=== PATIENT | female | born 1940 | race Caucasian/White ===

== ENCOUNTER 2018-08-08 06:10 | Day surgery (SDC) | payer OTHER, MEDICARE ==
[2018-08-07 14:39] LABS: Absolute Lymphocytes (CBC) 1.3 K/uL (0.7-4.9); Absolute Monocytes 0.5 K/uL (0.1-1.3); Absolute Neutrophil 4.9 K/uL (1.8-8.0); Basophils % 0.4 % (0-1.3); Eosinophils % 1.8 % (0-4.4); Hematocrit 37.9 % (36.0-45.0); Lymphocytes % 18.5 % (15.3-44.8); MCH 32.2 pg (27.0-35.0); MCV 92.9 fL (80-100); MPV 7.7 fL (7.6-11.3); Monocytes % 7.8 % (3.3-12.3); RBC Red Blood Cell Count 4.08 M/uL (3.86-4.86)
[2018-08-07 14:47] LABS: Protime INR 1.03
--- OUTSIDE RECORDS SUMMARY | 2018-08-08 06:20 | XMS REPORT | Continuity of Care Document ---
:1940 Author Organization Interface Problems Problem Status Onset Classification Date Comments Source Date Reported ISCHEMIC STROKE Active [address] LFLT TRANSFER#[id number] Atrial fibrillation Active Problem 06/17/2017 [place] [facility] Consult Personal history of Active Problem 06/17/2017 [place] transient ischemic Cardiology attack [TIA], and Consult cerebral infarction without residual deficits Palpitations Active Problem 06/17/2017 [place] [facility] Transient cerebral Active Problem 06/17/2017 [place] ischemic attack, Cardiology unspecified Consult Bradycardia, Active Problem 06/17/2017 [place] unspecified Cardiology Consult Personal history of Active Problem 06/17/2017 [place] transient ischemic Cardiology attack , and Consult cerebral infarction without residual deficits History of falling Active Problem 06/17/2017 [place] [facility] Consult Abnormal Active Problem 06/17/2017 [place] electrocardiogram Cardiology [ECG] [EKG] Consult Morbid obesity due Active Problem 06/17/2017 [place] to excess calories Cardiology Consult Arthropathy, Active Problem 06/17/2017 [place] unspecified Cardiology Consult Major depressive Active Problem 06/17/2017 [place] disorder, single Cardiology episode, unspecified Consult Chest pain, Active Problem 06/17/2017 [place] unspecified Cardiology Consult Shortness of breath Active Problem 06/17/2017 [place] [facility] Consult Constipation, Active Problem 06/17/2017 [place] unspecified Cardiology Consult Hypothyroidism, Active Problem 06/17/2017 [place] unspecified Cardiology Consult Hyperlipidemia, Active Problem 06/17/2017 [place] unspecified Cardiology Consult Chronic kidney Active Problem 06/17/2017 [place] disease, unspecified Cardiology Consult Insomnia, Active Problem 06/17/2017 [place] unspecified Cardiology Consult Nonrheumatic mitral Active Problem 06/17/2017 [place] insufficiency Cardiology Consult Paroxysmal atrial Active Problem 06/17/2017 [place] fibrillation Cardiology Consult 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 Essential Active Problem 06/17/2017 [place] hypertension Cardiology Consult Chronic kidney Active Problem 06/17/2017 [place] disease, Stage III Cardiology Consult Congestive 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 [place] failure, unspecified Cardiology Consult 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 [place] and chronic kidney Cardiology disease with heart Consult failure and stage 1 through stage 4 chronic kidney disease, or unspecified chronic kidney disease Hypertension Active Problem 06/17/2017 [place] essential benign Cardiology Consult 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 [place] stenosis of carotid Cardiology artery without Consult mention of cerebral infarction Insomnia, Active Problem 06/17/2017 [place] unspecified Cardiology Consult Mitral valve Active Problem 06/17/2017 [place] disorders Cardiology Consult Other and Active Problem 06/17/2017 [place] unspecified Cardiology hyperlipidemia Consult Unspecified Active Problem 06/17/2017 [place] hypothyroidism Cardiology Consult Obesity, unspecified Active Problem 06/17/2017 [place] [facility] Consult Other malaise and Active Problem 06/17/2017 [place] fatigue Cardiology Consult Shortness of breath Active Problem 06/17/2017 [place] [facility] Consult Chest pain, Active Problem 06/17/2017 [place] unspecified Cardiology Consult Chronic diastolic Active Problem 06/17/2017 [place] heart failure Cardiology Consult Unspecified Active Problem 06/17/2017 [place] constipation Cardiology Consult Impaired fasting Active Problem 06/17/2017 [place] blood sugar Cardiology Consult Overactive bladder Active Problem 06/17/2017 [place] [facility] Consult Anxiety disorder, Active Problem 06/17/2017 [place] unspecified Cardiology Consult Incontinence without Active Problem 06/17/2017 [place] sensory awareness Cardiology Consult Encounter for Active Problem 06/17/2017 [place] screening for Cardiology diabetes mellitus Consult Retention of urine, Active Problem 06/17/2017 [place] unspecified Cardiology Consult Hypertensive 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 [place] and chronic kidney Cardiology disease, benign, Consult with heart failure and with chronic kidney disease stage I through stage IV, or unspecified Depressive disorder, Active Problem 06/17/2017 [place] not elsewhere Cardiology classified Consult Urinary tract Active Problem 06/17/2017 [place] infection, site not Cardiology specified Consult Unspecified Active Problem 06/17/2017 [place] arthropathy, site Cardiology unspecified Consult Frequency of Active Problem 06/17/2017 [place] micturition Cardiology Consult Morbid obesity Active Problem 06/17/2017 [place] [facility] Consult Female genuine Active Problem 06/17/2017 [place] stress incontinence Cardiology Consult Nonspecific abnormal Active Problem 06/17/2017 [place] electrocardiogram Cardiology (EKG) Consult Palpitations Active Problem 06/17/2017 [place] [facility] Consult Other specified Active Problem 06/17/2017 [place] cardiac dysrhythmias Cardiology Consult Upper respiratory Active Problem 06/17/2017 [place] tract Cardiology hypersensitivity Consult reaction, site unspecified Unspecified Active Problem 06/17/2017 [place] transient cerebral Cardiology ischemia Consult Personal history of Active Problem 06/17/2017 [place] fall Cardiology Consult Acute upper Active Problem 06/17/2017 [place] respiratory Cardiology infections of Consult unspecified site Acid reflux disease Resolved Problem 11/28/2014 [facility] High cholesterol Resolved Problem 11/28/2014 [facility] Hyperlipidemia Resolved Problem 11/28/2014 [facility] Hypertension Resolved Problem 11/28/2014 [facility] Hypothyroidism Resolved Problem 11/28/2014 [facility] CVA Active [facility] Medications Medication Details Route Status Patient Ordering Order Source Instructions Provider Date Eliquis 1 tablet Orally Active 5 MG Orally [facility] [place] twice a day 2016 Cardiology Consult Edarbyclor 1 tablet Orally Active 40-25 MG [facility] [place] Orally Once a 2017 Cardiology day Consult Edarbyclor 1 tablet Orally Active 40-25 MG [facility] [place] Orally Once a 2016 Cardiology day Consult Dofetilide 1 capsule Orally Active 500 MCG [facility] [place] Orally Twice 2017 Cardiology a day Consult Cipro 1 tablet Orally Active 500 MG Orally [facility] [place] Twice a day 2015 Cardiology Consult Warfarin 5 mg, 1 tab, Inactive [facility] Route: PO, 2014 Medical Drug form: Center TAB, Daily, Dosing Weight 114.318, kg, Start date: 11/26/14 12:03:00, Duration: 1 doses or times, Stop date: 11/26/14 12:03:00Notes : Nurse to ensure documentation of patient education per anticoagulati on policy. Avoid large intake of vitamin-K containing foods diet. (Same As: Coumadin) valsartan 40 mg 40 mg=1 tab, Active 11/26[facility] oral tablet PO, Q12H, # 2015 Medical 60 tab, 3 Center Refill(s) atorvastatin 40 40 mg=1 tab, Active 11/26[facility] [place] mg oral tablet PO, Bedtime, 2015 Medical # 30 tab, 3 Center Refill(s) clopidogrel 75 mg 75 mg=1 tab, Active 11/26[facility] oral tablet PO, Daily, # 2015 Medical 30 tab, 0 Center Refill(s) warfarin 5 mg 5 mg, PO, Active 11/26[facility] oral tablet Daily, # 2 2015 Medical tab, 0 Center Refill(s) Atenolol 25 MG 12.5 mg=0.5 Active 11/26[facility] Oral Tablet tab, PO, 2015 Medical Daily, 0 Center Refill(s) valsartan 40 mg, 1 tab, Inactive [place] Route: PO, 2014 Medical Drug form: [place] TAB, Q12H, Dosing Weight 114.318, kg, Start date: 11/26/14 9:00:00, Duration: 30 day, Stop date: 12/25/14 21:00:00Notes : Same as [place] Protonix 40 mg, 1 tab, No Longer [place] Route: PO, Active 2014 Medical Drug form: [place] ECTAB, Before Dinner, Start date: 11/25/14 16:30:00, Duration: 30 day, Stop date: 12/24/14 16:30:00Notes : Tablet should not be chewed or crushed. (Same as: Protonix) Atenolol 12.5 mg, 0.5 No Longer [place] tab, Route: Active 2014 Medical PO, Drug Center form: TAB, Daily, Dosing Weight 114.318, kg, Start date: 11/25/14 9:00:00, Duration: 30 day, Stop date: 12/24/14 9:00:00Notes: (Same As:Tenormin) valsartan 320 mg, No Longer [facility] Route: PO, Active 2014 Medical Drug form: [place] TAB, Daily, Dosing Weight 114.318, kg, Start date: 11/25/14 9:00:00, Duration: 30 day, Stop date: 12/24/14 9:00:00 Thyroxine 100 No Longer [facility] microgram, 1 Active 2014 Medical tab, Route: [place] PO, Drug form: TAB, Q630AM, Dosing Weight 114.318, kg, Start date: 11/25/14 6:30:00, Duration: 30 day, Stop date: 12/24/14 6:30:00Notes: Take 1 hour before or 2 hours after meal; Enteral feeds may interefere with the absorption of this medication. (Same as:Levothroid , Synthroid) heparin, porcine 7,500 unit, No Longer [place] 1.5 mL, Active 2014 Medical Route: SUB-Q, [place] Drug form: INJ, Q8H, Dosing Weight 114.318, kg, Start date: 11/24/14 22:00:00, Duration: 30 day, Stop date: 12/24/14 16:00:00Notes : porcine heparin Plavix 75 mg, 1 tab, No Longer [facility] Route: PO, Active 2014 Medical Drug form: Center TAB, Daily, Dosing Weight 114.318, kg, Start date: 11/24/14 22:00:00, Duration: 30 day, Stop date: 12/24/14 9:00:00Notes: (Same As: Plavix) Tylenol 650 mg, 2 No Longer [facility] tab, Route: Active 2014 Medical PO, Drug Center form: TAB, Q6H, Dosing Weight 114.318, kg, PRN Pain, Start date: 11/24/14 21:16:00, Duration: 30 day, Stop date: 12/24/14 21:15:00Notes : Do not exceed 4 gm/day. (Same as: Tylenol) atorvastatin 40 mg, 1 tab, No Longer [facility] Route: PO, Active 2014 Medical Drug form: Center TAB, Bedtime, kg, Start date: 11/24/14 21:00:00, Duration: 30 day, Stop date: 12/23/14 21:00:00Notes : (Same as: Lipitor) Bupropion 150 mg, 1 No Longer [facility] tab, Route: Active 2014 Medical PO, Drug Center form: ERTAB, BID, Dosing Weight 114.318, kg, Start date: 11/24/14 17:00:00, Duration: 30 day, Stop date: 12/24/14 9:00:00Notes: (Do not crush) (Same As: Wellbutrin SR) valsartan 40 mg, Route: Inactive [facility] PO, BID, 2014 Medical Dosing Weight Center 114.318, kg, Start date: 11/24/14 17:00:00, Duration: 30 day, Stop date: 12/24/14 9:00:00 Triiodothyronine 10 microgram, No Longer [facility] 2 tab, Route: Active 2014 Medical PO, Drug Center form: TAB, QAM, Dosing Weight 114.318, kg, Priority: NOW, Start date: 11/24/14 15:35:00, Duration: 30 day, Stop date: 12/24/14 9:00:00Notes: (Same as: Cytomel) Atenolol 100 MG 50 mg=0.5 No Longer [facility] Oral Tablet tab, PO, BID, Active 2015 Medical # 30 tab, 0 Center Refill(s) pravastatin 40 mg 40 mg=1 tab, No Longer [facility] oral tablet PO, Bedtime, Active 2015 Medical # 30 tab, 0 Center Refill(s) Furosemide 40 MG 40 mg=1 tab, No Longer [place] Oral Tablet PO, Daily, # Active 2015 Medical [Lasix] 30 tab, 0 Center Refill(s) spironolactone 25 25 mg=1 tab, No Longer [facility] mg oral tablet PO, Daily, # Active 2014 Medical 60 tab, 0 Center Refill(s) Potassium 20 mEq=1 tab, No Longer [place] Chloride 20 MEQ PO, Daily, 0 Active 2015 Medical Extended Release Refill(s) Center Tablet omeprazole 40 mg 40 mg=1 cap, Active [place] oral delayed PO, Daily, # 2015 Medical release capsule 30 cap, 0 Center Refill(s) Metolazone 5 MG 5 mg=1 tab, No Longer [facility] Oral Tablet PO, Daily, # Active 2015 Medical 30 tab, 0 Center Refill(s) liothyronine 5 10 Active [facility] mcg oral tablet microgram=2 2014 Medical tab, PO, QAM, Center # 30 tab, 0 Refill(s) Fenofibrate 160 160 mg=1 tab, No Longer [facility] MG Oral Tablet PO, Daily, # Active 2015 Medical 30 tab, 0 Center Refill(s) Zolpidem tartrate 10 mg=1 tab, Active [place] 10 MG Oral Tablet PO, Bedtime, 2015 Medical [Ambien] for sleep, 0 Center Refill(s) buPROPion 150 150 mg=1 tab, Active [facility] mg/24 hours oral PO, BID, # 30 2015 Medical extended release tab, 0 Center tablet Refill(s) Albuterol 0.09 2 puff, No Longer [facility] MG/ACTUAT Metered INHALATION, Active 2015 Medical Dose Inhaler Q6H, as Center [Ventolin] needed for wheezing, # 17 gm, 0 Refill(s) levothyroxine 100 100 Active [place] mcg (0.1 mg) oral microgram=1 2014 Medical tablet tab, PO, QA, Center # 30 tab, 0 Refill(s) doxazosin 4 mg 4 mg=1 tab, Active [facility] oral tablet PO, Daily, # 2015 Medical 30 tab, 0 Center Refill(s) valsartan 320 mg 320 mg=1 tab, No Longer [facility] oral tablet PO, Daily, # Active 2014 Medical 30 tab, 0 Center Refill(s) Triiodothyronine 5 microgram, Inactive [facility] 1 tab, Route: 2014 Medical PO, Drug Center form: TAB, Daily, Dosing Weight 114.318, kg, Start date: 11/24/14 14:09:00, Duration: 30 day, Stop date: 12/24/14 9:00:00Notes: (Same as: Cytomel) Reglan 5 mg, 1 mL, Inactive [facility] Route: IV, 2014 Medical Drug form: [place] INJ, ONCE, Dosing Weight 114.318, kg, Start date: 11/24/14 11:44:00, Stop date: 11/24/14 11:44:00Notes : (Same as: Reglan) Magnesium Sulfate 2 gm, 50 mL, Inactive [facility] Route: IVPB, 2014 Medical Drug form: [place] INJ, ONCE, Dosing Weight 114.318, kg, Total dose=2 gm, Start date: 11/24/14 11:27:00, Duration: 1 doses or times, Stop date: 11/24/14 11:27:00 pneumococcal 0.5 ml, Inactive [facility] capsular Route: IM, 2014 Medical polysaccharide Drug Form: [place] type 1 vaccine / INJ, Daily, pneumococcal Start date: capsular 11/24/14 polysaccharide 9:00:00, Stop type 10A vaccine date: / pneumococcal 11/24/14 capsular 23:59:00Notes polysaccharide : (Same as: type 11A vaccine Pneumovax 23) / pneumococcal Refrigerate capsular polysaccharide type 12F vaccine / pneumococcal capsular polysacchar Saline Flush 0.9% 10 ml, Route: No Longer [facility] IVP, Drug Active 2014 Medical Form: INJ, Center kg, Q12H, Start date: 11/24/14 9:00:00, Duration: 30 day, Stop date: 12/23/14 21:00:00Notes : (Same as: BD Posiflush) Versed 0.5 mg, 0.5 Inactive [facility] mL, Route: 2014 Medical IVP, Drug Center form: INJ, ONCE, Dosing Weight 114.318, kg, Start date: 11/24/14 8:31:00, Stop date: 11/24/14 8:31:00Notes: (Same as: Versed) Pravastatin 40 mg=1 tab, Inactive [facility] Sodium 40 MG Oral PO, Bedtime, 2014 Medical Tablet # 30 tab, 0 Center [Pravachol] Refill(s) aspirin 0 Refill(s) Inactive [facility] 2014 Medical Center Fenofibrate 160 160 mg=1 tab, Inactive [facility] MG Oral Tablet PO, Daily, # 2015 Medical 30 tab, 0 Center Refill(s) Atenolol 0 Refill(s) Inactive [facility] 2014 [facility] valsartan 320 mg 320 mg=1 tab, Inactive [facility] oral tablet PO, Daily, # 2015 Medical 30 tab, 0 Center Refill(s) Potassium 0 Refill(s) Inactive [facility] Chloride 20 MEQ 2014 Medical Extended Release Center Tablet Metolazone 5 MG 5 mg=1 tab, Inactive [facility] Oral Tablet PO, Daily, # 2015 Medical 30 tab, 0 Center Refill(s) Furosemide 40 MG 40 mg=1 tab, Inactive [facility] Oral Tablet PO, Daily, # 2015 Medical [Lasix] 30 tab, 0 Center Refill(s) liothyronine 5 5 microgram=1 Inactive [facility] mcg oral tablet tab, PO, 2014 Medical Daily, # 30 Center tab, 0 Refill(s) Omeprazole 0 Refill(s) Inactive [facility] 2014 Medical Center spironolactone 25 0 Refill(s) Inactive [facility] mg oral tablet 2014 [facility] Center Zofran 4 mg, 2 mL, Inactive [facility] Route: IVP, 2014 Medical Drug form: Center INJ, ONCE, Dosing Weight 114.318, kg, Start date: 11/24/14 7:08:00, Stop date: 11/24/14 7:08:00Notes: (Same as: Zofran) Tylenol 650 mg, 2 Inactive [facility] tab, Route: 2015 Medical PO, Drug Center form: TAB, Q6H, kg, PRN Pain 1-3/Temp > 99.5 F, Start date: 11/24/14 0:48:00, Stop date: 12/24/14 0:47:00Notes: Do not exceed 4 gm/day. (Same as: Tylenol) Sodium Chloride 1,000 mL, No Longer [facility] 0.154 MEQ/ML Rate: 75 Active 2014 Medical Injectable ml/hr, Infuse Center Solution over: 13.3 hr, Route: IV, Total Volume: 1,000, Start date: 11/23/14 23:06:00, Duration: 30 day, Stop date: 12/23/14 23:05:00 Saline Flush 0.9% 10 ml, Route: No Longer [facility] IVP, Drug Active 2014 Medical Form: INJ, Center kg, PRN, PRN Line Flush, Start date: 11/23/14 22:58:00, Duration: 30 day, Stop date: 12/23/14 22:57:00Notes : (Same as: BD Posiflush) Acetaminophen 650 mg, 2 No Longer [facility] tab, Route: Active 2014 Medical PO, Drug Center form: TAB, Q4H, kg, PRN Pain 1-3/Temp > 99.5 F, Start date: 11/23/14 22:58:00, Duration: 30 day, Stop date: 12/23/14 22:57:00Notes : Do not exceed 4 gm/day. (Same as: Tylenol) Doxazosin TAKE ONE NA No Longer 4 Ali Chávez Mesylate TABLET BY Active Cardiology MOUTH DAILY Consult Tikosyn TAKE ONE NA No Longer 500 Ali Chávez CAPSULE BY Active Cardiology MOUTH TWICE A Consult DAY Allergies, Adverse Reactions, Alerts Substance Category Reaction Severity Reaction Status Date Comments Source type Reported Immunizations Immunization Date Given Site Status Last Updated Comments Source pneumococcal 11/24/2014 [facility] Results Order Name Results Value Reference Date Interpretation Comments Source Range CHEM PANEL Magnesium Lvl 2.1 mg/dL 1.8 - 2.4 11/26 [facility] CHEM PANEL Phosphorus 2.8 mg/dL 2.5 - 4.5 11/26 2014 [facility] CHEM PANEL eGFR 40 11/26 1Result Comment: The eGFR is calculated using the CKD-EPI formula. In most young, healthy individuals the eGFR will be >90 mL/ min/1.73m2. The eGFR declines with age. An eGFR of 60-89 may be normal in [facility] mL/min/1.7 some populations, particularly the elderly, for whom the CKD-EPI formula has not been extensively validated. Use of the eGFR is not recommended in the following populations: [address] Individuals with unstable creatinine concentrations, including patients and those with serious co-morbid conditions. Patients with extremes in muscle mass or diet. The data above are obtained from the National Kidney Disease Education Program (NKDEP) which additionally recommends that when the eGFR is used in patients with extremes of body mass index for purposes of drug dosing, the eGFR should be multiplied by the estimated BMI. CHEM PANEL Glucose Lvl 80 mg/dL 70 - 99 11/26 4Interpretive Data: Adult reference range values reflect the clinical guidelines of the [place] [employer]. [facility] CHEM PANEL BUN 18 mg/dL 7 - 22 11/26 [facility] CHEM PANEL Creatinine 1.3 mg/dL 0.5 - 1.4 11/26 [facility] CHEM PANEL Sodium Lvl 136 meq/L 135 - 145 11/26 [facility] CHEM PANEL Chloride Lvl 102 meq/L 95 - 109 11/26 [facility] CHEM PANEL Potassium Lvl 3.5 meq/L 3.5 - 5.1 11/26 [facility] CHEM PANEL Calcium Lvl 9.0 mg/dL 8.5 - 10.5 11/26 [facility] CHEM PANEL CO2 25 meq/L 24 - 32 11/26 [facility] CHEM PANEL AGAP 12.5 meq/L 10.0 - 11/26 20.0 [facility] HEMATOLOGY RDW 13.1 % 11.5 - 11/26 14.5 /2014 [facility] HEMATOLOGY MCH 32.4 pg 27.0 - 02/ 31.0 /2014 [facility] HEMATOLOGY MCV 93.5 fL 80.0 - 02 98.0 /2014 [facility] HEMATOLOGY MCHC 34.6 g/dL 32.0 - 02/ 36.0 /2014 [facility] HEMATOLOGY Hct 33.6 % 36.0 - / 48.0 /2014 [facility] HEMATOLOGY Hgb 11.6 g/dL 12.0 - 02 16.0 /2014 [facility] HEMATOLOGY RBC 3.60 M/CMM 4.20 - 02 5.40 /2014 [facility] HEMATOLOGY WBC 4.6 K/CMM 3.7 - 10.4 11/26 [facility] HEMATOLOGY MPV 8.3 fL 7.4 - 10.4 11/[address] [place] [address] HEMATOLOGY Platelet 149 K/CMM 133 - [address] HEMATOLOGY Segs 62.3 % 45.0 - 02 [facility] 75.0 [facility] HEMATOLOGY Lymphocytes # 1.2 K/CMM 1.0 - 5.5 02 [facility] HEMATOLOGY Monocytes # 0.4 K/CMM 0.0 - 0.[address] [place] [address] HEMATOLOGY Eosinophils 3.0 % 0.0 - 4.0 02 [facility] HEMATOLOGY Lymphocytes 26.2 % 20.0 - 11/26 [facility] 40.0 [facility] HEMATOLOGY Segs-Bands # 2.9 K/CMM 1.5 - 8.1 11/[address] HEMATOLOGY Basophils 0.5 % 0.0 - 1.0 02/ [facility] HEMATOLOGY Monocytes 8.0 % 2.0 - 12.0 11/26 [facility] [address] [place] [address] HEMATOLOGY Eosinophils # 0.1 K/CMM 0.0 - 0.5 11/[address] CHEM PANEL Phosphorus 3.1 mg/dL 2.5 - 4.5 11/[address] CHEM PANEL eGFR 34 02 2Result Comment: The eGFR is calculated using the CKD-EPI formula. In most young, healthy individuals the eGFR will be >90 mL/ min/1.73m2. The eGFR declines with age. An eGFR of 60-89 may be normal in [facility] mL/min/1.7 /2014 some populations, particularly the elderly, for whom the CKD-EPI formula has not been extensively validated. Use of the eGFR is not recommended in the following populations: [address] Individuals with unstable creatinine concentrations, including patients and those with serious co-morbid conditions. Patients with extremes in muscle mass or diet. The data above are obtained from the National Kidney Disease Education Program (NKDEP) which additionally recommends that when the eGFR is used in patients with extremes of body mass index for purposes of drug dosing, the eGFR should be multiplied by the estimated BMI. CHEM PANEL CO2 25 meq/L 24 - 32 11/25 [facility] CHEM PANEL AGAP 12.8 meq/L 10.0 - 11/25 20.0 [facility] CHEM PANEL Calcium Lvl 8.7 mg/dL 8.5 - 10.5 11/25 2014 [facility] CHEM PANEL Chloride Lvl 104 meq/L 95 - 109 11/25 2014 [facility] CHEM PANEL BUN 23 mg/dL 7 - 22 11/25 [facility] CHEM PANEL Sodium Lvl 138 meq/L 135 - 145 11/25 [facility] CHEM PANEL Glucose Lvl 82 mg/dL 70 - 99 11/25 5Interpretive Data: Adult reference range values reflect the clinical guidelines of the [place] [employer]. [facility] CHEM PANEL Creatinine 1.5 mg/dL 0.5 - 1.4 11/25 [facility] CHEM PANEL Potassium Lvl 3.8 meq/L 3.5 - 5.1 11/25 [facility] CHEM PANEL Magnesium Lvl 2.7 mg/dL 1.8 - 2.4 11/25 [facility] HEMATOLOGY Segs 63.1 % 45.0 - 11/25 75.0 [facility] HEMATOLOGY Lymphocytes 27.1 % 20.0 - 02 40.0 [facility] HEMATOLOGY Monocytes 7.2 % 2.0 - 12.0 11/25 2014 [facility] HEMATOLOGY Eosinophils # 0.1 K/CMM 0.0 - 0.5 11/25 [facility] HEMATOLOGY Eosinophils 2.2 % 0.0 - 4.0 11/25 [facility] HEMATOLOGY Basophils 0.4 % 0.0 - 1.0 11/25 [facility] HEMATOLOGY Segs-Bands # 3.1 K/CMM 1.5 - 8.1 11/25 [facility] HEMATOLOGY Monocytes # 0.3 K/CMM 0.0 - 0.8 11/25 [facility] HEMATOLOGY Lymphocytes # 1.3 K/CMM 1.0 - 5.5 11/25 [facility] HEMATOLOGY MPV 8.5 fL 7.4 - 10.4 11/25 [facility] HEMATOLOGY MCH 31.6 pg 27.0 - 11/25 31.0 [facility] HEMATOLOGY MCV 93.4 fL 80.0 - 11/25 [facility] 98.0 /2014 [facility] HEMATOLOGY Hct 33.2 % 36.0 - 11/25 [facility] 48.0 /2014 [facility] HEMATOLOGY Platelet 151 K/CMM 133 - 450 11/25 [facility] HEMATOLOGY RDW 13.1 % 11.5 - 11/25 14.5 [facility] HEMATOLOGY MCHC 33.8 g/dL 32.0 - 11/25 36.0 /2014 [facility] HEMATOLOGY Hgb 11.2 g/dL 12.0 - 02 16.0 [facility] HEMATOLOGY RBC 3.56 M/CMM 4.20 - 11/25 5.40 /2014 [facility] HEMATOLOGY WBC 4.9 K/CMM 3.7 - 10.4 11/25 [facility] HEMATOLOGY INR 1.14 0.85 - 11/25 7Interpretive Data: RECOMMENDED RANGES FOR PROTIME INR: [facility] 1.17 2.0-3.0 for most medical and surgical thromboembolic states. Medical 2.5-3.5 for artificial heart valves and recurrent embolism. Center INR SHOULD BE USED ONLY FOR PATIENTS ON STABLE ANTICOAGULANT THERAPY. HEMATOLOGY PTT 28.5 s 22.9 - 02 9Interpretive [facility] 35.8 /2014 Data: Heparin [facility] Therapeutic Center Range: 57 - 92 Seconds HEMATOLOGY PT 14.7 s 12.0 - 02/03 [facility] 14.7 /2014 [facility] THYROID TSH 3.190 0.360 - 11/25 [facility] PANEL uIU/mL 3.740 /2014 Medical Center Neck wo Neck wo EXAM: MRI BRAIN 11/24 - [facility] contrast contrast MRA /2014 - Medical MRA EXAM: MRA BRAIN This report was dictated by a Commercial Housekeeper/ Fellow. I have personally reviewed the images as Center well as the Resident's interpretation and agree with the findings. EXAM: MRA NECK Read by: Katherine Joaquin DO Resident: Katherine Joaquin DO Dictated Date/time: 11/24/14 10:59 Electronically Signed by: Elva Jurado MD 11/24/14 14:56 FINAL REPORT DATE: 11/24/2014 COMPARISON: None available. CLINICAL INDICATION: Aphasia TECHNIQUE: Multiecho multiplanar images were obtained without contrast including axial FLAIR, T2 gradient echo and diffusion weighted imaging with ADC mapping. 3D MRA time of flight images of the head a nd neck were also provided. 3D MIP (maximum intensity projection) reconstructions were performed. FINDINGS: Confluent area of restricted diffusion with subtle corresponding T2/FLAIR hyperintensity consistent with acute infarct is seen within the left insula and left temporoparietal lobe. There is evidence of slow flow within the left MCA. Few micro hemorrhages are seen within the right thalamus and left posterior temporal lobe, likely hypertensive in nature. The ventricles and sulci are normal in size. The basal cisterns are patent. No extra-axial collection is present. MRA of the brain demonstrates occlusion of a left M2 segment branch. The remainder of the cerebral arteries are normal in caliber. No aneurysm is identified. Right type DIRECTOR RISK is present, a normal variant. There is normal origin of the 3 great vessels from the aortic arch. The carotid bifurcations in the neck are normal. There is no carotid stenosis. The vertebral arteries are normal. The basilar artery i s intact. 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 IMPRESSION: 1. 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 2. Occlusion of a left M2 segment branch. 3. Normal MRA of the neck. Brain wo Brain wo EXAM: MRI BRAIN 11/24 - [facility] contrast contrast MRA /2014 - Medical MRA EXAM: MRA BRAIN This report was dictated by a Commercial Housekeeper/ Fellow. I have personally reviewed the images as Center well as the Resident's interpretation and agree with the findings. EXAM: MRA NECK Read by: Katherine Joaquin DO Resident: Katherine Joaquin DO Dictated Date/time: 11/24/14 10:59 Electronically Signed by: Elva Jurado MD 11/24/14 14:56 FINAL REPORT DATE: 11/24/2014 COMPARISON: None available. CLINICAL INDICATION: Aphasia TECHNIQUE: Multiecho multiplanar images were obtained without contrast including axial FLAIR, T2 gradient echo and diffusion weighted imaging with ADC mapping. 3D MRA time of flight images of the head a nd neck were also provided. 3D MIP (maximum intensity projection) reconstructions were performed. FINDINGS: Confluent area of restricted diffusion with subtle corresponding T2/FLAIR hyperintensity consistent with acute infarct is seen within the left insula and left temporoparietal lobe. There is evidence of slow flow within the left MCA. Few micro hemorrhages are seen within the right thalamus and left posterior temporal lobe, likely hypertensive in nature. The ventricles and sulci are normal in size. The basal cisterns are patent. No extra-axial collection is present. MRA of the brain demonstrates occlusion of a left M2 segment branch. The remainder of the cerebral arteries are normal in caliber. No aneurysm is identified. Right type DIRECTOR RISK is present, a normal variant. There is normal origin of the 3 great vessels from the aortic arch. The carotid bifurcations in the neck are normal. There is no carotid stenosis. The vertebral arteries are normal. The basilar artery i s intact. 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 IMPRESSION: 1. 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 2. Occlusion of a left M2 segment branch. 3. Normal MRA of the neck. Brain wo Brain wo EXAM: MRI BRAIN 11/24 - [facility] contrast contrast MRI /2014 - Medical MRI EXAM: MRA BRAIN This report was dictated by a Commercial Housekeeper/ Fellow. I have personally reviewed the images as Center well as the Resident's interpretation and agree with the findings. EXAM: MRA NECK Read by: Katherine Joaquin DO Resident: Katherine Joauqin DO Dictated Date/time: 11/24/14 10:42 Electronically Signed by: Elva Jurado MD 11/25/14 10:45 FINAL REPORT DATE: 11/24/2014 COMPARISON: None available. CLINICAL INDICATION: Aphasia TECHNIQUE: Multiecho multiplanar images were obtained without contrast including axial FLAIR, T2 gradient echo and diffusion weighted imaging with ADC mapping. 3D MRA time of flight images of the head a nd neck were also provided. 3D MIP (maximum intensity projection) reconstructions were performed. FINDINGS: Confluent area of restricted diffusion with subtle corresponding T2/FLAIR hyperintensity consistent with acute infarct is seen within the left insula and left temporoparietal lobe. There is evidence of slow flow within the left MCA. Few micro hemorrhages are seen within the right thalamus and left posterior temporal lobe, likely hypertensive in nature. The ventricles and sulci are normal in size. The basal cisterns are patent. No extra-axial collection is present. MRA of the brain demonstrates occlusion of a left M2 segment branch. The remainder of the cerebral arteries are normal in caliber. No aneurysm is identified. Right type DIRECTOR RISK is present, a normal variant. There is normal origin of the 3 great vessels from the aortic arch. The carotid bifurcations in the neck are normal. There is no carotid stenosis. The vertebral arteries are normal. The basilar artery i s intact. 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 IMPRESSION: 1. 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 2. Occlusion of a left M2 segment branch. 3. Normal MRA of the neck. URINE AND UA <=1.0 0.1 - 1.0 11/24 [facility] Urobilinogen mg/dL /[address] [place] [address] URINE AND UA Renal Epi 7 /LPF <=0 /LPF 11/[address] URINE AND UA Sq Epi Moderate Few /LPF 11/24 [facility] /LPF /[address] [place] [address] URINE AND UA WBC 2 /HPF 0 - 5 11/[address] URINE AND UA Nitrite Negative Negative 11/[address] (11/24/14 2:06 AM) [place] URINE AND UA Leuk Est Negative Negative 11/[address] (11/24/14 2:06 AM) [place] URINE AND UA Blood Negative Negative 11/[address] (11/24/14 2:06 AM) [place] URINE AND UA Protein Negative Negative 11/24 [facility] mg/dL mg/dL /2014 [facility] URINE AND UA pH 6.5 5.0 - 8.0 11/[address] URINE AND UA Glucose Negative Negative 11/24 [facility] mg/dL mg/dL /[address] [place] [address] URINE AND UA Bili Negative Negative 11/[address] [place] (11/24/14 2:06 AM) URINE AND UA Ketones Negative Negative 11/24 [facility] mg/dL mg/dL /2014 [facility] URINE AND UA Spec Grav 1.009 <=1.030 11/24 [facility] URINE AND UA Turbidity Clear Clear 11/24 [facility] (11/24/14 2:06 AM) [place] URINE AND UA Color Yellow Yellow 11/24 [facility] *NA* [place] (11/24/14 2:06 AM) CHEM PANEL A/G Ratio 1.2 0.7 - 1.6 11/24 [facility] CHEM PANEL Globulin 3.2 g/dL 2.0 - 4.0 11/24 [facility] CHEM PANEL B/C Ratio 22 6 - 25 11/24 [facility]2014 [facility] CHEM PANEL AGAP 9.8 meq/L 10.0 - 11/24 [facility] 20.0 [facility] CHEM PANEL eGFR 29 11/24 3Result Comment: The eGFR is calculated using the CKD-EPI formula. In most young, healthy individuals the eGFR will be >90 mL/ min/1.73m2. The eGFR declines with age. An eGFR of 60-89 may be normal in [facility] mL/min/1.7 some populations, particularly the elderly, for whom the CKD-EPI formula has not been extensively validated. Use of the eGFR is not recommended in the following populations: [address] Individuals with unstable creatinine concentrations, including patients and those with serious co-morbid conditions. Patients with extremes in muscle mass or diet. The data above are obtained from the National Kidney Disease Education Program (NKDEP) which additionally recommends that when the eGFR is used in patients with extremes of body mass index for purposes of drug dosing, the eGFR should be multiplied by the estimated BMI. CHEM PANEL Glucose Lvl 125 mg/dL 70 - 99 11/24 6Interpretive Data: Adult reference range values reflect the clinical guidelines of the [place] [employer]. [facility] CHEM PANEL Calcium Lvl 8.7 mg/dL 8.5 - 10.5 11/24 [facility] CHEM PANEL ALT 29 unit/L 0 - 65 11/24 [facility] CHEM PANEL AST 17 unit/L 0 - 37 11/[address] CHEM PANEL Albumin Lvl 3.7 g/dL 3.5 - 5.0 11/[address] CHEM PANEL Total Protein 6.9 g/dL 6.4 - 8.4 11/[address] CHEM PANEL CO2 28 meq/L 24 - 32 11/[address] CHEM PANEL Chloride Lvl 103 meq/L 95 - 109 11/[address] CHEM PANEL Potassium Lvl 3.8 meq/L 3.5 - 5.1 11/[address] CHEM PANEL Sodium Lvl 137 meq/L 135 - 145 11/[address] CHEM PANEL Creatinine 1.7 mg/dL 0.5 - 1.4 11/[address] CHEM PANEL BUN 37 mg/dL 7 - 22 11/[address] CHEM PANEL Alk Phos 37 unit/L 39 - 136 11/[address] CHEM PANEL Bili Total 0.4 mg/dL 0.2 - 1.3 11/[address] HEMATOLOGY Monocytes # 0.4 K/CMM 0.0 - 0.8 11/[address] HEMATOLOGY Lymphocytes # 1.1 K/CMM 1.0 - 5.5 11/[address] HEMATOLOGY Eosinophils # 0.1 K/CMM 0.0 - 0.5 11/[address] HEMATOLOGY Segs 70.9 % 45.0 - 02 [facility] 75.0 /2014 [facility] HEMATOLOGY Monocytes 6.7 % 2.0 - 12.0 11/[address] HEMATOLOGY Lymphocytes 19.7 % 20.0 - 02/ [facility] 40.0 /2014 [facility] HEMATOLOGY Eosinophils 2.3 % 0.0 - 4.[address] HEMATOLOGY Segs-Bands # 4.0 K/CMM 1.5 - 8.1 11/[address] HEMATOLOGY Basophils 0.4 % 0.0 - 1.0 11/[address] HEMATOLOGY PTT 28.2 s 22.9 - 02/ 10Interpretiv [facility] 35.8 /2015 e Data: [facility] Center Therapeutic Range: 57 - 92 Seconds HEMATOLOGY PT 13.9 s 12.0 - 11/24 [facility] 14.7 /2014 [facility] HEMATOLOGY INR 1.07 0.85 - 11/24 8Interpretive Data: RECOMMENDED RANGES FOR PROTIME INR: [facility] 1.17 2.0-3.0 for most medical and surgical thromboembolic states. Medical 2.5-3.5 for artificial heart valves and recurrent embolism. Center INR SHOULD BE USED ONLY FOR PATIENTS ON STABLE ANTICOAGULANT THERAPY. HEMATOLOGY MPV 8.8 fL 7.4 - 10.4 11/24 [facility] HEMATOLOGY WBC 5.7 K/CMM 3.7 - 10.4 11/24 [facility] HEMATOLOGY MCV 94.9 fL 80.0 - 11/24 [facility] 98.0 [facility] HEMATOLOGY RBC 3.73 M/CMM 4.20 - 11/24 [facility] 5.40 [facility] HEMATOLOGY RDW 13.3 % 11.5 - 11/24 [facility] 14.5 /2014 [facility] HEMATOLOGY Hgb 12.1 g/dL 12.0 - 11/24 [facility] 16.0 [facility] HEMATOLOGY Hct 35.3 % 36.0 - 11/24 [facility] 48.0 [facility] HEMATOLOGY Platelet 158 K/CMM 133 - 450 11/24 [facility] HEMATOLOGY MCHC 34.2 g/dL 32.0 - 11/24 [facility] 36.0 [facility] HEMATOLOGY MCH 32.5 pg 27.0 - 11/24 [facility] 31.0 [facility] LIPIDS CHD Risk 2.81 3.90 - 11/24 [facility] 5.80 [facility] LIPIDS VLDL 26 11/24 [facility] LIPIDS LDL 59 mg/dL <=99 mg/dL 11/24 [facility] (Calculated) [facility] LIPIDS Trig 128 mg/dL <=149 11/24 [facility] mg/dL [facility] LIPIDS HDL 47 mg/dL >=61 mg/dL 11/24 [facility] LIPIDS Chol 132 mg/dL <=199 11/24 [facility] mg/dL [facility] SPECIAL Hgb A1C 5.6 % <=5.6 % 11/24 [facility] CHEMISTRY [facility] Vital Signs Vital Sign Value Date Comments Source Respitory Rate 16 11/26/2014 [facility] Systolic (mm Hg) 172 11/26/2014 [facility] Diastolic (mm Hg) 79 11/26/2014 [facility] Heart Rate 57 11/26/2014 [facility] Temperature Oral (F) 97.5 F 11/26/2014 [facility] Temperature Oral (F) 97.5 F 11/26/2014 [facility] Heart Rate 69 11/26/2014 [facility] Diastolic (mm Hg) 79 11/26/2014 [facility] Respitory Rate 18 11/26/2014 [facility] Systolic (mm Hg) 166 11/26/2014 [facility] Respitory Rate 16 11/26/2014 [facility] Systolic (mm Hg) 157 11/26/2014 [facility] Diastolic (mm Hg) 66 11/26/2014 [facility] Heart Rate 65 11/24/2014 [facility] Weight 114.318 11/24/2014 [facility] BMI Calculated 43.26 11/24/2014 [facility] Height 162.56 cm 11/24/2014 [facility] Encounters Location Location Encounter Encounter Reason Attending ADM DC Status Source Details Type Number For Provider Date Date Visit [facility] [id number] [facility] Viky 11/24 11/26 [facility] /2014 [facility] PT/INR 3.0 [id number] 12/19 12/19 [facility] [id number]- /2014 [facility] [id number] y [facility] [place] PT/INR 3.0 [id number] 12/19 12/19 [facility] [id number]- /2014 [facility] [id number] [facility] [place] PT/INR 3.0 [id number] 12/19 12/19 [facility] [id number]- /2014 [facility] [id number] [facility] [place] PT/INR 3.0 [id number] 12/19 12/19 [facility] [id number]- /2014 [facility] [id number] y Consult [place] Unknown [id number] 12/19 12/19 [facility] [id number]- /2014 [facility] [id number] [facility] [place] Unknown [id number] 12/19 12/19 [facility] [id number]- /2014 [facility] [id number] [facility] [place] Unknown [id number] 12/19 12/19 [facility] [id number]- /2014 [facility] [id number] [facility] [place] Unknown [id number] 12/19 12/19 [facility] [id number]- /2014 [facility] [id number] [facility] [place] PT/INR 3.0 [id number] 12/19 12/19 [facility] [id number]- /2014 [facility] [id number] [facility] [place] PT/INR 3.0 [id number] 12/19 12/19 [facility] [id number]- /2014 [facility] [id number] [facility] [place] Unknown [id number] 12/19 12/19 [facility] [id number]- /2014 [facility] [id number] y [facility] [place] Unknown [id number] 12/19 12/19 [facility] [id number]- /2014 [facility] [id number] [facility] [place] Unknown [id number] 03/23 03/23 [facility] [id number]- /2014 [facility] [id number] [facility] [place] Unknown [id number] 03/23 03/23 [facility] [id number]- /2014 [facility] [id number] [facility] [place] Unknown [id number] 03/23 03/23 [facility] [id number]- /2014 [facility] [id number] y [facility] [place] Unknown [id number] 03/23 03/23 [facility] [id number]- /2014 [facility] [id number] [facility] [place] Unknown [id number] 03/23 03/23 [facility] [id number]- /2014 [facility] [id number] [facility] [place] Unknown [id number] 03/23 03/23 [facility] [id number]- /2014 [facility] [id number] [facility] [place] Unknown [id number] 08/12 08/12 [facility] [id number]- /2014 [facility] [id number] [facility] [place] Unknown [id number] 08/12 08/12 [facility] [id number]- /2014 [facility] [id number] [facility] [place] Unknown [id number] 08/12 08/12 [facility] [id number]- /2014 [facility] [id number] [facility] [place] Unknown [id number] 08/12 08/12 [facility] [id number]- /2014 [facility] [id number] y [facility] [place] Unknown [id number] 08/12 08/12 [facility] [id number]- /2014 [facility] [id number] [facility] [place] Unknown [id number] 08/12 08/12 [facility] [id number]- /2014 [facility] [id number] [facility] [place] Unknown [id number] 01/28 01/28 [facility] [id number]- /2015 [facility] [id number] [facility] [place] Unknown [id number] 01/28 01/28 [facility] [id number]- /2015 [facility] [id number] [facility] [place] Unknown [id number] 01/28 01/28 [facility] [id number]- /2015 [facility] [id number] [facility] [place] Unknown [id number] 01/28 01/28 [facility] [id number]- /2015 [facility] [id number] [facility] [place] Unknown [id number] 01/28 01/28 [facility] [id number]- /2015 [facility] [id number] [facility] [place] Unknown [id number] 01/28 01/28 [facility] [id number]- /2015 [facility] [id number] [facility] [place] Unknown [id number] 03/11 03/11 [facility] [id number]- /2015 [facility] [id number] [facility] [place] Unknown [id number] 03/11 03/11 [facility] [id number]- /2015 [facility] [id number] [facility] [place] Unknown [id number] 03/11 03/11 [facility] [id number]- /2015 [facility] [id number] [facility] [place] Unknown [id number] 03/11 03/11 [facility] [id number]- /2015 [facility] [id number] [facility] [place] Unknown [id number] 03/11 03/11 [facility] [id number]- /2015 [facility] [id number] [facility] [place] Unknown [id number] 04/15 04/15 [facility] [id number]- /2015 [facility] [id number] [facility] [place] Unknown [id number] 04/15 04/15 [facility] [id number]- /2015 [facility] [id number] [facility] [place] Unknown [id number] 04/15 04/15 [facility] [id number]- /2015 [facility] [id number] [facility] [place] Unknown [id number] 04/15 04/15 [facility] [id number]- /2015 [facility] [id number] y Consult [place] Unknown [id number] 04/15 04/15 [facility] [id number]- /2015 [facility] [id number] [facility] [place] Unknown [id number] 04/15 04/15 [facility] [id number]- /2015 [facility] [id number] y Consult [place] Unknown [id number] 04/15 04/15 [facility] [id number]- /2015 [facility] [id number] y Consult [place] Unknown [id number] 04/15 04/15 [facility] [id number]- /2015 [facility] [id number] y Consult [place] Other [id number] 09/09 09/09 [facility] [id number]- /2015 [facility] [id number] y [facility] [place] Other [id number] 09/09 09/09 [facility] [id number]- /2015 [facility] [id number] y Consult [place] Unknown [id number] 12/20 12/20 [facility] [id number]- /2016 [facility] [id number] y Consult Procedures Procedure Code Date Perfomer Comments Source Knee replacement [id number] [facility]
--- OUTSIDE RECORDS SUMMARY | 2018-08-08 06:21 | XMS REPORT ---
:1940 [facility] Providers Name Role Phone Melissa Salmon Provider Role Unavailable Allergies No Known Allergies Problems Problem Type Condition Code Onset Dates Condition Status Problem Other specified cardiac 427.89 Active dysrhythmias Problem Palpitations 785.1 Active Problem Atrial fibrillation 427.31 Active Problem Personal history of transient V12.54 Active ischemic attack [TIA], and cerebral infarction without residual deficits Problem Transient cerebral ischemic attack, G45.9 Active unspecified Problem Palpitations R00.2 Active Problem Bradycardia, unspecified R00.1 Active Problem Personal history of transient Z86.73 Active ischemic attack (TIA), and cerebral infarction without residual deficits Problem History of falling Z91.81 Active Problem Abnormal electrocardiogram [ECG] R94.31 Active [EKG] Problem Morbid (severe) obesity due to E66.01 Active excess calories Problem Constipation, unspecified K59.00 Active Problem Major depressive disorder, single F32.9 Active episode, unspecified Problem Arthropathy, unspecified M12.9 Active Problem Chronic kidney disease, unspecified N18.9 Active Problem Insomnia, unspecified G47.00 Active Problem Shortness of breath R06.02 Active Problem Chest pain, unspecified R07.9 Active Problem 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 Problem Essential (primary) hypertension I10 Active Problem Hypothyroidism, unspecified E03.9 Active Problem Hyperlipidemia, unspecified E78.5 Active Problem Other and unspecified 272.4 Active hyperlipidemia Problem Unspecified hypothyroidism 244.9 Active Problem Chronic kidney disease, Stage III 585.3 Active (moderate) Problem Congestive heart failure, 428.0 Active unspecified Problem Insomnia, unspecified 780.52 Active Problem Mitral valve disorders 424.0 Active Problem Hypertension essential benign 401.1 Active Problem Unspecified constipation 564.00 Active Problem Obesity, unspecified 278.00 Active Problem Other malaise and fatigue 780.79 Active Problem Nonrheumatic mitral (valve) I34.0 Active insufficiency Problem Occlusion and stenosis of carotid 433.10 Active artery without mention of cerebral infarction Problem Paroxysmal atrial fibrillation I48.0 Active Problem Chronic diastolic (congestive) I50.32 Active heart failure Problem Impaired fasting blood sugar R73.01 Active Problem Hypertensive heart and chronic I13.0 Active kidney disease with heart failure and stage 1 through stage 4 chronic kidney disease, or unspecified chronic kidney disease Problem Frequency of micturition R35.0 Active Problem Female genuine stress incontinence N39.3 Active Problem Encounter for screening for Z13.1 Active diabetes mellitus Problem Unspecified arthropathy, site 716.90 Active unspecified Problem Overactive bladder N32.81 Active Problem Morbid obesity 278.01 Active Problem Anxiety disorder, unspecified F41.9 Active Problem Nonspecific abnormal 794.31 Active electrocardiogram (ECG) (EKG) Problem Encounter for routine gynecological Z01.419 Active examination Problem Chest pain, unspecified 786.50 Active Problem Urinary tract infection, site not N39.0 Active specified Problem Shortness of breath 786.05 Active Problem Upper respiratory tract 478.8 Active hypersensitivity reaction, site unspecified Problem Unspecified transient cerebral 435.9 Active ischemia Problem Personal history of fall V15.88 Active Problem Acute upper respiratory infections 465.9 Active of unspecified site Problem Depressive disorder, not elsewhere 311 Active classified Problem 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, benign, with heart failure and with chronic kidney disease stage I through stage IV, or unspecified Medications No Known Medications Results No Known Results Summary Purpose eClinicalWorks Submission
--- OUTSIDE RECORDS SUMMARY | 2018-08-08 06:21 | XMS REPORT ---
:1940 [facility] Providers Name Role Phone [...] I through stage IV, or unspecified Medications Medication Code System Code Instructions Start Date End Date Status Dosage Edarbyclor [facility] [address] 40-25 MG Orally January 17, Active 1 tablet -30 Once a day 2016 Results No Known Results Summary Purpose eClinicalWorks Submission
--- OUTSIDE RECORDS SUMMARY | 2018-08-08 06:21 | XMS REPORT ---
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, benign, with heart failure and with chronic kidney disease stage I through stage IV, or unspecified Problem Depressive disorder, not 311 Active elsewhere classified Problem Acute upper respiratory 465.9 Active infections of unspecified site Problem Personal history of fall V15.88 Active Problem Upper respiratory tract 478.8 Active hypersensitivity reaction, site unspecified Problem Unspecified transient cerebral 435.9 Active ischemia Problem Palpitations 785.1 Active Problem Other specified cardiac 427.89 Active dysrhythmias Problem Personal history of transient V12.54 Active ischemic attack [TIA], and cerebral infarction without residual deficits Problem Atrial fibrillation 427.31 Active Problem Transient cerebral ischemic G45.9 Active attack, unspecified Problem Personal history of transient Z86.73 Active ischemic attack (TIA), and cerebral infarction without residual deficits Problem Bradycardia, unspecified R00.1 Active Problem Palpitations R00.2 Active Problem Morbid (severe) obesity due to E66.01 Active excess calories Problem Arthropathy, unspecified M12.9 Active Problem History of falling Z91.81 Active Problem Abnormal electrocardiogram [ECG] R94.31 Active [EKG] Problem Shortness of breath R06.02 Active Problem Chest pain, unspecified R07.9 Active Problem Major depressive disorder, F32.9 Active single episode, unspecified Problem Constipation, unspecified K59.00 Active Problem Chronic kidney disease, Stage 585.3 Active III (moderate) Problem Mitral valve disorders 424.0 Active Problem Insomnia, unspecified 780.52 Active Problem Unspecified hypothyroidism 244.9 Active Problem Chronic kidney disease, N18.9 Active unspecified Problem Congestive heart failure, 428.0 Active unspecified Problem Insomnia, unspecified G47.00 Active Problem Hypothyroidism, unspecified E03.9 Active Problem 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 Problem Hyperlipidemia, unspecified E78.5 Active Problem Impaired fasting blood sugar R73.01 Active Problem Hypertensive heart and chronic I13.0 Active kidney disease with heart failure and stage 1 through stage 4 chronic kidney disease, or unspecified chronic kidney disease Problem Anxiety disorder, unspecified F41.9 Active Problem Obesity, unspecified 278.00 Active Problem Nonrheumatic mitral (valve) I34.0 Active insufficiency Problem Unspecified constipation 564.00 Active Problem Essential (primary) hypertension I10 Active Problem Hypertension essential benign 401.1 Active Problem Chronic diastolic (congestive) I50.32 Active heart failure Problem Occlusion and stenosis of 433.10 Active carotid artery without mention of cerebral infarction Problem Paroxysmal atrial fibrillation I48.0 Active Problem Other and unspecified 272.4 Active hyperlipidemia Problem Morbid obesity 278.01 Active Problem Unspecified arthropathy, site 716.90 Active unspecified Problem Chest pain, unspecified 786.50 Active Problem Nonspecific abnormal 794.31 Active electrocardiogram (ECG) (EKG) Problem Other malaise and fatigue 780.79 Active Problem Shortness of breath 786.05 Active Social History Social History Element Qualifiers Date Reported Smoking . Status: former smoker January 11, 2016 Marital Status: . January 11, 2016 Caffeine intake? . Status: Yes, What type: Coffee, Soft Drinks, January 11, 2016 1 cup a day New since last visit: none. January 11, 2016 Exercise . Status: Yes, Type: walking, biking January 11, 2016 Alcohol Use: . Status: No January 11, 2016 Travel outside [place]: no. January 11, 2016 Occup. exposure: none. January 11, 2016 Occupation: unemployed. January 11, 2016 Summary Purpose eClinicalWorks Submission
--- OUTSIDE RECORDS SUMMARY | 2018-08-08 06:21 | XMS REPORT ---
:1940 [facility] Providers Name Role Phone Alessandra Salmonul Provider Role Unavailable Allergies No Known Allergies Problems Problem Type Condition Code Onset Dates Condition Status Problem Atrial fibrillation 427.31 Active Problem Personal history of transient V12.54 Active ischemic attack [TIA], and cerebral infarction without residual deficits Problem Palpitations R00.2 Active Problem Transient cerebral ischemic attack, G45.9 Active unspecified Problem Bradycardia, unspecified R00.1 Active Problem Personal history of transient Z86.73 Active ischemic attack (TIA), and cerebral infarction without residual deficits Problem History of falling Z91.81 Active Problem Abnormal electrocardiogram [ECG] R94.31 Active [EKG] Problem Morbid (severe) obesity due to E66.01 Active excess calories Problem Arthropathy, unspecified M12.9 Active Problem Major depressive disorder, single F32.9 Active episode, unspecified Problem Chest pain, unspecified R07.9 Active Problem Shortness of breath R06.02 Active Problem Constipation, unspecified K59.00 Active Problem Hypothyroidism, unspecified E03.9 Active Problem Hyperlipidemia, unspecified E78.5 Active Problem Chronic kidney disease, unspecified N18.9 Active Problem Insomnia, unspecified G47.00 Active Problem Nonrheumatic mitral (valve) I34.0 Active insufficiency Problem Paroxysmal atrial fibrillation I48.0 Active Problem 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 Problem Essential (primary) hypertension I10 Active Problem Chronic kidney disease, Stage III 585.3 Active (moderate) Problem Congestive heart failure, 428.0 Active unspecified Assessment Hypertensive heart and chronic I13.0 Active kidney disease with heart failure and stage 1 through stage 4 chronic kidney disease, or unspecified chronic kidney disease Problem Hypertension essential benign 401.1 Active Problem Occlusion and stenosis of carotid 433.10 Active artery without mention of cerebral infarction Problem Insomnia, unspecified 780.52 Active Problem Mitral valve disorders 424.0 Active Problem Other and unspecified 272.4 Active hyperlipidemia Problem Unspecified hypothyroidism 244.9 Active Problem Obesity, unspecified 278.00 Active Problem Other malaise and fatigue 780.79 Active Problem Shortness of breath 786.05 Active Problem Chest pain, unspecified 786.50 Active Problem Chronic diastolic (congestive) I50.32 Active heart failure Problem Unspecified constipation 564.00 Active Problem Hypertensive heart and chronic I13.0 Active kidney disease with heart failure and stage 1 through stage 4 chronic kidney disease, or unspecified chronic kidney disease Problem Impaired fasting blood sugar R73.01 Active Problem Overactive bladder N32.81 Active Problem Anxiety disorder, unspecified F41.9 Active Problem Incontinence without sensory N39.42 Active awareness Problem Encounter for screening for Z13.1 Active diabetes mellitus Problem Retention of urine, unspecified R33.9 Active Problem 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, benign, with heart failure and with chronic kidney disease stage I through stage IV, or unspecified Problem Encounter for routine gynecological Z01.419 Active examination Problem Depressive disorder, not elsewhere 311 Active classified Problem Urinary tract infection, site not N39.0 Active specified Problem Unspecified arthropathy, site 716.90 Active unspecified Problem Frequency of micturition R35.0 Active Problem Morbid obesity 278.01 Active Problem Female genuine stress incontinence N39.3 Active Problem Nonspecific abnormal 794.31 Active electrocardiogram (ECG) (EKG) Problem Palpitations 785.1 Active Problem Other specified cardiac 427.89 Active dysrhythmias Problem Upper respiratory tract 478.8 Active hypersensitivity reaction, site unspecified Problem Unspecified transient cerebral 435.9 Active ischemia Problem Personal history of fall V15.88 Active Problem Acute upper respiratory infections 465.9 Active of unspecified site Medications Medication Code System Code Instructions Start Date End Date Status Dosage Edarbyclor [facility] [address] 40-25 MG Orally January 02, Active 1 tablet -30 Once a day 2016 Results No Known Results Summary Purpose eClinicalWorks Submission
--- OUTSIDE RECORDS SUMMARY | 2018-08-08 06:21 | XMS REPORT ---
:1939 [facility] Providers Name Role Phone Alessandra [...] Congestive heart failure, 428.0 Active unspecified Problem Hypertension essential benign 401.1 Active Problem [...] Instructions Start Date End Date Status Dosage Denae [facility] [address] 5 MG Orally twice Jun 08, Active 1 tablet -21 a day 2016 Results No Known Results Summary Purpose eClinicalWorks Submission
--- OUTSIDE RECORDS SUMMARY | 2018-08-08 06:22 | XMS REPORT ---
:1939 Author Organization eClinicalWorks Care Team Providers Name Role Phone Melissa Salmon Provider Role Unavailable Encounters Encounter Location Date Unknown [place] [employer] Aug 12, 2015 Unknown [place] [employer] January 29, 2016 Unknown [place] [employer] March 11, 2016 Unknown [place] [employer] Dec 19, 2014 PT/INR 3.0 [place] [employer] Dec 19, 2014 Unknown [place] [employer] March 23, 2015 Problems Problem Type Condition [...] Date Reported Smoking . Status: former smoker February 23, 2016 Marital Status: . February 23, 2016 Caffeine intake? . Status: Yes, What type: Coffee, Soft Drinks, February 23, 2016 1 cup a day New since last visit: none. February 23, 2016 Exercise . Status: Yes, Type: walking, biking February 23, 2016 Alcohol Use: . Status: No February 23, 2016 Travel outside [place]: no. February 23, 2016 Occup. exposure: none. February 23, 2016 Occupation: unemployed. February 23, 2016 Summary Purpose eClinicalWorks Submission
--- OUTSIDE RECORDS SUMMARY | 2018-08-08 06:22 | XMS REPORT ---
:[address] [facility] Providers Name Role Phone Melissa Salmon Provider Role Unavailable Encounters Encounter Location Date Unknown [place] [employer] Aug 12, 2015 Unknown [place] [employer] January 29, 2016 Unknown [place] [employer] March 11, 2016 Unknown [place] [employer] April 15, 2016 Unknown [place] [employer] Dec 19, 2014 PT/INR 3.0 [place] [employer] Dec 19, 2014 Unknown [place] [employer] March 23, 2015 Unknown [place] [employer] April 15, 2016 Other [place] [employer] Sep 09, 2016 Problems Problem Type Condition ICD-9 Code Onset Dates Condition Status Problem Other specified cardiac 427.89 Active dysrhythmias Problem Palpitations 785.1 Active Problem Atrial fibrillation 427.31 Active Problem Personal history of transient V12.54 Active ischemic attack [TIA], and cerebral infarction without residual deficits Problem Transient cerebral ischemic G45.9 Active attack, unspecified Problem Palpitations R00.2 Active Problem Bradycardia, unspecified R00.1 Active Problem Personal history of transient Z86.73 Active ischemic attack (TIA), and cerebral infarction without residual deficits Problem History of falling Z91.81 Active Problem Abnormal electrocardiogram [ECG] R94.31 Active [EKG] Problem Morbid (severe) obesity due to E66.01 Active excess calories Problem Constipation, unspecified K59.00 Active Problem Major depressive disorder, F32.9 Active single episode, unspecified Problem Arthropathy, unspecified M12.9 Active Problem Chronic kidney disease, N18.9 Active unspecified Problem Insomnia, unspecified G47.00 Active Problem Shortness of breath R06.02 Active Problem Chest pain, unspecified R07.9 Active Problem 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 Problem Essential (primary) hypertension I10 Active Problem Hypothyroidism, unspecified E03.9 Active Problem Hyperlipidemia, unspecified E78.5 Active Problem Other and unspecified 272.4 Active hyperlipidemia Problem Unspecified hypothyroidism 244.9 Active Problem Chronic kidney disease, Stage 585.3 Active III (moderate) Problem Congestive heart failure, 428.0 Active unspecified Problem Insomnia, unspecified 780.52 Active Problem Mitral valve disorders 424.0 Active Problem Hypertension essential benign 401.1 Active Problem Unspecified constipation 564.00 Active Problem Obesity, unspecified 278.00 Active Problem Other malaise and fatigue 780.79 Active Problem Nonrheumatic mitral (valve) I34.0 Active insufficiency Problem Occlusion and stenosis of 433.10 Active [...] micturition R35.0 Active Problem Female genuine stress N39.3 Active incontinence Problem Encounter for screening for Z13.1 Active diabetes mellitus Problem Unspecified arthropathy, site 716.90 Active unspecified Problem Overactive bladder N32.81 Active Problem Morbid obesity 278.01 Active Problem Anxiety disorder, unspecified F41.9 Active Problem Nonspecific abnormal 794.31 Active electrocardiogram (ECG) (EKG) Problem Encounter for routine Z01.419 Active gynecological examination Problem Chest pain, unspecified 786.50 Active Problem Urinary tract infection, site N39.0 Active not specified Problem Shortness of breath 786.05 Active Problem Upper respiratory tract 478.8 Active hypersensitivity reaction, site unspecified Problem Unspecified transient cerebral 435.9 Active ischemia Problem Personal history of fall V15.88 Active Problem Acute upper respiratory 465.9 Active infections of unspecified site Problem Depressive disorder, not 311 Active elsewhere classified Problem 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 Status: former smoker Aug 01, 2016 Marital Status: . Aug 01, 2016 Caffeine intake? . Status: Yes, What type: Coffee, Soft Drinks, Aug 01, 2016 1 cup a day New since last visit: none. Aug 01, 2016 Exercise . Status: Yes, Type: walking, biking Aug 01, 2016 Alcohol Use: . Status: No Aug 01, 2016 Travel outside [place]: no. Aug 01, 2016 Occup. exposure: none. Aug 01, 2016 Occupation: unemployed. Aug 01, 2016 Summary Purpose eClinicalWorks Submission
--- OUTSIDE RECORDS SUMMARY | 2018-08-08 06:22 | XMS REPORT | Summary of Care ---
:1940 Author Encounter HQ Daniel_hunter(PATRICIA) [id number] Date(s): 11/23/14 - 11/26/[address] Discharge Disposition: Home Physician Attending: Serina Begum MD Physician Admitting: Serina Begum MD Physician_Referring: Bennett Salmon MD Reason for Visit ISCHEMIC STROKE Vital Signs Most recent to oldest [Reference 1 2 3 Range]: Height 162.56 cm (11/24/14 12:47 AM) Temperature Oral [96.4-99.1 DegF] 97.5 DegF 97.5 DegF (11/26/14 11:54 AM) (11/26/14 8:10 AM) Systolic Blood Pressure [90-140 172 mmHg 166 mmHg 157 mmHg mmHg] *HI* *HI* *HI* (11/26/14 11:54 AM) (11/26/14 8:10 AM) (11/26/14 6:00 AM) Diastolic Blood Pressure [60-90 79 mmHg 79 mmHg 66 mmHg mmHg] (11/26/14 11:54 AM) (11/26/14 8:10 AM) (11/26/14 6:00 AM) Respiratory Rate [14-20 BRMIN] 16 BRMIN 18 BRMIN 16 BRMIN (11/26/14 11:54 AM) (11/26/14 8:10 AM) (11/26/14 6:09 AM) Peripheral Pulse Rate [60-100 57 bpm 69 bpm 65 bpm bpm] *LOW* (11/26/14 8:10 AM) (11/24/14 9:45 AM) (11/26/14 11:54 AM) Weight 114.318 kg (11/24/14 12:47 AM) Body Mass Index 43.26 m2 (11/24/14 12:47 AM) Problem List Condition Effective Dates Status Health Status Informant Acid reflux disease(Confirmed) Resolved High cholesterol(Confirmed) Resolved Hyperlipidemia(Confirmed) Resolved Hypertension(Confirmed) Resolved Hypothyroidism(Confirmed) Resolved Allergies, Adverse Reactions, Alerts Substance Reaction Severity Status NKDA NKDA Active Medications acetaminophen 650 mg, 2 tab, Route: PO, Drug form: TAB, Q4H, kg, PRN Pain 1-3/Temp > 99.5 F, Start date: 11/23/14 22:58:00, Duration: 30 day, Stop date: 12/23/14 22:57:00 Notes: Do not exceed 4 gm/day. (Same as: Tylenol) Start Date: 11/23/14 Stop Date: 11/24/14 Status: DiscontinuedAmbien 10 mg oral tablet 10 mg=1 tab, PO, Bedtime, for sleep, 0 Refill(s) Start Date: 11/24/14 Status: Orderedaspirin 0 Refill(s) Start Date: 11/24/14 Stop Date: 11/24/14 Status: Discontinuedatenolol 12.5 mg, 0.5 tab, Route: PO, Drug form: TAB, Daily, Dosing Weight 114.318, kg, Start date: 11/25/14 9:00:00, Duration: 30 day, Stop date: 12/24/14 9:00:00 Notes: (Same As:Tenormin) Start Date: 11/25/14 Stop Date: 11/26/14 Status: Discontinuedatenolol 0 Refill(s) Start Date: 11/24/14 Stop Date: 11/24/14 Status: Discontinuedatenolol 100 mg oral tablet 50 mg=0.5 tab, PO, BID, # 30 tab, 0 Refill(s) Start Date: 11/24/14 Stop Date: 11/26/14 Status: Discontinuedatenolol 25 mg oral tablet 12.5 mg=0.5 tab, PO, Daily, 0 Refill(s) Start Date: 11/26/14 Status: Orderedatorvastatin 40 mg, 1 tab, Route: PO, Drug form: TAB, Bedtime, kg, Start date: 11/24/14 21:00 :00, Duration: 30 day, Stop date: 12/23/14 21:00:00 Notes: (Same as: Lipitor) Start Date: 11/24/14 Stop Date: 11/26/14 Status: Discontinuedatorvastatin 80 mg, 1 tab, Route: PO, Drug form: TAB, Bedtime, kg, Start date: 11/24/14 21:00 :00, Duration: 30 day, Stop date: 12/23/14 21:00:00 Notes: Same as Lipitor Start Date: 11/24/14 Stop Date: 11/24/14 Status: Canceledatorvastatin 40 mg oral tablet 40 mg=1 tab, PO, Bedtime, # 30 tab, 3 Refill(s) Start Date: 11/26/14 Status: OrderedbuPROPion 150 mg, 1 tab, Route: PO, Drug form: ERTAB, BID, Dosing Weight 114.318, kg, Start date: 11/24/14 17:00:00, Duration: 30 day, Stop date: 12/24/14 9:00:00 Notes: (Do not crush) (Same As: Wellbutrin SR) Start Date: 11/24/14 Stop Date: 11/26/14 Status: DiscontinuedbuPROPion 150 mg/24 hours oral extended release tablet 150 mg=1 tab, PO, BID, # 30 tab, 0 Refill(s) Start Date: 11/24/14 Status: Orderedclopidogrel 75 mg oral tablet 75 mg=1 tab, PO, Daily, # 30 tab, 0 Refill(s) Start Date: 11/26/14 Status: Ordereddoxazosin 4 mg oral tablet 4 mg=1 tab, PO, Daily, # 30 tab, 0 Refill(s) Start Date: 11/24/14 Status: Orderedfenofibrate 160 mg oral tablet 160 mg=1 tab, PO, Daily, # 30 tab, 0 Refill(s) Start Date: 11/24/14 Stop Date: 11/24/14 Status: Discontinuedfenofibrate 160 mg oral tablet 160 mg=1 tab, PO, Daily, # 30 tab, 0 Refill(s) Start Date: 11/24/14 Stop Date: 11/26/14 Status: Discontinuedheparin 7,500 unit, 1.5 mL, Route: SUB-Q, Drug form: INJ, Q8H, Dosing Weight 114.318, kg , Start date: 11/24/14 22:00:00, Duration: 30 day, Stop date: 12/24/14 16:00:00 Notes: porcine heparin Start Date: 11/24/14 Stop Date: 11/26/14 Status: DiscontinuedLasix 40 mg oral tablet 40 mg=1 tab, PO, Daily, # 30 tab, 0 Refill(s) Start Date: 11/24/14 Stop Date: 11/26/14 Status: DiscontinuedLasix 40 mg oral tablet 40 mg=1 tab, PO, Daily, # 30 tab, 0 Refill(s) Start Date: 11/24/14 Stop Date: 11/24/14 Status: Discontinuedlevothyroxine 100 microgram, 1 tab, Route: PO, Drug form: TAB, Q630AM, Dosing Weight 114.318, kg, Start date: 11/25/14 6:30:00, Duration: 30 day, Stop date: 12/24/14 6:30:00 Notes: Take 1 hour before or 2 hours after meal; Enteral feeds may interefere with the absorption ofthis medication. (Same as:Levothroid, Synthroid) Start Date: 11/25/14 Stop Date: 11/26/14 Status: Discontinuedlevothyroxine 100 mcg (0.1 mg) oral tablet 100 microgram=1 tab, PO, QAM, # 30 tab, 0 Refill(s) Start Date: 11/24/14 Status: Orderedliothyronine 10 microgram, 2 tab, Route: PO, Drug form: TAB, QAM, Dosing Weight 114.318, kg, Priority: NOW, Startdate: 11/24/14 15:35:00, Duration: 30 day, Stop date: 9:00:00 Notes: (Same as: Mike) Start Date: 11/24/14 Stop Date: 11/26/14 Status: Discontinuedliothyronine 5 microgram, 1 tab, Route: PO, Drug form: TAB, Daily, Dosing Weight 114.318, kg , Start date: 11/24/14 14:09:00, Duration: 30 day, Stop date: 12/24/14 9:00:00 Notes: (Same as: Cytomel) Start Date: 11/24/14 Stop Date: 11/24/14 Status: Discontinuedliothyronine 5 mcg oral tablet 10 microgram=2 tab, PO, QAM, # 30 tab, 0 Refill(s) Start Date: 11/24/14 Status: Orderedliothyronine 5 mcg oral tablet 5 microgram=1 tab, PO, Daily, # 30 tab, 0 Refill(s) Start Date: 11/24/14 Stop Date: 11/24/14 Status: Discontinuedmagnesium sulfate 2 gm, 50 mL, Route: IVPB, Drug form: INJ, ONCE, Dosing Weight 114.318, kg, Total dose=2 gm, Start date: 11/24/14 11:27:00, Duration: 1 doses or times, Stop date: 11/24/14 11:27:00 Start Date: 11/24/14 Stop Date: 11/24/14 Status: Completedmetolazone 5 mg oral tablet 5 mg=1 tab, PO, Daily, # 30 tab, 0 Refill(s) Start Date: 11/24/14 Stop Date: 11/26/14 Status: Discontinuedmetolazone 5 mg oral tablet 5 mg=1 tab, PO, Daily, # 30 tab, 0 Refill(s) Start Date: 11/24/14 Stop Date: 11/24/14 Status: Discontinuedomeprazole 0 Refill(s) Start Date: 11/24/14 Stop Date: 11/24/14 Status: Discontinuedomeprazole 40 mg oral delayed release capsule 40 mg=1 cap, PO, Daily, # 30 cap, 0 Refill(s) Start Date: 11/24/14 Status: OrderedPlavix 75 mg, 1 tab, Route: PO, Drug form: TAB, Daily, Dosing Weight 114.318, kg, Start date: 11/24/14 22:00:00, Duration: 30 day, Stop date: 12/24/14 9:00:00 Notes: (Same As: Plavix) Start Date: 11/24/14 Stop Date: 11/26/14 Status: Discontinuedpneumococcal 23-valent vaccine 0.5 ml, Route: IM, Drug Form: INJ, Daily, Start date: 11/24/14 9:00:00, Stop date: 11/24/14 23:59:00 Notes: (Same as: Pneumovax 23) Refrigerate Start Date: 11/24/14 Stop Date: 11/24/14 Status: Completedpotassium chloride 20 mEq oral tablet, extended release 20 mEq=1 tab, PO, Daily, 0 Refill(s) Start Date: 11/24/14 Stop Date: 11/26/14 Status: Discontinuedpotassium chloride 20 mEq oral tablet, extended release 0 Refill(s) Start Date: 11/24/14 Stop Date: 11/24/14 Status: DiscontinuedPravachol 40 mg oral tablet 40 mg=1 tab, PO, Bedtime, # 30 tab, 0 Refill(s) Start Date: 11/24/14 Stop Date: 11/24/14 Status: Discontinuedpravastatin 40 mg oral tablet 40 mg=1 tab, PO, Bedtime, # 30 tab, 0 Refill(s) Start Date: 11/24/14 Stop Date: 11/26/14 Status: DiscontinuedProtonix 40 mg, 1 tab, Route: PO, Drug form: ECTAB, Before Dinner, Start date: 11/25/14 16:30:00, Duration: 30 day, Stop date: 12/24/14 16:30:00 Notes: Tablet should not be chewed or crushed.(Same as: Protonix) Start Date: 11/25/14 Stop Date: 11/26/14 Status: DiscontinuedReglan 5 mg, 1 mL, Route: IV, Drug form: INJ, ONCE, Dosing Weight 114.318, kg, Start date: 11/24/14 11:44:00, Stop date: 11/24/14 11:44:00 Notes: (Same as: Reglan) Start Date: 11/24/14 Stop Date: 11/24/14 Status: CompletedSaline Flush 0.9% 10 ml, Route: IVP, Drug Form: INJ, kg, PRN, PRN Line Flush, Start date: 22:58:00, Duration:30 day, Stop date: 12/23/14 22:57:00 Notes: (Same as: BD Posiflush) Start Date: 11/23/14 Stop Date: 11/26/14 Status: DiscontinuedSaline Flush 0.9% 10 ml, Route: IVP, Drug Form: INJ, kg, Q12H, Start date: 11/24/14 9:00:00, Duration: 30 day, Stop date: 12/23/14 21:00:00 Notes: (Same as: BD Posiflush) Start Date: 11/24/14 Stop Date: 11/26/14 Status: DiscontinuedSodium Chloride 0.9% IV 1,000 mL 1,000 mL, Rate: 75 ml/hr, Infuse over: 13.3 hr, Route: IV, Total Volume: 1,000, Start date: 11/23/1522:06:00, Duration: 30 day, Stop date: 12/23/14 23:05:00 Start Date: 11/23/14 Stop Date: 11/26/14 Status: Discontinuedspironolactone 25 mg oral tablet 25 mg=1 tab, PO, Daily, # 60 tab, 0 Refill(s) Start Date: 11/24/14 Stop Date: 11/26/14 Status: Discontinuedspironolactone 25 mg oral tablet 0 Refill(s) Start Date: 11/24/14 Stop Date: 11/24/14 Status: DiscontinuedTylenol 650 mg, 2 tab, Route: PO, Drug form: TAB, Q6H, kg, PRN Pain 1-3/Temp > 99.5 F, Start date: 11/24/14 0:48:00, Stop date: 12/24/14 0:47:00 Notes: Do not exceed 4 gm/day. (Same as: Tylenol) Start Date: 11/24/14 Stop Date: 11/24/14 Status: DiscontinuedTylenol 650 mg, 2 tab, Route: PO, Drug form: TAB, Q6H, Dosing Weight 114.318, kg, PRN Pain, Start date: 11/24/14 21:16:00, Duration: 30 day, Stop date: 12/24/14 21:15 :00 Notes: Do not exceed 4 gm/day. (Same as: Tylenol) Start Date: 11/24/14 Stop Date: 11/26/14 Status: Discontinuedvalsartan 40 mg, 1 tab, Route: PO, Drug form: TAB, Q12H, Dosing Weight 114.318, kg, Start date: 11/26/14 9:00:00, Duration: 30 day, Stop date: 12/25/14 21:00:00 Notes: Same as Diovan Start Date: 11/26/14 Stop Date: 11/26/14 Status: Discontinuedvalsartan 320 mg, Route: PO, Drug form: TAB, Daily, Dosing Weight 114.318, kg, Start date : 11/25/14 9:00:00, Duration: 30 day, Stop date: 12/24/14 9:00:00 Start Date: 11/25/14 Stop Date: 11/24/14 Status: Canceledvalsartan 40 mg, Route: PO, BID, Dosing Weight 114.318, kg, Start date: 11/24/14 17:00:00 , Duration: 30 day, Stop date: 12/24/14 9:00:00 Start Date: 11/24/14 Stop Date: 11/24/14 Status: Deletedvalsartan 320 mg oral tablet 320 mg=1 tab, PO, Daily, # 30 tab, 0 Refill(s) Start Date: 11/24/14 Stop Date: 11/24/14 Status: Discontinuedvalsartan 320 mg oral tablet 320 mg=1 tab, PO, Daily, # 30 tab, 0 Refill(s) Start Date: 11/24/14 Stop Date: 11/26/14 Status: Discontinuedvalsartan 40 mg oral tablet 40 mg=1 tab, PO, Q12H, # 60 tab, 3 Refill(s) Start Date: 11/26/14 Status: OrderedVentolin HFA 90 mcg/inh inhalation aerosol with adapter 2 puff, INHALATION, Q6H, as needed for wheezing, # 17 gm, 0 Refill(s) Start Date: 11/24/14 Stop Date: 11/26/14 Status: DiscontinuedVersed 0.5 mg, 0.5 mL, Route: IVP, Drug form: INJ, ONCE, Dosing Weight 114.318, kg, Start date: 11/24/14 8:31:00, Stop date: 11/24/14 8:31:00 Notes: (Same as: Versed) Start Date: 11/24/14 Stop Date: 11/24/14 Status: Completedwarfarin 5 mg, 1 tab, Route: PO, Drug form: TAB, Daily, Dosing Weight 114.318, kg, Start date: 11/26/14 12:03:00, Duration: 1 doses or times, Stop date: 11/26/14 12:03: 00 Notes: Nurse to ensure documentation of patient education per anticoagulation policy.Avoid large intake of vitamin-K containing foods diet.(Same As: Coumadin) Start Date: 11/26/14 Stop Date: 11/26/14 Status: Completedwarfarin 5 mg oral tablet 5 mg, PO, Daily, # 2 tab, 0 Refill(s) Start Date: 11/26/14 Stop Date: 11/28/14 Status: OrderedZofran 4 mg, 2 mL, Route: IVP, Drug form: INJ, ONCE, Dosing Weight 114.318, kg, Start date: 11/24/14 7:08:00, Stop date: 11/24/14 7:08:00 Notes: (Same as: Zofran) Start Date: 11/24/14 Stop Date: 11/24/14 Status: Completed Results ELECTROLYTES Most recent to oldest 1 2 3 [Reference Range]: Sodium Lvl [135-145 mEq/L] 136 mEq/L 138 mEq/L 137 mEq/L (11/26/14 4:23 AM) (11/25/14 1:04 AM) (11/24/14 1:51 AM) Potassium Lvl [3.5-5.1 mEq/L] 3.5 mEq/L 3.8 mEq/L 3.8 mEq/L (11/26/14 4:23 AM) (11/25/14 1:04 AM) (11/24/14 1:51 AM) Chloride Lvl [95-109 mEq/L] 102 mEq/L 104 mEq/L 103 mEq/L (11/26/14 4:23 AM) (11/25/14 1:04 AM) (11/24/14 1:51 AM) CO2 [24-32 mEq/L] 25 mEq/L 25 mEq/L 28 mEq/L (11/26/14 4:23 AM) (11/25/14 1:04 AM) (11/24/14 1:51 AM) AGAP [10.0-20.0 mEq/L] 12.5 mEq/L 12.8 mEq/L 9.8 mEq/L (11/26/14 4:23 AM) (11/25/14 1:04 AM) *LOW* (11/24/14 1:51 AM) CHEM PANEL Most recent to oldest 1 2 3 [Reference Range]: Creatinine Lvl [0.5-1.4 1.3 mg/dL 1.5 mg/dL 1.7 mg/dL mg/dL] (11/26/14 4:23 AM) *HI* *HI* (11/25/14 1:04 AM) (11/24/14 1:51 AM) eGFR 40 mL/min/1.73m2 1 34 mL/min/1.73m2 2 29 mL/min/1.73m2 3 *NA* *NA* *NA* (11/26/14 4:23 AM) (11/25/14 1:04 AM) (11/24/14 1:51 AM) BUN [7-22 mg/dL] 18 mg/dL 23 mg/dL 37 mg/dL (11/26/14 4:23 AM) *HI* *HI* (11/25/14 1:04 AM) (11/24/14 1:51 AM) B/C Ratio [6-25] 22 (11/24/14 1:51 AM) Glucose Lvl [70-99 mg/dL] 80 mg/dL 4 82 mg/dL 5 125 mg/dL 6 (11/26/14 4:23 AM) (11/25/14 1:04 AM) *HI* (11/24/14 1:51 AM) Total Protein [6.4-8.4 g/dL] 6.9 g/dL (11/24/14 1:51 AM) Albumin Lvl [3.5-5.0 g/dL] 3.7 g/dL (11/24/14 1:51 AM) Globulin [2.0-4.0 g/dL] 3.2 g/dL (11/24/14 1:51 AM) A/G Ratio [0.7-1.6] 1.2 (11/24/14 1:51 AM) Calcium Lvl [8.5-10.5 mg/dL] 9.0 mg/dL 8.7 mg/dL 8.7 mg/dL (11/26/14 4:23 AM) (11/25/14 1:04 AM) (11/24/14 1:51 AM) Phosphorus [2.5-4.5 mg/dL] 2.8 mg/dL 3.1 mg/dL (11/26/14 4:23 AM) (11/25/14 1:04 AM) Magnesium Lvl [1.8-2.4 2.1 mg/dL 2.7 mg/dL mg/dL] (11/26/14 4:23 AM) *HI* (11/25/14 1:04 AM) ALT [0-65 unit/L] 29 unit/L (11/24/14 1:51 AM) AST [0-37 unit/L] 17 unit/L (11/24/14 1:51 AM) Alk Phos [39-136 unit/L] 37 unit/L *LOW* (11/24/14 1:51 AM) Bili Total [0.2-1.3 mg/dL] 0.4 mg/dL (11/24/14 1:51 AM) 1Result Comment: The eGFR is calculated using the CKD-EPI formula. In most young , healthy individualsthe eGFR will be >90 mL/min/1.73m2. The eGFR declines with age. An eGFR of 60-89 may be normal in some populations, particularly the elderly, for whom the CKD-EPI formula has not been extensively validated. Use of the eGFR is not recommended in the following populations: Individuals with unstable creatinine concentrations, including patients and those with serious co-morbid conditions. Patients with extremes in muscle mass or diet. The data above are obtained from the National Kid[employer] Education Program ( [employer]) which additionally recommends that when the eGFR is used in patients with extremes of body mass index for purposesof drug dosing, the eGFR should be multiplied by the estimated BMI.2Result Comment: The eGFR is calculated using the CKD-EPI formula. In most young, healthy individualsthe eGFR will be >90 mL/ min/1.73m2. The eGFR declines with age. An eGFR of 60-89 may be normal in some populations, particularly the elderly, for whom the CKD-EPI formula has not been extensively validated. Use of the eGFR is not recommended in the following populations: Individuals with unstable creatinine concentrations, including patients and those with serious co-morbid conditions. Patients with extremes in muscle mass or diet. The data above are obtained from the National [employer] Education Program ( [employer]) which additionally recommends that when the eGFR is used in patients with extremes of body mass index for purposesof drug dosing, the eGFR should be multiplied by the estimated BMI.3Result Comment: The eGFR is calculated using the CKD-EPI formula. In most young, healthy individualsthe eGFR will be >90 mL/ min/1.73m2. The eGFR declines with age. An eGFR of 60-89 may be normal in some populations, particularly the elderly, for whom the CKD-EPI formula has not been extensively validated. Use of the eGFR is not recommended in the following populations: Individuals with unstable creatinine concentrations, including patients and those with serious co-morbid conditions. Patients with extremes in muscle mass or diet. The data above are obtained from the National Kid[employer] Education Program ( [employer]) which additionally recommends that when the eGFR is used in patients with extremes of body mass index for purposesof drug dosing, the eGFR should be multiplied by the estimated BMI.4Interpretive Data: Adult reference range values reflect the clinical guidelines of the [place] [employer].5Interpretive Data: Adult reference range values reflect the clinical guidelines of the [place] [employer].6Interpretive Data: Adult reference range values reflect the clinical guidelines of the [place] [employer].LIPIDS Most recent to oldest [Reference Range]: 1 2 3 CHD Risk [3.90-5.80] 2.81 *LOW* (11/24/14 1:51 AM) Chol [<=199 mg/dL] 132 mg/dL (11/24/14 1:51 AM) Trig [<=149 mg/dL] 128 mg/dL (11/24/14 1:51 AM) HDL [>=61 mg/dL] 47 mg/dL *LOW* (11/24/14 1:51 AM) LDL (Calculated) [<=99 mg/dL] 59 mg/dL (11/24/14 1:51 AM) VLDL 26 *NA* (11/24/14 1:51 AM) SPECIAL CHEMISTRY Most recent to oldest [Reference Range]: 1 2 3 Hgb A1C [<=5.6 %] 5.6 % (11/24/14 1:51 AM) THYROID PANEL Most recent to oldest [Reference Range]: 1 2 3 TSH [0.360-3.740 uIU/mL] 3.190 uIU/mL (11/25/14 1:04 AM) URINE AND STOOL Most recent to oldest [Reference Range]: 1 2 3 UA Turbidity [Clear] Clear (11/24/14 2:06 AM) UA Color [Yellow] Yellow *NA* (11/24/14 2:06 AM) UA pH [5.0-8.0] 6.5 (11/24/14 2:06 AM) UA Spec Grav [<=1.030] 1.009 (11/24/14 2:06 AM) UA Glucose [Negative mg/dL] Negative mg/dL *NA* (11/24/14 2:06 AM) UA Blood [Negative] Negative (11/24/14 2:06 AM) UA Ketones [Negative mg/dL] Negative mg/dL *NA* (11/24/14 2:06 AM) UA Protein [Negative mg/dL] Negative mg/dL (11/24/14 2:06 AM) UA Urobilinogen [0.1-1.0 mg/dL] <=1.0 mg/dL *NA* (11/24/14 2:06 AM) UA Bili [Negative] Negative *NA* (11/24/14 2:06 AM) UA Leuk Est [Negative] Negative (11/24/14 2:06 AM) UA Nitrite [Negative] Negative (11/24/14 2:06 AM) UA WBC [0-5 /HPF] 2 /HPF (11/24/14 2:06 AM) UA Sq Epi [Few /LPF] Moderate /LPF *ABN* (11/24/14 2:06 AM) UA Renal Epi [<=0 /LPF] 7 /LPF *HI* (11/24/14 2:06 AM) HEMATOLOGY Most recent to oldest 1 2 3 [Reference Range]: WBC [3.7-10.4 K/CMM] 4.6 K/CMM 4.9 K/CMM 5.7 K/CMM (11/26/14 4:23 AM) (11/25/14 1:04 AM) (11/24/14 1:51 AM) RBC [4.20-5.40 M/CMM] 3.60 M/CMM 3.56 M/CMM 3.73 M/CMM *LOW* *LOW* *LOW* (11/26/14 4:23 AM) (11/25/14 1:04 AM) (11/24/14 1:51 AM) Hgb [12.0-16.0 g/dL] 11.6 g/dL 11.2 g/dL 12.1 g/dL *LOW* *LOW* (11/24/14 1:51 AM) (11/26/14 4:23 AM) (11/25/14 1:04 AM) Hct [36.0-48.0 %] 33.6 % 33.2 % 35.3 % *LOW* *LOW* *LOW* (11/26/14:23 AM) (11/25/14 1:04 AM) (11/24/14:51 AM) MCV [80.0-98.0 fL] 93.5 fL 93.4 fL 94.9 fL (11/26/14 4:23 AM) (11/25/14 1:04 AM) (11/24/14 1:51 AM) MCH [27.0-31.0 pg] 32.4 pg 31.6 pg 32.5 pg *HI* *HI* *HI* (11/26/14:23 AM) (11/25/14 1:04 AM) (11/24/14:51 AM) MCHC [32.0-36.0 g/dL] 34.6 g/dL 33.8 g/dL 34.2 g/dL (11/26/14 4:23 AM) (11/25/14 1:04 AM) (11/24/14 1:51 AM) RDW [11.5-14.5 %] 13.1 % 13.1 % 13.3 % (11/26/14:23 AM) (11/25/14 1:04 AM) (11/24/14 1:51 AM) Platelet [133-450 K/CMM] 149 K/CMM 151 K/CMM 158 K/CMM (11/26/14 4:23 AM) (11/25/14 1:04 AM) (11/24/14 1:51 AM) MPV [7.4-10.4 fL] 8.3 fL 8.5 fL 8.8 fL (11/26/14 4:23 AM) (11/25/14 1:04 AM) (11/24/14 1:51 AM) Segs [45.0-75.0 %] 62.3 % 63.1 % 70.9 % (11/26/14 4:23 AM) (11/25/14 1:04 AM) (11/24/14 1:51 AM) Lymphocytes [20.0-40.0 %] 26.2 % 27.1 % 19.7 % (11/26/14 4:23 AM) (11/25/14 1:04 AM) *LOW* (11/24/14 1:51 AM) Monocytes [2.0-12.0 %] 8.0 % 7.2 % 6.7 % (11/26/14 4:23 AM) (11/25/14 1:04 AM) (11/24/14 1:51 AM) Eosinophils [0.0-4.0 %] 3.0 % 2.2 % 2.3 % (11/26/14 4:23 AM) (11/25/14 1:04 AM) (11/24/14 1:51 AM) Basophils [0.0-1.0 %] 0.5 % 0.4 % 0.4 % (11/26/14 4:23 AM) (11/25/14 1:04 AM) (11/24/14 1:51 AM) Segs-Bands # [1.5-8.1 K/CMM] 2.9 K/CMM 3.1 K/CMM 4.0 K/CMM (11/26/14 4:23 AM) (11/25/14 1:04 AM) (11/24/14 1:51 AM) Lymphocytes # [1.0-5.5 K/CMM] 1.2 K/CMM 1.3 K/CMM 1.1 K/CMM (11/26/14 4:23 AM) (11/25/14 1:04 AM) (11/24/14 1:51 AM) Monocytes # [0.0-0.8 K/CMM] 0.4 K/CMM 0.3 K/CMM 0.4 K/CMM (11/26/14 4:23 AM) (11/25/14 1:04 AM) (11/24/14 1:51 AM) Eosinophils # [0.0-0.5 K/CMM] 0.1 K/CMM 0.1 K/CMM 0.1 K/CMM (11/26/14 4:23 AM) (11/25/14 1:04 AM) (11/24/14 1:51 AM) PT [12.0-14.7 seconds] 14.7 seconds 13.9 seconds (11/25/14 1:04 AM) (11/24/14 1:51 AM) INR [0.85-1.17] 1.14 7 1.07 8 (11/25/14 1:04 AM) (11/24/14 1:51 AM) PTT [22.9-35.8 seconds] 28.5 seconds 9 28.2 seconds 10 (11/25/14 1:04 AM) (11/24/14 1:51 AM) 7Interpretive Data: RECOMMENDED RANGES FOR PROTIME INR: 2.0-3.0 for most medical and surgical thromboembolic states. 2.5-3.5 for artificial heart valves and recurrent embolism. INR SHOULD BE USED ONLY FOR PATIENTS ON STABLE ANTICOAGULANT THERAPY.8Interpretive Data: RECOMMENDED RANGES FOR PROTIME INR: 2.0-3.0 for most medical and surgical thromboembolic states. 2.5-3.5 for artificial heart valves and recurrent embolism. INR SHOULD BE USED ONLY FOR PATIENTS ON STABLE ANTICOAGULANT THERAPY.9Interpretive Data: Heparin Therapeutic Range: 57 - 92 [id number] Data: Heparin Therapeutic Range: 57 - 92 Seconds Medications Administered During Your Visit No data available for this section Immunizations Vaccine Date Refusal Reason pneumococcal 23-valent vaccine 11/24/14 Patient Refuses Procedures Procedure Type Body Site Date of Procedure Related Diagnosis Knee replacement Social History Social History Type Response Smoking Status Never smoker, Ready to change: No, Concerns about tobacco use in household: No, Exposure to Tobacco Smoke None, Cigarette Smoking Last 365 Days No, Reg Smoking Cessation Counseling No Assessment and Plan Extracted from: Title: Stroke Follow Up Author: Leida Alfaro Date: 11/26/14 Arranged for patient to follow up with [facility] on January 06, 2015 at 10 :30am with DAMIÁN Cardona/Dr. Diallo. Patient is aware and agreeable to appointment. Will remain available as needed. Leida Alfaro LMSW [facility]#[id number] [employer] Chair Addendum by Leida Alfaro on 11/26/2014 Patient will also follow up with her 13:11 Chemical Inspector, Dr. David Salmon [phone], to monitor her PT INR on Monday, November 28, 2014 at 11:15am. Extracted from: Title: Stroke Author: Bal Pierce DO Date: 11/23/14 STROKE TEAM HISTORY AND PHYSICAL Attending of Record: Dr. Begum Date of Admission: 11/24/14 Requesting Physician/Service: Transfer from OSH ([facility]) CC: expressive aphasia HISTORY OF PRESENT ILLNESS: Patient is a 74 year old right handed female with pmhx of hypertension, coronary artery disease, GERD, hyperthyroidism and mitral valve prolapse p/w expressive aphasia from OSH s/p tPA. Patient presente d to [facility] with acute onset of word finding difficulty around 7pm. Pt arrived at [facility] 1944 CTH was done at 1999. NIHSS was 8. At baseline patient is able to perform all of his ADLs without difficulty. TPA GIVEN CTH was negative for bleed. tPA contraindications were ruled out, and patient and family was explained in detail about benefit and risk of tPA. Total dose of tPA was calculated to be 90mg, 9mg was given as a bolus at 2043, followed by 81mg over an hour. BP was < 185/110 before tPA. No complications noted during and after TPA infusion. tPA administerd at 2041. REVIEW OF SYSTEMS: GEN: no fever, chills, weight loss, fatigue EYES: no blurred vision, double vision CARDIO: no chest pain, palpitations PULM: no shortness of breath, cough GI: no nausea, vomiting, diarrhea, no abd pain : no frequency, dysuria, hematuria NEURO: see HPI SKIN: no rash or lesion MSK: no pain, swelling, redness, heat in muscles, no limited ROM, weakness, or atrophy, no cramps LYMPH/IMMUNO: No lymph node enlargement/tenderness, no heat/cold intolerance PAST MEDICAL HISTORY: Hypertension, hypothyroidism, arthritis, mitral valve prolapse and mitral regurgitation. PAST SURGICAL HISTORY: In 08/2007, cath report showing luminal irregularities in all the coronary arteries with an ejection fraction of 55% to 59% with some mitral regurgitation , mitral valve prolapse with no obstructive terrance nary arterial disease. Also history of cholecystectomy, bilateral shoulder surgery, rectocele and cystocele repair, appendectomy and hernia sac repair. ALLERGIES: NEMBUTAL AND HYDROCHLOROTHIAZIDE. MACRODANTIN. FAMILY HISTORY: The patient's father was diagnosed with possible coronary arterial disease at age 36 and eventually at age 71, had history of hypertension. Mother has hypertension and history of pancreatic cancer along with the patient's sister. SOCIAL HISTORY: Currently lives with , has grown children somewhere else. A tobacco history which she quit 30 years ago, had a 86-jeth-dijl history. MEDICATIONS: KCL Omeprazole Valsartan Fenofibrate Pravachol Spironolactone Lasix Liothyronine ASA Atenolol Metolazone ALLERGIES: PHYSICAL EXAM: Vitals Tmp(F) Pulse BP RR SpO2 FIO2 11/24 00:04 ---- --- ----- -- 100 --- 11/23 23:41 98.1 --- ----- -- --- --- 11/23 23:32 97.2 --- ----- -- --- --- 11/23 23:15 ---- 64 131/56 17 100 --- 11/23 23:00 ---- 66 148/61 23 99 --- 24 Hr Tmax: 98.1F (36.72c) at 11/23 23:41 Vital Signs are the last 5 in the past 48 hours. GENERAL: Awake/drowsy/somnolent/comatose, alert/intubated/sedated, NAD. HEENT: - Normocephalic and atraumatic; MMM LUNGS - Clear to auscultation bilaterally with no wheezes CV - S1S2 RRR, no m/r/g, equal pulses bilaterally. ABDOMEN - Soft, nontender, nondistended with normoactive BS NEURO: Mental status: Awake, alert, and interactive. Intermittently follows commands, fluent speech but not making sense. Cranial nerves: Pupils equal, round, and reactive. R__4____mm L__4___mm. Visual cardenas intact to confrontation. Eye movements full without nystagmus. Face symmetric at rest and with activation. Facial s ensation is intact to light touch. Tongue and palate midline. Good strength in trapezius and sternocleidomastoid bilaterally. Motor: Normal bulk and tone. Strength is 5/5 proximally and distally. Sensation: Intact to light touch, pinprick, temperature and vibration throughout. Coordination: No dysmetria on finger-nose Reflexes: R Biceps 2+, Triceps 2+, Brachioradialis 2+, Patella 2+, Ankle 2+. L Biceps 2+, Triceps 2+, Brachioradialis 2+, Patella 2+, Ankle 2 +. Toes downgoing bilaterally. Gait: deferred NIH Stroke Scale (NIHSS) 0 1a. Level of Consciousness; 0-alert 1-drowsy 2-stupor 3-comatose 2 1b. LOC Questions month and age; 0-both 1-one 2-neither 1 1c. LOC Commands open/close eyes, human factors advisor lead/release non-paretic hand; 0-both 1- one 2-neither 0 2. Best Gaze; 0-nl 1-partial 2-forced gaze 0 3. Visual Cardenas; 0-No visual loss. 1-Partial hemianopia 2-Complete 3- Bilateral 0 4. Facial Palsy; 0-none 1-minor 2-partial 3-complete 0 5. Motor - R arm; 0-No drift 1-Drift 2-Some antigravity 3-No antigravity 4-No movement 0 6. Motor - R leg; 0-No drift 1-Drift 2-Some antigravity 3-No antigravity 4-No movement 0 7. Motor - L arm; 0-No drift 1-Drift 2-Some antigravity 3-No antigravity 4-No movement 0 8. Motor - L leg; 0-No drift 1-Drift 2-Some antigravity 3-No antigravity 4-No movement 0 9. Limb Ataxia; 0 absent 1 - 1limb 2 - 2 limbs 0 10. Sensory; 0-nl 1-partial loss 2-dense loss 2 11. Best Language; 0-nl 1-mild/mod 2-severe 3-mute 0 12. Dysarthria; 0-nl 1-mild/mod 2-severe x-untestable 1 13. Extinction and Inattention (formerly Neglect); 0-none 1-partial 2- complete TOTAL SCORE 6 SIGNIFICANT LABS: Creatinine: 1.9 , BUN 41 Glucose: 134 INR: 0.98 Cardiac Markers: negative x 1 BNP 152 DIAGNOSTIC TESTS: CT Head OSH: no acute abn; mild atrophy and chronic ischemic changes present CTA/Perfusion: pend MRI brain wo contr/MRA h/n: pend EKG: NSR ASSESSMENT: Patient is a 74 year old right handed female with pmhx of hypertension, coronary artery disease, GERD, hyperthyroidism and mitral valve prolapse p/w expressive aphasia from OSH s/p tPA. Patient presente d to [facility] with acute onset of word finding difficulty around 7pm. On exam patient has expressive aphasia but no obvious weakness noted. She was given tPA at 2043 after exclusion criteria was met. Her initial NIHSS was 8 and now a 6. Imaging reveals no acute infarct from OSH but we will repeat imaging here inlcuding MRI/MRA. DIFFERENTIAL DIAGNOSIS Left MCA stroke Etiology: TBD PLAN Post IV-thrombolysis Admit to stroke unit. Post IV t-PA care per protocol. Goal BP post-tPA < 180/105. IV NS 75 cc/h Telemetry CXR HOB flat No aspirin or heparin products for 24 hours post-t-PA, per protocol. If schaefer catheter present on admission, document necessity Atorvastatin 80mg daily has been ordered. MRI brain to evaluate for infarct. MRA h/n TTE to evaluate for cardiac source of embolus. Check fasting lipid panel and HbA1c. Treat fevers and blood sugars aggressively. 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 NPO prior to bedside swallow assessment; and escalation of care as determined by nurse DVT prophylaxis with SCDs. 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 Furthermore, I have discussed the case with and reviewed the resident's note and agree with the history, exam, assessment and plan. See note below for additions a nd/or exceptions and my findings. I have personally viewed the patient's radiographic studies and laboratory tests. 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 Plan: Cerebral thrombosis w/ infarct 434.01 Current suspected etiology: to be determined, suspect cardioembolic Continue evaluation: TTE to evaluate cardiac function and possible source of emboli, Check and HgbA1c, cardiac telemetry Treatment/Plan: Plavix for stroke prevention @ 24 hrs s/pt tpa, Statin, may need 30 day event monitor if no etiology elicited during admission Hypertension 401.9 Treatment: Start Oral BP meds, BP goals < 185 Hyperlipidemia 272.2 Treatment: Statin Physical Therapy/Occupational Therapy Evaluation Disposition recommendation: Speech and Language Recommendations: DVT Prophylaxis Treatment: SCD s, SQ Heparin @ 24 hrs Follow up care: Will need to follow up in stroke clinic in 4-6 weeks 6-8 weeks after discharge. Discuss philosophy of care with patient and family, reviewed and updated on plan of care and prognosis Code: 18327 Inpatient admission CORE MEASURES: 1) Antithrombotics have been ordered and given before the end of hospital day 2 and continued on discharge OR NOT APPLICABLE BECAUSE: 2) Statins have been ordered for LDL > 100 and will be continued on discharge OR NOT APPLICABLE BECAUSE: 3) Rehab assessment has been ordered OR I have assessed the patient and rehab IS NOT APPLICABLE AT THIS TIME BECAUSE: 4) The patient has Atrial Fibrillation/Flutter but was not discharged on anticoagulant medications due to risk of hemorrhagic transformation and will be continued on Antithrombotics until repeat CT scan is stable before initiated anticoagulation. 5) Stroke education: I have discussed with the patient and/or family in detail about 1. the signs and symptoms of stroke; 2. the importance of their early recognition and activation of EMS via 911; 3. s troke risk factors have been clearly identified and communicated to the patient ; 4. The importance of taking prescribed medication to treat these risk factors for secondary stroke prevention; and 5. th e importance of regular follow- up appointments to prevent stroke has also been emphasized. Teo Reeder MD ([place]) Plant Biology Professor of Neurology Pager: [phone] Addendum by Teo Reeder MD on 11/25/2014 19:06 The patient does not have AFIB Teo Reeder MD ([place]) Plant Biology Professor of Neurology Pager: [phone]
--- OUTSIDE RECORDS SUMMARY | 2018-08-08 06:22 | XMS REPORT ---
:1939 [facility] Team Providers Name Role Phone Bennett Salmon Provider Role Unavailable Encounters Encounter Location Date Unknown [place] [facility] Aug 12, 2015 Unknown [place] [facility] January 29, 2016 Unknown [place] [facility] March 11, 2016 Unknown [place] [facility] April 15, 2016 Unknown [place] [facility] Dec 19, 2014 PT/INR 3.0 [place] [facility] Dec 19, 2014 Unknown [place] [facility] March 23, 2015 Unknown [place] [facility] April 15, 2016 Problems Problem Type Condition ICD-9 Code Onset Dates Condition Status Problem Personal history of fall V15.88 Active Problem 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, benign, with heart failure and with chronic kidney disease stage I through stage IV, or unspecified Problem Upper respiratory tract 478.8 Active hypersensitivity reaction, site unspecified Problem Acute upper respiratory 465.9 Active infections of unspecified site Problem Unspecified transient cerebral 435.9 Active ischemia Problem Palpitations 785.1 Active Problem Other specified cardiac 427.89 Active dysrhythmias Problem Personal history of transient V12.54 Active ischemic attack [TIA], and cerebral infarction without residual deficits Problem Atrial fibrillation 427.31 Active Problem Transient cerebral ischemic G45.9 Active attack, unspecified Problem Palpitations R00.2 Active Problem History of falling Z91.81 Active Problem Personal history of transient Z86.73 Active ischemic attack (TIA), and cerebral infarction without residual deficits Problem Bradycardia, unspecified R00.1 Active Problem Arthropathy, unspecified M12.9 Active Problem Major depressive disorder, F32.9 Active single episode, unspecified Problem Abnormal electrocardiogram [ECG] R94.31 Active [EKG] Problem Morbid (severe) obesity due to E66.01 Active excess calories Problem Chest pain, unspecified R07.9 Active Problem Chronic kidney disease, N18.9 Active unspecified Problem Constipation, unspecified K59.00 Active Problem Shortness of breath R06.02 Active Problem Congestive heart failure, 428.0 Active unspecified Problem Mitral valve disorders 424.0 Active Problem Insomnia, unspecified 780.52 Active Problem Unspecified hypothyroidism 244.9 Active Problem Other and unspecified 272.4 Active hyperlipidemia Problem Insomnia, unspecified G47.00 Active Problem Chronic kidney disease, Stage 585.3 Active III (moderate) Problem Hypothyroidism, unspecified E03.9 Active Problem Hyperlipidemia, unspecified E78.5 Active Problem Essential (primary) hypertension I10 Active Problem 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 Problem Anxiety disorder, unspecified F41.9 Active Problem Impaired fasting blood sugar R73.01 Active Problem Female genuine stress N39.3 Active incontinence Problem Other malaise and fatigue 780.79 Active Problem Paroxysmal atrial fibrillation I48.0 Active Problem Obesity, unspecified 278.00 Active Problem Nonrheumatic mitral (valve) I34.0 Active insufficiency Problem Unspecified constipation 564.00 Active Problem Hypertensive heart and chronic I13.0 Active kidney disease with heart failure and stage 1 through stage 4 chronic kidney disease, or unspecified chronic kidney disease Problem Hypertension essential benign 401.1 Active Problem Chronic diastolic (congestive) I50.32 Active heart failure Problem Occlusion and stenosis of 433.10 Active carotid artery without mention of cerebral infarction Problem Unspecified arthropathy, site 716.90 Active unspecified Problem Depressive disorder, not 311 Active elsewhere classified Problem Nonspecific abnormal 794.31 Active electrocardiogram (ECG) (EKG) Problem Morbid obesity 278.01 Active Problem Shortness of breath 786.05 Active Problem Chest pain, unspecified 786.50 Active Medications Medication Code System Code Instructions Start Date End Date Status Dosage Cipro MEDISPAN [address] 500 MG Orally April 15 1 tablet -01 Twice a day 2015 Social History Social History Element Qualifiers Date Reported Smoking . Status: former smoker April 11, 2016 Marital Status: . April 11, 2016 Caffeine intake? . Status: Yes, What type: Coffee, Soft Drinks, April 11, 2016 1 cup a day New since last visit: none. April 11, 2016 Exercise . Status: Yes, Type: walking, biking April 11, 2016 Alcohol Use: . Status: No April 11, 2016 Travel outside [place]: no. April 11, 2016 Occup. exposure: none. April 11, 2016 Occupation: unemployed. April 11, 2016 Summary Purpose eClinicalWorks Submission
--- OUTSIDE RECORDS SUMMARY | 2018-08-08 06:22 | XMS REPORT ---
:1939 Author Organization [facility] Team Providers Name Role Phone Bennett Salmon Provider Role Unavailable Encounters Encounter Location Date Unknown [place] [facility] Aug 12, 2015 Unknown [place] [facility] January 29, 2016 Unknown [place] [facility] March 11, 2016 Unknown [place] [facility] April 15, 2016 Unknown [place] [facility] Dec 19, 2014 PT/INR 3.0 [place] [facility] Dec 19, 2014 Unknown [place] Copy [facility] March 23, 2015 Unknown [place] Copy Clerk April 15, 2016 Problems Problem Type Condition [...] Date End Date Status Dosage Cipro MEDISPAN [address] 500 MG Orally April 15 1 tablet [...]
--- OUTSIDE RECORDS SUMMARY | 2018-08-08 06:22 | XMS REPORT ---
:1939 [facility] Team Providers Name Role Phone Melissa Salmon Provider Role Unavailable Encounters Encounter Location Date Unknown [place] [facility] Aug 12, 2015 Unknown [place] [facility] January 29, 2016 Unknown [place] [facility] March 11, 2016 Unknown [place] [facility] April 15, 2016 Unknown [place] [facility] Dec 19, 2014 PT/INR 3.0 [place] [facility] Dec 19, 2014 Unknown [place] [facility] March 23, 2015 Unknown [place] [facility] Dec 20, 2016 Unknown [place] [facility] April 15, 2016 Other [place] [facility] Sep 09, 2016 Problems Problem Type Condition [...] Instructions Start End Status Dosage Date Date Tikosyn MEDISPAN [id number] 500 Inactive TAKE ONE CAPSULE BY MOUTH TWICE A DAY Dofetilide MEDISPAN [address]-41 500 MCG Orally Dec 20, Active 1 capsule Twice a day 2016 Social History Social History Element Qualifiers Date Reported Smoking . Status: former smoker Sep 27, 2016 Marital Status: . Sep 27, 2016 Caffeine intake? . Status: Yes, What type: Coffee, Soft Drinks, Sep 27, 2016 1 cup a day New since last visit: none. Sep 27, 2016 Exercise . Status: Yes, Type: walking, biking Sep 27, 2016 Alcohol Use: . Status: No Sep 27, 2016 Travel outside [place]: no. Sep 27, 2016 Occup. exposure: none. Sep 27, 2016 Occupation: unemployed. Sep 27, 2016 Summary Purpose eClinicalWorks Submission
[2018-08-08] MEDS ORDERED: NS 0.9% VIAL 0 ML ONE (06:52)
[2018-08-08] MEDS ORDERED: BUPIVACAINE 0.25% PF 10 ML VIAL ONE (06:52)
[2018-08-08] MEDS ORDERED: LIDOCAINE 1% MPF 30 ML VIAL ONE (06:52)
[2018-08-08] MEDS ORDERED: TRIAMCINOLONE ACETON 40 MG/ML VIAL ONE (06:52)
[2018-08-08] MEDS ORDERED: PROPOFOL 200 MG/20 ML VIAL IV ONE (06:57)
[2018-08-08] MEDS ORDERED: FENTANYL CITR 100 MCG/2 ML ONE (06:58)
[2018-08-08] MEDS ORDERED: LIDOCAINE 2% MPF 5 ML VIAL ONE (06:58)
[2018-08-08] MEDS ORDERED: MIDAZOLAM HCL 2 MG/2 ML INJ ONE (06:58)
[2018-08-08] MEDS: Ringers Lactate 1,000 ML IV ONE (07:05)
[2018-08-08] MEDS ORDERED: CEFAZOLIN SODIUM 1 GM/VIAL ONE (07:15)
[2018-08-08] MEDS ORDERED: ONDANSETRON HCL 40 MG/20 ML VIAL ONE (08:09)
--- NOTE | 2018-08-08 08:19 | RAD REPORT ---
EXAM DESCRIPTION: RAD - Fluoro Guide Spinal Inj - 08/08/2018 7:40 am CLINICAL HISTORY: LUMBAR STEROID INJECTION IN OR 1 COMPARISON: No comparisons FINDINGS: Fluoroscopic imaging was submitted from lumbar steroid injection. Details of the procedure not available. Total fluoro time is 0.2 minutes. No images were obtained.
--- NOTE | 2018-08-08 18:40 | OP ---
Date of Procedure: 08/08/2018 Surgeon: Thiago Beltran DO Preop Diagnoses: Chronic low back pain, lumbar facet arthropathy, lumbar spondylosis, lumbar degener ative disk disease. Postop Diagnoses: Chronic low back pain, lumbar facet arthropathy, lumbar spondylosis, lumbar degene rative disk disease. Procedures Performed: 1.Fluoroscopy with evaluation of lumbar spine. 2.Lumbar epidural steroid injection. Anesthesia: MAC with IV sedation. Estimated Blood Loss: Minimal. Complication: None. Procedure In Detail: Ms. You is a 78-year-old female with a history of having chronic low back p ain. She was taken to the OR room #1, placed in the prone position. Back was prepped and draped in sterile fashion. Sacral hiatus was identified in the lateral fluoroscopic view. One percent lidocai ne was used for local anesthesia. A 16-gauge RK needle was used until passing into the sacral hiatus . Needle tip position was confirmed in the AP and lateral fluoroscopic views. Next, the epidural ca theter was advanced through the needle and advanced in a cephalad direction. Catheter tip was placed at the mid L5 vertebral body region at the midline. Catheter tip was confirmed in the AP and latera l fluoroscopic views. Next, 10 cc of Omnipaque dye was used to perform a diagnostic lumbar epidurogr am. There was good spread of the dye in a cephalad direction from the level to the L4-L5 level. Nex t, 3 cc of 0.25% Marcaine was given as a test dose after few minutes. There was no evidence of intra thecal, intravascular subdural spread of local anesthetic. Next, 7 cc of 0.25% Marcaine was mixed wi th 40 mg of Kenalog. This was injected slowly with frequent negative aspirations. After the procedure was completed, the patient then was taken to the recovery room in stable condition. MR/MODL Voice ID: [id number] Report ID: [id number]
--- NOTE | 2018-08-08 18:46 | DS ---
Date of Discharge: 08/08/2018 Admission Diagnoses: Chronic back pain, lumbar facet arthropathy, lumbar spondylosis, lumbar degener ative disk disease. Discharge Diagnoses: Chronic back pain, lumbar facet arthropathy, lumbar spondylosis, lumbar degener ative disk disease. Pertinent History: Per her history and physical on the chart. Hospital Course: Uneventful. Condition On Discharge: Good. Followup: She is to follow up with us in next week for her next refill. IRASEMA Voice ID: [id number] Report ID: [id number]
== END 2018-08-08 08:50 | disposition home or self-care (01) ==
LOC: OR 06:10
PROVIDERS: ATTEND Anesthesiology
PROC: 3E0R3BZ Introduction of Anesthetic Agent into Spinal Canal, Percutaneous Approach (ICD-10-PCS; 2018-08-08)
PROC: B01BZZZ Fluoroscopy of Spinal Cord (ICD-10-PCS; 2018-08-08)
PROC: 3E0R33Z Introduction of Anti-inflammatory into Spinal Canal, Percutaneous Approach (ICD-10-PCS; principal; 2018-08-08 07:00)
DX: M54.5 Low back pain (principal); M54.16 Radiculopathy, lumbar region; M47.896 Other spondylosis, lumbar region; M51.36 Other intervertebral disc degeneration, lumbar region
CPT/HCPCS: 36415; 62323; 77003; 85025; 85610; 85730; C1751; J0690; J2250; J2405; J3301; J3010

== ENCOUNTER 2018-08-22 06:00 | Day surgery (SDC) | payer OTHER, MEDICARE ==
--- OUTSIDE RECORDS SUMMARY | 2018-08-22 06:07 | XMS REPORT | Continuity of Care Document ---
:1940 Author Organization Interface Problems Problem Status Onset Classification Date Comments Source Date Reported ISCHEMIC STROKE Active [address] LFLT TRANSFER#[id number] Atrial fibrillation Active Problem 06/17/2017 [facility] Consult Personal history of Active Problem 06/17/2017 [place] transient ischemic Cardiology attack [TIA], and Consult cerebral infarction without residual deficits Palpitations Active Problem 06/17/2017 [facility] Consult Transient cerebral Active Problem 06/17/2017 [place] ischemic attack, Cardiology unspecified Consult Bradycardia, Active Problem 06/17/2017 [place] unspecified Cardiology Consult Personal history of Active Problem 06/17/2017 [place] transient ischemic Cardiology attack , and Consult cerebral infarction without residual deficits History of falling Active Problem 06/17/2017 [facility] Consult Abnormal Active Problem 06/17/2017 [place] electrocardiogram Cardiology [ECG] [EKG] Consult Morbid obesity due Active Problem 06/17/2017 [place] to excess calories Cardiology Consult Arthropathy, Active Problem 06/17/2017 [place] unspecified Cardiology Consult Major depressive Active Problem 06/17/2017 [place] disorder, single Cardiology episode, unspecified Consult Chest pain, Active Problem 06/17/2017 [place] unspecified Cardiology Consult Shortness of breath Active Problem 06/17/2017 [facility] Consult Constipation, Active Problem 06/17/2017 [place] unspecified Cardiology Consult Hypothyroidism, Active Problem 06/17/2017 [place] unspecified Cardiology Consult Hyperlipidemia, Active Problem 06/17/2017 [place] unspecified Cardiology Consult Chronic kidney Active Problem 06/17/2017 [place] disease, unspecified Cardiology Consult Insomnia, Active Problem 06/17/2017 [place] unspecified Cardiology Consult Nonrheumatic mitral Active Problem 06/17/2017 [place] insufficiency Cardiology Consult Paroxysmal atrial Active Problem 06/17/2017 [place] fibrillation Cardiology Consult 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 Essential Active Problem 06/17/2017 [place] hypertension [facility]iology Consult Chronic kidney Active Problem 06/17/2017 [place] disease, Stage III Cardiology Consult Congestive 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 [place] failure, unspecified Cardiology Consult 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 [place] and chronic kidney Cardiology disease with heart Consult failure and stage 1 through stage 4 chronic kidney disease, or unspecified chronic kidney disease Hypertension Active Problem 06/17/2017 [place] essential benign Cardiology Consult 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 [place] stenosis of carotid Cardiology artery without Consult mention of cerebral infarction Insomnia, Active Problem 06/17/2017 [place] unspecified Cardiology Consult Mitral valve Active Problem 06/17/2017 [place] disorders [facility]iology Consult Other and Active Problem 06/17/2017 [place] unspecified Cardiology hyperlipidemia Consult Unspecified Active Problem 06/17/2017 [place] hypothyroidism Cardiology Consult Obesity, unspecified Active Problem 06/17/2017 [facility] Consult Other malaise and Active Problem 06/17/2017 [place] fatigue Cardiology Consult Shortness of breath Active Problem 06/17/2017 [facility] Consult Chest pain, Active Problem 06/17/2017 [place] unspecified Cardiology Consult Chronic diastolic Active Problem 06/17/2017 [place] heart failure Cardiology Consult Unspecified Active Problem 06/17/2017 [place] constipation Cardiology Consult Impaired fasting Active Problem 06/17/2017 [place] blood sugar Cardiology Consult Overactive bladder Active Problem 06/17/2017 [facility] Consult Anxiety disorder, Active Problem 06/17/2017 [place] unspecified Cardiology Consult Incontinence without Active Problem 06/17/2017 [place] sensory awareness Cardiology Consult Encounter for Active Problem 06/17/2017 [place] screening for Cardiology diabetes mellitus Consult Retention of urine, Active Problem 06/17/2017 [place] unspecified Cardiology Consult Hypertensive 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 [place] and chronic kidney Cardiology disease, benign, Consult with heart failure and with chronic kidney disease stage I through stage IV, or unspecified Depressive disorder, Active Problem 06/17/2017 [place] not elsewhere Cardiology classified Consult Urinary tract Active Problem 06/17/2017 [place] infection, site not Cardiology specified Consult Unspecified Active Problem 06/17/2017 [place] arthropathy, site Cardiology unspecified Consult Frequency of Active Problem 06/17/2017 [place] micturition Cardiology Consult Morbid obesity Active Problem 06/17/2017 [facility] Consult Female genuine Active Problem 06/17/2017 [place] stress incontinence Cardiology Consult Nonspecific abnormal Active Problem 06/17/2017 [place] electrocardiogram Cardiology (EKG) Consult Palpitations Active Problem 06/17/2017 [facility] Consult Other specified Active Problem 06/17/2017 [place] cardiac dysrhythmias Cardiology Consult Upper respiratory Active Problem 06/17/2017 [place] tract Cardiology hypersensitivity Consult reaction, site unspecified Unspecified Active Problem 06/17/2017 [place] transient cerebral Cardiology ischemia Consult Personal history of Active Problem 06/17/2017 [place] fall Cardiology Consult Acute upper Active Problem 06/17/2017 [place] respiratory [facility]iology infections of Consult unspecified site Acid reflux disease Resolved Problem 11/28/2014 [facility] High cholesterol Resolved Problem 11/28/2014 [facility] Hyperlipidemia Resolved Problem 11/28/2014 [facility] Hypertension Resolved Problem 11/28/2014 [facility] Hypothyroidism Resolved Problem 11/28/2014 [facility] CVA Active [facility] Medications Medication Details Route Status Patient Ordering Order Source Instructions Provider Date Eliquis 1 tablet Orally Active 5 MG Orally [facility] [place] twice a day 2016 Cardiology Consult Edarbyclor 1 tablet Orally Active 40-25 MG [facility] [place] Orally Once a 2017 Cardiology day Consult Edarbyclor 1 tablet Orally Active 40-25 MG [facility] [place] Orally Once a 2016 Cardiology day Consult Dofetilide 1 capsule Orally Active 500 MCG [facility] [place] Orally Twice 2017 Cardiology a day Consult Cipro 1 tablet Orally Active 500 MG Orally [facility] [place] Twice a day 2015 Cardiology Consult Warfarin 5 mg, 1 tab, Inactive [facility] Route: PO, 2014 Medical Drug form: Center TAB, Daily, Dosing Weight 114.318, kg, Start date: 11/26/14 12:03:00, Duration: 1 doses or times, Stop date: 11/26/14 12:03:00Notes : Nurse to ensure documentation of patient education per anticoagulati on policy. Avoid large intake of vitamin-K containing foods diet. (Same As: Coumadin) valsartan 40 mg 40 mg=1 tab, Active 11/26[facility] oral tablet PO, Q12H, # 2015 Medical 60 tab, 3 Center Refill(s) atorvastatin 40 40 mg=1 tab, Active 11/26[facility] [place] mg oral tablet PO, Bedtime, 2015 Medical # 30 tab, 3 Center Refill(s) clopidogrel 75 mg 75 mg=1 tab, Active 11/26[facility] oral tablet PO, Daily, # 2015 Medical 30 tab, 0 Center Refill(s) warfarin 5 mg 5 mg, PO, Active 11/26[facility] oral tablet Daily, # 2 2015 Medical tab, 0 Center Refill(s) Atenolol 25 MG 12.5 mg=0.5 Active 11/26[facility] Oral Tablet tab, PO, 2015 Medical Daily, 0 Center Refill(s) valsartan 40 mg, 1 tab, Inactive [place] Route: PO, 2014 Medical Drug form: [place] TAB, Q12H, Dosing Weight 114.318, kg, Start date: 11/26/14 9:00:00, Duration: 30 day, Stop date: 12/25/14 21:00:00Notes : Same as Di[place] Protonix 40 mg, 1 tab, No Longer [place] Route: PO, Active 2014 Medical Drug form: [place] ECTAB, Before Dinner, Start date: 11/25/14 16:30:00, Duration: 30 day, Stop date: 12/24/14 16:30:00Notes : Tablet should not be chewed or crushed. (Same as: Protonix) Atenolol 12.5 mg, 0.5 No Longer [place] tab, Route: Active 2014 Medical PO, Drug Center form: TAB, Daily, Dosing Weight 114.318, kg, Start date: 11/25/14 9:00:00, Duration: 30 day, Stop date: 12/24/14 9:00:00Notes: (Same As:Tenormin) valsartan 320 mg, No Longer [facility] Route: PO, Active 2014 Medical Drug form: [place] TAB, Daily, Dosing Weight 114.318, kg, Start date: 11/25/14 9:00:00, Duration: 30 day, Stop date: 12/24/14 9:00:00 Thyroxine 100 No Longer [facility] microgram, 1 Active 2014 Medical tab, Route: [place] PO, Drug form: TAB, Q630AM, Dosing Weight 114.318, kg, Start date: 11/25/14 6:30:00, Duration: 30 day, Stop date: 12/24/14 6:30:00Notes: Take 1 hour before or 2 hours after meal; Enteral feeds may interefere with the absorption of this medication. (Same as:Levothroid , Synthroid) heparin, porcine 7,500 unit, No Longer [place] 1.5 mL, Active 2014 Medical Route: SUB-Q, [place] Drug form: INJ, Q8H, Dosing Weight 114.318, kg, Start date: 11/24/14 22:00:00, Duration: 30 day, Stop date: 12/24/14 16:00:00Notes : porcine heparin Plavix 75 mg, 1 tab, No Longer [facility] Route: PO, Active 2014 Medical Drug form: Center TAB, Daily, Dosing Weight 114.318, kg, Start date: 11/24/14 22:00:00, Duration: 30 day, Stop date: 12/24/14 9:00:00Notes: (Same As: Plavix) Tylenol 650 mg, 2 No Longer [facility] tab, Route: Active 2014 Medical PO, Drug Center form: TAB, Q6H, Dosing Weight 114.318, kg, PRN Pain, Start date: 11/24/14 21:16:00, Duration: 30 day, Stop date: 12/24/14 21:15:00Notes : Do not exceed 4 gm/day. (Same as: Tylenol) atorvastatin 40 mg, 1 tab, No Longer [facility] Route: PO, Active 2014 Medical Drug form: Center TAB, Bedtime, kg, Start date: 11/24/14 21:00:00, Duration: 30 day, Stop date: 12/23/14 21:00:00Notes : (Same as: Lipitor) Bupropion 150 mg, 1 No Longer [facility] tab, Route: Active 2014 Medical PO, Drug Center form: ERTAB, BID, Dosing Weight 114.318, kg, Start date: 11/24/14 17:00:00, Duration: 30 day, Stop date: 12/24/14 9:00:00Notes: (Do not crush) (Same As: Wellbutrin SR) valsartan 40 mg, Route: Inactive [facility] PO, BID, 2014 Medical Dosing Weight Center 114.318, kg, Start date: 11/24/14 17:00:00, Duration: 30 day, Stop date: 12/24/14 9:00:00 Triiodothyronine 10 microgram, No Longer [facility] 2 tab, Route: Active 2014 Medical PO, Drug Center form: TAB, QAM, Dosing Weight 114.318, kg, Priority: NOW, Start date: 11/24/14 15:35:00, Duration: 30 day, Stop date: 12/24/14 9:00:00Notes: (Same as: Cytomel) Atenolol 100 MG 50 mg=0.5 No Longer [facility] Oral Tablet tab, PO, BID, Active 2015 Medical # 30 tab, 0 Center Refill(s) pravastatin 40 mg 40 mg=1 tab, No Longer [facility] oral tablet PO, Bedtime, Active 2015 Medical # 30 tab, 0 Center Refill(s) Furosemide 40 MG 40 mg=1 tab, No Longer [place] Oral Tablet PO, Daily, # Active 2015 Medical [Lasix] 30 tab, 0 Center Refill(s) spironolactone 25 25 mg=1 tab, No Longer [facility] mg oral tablet PO, Daily, # Active 2014 Medical 60 tab, 0 Center Refill(s) Potassium 20 mEq=1 tab, No Longer [place] Chloride 20 MEQ PO, Daily, 0 Active 2015 Medical Extended Release Refill(s) Center Tablet omeprazole 40 mg 40 mg=1 cap, Active [place] oral delayed PO, Daily, # 2015 Medical release capsule 30 cap, 0 Center Refill(s) Metolazone 5 MG 5 mg=1 tab, No Longer [facility] Oral Tablet PO, Daily, # Active 2015 Medical 30 tab, 0 Center Refill(s) liothyronine 5 10 Active [facility] mcg oral tablet microgram=2 2014 Medical tab, PO, QAM, Center # 30 tab, 0 Refill(s) Fenofibrate 160 160 mg=1 tab, No Longer [facility] MG Oral Tablet PO, Daily, # Active 2015 Medical 30 tab, 0 Center Refill(s) Zolpidem tartrate 10 mg=1 tab, Active [place] 10 MG Oral Tablet PO, Bedtime, 2015 Medical [Ambien] for sleep, 0 Center Refill(s) buPROPion 150 150 mg=1 tab, Active [facility] mg/24 hours oral PO, BID, # 30 2015 Medical extended release tab, 0 Center tablet Refill(s) Albuterol 0.09 2 puff, No Longer [facility] MG/ACTUAT Metered INHALATION, Active 2015 Medical Dose Inhaler Q6H, as Center [Ventolin] needed for wheezing, # 17 gm, 0 Refill(s) levothyroxine 100 100 Active [place] mcg (0.1 mg) oral microgram=1 2014 Medical tablet tab, PO, QA, Center # 30 tab, 0 Refill(s) doxazosin 4 mg 4 mg=1 tab, Active [facility] oral tablet PO, Daily, # 2015 Medical 30 tab, 0 Center Refill(s) valsartan 320 mg 320 mg=1 tab, No Longer [facility] oral tablet PO, Daily, # Active 2014 Medical 30 tab, 0 Center Refill(s) Triiodothyronine 5 microgram, Inactive [facility] 1 tab, Route: 2014 Medical PO, Drug Center form: TAB, Daily, Dosing Weight 114.318, kg, Start date: 11/24/14 14:09:00, Duration: 30 day, Stop date: 12/24/14 9:00:00Notes: (Same as: Cytomel) Reglan 5 mg, 1 mL, Inactive [facility] Route: IV, 2014 Medical Drug form: [place] INJ, ONCE, Dosing Weight 114.318, kg, Start date: 11/24/14 11:44:00, Stop date: 11/24/14 11:44:00Notes : (Same as: Reglan) Magnesium Sulfate 2 gm, 50 mL, Inactive [facility] Route: IVPB, 2014 Medical Drug form: [place] INJ, ONCE, Dosing Weight 114.318, kg, Total dose=2 gm, Start date: 11/24/14 11:27:00, Duration: 1 doses or times, Stop date: 11/24/14 11:27:00 pneumococcal 0.5 ml, Inactive [facility] capsular Route: IM, 2014 Medical polysaccharide Drug Form: [place] type 1 vaccine / INJ, Daily, pneumococcal Start date: capsular 11/24/14 polysaccharide 9:00:00, Stop type 10A vaccine date: / pneumococcal 11/24/14 capsular 23:59:00Notes polysaccharide : (Same as: type 11A vaccine Pneumovax 23) / pneumococcal Refrigerate capsular polysaccharide type 12F vaccine / pneumococcal capsular polysacchar Saline Flush 0.9% 10 ml, Route: No Longer [facility] IVP, Drug Active 2014 Medical Form: INJ, Center kg, Q12H, Start date: 11/24/14 9:00:00, Duration: 30 day, Stop date: 12/23/14 21:00:00Notes : (Same as: BD Posiflush) Versed 0.5 mg, 0.5 Inactive [facility] mL, Route: 2014 Medical IVP, Drug Center form: INJ, ONCE, Dosing Weight 114.318, kg, Start date: 11/24/14 8:31:00, Stop date: 11/24/14 8:31:00Notes: (Same as: Versed) Pravastatin 40 mg=1 tab, Inactive [facility] Sodium 40 MG Oral PO, Bedtime, 2014 Medical Tablet # 30 tab, 0 Center [Pravachol] Refill(s) aspirin 0 Refill(s) Inactive [facility] 2014 Medical Center Fenofibrate 160 160 mg=1 tab, Inactive [facility] MG Oral Tablet PO, Daily, # 2015 Medical 30 tab, 0 Center Refill(s) Atenolol 0 Refill(s) Inactive [facility] 2014 [facility] valsartan 320 mg 320 mg=1 tab, Inactive [facility] oral tablet PO, Daily, # 2015 Medical 30 tab, 0 Center Refill(s) Potassium 0 Refill(s) Inactive [facility] Chloride 20 MEQ 2014 Medical Extended Release Center Tablet Metolazone 5 MG 5 mg=1 tab, Inactive [facility] Oral Tablet PO, Daily, # 2015 Medical 30 tab, 0 Center Refill(s) Furosemide 40 MG 40 mg=1 tab, Inactive [facility] Oral Tablet PO, Daily, # 2015 Medical [Lasix] 30 tab, 0 Center Refill(s) liothyronine 5 5 microgram=1 Inactive [facility] mcg oral tablet tab, PO, 2014 Medical Daily, # 30 Center tab, 0 Refill(s) Omeprazole 0 Refill(s) Inactive [facility] 2014 Medical Center spironolactone 25 0 Refill(s) Inactive [facility] mg oral tablet 2014 [facility] Center Zofran 4 mg, 2 mL, Inactive [facility] Route: IVP, 2014 Medical Drug form: Center INJ, ONCE, Dosing Weight 114.318, kg, Start date: 11/24/14 7:08:00, Stop date: 11/24/14 7:08:00Notes: (Same as: Zofran) Tylenol 650 mg, 2 Inactive [facility] tab, Route: 2015 Medical PO, Drug Center form: TAB, Q6H, kg, PRN Pain 1-3/Temp > 99.5 F, Start date: 11/24/14 0:48:00, Stop date: 12/24/14 0:47:00Notes: Do not exceed 4 gm/day. (Same as: Tylenol) Sodium Chloride 1,000 mL, No Longer [facility] 0.154 MEQ/ML Rate: 75 Active 2014 Medical Injectable ml/hr, Infuse Center Solution over: 13.3 hr, Route: IV, Total Volume: 1,000, Start date: 11/23/14 23:06:00, Duration: 30 day, Stop date: 12/23/14 23:05:00 Saline Flush 0.9% 10 ml, Route: No Longer [facility] IVP, Drug Active 2014 Medical Form: INJ, Center kg, PRN, PRN Line Flush, Start date: 11/23/14 22:58:00, Duration: 30 day, Stop date: 12/23/14 22:57:00Notes : (Same as: BD Posiflush) Acetaminophen 650 mg, 2 No Longer [facility] tab, Route: Active 2014 Medical PO, [...] Updated Comments Source pneumococcal 11/24/2014 [facility] Results Order Name Results Value Reference Date Interpretation Comments Source Range CHEM PANEL Magnesium Lvl 2.1 mg/dL 1.8 - 2.4 11/26 [facility] CHEM PANEL Phosphorus 2.8 mg/dL 2.5 - 4.5 11/26 2014 [facility] CHEM PANEL eGFR 40 11/26 1Result Comment: The eGFR is calculated using the CKD-EPI formula. In most young, healthy individuals the eGFR will be >90 mL/ min/1.73m2. The eGFR declines with age. An eGFR of 60-89 may be normal in [facility] mL/min/1.7 some populations, particularly the elderly, for whom the CKD-EPI formula has not been extensively validated. Use of the eGFR is not recommended in the following populations: [address] Individuals with unstable creatinine concentrations, including [...] values reflect the clinical guidelines of the [place] [employer]. [facility] CHEM PANEL BUN 18 mg/dL 7 - 22 11/26 [facility] CHEM PANEL Creatinine 1.3 mg/dL 0.5 - 1.4 11/26 [facility] CHEM PANEL Sodium Lvl 136 meq/L 135 - 145 11/26 [facility] CHEM PANEL Chloride Lvl 102 meq/L 95 - 109 11/26 [facility] CHEM PANEL Potassium Lvl 3.5 meq/L 3.5 - 5.1 11/26 [facility] CHEM PANEL Calcium Lvl 9.0 mg/dL 8.5 - 10.5 11/26 [facility] CHEM PANEL CO2 25 meq/L 24 - 32 11/26 [facility] CHEM PANEL AGAP 12.5 meq/L 10.0 - 11/26 20.0 [facility] HEMATOLOGY RDW 13.1 % 11.5 - 11/26 14.5 /2014 [facility] HEMATOLOGY MCH 32.4 pg 27.0 - 02/ 31.0 /2014 [facility] HEMATOLOGY MCV 93.5 fL 80.0 - 02 98.0 /2014 [facility] HEMATOLOGY MCHC 34.6 g/dL 32.0 - 02/ 36.0 /2014 [facility] HEMATOLOGY Hct 33.6 % 36.0 - / 48.0 /2014 [facility] HEMATOLOGY Hgb 11.6 g/dL 12.0 - 02 16.0 /2014 [facility] HEMATOLOGY RBC 3.60 M/CMM 4.20 - 02 5.40 /2014 [facility] HEMATOLOGY WBC 4.6 K/CMM 3.7 - 10.4 11/26 [facility] HEMATOLOGY MPV 8.3 fL 7.4 - 10.4 11/[address] [place] [address] HEMATOLOGY Platelet 149 K/CMM 133 - [address] HEMATOLOGY Segs 62.3 % 45.0 - 02 [facility] 75.0 [facility] HEMATOLOGY Lymphocytes # 1.2 K/CMM 1.0 - 5.5 02 [facility] HEMATOLOGY Monocytes # 0.4 K/CMM 0.0 - 0.[address] [place] [address] HEMATOLOGY Eosinophils 3.0 % 0.0 - 4.0 02 [facility] HEMATOLOGY Lymphocytes 26.2 % 20.0 - 11/26 [facility] 40.0 [facility] HEMATOLOGY Segs-Bands # 2.9 K/CMM 1.5 - 8.1 11/[address] HEMATOLOGY Basophils 0.5 % 0.0 - 1.0 02/ [facility] HEMATOLOGY Monocytes 8.0 % 2.0 - 12.0 11/26 [facility] [address] [place] [address] HEMATOLOGY Eosinophils # 0.1 K/CMM 0.0 - 0.5 11/[address] CHEM PANEL Phosphorus 3.1 mg/dL 2.5 - 4.5 11/[address] CHEM PANEL eGFR 34 02 2Result Comment: The eGFR is calculated using the CKD-EPI formula. In most young, healthy individuals the eGFR will be >90 mL/ min/1.73m2. The eGFR declines with age. An eGFR of 60-89 may be normal in [facility] mL/min/1.7 /2014 some populations, particularly the elderly, for whom the CKD-EPI formula has not been extensively validated. Use of the eGFR is not recommended in the following populations: [address] Individuals with unstable creatinine concentrations, including [...] CO2 25 meq/L 24 - 32 11/25 [facility] CHEM PANEL AGAP 12.8 meq/L 10.0 - 11/25 20.0 [facility] CHEM PANEL Calcium Lvl 8.7 mg/dL 8.5 - 10.5 11/25 2014 [facility] CHEM PANEL Chloride Lvl 104 meq/L 95 - 109 11/25 2014 [facility] CHEM PANEL BUN 23 mg/dL 7 - 22 11/25 [facility] CHEM PANEL Sodium Lvl 138 meq/L 135 - 145 11/25 [facility] CHEM PANEL Glucose Lvl 82 mg/dL 70 - 99 11/25 5Interpretive Data: Adult reference range values reflect the clinical guidelines of the [place] [employer]. [facility] CHEM PANEL Creatinine 1.5 mg/dL 0.5 - 1.4 11/25 [facility] CHEM PANEL Potassium Lvl 3.8 meq/L 3.5 - 5.1 11/25 [facility] CHEM PANEL Magnesium Lvl 2.7 mg/dL 1.8 - 2.4 11/25 [facility] HEMATOLOGY Segs 63.1 % 45.0 - 11/25 75.0 [facility] HEMATOLOGY Lymphocytes 27.1 % 20.0 - 02 40.0 [facility] HEMATOLOGY Monocytes 7.2 % 2.0 - 12.0 11/25 2014 [facility] HEMATOLOGY Eosinophils # 0.1 K/CMM 0.0 - 0.5 11/25 [facility] HEMATOLOGY Eosinophils 2.2 % 0.0 - 4.0 11/25 [facility] HEMATOLOGY Basophils 0.4 % 0.0 - 1.0 11/25 [facility] HEMATOLOGY Segs-Bands # 3.1 K/CMM 1.5 - 8.1 11/25 [facility] HEMATOLOGY Monocytes # 0.3 K/CMM 0.0 - 0.8 11/25 [facility] HEMATOLOGY Lymphocytes # 1.3 K/CMM 1.0 - 5.5 11/25 [facility] HEMATOLOGY MPV 8.5 fL 7.4 - 10.4 11/25 [facility] HEMATOLOGY MCH 31.6 pg 27.0 - 11/25 31.0 [facility] HEMATOLOGY MCV 93.4 fL 80.0 - 11/25 [facility] 98.0 /2014 [facility] HEMATOLOGY Hct 33.2 % 36.0 - 11/25 [facility] 48.0 /2014 [facility] HEMATOLOGY Platelet 151 K/CMM 133 - 450 11/25 [facility] HEMATOLOGY RDW 13.1 % 11.5 - 11/25 14.5 [facility] HEMATOLOGY MCHC 33.8 g/dL 32.0 - 11/25 36.0 /2014 [facility] HEMATOLOGY Hgb 11.2 g/dL 12.0 - 02 16.0 [facility] HEMATOLOGY RBC 3.56 M/CMM 4.20 - 11/25 5.40 /2014 [facility] HEMATOLOGY WBC 4.9 K/CMM 3.7 - 10.4 11/25 [facility] HEMATOLOGY INR 1.14 0.85 - 11/25 7Interpretive Data: RECOMMENDED RANGES FOR PROTIME INR: [facility] 1.17 2.0-3.0 for most medical and surgical thromboembolic states. Medical 2.5-3.5 for artificial heart valves and recurrent embolism. Center INR SHOULD BE USED ONLY FOR PATIENTS ON STABLE ANTICOAGULANT THERAPY. HEMATOLOGY PTT 28.5 s 22.9 - 02 9Interpretive [facility] 35.8 /2014 Data: Heparin [facility] Range: 57 - 92 Seconds HEMATOLOGY PT 14.7 s 12.0 - 02/03 [facility] 14.7 /2014 [facility] THYROID TSH 3.190 0.360 - 11/25 [facility] PANEL uIU/mL 3.740 /2014 Medical Center Neck wo Neck wo EXAM: MRI BRAIN 11/24 - [facility] contrast contrast MRA /2014 - Medical MRA EXAM: MRA BRAIN This report was dictated by a [employer]/ Fellow. I have personally reviewed the images [...] caliber. No aneurysm is identified. Right type WEIGHER BULKER is present, a normal variant. There is [...] Brain wo EXAM: MRI BRAIN 11/24 - [facility] contrast contrast MRA /2014 - Medical MRA EXAM: MRA BRAIN This report was dictated by a [employer]/ Fellow. I have personally reviewed the images [...] caliber. No aneurysm is identified. Right type WEIGHER BULKER is present, a normal variant. There is [...] Brain wo EXAM: MRI BRAIN 11/24 - [facility] contrast contrast MRI /2014 - Medical MRI EXAM: MRA BRAIN This report was dictated by a [employer]/ Fellow. I have personally reviewed the images as Center well as the Resident's interpretation and agree with the findings. EXAM: MRA NECK Read by: Katherine Joaquin DO Resident: Katherine Joaquin DO Dictated Date/time: 11/24/14 10:42 Electronically Signed [...] caliber. No aneurysm is identified. Right type WEIGHER BULKER is present, a normal variant. There is [...] AND UA <=1.0 0.1 - 1.0 11/24 [facility] Urobilinogen mg/dL /[address] [place] [address] URINE AND UA Renal Epi 7 /LPF <=0 /LPF 11/[address] URINE AND UA Sq Epi Moderate Few /LPF 11/24 [facility] /LPF /[address] [place] [address] URINE AND UA WBC 2 /HPF 0 - 5 11/[address] URINE AND UA Nitrite Negative Negative 11/[address] (11/24/14 2:06 AM) [place] URINE AND UA Leuk Est Negative Negative 11/[address] (11/24/14 2:06 AM) [place] URINE AND UA Blood Negative Negative 11/[address] (11/24/14 2:06 AM) [place] URINE AND UA Protein Negative Negative 11/24 [facility] mg/dL mg/dL /2014 [facility] URINE AND UA pH 6.5 5.0 - 8.0 11/[address] URINE AND UA Glucose Negative Negative 11/24 [facility] mg/dL mg/dL /[address] [place] [address] URINE AND UA Bili Negative Negative 11/24 [address] [place] (11/24/14 2:06 AM) URINE AND UA Ketones Negative Negative 11/24 [facility] mg/dL mg/dL /2014 [facility] URINE AND UA Spec Grav 1.009 <=1.030 11/24 [facility] URINE AND UA Turbidity Clear Clear 11/24 [facility] (11/24/14 2:06 AM) [place] URINE AND UA Color Yellow Yellow 11/24 [facility] *NA* [place] (11/24/14 2:06 AM) CHEM PANEL A/G Ratio 1.2 0.7 - 1.6 11/24 [facility] CHEM PANEL Globulin 3.2 g/dL 2.0 - 4.0 11/24 [facility] CHEM PANEL B/C Ratio 22 6 - 25 11/24 [facility]2014 [facility] CHEM PANEL AGAP 9.8 meq/L 10.0 - 11/24 [facility] 20.0 [facility] CHEM PANEL eGFR 29 11/24 3Result Comment: The eGFR is calculated using the CKD-EPI formula. In most young, healthy individuals the eGFR will be >90 mL/ min/1.73m2. The eGFR declines with age. An eGFR of 60-89 may be normal in [facility] mL/min/1.7 some populations, particularly the elderly, for whom the CKD-EPI formula has not been extensively validated. Use of the eGFR is not recommended in the following populations: [address] Individuals with unstable creatinine concentrations, including [...] values reflect the clinical guidelines of the [place] [employer]. [facility] CHEM PANEL Calcium Lvl 8.7 mg/dL 8.5 - 10.5 11/24 [facility] CHEM PANEL ALT 29 unit/L 0 - 65 11/24 [facility] CHEM PANEL AST 17 unit/L 0 - 37 11/[address] CHEM PANEL Albumin Lvl 3.7 g/dL 3.5 - 5.0 11/[address] CHEM PANEL Total Protein 6.9 g/dL 6.4 - 8.4 11/[address] CHEM PANEL CO2 28 meq/L 24 - 32 11/[address] CHEM PANEL Chloride Lvl 103 meq/L 95 - 109 11/[address] CHEM PANEL Potassium Lvl 3.8 meq/L 3.5 - 5.1 11/[address] CHEM PANEL Sodium Lvl 137 meq/L 135 - 145 11/[address] CHEM PANEL Creatinine 1.7 mg/dL 0.5 - 1.4 11/[address] CHEM PANEL BUN 37 mg/dL 7 - 22 11/[address] CHEM PANEL Alk Phos 37 unit/L 39 - 136 11/[address] CHEM PANEL Bili Total 0.4 mg/dL 0.2 - 1.3 11/[address] HEMATOLOGY Monocytes # 0.4 K/CMM 0.0 - 0.8 11/[address] HEMATOLOGY Lymphocytes # 1.1 K/CMM 1.0 - 5.5 11/[address] HEMATOLOGY Eosinophils # 0.1 K/CMM 0.0 - 0.5 11/[address] HEMATOLOGY Segs 70.9 % 45.0 - 02 [facility] 75.0 /2014 [facility] HEMATOLOGY Monocytes 6.7 % 2.0 - 12.0 11/[address] HEMATOLOGY Lymphocytes 19.7 % 20.0 - 02/ [facility] 40.0 /2014 [facility] HEMATOLOGY Eosinophils 2.3 % 0.0 - 4.[address] HEMATOLOGY Segs-Bands # 4.0 K/CMM 1.5 - 8.1 11/[address] HEMATOLOGY Basophils 0.4 % 0.0 - 1.0 11/[address] HEMATOLOGY PTT 28.2 s 22.9 - 02/ 10Interpretiv [facility] 35.8 /2015 e Data: [facility] Therapeutic Range: 57 - 92 Seconds HEMATOLOGY PT 13.9 s 12.0 - 11/24 [facility] 14.7 /2014 [facility] HEMATOLOGY INR 1.07 0.85 - 11/24 8Interpretive Data: RECOMMENDED RANGES FOR PROTIME INR: [facility] 1.17 2.0-3.0 for most medical and surgical thromboembolic states. Medical 2.5-3.5 for artificial heart valves and recurrent embolism. Center INR SHOULD BE USED ONLY FOR PATIENTS ON STABLE ANTICOAGULANT THERAPY. HEMATOLOGY MPV 8.8 fL 7.4 - 10.4 11/24 [facility] HEMATOLOGY WBC 5.7 K/CMM 3.7 - 10.4 11/24 [facility] HEMATOLOGY MCV 94.9 fL 80.0 - 11/24 [facility] 98.0 [facility] HEMATOLOGY RBC 3.73 M/CMM 4.20 - 11/24 [facility] 5.40 [facility] HEMATOLOGY RDW 13.3 % 11.5 - 11/24 [facility] 14.5 /2014 [facility] HEMATOLOGY Hgb 12.1 g/dL 12.0 - 11/24 [facility] 16.0 [facility] HEMATOLOGY Hct 35.3 % 36.0 - 11/24 [facility] 48.0 [facility] HEMATOLOGY Platelet 158 K/CMM 133 - 450 11/24 [facility] HEMATOLOGY MCHC 34.2 g/dL 32.0 - 11/24 [facility] 36.0 [facility] HEMATOLOGY MCH 32.5 pg 27.0 - 11/24 [facility] 31.0 [facility] LIPIDS CHD Risk 2.81 3.90 - 11/24 [facility] 5.80 [facility] LIPIDS VLDL 26 11/24 [facility] LIPIDS LDL 59 mg/dL <=99 mg/dL 11/24 [facility] (Calculated) [facility] LIPIDS Trig 128 mg/dL <=149 11/24 [facility] mg/dL [facility] LIPIDS HDL 47 mg/dL >=61 mg/dL 11/24 [facility] LIPIDS Chol 132 mg/dL <=199 11/24 [facility] mg/dL [facility] SPECIAL Hgb A1C 5.6 % <=5.6 % 11/24 [facility] CHEMISTRY [facility] Vital Signs Vital Sign Value Date Comments Source Respitory Rate 16 11/26/2014 [facility] Systolic (mm Hg) 172 11/26/2014 [facility] Diastolic (mm Hg) 79 11/26/2014 [facility] Heart Rate 57 11/26/2014 [facility] Temperature Oral (F) 97.5 F 11/26/2014 [facility] Temperature Oral (F) 97.5 F 11/26/2014 [facility] Heart Rate 69 11/26/2014 [facility] Diastolic (mm Hg) 79 11/26/2014 [facility] Respitory Rate 18 11/26/2014 [facility] Systolic (mm Hg) 166 11/26/2014 [facility] Respitory Rate 16 11/26/2014 [facility] Systolic (mm Hg) 157 11/26/2014 [facility] Diastolic (mm Hg) 66 11/26/2014 [facility] Heart Rate 65 11/24/2014 [facility] Weight 114.318 11/24/2014 [facility] BMI Calculated 43.26 11/24/2014 [facility] Height 162.56 cm 11/24/2014 [facility] Encounters Location Location Encounter Encounter Reason Attending ADM DC Status Source Details Type Number For Provider Date Date Visit [facility] [id number] Ar[facility]ooper Viky 11/24 11/26 [facility] /2014 [facility] PT/INR 3.0 [id number] 12/19 12/19 [facility] [id number]- /2014 [facility] [id number] [facility] [place] PT/INR 3.0 [id number] 12/19 12/19 [facility] [id number]- /2014 [facility] [id number] [facility] [place] PT/INR 3.0 [id number] 12/19 12/19 [facility] [id number]- /2014 [facility] [id number] [facility] [place] PT/INR 3.0 [id number] 12/19 12/19 [facility] [id number]- /2014 [facility] [id number] [facility] [place] Unknown [id number] 12/19 12/19 [facility] [id number]- /2014 [facility] [id number] [facility] [place] Unknown [id number] 12/19 12/19 [facility] [id number]- /2014 [facility] [id number] [facility] [place] Unknown [id number] 12/19 12/19 [facility] [id number]- /2014 [facility] [id number] [facility] [place] Unknown [id number] 12/19 12/19 [facility] [id number]- /2014 [facility] [id number] [facility] [place] PT/INR 3.0 [id number] 12/19 12/19 [facility] [id number]- /2014 [facility] [id number] [facility] [place] PT/INR 3.0 [id number] 12/19 12/19 [facility] [id number]- /2014 [facility] [id number] [facility] [place] Unknown [id number] 12/19 12/19 [facility] [id number]- /2014 [facility] [id number] y [facility] [place] Unknown [id number] 12/19 12/19 [facility] [id number]- /2014 [facility] [id number] [facility] [place] Unknown [id number] 03/23 03/23 [facility] [id number]- /2014 [facility] [id number] [facility] [place] Unknown [id number] 03/23 03/23 [facility] [id number]- /2014 [facility] [id number] [facility] [place] Unknown [id number] 03/23 03/23 [facility] [id number]- /2014 [facility] [id number] [facility] [place] Unknown [id number] 03/23 03/23 [facility] [id number]- /2014 [facility] [id number] [facility] [place] Unknown [id number] 03/23 03/23 [facility] [id number]- /2014 [facility] [id number] [facility] [place] Unknown [id number] 03/23 03/23 [facility] [id number]- /2014 [facility] [id number] [facility] [place] Unknown [id number] 08/12 08/12 [facility] [id number]- /2014 [facility] [id number] [facility] [place] Unknown [id number] 08/12 08/12 [facility] [id number]- /2014 [facility] [id number] [facility] [place] Unknown [id number] 08/12 08/12 [facility] [id number]- /2014 [facility] [id number] [facility] [place] Unknown [id number] 08/12 08/12 [facility] [id number]- /2014 [facility] [id number] y [facility] [place] Unknown [id number] 08/12 08/12 [facility] [id number]- /2014 [facility] [id number] [facility] [place] Unknown [id number] 08/12 08/12 [facility] [id number]- /2014 [facility] [id number] [facility] [place] Unknown [id number] 01/28 01/28 [facility] [id number]- /2015 [facility] [id number] [facility] [place] Unknown [id number] 01/28 01/28 [facility] [id number]- /2015 [facility] [id number] [facility] [place] Unknown [id number] 01/28 01/28 [facility] [id number]- /2015 [facility] [id number] [facility] [place] Unknown [id number] 01/28 01/28 [facility] [id number]- /2015 [facility] [id number] [facility] [place] Unknown [id number] 01/28 01/28 [facility] [id number]- /2015 [facility] [id number] [facility] [place] Unknown [id number] 01/28 01/28 [facility] [id number]- /2015 [facility] [id number] [facility] [place] Unknown [id number] 03/11 03/11 [facility] [id number]- /2015 [facility] [id number] [facility] [place] Unknown [id number] 03/11 03/11 [facility] [id number]- /2015 [facility] [id number] [facility] [place] Unknown [id number] 03/11 03/11 [facility] [id number]- /2015 [facility] [id number] [facility] [place] Unknown [id number] 03/11 03/11 [facility] [id number]- /2015 [facility] [id number] [facility] [place] Unknown [id number] 03/11 03/11 [facility] [id number]- /2015 [facility] [id number] [facility] [place] Unknown [id number] 04/15 04/15 [facility] [id number]- /2015 [facility] [id number] y [facility] [place] Unknown [id number] 04/15 04/15 [facility] [id number]- /2015 [facility] [id number] y [facility] [place] Unknown [id number] 04/15 04/15 [facility] [id number]- /2015 [facility] [id number] [facility] [place] Unknown [id number] 04/15 04/15 [facility] [id number]- /2015 [facility] [id number] y Consult [place] Unknown [id number] 04/15 04/15 [facility] [id number]- /2015 [facility] [id number] [facility] [place] Unknown [id number] 04/15 04/15 [facility] [id number]- /2015 [facility] [id number] y [facility] [place] Unknown [id number] 04/15 04/15 [facility] [id number]- /2015 [facility] [id number] y Consult [place] Unknown [id number] 04/15 04/15 [facility] [id number]- /2015 [facility] [id number] [facility] [place] Other [id number] 09/09 09/09 [facility] [id number]- /2015 [facility] [id number] [facility] [place] Other [id number] 09/09 09/09 [facility] [id number]- /2015 [facility] [id number] y Consult [place] Unknown [id number] 12/20 12/20 [facility] [id number]- /2016 [facility] [id number] y Consult Procedures Procedure Code Date Perfomer Comments Source Knee replacement [id number] [facility]
--- OUTSIDE RECORDS SUMMARY | 2018-08-22 06:08 | XMS REPORT ---
:1940 Author Organization [employer] Care Team Providers Name Role Phone Melissa Salmon Provider Role Unavailable Encounters Encounter Location Date Unknown [place] [employer] Aug 12, 2015 Unknown [place] [employer] January 29, 2016 Unknown [place] [employer] March 11, 2016 Unknown [place] [employer] Dec 19, 2014 PT/INR 3.0 [place] [employer] Dec 19, 2014 Unknown [place] [employer] March 23, 2015 Problems Problem Type Condition [...]
--- OUTSIDE RECORDS SUMMARY | 2018-08-22 06:08 | XMS REPORT ---
:1940 [facility] Team Providers Name Role Phone [...]
--- OUTSIDE RECORDS SUMMARY | 2018-08-22 06:08 | XMS REPORT ---
:1940 [facility] Providers Name Role [...] Start Date End Date Status Dosage Edarbyclor [facility] [address] 40-25 MG Orally January 02, Active 1 tablet -30 Once a day 2016 Results No Known Results Summary Purpose [employer] Submission
--- OUTSIDE RECORDS SUMMARY | 2018-08-22 06:08 | XMS REPORT ---
:1939 [facility] Providers Name Role [...] Start Date End Date Status Dosage Edarbyclor [facility] [address] 40-25 MG Orally January 17, Active 1 tablet -30 Once a day 2016 Results No Known Results Summary Purpose [employer] Submission
--- OUTSIDE RECORDS SUMMARY | 2018-08-22 06:08 | XMS REPORT ---
:[address] [facility] Team Providers Name Role [...] Start Date End Date Status Dosage Denae [facility] [address] 5 MG Orally twice Jun 08, Active 1 tablet -21 a day 2016 Results No Known Results Summary Purpose [employer]Works Submission
--- OUTSIDE RECORDS SUMMARY | 2018-08-22 06:08 | XMS REPORT ---
:1940 Author Organization [employer] Care Team Providers Name Role Phone Melissa Salmon Provider Role Unavailable Encounters Encounter Location Date Unknown [employer] Aug 12, 2015 Unknown [employer] January 29, 2016 Unknown [employer] Dec 19, 2014 PT/INR 3.0 [employer] Dec 19, 2014 Unknown [employer] March 23, 2015 Problems Problem Type Condition [...]
--- OUTSIDE RECORDS SUMMARY | 2018-08-22 06:09 | XMS REPORT ---
:1939 [facility] Team Providers Name Role Phone Melissa Salmon Provider Role Unavailable Encounters Encounter Location Date Unknown [place] [employer] Aug 12, 2015 Unknown [place] [employer] January 29, 2016 Unknown [place] [employer] March 11, 2016 Unknown [place] [employer] April 15, 2016 Unknown [place] [employer] Dec 19, 2014 PT/INR 3.0 [place] [employer] Dec 19, 2014 Unknown [place] [employer] March 23, 2015 Unknown [place] [employer] Dec 20, 2016 Unknown [place] [employer] April 15, 2016 Other [place] [employer] Sep 09, 2016 Problems Problem Type Condition [...] End Status Dosage Date Date Tikosyn MEDISPAN [id number] 500 Inactive TAKE ONE CAPSULE BY MOUTH TWICE A DAY Dofetilide MEDISPAN [address]-30 500 MCG Orally Dec 20, Active 1 [...]
--- OUTSIDE RECORDS SUMMARY | 2018-08-22 06:09 | XMS REPORT ---
:1939 [facility] Team Providers Name Role Phone Bennett Salmon Provider Role Unavailable Encounters Encounter Location Date Unknown [place] [employer] Aug 12, 2015 Unknown [place] [employer] January 29, 2016 Unknown [place] [employer] March 11, 2016 Unknown [place] [employer] April 15, 2016 Unknown [place] [employer] Dec 19, 2014 PT/INR 3.0 [place] [employer] Dec 19, 2014 Unknown [place] [employer] March 23, 2015 Unknown [place] [employer] April 15, 2016 Problems Problem Type Condition [...] Date End Date Status Dosage Cipro MEDISPAN [address] 500 MG Orally April 15 1 tablet [...]
--- OUTSIDE RECORDS SUMMARY | 2018-08-22 06:09 | XMS REPORT ---
:1939 [facility] Team Providers Name Role Phone Melissa Salmon Provider Role Unavailable Encounters Encounter Location Date Unknown [place] [employer] Aug 12, 2015 Unknown [place] [employer] January 29, 2016 Unknown [place] [employer] March 11, 2016 Unknown [place] [employer] April 15, 2016 Unknown [place] [employer] Dec 19, 2014 PT/INR 3.0 [place] [employer] Dec 19, 2014 Unknown [place] [employer] March 23, 2015 Unknown [place] [employer] April 15, 2016 Other [place] [employer] Sep 09, 2016 Problems Problem Type Condition [...] End Status Dosage Date Date Doxazosin MEDISPAN [id number] 4 Inactive TAKE ONE Mesylate TABLET BY [...]
--- OUTSIDE RECORDS SUMMARY | 2018-08-22 06:09 | XMS REPORT ---
:1940 [facility] Providers Name Role Phone Bennett Salmon Provider Role Unavailable Encounters Encounter Location Date Unknown [place] [facility] [employer] Aug 12, 2015 Unknown [place] [facility] January 29, 2016 Unknown [place] [facility] March 11, 2016 Unknown [place] [facility] April 15, 2016 Unknown [place] [facility] Dec 19, 2014 PT/INR 3.0 [place] [facility] Dec 19, 2014 Unknown [place] [facility] March 23, 2015 Unknown [place] [facility] April 15, 2016 Problems Problem Type Condition [...] Date End Date Status Dosage Cipro MEDISPAN [address] 500 MG Orally April 15 1 tablet [...]
[2018-08-22] MEDS ORDERED: NA CHLORIDE 0.9% 500 ML ONE (06:27)
[2018-08-22] MEDS ORDERED: TRIAMCINOLONE ACETON 40 MG/ML VIAL ONE (06:54)
[2018-08-22] MEDS ORDERED: BUPIVACAINE 0.25% PF 10 ML VIAL ONE (06:55)
[2018-08-22] MEDS ORDERED: LIDOCAINE 1% MPF 30 ML VIAL ONE (06:55)
[2018-08-22] MEDS ORDERED: PROPOFOL 200 MG/20 ML VIAL IV ONE (07:00)
[2018-08-22] MEDS ORDERED: LIDOCAINE 1% MPF 2 ML AMPULE ONE (07:01)
[2018-08-22] MEDS ORDERED: MIDAZOLAM HCL 2 MG/2 ML INJ ONE (07:02)
--- NOTE | 2018-08-22 09:03 | RAD REPORT ---
EXAM DESCRIPTION: RAD - Fluoro Guide Spinal Inj - 08/22/2018 7:49 am FINDINGS: Five portable C-arm views were obtained during fluoroscopic assisted lumbar spine steroid injection. Fluoro time was 0.1 minutes. No suspicious or unexpected finding.
--- NOTE | 2018-08-22 19:28 | OP ---
Date of Procedure: 08/22/2018 Surgeon: Thiago Beltran DO Preoperative Diagnoses: Low back pain, lumbar facet arthropathy, lumbar spondylosis, lumbar degenera tive disc disease. Postoperative Diagnoses: Low back pain, lumbar facet arthropathy, lumbar spondylosis, lumbar degener ative disc disease. Procedures Performed: 1.Fluoroscopy with evaluation of lumbar spine. 2.Lumbar epidural steroid injection. Anesthesia: MAC with IV sedation. Estimated Blood Loss: Minimal. Complication: None. Procedure In Detail: Ms. You is a 78-year-old female with a significant history of chronic low b ack pain. She was taken to the OR room #3, placed in a prone position. Back was prepped and draped in a sterile fashion. Sacral hiatus was identified. A 1% lidocaine was used for local anesthesia. A 16-gauge RK needle was used until passing into the sacral hiatus. Needle tip position was confirme d in the AP and lateral fluoroscopic views. Next, was placed between the L5-S1 region. C atheter was confirmed on AP lateral fluoroscopy views. Next, 10 cc of Omnipaque contrast was used to perform diagnostic lumbar epidurogram. Good spread of the dye to the L4-5 level. Next, 3 cc of 0.2 5% Marcaine was given as a test dose after few minutes. There was no evidence of intrathecal, intrav ascular or subdural spread of the local anesthetic. Next, 7 cc of 0.25% Marcaine was mixed with 40 m g of Kenalog. This was injected slowly with frequent negative aspirations. After the procedure was completed, the patient then was taken to the recovery room in stable condition. Admission Diagnosis: Low back pain. Discharge Diagnosis: Low back pain. Procedure: Lumbar epidural steroid injection. Hospital Course: Uneventful. Condition On Discharge: Good. Activity: As tolerated. She is to follow up with us in our office in 1-2 weeks. /JAMIL Voice ID: [id number] Report ID: [id number]
== END 2018-08-22 08:25 | disposition home or self-care (01) ==
LOC: OR 06:00
PROVIDERS: ATTEND Anesthesiology
PROC: 3E0R33Z Introduction of Anti-inflammatory into Spinal Canal, Percutaneous Approach (ICD-10-PCS; 2018-08-22)
PROC: B01BZZZ Fluoroscopy of Spinal Cord (ICD-10-PCS; 2018-08-22)
PROC: 3E0R3BZ Introduction of Anesthetic Agent into Spinal Canal, Percutaneous Approach (ICD-10-PCS; principal; 2018-08-22 07:00)
DX: M54.5 Low back pain (principal); M54.16 Radiculopathy, lumbar region; M46.96 Unspecified inflammatory spondylopathy, lumbar region; M51.36 Other intervertebral disc degeneration, lumbar region; I10 Essential (primary) hypertension; G47.33 Obstructive sleep apnea (adult) (pediatric); J45.909 Unspecified asthma, uncomplicated; E07.9 Disorder of thyroid, unspecified; Z88.8 Allergy status to other drugs, medicaments and biological substances
CPT/HCPCS: 62323; 77003; C1751; J2001; J2250; J3301; Q9967; J2704

== ENCOUNTER 2018-09-05 06:13 | Day surgery (SDC) | payer OTHER, MEDICARE ==
--- OUTSIDE RECORDS SUMMARY | 2018-09-05 06:19 | XMS REPORT | Continuity of Care Document ---
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 Cardiology disease, benign, Consult with heart failure and with chronic kidney disease stage I through stage IV, or unspecified Upper respiratory Active Problem 06/17/2017 [place] tract Cardiology hypersensitivity Consult reaction, site unspecified Acute upper Active Problem 06/17/2017 [place] respiratory Cardiology infections of Consult unspecified site Unspecified Active Problem 06/17/2017 [place] transient cerebral Cardiology ischemia Consult Palpitations Active Problem 06/17/2017 [place] Cardiology Consult Other specified Active Problem 06/17/2017 [place] cardiac dysrhythmias Cardiology Consult Personal history of Active Problem 06/17/2017 [place] transient ischemic Cardiology attack [TIA], and Consult cerebral infarction without residual deficits Atrial fibrillation Active Problem 06/17/2017 [place] Cardiology Consult Transient cerebral Active Problem 06/17/2017 [place] ischemic attack, Cardiology unspecified Consult Palpitations Active Problem 06/17/2017 [place] Cardiology Consult History of falling Active Problem 06/17/2017 [place] Cardiology Consult Personal history of Active Problem 06/17/2017 [place] transient ischemic Cardiology attack , and Consult cerebral infarction without residual deficits Bradycardia, Active Problem 06/17/2017 [place] unspecified Cardiology Consult Arthropathy, Active Problem 06/17/2017 [place] unspecified Cardiology Consult Major depressive Active Problem 06/17/2017 [place] disorder, single Cardiology episode, unspecified Consult Abnormal Active Problem 06/17/2017 [place] electrocardiogram Cardiology [ECG] [EKG] Consult Morbid obesity due Active Problem 06/17/2017 [place] to excess calories Cardiology Consult Chest pain, Active Problem 06/17/2017 [place] unspecified Cardiology Consult Chronic kidney Active Problem 06/17/2017 [place] disease, unspecified Cardiology Consult Constipation, Active Problem 06/17/2017 [place] unspecified Cardiology Consult Shortness of breath Active Problem 06/17/2017 [place] Cardiology Consult Congestive 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 [place] failure, unspecified Cardiology Consult Mitral valve Active Problem 06/17/2017 [place] disorders Cardiology Consult Insomnia, Active Problem 06/17/2017 [place] unspecified Cardiology Consult Unspecified Active Problem 06/17/2017 [place] hypothyroidism Cardiology Consult Other and Active Problem 06/17/2017 [place] unspecified Cardiology hyperlipidemia Consult Insomnia, Active Problem 06/17/2017 [place] unspecified Cardiology Consult Chronic kidney Active Problem 06/17/2017 [place] disease, Stage III Cardiology Consult Hypothyroidism, Active Problem 06/17/2017 [place] unspecified Cardiology Consult Hyperlipidemia, Active Problem 06/17/2017 [place] unspecified Cardiology Consult Essential Active Problem 06/17/2017 [place] hypertension Cardiology Consult 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 [place]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 Consult arteries Anxiety disorder, Active Problem 06/17/2017 [place] unspecified Cardiology Consult Impaired fasting Active Problem 06/17/2017 [place] blood sugar Cardiology Consult Female genuine Active Problem 06/17/2017 [place] stress incontinence Cardiology Consult Other malaise and Active Problem 06/17/2017 [place] fatigue Cardiology Consult Paroxysmal atrial Active Problem 06/17/2017 [place] fibrillation Cardiology Consult Obesity, unspecified Active Problem 06/17/2017 [place] Cardiology Consult Nonrheumatic mitral Active Problem 06/17/2017 [place] insufficiency Cardiology Consult Unspecified Active Problem 06/17/2017 [place] constipation Cardiology Consult 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 [place] and chronic kidney Cardiology disease with heart Consult failure and stage 1 through stage 4 chronic kidney disease, or unspecified chronic kidney disease Hypertension Active Problem 06/17/2017 [place] essential benign Cardiology Consult Chronic diastolic Active Problem 06/17/2017 [place] heart failure Cardiology Consult 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 [place] stenosis of carotid Cardiology artery without Consult mention of cerebral infarction Unspecified Active Problem 06/17/2017 [place] arthropathy, site Cardiology unspecified Consult Depressive disorder, Active Problem 06/17/2017 [place] not elsewhere Cardiology classified Consult Nonspecific abnormal Active Problem 06/17/2017 [place] electrocardiogram Cardiology (EKG) Consult Morbid obesity Active Problem 06/17/2017 [place] Cardiology Consult Shortness of breath Active Problem 06/17/2017 [place] Cardiology Consult Chest pain, Active Problem 06/17/2017 [place] unspecified Cardiology Consult Overactive bladder Active Problem 06/17/2017 [place] Cardiology Consult Incontinence without Active Problem 06/17/2017 [place] sensory awareness Cardiology Consult Encounter for Active Problem 06/17/2017 [place] screening for Cardiology diabetes mellitus Consult Retention of urine, Active Problem 06/17/2017 [place] unspecified Cardiology Consult Urinary tract Active Problem 06/17/2017 [place] infection, site not Cardiology specified Consult Frequency of Active Problem 06/17/2017 [place] micturition Cardiology Consult Acid reflux disease Resolved Problem 11/28/2014 [facility] High cholesterol Resolved Problem 11/28/2014 [facility] Hyperlipidemia Resolved Problem 11/28/2014 [facility] Hypertension Resolved Problem 11/28/2014 [facility] Hypothyroidism Resolved Problem 11/28/2014 [facility] CVA Active [facility] Medications Medication Details Route Status Patient Ordering Order Source Instructions Provider Date Eliquis 1 tablet Orally Active 5 MG Orally [facility] [place] twice a day 2016 Cardiology Consult Edarbyclor 1 tablet Orally Active 40-25 MG [facility] [place] Orally Once a 2017 Cardiology day Consult Edarbyclor 1 tablet Orally Active 40-25 MG [facility] [place] Orally Once a 2016 Cardiology day Consult Dofetilide 1 capsule Orally Active 500 MCG [facility] [place] Orally Twice 2017 Cardiology a day Consult Cipro 1 tablet Orally Active 500 MG Orally [facility] [place] Twice a day 2015 Cardiology Consult Warfarin 5 mg, 1 tab, Inactive [facility] Route: PO, 2014 Medical Drug form: Center TAB, Daily, Dosing Weight 114.318, kg, Start date: 11/26/14 12:03:00, Duration: 1 doses or times, Stop date: 11/26/14 12:03:00Notes : Nurse to ensure documentation of patient education per anticoagulati on policy. Avoid large intake of vitamin-K containing foods diet. (Same As: Coumadin) valsartan 40 mg 40 mg=1 tab, Active 11/26[facility] oral tablet PO, Q12H, # 2015 Medical 60 tab, 3 Center Refill(s) atorvastatin 40 40 mg=1 tab, Active 11/26[facility] mg oral tablet PO, Bedtime, 2015 Medical # 30 tab, 3 Center Refill(s) clopidogrel 75 mg 75 mg=1 tab, Active 11/26[facility] oral tablet PO, Daily, # 2015 Medical 30 tab, 0 Center Refill(s) warfarin 5 mg 5 mg, PO, Active 11/26[facility] oral tablet Daily, # 2 2015 Medical tab, 0 Center Refill(s) Atenolol 25 MG 12.5 mg=0.5 Active 11/26[facility] Oral Tablet tab, PO, 2015 Medical Daily, 0 Center Refill(s) valsartan 40 mg, 1 tab, Inactive [place] Route: PO, 2014 Medical Drug form: [place] TAB, Q12H, Dosing Weight 114.318, kg, Start date: 11/26/14 9:00:00, Duration: 30 day, Stop date: 12/25/14 21:00:00Notes : Same as [place] Protonix 40 mg, 1 tab, No Longer [place] Route: PO, Active 2014 Medical Drug form: Green ECTAB, Before Dinner, Start date: 11/25/14 16:30:00, Duration: 30 day, Stop date: 12/24/14 16:30:00Notes : Tablet should not be chewed or crushed. (Same as: Protonix) Atenolol 12.5 mg, 0.5 No Longer [place] tab, Route: Active 2014 Medical PO, Drug Center form: TAB, Daily, Dosing Weight 114.318, kg, Start date: 11/25/14 9:00:00, Duration: 30 day, Stop date: 12/24/14 9:00:00Notes: (Same As:Tenormin) valsartan 320 mg, No Longer [facility] Route: PO, Active 2014 Medical Drug form: Green TAB, Daily, Dosing Weight 114.318, kg, Start date: 11/25/14 9:00:00, Duration: 30 day, Stop date: 12/24/14 9:00:00 Thyroxine 100 No Longer [facility] microgram, 1 Active 2014 Medical tab, Route: Green PO, Drug form: TAB, Q630AM, Dosing Weight 114.318, kg, Start date: 11/25/14 6:30:00, Duration: 30 day, Stop date: 12/24/14 6:30:00Notes: Take 1 hour before or 2 hours after meal; Enteral feeds may interefere with the absorption of this medication. (Same as:Levothroid , Synthroid) heparin, porcine 7,500 unit, No Longer [place] 1.5 mL, Active 2014 Medical Route: SUB-Q, [place] Drug form: INJ, Q8H, Dosing Weight 114.318, kg, Start date: 11/24/14 22:00:00, Duration: 30 day, Stop date: 12/24/14 16:00:00Notes : porcine heparin Plavix 75 mg, 1 tab, No Longer [facility] Route: PO, Active 2014 Medical Drug form: Center TAB, Daily, Dosing Weight 114.318, kg, Start date: 11/24/14 22:00:00, Duration: 30 day, Stop date: 12/24/14 9:00:00Notes: (Same As: Plavix) Tylenol 650 mg, 2 No Longer [facility] tab, Route: Active 2014 Medical PO, Drug Center form: TAB, Q6H, Dosing Weight 114.318, kg, PRN Pain, Start date: 11/24/14 21:16:00, Duration: 30 day, Stop date: 12/24/14 21:15:00Notes : Do not exceed 4 gm/day. (Same as: Tylenol) atorvastatin 40 mg, 1 tab, No Longer [facility] Route: PO, Active 2014 Medical Drug form: Center TAB, Bedtime, kg, Start date: 11/24/14 21:00:00, Duration: 30 day, Stop date: 12/23/14 21:00:00Notes : (Same as: Lipitor) Bupropion 150 mg, 1 No Longer [facility] tab, Route: Active 2014 Medical PO, Drug Center form: ERTAB, BID, Dosing Weight 114.318, kg, Start date: 11/24/14 17:00:00, Duration: 30 day, Stop date: 12/24/14 9:00:00Notes: (Do not crush) (Same As: Wellbutrin SR) valsartan 40 mg, Route: Inactive [facility] PO, BID, 2014 Medical Dosing Weight Center 114.318, kg, Start date: 11/24/14 17:00:00, Duration: 30 day, Stop date: 12/24/14 9:00:00 Triiodothyronine 10 microgram, No Longer [facility] 2 tab, Route: Active 2014 Medical PO, Drug Center form: TAB, QAM, Dosing Weight 114.318, kg, Priority: NOW, Start date: 11/24/14 15:35:00, Duration: 30 day, Stop date: 12/24/14 9:00:00Notes: (Same as: Cytomel) Atenolol 100 MG 50 mg=0.5 No Longer [facility] Oral Tablet tab, PO, BID, Active 2015 Medical # 30 tab, 0 Center Refill(s) pravastatin 40 mg 40 mg=1 tab, No Longer [facility] oral tablet PO, Bedtime, Active 2015 Medical # 30 tab, 0 Center Refill(s) Furosemide 40 MG 40 mg=1 tab, No Longer [place] Oral Tablet PO, Daily, # Active 2015 Medical [Lasix] 30 tab, 0 Center Refill(s) spironolactone 25 25 mg=1 tab, No Longer [facility] mg oral tablet PO, Daily, # Active 2014 Medical 60 tab, 0 Center Refill(s) Potassium 20 mEq=1 tab, No Longer [place] Chloride 20 MEQ PO, Daily, 0 Active 2015 Medical Extended Release Refill(s) Center Tablet omeprazole 40 mg 40 mg=1 cap, Active [place] oral delayed PO, Daily, # 2015 Medical release capsule 30 cap, 0 Center Refill(s) Metolazone 5 MG 5 mg=1 tab, No Longer [facility] Oral Tablet PO, Daily, # Active 2015 Medical 30 tab, 0 Center Refill(s) liothyronine 5 10 Active [facility] mcg oral tablet microgram=2 2014 Medical tab, PO, QAM, Center # 30 tab, 0 Refill(s) Fenofibrate 160 160 mg=1 tab, No Longer [facility] MG Oral Tablet PO, Daily, # Active 2015 Medical 30 tab, 0 Center Refill(s) Zolpidem tartrate 10 mg=1 tab, Active [place] 10 MG Oral Tablet PO, Bedtime, 2015 Medical [Ambien] for sleep, 0 Center Refill(s) buPROPion 150 150 mg=1 tab, Active [facility] mg/24 hours oral PO, BID, # 30 2015 Medical extended release tab, 0 Center tablet Refill(s) Albuterol 0.09 2 puff, No Longer [facility] MG/ACTUAT Metered INHALATION, Active 2015 Medical Dose Inhaler Q6H, as Center [Ventolin] needed for wheezing, # 17 gm, 0 Refill(s) levothyroxine 100 100 Active [place] mcg (0.1 mg) oral microgram=1 2014 Medical tablet tab, PO, QA, Center # 30 tab, 0 Refill(s) doxazosin 4 mg 4 mg=1 tab, Active [facility] oral tablet PO, Daily, # 2015 Medical 30 tab, 0 Center Refill(s) valsartan 320 mg 320 mg=1 tab, No Longer [facility] oral tablet PO, Daily, # Active 2014 Medical 30 tab, 0 Center Refill(s) Triiodothyronine 5 microgram, Inactive [facility] 1 tab, Route: 2014 Medical PO, Drug Center form: TAB, Daily, Dosing Weight 114.318, kg, Start date: 11/24/14 14:09:00, Duration: 30 day, Stop date: 12/24/14 9:00:00Notes: (Same as: Cytomel) Reglan 5 mg, 1 mL, Inactive [facility] Route: IV, 2014 Medical Drug form: Green INJ, ONCE, Dosing Weight 114.318, kg, Start date: 11/24/14 11:44:00, Stop date: 11/24/14 11:44:00Notes : (Same as: Reglan) Magnesium Sulfate 2 gm, 50 mL, Inactive [facility] Route: IVPB, 2014 Medical Drug form: Green INJ, ONCE, Dosing Weight 114.318, kg, Total dose=2 gm, Start date: 11/24/14 11:27:00, Duration: 1 doses or times, Stop date: 11/24/14 11:27:00 pneumococcal 0.5 ml, Inactive [facility] capsular Route: IM, 2014 Medical polysaccharide Drug Form: Green type 1 vaccine / INJ, Daily, pneumococcal Start date: capsular 11/24/14 polysaccharide 9:00:00, Stop type 10A vaccine date: / pneumococcal 11/24/14 capsular 23:59:00Notes polysaccharide : (Same as: type 11A vaccine Pneumovax 23) / pneumococcal Refrigerate capsular polysaccharide type 12F vaccine / pneumococcal capsular polysacchar Saline Flush 0.9% 10 ml, Route: No Longer [facility] IVP, Drug Active 2014 Medical Form: INJ, Center kg, Q12H, Start date: 11/24/14 9:00:00, Duration: 30 day, Stop date: 12/23/14 21:00:00Notes : (Same as: BD Posiflush) Versed 0.5 mg, 0.5 Inactive [facility] mL, Route: 2014 Medical IVP, Drug Center form: INJ, ONCE, Dosing Weight 114.318, kg, Start date: 11/24/14 8:31:00, Stop date: 11/24/14 8:31:00Notes: (Same as: Versed) Pravastatin 40 mg=1 tab, Inactive [facility] Sodium 40 MG Oral PO, Bedtime, 2014 Medical Tablet # 30 tab, 0 Center [Pravachol] Refill(s) aspirin 0 Refill(s) Inactive [facility] 2014 Medical Center Fenofibrate 160 160 mg=1 tab, Inactive [facility] MG Oral Tablet PO, Daily, # 2015 Medical 30 tab, 0 Center Refill(s) Atenolol 0 Refill(s) Inactive [facility] 2014 [facility] valsartan 320 mg 320 mg=1 tab, Inactive [facility] oral tablet PO, Daily, # 2015 Medical 30 tab, 0 Center Refill(s) Potassium 0 Refill(s) Inactive [facility] Chloride 20 MEQ 2014 Medical Extended Release Center Tablet Metolazone 5 MG 5 mg=1 tab, Inactive [facility] Oral Tablet PO, Daily, # 2015 Medical 30 tab, 0 Center Refill(s) Furosemide 40 MG 40 mg=1 tab, Inactive [facility] Oral Tablet PO, Daily, # 2015 Medical [Lasix] 30 tab, 0 Center Refill(s) liothyronine 5 5 microgram=1 Inactive [facility] mcg oral tablet tab, PO, 2014 Medical Daily, # 30 Center tab, 0 Refill(s) Omeprazole 0 Refill(s) Inactive [facility] 2014 Medical Center spironolactone 25 0 Refill(s) Inactive [facility] mg oral tablet 2014 [facility] Center Zofran 4 mg, 2 mL, Inactive [facility] Route: IVP, 2014 Medical Drug form: Center INJ, ONCE, Dosing Weight 114.318, kg, Start date: 11/24/14 7:08:00, Stop date: 11/24/14 7:08:00Notes: (Same as: Zofran) Tylenol 650 mg, 2 Inactive [facility] tab, Route: 2015 Medical PO, Drug Center form: TAB, Q6H, kg, PRN Pain 1-3/Temp > 99.5 F, Start date: 11/24/14 0:48:00, Stop date: 12/24/14 0:47:00Notes: Do not exceed 4 gm/day. (Same as: Tylenol) Sodium Chloride 1,000 mL, No Longer [facility] 0.154 MEQ/ML Rate: 75 Active 2014 Medical Injectable ml/hr, Infuse Center Solution over: 13.3 hr, Route: IV, Total Volume: 1,000, Start date: 11/23/14 23:06:00, Duration: 30 day, Stop date: 12/23/14 23:05:00 Saline Flush 0.9% 10 ml, Route: No Longer [facility] IVP, Drug Active 2014 Medical Form: INJ, Center kg, PRN, PRN Line Flush, Start date: 11/23/14 22:58:00, Duration: 30 day, Stop date: 12/23/14 22:57:00Notes : (Same as: BD Posiflush) Acetaminophen 650 mg, 2 No Longer [facility] tab, Route: Active 2014 Medical PO, [...] Updated Comments Source pneumococcal 11/24/2014 [facility]-valent [facility] Medical Center Results Order Name Results Value Reference Date Interpretation Comments Source Range CHEM PANEL Magnesium Lvl 2.1 mg/dL 1.8 - 2.4 11/26 [facility] CHEM PANEL Phosphorus 2.8 mg/dL 2.5 - 4.5 11/26 2014 [facility] CHEM PANEL eGFR 40 11/26 1Result Comment: The eGFR is calculated using the CKD-EPI formula. In most young, healthy individuals the eGFR will be >90 mL/ min/1.73m2. The eGFR declines with age. An eGFR of 60-89 may be normal in [facility] mL/min/1.7 some populations, particularly the elderly, for whom the CKD-EPI formula has not been extensively validated. Use of the eGFR is not recommended in the following populations: [address] Individuals with unstable creatinine concentrations, including [...] values reflect the clinical guidelines of the [place] Diabetes Association. [facility] CHEM PANEL BUN 18 mg/dL 7 - 22 11/26 [facility] CHEM PANEL Creatinine 1.3 mg/dL 0.5 - 1.4 11/26 [facility] CHEM PANEL Sodium Lvl 136 meq/L 135 - 145 11/26 [facility] CHEM PANEL Chloride Lvl 102 meq/L 95 - 109 11/26 [facility] CHEM PANEL Potassium Lvl 3.5 meq/L 3.5 - 5.1 11/26 [facility] CHEM PANEL Calcium Lvl 9.0 mg/dL 8.5 - 10.5 11/26 [facility] CHEM PANEL CO2 25 meq/L 24 - 32 11/26 [facility] CHEM PANEL AGAP 12.5 meq/L 10.0 - 11/26 20.0 [facility] HEMATOLOGY RDW 13.1 % 11.5 - 11/26 14.5 /2014 [facility] HEMATOLOGY MCH 32.4 pg 27.0 - 02/ 31.0 /2014 [facility] HEMATOLOGY MCV 93.5 fL 80.0 - 02 98.0 /2014 [facility] HEMATOLOGY MCHC 34.6 g/dL 32.0 - 02/ 36.0 /2014 [facility] HEMATOLOGY Hct 33.6 % 36.0 - / 48.0 /2014 [facility] HEMATOLOGY Hgb 11.6 g/dL 12.0 - 02 16.0 /2014 [facility] HEMATOLOGY RBC 3.60 M/CMM 4.20 - 02 5.40 /2014 [facility] HEMATOLOGY WBC 4.6 K/CMM 3.7 - 10.4 11/26 [facility] HEMATOLOGY MPV 8.3 fL 7.4 - 10.4 11/[address] [place] [address] HEMATOLOGY Platelet 149 K/CMM 133 - [address] HEMATOLOGY Segs 62.3 % 45.0 - 02 [facility] 75.0 [facility] HEMATOLOGY Lymphocytes # 1.2 K/CMM 1.0 - 5.5 02 [facility] HEMATOLOGY Monocytes # 0.4 K/CMM 0.0 - 0.[address] [place] [address] HEMATOLOGY Eosinophils 3.0 % 0.0 - 4.0 02 [facility] HEMATOLOGY Lymphocytes 26.2 % 20.0 - 11/26 [facility] 40.0 [facility] HEMATOLOGY Segs-Bands # 2.9 K/CMM 1.5 - 8.1 11/[address] HEMATOLOGY Basophils 0.5 % 0.0 - 1.0 02/ [facility] HEMATOLOGY Monocytes 8.0 % 2.0 - 12.0 11/26 [facility] [address] [place] [address] HEMATOLOGY Eosinophils # 0.1 K/CMM 0.0 - 0.5 11/[address] CHEM PANEL Phosphorus 3.1 mg/dL 2.5 - 4.5 11/[address] CHEM PANEL eGFR 34 02 2Result Comment: The eGFR is calculated using the CKD-EPI formula. In most young, healthy individuals the eGFR will be >90 mL/ min/1.73m2. The eGFR declines with age. An eGFR of 60-89 may be normal in [facility] mL/min/1.7 /2014 some populations, particularly the elderly, for whom the CKD-EPI formula has not been extensively validated. Use of the eGFR is not recommended in the following populations: [address] Individuals with unstable creatinine concentrations, including [...] CO2 25 meq/L 24 - 32 11/25 [facility] CHEM PANEL AGAP 12.8 meq/L 10.0 - 11/25 20.0 [facility] CHEM PANEL Calcium Lvl 8.7 mg/dL 8.5 - 10.5 11/25 2014 [facility] CHEM PANEL Chloride Lvl 104 meq/L 95 - 109 11/25 2014 [facility] CHEM PANEL BUN 23 mg/dL 7 - 22 11/25 [facility] CHEM PANEL Sodium Lvl 138 meq/L 135 - 145 11/25 [facility] CHEM PANEL Glucose Lvl 82 mg/dL 70 - 99 11/25 5Interpretive Data: Adult reference range values reflect the clinical guidelines of the [place] Diabetes Association. [facility] CHEM PANEL Creatinine 1.5 mg/dL 0.5 - 1.4 11/25 [facility] CHEM PANEL Potassium Lvl 3.8 meq/L 3.5 - 5.1 11/25 [facility] CHEM PANEL Magnesium Lvl 2.7 mg/dL 1.8 - 2.4 11/25 [facility] HEMATOLOGY Segs 63.1 % 45.0 - 11/25 75.0 [facility] HEMATOLOGY Lymphocytes 27.1 % 20.0 - 02 40.0 [facility] HEMATOLOGY Monocytes 7.2 % 2.0 - 12.0 11/25 2014 [facility] HEMATOLOGY Eosinophils # 0.1 K/CMM 0.0 - 0.5 11/25 [facility] HEMATOLOGY Eosinophils 2.2 % 0.0 - 4.0 11/25 [facility] HEMATOLOGY Basophils 0.4 % 0.0 - 1.0 11/25 [facility] HEMATOLOGY Segs-Bands # 3.1 K/CMM 1.5 - 8.1 11/25 [facility] HEMATOLOGY Monocytes # 0.3 K/CMM 0.0 - 0.8 11/25 [facility] HEMATOLOGY Lymphocytes # 1.3 K/CMM 1.0 - 5.5 11/25 [facility] HEMATOLOGY MPV 8.5 fL 7.4 - 10.4 11/25 [facility] HEMATOLOGY MCH 31.6 pg 27.0 - 11/25 31.0 [facility] HEMATOLOGY MCV 93.4 fL 80.0 - 11/25 [facility] 98.0 /2014 [facility] HEMATOLOGY Hct 33.2 % 36.0 - 11/25 [facility] 48.0 /2014 [facility] HEMATOLOGY Platelet 151 K/CMM 133 - 450 11/25 [facility] HEMATOLOGY RDW 13.1 % 11.5 - 11/25 14.5 [facility] HEMATOLOGY MCHC 33.8 g/dL 32.0 - 11/25 36.0 /2014 [facility] HEMATOLOGY Hgb 11.2 g/dL 12.0 - 02 16.0 [facility] HEMATOLOGY RBC 3.56 M/CMM 4.20 - 11/25 5.40 /2014 [facility] HEMATOLOGY WBC 4.9 K/CMM 3.7 - 10.4 11/25 [facility] HEMATOLOGY INR 1.14 0.85 - 11/25 7Interpretive Data: RECOMMENDED RANGES FOR PROTIME INR: [facility] 1.17 2.0-3.0 for most medical and surgical thromboembolic states. Medical 2.5-3.5 for artificial heart valves and recurrent embolism. Center INR SHOULD BE USED ONLY FOR PATIENTS ON STABLE ANTICOAGULANT THERAPY. HEMATOLOGY PTT 28.5 s 22.9 - 02 9Interpretive [facility] 35.8 /2014 Data: Heparin [facility] Therapeutic Center Range: 57 - 92 Seconds HEMATOLOGY PT 14.7 s 12.0 - 02/03 [facility] 14.7 /2014 [facility] THYROID TSH 3.190 0.360 - 11/25 [facility] PANEL uIU/mL 3.740 /2014 Medical Center Neck wo Neck wo EXAM: MRI BRAIN 11/24 - [facility] contrast contrast MRA /2014 - Medical MRA EXAM: MRA BRAIN This report was dictated by a Cartographic Engineer/ Fellow. I have personally reviewed the images [...] caliber. No aneurysm is identified. Right type FORGING MACHINE HAND is present, a normal variant. There is [...] Brain wo EXAM: MRI BRAIN 11/24 - [facility] contrast contrast MRA /2014 - Medical MRA EXAM: MRA BRAIN This report was dictated by a Cartographic Engineer/ Fellow. I have personally reviewed the images [...] caliber. No aneurysm is identified. Right type FORGING MACHINE HAND is present, a normal variant. There is [...] Brain wo EXAM: MRI BRAIN 11/24 - [facility] contrast contrast MRI /2014 - Medical MRI EXAM: MRA BRAIN This report was dictated by a Cartographic Engineer/ Fellow. I have personally reviewed the images [...] caliber. No aneurysm is identified. Right type FORGING MACHINE HAND is present, a normal variant. There is [...] AND UA <=1.0 0.1 - 1.0 11/24 [facility] Urobilinogen mg/dL /[address] [place] [address] URINE AND UA Renal Epi 7 /LPF <=0 /LPF 11/[address] URINE AND UA Sq Epi Moderate Few /LPF 11/24 [facility] /LPF /[address] [place] [address] URINE AND UA WBC 2 /HPF 0 - 5 11/[address] URINE AND UA Nitrite Negative Negative 11/[address] (11/24/14 2:06 AM) [place] URINE AND UA Leuk Est Negative Negative 11/[address] (11/24/14 2:06 AM) [place] URINE AND UA Blood Negative Negative 11/[address] (11/24/14 2:06 AM) [place] URINE AND UA Protein Negative Negative 11/24 [facility] mg/dL mg/dL /2014 [facility] URINE AND UA pH 6.5 5.0 - 8.0 11/[address] URINE AND UA Glucose Negative Negative 11/24 [facility] mg/dL mg/dL /[address] [place] [address] URINE AND UA Bili Negative Negative 11/24 [address] [place] (11/24/14 2:06 AM) URINE AND UA Ketones Negative Negative 11/24 [facility] mg/dL mg/dL /2014 [facility] URINE AND UA Spec Grav 1.009 <=1.030 11/24 [facility] URINE AND UA Turbidity Clear Clear 11/24 [facility] (11/24/14 2:06 AM) [place] URINE AND UA Color Yellow Yellow 11/24 [facility] *NA* [place] (11/24/14 2:06 AM) CHEM PANEL A/G Ratio 1.2 0.7 - 1.6 11/24 [facility] CHEM PANEL Globulin 3.2 g/dL 2.0 - 4.0 11/24 [facility] CHEM PANEL B/C Ratio 22 6 - 25 11/24 [facility]2014 [facility] CHEM PANEL AGAP 9.8 meq/L 10.0 - 11/24 [facility] 20.0 [facility] CHEM PANEL eGFR 29 11/24 3Result Comment: The eGFR is calculated using the CKD-EPI formula. In most young, healthy individuals the eGFR will be >90 mL/ min/1.73m2. The eGFR declines with age. An eGFR of 60-89 may be normal in [facility] mL/min/1.7 some populations, particularly the elderly, for whom the CKD-EPI formula has not been extensively validated. Use of the eGFR is not recommended in the following populations: [address] Individuals with unstable creatinine concentrations, including [...] values reflect the clinical guidelines of the [place] [employer]. [facility] CHEM PANEL Calcium Lvl 8.7 mg/dL 8.5 - 10.5 11/24 [facility] CHEM PANEL ALT 29 unit/L 0 - 65 11/24 [facility] CHEM PANEL AST 17 unit/L 0 - 37 11/[address] CHEM PANEL Albumin Lvl 3.7 g/dL 3.5 - 5.0 11/[address] CHEM PANEL Total Protein 6.9 g/dL 6.4 - 8.4 11/[address] CHEM PANEL CO2 28 meq/L 24 - 32 11/[address] CHEM PANEL Chloride Lvl 103 meq/L 95 - 109 11/[address] CHEM PANEL Potassium Lvl 3.8 meq/L 3.5 - 5.1 11/[address] CHEM PANEL Sodium Lvl 137 meq/L 135 - 145 11/[address] CHEM PANEL Creatinine 1.7 mg/dL 0.5 - 1.4 11/[address] CHEM PANEL BUN 37 mg/dL 7 - 22 11/[address] CHEM PANEL Alk Phos 37 unit/L 39 - 136 11/[address] CHEM PANEL Bili Total 0.4 mg/dL 0.2 - 1.3 11/[address] HEMATOLOGY Monocytes # 0.4 K/CMM 0.0 - 0.8 11/[address] HEMATOLOGY Lymphocytes # 1.1 K/CMM 1.0 - 5.5 11/[address] HEMATOLOGY Eosinophils # 0.1 K/CMM 0.0 - 0.5 11/[address] HEMATOLOGY Segs 70.9 % 45.0 - 02 [facility] 75.0 /2014 [facility] HEMATOLOGY Monocytes 6.7 % 2.0 - 12.0 11/[address] HEMATOLOGY Lymphocytes 19.7 % 20.0 - 02/ [facility] 40.0 /2014 [facility] HEMATOLOGY Eosinophils 2.3 % 0.0 - 4.[address] HEMATOLOGY Segs-Bands # 4.0 K/CMM 1.5 - 8.1 11/[address] HEMATOLOGY Basophils 0.4 % 0.0 - 1.0 11/[address] HEMATOLOGY PTT 28.2 s 22.9 - 02/ 10Interpretiv [facility] 35.8 /2015 e Data: [facility] Therapeutic Range: 57 - 92 Seconds HEMATOLOGY PT 13.9 s 12.0 - 11/24 [facility] 14.7 /2014 [facility] HEMATOLOGY INR 1.07 0.85 - 11/24 8Interpretive Data: RECOMMENDED RANGES FOR PROTIME INR: [facility] 1.17 2.0-3.0 for most medical and surgical thromboembolic states. Medical 2.5-3.5 for artificial heart valves and recurrent embolism. Center INR SHOULD BE USED ONLY FOR PATIENTS ON STABLE ANTICOAGULANT THERAPY. HEMATOLOGY MPV 8.8 fL 7.4 - 10.4 11/24 [facility] HEMATOLOGY WBC 5.7 K/CMM 3.7 - 10.4 11/24 [facility] HEMATOLOGY MCV 94.9 fL 80.0 - 11/24 [facility] 98.0 [facility] HEMATOLOGY RBC 3.73 M/CMM 4.20 - 11/24 [facility] 5.40 [facility] HEMATOLOGY RDW 13.3 % 11.5 - 11/24 [facility] 14.5 /2014 [facility] HEMATOLOGY Hgb 12.1 g/dL 12.0 - 11/24 [facility] 16.0 [facility] HEMATOLOGY Hct 35.3 % 36.0 - 11/24 [facility] 48.0 [facility] HEMATOLOGY Platelet 158 K/CMM 133 - 450 11/24 [facility] HEMATOLOGY MCHC 34.2 g/dL 32.0 - 11/24 [facility] 36.0 [facility] HEMATOLOGY MCH 32.5 pg 27.0 - 11/24 [facility] 31.0 [facility] LIPIDS CHD Risk 2.81 3.90 - 11/24 [facility] 5.80 [facility] LIPIDS VLDL 26 11/24 [facility] LIPIDS LDL 59 mg/dL <=99 mg/dL 11/24 [facility] (Calculated) [facility] LIPIDS Trig 128 mg/dL <=149 11/24 [facility] mg/dL [facility] LIPIDS HDL 47 mg/dL >=61 mg/dL 11/24 [facility] LIPIDS Chol 132 mg/dL <=199 11/24 [facility] mg/dL [facility] SPECIAL Hgb A1C 5.6 % <=5.6 % 11/24 [facility] CHEMISTRY [facility] Vital Signs Vital Sign Value Date Comments Source Respitory Rate 16 11/26/2014 [facility] Systolic (mm Hg) 172 11/26/2014 [facility] Diastolic (mm Hg) 79 11/26/2014 [facility] Heart Rate 57 11/26/2014 [facility] Temperature Oral (F) 97.5 F 11/26/2014 [facility] Temperature Oral (F) 97.5 F 11/26/2014 [facility] Heart Rate 69 11/26/2014 [facility] Diastolic (mm Hg) 79 11/26/2014 [facility] Respitory Rate 18 11/26/2014 [facility] Systolic (mm Hg) 166 11/26/2014 [facility] Respitory Rate 16 11/26/2014 [facility] Systolic (mm Hg) 157 11/26/2014 [facility] Diastolic (mm Hg) 66 11/26/2014 [facility] Heart Rate 65 11/24/2014 [facility] Weight 114.318 11/24/2014 [facility] BMI Calculated 43.26 11/24/2014 [facility] Height 162.56 cm 11/24/2014 [facility] Encounters Location Location Encounter Encounter Reason Attending ADM DC Status Source Details Type Number For Provider Date Date Visit [facility] [id number] Richardrosalba Salmon 11/24 11/26 [facility] /2014 [facility] PT/INR 3.0 [id number] 12/19 12/19 [facility] [id number]- /2014 [facility] [id number] y [facility] [place] PT/INR 3.0 [id number] 12/19 12/19 [facility] [id number]- /2014 [facility] [id number] [facility] [place] PT/INR 3.0 [id number] 12/19 12/19 [facility] [id number]- /2014 [facility] [id number] [facility] [place] PT/INR 3.0 [id number] 12/19 12/19 [facility] [id number]- /2014 [facility] [id number] y [facility] [place] Unknown [id number] 12/19 12/19 [facility] [id number]- /2014 [facility] [id number] y [facility] [place] Unknown [id number] 12/19 12/19 [facility] [id number]- /2014 [facility] [id number] y [facility] [place] Unknown [id number] 12/19 12/19 [facility] [id number]- /2014 [facility] [id number] [facility] [place] Unknown [id number] 12/19 12/19 [facility] [id number]- /2014 [facility] [id number] [facility] [place] PT/INR 3.0 [id number] 12/19 12/19 [facility] [id number]- /2014 [facility] [id number] [facility] [place] PT/INR 3.0 [id number] 12/19 12/19 [facility] [id number]- /2014 [facility] [id number] y [facility] [place] Unknown [id number] 12/19 12/19 [facility] [id number]- /2014 [facility] [id number] y [facility] [place] Unknown [id number] 12/19 12/19 [facility] [id number]- /2014 [facility] [id number] y [facility] [place] [id number] 03/23 03/23 [facility] [id number]- /2014 [facility] [id number] y [facility] [place] Unknown [id number] 03/23 03/23 [facility] [id number]- /2014 [facility] [id number] [facility] [place] Unknown [id number] 03/23 03/23 [facility] [id number]- /2014 [facility] [id number] [facility] [place] Unknown [id number] 03/23 03/23 [facility] [id number]- /2014 [facility] [id number] [facility] [place] Unknown [id number] 03/23 03/23 [facility] [id number]- /2014 [facility] [id number] y [facility] [place] Unknown [id number] 03/23 03/23 [facility] [id number]- /2014 [facility] [id number] y [facility] [place] [id number] 08/12 08/12 [facility] [id number]- /2014 [facility] [id number] y [facility] [place] Unknown [id number] 08/12 08/12 [facility] [id number]- /2014 [facility] [id number] y [facility] [place] Unknown [id number] 08/12 08/12 [facility] [id number]- /2014 [facility] [id number] y [facility] [place] Unknown [id number] 08/12 08/12 [facility] [id number]- /2014 [facility] [id number] y [facility] [place] Unknown [id number] 08/12 08/12 [facility] [id number]- /2014 [facility] [id number] y [facility] [place] [id number] 08/12 08/12 [facility] [id number]- /2014 [facility] [id number] [facility] [place] Unknown [id number] 01/28 01/28 [facility] [id number]-vm97- /2015 [facility] [id number] [facility] [place] [id number] 01/28 01/28 [facility] [id number]- /2015 [facility] [id number] [facility] [place] Unknown [id number] 01/28 01/28 [facility] [id number]- /2015 [facility] [id number] [facility] [place] Unknown [id number] 01/28 01/28 [facility] [id number]-c563- /2015 [facility] [id number] y [facility] [place] Unknown [id number] 01/28 01/28 [facility] [id number]- /2015 [facility] [id number] y [facility] [place] Unknown [id number] 01/28 01/28 [facility] 5-9801-mfc2- /2015 [facility] [id number] y [facility] [place] Unknown [id number] 03/11 03/11 [facility] [id number]- /2015 [facility] [id number] y [facility] [place] Unknown [id number] 03/11 03/11 [facility] i-[id number]- /2015 [facility] [id number] y [facility] [place] Unknown [id number] 03/11 03/11 [facility] [id number]- /2015 [facility] [id number] y Consult [place] Unknown [id number] 03/11 03/11 [facility] [id number]- /2015 [facility] [id number] y Consult [place] Unknown [id number] 03/11 03/11 [facility] [id number]- /2015 [facility] [id number] y Consult [place] Unknown [id number] 04/15 04/15 [facility] [id number]- /2015 [facility] [id number] y Consult [place] Unknown [id number] 04/15 04/15 [facility] [id number]-70b6- /2015 [facility] [id number] y Consult [place] Unknown [id number] 04/15 04/15 [facility] [id number]- /2015 [facility] [id number] y [facility] [place] Unknown [id number] 04/15 04/15 [facility] [id number]- /2015 [facility] [id number] y Consult [place] Unknown [id number] 04/15 04/15 [facility] z-[id number]- /2015 [facility] [id number] y Consult [place] Unknown [id number] 04/15 04/15 [facility] [id number]-j170- /2015 [facility] [id number] y Consult [place] Unknown [id number] 04/15 04/15 [facility] [id number]- /2015 [facility] [id number] y Consult [place] Unknown [id number] 04/15 04/15 [facility] [id number]- /2015 [facility] [id number] y [facility] [place] Other [id number] 09/09 09/09 [facility] [id number]- /2015 [facility] [id number] y [facility] [place] Other [id number] 09/09 09/09 [facility] [id number]- /2015 [facility] [id number] y Consult [place] Unknown [id number] 12/20 12/20 [facility] [id number]- /2016 [facility] [id number] y Consult Procedures Procedure Code Date Perfomer Comments Source Knee replacement [id number] [facility]
--- OUTSIDE RECORDS SUMMARY | 2018-09-05 06:20 | XMS REPORT ---
:1940 Author Organization eClinical[employer] Care Team Providers Name Role Phone Melissa Salmon Provider Role Unavailable Encounters Encounter Location Date Unknown [place] [employer] Aug 12, 2015 Unknown [place] [employer] January 29, 2016 Unknown [place] [employer] Dec 19, 2014 PT/INR 3.0 [place] [employer] [facility] Dec 19, 2014 Unknown [place] [employer] March 23, 2015 Problems Problem Type Condition [...]
--- OUTSIDE RECORDS SUMMARY | 2018-09-05 06:20 | XMS REPORT ---
:1939 [facility] Team Providers Name Role [...] Start Date End Date Status Dosage Denae [facility] [address] 5 MG Orally twice Jun 08, Active 1 tablet -21 a day 2016 Results No Known Results Summary Purpose eClinicalWorks Submission
--- OUTSIDE RECORDS SUMMARY | 2018-09-05 06:20 | XMS REPORT ---
:1940 [facility] Team Providers Name Role Phone [...] Date Status Dosage Edarbyclor [facility] [address] 40-25 MG Orally January 02, Active 1 tablet -30 Once a day 2016 Results No Known Results Summary Purpose eClinicalWorks Submission
--- OUTSIDE RECORDS SUMMARY | 2018-09-05 06:20 | XMS REPORT ---
:1939 [facility] Team Providers Name Role [...]
--- OUTSIDE RECORDS SUMMARY | 2018-09-05 06:20 | XMS REPORT ---
:1940 [facility] Team Providers Name Role Phone eMlissa Samlon Provider Role Unavailable Allergies No Known Allergies [...] Start Date End Date Status Dosage Edarbyclor [facility] [address] 40-25 MG Orally January 17, Active 1 tablet -30 Once a day 2016 Results No Known Results Summary Purpose eClinicalWorks Submission
--- OUTSIDE RECORDS SUMMARY | 2018-09-05 06:21 | XMS REPORT ---
:1939 [facility] Team Providers Name Role Phone Bennett Salmon Provider Role Unavailable Encounters Encounter Location Date Unknown [place] [facility] [employer] Aug 12, 2015 Unknown [place] [facility] January 29, 2016 Unknown [place] [facility] March 11, 2016 Unknown [place] [facility] [employer] April 15, 2016 Unknown [place] [facility] [employer] Dec 19, 2014 PT/INR 3.0 [place] [facility] Dec 19, 2014 Unknown [place] [facility] [employer] March 23, 2015 Unknown [place] [facility] April 15, 2016 Problems Problem Type Condition [...] Date End Date Status Dosage Cipro MEDISPAN [address] 500 MG Orally April 15 1 tablet [...]
--- OUTSIDE RECORDS SUMMARY | 2018-09-05 06:21 | XMS REPORT ---
:1940 Author Organization eClinicalWorks Care Team Providers Name Role Phone Melissa Salmon Provider Role Unavailable Encounters Encounter Location Date Unknown [place] [employer] Specialist Aug 12, 2015 Unknown [place] [employer] January 29, 2016 Unknown [place] [employer] [facility] March 11, 2016 Unknown [place] [employer] [facility] Dec 19, 2014 PT/INR 3.0 [place] [employer] [facility] Dec 19, 2014 Unknown [place] [employer] [facility] March 23, 2015 Problems Problem Type Condition [...]
--- OUTSIDE RECORDS SUMMARY | 2018-09-05 06:21 | XMS REPORT ---
:1939 [facility] Team Providers Name Role Phone Melissa Salmon Provider Role Unavailable Encounters Encounter Location Date Unknown [place] [employer] Aug 12, 2015 Unknown [place] [employer] January 29, 2016 Unknown [place] [employer] March 11, 2016 Unknown [place] [employer] April 15, 2016 Unknown [place] [employer] Dec 19, 2014 PT/INR 3.0 [place] [employer] Dec 19, 2014 Unknown [place] [employer] March 23, 2015 Unknown [place] [employer] Dec 20, 2016 Unknown [place] [facility] [employer] [facility] April 15, 2016 Other [place] [employer] [facility] Sep 09, 2016 Problems Problem Type Condition [...] End Status Dosage Date Date Tikosyn MEDISPAN [id number] 500 Inactive TAKE ONE CAPSULE BY MOUTH TWICE A DAY Dofetilide MEDISPAN [address]-18 500 MCG Orally Dec 20, Active 1 [...]
--- OUTSIDE RECORDS SUMMARY | 2018-09-05 06:21 | XMS REPORT ---
:1940 [facility] Team Providers Name Role Phone Melissa Salmon Provider Role Unavailable Encounters Encounter Location Date Unknown [place] [employer] Aug 12, 2015 Unknown [place] [employer] January 29, 2016 Unknown [place] [employer] March 11, 2016 Unknown [place] [employer] April 15, 2016 Unknown [place] [employer] Dec 19, 2014 PT/INR 3.0 [place] [employer] Dec 19, 2014 Unknown [place] [employer] March 23, 2015 Unknown [place] [employer] April 15, 2016 Other [place] [employer] Sep 09, 2016 Problems Problem Type Condition [...] End Status Dosage Date Date Doxazosin MEDISPAN [id number] 4 Inactive TAKE ONE Mesylate TABLET BY [...]
--- OUTSIDE RECORDS SUMMARY | 2018-09-05 06:21 | XMS REPORT ---
:1939 [facility] Team Providers Name Role Phone Bennett Salmon Provider Role Unavailable Encounters Encounter Location Date Unknown [place] [employer] Aug 12, 2015 Unknown [place] [employer] [facility] January 29, 2016 Unknown [place] [employer] [facility] March 11, 2016 Unknown [place] [facility] [facility] April 15, 2016 Unknown [place] [employer] Dec 19, 2014 PT/INR 3.0 [place] [employer] Dec 19, 2014 Unknown [place] [employer] March 23, 2015 Unknown [place] [employer] [facility] April 15, 2016 Problems Problem Type Condition [...] Date End Date Status Dosage Cipro MEDISPAN [address] 500 MG Orally April 15 1 tablet [...]
[2018-09-05] MEDS ORDERED: Ringers Lactate 1,000 ML IV ONE (06:41)
[2018-09-05] MEDS ORDERED: TRIAMCINOLONE ACETON 40 MG/ML VIAL ONE (06:49)
[2018-09-05] MEDS ORDERED: BUPIVACAINE 0.25% PF 10 ML VIAL ONE (06:50)
[2018-09-05] MEDS ORDERED: LIDOCAINE 1% MPF 30 ML VIAL ONE (06:50)
[2018-09-05] MEDS ORDERED: PROPOFOL 200 MG/20 ML VIAL IV ONE (07:02)
[2018-09-05] MEDS ORDERED: MIDAZOLAM HCL 2 MG/2 ML INJ ONE (07:02)
[2018-09-05] MEDS ORDERED: LIDOCAINE 2% MPF 5 ML VIAL ONE (07:03)
[2018-09-05] MEDS ORDERED: DEXAMETHASONE 10 MG/ML VIAL ONE (08:00)
--- NOTE | 2018-09-05 08:21 | RAD REPORT ---
EXAM DESCRIPTION: RAD - Fluoro Guide Spinal Inj - 09/05/2018 7:36 am CLINICAL HISTORY: LUMBAR STEROID INJECTION IN OR1 COMPARISON: Fluoro Guide Spinal Inj dated 08/22/2018 FINDINGS: Fluoroscopic imaging is submitted from lumbar spine pain injection. Details of the procedu re are not available. Total fluoro time 0.1 minutes.
[2018-09-05] MEDS ORDERED: GLYCOPYRROLATE 0.2 MG/ML SYR ONE (08:41)
[2018-09-05] MEDS ORDERED: NEOSTIGMINE 1 MG/ML -5 ML SYRINGE ONE (08:41)
--- NOTE | 2018-09-05 18:20 | OP ---
Date of Procedure: 09/05/2018 Surgeon: Thiago Beltran DO Preoperative Diagnoses: Low back pain, lumbar facet arthropathy, lumbar spondylosis, lumbar degenera tive disk disease. Postoperative Diagnosis: Low back pain, lumbar facet arthropathy, lumbar spondylosis, lumbar degener ative disk disease. Procedures: 1.Fluoroscopy with evaluation of lumbar spine. 2.Lumbar epidural steroid injection. Anesthesia: MAC with IV sedation. Estimated Blood Loss: Minimal. Complication: None. Procedure In Detail: Ms. You is a 78-year-old female who has history of chronic low back pain. She underwent a lumbar epidural steroid injection 2 weeks ago with good relief of the discomfort. Ri sks and benefits of procedure explained to the patient. The patient agrees to proceed with the belkis martell. The patient was taken to the OR room #1, placed in the prone position. The back was prepped a nd draped in sterile fashion. Sacral hiatus was identified. 1% lidocaine used for local anesthesia. A 16-gauge RK needle was used until passing into the sacral hiatus. Needle tip position was confir med in the AP and lateral fluoroscopic views. Next the epidural catheter was advanced through cephal ad direction. Catheter was placed between the L5-S1 region at the midline. Catheter was confirmed i n the AP and lateral fluoroscopic views. Next, 10 cc of Omnipaque contrast was used to perform diagn ostic lumbar epidurogram with very minimal spread of the dye in a separate direction from that level. Next, 3 cc of 0.25% Marcaine was given as a test dose after few minutes. There was no evidence of intrathecal or intravascular subdural spread of local anesthetic. Next, 7 cc of 0.25% Marcaine was m ixed with 40 mg of Kenalog. This was injected slowly with frequent negative aspirations. After procedure was completed, the patient then was taken to the recovery room in stable condition. MR/JAMIL Voice ID: [id number] Report ID: [id number]
--- NOTE | 2018-09-05 18:23 | DS ---
Date of Discharge: 09/05/2018 Admission Diagnosis: Low back pain. Discharge Diagnosis: Low back pain. Pertinent History: Per her history and physical on the chart. Hospital Course: Uneventful. Condition On Discharge: Good. Diet: As before. Activity: As tolerated. Followup: She is to follow up in my office in 1-2 weeks. IRASEMA Voice ID: [id number] Report ID: [id number]
== END 2018-09-05 08:40 | disposition home or self-care (01) ==
LOC: OR 06:13
PROVIDERS: ATTEND Anesthesiology
PROC: 3E0R33Z Introduction of Anti-inflammatory into Spinal Canal, Percutaneous Approach (ICD-10-PCS; 2018-09-05)
PROC: B01BZZZ Fluoroscopy of Spinal Cord (ICD-10-PCS; 2018-09-05)
PROC: 3E0R3BZ Introduction of Anesthetic Agent into Spinal Canal, Percutaneous Approach (ICD-10-PCS; principal; 2018-09-05 07:00)
DX: M54.5 Low back pain (principal); M47.896 Other spondylosis, lumbar region; M51.16 Intervertebral disc disorders with radiculopathy, lumbar region; I10 Essential (primary) hypertension; J45.909 Unspecified asthma, uncomplicated; K21.9 Gastro-esophageal reflux disease without esophagitis; E07.9 Disorder of thyroid, unspecified; Z86.73 Personal history of transient ischemic attack (TIA), and cerebral infarction without residual deficits
CPT/HCPCS: 62323; 77003; J1100; J2250; J2704; J2710; J3301; Q9967

== ENCOUNTER 2018-11-21 14:54 | Inpatient (IN) | payer OTHER, MEDICARE ==
--- OUTSIDE RECORDS SUMMARY | 2018-11-21 14:59 | XMS REPORT ---
:1939 [facility] Care Team Providers Name Role [...] Date End Date Status Dosage Denae [facility] [address] 5 MG Orally twice Jun 08, Active 1 tablet -21 a day 2016 Results No Known Results Summary Purpose eClinicalWorks Submission
--- OUTSIDE RECORDS SUMMARY | 2018-11-21 14:59 | XMS REPORT ---
:1940 [facility] Providers Name Role Phone [...] Start Date End Date Status Dosage Edarbyclor [facility] [id number] 40-25 MG Orally January 02, Active 1 tablet -30 Once a day 2016 Results No Known Results Summary Purpose eClinicalWorks Submission
--- OUTSIDE RECORDS SUMMARY | 2018-11-21 14:59 | XMS REPORT | Continuity of Care Document ---
:1940 Author Organization Interface Problems Problem Status Onset Classification Date Comments Source Date Reported LFLT TRANSFER#[id number] ISCHEMIC STROKE Active [address] Atrial fibrillation Active Problem 06/17/2017 [facility] Consult Personal history of Active Problem 06/17/2017 [place] transient ischemic Cardiology attack [TIA], and Consult cerebral infarction without residual deficits Palpitations Active Problem 06/17/2017 [facility] Transient cerebral Active Problem 06/17/2017 [place] ischemic attack, Cardiology unspecified Consult Bradycardia, Active Problem 06/17/2017 [place] unspecified Cardiology Consult Personal history of Active Problem 06/17/2017 [place] transient ischemic Cardiology attack , and Consult cerebral infarction without residual deficits History of falling Active Problem 06/17/2017 [place] [facility] Consult Abnormal Active Problem 06/17/2017 [place] electrocardiogram Cardiology [ECG] [EKG] Consult Morbid obesity due Active Problem 06/17/2017 [place] to excess calories Cardiology Consult Arthropathy, Active Problem 06/17/2017 [place] unspecified Cardiology Consult Major depressive Active Problem 06/17/2017 [place] disorder, single Cardiology episode, unspecified Consult Chest pain, Active Problem 06/17/2017 [place] unspecified [facility]iology Consult Shortness of breath Active Problem 06/17/2017 [facility] Consult Constipation, Active Problem 06/17/2017 [place] unspecified [facility]iology Consult Hypothyroidism, Active Problem 06/17/2017 [place] unspecified [facility]iology Consult Hyperlipidemia, Active Problem 06/17/2017 [place] unspecified [facility]iology Consult Chronic kidney Active Problem 06/17/2017 [place] disease, unspecified Cardiology Consult Insomnia, Active Problem 06/17/2017 [place] unspecified [facility]iology Consult Nonrheumatic mitral Active Problem 06/17/2017 [place] insufficiency [facility]iology Consult Paroxysmal atrial Active Problem 06/17/2017 [place] fibrillation [facility]iology Consult 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 Essential Active Problem 06/17/2017 [place] hypertension [facility]iology Consult Chronic kidney Active Problem 06/17/2017 [place] disease, Stage III Cardiology Consult Congestive 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 [place] failure, unspecified Cardiology Consult Hypertension Active Problem 06/17/2017 [place] essential benign Cardiology Consult 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 [place] stenosis of carotid Cardiology artery without Consult mention of cerebral infarction Insomnia, Active Problem 06/17/2017 [place] unspecified [facility]iology Consult Mitral valve Active Problem 06/17/2017 [place] disorders [facility]iology Consult Other and Active Problem 06/17/2017 [place] unspecified [facility]iology hyperlipidemia Consult Unspecified Active Problem 06/17/2017 [place] hypothyroidism Cardiology Consult Obesity, unspecified Active Problem 06/17/2017 [place] [facility] Consult Other malaise and Active Problem 06/17/2017 [place] fatigue [facility] Consult Shortness of breath Active Problem 06/17/2017 [place] [facility] Chest pain, Active Problem 06/17/2017 [place] unspecified [facility]iology Consult Chronic diastolic Active Problem 06/17/2017 [place] heart failure Cardiology Consult Unspecified Active Problem 06/17/2017 [place] constipation [facility]iology Consult 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 [place] and chronic kidney Cardiology disease with heart Consult failure and stage 1 through stage 4 chronic kidney disease, or unspecified chronic kidney disease Impaired fasting Active Problem 06/17/2017 [place] blood sugar Cardiology Consult Overactive bladder Active Problem 06/17/2017 [place] [facility] Anxiety disorder, Active Problem 06/17/2017 [place] unspecified [facility]iology Consult Incontinence without Active Problem 06/17/2017 [place] sensory awareness Cardiology Consult Encounter for Active Problem 06/17/2017 [place] screening for Cardiology diabetes mellitus Consult Retention of urine, Active Problem 06/17/2017 [place] unspecified [facility]iology Consult Hypertensive 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 [place] and chronic kidney Cardiology disease, benign, Consult with heart failure and with chronic kidney disease stage I through stage IV, or unspecified Depressive disorder, Active Problem 06/17/2017 [place] not elsewhere Cardiology classified Consult Urinary tract Active Problem 06/17/2017 [place] infection, site not Cardiology specified Consult Unspecified Active Problem 06/17/2017 [place] arthropathy, site Cardiology unspecified Consult Frequency of Active Problem 06/17/2017 [place] micturition Cardiology Consult Morbid obesity Active Problem 06/17/2017 [place] [facility] Consult Female genuine Active Problem 06/17/2017 [place] stress incontinence Cardiology Consult Nonspecific abnormal Active Problem 06/17/2017 [place] electrocardiogram Cardiology (EKG) Consult Palpitations Active Problem 06/17/2017 [place] [facility] Consult Other specified Active Problem 06/17/2017 [place] cardiac dysrhythmias Cardiology Consult Upper respiratory Active Problem 06/17/2017 [place] tract [facility] hypersensitivity Consult reaction, site unspecified Unspecified Active Problem 06/17/2017 [place] transient cerebral Cardiology ischemia Consult Personal history of Active Problem 06/17/2017 [place] fall [facility]iology Consult Acute upper Active Problem 06/17/2017 [place] respiratory [facility] infections of Consult unspecified site Acid reflux disease Resolved Problem 11/28/2014 [facility] High cholesterol Resolved Problem 11/28/2014 [facility] Hyperlipidemia Resolved Problem 11/28/2014 [facility] Hypertension Resolved Problem 11/28/2014 [facility] Hypothyroidism Resolved Problem 11/28/2014 [facility] CVA Active [facility] Medications Medication Details Route Status Patient Ordering Order Source Instructions Provider Date Eliquis 1 tablet Orally Active 5 MG Orally [facility] [place] twice a day 2016 Cardiology Consult [place] 1 tablet Orally Active 40-25 MG [facility] [place] Orally Once a 2017 Cardiology day Consult [place] 1 tablet Orally Active 40-25 MG [facility] [place] Orally Once a 2016 Cardiology day Consult Dofetilide 1 capsule Orally Active 500 MCG [facility] [place] Orally Twice 2017 Cardiology a day Consult Cipro 1 tablet Orally Active 500 MG Orally [facility] [place] Twice a day 2015 Cardiology Consult Warfarin 5 mg, 1 tab, Inactive [facility] Route: PO, 2014 Medical Drug form: [...] Refill(s) atorvastatin 40 40 mg=1 tab, Active 11/26[facility] [place] mg oral tablet PO, Bedtime, 2015 [...] Refill(s) valsartan 40 mg, 1 tab, Inactive [place] Route: PO, 2014 Medical Drug form: [place] TAB, Q12H, Dosing Weight 114.318, kg, Start date: 11/26/14 9:00:00, Duration: 30 day, Stop date: 12/25/14 21:00:00Notes : Same as Diovan Protonix 40 mg, 1 tab, No Longer [place] Route: PO, Active 2014 Medical Drug form: [place] ECTAB, Before Dinner, Start date: 11/25/14 16:30:00, Duration: 30 day, Stop date: 12/24/14 16:30:00Notes : Tablet should not be chewed or crushed. (Same as: Protonix) Atenolol 12.5 mg, 0.5 No Longer [place] tab, Route: Active 2014 Medical PO, Drug Center form: TAB, Daily, Dosing Weight 114.318, kg, Start date: 11/25/14 9:00:00, Duration: 30 day, Stop date: 12/24/14 9:00:00Notes: (Same As:Tenormin) valsartan 320 mg, No Longer [facility] Route: PO, Active 2014 Medical Drug form: [place] TAB, Daily, Dosing Weight 114.318, kg, Start date: 11/25/14 9:00:00, Duration: 30 day, Stop date: 12/24/14 9:00:00 Thyroxine 100 No Longer [facility] microgram, 1 Active 2014 Medical tab, Route: [place] PO, Drug form: TAB, Q630AM, Dosing Weight 114.318, kg, Start date: 11/25/14 6:30:00, Duration: 30 day, Stop date: 12/24/14 6:30:00Notes: Take 1 hour before or 2 hours after meal; Enteral feeds may interefere with the absorption of this medication. (Same as:Levothroid , Synthroid) heparin, porcine 7,500 unit, No Longer [place] 1.5 mL, Active 2014 Medical Route: SUB-Q, [place] Drug form: INJ, Q8H, Dosing Weight 114.318, kg, Start date: 11/24/14 22:00:00, Duration: 30 day, Stop date: 12/24/14 16:00:00Notes : porcine heparin Plavix 75 mg, 1 tab, No Longer [facility] Route: PO, Active 2014 Medical Drug form: Center TAB, Daily, Dosing Weight 114.318, kg, Start date: 11/24/14 22:00:00, Duration: 30 day, Stop date: 12/24/14 9:00:00Notes: (Same As: Plavix) Tylenol 650 mg, 2 No Longer [facility] tab, Route: Active 2014 Medical PO, Drug Center form: TAB, Q6H, Dosing Weight 114.318, kg, PRN Pain, Start date: 11/24/14 21:16:00, Duration: 30 day, Stop date: 12/24/14 21:15:00Notes : Do not exceed 4 gm/day. (Same as: Tylenol) atorvastatin 40 mg, 1 tab, No Longer [facility] Route: PO, Active 2014 Medical Drug form: Center TAB, Bedtime, kg, Start date: 11/24/14 21:00:00, Duration: 30 day, Stop date: 12/23/14 21:00:00Notes : (Same as: Lipitor) Bupropion 150 mg, 1 No Longer [facility] tab, Route: Active 2014 Medical PO, Drug Center form: ERTAB, BID, Dosing Weight 114.318, kg, Start date: 11/24/14 17:00:00, Duration: 30 day, Stop date: 12/24/14 9:00:00Notes: (Do not crush) (Same As: Wellbutrin SR) valsartan 40 mg, Route: Inactive [facility] PO, BID, 2014 Medical Dosing Weight Center 114.318, kg, Start date: 11/24/14 17:00:00, Duration: 30 day, Stop date: 12/24/14 9:00:00 Triiodothyronine 10 microgram, No Longer [facility] 2 tab, Route: Active 2014 Medical PO, Drug Center form: TAB, QAM, Dosing Weight 114.318, kg, Priority: NOW, Start date: 11/24/14 15:35:00, Duration: 30 day, Stop date: 12/24/14 9:00:00Notes: (Same as: Cytomel) Atenolol 100 MG 50 mg=0.5 No Longer [facility] Oral Tablet tab, PO, BID, Active 2015 Medical # 30 tab, 0 Center Refill(s) pravastatin 40 mg 40 mg=1 tab, No Longer [facility] oral tablet PO, Bedtime, Active 2015 Medical # 30 tab, 0 Center Refill(s) Furosemide 40 MG 40 mg=1 tab, No Longer [place] Oral Tablet PO, Daily, # Active 2015 Medical [Lasix] 30 tab, 0 Center Refill(s) spironolactone 25 25 mg=1 tab, No Longer [facility] mg oral tablet PO, Daily, # Active 2014 Medical 60 tab, 0 Center Refill(s) Potassium 20 mEq=1 tab, No Longer [place] Chloride 20 MEQ PO, Daily, 0 Active 2015 Medical Extended Release Refill(s) Center Tablet omeprazole 40 mg 40 mg=1 cap, Active [place] oral delayed PO, Daily, # 2015 Medical release capsule 30 cap, 0 Center Refill(s) Metolazone 5 MG 5 mg=1 tab, No Longer [facility] Oral Tablet PO, Daily, # Active 2015 Medical 30 tab, 0 Center Refill(s) liothyronine 5 10 Active [facility] mcg oral tablet microgram=2 2014 Medical tab, PO, QAM, Center # 30 tab, 0 Refill(s) Fenofibrate 160 160 mg=1 tab, No Longer [facility] MG Oral Tablet PO, Daily, # Active 2015 Medical 30 tab, 0 Center Refill(s) Zolpidem tartrate 10 mg=1 tab, Active [place] 10 MG Oral Tablet PO, Bedtime, 2015 Medical [Ambien] for sleep, 0 Center Refill(s) buPROPion 150 150 mg=1 tab, Active [facility] mg/24 hours oral PO, BID, # 30 2015 Medical extended release tab, 0 Center tablet Refill(s) Albuterol 0.09 2 puff, No Longer [facility] MG/ACTUAT Metered INHALATION, Active 2015 Medical Dose Inhaler Q6H, as Center [Ventolin] needed for wheezing, # 17 gm, 0 Refill(s) levothyroxine 100 100 Active [place] mcg (0.1 mg) oral microgram=1 2014 Medical tablet tab, PO, QA, Center # 30 tab, 0 Refill(s) doxazosin 4 mg 4 mg=1 tab, Active [facility] oral tablet PO, Daily, # 2015 Medical 30 tab, 0 Center Refill(s) valsartan 320 mg 320 mg=1 tab, No Longer [facility] oral tablet PO, Daily, # Active 2014 Medical 30 tab, 0 Center Refill(s) Triiodothyronine 5 microgram, Inactive [facility] 1 tab, Route: 2014 Medical PO, Drug Center form: TAB, Daily, Dosing Weight 114.318, kg, Start date: 11/24/14 14:09:00, Duration: 30 day, Stop date: 12/24/14 9:00:00Notes: (Same as: Cytomel) Reglan 5 mg, 1 mL, Inactive [facility] Route: IV, 2014 Medical Drug form: [place] INJ, ONCE, Dosing Weight 114.318, kg, Start date: 11/24/14 11:44:00, Stop date: 11/24/14 11:44:00Notes : (Same as: Reglan) Magnesium Sulfate 2 gm, 50 mL, Inactive [facility] Route: IVPB, 2014 Medical Drug form: [place] INJ, ONCE, Dosing Weight 114.318, kg, Total dose=2 gm, Start date: 11/24/14 11:27:00, Duration: 1 doses or times, Stop date: 11/24/14 11:27:00 pneumococcal 0.5 ml, Inactive [facility] capsular Route: IM, 2014 Medical polysaccharide Drug Form: [place] type 1 vaccine / INJ, Daily, pneumococcal Start date: capsular 11/24/14 polysaccharide 9:00:00, Stop type 10A vaccine date: / pneumococcal 11/24/14 capsular 23:59:00Notes polysaccharide : (Same as: type 11A vaccine Pneumovax 23) / pneumococcal Refrigerate capsular polysaccharide type 12F vaccine / pneumococcal capsular polysacchar Saline Flush 0.9% 10 ml, Route: No Longer [facility] IVP, Drug Active 2014 Medical Form: INJ, Center kg, Q12H, Start date: 11/24/14 9:00:00, Duration: 30 day, Stop date: 12/23/14 21:00:00Notes : (Same as: BD Posiflush) Versed 0.5 mg, 0.5 Inactive [facility] mL, Route: 2014 Medical IVP, Drug Center form: INJ, ONCE, Dosing Weight 114.318, kg, Start date: 11/24/14 8:31:00, Stop date: 11/24/14 8:31:00Notes: (Same as: Versed) Pravastatin 40 mg=1 tab, Inactive [facility] Sodium 40 MG Oral PO, Bedtime, 2014 Medical Tablet # 30 tab, 0 Center [Pravachol] Refill(s) aspirin 0 Refill(s) Inactive [facility] 2014 Medical Center Fenofibrate 160 160 mg=1 tab, Inactive [facility] MG Oral Tablet PO, Daily, # 2015 Medical 30 tab, 0 Center Refill(s) Atenolol 0 Refill(s) Inactive [facility] 2014 [facility] valsartan 320 mg 320 mg=1 tab, Inactive [facility] oral tablet PO, Daily, # 2015 Medical 30 tab, 0 Center Refill(s) Potassium 0 Refill(s) Inactive [facility] Chloride 20 MEQ 2014 Medical Extended Release Center Tablet Metolazone 5 MG 5 mg=1 tab, Inactive [facility] Oral Tablet PO, Daily, # 2015 Medical 30 tab, 0 Center Refill(s) Furosemide 40 MG 40 mg=1 tab, Inactive [facility] Oral Tablet PO, Daily, # 2015 Medical [Lasix] 30 tab, 0 Center Refill(s) liothyronine 5 5 microgram=1 Inactive [facility] mcg oral tablet tab, PO, 2014 Medical Daily, # 30 Center tab, 0 Refill(s) Omeprazole 0 Refill(s) Inactive [facility] 2014 Medical Center spironolactone 25 0 Refill(s) Inactive [facility] mg oral tablet 2014 [facility] Zofran 4 mg, 2 mL, Inactive [facility] Route: IVP, 2014 Medical Drug form: Center INJ, ONCE, Dosing Weight 114.318, kg, Start date: 11/24/14 7:08:00, Stop date: 11/24/14 7:08:00Notes: (Same as: Zofran) Tylenol 650 mg, 2 Inactive [facility] tab, Route: 2015 Medical PO, Drug Center form: TAB, Q6H, kg, PRN Pain 1-3/Temp > 99.5 F, Start date: 11/24/14 0:48:00, Stop date: 12/24/14 0:47:00Notes: Do not exceed 4 gm/day. (Same as: Tylenol) Sodium Chloride 1,000 mL, No Longer [facility] 0.154 MEQ/ML Rate: 75 Active 2014 Medical Injectable ml/hr, Infuse Center Solution over: 13.3 hr, Route: IV, Total Volume: 1,000, Start date: 11/23/14 23:06:00, Duration: 30 day, Stop date: 12/23/14 23:05:00 Saline Flush 0.9% 10 ml, Route: No Longer [facility] IVP, Drug Active 2014 Medical Form: INJ, Center kg, PRN, PRN Line Flush, Start date: 11/23/14 22:58:00, Duration: 30 day, Stop date: 12/23/14 22:57:00Notes : (Same as: BD Posiflush) Acetaminophen 650 mg, 2 No Longer [facility] tab, Route: Active 2014 Medical PO, Drug Center form: TAB, Q4H, kg, PRN Pain 1-3/Temp > 99.5 F, Start date: 11/23/14 22:58:00, Duration: 30 day, Stop date: 12/23/14 22:57:00Notes : Do not exceed 4 gm/day. (Same as: Tylenol) Tikosyn TAKE ONE NA No Longer 500 Ali Chávez CAPSULE BY Active Cardiology MOUTH TWICE A Consult DAY Doxazosin TAKE ONE NA No Longer 4 Ali Chávez Mesylate TABLET BY Active Cardiology MOUTH DAILY Consult Allergies, Adverse Reactions, Alerts Substance Category Reaction Severity Reaction Status Date Comments Source type Reported Immunizations Immunization Date Given Site Status Last Updated Comments Source pneumococcal 11/24/[address] [facility] 23-valent vaccine Medical Center Results Order Name Results Value Reference Date Interpretation Comments Source Range CHEM PANEL Magnesium Lvl 2.1 mg/dL 1.8 - 2.4 11/26 [facility] CHEM PANEL Phosphorus 2.8 mg/dL 2.5 - 4.5 11/26 2014 [facility] CHEM PANEL eGFR 40 11/26 1Result Comment: The eGFR is calculated using the CKD-EPI formula. In most young, healthy individuals the eGFR will be >90 mL/ min/1.73m2. The eGFR declines with age. An eGFR of 60-89 may be normal in [facility] mL/min/1.7 some populations, particularly the elderly, for whom the CKD-EPI formula has not been extensively validated. Use of the eGFR is not recommended in the following populations: [address] Individuals with unstable creatinine concentrations, including [...] values reflect the clinical guidelines of the [place] [employer]. [facility] CHEM PANEL BUN 18 mg/dL 7 - 22 11/26 [facility] CHEM PANEL Creatinine 1.3 mg/dL 0.5 - 1.4 11/26 [facility] CHEM PANEL Sodium Lvl 136 meq/L 135 - 145 11/26 [facility] CHEM PANEL Chloride Lvl 102 meq/L 95 - 109 11/26 [facility] CHEM PANEL Potassium Lvl 3.5 meq/L 3.5 - 5.1 11/26 [facility] CHEM PANEL Calcium Lvl 9.0 mg/dL 8.5 - 10.5 11/26 [facility] CHEM PANEL CO2 25 meq/L 24 - 32 11/26 [facility] CHEM PANEL AGAP 12.5 meq/L 10.0 - 11/26 20.0 [facility] HEMATOLOGY RDW 13.1 % 11.5 - 11/26 14.5 /2014 [facility] HEMATOLOGY MCH 32.4 pg 27.0 - 02/ 31.0 /2014 [facility] HEMATOLOGY MCV 93.5 fL 80.0 - 02 98.0 /2014 [facility] HEMATOLOGY MCHC 34.6 g/dL 32.0 - 02/ 36.0 /2014 [facility] HEMATOLOGY Hct 33.6 % 36.0 - / 48.0 /2014 [facility] HEMATOLOGY Hgb 11.6 g/dL 12.0 - 02 16.0 /2014 [facility] HEMATOLOGY RBC 3.60 M/CMM 4.20 - 02 5.40 /2014 [facility] HEMATOLOGY WBC 4.6 K/CMM 3.7 - 10.4 11/26 [facility] HEMATOLOGY MPV 8.3 fL 7.4 - 10.4 11/[address] [place] [address] HEMATOLOGY Platelet 149 K/CMM 133 - [address] HEMATOLOGY Segs 62.3 % 45.0 - 02 [facility] 75.0 [facility] HEMATOLOGY Lymphocytes # 1.2 K/CMM 1.0 - 5.5 02 [facility] HEMATOLOGY Monocytes # 0.4 K/CMM 0.0 - 0.[address] [place] [address] HEMATOLOGY Eosinophils 3.0 % 0.0 - 4.0 02 [facility] HEMATOLOGY Lymphocytes 26.2 % 20.0 - 11/26 [facility] 40.0 [facility] HEMATOLOGY Segs-Bands # 2.9 K/CMM 1.5 - 8.1 11/[address] HEMATOLOGY Basophils 0.5 % 0.0 - 1.0 02/ [facility] HEMATOLOGY Monocytes 8.0 % 2.0 - 12.0 11/26 [facility] [address] [place] [address] HEMATOLOGY Eosinophils # 0.1 K/CMM 0.0 - 0.5 11/[address] CHEM PANEL Phosphorus 3.1 mg/dL 2.5 - 4.5 11/[address] CHEM PANEL eGFR 34 02 2Result Comment: The eGFR is calculated using the CKD-EPI formula. In most young, healthy individuals the eGFR will be >90 mL/ min/1.73m2. The eGFR declines with age. An eGFR of 60-89 may be normal in [facility] mL/min/1.7 /2014 some populations, particularly the elderly, for whom the CKD-EPI formula has not been extensively validated. Use of the eGFR is not recommended in the following populations: [address] Individuals with unstable creatinine concentrations, including [...] CO2 25 meq/L 24 - 32 11/25 [facility] CHEM PANEL AGAP 12.8 meq/L 10.0 - 11/25 20.0 [facility] CHEM PANEL Calcium Lvl 8.7 mg/dL 8.5 - 10.5 11/25 2014 [facility] CHEM PANEL Chloride Lvl 104 meq/L 95 - 109 11/25 2014 [facility] CHEM PANEL BUN 23 mg/dL 7 - 22 11/25 [facility] CHEM PANEL Sodium Lvl 138 meq/L 135 - 145 11/25 [facility] CHEM PANEL Glucose Lvl 82 mg/dL 70 - 99 11/25 5Interpretive Data: Adult reference range values reflect the clinical guidelines of the [place] [employer]. [facility] CHEM PANEL Creatinine 1.5 mg/dL 0.5 - 1.4 11/25 [facility] CHEM PANEL Potassium Lvl 3.8 meq/L 3.5 - 5.1 11/25 [facility] CHEM PANEL Magnesium Lvl 2.7 mg/dL 1.8 - 2.4 11/25 [facility] HEMATOLOGY Segs 63.1 % 45.0 - 11/25 75.0 [facility] HEMATOLOGY Lymphocytes 27.1 % 20.0 - 02 40.0 [facility] HEMATOLOGY Monocytes 7.2 % 2.0 - 12.0 11/25 2014 [facility] HEMATOLOGY Eosinophils # 0.1 K/CMM 0.0 - 0.5 11/25 [facility] HEMATOLOGY Eosinophils 2.2 % 0.0 - 4.0 11/25 [facility] HEMATOLOGY Basophils 0.4 % 0.0 - 1.0 11/25 [facility] HEMATOLOGY Segs-Bands # 3.1 K/CMM 1.5 - 8.1 11/25 [facility] HEMATOLOGY Monocytes # 0.3 K/CMM 0.0 - 0.8 11/25 [facility] HEMATOLOGY Lymphocytes # 1.3 K/CMM 1.0 - 5.5 11/25 [facility] HEMATOLOGY MPV 8.5 fL 7.4 - 10.4 11/25 [facility] HEMATOLOGY MCH 31.6 pg 27.0 - 11/25 31.0 [facility] HEMATOLOGY MCV 93.4 fL 80.0 - 11/25 [facility] 98.0 /2014 [facility] HEMATOLOGY Hct 33.2 % 36.0 - 11/25 [facility] 48.0 /2014 [facility] HEMATOLOGY Platelet 151 K/CMM 133 - 450 11/25 [facility] HEMATOLOGY RDW 13.1 % 11.5 - 11/25 14.5 [facility] HEMATOLOGY MCHC 33.8 g/dL 32.0 - 11/25 36.0 /2014 [facility] HEMATOLOGY Hgb 11.2 g/dL 12.0 - 02 16.0 [facility] HEMATOLOGY RBC 3.56 M/CMM 4.20 - 11/25 5.40 /2014 [facility] HEMATOLOGY WBC 4.9 K/CMM 3.7 - 10.4 11/25 [facility] HEMATOLOGY INR 1.14 0.85 - 11/25 7Interpretive Data: RECOMMENDED RANGES FOR PROTIME INR: [facility] 1.17 2.0-3.0 for most medical and surgical thromboembolic states. Medical 2.5-3.5 for artificial heart valves and recurrent embolism. Center INR SHOULD BE USED ONLY FOR PATIENTS ON STABLE ANTICOAGULANT THERAPY. HEMATOLOGY PTT 28.5 s 22.9 - 02 9Interpretive [facility] 35.8 /2014 Data: Heparin [facility] Range: 57 - 92 Seconds HEMATOLOGY PT 14.7 s 12.0 - 02/03 [facility] 14.7 /2014 [facility] THYROID TSH 3.190 0.360 - 11/25 [facility] PANEL uIU/mL 3.740 /2014 [facility] Neck wo Neck wo EXAM: MRI BRAIN 11/24 - [facility] contrast contrast MRA /2014 - Medical MRA EXAM: MRA BRAIN This report was dictated by a Assistant Librarian/ Fellow. I have personally reviewed the images [...] caliber. No aneurysm is identified. Right type PLANNER INTERN is present, a normal variant. There is [...] Brain wo EXAM: MRI BRAIN 11/24 - [facility] contrast contrast MRA /2014 - Medical MRA EXAM: MRA BRAIN This report was dictated by a Assistant Librarian/ Fellow. I have personally reviewed the images [...] caliber. No aneurysm is identified. Right type PLANNER INTERN is present, a normal variant. There is [...] Brain wo EXAM: MRI BRAIN 11/24 - [facility] contrast contrast MRI /2014 - Medical MRI EXAM: MRA BRAIN This report was dictated by a Assistant Librarian/ Fellow. I have personally reviewed the images [...] caliber. No aneurysm is identified. Right type PLANNER INTERN is present, a normal variant. There is [...] AND UA <=1.0 0.1 - 1.0 11/24 [facility] Urobilinogen mg/dL /[address] [place] [address] URINE AND UA Renal Epi 7 /LPF <=0 /LPF 11/[address] URINE AND UA Sq Epi Moderate Few /LPF 11/24 [facility] /LPF /[address] [place] [address] URINE AND UA WBC 2 /HPF 0 - 5 11/[address] URINE AND UA Nitrite Negative Negative 11/[address] (11/24/14 2:06 AM) [place] URINE AND UA Leuk Est Negative Negative 11/[address] (11/24/14 2:06 AM) [place] URINE AND UA Blood Negative Negative 11/[address] (11/24/14 2:06 AM) [place] URINE AND UA Protein Negative Negative 11/24 [facility] mg/dL mg/dL /2014 [facility] URINE AND UA pH 6.5 5.0 - 8.0 11/[address] URINE AND UA Glucose Negative Negative 11/24 [facility] mg/dL mg/dL /[address] [place] [address] URINE AND UA Bili Negative Negative 11/24 [address] [place] (11/24/14 2:06 AM) URINE AND UA Ketones Negative Negative 11/24 [facility] mg/dL mg/dL /2014 [facility] URINE AND UA Spec Grav 1.009 <=1.030 11/24 [facility] URINE AND UA Turbidity Clear Clear 11/24 [facility] (11/24/14 2:06 AM) [place] URINE AND UA Color Yellow Yellow 11/24 [facility] *NA* [place] (11/24/14 2:06 AM) CHEM PANEL A/G Ratio 1.2 0.7 - 1.6 11/24 [facility] CHEM PANEL Globulin 3.2 g/dL 2.0 - 4.0 11/24 [facility] CHEM PANEL B/C Ratio 22 6 - 25 11/24 [facility]2014 [facility] CHEM PANEL AGAP 9.8 meq/L 10.0 - 11/24 [facility] 20.0 [facility] CHEM PANEL eGFR 29 11/24 3Result Comment: The eGFR is calculated using the CKD-EPI formula. In most young, healthy individuals the eGFR will be >90 mL/ min/1.73m2. The eGFR declines with age. An eGFR of 60-89 may be normal in [facility] mL/min/1.7 some populations, particularly the elderly, for whom the CKD-EPI formula has not been extensively validated. Use of the eGFR is not recommended in the following populations: [address] Individuals with unstable creatinine concentrations, including [...] values reflect the clinical guidelines of the [place] [employer]. [facility] CHEM PANEL Calcium Lvl 8.7 mg/dL 8.5 - 10.5 11/24 [facility] CHEM PANEL ALT 29 unit/L 0 - 65 11/24 [facility] CHEM PANEL AST 17 unit/L 0 - 37 11/[address] CHEM PANEL Albumin Lvl 3.7 g/dL 3.5 - 5.0 11/[address] CHEM PANEL Total Protein 6.9 g/dL 6.4 - 8.4 11/[address] CHEM PANEL CO2 28 meq/L 24 - 32 11/[address] CHEM PANEL Chloride Lvl 103 meq/L 95 - 109 11/[address] CHEM PANEL Potassium Lvl 3.8 meq/L 3.5 - 5.1 11/[address] CHEM PANEL Sodium Lvl 137 meq/L 135 - 145 11/[address] CHEM PANEL Creatinine 1.7 mg/dL 0.5 - 1.4 11/[address] CHEM PANEL BUN 37 mg/dL 7 - 22 11/[address] CHEM PANEL Alk Phos 37 unit/L 39 - 136 11/[address] CHEM PANEL Bili Total 0.4 mg/dL 0.2 - 1.3 11/[address] HEMATOLOGY Monocytes # 0.4 K/CMM 0.0 - 0.8 11/[address] HEMATOLOGY Lymphocytes # 1.1 K/CMM 1.0 - 5.5 11/[address] HEMATOLOGY Eosinophils # 0.1 K/CMM 0.0 - 0.5 11/[address] HEMATOLOGY Segs 70.9 % 45.0 - 02 [facility] 75.0 /2014 [facility] HEMATOLOGY Monocytes 6.7 % 2.0 - 12.0 11/[address] HEMATOLOGY Lymphocytes 19.7 % 20.0 - 02/ [facility] 40.0 /2014 [facility] HEMATOLOGY Eosinophils 2.3 % 0.0 - 4.[address] HEMATOLOGY Segs-Bands # 4.0 K/CMM 1.5 - 8.1 11/[address] HEMATOLOGY Basophils 0.4 % 0.0 - 1.0 11/[address] HEMATOLOGY PTT 28.2 s 22.9 - 02/ 10[facility]pretiv [facility] 35.8 /2015 e Data: [facility] Therapeutic Range: 57 - 92 Seconds HEMATOLOGY PT 13.9 s 12.0 - 11/24 [facility] 14.7 /2014 [facility] HEMATOLOGY INR 1.07 0.85 - 11/24 8Interpretive Data: RECOMMENDED RANGES FOR PROTIME INR: [facility] 1.17 2.0-3.0 for most medical and surgical thromboembolic states. Medical 2.5-3.5 for artificial heart valves and recurrent embolism. Center INR SHOULD BE USED ONLY FOR PATIENTS ON STABLE ANTICOAGULANT THERAPY. HEMATOLOGY MPV 8.8 fL 7.4 - 10.4 11/24 [facility] HEMATOLOGY WBC 5.7 K/CMM 3.7 - 10.4 11/24 [facility] HEMATOLOGY MCV 94.9 fL 80.0 - 11/24 [facility] 98.0 [facility] HEMATOLOGY RBC 3.73 M/CMM 4.20 - 11/24 [facility] 5.40 [facility] HEMATOLOGY RDW 13.3 % 11.5 - 11/24 [facility] 14.5 /2014 [facility] HEMATOLOGY Hgb 12.1 g/dL 12.0 - 11/24 [facility] 16.0 [facility] HEMATOLOGY Hct 35.3 % 36.0 - 11/24 [facility] 48.0 [facility] HEMATOLOGY Platelet 158 K/CMM 133 - 450 11/24 [facility] HEMATOLOGY MCHC 34.2 g/dL 32.0 - 11/24 [facility] 36.0 [facility] HEMATOLOGY MCH 32.5 pg 27.0 - 11/24 [facility] 31.0 [facility] LIPIDS CHD Risk 2.81 3.90 - 11/24 [facility] 5.80 [facility] LIPIDS VLDL 26 11/24 [facility] LIPIDS LDL 59 mg/dL <=99 mg/dL 11/24 [facility] (Calculated) [facility] LIPIDS Trig 128 mg/dL <=149 11/24 [facility] mg/dL [facility] LIPIDS HDL 47 mg/dL >=61 mg/dL 11/24 [facility] LIPIDS Chol 132 mg/dL <=199 11/24 [facility] mg/dL [facility] SPECIAL Hgb A1C 5.6 % <=5.6 % 11/24 [facility] CHEMISTRY [facility] Vital Signs Vital Sign Value Date Comments Source Respitory Rate 16 11/26/2014 [facility] Systolic (mm Hg) 172 11/26/2014 [facility] Diastolic (mm Hg) 79 11/26/2014 [facility] Heart Rate 57 11/26/2014 [facility] Temperature Oral (F) 97.5 F 11/26/2014 [facility] Temperature Oral (F) 97.5 F 11/26/2014 [facility] Heart Rate 69 11/26/2014 [facility] Diastolic (mm Hg) 79 11/26/2014 [facility] Respitory Rate 18 11/26/2014 [facility] Systolic (mm Hg) 166 11/26/2014 [facility] Respitory Rate 16 11/26/2014 [facility] Systolic (mm Hg) 157 11/26/2014 [facility] Diastolic (mm Hg) 66 11/26/2014 [facility] Heart Rate 65 11/24/2014 [facility] Weight 114.318 11/24/2014 [facility] BMI Calculated 43.26 11/24/2014 [facility] Height 162.56 cm 11/24/2014 [facility] Encounters Location Location Encounter Encounter Reason Attending ADM DC Status Source Details Type Number For Provider Date Date Visit [facility] [id number] Richardrosalba Salmon 11/24 11/26 [facility] /2014 [facility] PT/INR 3.0 [id number] 12/19 12/19 [facility] [id number]- /2014 [facility] [id number] [facility] [place] PT/INR 3.0 [id number] 12/19 12/19 [facility] [id number]- /2014 [facility] [id number] [facility] [place] PT/INR 3.0 [id number] 12/19 12/19 [facility] [id number]- /2014 [facility] [id number] [facility] [place] PT/INR 3.0 [id number] 12/19 12/19 [facility] [id number]- /2014 [facility] [id number] [facility] [place] Unknown [id number] 12/19 12/19 [facility] [id number]- /2014 [facility] [id number] y Consult [place] Unknown [id number] 12/19 12/19 [facility] [id number]- /2014 [facility] [id number] y [facility] [place] Unknown [id number] 12/19 12/19 [facility] [id number]- /2014 [facility] [id number] y [facility] [place] Unknown [id number] 12/19 12/19 [facility] [id number]- /2014 [facility] [id number] [facility] [place] PT/INR 3.0 [id number] 12/19 12/19 [facility] [id number]- /2014 [facility] [id number] [facility] [place] PT/INR 3.0 [id number] 12/19 12/19 [facility] [id number]- /2014 [facility] [id number] [facility] [place] Unknown [id number] 12/19 12/19 [facility] [id number]- /2014 [facility] [id number] y [facility] [place] Unknown [id number] 12/19 12/19 [facility] [id number]- /2014 [facility] [id number] y [facility] [place] [id number] 03/23 03/23 [facility] [id number]- /2014 [facility] [id number] [facility] [place] [id number] 03/23 03/23 [facility] [id number]- /2014 [facility] [id number] y Consult [place] Unknown [id number] 03/23 03/23 [facility] [id number]- /2014 [facility] [id number] y [facility] [place] Unknown [id number] 03/23 03/23 [facility] [id number]- /2014 [facility] [id number] y [facility] [place] Unknown [id number] 03/23 03/23 [facility] [id number]- /2014 [facility] [id number] y Consult [place] [id number] 03/23 03/23 [facility] [id number]- /2014 [facility] [id number] [facility] [place] [id number] 08/12 08/12 [facility] [id number]- /2014 [facility] [id number] y Consult [place] Unknown [id number] 08/12 08/12 [facility] [id number]- /2014 [facility] [id number] y Consult [place] Unknown [id number] 08/12 08/12 [facility] [id number]- /2014 [facility] [id number] [facility] [place] [id number] 08/12 08/12 [facility] [id number]- /2014 [facility] [id number] y Consult [place] Unknown [id number] 08/12 08/12 [facility] [id number]- /2014 [facility] [id number] y Consult [place] Unknown [id number] 08/12 08/12 [facility] [id number]- /2014 [facility] [id number] y Consult [place] Unknown [id number] 01/28 01/28 [facility] [id number]- /2015 [facility] [id number] y [facility] [place] Unknown [id number] 01/28 01/28 [facility] [id number]- /2015 [facility] [id number] [facility] [place] [id number] 01/28 01/28 [facility] [id number]- /2015 [facility] [id number] [facility] [place] [id number] 01/28 01/28 [facility] [id number]- /2015 [facility] [id number] [facility] [place] Unknown [id number] 01/28 01/28 [facility] [id number]-tzm1- /2015 [facility] [id number] [facility] [place] [id number] 01/28 01/28 [facility] [id number]- /2015 [facility] [id number] y [facility] [place] Unknown [id number] 03/11 03/11 [facility] [id number]-[id number]- /2015 [facility] [id number] y [facility] [place] Unknown [id number] 03/11 03/11 [facility] [id number]- /2015 [facility] [id number] y Consult [place] Unknown [id number] 03/11 03/11 [facility] [id number]- /2015 [facility] [id number] y Consult [place] Unknown [id number] 03/11 03/11 [facility] [id number]- /2015 [facility] [id number] y Consult [place] Unknown [id number] 03/11 03/11 [facility] [id number]- /2015 [facility] [id number] y [facility] [place] Unknown [id number] 04/15 04/15 [facility] [id number]- /2015 [facility] [id number] y Consult [place] Unknown [id number] 04/15 04/15 [facility] [id number]-18z2- /2015 [facility] [id number] y Consult [place] Unknown [id number] 04/15 04/15 [facility] [id number]- /2015 [facility] [id number] y Consult [place] Unknown [id number] 04/15 04/15 [facility] [id number]- /2015 [facility] [id number] [facility] [place] Unknown [id number] 04/15 04/15 [facility] [id number]- /2015 [facility] [id number] y Consult [place] Unknown [id number] 04/15 04/15 [facility] [id number]- /2015 [facility] [id number] y Consult [place] Unknown [id number] 04/15 04/15 [facility] [id number]- /2015 [facility] [id number] y Consult [place] Unknown [id number] 04/15 04/15 [facility] [id number]- /2015 [facility] [id number] [facility] [place] Other [id number] 09/09 09/09 [facility] [id number]- /2015 [facility] [id number] [facility] [place] Other [id number] 09/09 09/09 [facility] [id number]- /2015 [facility] [id number] y Consult [place] Unknown [id number] 12/20 12/20 [facility] [id number]- /2016 [facility] [id number] y Consult Procedures Procedure Code Date Perfomer Comments Source Knee replacement [id number] [facility]
--- OUTSIDE RECORDS SUMMARY | 2018-11-21 14:59 | XMS REPORT ---
[...] Date End Date Status Dosage Edarbyclor [facility] [address] 40-25 MG Orally January 17, Active 1 tablet -30 Once a day 2016 Results No Known Results Summary Purpose [employer]ClinicalWorks Submission
--- OUTSIDE RECORDS SUMMARY | 2018-11-21 14:59 | XMS REPORT ---
:1940 Author Organization [employer] Care Team Providers Name Role Phone Melissa [...]
--- OUTSIDE RECORDS SUMMARY | 2018-11-21 15:00 | XMS REPORT ---
:1940 Author Organization [employer] Care Team Providers Name Role Phone Melissa Salmon Provider Role Unavailable Encounters Encounter Location Date Unknown [place] Personnel Psychologist Aug 12, 2015 Unknown [place] Person[employer] Psychologist January 29, 2016 Unknown [place] Person[employer] Psychologist Dec 19, 2014 PT/INR 3.0 [place] [employer] Psychologist Dec 19, 2014 Unknown [place] Person[employer] Psychologist March 23, 2015 Problems Problem Type Condition [...]
--- OUTSIDE RECORDS SUMMARY | 2018-11-21 15:00 | XMS REPORT ---
:1939 Author Organization [employer] Care Team Providers Name Role Phone Melissa Salmon Provider Role Unavailable Encounters Encounter Location Date Unknown [place] Melter Supervisor Aug 12, 2015 Unknown [place] Mel[employer] Supervisor January 29, 2016 Unknown [place] Mel[employer] Supervisor March 11, 2016 Unknown [place] Mel[employer] Supervisor Dec 19, 2014 PT/INR 3.0 [place] [employer] Supervisor Dec 19, 2014 Unknown [place] [employer] Supervisor March 23, 2015 Problems Problem Type Condition [...]
--- OUTSIDE RECORDS SUMMARY | 2018-11-21 15:00 | XMS REPORT ---
:1940 [facility] Team Providers Name Role Phone Bennett Salmon Provider Role Unavailable Encounters Encounter Location Date Unknown [place] Har[employer] Worker Fruit Aug 12, 2015 Unknown [place] [employer] Fruit January 29, 2016 Unknown [place] [employer] March 11, 2016 Unknown [place] [employer] Fruit April 15, 2016 Unknown [place] [employer] Dec 19, 2014 PT/INR 3.0 [place] [employer] Dec 19, 2014 Unknown [place] [employer] March 23, 2015 Unknown [place] [employer] April 15, 2016 Problems Problem Type Condition [...] Date End Date Status Dosage Cipro MEDISPAN [address] 500 MG Orally April 15 1 tablet [...]
--- OUTSIDE RECORDS SUMMARY | 2018-11-21 15:00 | XMS REPORT ---
:1939 [facility] Team Providers Name Role Phone Melissa Salmon Provider Role Unavailable Encounters Encounter Location Date Unknown [place] Laundry Equipment Operator Aug 12, 2015 Unknown [place] La[employer] Equipment Operator January 29, 2016 Unknown [place] La[employer] Equipment Operator March 11, 2016 Unknown [place] La[employer] Equipment Operator April 15, 2016 Unknown [place] La[employer] Equipment Operator Dec 19, 2014 PT/INR 3.0 [place] [employer] Operator Dec 19, 2014 Unknown [place] La[employer] Equipment Operator March 23, 2015 Unknown [place] La[employer] Equipment Operator April 15, 2016 Other [place] Laundry Equipment Operator Sep 09, 2016 Problems Problem Type Condition [...] End Status Dosage Date Date Doxazosin MEDISPAN [id number] 4 Inactive TAKE ONE Mesylate TABLET BY [...]
--- OUTSIDE RECORDS SUMMARY | 2018-11-21 15:00 | XMS REPORT ---
:1939 [facility] Team Providers Name Role Phone Bennett Salmon Provider Role Unavailable Encounters Encounter Location Date Unknown [place] [employer]her Mechanic Aug 12, 2015 Unknown [place] [employer] Mechanic January 29, 2016 Unknown [place] [employer]her Mechanic March 11, 2016 Unknown [place] [employer]her Mechanic April 15, 2016 Unknown [place] [employer] Washer Mechanic Dec 19, 2014 PT/INR 3.0 [place] [employer] Mechanic Dec 19, 2014 Unknown [place] [employer] Washer Mechanic March 23, 2015 Unknown [place] [employer]her Mechanic April 15, 2016 Problems Problem Type Condition [...] Date End Date Status Dosage Cipro MEDISPAN [address] 500 MG Orally April 15 1 tablet [...]
--- OUTSIDE RECORDS SUMMARY | 2018-11-21 15:00 | XMS REPORT ---
:1939 [facility] Team Providers Name Role Phone Melissa Salmon Provider Role Unavailable Encounters Encounter Location Date Unknown [place] Public Administration Professor Aug 12, 2015 Unknown [place] Public Administration Professor January 29, 2016 Unknown [place] Public [employer] Professor March 11, 2016 Unknown [place] Public [employer] Professor April 15, 2016 Unknown [place] Public Administration Professor Dec 19, 2014 PT/INR 3.0 [place] Public Administration Professor Dec 19, 2014 Unknown [place] Public [employer] Professor March 23, 2015 Unknown [place] [employer] Professor Dec 20, 2016 Unknown [place] [employer] Professor April 15, 2016 Other [place] Public Administration Professor Sep 09, 2016 Problems Problem Type Condition [...] End Status Dosage Date Date Tikosyn MEDISPAN [id number] 500 Inactive TAKE ONE CAPSULE BY MOUTH TWICE A DAY Dofetilide MEDISPAN [address]-19 500 MCG Orally Dec 20, Active 1 [...]
[2018-11-21] MEDS ORDERED: IPRATROPIUM BROM 0.5MG/2.5ML ONE (16:47)
[2018-11-21] MEDS ORDERED: METHYLPREDNISOLONE 125 MG INJ ONE (16:47)
[2018-11-21] MEDS ORDERED: LEVALBUTEROL 1.25 MG/3 ML NEB ONE (16:47)
[2018-11-21] MEDS ORDERED: FUROSEMIDE 40 MG/4 ML VIAL ONE (16:47)
[2018-11-21] MEDS ORDERED: Levofloxacin500mg IV 500 MG/100 ML BAG IV ONE (16:48)
[2018-11-21 16:53] LABS: Absolute Monocytes 0.6 K/uL (0.1-1.3); Absolute Neutrophil 4.9 K/uL (1.8-8.0); Basophils % 0.2 % (0-1.3); Eosinophils % 2.1 % (0-4.4); Lymphocytes % 14.9 % (15.3-44.8); MPV 7.6 fL (7.6-11.3); Monocytes % 8.4 % (3.3-12.3); RBC Red Blood Cell Count 4.39 M/uL (3.86-4.86)
[2018-11-21 16:57] LABS: Protime INR 1.21
[2018-11-21 17:02] LABS: Albumin 3.5 g/dL (3.4-5.0); Bilirubin Direct 0.1 mg/dL (0-0.2); Bilirubin Total 0.3 mg/dL (0.2-1.0); CKMB Creatine Kinase MB 2.4 ng/mL (0.3-3.6); Potassium 3.2 mmol/L (3.5-5.1); Protein, Total 6.9 g/dL (6.4-8.2); Troponin (Emerg Dept Use Only) 0.05 ng/mL (0.0-0.045)
--- NOTE | 2018-11-21 17:48 | RAD REPORT ---
EXAM DESCRIPTION: [place] Single View11/21/2018 5:42 pm CLINICAL HISTORY: Cough COMPARISON: 2008 FINDINGS: The lungs appear clear of acute infiltrate. The heart is mildly enlarged IMPRESSION: No acute abnormalities displayed
[2018-11-21 18:09] LABS: Urine Blood TRACE (NEG); Urine Glucose NEGATIVE (NEG); Urine Protein NEGATIVE (NEG); Urine Specific Gravity 1.015 (1.005-1.030)
--- NOTE | 2018-11-21 18:15 | ER ---
Nurse's Notes [facility] Name: Kristal You Age: 78 yrs Sex: Female : 1940 Arrival Date: 11/21/2018 Time: 14:57 Bed 24 Private MD: Diagnosis: Persistent atrial fibrillation;Tachycardia, unspecified Presentation: 11/21 14:57 Presenting complaint: EMS states: "SHE'S GOT HISTORY OF A-FIB. SHE COMPLAINED OF SOB rv AFTER FIXING DINNER. SHE IS HYPERTENSIVE WHEN WE CHECKED. HEART RATE IS AT 120-130s, WENT DOWN TO 90-110s WHEN SHE STARTED TALKING.". Transition of care: patient was not received from another setting of care. Onset of symptoms was November 21, 2018 at 14:30. Risk Assessment: Do you want to hurt yourself or someone else? Patient reports no desire to harm self or others. Initial Sepsis Screen: Does the patient meet any 2 criteria? No. Patient's initial sepsis screen is negative. Does the patient have a suspected source of infection? No. Patient's initial sepsis screen is negative. Care prior to arrival: None. 14:57 Method Of Arrival: EMS: [facility] rv 14:57 Acuity: LUCINA 3 rv Triage Assessment: 15:08 General: Appears in no apparent distress. uncomfortable, Behavior is calm, cooperative. rv Pain: Complains of pain in back. EENT: No signs and/or symptoms were reported regarding the EENT system. Neuro: Level of Consciousness is awake, alert, obeys commands, Oriented to person, place, time, situation. Cardiovascular: Capillary refill < 3 seconds Rhythm is atrial fibrillation. Respiratory: Airway is patent. GI: No signs and/or symptoms were reported involving the gastrointestinal system. : No signs and/or symptoms were reported regarding the genitourinary system. Derm: Skin is intact. Musculoskeletal: No signs and/or symptoms reported regarding the musculoskeletal system. Historical: - Allergies: 15:07 namutol; rv - Home Meds: 15:07 aspirin 81 mg Oral chew 1 tab once daily [Active]; bupropion HCl 150 mg Oral TbER 1 tab rv 3 times daily [Active]; doxazosin 4 mg Oral tab 1 tab once daily [Active]; Eliquis 5 mg Oral tab 1 tab 2 times per day [Active]; levothyroxine 100 mcg tab once daily [Active]; Vitamin D3 Oral 2 tab daily [Active]; Edarbyclor 40-25 mg oral tab 1 tab [Active]; hydralazine 10 mg Oral tab [Active]; Vascepa 1 gram oral cap [Active]; liothyronine 5 mcg oral tab [Active]; omeprazole 20 mg Oral cpDR [Active]; atenolol 50 mg Oral tab [Active]; dofetilide oral 500MCG oral [Active]; pravastatin 40 mg oral tab [Active]; tramadol 50 mg Oral tab 1 tab [Active]; montelukast 10 mg oral tab 1 tab [Active]; clonidine HCl 0.1 mg Oral tab [Active]; - PMHx: 15:07 Asthma; Atrial Fib; CVA; Hypertension; Hypothyroidism; UTI; rv - PSHx: 15:07 Appendectomy; Cholecystectomy; Hysterectomy; Bladder suspension; RECTOCELE; Knee rv surgery; SHOULDER SURGERY; - Immunization history:: Adult Immunizations Adult Immunizations up to date. - Social history:: Smoking status: Smoking status: unknown Patient/guardian denies using alcohol, street drugs, The patient lives with family. - Ebola Screening: : Patient denies travel to an Ebola-affected area in the 21 days before illness onset Patient negative for fever greater than or equal to 101.5 degrees Fahrenheit, and additional compatible Ebola Virus Disease symptoms Patient denies exposure to infectious person Patient denies travel to an Ebola-affected area in the 21 days before illness onset. - Family history:: not pertinent. Screenin:10 Abuse screen: Denies threats or abuse. Nutritional screening: No deficits noted. tw2 Tuberculosis screening: No symptoms or risk factors identified. Fall Risk None identified. Assessment: 16:00 Reassessment: Patient appears in no apparent distress at this time. No changes from tw2 previously documented assessment. Patient and/or family updated on plan of care and expected duration. Pain level reassessed. Patient is alert, oriented x 3, equal unlabored respirations, skin warm/dry/pink. 17:11 Reassessment: Patient appears in no apparent distress at this time. No changes from tw2 previously documented assessment. Patient and/or family updated on plan of care and expected duration. Pain level reassessed. Patient is alert, oriented x 3, equal unlabored respirations, skin warm/dry/pink. 18:21 Reassessment: Patient appears in no apparent distress at this time. No changes from tw2 previously documented assessment. Patient and/or family updated on plan of care and expected duration. Pain level reassessed. Patient is alert, oriented x 3, equal unlabored respirations, skin warm/dry/pink. 19:15 Reassessment: Patient appears in no apparent distress at this time. Patient and/or cc3 family updated on plan of care and expected duration. Pain level reassessed. Patient is alert, oriented x 3, equal unlabored respirations, skin warm/dry/pink. Received this female patient from morning shift KARIE Beckett as a case of atrial fibrillation for admission, waiting for bed availability. With IV cannula gauge 20 at the right ACV saline locked. 19:40 Reassessment: Room available at 404, called for report but was told that the nurse who cc3 will receive will just call me back. 20:10 Reassessment: Patient appears in no apparent distress at this time. Patient and/or cc3 family updated on plan of care and expected duration. Pain level reassessed. Patient is alert, oriented x 3, equal unlabored respirations, skin warm/dry/pink. Report called and handed over to KARIE Chapman for continuity of care. 20:20 Reassessment: Patient left ER for admission vitally stable by wheelchair escorted by ED cc3 eugenia Guzman. Vital Signs: 15:03 BP 153 / 77; Pulse 98; Resp 18; Temp 97.8(O); Pulse Ox 95% on R/A; tw2 15:30 BP 143 / 63; Pulse 91; Resp 18 S; Pulse Ox 97% on R/A; rv 16:00 BP 149 / 92; Pulse 95; Resp 17 S; Pulse Ox 97% on R/A; rv 16:30 BP 143 / 96; Pulse 97; Resp 19; Pulse Ox 98% on R/A; rv 17:12 BP 159 / 83; Pulse 94; Resp 17; Pulse Ox 98% on R/A; tw2 18:20 BP 146 / 82; Pulse 72; Resp 17; Pulse Ox 97% on R/A; tw2 18:48 BP 126 / 86; Pulse 95; Resp 17; Pulse Ox 96% on R/A; tw2 19:42 BP 141 / 72; Pulse 105; Resp 20 S; Temp 98.4(O); Pulse Ox 97% on R/A; cc3 ED Course: 14:57 Patient arrived in ED. rv 14:57 Bed in low position. Call light in reach. Side rails up X2. monotype mechanic on. Pulse tw2 ox on. NIBP on. Warm blanket given. 14:59 Triage completed. rv 15:00 Maintain EMS IV. Dressing intact. Good blood return noted. Site clean \\T\\ dry. Gauge \\T\\ tw 2 site: 20 LEFT FA. 15:03 Sophy Apple, KARIE is Primary Nurse. tw2 15:04 Arm band placed on. tw2 15:24 Gary Gonzalez MD is Attending Physician. ma2 15:55 Gary Gonzalez MD is Attending Physician. ma2 16:51 EKG done, by food technology teacher. reviewed by Gary Gonzalez MD. dt2 17:42 XRAY CXR (1 view) In Process Unspecified. EDMS 17:45 IV discontinued, intact, bleeding controlled, No redness/swelling at site. Pressure tw2 dressing applied, to LEFT forearm. 18:13 Judd Gurrola MD is Hospitalizing Provider. ma2 18:39 Missed attempt(s): 22 gauge in right forearm. notified KARIE Gary to try and get iv at this tw2 time, pt is requesting AC NOT be used. Bleeding controlled, band aid applied, catheter tip intact. 18:45 Inserted saline lock: 20 gauge in right forearm, using aseptic technique. ,using tw2 aseptic technique. per KARIE Gary. 19:16 Report given to KARIE Mccormick. tw2 20:10 No provider procedures requiring assistance completed. Patient admitted, IV remains in cc3 place. Administered Medications: 16:33 CANCELLED ( ordered incorrect): AtroVENT Aerosol 0.5 mg Inhalation once; Every 20 min tw2 for a total of 3 treatments x3 16:50 Drug: SOLU-Medrol 125 mg Route: IVP; Site: left forearm; tw2 18:49 Follow up: Response: No adverse reaction tw2 16:50 Drug: Lasix 40 mg Route: IVP; Site: left forearm; tw2 18:49 Follow up: Response: No adverse reaction tw2 16:55 Drug: AtroVENT Aerosol 0.5 mg Route: Inhalation; tw2 16:56 Drug: Xopenex 1.25 mg Route: Inhalation; tw2 16:59 Drug: LevaQUIN 500 mg Volume: 100 ml; Route: IVPB; Infused Over: 60 mins; Site: left tw2 forearm; 17:45 Follow up: Response: Adverse reaction, Physician notified; Adverse reaction, Physician tw2 notified, redness and rash noted, cool compress applied; IV Status: IV infiltrated 18:46 Drug: Metoprolol 5 mg Route: IVP; Site: right forearm; tw2 18:48 Follow up: BP 126 / 86; Pulse 95 bpm; Resp 17 bpm; Pulse Ox 96% RA; Response: No tw2 adverse reaction Output: 16:00 Urine: 500ml (Voided); Total: 500ml. tw2 18:46 Urine: 550ml (Voided); Total: 1050ml. tw2 20:14 Urine: 900ml (Voided); Total: 1950ml. lt1 Outcome: 18:14 Decision to Hospitalize by Provider. ma2 20:10 Admitted to Tele accompanied by tech, via wheelchair, room 404, with chart, Report cc3 called to KARIE Chapman 20:10 Condition: stable 20:10 Instructed on the need for admit, Demonstrated understanding of instructions. 20:21 Patient left the ED. cc3 Signatures: Dispatcher [employer] oSphy Foster RN RN tw2 Gary Gonzalez MD MD maGlo Michaels dt2 Vinicio Villavicencio RN RN rv Cordel, Charlene cc3 Megan Portillo lt1 Corrections: (The following items were deleted from the chart) 15:10 15:03 Pulse 98bpm; Resp 18bpm; Pulse Ox 95% RA; tw2 tw2 19:51 19:30 Reassessment: Patient appears in no apparent distress at this time. Patient cc3 and/or family updated on plan of care and expected duration. Pain level reassessed. Patient is alert, oriented x 3, equal unlabored respirations, skin warm/dry/pink. Received this female patient from morning shift KARIE Beckett as a case of atrial fibrillation for admission, waiting for bed availability. With IV cannula gauge 20 at the right ACV saline locked. cc3
--- NOTE | 2018-11-21 18:15 | EDPHYS ---
Physician Documentation [facility] Name: Kristal You Age: 78 yrs Sex: Female : 1940 Arrival Date: 11/21/2018 Time: 14:57 Bed 24 Private MD: ED Physician Gary Gonzalez HPI: 11/21 16:21 This 78 yrs old Female presents to ER via EMS with complaints of sob. ma2 16:21 The patient has shortness of breath with light activity. Onset: The symptoms/episode ma2 began/occurred gradually, 2 day(s) ago. Duration: The symptoms are continuous. Associated signs and symptoms: Pertinent negatives: productive cough, dizziness, nausea, numbness in extremities. Severity of symptoms: At their worst the symptoms were moderate in the emergency department the symptoms are unchanged. The patient has experienced similar episodes in the past. Historical: - Allergies: 15:07 namutol; rv - Home Meds: 15:07 aspirin 81 mg Oral chew 1 tab once daily [Active]; bupropion HCl 150 mg Oral TbER 1 tab rv 3 times daily [Active]; doxazosin 4 mg Oral tab 1 tab once daily [Active]; Eliquis 5 mg Oral tab 1 tab 2 times per day [Active]; levothyroxine 100 mcg tab once daily [Active]; Vitamin D3 Oral 2 tab daily [Active]; Edarbyclor 40-25 mg oral tab 1 tab [Active]; hydralazine 10 mg Oral tab [Active]; Vascepa 1 gram oral cap [Active]; liothyronine 5 mcg oral tab [Active]; omeprazole 20 mg Oral cpDR [Active]; atenolol 50 mg Oral tab [Active]; dofetilide oral 500MCG oral [Active]; pravastatin 40 mg oral tab [Active]; tramadol 50 mg Oral tab 1 tab [Active]; montelukast 10 mg oral tab 1 tab [Active]; clonidine HCl 0.1 mg Oral tab [Active]; - PMHx: 15:07 Asthma; Atrial Fib; CVA; Hypertension; Hypothyroidism; UTI; rv - PSHx: 15:07 Appendectomy; Cholecystectomy; Hysterectomy; Bladder suspension; RECTOCELE; Knee rv surgery; SHOULDER SURGERY; - Immunization history:: Adult Immunizations Adult Immunizations up to date. - Social history:: Smoking status: Smoking status: unknown Patient/guardian denies using alcohol, street drugs, The patient lives with family. - Ebola Screening: : Patient denies travel to an Ebola-affected area in the 21 days before illness onset Patient negative for fever greater than or equal to 101.5 degrees Fahrenheit, and additional compatible Ebola Virus Disease symptoms Patient denies exposure to infectious person Patient denies travel to an Ebola-affected area in the 21 days before illness onset. - Family history:: not pertinent. ROS: 16:21 Constitutional: Negative for fever, chills, and weight loss. ma2 16:21 Respiratory: Positive for shortness of breath, Negative for cough, hemoptysis. 16:21 All other systems are negative. Exam: 16:21 Constitutional: This is a well developed, well nourished patient who is awake, alert, ma2 and in no acute distress. 16:21 Constitutional: This is a well developed, well nourished patient who is awake, alert, and in no acute distress. Chest/axilla: Normal chest wall appearance and motion. Nontender with no deformity. No lesions are appreciated. Cardiovascular: Regular rate and rhythm with a normal S1 and S2. No gallops, murmurs, or rubs. Normal PMI, no JVD. No pulse deficits. Abdomen/GI: Soft, non-tender, with normal bowel sounds. No distension or tympany. No guarding or rebound. No evidence of tenderness throughout. Neuro: Awake and alert, GCS 15, oriented to person, place, time, and situation. Cranial nerves II-XII grossly intact. Motor strength 5/5 in all extremities. Sensory grossly intact. Cerebellar exam normal. Normal gait. Psych: Awake, alert, with orientation to person, place and time. Behavior, mood, and affect are within normal limits. 16:21 Cardiovascular: Rate: tachycardic, Rhythm: irregular, irregularly irregular. 16:21 Respiratory: moderate respiratory distress is noted, Respirations: Breath sounds: wheezing: that is moderate, Respiratory rate: 22 Vital Signs: 15:03 BP 153 / 77; Pulse 98; Resp 18; Temp 97.8(O); Pulse Ox 95% on R/A; tw2 15:30 BP 143 / 63; Pulse 91; Resp 18 S; Pulse Ox 97% on R/A; rv 16:00 BP 149 / 92; Pulse 95; Resp 17 S; Pulse Ox 97% on R/A; rv 16:30 BP 143 / 96; Pulse 97; Resp 19; Pulse Ox 98% on R/A; rv 17:12 BP 159 / 83; Pulse 94; Resp 17; Pulse Ox 98% on R/A; tw2 18:20 BP 146 / 82; Pulse 72; Resp 17; Pulse Ox 97% on R/A; tw2 18:48 BP 126 / 86; Pulse 95; Resp 17; Pulse Ox 96% on R/A; tw2 19:42 BP 141 / 72; Pulse 105; Resp 20 S; Temp 98.4(O); Pulse Ox 97% on R/A; cc3 MDM: 15:24 Patient medically screened. ma2 16:21 Differential diagnosis: Anemia Anxiety Reaction asthma, Chronic Obstructive Pulmonary ma2 Disease pneumonia. 18:11 Data reviewed: vital signs, nurses notes. Counseling: I had a detailed discussion with ma2 the patient and/or guardian regarding: the historical points, exam findings, and any diagnostic results supporting the discharge/admit diagnosis, the presence of at least one elevated blood pressure reading (>120/80) during this emergency department visit. ED course: discussed with dr. garcia advised for cards consult as inpatient as well . 11/21 16:20 Order name: Blood Culture Adult (2) [facility] 11/21 16:20 Order name: BMP; Complete Time: 17:50 [facility] 11/21 16:20 Order name: CBC with Diff; Complete Time: 17:50 [facility] 11/21 16:20 Order name: Ckmb; Complete Time: 17:50 [facility] 11/21 16:20 Order name: CPK; Complete Time: 17:50 ri11/21 16:20 Order name: D-Dimer; Complete Time: 17:50 ri11/21 16:20 Order name: Hepatic Function; Complete Time: 17:50 ri11/21 16:20 Order name: Lipase; Complete Time: 17:50 [facility] 11/21 16:20 Order name: Magnesium; Complete Time: 17:50 [facility] 11/21 16:20 Order name: NT PRO-BNP; Complete Time: 17:50 [facility] 11/21 16:20 Order name: PT-INR; Complete Time: 17:50 ri11/21 16:20 Order name: Ptt, Activated; Complete Time: 17:50 ri2 11/21 16:20 Order name: Troponin (emerg Dept Use Only); Complete Time: 17:50 ri2 11/21 18:00 Order name: Urine Dipstick--Ancillary (enter results); Complete Time: 18:11 bd 11/21 16:20 Order name: XRAY CXR (1 view); Complete Time: 17:52 ma2 11/21 16:20 Order name: EKG; Complete Time: 16:21 ri2 11/21 18:25 Order name: Basic Metabolic Panel EDNM 11/21 18:25 Order name: Basic Metabolic Panel [facility] 11/21 18:25 Order name: CBC with Automated Diff EDNM 11/21 18:25 Order name: CBC with Automated Diff [facility] 11/21 18:25 Order name: Troponin I [facility] 11/21 18:25 Order name: Troponin I [facility] 11/21 18:25 Order name: Troponin I [facility] 11/21 16:20 Order name: Cardiac monitoring; Complete Time: 16:34 ri2 11/21 16:20 Order name: EKG - Nurse/Tech; Complete Time: 16:34 ri2 11/21 16:20 Order name: IV Saline Lock; Complete Time: 16:35 ri2 11/21 16:20 Order name: Labs collected and sent; Complete Time: 16:35 ri2 11/21 16:20 Order name: O2 Per Protocol; Complete Time: 16:35 ri2 11/21 16:20 Order name: O2 Sat Monitoring; Complete Time: 16:35 ri2 11/21 16:20 Order name: Urine Dipstick-Ancillary (obtain specimen); Complete Time: 16:56 ri2 11/21 18:25 Order name: CONS Physician Consult [facility] 11/21 18:25 Order name: Consistent Carb (ADA) [address] EDNM 11/21 18:25 Order name: EKG Electrocardiogram EDNM 11/21 18:25 Order name: EKG Electrocardiogram EDNM 11/21 18:25 Order name: EKG Electrocardiogram EDNM 11/21 18:25 Order name: EKG Electrocardiogram EDNM Administered Medications: 16:33 CANCELLED ( ordered incorrect): AtroVENT Aerosol 0.5 mg Inhalation once; Every 20 min tw2 for a total of 3 treatments x3 16:50 Drug: SOLU-Medrol 125 mg Route: IVP; Site: left forearm; tw2 18:49 Follow up: Response: No adverse reaction tw2 16:50 Drug: Lasix 40 mg Route: IVP; Site: left forearm; tw2 18:49 Follow up: Response: No adverse reaction tw2 16:55 Drug: AtroVENT Aerosol 0.5 mg Route: Inhalation; tw2 16:56 Drug: Xopenex 1.25 mg Route: Inhalation; tw2 16:59 Drug: LevaQUIN 500 mg Volume: 100 ml; Route: IVPB; Infused Over: 60 mins; Site: left tw2 forearm; 17:45 Follow up: Response: Adverse reaction, Physician notified; Adverse reaction, Physician tw2 notified, redness and rash noted, cool compress applied; IV Status: IV infiltrated 18:46 Drug: Metoprolol 5 mg Route: IVP; Site: right forearm; tw2 18:48 Follow up: BP 126 / 86; Pulse 95 bpm; Resp 17 bpm; Pulse Ox 96% RA; Response: No tw2 adverse reaction Disposition: 11/21/18 18:14 Hospitalization ordered by Judd Garcia for Observation. Preliminary diagnosis are Persistent atrial fibrillation, Tachycardia, unspecified. - Bed requested for Telemetry/MedSurg (observation). - Status is Observation. cc3 - Condition is Stable. - Problem is new. - Symptoms are unchanged. UTI on Admission? No Signatures: Dispatcher [employer] EDNM Annie Martins RN RN Sophy Apple RN RN 2 Gary Gonzalez MD MD [facility] Vinicio Villavicencio RN RN Anny Clay cc3 Corrections: (The following items were deleted from the chart) 16:33 16:20 AtroVENT Aerosol 0.5 mg Inhalation once; Every 20 min for a total of 3 treatments tw2 x3 ordered. ma2 16:47 16:20 [place] ordered. [facility] tw2 19:23 18:14 Hospitalization Ordered by Judd Garcia MD for Observation. Preliminary diagnosis dw is Persistent atrial fibrillation; Tachycardia, unspecified. Bed requested for Telemetry/MedSurg (observation). Status is Observation. Condition is Stable. Problem is new. Symptoms are unchanged. UTI on Admission? No. ma2 20:21 19:23 11/21/2018 18:14 Hospitalization Ordered by Judd Garcia MD for Observation. cc3 Preliminary diagnosis is Persistent atrial fibrillation; Tachycardia, unspecified. Bed requested for Telemetry/MedSurg (observation). Status is Observation. Condition is Stable. Problem is new. Symptoms are unchanged. UTI on Admission? No. dw
[2018-11-21] MEDS ORDERED: ONDANSETRON 4 MG/2 ML VIAL IV PRN (18:17)
[2018-11-21] MEDS ORDERED: METOPROLOL TARTRATE 5 MG/5 ML INJ IV ONE (18:33)
[2018-11-21 21:54] VITALS: BMI 44.6
[2018-11-21 23:30] LABS: Urine Appearance CLEAR; Urine Bilirubin NEGATIVE (NEG); Urine Blood TRACE (NEG); Urine Color YELLOW; Urine Glucose NEGATIVE (NEG); Urine Protein 3+ (NEG); Urine Urobilinogen 0.2 mg/dL (0.2-1.0); Urine pH 6.5 (5.0-7.0)
[2018-11-21 23:45] LABS: Urine Microscopic Reflex ORDER UMIC
[2018-11-22 00:34] LABS: Urine Bacteria <20 /HPF (<20); Urine Culture Reflex Order NOT NEEDED; Urine RBC <5 /HPF (NONE SEEN)
[2018-11-22] MEDS: ACETAMINOPHEN 500 MG TAB PO PRN ×3 (02:30→20:01)
--- NOTE | 2018-11-22 04:27 | HP ---
Date of Admission: 11/21/2018 Chief Complaint: Palpitation. History Of Present Illness: This is a 78-year-old female patient who was doing fine, in her usual [facility] until today. She felt little tired; this was around 11:30 a.m. or so, and subsequently she started to have heart racing feeling associated with some shortness of breath. She contacted my office with this, and she was advised to come to emergency room, and after she was evaluated in ER s he was admitted to the hospital. I saw her this evening. She was in the emergency room. Her daught er was present with her at bedside. The patient was given IV metoprolol in the ER and that actually has helped her overall. She was noted to have atrial fibrillation with rapid ventricular rate when s he first came into emergency room, and that has improved. She is still in atrial fibrillation, but h er heart rate is well controlled. Review of Systems: Cardiovascular: As mentioned above. Respiratory: As mentioned above. All other systems reviewed and negative. Medications: Aspirin 81 mg p.o. daily; atenolol 50 mg p.o. daily; bupropion XL 150 mg p.o. 2 times a day; dofetilide 500 mcg 1 capsule by mouth 2 times a day; doxazosin 4 mg, she takes half a tablet p. o. daily in the evening; Edarbyclor 40/25 mg 1 tablet p.o. daily; Eliquis 5 mg p.o. 2 times a day; fl uticasone nasal spray 1 spray each nostril 2 times a day; hydralazine 10 mg, she takes 2 tablets by m outh 3 times a day; levothyroxine 100 mcg p.o. daily; liothyronine 5 mcg, she takes 2 tablets by mout h p.o. daily; montelukast 5 mg p.o. daily; pravastatin 40 mg p.o. daily; tramadol 50 mg p.o. 2 times a day; Vascepa 1 g, she takes 2 capsules by mouth 2 times a day; vitamin D3 500 units p.o. daily. Past Medical History: Significant for hypothyroidism, mixed hyperlipidemia, paroxysmal atrial fibril lation, stroke, mild intermittent asthma, long-term anticoagulation use, impaired fasting glucose, hy pertension, allergic rhinitis. Past Surgical History: Knee replacement, shoulder surgery, fundoplication, rectocele and cystocele r epair, hysterectomy, bladder suspension, appendectomy, carpal tunnel syndrome surgery. Allergies: NO KNOWN ALLERGIES. Family History: Significant for pancreatic cancer, hypertension. Social History: Prior history of smoking, not at present time. Use of alcohol negative. Physical Examination: Vital Signs: When she came into emergency room, initial vital signs, blood pressure 153/77, pulse 98 , respiratory rate 18, temperature 97.8, pulse ox 95%. General: Awake, alert, oriented, not in distress. HEENT: Head atraumatic, normocephalic. Conjunctivae nonerythematous. Sclerae white. Mouth, no thr ush or edema noted. Ears/Nose, no mass, lesion, discharge noted. Neck: Supple. No JVD, lymph nodes, bruit, thyromegaly noted. Lungs: Bilateral good equal air entry. Clear to auscultation. No rhonchi. No rales. Heart: Normal heart sounds, no murmur or gallop. Abdomen: Soft, bowel sounds normal. No guarding, rigidity, tenderness, mass, hepatosplenomegaly, dis tention, or bruit noted. Extremities: No leg edema. No calf tenderness. Skin: No rash, ulcer, cellulitis. Lymphatics: No lymph node enlargement in neck, supraclavicular, infraclavicular region. Neuro: No focal neurological deficit. Chest: Unremarkable. External Genitalia: Deferred. Rectal: Deferred. Laboratory Findings: White count 6.6, hemoglobin 13.9, platelets 181. Chest x-ray, no acute cardiop ulmonary changes. EKG, atrial fibrillation with rapid ventricular rate. Urinalysis, negative. Sodi um 132, potassium 3.2, chloride 97, bicarb 28, BUN 9, creatinine 0.79, glucose 107. Liver function t ests unremarkable. Troponin 0.05, lipase 274. Impression: 1.Atrial fibrillation with rapid ventricular rate, paroxysmal. 2.Hypokalemia. 3.Hypertension. 4.Mixed hyperlipidemia. 5.Hypothyroidism. 6.Allergic rhinitis. 7.Prior history of stroke. 8.Mild intermittent asthma. 9.Impaired fasting glucose. Plan: We will go ahead and admit the patient to hospital for further evaluation and management of th is problem. The patient is appropriate for inpatient, and [facility] will [facility] her to telemetry unit. Consult Cardiology. Home medications will be continue d per order, including her anticoagulation therapy. Replace electrolytes per protocol. We will get an echo with Doppler tomorrow, repeat blood work tomorrow morning, and I will see her tomorrow for fo padminiwmili. Details and plan of treatment discussed with her. YOLY/JAMIL Voice ID: [id number]
[2018-11-22 04:42] LABS: Absolute Lymphocytes (CBC) 0.7 K/uL (0.7-4.9); Absolute Monocytes 0.1 K/uL (0.1-1.3); Absolute Neutrophil 5.9 K/uL (1.8-8.0); Basophils % 0.1 % (0-1.3); Hematocrit 39.7 % (36.0-45.0); Lymphocytes % 10.3 % (15.3-44.8); MPV 8.2 fL (7.6-11.3); Monocytes % 1.5 % (3.3-12.3); RBC Red Blood Cell Count 4.35 M/uL (3.86-4.86)
[2018-11-22 04:58] LABS: Potassium 3.6 mmol/L (3.5-5.1)
[2018-11-22 05:18] LABS: Blood Morphology Comment NOT SEEN (NOT SEEN); Platelet Estimate ADEQ; Urine White Blood Cell Casts OK
--- NOTE | 2018-11-22 05:52 | EKG ---
Test Date: 2018-11-21 Test Time: 16:39:37 Stopper Maker: JEMMA MEASUREMENT RESULTS: Intervals: Rate: 89 CA: QRSD: 90 QT: 380 QTc: 462 [place]: P: CA: QRS: 51 T: 46 INTERPRETIVE STATEMENTS: Atrial fibrillation Abnormal ECG Compared to ECG 11/27/2017 21:05:25 Sinus rhythm no longer present First degree AV block no longer present Electronically Signed On 11-22-18 05:51:31 [employer]YSIC[employer] by Rosalio Carver
[2018-11-22] MEDS ORDERED: LIOTHYRONINE SOD 5 MCG TAB PO SCH (09:00)
[2018-11-22] MEDS ORDERED: ASPIRIN EC 81 MG TAB PO SCH (09:00)
[2018-11-22] MEDS ORDERED: ATENOLOL 25 MG TAB PO SCH (09:00)
[2018-11-22] MEDS ORDERED: DOXAZOSIN 4 MG TAB PO SCH (09:00)
[2018-11-22] MEDS ORDERED: VITAMIN D 5,000 UNIT CAP PO SCH (09:00)
[2018-11-22] MEDS ORDERED: ICOSAPENT ETHYL 1 GM CAP PO SCH (09:00)
[2018-11-22] MEDS ORDERED: LIOTHYRONINE 5 MCG PO SCH (09:00)
[2018-11-22] MEDS ORDERED: APIXABAN 5 MG TABLET PO SCH (09:00)
[2018-11-22] MEDS ORDERED: HYDRALAZINE HCL 10 MG TABLET PO SCH (09:00)
[2018-11-22] MEDS: DOXAZOSIN 4 MG TABLET PO SCH (10:40)
[2018-11-22] MEDS: VITAMIN D3 PO SCH (10:40)
[2018-11-22] MEDS: DOFETILIDE 500 MCG PO SCH ×2 (10:42→20:00)
[2018-11-22] MEDS: ASPIRIN EC 81 MG TABLET PO SCH (10:43)
[2018-11-22] MEDS: ATENOLOL 50 MG TABLET PO SCH (10:44)
[2018-11-22] MEDS: AZILSARTAN MED PO SCH (10:44)
[2018-11-22] MEDS: CHLORTHALIDONE PO SCH (10:44)
[2018-11-22] MEDS: ELIQUIS 5 MG TABLET PO SCH ×2 (10:45→20:00)
[2018-11-22] MEDS: VASCEPA 1 GM PO SCH ×2 (10:47→19:59)
[2018-11-22] MEDS: VIT A PO SCH ×2 (10:48→19:59)
[2018-11-22] MEDS: CUPRIC OXIDE PO SCH ×2 (10:48→19:59)
[2018-11-22] MEDS: ZNOX PO SCH ×2 (10:48→19:59)
[2018-11-22] MEDS: E AC PO SCH ×2 (10:48→19:59)
[2018-11-22] MEDS: [UNRECOGNIZED DRUG - OTHER] PO SCH ×2 (10:48→19:59)
--- NOTE | 2018-11-22 11:41 | CON ---
This is a 78-year-old woman. Chief Complaint: Atrial fibrillation. History Of Present Illness: Mrs. You has paroxysmal atrial fib. She is on Eliquis and dofetilid e for it. She has numerous other problems. She is good about taking her medications and has regular followup with Dr. Dunn. She has been in sinus rhythm for about 12 hours. She went back into sin us rhythm just a few moments after taking a dose of dofetilide. She said she does not miss it. Physical Examination: Vital Signs: 5 feet 2, 243 pounds. General: Appears to be older than her stated age. Alert, oriented, pleasant. Lungs: Clear. Heart: Regular rate and rhythm. No murmur or gallop. Laboratory Exam: Does not reveal any myocardial necrosis. Her creatinine is 1.03. Blood sugar 152 this morning. Hemoglobin 13.7. Impression: The patient is stable enough to be discharged. If she has recurrent atrial fibrillation , recommend hospitalization but referral to an EP for adjustment in doses of dofetilide. Dofetilide is a drug that does not lend itself well to dosage adjustment as an outpatient. I do not think we sh ould do that now. It should be done under the supervision auspices of an psychology department chair. RAQUEL/JAMIL Voice ID: [id number] Report ID: [id number]
--- NOTE | 2018-11-22 12:20 | EKG ---
Test Date: 2018-11-22 Test Time: 07:54:57 [employer] Salesperson: DONTA MEASUREMENT RESULTS: Intervals: Rate: 76 ME: 246 QRSD: 90 QT: 466 QTc: 524 [place]: P: 73 ME: 246 QRS: 42 T: 47 INTERPRETIVE STATEMENTS: Sinus rhythm with 1st degree AV block Prolonged QT Abnormal ECG Compared to ECG 11/22/2018 01:21:11 No significant changes Electronically Signed On 11-22-18 12:19:41 PROGRAM SCHEDULE CLERK by Rosalio Carver
--- NOTE | 2018-11-22 12:21 | EKG ---
Test Date: 2018-11-22 Test Time: 01:21:11 Weathercaster: RT-O MEASUREMENT RESULTS: Intervals: Rate: 68 MT: 238 QRSD: 88 QT: 478 QTc: 508 [place]: P: 82 MT: 238 QRS: 44 T: 67 INTERPRETIVE STATEMENTS: Sinus rhythm with 1st degree AV block Prolonged QT Abnormal ECG Compared to ECG 11/21/2018 16:39:37 First degree AV block now present Prolonged QT interval now present Atrial fibrillation no longer present Electronically Signed On 11-22-18 12:20:29 SALAD BAR CLERK by Rosalio Carver
--- NOTE | 2018-11-22 12:32 | ECHO ---
HEIGHT: 5 ft 2 in WEIGHT: 243 lb 12.8 oz DATE OF STUDY: 11/22/[address]: Judd Gurrola MD 2-DIMENSIONAL: YES M.MODE: YES DOPPLER: YES COLOR FLOW: YES TDS: YES PORTABLE: NO DEFINITY: NO BUBBLE STUDY: NO DIAGNOSIS: ATRIAL FIBRILLATION CARDIAC HISTORY: CATHERIZATION: NO SURGERY: NO PROSTHETIC VALVE: NO PACEMAKER: NO MEASUREMENTS (cm) DIASTOLIC (NORMALS) SYSTOLIC (NORMALS) IVSd 1.2 (0.6-1.2) LA Diam 4.4 (1.9-4.0) LVEF 61% LVIDd 4.3 (3.5-5.7) LVIDs 2.9 (2.0-3.5) %FS 33% LVPWd 1.3 (0.6-1.2) Ao Diam 3.1 (2.0-3.7) 2 DIMENSIONAL ASSESSMENT: RIGHT ATRIUM: NORMAL LEFT ATRIUM: DILATED RIGHT VENTRICLE: NORMAL LEFT VENTRICLE: LEFT VENTRICULAR HYPERTROPHY TRICUSPID VALVE: NORMAL MITRAL VALVE: NORMAL PULMONIC VALVE: NORMAL AORTIC VALVE: NORMAL PERICARDIAL EFFUSION: NONE AORTIC ROOT: NORMAL LEFT VENTRICULAR WALL MOTION: NORMAL DOPPLER/COLOR FLOW: MILD MITRAL AND TRICUPSID REGURGITATION. NORMAL RIGHT VENTRICULAR SYSTOLIC PRESSURE. COMMENTS: NORMAL LEFT VENTRICULAR EJECTION FRACTION. LEFT VENTRICULAR HYPERTROPHY. DILATED LEFT ATRIUM. MILD MITRAL AND TRICUPSID REGURGITATION. NORMAL SINUS RHYTHM. TECHNOLOGIST: Tika ARITA
[2018-11-22] MEDS ORDERED: HYDRALAZINE 10 MG PO SCH (14:00)
[2018-11-22] MEDS: HYDRALAZINE 10 MG PO SCH ×2 (14:30→20:01)
[2018-11-22] MEDS ORDERED: DOXAZOSIN 4 MG TABLET PO SCH (17:00)
[2018-11-22] MEDS ORDERED: PRAVASTATIN 40 MG TABLET PO SCH (21:00)
[2018-11-22] MEDS ORDERED: BUPROPRION HCL S.R. 150MG TAB PO SCH (21:00)
[2018-11-22] MEDS ORDERED: ASPIRIN 81 MG CHEWABLE TABLET PO SCH (21:00)
[2018-11-22] MEDS ORDERED: ATORVASTATIN 10 MG TAB PO SCH (21:00)
[2018-11-22] MEDS ORDERED: BUPROPION 150 MG PO SCH (21:00)
--- NOTE | 2018-11-23 00:32 | PN ---
Date of Progress Note: 11/22/2018 Subjective: The patient was seen this morning for followup. Lying in bed, not in any distress. No new complaints or problems reported. Objective: Vital Signs: Reviewed. HEENT: Examination unremarkable. Lungs: Clear to auscultation. Heart: Sounds normal. Abdomen: Soft. Bowel sounds normal. No guarding, rigidity, tenderness, or distention. Extremities: No leg edema. Laboratory Data: Sodium 132, potassium 3.6, chloride 96, bicarb 27, BUN 14, creatinine 1.03, and glu cose 152. White count 6.7, hemoglobin 13.7, and platelets 182. Impression: 1.Atrial fibrillation, paroxysmal. 2.Hypertension. Plan: We will go ahead and continue current medications. Follow up with fitness director. We will foll ow up on echocardiogram results. This evening, the patient's blood culture was reported positive. S he does not appear septic, but we will have to wait until we see final report on the blood culture re haley, but we hope that it is a skin contaminant. The patient does not have any signs or symptoms of any infection. YOLY/MODL Voice ID: [id number] Report ID: [id number]
[2018-11-23] MEDS ORDERED: LEVOTHYROXINE SOD 0.1 MG TAB PO SCH (06:00)
[2018-11-23] MEDS ORDERED: LEVOTHYROXINE 100 MCG TABLET PO SCH (06:30)
[2018-11-23] MEDS: ATENOLOL 50 MG TABLET PO SCH ×2 (09:00→09:39)
[2018-11-23] MEDS ORDERED: LIOTHYRONINE 5 MCG PO SCH (09:00)
[2018-11-23] MEDS: AZILSARTAN MED PO SCH (09:00)
[2018-11-23] MEDS: CHLORTHALIDONE PO SCH (09:00)
[2018-11-23 09:17] VITALS: BP 148/66; TEMP 97
[2018-11-23 09:22] VITALS: O2SAT 97
[2018-11-23] MEDS: ASPIRIN EC 81 MG TABLET PO SCH (09:36)
[2018-11-23] MEDS: VITAMIN D3 PO SCH (09:36)
[2018-11-23] MEDS: VASCEPA 1 GM PO SCH (09:40)
[2018-11-23] MEDS: [UNRECOGNIZED DRUG - OTHER] PO SCH (09:42)
[2018-11-23] MEDS: CUPRIC OXIDE PO SCH (09:42)
[2018-11-23] MEDS: HYDRALAZINE 10 MG PO SCH (09:42)
[2018-11-23] MEDS: ZNOX PO SCH (09:42)
[2018-11-23] MEDS: VIT A PO SCH (09:42)
[2018-11-23] MEDS: ELIQUIS 5 MG TABLET PO SCH (09:42)
[2018-11-23] MEDS: E AC PO SCH (09:42)
[2018-11-23] MEDS: DOFETILIDE 500 MCG PO SCH (09:43)
[2018-11-23] MEDS: DOXAZOSIN 4 MG TABLET PO SCH (09:50)
--- NOTE | 2018-11-24 01:53 | DS ---
Date of Discharge: 11/23/2018 Disposition: Discharged to go home. Physical Examination: HEENT: Unremarkable. Lungs: Clear to auscultation. Heart: Sounds normal. Abdomen: Soft. Bowel sounds normal. No guarding, rigidity, tenderness, or distention. Extremities: No leg edema. Hospital Course: A 78-year-old female patient who came in to emergency room with complaints of palpi tation. The patient has a history of atrial fibrillation, and she takes antiarrhythmic medication as well as anticoagulant medication. She takes her medications regularly. After she came in to emerge ncy room, she was noted to have atrial fibrillation with rapid ventricular rate. She was given IV me toprolol 1 dose, and I was contacted requesting admission to the hospital. Her home medications were continued. Cardiology consultation was obtained. Her initial troponin was slightly elevated at 0.0 5, but that was collected when she was going through atrial fibrillation with rapid ventricular rate. Subsequent troponin was less than 0.02. White count was 6.6, hemoglobin 13.9, and platelets 181. Chest x-ray; no acute changes. EKG; atrial fibrillation. Potassium was 3.2. Sodium was 132 initial ly. After potassium was corrected, it came back to normal next day. Initial BUN 9, creatinine 0.79. Liver function tests unremarkable. Her initial white count 6.6, hemoglobin 13.9, platelets 181. R epeat white count yesterday 6.7, hemoglobin 13.7, and platelets 182. Echocardiogram shows normal eje ction fraction at 61%, left ventricular hypertrophy, dilated left atrium. Inter Com Servicer, Dr. Carver, saw her from Cardiology Service; and he has recommended that the patient follow up on an elective out patient basis with environmental conservation professor in [place] for consideration of any adjustment of antiarrhythm ic medication. He has not suggested any change in treatment and has released the patient to go home from Cardiology point of view. Medically, she is stable for discharge. This morning, when I saw her , she was complaining of really bad sore throat and some sinus drainage. Yesterday, her blood cultur e 1 bottle was reported positive for gram-positive cocci in cluster. This morning, I called and talk ed to Microbiology Department; and as per my discussion with the insulator technician, it appears that this is probably going to be skin contaminant. We will have definite identification tomorrow. The patient i s not showing any signs and symptoms of sepsis, and she is medically stable for discharge, and we katelynn l go ahead and plan to discharge her to go home today with the following discharge medications/instru ctions. 1.Continue all prior home medications. 2.Take amoxicillin 500 mg p.o. 3 times a day for 1 week. 3.Follow up with Dr. Dunn in 2 weeks as instructed by Dr. Carver. 4.Follow up at my office in 3 weeks. 5.Continue all prior home medications. Discharge Diagnoses: 1.Paroxysmal atrial fibrillation. 2.Acute pharyngitis. 3.Hypokalemia. 4.Hypertension. 5.Mixed hyperlipidemia. 6.Hypothyroidism. 7.Allergic rhinitis. 8.Prior history of stroke. 9.Mild intermittent asthma. 10.Impaired fasting glucose. YOLY/MODL Voice ID: [id number] Report ID: [id number]
== END 2018-11-23 12:37 | disposition home or self-care (01) | DRG 310 ==
LOC: ER 14:54 → ERHOLD 18:17 → OBSVTOIN 19:34 → 4TH 20:07
PROVIDERS: ADMIT Internal Medicine; ATTEND Internal Medicine
DX: I48.0 Paroxysmal atrial fibrillation (principal); J02.9 Acute pharyngitis, unspecified; E87.6 Hypokalemia; E78.2 Mixed hyperlipidemia; E03.9 Hypothyroidism, unspecified; J30.9 Allergic rhinitis, unspecified; Z86.73 Personal history of transient ischemic attack (TIA), and cerebral infarction without residual deficits; J45.20 Mild intermittent asthma, uncomplicated; R73.01 Impaired fasting glucose; I10 Essential (primary) hypertension; Z79.01 Long term (current) use of anticoagulants; Z87.891 Personal history of nicotine dependence
CPT/HCPCS: 36415; 71045; 80048; 80076; 81003; 81015; 82550; 82553; 83690; 83735; 83880; 84484; 85025; 85379; 85610; 85730; 87040; 87205; 93005; 93306; 99285; J1940; J2930

== ENCOUNTER 2019-01-07 07:42 | Day surgery (SDC) | payer OTHER, MEDICARE ==
--- OUTSIDE RECORDS SUMMARY | 2019-01-07 07:49 | XMS REPORT | Continuity of Care Document ---
:1940 Author Organization Interface Problems Problem Status Onset Classification Date Comments Source Date Reported ISCHEMIC STROKE Active [address] LFLT TRANSFER#[id number] Atrial fibrillation Active Problem 06/17/2017 [facility] Consult Personal history of Active Problem 06/17/2017 [facility] transient ischemic Cardiology attack [TIA], and Consult cerebral infarction without residual deficits Palpitations Active Problem 06/17/2017 [facility] Consult Transient cerebral Active Problem 06/17/2017 [facility] ischemic attack, Cardiology unspecified Consult Bradycardia, Active Problem 06/17/2017 [facility] unspecified Cardiology Consult Personal history of Active Problem 06/17/2017 [facility] transient ischemic Cardiology attack , and Consult cerebral infarction without residual deficits History of falling Active Problem 06/17/2017 [facility] Consult Abnormal Active Problem 06/17/2017 [facility] electrocardiogram Cardiology [ECG] [EKG] Consult Morbid obesity due Active Problem 06/17/2017 [facility] to excess calories Cardiology Consult Arthropathy, Active Problem 06/17/2017 [facility] unspecified Cardiology Consult Major depressive Active Problem 06/17/2017 [facility] disorder, single Cardiology episode, unspecified Consult Chest pain, Active Problem 06/17/2017 [facility] unspecified Cardiology Consult Shortness of breath Active Problem 06/17/2017 [facility] Consult Constipation, Active Problem 06/17/2017 [facility] unspecified Cardiology Consult Hypothyroidism, Active Problem 06/17/2017 [facility] unspecified Cardiology Consult Hyperlipidemia, Active Problem 06/17/2017 [facility] unspecified Cardiology Consult Chronic kidney Active Problem 06/17/2017 [facility] disease, unspecified Cardiology Consult Insomnia, Active Problem 06/17/2017 [facility] unspecified Cardiology Consult Nonrheumatic mitral Active Problem 06/17/2017 [facility] insufficiency Cardiology Consult Paroxysmal atrial Active Problem 06/17/2017 [facility] fibrillation Cardiology Consult 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 Essential Active Problem 06/17/2017 [facility] hypertension Cardiology Consult Chronic kidney Active Problem 06/17/2017 [facility] disease, Stage III Cardiology Consult Congestive 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 [facility] failure, unspecified Cardiology Consult Hypertension Active Problem 06/17/2017 [facility] essential benign Cardiology Consult 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 [facility] stenosis of carotid Cardiology artery without Consult mention of cerebral infarction Insomnia, Active Problem 06/17/2017 [facility] unspecified Cardiology Consult Mitral valve Active Problem 06/17/2017 [facility] disorders Cardiology Consult Other and Active Problem 06/17/2017 [facility] unspecified Cardiology hyperlipidemia Consult Unspecified Active Problem 06/17/2017 [facility] hypothyroidism Cardiology Consult Obesity, unspecified Active Problem 06/17/2017 [facility] Consult Other malaise and Active Problem 06/17/2017 [facility] fatigue Cardiology Consult Shortness of breath Active Problem 06/17/2017 [facility] Consult Chest pain, Active Problem 06/17/2017 [facility] unspecified Cardiology Consult Chronic diastolic Active Problem 06/17/2017 [facility] heart failure Cardiology Consult Unspecified Active Problem 06/17/2017 [facility] constipation Cardiology Consult 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 [facility] and chronic kidney Cardiology disease with heart Consult failure and stage 1 through stage 4 chronic kidney disease, or unspecified chronic kidney disease Impaired fasting Active Problem 06/17/2017 [facility] blood sugar Cardiology Consult Overactive bladder Active Problem 06/17/2017 [facility] Consult Anxiety disorder, Active Problem 06/17/2017 [facility] unspecified Cardiology Consult Incontinence without Active Problem 06/17/2017 [facility] sensory awareness Cardiology Consult Encounter for Active Problem 06/17/2017 [facility] screening for Cardiology diabetes mellitus Consult Retention of urine, Active Problem 06/17/2017 [facility] unspecified Cardiology Consult Hypertensive 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 [facility] and chronic kidney Cardiology disease, benign, Consult with heart failure and with chronic kidney disease stage I through stage IV, or unspecified Depressive disorder, Active Problem 06/17/2017 [facility] not elsewhere Cardiology classified Consult Urinary tract Active Problem 06/17/2017 [facility] infection, site not Cardiology specified Consult Unspecified Active Problem 06/17/2017 [facility] arthropathy, site Cardiology unspecified Consult Frequency of Active Problem 06/17/2017 [facility] micturition Cardiology Consult Morbid obesity Active Problem 06/17/2017 [facility] Consult Female genuine Active Problem 06/17/2017 [facility] stress incontinence Cardiology Consult Nonspecific abnormal Active Problem 06/17/2017 [facility] electrocardiogram Cardiology (EKG) Consult Palpitations Active Problem 06/17/2017 [facility] Consult Other specified Active Problem 06/17/2017 [facility] cardiac dysrhythmias Cardiology Consult Upper respiratory Active Problem 06/17/2017 [facility] tract Cardiology hypersensitivity Consult reaction, site unspecified Unspecified Active Problem 06/17/2017 [facility] transient cerebral Cardiology ischemia Consult Personal history of Active Problem 06/17/2017 [facility] fall Cardiology Consult Acute upper Active Problem 06/17/2017 [facility] respiratory Cardiology infections of Consult unspecified site Acid reflux disease Resolved Problem 11/28/2014 [facility] High cholesterol Resolved Problem 11/28/2014 [facility] Hyperlipidemia Resolved Problem 11/28/2014 [facility] Hypertension Resolved Problem 11/28/2014 [facility] Hypothyroidism Resolved Problem 11/28/2014 [facility] CVA Active [facility] Medications Medication Details Route Status Patient Ordering Order Source Instructions Provider Date Eliquis 1 tablet Orally Active 5 MG Orally [facility] [place] twice a day 2016 Cardiology Consult [place]or 1 tablet Orally Active 40-25 MG [facility] [place] Orally Once a 2017 Cardiology day Consult [place]or 1 tablet Orally Active 40-25 MG [facility] [place] Orally Once a 2016 Cardiology day Consult Dofetilide 1 capsule Orally Active 500 MCG [facility] [place] Orally Twice 2017 Cardiology a day Consult Cipro 1 tablet Orally Active 500 MG Orally [facility] [place] Twice a day 2015 Cardiology Consult Warfarin 5 mg, 1 tab, Inactive [facility] Route: PO, 2014 Medical Drug form: Center TAB, Daily, Dosing Weight 114.318, kg, Start date: 11/26/14 12:03:00, Duration: 1 doses or times, Stop date: 11/26/14 12:03:00Notes : Nurse to ensure documentation of patient education per anticoagulati on policy. Avoid large intake of vitamin-K containing foods diet. (Same As: Coumadin) valsartan 40 mg 40 mg=1 tab, Active 11/26[facility] oral tablet PO, Q12H, # 2015 Medical 60 tab, 3 Center Refill(s) atorvastatin 40 40 mg=1 tab, Active 11/26[facility] [place] mg oral tablet PO, Bedtime, 2015 Medical # 30 tab, 3 Center Refill(s) clopidogrel 75 mg 75 mg=1 tab, Active 11/26[facility] oral tablet PO, Daily, # 2015 Medical 30 tab, 0 Center Refill(s) warfarin 5 mg 5 mg, PO, Active 11/26[facility] oral tablet Daily, # 2 2015 Medical tab, 0 Center Refill(s) Atenolol 25 MG 12.5 mg=0.5 Active 11/26[facility] Oral Tablet tab, PO, 2015 Medical Daily, 0 Center Refill(s) valsartan 40 mg, 1 tab, Inactive [place] Route: PO, 2014 Medical Drug form: [place] TAB, Q12H, Dosing Weight 114.318, kg, Start date: 11/26/14 9:00:00, Duration: 30 day, Stop date: 12/25/14 21:00:00Notes : Same as [place] Protonix 40 mg, 1 tab, No Longer [place] Route: PO, Active 2014 Medical Drug form: [place] ECTAB, Before Dinner, Start date: 11/25/14 16:30:00, Duration: 30 day, Stop date: 12/24/14 16:30:00Notes : Tablet should not be chewed or crushed. (Same as: Protonix) Atenolol 12.5 mg, 0.5 No Longer [place] tab, Route: Active 2014 Medical PO, Drug Center form: TAB, Daily, Dosing Weight 114.318, kg, Start date: 11/25/14 9:00:00, Duration: 30 day, Stop date: 12/24/14 9:00:00Notes: (Same As:Tenormin) valsartan 320 mg, No Longer [facility] Route: PO, Active 2014 Medical Drug form: [place] TAB, Daily, Dosing Weight 114.318, kg, Start date: 11/25/14 9:00:00, Duration: 30 day, Stop date: 12/24/14 9:00:00 Thyroxine 100 No Longer [facility] microgram, 1 Active 2014 Medical tab, Route: [place] PO, Drug form: TAB, Q630AM, Dosing Weight 114.318, kg, Start date: 11/25/14 6:30:00, Duration: 30 day, Stop date: 12/24/14 6:30:00Notes: Take 1 hour before or 2 hours after meal; Enteral feeds may interefere with the absorption of this medication. (Same as:Levothroid , Synthroid) heparin, porcine 7,500 unit, No Longer [place] 1.5 mL, Active 2014 Medical Route: SUB-Q, [place] Drug form: INJ, Q8H, Dosing Weight 114.318, kg, Start date: 11/24/14 22:00:00, Duration: 30 day, Stop date: 12/24/14 16:00:00Notes : porcine heparin Plavix 75 mg, 1 tab, No Longer [facility] Route: PO, Active 2014 Medical Drug form: Center TAB, Daily, Dosing Weight 114.318, kg, Start date: 11/24/14 22:00:00, Duration: 30 day, Stop date: 12/24/14 9:00:00Notes: (Same As: Plavix) Tylenol 650 mg, 2 No Longer [facility] tab, Route: Active 2014 Medical PO, Drug Center form: TAB, Q6H, Dosing Weight 114.318, kg, PRN Pain, Start date: 11/24/14 21:16:00, Duration: 30 day, Stop date: 12/24/14 21:15:00Notes : Do not exceed 4 gm/day. (Same as: Tylenol) atorvastatin 40 mg, 1 tab, No Longer [facility] Route: PO, Active 2014 Medical Drug form: Center TAB, Bedtime, kg, Start date: 11/24/14 21:00:00, Duration: 30 day, Stop date: 12/23/14 21:00:00Notes : (Same as: Lipitor) Bupropion 150 mg, 1 No Longer [facility] tab, Route: Active 2014 Medical PO, Drug Center form: ERTAB, BID, Dosing Weight 114.318, kg, Start date: 11/24/14 17:00:00, Duration: 30 day, Stop date: 12/24/14 9:00:00Notes: (Do not crush) (Same As: Wellbutrin SR) valsartan 40 mg, Route: Inactive [facility] PO, BID, 2014 Medical Dosing Weight Center 114.318, kg, Start date: 11/24/14 17:00:00, Duration: 30 day, Stop date: 12/24/14 9:00:00 Triiodothyronine 10 microgram, No Longer [facility] 2 tab, Route: Active 2014 Medical PO, Drug Center form: TAB, QAM, Dosing Weight 114.318, kg, Priority: NOW, Start date: 11/24/14 15:35:00, Duration: 30 day, Stop date: 12/24/14 9:00:00Notes: (Same as: Cytomel) Atenolol 100 MG 50 mg=0.5 No Longer [facility] Oral Tablet tab, PO, BID, Active 2015 Medical # 30 tab, 0 Center Refill(s) pravastatin 40 mg 40 mg=1 tab, No Longer [facility] oral tablet PO, Bedtime, Active 2015 Medical # 30 tab, 0 Center Refill(s) Furosemide 40 MG 40 mg=1 tab, No Longer [place] Oral Tablet PO, Daily, # Active 2015 Medical [Lasix] 30 tab, 0 Center Refill(s) spironolactone 25 25 mg=1 tab, No Longer [facility] mg oral tablet PO, Daily, # Active 2014 Medical 60 tab, 0 Center Refill(s) Potassium 20 mEq=1 tab, No Longer [place] Chloride 20 MEQ PO, Daily, 0 Active 2015 Medical Extended Release Refill(s) Center Tablet omeprazole 40 mg 40 mg=1 cap, Active [place] oral delayed PO, Daily, # 2015 Medical release capsule 30 cap, 0 Center Refill(s) Metolazone 5 MG 5 mg=1 tab, No Longer [facility] Oral Tablet PO, Daily, # Active 2015 Medical 30 tab, 0 Center Refill(s) liothyronine 5 10 Active [facility] mcg oral tablet microgram=2 2014 Medical tab, PO, QAM, Center # 30 tab, 0 Refill(s) Fenofibrate 160 160 mg=1 tab, No Longer [facility] MG Oral Tablet PO, Daily, # Active 2015 Medical 30 tab, 0 Center Refill(s) Zolpidem tartrate 10 mg=1 tab, Active [place] 10 MG Oral Tablet PO, Bedtime, 2015 Medical [Ambien] for sleep, 0 Center Refill(s) buPROPion 150 150 mg=1 tab, Active [facility] mg/24 hours oral PO, BID, # 30 2015 Medical extended release tab, 0 Center tablet Refill(s) Albuterol 0.09 2 puff, No Longer [facility] MG/ACTUAT Metered INHALATION, Active 2015 Medical Dose Inhaler Q6H, as Center [Ventolin] needed for wheezing, # 17 gm, 0 Refill(s) levothyroxine 100 100 Active [place] mcg (0.1 mg) oral microgram=1 2014 Medical tablet tab, PO, QA, Center # 30 tab, 0 Refill(s) doxazosin 4 mg 4 mg=1 tab, Active [facility] oral tablet PO, Daily, # 2015 Medical 30 tab, 0 Center Refill(s) valsartan 320 mg 320 mg=1 tab, No Longer [facility] oral tablet PO, Daily, # Active 2014 Medical 30 tab, 0 Center Refill(s) Triiodothyronine 5 microgram, Inactive [facility] 1 tab, Route: 2014 Medical PO, Drug Center form: TAB, Daily, Dosing Weight 114.318, kg, Start date: 11/24/14 14:09:00, Duration: 30 day, Stop date: 12/24/14 9:00:00Notes: (Same as: Cytomel) Reglan 5 mg, 1 mL, Inactive [facility] Route: IV, 2014 Medical Drug form: [place] INJ, ONCE, Dosing Weight 114.318, kg, Start date: 11/24/14 11:44:00, Stop date: 11/24/14 11:44:00Notes : (Same as: Reglan) Magnesium Sulfate 2 gm, 50 mL, Inactive [facility] Route: IVPB, 2014 Medical Drug form: [place] INJ, ONCE, Dosing Weight 114.318, kg, Total dose=2 gm, Start date: 11/24/14 11:27:00, Duration: 1 doses or times, Stop date: 11/24/14 11:27:00 pneumococcal 0.5 ml, Inactive [facility] capsular Route: IM, 2014 Medical polysaccharide Drug Form: [place] type 1 vaccine / INJ, Daily, pneumococcal Start date: capsular 11/24/14 polysaccharide 9:00:00, Stop type 10A vaccine date: / pneumococcal 11/24/14 capsular 23:59:00Notes polysaccharide : (Same as: type 11A vaccine Pneumovax 23) / pneumococcal Refrigerate capsular polysaccharide type 12F vaccine / pneumococcal capsular polysacchar Saline Flush 0.9% 10 ml, Route: No Longer [facility] IVP, Drug Active 2014 Medical Form: INJ, Center kg, Q12H, Start date: 11/24/14 9:00:00, Duration: 30 day, Stop date: 12/23/14 21:00:00Notes : (Same as: BD Posiflush) Versed 0.5 mg, 0.5 Inactive [facility] mL, Route: 2014 Medical IVP, Drug Center form: INJ, ONCE, Dosing Weight 114.318, kg, Start date: 11/24/14 8:31:00, Stop date: 11/24/14 8:31:00Notes: (Same as: Versed) Pravastatin 40 mg=1 tab, Inactive [facility] Sodium 40 MG Oral PO, Bedtime, 2014 Medical Tablet # 30 tab, 0 Center [Pravachol] Refill(s) aspirin 0 Refill(s) Inactive [facility] 2014 Medical Center Fenofibrate 160 160 mg=1 tab, Inactive [facility] MG Oral Tablet PO, Daily, # 2015 Medical 30 tab, 0 Center Refill(s) Atenolol 0 Refill(s) Inactive [facility] 2014 [facility] valsartan 320 mg 320 mg=1 tab, Inactive [facility] oral tablet PO, Daily, # 2015 Medical 30 tab, 0 Center Refill(s) Potassium 0 Refill(s) Inactive [facility] Chloride 20 MEQ 2014 Medical Extended Release Center Tablet Metolazone 5 MG 5 mg=1 tab, Inactive [facility] Oral Tablet PO, Daily, # 2015 Medical 30 tab, 0 Center Refill(s) Furosemide 40 MG 40 mg=1 tab, Inactive [facility] Oral Tablet PO, Daily, # 2015 Medical [Lasix] 30 tab, 0 Center Refill(s) liothyronine 5 5 microgram=1 Inactive [facility] mcg oral tablet tab, PO, 2014 Medical Daily, # 30 Center tab, 0 Refill(s) Omeprazole 0 Refill(s) Inactive [facility] 2014 Medical Center spironolactone 25 0 Refill(s) Inactive [facility] mg oral tablet 2014 [facility] Center Zofran 4 mg, 2 mL, Inactive [facility] Route: IVP, 2014 Medical Drug form: Center INJ, ONCE, Dosing Weight 114.318, kg, Start date: 11/24/14 7:08:00, Stop date: 11/24/14 7:08:00Notes: (Same as: Zofran) Tylenol 650 mg, 2 Inactive [facility] tab, Route: 2015 Medical PO, Drug Center form: TAB, Q6H, kg, PRN Pain 1-3/Temp > 99.5 F, Start date: 11/24/14 0:48:00, Stop date: 12/24/14 0:47:00Notes: Do not exceed 4 gm/day. (Same as: Tylenol) Sodium Chloride 1,000 mL, No Longer [facility] 0.154 MEQ/ML Rate: 75 Active 2014 Medical Injectable ml/hr, Infuse Center Solution over: 13.3 hr, Route: IV, Total Volume: 1,000, Start date: 11/23/14 23:06:00, Duration: 30 day, Stop date: 12/23/14 23:05:00 Saline Flush 0.9% 10 ml, Route: No Longer [facility] IVP, Drug Active 2014 Medical Form: INJ, Center kg, PRN, PRN Line Flush, Start date: 11/23/14 22:58:00, Duration: 30 day, Stop date: 12/23/14 22:57:00Notes : (Same as: BD Posiflush) Acetaminophen 650 mg, 2 No Longer [facility] tab, Route: Active 2014 Medical PO, [...] Updated Comments Source pneumococcal 11/24/2014 Not Given [facility] 23-valent vaccine Medical Center Results Order Name Results Value Reference Date Interpretation Comments Source Range CHEM PANEL Magnesium Lvl 2.1 mg/dL 1.8 - 2.4 11/26 [facility] CHEM PANEL Phosphorus 2.8 mg/dL 2.5 - 4.5 11/26 2014 [facility] CHEM PANEL eGFR 40 11/26 1Result Comment: The eGFR is calculated using the CKD-EPI formula. In most young, healthy individuals the eGFR will be >90 mL/ min/1.73m2. The eGFR declines with age. An eGFR of 60-89 may be normal in [facility] mL/min/1.7 some populations, particularly the elderly, for whom the CKD-EPI formula has not been extensively validated. Use of the eGFR is not recommended in the following populations: [address] Individuals with unstable creatinine concentrations, including [...] values reflect the clinical guidelines of the [place] [employer]. [facility] CHEM PANEL BUN 18 mg/dL 7 - 22 11/26 [facility] CHEM PANEL Creatinine 1.3 mg/dL 0.5 - 1.4 11/26 [facility] CHEM PANEL Sodium Lvl 136 meq/L 135 - 145 11/26 [facility] CHEM PANEL Chloride Lvl 102 meq/L 95 - 109 11/26 [facility] CHEM PANEL Potassium Lvl 3.5 meq/L 3.5 - 5.1 11/26 [facility] CHEM PANEL Calcium Lvl 9.0 mg/dL 8.5 - 10.5 11/26 [facility] CHEM PANEL CO2 25 meq/L 24 - 32 11/26 [facility] CHEM PANEL AGAP 12.5 meq/L 10.0 - 11/26 20.0 [facility] HEMATOLOGY RDW 13.1 % 11.5 - 11/26 14.5 /2014 [facility] HEMATOLOGY MCH 32.4 pg 27.0 - 02/ 31.0 /2014 [facility] HEMATOLOGY MCV 93.5 fL 80.0 - 02 98.0 /2014 [facility] HEMATOLOGY MCHC 34.6 g/dL 32.0 - 02/ 36.0 /2014 [facility] HEMATOLOGY Hct 33.6 % 36.0 - / 48.0 /2014 [facility] HEMATOLOGY Hgb 11.6 g/dL 12.0 - 02 16.0 /2014 [facility] HEMATOLOGY RBC 3.60 M/CMM 4.20 - 02 5.40 /2014 [facility] HEMATOLOGY WBC 4.6 K/CMM 3.7 - 10.4 11/26 [facility] HEMATOLOGY MPV 8.3 fL 7.4 - 10.4 11/[address] [place] [address] HEMATOLOGY Platelet 149 K/CMM 133 - [address] HEMATOLOGY Segs 62.3 % 45.0 - 02 [facility] 75.0 [facility] HEMATOLOGY Lymphocytes # 1.2 K/CMM 1.0 - 5.5 02 [facility] HEMATOLOGY Monocytes # 0.4 K/CMM 0.0 - 0.[address] [place] [address] HEMATOLOGY Eosinophils 3.0 % 0.0 - 4.0 02 [facility] HEMATOLOGY Lymphocytes 26.2 % 20.0 - 11/26 [facility] 40.0 [facility] HEMATOLOGY Segs-Bands # 2.9 K/CMM 1.5 - 8.1 11/[address] HEMATOLOGY Basophils 0.5 % 0.0 - 1.0 02/ [facility] HEMATOLOGY Monocytes 8.0 % 2.0 - 12.0 11/26 [facility] [address] [place] [address] HEMATOLOGY Eosinophils # 0.1 K/CMM 0.0 - 0.5 11/[address] CHEM PANEL Phosphorus 3.1 mg/dL 2.5 - 4.5 11/[address] CHEM PANEL eGFR 34 02 2Result Comment: The eGFR is calculated using the CKD-EPI formula. In most young, healthy individuals the eGFR will be >90 mL/ min/1.73m2. The eGFR declines with age. An eGFR of 60-89 may be normal in [facility] mL/min/1.7 /2014 some populations, particularly the elderly, for whom the CKD-EPI formula has not been extensively validated. Use of the eGFR is not recommended in the following populations: [address] Individuals with unstable creatinine concentrations, including [...] CO2 25 meq/L 24 - 32 11/25 [facility] CHEM PANEL AGAP 12.8 meq/L 10.0 - 11/25 20.0 [facility] CHEM PANEL Calcium Lvl 8.7 mg/dL 8.5 - 10.5 11/25 2014 [facility] CHEM PANEL Chloride Lvl 104 meq/L 95 - 109 11/25 2014 [facility] CHEM PANEL BUN 23 mg/dL 7 - 22 11/25 [facility] CHEM PANEL Sodium Lvl 138 meq/L 135 - 145 11/25 [facility] CHEM PANEL Glucose Lvl 82 mg/dL 70 - 99 11/25 5Interpretive Data: Adult reference range values reflect the clinical guidelines of the [place] [employer]. [facility] CHEM PANEL Creatinine 1.5 mg/dL 0.5 - 1.4 11/25 [facility] CHEM PANEL Potassium Lvl 3.8 meq/L 3.5 - 5.1 11/25 [facility] CHEM PANEL Magnesium Lvl 2.7 mg/dL 1.8 - 2.4 11/25 [facility] HEMATOLOGY Segs 63.1 % 45.0 - 11/25 75.0 [facility] HEMATOLOGY Lymphocytes 27.1 % 20.0 - 02 40.0 [facility] HEMATOLOGY Monocytes 7.2 % 2.0 - 12.0 11/25 2014 [facility] HEMATOLOGY Eosinophils # 0.1 K/CMM 0.0 - 0.5 11/25 [facility] HEMATOLOGY Eosinophils 2.2 % 0.0 - 4.0 11/25 [facility] HEMATOLOGY Basophils 0.4 % 0.0 - 1.0 11/25 [facility] HEMATOLOGY Segs-Bands # 3.1 K/CMM 1.5 - 8.1 11/25 [facility] HEMATOLOGY Monocytes # 0.3 K/CMM 0.0 - 0.8 11/25 [facility] HEMATOLOGY Lymphocytes # 1.3 K/CMM 1.0 - 5.5 11/25 [facility] HEMATOLOGY MPV 8.5 fL 7.4 - 10.4 11/25 [facility] HEMATOLOGY MCH 31.6 pg 27.0 - 11/25 31.0 [facility] HEMATOLOGY MCV 93.4 fL 80.0 - 11/25 [facility] 98.0 /2014 [facility] HEMATOLOGY Hct 33.2 % 36.0 - 11/25 [facility] 48.0 /2014 [facility] HEMATOLOGY Platelet 151 K/CMM 133 - 450 11/25 [facility] HEMATOLOGY RDW 13.1 % 11.5 - 11/25 14.5 [facility] HEMATOLOGY MCHC 33.8 g/dL 32.0 - 11/25 36.0 /2014 [facility] HEMATOLOGY Hgb 11.2 g/dL 12.0 - 02 16.0 [facility] HEMATOLOGY RBC 3.56 M/CMM 4.20 - 11/25 5.40 /2014 [facility] HEMATOLOGY WBC 4.9 K/CMM 3.7 - 10.4 11/25 [facility] HEMATOLOGY INR 1.14 0.85 - 11/25 7Interpretive Data: RECOMMENDED RANGES FOR PROTIME INR: [facility] 1.17 2.0-3.0 for most medical and surgical thromboembolic states. Medical 2.5-3.5 for artificial heart valves and recurrent embolism. Center INR SHOULD BE USED ONLY FOR PATIENTS ON STABLE ANTICOAGULANT THERAPY. HEMATOLOGY PTT 28.5 s 22.9 - 02 9Interpretive [facility] 35.8 /2014 Data: Heparin [facility] Therapeutic Center Range: 57 - 92 Seconds HEMATOLOGY PT 14.7 s 12.0 - 02/03 [facility] 14.7 /2014 [facility] THYROID TSH 3.190 0.360 - 11/25 [facility] PANEL uIU/mL 3.740 /2014 Medical Center Neck wo Neck wo EXAM: MRI BRAIN 11/24 - [facility] contrast contrast MRA /2014 - Medical MRA EXAM: MRA BRAIN This report was dictated by a Chief Creative Officer/ Fellow. I have personally reviewed the images [...] caliber. No aneurysm is identified. Right type BLADDER TRIMMER is present, a normal variant. There is [...] Brain wo EXAM: MRI BRAIN 11/24 - [facility] contrast contrast MRA /2014 - Medical MRA EXAM: MRA BRAIN This report was dictated by a Chief Creative Officer/ Fellow. I have personally reviewed the images [...] caliber. No aneurysm is identified. Right type BLADDER TRIMMER is present, a normal variant. There is [...] Brain wo EXAM: MRI BRAIN 11/24 - [facility] contrast contrast MRI /2014 - Medical MRI EXAM: MRA BRAIN This report was dictated by a Chief Creative Officer/ Fellow. I have personally reviewed the images [...] caliber. No aneurysm is identified. Right type BLADDER TRIMMER is present, a normal variant. There is [...] AND UA <=1.0 0.1 - 1.0 11/24 [facility] Urobilinogen mg/dL /[address] [place] [address] URINE AND UA Renal Epi 7 /LPF <=0 /LPF 11/[address] URINE AND UA Sq Epi Moderate Few /LPF 11/24 [facility] /LPF /[address] [place] [address] URINE AND UA WBC 2 /HPF 0 - 5 11/[address] URINE AND UA Nitrite Negative Negative 11/[address] (11/24/14 2:06 AM) [place] URINE AND UA Leuk Est Negative Negative 11/[address] (11/24/14 2:06 AM) [place] URINE AND UA Blood Negative Negative 11/[address] (11/24/14 2:06 AM) [place] URINE AND UA Protein Negative Negative 11/24 [facility] mg/dL mg/dL /2014 [facility] URINE AND UA pH 6.5 5.0 - 8.0 11/[address] URINE AND UA Glucose Negative Negative 11/24 [facility] mg/dL mg/dL /[address] [place] [address] URINE AND UA Bili Negative Negative 11/24 [address] [place] (11/24/14 2:06 AM) URINE AND UA Ketones Negative Negative 11/24 [facility] mg/dL mg/dL /2014 [facility] URINE AND UA Spec Grav 1.009 <=1.030 11/24 [facility] URINE AND UA Turbidity Clear Clear 11/24 [facility] (11/24/14 2:06 AM) [place] URINE AND UA Color Yellow Yellow 11/24 [facility] *NA* [place] (11/24/14 2:06 AM) CHEM PANEL A/G Ratio 1.2 0.7 - 1.6 11/24 [facility] CHEM PANEL Globulin 3.2 g/dL 2.0 - 4.0 11/24 [facility] CHEM PANEL B/C Ratio 22 6 - 25 11/24 [facility]2014 [facility] CHEM PANEL AGAP 9.8 meq/L 10.0 - 11/24 [facility] 20.0 [facility] CHEM PANEL eGFR 29 11/24 3Result Comment: The eGFR is calculated using the CKD-EPI formula. In most young, healthy individuals the eGFR will be >90 mL/ min/1.73m2. The eGFR declines with age. An eGFR of 60-89 may be normal in [facility] mL/min/1.7 some populations, particularly the elderly, for whom the CKD-EPI formula has not been extensively validated. Use of the eGFR is not recommended in the following populations: [address] Individuals with unstable creatinine concentrations, including [...] values reflect the clinical guidelines of the [place] [employer]. [facility] CHEM PANEL Calcium Lvl 8.7 mg/dL 8.5 - 10.5 11/24 [facility] CHEM PANEL ALT 29 unit/L 0 - 65 11/24 [facility] CHEM PANEL AST 17 unit/L 0 - 37 11/[address] CHEM PANEL Albumin Lvl 3.7 g/dL 3.5 - 5.0 11/[address] CHEM PANEL Total Protein 6.9 g/dL 6.4 - 8.4 11/[address] CHEM PANEL CO2 28 meq/L 24 - 32 11/[address] CHEM PANEL Chloride Lvl 103 meq/L 95 - 109 11/[address] CHEM PANEL Potassium Lvl 3.8 meq/L 3.5 - 5.1 11/[address] CHEM PANEL Sodium Lvl 137 meq/L 135 - 145 11/[address] CHEM PANEL Creatinine 1.7 mg/dL 0.5 - 1.4 11/[address] CHEM PANEL BUN 37 mg/dL 7 - 22 11/[address] CHEM PANEL Alk Phos 37 unit/L 39 - 136 11/[address] CHEM PANEL Bili Total 0.4 mg/dL 0.2 - 1.3 11/[address] HEMATOLOGY Monocytes # 0.4 K/CMM 0.0 - 0.8 11/[address] HEMATOLOGY Lymphocytes # 1.1 K/CMM 1.0 - 5.5 11/[address] HEMATOLOGY Eosinophils # 0.1 K/CMM 0.0 - 0.5 11/[address] HEMATOLOGY Segs 70.9 % 45.0 - 02 [facility] 75.0 /2014 [facility] HEMATOLOGY Monocytes 6.7 % 2.0 - 12.0 11/[address] HEMATOLOGY Lymphocytes 19.7 % 20.0 - 02/ [facility] 40.0 /2014 [facility] HEMATOLOGY Eosinophils 2.3 % 0.0 - 4.[address] HEMATOLOGY Segs-Bands # 4.0 K/CMM 1.5 - 8.1 11/[address] HEMATOLOGY Basophils 0.4 % 0.0 - 1.0 11/[address] HEMATOLOGY PTT 28.2 s 22.9 - 02/ 10Interpretiv [facility] 35.8 /2015 e Data: [facility] Therapeutic Range: 57 - 92 Seconds HEMATOLOGY PT 13.9 s 12.0 - 11/24 [facility] 14.7 /2014 [facility] HEMATOLOGY INR 1.07 0.85 - 11/24 8Interpretive Data: RECOMMENDED RANGES FOR PROTIME INR: [facility] 1.17 2.0-3.0 for most medical and surgical thromboembolic states. Medical 2.5-3.5 for artificial heart valves and recurrent embolism. Center INR SHOULD BE USED ONLY FOR PATIENTS ON STABLE ANTICOAGULANT THERAPY. HEMATOLOGY MPV 8.8 fL 7.4 - 10.4 11/24 [facility] HEMATOLOGY WBC 5.7 K/CMM 3.7 - 10.4 11/24 [facility] HEMATOLOGY MCV 94.9 fL 80.0 - 11/24 [facility] 98.0 [facility] HEMATOLOGY RBC 3.73 M/CMM 4.20 - 11/24 [facility] 5.40 [facility] HEMATOLOGY RDW 13.3 % 11.5 - 11/24 [facility] 14.5 /2014 [facility] HEMATOLOGY Hgb 12.1 g/dL 12.0 - 11/24 [facility] 16.0 [facility] HEMATOLOGY Hct 35.3 % 36.0 - 11/24 [facility] 48.0 [facility] HEMATOLOGY Platelet 158 K/CMM 133 - 450 11/24 [facility] HEMATOLOGY MCHC 34.2 g/dL 32.0 - 11/24 [facility] 36.0 [facility] HEMATOLOGY MCH 32.5 pg 27.0 - 11/24 [facility] 31.0 [facility] LIPIDS CHD Risk 2.81 3.90 - 11/24 [facility] 5.80 [facility] LIPIDS VLDL 26 11/24 [facility] LIPIDS LDL 59 mg/dL <=99 mg/dL 11/24 [facility] (Calculated) [facility] LIPIDS Trig 128 mg/dL <=149 11/24 [facility] mg/dL [facility] LIPIDS HDL 47 mg/dL >=61 mg/dL 11/24 [facility] LIPIDS Chol 132 mg/dL <=199 11/24 [facility] mg/dL [facility] SPECIAL Hgb A1C 5.6 % <=5.6 % 11/24 [facility] CHEMISTRY [facility] Vital Signs Vital Sign Value Date Comments Source Respitory Rate 16 11/26/2014 [facility] Systolic (mm Hg) 172 11/26/2014 [facility] Diastolic (mm Hg) 79 11/26/2014 [facility] Heart Rate 57 11/26/2014 [facility] Temperature Oral (F) 97.5 F 11/26/2014 [facility] Temperature Oral (F) 97.5 F 11/26/2014 [facility] Heart Rate 69 11/26/2014 [facility] Diastolic (mm Hg) 79 11/26/2014 [facility] Respitory Rate 18 11/26/2014 [facility] Systolic (mm Hg) 166 11/26/2014 [facility] Respitory Rate 16 11/26/2014 [facility] Systolic (mm Hg) 157 11/26/2014 [facility] Diastolic (mm Hg) 66 11/26/2014 [facility] Heart Rate 65 11/24/2014 [facility] Weight 114.318 11/24/2014 [facility] BMI Calculated 43.26 11/24/2014 [facility] Height 162.56 cm 11/24/2014 [facility] Encounters Location Location Encounter Encounter Reason Attending ADM DC Status Source Details Type Number For Provider Date Date Visit [facility] [id number] Arnaldocooper Viky 11/24 11/26 [facility] /2014 [facility] PT/INR 3.0 [id number] 12/19 12/19 [facility] [id number]- /2014 [facility] [id number] y [facility] PT/INR 3.0 [id number] 12/19 12/19 [facility] [id number]- /2014 [facility] [id number] y [facility] PT/INR 3.0 [id number] 12/19 12/19 [facility] [id number]- /2014 [facility] [id number] y [facility] PT/INR 3.0 [id number] 12/19 12/19 [facility] [id number]- /2014 [facility] [id number] y Consult [place] Unknown [id number] 12/19 12/19 [facility] [id number]- /2014 [facility] [id number] y Consult [place] Unknown [id number] 12/19 12/19 [facility] [id number]- /2014 [facility] [id number] y Consult [place] Unknown [id number] 12/19 12/19 [facility] [id number]- /2014 [facility] [id number] y Consult [place] Unknown [id number] 12/19 12/19 [facility] [id number]- /2014 [facility] [id number] y [facility] [place] PT/INR 3.0 [id number] 12/19 12/19 [facility] [id number]- /2014 [facility] [id number] y [facility] [place] PT/INR 3.0 [id number] 12/19 12/19 [facility] [id number]- /2014 [facility] [id number] y Consult [place] Unknown [id number] 12/19 12/19 [facility] [id number]- /2014 [facility] [id number] y Consult [place] Unknown [id number] 12/19 12/19 [facility] [id number]- /2014 [facility] [id number] y Consult [place] Unknown [id number] 03/23 03/23 [facility] [id number]- /2014 [facility] [id number] y Consult [place] Unknown [id number] 03/23 03/23 [facility] [id number]- /2014 [facility] [id number] y Consult [place] Unknown [id number] 03/23 03/23 [facility] [id number]- /2014 [facility] [id number] y Consult [place] Unknown [id number] 03/23 03/23 [facility] [id number]- /2014 [facility] [id number] y Consult [place] Unknown [id number] 03/23 03/23 [facility] [id number]- /2014 [facility] [id number] y Consult [place] Unknown [id number] 03/23 03/23 [facility] [id number]- /2014 [facility] [id number] y Consult [place] Unknown [id number] 08/12 08/12 [facility] [id number]- /2014 [facility] [id number] y Consult [place] Unknown [id number] 08/12 08/12 [facility] [id number]- /2014 [facility] [id number] y Consult [place] Unknown [id number] 08/12 08/12 [facility] [id number]- /2014 [facility] [id number] y Consult [place] Unknown [id number] 08/12 08/12 [facility] [id number]- /2014 [facility] [id number] y Consult [place] Unknown [id number] 08/12 08/12 [facility] [id number]- /2014 [facility] [id number] y Consult [place] Unknown [id number] 08/12 08/12 [facility] [id number]- /2014 [facility] [id number] y Consult [place] Unknown [id number] 01/28 01/28 [facility] [id number]- /2015 [facility] [id number] y Consult [place] Unknown [id number] 01/28 01/28 [facility] [id number]- /2015 [facility] [id number] y Consult [place] Unknown [id number] 01/28 01/28 [facility] [id number]- /2015 [facility] [id number] y Consult [place] Unknown [id number] 01/28 01/28 [facility] [id number]- /2015 [facility] [id number] y Consult [place] Unknown [id number] 01/28 01/28 [facility] [id number]- /2015 [facility] [id number] y Consult [place] Unknown [id number] 01/28 01/28 [facility] [id number]- /2015 [facility] [id number] y Consult [place] Unknown [id number] 03/11 03/11 [facility] [id number]- /2015 [facility] [id number] y Consult [place] Unknown [id number] 03/11 03/11 [facility] [id number]- /2015 [facility] [id number] y Consult [place] Unknown [id number] 03/11 03/11 [facility] [id number]- /2015 [facility] [id number] y Consult [place] Unknown [id number] 03/11 03/11 [facility] [id number]- /2015 [facility] [id number] y Consult [place] Unknown [id number] 03/11 03/11 [facility] [id number]- /2015 [facility] [id number] y Consult [place] Unknown [id number] 04/15 04/15 [facility] [id number]- /2015 [facility] [id number] y Consult [place] Unknown [id number] 04/15 04/15 [facility] [id number]-[id number]- /2015 [facility] [id number] y Consult [place] Unknown [id number] 04/15 04/15 [facility] [id number]- /2015 [facility] [id number] y Consult [place] Unknown [id number] 04/15 04/15 [facility] [id number]- /2015 [facility] [id number] y Consult [place] Unknown [id number] 04/15 04/15 [facility] [id number]- /2015 [facility] [id number] y Consult [place] Unknown [id number] 04/15 04/15 [facility] [id number]- /2015 [facility] [id number] y Consult [place] Unknown [id number] 04/15 04/15 [facility] [id number]- /2015 [facility] [id number] y Consult [place] Unknown [id number] 04/15 04/15 [facility] [id number]- /2015 [facility] [id number] y Consult [place] Other [id number] 09/09 09/09 [facility] [id number]- /2015 [facility] [id number] y Consult [place] Other [id number] 09/09 09/09 [facility] [id number]- /2015 [facility] [id number] y Consult [place] Unknown [id number] 12/20 12/20 [facility] [id number]- /2016 [facility] [id number] y Consult Procedures Procedure Code Date Perfomer Comments Source Knee replacement [id number] [facility]
--- OUTSIDE RECORDS SUMMARY | 2019-01-07 07:50 | XMS REPORT ---
:1940 [facility] Team Providers Name [...] Start Date End Date Status Dosage Denae [facility] [id number] 5 MG Orally twice Jun 08, Active 1 tablet -21 a day 2016 Results No Known Results Summary Purpose eClinicalWorks Submission
--- OUTSIDE RECORDS SUMMARY | 2019-01-07 07:50 | XMS REPORT ---
:1940 Author Organization eClinicalWorks Care Team Providers Name Role Phone Melissa Salmon Provider Role Unavailable Encounters Encounter Location Date Unknown [place] Marketing Team Lead Aug 12, 2015 Unknown [place] [employer] Team Lead January 29, 2016 Unknown [place] [employer] Team Lead Dec 19, 2014 PT/INR 3.0 [place] [employer] Lead Dec 19, 2014 Unknown [place] [employer] Lead March 23, 2015 Problems Problem Type Condition [...]
--- OUTSIDE RECORDS SUMMARY | 2019-01-07 07:50 | XMS REPORT ---
:1940 [facility] Team Providers Name Role Phone [...] Start Date End Date Status Dosage Edarbyclor [facility] [address] 40-25 MG Orally January 02, Active 1 tablet -30 Once a day 2016 Results No Known Results Summary Purpose eClinicalWorks Submission
--- OUTSIDE RECORDS SUMMARY | 2019-01-07 07:50 | XMS REPORT ---
:1940 [facility] Providers Name Role Phone Bennett Salmon Provider Role Unavailable Encounters Encounter Location Date Unknown [place] Automatic Nailing Machine Operator Aug 12, 2015 Unknown [place] Automatic Nailing Machine Operator January 29, 2016 Unknown [place] Automatic Nailing Machine Operator March 11, 2016 Unknown [place] Automatic Nailing Machine Operator April 15, 2016 Unknown [place] Automatic Nailing Machine Operator Dec 19, 2014 PT/INR 3.0 [place] Automatic Nailing Machine Operator Dec 19, 2014 Unknown [place] Automatic Nailing Machine Operator March 23, 2015 Unknown [place] Automatic Nailing Machine Operator April 15, 2016 Problems Problem Type Condition [...] Date End Date Status Dosage Cipro MEDISPAN [address] 500 MG Orally April 15 1 tablet [...]
--- OUTSIDE RECORDS SUMMARY | 2019-01-07 07:50 | XMS REPORT ---
:1940 Author Organization eClinicalWorks Care Team Providers Name Role Phone Melissa Salmon Provider Role Unavailable Encounters Encounter Location Date Unknown [place] Orchard Worker Aug 12, 2015 Unknown [place] Orchard Worker January 29, 2016 Unknown [place] Orchard Worker March 11, 2016 Unknown [place] Orchard Worker Dec 19, 2014 PT/INR 3.0 [place] Orchard Worker Dec 19, 2014 Unknown [place] Orchard Worker March 23, 2015 Problems Problem Type [...]
--- OUTSIDE RECORDS SUMMARY | 2019-01-07 07:51 | XMS REPORT ---
:1940 [facility] Team Providers Name Role Phone Bennett Salmon Provider Role Unavailable Encounters Encounter Location Date Unknown [place] Processor Helper Aug 12, 2015 Unknown [place] Processor Helper January 29, 2016 Unknown [place] Processor Helper March 11, 2016 Unknown [place] Processor Helper April 15, 2016 Unknown [place] Processor Helper Dec 19, 2014 PT/INR 3.0 [place] Process[employer] Helper Dec 19, 2014 Unknown [place] Processor Helper March 23, 2015 Unknown [place] Processor Helper April 15, 2016 Problems Problem Type Condition [...] Date End Date Status Dosage Cipro MEDISPAN [address] 500 MG Orally April 15 1 tablet [...]
--- OUTSIDE RECORDS SUMMARY | 2019-01-07 07:51 | XMS REPORT ---
:1940 [facility] Team Providers Name Role Phone [...] Edarbyclor [facility] [address] 40-25 MG Orally January 17, Active 1 tablet -30 Once a day 2016 Results No Known Results Summary Purpose eClinicalWorks Submission
--- OUTSIDE RECORDS SUMMARY | 2019-01-07 07:51 | XMS REPORT ---
:1940 [facility] Team Providers Name Role Phone Melissa Salmon Provider Role Unavailable Encounters Encounter Location Date Unknown [place]ret[place] Leveler Operator Helper Aug 12, 2015 Unknown [place] Leveler Operator Helper January 29, 2016 Unknown [place] Leveler Operator Helper March 11, 2016 Unknown [place] Leveler Operator Helper April 15, 2016 Unknown [place] Leveler Operator Helper Dec 19, 2014 PT/INR 3.0 [place] Leveler Operator Helper Dec 19, 2014 Unknown [place] Leveler Operator Helper March 23, 2015 Unknown [place] Leveler Operator Helper Dec 20, 2016 Unknown [place] Leveler Operator Helper April 15, 2016 Other [place] Stret[place] Leveler Operator Helper Sep 09, 2016 Problems Problem Type Condition [...] End Status Dosage Date Date Tikosyn MEDISPAN [id number] 500 Inactive TAKE ONE CAPSULE BY MOUTH TWICE A DAY Dofetilide MEDISPAN [address]-44 500 MCG Orally Dec 20, Active 1 [...]
--- OUTSIDE RECORDS SUMMARY | 2019-01-07 07:51 | XMS REPORT ---
:1940 [facility] Providers Name Role Phone Melissa Salmon Provider Role Unavailable Encounters Encounter Location Date Unknown [place] Fur Buyer Aug 12, 2015 Unknown [place] Fur Buyer January 29, 2016 Unknown [place] Fur Buyer March 11, 2016 Unknown [place] Fur Buyer April 15, 2016 Unknown [place] Fur Buyer Dec 19, 2014 PT/INR 3.0 [place] [employer] Buyer Dec 19, 2014 Unknown [place] Fur Buyer March 23, 2015 Unknown [place] Fur Buyer April 15, 2016 Other [place]aph[place] Fur Buyer Sep 09, 2016 Problems Problem Type Condition [...] End Status Dosage Date Date Doxazosin MEDISPAN [id number] 4 Inactive TAKE ONE Mesylate TABLET BY [...]
[2019-01-07] MEDS ORDERED: NS 0.9% VIAL 10 ML ONE (08:26)
[2019-01-07] MEDS ORDERED: DUOVISC 1 KIT OPTH ONE (08:27)
[2019-01-07] MEDS ORDERED: EPINEPHRINE/PF 1 MG/ML AMP ONE (08:27)
[2019-01-07] MEDS ORDERED: BALANCED SALT IRRIG PLAIN 500 ML BTL IRR ONE (08:27)
[2019-01-07] MEDS ORDERED: LIDOCAINE 2% MPF 5 ML VIAL ONE (09:23)
[2019-01-07] MEDS ORDERED: NA CHLORIDE 0.9% 500 ML ONE (09:23)
[2019-01-07] MEDS: CYCLOPENTOLATE 1% OPTH 2 ML ONE ×3 (09:26→09:44)
[2019-01-07] MEDS: PHENYLEPHRINE 10% OPTH 5ML ONE ×3 (09:26→09:44)
[2019-01-07] MEDS ORDERED: PROPOFOL 200 MG/20 ML VIAL IV ONE (09:38)
[2019-01-07] MEDS: TETRACAINE HCL 0.5% 2ML OPTH ONE ×2 (09:38→09:59)
[2019-01-07] MEDS: BUPIVACAINE 0.25% PF 10 ML VIAL ONE ×2 (09:39→10:00)
[2019-01-07] MEDS: LIDOCAINE 2% MPF 5 ML VIAL ONE ×2 (09:40→10:00)
[2019-01-07] MEDS: MOXIFLOXACIN HCL 10 DROPS/ML **OR USE OPTH ONE ×2 (10:25→10:36)
--- NOTE | 2019-01-07 10:45 | P.BOP ---
Preoperative diagnosis: Nuclear sclerotic, cortical and posterior subcapsular cataract OD Postoperative diagnosis: Same Primary procedure: Phacoemulsification with IOL OD Estimated blood loss: None Anesthesia: Local (Subtenon's infusion with anesthesia for cataract surgery) Complications: None Implants: [id number] +21.0 Transferred to: Other (Day surgery) Condition: Good
[2019-01-07 11:02] VITALS: BP 156/53; TEMP 97; O2SAT 100
--- NOTE | 2019-01-07 21:57 | OP ---
Date of Procedure: 01/07/2019 Surgeon: Blanca Headley MD Anesthesiologist: Breanne Victor CRNA and Krystian Schrader M.D. Preoperative Diagnoses: Nuclear sclerotic cataract, OD; cortical cataract and posterior subcapsular cataract, OD (right eye). Operation Performed: Phacoemulsification with intraocular lens implant, right eye. Anesthesia: Per cataract surgery. Complications: None. Description Of Procedure: In day surgery, the patient was prepped with Betadine and draped. A conju nctival incision was made in the inferior nasal quadrant with David scissors. A sub-Tenon block c onsisting of a 1:1 mixture of 2% Xylocaine and 0.25% bupivacaine was placed through the conjunctival incision with a blunt cannula. A Honan balloon was placed over the eye and the patient was transferr ed to the operating room. In the operating room, the patient was prepped and draped in the usual sterile fashion for ophthalmic surgery. A lid speculum was placed in the right eye. Two paracentesis sites were made superiorly a nd inferiorly in the limbal cornea. Viscoat was placed in the anterior chamber and a crescent blade was used to make a corneal groove and tunnel, and a keratome was used to enter the anterior chamber. Provisc was placed in the anterior chamber and a 360-degree capsulotomy was performed with a cystito me. The lens was hydrodissected with BSS and rotated freely. The lens was removed with a stop and c hop technique. A 5.17 phaco CDE was used to remove the lens. Residual cortex was removed with the i rrigation and aspiration. Provisc was placed in the capsular bag. A SA60WF +21.0 lens was placed in the capsular bag without complications. Irrigation and aspiration were used to remove residual visc oelastic. The paracentesis sites were hydrated with BSS. The wound and paracentesis sites were insp ected and found to be watertight. Vigamox 0.07 cc was placed intracamerally at the end of the proced ure. The eye was irrigated with balanced salt solution. The eye was patched with a soft cotton patc h and Rodriguez metal shield. The patient was returned to day surgery in good condition. Discharge Instructions: Ms. You is discharged to home in good condition and is to follow up with Dr. Headley in the morning. JHL/MODL Voice ID: [id number] Report ID: [id number]
== END 2019-01-07 12:06 | disposition home or self-care (01) ==
LOC: OR 07:42
PROVIDERS: ATTEND Ophthalmology Retina Specialist
PROC: 08RJ3JZ Replacement of Right Lens with Synthetic Substitute, Percutaneous Approach (ICD-10-PCS; principal; 2019-01-07 10:15)
DX: H25.11 Age-related nuclear cataract, right eye (principal); H25.041 Posterior subcapsular polar age-related cataract, right eye; H25.011 Cortical age-related cataract, right eye; H04.123 Dry eye syndrome of bilateral lacrimal glands; H35.30 Unspecified macular degeneration; I10 Essential (primary) hypertension; E03.9 Hypothyroidism, unspecified; E78.00 Pure hypercholesterolemia, unspecified; K21.9 Gastro-esophageal reflux disease without esophagitis; Z87.891 Personal history of nicotine dependence; E66.01 Morbid (severe) obesity due to excess calories; Z68.42 Body mass index [BMI] 45.0-49.9, adult; Z86.73 Personal history of transient ischemic attack (TIA), and cerebral infarction without residual deficits; Z83.518 Family history of other specified eye disorder; Z80.9 Family history of malignant neoplasm, unspecified; Z82.49 Family history of ischemic heart disease and other diseases of the circulatory system
CPT/HCPCS: 66984; J2704; J0171

== ENCOUNTER 2019-02-11 09:35 | Day surgery (SDC) | payer OTHER, MEDICARE ==
--- OUTSIDE RECORDS SUMMARY | 2019-02-11 09:43 | XMS REPORT | Continuity of Care Document ---
:1940 Author Organization Interface Problems Problem Status Onset Classification Date Comments Source Date Reported ISCHEMIC STROKE Active [address] LFLT TRANSFER#[id number] Atrial fibrillation Active Problem 06/17/2017 [place] [facility] Consult Personal history of Active Problem 06/17/2017 [place] transient ischemic Cardiology attack [TIA], and Consult cerebral infarction without residual deficits Palpitations Active Problem 06/17/2017 [place] [facility] Transient cerebral Active Problem 06/17/2017 [place] ischemic attack, Cardiology unspecified Consult Bradycardia, Active Problem 06/17/2017 [place] unspecified Cardiology Consult Personal history of Active Problem 06/17/2017 [place] transient ischemic Cardiology attack , and Consult cerebral infarction without residual deficits History of falling Active Problem 06/17/2017 [place] [facility] Consult Abnormal Active Problem 06/17/2017 [place] electrocardiogram Cardiology [ECG] [EKG] Consult Morbid obesity due Active Problem 06/17/2017 [place] to excess calories Cardiology Consult Arthropathy, Active Problem 06/17/2017 [place] unspecified Cardiology Consult Major depressive Active Problem 06/17/2017 [place] disorder, single Cardiology episode, unspecified Consult Chest pain, Active Problem 06/17/2017 [place] unspecified Cardiology Consult Shortness of breath Active Problem 06/17/2017 [place] [facility] Consult Constipation, Active Problem 06/17/2017 [place] unspecified Cardiology Consult Hypothyroidism, Active Problem 06/17/2017 [place] unspecified Cardiology Consult Hyperlipidemia, Active Problem 06/17/2017 [place] unspecified Cardiology Consult Chronic kidney Active Problem 06/17/2017 [place] disease, unspecified Cardiology Consult Insomnia, Active Problem 06/17/2017 [place] unspecified Cardiology Consult Nonrheumatic mitral Active Problem 06/17/2017 [place] insufficiency Cardiology Consult Paroxysmal atrial Active Problem 06/17/2017 [place] fibrillation [facility]iology Consult 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 Essential Active Problem 06/17/2017 [place] hypertension [facility]iology Consult Chronic kidney Active Problem 06/17/2017 [place] disease, Stage III Cardiology Consult Congestive 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 [place] failure, unspecified Cardiology Consult Hypertension Active Problem 06/17/2017 [place] essential benign Cardiology Consult 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 [place] stenosis of carotid Cardiology artery without Consult mention of cerebral infarction Insomnia, Active Problem 06/17/2017 [place] unspecified Cardiology Consult Mitral valve Active Problem 06/17/2017 [place] disorders Cardiology Consult Other and Active Problem 06/17/2017 [place] unspecified Cardiology hyperlipidemia Consult Unspecified Active Problem 06/17/2017 [place] hypothyroidism Cardiology Consult Obesity, unspecified Active Problem 06/17/2017 [place] [facility] Consult Other malaise and Active Problem 06/17/2017 [place] fatigue [facility]iology Consult Shortness of breath Active Problem 06/17/2017 [place] [facility] Chest pain, Active Problem 06/17/2017 [place] unspecified [facility]iology Consult Chronic diastolic Active Problem 06/17/2017 [place] heart failure Cardiology Consult Unspecified Active Problem 06/17/2017 [place] constipation Cardiology Consult 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 [place] and chronic kidney Cardiology disease with heart Consult failure and stage 1 through stage 4 chronic kidney disease, or unspecified chronic kidney disease Impaired fasting Active Problem 06/17/2017 [place] blood sugar Cardiology Consult Overactive bladder Active Problem 06/17/2017 [place] [facility] Anxiety disorder, Active Problem 06/17/2017 [place] unspecified Cardiology Consult Incontinence without Active Problem 06/17/2017 [place] sensory awareness Cardiology Consult Encounter for Active Problem 06/17/2017 [place] screening for Cardiology diabetes mellitus Consult Retention of urine, Active Problem 06/17/2017 [place] unspecified Cardiology Consult Hypertensive 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 [place] and chronic kidney Cardiology disease, benign, Consult with heart failure and with chronic kidney disease stage I through stage IV, or unspecified Depressive disorder, Active Problem 06/17/2017 [place] not elsewhere Cardiology classified Consult Urinary tract Active Problem 06/17/2017 [place] infection, site not Cardiology specified Consult Unspecified Active Problem 06/17/2017 [place] arthropathy, site Cardiology unspecified Consult Frequency of Active Problem 06/17/2017 [place] micturition Cardiology Consult Morbid obesity Active Problem 06/17/2017 [place] [facility] Female genuine Active Problem 06/17/2017 [place] stress incontinence Cardiology Consult Nonspecific abnormal Active Problem 06/17/2017 [place] electrocardiogram Cardiology (EKG) Consult Palpitations Active Problem 06/17/2017 [place] [facility] Consult Other specified Active Problem 06/17/2017 [place] cardiac dysrhythmias Cardiology Consult Upper respiratory Active Problem 06/17/2017 [place] tract Cardiology hypersensitivity Consult reaction, site unspecified Unspecified Active Problem 06/17/2017 [place] transient cerebral Cardiology ischemia Consult Personal history of Active Problem 06/17/2017 [place] fall Cardiology Consult Acute upper Active Problem 06/17/2017 [place] respiratory Cardiology infections of Consult unspecified site Acid reflux disease Resolved Problem 11/28/2014 [facility] High cholesterol Resolved Problem 11/28/2014 [facility] Hyperlipidemia Resolved Problem 11/28/2014 [facility] Hypertension Resolved Problem 11/28/2014 [facility] Hypothyroidism Resolved Problem 11/28/2014 [facility] CVA Active [facility] Medications Medication Details Route Status Patient Ordering Order Source Instructions Provider Date Eliquis 1 tablet Orally Active 5 MG Orally [facility] [place] twice a day 2016 Cardiology Consult Edarbyclor 1 tablet Orally Active 40-25 MG [facility] [place] Orally Once a 2017 Cardiology day Consult Edarbyclor 1 tablet Orally Active 40-25 MG [facility] [place] Orally Once a 2016 Cardiology day Consult Dofetilide 1 capsule Orally Active 500 MCG [facility] [place] Orally Twice 2017 Cardiology a day Consult Cipro 1 tablet Orally Active 500 MG Orally [facility] [place] Twice a day 2015 Cardiology Consult Warfarin 5 mg, 1 tab, Inactive [facility] Route: PO, 2014 Medical Drug form: Center TAB, Daily, Dosing Weight 114.318, kg, Start date: 11/26/14 12:03:00, Duration: 1 doses or times, Stop date: 11/26/14 12:03:00Notes : Nurse to ensure documentation of patient education per anticoagulati on policy. Avoid large intake of vitamin-K containing foods diet. (Same As: Coumadin) valsartan 40 mg 40 mg=1 tab, Active 11/26[facility] oral tablet PO, Q12H, # 2015 Medical 60 tab, 3 Center Refill(s) atorvastatin 40 40 mg=1 tab, Active 11/26[facility] [place] mg oral tablet PO, Bedtime, 2015 Medical # 30 tab, 3 Center Refill(s) clopidogrel 75 mg 75 mg=1 tab, Active 11/26[facility] oral tablet PO, Daily, # 2015 Medical 30 tab, 0 Center Refill(s) warfarin 5 mg 5 mg, PO, Active 11/26[facility] oral tablet Daily, # 2 2015 Medical tab, 0 Center Refill(s) Atenolol 25 MG 12.5 mg=0.5 Active 11/26[facility] Oral Tablet tab, PO, 2015 Medical Daily, 0 Center Refill(s) valsartan 40 mg, 1 tab, Inactive [place] Route: PO, 2014 Medical Drug form: [place] TAB, Q12H, Dosing Weight 114.318, kg, Start date: 11/26/14 9:00:00, Duration: 30 day, Stop date: 12/25/14 21:00:00Notes : Same as [place] Protonix 40 mg, 1 tab, No Longer [place] Route: PO, Active 2014 Medical Drug form: [place] ECTAB, Before Dinner, Start date: 11/25/14 16:30:00, Duration: 30 day, Stop date: 12/24/14 16:30:00Notes : Tablet should not be chewed or crushed. (Same as: Protonix) Atenolol 12.5 mg, 0.5 No Longer [place] tab, Route: Active 2014 Medical PO, Drug Center form: TAB, Daily, Dosing Weight 114.318, kg, Start date: 11/25/14 9:00:00, Duration: 30 day, Stop date: 12/24/14 9:00:00Notes: (Same As:Tenormin) valsartan 320 mg, No Longer [facility] Route: PO, Active 2014 Medical Drug form: [place] TAB, Daily, Dosing Weight 114.318, kg, Start date: 11/25/14 9:00:00, Duration: 30 day, Stop date: 12/24/14 9:00:00 Thyroxine 100 No Longer [facility] microgram, 1 Active 2014 Medical tab, Route: [place] PO, Drug form: TAB, Q630AM, Dosing Weight 114.318, kg, Start date: 11/25/14 6:30:00, Duration: 30 day, Stop date: 12/24/14 6:30:00Notes: Take 1 hour before or 2 hours after meal; Enteral feeds may interefere with the absorption of this medication. (Same as:Levothroid , Synthroid) heparin, porcine 7,500 unit, No Longer [place] 1.5 mL, Active 2014 Medical Route: SUB-Q, [place] Drug form: INJ, Q8H, Dosing Weight 114.318, kg, Start date: 11/24/14 22:00:00, Duration: 30 day, Stop date: 12/24/14 16:00:00Notes : porcine heparin Plavix 75 mg, 1 tab, No Longer [facility] Route: PO, Active 2014 Medical Drug form: Center TAB, Daily, Dosing Weight 114.318, kg, Start date: 11/24/14 22:00:00, Duration: 30 day, Stop date: 12/24/14 9:00:00Notes: (Same As: Plavix) Tylenol 650 mg, 2 No Longer [facility] tab, Route: Active 2014 Medical PO, Drug Center form: TAB, Q6H, Dosing Weight 114.318, kg, PRN Pain, Start date: 11/24/14 21:16:00, Duration: 30 day, Stop date: 12/24/14 21:15:00Notes : Do not exceed 4 gm/day. (Same as: Tylenol) atorvastatin 40 mg, 1 tab, No Longer [facility] Route: PO, Active 2014 Medical Drug form: Center TAB, Bedtime, kg, Start date: 11/24/14 21:00:00, Duration: 30 day, Stop date: 12/23/14 21:00:00Notes : (Same as: Lipitor) Bupropion 150 mg, 1 No Longer [facility] tab, Route: Active 2014 Medical PO, Drug Center form: ERTAB, BID, Dosing Weight 114.318, kg, Start date: 11/24/14 17:00:00, Duration: 30 day, Stop date: 12/24/14 9:00:00Notes: (Do not crush) (Same As: Wellbutrin SR) valsartan 40 mg, Route: Inactive [facility] PO, BID, 2014 Medical Dosing Weight Center 114.318, kg, Start date: 11/24/14 17:00:00, Duration: 30 day, Stop date: 12/24/14 9:00:00 Triiodothyronine 10 microgram, No Longer [facility] 2 tab, Route: Active 2014 Medical PO, Drug Center form: TAB, QAM, Dosing Weight 114.318, kg, Priority: NOW, Start date: 11/24/14 15:35:00, Duration: 30 day, Stop date: 12/24/14 9:00:00Notes: (Same as: Cytomel) Atenolol 100 MG 50 mg=0.5 No Longer [facility] Oral Tablet tab, PO, BID, Active 2015 Medical # 30 tab, 0 Center Refill(s) pravastatin 40 mg 40 mg=1 tab, No Longer [facility] oral tablet PO, Bedtime, Active 2015 Medical # 30 tab, 0 Center Refill(s) Furosemide 40 MG 40 mg=1 tab, No Longer [place] Oral Tablet PO, Daily, # Active 2015 Medical [Lasix] 30 tab, 0 Center Refill(s) spironolactone 25 25 mg=1 tab, No Longer [facility] mg oral tablet PO, Daily, # Active 2014 Medical 60 tab, 0 Center Refill(s) Potassium 20 mEq=1 tab, No Longer [place] Chloride 20 MEQ PO, Daily, 0 Active 2015 Medical Extended Release Refill(s) Center Tablet omeprazole 40 mg 40 mg=1 cap, Active [place] oral delayed PO, Daily, # 2015 Medical release capsule 30 cap, 0 Center Refill(s) Metolazone 5 MG 5 mg=1 tab, No Longer [facility] Oral Tablet PO, Daily, # Active 2015 Medical 30 tab, 0 Center Refill(s) liothyronine 5 10 Active [facility] mcg oral tablet microgram=2 2014 Medical tab, PO, QAM, Center # 30 tab, 0 Refill(s) Fenofibrate 160 160 mg=1 tab, No Longer [facility] MG Oral Tablet PO, Daily, # Active 2015 Medical 30 tab, 0 Center Refill(s) Zolpidem tartrate 10 mg=1 tab, Active [place] 10 MG Oral Tablet PO, Bedtime, 2015 Medical [Ambien] for sleep, 0 Center Refill(s) buPROPion 150 150 mg=1 tab, Active [facility] mg/24 hours oral PO, BID, # 30 2015 Medical extended release tab, 0 Center tablet Refill(s) Albuterol 0.09 2 puff, No Longer [facility] MG/ACTUAT Metered INHALATION, Active 2015 Medical Dose Inhaler Q6H, as Center [Ventolin] needed for wheezing, # 17 gm, 0 Refill(s) levothyroxine 100 100 Active [place] mcg (0.1 mg) oral microgram=1 2014 Medical tablet tab, PO, QA, Center # 30 tab, 0 Refill(s) doxazosin 4 mg 4 mg=1 tab, Active [facility] oral tablet PO, Daily, # 2015 Medical 30 tab, 0 Center Refill(s) valsartan 320 mg 320 mg=1 tab, No Longer [facility] oral tablet PO, Daily, # Active 2014 Medical 30 tab, 0 Center Refill(s) Triiodothyronine 5 microgram, Inactive [facility] 1 tab, Route: 2014 Medical PO, Drug Center form: TAB, Daily, Dosing Weight 114.318, kg, Start date: 11/24/14 14:09:00, Duration: 30 day, Stop date: 12/24/14 9:00:00Notes: (Same as: Cytomel) Reglan 5 mg, 1 mL, Inactive [facility] Route: IV, 2014 Medical Drug form: [place] INJ, ONCE, Dosing Weight 114.318, kg, Start date: 11/24/14 11:44:00, Stop date: 11/24/14 11:44:00Notes : (Same as: Reglan) Magnesium Sulfate 2 gm, 50 mL, Inactive [facility] Route: IVPB, 2014 Medical Drug form: [place] INJ, ONCE, Dosing Weight 114.318, kg, Total dose=2 gm, Start date: 11/24/14 11:27:00, Duration: 1 doses or times, Stop date: 11/24/14 11:27:00 pneumococcal 0.5 ml, Inactive [facility] capsular Route: IM, 2014 Medical polysaccharide Drug Form: [place] type 1 vaccine / INJ, Daily, pneumococcal Start date: capsular 11/24/14 polysaccharide 9:00:00, Stop type 10A vaccine date: / pneumococcal 11/24/14 capsular 23:59:00Notes polysaccharide : (Same as: type 11A vaccine Pneumovax 23) / pneumococcal Refrigerate capsular polysaccharide type 12F vaccine / pneumococcal capsular polysacchar Saline Flush 0.9% 10 ml, Route: No Longer [facility] IVP, Drug Active 2014 Medical Form: INJ, Center kg, Q12H, Start date: 11/24/14 9:00:00, Duration: 30 day, Stop date: 12/23/14 21:00:00Notes : (Same as: BD Posiflush) Versed 0.5 mg, 0.5 Inactive [facility] mL, Route: 2014 Medical IVP, Drug Center form: INJ, ONCE, Dosing Weight 114.318, kg, Start date: 11/24/14 8:31:00, Stop date: 11/24/14 8:31:00Notes: (Same as: Versed) Pravastatin 40 mg=1 tab, Inactive [facility] Sodium 40 MG Oral PO, Bedtime, 2014 Medical Tablet # 30 tab, 0 Center [Pravachol] Refill(s) aspirin 0 Refill(s) Inactive [facility] 2014 Medical Center Fenofibrate 160 160 mg=1 tab, Inactive [facility] MG Oral Tablet PO, Daily, # 2015 Medical 30 tab, 0 Center Refill(s) Atenolol 0 Refill(s) Inactive [facility] 2014 [facility] valsartan 320 mg 320 mg=1 tab, Inactive [facility] oral tablet PO, Daily, # 2015 Medical 30 tab, 0 Center Refill(s) Potassium 0 Refill(s) Inactive [facility] Chloride 20 MEQ 2014 Medical Extended Release Center Tablet Metolazone 5 MG 5 mg=1 tab, Inactive [facility] Oral Tablet PO, Daily, # 2015 Medical 30 tab, 0 Center Refill(s) Furosemide 40 MG 40 mg=1 tab, Inactive [facility] Oral Tablet PO, Daily, # 2015 Medical [Lasix] 30 tab, 0 Center Refill(s) liothyronine 5 5 microgram=1 Inactive [facility] mcg oral tablet tab, PO, 2014 Medical Daily, # 30 Center tab, 0 Refill(s) Omeprazole 0 Refill(s) Inactive [facility] 2014 Medical Center spironolactone 25 0 Refill(s) Inactive [facility] mg oral tablet 2014 [facility] Zofran 4 mg, 2 mL, Inactive [facility] Route: IVP, 2014 Medical Drug form: Center INJ, ONCE, Dosing Weight 114.318, kg, Start date: 11/24/14 7:08:00, Stop date: 11/24/14 7:08:00Notes: (Same as: Zofran) Tylenol 650 mg, 2 Inactive [facility] tab, Route: 2015 Medical PO, Drug Center form: TAB, Q6H, kg, PRN Pain 1-3/Temp > 99.5 F, Start date: 11/24/14 0:48:00, Stop date: 12/24/14 0:47:00Notes: Do not exceed 4 gm/day. (Same as: Tylenol) Sodium Chloride 1,000 mL, No Longer [facility] 0.154 MEQ/ML Rate: 75 Active 2014 Medical Injectable ml/hr, Infuse Center Solution over: 13.3 hr, Route: IV, Total Volume: 1,000, Start date: 11/23/14 23:06:00, Duration: 30 day, Stop date: 12/23/14 23:05:00 Saline Flush 0.9% 10 ml, Route: No Longer [facility] IVP, Drug Active 2014 Medical Form: INJ, Center kg, PRN, PRN Line Flush, Start date: 11/23/14 22:58:00, Duration: 30 day, Stop date: 12/23/14 22:57:00Notes : (Same as: BD Posiflush) Acetaminophen 650 mg, 2 No Longer [facility] tab, Route: Active 2014 Medical PO, Drug [...] Updated Comments Source pneumococcal 11/24/2014 Not Given [facility] 23-valent vaccine Medical Center Results Order Name Results Value Reference Date Interpretation Comments Source Range CHEM PANEL Magnesium Lvl 2.1 mg/dL 1.8 - 2.4 11/26 [facility] CHEM PANEL Phosphorus 2.8 mg/dL 2.5 - 4.5 11/26 2014 [facility] CHEM PANEL eGFR 40 11/26 1Result Comment: The eGFR is calculated using the CKD-EPI formula. In most young, healthy individuals the eGFR will be >90 mL/ min/1.73m2. The eGFR declines with age. An eGFR of 60-89 may be normal in [facility] mL/min/1.7 some populations, particularly the elderly, for whom the CKD-EPI formula has not been extensively validated. Use of the eGFR is not recommended in the following populations: [address] Individuals with unstable creatinine concentrations, including [...] values reflect the clinical guidelines of the [place] [employer]. [facility] CHEM PANEL BUN 18 mg/dL 7 - 22 11/26 [facility] CHEM PANEL Creatinine 1.3 mg/dL 0.5 - 1.4 11/26 [facility] CHEM PANEL Sodium Lvl 136 meq/L 135 - 145 11/26 [facility] CHEM PANEL Chloride Lvl 102 meq/L 95 - 109 11/26 [facility] CHEM PANEL Potassium Lvl 3.5 meq/L 3.5 - 5.1 11/26 [facility] CHEM PANEL Calcium Lvl 9.0 mg/dL 8.5 - 10.5 11/26 [facility] CHEM PANEL CO2 25 meq/L 24 - 32 11/26 [facility] CHEM PANEL AGAP 12.5 meq/L 10.0 - 11/26 20.0 [facility] HEMATOLOGY RDW 13.1 % 11.5 - 11/26 14.5 /2014 [facility] HEMATOLOGY MCH 32.4 pg 27.0 - 02/ 31.0 /2014 [facility] HEMATOLOGY MCV 93.5 fL 80.0 - 02 98.0 /2014 [facility] HEMATOLOGY MCHC 34.6 g/dL 32.0 - 02/ 36.0 /2014 [facility] HEMATOLOGY Hct 33.6 % 36.0 - / 48.0 /2014 [facility] HEMATOLOGY Hgb 11.6 g/dL 12.0 - 02 16.0 /2014 [facility] HEMATOLOGY RBC 3.60 M/CMM 4.20 - 02 5.40 /2014 [facility] HEMATOLOGY WBC 4.6 K/CMM 3.7 - 10.4 11/26 [facility] HEMATOLOGY MPV 8.3 fL 7.4 - 10.4 11/[address] [place] [address] HEMATOLOGY Platelet 149 K/CMM 133 - [address] HEMATOLOGY Segs 62.3 % 45.0 - 02 [facility] 75.0 [facility] HEMATOLOGY Lymphocytes # 1.2 K/CMM 1.0 - 5.5 02 [facility] HEMATOLOGY Monocytes # 0.4 K/CMM 0.0 - 0.[address] [place] [address] HEMATOLOGY Eosinophils 3.0 % 0.0 - 4.0 02 [facility] HEMATOLOGY Lymphocytes 26.2 % 20.0 - 11/26 [facility] 40.0 [facility] HEMATOLOGY Segs-Bands # 2.9 K/CMM 1.5 - 8.1 11/[address] HEMATOLOGY Basophils 0.5 % 0.0 - 1.0 02/ [facility] HEMATOLOGY Monocytes 8.0 % 2.0 - 12.0 11/26 [facility] [address] [place] [address] HEMATOLOGY Eosinophils # 0.1 K/CMM 0.0 - 0.5 11/[address] CHEM PANEL Phosphorus 3.1 mg/dL 2.5 - 4.5 11/[address] CHEM PANEL eGFR 34 02 2Result Comment: The eGFR is calculated using the CKD-EPI formula. In most young, healthy individuals the eGFR will be >90 mL/ min/1.73m2. The eGFR declines with age. An eGFR of 60-89 may be normal in [facility] mL/min/1.7 /2014 some populations, particularly the elderly, for whom the CKD-EPI formula has not been extensively validated. Use of the eGFR is not recommended in the following populations: [address] Individuals with unstable creatinine concentrations, including [...] CO2 25 meq/L 24 - 32 11/25 [facility] CHEM PANEL AGAP 12.8 meq/L 10.0 - 11/25 20.0 [facility] CHEM PANEL Calcium Lvl 8.7 mg/dL 8.5 - 10.5 11/25 2014 [facility] CHEM PANEL Chloride Lvl 104 meq/L 95 - 109 11/25 2014 [facility] CHEM PANEL BUN 23 mg/dL 7 - 22 11/25 [facility] CHEM PANEL Sodium Lvl 138 meq/L 135 - 145 11/25 [facility] CHEM PANEL Glucose Lvl 82 mg/dL 70 - 99 11/25 5Interpretive Data: Adult reference range values reflect the clinical guidelines of the [place] [employer]. [facility] CHEM PANEL Creatinine 1.5 mg/dL 0.5 - 1.4 11/25 [facility] CHEM PANEL Potassium Lvl 3.8 meq/L 3.5 - 5.1 11/25 [facility] CHEM PANEL Magnesium Lvl 2.7 mg/dL 1.8 - 2.4 11/25 [facility] HEMATOLOGY Segs 63.1 % 45.0 - 11/25 75.0 [facility] HEMATOLOGY Lymphocytes 27.1 % 20.0 - 02 40.0 [facility] HEMATOLOGY Monocytes 7.2 % 2.0 - 12.0 11/25 2014 [facility] HEMATOLOGY Eosinophils # 0.1 K/CMM 0.0 - 0.5 11/25 [facility] HEMATOLOGY Eosinophils 2.2 % 0.0 - 4.0 11/25 [facility] HEMATOLOGY Basophils 0.4 % 0.0 - 1.0 11/25 [facility] HEMATOLOGY Segs-Bands # 3.1 K/CMM 1.5 - 8.1 11/25 [facility] HEMATOLOGY Monocytes # 0.3 K/CMM 0.0 - 0.8 11/25 [facility] HEMATOLOGY Lymphocytes # 1.3 K/CMM 1.0 - 5.5 11/25 [facility] HEMATOLOGY MPV 8.5 fL 7.4 - 10.4 11/25 [facility] HEMATOLOGY MCH 31.6 pg 27.0 - 11/25 31.0 [facility] HEMATOLOGY MCV 93.4 fL 80.0 - 11/25 [facility] 98.0 /2014 [facility] HEMATOLOGY Hct 33.2 % 36.0 - 11/25 [facility] 48.0 /2014 [facility] HEMATOLOGY Platelet 151 K/CMM 133 - 450 11/25 [facility] HEMATOLOGY RDW 13.1 % 11.5 - 11/25 14.5 [facility] HEMATOLOGY MCHC 33.8 g/dL 32.0 - 11/25 36.0 /2014 [facility] HEMATOLOGY Hgb 11.2 g/dL 12.0 - 02 16.0 [facility] HEMATOLOGY RBC 3.56 M/CMM 4.20 - 11/25 5.40 /2014 [facility] HEMATOLOGY WBC 4.9 K/CMM 3.7 - 10.4 11/25 [facility] HEMATOLOGY INR 1.14 0.85 - 11/25 7Interpretive Data: RECOMMENDED RANGES FOR PROTIME INR: [facility] 1.17 2.0-3.0 for most medical and surgical thromboembolic states. Medical 2.5-3.5 for artificial heart valves and recurrent embolism. Center INR SHOULD BE USED ONLY FOR PATIENTS ON STABLE ANTICOAGULANT THERAPY. HEMATOLOGY PTT 28.5 s 22.9 - 02 9Interpretive [facility] 35.8 /2014 Data: Heparin [facility] Range: 57 - 92 Seconds HEMATOLOGY PT 14.7 s 12.0 - 02/03 [facility] 14.7 /2014 [facility] THYROID TSH 3.190 0.360 - 11/25 [facility] PANEL uIU/mL 3.740 /2014 Medical Center Neck wo Neck wo EXAM: MRI BRAIN 11/24 - [facility] contrast contrast MRA /2014 - Medical MRA EXAM: MRA BRAIN This report was dictated by a Test Development Engineer/ Fellow. I have personally reviewed the [...] caliber. No aneurysm is identified. Right type OVEN HEATER HELPER is present, a normal variant. There is [...] Brain wo EXAM: MRI BRAIN 11/24 - [facility] contrast contrast MRA /2014 - Medical MRA EXAM: MRA BRAIN This report was dictated by a Test Development Engineer/ Fellow. I have personally reviewed the [...] caliber. No aneurysm is identified. Right type OVEN HEATER HELPER is present, a normal variant. There is [...] Brain wo EXAM: MRI BRAIN 11/24 - [facility] contrast contrast MRI /2014 - Medical MRI EXAM: MRA BRAIN This report was dictated by a Test Development Engineer/ Fellow. I have personally reviewed the [...] caliber. No aneurysm is identified. Right type OVEN HEATER HELPER is present, a normal variant. There is [...] AND UA <=1.0 0.1 - 1.0 11/24 [facility] Urobilinogen mg/dL /[address] [place] [address] URINE AND UA Renal Epi 7 /LPF <=0 /LPF 11/[address] URINE AND UA Sq Epi Moderate Few /LPF 11/24 [facility] /LPF /[address] [place] [address] URINE AND UA WBC 2 /HPF 0 - 5 11/[address] URINE AND UA Nitrite Negative Negative 11/[address] (11/24/14 2:06 AM) [place] URINE AND UA Leuk Est Negative Negative 11/[address] (11/24/14 2:06 AM) [place] URINE AND UA Blood Negative Negative 11/[address] (11/24/14 2:06 AM) [place] URINE AND UA Protein Negative Negative 11/24 [facility] mg/dL mg/dL /2014 [facility] URINE AND UA pH 6.5 5.0 - 8.0 11/[address] URINE AND UA Glucose Negative Negative 11/24 [facility] mg/dL mg/dL /[address] [place] [address] URINE AND UA Bili Negative Negative 11/24 [address] [place] (11/24/14 2:06 AM) URINE AND UA Ketones Negative Negative 11/24 [facility] mg/dL mg/dL /2014 [facility] URINE AND UA Spec Grav 1.009 <=1.030 11/24 [facility] URINE AND UA Turbidity Clear Clear 11/24 [facility] (11/24/14 2:06 AM) [place] URINE AND UA Color Yellow Yellow 11/24 [facility] *NA* [place] (11/24/14 2:06 AM) CHEM PANEL A/G Ratio 1.2 0.7 - 1.6 11/24 [facility] CHEM PANEL Globulin 3.2 g/dL 2.0 - 4.0 11/24 [facility] CHEM PANEL B/C Ratio 22 6 - 25 11/24 [facility]2014 [facility] CHEM PANEL AGAP 9.8 meq/L 10.0 - 11/24 [facility] 20.0 [facility] CHEM PANEL eGFR 29 11/24 3Result Comment: The eGFR is calculated using the CKD-EPI formula. In most young, healthy individuals the eGFR will be >90 mL/ min/1.73m2. The eGFR declines with age. An eGFR of 60-89 may be normal in [facility] mL/min/1.7 some populations, particularly the elderly, for whom the CKD-EPI formula has not been extensively validated. Use of the eGFR is not recommended in the following populations: [address] Individuals with unstable creatinine concentrations, including [...] values reflect the clinical guidelines of the [place] [employer]. [facility] CHEM PANEL Calcium Lvl 8.7 mg/dL 8.5 - 10.5 11/24 [facility] CHEM PANEL ALT 29 unit/L 0 - 65 11/24 [facility] CHEM PANEL AST 17 unit/L 0 - 37 11/[address] CHEM PANEL Albumin Lvl 3.7 g/dL 3.5 - 5.0 11/[address] CHEM PANEL Total Protein 6.9 g/dL 6.4 - 8.4 11/[address] CHEM PANEL CO2 28 meq/L 24 - 32 11/[address] CHEM PANEL Chloride Lvl 103 meq/L 95 - 109 11/[address] CHEM PANEL Potassium Lvl 3.8 meq/L 3.5 - 5.1 11/[address] CHEM PANEL Sodium Lvl 137 meq/L 135 - 145 11/[address] CHEM PANEL Creatinine 1.7 mg/dL 0.5 - 1.4 11/[address] CHEM PANEL BUN 37 mg/dL 7 - 22 11/[address] CHEM PANEL Alk Phos 37 unit/L 39 - 136 11/[address] CHEM PANEL Bili Total 0.4 mg/dL 0.2 - 1.3 11/[address] HEMATOLOGY Monocytes # 0.4 K/CMM 0.0 - 0.8 11/[address] HEMATOLOGY Lymphocytes # 1.1 K/CMM 1.0 - 5.5 11/[address] HEMATOLOGY Eosinophils # 0.1 K/CMM 0.0 - 0.5 11/[address] HEMATOLOGY Segs 70.9 % 45.0 - 02 [facility] 75.0 /2014 [facility] HEMATOLOGY Monocytes 6.7 % 2.0 - 12.0 11/[address] HEMATOLOGY Lymphocytes 19.7 % 20.0 - 02/ [facility] 40.0 /2014 [facility] HEMATOLOGY Eosinophils 2.3 % 0.0 - 4.[address] HEMATOLOGY Segs-Bands # 4.0 K/CMM 1.5 - 8.1 11/[address] HEMATOLOGY Basophils 0.4 % 0.0 - 1.0 11/[address] HEMATOLOGY PTT 28.2 s 22.9 - 02/ 10Interpretiv [facility] 35.8 /2015 e Data: [facility] Therapeutic Range: 57 - 92 Seconds HEMATOLOGY PT 13.9 s 12.0 - 11/24 [facility] 14.7 /2014 [facility] HEMATOLOGY INR 1.07 0.85 - 11/24 8Interpretive Data: RECOMMENDED RANGES FOR PROTIME INR: [facility] 1.17 2.0-3.0 for most medical and surgical thromboembolic states. Medical 2.5-3.5 for artificial heart valves and recurrent embolism. Center INR SHOULD BE USED ONLY FOR PATIENTS ON STABLE ANTICOAGULANT THERAPY. HEMATOLOGY MPV 8.8 fL 7.4 - 10.4 11/24 [facility] HEMATOLOGY WBC 5.7 K/CMM 3.7 - 10.4 11/24 [facility] HEMATOLOGY MCV 94.9 fL 80.0 - 11/24 [facility] 98.0 [facility] HEMATOLOGY RBC 3.73 M/CMM 4.20 - 11/24 [facility] 5.40 [facility] HEMATOLOGY RDW 13.3 % 11.5 - 11/24 [facility] 14.5 /2014 [facility] HEMATOLOGY Hgb 12.1 g/dL 12.0 - 11/24 [facility] 16.0 [facility] HEMATOLOGY Hct 35.3 % 36.0 - 11/24 [facility] 48.0 [facility] HEMATOLOGY Platelet 158 K/CMM 133 - 450 11/24 [facility] HEMATOLOGY MCHC 34.2 g/dL 32.0 - 11/24 [facility] 36.0 [facility] HEMATOLOGY MCH 32.5 pg 27.0 - 11/24 [facility] 31.0 [facility] LIPIDS CHD Risk 2.81 3.90 - 11/24 [facility] 5.80 [facility] LIPIDS VLDL 26 11/24 [facility] LIPIDS LDL 59 mg/dL <=99 mg/dL 11/24 [facility] (Calculated) [facility] LIPIDS Trig 128 mg/dL <=149 11/24 [facility] mg/dL [facility] LIPIDS HDL 47 mg/dL >=61 mg/dL 11/24 [facility] LIPIDS Chol 132 mg/dL <=199 11/24 [facility] mg/dL [facility] SPECIAL Hgb A1C 5.6 % <=5.6 % 11/24 [facility] CHEMISTRY [facility] Vital Signs Vital Sign Value Date Comments Source Respitory Rate 16 11/26/2014 [facility] Systolic (mm Hg) 172 11/26/2014 [facility] Diastolic (mm Hg) 79 11/26/2014 [facility] Heart Rate 57 11/26/2014 [facility] Temperature Oral (F) 97.5 F 11/26/2014 [facility] Temperature Oral (F) 97.5 F 11/26/2014 [facility] Heart Rate 69 11/26/2014 [facility] Diastolic (mm Hg) 79 11/26/2014 [facility] Respitory Rate 18 11/26/2014 [facility] Systolic (mm Hg) 166 11/26/2014 [facility] Respitory Rate 16 11/26/2014 [facility] Systolic (mm Hg) 157 11/26/2014 [facility] Diastolic (mm Hg) 66 11/26/2014 [facility] Heart Rate 65 11/24/2014 [facility] Weight 114.318 11/24/2014 [facility] BMI Calculated 43.26 11/24/2014 [facility] Height 162.56 cm 11/24/2014 [facility] Encounters Location Location Encounter Encounter Reason Attending ADM DC Status Source Details Type Number For Provider Date Date Visit [facility] [id number] Arnaldocooper Viky 11/24 11/26 [facility] /2014 [facility] PT/INR 3.0 [id number] 12/19 12/19 [facility] [id number]- /2014 [facility] [id number] [place] [facility] [place] PT/INR 3.0 [id number] 12/19 12/19 [facility] [id number]- /2014 [facility] [id number] [facility] [place] PT/INR 3.0 [id number] 12/19 12/19 [facility] [id number]- /2014 [facility] [id number] [facility] [place] PT/INR 3.0 [id number] 12/19 12/19 [facility] [id number]- /2014 [facility] [id number] y Consult [place] Unknown [id number] 12/19 12/19 [facility] [id number]- /2014 [facility] [id number] [facility] [place] Unknown [id number] 12/19 12/19 [facility] [id number]- /2014 [facility] [id number] [facility] [place] Unknown [id number] 12/19 12/19 [facility] [id number]- /2014 [facility] [id number] y Consult [place] Unknown [id number] 12/19 12/19 [facility] [id number]- /2014 [facility] [id number] [facility] [place] PT/INR 3.0 [id number] 12/19 12/19 [facility] [id number]- /2014 [facility] [id number] [facility] [place] PT/INR 3.0 [id number] 12/19 12/19 [facility] [id number]- /2014 [facility] [id number] [facility] [place] Unknown [id number] 12/19 12/19 [facility] [id number]- /2014 [facility] [id number] [facility] Consult [place] Unknown [id number] 12/19 12/19 [facility] [id number]- /2014 [facility] [id number] y Consult [place] Unknown [id number] 03/23 03/23 [facility] [id number]- /2014 [facility] [id number] [facility] [place] Unknown [id number] 03/23 03/23 [facility] [id number]- /2014 [facility] [id number] [facility] [place] Unknown [id number] 03/23 03/23 [facility] [id number]- /2014 [facility] [id number] [facility] Consult [place] Unknown [id number] 03/23 03/23 [facility] [id number]- /2014 [facility] [id number] [facility] [place] Unknown [id number] 03/23 03/23 [facility] [id number]- /2014 [facility] [id number] [facility] Consult [place] Unknown [id number] 03/23 03/23 [facility] [id number]- /2014 [facility] [id number] y Consult [place] Unknown [id number] 08/12 08/12 [facility] [id number]- /2014 [facility] [id number] y Consult [place] Unknown [id number] 08/12 08/12 [facility] [id number]- /2014 [facility] [id number] y Consult [place] Unknown [id number] 08/12 08/12 [facility] [id number]- /2014 [facility] [id number] [facility] Consult [place] Unknown [id number] 08/12 08/12 [facility] [id number]- /2014 [facility] [id number] [facility] Consult [place] Unknown [id number] 08/12 08/12 [facility] [id number]- /2014 [facility] [id number] [facility] Consult [place] Unknown [id number] 08/12 08/12 [facility] [id number]- /2014 [facility] [id number] [facility] Consult [place] Unknown [id number] 01/28 01/28 [facility] [id number]- /2015 [facility] [id number] [facility] Consult [place] Unknown [id number] 01/28 01/28 [facility] [id number]- /2015 [facility] [id number] y Consult [place] Unknown [id number] 01/28 01/28 [facility] [id number]- /2015 [facility] [id number] y Consult [place] Unknown [id number] 01/28 01/28 [facility] [id number]- /2015 [facility] [id number] [facility] Consult [place] Unknown [id number] 01/28 01/28 [facility] [id number]- /2015 [facility] [id number] y Consult [place] Unknown [id number] 01/28 01/28 [facility] [id number]- /2015 [facility] [id number] [facility] Consult [place] Unknown [id number] 03/11 03/11 [facility] [id number]- /2015 [facility] [id number] y Consult [place] Unknown [id number] 03/11 03/11 [facility] [id number]- /2015 [facility] [id number] y Consult [place] Unknown [id number] 03/11 03/11 [facility] [id number]- /2015 [facility] [id number] [facility] Consult [place] Unknown [id number] 03/11 03/11 [facility] [id number]- /2015 [facility] [id number] [facility] Consult [place] Unknown [id number] 03/11 03/11 [facility] [id number]- /2015 [facility] [id number] y Consult [place] Unknown [id number] 04/15 04/15 [facility] [id number]- /2015 [facility] [id number] [facility] Consult [place] Unknown [id number] 04/15 04/15 [facility] [id number]- /2015 [facility] [id number] y Consult [place] Unknown [id number] 04/15 04/15 [facility] [id number]- /2015 [facility] [id number] y Consult [place] Unknown [id number] 04/15 04/15 [facility] [id number]- /2015 [facility] [id number] y Consult [place] Unknown [id number] 04/15 04/15 [facility] [id number]- /2015 [facility] [id number] y Consult [place] Unknown [id number] 04/15 04/15 [facility] [id number]- /2015 [facility] [id number] y Consult [place] Unknown [id number] 04/15 04/15 [facility] [id number]- /2015 [facility] [id number] y Consult [place] Unknown [id number] 04/15 04/15 [facility] [id number]- /2015 [facility] [id number] y Consult [place] Other [id number] 09/09 09/09 [facility] [id number]- /2015 [facility] [id number] [facility] [place] Other [id number] 09/09 09/09 [facility] [id number]- /2015 [facility] [id number] y Consult [place] Unknown [id number] 12/20 12/20 [facility] [id number]- /2016 [facility] [id number] y Consult Procedures Procedure Code Date Perfomer Comments Source Knee replacement [id number] [facility]
--- OUTSIDE RECORDS SUMMARY | 2019-02-11 09:44 | XMS REPORT ---
:1940 Author Organization [employer] Care Team Providers Name Role Phone Melissa Salmon Provider Role Unavailable Encounters Encounter Location Date Unknown [place] [employer] Service Person Aug 12, 2015 Unknown [place] [employer] Service Person January 29, 2016 Unknown [place] [employer] Service Person March 11, 2016 Unknown [place] [employer] Service Person Dec 19, 2014 PT/INR 3.0 [place] [employer] Dec 19, 2014 Unknown [place] [employer] Person March 23, 2015 Problems Problem Type Condition [...]
--- OUTSIDE RECORDS SUMMARY | 2019-02-11 09:44 | XMS REPORT ---
:1940 Author Organization [employer] Care Team Providers Name Role Phone Melissa Salmon Provider Role Unavailable Encounters Encounter Location Date Unknown [place] [employer] Aug 12, 2015 Unknown [place] [employer] January 29, 2016 Unknown [place] [employer] Dec 19, 2014 PT/INR 3.0 [place] [employer] Dec 19, 2014 Unknown [place] [employer] March 23, 2015 Problems Problem Type Condition [...]
--- OUTSIDE RECORDS SUMMARY | 2019-02-11 09:44 | XMS REPORT ---
:1940 [facility] Team Providers Name [...] Start Date End Date Status Dosage Edarbyclor [facility] [address] 40-25 MG Orally January 02, Active 1 tablet -30 Once a day 2016 Results No Known Results Summary Purpose eClinicalWorks Submission
--- OUTSIDE RECORDS SUMMARY | 2019-02-11 09:44 | XMS REPORT ---
[...] Date End Date Status Dosage Denae [facility] [address] 5 MG Orally twice Jun 08, Active 1 tablet -21 a day 2016 Results No Known Results Summary Purpose eClinicalWorks Submission
--- OUTSIDE RECORDS SUMMARY | 2019-02-11 09:45 | XMS REPORT ---
:1940 [facility] Team Providers Name Role Phone Bennett Salmon Provider Role Unavailable Encounters Encounter Location Date Unknown [place] [employer] A[employer] Aug 12, 2015 Unknown [place] [employer] January 29, 2016 Unknown [place] [employer] March 11, 2016 Unknown [place] [employer] April 15, 2016 Unknown [place] [employer] Dec 19, 2014 PT/INR 3.0 [place] [employer] Dec 19, 2014 Unknown [place] [employer] March 23, 2015 Unknown [place] [employer] April 15, 2016 Problems Problem Type Condition [...] Date End Date Status Dosage Cipro MEDISPAN [address] 500 MG Orally April 15 1 tablet [...]
--- OUTSIDE RECORDS SUMMARY | 2019-02-11 09:45 | XMS REPORT ---
:1940 [facility] Team Providers Name Role Phone Melissa Salmon Provider Role Unavailable Encounters Encounter Location Date Unknown [place] [employer] Aug 12, 2015 Unknown [place] [employer] January 29, 2016 Unknown [place] [employer] March 11, 2016 Unknown [place] [employer] April 15, 2016 Unknown [place] [employer] Dec 19, 2014 PT/INR 3.0 [place] [employer] Dec 19, 2014 Unknown [place] [employer] March 23, 2015 Unknown [place] [employer] April 15, 2016 Other [place] [employer] Sep 09, 2016 Problems Problem Type Condition [...] End Status Dosage Date Date Doxazosin MEDISPAN [id number] 4 Inactive TAKE ONE Mesylate TABLET BY [...]
--- OUTSIDE RECORDS SUMMARY | 2019-02-11 09:45 | XMS REPORT ---
:1940 [facility] Team Providers Name Role Phone [...] Date End Date Status Dosage Edarbyclor [facility] [address] 40-25 MG Orally January 17, Active 1 tablet -30 Once a day 2016 Results No Known Results Summary Purpose eClinicalWorks Submission
--- OUTSIDE RECORDS SUMMARY | 2019-02-11 09:45 | XMS REPORT ---
:1939 [facility] Team Providers Name Role Phone Bennett Salmon Provider Role Unavailable Encounters Encounter Location Date Unknown [place] [employer] Aug 12, 2015 Unknown [place] [employer] January 29, 2016 Unknown [place] [employer] March 11, 2016 Unknown [place] [employer] April 15, 2016 Unknown [place] [employer] Dec 19, 2014 PT/INR 3.0 [place] [employer] Dec 19, 2014 Unknown [place] [employer] March 23, 2015 Unknown [place] [employer] April 15, 2016 Problems Problem Type Condition [...] Date End Date Status Dosage Cipro MEDISPAN [address] 500 MG Orally April 15 1 tablet [...]
--- OUTSIDE RECORDS SUMMARY | 2019-02-11 09:45 | XMS REPORT ---
:1939 [facility] Team Providers Name Role Phone Melissa Salmon Provider Role Unavailable Encounters Encounter Location Date Unknown [place] [employer]st Aug 12, 2015 Unknown [place] [employer] January 29, 2016 Unknown [place] [employer]st March 11, 2016 Unknown [place] [employer]st April 15, 2016 Unknown [place] [employer]st Dec 19, 2014 PT/INR 3.0 [place] [employer]st Dec 19, 2014 Unknown [place] [employer] March 23, 2015 Unknown [place] [employer] Dec 20, 2016 Unknown [place] [employer]st April 15, 2016 Other [place] [employer] Sep 09, 2016 Problems Problem Type Condition [...] End Status Dosage Date Date Tikosyn MEDISPAN [id number] 500 Inactive TAKE ONE CAPSULE BY MOUTH TWICE A DAY Dofetilide MEDISPAN [address]-03 500 MCG Orally Dec 20, Active 1 [...]
--- OUTSIDE RECORDS SUMMARY | 2019-02-11 09:46 | XMS REPORT ---
:1940 [facility] [place] [facility] Team Providers Name Role Phone Melissa [...]
[2019-02-11] MEDS ORDERED: NS 0.9% VIAL 10 ML ONE ×2 (10:06→10:54)
[2019-02-11] MEDS ORDERED: EPINEPHRINE/PF 1 MG/ML AMP ONE ×2 (10:06→10:54)
[2019-02-11] MEDS ORDERED: BALANCED SALT IRRIG PLAIN 500 ML BTL IRR ONE ×2 (10:06→10:55)
[2019-02-11] MEDS ORDERED: MOXIFLOXACIN HCL 10 DROPS/ML **OR USE OPTH ONE ×2 (10:07→10:55)
[2019-02-11] MEDS ORDERED: DUOVISC 1 KIT OPTH ONE ×2 (10:07→10:55)
[2019-02-11] MEDS ORDERED: NA CHLORIDE 0.9% 500 ML ONE (10:25)
[2019-02-11] MEDS: CYCLOPENTOLATE 1% OPTH 2 ML ONE ×3 (10:28→10:48)
[2019-02-11] MEDS: PHENYLEPHRINE 10% OPTH 5ML ONE ×3 (10:28→10:48)
[2019-02-11] MEDS: TETRACAINE HCL 0.5% 4ML OPTH ONE ×2 (11:03→11:29)
[2019-02-11] MEDS: LIDOCAINE 2% MPF 5 ML VIAL ONE ×2 (11:03→11:30)
[2019-02-11] MEDS: BUPIVACAINE 0.25% PF 10 ML VIAL ONE ×2 (11:04→11:30)
[2019-02-11] MEDS ORDERED: PROPOFOL 200 MG/20 ML VIAL IV ONE (11:40)
[2019-02-11] MEDS ORDERED: LIDOCAINE 1% MPF 5 ML VIAL ONE (11:40)
[2019-02-11] MEDS ORDERED: KETOROLAC 30 MG/ML INJ ONE (12:00)
--- NOTE | 2019-02-11 12:20 | P.BOP ---
Preoperative diagnosis: Nuclear sclerotic, cortical and posterior subcapsular cataract OS Postoperative diagnosis: Same Primary procedure: Phacoemulsification with IOL OS Estimated blood loss: None Anesthesia: Local (Subtenon's infusion with anesthesia for cataract surgery) Complications: None Implants: [id number] +22.0 Transferred to: Other (Day surgery) Condition: Good
[2019-02-11 14:15] VITALS: BP 173/67; TEMP 97.5; O2SAT 99
--- NOTE | 2019-02-11 23:23 | OP ---
Date of Procedure: 02/11/2019 Surgeon: Blanca Headley MD Anesthesiologist: Rahul Calloway C.R.N.A. and Krystian Schrader M.D. Preoperative Diagnosis: Nuclear sclerotic cortical and posterior subcapsular cataract, OS (left eye) . Operation Performed: Phacoemulsification with intraocular lens implant, left eye. Anesthesia: Per cataract surgery. Complications: None. Description Of Procedure: In day surgery, the patient was prepped with Betadine and draped. A conju nctival incision was made in the inferior nasal quadrant with David scissors. A sub-Tenon block c onsisting of a 1:1 mixture of 2% Xylocaine and 0.25% bupivacaine was placed through the conjunctival incision with a blunt cannula. A [place] balloon was placed over the eye and the patient was transferr ed to the operating room. In the operating room, the patient was prepped and draped in the usual sterile fashion for ophthalmic surgery. A lid speculum was placed in the left eye. Two paracentesis sites were made superiorly an d inferiorly in the limbal cornea. Viscoat was placed in the anterior chamber and a crescent blade w as used to make a corneal groove and tunnel, and a keratome was used to enter the anterior chamber. Provisc was placed in the anterior chamber and a 360-degree capsulotomy was performed with a cystitom e. The lens was hydrodissected with BSS and rotated freely. The lens was removed with a stop and ch op technique. A 5.18 phaco CDE was used to remove the lens. Residual cortex was removed with the ir rigation and aspiration. Provisc was placed in the capsular bag. A SA60WF +22.0 lens was placed in the capsular bag without complications. Irrigation and aspiration were used to remove residual visco elastic. The paracentesis sites were hydrated with BSS. The wound and paracentesis sites were inspe cted and found to be watertight. Vigamox 0.07 cc was placed intracamerally at the end of the procedu re. The eye was irrigated with balanced salt solution. The eye was patched with a soft cotton patch and Rodriguez metal shield. The patient was returned to day surgery in good condition. Discharge Instructions: Ms. You is discharged to home in good condition and is to follow up with Dr. Headley in the morning. JHL/SHAWNL Voice ID: [id number] Report ID: [id number]
== END 2019-02-11 13:18 | disposition home or self-care (01) ==
LOC: OR 09:35
PROVIDERS: ATTEND Ophthalmology Retina Specialist
PROC: 08RK3JZ Replacement of Left Lens with Synthetic Substitute, Percutaneous Approach (ICD-10-PCS; principal; 2019-02-11 10:30)
DX: H25.12 Age-related nuclear cataract, left eye (principal); H25.042 Posterior subcapsular polar age-related cataract, left eye; H25.012 Cortical age-related cataract, left eye; E78.00 Pure hypercholesterolemia, unspecified; E03.9 Hypothyroidism, unspecified; I10 Essential (primary) hypertension; K44.9 Diaphragmatic hernia without obstruction or gangrene; F32.9 Major depressive disorder, single episode, unspecified; Z79.01 Long term (current) use of anticoagulants; Z79.899 Other long term (current) drug therapy; Z86.73 Personal history of transient ischemic attack (TIA), and cerebral infarction without residual deficits; Z87.891 Personal history of nicotine dependence
CPT/HCPCS: 66984; J2704; J0171 ×2

== ENCOUNTER 2019-03-27 11:37 | Emergency (ER) | payer OTHER, MEDICARE ==
--- OUTSIDE RECORDS SUMMARY | 2019-03-27 11:43 | XMS REPORT | Continuity of Care Document ---
:1940 Author Organization Interface Problems Problem Status Onset Classification Date Comments Source Date Reported ISCHEMIC STROKE Active [address] LFLT TRANSFER#[id number] Atrial fibrillation Active Problem 06/17/2017 [facility] Consult Personal history of Active Problem 06/17/2017 [facility] transient ischemic Cardiology attack [TIA], and Consult cerebral infarction without residual deficits Palpitations Active Problem 06/17/2017 [facility] Consult Transient cerebral Active Problem 06/17/2017 [facility] ischemic attack, Cardiology unspecified Consult Bradycardia, Active Problem 06/17/2017 [facility] unspecified Cardiology Consult Personal history of Active Problem 06/17/2017 [facility] transient ischemic Cardiology attack , and Consult cerebral infarction without residual deficits History of falling Active Problem 06/17/2017 [facility] Consult Abnormal Active Problem 06/17/2017 [facility] electrocardiogram Cardiology [ECG] [EKG] Consult Morbid obesity due Active Problem 06/17/2017 [facility] to excess calories Cardiology Consult Arthropathy, Active Problem 06/17/2017 [facility] unspecified Cardiology Consult Major depressive Active Problem 06/17/2017 [facility] disorder, single Cardiology episode, unspecified Consult Chest pain, Active Problem 06/17/2017 [facility] unspecified Cardiology Consult Shortness of breath Active Problem 06/17/2017 [facility] Consult Constipation, Active Problem 06/17/2017 [facility] unspecified Cardiology Consult Hypothyroidism, Active Problem 06/17/2017 [facility] unspecified Cardiology Consult Hyperlipidemia, Active Problem 06/17/2017 [facility] unspecified Cardiology Consult Chronic kidney Active Problem 06/17/2017 [facility] disease, unspecified Cardiology Consult Insomnia, Active Problem 06/17/2017 [facility] unspecified Cardiology Consult Nonrheumatic mitral Active Problem 06/17/2017 [facility] insufficiency Cardiology Consult Paroxysmal atrial Active Problem 06/17/2017 [facility] fibrillation Cardiology Consult 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 Essential Active Problem 06/17/2017 [facility] hypertension Cardiology Consult Chronic kidney Active Problem 06/17/2017 [facility] disease, Stage III Cardiology Consult Congestive 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 [facility] failure, unspecified Cardiology Consult Hypertension Active Problem 06/17/2017 [facility] essential benign Cardiology Consult 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 [facility] stenosis of carotid Cardiology artery without Consult mention of cerebral infarction Insomnia, Active Problem 06/17/2017 [facility] unspecified Cardiology Consult Mitral valve Active Problem 06/17/2017 [facility] disorders Cardiology Consult Other and Active Problem 06/17/2017 [facility] unspecified Cardiology hyperlipidemia Consult Unspecified Active Problem 06/17/2017 [facility] hypothyroidism Cardiology Consult Obesity, unspecified Active Problem 06/17/2017 [facility] Consult Other malaise and Active Problem 06/17/2017 [facility] fatigue Cardiology Consult Shortness of breath Active Problem 06/17/2017 [facility] Consult Chest pain, Active Problem 06/17/2017 [facility] unspecified Cardiology Consult Chronic diastolic Active Problem 06/17/2017 [facility] heart failure Cardiology Consult Unspecified Active Problem 06/17/2017 [facility] constipation Cardiology Consult 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 [place] and chronic kidney Cardiology disease with heart Consult failure and stage 1 through stage 4 chronic kidney disease, or unspecified chronic kidney disease Impaired fasting Active Problem 06/17/2017 [facility] blood sugar Cardiology Consult Overactive bladder Active Problem 06/17/2017 [facility] Consult Anxiety disorder, Active Problem 06/17/2017 [facility] unspecified Cardiology Consult Incontinence without Active Problem 06/17/2017 [facility] sensory awareness Cardiology Consult Encounter for Active Problem 06/17/2017 [facility] screening for Cardiology diabetes mellitus Consult Retention of urine, Active Problem 06/17/2017 [facility] unspecified Cardiology Consult Hypertensive 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 [facility] and chronic kidney Cardiology disease, benign, Consult with heart failure and with chronic kidney disease stage I through stage IV, or unspecified Depressive disorder, Active Problem 06/17/2017 [facility] not elsewhere Cardiology classified Consult Urinary tract Active Problem 06/17/2017 [facility] infection, site not Cardiology specified Consult Unspecified Active Problem 06/17/2017 [facility] arthropathy, site Cardiology unspecified Consult Frequency of Active Problem 06/17/2017 [facility] micturition Cardiology Consult Morbid obesity Active Problem 06/17/2017 [facility] Consult Female genuine Active Problem 06/17/2017 [facility] stress incontinence Cardiology Consult Nonspecific abnormal Active Problem 06/17/2017 [facility] electrocardiogram Cardiology (EKG) Consult Palpitations Active Problem 06/17/2017 [facility] Consult Other specified Active Problem 06/17/2017 [facility] cardiac dysrhythmias Cardiology Consult Upper respiratory Active Problem 06/17/2017 [facility] tract Cardiology hypersensitivity Consult reaction, site unspecified Unspecified Active Problem 06/17/2017 [facility] transient cerebral Cardiology ischemia Consult Personal history of Active Problem 06/17/2017 [facility] fall Cardiology Consult Acute upper Active Problem 06/17/2017 [facility] respiratory Cardiology infections of Consult unspecified site Acid reflux disease Resolved Problem 11/28/2014 [facility] High cholesterol Resolved Problem 11/28/2014 [facility] Hyperlipidemia Resolved Problem 11/28/2014 [facility] Hypertension Resolved Problem 11/28/2014 [facility] Hypothyroidism Resolved Problem 11/28/2014 [facility] CVA Active [facility] Medications Medication Details Route Status Patient Ordering Order Source Instructions Provider Date Eliquis 1 tablet Orally Active 5 MG Orally [facility] [place] twice a day 2016 Cardiology Consult Edarbyclor 1 tablet Orally Active 40-25 MG [facility] [place] Orally Once a 2017 Cardiology day Consult Edarbyclor 1 tablet Orally Active 40-25 MG [facility] [place] Orally Once a 2016 Cardiology day Consult Dofetilide 1 capsule Orally Active 500 MCG [facility] [place] Orally Twice 2017 Cardiology a day Consult Cipro 1 tablet Orally Active 500 MG Orally [facility] [place] Twice a day 2015 Cardiology Consult Warfarin 5 mg, 1 tab, Inactive [facility] Route: PO, 2014 Medical Drug form: Center TAB, Daily, Dosing Weight 114.318, kg, Start date: 11/26/14 12:03:00, Duration: 1 doses or times, Stop date: 11/26/14 12:03:00Notes : Nurse to ensure documentation of patient education per anticoagulati on policy. Avoid large intake of vitamin-K containing foods diet. (Same As: Coumadin) valsartan 40 mg 40 mg=1 tab, Active 11/26[facility] oral tablet PO, Q12H, # 2015 Medical 60 tab, 3 Center Refill(s) atorvastatin 40 40 mg=1 tab, Active 11/26[facility] [place] mg oral tablet PO, Bedtime, 2015 Medical # 30 tab, 3 Center Refill(s) clopidogrel 75 mg 75 mg=1 tab, Active 11/26[facility] oral tablet PO, Daily, # 2015 Medical 30 tab, 0 Center Refill(s) warfarin 5 mg 5 mg, PO, Active 11/26[facility] oral tablet Daily, # 2 2015 Medical tab, 0 Center Refill(s) Atenolol 25 MG 12.5 mg=0.5 Active 11/26[facility] Oral Tablet tab, PO, 2015 Medical Daily, 0 Center Refill(s) valsartan 40 mg, 1 tab, Inactive [place] Route: PO, 2014 Medical Drug form: [place] TAB, Q12H, Dosing Weight 114.318, kg, Start date: 11/26/14 9:00:00, Duration: 30 day, Stop date: 12/25/14 21:00:00Notes : Same as Diovan Protonix 40 mg, 1 tab, No Longer [place] Route: PO, Active 2014 Medical Drug form: [place] ECTAB, Before Dinner, Start date: 11/25/14 16:30:00, Duration: 30 day, Stop date: 12/24/14 16:30:00Notes : Tablet should not be chewed or crushed. (Same as: Protonix) Atenolol 12.5 mg, 0.5 No Longer [place] tab, Route: Active 2014 Medical PO, Drug Center form: TAB, Daily, Dosing Weight 114.318, kg, Start date: 11/25/14 9:00:00, Duration: 30 day, Stop date: 12/24/14 9:00:00Notes: (Same As:Tenormin) valsartan 320 mg, No Longer [facility] Route: PO, Active 2014 Medical Drug form: [place] TAB, Daily, Dosing Weight 114.318, kg, Start date: 11/25/14 9:00:00, Duration: 30 day, Stop date: 12/24/14 9:00:00 Thyroxine 100 No Longer [facility] microgram, 1 Active 2014 Medical tab, Route: [place] PO, Drug form: TAB, Q630AM, Dosing Weight 114.318, kg, Start date: 11/25/14 6:30:00, Duration: 30 day, Stop date: 12/24/14 6:30:00Notes: Take 1 hour before or 2 hours after meal; Enteral feeds may interefere with the absorption of this medication. (Same as:Levothroid , Synthroid) heparin, porcine 7,500 unit, No Longer [place] 1.5 mL, Active 2014 Medical Route: SUB-Q, [place] Drug form: INJ, Q8H, Dosing Weight 114.318, kg, Start date: 11/24/14 22:00:00, Duration: 30 day, Stop date: 12/24/14 16:00:00Notes : porcine heparin Plavix 75 mg, 1 tab, No Longer [facility] Route: PO, Active 2014 Medical Drug form: Center TAB, Daily, Dosing Weight 114.318, kg, Start date: 11/24/14 22:00:00, Duration: 30 day, Stop date: 12/24/14 9:00:00Notes: (Same As: Plavix) Tylenol 650 mg, 2 No Longer [facility] tab, Route: Active 2014 Medical PO, Drug Center form: TAB, Q6H, Dosing Weight 114.318, kg, PRN Pain, Start date: 11/24/14 21:16:00, Duration: 30 day, Stop date: 12/24/14 21:15:00Notes : Do not exceed 4 gm/day. (Same as: Tylenol) atorvastatin 40 mg, 1 tab, No Longer [facility] Route: PO, Active 2014 Medical Drug form: [facility] TAB, Bedtime, kg, Start date: 11/24/14 21:00:00, Duration: 30 day, Stop date: 12/23/14 21:00:00Notes : (Same as: Lipitor) Bupropion 150 mg, 1 No Longer [facility] tab, Route: Active 2014 Medical PO, Drug Center form: ERTAB, BID, Dosing Weight 114.318, kg, Start date: 11/24/14 17:00:00, Duration: 30 day, Stop date: 12/24/14 9:00:00Notes: (Do not crush) (Same As: Wellbutrin SR) valsartan 40 mg, Route: Inactive [facility] PO, BID, 2014 Medical Dosing Weight Center 114.318, kg, Start date: 11/24/14 17:00:00, Duration: 30 day, Stop date: 12/24/14 9:00:00 Triiodothyronine 10 microgram, No Longer [facility] 2 tab, Route: Active 2014 Medical PO, Drug Center form: TAB, QAM, Dosing Weight 114.318, kg, Priority: NOW, Start date: 11/24/14 15:35:00, Duration: 30 day, Stop date: 12/24/14 9:00:00Notes: (Same as: Cytomel) Atenolol 100 MG 50 mg=0.5 No Longer [facility] Oral Tablet tab, PO, BID, Active 2015 Medical # 30 tab, 0 Center Refill(s) pravastatin 40 mg 40 mg=1 tab, No Longer [facility] oral tablet PO, Bedtime, Active 2015 Medical # 30 tab, 0 Center Refill(s) Furosemide 40 MG 40 mg=1 tab, No Longer [place] Oral Tablet PO, Daily, # Active 2015 Medical [Lasix] 30 tab, 0 Center Refill(s) spironolactone 25 25 mg=1 tab, No Longer [facility] mg oral tablet PO, Daily, # Active 2014 Medical 60 tab, 0 Center Refill(s) Potassium 20 mEq=1 tab, No Longer [place] Chloride 20 MEQ PO, Daily, 0 Active 2015 Medical Extended Release Refill(s) Center Tablet omeprazole 40 mg 40 mg=1 cap, Active [place] oral delayed PO, Daily, # 2015 Medical release capsule 30 cap, 0 Center Refill(s) Metolazone 5 MG 5 mg=1 tab, No Longer [facility] Oral Tablet PO, Daily, # Active 2015 Medical 30 tab, 0 Center Refill(s) liothyronine 5 10 Active [facility] mcg oral tablet microgram=2 2014 Medical tab, PO, QAM, Center # 30 tab, 0 Refill(s) Fenofibrate 160 160 mg=1 tab, No Longer [facility] MG Oral Tablet PO, Daily, # Active 2015 Medical 30 tab, 0 Center Refill(s) Zolpidem tartrate 10 mg=1 tab, Active [place] 10 MG Oral Tablet PO, Bedtime, 2015 Medical [Ambien] for sleep, 0 Center Refill(s) buPROPion 150 150 mg=1 tab, Active [facility] mg/24 hours oral PO, BID, # 30 2015 Medical extended release tab, 0 Center tablet Refill(s) Albuterol 0.09 2 puff, No Longer [facility] MG/ACTUAT Metered INHALATION, Active 2015 Medical Dose Inhaler Q6H, as Center [Ventolin] needed for wheezing, # 17 gm, 0 Refill(s) levothyroxine 100 100 Active [place] mcg (0.1 mg) oral microgram=1 2014 Medical tablet tab, PO, QA, Center # 30 tab, 0 Refill(s) doxazosin 4 mg 4 mg=1 tab, Active [facility] oral tablet PO, Daily, # 2015 Medical 30 tab, 0 Center Refill(s) valsartan 320 mg 320 mg=1 tab, No Longer [facility] oral tablet PO, Daily, # Active 2014 Medical 30 tab, 0 Center Refill(s) Triiodothyronine 5 microgram, Inactive [facility] 1 tab, Route: 2014 Medical PO, Drug Center form: TAB, Daily, Dosing Weight 114.318, kg, Start date: 11/24/14 14:09:00, Duration: 30 day, Stop date: 12/24/14 9:00:00Notes: (Same as: Cytomel) Reglan 5 mg, 1 mL, Inactive [facility] Route: IV, 2014 Medical Drug form: [place] INJ, ONCE, Dosing Weight 114.318, kg, Start date: 11/24/14 11:44:00, Stop date: 11/24/14 11:44:00Notes : (Same as: Reglan) Magnesium Sulfate 2 gm, 50 mL, Inactive [facility] Route: IVPB, 2014 Medical Drug form: [place] INJ, ONCE, Dosing Weight 114.318, kg, Total dose=2 gm, Start date: 11/24/14 11:27:00, Duration: 1 doses or times, Stop date: 11/24/14 11:27:00 pneumococcal 0.5 ml, Inactive [facility] capsular Route: IM, 2014 Medical polysaccharide Drug Form: [place] type 1 vaccine / INJ, Daily, pneumococcal Start date: capsular 11/24/14 polysaccharide 9:00:00, Stop type 10A vaccine date: / pneumococcal 11/24/14 capsular 23:59:00Notes polysaccharide : (Same as: type 11A vaccine Pneumovax 23) / pneumococcal Refrigerate capsular polysaccharide type 12F vaccine / pneumococcal capsular polysacchar Saline Flush 0.9% 10 ml, Route: No Longer [facility] IVP, Drug Active 2014 Medical Form: INJ, Center kg, Q12H, Start date: 11/24/14 9:00:00, Duration: 30 day, Stop date: 12/23/14 21:00:00Notes : (Same as: BD Posiflush) Versed 0.5 mg, 0.5 Inactive [facility] mL, Route: 2014 Medical IVP, Drug Center form: INJ, ONCE, Dosing Weight 114.318, kg, Start date: 11/24/14 8:31:00, Stop date: 11/24/14 8:31:00Notes: (Same as: Versed) Pravastatin 40 mg=1 tab, Inactive [facility] Sodium 40 MG Oral PO, Bedtime, 2014 Medical Tablet # 30 tab, 0 Center [Pravachol] Refill(s) aspirin 0 Refill(s) Inactive [facility] 2014 Medical Center Fenofibrate 160 160 mg=1 tab, Inactive [facility] MG Oral Tablet PO, Daily, # 2015 Medical 30 tab, 0 Center Refill(s) Atenolol 0 Refill(s) Inactive [facility] 2014 [facility] valsartan 320 mg 320 mg=1 tab, Inactive [facility] oral tablet PO, Daily, # 2015 Medical 30 tab, 0 Center Refill(s) Potassium 0 Refill(s) Inactive [facility] Chloride 20 MEQ 2014 Medical Extended Release Center Tablet Metolazone 5 MG 5 mg=1 tab, Inactive [facility] Oral Tablet PO, Daily, # 2015 Medical 30 tab, 0 Center Refill(s) Furosemide 40 MG 40 mg=1 tab, Inactive [facility] Oral Tablet PO, Daily, # 2015 Medical [Lasix] 30 tab, 0 Center Refill(s) liothyronine 5 5 microgram=1 Inactive [facility] mcg oral tablet tab, PO, 2014 Medical Daily, # 30 Center tab, 0 Refill(s) Omeprazole 0 Refill(s) Inactive [facility] 2014 Medical Center spironolactone 25 0 Refill(s) Inactive [facility] mg oral tablet 2014 [facility] Zofran 4 mg, 2 mL, Inactive [facility] Route: IVP, 2014 Medical Drug form: Center INJ, ONCE, Dosing Weight 114.318, kg, Start date: 11/24/14 7:08:00, Stop date: 11/24/14 7:08:00Notes: (Same as: Zofran) Tylenol 650 mg, 2 Inactive [facility] tab, Route: 2015 Medical PO, Drug Center form: TAB, Q6H, kg, PRN Pain 1-3/Temp > 99.5 F, Start date: 11/24/14 0:48:00, Stop date: 12/24/14 0:47:00Notes: Do not exceed 4 gm/day. (Same as: Tylenol) Sodium Chloride 1,000 mL, No Longer [facility] 0.154 MEQ/ML Rate: 75 Active 2014 Medical Injectable ml/hr, Infuse Center Solution over: 13.3 hr, Route: IV, Total Volume: 1,000, Start date: 11/23/14 23:06:00, Duration: 30 day, Stop date: 12/23/14 23:05:00 Saline Flush 0.9% 10 ml, Route: No Longer [facility] IVP, Drug Active 2014 Medical Form: INJ, Center kg, PRN, PRN Line Flush, Start date: 11/23/14 22:58:00, Duration: 30 day, Stop date: 12/23/14 22:57:00Notes : (Same as: BD Posiflush) Acetaminophen 650 mg, 2 No Longer [facility] tab, Route: Active 2014 Medical PO, [...] Updated Comments Source pneumococcal 11/24/2014 Not Given [facility] 23-valent vaccine Medical Center Results Order Name Results Value Reference Date Interpretation Comments Source Range CHEM PANEL Magnesium Lvl 2.1 mg/dL 1.8 - 2.4 11/26 [facility] CHEM PANEL Phosphorus 2.8 mg/dL 2.5 - 4.5 11/26 2014 [facility] CHEM PANEL eGFR 40 11/26 1Result Comment: The eGFR is calculated using the CKD-EPI formula. In most young, healthy individuals the eGFR will be >90 mL/ min/1.73m2. The eGFR declines with age. An eGFR of 60-89 may be normal in [facility] mL/min/1.7 some populations, particularly the elderly, for whom the CKD-EPI formula has not been extensively validated. Use of the eGFR is not recommended in the following populations: [address] Individuals with unstable creatinine concentrations, including [...] values reflect the clinical guidelines of the [place] [employer]. [facility] CHEM PANEL BUN 18 mg/dL 7 - 22 11/26 [facility] CHEM PANEL Creatinine 1.3 mg/dL 0.5 - 1.4 11/26 [facility] CHEM PANEL Sodium Lvl 136 meq/L 135 - 145 11/26 [facility] CHEM PANEL Chloride Lvl 102 meq/L 95 - 109 11/26 [facility] CHEM PANEL Potassium Lvl 3.5 meq/L 3.5 - 5.1 11/26 [facility] CHEM PANEL Calcium Lvl 9.0 mg/dL 8.5 - 10.5 11/26 [facility] CHEM PANEL CO2 25 meq/L 24 - 32 11/26 [facility] CHEM PANEL AGAP 12.5 meq/L 10.0 - 11/26 20.0 [facility] HEMATOLOGY RDW 13.1 % 11.5 - 11/26 14.5 /2014 [facility] HEMATOLOGY MCH 32.4 pg 27.0 - 02/ 31.0 /2014 [facility] HEMATOLOGY MCV 93.5 fL 80.0 - 02 98.0 /2014 [facility] HEMATOLOGY MCHC 34.6 g/dL 32.0 - 02/ 36.0 /2014 [facility] HEMATOLOGY Hct 33.6 % 36.0 - / 48.0 /2014 [facility] HEMATOLOGY Hgb 11.6 g/dL 12.0 - 02 16.0 /2014 [facility] HEMATOLOGY RBC 3.60 M/CMM 4.20 - 02 5.40 /2014 [facility] HEMATOLOGY WBC 4.6 K/CMM 3.7 - 10.4 11/26 [facility] HEMATOLOGY MPV 8.3 fL 7.4 - 10.4 11/[address] [place] [address] HEMATOLOGY Platelet 149 K/CMM 133 - [address] HEMATOLOGY Segs 62.3 % 45.0 - 02 [facility] 75.0 [facility] HEMATOLOGY Lymphocytes # 1.2 K/CMM 1.0 - 5.5 02 [facility] HEMATOLOGY Monocytes # 0.4 K/CMM 0.0 - 0.[address] [place] [address] HEMATOLOGY Eosinophils 3.0 % 0.0 - 4.0 02 [facility] HEMATOLOGY Lymphocytes 26.2 % 20.0 - 11/26 [facility] 40.0 [facility] HEMATOLOGY Segs-Bands # 2.9 K/CMM 1.5 - 8.1 11/[address] HEMATOLOGY Basophils 0.5 % 0.0 - 1.0 02/ [facility] HEMATOLOGY Monocytes 8.0 % 2.0 - 12.0 11/26 [facility] [address] [place] [address] HEMATOLOGY Eosinophils # 0.1 K/CMM 0.0 - 0.5 11/[address] CHEM PANEL Phosphorus 3.1 mg/dL 2.5 - 4.5 11/[address] CHEM PANEL eGFR 34 02 2Result Comment: The eGFR is calculated using the CKD-EPI formula. In most young, healthy individuals the eGFR will be >90 mL/ min/1.73m2. The eGFR declines with age. An eGFR of 60-89 may be normal in [facility] mL/min/1.7 /2014 some populations, particularly the elderly, for whom the CKD-EPI formula has not been extensively validated. Use of the eGFR is not recommended in the following populations: [address] Individuals with unstable creatinine concentrations, including [...] meq/L 24 - 32 11/25 [facility] CHEM PANEL AGAP 12.8 meq/L 10.0 - 11/25 20.0 [facility] CHEM PANEL Calcium Lvl 8.7 mg/dL 8.5 - 10.5 11/25 2014 [facility] CHEM PANEL Chloride Lvl 104 meq/L 95 - 109 11/25 2014 [facility] CHEM PANEL BUN 23 mg/dL 7 - 22 11/25 [facility] CHEM PANEL Sodium Lvl 138 meq/L 135 - 145 11/25 [facility] CHEM PANEL Glucose Lvl 82 mg/dL 70 - 99 11/25 5Interpretive Data: Adult reference range values reflect the clinical guidelines of the [place] [employer]. [facility] CHEM PANEL Creatinine 1.5 mg/dL 0.5 - 1.4 11/25 [facility] CHEM PANEL Potassium Lvl 3.8 meq/L 3.5 - 5.1 11/25 [facility] CHEM PANEL Magnesium Lvl 2.7 mg/dL 1.8 - 2.4 11/25 [facility] HEMATOLOGY Segs 63.1 % 45.0 - 11/25 75.0 [facility] HEMATOLOGY Lymphocytes 27.1 % 20.0 - 02 40.0 [facility] HEMATOLOGY Monocytes 7.2 % 2.0 - 12.0 11/25 2014 [facility] HEMATOLOGY Eosinophils # 0.1 K/CMM 0.0 - 0.5 11/25 [facility] HEMATOLOGY Eosinophils 2.2 % 0.0 - 4.0 11/25 [facility] HEMATOLOGY Basophils 0.4 % 0.0 - 1.0 11/25 [facility] HEMATOLOGY Segs-Bands # 3.1 K/CMM 1.5 - 8.1 11/25 [facility] HEMATOLOGY Monocytes # 0.3 K/CMM 0.0 - 0.8 11/25 [facility] HEMATOLOGY Lymphocytes # 1.3 K/CMM 1.0 - 5.5 11/25 [facility] HEMATOLOGY MPV 8.5 fL 7.4 - 10.4 11/25 [facility] HEMATOLOGY MCH 31.6 pg 27.0 - 11/25 31.0 [facility] HEMATOLOGY MCV 93.4 fL 80.0 - 11/25 [facility] 98.0 /2014 [facility] HEMATOLOGY Hct 33.2 % 36.0 - 11/25 [facility] 48.0 /2014 [facility] HEMATOLOGY Platelet 151 K/CMM 133 - 450 11/25 [facility] HEMATOLOGY RDW 13.1 % 11.5 - 11/25 14.5 [facility] HEMATOLOGY MCHC 33.8 g/dL 32.0 - 11/25 36.0 /2014 [facility] HEMATOLOGY Hgb 11.2 g/dL 12.0 - 02 16.0 [facility] HEMATOLOGY RBC 3.56 M/CMM 4.20 - 11/25 5.40 /2014 [facility] HEMATOLOGY WBC 4.9 K/CMM 3.7 - 10.4 11/25 [facility] HEMATOLOGY INR 1.14 0.85 - 11/25 7Interpretive Data: RECOMMENDED RANGES FOR PROTIME INR: [facility] 1.17 2.0-3.0 for most medical and surgical thromboembolic states. Medical 2.5-3.5 for artificial heart valves and recurrent embolism. Center INR SHOULD BE USED ONLY FOR PATIENTS ON STABLE ANTICOAGULANT THERAPY. HEMATOLOGY PTT 28.5 s 22.9 - 02 9Interpretive [facility] 35.8 /2014 Data: Heparin [facility] Range: 57 - 92 Seconds HEMATOLOGY PT 14.7 s 12.0 - 02/03 [facility] 14.7 /2014 [facility] THYROID TSH 3.190 0.360 - 11/25 [facility] PANEL uIU/mL 3.740 /2014 Medical Center Neck wo Neck wo EXAM: MRI BRAIN 11/24 - [facility] contrast contrast MRA /2014 - Medical MRA EXAM: MRA BRAIN This report was dictated by a Breeding Manager/ Fellow. I have personally reviewed the images [...] caliber. No aneurysm is identified. 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 There is [...] Brain wo EXAM: MRI BRAIN 11/24 - [facility] contrast contrast MRA /2014 - Medical MRA EXAM: MRA BRAIN This report was dictated by a Breeding Manager/ Fellow. I have personally reviewed the images [...] caliber. No aneurysm is identified. 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 There is [...] Brain wo EXAM: MRI BRAIN 11/24 - [facility] contrast contrast MRI /2014 - Medical MRI EXAM: MRA BRAIN This report was dictated by a Breeding Manager/ Fellow. I have personally reviewed the images [...] caliber. No aneurysm is identified. 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 There is [...] AND UA <=1.0 0.1 - 1.0 11/24 [facility] Urobilinogen mg/dL /[address] [place] [address] URINE AND UA Renal Epi 7 /LPF <=0 /LPF 11/[address] URINE AND UA Sq Epi Moderate Few /LPF 11/24 [facility] /LPF /[address] [place] [address] URINE AND UA WBC 2 /HPF 0 - 5 11/[address] URINE AND UA Nitrite Negative Negative 11/[address] (11/24/14 2:06 AM) [place] URINE AND UA Leuk Est Negative Negative 11/[address] (11/24/14 2:06 AM) [place] URINE AND UA Blood Negative Negative 11/[address] (11/24/14 2:06 AM) [place] URINE AND UA Protein Negative Negative 11/24 [facility] mg/dL mg/dL /2014 [facility] URINE AND UA pH 6.5 5.0 - 8.0 11/[address] URINE AND UA Glucose Negative Negative 11/24 [facility] mg/dL mg/dL /[address] [place] [address] URINE AND UA Bili Negative Negative 11/[address] [place] (11/24/14 2:06 AM) URINE AND UA Ketones Negative Negative 11/24 [facility] mg/dL mg/dL /2014 [facility] URINE AND UA Spec Grav 1.009 <=1.030 11/24 [facility] URINE AND UA Turbidity Clear Clear 11/24 [facility] (11/24/14 2:06 AM) [place] URINE AND UA Color Yellow Yellow 11/24 [facility] *NA* [place] (11/24/14 2:06 AM) CHEM PANEL A/G Ratio 1.2 0.7 - 1.6 11/24 [facility] CHEM PANEL Globulin 3.2 g/dL 2.0 - 4.0 11/24 [facility] CHEM PANEL B/C Ratio 22 6 - 25 11/24 [facility] CHEM PANEL AGAP 9.8 meq/L 10.0 - 11/24 [facility] 20.0 [facility] CHEM PANEL eGFR 29 11/24 3Result Comment: The eGFR is calculated using the CKD-EPI formula. In most young, healthy individuals the eGFR will be >90 mL/ min/1.73m2. The eGFR declines with age. An eGFR of 60-89 may be normal in [facility] mL/min/1.7 some populations, particularly the elderly, for whom the CKD-EPI formula has not been extensively validated. Use of the eGFR is not recommended in the following populations: [address] Individuals with unstable creatinine concentrations, including [...] values reflect the clinical guidelines of the [place] [employer]. [facility] CHEM PANEL Calcium Lvl 8.7 mg/dL 8.5 - 10.5 11/24 [facility] CHEM PANEL ALT 29 unit/L 0 - 65 11/24 [facility] CHEM PANEL AST 17 unit/L 0 - 37 11/[address] CHEM PANEL Albumin Lvl 3.7 g/dL 3.5 - 5.0 11/[address] CHEM PANEL Total Protein 6.9 g/dL 6.4 - 8.4 11/[address] CHEM PANEL CO2 28 meq/L 24 - 32 11/[address] CHEM PANEL Chloride Lvl 103 meq/L 95 - 109 11/[address] CHEM PANEL Potassium Lvl 3.8 meq/L 3.5 - 5.1 11/[address] CHEM PANEL Sodium Lvl 137 meq/L 135 - 145 11/[address] CHEM PANEL Creatinine 1.7 mg/dL 0.5 - 1.4 11/[address] CHEM PANEL BUN 37 mg/dL 7 - 22 11/[address] CHEM PANEL Alk Phos 37 unit/L 39 - 136 11/[address] CHEM PANEL Bili Total 0.4 mg/dL 0.2 - 1.3 11/[address] HEMATOLOGY Monocytes # 0.4 K/CMM 0.0 - 0.8 11/[address] HEMATOLOGY Lymphocytes # 1.1 K/CMM 1.0 - 5.5 11/[address] HEMATOLOGY Eosinophils # 0.1 K/CMM 0.0 - 0.5 11/[address] HEMATOLOGY Segs 70.9 % 45.0 - 02 [facility] 75.0 /2014 [facility] HEMATOLOGY Monocytes 6.7 % 2.0 - 12.0 11/[address] HEMATOLOGY Lymphocytes 19.7 % 20.0 - 02/ [facility] 40.0 /2014 [facility] HEMATOLOGY Eosinophils 2.3 % 0.0 - 4.[address] HEMATOLOGY Segs-Bands # 4.0 K/CMM 1.5 - 8.1 11/[address] HEMATOLOGY Basophils 0.4 % 0.0 - 1.0 11/[address] HEMATOLOGY PTT 28.2 s 22.9 - 02/ 10[facility] 35.8 /2015 e Data: [facility] Therapeutic Range: 57 - 92 Seconds HEMATOLOGY PT 13.9 s 12.0 - 11/24 [facility] 14.7 /2014 [facility] HEMATOLOGY INR 1.07 0.85 - 11/24 8Interpretive Data: RECOMMENDED RANGES FOR PROTIME INR: [facility] 1.17 2.0-3.0 for most medical and surgical thromboembolic states. Medical 2.5-3.5 for artificial heart valves and recurrent embolism. Center INR SHOULD BE USED ONLY FOR PATIENTS ON STABLE ANTICOAGULANT THERAPY. HEMATOLOGY MPV 8.8 fL 7.4 - 10.4 11/24 [facility] HEMATOLOGY WBC 5.7 K/CMM 3.7 - 10.4 11/24 [facility] HEMATOLOGY MCV 94.9 fL 80.0 - 11/24 [facility] 98.0 [facility] HEMATOLOGY RBC 3.73 M/CMM 4.20 - 11/24 [facility] 5.40 [facility] HEMATOLOGY RDW 13.3 % 11.5 - 11/24 [facility] 14.5 /2014 [facility] HEMATOLOGY Hgb 12.1 g/dL 12.0 - 11/24 [facility] 16.0 [facility] HEMATOLOGY Hct 35.3 % 36.0 - 11/24 [facility] 48.0 [facility] HEMATOLOGY Platelet 158 K/CMM 133 - 450 11/24 [facility] HEMATOLOGY MCHC 34.2 g/dL 32.0 - 11/24 [facility] 36.0 [facility] HEMATOLOGY MCH 32.5 pg 27.0 - 11/24 [facility] 31.0 [facility] LIPIDS CHD Risk 2.81 3.90 - 11/24 [facility] 5.80 [facility] LIPIDS VLDL 26 11/24 [facility] LIPIDS LDL 59 mg/dL <=99 mg/dL 11/24 [facility] (Calculated) [facility] LIPIDS Trig 128 mg/dL <=149 11/24 [facility] mg/dL [facility] LIPIDS HDL 47 mg/dL >=61 mg/dL 11/24 [facility] LIPIDS Chol 132 mg/dL <=199 11/24 [facility] mg/dL [facility] SPECIAL Hgb A1C 5.6 % <=5.6 % 11/24 [facility] CHEMISTRY [facility] Vital Signs Vital Sign Value Date Comments Source Respitory Rate 16 11/26/2014 [facility] Systolic (mm Hg) 172 11/26/2014 [facility] Diastolic (mm Hg) 79 11/26/2014 [facility] Heart Rate 57 11/26/2014 [facility] Temperature Oral (F) 97.5 F 11/26/2014 [facility] Temperature Oral (F) 97.5 F 11/26/2014 [facility] Heart Rate 69 11/26/2014 [facility] Diastolic (mm Hg) 79 11/26/2014 [facility] Respitory Rate 18 11/26/2014 [facility] Systolic (mm Hg) 166 11/26/2014 [facility] Respitory Rate 16 11/26/2014 [facility] Systolic (mm Hg) 157 11/26/2014 [facility] Diastolic (mm Hg) 66 11/26/2014 [facility] Heart Rate 65 11/24/2014 [facility] Weight 114.318 11/24/2014 [facility] BMI Calculated 43.26 11/24/2014 [facility] Height 162.56 cm 11/24/2014 [facility] Encounters Location Location Encounter Encounter Reason Attending ADM DC Status Source Details Type Number For Provider Date Date Visit [facility] [id number] [facility] Viky 11/24 11/26 [facility] /2014 [facility] PT/INR 3.0 [id number] 12/19 12/19 [facility] [id number]- /2014 [facility] [id number] [facility] [place] PT/INR 3.0 [id number] 12/19 12/19 [facility] [id number]- /2014 [facility] [id number] [facility] [place] PT/INR 3.0 [id number] 12/19 12/19 [facility] [id number]- /2014 [facility] [id number] [facility] [place] PT/INR 3.0 [id number] 12/19 12/19 [facility] [id number]- /2014 [facility] [id number] [facility] [place] Unknown [id number] 12/19 12/19 [facility] [id number]- /2014 [facility] [id number] [facility] [place] Unknown [id number] 12/19 12/19 [facility] [id number]- /2014 [facility] [id number] [facility] [place] Unknown [id number] 12/19 12/19 [facility] [id number]- /2014 [facility] [id number] [facility] [place] Unknown [id number] 12/19 12/19 [facility] [id number]- /2014 [facility] [id number] [facility] [place] PT/INR 3.0 [id number] 12/19 12/19 [facility] [id number]- /2014 [facility] [id number] [facility] [place] PT/INR 3.0 [id number] 12/19 12/19 [facility] [id number]- /2014 [facility] [id number] [facility] [place] Unknown [id number] 12/19 12/19 [facility] [id number]- /2014 [facility] [id number] [facility] [place] Unknown [id number] 12/19 12/19 [facility] [id number]- /2014 [facility] [id number] [facility] [place] Unknown [id number] 03/23 03/23 [facility] [id number]- /2014 [facility] [id number] [facility] [place] Unknown [id number] 03/23 03/23 [facility] [id number]- /2014 [facility] [id number] [facility] [place] Unknown [id number] 03/23 03/23 [facility] [id number]- /2014 [facility] [id number] [facility] [place] Unknown [id number] 03/23 03/23 [facility] [id number]- /2014 [facility] [id number] [facility] [place] Unknown [id number] 03/23 03/23 [facility] [id number]- /2014 [facility] [id number] [facility] [place] Unknown [id number] 03/23 03/23 [facility] [id number]- /2014 [facility] [id number] [facility] [place] Unknown [id number] 08/12 08/12 [facility] [id number]- /2014 [facility] [id number] [facility] [place] Unknown [id number] 08/12 08/12 [facility] [id number]- /2014 [facility] [id number] [facility] [place] Unknown [id number] 08/12 08/12 [facility] [id number]- /2014 [facility] [id number] [facility] [place] Unknown [id number] 08/12 08/12 [facility] [id number]- /2014 [facility] [id number] [facility] [place] Unknown [id number] 08/12 08/12 [facility] [id number]- /2014 [facility] [id number] [facility] [place] Unknown [id number] 08/12 08/12 [facility] [id number]- /2014 [facility] [id number] [facility] [place] Unknown [id number] 01/28 01/28 [facility] [id number]- /2015 [facility] [id number] [facility] [place] Unknown [id number] 01/28 01/28 [facility] [id number]- /2015 [facility] [id number] [facility] [place] Unknown [id number] 01/28 01/28 [facility] [id number]- /2015 [facility] [id number] [facility] [place] Unknown [id number] 01/28 01/28 [facility] [id number]- /2015 [facility] [id number] [facility] [place] Unknown [id number] 01/28 01/28 [facility] [id number]- /2015 [facility] [id number] [facility] [place] Unknown [id number] 01/28 01/28 [facility] [id number]- /2015 [facility] [id number] [facility] [place] Unknown [id number] 03/11 03/11 [facility] [id number]- /2015 [facility] [id number] [facility] [place] Unknown [id number] 03/11 03/11 [facility] [id number]- /2015 [facility] [id number] [facility] [place] Unknown [id number] 03/11 03/11 [facility] [id number]- /2015 [facility] [id number] [facility] [place] Unknown [id number] 03/11 03/11 [facility] [id number]- /2015 [facility] [id number] [facility] [place] Unknown [id number] 03/11 03/11 [facility] [id number]- /2015 [facility] [id number] [facility] [place] Unknown [id number] 04/15 04/15 [facility] [id number]- /2015 [facility] [id number] [facility] [place] Unknown [id number] 04/15 04/15 [facility] [id number]- /2015 [facility] [id number] [facility] [place] Unknown [id number] 04/15 04/15 [facility] [id number]- /2015 [facility] [id number] [facility] [place] Unknown [id number] 04/15 04/15 [facility] [id number]- /2015 [facility] [id number] [facility] [place] Unknown [id number] 04/15 04/15 [facility] [id number]- /2015 [facility] [id number] [facility] [place] Unknown [id number] 04/15 04/15 [facility] [id number]- /2015 [facility] [id number] [facility] [place] Unknown [id number] 04/15 04/15 [facility] [id number]- /2015 [facility] [id number] [facility] [place] Unknown [id number] 04/15 04/15 [facility] [id number]- /2015 [facility] [id number] [facility] [place] Other [id number] 09/09 09/09 [facility] [id number]- /2015 [facility] [id number] [facility] [place] Other [id number] 09/09 09/09 [facility] [id number]- /2015 [facility] [id number] y Consult [place] Unknown [id number] 12/20 12/20 [facility] [id number]- /2016 [facility] [id number] y Consult Procedures Procedure Code Date Perfomer Comments Source Knee replacement [id number] [facility]
--- OUTSIDE RECORDS SUMMARY | 2019-03-27 11:44 | XMS REPORT ---
:1940 [facility] Team Providers Name Role Phone Alessandra [...] End Date Status Dosage Edarbyclor [facility] [address] 40-25 MG Orally January 02, Active 1 tablet -30 Once a day 2016 Results No Known Results Summary Purpose eClinicalWorks Submission
--- OUTSIDE RECORDS SUMMARY | 2019-03-27 11:44 | XMS REPORT ---
:1940 Author Organization eClinicalWorks Care Team Providers Name Role Phone Melissa Salmon Provider Role Unavailable Encounters Encounter Location Date Unknown [place] Chief Medical Technologist Aug 12, 2015 Unknown [place] Chief Medical Technologist January 29, 2016 Unknown [place] Chief Medical Technologist March 11, 2016 Unknown [place] Chief Medical Technologist Dec 19, 2014 PT/INR 3.0 [place] Chief Medical Technologist Dec 19, 2014 Unknown [place] Chief Medical Technologist March 23, 2015 Problems Problem Type Condition [...]
--- OUTSIDE RECORDS SUMMARY | 2019-03-27 11:44 | XMS REPORT ---
:1940 [facility] Team Providers Name Role Phone Bennett Salmon Provider Role Unavailable Encounters Encounter Location Date Unknown [place] Staffing Operations Manager Aug 12, 2015 Unknown [place] Staff[employer] Operations Manager January 29, 2016 Unknown [place] [employer] Operations Manager March 11, 2016 Unknown [place] Staffing Operations Manager April 15, 2016 Unknown [place] Staffing Operations Manager Dec 19, 2014 PT/INR 3.0 [place] [employer] Manager Dec 19, 2014 Unknown [place] [employer]ing Operations Manager March 23, 2015 Unknown [place] [employer] Operations Manager April 15, 2016 Problems Problem Type Condition [...] Date End Date Status Dosage Cipro MEDISPAN [id number] 500 MG Orally April 15 1 tablet [...]
--- OUTSIDE RECORDS SUMMARY | 2019-03-27 11:44 | XMS REPORT ---
[...] Start Date End Date Status Dosage Denae [facility] [address] 5 MG Orally twice Jun 08, Active 1 tablet -21 a day 2016 Results No Known Results Summary Purpose eClinicalWorks Submission
--- OUTSIDE RECORDS SUMMARY | 2019-03-27 11:44 | XMS REPORT ---
:1940 Author Organization eClinical[employer] Care Team Providers Name Role Phone Melissa Salmon Provider Role Unavailable Encounters Encounter Location Date Unknown [place] Pyrotechnic Assembler Aug 12, 2015 Unknown [place] Py[employer] Assembl[employer] January 29, 2016 Unknown [place] Py[employer] Assembler Dec 19, 2014 PT/INR 3.0 [place] [employer] Dec 19, 2014 Unknown [place] [employer] As[employer] March 23, 2015 Problems Problem Type Condition [...]
--- OUTSIDE RECORDS SUMMARY | 2019-03-27 11:45 | XMS REPORT ---
:1940 [facility] Team Providers Name Role [...]
--- OUTSIDE RECORDS SUMMARY | 2019-03-27 11:45 | XMS REPORT ---
:1940 [facility] Team Providers Name Role Phone Melissa [...] Start Date End Date Status Dosage Edarbyclor [facility] [id number] 40-25 MG Orally January 17, Active 1 tablet -30 Once a day 2016 Results No Known Results Summary Purpose eClinicalWorks Submission
--- OUTSIDE RECORDS SUMMARY | 2019-03-27 11:45 | XMS REPORT ---
:1940 [facility] Team Providers Name Role Phone Bennett Salmon Provider Role Unavailable Encounters Encounter Location Date Unknown [place] Pre Press Operator Aug 12, 2015 Unknown [place] Pre Press Operator January 29, 2016 Unknown [place] Pre Press Operator March 11, 2016 Unknown [place] Pre Press Operator April 15, 2016 Unknown [place] Pre Press Operator Dec 19, 2014 PT/INR 3.0 [place] [employer] Operator Dec 19, 2014 Unknown [place] [employer] Press Operator March 23, 2015 Unknown [place] Pre Press Operator April 15, 2016 Problems Problem Type [...] Date End Date Status Dosage Cipro MEDISPAN [address] 500 MG Orally April 15 1 tablet [...]
--- OUTSIDE RECORDS SUMMARY | 2019-03-27 11:45 | XMS REPORT ---
:1939 [facility] Care Team Providers Name Role Phone Melissa Salmon Provider Role Unavailable Encounters Encounter Location Date Unknown [place] Bundle Shaker Aug 12, 2015 Unknown [place] [employer] [place] January 29, 2016 Unknown [place] [employer] [place] March 11, 2016 Unknown [place] [employer] [place] April 15, 2016 Unknown [place] [employer] [place] Dec 19, 2014 PT/INR 3.0 [place] [employer] [place] Dec 19, 2014 Unknown [place] [employer] [place] March 23, 2015 Unknown [place] [employer] [place] Dec 20, 2016 Unknown [place] [employer] [place] April 15, 2016 Other [place] Bundle [employer] Sep 09, 2016 Problems Problem Type Condition [...] End Status Dosage Date Date Tikosyn MEDISPAN [id number] 500 Inactive TAKE ONE CAPSULE BY MOUTH TWICE A DAY Dofetilide MEDISPAN [address]-17 500 MCG Orally Dec 20, Active 1 [...]
--- OUTSIDE RECORDS SUMMARY | 2019-03-27 11:45 | XMS REPORT ---
:1940 [facility] Team Providers Name Role Phone Melissa Salmon Provider Role Unavailable Encounters Encounter Location Date Unknown [place] [employer] Bonding Machine Operator Aug 12, 2015 Unknown [place] [employer] Bonding Machine Operator January 29, 2016 Unknown [place] [employer] Bonding Machine Operator March 11, 2016 Unknown [place] [employer] Bonding Machine Operator April 15, 2016 Unknown [place] [employer] Bonding Machine Operator Dec 19, 2014 PT/INR 3.0 [place] [employer] Bonding Machine Operator Dec 19, 2014 Unknown [place] [employer] Bonding Machine Operator March 23, 2015 Unknown [place] [employer] Bonding Machine Operator April 15, 2016 Other [place] [employer] Bonding Machine Operator Sep 09, 2016 Problems Problem Type [...] End Status Dosage Date Date Doxazosin MEDISPAN [id number] 4 Inactive TAKE ONE Mesylate TABLET BY [...]
--- NOTE | 2019-03-27 12:18 | RAD REPORT ---
EXAM DESCRIPTION: RAD - Foot Right 3 View - 03/27/2019 12:07 pm CLINICAL HISTORY: PAIN COMPARISON: No comparisons FINDINGS: Mild soft tissue swelling is seen along the dorsum of the foot and along the great toe. No fractures appreciated. Large plantar calcaneal spur seen.
[2019-03-27] MEDS ORDERED: LIDOCAINE 1% MPF 5 ML VIAL ONE (13:06)
[2019-03-27] MEDS ORDERED: TETANUS & DIPHTHERIA TOX,ADULT 0.5 ML VIAL ONE (13:07)
--- NOTE | 2019-03-27 13:47 | EDPHYS ---
Physician Documentation [facility] Name: Kristal You Age: 78 yrs Sex: Female : 1940 Arrival Date: 03/27/2019 Time: 11:39 Bed 15 Private MD: ED Physician Roger Samuels HPI: 03/27 13:41 This 78 yrs old Female presents to ER via Wheelchair with complaints of Toe pm1 Injury. 13:41 The patient presents with pain, that is acute. The complaints affect the Right first pm1 toenail. Context: The problem was sustained at home, resulted from the patient falling, Mechanism of Injury: kicked iron fence with right great toe after slipping on the water the patient can fully bear weight, the patient is able to ambulate. Onset: The symptoms/episode began/occurred just prior to arrival. Modifying factors: The symptoms are alleviated by nothing, the symptoms are aggravated by touching nail. Associated signs and symptoms: Pertinent negatives: calf tenderness, fever, nausea, numbness, rash, swelling, tingling, vomiting. Severity of symptoms: in the emergency department the symptoms are actually worse. The patient has not experienced similar symptoms in the past. The patient has not recently seen a physician. Historical: - Allergies: 12:00 namutol; iw - Home Meds: 12:00 aspirin 81 mg Oral chew 1 tab once daily [Active]; atenolol 50 mg Oral tab [Active]; iw bupropion HCl 150 mg Oral TbER 1 tab 3 times daily [Active]; clonidine HCl 0.1 mg Oral tab [Active]; dofetilide 500mcg Oral [Active]; Edarbyclor 40-25 mg Oral tab 1 tab [Active]; doxazosin 4 mg Oral tab 1 tab once daily [Active]; Eliquis 5 mg Oral tab 1 tab 2 times per day [Active]; hydralazine 10 mg Oral tab [Active]; levothyroxine 100 mcg tab once daily [Active]; liothyronine 5 mcg Oral tab [Active]; montelukast 10 mg Oral tab 1 tab [Active]; omeprazole 20 mg Oral cpDR [Active]; pravastatin 40 mg Oral tab [Active]; tramadol 50 mg Oral tab 1 tab [Active]; Vascepa 1 gram Oral cap [Active]; Vitamin D3 Oral 2 tab daily [Active]; - PMHx: 12:00 Asthma; Atrial Fib; CVA; Hypertension; Hypothyroidism; UTI; iw - PSHx: 12:00 Appendectomy; Cholecystectomy; Hysterectomy; Bladder suspension; RECTOCELE; Knee iw surgery; SHOULDER SURGERY; - Immunization history:: Adult Immunizations unknown. - Social history:: Smoking status: Patient/guardian denies using tobacco. - Ebola Screening: : No symptoms or risks identified at this time. ROS: 13:41 MS/extremity: Positive for pm1 13:41 Constitutional: Negative for fever, chills, and weight loss, Eyes: Negative for injury, pain, redness, and discharge, ENT: Negative for injury, pain, and discharge, Neck: Negative for injury, pain, and swelling, Cardiovascular: Negative for chest pain, palpitations, and edema, Respiratory: Negative for shortness of breath, cough, wheezing, and pleuritic chest pain, Abdomen/GI: Negative for abdominal pain, nausea, vomiting, diarrhea, and constipation, Back: Negative for injury and pain, : Negative for injury, bleeding, discharge, and swelling. 13:41 Neuro: Negative for headache, weakness, numbness, tingling, and seizure. 13:41 MS/extremity: Positive for pain, of the right first toe and Right first toenail, Negative for decreased range of motion, deformity. 13:41 Skin: Positive for of the Right first toenail, avulsion. Exam: 13:41 Constitutional: This is a well developed, well nourished patient who is awake, alert, pm1 and in no acute distress. Head/Face: Normocephalic, atraumatic. Eyes: Pupils equal round and reactive to light, extra-ocular motions intact. Lids and lashes normal. Conjunctiva and sclera are non-icteric and not injected. Cornea within normal limits. Periorbital areas with no swelling, redness, or edema. ENT: Nares patent. No nasal discharge, no septal abnormalities noted. Tympanic membranes are normal and external auditory canals are clear. Oropharynx with no redness, swelling, or masses, exudates, or evidence of obstruction, uvula midline. Mucous membranes moist. Neck: Trachea midline, no thyromegaly or masses palpated, and no cervical lymphadenopathy. Supple, full range of motion without nuchal rigidity, or vertebral point tenderness. No Meningismus. Chest/axilla: Normal chest wall appearance and motion. Nontender with no deformity. No lesions are appreciated. Cardiovascular: Regular rate and rhythm with a normal S1 and S2. No gallops, murmurs, or rubs. Normal PMI, no JVD. No pulse deficits. Respiratory: Lungs have equal breath sounds bilaterally, clear to auscultation and percussion. No rales, rhonchi or wheezes noted. No increased work of breathing, no retractions or nasal flaring. Abdomen/GI: Soft, non-tender, with normal bowel sounds. No distension or tympany. No guarding or rebound. No evidence of tenderness throughout. Back: No spinal tenderness. No costovertebral tenderness. Full range of motion. Skin: Warm, dry with normal turgor. Normal color with no rashes, no lesions, and no evidence of cellulitis. 13:41 Musculoskeletal/extremity: Extremities: grossly normal except: noted in the right first toe: avulsion. Vital Signs: 12:19 BP 132 / 79; Pulse 79; Resp 16; Temp 97.8; Pulse Ox 99% on R/A; ph 14:54 BP 136 / 72; Pulse 72; Resp 18; Temp 98.0; Pulse Ox 99% on R/A; ph Procedures: 13:41 Performed Repair of right great toe nail avulsion and nail bed laceration. Digital pm1 block with 2 ml of Lidocaine 1%. Lateral aspect of toe nail reduced under the cuticle. 1 single Figure 8 suture placed with 4-0 Prolene to secure toe nail in place. Patient tolerated procedure well. MDM: 11:48 Patient medically screened. pm1 13:41 Data reviewed: vital signs. Counseling: I had a detailed discussion with the patient pm1 and/or guardian regarding: the historical points, exam findings, and any diagnostic results supporting the discharge/admit diagnosis, radiology results, the need for outpatient follow up, suture removal in 10 - 14 days, to return to the emergency department if symptoms worsen or persist or if there are any questions or concerns that arise at home. 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 Exp: ph 01/12/2021. Lot #: [id number]. } Route: IM; Site: right deltoid; 14:54 Follow up: Response: No adverse reaction ph 13:30 Drug: Lidocaine (1 %) 5 ml Volume: 5 ml; Route: Infiltration; ph 14:53 Follow up: Response: No adverse reaction ph Disposition: 15:54 Co-signature as Attending Physician, Roger Samuels MD. rn Disposition: 03/27/19 13:46 Discharged to Home. Impression: Right great toe nail avulsion injury. - Condition is Stable. - Discharge Instructions: Nail Avulsion, Nail Bed Laceration. - Prescriptions for Keflex 500 mg Oral Capsule - take 1 capsule by ORAL route every 12 hours for 10 days; 20 capsule. - Medication Reconciliation Form, Thank You Letter, Antibiotic Education, Prescription Opioid Use form. - Follow up: Emergency Department; When: As needed; Reason: Worsening of condition. Follow up: Private Physician; When: 2 - 3 days; Reason: Recheck today's complaints, Continuance of care, Re-evaluation by your physician. - Problem is new. - Symptoms have improved. Signatures: Dispatcher [employer] EDMS Sherice Tracy RN RN iw Nieto, Roman, MD MD rn Hall, Patricia, RN RN ph Marinas, Patrick, DAMIÁN RELIEF DRILLER pm1 Corrections: (The following items were deleted from the chart) 13:52 13:41 Performed Partial right great toe nail avulsion. Digital block with 2 ml of pm1 Lidocaine 1%. Lateral aspect of toe nail reduced under the cuticle. 1 single Figure 8 suture placed with 4-0 Prolene. Patient tolerated procedure well. pm1 14:54 13:46 03/27/2019 13:46 Discharged to Home. Impression: Right great toe nail avulsion ph injury. Condition is Stable. Forms are Medication Reconciliation Form, Thank You Letter, Antibiotic Education, Prescription Opioid Use. Follow up: Emergency Department; When: As needed; Reason: Worsening of condition. Follow up: Private Physician; When: 2 - 3 days; Reason: Recheck today's complaints, Continuance of care, Re-evaluation by your physician. Problem is new. Symptoms have improved. pm1
--- NOTE | 2019-03-27 13:47 | ER ---
Nurse's Notes [facility] Name: Kristal You Age: 78 yrs Sex: Female : 1940 Arrival Date: 03/27/2019 Time: 11:39 Bed 15 Private MD: Diagnosis: Right great toe nail avulsion injury Presentation: 03/27 11:56 Presenting complaint: Patient states: tripped outside on concrete, hit right great toe iw against wrought iron fence post, avulsion to nail noted, pt on blood thinners, bleeding is controlled at this time. Transition of care: patient was not received from another setting of care. Onset of symptoms was March 27, 2019. Risk Assessment: Do you want to hurt yourself or someone else? Patient reports no desire to harm self or others. Initial Sepsis Screen: Does the patient meet any 2 criteria? No. Patient's initial sepsis screen is negative. Does the patient have a suspected source of infection? No. Patient's initial sepsis screen is negative. Care prior to arrival: None. 11:56 Method Of Arrival: Wheelchair iw 11:56 Acuity: LUCINA 4 iw Historical: - Allergies: 12:00 namutol; iw - Home Meds: 12:00 aspirin 81 mg Oral chew 1 tab once daily [Active]; atenolol 50 mg Oral tab [Active]; iw bupropion HCl 150 mg Oral TbER 1 tab 3 times daily [Active]; clonidine HCl 0.1 mg Oral tab [Active]; dofetilide 500mcg Oral [Active]; Edarbyclor 40-25 mg Oral tab 1 tab [Active]; doxazosin 4 mg Oral tab 1 tab once daily [Active]; Eliquis 5 mg Oral tab 1 tab 2 times per day [Active]; hydralazine 10 mg Oral tab [Active]; levothyroxine 100 mcg tab once daily [Active]; liothyronine 5 mcg Oral tab [Active]; montelukast 10 mg Oral tab 1 tab [Active]; omeprazole 20 mg Oral cpDR [Active]; pravastatin 40 mg Oral tab [Active]; tramadol 50 mg Oral tab 1 tab [Active]; Vascepa 1 gram Oral cap [Active]; Vitamin D3 Oral 2 tab daily [Active]; - PMHx: 12:00 Asthma; Atrial Fib; CVA; Hypertension; Hypothyroidism; UTI; iw - PSHx: 12:00 Appendectomy; Cholecystectomy; Hysterectomy; Bladder suspension; RECTOCELE; Knee iw surgery; SHOULDER SURGERY; - Immunization history:: Adult Immunizations unknown. - Social history:: Smoking status: Patient/guardian denies using tobacco. - Ebola Screening: : No symptoms or risks identified at this time. Screenin:21 Abuse screen: Denies threats or abuse. Denies injuries from another. Nutritional ph screening: No deficits noted. Tuberculosis screening: No symptoms or risk factors identified. Fall Risk None identified. Assessment: 12:00 General: Appears in no apparent distress. comfortable, well groomed, Behavior is calm, ph cooperative, appropriate for age. Pain: Complains of pain in Right first toenail. Neuro: Level of Consciousness is awake, alert, obeys commands, Oriented to person, place, time, situation. Cardiovascular: Capillary refill < 3 seconds in bilateral fingers Patient's skin is warm and dry. Respiratory: Airway is patent Respiratory effort is even, unlabored, Respiratory pattern is regular, symmetrical. GI: No signs and/or symptoms were reported involving the gastrointestinal system. Derm: Skin is healthy with good turgor, Skin is pink, warm \T\ dry. Musculoskeletal: Circulation, motion, and sensation intact. Range of motion: intact in all extremities. 13:55 Reassessment: Called patient's family member at phone number provided to attempt to aj notify them that patient is ready for discharge. No answer, will continue to attempt to make contact. 14:28 Reassessment: Patient appears in no apparent distress at this time. Patient and/or ph family updated on plan of care and expected duration. Pain level reassessed. Patient is alert, oriented x 3, equal unlabored respirations, skin warm/dry/pink. Pt resting quietly, awaiting ride home. Vital Signs: 12:19 BP 132 / 79; Pulse 79; Resp 16; Temp 97.8; Pulse Ox 99% on R/A; ph 14:54 BP 136 / 72; Pulse 72; Resp 18; Temp 98.0; Pulse Ox 99% on R/A; ph ED Course: 11:39 Patient arrived in ED. hj 11:44 Alin Meza NP is PHCP. pm1 11:44 Roger Samuels MD is Attending Physician. pm1 11:58 Triage completed. iw 12:09 Foot Right 3 View XRAY In Process Unspecified. EDMS 12:19 Candelaria Ramirez, RN is Primary Nurse. ph 12:21 Arm band placed on Patient placed in an exam room, on a stretcher, on pulse oximetry. ph 12:22 Patient has correct armband on for positive identification. Bed in low position. Call ph light in reach. Side rails up X 1. Pulse ox on. NIBP on. Door closed. Noise minimized. Warm blanket given. 14:53 No provider procedures requiring assistance completed. Patient did not have IV access ph during this emergency room visit. Ortho shoe applied to right foot. Administered Medications: 13:00 Drug: Tetanus-Diphtheria Toxoid Adult 0.5 ml {Accounting Advisory Services Manager: [employer]. Exp: ph 01/12/2021. Lot #: [id number]. } Route: IM; Site: right deltoid; 14:54 Follow up: Response: No adverse reaction ph 13:30 Drug: Lidocaine (1 %) 5 ml Volume: 5 ml; Route: Infiltration; ph 14:53 Follow up: Response: No adverse reaction ph Outcome: 13:46 Discharge ordered by MD. pm1 14:53 Discharged to home via wheelchair, with family. ph 14:53 Condition: good 14:53 Discharge instructions given to patient, Instructed on discharge instructions, follow up and referral plans. medication usage, Demonstrated understanding of instructions, follow-up care, medications, Prescriptions given X 1. 14:54 Patient left the ED. ph Signatures: Dispatcher [employer] EDMS Kelsey Hoover RN RN aj Williams, Irene, RN RN iw Hall, Patricia, RN RN ph Joaquin, Henry, RN RN hj Marinas, Patrick, DAMIÁN SANDING MACHINE OPERATOR OR TENDER pm1
[2019-03-27 16:04] VITALS: O2SAT 99
[2019-03-27 16:06] VITALS: BP 136/72; TEMP 98
== END 2019-03-27 14:54 | disposition home or self-care (01) ==
LOC: ER 11:37
PROC: 0HDRXZZ Extraction of Toe Nail, External Approach (ICD-10-PCS; principal; 2019-03-27)
DX: S91.201A Unspecified open wound of right great toe with damage to nail, initial encounter (principal); W01.198A Fall on same level from slipping, tripping and stumbling with subsequent striking against other object, initial encounter; Y93.89 Activity, other specified; Y92.009 Unspecified place in unspecified non-institutional (private) residence as the place of occurrence of the external cause; Z23 Encounter for immunization; Z79.01 Long term (current) use of anticoagulants; Z79.82 Long term (current) use of aspirin; Z88.8 Allergy status to other drugs, medicaments and biological substances; Z86.73 Personal history of transient ischemic attack (TIA), and cerebral infarction without residual deficits; I10 Essential (primary) hypertension; E03.9 Hypothyroidism, unspecified; I48.91 Unspecified atrial fibrillation
CPT/HCPCS: 90471; 90714; 99284

== ENCOUNTER 2019-09-24 15:40 | Observation (INO) | payer OTHER, MEDICARE ==
[2019-09-24 16:39] LABS: Urine Appearance CLEAR; Urine Bilirubin NEGATIVE (NEG); Urine Blood NEGATIVE (NEG); Urine Color YELLOW; Urine Glucose NEGATIVE (NEG); Urine Protein 1+ (NEG); Urine Urobilinogen 0.2 mg/dL (0.2-1.0); Urine pH 6.5 (5.0-7.0)
[2019-09-24 16:52] LABS: Urine Bacteria <20 /HPF (<20); Urine Culture Reflex Order NOT NEEDED; Urine Microscopic Reflex ORDER UMIC; Urine RBC <5 /HPF (NONE SEEN)
[2019-09-24 17:07] LABS: Absolute Lymphocytes (CBC) 1.2 K/uL (0.7-4.9); Basophils % 0.5 % (0-1.3); Hematocrit 39.8 % (36.0-45.0); Lymphocytes % 20.5 % (15.3-44.8); RBC Red Blood Cell Count 4.38 M/uL (3.86-4.86)
--- NOTE | 2019-09-24 17:33 | RAD REPORT ---
EXAM DESCRIPTION: Rosas Zee And Juan (2 Views)09/24/2019 5:16 pm CLINICAL HISTORY: Atrial fibrillation COMPARISON: October 2018 FINDINGS: The lungs appear clear of acute infiltrate. The heart is mildly enlarged IMPRESSION: No acute abnormalities displayed
[2019-09-24 17:34] LABS: Albumin 3.7 g/dL (3.4-5.0); Bilirubin Total 0.3 mg/dL (0.2-1.0); Potassium 3.4 mmol/L (3.5-5.1); Protein, Total 7.5 g/dL (6.4-8.2); Thyroid Stimulating Hormone 2.11 uIU/mL (0.360-3.740)
[2019-09-24] MEDS ORDERED: ALBUTEROL INHALER 60 PUFF/8 GM IH PRN (18:15)
[2019-09-24] MEDS ORDERED: BEPREVE EYE EACH EYE PRN (18:15)
[2019-09-24 18:44] VITALS: BMI 45.3
[2019-09-24] MEDS: APIXABAN 5 MG TABLET PO SCH (18:53)
[2019-09-24] MEDS ORDERED: HOME MED 1 EA UNK (Hydralazine Hcl [Hydralazine Hcl] 50 MG) PO SCH (21:00)
[2019-09-24] MEDS ORDERED: atenoloL 50 MG TAB PO SCH (21:00)
[2019-09-24] MEDS ORDERED: HOME MED 1 EA UNK (Pravastatin Sodium [Pravastatin Sodium] 40 MG) PO SCH (21:00)
[2019-09-24] MEDS ORDERED: ATORVASTATIN 10 MG TAB PO SCH (21:00)
[2019-09-24] MEDS ORDERED: POTASSIUM CL SA 10 MEQ TAB PO ONE (21:00)
[2019-09-24] MEDS ORDERED: DOFETILIDE 500 MCG PO SCH (21:00)
[2019-09-24] MEDS ORDERED: DOXAZOSIN 4 MG TAB PO SCH (21:00)
[2019-09-24] MEDS: HYDRALAZINE HCL 25 MG TABLET PO SCH (21:42)
[2019-09-24] MEDS: cloNIDine HCL 0.1 MG TAB PO SCH (21:42)
[2019-09-24] MEDS: GABAPENTIN 100 MG CAP PO SCH (21:43)
--- NOTE | 2019-09-24 23:09 | CON ---
Reason For Consult: Atrial fibrillation. History Of Present Illness: Mrs. You has had atrial fibrillation for several years. It has been controlled on dofetilide, but for the last 2 weeks it sounds like she has been in constant atrial fi brillation. She saw Dr. Gurrola today and he placed her in the hospital. She has a history of hyperten venessa, asthma, hypothyroidism, and dyslipidemia. She does not have diabetes. She has never had myoca rdial infarction or stroke. Her early recent stress test and echo does indicate a structurally maren l heart. Medications: Outpatient medications have been albuterol, Eliquis, atenolol, azilsartan, clonidine, d ofetilide 500 b.i.d., doxazosin 6 mg a day, gabapentin, hydralazine, Vascepa, levothyroxine, liothyro nine, omeprazole, and Pravachol. She reports drug intolerance to LETY inhibitors. Physical Examination: General: She is 5 feet 2 inches, 252 pounds. Vital Signs: Heart rate is about 125, irregularly irregular. We have no EKG or telemetry hookup as of yet. Neck: Carotids, no bruit. Lungs: No wheezing. Heart: Irregularly irregular. No murmur or gallop. Abdomen: Soft. Extremities: 1+ edema. Distal pulses palpable. The patient is not a tobacco user. Impression: The patient has atrial fibrillation that is out of control. I do not think it is saleh t o try a higher dose of dofetilide, but I will consult with electrophysiology colleagues. I do think we should try to cardiovert her since she has been on apixaban 5 b.i.d. The whole time, she has been in atrial fibrillation. We can do it safely without transesophageal echocardiography first. We will plan a cardioversion tomorrow, possibly increase dofetilide. RAQUEL/JAMIL Voice ID: [id number] Report ID: [id number]
--- NOTE | 2019-09-24 23:52 | HP ---
Date of Admission: 09/24/2019 Chief Complaint: Problem with atrial fibrillation. History Of Present Illness: Ms. You is a pleasant female patient who came into office with her d audrey today. She has a history of atrial fibrillation, takes her medications regularly and today s he reported that for last 2 weeks she is having problem with her atrial fibrillation and the symptoms she describes as vague chest pain, palpitation type of feeling, feeling weak, short of breath with d ay-to-day activity. Denies any fever, nausea, vomiting, diarrhea. No bleeding problems. After she was evaluated, she was admitted to the hospital. Patient reports that her heart rate at home in last 2 weeks has gone up to as high as 180 beats per minute. Allergies: NO KNOWN ALLERGIES. Medications: List reviewed. Review of Systems: Cardiovascular: As mentioned above. All other systems reviewed and negative. Past Medical History: Stroke, allergic rhinitis, hypothyroidism, impaired fasting glucose, hypertens ion, hyperlipidemia, paroxysmal atrial fibrillation, hyponatremia, and asthma. Past Surgical History: Cholecystectomy, appendectomy, rectocele repair, hysterectomy, bladder suspen venessa, shoulder surgery, carpal tunnel syndrome surgery, knee surgery. Family History: Father with heart disease. Mother with pancreatic cancer. Sister also palomino d pancreatic cancer. Social History: Prior history of smoking, not at present time. Use of alcohol negative. Physical Examination: Vital Signs: Blood pressure 155/63; pulse rate 120 per minute, irregular; temperature 98.3; respirat ory rate 15; weight 252.2 pounds; oxygen saturation 95%; height 62 inches. General: Awake, alert, oriented, not in distress. HEENT: Head atraumatic, normocephalic. Conjunctivae nonerythematous. Sclerae white. Mouth, no thr ush or edema noted. Ears/Nose, no mass, lesion, discharge noted. Neck: Supple. No JVD, lymph nodes, bruit, thyromegaly noted. Lungs: Bilateral good equal air entry. Clear to auscultation. No rhonchi. No rales. Heart: Heart sounds normal. Irregular heart rhythm. Abdomen: Soft, bowel sounds normal. No guarding, rigidity, tenderness, mass, hepatosplenomegaly, dis tention, or bruit noted. Extremities: Shows trace leg edema. Skin: No rash, ulcer, cellulitis. Lymphatics: No lymph node enlargement in neck, supraclavicular, infraclavicular region. Neuro: No focal neurological deficit. Chest: Unremarkable. External Genitalia: Deferred. Rectal: Deferred. Laboratory Data: White count 6, hemoglobin 13.6, platelets 159. Sodium 133, potassium 3.4, chloride 102, bicarb 26, BUN 10, creatinine 0.97, glucose 120. Liver function test normal. TSH 2.1. Impression: 1.Atrial fibrillation, chronic. 2.Hypertension. 3.Hyperlipidemia. 4.Hypothyroidism. 5.Asthma, mild, intermittent. 6.Chronic anticoagulation therapy. 7.Impaired fasting glucose. Plan: Admit patient to hospital for further evaluation and management of this problem. The patient is appropriate for inpatient and is expected to spend 2 midnights in hospital. We will admit her to telemetry. Home medications will be continued per order. We will consult ecological modeler for adjustmen t on her antiarrhythmic medication as she takes her medications regularly as prescribed by cardiologi , but apparently it has not helped to control her atrial fibrillation problem at this point. Kristopher jose and plan of treatment discussed with the patient. We will go ahead and get an echo with Doppler tomorrow and I will see her tomorrow for followup. YOLY/MODL Voice ID: [id number]
[2019-09-25 03:29] LABS: Potassium 3.9 mmol/L (3.5-5.1)
[2019-09-25] MEDS ORDERED: LEVOTHYROXINE SOD 0.112 MG TAB PO SCH (06:00)
[2019-09-25] MEDS ORDERED: LIOTHYRONINE SOD 5 MCG TAB PO SCH (06:00)
[2019-09-25] MEDS: APIXABAN 5 MG TABLET PO SCH (07:24)
[2019-09-25] MEDS ORDERED: PANTOPRAZOLE 40MG TABLET PO SCH (07:30)
[2019-09-25] MEDS ORDERED: FLUMAZENIL 0.1 MG/ML (5 mL VIAL) IV ONE (07:31)
[2019-09-25] MEDS ORDERED: MIDAZOLAM HCL 2 MG/2 ML INJ ONE (07:31)
[2019-09-25] MEDS ORDERED: FENTANYL CITR 100 MCG/2 ML ONE (07:35)
[2019-09-25] MEDS ORDERED: ICOSAPENT ETHYL 1 GM CAP PO SCH (08:00)
--- NOTE | 2019-09-25 08:57 | EKG ---
Test Date: 2019-09-24 Test Time: 18:18:55 Paper Winder: MARY MEASUREMENT RESULTS: Intervals: Rate: 102 UT: QRSD: 84 QT: 410 QTc: 534 [place]: P: UT: QRS: 45 T: 107 INTERPRETIVE STATEMENTS: Atrial fibrillation with rapid ventricular response Nonspecific ST and T wave abnormality Prolonged QT Abnormal ECG Compared to ECG 11/22/2018 07:54:57 ST (T wave) deviation now present Sinus rhythm no longer present First degree AV block no longer present Electronically Signed On 09-25-19 08:57:02 DRINK WAITER by Rosalio Carver
[2019-09-25] MEDS ORDERED: AZILSARTAN MED PO SCH (09:00)
[2019-09-25] MEDS ORDERED: DOXAZOSIN 2 MG TAB PO SCH (09:00)
[2019-09-25] MEDS ORDERED: VITAMIN D 5,000 UNIT CAP PO SCH (09:00)
[2019-09-25] MEDS ORDERED: CHLORTHALIDONE PO SCH (09:00)
[2019-09-25] MEDS ORDERED: HOME MED 1 EA UNK (Omeprazole [Omeprazole] 20 MG) PO SCH (09:00)
[2019-09-25] MEDS: HYDRALAZINE HCL 25 MG TABLET PO SCH (09:20)
[2019-09-25] MEDS: cloNIDine HCL 0.1 MG TAB PO SCH (09:20)
[2019-09-25] MEDS: GABAPENTIN 100 MG CAP PO SCH ×2 (09:20→13:02)
--- NOTE | 2019-09-25 10:53 | PN ---
Mrs. You was in AFib this morning. We were getting ready to do a cardioversion and before she wa s sedated or received any kind of shock, she reverted to sinus rhythm. This makes the concern that h er AFib could be a question of poor compliance. It could be that she does not take the dofetilide ap propriately and I assume she got 2 doses here in the hospital, 1 last night and 1 this morning, she r everted to sinus. It is at least a thought. I think it should be investigated by getting the family to do pill counts and make sure things are right. At this point, I would not change her medicines. If dofetilide proves to be a failure when we are sure she is compliant, then we can switch to amioda ben at some later point. RAQUEL/JAMIL Voice ID: [id number] Report ID: [id number]
[2019-09-25 12:51] VITALS: O2SAT 97
[2019-09-25 13:23] VITALS: BP 119/48; TEMP 97.4
--- NOTE | 2019-09-26 18:40 | DS ---
Date of Discharge: 09/25/2019 Disposition: Discharged to go home. Physical Examination: HEENT: Unremarkable. Lungs: Clear to auscultation. Heart: Sounds normal. Abdomen: Soft. Bowel sounds normal. No guarding, rigidity, tenderness, or distention. Extremities: No leg edema. Laboratory Data: Upon admission yesterday; sodium 133, potassium 3.4, chloride 102, bicarb 26, BUN 1 0, creatinine 0.97, glucose 120. Liver function tests unremarkable. TSH 2.11. Today; sodium 137, p otassium 3.9, chloride 104, bicarb 28, BUN 10, creatinine 0.92, glucose 110. Hospital Course: This is an 79-year-old female patient who was admitted to the hospital after she ca me into office with her daughter with 2 weeks history of atrial fibrillation problem. Please see dic tiffanie H and Amber for more information. The patient was having symptoms led to her atrial fibrillation w ith rapid ventricular rate in form of chest pain, palpitations, weakness, shortness of breath. After she was evaluated at office, she was admitted to the hospital. Her heart rate at home had gone up a s high as 180 beats per minute as reported by patient's daughter. After she was admitted to the hosp ital, her home medications were continued. We did not change the dose any of her medication and we d id not add any new medications. Cardiology consultation was requested from Dr. Carver. Her oral ant icoagulation therapy that she takes at home was continued. This morning, Dr. Carver was planning to do electrical cardioversion and he transferred the patient to intensive care unit and while she was o n the monitor in the ICU, we noted that she had converted spontaneously to normal sinus rhythm. Dr. Carver canceled plans for electrical cardioversion as patient spontaneously converted to sinus rhythm on her own. She received her 2 doses of antiarrhythmic medication, 1 dose last night, 1 dose this m orning. Dr. Carver did talk to me, informed me that at this point his recommendation is not to maharaj e any medication and he is raising concern about the patient's compliance with medications and I agre e with that then at least we need to look into that as a possibility to make sure that she is taking her medications correctly. So, what I will do is when she comes to office next week for followup vis it at that time, patient should bring all her medication bottles with her and I will communicate with her about this compliance issue and depending on that we will decide what else needs to be done. cydney normally sees Dr. Dunn as her loader technician and I have advised her to follow up with him either n ext week or week after next. This patient is compliant with her medication for atrial fibrillation, then Dr. Cavrer suggested that loader technician will consider change to amiodarone. No changes were kyle mmended by loader technician during this admission. Final Diagnoses: 1.Atrial fibrillation, chronic. 2.Hypertension. 3.Hyperlipidemia. 4.Hypothyroidism. 5.Asthma, mild, intermittent. 6.Chronic anticoagulation therapy. 7.Impaired fasting glucose. 8.Hypokalemia. YOLY/MODL Voice ID: [id number] Report ID: [id number]
== END 2019-09-25 15:34 | disposition home or self-care (01) ==
LOC: INTOOBSV 15:40 → 4TH 15:40 → 3RD-ICU 09-25 07:39 → 4TH 09-25 08:00
PROVIDERS: ADMIT Internal Medicine; ATTEND Internal Medicine
DX: I48.20 Chronic atrial fibrillation, unspecified (principal); Z79.01 Long term (current) use of anticoagulants; I10 Essential (primary) hypertension; E78.5 Hyperlipidemia, unspecified; E03.9 Hypothyroidism, unspecified; J45.20 Mild intermittent asthma, uncomplicated; R73.01 Impaired fasting glucose; E87.6 Hypokalemia
CPT/HCPCS: 93005; 87088; 85025; 87086; 80048; 36415; 83735; 84443; 80053; 71046; J2250; G0379; G0378 ×3; 81003; 81015; J3010

== ENCOUNTER 2019-10-22 16:50 | Emergency (ER) | payer OTHER, MEDICARE ==
--- OUTSIDE RECORDS SUMMARY | 2019-10-22 16:52 | XMS REPORT | Summary of Care ---
:1940 Author Name LEO MURRELL N.P. Address [facility] Unavailable , Care Team Providers Name Role Phone HANDY Rios, LEO Unavailable Unavailable AURORA BLAKE MD Unavailable Unavailable ABISAI SALTER MD Unavailable Unavailable HANDY [facility] [place] Unavailable Unavailable Unavailable Unavailable Unavailable Functional Status Name Dates Details Functional status health issues are not documented Status: Name Dates Details Cognitive status health issues are not documented Status: Problems Name Dates Details Renal disease (593.9, N28.9) Status: Active Anxiety disorder, unspecified type (300.00, F41.9) Status: Active Moderate obstructive sleep apnea (327.23, G47.33) Status: Active Muscle cramp (729.82, R25.2) Status: Active Atrial fibrillation (427.31, I48.91) Status: Active Morbid obesity (278.01, E66.01) Status: Active Depression screen (V79.0, Z13.31) Status: Active Cerebral infarction (434.91, I63.9) Status: Active Essential hypertension (401.9, I10) Status: Active Sleep apnea (780.57, G47.30) Status: Active Medications Name Dates Details Viteyes Complete Oral Capsule TAKE 1 CAPSULE DAILY. Quantity: 30 Refills: 0 OKPALA N.P., MUNACHI Start : 06-Jan-2015 Active Liothyronine Sodium 5 MCG Oral Tablet TAKE 1 TABLET DAILY. Quantity: 30 Refills: 3 OKPALA N.P., MUNACHI Start : 06-Jan-2015 Active Doxazosin Mesylate 4 MG Oral Tablet TAKE 1 TABLET DAILY. Quantity: 90 Refills: 1 OKPALA N.P., MUNACHI Start : 06-Jan-2015 Active Pravastatin Sodium 40 MG Oral Tablet TAKE 1 TABLET DAILY. Quantity: 30 Refills: 0 OKPALA N.P., MUNACHI Start : 22-May-2015 Active Dofetilide 500 MCG Oral Capsule 1 capsule daily Quantity: 30 Refills: 0 OKPALA N.P., MUNACHIActive Vitamin D-3 CAPS 1 tablet daily Refills: 0 Active Vascepa 1 GM Oral Capsule 1 capsule daily Quantity: 30 Refills: 0 HANDY Avalos.LEO CrookActive Edarbyclor 40-25 MG Oral Tablet TAKE 1 TABLET BY MOUTH ONCE DAILY Quantity: 30 Refills: 3 HNADY Avalos.Armaan LEO Start : 09-Feb-2017 Active Eliquis 5 MG Oral Tablet Take 1 tablet by mouth two times daily Quantity: 180 Refills: 1 HANDY Avalos.Armaan LEO Start : 08-Aug-2017 Active Atenolol 50 MG Oral Tablet TAKE 0.5 TABLET DAILY Refills: 0 Start : 08-Aug-2018 Active 45 Tablet Bottle Methocarbamol 500 MG Oral Tablet TAKE 1 TABLET TWICE DAILY Refills: 0 Start : 08-Aug-2018 Active Symbicort 160-4.5 MCG/ACT Inhalation Aerosol USE DIRECTED. Refills: 0 Start : 08-Aug-2018 Active 6 GM Inhaler Levothyroxine Sodium 100 MCG Oral Tablet TAKE 1 TABLET DAILY. Refills: 0 Start : 08-Aug-2018 Active hydrALAZINE HCl - 10 MG Oral Tablet Refills: 0 Start : 08-Aug-2018 Active Omeprazole 20 MG Oral Capsule Delayed Release TAKE 1 CAPSULE DAILY EVERY MORNING BEFORE BREAKFAST. Refills: 0 Start : 08-Aug-2018 Active Aspirin 81 MG Oral Tablet Delayed Release TAKE 1 TABLET DAILY. Refills: 2 Start : 08-Aug-2018 Active Montelukast Sodium 10 MG Oral Tablet TAKE 1 TABLET DAILY. Refills: 0 Start : 08-Aug-2018 Active Allergies and Adverse Reactions Name Dates Details Nembutal (Allergy) Status: Active Past Medical History Name Dates Details History of angina pectoris (V12.59, Z86.79) Status: Resolved History of hypothyroidism (V12.29, Z86.39) Status: Resolved History of Macular degeneration (362.50, H35.30) Status: Resolved History of mitral valve prolapse (V12.59, Z86.79) Status: Resolved Procedures Procedure Dates Details History of Hysterectomy Completed History of Appendectomy Completed History of Bladder Surgery Completed History of Neuroplasty Decompression Median Nerve At Carpal Tunnel Completed History of Esophagogastric Fundoplasty Carlos Fundoplication Completed History of Knee Surgery Right Completed Immunization Name Dates Details Immunizations not documented Family History Name Dates Details Family history of pancreatic cancer (V16.0, Z80.0) Status: Active Name Dates Details Family history of cardiac disorder (V17.49, Z82.49) Status: Active Social History Name Dates Details - Status: Name Dates Details Former smoker Vital Signs Date Test Result Details [id number] BP Systolic 152 mm[Hg] Status: Comments: Location: LUE; Position: Sitting BP Diastolic 76 mm[Hg] Status: Comments: Location: LUE; Position: Sitting Height 62 in Status: Weight 248.5 lb Status: Body Mass Index Calculated 45.45 kg/m2 Status: Body Surface Area Calculated 2.1 m2 Status: Heart Rate 66 /min Status: Comments: Location: L Brachial Artery; Results Date Description Value Details Results not documented Plan of Care Name Dates Details Planned Observations Planned Goals not documented Planned Encounters Appointment; LEO MURRELL NP On: 17-Jul-2020 11:30 Interventions Provided Plan-- Reinforced management of risk factors and lifestyle changes -- Your blood pressure goal is less than 140/90 -- Continue current anti-hypertensive medications -- Discussed with patient lifestyle changes including a healthy low sodium diet and regular exercise -- Management of hypertension includes home blood pressure monitoring and daily recording of blood pressure readings in a blood pressure log -- Monitor your blood pressure times daily and record in a blood pressure log -- LDL goal is less than 70 -- HDL goal > 55 -- Triglyceride goal < 150 -- Continue statin for lipid management -- Discussed with patient lifestyle changes including a Mediterranean style diet and regular exercise -- Reinforced use of CPAP -- Continue anticoagulant medication -- Home safety and adaptive equipment discussedDiscussion/SummaryMrsChina Hernandez is a 79 year old right handed female with pmhx of hypertension, coronary artery disease , GERD, hyperthyroidism and mitral valve prolapse who suffered 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 Residual deficits include expressive aphasia.. Instructions Name Dates Details Instructions not documented Encounters Appointment; LEO MURRELL NP On: 08-Aug-2017 11:30 Encounter Diagnosis: Problem not documented Appointment; LEO MURRELL NP On: 08-Aug-2018 11:30 Encounter Diagnosis: Problem not documented Appointment; LEO MURRELL NP On: 23-Jul-2019 11:30 Encounter Diagnosis: Problem not documented
[2019-10-22] MEDS ORDERED: CYCLOBENZAPRINE 10 MG TAB ONE (17:58)
[2019-10-22] MEDS ORDERED: dexAMETHasone 10 MG/ML VIAL ONE (17:58)
[2019-10-22] MEDS ORDERED: HYDROCODONE/APAP 5/325 MG TAB ONE (17:59)
--- NOTE | 2019-10-22 19:06 | EDPHYS ---
Physician Documentation [facility] Name: Kristal You Age: 79 yrs Sex: Female : 1940 Arrival Date: 10/22/2019 Time: 16:53 Bed 23 Private MD: Khadijah Gurrola C ED Physician Roger Samuels HPI: 10/22 17:50 This 79 yrs old Female presents to ER via Wheelchair with complaints of Hip rn Pain. 17:50 The patient or guardian reports pain. The complaints affect the left hip. Onset: The rn symptoms/episode began/occurred 1 week(s) ago. Modifying factors: The symptoms are alleviated by remaining still, the symptoms are aggravated by any movement. Severity of symptoms: At their worst the symptoms were moderate, in the emergency department the symptoms are unchanged. The patient has experienced similar episodes in the past, chronically. Reports back pain and hip pain for years, sees pain management for this, takes norco, denies new injury or new type/different type of pain, has appt with pain management in 2 days, but has been in pain for 1 week and not getting better. No fever. No bowel/bladder problems.. Historical: - Allergies: 17:03 namutol; aj1 - Home Meds: 17:03 baclofen 10 mg Oral tab 1 tab at bedtime [Active]; gabapentin 100 mg oral cap 1 caps 3 aj1 times per day [Active]; doxazosin 4 mg Oral tab 1 tab 1/2 tab in the am and 1 tab in the afternoon [Active]; Eliquis 5 mg Oral tab 1 tab 2 times per day [Active]; pravastatin 40 mg Oral tab once daily [Active]; Vascepa 1 gram Oral cap 2 times per day [Active]; levothyroxine 112 mcg oral tab once daily [Active]; tramadol 50 mg Oral tab 1 tab twice a day [Active]; liothyronine 5 mcg Oral tab once daily [Active]; clonidine HCl 0.1 mg Oral tab as needed [Active]; dofetilide 500mcg Oral 2 times per day [Active]; hydralazine 50 mg oral tab three times daily [Active]; Edarbyclor 40-25 mg Oral tab 1 tab once daily [Active]; atenolol 50 mg Oral tab once daily [Active]; aspirin 81 mg Oral chew 1 tab once daily [Active]; Vitamin D3 Oral 2 tab daily [Active]; - PMHx: 17:03 Asthma; Atrial Fib; CVA; Hypertension; Hypothyroidism; UTI; aj1 - PSHx: 17:03 Appendectomy; Cholecystectomy; Hysterectomy; Bladder suspension; rectocele/cystcele aj1 repair; juan m fundiplication; right knee replacement; left shoulder surgery; carpal tunnel repair; - Immunization history:: Flu vaccine is up to date. - Social history:: Smoking status: Patient/guardian denies using tobacco. - Ebola Screening: : Patient denies travel to an Ebola-affected area in the 21 days before illness onset. - Family history:: not pertinent. - Hospitalizations: : No recent hospitalization is reported. ROS: 17:50 Constitutional: Negative for fever, chills, and weight loss, Eyes: Negative for injury, rn pain, redness, and discharge, Neck: Negative for injury, pain, and swelling, Cardiovascular: Negative for chest pain, palpitations, and edema, Respiratory: Negative for shortness of breath, cough, wheezing, and pleuritic chest pain, Abdomen/GI: Negative for abdominal pain, nausea, vomiting, diarrhea, and constipation, Back: Negative for injury MS/Extremity: + left hip pain Skin: Negative for injury, rash, and discoloration, Neuro: Negative for headache, weakness, numbness, tingling, and seizure. Exam: 17:50 Constitutional: This is a well developed, well nourished patient who is awake, alert, rn in prone position on bed Abdomen/GI: soft, non-tender Back: No spinal tenderness. No costovertebral tenderness. Full range of motion. Skin: Warm, dry with normal turgor. Normal color with no rashes, no lesions, and no evidence of cellulitis. MS/ Extremity: Pulses equal, no cyanosis. Neurovascular intact. Full, normal range of motion. Equal circumference. Neuro: Awake and alert, GCS 15, oriented to person, place, time, and situation. Motor strength 5/5 in all extremities. Sensory grossly intact. Vital Signs: 17:03 BP 146 / 63; Pulse 58; Resp 18; Temp 97.7; Pulse Ox 97% on R/A; Weight 114.76 kg (R); aj1 Height 5 ft. 2 in. (157.48 cm) (R); Pain 8/10; 18:54 BP 145 / 62; Pulse 63; Resp 18; Pulse Ox 97% on R/A; Pain 0/10; sr5 17:03 Body Mass Index 46.27 (114.76 kg, 157.48 cm) aj1 MDM: 17:33 Patient medically screened. rn 19:03 Differential diagnosis: bursitis, arthritis, strain, radiculopathy. Data reviewed: rn vital signs, nurses notes, and as a result, I will discharge patient. Counseling: I had a detailed discussion with the patient and/or guardian regarding: the historical points, exam findings, and any diagnostic results supporting the discharge/admit diagnosis, the need for outpatient follow up, to return to the emergency department if symptoms worsen or persist or if there are any questions or concerns that arise at home. Response to treatment: the patient's symptoms have markedly improved after treatment, and as a result, I will discharge patient. Special discussion: I discussed with the patient/guardian in detail that at this point there is no indication for admission to the hospital. It is understood, however, that if the symptoms persist or worsen the patient needs to return immediately for re-evaluation. ED course: Much better, can move leg now, requesting to go home, will dc with steroids as she states has helped her in past with this problem.. Administered Medications: 18:02 Drug: Decadron 10 mg Route: IM; Site: right deltoid; rv 18:23 Follow up: Response: No adverse reaction iw 18:25 Follow up: Response: No adverse reaction; Pain is decreased iw 18:02 Drug: [place] 5 mg-325 mg 1 tabs Route: PO; rv 18:25 Follow up: Response: No adverse reaction; Pain is decreased iw 18:02 Drug: Flexeril 10 mg Route: PO; rv 18:25 Follow up: Response: No adverse reaction; Pain is decreased iw Disposition: 10/22/19 19:05 Discharged to Home. Impression: Osteoarthritis, unspecified site, Radiculopathy, lumbosacral region. - Condition is Stable. - Discharge Instructions: Arthritis, Lumbosacral Radiculopathy. - Prescriptions for Medrol (Porfirio) 4 mg Oral Tablets, Dose Pack - take 1 tablet by ORAL route as directed - follow package instructions; 1 packet. Cyclobenzaprine 5 mg Oral Tablet - take 1 tablet by ORAL route 3 times per day As needed; 15 tablet. - Medication Reconciliation Form, Thank You Letter, Antibiotic Education, Prescription Opioid Use form. - Follow up: Private Physician; When: As needed; Reason: Recheck today's complaints, Re-evaluation by your physician. - Problem is chronic. - Symptoms have improved. Signatures: Sara You RN RN aj1 Roger Samuels MD MD rn Resecker, Sam, RN RN sr5 Vinicio Villavicencio RN RN Sherice Tracy RN Corrections: (The following items were deleted from the chart) 19:29 19:05 10/22/2019 19:05 Discharged to Home. Impression: Osteoarthritis, unspecified sr5 site; Radiculopathy, lumbosacral region. Condition is Stable. Forms are Medication Reconciliation Form, Thank You Letter, Antibiotic Education, Prescription Opioid Use. Follow up: Private Physician; When: As needed; Reason: Recheck today's complaints, Re-evaluation by your physician. Problem is chronic. Symptoms have improved. rn
--- NOTE | 2019-10-22 19:06 | ER ---
Nurse's Notes [facility] Name: Kristal You Age: 79 yrs Sex: Female : 1940 Arrival Date: 10/22/2019 Time: 16:53 Bed 23 Private MD: Khadijah Gurrola C Diagnosis: Osteoarthritis, unspecified site;Radiculopathy, lumbosacral region Presentation: 10/22 16:56 Presenting complaint: Patient states: Left hip pain for the past 3 days. Denies injury. aj1 Patient states that she has arthritis. Transition of care: patient was not received from another setting of care. Onset of symptoms was 2018. Risk Assessment: Do you want to hurt yourself or someone else? Patient reports no desire to harm self or others. Initial Sepsis Screen: Does the patient meet any 2 criteria? No. Patient's initial sepsis screen is negative. Does the patient have a suspected source of infection? No. Patient's initial sepsis screen is negative. Care prior to arrival: None. 16:56 Method Of Arrival: Wheelchair aj1 16:56 Acuity: LUCINA 4 aj1 Triage Assessment: 17:03 General: Appears in no apparent distress. uncomfortable, Behavior is calm, cooperative, aj1 appropriate for age. Pain: Pain currently is 8 out of 10 on a pain scale. Neuro: Level of Consciousness is awake, alert, obeys commands. Cardiovascular: Patient's skin is warm and dry. Respiratory: Airway is patent Respiratory effort is even, unlabored, Respiratory pattern is regular, symmetrical. Historical: - Allergies: 17:03 namutol; aj1 - Home Meds: 17:03 baclofen 10 mg Oral tab 1 tab at bedtime [Active]; gabapentin 100 mg oral cap 1 caps 3 aj1 times per day [Active]; doxazosin 4 mg Oral tab 1 tab 1/2 tab in the am and 1 tab in the afternoon [Active]; Eliquis 5 mg Oral tab 1 tab 2 times per day [Active]; pravastatin 40 mg Oral tab once daily [Active]; Vascepa 1 gram Oral cap 2 times per day [Active]; levothyroxine 112 mcg oral tab once daily [Active]; tramadol 50 mg Oral tab 1 tab twice a day [Active]; liothyronine 5 mcg Oral tab once daily [Active]; clonidine HCl 0.1 mg Oral tab as needed [Active]; dofetilide 500mcg Oral 2 times per day [Active]; hydralazine 50 mg oral tab three times daily [Active]; Edarbyclor 40-25 mg Oral tab 1 tab once daily [Active]; atenolol 50 mg Oral tab once daily [Active]; aspirin 81 mg Oral chew 1 tab once daily [Active]; Vitamin D3 Oral 2 tab daily [Active]; - PMHx: 17:03 Asthma; Atrial Fib; CVA; Hypertension; Hypothyroidism; UTI; aj1 - PSHx: 17:03 Appendectomy; Cholecystectomy; Hysterectomy; Bladder suspension; rectocele/cystcele aj1 repair; juan m fundiplication; right knee replacement; left shoulder surgery; carpal tunnel repair; - Immunization history:: Flu vaccine is up to date. - Social history:: Smoking status: Patient/guardian denies using tobacco. - Ebola Screening: : Patient denies travel to an Ebola-affected area in the 21 days before illness onset. - Family history:: not pertinent. - Hospitalizations: : No recent hospitalization is reported. Screenin:46 Abuse screen: Denies threats or abuse. Denies injuries from another. Nutritional iw screening: No deficits noted. Tuberculosis screening: No symptoms or risk factors identified. Fall Risk None identified. Assessment: 17:45 General: Appears uncomfortable, Behavior is cooperative, fussy. Pain: Complains of pain iw in right lower back Pain radiates to right leg Pain currently is 10 out of 10 on a pain scale. Neuro: Level of Consciousness is awake, alert, obeys commands, Oriented to person, place, time, situation, Moves all extremities. Full function. Cardiovascular: Patient's skin is warm and dry. Respiratory: Respiratory effort is even, unlabored, Respiratory pattern is regular, symmetrical. Derm: Skin is intact, is healthy with good turgor. Musculoskeletal: Range of motion: limited in right hip. 18:25 Reassessment: Patient appears in no apparent distress at this time. Patient and/or iw family updated on plan of care and expected duration. Pain level reassessed. Patient is alert, oriented x 3, equal unlabored respirations, skin warm/dry/pink. pt states she can now rotate her right leg, feels like she is ready to go home Patient states symptoms have improved. 18:54 Reassessment: Assumed care of pt. Pt lying on her LEFT side, states "I feel much more sr5 comfortable, I'm able to move without it spasms". AA\\T\\Ox4, equal unlabored resp, skin warm/dry/nc. 19:28 Reassessment: Moved to without difficulty. sr5 Vital Signs: 17:03 BP 146 / 63; Pulse 58; Resp 18; Temp 97.7; Pulse Ox 97% on R/A; Weight 114.76 kg (R); aj1 Height 5 ft. 2 in. (157.48 cm) (R); Pain 8/10; 18:54 BP 145 / 62; Pulse 63; Resp 18; Pulse Ox 97% on R/A; Pain 0/10; sr5 17:03 Body Mass Index 46.27 (114.76 kg, 157.48 cm) aj1 ED Course: 16:53 Patient arrived in ED. as 16:53 Judd Gurrola MD is Private Physician. as 16:53 Khadijah Gurrola MD is Private Physician. as 16:57 Triage completed. aj1 17:03 Arm band placed on Patient placed in waiting room, Patient notified of wait time. aj1 17:32 Roger Samuels MD is Attending Physician. rn 17:44 Sherice Tracy RN is Primary Nurse. iw 18:26 No provider procedures requiring assistance completed. Patient did not have IV access iw during this emergency room visit. 18:54 Patient has correct armband on for positive identification. Bed in low position. Call sr5 light in reach. Pulse ox on. NIBP on. Administered Medications: 18:02 Drug: Decadron 10 mg Route: IM; Site: right deltoid; rv 18:23 Follow up: Response: No adverse reaction iw 18:25 Follow up: Response: No adverse reaction; Pain is decreased iw 18:02 Drug: [place] 5 mg-325 mg 1 tabs Route: PO; rv 18:25 Follow up: Response: No adverse reaction; Pain is decreased iw 18:02 Drug: Flexeril 10 mg Route: PO; rv 18:25 Follow up: Response: No adverse reaction; Pain is decreased iw Outcome: 19:05 Discharge ordered by . rn 19:28 Discharged to home via wheelchair, with family. sr5 19:28 Condition: good 19:28 Discharge instructions given to patient, Instructed on discharge instructions, follow up and referral plans. medication usage, Demonstrated understanding of instructions, follow-up care, medications, Prescriptions given X 2. 19:29 Patient left the ED. sr5 Signatures: Sara You RN RN aj1 Analy [place] Irene RN RN iw Roger Samuels MD MD rn Resecker, Sam, RN RN sr5 Vinicio Villavicencio RN RN rv Corrections: (The following items were deleted from the chart) 17:05 17:03 Arm band placed on Patient placed in an exam room, aj1 aj1
[2019-10-22 19:37] VITALS: TEMP 97.7; O2SAT 97
[2019-10-22 19:38] VITALS: BP 145/62
== END 2019-10-22 19:29 | disposition home or self-care (01) ==
LOC: ER 16:50
DX: M54.17 Radiculopathy, lumbosacral region (principal); M19.90 Unspecified osteoarthritis, unspecified site; I10 Essential (primary) hypertension; E03.9 Hypothyroidism, unspecified; I48.91 Unspecified atrial fibrillation; Z79.02 Long term (current) use of antithrombotics/antiplatelets; Z79.82 Long term (current) use of aspirin; Z88.8 Allergy status to other drugs, medicaments and biological substances; Z86.73 Personal history of transient ischemic attack (TIA), and cerebral infarction without residual deficits
CPT/HCPCS: 96372; 99283; J1100

== ENCOUNTER 2019-12-23 13:41 | Emergency (ER) | payer OTHER, MEDICARE ==
[2019-12-23] MEDS ORDERED: ONDANSETRON 4 MG/2 ML VIAL ONE (16:16)
[2019-12-23] MEDS ORDERED: MORPHINE 4 MG/ML SYR ONE (16:16)
[2019-12-23 16:17] LABS: Absolute Lymphocytes (CBC) 1.4 K/uL (0.7-4.9); Basophils % 0.5 % (0-1.3); Hematocrit 38.7 % (36.0-45.0); MPV 8.3 fL (7.6-11.3); RBC Red Blood Cell Count 4.34 M/uL (3.86-4.86)
[2019-12-23 17:15] LABS: Albumin 3.4 g/dL (3.4-5.0); Bilirubin Direct 0.1 mg/dL (0-0.2); Bilirubin Total 0.4 mg/dL (0.2-1.0); Potassium 3.4 mmol/L (3.5-5.1); Protein, Total 7.3 g/dL (6.4-8.2)
[2019-12-23] MEDS ORDERED: NA CHLORIDE 0.9% 1,000 ML ONE (17:38)
[2019-12-23 17:47] LABS: Urine White Blood Cell Casts OK
[2019-12-23 17:48] LABS: Anisocytosis 1+; Blood Morphology Comment NOTED (NOT SEEN); Platelet Estimate DECR; Poikilocytosis 1+
[2019-12-23 18:32] LABS: Urine Bacteria >50 /HPF (<20); Urine Culture Reflex Order NOT NEEDED; Urine Mucus 1+ /HPF (NONE SEEN); Urine RBC <5 /HPF (NONE SEEN)
[2019-12-23 18:32] LABS: Urine Blood NEGATIVE (NEG); Urine Glucose NEGATIVE (NEG); Urine Protein NEGATIVE (NEG); Urine Specific Gravity 1.015 (1.005-1.030); Urine pH 5.5 (5.0-7.0)
--- NOTE | 2019-12-23 18:35 | ER ---
Nurse's Notes [facility] Name: Kristal You Age: 79 yrs Sex: Female : 1940 Arrival Date: 12/23/2019 Time: 13:45 Bed 15 Private MD: Judd Gurrola Diagnosis: Urinary tract infection, site not specified;Chronic Hip Pain Presentation: 12/22 14:01 Chief complaint: Patient states: Pain on L lower back. Reports dysuria, urinary urgency ca1 and urinary frequency. Hx of kidney infections and sees Dr. Darling. Denies fever. Coronavirus screen: The patient has NOT traveled to [place] in the past 14 days. The patient has NOT had contact with known and/or suspected case of Coronavirus. Ebola Screen: Patient negative for fever greater than or equal to 101.5 degrees Fahrenheit, and additional compatible Ebola Virus Disease symptoms Patient denies exposure to infectious person. Initial Sepsis Screen: Does the patient meet any 2 criteria? No. Patient's initial sepsis screen is negative. Does the patient have a suspected source of infection? No. Patient's initial sepsis screen is negative. Risk Assessment: Do you want to hurt yourself or someone else? Patient reports no desire to harm self or others. 14:01 Method Of Arrival: Ambulatory ca1 14:01 Acuity: LUCINA 3 ca1 14:07 Onset of symptoms was December 23, 2019. Care prior to arrival: Medication(s) given: Meally ca1 7.5 mg 2 tabs. Triage Assessment: 14:01 General: Appears in no apparent distress. comfortable, Behavior is calm, cooperative, ca1 appropriate for age. Pain: Complains of pain in left low back. : Reports burning with urination, urgency, urinary frequency. Historical: - Allergies: 14:07 namutol; ca1 - Home Meds: 14:07 aspirin 81 mg Oral chew 1 tab once daily [Active]; atenolol 50 mg Oral tab once daily ca1 [Active]; baclofen 10 mg Oral tab 1 tab at bedtime [Active]; Eliquis 5 mg Oral tab 1 tab 2 times per day [Active]; clonidine HCl 0.1 mg Oral tab as needed [Active]; dofetilide 500mcg Oral 2 times per day [Active]; doxazosin 4 mg Oral tab 1 tab 1/2 tab in the am and 1 tab in the afternoon [Active]; Edarbyclor 40-25 mg Oral tab 1 tab once daily [Active]; gabapentin 100 mg Oral cap 1 caps 3 times per day [Active]; hydralazine 50 mg Oral tab three times daily [Active]; levothyroxine 112 mcg tab once daily [Active]; liothyronine 5 mcg Oral tab once daily [Active]; pravastatin 40 mg Oral tab once daily [Active]; tramadol 50 mg Oral tab 1 tab twice a day [Active]; Vascepa 1 gram Oral cap 2 times per day [Active]; Vitamin D3 Oral 2 tab daily [Active]; - PMHx: 14:07 Asthma; Atrial Fib; CVA; Hypertension; Hypothyroidism; UTI; ca1 - PSHx: 14:07 Appendectomy; Cholecystectomy; Hysterectomy; Bladder suspension; rectocele/cystcele ca1 repair; juan m fundiplication; right knee replacement; left shoulder surgery; Carpal Tunnel Repair; - Immunization history:: Adult Immunizations up to date, Pneumococcal vaccine is up to date, Flu vaccine is up to date. - Social history:: Smoking status: Patient denies any tobacco usage or history of. Screenin:30 Abuse screen: Denies threats or abuse. Nutritional screening: No deficits noted. em Tuberculosis screening: No symptoms or risk factors identified. Fall Risk None identified. Assessment: 16:20 General: Appears in no apparent distress. comfortable, Behavior is calm, cooperative, em Denies fever. Pain: Denies pain. Neuro: Level of Consciousness is awake, alert, obeys commands, Oriented to person, place, time, situation, Appropriate for age. Cardiovascular: Capillary refill < 3 seconds Patient's skin is warm and dry. Respiratory: Airway is patent Respiratory effort is even, unlabored, Respiratory pattern is regular, symmetrical. GI: Abdomen is obese, Patient currently denies nausea, vomiting. : Reports she has not voided since 12 this afternoon Denies burning with urination. Derm: Skin is intact, is thin, Skin is pink, warm \T\ dry. Musculoskeletal: Capillary refill < 3 seconds, Range of motion: intact in all extremities. 16:30 Reassessment: Patient appears in no apparent distress at this time. currently does not em want any medications, does not have pain, provider notified. 17:50 Reassessment: states she will not be able to provider a clean catch specimen, provider em notified. 18:50 Reassessment: Patient appears in no apparent distress at this time. Patient and/or em family updated on plan of care and expected duration. Pain level reassessed. Patient is alert, oriented x 3, equal unlabored respirations, skin warm/dry/pink. pending completion of IV fluids before being discharged Patient denies pain at this time. 19:05 Reassessment: Patient appears in no apparent distress at this time. Patient and/or wh family updated on plan of care and expected duration. Pain level reassessed. Patient is alert, oriented x 3, equal unlabored respirations, skin warm/dry/pink. Pt with DC order awaiting IVF to be consumed. Vital Signs: 14:01 BP 166 / 50; Pulse 69; Resp 17 S; Temp 97.6(O); Pulse Ox 96% on R/A; Weight 113.85 kg ca1 (R); Height 5 ft. 2 in. (157.48 cm) (R); 17:00 BP 159 / 68; Pulse 64; Resp 18; Pulse Ox 97% on R/A; Pain 0/10; em 19:00 BP 145 / 54; Pulse 65; Resp 18; Pulse Ox 97% on R/A; wh 14:01 Body Mass Index 45.91 (113.85 kg, 157.48 cm) ca1 ED Course: 13:45 Patient arrived in ED. mr 13:45 Judd Gurrola MD is Private Physician. mr 14:01 Arm band placed on right wrist. ca1 14:04 Triage completed. ca1 15:44 Tyshawn Ledbetter PA is PHCP. [facility] 15:44 Artur Benson MD is Attending Physician. [facility] 15:48 Venkat Mejia, KARIE is Primary Nurse. em 16:07 Missed attempt(s): 20 gauge in right forearm. Bleeding controlled, band aid applied, ms catheter tip intact. 16:30 Patient has correct armband on for positive identification. Bed in low position. Call em light in reach. Side rails up X2. Placed in gown. Pulse ox on. NIBP on. 16:30 Inserted saline lock: 20 gauge in right antecubital area, using aseptic technique. em Blood collected. 18:23 Straight cath inserted, using sterile technique, 16 Fr. Returned 500 ml . Patient mg2 tolerated well. 18:34 Aicha Darling MD is Referral Physician. [facility] 19:28 No provider procedures requiring assistance completed. IV discontinued, intact, wh bleeding controlled, No redness/swelling at site. Administered Medications: 17:38 Drug: NS 0.9% 1000 ml Route: IV; Rate: 1 bolus; Site: right antecubital; em 19:28 Follow up: Response: No adverse reaction; IV Status: Completed infusion 18:37 Not Given (Patient Refused): morphine 4 mg IVP once; RASS on ADMIN: Combtv4, Very em Agttd3, Agttd2, Rstlss1, AlertClm0, Drwsy-1, Lt Sdtn-2, Mod Sdtn-3, Dp Sdtn-4, UnArsble-5 18:37 Not Given (Patient Refused): Zofran (Ondansetron) 4 mg IVP once; over 2 minutes em 18:57 Drug: Rocephin - (cefTRIAXone) 1 grams Route: IVPB; Infused Over: 30 mins; Site: right em antecubital; 19:07 Follow up: Response: No adverse reaction; IV Status: Completed infusion; IV Intake: 10mlem Intake: 19:07 IV: 10ml; Total: 10ml. em Outcome: 18:34 Discharge ordered by . [facility] 19:29 Discharged to home via wheelchair. 19:29 Condition: stable 19:29 Discharge instructions given to patient, Instructed on discharge instructions, follow up and referral plans. medication usage, POC Demonstrated understanding of instructions, follow-up care, medications, POC Prescriptions given X 1. 19:29 Patient left the ED. Signatures: Tyshawn Ledbetter PA PA [facility] Carolyn Mc mr MejiaVenkat, RN RN Cynthia Boss ms Coradonovan, [facility] Juanito Montejo, RN KARIE mg2 Lauren Lovelace RN RN ca1 Corrections: (The following items were deleted from the chart) 19:07 15:38 NS 0.9% 1000 ml IV at 1 bolus in right antecubital em em
--- NOTE | 2019-12-23 18:35 | EDPHYS ---
Physician Documentation [facility] Name: Kristal You Age: 79 yrs Sex: Female : 1940 Arrival Date: 12/23/2019 Time: 13:45 Bed 15 Private MD: Judd Gurrola ED Physician Artur Benson HPI: 12/22 16:19 This 79 yrs old Female presents to ER via Ambulatory with complaints of Hip jmm Pain, Urinary Problem. 16:19 The patient or guardian reports pain. Onset: The symptoms/episode began/occurred jmm gradually. Modifying factors: The symptoms are alleviated by remaining still, the symptoms are aggravated by any movement. Associated signs and symptoms: Loss of consciousness: the patient experienced no loss of consciousness. This is an 79 year old female with a history of asthma, atrial fib, CVA, htn, UTI that presents to the ED with complaints of an acute exacerbation of chronic hip pain along with being unable to urinate since last night. Patient states she was up all night with increased frequency. Patient denies abdominal pain or fever. Historical: - Allergies: 14:07 namutol; ca1 - Home Meds: 14:07 aspirin 81 mg Oral chew 1 tab once daily [Active]; atenolol 50 mg Oral tab once daily ca1 [Active]; baclofen 10 mg Oral tab 1 tab at bedtime [Active]; Eliquis 5 mg Oral tab 1 tab 2 times per day [Active]; clonidine HCl 0.1 mg Oral tab as needed [Active]; dofetilide 500mcg Oral 2 times per day [Active]; doxazosin 4 mg Oral tab 1 tab 1/2 tab in the am and 1 tab in the afternoon [Active]; Edarbyclor 40-25 mg Oral tab 1 tab once daily [Active]; gabapentin 100 mg Oral cap 1 caps 3 times per day [Active]; hydralazine 50 mg Oral tab three times daily [Active]; levothyroxine 112 mcg tab once daily [Active]; liothyronine 5 mcg Oral tab once daily [Active]; pravastatin 40 mg Oral tab once daily [Active]; tramadol 50 mg Oral tab 1 tab twice a day [Active]; Vascepa 1 gram Oral cap 2 times per day [Active]; Vitamin D3 Oral 2 tab daily [Active]; - PMHx: 14:07 Asthma; Atrial Fib; CVA; Hypertension; Hypothyroidism; UTI; ca1 - PSHx: 14:07 Appendectomy; Cholecystectomy; Hysterectomy; Bladder suspension; rectocele/cystcele ca1 repair; juan m fundiplication; right knee replacement; left shoulder surgery; Carpal Tunnel Repair; - Immunization history:: Adult Immunizations up to date, Pneumococcal vaccine is up to date, Flu vaccine is up to date. - Social history:: Smoking status: Patient denies any tobacco usage or history of. ROS: 16:19 Constitutional: Negative for fever, chills, and weight loss, Cardiovascular: Negative jmm for chest pain, palpitations, and edema, Respiratory: Negative for shortness of breath, cough, wheezing, and pleuritic chest pain, Abdomen/GI: Negative for abdominal pain, nausea, vomiting, diarrhea, and constipation. 16:19 : Positive for urinary symptoms. 16:19 MS/extremity: Positive for pain. 16:19 All other systems are negative. Exam: 16:19 Constitutional: This is a well developed, well nourished patient who is awake, alert, jmm and in no acute distress. Head/Face: atraumatic. Eyes: EOMI, no conjunctival erythema appreciated ENT: Moist Mucus Membranes Neck: Trachea midline, Supple Chest/axilla: Normal chest wall appearance and motion. Cardiovascular: Regular rate and rhythm. No edema appreciated Respiratory: Normal respirations, no respiratory distress appreciated Abdomen/GI: Non distended, soft Back: Normal ROM 16:19 Abdomen/GI: Inspection: abdomen appears normal, Bowel sounds: normal, Palpation: abdomen is soft and non-tender, in all quadrants. 16:19 Musculoskeletal/extremity: painful rom noted to the left hip. 16:19 Skin: Appearance: Color: normal in color. 16:19 Neuro: Orientation: is normal, Mentation: is normal, Memory: is normal. 16:19 Psych: Behavior/mood is pleasant, cooperative. Vital Signs: 14:01 BP 166 / 50; Pulse 69; Resp 17 S; Temp 97.6(O); Pulse Ox 96% on R/A; Weight 113.85 kg ca1 (R); Height 5 ft. 2 in. (157.48 cm) (R); 17:00 BP 159 / 68; Pulse 64; Resp 18; Pulse Ox 97% on R/A; Pain 0/10; em 19:00 BP 145 / 54; Pulse 65; Resp 18; Pulse Ox 97% on R/A; wh 14:01 Body Mass Index 45.91 (113.85 kg, 157.48 cm) ca1 MDM: 15:[address] [facility] 18:33 Data reviewed: vital signs, nurses notes. Counseling: I had a detailed discussion with [facility] the patient and/or guardian regarding: the historical points, exam findings, and any diagnostic results supporting the discharge/admit diagnosis, lab results, the need for outpatient follow up, to return to the emergency department if symptoms worsen or persist or if there are any questions or concerns that arise at home. ED course: Patient is alert and non toxic in appearance in the ED. Patient states feeling much better in the ED. NA level is 127. I discussed this with the patient. This appears to be a chronic process. No clinical signs of hyponatremia. UA concerning for infection. Will treat with oral abx and advised to follow up with urology for further evaluation. Patient understood and agrees with the plan of care. . 12/22 15:48 Order name: Basic Metabolic Panel; Complete Time: 17:[address] [facility] 12/22 15:48 Order name: CBC with Diff; Complete Time: 17:[address] [facility] 12/22 15:48 Order name: Creatinine for Radiology; Complete Time: 17:[address] [facility] 12/22 15:48 Order name: Hepatic Function; Complete Time: 17:[address] [facility] 12/22 15:48 Order name: Lipase; Complete Time: 17:[address] [facility] 12/22 15:48 Order name: Urine Microscopic Only; Complete Time: 18:[address] [facility] 12/22 15:48 Order name: IV Saline Lock; Complete Time: 17:[address] [facility] 12/22 15:48 Order name: Urine Culture [facility] 12/22 16:37 Order name: CBC Smear Scan; Complete Time: 17:51 [facility] 12/22 18:25 Order name: Urine Dipstick--Ancillary (enter results); Complete Time: 18:40 12/22 15:48 Order name: Labs collected and sent; Complete Time: 16:[address] [facility] 12/22 15:48 Order name: Urine Dipstick-Ancillary (obtain specimen); Complete Time: 18:[address] [facility] 12/22 16:20 Order name: Labs - recollect needed: collect green top; Complete Time: 16:52 bd 12/22 18:05 Order name: Straight Cath; Complete Time: 18:21 briseyda Administered Medications: 17:38 Drug: NS 0.9% 1000 ml Route: IV; Rate: 1 bolus; Site: right antecubital; em 19:28 Follow up: Response: No adverse reaction; IV Status: Completed infusion wh 18:37 Not Given (Patient Refused): morphine 4 mg IVP once; RASS on ADMIN: Combtv4, Very em Agttd3, Agttd2, Rstlss1, AlertClm0, Drwsy-1, Lt Sdtn-2, Mod Sdtn-3, Dp Sdtn-4, UnArsble-5 18:37 Not Given (Patient Refused): Zofran (Ondansetron) 4 mg IVP once; over 2 minutes em 18:57 Drug: Rocephin - (cefTRIAXone) 1 grams Route: IVPB; Infused Over: 30 mins; Site: right em antecubital; 19:07 Follow up: Response: No adverse reaction; IV Status: Completed infusion; IV Intake: 10mlem Disposition: 12/23 07:25 Co-signature as Attending Physician, Artur Benson MD I agree with the assessment and fly plan of care. Disposition: 12/23/19 18:34 Discharged to Home. Impression: Urinary tract infection, site not specified, Chronic Hip Pain. - Condition is Stable. - Discharge Instructions: Urinary Tract Infection, Adult, Hip Pain. - Prescriptions for cefpodoxime 200 mg Oral Tablet - take 1 tablet by ORAL route every 12 hours for 10 days with food; 20 tablet. - Medication Reconciliation Form, Thank You Letter, Antibiotic Education, Prescription Opioid Use form. - Follow up: Aicha Darling MD; When: 2 - 3 days; Reason: Recheck today's complaints, Continuance of care, Re-evaluation by your physician. Signatures: Dispatcher [employer] EDMS Ericka Miles Corey, MD MD cha Mickail, Joel, PA PA jmm Munoz, Edgar, RN RN Antwan Wiggins Lauren Lovelace RN RN ca1 Corrections: (The following items were deleted from the chart) 12/22 18:45 18:33 ED course: Patient is alert and non toxic in appearance in the ED. UA concerning briseyda for infection. Will treat with oral abx and advised to follow up with urology for further evaluation. Patient understood and agrees with the plan of care. . briseyda 19:29 18:34 12/23/2019 18:34 Discharged to Home. Impression: Urinary tract infection, site wh not specified; Chronic Hip Pain. Condition is Stable. Forms are Medication Reconciliation Form, Thank You Letter, Antibiotic Education, Prescription Opioid Use. Follow up: Aicha Darling; When: 2 - 3 days; Reason: Recheck today's complaints, Continuance of care, Re-evaluation by your physician. briseyda
[2019-12-23] MEDS ORDERED: CEFTRIAXONE/SWI 1gm 1 GM/10 ML SYR ONE (18:49)
[2019-12-23 20:56] VITALS: TEMP 97.6
[2019-12-23 20:57] VITALS: O2SAT 97
[2019-12-23 20:59] VITALS: BP 145/54
== END 2019-12-23 19:29 | disposition home or self-care (01) ==
LOC: ER 13:41
DX: N39.0 Urinary tract infection, site not specified (principal); M25.552 Pain in left hip; M25.551 Pain in right hip; I48.91 Unspecified atrial fibrillation; I10 Essential (primary) hypertension; Z86.73 Personal history of transient ischemic attack (TIA), and cerebral infarction without residual deficits; E03.9 Hypothyroidism, unspecified
CPT/HCPCS: 96361; 87088; 85025; 87086; 80048; 36415; 80076; 87077; 87186; 83690; 51702; 96374; 99284; J0696; J7030; 81003; 81015; J2405

== ENCOUNTER 2020-03-09 16:22 | Inpatient (IN) | payer OTHER, MEDICARE ==
--- OUTSIDE RECORDS SUMMARY | 2020-03-09 16:27 | XMS REPORT | Continuity of Care Document ---
:1940 Author Organization [employer] Care Team Providers Name Role Phone [employer] Unavailable Un available Problems Problem Status Onset Classification Date Comments Sourc e Date Reported ISCHEMIC STROKE Active [address] LFLT TRANSFER#[id number] Atrial fibrillation Active Problem 06/17/2017 [facility] Consult Personal history of Active Problem 06/17/2017 [place] transient ischemic C ardiology attack [TIA], and Co nsult cerebral infarction without residual deficits Palpitations Active Problem 06/17/2017 [place] [facility] Consult Transient cerebral Active Problem 06/17/2017 [place] ischemic attack, Car diology unspecified Consult Bradycardia, Active Problem 06/17/2017 [place] unspecified Cardiolo gy Consult Personal history of Active Problem 06/17/2017 [place] transient ischemic C ardiology attack (TIA), and Co nsult cerebral infarction without residual deficits History of falling Active Problem 06/17/2017 [facility] Consult Abnormal Active Problem 06/17/2017 [place] electrocardiogram Ca rdiology [ECG] [EKG] Consult Morbid (severe) Active Problem 06/17/2017 [place] obesity due to excess Cardiology calories Consult Arthropathy, Active Problem 06/17/2017 [place] unspecified Cardiolo gy Consult Major depressive Active Problem 06/17/2017 [place] disorder, single Car diology episode, unspecified Consult Chest pain, Active Problem 06/17/2017 [place] unspecified Cardiolo gy Consult Shortness of breath Active Problem 06/17/2017 [facility] [facility] Consult Constipation, Active Problem 06/17/2017 [place] unspecified Cardiolo gy Consult Hypothyroidism, Active Problem 06/17/2017 [place] unspecified Cardiolo gy Consult Hyperlipidemia, Active Problem 06/17/2017 [place] unspecified Cardiolo gy Consult Chronic kidney Active Problem 06/17/2017 [place] disease, unspecified Cardiology Consult Insomnia, unspecified Active Problem 06/17/2017 [facility] Consult Nonrheumatic mitral Active Problem 06/17/2017 [place] (valve) insufficiency Cardiology Consult Paroxysmal atrial Active Problem 06/17/2017 [place] fibrillation Cardiol ogy Consult 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 Consult Essential (primary) Active Problem 06/17/2017 [place] hypertension Cardiol ogy Consult Chronic kidney Active Problem 06/17/2017 [facility] ton disease, Stage III C ardiology (moderate) Consult Congestive 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 [place] failure, unspecified Cardiology Consult Hypertensive heart and Active Diagnosis 06/17/2017 [place] chronic kidney disease Cardiology with heart failure and Consult stage 1 through stage 4 chronic kidney disease, or unspecified chronic kidney disease Hypertension essential Active Problem 06/17/2017 [place] benign Cardiology Consult Occlusion and stenosis Active Problem 06/17/2017 [place] of carotid artery Ca rdiology without mention of C onsult cerebral infarction Insomnia, unspecified Active Problem 06/17/2017 [facility] [facility] Consult Mitral valve disorders Active Problem 06/17/2017 [facility] Consult Other and unspecified Active Problem 06/17/2017 [place] hyperlipidemia Cardi ology Consult Unspecified Active Problem 06/17/2017 [place] hypothyroidism Cardi ology Consult Obesity, unspecified Active Problem 06/17/2017 [facility] [facility] Consult Other malaise and Active Problem 06/17/2017 [place] fatigue Cardiology Consult Shortness of breath Active Problem 06/17/2017 [facility] Consult Chest pain, Active Problem 06/17/2017 [place] unspecified Cardiolo gy Consult Chronic diastolic Active Problem 06/17/2017 [place] (congestive) heart C ardiology failure Consult Unspecified Active Problem 06/17/2017 [place] constipation Cardiol ogy Consult Impaired fasting blood Active Problem 06/17/2017 [place] sugar Cardiology Consult Overactive bladder Active Problem 06/17/2017 [facility] Consult Anxiety disorder, Active Problem 06/17/2017 [place] unspecified Cardiolo gy Consult Incontinence without Active Problem 06/17/2017 [place] sensory awareness Ca rdiology Consult Encounter for Active Problem 06/17/2017 [place] screening for diabetes Cardiology mellitus Consult Retention of urine, Active Problem 06/17/2017 [place] unspecified Cardiolo gy Consult Hypertensive heart and Active Problem 06/17/2017 [place] chronic kidney Cardi ology disease, benign, with Consult heart failure and with chronic kidney disease stage I through stage IV, or unspecified Depressive disorder, Active Problem 06/17/2017 [place] not elsewhere Cardio logy classified Consult Urinary tract Active Problem 06/17/2017 [place] infection, site not Cardiology specified Consult Unspecified Active Problem 06/17/2017 [place] arthropathy, site Ca rdiology unspecified Consult Frequency of Active Problem 06/17/2017 [place] micturition Cardiolo gy Consult Morbid obesity Active Problem 06/17/2017 [facility] ton Cardiology Consult Female genuine stress Active Problem 06/17/2017 [place] incontinence Cardiol ogy Consult Nonspecific abnormal Active Problem 06/17/2017 [place] electrocardiogram Ca rdiology (ECG) (EKG) Consult Palpitations Active Problem 06/17/2017 [place] Cardiology Consult Other specified Active Problem 06/17/2017 [place] cardiac dysrhythmias Cardiology Consult Upper respiratory Active Problem 06/17/2017 [place] tract hypersensitivity Cardiology reaction, site Consu lt unspecified Unspecified transient Active Problem 06/17/2017 [place] cerebral ischemia Ca rdiology Consult Personal history of Active Problem 06/17/2017 [place] fall Cardiology Consult Acute upper Active Problem 06/17/2017 [place] respiratory infections Cardiology of unspecified site Consult Gastroesophageal Resolved Problem 11/28/2014 [facility] reflux disease Medic al (disorder) Center Hypercholesterolemia Resolved Problem 11/28/2014 [facility] (disorder) [facility] Hyperlipidemia Resolved Problem 11/28/2014 [facility] (disorder) [facility] Hypertensive disorder, Resolved Problem 11/28/2014 [facility] systemic arterial Me dical (disorder) Center Hypothyroidism Resolved Problem 11/28/2014 [facility] (disorder) [facility] CVA Active [facility] Medications Medication Details Route Status Patient Ordering Order Source Instructions Provider Date Eliquis 1 tablet Orally Active 5 MG Orally [facility] [place] twice a day 2016 Cardiology Consult Edarbyclor 1 tablet Orally Active 40-25 MG [facility] [place] Orally Once a 2017 Cardiology day Consult Edarbyclor 1 tablet Orally Active 40-25 MG [facility] [place] Orally Once a 2017 Cardiology day Consult Dofetilide 1 capsule Orally Active 500 MCG [facility] [place] Orally Twice 2017 Cardiology a day Consult Cipro 1 tablet Orally Active 500 MG Orally [facility] [place] Twice a day 2016 Cardiology Consult Warfarin Notes: Nurse Inactive 11/26/ [facility] to ensure 2015 Medical documentation Center of patient education per anticoagulati on policy. Avoid large intake of vitamin-K containing foods diet. (Same As: Coumadin) valsartan 40 mg 40 mg = 1 Active 11/26/ [place] as oral tablet tab, PO, 2015 Medical Q12H, # 60 Center tab, 3 Refill(s) atorvastatin 40 40 mg = 1 Active [place] as mg oral tablet tab, PO, 2014 Medical Bedtime, # 30 Center tab, 3 Refill(s) clopidogrel 75 mg 75 mg = 1 Active [place] oral tablet tab, PO, 2014 Medical Daily, # 30 Center tab, 0 Refill(s) warfarin 5 mg 5 mg, PO, Active oral tablet Daily, # 2 2015 Medical tab, 0 Center Refill(s) Atenolol 25 MG 12.5 mg = 0.5 Active Oral Tablet tab, PO, 2014 Medical Daily, 0 Center Refill(s) valsartan Notes: Same Inactive as [place] 2014 [facility] Protonix Notes: Tablet No Longer [place] should not be Active 2014 [facility] chewed or Center crushed. (Same as: Protonix) Atenolol Notes: (Same No Longer [place] As:Tenormin) Active 2014 [facility] valsartan 320 mg, No Longer [place] Route: PO, Active 2014 Medical Drug form: Center TAB, Daily, Dosing Weight 114.318, kg, Start date: 11/25/14 9:00:00, Duration: 30 day, Stop date: 12/24/14 9:00:00 Thyroxine Notes: Take 1 No Longer [place] as hour before Active 2014 Medical or 2 hours Center after meal; Enteral feeds may interefere with the absorption of this medication. (Same as:Levothroid , Synthroid) heparin, porcine Notes: No Longer [place] porcine Active 2014 [facility] heparin [place] Plavix Notes: (Same No Longer [place] As: Plavix) Active 2014 [facility] Tylenol Notes: Do not No Longer [place] exceed 4 Active 2014 Medical gm/day. Center (Same as: Tylenol) atorvastatin Notes: (Same No Longer [place] as: Lipitor) Active 2014 [facility] Bupropion Notes: (Do No Longer [place] not crush) Active 2014 Medical (Same As: [place] Wellbutrin SR) valsartan 40 mg, Route: Inactive [place] PO, BID, 2015 Medical Dosing Weight Center 114.318, kg, Start date: 11/24/14 17:00:00, Duration: 30 day, Stop date: 12/24/14 9:00:00 Triiodothyronine Notes: (Same No Longer [place] as: Cytomel) Active 2014 [facility] Atenolol 100 MG 50 mg = 0.5 No Longer [facility] Oral Tablet tab, PO, BID, Active 2014 Medica l # 30 tab, 0 Center Refill(s) pravastatin 40 mg 40 mg = 1 No Longer [facility] oral tablet tab, PO, Active 2014 Medical Bedtime, # 30 Center tab, 0 Refill(s) Furosemide 40 MG 40 mg = 1 No Longer [facility] Oral Tablet tab, PO, Active 2014 Medical [Lasix] Daily, # 30 Center tab, 0 Refill(s) spironolactone 25 25 mg = 1 No Longer [facility] mg oral tablet tab, PO, Active 2014 Medical Daily, # 60 Center tab, 0 Refill(s) Potassium 20 mEq = 1 No Longer [place] Chloride 20 MEQ tab, PO, Active 2014 Medical Extended Release Daily, 0 Center Tablet Refill(s) omeprazole 40 mg 40 mg = 1 [place] oral delayed cap, PO, 2015 Medical release capsule Daily, # 30 Cent er cap, 0 Refill(s) Metolazone 5 MG 5 mg = 1 tab, No Longer [facility] Oral Tablet PO, Daily, # Active 2014 Medical 30 tab, 0 Center Refill(s) liothyronine 5 10 microgram Active [place] mcg oral tablet = 2 tab, PO, 2014 Med ical QAM, # 30 Center tab, 0 Refill(s) Fenofibrate 160 160 mg = 1 No Longer [place] MG Oral Tablet tab, PO, Active 2014 Medical Daily, # 30 Center tab, 0 Refill(s) Zolpidem tartrate 10 mg = 1 Active [place] 10 MG Oral Tablet tab, PO, 2015 Medic al [Ambien] Bedtime, for Center sleep, 0 Refill(s) buPROPion 150 150 mg = 1 Active [place] mg/24 hours oral tab, PO, BID, 2014 M edical extended release # 30 tab, [address] tablet Refill(s) Albuterol 0.09 2 puff, No Longer [place] MG/ACTUAT Metered INHALATION, Active 2014 Ms dical Dose Inhaler Q6H, as Center [Ventolin] needed for wheezing, # 17 gm, 0 Refill(s) levothyroxine 100 100 microgram Active [facility] mcg (0.1 mg) oral = 1 tab, PO, 2014 M edical tablet QAM, # 30 Center tab, 0 Refill(s) doxazosin 4 mg 4 mg = 1 tab, Active [facility] oral tablet PO, Daily, # 2015 Medical 30 tab, 0 Center Refill(s) valsartan 320 mg 320 mg = 1 No Longer [facility] oral tablet tab, PO, Active 2014 Medical Daily, # 30 Center tab, 0 Refill(s) Triiodothyronine Notes: (Same Inactive [facility] as: Cytomel) [address] [place] [id number] Reglan Notes: (Same Inactive [facility] as: Reglan) [address] [place] [address] Magnesium Sulfate 2 gm, 50 mL, Inactive [facility] Route: IVPB, 2014 Medical Drug form: Center INJ, ONCE, Dosing Weight 114.318, kg, Total dose = 2 gm, Start date: 11/24/14 11:27:00, Duration: 1 doses or times, Stop date: 11/24/14 11:27:00 pneumococcal Notes: (Same Inactive [place] capsular as: Pneumovax 2015 Medical polysaccharide 23) Center type 1 vaccine / Refrigerate pneumococcal capsular polysaccharide type 10A vaccine / pneumococcal capsular polysaccharide type 11A vaccine / pneumococcal capsular polysaccharide type 12F vaccine / pneumococcal capsular polysacchar Saline Flush 0.9% Notes: (Same No Longer [facility] as: BD Active 2014 [facility] Posiflush) Center Versed Notes: (Same Inactive [facility] as: Versed) [address] [place] [address] Pravastatin 40 mg = 1 Inactive [facility] Sodium 40 MG Oral tab, PO, 2015 Medic al Tablet Bedtime, # 30 Center [Pravachol] tab, 0 Refill(s) aspirin 0 Refill(s) Inactive [address] Fenofibrate 160 160 mg = 1 Inactive [place] MG Oral Tablet tab, PO, 2015 Medical Daily, # 30 Center tab, 0 Refill(s) Atenolol 0 Refill(s) Inactive [address] valsartan 320 mg 320 mg = 1 Inactive [facility] oral tablet tab, PO, 2014 Medical Daily, # 30 Center tab, 0 Refill(s) Potassium 0 Refill(s) Inactive [facility] Chloride 20 MEQ 2015 [facility] Extended Release Center Tablet Metolazone 5 MG 5 mg = 1 tab, Inactive [place] Oral Tablet PO, Daily, # 2015 Medical 30 tab, 0 Center Refill(s) Furosemide 40 MG 40 mg = 1 Inactive [place] Oral Tablet tab, PO, 2014 Medical [Lasix] Daily, # 30 Center tab, 0 Refill(s) liothyronine 5 5 microgram = Inactive [facility] mcg oral tablet 1 tab, PO, 2014 Medic al Daily, # 30 Center tab, 0 Refill(s) Omeprazole 0 Refill(s) Inactive [address] spironolactone 25 0 Refill(s) Inactive [facility] mg oral tablet [address] [place] [address] Zofran Notes: (Same Inactive [facility] as: Zofran) [address] [place] [address] Tylenol Notes: Do not Inactive [facility] exceed 4 2015 Medical gm/day. Center (Same as: Tylenol) Sodium Chloride 1,000 mL, No Longer [place] 0.154 MEQ/ML Rate: 75 Active 2014 Medical Injectable ml/hr, Infuse Center Solution over: 13.3 hr, Route: IV, Total Volume: 1,000, Start date: 11/23/14 23:06:00, Duration: 30 day, Stop date: 12/23/14 23:05:00 Saline Flush 0.9% Notes: (Same No Longer [facility] as: BD Active 2014 Medical Posiflush) Center Acetaminophen Notes: Do not No Longer [facility] exceed 4 Active 2014 Medical gm/day. Center (Same as: Tylenol) Doxazosin TAKE ONE NA No Longer 4 Ali Chávez Mesylate TABLET BY Active Cardiology MOUTH DAILY Consult Tikosyn TAKE ONE NA No Longer 500 Ali Chávez CAPSULE BY Active Cardiology MOUTH TWICE A Consult DAY Allergies, Adverse Reactions, Alerts No Known Medication Allergies Immunizations Immunization Date Given Site Status Last Updated Comments Katarina rce pneumococcal 11/24/2014 Not Given [place] as 23-valent vaccine [facility] Results Order Name Results Value Reference Date Interpretation Comments Katarina rce Range CHEM PANEL Magnesium Lvl 2.1 1.8 - 2.4 11/26 [place] [facility] CHEM PANEL Phosphorus 2.8 2.5 - 4.5 11/26 [facility] CHEM PANEL eGFR 40 11/26 <sup>1</sup>Re [place]re sult Comment: Medical The eGFR is Center calculated using the CKD-EPI formula. In most young, healthy individuals the eGFR will be >90 mL/min/1.73m2. The eGFR declines with age. An eGFR of 60-89 may be normal in some populations, particularly the elderly, for whom the CKD-EPI formula has not been extensively validated. Use of the eGFR is not recommended in the following populations:&l t;br/>
Ind ividuals with unstable creatinine concentrations , including patients and those with serious co-morbid conditions.

Patient s with extremes in muscle mass or diet.

The data above are obtained from the National Kidney Disease Education Program (NKDEP) which additionally recommends that when the eGFR is used in patients with extremes of body mass index for purposes of drug dosing, the eGFR should be multiplied by the estimated BMI. CHEM PANEL Glucose Lvl 80 70 - 99 11/26 <sup>4</sup>In terpretive Medical Data: Adult Center reference range values reflect the clinical guidelines<br/ >of the [place] [employer]. CHEM PANEL BUN 18 7 - 22 11/26 [facility] CHEM PANEL Creatinine 1.3 0.5 - 1.4 11/26 [facility] CHEM PANEL Sodium Lvl 136 135 - 145 11/26 [facility] CHEM PANEL Chloride Lvl 102 95 - 109 11/26 [place] [facility] CHEM PANEL Potassium Lvl 3.5 3.5 - 5.1 11/26 [facility] CHEM PANEL Calcium Lvl 9.0 8.5 - 10.5 02 [facility] CHEM PANEL CO2 25 24 - 32 02 [facility] CHEM PANEL AGAP 12.5 10.0 - 02/ 20.0 [facility] HEMATOLOGY RDW 13.1 11.5 - 02/ 14.5 /2014 [facility] HEMATOLOGY MCH 32.4 27.0 - 02 31.0 [facility] HEMATOLOGY MCV 93.5 80.0 - 02 98.0 /2014 [facility] HEMATOLOGY MCHC 34.6 32.0 - 02 36.0 [facility] HEMATOLOGY Hct 33.6 36.0 - 02 48.0 /2014 [facility] HEMATOLOGY Hgb 11.6 12.0 - 02 16.0 /2014 [facility] HEMATOLOGY RBC 3.60 4.20 - 02 5.40 /2014 [facility] HEMATOLOGY WBC 4.6 3.7 - 10.4 02 [facility] HEMATOLOGY MPV 8.3 7.4 - 10.4 02/ [facility] HEMATOLOGY Platelet 149 133 - 450 02 [facility] HEMATOLOGY Segs 62.3 45.0 - 02 75.0 [facility] HEMATOLOGY Lymphocytes # 1.2 1.0 - 5.5 02 [facility] HEMATOLOGY Monocytes # 0.4 0.0 - 0.8 02 [facility] HEMATOLOGY Eosinophils 3.0 0.0 - 4.0 02 [facility] HEMATOLOGY Lymphocytes 26.2 20.0 - 02/ 40.0 [facility] HEMATOLOGY Segs-Bands # 2.9 1.5 - 8.1 11/26 [facility] HEMATOLOGY Basophils 0.5 0.0 - 1.0 02 [facility] HEMATOLOGY Monocytes 8.0 2.0 - 12.0 02/ [facility] HEMATOLOGY Eosinophils # 0.1 0.0 - 0.5 02 [facility] CHEM PANEL Phosphorus 3.1 2.5 - 4.5 0203 [facility] CHEM PANEL eGFR 34 11/25 <sup>2</sup>Re laura Comment: Medical The eGFR is Center calculated using the CKD-EPI formula. In most young, healthy individuals the eGFR will be >90 mL/min/1.73m2. The eGFR declines with age. An eGFR of 60-89 may be normal in some populations, particularly the elderly, for whom the CKD-EPI formula has not been extensively validated. Use of the eGFR is not recommended in the following populations:&l t;br/>
Ind ividuals with unstable creatinine concentrations , including patients and those with serious co-morbid conditions.

Patient s with extremes in muscle mass or diet.

The data above are obtained from the National Kidney Disease Education Program (NKDEP) which additionally recommends that when the eGFR is used in patients with extremes of body mass index for purposes of drug dosing, the eGFR should be multiplied by the estimated BMI. CHEM PANEL CO2 25 24 - 32 11/25 [facility] CHEM PANEL AGAP 12.8 10.0 - 11/25 [facility] 20. [facility] CHEM PANEL Calcium Lvl 8.7 8.5 - 10.5 11/25 [facility] CHEM PANEL Chloride Lvl 104 95 - 109 11/25 [facility] CHEM PANEL BUN 23 7 - 22 11/25 [facility] CHEM PANEL Sodium Lvl 138 135 - 145 11/25 [facility] CHEM PANEL Glucose Lvl 82 70 - 99 11/25 <sup>5</sup>In terpretive Medical Data: Adult Center reference range values reflect the clinical guidelines<br/ >of the [place] [employer]. CHEM PANEL Creatinine 1.5 0.5 - 1.4 11/25 [facility] [place] [facility] CHEM PANEL Potassium Lvl 3.8 3.5 - 5.1 11/25 [facility] CHEM PANEL Magnesium Lvl 2.7 1.8 - 2.4 11/25 [facility] HEMATOLOGY Segs 63.1 45.0 - 11/25 [facility] 75.0 [facility] HEMATOLOGY Lymphocytes 27.1 20.0 - 02 [place] 40.0 /2014 [facility] HEMATOLOGY Monocytes 7.2 2.0 - 12.0 11/25 [facility] HEMATOLOGY Eosinophils # 0.1 0.0 - 0.5 11/25 [facility] HEMATOLOGY Eosinophils 2.2 0.0 - 4.0 / [facility] HEMATOLOGY Basophils 0.4 0.0 - 1.0 11/25 [facility] HEMATOLOGY Segs-Bands # 3.1 1.5 - 8.1 11/25 [facility] HEMATOLOGY Monocytes # 0.3 0.0 - 0.8 11/25 [facility] HEMATOLOGY Lymphocytes # 1.3 1.0 - 5.5 11/25 [facility] HEMATOLOGY MPV 8.5 7.4 - 10.4 11/25 [facility] HEMATOLOGY MCH 31.6 27.0 - 11/25 31.0 [facility] HEMATOLOGY MCV 93.4 80.0 - 11/25 98.0 /2014 [facility] HEMATOLOGY Hct 33.2 36.0 - 11/25 [place] 48.0 /2014 [facility] HEMATOLOGY Platelet 151 133 - 450 11/25 [facility] HEMATOLOGY RDW 13.1 11.5 - 11/25 14.5 /2014 [facility] HEMATOLOGY MCHC 33.8 32.0 - 11/25 36.0 /2014 [facility] HEMATOLOGY Hgb 11.2 12.0 - 02 16.0 [facility] HEMATOLOGY RBC 3.56 4.20 - 02 [place] 5.40 /2014 [facility] HEMATOLOGY WBC 4.9 3.7 - 10.4 11/25 [facility] HEMATOLOGY INR 1.14 0.85 - 02 <sup>7</sup>In as 1.17 terpretive Medical Data: Center RECOMMENDED RANGES FOR PROTIME INR:
2.0-3.0 for most medical and surgical thromboembolic states.
2.5-3.5 for artificial heart valves and recurrent embolism.

INR SHOULD BE USED ONLY FOR PATIENTS ON STABLE ANTICOAGULANT THERAPY. HEMATOLOGY PTT 28.5 22.9 - 11/25 <sup>9</sup>In Alexandre as 35.8 /2014 terpretive Medical Data: Heparin Center Therapeutic Range: 57 - 92 [facility] HEMATOLOGY PT 14.7 12.0 - 11/25 [facility] 14.7 [facility] THYROID TSH 3.190 0.360 - 11/25 [place] PANEL 3.740 /2014 [facility] URINE AND UA <=1.0 0.1 - 1.0 11/24 [facility] Urobilinogen mg/dL /2014 [facility] URINE AND UA Renal Epi 7 <=0 /LPF 11/24 [facility] /2014 [facility] URINE AND UA Sq Epi Moderate Few /LPF 11/24 [facility] STOOL /LPF /2014 [facility] URINE AND UA WBC 2 0 - 5 11/24 [facility] [address] [place] [address] URINE AND UA Nitrite Negative Negative 11/24 [facility] (11/24/14 2:06 AM) /2014 [facility] URINE AND UA Leuk Est Negative Negative 11/24 [facility] (11/24/14 2:06 AM) /2014 [facility] URINE AND UA Blood Negative Negative 11/24 [facility] (11/24/14 2:06 AM) /2014 [facility] URINE AND UA Protein Negative Negative 11/24 [facility] mg/dL mg/dL /2014 [facility] URINE AND UA pH 6.5 5.0 - 8.0 11/24 [facility] [address] [place] [address] URINE AND UA Glucose Negative Negative 11/24 [facility] mg/dL mg/dL [facility] URINE AND UA Bili Negative Negative 11/24 [facility] *NA* /2014 [facility] (11/24/14 2:06 AM) [place] URINE AND UA Ketones Negative Negative 11/24 [facility] mg/dL mg/dL /2014 [facility] URINE AND UA Spec Grav 1.009 <=1.030 11/24 [facility] /[address] [place] [address] URINE AND UA Turbidity Clear Clear 11/24 [facility] (11/24/14 2:06 AM) /2014 [facility] URINE AND UA Color Yellow Yellow 11/24 [facility] *NA* /2014 [facility] (11/24/14 2:06 AM) [place] CHEM PANEL A/G Ratio 1.2 0.7 - 1.6 11/24 [facility] [address] [place] [address] CHEM PANEL Globulin 3.2 2.0 - 4.0 11/24 [facility] CHEM PANEL B/C Ratio 22 6 - 25 11/24 [facility] CHEM PANEL AGAP 9.8 10.0 - 02 [facility] 20.0 /2014 [facility] CHEM PANEL eGFR 29 02 <sup>3</sup>Re [facility] sult Comment: Medical The eGFR is Center calculated using the CKD-EPI formula. In most young, healthy individuals the eGFR will be >90 mL/min/1.73m2. The eGFR declines with age. An eGFR of 60-89 may be normal in some populations, particularly the elderly, for whom the CKD-EPI formula has not been extensively validated. Use of the eGFR is not recommended in the following populations:&l t;br/>
Ind ividuals with unstable creatinine concentrations , including patients and those with serious co-morbid conditions.

Patient s with extremes in muscle mass or diet.

The data above are obtained from the National Kidney Disease Education Program (NKDEP) which additionally recommends that when the eGFR is used in patients with extremes of body mass index for purposes of drug dosing, the eGFR should be multiplied by the estimated BMI. CHEM PANEL Glucose Lvl 125 70 - 99 11/24 <sup>6</sup>In terpretive Medical Data: Adult Center reference range values reflect the clinical guidelines<br/ >of the [place] [employer]. CHEM PANEL Calcium Lvl 8.7 8.5 - 10.5 11/24 [facility] CHEM PANEL ALT 29 0 - 65 11/24 2014 [facility] CHEM PANEL AST 17 0 - 37 11/24 [facility]2014 [facility] CHEM PANEL Albumin Lvl 3.7 3.5 - 5.0 11/24 [facility] CHEM PANEL Total Protein 6.9 6.4 - 8.4 11/24 [facility] CHEM PANEL CO2 28 24 - 32 11/24 [facility]2014 [facility] CHEM PANEL Chloride Lvl 103 95 - 109 11/24 [facility] CHEM PANEL Potassium Lvl 3.8 3.5 - 5.1 11/24 [facility] CHEM PANEL Sodium Lvl 137 135 - 145 11/24 [facility]2014 [facility] CHEM PANEL Creatinine 1.7 0.5 - 1.4 02 [facility] Lvl [facility] CHEM PANEL BUN 37 7 - 22 11/24 [facility] CHEM PANEL Alk Phos 37 39 - 136 11/24 [facility] CHEM PANEL Bili Total 0.4 0.2 - 1.3 11/24 [facility] [address] [place] [address] HEMATOLOGY Monocytes # 0.4 0.0 - 0.8 11/24 [facility] s [facility] HEMATOLOGY Lymphocytes # 1.1 1.0 - 5.5 11/24 [facility] xa [facility] HEMATOLOGY Eosinophils # 0.1 0.0 - 0.5 11/24 [facility] HEMATOLOGY Segs 70.9 45.0 - 02 [facility] 75.0 [facility] HEMATOLOGY Monocytes 6.7 2.0 - 12.0 11/24 [facility] HEMATOLOGY Lymphocytes 19.7 20.0 - 11/24 40.0 [facility] HEMATOLOGY Eosinophils 2.3 0.0 - 4.0 11/24 [facility] HEMATOLOGY Segs-Bands # 4.0 1.5 - 8.1 11/24 [facility] HEMATOLOGY Basophils 0.4 0.0 - 1.0 11/24 [facility] HEMATOLOGY PTT 28.2 22.9 - 02 <sup>10</sup>I [facility] as 35.8 nterpretive Medical Data: Heparin Center Therapeutic Range: 57 - 92 [facility] HEMATOLOGY PT 13.9 12.0 - 02 14.7 [facility] HEMATOLOGY INR 1.07 0.85 - 11/24 <sup>8</sup>In [facility] as 1.17 terpretive Medical Data: Center RECOMMENDED RANGES FOR PROTIME INR:
2.0-3.0 for most medical and surgical thromboembolic states.
2.5-3.5 for artificial heart valves and recurrent embolism.

INR SHOULD BE USED ONLY FOR PATIENTS ON STABLE ANTICOAGULANT THERAPY. HEMATOLOGY MPV 8.8 7.4 - 10.4 02 [facility] HEMATOLOGY WBC 5.7 3.7 - 10.4 11/[address] HEMATOLOGY MCV 94.9 80.0 - 02/02 [facility] 98.0 /2014 [facility] HEMATOLOGY RBC 3.73 4.20 - 11/24 [facility] 5.40 /2014 [facility] HEMATOLOGY RDW 13.3 11.5 - 11/24 [facility] 14.5 /2014 [facility] HEMATOLOGY Hgb 12.1 12.0 - 11/24 [facility] 16.0 /2014 [facility] HEMATOLOGY Hct 35.3 36.0 - 11/24 [facility] 48.0 /2014 [facility] HEMATOLOGY Platelet 158 133 - 450 02 [facility] HEMATOLOGY MCHC 34.2 32.0 - 02 [facility] 36.0 /2014 [facility] HEMATOLOGY MCH 32.5 27.0 - 11/24 [facility] 31.0 /2014 [facility] LIPIDS CHD Risk 2.81 3.90 - 11/24 [facility] 5.80 /2014 [facility] LIPIDS VLDL 26 11/24 [facility] LIPIDS LDL 59 <=99 mg/dL 11/24 [facility] (Calculated) [facility] LIPIDS Trig 128 <=149 11/24 [facility] mg/dL [facility] LIPIDS HDL 47 >=61 mg/dL 11/24 [facility] LIPIDS Chol 132 <=199 11/24 [facility] mg/dL [facility] SPECIAL Hgb A1C 5.6 <=5.6 % 11/24 [facility] CHEMISTRY [facility] Pathology Reports No Data Provided for This Section Diagnostic Reports Report Value Date Source Neck wo contrast MRA EXAM: MRI BRAIN 11/24/2014 [facility] dical EXAM: MRA BRAIN Center EXAM: MRA NECK DATE: 11/24/2014 COMPARISON: None available. CLINICAL INDICATION: Aphasia TECHNIQUE: Multiecho multipl mery images were obtained without contrast including axial [...] evidence of slow flow within the left MC A. Few micro hemorrhages are seen within the right thalamus and left posterior temporal lobe, likely hypertensive in nature. The ventricles and sulci are normal in size. The basal cisterns are patent. No extra-axial collec tion is present. MRA of the brain demonstrate s occlusion of a left M2 segment branch. The remainder of the cerebral arteries are normal in caliber. No aneurysm is identified. Right type BUSINESS FUNCTIONAL ANALYST is present, a normal variant. There is normal origin of th e 3 great vessels from the aortic arch. The carotid bifurcations in the neck are normal. There is no carotid stenosis. The vertebral arteries are normal. The basilar artery i s intact. 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 IMPRESSION: 1. Acute infarct in the left MCA territory witho ut hemorrhage. 2. Occlusion of a left M2 segment branch. 3. Normal MRA of the neck. Brain wo contrast MRA EXAM: MRI BRAIN 11/24/2014 [facility] edical EXAM: MRA BRAIN Center EXAM: MRA NECK DATE: 11/24/2014 COMPARISON: None available. CLINICAL INDICATION: Aphasia TECHNIQUE: Multiecho multipl mery images were obtained without contrast including axial [...] evidence of slow flow within the left MC A. Few micro hemorrhages are seen within the right thalamus and left posterior temporal lobe, likely hypertensive in nature. The ventricles and sulci are normal in size. The basal cisterns are patent. No extra-axial collec tion is present. MRA of the brain demonstrate s occlusion of a left M2 segment branch. The remainder of the cerebral arteries are normal in caliber. No aneurysm is identified. Right type BUSINESS FUNCTIONAL ANALYST is present, a normal variant. There is normal origin of th e 3 great vessels from the aortic arch. The carotid bifurcations in the neck are normal. There is no carotid stenosis. The vertebral arteries are normal. The basilar artery i s intact. 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 IMPRESSION: 1. Acute infarct in the left MCA territory witho ut hemorrhage. 2. Occlusion of a left M2 segment branch. 3. Normal MRA of the neck. Brain wo contrast MRI EXAM: MRI BRAIN 11/24/2014 [facility] edical EXAM: MRA BRAIN Center EXAM: MRA NECK DATE: 11/24/2014 COMPARISON: None available. CLINICAL INDICATION: Aphasia TECHNIQUE: Multiecho multipl mery images were obtained without contrast including axial [...] evidence of slow flow within the left MC A. Few micro hemorrhages are seen within the right thalamus and left posterior temporal lobe, likely hypertensive in nature. The ventricles and sulci are normal in size. The basal cisterns are patent. No extra-axial collec tion is present. MRA of the brain demonstrate s occlusion of a left M2 segment branch. The remainder of the cerebral arteries are normal in caliber. No aneurysm is identified. Right type BUSINESS FUNCTIONAL ANALYST is present, a normal variant. There is normal origin of th e 3 great vessels from the aortic arch. The carotid bifurcations in the neck are normal. There is no carotid stenosis. The vertebral arteries are normal. The basilar artery i s intact. 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 IMPRESSION: 1. Acute infarct in the left MCA territory witho ut hemorrhage. 2. Occlusion of a left M2 segment branch. 3. Normal MRA of the neck. Consultation Notes No Data Provided for This Section Discharge Summaries No Data Provided for This Section History and Physicals No Data Provided for This Section Vital Signs Vital Sign Value Date Comments Source Respitory Rate 16 11/26/2014 [facility] Systolic (mm Hg) 172 11/26/2014 [facility] Diastolic (mm Hg) 79 11/26/2014 [facility] Heart Rate 57 11/26/2014 [facility] Temperature Oral (F) 97.5 F 11/26/2014 [facility] Temperature Oral (F) 97.5 F 11/26/2014 [facility] Heart Rate 69 11/26/2014 [facility] Diastolic (mm Hg) 79 11/26/2014 [facility] Respitory Rate 18 11/26/2014 [facility] Systolic (mm Hg) 166 11/26/2014 [facility] Respitory Rate 16 11/26/2014 [facility] Systolic (mm Hg) 157 11/26/2014 [facility] d[facility] Center Diastolic (mm Hg) 66 11/26/2014 [facility] Heart Rate 65 11/24/2014 [facility] Weight 114.318 11/24/2014 [facility] BMI Calculated 43.26 11/24/2014 [facility] Height 162.56 cm 11/24/2014 [facility] Encounters Location Location Encounter Encounter Reason Attending ADM PR Stat us Source Details Type Number For Provider Date Date Visit [facility] [id number] Bennett Salmon 11/24 11/26 [facility] /2014 [facility] PT/INR 3.0 [id number] 12/19 12/19 [facility] [id number]- /2014 [facility] [id number] y [facility] PT/INR 3.0 [id number] 12/19 12/19 [facility] [id number]- /2014 [facility] [id number] y [facility] PT/INR 3.0 [id number] 12/19 12/19 [facility] [id number]- /2014 [facility] [id number] y [facility] PT/INR 3.0 [id number] 12/19 12/19 [facility] [id number]- /2014 [facility] [id number] y [facility] Unknown [id number] 12/19 12/19 [facility] [id number]- /2014 [facility] [id number] y Consult [facility] Unknown [id number] 12/19 12/19 [facility] [id number]- /2014 [facility] [id number] y [facility] Unknown [id number] 12/19 12/19 [facility] [id number]- /2014 [facility] [id number] y [facility] Unknown [id number] 12/19 12/19 [facility] [id number]- /2014 [facility] [id number] y [facility] PT/INR 3.0 [id number] 12/19 12/19 [facility] [id number]- /2014 [facility] [id number] y [facility] PT/INR 3.0 [id number] 12/19 12/19 [facility] [id number]- /2014 [facility] [id number] y [facility] Unknown [id number] 12/19 12/19 [facility] [id number]- /2014 [facility] [id number] y [facility] Unknown [id number] 12/19 12/19 [facility] [id number]- /2014 [facility] [id number] y [facility] Unknown [id number] 03/23 03/23 [facility] [id number]- /2014 [facility] [id number] y [facility] Unknown [id number] 03/23 03/23 [facility] [id number]- /2014 [facility] [id number] y [facility] Unknown [id number] 03/23 03/23 [facility] [id number]- /2014 [facility] [id number] y [facility] Unknown [id number] 03/23 03/23 [facility] [id number]- /2014 [facility] [id number] y [facility] Unknown [id number] 03/23 03/23 [facility] [id number]- /2014 [facility] [id number] y [facility] Unknown [id number] 03/23 03/23 [facility] [id number]- /2014 [facility] [id number] y [facility] Unknown [id number] 08/12 08/12 [facility] [id number]- /2014 [facility] [id number] y [facility] Unknown [id number] 08/12 08/12 [facility] [id number]- /2014 [facility] [id number] y [facility] Unknown [id number] 08/12 08/12 [facility] [id number]- /2014 [facility] [id number] y [facility] Unknown [id number] 08/12 08/12 [facility] [id number]- /2014 [facility] [id number] y [facility] Unknown [id number] 08/12 08/12 [facility] [id number]- /2014 [facility] [id number] y [facility] Unknown [id number] 08/12 08/12 [facility] [id number]- /2014 [facility] [id number] y [facility] Unknown [id number] 01/28 01/28 [facility] [id number]- /2015 [facility] [id number] [facility] Unknown [id number] 01/28 01/28 [facility] [id number]- /2015 [facility] [id number] y [facility] Unknown [id number] 01/28 01/28 [facility] [id number]- /2015 [facility] [id number] y [facility] Unknown [id number] 01/28 01/28 [facility] [id number]- /2015 [facility] [id number] y [facility] Unknown [id number] 01/28 01/28 [facility] [id number]- /2015 [facility] [id number] y [facility] Unknown [id number] 01/28 01/28 [facility] [id number]- /2015 [facility] [id number] y [facility] Unknown [id number] 03/11 03/11 [facility] [id number]- /2015 [facility] [id number] y [facility] Unknown [id number] 03/11 03/11 [facility] [id number]- /2015 [facility] [id number] y Consult [facility] Unknown [id number] 03/11 03/11 [facility] [id number]- /2015 [facility] [id number] y Consult [facility] Unknown [id number] 03/11 03/11 [facility] [id number]- /2015 [facility] [id number] y Consult [facility] Unknown [id number] 03/11 03/11 [facility] [id number]- /2015 [facility] [id number] y Consult [facility] Unknown [id number] 04/15 04/15 [facility] [id number]- /2015 [facility] [id number] y Consult [facility] Unknown [id number] 04/15 04/15 [facility] [id number]- /2015 [facility] [id number] y Consult [facility] Unknown [id number] 04/15 04/15 [facility] [id number]- /2015 [facility] [id number] y Consult [facility] Unknown [id number] 04/15 04/15 [facility] [id number]- /2015 [facility] [id number] y Consult [place] Unknown [id number] 04/15 04/15 [facility] [id number]- /2015 [facility] [id number] y Consult [facility] Unknown [id number] 04/15 04/15 [facility] [id number]- /2015 [facility] [id number] y Consult [facility] Unknown [id number] 04/15 04/15 [facility] [id number]- /2015 [facility] [id number] y Consult [facility] Unknown [id number] 04/15 04/15 [facility] [id number]- /2015 [facility] [id number] y Consult [facility] Other [id number] 09/09 09/09 [facility] [id number]- /2015 [facility] [id number] y Consult [place] Other [id number] 09/09 09/09 [facility] [id number]- /2015 [facility] [id number] y Consult [place] Unknown [id number] 12/20 12/20 [facility] [id number]- /2016 [facility] [id number] y Consult Procedures Procedure Code Date Perfomer Comments Source Knee replacement [id number] [facility] Assessment and Plan Assessment and Plan Date Source Extracted from:Title: Stroke Follow Up 11/26/2014 [facility] Author: Leida Alfaro Date: 11/26/14 Arranged for patient to follow up with [facility] on January 06, 2015 at 10:30am with DAMIÁN Cardona/Dr. Diallo. Patient is aware and agreeable to appointment. Will remain available as needed. Leida Alfaro LMSW [facility]#[id number] Transitional Acquisition Lead Addendum by Leida Alfaro on 11/26/2014 13:11 Patient will also follow up with her Car diologist, Dr. David Salmon [phone], to monitor her PT INR on Friday, November 28, 2014 at 11:15am. Extracted from:Title: Stroke Author: Bal Pierce DO Date: 11/23/14 STROKE TEAM HISTORY AND PHYSICAL Attending of Record: Dr. Begum Date of Admission: 11/24/14 Requesting Physician/Service: Transfer from OSH ([facility]) CC: expressive aphasia HISTORY OF PRESENT ILLNESS: Patient is a 74 year old right handed fe male with pmhx of hypertension, coronary artery disease, GERD, hyperthyroidism and mitral valve prolapse p/w expressive aphasia from OSH s/p tPA. Patient presente lorena to [facility] with acute onset of word finding difficulty around 7pm. Pt arrived at [facility] 1944 CTH was done at 1999. NIHSS was 8. At baseline patient is able to perform all of his ADLs witho ut difficulty. TPA GIVEN CTH was negative for bleed. tPA contrain dications were ruled out, and patient and family was explained in detail about benefit and risk of tPA. Total dose of tPA was calculated to be 9 0mg, 9mg was given as a bolus at [...] cramps LYMPH/IMMUNO: No lymph node enlargement/tenderness, no heat/ cold intolerance PAST MEDICAL HISTORY: Hypertension, hypothyroidism, arthritis, mitral valve prolapse and mitral regurgitation. PAST SURGICAL HISTORY: In 08/2007, cath report showing luminal irregularities in all the coronary arteries with an ejection fraction of 55% to 59% with some mitral regurgitation, mitral valve prolapse with no obstructive terrance [...] she quit 30 years ago, had a 18-wiau-clld history. MEDICATIONS: KCL Omeprazole Valsartan Fenofibrate Pravachol Spironolactone Lasix Liothyronine ASA Atenolol Metolazone ALLERGIES: PHYSICAL EXAM: Vitals Tmp(F) Pulse BP RR SpO2 FIO2 02/02 00:04 ---- --- ----- -- 100 --- 11/23 23:41 98.1 --- ----- -- --- --- 11/23 23:32 97.2 --- ----- -- --- --- 11/23 23:15 ---- 64 131/56 17 100 --- 11/23 23:00 ---- 66 148/61 23 99 --- 24 Hr Tmax: 98.1F (36.72c) at 11/23 23:4 1 Vital Signs are the last 5 in the past 48 hours. GENERAL: Awake/drowsy/somnolent/comatose, alert/intubated/se dated, NAD. HEENT: - Normocephalic and atraumatic; MMM LUNGS - Clear to auscultation bilaterally with no wheezes CV - S1S2 RRR, no m/r/g, equal pulses bilaterally. ABDOMEN - Soft, nontender, nondistended with normoactive BS NEURO: Mental status: Awake, alert, and interac tive. Intermittently follows commands, fluent speech but not making sense. Cranial nerves: Pupils equal, round, and reactive. R__4____mm L__4___mm. Visual cardenas intact to confrontation. Eye movements full without nystagmus. Face symmetric at rest and with activation. Facial s ensation is intact to light touch. Tongu e and palate midline. Good strength in trapezius and sternocleidomastoid bilaterally. Motor: Normal bulk and tone. Strength is 5/5 proximally and distally. Sensation: Intact to light touch, pinpri ck, temperature and vibration throughout. Coordination: No dysmetria on finger-nose Reflexes: R Biceps 2+, Triceps 2+, Brachioradialis 2+, Hernandez la 2+, Ankle 2+. L Biceps 2+, Triceps 2+, Brachioradialis 2+, Patella 2+, Ankle 2+. Toes downgoing bilaterally. Gait: deferred NIH Stroke Scale (NIHSS) 0 1a. Level of Consciousness; 0-alert 1-drowsy 2-stupor 3 -comatose 2 1b. LOC Questions month and age; 0-both 1-one 2-neit her 1 1c. LOC Commands open/close eyes, gr ip/release non-paretic hand; 0-both 1- one 2-neither 0 2. Best Gaze; 0-nl 1-partial 2-forced gaze 0 3. Visual Cardenas; 0-No visual loss. 1- Partial hemianopia 2-Complete 3-Bilateral 0 4. Facial Palsy; 0-none 1-minor 2-partial [...] 3-mute 0 12. Dysarthria; 0-nl 1-mild/mod 2-severe x-unte stable 1 13. Extinction and Inattention (former ly Neglect); 0-none 1-partial 2-complete TOTAL SCORE 6 SIGNIFICANT LABS: Creatinine: 1.9 , BUN 41 Glucose: 134 INR: 0.98 Cardiac Markers: negative x 1 BNP 152 DIAGNOSTIC TESTS: CT Head OSH: no acute abn; mild atrophy and chronic ischemic changes present CTA/Perfusion: pend MRI brain wo contr/MRA h/n: pend EKG: NSR ASSESSMENT: Patient is a 74 year old right handed fe male with pmhx of hypertension, coronary artery disease, GERD, hyperthyroidism and mitral valve prolapse p/w expressive aphasia from OSH s/p tPA. Patient presente d to [facility] with acute onset of word finding difficulty around 7pm. On exam patient has expressive aphasia but no obvious weakness noted. She was given tPA at 2043 after exclusion criteria was met. Her initial NIHSS was 8 and now a 6. Ethel ging reveals no acute infarct from OSH but we will repeat imaging here inlcuding MRI/MRA. DIFFERENTIAL DIAGNOSIS Left MCA stroke Etiology: TBD PLAN Post IV-thrombolysis Admit to stroke unit. Post IV t-PA care per protocol. Goal BP post-tPA < 180/105. IV NS 75 cc/h Telemetry CXR HOB flat No aspirin or heparin products for 24 hours post-t-PA, per p rotocol. If schaefer catheter present on admission, document necessity Atorvastatin 80mg daily has been ordered. MRI brain to evaluate for infarct. MRA h/n TTE to evaluate for cardiac source of embolus. Check fasting lipid panel and HbA1c. Treat fevers and blood sugars aggressively. 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 NPO prior to bedside swallow assessment; and escalation of care as determined by nurse DVT prophylaxis with SCDs. 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 Jairo etienne, I have discussed the case with and reviewed the resident's note and agree with the history, exam, assessment and plan. See note below for additi ons and/or exceptions and my findings. I have personally viewed the patient's radiographic studies and laboratory tests. 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 Plan: Cerebral thrombosis w/ infarct 434.01 Current suspected etiology: to be determined, suspect cardi oembolic Continue evaluation: TTE to evaluate ca rdiac function and possible source of emboli, Check and HgbA1c, cardiac telemetry Treatment/Plan: Plavix for stroke preven tion @ 24 hrs s/pt tpa, Statin, may need 30 day event monitor if no etiology elicited during admission Hypertension 401.9 Treatment: Start Oral BP meds, BP goals < 185 Hyperlipidemia 272.2 Treatment: Statin Physical Therapy/Occupational Therapy Evaluation Disposition recommendation: Speech and Language Recommendations: DVT Prophylaxis Treatment: SCDs, SQ Heparin @ 24 hrs Follow up care: Will need to follow up i n stroke clinic in 4-6 weeks 6-8 weeks after discharge. Discuss philosophy of care with patient and family, reviewed and updated on plan of care and prognosis Code: 18074 Inpatient admission ======== CORE MEASURES: 1) Antithrombotics have been ordered an d given before the end of hospital day 2 and continued on discharge OR NOT APPLICABLE BECAUSE: 2) Statins have been ordered for LDL > 1 00 and will be continued on discharge OR NOT APPLICABLE BECAUSE: 3) Rehab assessment has been ordered OR I have assessed the patient and rehab IS NOT APPLICABLE AT THIS TIME BECAUSE: 4) The patient has Atrial Fibrillation/F lutter but was not discharged on anticoagulant medications due to risk of hemorrhagic transformation and will be continued on Antithrombotics until repeat CT scan is stable before initiated anticoagulation. 5) Stroke education: I have discussed wi th the patient and/or family in detail about 1. the signs and symptoms of stroke; 2. the importance of their early recognition and activation of EMS via 911; 3. s troke risk factors have been clearly sirena ntified and communicated to the patient; 4. The importance of taking prescribed medication to treat these risk factors for secondary stroke prevention; and 5. th e importance of regular follow- up appoi ntments to prevent stroke has also been emphasized. Teo CarrilloJasonmorales Reeder MD [employer] Manager of Neurology Pager: [phone] Addendum by Teo Reeder MD on 11/25/2014 19:06 The patient does not have AFIB Teo (Jason) MD Varinder [employer] Manager of Neurology Pager: [phone] Plan of Care No Data Provided for This Section Social History Social History Date Source Social History ElementQualifiersDate Reported 09/27/2016 [facility] Smoking . Status: former smoker Sep 27, 2016 Marital Status: . Sep 27, 2016 Caffeine intake? . Status: Yes, What type: Coffee, Soft Drinks, 1 cup a day Sep 27, 2016 New since last visit: none. Sep 27, 2016 Exercise . Status: Yes, Type: walking, biking Sep 27, 2016 Alcohol Use: . Status: No Sep 27, 2016 Travel outside [place]: no. Sep 27, 2016 Occup. exposure: none. Sep 27, 2016 Occupation: unemployed. Sep 27, 2016 Social History TypeResponse 11/24/2014 [facility] Smoking Status Never smoker, Ready to change: No, Anna rns about tobacco use in household: No, Exposure to Tobacco Smoke None, Cigarette Smoking Last 365 Days No, Reg Smoking Cessation Counseling No Family History No Data Provided for This Section Advance Directives No Data Provided for This Section Functional Status No Data Provided for This Section
--- OUTSIDE RECORDS SUMMARY | 2020-03-09 16:28 | XMS REPORT ---
:1939 Author Organization eClinicalWorks Care Team Providers Name Role Phone Bennett Salmon Provider Role Unavailable Encounters Encounter Location Date Unknown [place] [employer] Aug 12, Unknown [place] [facility] [employer] January 29, 2016 Unknown [place] [employer] March 11, Unknown [place] [employer] April 15, 2016 Unknown [place] [employer] Dec 19, PT/INR 3.0 [place] [employer] Dec 19, Unknown [place] [employer] March 23, 2015 Unknown [place] [employer] April 15, 2016 Problems Problem Type Condition ICD-9 Code Onset Dates Condition Statu s Problem Personal history of fall V15.88 Act adrienne Problem 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, benign, with heart failure and with chronic kidney disease stage I through stage IV, or unspecified Problem Upper respiratory tract 478.8 Acti ve hypersensitivity reaction, site unspecified Problem Acute upper respiratory 465.9 Acti ve infections of unspecified site Problem Unspecified transient cerebral 435.9 Active ischemia Problem Palpitations 785.1 Active Problem Other specified cardiac 427.89 Acti ve dysrhythmias Problem Personal history of transient V12.54 Active ischemic attack [TIA], and cerebral infarction without residual deficits Problem Atrial fibrillation 427.31 Active Problem Transient cerebral ischemic G45.9 Active attack, unspecified Problem Palpitations R00.2 Active Problem History of falling Z91.81 Active Problem Personal history of transient Z86.73 Active ischemic attack (TIA), and cerebral infarction without residual deficits Problem Bradycardia, unspecified R00.1 Act adrienne Problem Arthropathy, unspecified M12.9 Act adrienne Problem Major depressive disorder, F32.9 A ctive single episode, unspecified Problem Abnormal electrocardiogram [ECG] R94.31 Active [EKG] Problem Morbid (severe) obesity due to E66.01 Active excess calories Problem Chest pain, unspecified R07.9 Acti ve Problem Chronic kidney disease, N18.9 Acti ve unspecified Problem Constipation, unspecified K59.00 Ac tive Problem Shortness of breath R06.02 Active Problem Congestive heart failure, 428.0 Ac tive unspecified Problem Mitral valve disorders 424.0 Activ e Problem Insomnia, unspecified 780.52 Active Problem Unspecified hypothyroidism 244.9 A ctive Problem Other and unspecified 272.4 Active hyperlipidemia Problem Insomnia, unspecified G47.00 Active Problem Chronic kidney disease, Stage 585.3 Active III (moderate) Problem Hypothyroidism, unspecified E03.9 Active Problem Hyperlipidemia, unspecified E78.5 Active Problem Essential (primary) hypertension I10 Active Problem 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 Problem Anxiety disorder, unspecified F41.9 Active Problem Impaired fasting blood sugar R73.01 Active Problem Female genuine stress N39.3 Active incontinence Problem Other malaise and fatigue 780.79 Ac tive Problem Paroxysmal atrial fibrillation I48.0 Active Problem Obesity, unspecified 278.00 Active Problem Nonrheumatic mitral (valve) I34.0 Active insufficiency Problem Unspecified constipation 564.00 Act adrienne Problem Hypertensive heart and chronic I13.0 Active kidney disease with heart failure and stage 1 through stage 4 chronic kidney disease, or unspecified chronic kidney disease Problem Hypertension essential benign 401.1 Active Problem Chronic diastolic (congestive) I50.32 Active heart failure Problem Occlusion and stenosis of 433.10 Ac tive carotid artery without mention of cerebral infarction Problem Unspecified arthropathy, site 716.90 Active unspecified Problem Depressive disorder, not 311 Act adrienne elsewhere classified Problem Nonspecific abnormal 794.31 Active electrocardiogram (ECG) (EKG) Problem Morbid obesity 278.01 Active Problem Shortness of breath 786.05 Active Problem Chest pain, unspecified 786.50 Acti ve Medications Medication Code System Code Instructions Start Date End Date Status Dosage Cipro MEDISPAN [address] 500 MG Orally April 15 1 tab let -01 Twice a day 2015 Social History Social History Element Qualifiers Date Reported Smoking . Status: former smoker April 11, 2016 Marital Status: . April 11, 2016 Caffeine intake? . Status: Yes, What type: Coffee, Soft Drinks, April 11, 2016 1 cup a day New since last visit: none. April 11, 2016 Exercise . Status: Yes, Type: walking, biking [place] 2015 Alcohol Use: . Status: No April 11, 2016 Travel outside [place]: no. April 11, 2016 Occup. exposure: none. April 11, 2016 Occupation: unemployed. April 11, 2016 Summary Purpose eClinicalWorks Submission
--- OUTSIDE RECORDS SUMMARY | 2020-03-09 16:28 | XMS REPORT ---
:1939 [facility] Team Providers Name Role Phone Alessandra Salmonul Provider Role Unavailable Allergies No Known Allergies Problems Problem Type Condition Code Onset Dates Condition Statu s Problem Atrial fibrillation 427.31 Active Problem Personal history of transient V12.54 Active ischemic attack [TIA], and cerebral infarction without residual deficits Problem Palpitations R00.2 Active Problem Transient cerebral ischemic attack, G45.9 Active unspecified Problem Bradycardia, unspecified R00.1 Act adrienne Problem Personal history of transient Z86.73 Active ischemic attack (TIA), and cerebral infarction without residual deficits Problem History of falling Z91.81 Active Problem Abnormal electrocardiogram [ECG] R94.31 Active [EKG] Problem Morbid (severe) obesity due to E66.01 Active excess calories Problem Arthropathy, unspecified M12.9 Act adrienne Problem Major depressive disorder, single F32.9 Active episode, unspecified Problem Chest pain, unspecified R07.9 Acti ve Problem Shortness of breath R06.02 Active Problem Constipation, unspecified K59.00 Ac tive Problem Hypothyroidism, unspecified E03.9 Active Problem Hyperlipidemia, [...] Active (moderate) Problem Congestive heart failure, 428.0 Ac tive unspecified Problem Hypertension essential benign 401.1 Active Problem Occlusion and stenosis of carotid 433.10 Active artery without mention of cerebral infarction Problem Insomnia, unspecified 780.52 Active Problem Mitral valve disorders 424.0 Activ e Problem Other and unspecified 272.4 Active hyperlipidemia Problem Unspecified hypothyroidism 244.9 A ctive Problem Obesity, unspecified 278.00 Active Problem Other malaise and fatigue 780.79 Ac tive Problem Shortness of breath 786.05 Active Problem Chest pain, unspecified 786.50 Acti ve Problem Chronic diastolic (congestive) I50.32 Active heart failure Problem Unspecified constipation 564.00 Act adrienne Problem [...] Active unspecified Problem Frequency of micturition R35.0 Act adrienne Problem Morbid obesity 278.01 Active Problem Female genuine stress incontinence N39.3 Active Problem Nonspecific abnormal 794.31 Active electrocardiogram (ECG) (EKG) Problem Palpitations 785.1 Active Problem Other specified cardiac 427.89 Acti ve dysrhythmias Problem Upper respiratory tract 478.8 Acti ve hypersensitivity reaction, site unspecified Problem Unspecified transient cerebral 435.9 Active ischemia Problem Personal history of fall V15.88 Act adrienne Problem Acute upper respiratory infections 465.9 Active of unspecified site Medications Medication Code System Code Instructions Start Date End Date Status Dosage Denae [facility] [address] 5 MG Orally twice Jun 08, Active 1 t ablet -21 a day 2016 Results No Known Results Summary Purpose eClinicalWorks Submission
--- OUTSIDE RECORDS SUMMARY | 2020-03-09 16:28 | XMS REPORT ---
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, benign, with heart failure and with chronic kidney disease stage I through stage IV, or unspecified Problem Depressive disorder, not 311 Act adrienne elsewhere classified Problem Acute upper respiratory 465.9 Acti ve infections of unspecified site Problem Personal history of fall V15.88 Act adrienne Problem Upper respiratory tract 478.8 Acti ve [...] Problem Bradycardia, unspecified R00.1 Act adrienne Problem Palpitations R00.2 Active Problem Morbid (severe) obesity due to E66.01 Active excess calories Problem Arthropathy, unspecified M12.9 Act adrienne Problem History of falling Z91.81 Active Problem Abnormal electrocardiogram [ECG] R94.31 Active [EKG] Problem Shortness of breath R06.02 Active Problem Chest pain, unspecified R07.9 Acti ve Problem Major depressive disorder, F32.9 A ctive single episode, unspecified Problem Constipation, unspecified K59.00 Ac tive Problem Chronic kidney disease, Stage 585.3 Active III (moderate) Problem Mitral valve disorders 424.0 Activ e Problem Insomnia, unspecified 780.52 Active Problem Unspecified hypothyroidism 244.9 A ctive Problem Chronic kidney disease, N18.9 Acti ve unspecified Problem Congestive heart failure, 428.0 Ac tive unspecified Problem Insomnia, unspecified G47.00 Active Problem Hypothyroidism, unspecified E03.9 Active Problem 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 Status: former smoker February 23, 2016 Marital Status: . February 23, 2016 Caffeine intake? . Status: Yes, What type: Coffee, Soft Drinks, February 23, 2016 1 cup a day New since last visit: none. February 23, 2016 Exercise . Status: Yes, Type: walking, biking [place] 2015 Alcohol Use: . Status: No February 23, 2016 Travel outside [place]: no. February 23, 2016 Occup. exposure: none. February 23, 2016 Occupation: unemployed. February 23, 2016 Summary Purpose eClinicalWorks Submission
--- OUTSIDE RECORDS SUMMARY | 2020-03-09 16:28 | XMS REPORT ---
:1939 Author Organization eClinicalWorks Care Team Providers Name Role Phone Melissa Salmon Provider Role Unavailable Encounters Encounter Location Date Unknown [place] [employer] Aug 12, Unknown [place] [employer] January 29, 2016 Unknown [place] [employer] Dec 19, PT/INR 3.0 [place] [employer] Dec 19, 015 Unknown [place] [employer] March 23, 2015 Problems Problem Type Condition [...] Exercise . Status: Yes, Type: walking, biking [facility] 2015 Alcohol Use: . Status: No January 11, 2016 Travel outside [place]: no. January 11, 2016 Occup. exposure: none. January 11, 2016 Occupation: unemployed. January 11, 2016 Summary Purpose eClinicalWorks Submission
--- OUTSIDE RECORDS SUMMARY | 2020-03-09 16:28 | XMS REPORT ---
:1939 [facility] Providers Name Role Phone Melissa Salmon Provider Role Unavailable Encounters Encounter Location Date Unknown [place] [employer] Assistant Aug 12, Unknown [place] [employer] January 29, 2016 Unknown [place] [employer] March 11, 2 016 Unknown [place] [employer] April 15, 2016 Unknown [place] [employer] Dec 19, 2 015 PT/INR 3.0 [place] [employer] Dec 19, 2 015 Unknown [place] [employer] March 23, 2015 Unknown [place] [employer] April 15, 2016 Other [place] [employer] Sep 09, 2 016 Problems Problem Type Condition ICD-9 Code Onset Dates Condition Statu s Problem Other specified cardiac 427.89 Acti ve dysrhythmias Problem Palpitations 785.1 Active Problem Atrial fibrillation 427.31 Active Problem Personal history of transient V12.54 Active ischemic attack [TIA], and cerebral infarction without residual deficits Problem Transient cerebral ischemic G45.9 Active attack, unspecified Problem Palpitations R00.2 Active Problem Bradycardia, unspecified R00.1 Act adrienne Problem Personal history of transient Z86.73 Active ischemic attack (TIA), and cerebral infarction without residual deficits Problem History of falling Z91.81 Active Problem Abnormal electrocardiogram [ECG] R94.31 Active [EKG] Problem Morbid (severe) obesity due to E66.01 Active excess calories Problem Constipation, unspecified K59.00 Ac tive Problem Major depressive disorder, F32.9 A ctive single episode, unspecified Problem Arthropathy, unspecified M12.9 Act adrienne Problem Chronic kidney disease, N18.9 Acti ve unspecified Problem Insomnia, unspecified G47.00 Active Problem Shortness of breath R06.02 Active Problem Chest pain, unspecified R07.9 Acti ve Problem 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 Problem Essential (primary) hypertension I10 Active Problem Hypothyroidism, unspecified E03.9 Active Problem Hyperlipidemia, unspecified E78.5 Active Problem Other and unspecified 272.4 Active hyperlipidemia Problem Unspecified hypothyroidism 244.9 A ctive Problem Chronic kidney disease, Stage 585.3 Active III (moderate) Problem Congestive heart failure, 428.0 Ac tive unspecified Problem Insomnia, unspecified 780.52 Active Problem Mitral valve disorders 424.0 Activ e Problem Hypertension essential benign 401.1 Active Problem Unspecified constipation 564.00 Act adrienne Problem Obesity, unspecified 278.00 Active Problem Other malaise and fatigue 780.79 Ac tive Problem Nonrheumatic mitral (valve) I34.0 Active insufficiency Problem Occlusion and stenosis of 433.10 Ac [...] kidney disease Problem Frequency of micturition R35.0 Act adrienne Problem Female genuine stress N39.3 Active incontinence Problem Encounter for screening for Z13.1 Active diabetes mellitus Problem Unspecified arthropathy, site 716.90 Active unspecified Problem Overactive bladder N32.81 Active Problem Morbid obesity 278.01 Active Problem Anxiety disorder, unspecified F41.9 Active Problem Nonspecific abnormal 794.31 Active electrocardiogram (ECG) (EKG) Problem Encounter for routine Z01.419 Active gynecological examination Problem Chest pain, unspecified 786.50 Acti ve Problem Urinary tract infection, site N39.0 Active not specified Problem Shortness of breath 786.05 Active Problem Upper respiratory tract 478.8 Acti ve hypersensitivity reaction, site unspecified Problem Unspecified transient cerebral 435.9 Active ischemia Problem Personal history of fall V15.88 Act adrienne Problem Acute upper respiratory 465.9 Acti ve infections of unspecified site Problem Depressive disorder, not 311 Act adrienne elsewhere classified Problem 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 Status: former smoker Aug 01, 2016 Marital Status: . Aug 01, 2016 Caffeine intake? . Status: Yes, What type: Coffee, Soft Drinks, Aug 01, 2016 1 cup a day New since last visit: none. Aug 01, 2016 Exercise . Status: Yes, Type: walking, biking [place] 2015 Alcohol Use: . Status: No Aug 01, 2016 Travel outside [place]: no. Aug 01, 2016 Occup. exposure: none. Aug 01, 2016 Occupation: unemployed. Aug 01, 2016 Summary Purpose eClinicalWorks Submission
--- OUTSIDE RECORDS SUMMARY | 2020-03-09 16:28 | XMS REPORT ---
[...] Congestive heart failure, 428.0 Ac tive unspecified Assessment Hypertensive heart and chronic I13.0 [...] Start Date End Date Status Dosage Edarbyclor [facility] [address] 40-25 MG Orally January 02, Active 1 tablet -30 Once a day 2016 Results No Known Results Summary Purpose eClinicalWorks Submission
--- OUTSIDE RECORDS SUMMARY | 2020-03-09 16:28 | XMS REPORT ---
:1939 Author Organization eClinicalWorks Care Team Providers Name Role Phone Bennett Salmon Provider Role Unavailable Encounters Encounter Location Date Unknown [place] [employer] Aug 12, Unknown [place] [employer] January 29, 2016 Unknown [place] [employer] March 11, Unknown [place] [employer] April 15, 2016 Unknown [place] [employer] Dec 19, PT/INR 3.0 [place] [employer] Dec 19, Unknown [place] [employer] March 23, 2015 Unknown [place] April 15, 2016 Problems Problem Type Condition [...] Date End Date Status Dosage Cipro MEDISPAN [address] 500 MG Orally April 15 1 tab [...]
--- OUTSIDE RECORDS SUMMARY | 2020-03-09 16:29 | XMS REPORT ---
:1939 [facility] Team Providers Name Role Phone Melissa [...] K59.00 Ac tive Problem Major depressive disorder, single F32.9 Active episode, unspecified Problem Arthropathy, unspecified M12.9 Act adrienne Problem Chronic kidney disease, unspecified N18.9 Active Problem Insomnia, unspecified G47.00 Active Problem Shortness of breath R06.02 Active Problem Chest pain, unspecified R07.9 Acti ve Problem 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 Problem Essential (primary) hypertension I10 Active Problem Hypothyroidism, unspecified E03.9 Active Problem Hyperlipidemia, unspecified E78.5 Active Problem Other and unspecified 272.4 Active hyperlipidemia Problem Unspecified hypothyroidism 244.9 A ctive Problem Chronic kidney disease, Stage III 585.3 [...] R35.0 Act adrienne Problem Female genuine stress incontinence N39.3 Active Problem Encounter for screening for Z13.1 Active diabetes mellitus Problem Unspecified arthropathy, site 716.90 Active unspecified Problem Overactive bladder N32.81 Active Problem Morbid obesity 278.01 Active Problem Anxiety disorder, unspecified F41.9 Active Problem Nonspecific abnormal 794.31 Active electrocardiogram (ECG) (EKG) Problem Encounter for routine gynecological Z01.419 Active examination Problem Chest pain, unspecified 786.50 Acti ve Problem Urinary tract infection, site not N39.0 [...]
--- OUTSIDE RECORDS SUMMARY | 2020-03-09 16:29 | XMS REPORT ---
:1939 Author Organization eClinicalWorks Care Team Providers Name Role Phone Melissa Salmon Provider Role Unavailable Encounters Encounter Location Date Unknown [place] Assistant Auditor Aug 12, 2 015 Unknown [place] Assistant Auditor January 29, 2016 Unknown [place] Assistant Auditor March 11, 2 016 Unknown [place] Assistant Auditor April 15, 2016 Unknown [place] Assistant Auditor Dec 19, 2 015 PT/INR 3.0 [place] Assistant Auditor Dec 19, 2 015 Unknown [place] Assistant Auditor March 23, 2015 Unknown [place] Assistant Auditor Dec 20, 2 017 Unknown [place] [employer] Auditor April 15, 2016 Other [place] Assistant Auditor Sep 09, 2 016 Problems Problem Type [...] Start End Status Dosa ge Date Date Tikosyn MEDISPAN [id number] 500 Inactive TAKE ONE CAPSULE BY MOUTH TWICE A DAY Dofetilide MEDISPAN [address]-96 500 MCG Orally Dec 20, Active 1 [...] Exercise . Status: Yes, Type: walking, biking [place] 2015 Alcohol Use: . Status: No Sep 27, 2016 Travel outside [place]: no. Sep 27, 2016 Occup. exposure: none. Sep 27, 2016 Occupation: unemployed. Sep 27, 2016 Summary Purpose eClinicalWorks Submission
--- OUTSIDE RECORDS SUMMARY | 2020-03-09 16:29 | XMS REPORT ---
:1939 [facility] Team Providers Name Role [...] Date End Date Status Dosage Edarbyclor [facility] [address] 40-25 MG Orally January 17, Active 1 tablet -30 Once a day 2016 Results No Known Results Summary Purpose eClinicalWorks Submission
--- OUTSIDE RECORDS SUMMARY | 2020-03-09 16:30 | XMS REPORT ---
:1940 Author Organization [facility] t Address [address] [place] [address] Care Team Providers Name Role Phone HANDY Attending Clinician Unavailable Michelle Begum Attending Clinician Michelle Begum Admitting Clinician Problems Condition Condition Condition Status Onset Resolution Last Treating Co mments Source Name Details Category Date Date Treatment Clinician Date History of History of Problem Resolve [facility] angina angina d ity of pectoris pectoris [place] [facility] History of History of Problem Resolve Univers hypothyroi hypothyroi d it y of dism dism [place] [facility] History of History of Problem Resolve [facility] 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 [place] ans History of History of Problem Resolve Univers mitral mitral d ity of valve valve [place] prolapse prolapse Physic i ans Renal Renal Problem Active Univers disease disease ity of [place] [facility]ici ans Anxiety Anxiety Problem Active Univers disorder, disorder, [place] of [place]specif[place] type d type Physici ans Moderate Moderate Problem Active Unive rs obstructiv obstructiv it y of e sleep e sleep [place] apnea apnea Physici ans Muscle Muscle Problem Active Univers cramp cramp ity of [place] [facility] ans Atrial Atrial Problem Active Univers fibrillati fibrillati it y of on on [place] [facility] Morbid Morbid Problem Active Univers obesity obesity ity of [place] [facility] Depression Depression Problem Active U nivers screen screen ity of [place] Physici ans Cerebral Cerebral Problem Active Unive rs infarction infarction it y of [place] [facility]ici ans Essential Essential Problem Active Uni vers hypertensi hypertensi it y of on on [place] [facility] ans Sleep Sleep Problem Active Univers apnea apnea ity of [place] [facility] ans Allergies, Adverse Reactions, Alerts This patient has no known allergies or adverse reactions. Family History Family Member Diagnosis Comments Start Date Stop Date Source Mother Family history of [facility] [place] pancreatic cancer Physici ans Father Family history of [facility] [place] cardiac disorder Physicia ns Social History Smoking Status Start Date Stop Date Source Former smoker [facility] Medications Ordered Filled Start Stop Current Ordering Indication Dosage Frequency Signature Comments Components Source Medication Medication Date Date Medication? Clinician (SIG) Name Name Atenolol 50 Atenolol 50 2017-10 Yes .5 QD TAKE 0.5 Univers MG Oral MG Oral 0-17 TABLET ity of Tablet Tablet 00:00: DAILY [place] 00 Physici ans Methocarbam Methocarbam 2017-10 Yes 1 Q0.5D TAKE 1 Univers ol 500 MG ol 500 MG 0-17 TABLET ity of Oral Tablet Oral Tablet 00:00: TWICE [place] 00 DAILY Physici ans Symbicort Symbicort 2017-10 Yes USE U nivers 160-4.5 160-4.5 0-17 DIRECTED. ity of MCG/ACT MCG/ACT 00:00: [place] Inhalation Inhalation 00 Phy sici Aerosol Aerosol ans Levothyroxi Levothyroxi 2017-10 Yes 1 QD TAKE 1 Univers ne Sodium ne Sodium 0-17 TABLET ity of 100 MCG 100 MCG 00:00: DAILY. [place] Oral Tablet Oral Tablet 00 P hysici ans hydrALAZINE hydrALAZINE 2017-10 Yes Univers HCl - 10 MG HCl - 10 MG 0-17 i ty of Oral Tablet Oral Tablet 00:00: [place] 00 Physici ans Omeprazole Omeprazole 2017-10 Yes QD TAKE 1 Univers 20 MG Oral 20 MG Oral 0-17 CAPSULE ity of Capsule Capsule 00:00: DAILY [place] Delayed Delayed 00 EVERY Physici Release Release MORNING ans BEFORE BREAKFAST. Aspirin 81 Aspirin 81 2017-10 Yes 1 QD TAKE 1 Univers MG Oral MG Oral 0-17 TABLET ity of Tablet Tablet 00:00: DAILY. [place] Delayed Delayed 00 Physici Release Release ans Montelukast Montelukast 2017-10 Yes 1 QD TAKE 1 Univers Sodium 10 Sodium 10 0-17 TABLET ity of MG Oral MG Oral 00:00: DAILY. [place] Tablet Tablet 00 Physici ans Eliquis 5 Eliquis 5 2016-10 Yes MUNACHI Take 1 Univers MG Oral MG Oral 0-17 [place] tablet by it y of Tablet Tablet 00:00: N.P. mouth two [place] 00 times Physici daily ans Edarbyclor Edarbyclor Yes MUNACHI 1 QD TAKE 1 Univers 40-25 MG 40-25 MG 4-20 [place] TABLET BY ity of Oral Tablet Oral Tablet 00:00: N.P. MOUTH ONCE [place] 00 DAILY Physici ans Pravastatin Pravastatin Yes LEO 1 QD TAKE 1 Univers Sodium 40 Sodium 40 7-31 [place] TABLET i ty of MG Oral MG Oral 00:00: N.P. DAILY. [place] Tablet Tablet 00 Physici ans Viteyes Viteyes Yes LEO 1 QD TAKE 1 Un teresa Complete Complete 3-17 [place] CAPSULE it y of Oral Oral 00:00: N.P. DAILY. [place] Capsule Capsule 00 Physici ans Liothyronin Liothyronin Yes LEO 1 QD TAKE 1 Univers e Sodium 5 e Sodium 5 3-17 [place] TABLET ity of MCG Oral MCG Oral 00:00: N.P. DAILY. [place] as Tablet Tablet 00 Physici ans Doxazosin Doxazosin Yes LEO 1 QD TAKE 1 Univers Mesylate 4 Mesylate 4 3-17 [place] TABLET ity of MG Oral MG Oral 00:00: N.P. DAILY. [place] Tablet Tablet 00 Physici ans Dofetilide Dofetilide Yes [facility] 1 capsule Univers 500 MCG 500 MCG [place] daily ity of Oral Oral N.P. [place] Capsule Capsule Physici ans Vitamin D-3 Vitamin D-3 Yes 1 tablet Univers CAPS CAPS daily ity of [place] Physici ans Vascepa 1 Vascepa 1 Yes LEO 1 capsule Univers GM Oral GM Oral [place] daily ity of Capsule Capsule N.P. [place] Physici ans Vital Signs Vital Name Observation Time Observation Value Comments Source BP Systolic 2019-07-23 152 mm[Hg] Location: [facility] 11:51:00 Position: [place] Physician s Sitting BP Diastolic 2019-07-23 76 mm[Hg] Location: [facility] 11:51:00 Position: [place] Physician s Sitting Height 2019-07-23 62 [in_us] [facility] 11:51:00 [place] Physician s Weight 2019-07-23 248.5 [lb_av] [facility] 11:51:00 [place] Physician s Body Mass Index 2019-07-23 45.45 kg/m2 University o f Calculated 11:51:00 [place] Physician s Heart Rate 2019-07-23 66 /min Location: [facility] 11:51:00 Brachial [place] Physician s Artery; Procedures Procedure Date / Time Performing Clinician Source Performed [facility] History of Appendectomy [facility] Physicians History of Bladder Surgery Unive [facility] Physicians History of Neuroplasty [facility] Decompression Median Nerve Physi cians At Carpal Tunnel History of Esophagogastric [facility] Fundoplasty [place] [facility] Fundoplication History of Knee Surgery [facility] Right Physicians Plan of Care Planned Activity Planned Date Details Comments Source Future Appointment 2020-07-17 DAMIÁN BAILEY [facility] 11:30:00 Yulia MURRELL Encounters Start End Encounter Admission Attending Care Care Encounter Source Date/Time Date/Time Type Type Clinicians Facility Department ID 2019-07-23 2019-07-23 Appoint[facility] - [id number] Univers 11:30:00 11:30:00 t; LEO MURRELL NP [place] ity [facility] Phys[facility] ans 2018-08-08 2018-08-08 Appointmen BLUE MURRELL UTP [id number] Univers 11:30:00 11:30:00 t; LEO MURRELL NP [facility] of [place], [place] [facility] Physici ans 2017-08-08 2017-08-08 Appointmen BLUE MURRELL UTP [id number] Univers 11:30:00 11:30:00 t; LEO MURRELL [facility] [place] [facility] Physici ans 2017-06-16 2017-06-16 Outpatient Cardiolog Cardiology [id number] [place] 12:43:00 12:43:00 y Consultants Ca rdiol Consultan ogy ts Consult gabriel 2017-06-08 2017-06-08 Outpatient Cardiolog Cardiology [id number] [place] 15:30:00 15:30:00 y Consultants Ca rdiol Consultan ogy ts Consult gabriel 2017-02-03 2017-02-03 Outpatient Cardiolog Cardiology [id number] [place] 11:44:00 11:44:00 y Consultants Ca rdiol Consultan ogy ts Consult gabriel 2017-01-17 2017-01-17 Outpatient Cardiolog Cardiology [id number] [place] 09:18:00 09:18:00 y Consultants Ca rdiol Consultan ogy ts Consult gabriel 2016-12-20 2016-12-20 Outpatient [facility] [id number] [place] 09:57:00 09:57:00 Cardiolog Cardiology C ardiol y Consultants ogy Consultan Consul t ghada rios 2016-09-09 2016-09-09 Outpatient [facility] [id number] [place] 15:06:00 15:06:00 Cardiolog Cardiology C ardiol y Consultants ogy Consultan Consul t ghdaa rios 2016-04-15 2016-04-15 Outpatient [facility] [id number] [place] 14:19:00 14:19:00 Cardiolog Cardiology C ardiol y Consultants ogy Consultan Consul t gabriel 2016-04-15 2016-04-15 Outpatient [facility] [id number] [place] 14:11:00 14:11:00 Cardiolog Cardiology C ardiol y Consultants ogy Consultan Consul t ghada rios 2016-03-11 2016-03-11 Outpatient [facility] [id number] [place] 13:22:00 13:22:00 Cardiolog Cardiology C ardiol y Consultants ogy Consultan Consul t ghada rios 2016-01-29 2016-01-29 Outpatient [facility] [id number] [place] 14:05:00 14:05:00 Cardiolog Cardiology C ardiol y Consultants ogy Consultan Consul t ts gabriel 2014-11-23 2014-11-26 Outpatient [facility]AR[facility] Beg[facility] [id number] 22:23:00 16:46:00 Serina Martinez Results This patient has no known results.
--- NOTE | 2020-03-09 17:29 | RAD REPORT ---
EXAM DESCRIPTION: RAD - Chest Single View - 03/09/2020 5:13 pm CLINICAL HISTORY: DYSPNEA Chest pain. COMPARISON: Chest Single View dated 12/27/2019; Chest Pa And Lat (2 Views) dated 09/24/2019; Chest Sing le View dated 11/21/2018; CHEST SINGLE VIEW dated 10/30/2008 FINDINGS: Portable technique limits examination quality. The lungs are grossly clear. The heart is mildly enlarged in size. No displaced fractures. IMPRESSION: No acute intrathoracic process suspected.
[2020-03-09 17:32] LABS: Basophils % 0.6 % (0-1.3); Hematocrit 37.8 % (36.0-45.0); Lymphocytes % 16.9 % (15.3-44.8); MPV 7.7 fL (7.6-11.3); RBC Red Blood Cell Count 4.23 M/uL (3.86-4.86)
[2020-03-09 17:43] LABS: ALT/SGPT 26 U/L (12-78); AST/SGOT 20 U/L (15-37); Albumin 3.6 g/dL (3.4-5.0); Alkaline Phosphatase 60 U/L (45-117); BUN Blood Urea Nitrogen 12 mg/dL (7-18); Bicarbonate 28 mmol/L (21-32); Bilirubin Direct 0.1 mg/dL (0-0.2); Bilirubin Total 0.3 mg/dL (0.2-1.0); Creatine Phosphokinase 109 U/L (26-192); Glucose Level 136 mg/dL (74-106); NT PRO-BNP 338 pg/mL (<450); Potassium 3.4 mmol/L (3.5-5.1); Protein, Total 7.5 g/dL (6.4-8.2); Sodium Level 131 mmol/L (136-145); Troponin (Emerg Dept Use Only) < 0.02 ng/mL (0.0-0.045)
[2020-03-09] MEDS ORDERED: METHYLPREDNISOLONE 125 MG INJ ONE (17:51)
--- NOTE | 2020-03-09 18:11 | ER ---
Nurse's Notes [facility] Name: Kristal You Age: 79 yrs Sex: Female : 1940 Arrival Date: 03/09/2020 Time: 16:28 Bed 24 Private MD: Judd Gurrola Diagnosis: Moderate persistent asthma with (acute) exacerbation;Dyspnea, unspecified Presentation: 03/09 16:29 Chief complaint: Patient states: SOB, fatigue, "I feel like my heart is pounding bit sv it's not." x 2 days. Coronavirus screen: Surgical mask placed on patient. Patient moved to private room, placed in contact and droplet isolation with eye protection until further assessment. Patient denies a cough. Patient reports shortness of breath or difficulty breathing. Patient denies measured and/or subjective temperature greater than 100.4F prior to today's visit. Patient denies travel on a cruise ship or to a country the [facility] currently lists as an affected area. Patient denies contact with known and/or suspected case of COVID-19. Ebola Screen: No symptoms or risks identified at this time. Risk Assessment: Do you want to hurt yourself or someone else? Patient reports no desire to harm self or others. 16:29 Method Of Arrival: Wheelchair sv 16:34 Onset of symptoms was March 07, 2020. sv 16:34 Acuity: LUCINA 2 sv 16:35 Initial Sepsis Screen: Does the patient meet any 2 criteria? No. Patient's initial sv sepsis screen is negative. Does the patient have a suspected source of infection? No. Patient's initial sepsis screen is negative. Triage Assessment: 16:34 General: Appears in no apparent distress. uncomfortable, Behavior is calm, cooperative, sv appropriate for age. Pain: Denies pain. Neuro: Level of Consciousness is awake, alert, obeys commands. Respiratory: Reports shortness of breath on exertion Respiratory effort is even, unlabored. 03/10 00:08 Respiratory: Onset: The symptoms/episode began/occurred yesterday. ll1 Historical: - Allergies: 03/09 16:31 namutol; sv - PMHx: 16:31 Asthma; Atrial Fib; CVA; Hypertension; Hypothyroidism; UTI; sv - PSHx: 16:31 right knee replacement; Appendectomy; Cholecystectomy; Hysterectomy; Bladder sv suspension; rectocele/cystcele repair; juan m fundiplication; left shoulder surgery; Carpal Tunnel Repair; - Immunization history:: Flu vaccine is up to date. - Social history:: Smoking status: Patient denies any tobacco usage or history of. Screenin:12 Abuse screen: Denies threats or abuse. Nutritional screening: No deficits noted. ll1 Tuberculosis screening: No symptoms or risk factors identified. Fall Risk None identified. IV access (20 points). Ambulatory Aid- Crutches/Cane/Walker (15 pts). Gait- Impaired (20 pts.). Total Hensley Fall Scale indicates High Risk Score (45 or more points). Fall prevention measures have been instituted. Side Rails Up X 2 Frequent Obs/Assessments Occuring As available patient and family educated on Fall Prevention Program and Strategies. Assessment: 17:13 Cardiovascular: Reports fatigue, palpitations, shortness of breath, Heart tones S1 S2 ll1 Capillary refill < 3 seconds Clubbing of nail beds is absent JVD is absent Patient's skin is warm and dry. Rhythm is regular. Respiratory: Reports shortness of breath on exertion labored breathing Airway is patent Trachea midline Respiratory effort is even, labored, Respiratory pattern is regular, symmetrical, Breath sounds with wheezes bilaterally. the patient has mild shortness of breath. GI: No deficits noted. 18:15 Reassessment: Patient appears in no apparent distress at this time. No changes from ll1 previously documented assessment. Patient and/or family updated on plan of care and expected duration. Pain level reassessed. Patient is alert, oriented x 3, equal unlabored respirations, skin warm/dry/pink. 19:15 Reassessment: Patient appears in no apparent distress at this time. No changes from ll1 previously documented assessment. Patient and/or family updated on plan of care and expected duration. Pain level reassessed. Patient is alert, oriented x 3, equal unlabored respirations, skin warm/dry/pink. 20:15 Reassessment: Patient appears in no apparent distress at this time. No changes from ll1 previously documented assessment. Patient and/or family updated on plan of care and expected duration. Pain level reassessed. Patient is alert, oriented x 3, equal unlabored respirations, skin warm/dry/pink. 21:15 Reassessment: Patient appears in no apparent distress at this time. No changes from ll1 previously documented assessment. Patient and/or family updated on plan of care and expected duration. Pain level reassessed. Patient is alert, oriented x 3, equal unlabored respirations, skin warm/dry/pink. 22:15 Reassessment: Patient appears in no apparent distress at this time. No changes from ll1 previously documented assessment. Patient and/or family updated on plan of care and expected duration. Pain level reassessed. Patient is alert, oriented x 3, equal unlabored respirations, skin warm/dry/pink. 23:15 Reassessment: Patient appears in no apparent distress at this time. No changes from ll1 previously documented assessment. Patient and/or family updated on plan of care and expected duration. Pain level reassessed. Patient is alert, oriented x 3, equal unlabored respirations, skin warm/dry/pink. 03/10 01:56 Reassessment: Patient appears in no apparent distress at this time. Patient is alert, bb3 oriented x 3, equal unlabored respirations, skin warm/dry/pink. Patient denies pain at this time. Patient states feeling better. Patient states symptoms have improved. General: Appears in no apparent distress. comfortable, Behavior is calm, cooperative, appropriate for age. Vital Signs: 03/09 16:32 BP 190 / 68; Pulse 80; Resp 20; Temp 98(TE); Pulse Ox 96% ; Height 5 ft. 2 in. (157.48 sv cm); 18:09 BP 168 / 71; Pulse 65; Resp 20; Pulse Ox 98% on R/A; ll1 20:00 BP 184 / 94; Pulse 68; Resp 20; Pulse Ox 99% on R/A; ll1 21:00 BP 173 / 70; Pulse 65; Resp 20; Pulse Ox 96% on R/A; ll1 22:00 BP 170 / 86; Pulse 70; Resp 19; Pulse Ox 97% ; ll1 23:42 BP 168 / 79; Pulse 72; Resp 18; Pulse Ox 96% ; ll1 03/10 01:55 BP 148 / 49; Pulse 75; Resp 20; Pulse Ox 96% ; Pain 0/10; bb3 ED Course: 03/09 16:28 Patient arrived in ED. mr 16:28 Judd Gurrola MD is Private Physician. mr 16:32 Arm band placed on. sv 16:34 Triage completed. sv 16:35 Roger Samuels MD is Attending Physician. rn 16:37 Mary Jo Velazquez, KARIE is Primary Nurse. ll1 17:05 Inserted saline lock: 20 gauge in left antecubital area, using aseptic technique. Blood ll1 collected. 17:13 XRAY CXR (1 view) In Process Unspecified. EDMS 17:14 Patient has correct armband on for positive identification. Bed in low position. Call ll1 light in reach. Side rails up X 1. compliance monitor on. Pulse ox on. NIBP on. 18:10 Judd Gurrola MD is Hospitalizing Provider. rn 03/10 00:11 No provider procedures requiring assistance completed. ll1 00:11 Patient admitted, IV remains in place. ll1 Administered Medications: 03/09 18:01 Drug: SOLU-Medrol 125 mg Route: IVP; Site: left antecubital; ll1 19:51 Follow up: Response: No adverse reaction; RASS: Alert and Calm (0) ll1 Outcome: 18:11 Decision to Hospitalize by Provider. rn 03/10 01:50 Admitted to Med/surg accompanied by nurse, via wheelchair. bb3 Condition: improved Discharge instructions given to Instructed on the need for admit. 02:14 Patient left the ED. lp1 Signatures: Dispatcher [employer] EDMS Madeline Canales RN KARIE eason McCarolyn mr Roger Samuels MD MD rn Pena, Laura, RN RN lp1 Chacha Dailey bb3 Mary Jo Velazquez, RN RN ll1 Corrections: (The following items were deleted from the chart) 03/09 16:34 16:29 Chief complaint: Patient states: SOB, "I feel like my heart is pounding bit it's sv not." x 2 days. sv 16:34 16:32 Pulse 80bpm; Resp 20bpm; Pulse Ox 96%; Temp 98F Temporal; Height 5 ft. 2 in.; sv sv
--- NOTE | 2020-03-09 18:12 | EDPHYS ---
Physician Documentation [facility] Name: Kristal You Age: 79 yrs Sex: Female : 1940 Arrival Date: 03/09/2020 Time: 16:28 Bed 24 Private MD: Judd Gurrola ED Physician Roger Samuels HPI: 03/09 17:13 This 79 yrs old Female presents to ER via Wheelchair with complaints of rn Shortness Of Breath. 17:13 The patient has shortness of breath with light activity. Onset: The symptoms/episode rn began/occurred 2 day(s) ago. The patient's shortness of breath is aggravated by exertion, light activity. Severity of symptoms: At their worst the symptoms were moderate in the emergency department the symptoms are unchanged. The patient has experienced similar episodes in the past. The patient has not recently seen a physician. Reports sent by Dr. Gurrola for evaluation of difficulty breathing for 2 days, no fever, reports feels winded with exertion and even talking. Feels heart pounding but not fast like before with afib. NO sick contacts. . Historical: - Allergies: 16:31 namutol; sv - PMHx: 16:31 Asthma; Atrial Fib; CVA; Hypertension; Hypothyroidism; UTI; sv - PSHx: 16:31 right knee replacement; Appendectomy; Cholecystectomy; Hysterectomy; Bladder sv suspension; rectocele/cystcele repair; juan m fundiplication; left shoulder surgery; Carpal Tunnel Repair; - Immunization history:: Flu vaccine is up to date. - Social history:: Smoking status: Patient denies any tobacco usage or history of. ROS: 17:16 Constitutional: Negative for fever, chills, and weight loss, Eyes: Negative for injury, rn pain, redness, and discharge, Neck: Negative for injury, pain, and swelling, Cardiovascular: Negative for chest pain, palpitations, and edema, Respiratory: + sob and wheezing Abdomen/GI: Negative for abdominal pain, nausea, vomiting, diarrhea, and constipation, MS/Extremity: Negative for injury and deformity, Skin: Negative for injury, rash, and discoloration, Neuro: Negative for headache, numbness, tingling, and seizure. Exam: 17:16 Constitutional: This is a well developed, well nourished patient who is awake, alert, rn + mild tachypnea Head/Face: Normocephalic, atraumatic. ENT: No stridor Cardiovascular: Irregular rhythm, regular rate. Respiratory: + mild tachypnea, no retractions, + diffuse wheezing. Abdomen/GI: soft, non-tender MS/ Extremity: Pulses equal, no cyanosis. + 1+ pitting edema bilateral lower ext. Neuro: Awake and alert, GCS 15, oriented to person, place, time, and situation. Cranial nerves II-XII grossly intact. Motor strength 5/5 in all extremities. Sensory grossly intact. 18:29 ECG was reviewed by the Attending Physician. rn Vital Signs: 16:32 BP 190 / 68; Pulse 80; Resp 20; Temp 98(TE); Pulse Ox 96% ; Height 5 ft. 2 in. (157.48 sv cm); 18:09 BP 168 / 71; Pulse 65; Resp 20; Pulse Ox 98% on R/A; ll1 20:00 BP 184 / 94; Pulse 68; Resp 20; Pulse Ox 99% on R/A; ll1 21:00 BP 173 / 70; Pulse 65; Resp 20; Pulse Ox 96% on R/A; ll1 22:00 BP 170 / 86; Pulse 70; Resp 19; Pulse Ox 97% ; ll1 23:42 BP 168 / 79; Pulse 72; Resp 18; Pulse Ox 96% ; ll1 03/10 01:55 BP 148 / 49; Pulse 75; Resp 20; Pulse Ox 96% ; Pain 0/10; bb3 MDM: 03/09 16:35 Patient medically screened. rn 18:08 Differential diagnosis: asthma, Bronchitis Chronic Obstructive Pulmonary Disease rn Myocardial Infarction pneumonia, Pneumothorax pulmonary edema, reactive airway disease. Data reviewed: vital signs, nurses notes, lab test result(s), EKG, radiologic studies, plain films, and as a result, I will admit patient. Test interpretation: by ED physician or midlevel provider: ECG, plain radiologic studies, CXR neg for acute pneumonia/pneumothorax/pulmonary edema. Counseling: I had a detailed discussion with the patient and/or guardian regarding: the historical points, exam findings, and any diagnostic results supporting the discharge/admit diagnosis, lab results, radiology results, the need for further work-up and treatment in the hospital. Response to treatment: the patient's symptoms have mildly improved after treatment, and as a result, I will admit patient. Admission orders: after a detailed discussion of the patient's condition and case, the admit orders are written by me. ED course: Consulted with Dr. Gurrola, reports hx of asthma, will admit for asthma exacerbation, COVID-19 test sent.. 03/09 16:54 Order name: Blood Culture Adult (2) rn 03/09 16:54 Order name: BMP; Complete Time: 18:05 rn 03/09 16:54 Order name: CBC with Diff; Complete Time: 18:05 03/09 16:54 Order name: CPK; Complete Time: 18:05 rn 03/09 16:54 Order name: Hepatic Function; Complete Time: 18:05 rn 03/09 16:54 Order name: NT PRO-BNP; Complete Time: 18:05 03/09 16:54 Order name: XRAY CXR (1 view); Complete Time: 17:27 rn 03/09 16:54 Order name: Troponin (emerg Dept Use Only); Complete Time: 18:05 rn 03/09 16:54 Order name: EKG; Complete Time: 16:55 rn 03/09 16:54 Order name: Cardiac monitoring; Complete Time: 19:52 03/09 16:54 Order name: COVID-19 rn 03/09 16:54 Order name: Flu; Complete Time: 18:05 rn 03/10 00:31 Order name: Troponin I [facility] 03/09 16:54 Order name: EKG - Nurse/Tech; Complete Time: 19:51 rn 03/09 16:54 Order name: IV Saline Lock; Complete Time: 17:07 rn 03/09 16:54 Order name: Labs collected and sent; Complete Time: 17:07 03/09 16:54 Order name: O2 Per Protocol; Complete Time: 17:07 03/09 16:54 Order name: O2 Sat Monitoring; Complete Time: 17:08 03/09 16:54 Order name: Document PUI#; Complete Time: 23:32 03/09 16:54 Order name: Droplet/Contact Precautions; Complete Time: 17:07 03/09 16:54 Order name: Labs collected and sent; Complete Time: 17:07 03/09 16:54 Order name: Notify Health Dept [phone]/ ; Complete Time: 23:32 rn 03/09 16:54 Order name: O2 Per Protocol; Complete Time: 17:07 rn 03/09 19:01 Order name: Misc. Order: Pt has own inhaler, can take 2 puffs of albuterol; Complete rn Time: 19:51 EC:29 Rate is 65 beats/min. Rhythm is regular. QRS [place] is Normal. GA interval is prolonged rn at 234 msec. QRS interval is normal. QT interval is normal. No Q waves. T waves are Normal. No ST changes noted. Clinical impression: 1st degree heart block. Interpreted by me. Reviewed by me. Administered Medications: 18:01 Drug: SOLU-Medrol 125 mg Route: IVP; Site: left antecubital; ll1 19:51 Follow up: Response: No adverse reaction; RASS: Alert and Calm (0) ll1 Disposition: 03/09/20 18:11 Hospitalization ordered by Judd Gurrola for Inpatient Admission. Preliminary diagnosis are Moderate persistent asthma with (acute) exacerbation, Dyspnea, unspecified. - Bed requested for Telemetry/MedSurg (Inpatient). - Status is Inpatient Admission. lp1 - Condition is Stable. - Problem is an acute exacerbation. - Symptoms have improved. Signatures: Dispatcher [employer] EDMadeline Jenkins RN RN sv Nieto, Roman, MD MD rn Pena, Laura, RN RN lp1 Kesha Sparks RN RN cg Borel, Brandy bb3 Mary Jo Velazquez RN RN ll1 Corrections: (The following items were deleted from the chart) 21:50 18:11 Hospitalization Ordered by Judd Gurrola MD for Inpatient Admission. Preliminary cg diagnosis is Moderate persistent asthma with (acute) exacerbation; Dyspnea, unspecified. Bed requested for Telemetry/MedSurg (Inpatient). Status is Inpatient Admission. Condition is Stable. Problem is an acute exacerbation. Symptoms have improved. rn 03/10 00:57 03/09 21:50 03/09/2020 18:11 Hospitalization Ordered by Judd Gurrola MD for Inpatient cg Admission. Preliminary diagnosis is Moderate persistent asthma with (acute) exacerbation; Dyspnea, unspecified. Bed requested for [facility] ER [facility]. Status is Inpatient Admission. Condition is Stable. Problem is an acute exacerbation. Symptoms have improved. cg 05/19 01:35 00:57 03/09/2020 18:11 Hospitalization Ordered by Judd Gurrola MD for Inpatient cg Admission. Preliminary diagnosis is Moderate persistent asthma with (acute) exacerbation; Dyspnea, unspecified. Bed requested for Telemetry/MedSurg (Inpatient). Status is Inpatient Admission. Condition is Stable. Problem is an acute exacerbation. Symptoms have improved. cg 01:57 01:35 03/09/2020 18:11 Hospitalization Ordered by Judd Gurrola MD for Inpatient bb3 Admission. Preliminary diagnosis is Moderate persistent asthma with (acute) exacerbation; Dyspnea, unspecified. Bed requested for Telemetry/MedSurg (Inpatient). Status is Inpatient Admission. Condition is Stable. Problem is an acute exacerbation. Symptoms have improved. cg 02:14 01:57 03/09/2020 18:11 Hospitalization Ordered by Judd Gurrola MD for Inpatient lp1 Admission. Preliminary diagnosis is Moderate persistent asthma with (acute) exacerbation; Dyspnea, unspecified. Bed requested for Telemetry/MedSurg (Inpatient). Status is Inpatient Admission. Condition is Stable. Problem is an acute exacerbation. Symptoms have improved. bb3
[2020-03-09] MEDS: APIXABAN 5 MG TABLET PO SCH (22:00)
[2020-03-09] MEDS: ALBUTEROL 2.5 MG/3 ML NEB SOL NEB SCH (23:18)
[2020-03-09] MEDS ORDERED: ONDANSETRON 4 MG/2 ML VIAL IV PRN (23:18)
[2020-03-09] MEDS: IPRATROPIUM BROM 0.5MG/2.5ML NEB SCH (23:18)
[2020-03-09] MEDS ORDERED: ACETAMINOPHEN 500 MG TAB PO PRN (23:18)
--- NOTE | 2020-03-10 02:34 | HP ---
Date of Admission: 03/09/2020 Chief Complaint: Shortness of breath. History Of Present Illness: This is an 79-year-old female patient with history of asthma, chronic diastolic congestive heart failure, atrial fibrillation, and multiple other comorbidities, called the office today complaining of shortness of breath and was asked to come to the emergency room. After she was evaluated, she was admitted to the hospital. She denies any fever or chills. No colored expectoration. No hemoptysis. No recent exposure to COVID-19 patient. No fall. No injury. Patient is also complaining of pain in her back and this location is in the left paralumbar region. No fall. No injury. Her pain gets worse with certain movement or change in position. No radiation of pain. When I saw her, she was in the emergency room sitting, not in any distress. Allergies: TO LETY INHIBITOR. Medications: List reviewed. Review of Systems: Musculoskeletal: As mentioned above. Respiratory: As mentioned above. All other systems reviewed and negative. Social History: Prior history of smoking, not at present time. Use of alcohol negative. Family History: Significant for father had heart disease, mother had pancreatic cancer, sister had pancreatic cancer. Past Surgical History: Cholecystectomy, appendectomy, rectocele repair, hysterectomy, bladder suspension, shoulder surgery, carpal tunnel surgery, and knee surgery. Past Medical History: Significant for stroke, allergic rhinitis, hypothyroidism, impaired fasting glucose, hypertension, hyperlipidemia, paroxysmal atrial fibrillation, hyponatremia, and asthma. Patient was given Symbicort inhaler in the past by Dr. Louis, and patient says she has not been using it lately because she needs a refill that she has requested from Dr. Louis's office. Physical Examination: General: Awake, alert, oriented, not in distress. HEENT: Head atraumatic, normocephalic. Conjunctivae nonerythematous. Sclerae white. Mouth, no thrush or edema noted. Ears/Nose, no mass, lesion, discharge noted. Neck: Supple. No JVD, lymph nodes, bruit, thyromegaly noted. Lungs: Bilateral scattered wheezing, not in any respiratory distress. Heart: Normal heart sounds, no murmur or gallop. Abdomen: Soft, bowel sounds normal. No guarding, rigidity, tenderness, mass, hepatosplenomegaly, distention, or bruit noted. Extremities: Trace leg edema. No calf tenderness. Skin: No rash, ulcer, cellulitis. Lymphatics: No lymph node enlargement in neck, supraclavicular, infraclavicular region. Neuro: No focal neurological deficit. Chest: Unremarkable. External Genitalia: Deferred. Rectal: Deferred. Laboratory Data: White count 5.7, hemoglobin 12.8. Sodium 131, potassium 3.4, chloride 96, bicarb 28, BUN 12, creatinine 1.17, glucose 136. Liver function tests unremarkable. Troponin less than 0.02. Chest x-ray, no acute cardiopulmonary changes. Impression: 1. Acute exacerbation of mild persistent asthma. 2. Congestive heart failure, chronic, diastolic. 3. Hypertension. 4. Paroxysmal atrial fibrillation. 5. Impaired fasting glucose. 6. Hypothyroidism. 7. Stroke. 8. Allergic rhinitis. 9. Hyperlipidemia. Plan: We will admit patient to the hospital for further evaluation and management of this problem. Patient is appropriate for inpatient and is expected to spend 2 midnights in the hospital. We will go ahead and give her IV steroid, nebulizer treatment, oxygen. Home medications will be continued as the patient requests. Eliquis will be started tonight. I will see her tomorrow for followup. I have ordered x-ray of the lumbar spine and thoracic spine. Details and plan of treatment were discussed with her. YOYL/JAMIL Voice ID: [id number]
[2020-03-10] MEDS: IPRATROPIUM BROM 0.5MG/2.5ML NEB SCH ×7 (03:15→23:45)
[2020-03-10] MEDS: ALBUTEROL 2.5 MG/3 ML NEB SOL NEB SCH ×7 (03:15→23:45)
[2020-03-10] MEDS: METHYLPREDNISOLONE 40 MG INJ IV SCH ×3 (03:45→17:06)
[2020-03-10 04:33] LABS: Potassium 3.4 mmol/L (3.5-5.1)
[2020-03-10 04:41] LABS: Absolute Lymphocytes (CBC) 0.9 K/uL (0.7-4.9); Basophils % 0.2 % (0-1.3); Hematocrit 40.1 % (36.0-45.0); Lymphocytes % 13.5 % (15.3-44.8); RBC Red Blood Cell Count 4.45 M/uL (3.86-4.86)
[2020-03-10 04:53] VITALS: BMI 46.3
[2020-03-10 05:13] LABS: Blood Morphology Comment NOT SEEN (NOT SEEN); Platelet Estimate ADEQ
--- NOTE | 2020-03-10 07:01 | EKG ---
Test Date: 2020-03-09 Test Time: 18:26:17 [employer]: NATALIA MEASUREMENT RESULTS: Intervals: Rate: 65 DC: 234 QRSD: 84 QT: 446 QTc: 463 [place]: P: 74 DC: 234 QRS: 47 T: 44 INTERPRETIVE STATEMENTS: Sinus rhythm with 1st degree AV block Otherwise normal ECG Compared to ECG 09/24/2019 18:18:55 First degree AV block now present Atrial fibrillation no longer present ST (T wave) deviation no longer present Prolonged QT interval no longer present Electronically Signed On 03-10-20 07:00:04 CDT by Evan Dunn
--- NOTE | 2020-03-10 07:42 | RAD REPORT ---
EXAM DESCRIPTION: RAD - Lumbar Spine 3 Views - 03/10/2020 12:53 am CLINICAL HISTORY: Back pain FINDINGS: Mild anterior subluxation of L5 on S1. Spondylolysis L5 Osteoporosis Mild spondylosis. No acute fracture or dislocation
--- NOTE | 2020-03-10 07:45 | RAD REPORT ---
EXAM DESCRIPTION: RAD - Thoracic Spine Ap/Lat - 03/10/2020 12:54 am CLINICAL HISTORY: Back pain FINDINGS: The alignment of the thoracic spine is satisfactory. No fracture is seen. No dislocation. Mild spondylosis mainly consisting small osteophytes. Osteoporosis
[2020-03-10] MEDS ORDERED: DOFETILIDE 500 MCG PO SCH (09:00)
[2020-03-10] MEDS ORDERED: CHLORTHALIDONE PO SCH (09:00)
[2020-03-10] MEDS ORDERED: HOME MED 1 EA UNK (Omeprazole [Omeprazole] 20 MG) PO SCH (09:00)
[2020-03-10] MEDS ORDERED: AZILSARTAN MED PO SCH (09:00)
[2020-03-10] MEDS: APIXABAN 5 MG TABLET PO SCH ×2 (09:38→20:23)
[2020-03-10] MEDS: LIOTHYRONINE SOD 5 MCG TAB PO SCH (09:39)
[2020-03-10] MEDS: cloNIDine HCL 0.1 MG TAB PO SCH ×2 (09:39→20:22)
[2020-03-10] MEDS: GABAPENTIN 100 MG CAP PO SCH ×3 (09:39→20:23)
[2020-03-10] MEDS: PANTOPRAZOLE 40MG TABLET PO SCH (09:39)
[2020-03-10] MEDS: HYDRALAZINE HCL 25 MG TABLET PO SCH ×3 (09:39→20:23)
[2020-03-10] MEDS: ICOSAPENT ETHYL 1 GM CAP PO SCH ×2 (09:40→20:25)
[2020-03-10] MEDS: DOXAZOSIN 4 MG TAB PO SCH (09:42)
[2020-03-10] MEDS: DOFETILIDE 500 MCG PO SCH ×2 (11:20→23:08)
[2020-03-10] MEDS: CHLORTHALIDONE 25 MG TAB PO SCH (11:21)
[2020-03-10] MEDS: VALSARTAN 80 MG TAB PO SCH (11:21)
[2020-03-10] MEDS: DULERA 200/5 (MOMETASONE/FORMOTEROL) INHALER IH SCH ×2 (11:24→20:25)
[2020-03-10] MEDS ORDERED: DOXAZOSIN 2 MG TAB ONE (20:07)
[2020-03-10 20:29] VITALS: O2SAT 95
[2020-03-10] MEDS ORDERED: ASPIRIN EC 81 MG TAB PO SCH (21:00)
[2020-03-10] MEDS ORDERED: atenoloL 25 MG TAB PO SCH (21:00)
[2020-03-10] MEDS ORDERED: ATORVASTATIN 10 MG TAB PO SCH (21:00)
[2020-03-10] MEDS ORDERED: HOME MED 1 EA UNK (Pravastatin Sodium [Pravastatin Sodium] 40 MG) PO SCH (21:00)
[2020-03-10] MEDS ORDERED: DOXAZOSIN 4 MG TAB PO SCH (21:00)
--- NOTE | 2020-03-10 23:09 | PN ---
Date of Progress Note: 03/10/2020 Subjective: Patient was seen this morning for followup. She was feeling better this morning compare d to yesterday. Objective: Vital Signs: Reviewed. HEENT: Unremarkable. Lungs: Bilateral good equal entry. Minimum wheezing noted in her lungs, better today than yesterday . Not in any respiratory distress. Cardiac: Heart sounds normal. Abdomen: Soft. Bowel sounds normal. No guarding, rigidity, tenderness, or distention. Extremities: Bilateral leg edema, unchanged from yesterday. Laboratory Data: White count 6.4, hemoglobin 13.6, platelets 160. Sodium 131, potassium 3.4, chlori de 95, bicarb 26, BUN 13, creatinine 0.97, glucose 195. Impression: 1.Acute exacerbation of asthma. 2.Hypertension, uncontrolled. 3.Congestive heart failure, diastolic. 4.Paroxysmal atrial fibrillation. 5.Hypokalemia. Plan: We will go ahead and replace electrolyte per protocol. We will continue IV steroid, which is Solu-Medrol 40 mg every 8 hours. Continue oxygen nebulizer treatment per order. Add Dulera 2 puffs twice a day. Rinse mouth with water. I will see her tomorrow for followup. Possible discharge to o home tomorrow depending on her condition. YOLY/MODL Voice ID: [id number] Report ID: [id number]
[2020-03-11] MEDS: METHYLPREDNISOLONE 40 MG INJ IV SCH (01:21)
[2020-03-11] MEDS: ALBUTEROL 2.5 MG/3 ML NEB SOL NEB SCH ×2 (03:48→09:05)
[2020-03-11] MEDS: IPRATROPIUM BROM 0.5MG/2.5ML NEB SCH ×2 (03:48→09:05)
[2020-03-11] MEDS ORDERED: LEVOTHYROXINE SOD 0.112 MG TAB PO SCH (06:00)
[2020-03-11] MEDS ORDERED: predniSONE 10 MG TAB ONE (07:58)
[2020-03-11] MEDS ORDERED: DOXAZOSIN 2 MG TAB ONE (07:58)
[2020-03-11] MEDS ORDERED: predniSONE 20 MG TAB PO SCH (09:00)
[2020-03-11] MEDS: DOXAZOSIN 4 MG TAB PO SCH (09:00)
[2020-03-11] MEDS: GABAPENTIN 100 MG CAP PO SCH (09:27)
[2020-03-11] MEDS: CHLORTHALIDONE 25 MG TAB PO SCH (09:27)
[2020-03-11] MEDS: VALSARTAN 80 MG TAB PO SCH (09:27)
[2020-03-11] MEDS: APIXABAN 5 MG TABLET PO SCH (09:27)
[2020-03-11] MEDS: LIOTHYRONINE SOD 5 MCG TAB PO SCH (09:29)
[2020-03-11] MEDS: cloNIDine HCL 0.1 MG TAB PO SCH (09:29)
[2020-03-11] MEDS: HYDRALAZINE HCL 25 MG TABLET PO SCH (09:31)
[2020-03-11] MEDS: PANTOPRAZOLE 40MG TABLET PO SCH (09:32)
[2020-03-11] MEDS: DOFETILIDE 500 MCG PO SCH (09:32)
[2020-03-11] MEDS: ICOSAPENT ETHYL 1 GM CAP PO SCH (09:33)
[2020-03-11] MEDS: DULERA 200/5 (MOMETASONE/FORMOTEROL) INHALER IH SCH (09:33)
[2020-03-11 09:35] VITALS: BP 147/86
[2020-03-11 09:58] VITALS: TEMP 98.1
[2020-03-11] MEDS ORDERED: POTASSIUM CL SA 10 MEQ TAB PO ONE (10:54)
--- NOTE | 2020-03-12 04:56 | DS ---
Date of Discharge: 03/11/2020 Disposition: Discharged to go home. Physical Examination: HEENT: Unremarkable. Lungs: Clear to auscultation. Cardiac: Heart sounds normal. Abdomen: Soft, bowel sounds normal. No guarding, rigidity, tenderness, or distention. Extremities: No leg edema. Laboratory Data: Upon admission, white count 5.7, hemoglobin 12.8, and platelet count 183. Yesterda y, white count 6.4, hemoglobin 13.6, platelets 160. Upon admission, sodium 131, potassium 3.4, chlor sirena 96, bicarb 28, BUN 12, creatinine 1.17, glucose 136. Liver function tests unremarkable. Troponi n less than 0.02. Last potassium today 3.4, sodium 131, BUN 13, creatinine 0.97. Discharge Medications And Instructions: 1.Continue all prior home medications. 2.Use Symbicort inhaler 2 puffs by mouth 2 times a day. Rinse mouth with water after each use. 3.Take prednisone 10 mg tablet, the patient to take 2 tablets by mouth 2 times a day for 2 days then 2 tablets by mouth daily for 2 days then 1 tablet by mouth daily for 2 days, then 1/2 tablet by mout h daily for 2 days, then stop. 4.Follow up at my office in 1 week. 5.Use albuterol inhaler 2 puffs by mouth every 4 hours as needed for shortness of breath. Hospital Course: This is an 79-year-old very pleasant female patient who [facility] breath [facility]. Please see dictated H and P for more information. Patient wa s admitted to the hospital with acute exacerbation for mild persistent asthma. Patient was using Sym bicort inhaler in the past though she has not used it lately in long time. After she came into emerg ency room, she was admitted to the hospital with this asthma exacerbation. She has diastolic congest adrienne heart failure problem which has remained stable during this hospitalization. Her home medication s were continued. She was given nebulizer treatment oxygen, IV steroids, and overall her condition h as improved over period of this hospitalization. She is feeling much better. Breathing is much bett er and today she was discharged to go home in stable condition with above-mentioned medication instru ction. She needs refill on her Symbicort and albuterol inhaler. Her potassium was low. I have inst ructed nurse to call prescription for potassium chloride 20 mEq tablets 1 tablet by mouth today and 1 tab tomorrow so only 2 tablets, prescription was requested to be called into her pharmacy. Final Diagnoses: 1.Acute exacerbation of mild persistent asthma. 2.Congestive heart failure, chronic, diastolic. 3.Hypokalemia. 4.Hyponatremia. 5.Hypertension. 6.Paroxysmal atrial fibrillation. 7.Chronic anticoagulation therapy. 8.Impaired fasting glucose. 9.Hypothyroidism. 10.Allergic rhinitis. 11.Hyperlipidemia. YOLY/MODL Voice ID: [id number] Report ID: [id number]
== END 2020-03-11 10:58 | disposition home or self-care (01) | DRG 202 ==
LOC: ER 16:22 → ERHOLD 18:38 → 2ND 03-10 01:44
PROVIDERS: ADMIT Internal Medicine; ATTEND Internal Medicine
DX: J45.31 Mild persistent asthma with (acute) exacerbation (principal); I50.32 Chronic diastolic (congestive) heart failure; E87.1 Hypo-osmolality and hyponatremia; I11.0 Hypertensive heart disease with heart failure; E87.6 Hypokalemia; I48.0 Paroxysmal atrial fibrillation; E03.9 Hypothyroidism, unspecified; E78.5 Hyperlipidemia, unspecified; R73.01 Impaired fasting glucose; Z79.51 Long term (current) use of inhaled steroids; Z90.49 Acquired absence of other specified parts of digestive tract; Z90.710 Acquired absence of both cervix and uterus; Z86.73 Personal history of transient ischemic attack (TIA), and cerebral infarction without residual deficits; Z96.651 Presence of right artificial knee joint
CPT/HCPCS: 36415; 71045; 72070; 72100; 80048; 80076; 82550; 83880; 84484; 85025; 87040; 87804; 93005; 94640; 94760; 96374; 99285; J2920; J2930; J7512; J7606; U0002

== ENCOUNTER 2020-04-21 06:29 | Day surgery (SDC) | payer OTHER, MEDICARE ==
--- OUTSIDE RECORDS SUMMARY | 2020-04-21 06:36 | XMS REPORT | Continuity of Care Document ---
:1940 Author Organization [employer] [facility] Information Wingu Care Team Providers Name Role Phone [employer] [facility] Information [facility] Unavailable Un available Problems Problem Status Onset Classification Date Comments Sourc e Date Reported ISCHEMIC STROKE Active [address] LFLT [id number] Active [address] Atrial fibrillation Active Problem 06/17/2017 [place] [facility] Consult Personal history of Active Problem 06/17/2017 [place] transient ischemic C ardiology attack [TIA], and Co nsult cerebral infarction without residual deficits Palpitations Active Problem 06/17/2017 [place] Cardiology Consult Transient cerebral Active Problem 06/17/2017 [place] ischemic attack, Car diology unspecified Consult Bradycardia, Active Problem 06/17/2017 [place] unspecified Cardiolo gy Consult Personal history of Active Problem 06/17/2017 [place] transient ischemic C ardiology attack (TIA), and Co nsult cerebral infarction without residual deficits History of falling Active Problem 06/17/2017 [place] [facility] Consult Abnormal Active Problem 06/17/2017 [place] electrocardiogram Ca rdiology [ECG] [EKG] Consult Morbid (severe) Active Problem 06/17/2017 [place] obesity due to excess Cardiology calories Consult Arthropathy, Active Problem 06/17/2017 [place] unspecified Cardiolo gy Consult Major depressive Active Problem 06/17/2017 [place] disorder, single Car diology episode, unspecified Consult Chest pain, Active Problem 06/17/2017 [place] unspecified Cardiolo gy Consult Shortness of breath Active Problem 06/17/2017 [place] [facility] Consult Constipation, Active Problem 06/17/2017 [place] unspecified Cardiolo gy Consult Hypothyroidism, Active Problem 06/17/2017 [place] unspecified Cardiolo gy Consult Hyperlipidemia, Active Problem 06/17/2017 [place] unspecified Cardiolo gy Consult Chronic kidney Active Problem 06/17/2017 [place] disease, unspecified Cardiology Consult Insomnia, unspecified Active Problem 06/17/2017 [place] [facility] Consult Nonrheumatic mitral Active Problem 06/17/2017 [place] (valve) insufficiency Cardiology Consult Paroxysmal atrial Active Problem 06/17/2017 [place] fibrillation Cardiol ogy Consult 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 ton disease, Stage III C ardiology (moderate) Consult Congestive 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 [place] failure, unspecified Cardiology Consult Hypertensive heart and Active Diagnosis 06/17/2017 [place] chronic kidney disease Cardiology with heart failure and Consult stage 1 through stage 4 chronic kidney disease, or unspecified chronic kidney disease Hypertension essential Active Problem 06/17/2017 [place] benign Cardiology Consult Occlusion and stenosis Active Problem 06/17/2017 [place] of carotid artery Ca rdiology without mention of C onsult cerebral infarction Insomnia, unspecified Active Problem 06/17/2017 [place] [facility] Consult Mitral valve disorders Active Problem 06/17/2017 [place] [facility] Consult Other and unspecified Active Problem 06/17/2017 [place] hyperlipidemia Cardi ology Consult Unspecified Active Problem 06/17/2017 [place] hypothyroidism Cardi ology Consult Obesity, unspecified Active Problem 06/17/2017 [place] [facility] Consult Other malaise and Active Problem 06/17/2017 [place] fatigue Cardiology Consult Shortness of breath Active Problem 06/17/2017 [place] [facility] Consult Chest pain, Active Problem 06/17/2017 [place] unspecified Cardiolo gy Consult Chronic diastolic Active Problem 06/17/2017 [place] (congestive) heart C ardiology failure Consult Unspecified Active Problem 06/17/2017 [place] constipation Cardiol ogy Consult Impaired fasting blood Active Problem 06/17/2017 [place] sugar Cardiology Consult Overactive bladder Active Problem 06/17/2017 [place] [facility] Consult Anxiety disorder, Active Problem 06/17/2017 [place] unspecified Cardiolo gy Consult Incontinence without Active Problem 06/17/2017 [place] sensory awareness Ca rdiology Consult Encounter for Active Problem 06/17/2017 [place] screening for diabetes Cardiology mellitus Consult Retention of urine, Active Problem 06/17/2017 [place] unspecified Cardiolo gy Consult Hypertensive heart and Active Problem 06/17/2017 [place] chronic kidney Cardi ology disease, benign, with Consult heart failure and with chronic kidney disease stage I through stage IV, or unspecified Depressive disorder, Active Problem 06/17/2017 [place] not elsewhere Cardio logy classified Consult Urinary tract Active Problem 06/17/2017 [place] infection, site not Cardiology specified Consult Unspecified Active Problem 06/17/2017 [place] arthropathy, site Ca rdiology unspecified Consult Frequency of Active Problem 06/17/2017 [place] micturition Cardiolo gy Consult Morbid obesity Active Problem 06/17/2017 [facility] ton Cardiology Consult Female genuine stress Active Problem 06/17/2017 [place] incontinence Cardiol ogy Consult Nonspecific abnormal Active Problem 06/17/2017 [place] electrocardiogram Ca rdiology (ECG) (EKG) Consult Palpitations Active Problem 06/17/2017 [place] Cardiology Consult Other specified Active Problem 06/17/2017 [place] cardiac dysrhythmias Cardiology Consult Upper respiratory Active Problem 06/17/2017 [place] tract hypersensitivity Cardiology reaction, site Consu lt unspecified Unspecified transient Active Problem 06/17/2017 [place] cerebral ischemia Ca rdiology Consult Personal history of Active Problem 06/17/2017 [place] fall Cardiology Consult Acute upper Active Problem 06/17/2017 [place] respiratory infections Cardiology of unspecified site Consult Gastroesophageal Resolved Problem 11/28/2014 [facility] reflux disease Medic al (disorder) Center Hypercholesterolemia Resolved Problem 11/28/2014 [facility] (disorder) [facility] Hyperlipidemia Resolved Problem 11/28/2014 [facility] (disorder) [facility] Hypertensive disorder, Resolved Problem 11/28/2014 [facility] systemic arterial Me dical (disorder) Center Hypothyroidism Resolved Problem 11/28/2014 [facility] (disorder) [facility] CVA Active [facility] Medications Medication Details Route Status Patient Ordering Order Source Instructions Provider Date Eliquis 1 tablet Orally Active 5 MG Orally [facility] [place] twice a day 2016 Cardiology Consult Edarbyclor 1 tablet Orally Active 40-25 MG [facility] [place] Orally Once a 2017 Cardiology day Consult Edarbyclor 1 tablet Orally Active 40-25 MG [facility] [place] Orally Once a 2017 Cardiology day Consult Dofetilide 1 capsule Orally Active 500 MCG [facility] [place] Orally Twice 2017 Cardiology a day Consult Cipro 1 tablet Orally Active 500 MG Orally [facility] [place] Twice a day 2016 Cardiology Consult Warfarin Notes: Nurse Inactive 11/26/ [facility] to ensure 2015 Medical documentation Center [...] Notes: Same Inactive as [place] 2014 [facility] Protonix Notes: Tablet No Longer [place] should not be Active 2014 [facility] chewed or Center crushed. (Same as: Protonix) Atenolol Notes: (Same No Longer [place] As:Tenormin) Active 2014 [facility] valsartan 320 mg, No Longer [place] Route: [...] [place] Longer [place] porcine Active 2014 [facility] heparin [place] Plavix Notes: (Same No Longer [place] As: Plavix) Active 2014 [facility] Tylenol Notes: Do not No Longer [place] exceed 4 Active 2014 Medical gm/day. Center (Same as: Tylenol) atorvastatin Notes: (Same No Longer [place] as: Lipitor) Active 2014 [facility] Bupropion Notes: (Do No Longer [place] not crush) Active 2014 Medical (Same As: [place] Wellbutrin SR) valsartan 40 mg, Route: Inactive [place] PO, BID, 2015 Medical Dosing Weight Center 114.318, kg, Start date: 11/24/14 17:00:00, Duration: 30 day, Stop date: 12/24/14 9:00:00 Triiodothyronine Notes: (Same No Longer [place] as: Cytomel) Active 2014 [facility] Atenolol 100 MG 50 mg = 0.5 No Longer [facility] Oral Tablet tab, PO, BID, Active 2014 Medica l # 30 tab, 0 Center Refill(s) pravastatin 40 mg 40 mg = 1 No Longer [facility] oral tablet tab, PO, Active 2014 Medical Bedtime, # 30 Center tab, 0 Refill(s) Furosemide 40 MG 40 mg = 1 No Longer [facility] Oral Tablet tab, PO, Active 2014 Medical [Lasix] Daily, # 30 Center tab, 0 Refill(s) spironolactone 25 25 mg = 1 No Longer [facility] mg oral tablet tab, PO, Active [...] 5 mg = 1 tab, No Longer [facility] Oral Tablet PO, Daily, # Active [...] [place] MG/ACTUAT Metered INHALATION, Active 2014 Ma dical Dose Inhaler Q6H, as Center [Ventolin] needed for wheezing, # 17 gm, 0 Refill(s) levothyroxine 100 100 microgram Active [facility] mcg (0.1 mg) oral = 1 tab, PO, 2014 M edical tablet QAM, # 30 Center tab, 0 Refill(s) doxazosin 4 mg 4 mg = 1 tab, Active [facility] oral tablet PO, Daily, # 2015 Medical 30 tab, 0 Center Refill(s) valsartan 320 mg 320 mg = 1 No Longer [facility] oral tablet tab, PO, Active 2014 Medical Daily, # 30 Center tab, 0 Refill(s) Triiodothyronine Notes: (Same Inactive [facility] as: Cytomel) [address] [place] [address] Reglan Notes: (Same Inactive [facility] as: Reglan) [address] [place] [address] Magnesium Sulfate 2 gm, 50 mL, Inactive [facility] Route: IVPB, 2014 Medical Drug form: [...] Saline Flush 0.9% Notes: (Same No Longer [facility] as: BD Active 2014 [facility] Posiflush) Center Versed Notes: (Same Inactive [facility] as: Versed) [address] [place] [address] Pravastatin 40 mg = 1 Inactive [facility] Sodium 40 MG Oral tab, PO, 2015 Medic al Tablet Bedtime, # 30 Center [Pravachol] tab, 0 Refill(s) aspirin 0 Refill(s) Inactive [address] Fenofibrate 160 160 mg = 1 In[place] MG Oral Tablet tab, PO, 2015 Medical Daily, # 30 Center tab, 0 Refill(s) Atenolol 0 Refill(s) Inactive [address] valsartan 320 mg 320 mg = 1 Inactive [facility] oral tablet tab, PO, 2014 Medical Daily, # 30 Center tab, 0 Refill(s) Potassium 0 Refill(s) Inactive [facility] Chloride 20 MEQ 2015 [facility] Extended Release Center Tablet Metolazone 5 MG 5 mg = 1 tab, Inactive [place] Oral Tablet PO, Daily, # 2015 Medical 30 tab, 0 Center Refill(s) Furosemide 40 MG 40 mg = 1 [place] Oral Tablet tab, PO, 2014 Medical [Lasix] Daily, # 30 Center tab, 0 Refill(s) liothyronine 5 5 microgram = Inactive [facility] mcg oral tablet 1 tab, PO, 2014 Medic al Daily, # 30 Center tab, 0 Refill(s) Omeprazole 0 Refill(s) Inactive [address] spironolactone 25 0 Refill(s) Inactive [facility] mg oral tablet [address] [place] [address] Zofran Notes: (Same Inactive [facility] as: Zofran) [address] [place] [address] Tylenol Notes: Do not Inactive [facility] exceed 4 2015 Medical gm/day. Center (Same as: Tylenol) Sodium Chloride 1,000 mL, No Longer [place] 0.154 MEQ/ML Rate: 75 Active 2014 Medical Injectable ml/hr, Infuse Center Solution over: 13.3 hr, Route: IV, Total Volume: 1,000, Start date: 11/23/14 23:06:00, Duration: 30 day, Stop date: 12/23/14 23:05:00 Saline Flush 0.9% Notes: (Same No Longer [facility] as: BD Active 2014 Medical Posiflush) Center Acetaminophen Notes: Do not No Longer [facility] exceed 4 Active 2014 Medical gm/day. [...] Not Given [place] Alexandre as 23-valent vaccine [facility] Results Order Name Results Value Reference Date Interpretation Comments Katarina rce Range CHEM PANEL Magnesium Lvl 2.1 1.8 - 2.4 11/26 [place] [facility] CHEM PANEL Phosphorus 2.8 2.5 - 4.5 11/26 [facility] CHEM PANEL eGFR 40 11/26 <sup>1</sup>Re Alexandre [...] values reflect the clinical guidelines<br/ >of the [place] [employer]. CHEM PANEL BUN 18 7 - 22 11/26 [facility] CHEM PANEL Creatinine 1.3 0.5 - 1.4 11/26 [facility] CHEM PANEL Sodium Lvl 136 135 - 145 11/26 [facility] CHEM PANEL Chloride Lvl 102 95 - 109 11/26 [place] [facility] CHEM PANEL Potassium Lvl 3.5 3.5 - 5.1 11/26 [facility] CHEM PANEL Calcium Lvl 9.0 8.5 - 10.5 02 [facility] CHEM PANEL CO2 25 24 - 32 02 [facility] CHEM PANEL AGAP 12.5 10.0 - 02/ 20.0 [facility] HEMATOLOGY RDW 13.1 11.5 - 02/ 14.5 /2014 [facility] HEMATOLOGY MCH 32.4 27.0 - 02 31.0 [facility] HEMATOLOGY MCV 93.5 80.0 - 02 98.0 /2014 [facility] HEMATOLOGY MCHC 34.6 32.0 - 02 36.0 [facility] HEMATOLOGY Hct 33.6 36.0 - 02 48.0 /2014 [facility] HEMATOLOGY Hgb 11.6 12.0 - 02 16.0 /2014 [facility] HEMATOLOGY RBC 3.60 4.20 - 02 5.40 /2014 [facility] HEMATOLOGY WBC 4.6 3.7 - 10.4 02 [facility] HEMATOLOGY MPV 8.3 7.4 - 10.4 02/ [facility] HEMATOLOGY Platelet 149 133 - 450 02 [facility] HEMATOLOGY Segs 62.3 45.0 - 02 75.0 [facility] HEMATOLOGY Lymphocytes # 1.2 1.0 - 5.5 02 [facility] HEMATOLOGY Monocytes # 0.4 0.0 - 0.8 02 [facility] HEMATOLOGY Eosinophils 3.0 0.0 - 4.0 02 [facility] HEMATOLOGY Lymphocytes 26.2 20.0 - 02/ 40.0 [facility] HEMATOLOGY Segs-Bands # 2.9 1.5 - 8.1 11/26 [facility] HEMATOLOGY Basophils 0.5 0.0 - 1.0 02 [facility] HEMATOLOGY Monocytes 8.0 2.0 - 12.0 02/ [facility] HEMATOLOGY Eosinophils # 0.1 0.0 - 0.5 02 [facility] CHEM PANEL Phosphorus 3.1 2.5 - 4.5 0203 [facility] CHEM PANEL eGFR 34 11/25 <sup>2</sup>Re laura [...] CO2 25 24 - 32 11/25 [facility] CHEM PANEL AGAP 12.8 10.0 - 11/25 [facility] 20. [facility] CHEM PANEL Calcium Lvl 8.7 8.5 - 10.5 11/25 [facility] CHEM PANEL Chloride Lvl 104 95 - 109 11/25 [facility] CHEM PANEL BUN 23 7 - 22 11/25 [facility] CHEM PANEL Sodium Lvl 138 135 - 145 11/25 [facility] CHEM PANEL Glucose Lvl 82 70 - 99 11/25 <sup>5</sup>In terpretive Medical Data: Adult Center reference range values reflect the clinical guidelines<br/ >of the [place] [employer]. CHEM PANEL Creatinine 1.5 0.5 - 1.4 11/25 [facility] CHEM PANEL Potassium Lvl 3.8 3.5 - 5.1 11/25 [facility] CHEM PANEL Magnesium Lvl 2.7 1.8 - 2.4 11/25 [facility] HEMATOLOGY Segs 63.1 45.0 - 11/25 [facility] 75.0 [facility] HEMATOLOGY Lymphocytes 27.1 20.0 - 02 [place] 40.0 /2014 [facility] HEMATOLOGY Monocytes 7.2 2.0 - 12.0 11/25 [facility] HEMATOLOGY Eosinophils # 0.1 0.0 - 0.5 11/25 [facility] HEMATOLOGY Eosinophils 2.2 0.0 - 4.0 / [facility] HEMATOLOGY Basophils 0.4 0.0 - 1.0 11/25 [facility] HEMATOLOGY Segs-Bands # 3.1 1.5 - 8.1 11/25 [facility] HEMATOLOGY Monocytes # 0.3 0.0 - 0.8 11/25 [facility] HEMATOLOGY Lymphocytes # 1.3 1.0 - 5.5 11/25 [facility] HEMATOLOGY MPV 8.5 7.4 - 10.4 11/25 [facility] HEMATOLOGY MCH 31.6 27.0 - 11/25 31.0 [facility] HEMATOLOGY MCV 93.4 80.0 - 11/25 98.0 /2014 [facility] HEMATOLOGY Hct 33.2 36.0 - 11/25 [place] 48.0 /2014 [facility] HEMATOLOGY Platelet 151 133 - 450 11/25 [facility] HEMATOLOGY RDW 13.1 11.5 - 11/25 14.5 /2014 [facility] HEMATOLOGY MCHC 33.8 32.0 - 11/25 36.0 /2014 [facility] HEMATOLOGY Hgb 11.2 12.0 - 02 16.0 [facility] HEMATOLOGY RBC 3.56 4.20 - 02 [place] 5.40 /2014 [facility] HEMATOLOGY WBC 4.9 3.7 - 10.4 11/25 [facility] HEMATOLOGY INR 1.14 0.85 - 02 <sup>7</sup>In [...] Seconds HEMATOLOGY PT 14.7 12.0 - 11/25 [facility] 14.7 [facility] THYROID TSH 3.190 0.360 - 11/25 [place] PANEL 3.740 /2014 [facility] URINE AND UA <=1.0 0.1 - 1.0 11/24 [facility] Urobilinogen mg/dL /2014 [facility] URINE AND UA Renal Epi 7 <=0 /LPF 11/24 [facility] /2014 [facility] URINE AND UA Sq Epi Moderate Few /LPF 11/24 [facility] STOOL /LPF /2014 [facility] URINE AND UA WBC 2 0 - 5 11/24 [facility] [address] [place] [address] URINE AND UA Nitrite Negative Negative 11/24 [facility] (11/24/14 2:06 AM) /2014 [facility] URINE AND UA Leuk Est Negative Negative 11/24 [facility] (11/24/14 2:06 AM) /2014 [facility] URINE AND UA Blood Negative Negative 11/24 [facility] (11/24/14 2:06 AM) /2014 [facility] URINE AND UA Protein Negative Negative 11/24 [facility] mg/dL mg/dL /2014 [facility] URINE AND UA pH 6.5 5.0 - 8.0 11/24 [facility] [address] [place] [address] URINE AND UA Glucose Negative Negative 11/24 [facility] mg/dL mg/dL [facility] URINE AND UA Bili Negative Negative 11/24 [facility] *NA* /2014 [facility] (11/24/14 2:06 AM) [place] URINE AND UA Ketones Negative Negative 11/24 [facility] mg/dL mg/dL /2014 [facility] URINE AND UA Spec Grav 1.009 <=1.030 11/24 [facility] /[address] [place] [address] URINE AND UA Turbidity Clear Clear 11/24 [facility] (11/24/14 2:06 AM) /2014 [facility] URINE AND UA Color Yellow Yellow 11/24 [facility] *NA* /2014 [facility] (11/24/14 2:06 AM) [place] CHEM PANEL A/G Ratio 1.2 0.7 - 1.6 11/24 [facility] [address] [place] [address] CHEM PANEL Globulin 3.2 2.0 - 4.0 11/24 [facility] CHEM PANEL B/C Ratio 22 6 - 25 11/24 [facility] CHEM PANEL AGAP 9.8 10.0 - 02 [facility] 20.0 /2014 [facility] CHEM PANEL eGFR 29 02 <sup>3</sup>Re [facility] sult Comment: Medical The eGFR is Center [...] values reflect the clinical guidelines<br/ >of the [place] [employer]. CHEM PANEL Calcium Lvl 8.7 8.5 - 10.5 11/24 [facility] CHEM PANEL ALT 29 0 - 65 11/24 2014 [facility] CHEM PANEL AST 17 0 - 37 11/24 [facility]2014 [facility] CHEM PANEL Albumin Lvl 3.7 3.5 - 5.0 11/24 [facility] CHEM PANEL Total Protein 6.9 6.4 - 8.4 11/24 [facility] CHEM PANEL CO2 28 24 - 32 11/24 [facility]2014 [facility] CHEM PANEL Chloride Lvl 103 95 - 109 11/24 [facility] CHEM PANEL Potassium Lvl 3.8 3.5 - 5.1 11/24 [facility] CHEM PANEL Sodium Lvl 137 135 - 145 11/24 [facility]2014 [facility] CHEM PANEL Creatinine 1.7 0.5 - 1.4 02 [facility] Lvl [facility] CHEM PANEL BUN 37 7 - 22 11/24 [facility] CHEM PANEL Alk Phos 37 39 - 136 11/24 [facility] CHEM PANEL Bili Total 0.4 0.2 - 1.3 11/24 [facility] [address] [place] [address] HEMATOLOGY Monocytes # 0.4 0.0 - 0.8 11/24 [facility] s [facility] HEMATOLOGY Lymphocytes # 1.1 1.0 - 5.5 11/24 [facility] xa [facility] HEMATOLOGY Eosinophils # 0.1 0.0 - 0.5 11/24 [facility] xa [facility] HEMATOLOGY Segs 70.9 45.0 - 02 [facility] 75.0 [facility] HEMATOLOGY Monocytes 6.7 2.0 - 12.0 11/24 [facility] HEMATOLOGY Lymphocytes 19.7 20.0 - 11/24 40.0 [facility] HEMATOLOGY Eosinophils 2.3 0.0 - 4.0 11/24 [facility] HEMATOLOGY Segs-Bands # 4.0 1.5 - 8.1 11/24 [facility] HEMATOLOGY Basophils 0.4 0.0 - 1.0 11/24 [facility] HEMATOLOGY PTT 28.2 22.9 - 02 <sup>10</sup>I [facility] as 35.8 nterpretive Medical Data: Heparin Center Therapeutic Range: 57 - 92 [place] HEMATOLOGY PT 13.9 12.0 - 02 14.7 [facility] HEMATOLOGY INR 1.07 0.85 - 11/24 <sup>8</sup>In [facility] as 1.17 terpretive Medical Data: Center RECOMMENDED RANGES FOR PROTIME INR:
2.0-3.0 for most medical and surgical thromboembolic states.
2.5-3.5 for artificial heart valves and recurrent embolism.

INR SHOULD BE USED ONLY FOR PATIENTS ON STABLE ANTICOAGULANT THERAPY. HEMATOLOGY MPV 8.8 7.4 - 10.4 02 [facility] HEMATOLOGY WBC 5.7 3.7 - 10.4 11/[address] HEMATOLOGY MCV 94.9 80.0 - 02/02 [facility] 98.0 /2014 [facility] HEMATOLOGY RBC 3.73 4.20 - 11/24 [facility] 5.40 /2014 [facility] HEMATOLOGY RDW 13.3 11.5 - 11/24 [facility] 14.5 /2014 [facility] HEMATOLOGY Hgb 12.1 12.0 - 11/24 [facility] 16.0 /2014 [facility] HEMATOLOGY Hct 35.3 36.0 - 11/24 [facility] 48.0 /2014 [facility] HEMATOLOGY Platelet 158 133 - 450 02 [facility] HEMATOLOGY MCHC 34.2 32.0 - 02 [facility] 36.0 /2014 [facility] HEMATOLOGY MCH 32.5 27.0 - 11/24 [facility] 31.0 /2014 [facility] LIPIDS CHD Risk 2.81 3.90 - 11/24 [facility] 5.80 /2014 [facility] LIPIDS VLDL 26 11/24 [facility] LIPIDS LDL 59 <=99 mg/dL 11/24 [facility] (Calculated) [facility] LIPIDS Trig 128 <=149 11/24 [facility] mg/dL [facility] LIPIDS HDL 47 >=61 mg/dL 11/24 [facility] LIPIDS Chol 132 <=199 11/24 [facility] mg/dL [facility] SPECIAL Hgb A1C 5.6 <=5.6 % 11/24 [facility] CHEMISTRY [facility] Pathology Reports No Data Provided for This Section Diagnostic Reports Report Value Date Source Neck wo contrast MRA EXAM: MRI BRAIN 11/24/2014 [facility] dical EXAM: MRA BRAIN Center EXAM: MRA [...] caliber. No aneurysm is identified. 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 There is [...] wo contrast MRA EXAM: MRI BRAIN 11/24/2014 [facility] edical EXAM: MRA BRAIN Center EXAM: MRA [...] caliber. No aneurysm is identified. 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 There is [...] wo contrast MRI EXAM: MRI BRAIN 11/24/2014 [facility] edical EXAM: MRA BRAIN Center EXAM: MRA [...] caliber. No aneurysm is identified. 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 There is [...] Date Comments Source Respitory Rate 16 11/26/2014 [facility] Systolic (mm Hg) 172 11/26/2014 [facility] Diastolic (mm Hg) 79 11/26/2014 [facility] Heart Rate 57 11/26/2014 [facility] Temperature Oral (F) 97.5 F 11/26/2014 [facility] Temperature Oral (F) 97.5 F 11/26/2014 [facility] Heart Rate 69 11/26/2014 [facility] Diastolic (mm Hg) 79 11/26/2014 [facility] Respitory Rate 18 11/26/2014 [facility] Systolic (mm Hg) 166 11/26/2014 [facility] Respitory Rate 16 11/26/2014 [facility] Systolic (mm Hg) 157 11/26/2014 [facility] d[facility] Center Diastolic (mm Hg) 66 11/26/2014 [facility] Heart Rate 65 11/24/2014 [facility] Weight 114.318 11/24/2014 [facility] BMI Calculated 43.26 11/24/2014 [facility] Height 162.56 cm 11/24/2014 [facility] Encounters Location Location Encounter Encounter Reason Attending ADM [place] Source Details Type Number For Provider Date Date Visit [facility] Inpatient [id number] Bennett Salmon 11/24 11/26 [facility] /2014 [facility] PT/INR 3.0 [id number] 12/19 12/19 [facility] j-[id number]- /2014 [facility] [id number] [facility] [place] PT/INR 3.0 [id number] 12/19 12/19 [facility] 2-4hj8-83n4- /2014 [facility] [id number] [facility] [place] PT/INR 3.0 [id number] 12/19 12/19 [facility] 8-961n-e5t0- /2014 [facility] [id number] [facility] [place] PT/INR 3.0 [id number] 12/19 12/19 [facility] r-8l20-g412- /2014 [facility] [id number] y [facility] [place] Unknown [id number] 12/19 12/19 [facility] n-628b-ci12- /2014 [facility] [id number] y [facility] [place] Unknown [id number] 12/19 12/19 [facility] i-4s8c-7420- /2014 [facility] [id number] y [facility] [place] Unknown [id number] 12/19 12/19 [facility] p-6882-68lr- /2014 [facility] [id number] y [facility] [place] Unknown [id number] 12/19 12/19 [facility] 5-680o-c06b- /2014 [facility] [id number] [facility] [place] PT/INR 3.0 [id number] 12/19 12/19 [facility] l-4xab-4808- /2014 [facility] [id number] [facility] [place] PT/INR 3.0 [id number] 12/19 12/19 [facility] 4-4873-1b90- /2014 [facility] [id number] [facility] [place] Unknown [id number] 12/19 12/19 [facility] 5-3925-7n2n- /2014 [facility] [id number] y [facility] [place] Unknown [id number] 12/19 12/19 [facility] 6-3wi0-a0gf- /2014 [facility] [id number] [facility] [place] Unknown [id number] 03/23 03/23 [facility] 4-317x-w5li- /2014 [facility] [id number] [facility] [place] Unknown [id number] 03/23 03/23 [facility] b-1uqg-63p6- /2014 [facility] [id number] [facility] [place] Unknown [id number] 03/23 03/23 [facility] 4-9326-j9t6- /2014 [facility] [id number] y [facility] [place] Unknown [id number] 03/23 03/23 [facility] 9-2452-5qu2- /2014 [facility] [id number] y [facility] [place] Unknown [id number] 03/23 03/23 [facility] v-454k-dz38- /2014 [facility] [id number] y [facility] [place] Unknown [id number] 03/23 03/23 [facility] 9-2mk6-7740- /2014 [facility] [id number] [facility] [place] Unknown [id number] 08/12 08/12 [facility] z-0z35-9s0j- /2014 [facility] [id number] [facility] [place] Unknown [id number] 08/12 08/12 [facility] 0-6675-a33e- /2014 [facility] [id number] y [facility] [place] Unknown [id number] 08/12 08/12 [facility] 5-3wk1-zr12- /2014 [facility] [id number] [facility] [place] Unknown [id number] 08/12 08/12 [facility] 7-500r-3h07- /2014 [facility] [id number] y [facility] [place] Unknown [id number] 08/12 08/12 [facility] 6-2597-7d64- /2014 [facility] [id number] [facility] [place] Unknown [id number] 08/12 08/12 [facility] 7-8u10-gg9f- /2014 [facility] [id number] [facility] [place] Unknown [id number] 01/28 01/28 [facility] n-8133-00tf- /2015 [facility] [id number] [facility] [place] Unknown [id number] 01/28 01/28 [facility] 2-645r-b481- /2015 [facility] [id number] y [facility] [place] Unknown [id number] 01/28 01/28 [facility] 6-891g-oa38- /2015 [facility] [id number] y [facility] [place] Unknown [id number] 01/28 01/28 [facility] 8-5r4v-q13v- /2015 [facility] [id number] y [facility] [place] Unknown [id number] 01/28 01/28 [facility] 6-4w40-h3l8- /2015 [facility] [id number] y [facility] [place] Unknown [id number] 01/28 01/28 [facility] 6-7924-fza5- /2015 [facility] [id number] [facility] [place] Unknown [id number] 03/11 03/11 [facility] t-4068-1hfe- /2015 [facility] [id number] [facility] [place] Unknown [id number] 03/11 03/11 [facility] z-8801-428j- /2015 [facility] [id number] y [facility] [place] Unknown [id number] 03/11 03/11 [facility] 4-3122-b9pq- /2015 [facility] [id number] y [facility] [place] Unknown [id number] 03/11 03/11 [facility] t-12rq-2311- /2015 [facility] [id number] y Consult [place] Unknown [id number] 03/11 03/11 [facility] h-2922-2xq1- /2015 [facility] [id number] y [facility] [place] Unknown [id number] 04/15 04/15 [facility] 6-76vk-23m5- /2015 [facility] [id number] y Consult [place] Unknown [id number] 04/15 04/15 [facility] g-0km5-cof5- /2015 [facility] [id number] y [facility] [place] Unknown [id number] 04/15 04/15 [facility] 0-96u9-xvl5- /2015 [facility] [id number] y Consult [place] Unknown [id number] 04/15 04[facility]15 [facility]21-[facility]- /2015 [facility] [id number] y Consult [place] Unknown [id number] 04/15 04/15 [facility] w-6cwa-pg84- /2015 [facility] [id number] y Consult [place] Unknown [id number] 04/15 04/15 [facility] l-182h-p102- /2015 [facility] [id number] y Consult [place] Unknown [id number] 04/15 04/15 [facility] e-3195-15jx- /2015 [facility] [id number] y Consult [place] Unknown [id number] 04/15 04/15 [facility] 0-5810-12k4- /2015 [facility] [id number] y [facility] [place] Other [id number] 09/09 09/09 [facility] 0-00na-g601- /2015 [facility] [id number] y Consult [place] Other [id number] 09/09 09/09 [facility] 4-6buk-f652- /2015 [facility] [id number] y Consult [place] Unknown [id number] 12/20 12/20 [facility] 2-3ov9-w5wp- /2016 [facility] [id number] y Consult Procedures Procedure Code Date Perfomer Comments Source Knee replacement [id number] [facility] Assessment and Plan Assessment and Plan Date Source Extracted from:Title: Stroke Follow Up 11/26/2014 [facility] Author: Leida Alfaro Date: 11/26/14 Arranged for patient to follow up with [facility] on January 06, 2015 at 10:30am with DAMIÁN Cardona/Dr. Diallo. Patient is aware and agreeable to appointment. Will remain available as needed. 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 David Salmon [phone], to monitor her PT INR on Friday, November 28, 2014 at 11:15am. Extracted from:Title: Stroke Author: Bal Pierce DO Date: 11/23/14 STROKE TEAM HISTORY AND PHYSICAL Attending of Record: Dr. Begum Date of Admission: 11/24/14 Requesting Physician/Service: Transfer from OSH ([facility]) CC: expressive aphasia HISTORY OF PRESENT ILLNESS: Patient is a 74 year old right handed fe male with pmhx of hypertension, coronary artery disease, GERD, hyperthyroidism and mitral valve prolapse p/w expressive aphasia from OSH s/p tPA. Patient presente lorena to [facility] with acute onset of word finding difficulty around 7pm. Pt arrived at [facility] 1944 CTH was done at 1999. [...] she quit 30 years ago, had a 70-vztp-xsbk history. MEDICATIONS: KCL Omeprazole Valsartan Fenofibrate Pravachol [...] OSH s/p tPA. Patient presente d to [facility] with acute onset of word finding [...] HbA1c. Treat fevers and blood sugars aggressively. 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 NPO prior to bedside swallow assessment; and escalation of care as determined by nurse DVT prophylaxis with SCDs. 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 Teo CarrilloJasonmorales Reeder MD [facility] [employer] [facility] Pager: [phone] Addendum by Teo Reeder MD on 11/25/2014 19:06 The patient does not have AFIB Teo (Jason) MD Varinder [employer] [facility] Pager: [phone] Plan of Care No Data Provided for This Section Social History Social History Date Source Social History ElementQualifiersDate Reported 09/27/2016 [facility] Consult Smoking . Status: former smoker [...] Sep 27, 2016 Social History TypeResponse 11/24/2014 [facility] Smoking Status Never smoker, Ready to change: No, Anna rns about tobacco use in household: No, Exposure to Tobacco Smoke None, Cigarette Smoking Last 365 Days No, Reg Smoking Cessation Counseling No Family History No Data Provided for This Section Advance Directives No Data Provided for This Section Functional Status No Data Provided for This Section
--- OUTSIDE RECORDS SUMMARY | 2020-04-21 06:40 | XMS REPORT | Continuity of Care Document ---
:1940 Author Organization [facility] t Address [address] [place] [address] Care Team Providers Name Role Phone HANDY Attending Clinician Unavailable Michelle Beugm Attending Clinician Michelle Begum Admitting Clinician Problems Condition Condition Condition Status Onset Resolution Last Treating Co mments Source Name Details Category Date Date Treatment Clinician Date ISCHEMIC Diagnosis Active 2015-02-19 M emoria STROKE 2- 08:33:00 l ISCHEMIC 00:00: Epifanio n STROKE 00 Active 11/23/2014 [facility] LFLT Diagnosis Active 2015-02-19 Mem oria TRANSFER#5 2- 08:34:00 l 34 LFLT 00:00: Elia TRANSFER#5 00 34 Active 5 [facility] History of History of Problem Resolve Univers [...] Active U nivers screen [facility] [place] [facility] Cerebral Cerebral Problem Active Unive rs infarction infarction [facility] [place] [facility] Essential Essential Problem Active Uni vers hypertensi hypertensi it y of on on [place] [facility] Sleep Sleep Problem Active Univers apnea apnea [facility] [place] [facility] Gastroesop Problem Resolve 2014-11-28 Memoria hageal d 15:24:41 l reflux Elia disease Gastroesop (disorder) hageal reflux disease (disorder) Resolved Problem 11/28/2014 [facility] Hyperchole Problem Resolve 2014-11-28 Memoria sterolemia d 15:24:41 l (disorder) Epifanio n Hyperchole sterolemia (disorder) Resolved Problem 11/28/2014 [facility] Hyperlipid Problem Resolve 2014-11-28 Memoria emia d 15:24:41 l (disorder) Epifanio n Hyperlipid emia (disorder) Resolved Problem 11/28/2014 [facility] Hypertensi Problem Resolve 2014-11-28 Memoria ve d 15:24:41 l disorder, [place] systemic Hypertensi arterial ve (disorder) disorder, systemic arterial (disorder) Resolved Problem 11/28/2014 [facility] Hypothyroi Problem Resolve 2014-11-28 Memoria dism d 15:24:41 l (disorder) Epifanio n Hypothyroi dism (disorder) Resolved Problem 11/28/2014 [facility] Atrial Problem Active 2017-06-17 Memor ia fibrillati 02:45:15 l on Atrial Elia fibrillati on Active Problem 7 [facility] Personal Problem Active 2017-06-17 Mem oria history of 02:45:15 l transient Personal Her irvin ischemic history of attack transient [TIA], and ischemic cerebral attack infarction [TIA], and without cerebral residual infarction deficits without residual deficits Active Problem 06/17/2017 [facility] Palpitatio Problem Active 2017-06-17 M emoria ns 02:45:15 l Elia Palpitatio ns Active Problem 7 [facility] Transient Problem Active 2017-06-17 Me moria cerebral 02:45:15 l ischemic [place] attack, Transient unspecifie cerebral d ischemic attack, unspecifie d Active Problem 06/17/2017 [facility] Bradycardi Problem Active 2017-06-17 M emoria a, 02:45:15 l unspecifie Epifanio n d Bradycardi a, unspecifie d Active Problem 06/17/2017 [facility] Personal Problem Active 2017-06-17 Mem oria history of 02:45:15 l transient Personal Her irvin ischemic history of attack transient (TIA), and ischemic cerebral attack infarction (TIA), and without cerebral residual infarction deficits without residual deficits Active Problem 06/17/2017 [facility] History of Problem Active 2017-06-17 M emoria falling 02:45:15 l History Elia of falling Active Problem 06/17/2017 [facility] Abnormal Problem Active 2017-06-17 Mem oria electrocar 02:45:15 l diogram Abnormal Sunni nn [ECG] electrocar [EKG] diogram [ECG] [EKG] Active Problem 06/17/2017 [facility] Morbid Problem Active 2017-06-17 Memor ia (severe) 02:45:15 l obesity Morbid Elia due to (severe) excess obesity calories due to excess calories Active Problem 06/17/2017 [facility] Arthropath Problem Active 2017-06-17 M emoria y, 02:45:15 l unspecifie Epifanio n d Arthropath y, unspecifie d Active Problem 06/17/2017 [facility] Major Problem Active 2017-06-17 Memor ia depressive 02:45:15 l disorder, Major Epifanio n single depressive episode, disorder, unspecifie single d episode, unspecifie d Active Problem 06/17/2017 [facility] Chest Problem Active 2017-06-17 Memor ia pain, 02:45:15 l unspecifie Chest Sunni nn d pain, unspecifie d Active Problem 06/17/2017 [facility] Shortness Problem Active 2017-06-17 Me moria of breath 02:45:15 l [place] Shortness of breath Active Problem 06/17/2017 [facility] Constipati Problem Active 2017-06-17 M emoria on, 02:45:15 l unspecifie Epifanio n d Constipati on, unspecifie d Active Problem 06/17/2017 [facility] Hypothyroi Problem Active 2017-06-17 M emoria dism, 02:45:15 l unspecifie Epifanio n d Hypothyroi dism, unspecifie d Active Problem 06/17/2017 [facility] Hyperlipid Problem Active 2017-06-17 emoria emia, 02:45:15 l unspecifie Epifanio n d Hyperlipid emia, unspecifie d Active Problem 06/17/2017 [facility] Chronic Problem Active 2017-06-17 Alek bethany kidney 02:45:15 l disease, Chronic Sunni nn unspecifie kidney d disease, unspecifie d Active Problem 06/17/2017 [facility] Insomnia, Problem Active 2017-06-17 Me moria unspecifie 02:45:15 l d Elia Insomnia, unspecifie d Active Problem 06/17/2017 [facility] Nonrheumat Problem Active 2017-06-17 M emoria ic mitral 02:45:15 l (valve) [place] insufficie Nonrheumat ncy ic mitral (valve) insufficie ncy Active Problem 06/17/2017 [facility] Paroxysmal Problem Active 2017-06-17 emoria atrial 02:45:15 l fibrillati Epifanio n on Paroxysmal atrial fibrillati on Active Problem 7 [facility] 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:45:15 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 Active Problem 06/17/2017 [facility] Essential Problem Active 2017-06-17 Me moria (primary) 02:45:15 l hypertensi Epifanio n on Essential (primary) hypertensi on Active Problem 7 [facility] Chronic Problem Active 2017-06-17 Alek bethany kidney 02:45:15 l disease, Chronic Sunni nn Stage III kidney (moderate) disease, Stage III (moderate) Active Problem 06/17/2017 [facility] Congestive Problem Active 2017-06-17 M emoria heart 02:45:15 l failure, [place] unspecifie Congestive d heart failure, unspecifie d Active Problem 06/17/2017 [facility] Hypertensi Diagnosis Active 2017-06-17 Memoria ve heart 02:45:15 l and Elia chronic Hypertensi kidney ve heart disease and with heart chronic failure kidney and stage disease 1 through with heart stage 4 failure chronic and stage kidney 1 through disease, stage 4 or chronic unspecifie kidney d chronic disease, kidney or disease unspecifie d chronic kidney disease Active Diagnosis 06/17/2017 [facility] Hypertensi Problem Active 2017-06-17 M emoria on 02:45:15 l essential [place] benign Hypertensi on essential benign Active Problem 06/17/2017 [facility] 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:45:15 l stenosis Elia of carotid Occlusion artery and without stenosis mention of of carotid cerebral artery infarction without mention of cerebral infarction Active Problem 06/17/2017 [facility] Insomnia, Problem Active 2017-06-17 Me moria unspecifie 02:45:15 l d [place] Insomnia, unspecifie d Active Problem 06/17/2017 [facility] Mitral Problem Active 2017-06-17 Memor ia valve 02:45:15 l disorders Mitral Sunni nn valve disorders Active Problem 06/17/2017 [facility] Other and Problem Active 2017-06-17 Me moria unspecifie 02:45:15 l d Other [place] hyperlipid and emia unspecifie d hyperlipid emia Active Problem 06/17/2017 [facility] Unspecifie Problem Active 2017-06-17 M emoria d 02:45:15 l hypothyroi Epifanio n dism Unspecifie d hypothyroi dism Active Problem 06/17/2017 [facility] Obesity, Problem Active 2017-06-17 Mem oria unspecifie 02:45:15 l d Obesity, Epifanio n unspecifie d Active Problem 06/17/2017 [facility] Other Problem Active 2017-06-17 Memor ia malaise 02:45:15 l and Other Elia fatigue malaise and fatigue Active Problem 06/17/2017 [facility] Shortness Problem Active 2017-06-17 Me moria of breath 02:45:15 l Elia Shortness of breath Active Problem 06/17/2017 [facility] Chest Problem Active 2017-06-17 Memor ia pain, 02:45:15 l unspecifie Chest Sunni nn d pain, unspecifie d Active Problem 06/17/2017 [facility] Chronic Problem Active 2017-06-17 Alek bethany diastolic 02:45:15 l (congestiv Chronic Her irvin e) heart diastolic failure (congestiv e) heart failure Active Problem 06/17/2017 [facility] Unspecifie Problem Active 2017-06-17 M emoria d 02:45:15 l constipati Epifanio n on Unspecifie d constipati on Active Problem 7 [facility] Impaired Problem Active 2017-06-17 Mem oria fasting 02:45:15 l blood Impaired Epifanio n sugar fasting blood sugar Active Problem 06/17/2017 [facility] Overactive Problem Active 2017-06-17 M emoria bladder 02:45:15 l Elia Overactive bladder Active Problem 06/17/2017 [facility] Anxiety Problem Active 2017-06-17 Alek bethany disorder, 02:45:15 l unspecifie Anxiety Her irvin d disorder, unspecifie d Active Problem 06/17/2017 [facility] Incontinen Problem Active 2017-06-17 M emoria ce without 02:45:15 l sensory Elia awareness Incontinen ce without sensory awareness Active Problem 06/17/2017 [facility] Encounter Problem Active 2017-06-17 Me moria for 02:45:15 l screening Elia for Encounter diabetes for mellitus screening for diabetes mellitus Active Problem 06/17/2017 [facility] Retention Problem Active 2017-06-17 Me moria of urine, 02:45:15 l unspecifie Epifanio n d Retention of urine, unspecifie d Active Problem 06/17/2017 [facility] Hypertensi Problem Active 2017-06-17 M emoria ve heart 02:45:15 l and [place] chronic Hypertensi kidney ve heart disease, and benign, chronic with heart kidney failure disease, and with benign, chronic with heart kidney failure disease and with stage I chronic through kidney stage IV, disease or stage I unspecifie through d stage IV, or unspecifie d Active Problem 06/17/2017 [facility] Depressive Problem Active 2017-06-17 M emoria disorder, 02:45:15 l not Elia elsewhere Depressive classified disorder, not elsewhere classified Active Problem 06/17/2017 [facility] Urinary Problem Active 2017-06-17 Alek bethany tract 02:45:15 l infection, Urinary Her irvin site not tract specified infection, site not specified Active Problem 06/17/2017 [facility] Unspecifie Problem Active 2017-06-17 M emoria d 02:45:15 l arthropath Epifanio n y, site Unspecifie unspecifie d d arthropath y, site unspecifie d Active Problem 06/17/2017 [facility] Frequency Problem Active 2017-06-17 Me moria of 02:45:15 l micturitio Epifanio n n Frequency of micturitio n Active Problem 06/17/2017 [facility] Morbid Problem Active 2017-06-17 Memor ia obesity 02:45:15 l Morbid Elia obesity Active Problem 06/17/2017 [facility] Female Problem Active 2017-06-17 Memor ia genuine 02:45:15 l stress Female Elia incontinen genuine ce stress incontinen ce Active Problem 7 [facility] Nonspecifi Problem Active 2017-06-17 M emoria c abnormal 02:45:15 l electrocar Epifanio n diogram Nonspecifi (ECG) c abnormal (EKG) electrocar diogram (ECG) (EKG) Active Problem 06/17/2017 [facility] Palpitatio Problem Active 2017-06-17 M emoria ns 02:45:15 l [place] Palpitatio ns Active Problem 7 [facility] Other Problem Active 2017-06-17 Memor ia specified 02:45:15 l cardiac Other Elia dysrhythmi specified as cardiac dysrhythmi as Active Problem 7 [facility] Upper Problem Active 2017-06-17 Memor ia respirator 02:45:15 l y tract Upper Elia hypersensi respirator tivity y tract reaction, hypersensi site tivity unspecifie reaction, d site unspecifie d Active Problem 06/17/2017 [facility] Unspecifie Problem Active 2017-06-17 M emoria d 02:45:15 l transient Elia cerebral Unspecifie ischemia d transient cerebral ischemia Active Problem 06/17/2017 [facility] Personal Problem Active 2017-06-17 Mem oria history of 02:45:15 l fall Personal Epifanio n history of fall Active Problem 06/17/2017 [facility] Acute Problem Active 2017-06-17 Memor ia upper 02:45:15 l respirator Acute Sunni nn y upper infections respirator of y unspecifie infections d site of unspecifie d site Active Problem 06/17/2017 [facility] CVA Diagnosis Active 2015-02-19 Mem oria 08:33:00 l CVA [place] Active [facility] Allergies, Adverse Reactions, Alerts This patient has no known allergies or adverse reactions. Family History Family Member Diagnosis Comments Start Date Stop Date Source Mother Family history of [facility] [place] pancreatic cancer [facility] ans Father Family history of [facility] [place] cardiac disorder Physicia ns Social History Social Habit Start Date Stop Date Quantity Comments Source Smoking 2016-09-27 00:00:00 2016-09-27 Elliot Rodrigez 00:00:00 Smoking Status Start Date Stop Date Source Former smoker [facility] Social History Heidy Rodrigez Medications Ordered Filled Start Stop Current Ordering [...] of 100 MCG 100 MCG 00:00: DAILY. [place] Oral Tablet Oral Tablet 00 [place] [...] [place] Eliquis Yes Melissa Ali 1 tablet M emoria 8-17 l 00:00: Elia Edarbyclor Edarbyclor Yes MUNACHI 1 QD TAKE 1 Univers 40-25 MG 40-25 MG 4-20 OKPALA TABLET BY ity of Oral Tablet Oral Tablet 00:00: N.P. MOUTH ONCE [place] 00 DAILY Physici ans Edarbyclor Yes Melissa Ali 1 tablet Memoria 3-28 l 00:00: Elia Edarbyclor Yes Melissa Ali 1 tablet Memoria 3-13 l 00:00: [place] Tikosyn No Melissa Ali TAKE ONE M emoria 3-01 CAPSULE BY l 03:45: MOUTH [place] 56 TWICE A DAY Dofetilide Yes Melissa Ali 1 capsule Memoria 2-28 l 00:00: [place] Doxazosin 2015-10 No Melissa Salmon TAKE ONE Memoria Mesylate 1-19 TABLET BY l 03:48: MOUTH Elia 47 DAILY Cipro Yes Bennett Ali 1 tablet Me moria 6-24 l 00:00: Elia 00 Pravastatin Pravastatin 2014-0 Yes MUNACHI 1 QD TAKE 1 Univers Sodium 40 Sodium 40 7-31 OKPALA TABLET i ty of MG Oral MG Oral 00:00: N.P. DAILY. [place] Tablet Tablet 00 Physici ans Viteyes Viteyes 0 Yes MUNACHI 1 QD TAKE 1 Un teresa Complete Complete 3-17 OKPALA CAPSULE it y of Oral Oral 00:00: N.P. DAILY. [place] Capsule Capsule 00 Physici ans Liothyronin Liothyronin Yes MUNACHI 1 QD TAKE 1 Univers e Sodium 5 e Sodium 5 3-17 OKPALA TABLET ity of MCG Oral MCG Oral 00:00: N.P. DAILY. [place] as Tablet Tablet 00 Physici ans Doxazosin Doxazosin Yes MUNACHI 1 QD TAKE 1 Univers Mesylate 4 Mesylate 4 3-17 OKPALA TABLET ity of MG Oral MG Oral 00:00: N.P. DAILY. [place] Tablet Tablet 00 Physici ans Warfarin 2015-0 No Notes: Memoria 2-04 Nurse to l 18:03: ensure Elia 00 documentat ion of patient education per [facility] policy. Avoid large intake of vitamin-K containing foods diet. (Same As: Coumadin) valsartan Yes 40 mg = 1 Mem oria 40 mg oral 2-04 tab, PO, l tablet 17:52: Q12H, # 60 Sunni nn 00 tab, 3 Refill(s) atorvastati Yes 40 mg = 1 M emoria n 40 mg 2-04 tab, PO, l oral tablet 17:52: Bedtime, # Elia 00 30 tab, 3 Refill(s) clopidogrel Yes 75 mg = 1 M emoria 75 mg oral 2-04 tab, PO, l tablet 17:52: Daily, # [place] 00 30 tab, 0 Refill(s) warfarin 5 Yes 5 mg, PO, Me moria mg oral 2-04 Daily, # 2 l tablet 17:52: tab, 0 Elia 00 Refill(s) Atenolol 25 Yes 12.5 mg = M emoria MG Oral 2-04 0.5 tab, l Tablet 17:52: PO, Daily, Sunni nn 00 0 Refill(s) valsartan No Notes: Memori a 2-04 Same as l 15:00: Diovan Elia 00 Protonix No Notes: Memoria 2-03 Tablet l 22:30: should not Elia 00 be chewed or crushed. (Same as: Protonix) Atenolol No Notes: Memoria 2-03 (Same l 15:00: As:Tenormi Elia 00 n) valsartan No 320 mg, Memor ia 11-25 Route: PO, l 15:00: Drug form: Elia 00 TAB, Daily, Dosing Weight 114.318, kg, Start date: 11/25/14 9:00:00, Duration: 30 day, Stop date: 12/24/14 9:00:00 Thyroxine No Notes: Memori a 2-03 Take 1 l 12:30: hour Elia 00 before or 2 hours after meal; Enteral feeds may interefere with the absorption of this medication . (Same as:Levothr oid, Synthroid) heparin, No Notes: Memoria porcine - porcine l 04:00: heparin Plavix No Notes: Memoria - (Same As: l 04:00: Plavix) Tylenol No Notes: Do Memor ia 11-25 not exceed l 03:16: 4 gm/day. (Same as: Tylenol) atorvastati No Notes: Alek bethany n 11-25 (Same as: l 03:00: Lipitor) Bupropion No Notes: (Do Me moria 11-24 not crush) l 23:00: (Same As: Wellbutrin SR) valsartan No 40 mg, Memori a 11-24 Route: PO, l 23:00: BID, Dosing Weight 114.318, kg, Start date: 11/24/14 17:00:00, Duration: 30 day, Stop date: 12/24/14 9:00:00 Triiodothyr No Notes: Alek bethany onine 11-24 (Same as: l 21:35: Cytomel) Atenolol No 50 mg = Memori a 100 MG Oral 11-24 0.5 tab, l Tablet 20:47: PO, BID, # Sunni nn 00 30 tab, 0 Refill(s) pravastatin No 40 mg = 1 M emoria 40 mg oral 2-02 tab, PO, l tablet 20:47: Bedtime, # Sunni nn 00 30 tab, 0 Refill(s) Furosemide No 40 mg = 1 Me moria 40 MG Oral 2-02 tab, PO, l Tablet 20:47: Daily, # Elia [Lasix] 00 30 tab, 0 Refill(s) spironolact No 25 mg = 1 M emoria one 25 mg 2-02 tab, PO, l oral tablet 20:47: Daily, # Renzo rmann 00 60 tab, 0 Refill(s) Potassium No 20 mEq = 1 Me moria Chloride 20 2-02 tab, PO, l MEQ 20:47: Daily, 0 [place] Extended 00 Refill(s) Release Tablet omeprazole Yes 40 mg = 1 Me moria 40 mg oral 2-02 cap, PO, l delayed 20:47: Daily, # Epifanio n release 00 30 cap, 0 capsule Refill(s) Metolazone No 5 mg = 1 Mem oria 5 MG Oral 2-02 tab, PO, l Tablet 20:47: Daily, # [place] 00 30 tab, 0 Refill(s) liothyronin Yes 10 Memori a e 5 mcg 2-02 microgram l oral tablet 20:47: = 2 tab, He rmann 00 PO, QAM, # 30 tab, 0 Refill(s) Fenofibrate No 160 mg = 1 Memoria 160 MG Oral 2-02 tab, PO, l Tablet 20:47: Daily, # [place] 00 30 tab, 0 Refill(s) Zolpidem Yes 10 mg = 1 Alek bethany tartrate 10 2-02 tab, PO, l MG Oral 20:47: Bedtime, Epifanio n Tablet 00 for sleep, [Ambien] 0 Refill(s) buPROPion Yes 150 mg = 1 Me moria 150 mg/24 2-02 tab, PO, l hours oral 20:47: BID, # 30 He rmann extended 00 tab, 0 release Refill(s) tablet Albuterol No 2 puff, Memor ia 0.09 2-02 INHALATION l MG/ACTUAT 20:47: , Q6H, as Her irvin Metered 00 needed for Dose wheezing, Inhaler # 17 gm, 0 [Ventolin] Refill(s) levothyroxi Yes 100 Memori a ne 100 mcg 2-02 microgram l (0.1 mg) 20:47: = 1 tab, Sunni nn oral tablet 00 PO, QAM, # 30 tab, 0 Refill(s) doxazosin 4 Yes 4 mg = 1 Me moria mg oral 2-02 tab, PO, l tablet 20:47: Daily, # [place] 00 30 tab, 0 Refill(s) valsartan No 320 mg = 1 Me moria 320 mg oral 2-02 tab, PO, l tablet 20:47: Daily, # [place] 00 30 tab, 0 Refill(s) Triiodothyr No Notes: Alek bethany onine - (Same as: l 20:09: Cytomel) Reglan No Notes: Memoria 2- (Same as: l 17:44: Reglan) Magnesium No 2 gm, 50 Alek bethany Sulfate 2-02 mL, Route: l 17:27: IVPB, Drug form: INJ, ONCE, Dosing Weight 114.318, kg, Total dose = 2 gm, Start date: 11/24/14 11:27:00, Duration: 1 doses or times, Stop date: 11/24/14 11:27:00 pneumococca No Notes: Alek bethany l capsular 11-24 (Same as: l polysacchar 15:00: Pneumovax H ermann sirena type 1 00 23) vaccine / Refrigerat pneumococca e l capsular polysacchar sirena type 10A vaccine / pneumococca l capsular polysacchar sirena type 11A vaccine / pneumococca l capsular polysacchar sirena type 12F vaccine / pneumococca l capsular polysacchar Saline No Notes: Memoria Flush 0.9% 11-24 (Same as: l 15:00: BD [place] 00 Posiflush) Versed No Notes: Memoria 11-24 (Same as: l 14:31: Versed) Pravastatin No 40 mg = 1 M emoria Sodium 40 11-24 tab, PO, l MG Oral 13:59: Bedtime, # Herm alexandra Tablet 00 30 tab, 0 [Pravachol] Refill(s) aspirin No 0 Memoria 11-24 Refill(s) l 13:59: [place] 00 Fenofibrate No 160 mg = 1 Memoria 160 MG Oral 2-02 tab, PO, l Tablet 13:59: Daily, # [place] 00 30 tab, 0 Refill(s) Atenolol No 0 Memoria 202 Refill(s) l 13:59: Elia 00 valsartan No 320 mg = 1 Me moria 320 mg oral 2-02 tab, PO, l tablet 13:59: Daily, # Elia 00 30 tab, 0 Refill(s) Potassium No 0 Memoria Chloride 20 2-02 Refill(s) l MEQ 13:59: Elia Extended 00 Release Tablet Metolazone No 5 mg = 1 Mem oria 5 MG Oral 2-02 tab, PO, l Tablet 13:59: Daily, # Elia 00 30 tab, 0 Refill(s) Furosemide No 40 mg = 1 Me moria 40 MG Oral 2-02 tab, PO, l Tablet 13:59: Daily, # [place] [Lasix] 00 30 tab, 0 Refill(s) liothyronin No 5 Memori a e 5 mcg 2-02 microgram l oral tablet 13:59: = 1 tab, He rmann 00 PO, Daily, # 30 tab, 0 Refill(s) Omeprazole No 0 Memoria 2-02 Refill(s) l 13:59: Elia 00 spironolact No 0 Memori a one 25 mg 2-02 Refill(s) l oral tablet 13:59: Epifanio n 00 Zofran No Notes: Memoria 2-02 (Same as: l 13:08: Zofran) Tylenol No Notes: Do Memor ia 2- not exceed l 06:48: 4 gm/day. (Same as: Tylenol) Sodium No 1,000 mL, Memori a Chloride 11-24 Rate: 75 l 0.154 05:06: ml/hr, Elia MEQ/ML 00 Infuse Injectable over: 13.3 Solution hr, Route: IV, Total Volume: 1,000, Start date: 11/23/14 23:06:00, Duration: 30 day, Stop date: 12/23/14 23:05:00 Saline No Notes: Memoria Flush 0.9% - (Same as: l 04:58: BD Posiflush) Acetaminoph No Notes: Do M emoria en 2-02 not exceed l 04:58: 4 gm/day. (Same as: Tylenol) Dofetilide Dofetilide Yes MUNACHI 1 capsule Univers 500 MCG 500 MCG OKPALA daily ity of Oral Oral N.P. [place] Capsule Capsule Physici ans Vitamin D-3 Vitamin D-3 Yes 1 tablet Univers CAPS CAPS daily [facility] of [place] [facility] ans Vascepa 1 Vascepa 1 Yes MUNACHI 1 capsule Univers GM Oral GM Oral OKPALA daily ity of Capsule Capsule N.P. [place] Physici ans Vital Signs Vital Name Observation Time Observation Value Comments Source BP Systolic 2019-07-23 152 mm[Hg] Location: [facility] 11:51:00 Position: [place] [facility] Sitting BP Diastolic 2019-07-23 76 mm[Hg] Location: [facility] 11:51:00 Position: [place] [facility]ician [facility] Sitting Height 2019-07-23 62 [in_us] [facility] 11:51:00 [place] [facility] Weight 2019-07-23 248.5 [lb_av] [facility] 11:51:00 [place] [facility] Body Mass Index 2019-07-23 45.45 kg/m2 [facility] Calculated 11:51:00 [place] [facility] Heart Rate 2019-07-23 66 /min Location: [place] [facility] 11:51:00 Brachial [place] [facility] Artery; Respitory Rate 2014-11-26 [facility] 17:54:00 Systolic (mm Hg) 2014-11-26 [facility] 17:54:00 Diastolic (mm Hg) 2014-11-26 [facility] ermann 17:54:00 Heart Rate 2014-11-26 [facility] Epifanio n 17:54:00 Temperature Oral 2014-11-26 97.5 F [facility] He rmann (F) 17:54:00 Temperature Oral 2014-11-26 97.5 F [facility] rmann (F) 14:10:00 Heart Rate 2014-11-26 [facility] Epifanio n 14:10:00 Diastolic (mm Hg) 2014-11-26 [facility] 14:10:00 Respitory Rate 2014-11-26 [facility] 14:10:00 Systolic (mm Hg) 2014-11-26 [facility] 14:10:00 Respitory Rate 2014-11-26 [facility] 12:09:00 Systolic (mm Hg) 2014-11-26 [facility] 12:00:00 Diastolic (mm Hg) 2014-11-26 [facility] 12:00:00 Heart Rate 2014-11-24 [facility] Epifanio n 15:45:00 Weight 2014-11-24 [facility] Ep[facility] n 06:47:00 BMI Calculated 2014-11-24 [facility] 06:47:00 Height 2014-11-24 162.56 cm Heidy Godfrey n 06:47:00 Procedures Procedure Date / Time Performing Clinician Source Performed History of Hysterectomy [facility] [facility] History of Appendectomy [facility] Decompression [facility] At Carpal Tunnel History of Esophagogastric Unive [facility] [place] [facility] Fundoplication History of Knee Surgery [facility] Right Physicians Knee replacement Heidy jimenez Plan of Care Planned Activity Planned Date Details Comments Source Future Appointment 2020-07-17 DAMIÁN BAILEY [facility] 11:30:00 Yulia MURRELL Encounters Start End Encounter Admission Attending Care Care Encounter Source Date/Time Date/Time Type Type Clinicians Facility Department ID 2019-07-23 2019-07-23 AppointBLUE [facility] - [id number] [facility] 11:30:00 11:30:00 t; LEO MURRELL NP [place] it[facility] NUTRITIONAL ASSISTANT Center Physici ans 2018-08-08 2018-08-08 Appointmen BLUE MURRELL UTP [id number] Univers 11:30:00 11:30:00 t; LEO MURRELL NP ity [place], [place] NUTRITIONAL ASSISTANT Physici ans 2017-08-08 2017-08-08 Appointmen BLUE MURRELL UTP [id number] Univers 11:30:00 11:30:00 t; LEO MURRELL NP ity of [place], [place] NUTRITIONAL ASSISTANT Physici ans 2017-06-16 2017-06-16 Outpatient Cardiolog Cardiology [id number] eClinic 12:43:00 12:43:00 y Consultants al Works Consultan 2017-06-08 2017-06-08 Outpatient Cardiolog Cardiology [id number] eClinic 15:30:00 15:30:00 y Consultants al Works Consultan 2017-02-03 2017-02-03 Outpatient Cardiolog Cardiology [id number] eClinic 11:44:00 11:44:00 y Consultants al Works Consultan 2017-01-17 2017-01-17 Outpatient Cardiolog Cardiology [id number] eClinic 09:18:00 09:18:00 y Consultants al Works Consultan 2016-12-20 2016-12-20 Outpatient [facility] [id number] eClinic 09:57:00 09:57:00 Cardiolog Cardiology a lWorks y Consultants Consultan 2016-09-09 2016-09-09 Outpatient [facility] [id number] eClinic 15:06:00 15:06:00 Cardiolog Cardiology a lWorks y Consultants Consultan 2016-04-15 2016-04-15 Outpatient [facility] [id number] eClinic 14:19:00 14:19:00 Cardiolog Cardiology a lWorks y Consultants Consultan 2016-04-15 2016-04-15 Outpatient [facility] [id number] eClinic 14:11:00 14:11:00 Cardiolog Cardiology a lWorks y Consultants Consultan 2016-03-11 2016-03-11 Outpatient [facility] [id number] eClinic 13:22:00 13:22:00 Cardiolog Cardiology a lWorks y Consultants Consultan 2016-01-29 2016-01-29 Outpatient [facility] [id number] eClinic 14:05:00 14:05:00 Cardiolog Cardiology a lWorks y Consultants Consultan 2014-11-23 2014-11-26 Outpatient DELPHINE Begum [facility] [id number] 22:23:00 16:46:00 Serina Martinez Results Test Description Test Time Test Comments Results Result Comments Source CHEM PANEL 2014-11-26 2[facility]1 [facility] 10:23:00 CHEM PANEL 2014-11-26 2.8 [facility] 10:23:00 CHEM PANEL 2014-11-26 40 [facility] 10:23:00 CHEM PANEL 2014-11-26 80 [facility] 10:23:00 CHEM PANEL 2014-11-26 18 [facility] 10:23:00 CHEM PANEL 2014-11-26 1.3 [facility] 10:23:00 CHEM PANEL 2014-11-26 136 [facility] 10:23:00 CHEM PANEL 2014-11-26 102 [facility] 10:23:00 CHEM PANEL 2014-11-26 3.5 [facility] 10:23:00 CHEM PANEL 2014-11-26 9.0 [facility] 10:23:00 CHEM PANEL 2014-11-26 25 [facility] 10:23:00 CHEM PANEL 2014-11-26 12.5 [facility] 10:23:00 HEMATOLOGY 2014-11-26 13.1 [facility] Sunni nn 10:23:00 HEMATOLOGY 2014-11-26 10:23:00 Test Item Value Reference Range Interpretation Comme nts MCH (test code = MCH) 32.4 pg 27.0-31.0 [facility] WuhoshuKNPNFASNRH1286-55-52 10:23:0093.5[facility] 2014-11-26 10:23:0034.6[facility] LfbdbvxOTSYIKXNEP6195-67-31 10:23:0033.6[facility] JofltqjCQVSQYLKZC9298-12-89 10:23:0011.6[facility] XwtngizAWFPJIYWGN8994-39-67 10:23:003.60[facility] VbigwksAZLOIXKSMU9391-56-19 10:23:004.6[facility] UMRXCSPYTI9007-72-07 10:23:008.3[facility] RlmibaxJMEQASYCDK5949-40-83 10:23:52817 [facility] BovyoddVIUFGDOQGU0249-19-77 10:23:0062.3[facility]annHEMATOLOGY 2014-11-26 10:23:001.2[facility] IywvyuiSMHHSZEZOU0673-01-17 10:23:000.4[facility] BdpmgtzISCTUJENFT5959-60-35 10:23:003.0[facility] GnherqnTKVAQTWXTC1191-30-35 10:23:0026.2[facility] DtwgusdCTQOPPDJGI5813-24-65 10:23:002.9[facility] BXRJXTIFLW6690-21-63 10:23:000.5[facility] PcpmnnvGIHHLPRUDK5617-98-92 10:23:008.0 [facility] LhmilerNQYNIIDIMS7713-39-27 10:23:000.1[facility] HermannCHEM PANEL 2014-11-25 07:04:003.1[facility]annCHEM LDVJX6593-74-96 07:04:0034[facility]annCHEM OUDFN2925-36-60 07:04:0025[facility]annCHEM EJOPB6824-63-70 07:04:0012.8[facility]annCHEM QQEJH5187-32-16 07:04:008.7[facility]annCHEM IZFIS2998-82-38 07:04:55504Bzhgwwzx HermannCHEM UKBDC5004-03-93 07:04:0023 [facility]annCHEM ZWOQR0461-45-13 07:04:81181Mvkoxgoq HermannCHEM PANEL 2014-11-25 07:04:0082[facility] HermannCHEM OKQDB8964-99-10 07:04:001.5[facility]annCHEM JEHZW2412-70-20 07:04:003.8[facility]annCHEM NGWWG1967-62-57 07:04:002.7[facility] YbeaogsWDVIPQYQPR8982-96-13 07:04:0063.1[facility] ENDYVDBWFC9640-48-08 07:04:0027.1[facility] SuxvhjuXCLQBFJRSF0565-65-43 07:04:00 7.2[facility] IuxqtavLSLDMOAWWM5757-97-91 07:04:000.1[facility]annHEMATOLOGY 2014-11-25 07:04:002.2[facility] MlklzeuDJYQZYGCNS9826-99-25 07:04:000.4[facility] MdvptsnJLMUTYEDWJ5012-28-71 07:04:003.1[facility] ZrmfsavOUGFGTIIYB2644-99-56 07:04:000.3[facility] OlkvxttOTCBHFOLYK0988-58-29 07:04:001.3[facility] XLQDETAWBT3167-92-78 07:04:008.5[facility] JrfyctkKWNHJFADOG7391-43-56 07:04:00 Test Item Value Reference Range Interpretation Comments MCH (test code = MCH) 31.6 pg 27.0-31.0 [facility] HhwithqIVZVGZBSCQ7764-26-05 07:04:0093.4[facility]annHEMATOLOGY 2014-11-25 07:04:0033.2[facility] SfbdvbvKIQUXXRSFD8140-57-02 07:04:90273Abzmmrcd ZalnnzqOXEWAVINFC9635-81-30 07:04:0013.1[facility] RwonaluVEQTAQXKDS1391-03-97 07:04:0033.8[facility] CcbqibbFJEBWHFVXA0141-22-00 07:04:0011.2[facility] XSDANKSFWZ0628-21-46 07:04:003.56[facility] BcpjxtzKAJHOVXZKT3784-78-18 07:04:00 4.9[facility] KjfehhyXGAYXMAIFU0695-17-62 07:04:001.14[facility]annHEMATOLOGY 2014-11-25 07:04:00 Test Item Value Reference Range Interpretation Comments PTT (test code = PTT) 28.5 s 22.9-35.8 [facility] SgegcgoXDQBXOGHYF1579-52-63 07:04:00 Test Item Value Reference Range Interpretation Comments PT (test code = PT) 14.7 s 12.0-14.7 [facility] HermannTHYROID ZWEBD5597-37-55 07:04:003.190[facility]annURINE AND IEFWX7601-65-77 08:06:007[facility]ann[facility] AND DSIFZ7641-60-20 08:06:002 [facility] HIJKQ1237-35-72 08:06:00Negative (11/24/14 2:06 AM) [facility] VHNGG6891-73-22 08:06:00Negative (11/24/14 2:06 AM) [facility] LRDWE8409-87-81 08:06:00Negative (11/24/14 2:06 AM) [facility] IUYBX2242-82-16 08:06:006.5[facility] AND RFKAX3508-11-10 08:06:00Negative *NA*(11/24/14 2:06 AM)[facility] IBJNU6673-23-23 08:06:001.009[facility] AND IWULS3255-75-33 08:06:00 Clear (11/24/14 2:06 AM)[facility] FJOQI3305-32-70 08:06:00Yellow *NA*(11/24/14 2:06 AM)[facility]annCHEM BDSRQ6329-63-08 07:51:001.2[facility] HermannCHEM MTDQM5135-04-42 07:51:003.2[facility] HermannCHEM HNVAH8617-98-14 07:51:0022[facility] HermannCHEM VINID4873-74-11 07:51:009.8[facility] HermannCHEM PURRG9895-31-20 07:51:0029[facility] HermannCHEM NNMEI7445-37-27 07:51:13505 [facility]annCHEM ZKMZC8229-62-56 07:51:008.7[facility] HermannCHEM PANEL 2014-11-24 07:51:0029[facility] HermannCHEM KTUYX3595-39-52 07:51:0017[facility] HermannCHEM WTAPX0672-44-66 07:51:003.7[facility] HermannCHEM YUKTP4272-93-39 07:51:006.9[facility] HermannCHEM QSLWK7483-08-39 07:51:0028[facility] HermannCHEM BWYLV7279-52-35 07:51:54283Udxryuxt HermannCHEM XNVLF5347-43-39 07:51:003.8 [facility]annCHEM NFAMB5931-24-30 07:51:90886Khiqgjzv HermannCHEM PANEL 2014-11-24 07:51:001.7[facility] HermannCHEM CQBTV1572-39-02 07:51:0037[facility] HermannCHEM GSBRT6834-56-72 07:51:0037[facility] HermannCHEM VKGXX6036-22-62 07:51:000.4[facility] XqouoskWYAGRZVFYE5038-03-86 07:51:000.4[facility] XYVUJDDJNC9820-16-93 07:51:001.1[facility] RsuwoewKDTIJJYHIJ9359-58-45 07:51:000.1 [facility] SmbwsynLFLICUXILR0112-00-12 07:51:0070.9[facility] HermannHEMATOLOGY 2014-11-24 07:51:006.7[facility] UzwncnyVTDMUAMONN6978-04-97 07:51:0019.7[facility] DjljxggLGNUBCHLFL0623-93-80 07:51:002.3[facility] TswtktsVZTFIRQTEU8370-12-42 07:51:004.0[facility] UsfddwsNOAKTRKCIE7837-70-09 07:51:000.4[facility] RYLWQPNIBS8814-00-75 07:51:00 Test Item Value Reference Range Interpretation Comments PTT (test code = PTT) 28.2 s 22.9-35.8 [facility] CjfdwehDTVHPXNMVM3614-33-79 07:51:00 Test Item Value Reference Range Interpretation Comments PT (test code = PT) 13.9 s 12.0-14.7 [facility] UgqufggORFEKVVERF5652-90-45 07:51:001.07[facility] HermannHEMATOLOGY 2014-11-24 07:51:008.8[facility] GughrvgPOHLQLHCRP0972-05-58 07:51:005.7[facility] TtuzlevQSKELACRDE3201-08-03 07:51:0094.9[facility] KirohzfVHNZJZLYPH6501-62-09 07:51:003.73[facility] XdpkvmhOJGCDAHUHR4174-78-60 07:51:0013.3[facility] JQUMLACEEH9836-06-49 07:51:0012.1[facility] AylveppXWJQEJBKTW2735-19-85 07:51:00 35.3[facility] YprvuamHVYOOLYVRU1826-38-14 07:51:87911Ejbhylgz HermannHEMATOLOGY 2014-11-24 07:51:0034.2[facility] AeldgyiQXIRUZJSXY1561-58-74 07:51:00 Test Item Value Reference Range Interpretation Comments MCH (test code = MCH) 32.5 pg 27.0-31.0 [facility] AismfxbKWISYS3109-91-61 07:51:002.81[facility] KgwebhuCYMYTQ5929-17-77 07:51:0026[facility] TehzsznJFALQG2759-66-81 07:51:0059Mem[facility] HermannLIPIDS 2014-11-24 07:51:93853Svatckfa KfjringRIUUEC0272-25-54 07:51:0047[facility] WfoaxegJZNGDH7159-53-16 07:51:22822Kbhasrxz HermannSPECIAL ALOVFRANS1783-23-52 07:51:005.6[facility]
[2020-04-21 07:12] VITALS: BMI 41.1
[2020-04-21 07:32] LABS: Absolute Lymphocytes (CBC) 1.2 K/uL (0.7-4.9); Basophils % 0.4 % (0-1.3); Hematocrit 39.9 % (36.0-45.0); Lymphocytes % 21.1 % (15.3-44.8); MPV 7.4 fL (7.6-11.3); RBC Red Blood Cell Count 4.46 M/uL (3.86-4.86)
[2020-04-21] MEDS ORDERED: NA CHLORIDE 0.9% 500 ML ONE (07:38)
[2020-04-21 07:42] LABS: Potassium 3.4 mmol/L (3.5-5.1)
[2020-04-21 07:45] LABS: Protime INR 1.37
[2020-04-21] MEDS ORDERED: ATROPINE SULF 1 MG/10 ML SYR IV ONE (08:18)
[2020-04-21] MEDS ORDERED: FLUMAZENIL 0.1 MG/ML (5 mL VIAL) IV ONE (08:18)
[2020-04-21] MEDS ORDERED: MIDAZOLAM HCL 5 MG/5 ML INJ ONE ×2 (08:18→08:21)
[2020-04-21 10:42] VITALS: TEMP 97.3
[2020-04-21 11:31] VITALS: BP 152/67; O2SAT 100
--- NOTE | 2020-04-21 12:33 | EKG ---
Test Date: 2020-04-21 Test Time: 09:21:07 Hand Model: TANJA MEASUREMENT RESULTS: Intervals: Rate: 70 MD: 228 QRSD: 92 QT: 456 QTc: 492 Mcmillan: P: 79 MD: 228 QRS: 64 T: -4 INTERPRETIVE STATEMENTS: Sinus rhythm with 1st degree AV block Nonspecific ST and T wave abnormality Prolonged QT Abnormal ECG Compared to ECG 03/09/2020 18:26:17 ST (T wave) deviation now present Prolonged QT interval now present Electronically Signed On 04-21-20 12:33:04 CDT by Evan Dunn
--- NOTE | 2020-04-22 22:19 | OP ---
Date of Procedure: 04/21/2020 Surgeon: Evan Dunn MD Roller Stainer: Susan Sparks. Procedure: Direct current cardioversion. Indication: Atrial fibrillation that is recurrent. History Of Present Illness: Ms. You is an 79-year-old woman. She has had atrial fibrillation __ in the past. Has been in sinus rhythm, on Tikosyn and atenolol for quite a while, but came back with recurrent atrial fibrillation, rate of 130, very symptomatic. Admitted to the hospital for cardioversion. She has been taking Eliquis all along. She was given 5 mg of Versed for IV sedation . She received 1 shock with 200 joules and converted to sinus rhythm. There were no complications. Anesthesia: Total conscious sedation was 30 minutes. Final Diagnosis: Successful cardioversion from atrial fibrillation to sinus rhythm. Disposition And Condition: The patient will go home today when she wakes up. She will continue her present regimen at home. I will see her in the office in 2 weeks. CIRILO/JAMIL Voice ID: [id number] Report ID: [id number]
== END 2020-04-21 11:27 | disposition home or self-care (01) ==
LOC: CCL 06:29
DX: I48.91 Unspecified atrial fibrillation (principal); I10 Essential (primary) hypertension; E78.5 Hyperlipidemia, unspecified; Z88.8 Allergy status to other drugs, medicaments and biological substances
CPT/HCPCS: 93005; 85025; 80048; 36415; 85610; 85730; 92960; J2250; J7040

== ENCOUNTER 2020-05-30 13:33 | Emergency (ER) | payer OTHER, MEDICARE ==
--- OUTSIDE RECORDS SUMMARY | 2020-05-30 13:38 | XMS REPORT | Continuity of Care Document ---
:1940 Author Organization [employer] [facility] Care Team Providers Name Role Phone [employer] [facility] Unavailable Un available Problems Problem Status Onset Classification Date Comments Sourc e Date Reported ISCHEMIC STROKE Active [address] LFLT TRANSFER[id number] Atrial fibrillation Active Problem 06/17/2017 [place] [facility] Consult Personal history of Active Problem 06/17/2017 [place] transient ischemic C ardiology attack [TIA], and Co nsult cerebral infarction without residual deficits Palpitations Active Problem 06/17/2017 [place] [facility] Consult Transient cerebral Active Problem 06/17/2017 [place] ischemic attack, Car diology unspecified Consult Bradycardia, Active Problem 06/17/2017 [place] unspecified Cardiolo gy Consult Personal history of Active Problem 06/17/2017 [place] transient ischemic C ardiology attack (TIA), and Co nsult cerebral infarction without residual deficits History of falling Active Problem 06/17/2017 [place] [facility] Consult Abnormal Active Problem 06/17/2017 [place] electrocardiogram Ca rdiology [ECG] [EKG] Consult Morbid (severe) Active Problem 06/17/2017 [place] obesity due to excess Cardiology calories Consult Arthropathy, Active Problem 06/17/2017 [place] unspecified Cardiolo gy Consult Major depressive Active Problem 06/17/2017 [place] disorder, single Car diology episode, unspecified Consult Chest pain, Active Problem 06/17/2017 [place] unspecified Cardiolo gy Consult Shortness of breath Active Problem 06/17/2017 [place] [facility] Consult Constipation, Active Problem 06/17/2017 [place] unspecified Cardiolo gy Consult Hypothyroidism, Active Problem 06/17/2017 [place] unspecified Cardiolo gy Consult Hyperlipidemia, Active Problem 06/17/2017 [place] unspecified Cardiolo gy Consult Chronic kidney Active Problem 06/17/2017 [place] disease, unspecified Cardiology Consult Insomnia, unspecified Active Problem 06/17/2017 [place] [facility] Consult Nonrheumatic mitral Active Problem 06/17/2017 [place] (valve) insufficiency Cardiology Consult Paroxysmal atrial Active Problem 06/17/2017 [place] fibrillation Cardiol ogy Consult 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 Consult Essential (primary) Active Problem 06/17/2017 [place] hypertension Cardiol ogy Consult Chronic kidney Active Problem 06/17/2017 [facility] ton disease, Stage III C ardiology (moderate) Consult Congestive 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 [place] failure, unspecified Cardiology Consult Hypertensive heart and Active Diagnosis 06/17/2017 [place] chronic kidney disease Cardiology with heart failure and Consult stage 1 through stage 4 chronic kidney disease, or unspecified chronic kidney disease Hypertension essential Active Problem 06/17/2017 [place] benign Cardiology Consult Occlusion and stenosis Active Problem 06/17/2017 [place] of carotid artery Ca rdiology without mention of C onsult cerebral infarction Insomnia, unspecified Active Problem 06/17/2017 [place] [facility] Consult Mitral valve disorders Active Problem 06/17/2017 [place] [facility] Consult Other and unspecified Active Problem 06/17/2017 [place] hyperlipidemia Cardi ology Consult Unspecified Active Problem 06/17/2017 [place] hypothyroidism Cardi ology Consult Obesity, unspecified Active Problem 06/17/2017 [place] [facility]iology Consult Other malaise and Active Problem 06/17/2017 [place] fatigue Cardiology Consult Shortness of breath Active Problem 06/17/2017 [place] [facility] Consult Chest pain, Active Problem 06/17/2017 [place] unspecified Cardiolo gy Consult Chronic diastolic Active Problem 06/17/2017 [place] (congestive) heart C ardiology failure Consult Unspecified Active Problem 06/17/2017 [place] constipation Cardiol ogy Consult Impaired fasting blood Active Problem 06/17/2017 [place] sugar Cardiology Consult Overactive bladder Active Problem 06/17/2017 [place] [facility] Consult Anxiety disorder, Active Problem 06/17/2017 [place] unspecified Cardiolo gy Consult Incontinence without Active Problem 06/17/2017 [place] sensory awareness Ca rdiology Consult Encounter for Active Problem 06/17/2017 [place] screening for diabetes Cardiology mellitus Consult Retention of urine, Active Problem 06/17/2017 [place] unspecified Cardiolo gy Consult Hypertensive heart and Active Problem 06/17/2017 [place] chronic kidney Cardi ology disease, benign, with Consult heart failure and with chronic kidney disease stage I through stage IV, or unspecified Depressive disorder, Active Problem 06/17/2017 [place] not elsewhere Cardio logy classified Consult Urinary tract Active Problem 06/17/2017 [place] infection, site not Cardiology specified Consult Unspecified Active Problem 06/17/2017 [place] arthropathy, site Ca rdiology unspecified Consult Frequency of Active Problem 06/17/2017 [place] micturition Cardiolo gy Consult Morbid obesity Active Problem 06/17/2017 [facility] Cardiology Consult Female genuine stress Active Problem 06/17/2017 [place] incontinence Cardiol ogy Consult Nonspecific abnormal Active Problem 06/17/2017 [place] electrocardiogram Ca rdiology (ECG) (EKG) Consult Palpitations Active Problem 06/17/2017 [place] Cardiology Consult Other specified Active Problem 06/17/2017 [place] cardiac dysrhythmias Cardiology Consult Upper respiratory Active Problem 06/17/2017 [place] tract hypersensitivity Cardiology reaction, site Consu lt unspecified Unspecified transient Active Problem 06/17/2017 [place] cerebral ischemia Ca rdiology Consult Personal history of Active Problem 06/17/2017 [place] fall Cardiology Consult Acute upper Active Problem 06/17/2017 [place] respiratory infections Cardiology of unspecified site Consult Gastroesophageal Resolved Problem 11/28/2014 [facility] reflux disease Medic al (disorder) Center Hypercholesterolemia Resolved Problem 11/28/2014 [facility] (disorder) [facility] Hyperlipidemia Resolved Problem 11/28/2014 [facility] (disorder) [facility] Hypertensive disorder, Resolved Problem 11/28/2014 [facility] systemic arterial Me dical (disorder) Center Hypothyroidism Resolved Problem 11/28/2014 [facility] (disorder) [facility] CVA Active [facility] Medications Medication Details Route Status Patient Ordering Order Source Instructions Provider Date Eliquis 1 tablet Orally Active 5 MG Orally [facility] [place] twice a day 2016 Cardiology Consult Edarbyclor 1 tablet Orally Active 40-25 MG [facility] [place] Orally Once a 2017 Cardiology day Consult Edarbyclor 1 tablet Orally Active 40-25 MG [facility] [place] Orally Once a 2017 Cardiology day Consult Dofetilide 1 capsule Orally Active 500 MCG [facility] [place] Orally Twice 2017 Cardiology a day Consult Cipro 1 tablet Orally Active 500 MG Orally [facility] [place] Twice a day 2016 Cardiology Consult Warfarin Notes: Nurse Inactive 11/26/ [facility] to ensure 2015 Medical documentation Center [...] valsartan Notes: Same Inactive as [place] 2014 [facility] Protonix Notes: Tablet No Longer [place] should not be Active 2014 [facility] chewed or Center crushed. (Same as: Protonix) Atenolol Notes: (Same No Longer [place] As:Tenormin) Active 2014 [facility] valsartan 320 mg, No Longer [place] [...] [place] Longer [place] porcine Active 2014 [facility] heparin [facility] Plavix Notes: (Same No Longer [place] As: Plavix) Active 2014 [facility] Tylenol Notes: Do not No Longer [place] exceed 4 Active 2014 Medical gm/day. Center (Same as: Tylenol) atorvastatin Notes: (Same No Longer [place] as: Lipitor) Active 2014 [facility] Bupropion Notes: (Do No Longer [place] not crush) Active 2014 Medical (Same As: [facility] Wellbutrin SR) valsartan 40 mg, Route: Inactive [place] PO, BID, 2015 Medical Dosing Weight Center 114.318, kg, Start date: 11/24/14 17:00:00, Duration: 30 day, Stop date: 12/24/14 9:00:00 Triiodothyronine Notes: (Same No Longer [place] as: Cytomel) Active 2014 [facility] Atenolol 100 MG 50 mg = 0.5 No Longer [facility] Oral Tablet tab, PO, BID, Active 2014 Medica l # 30 tab, 0 Center Refill(s) pravastatin 40 mg 40 mg = 1 No Longer [facility] oral tablet tab, PO, Active 2014 Medical Bedtime, # 30 Center tab, 0 Refill(s) Furosemide 40 MG 40 mg = 1 No Longer [facility] Oral Tablet tab, PO, Active 2014 Medical [Lasix] Daily, # 30 Center tab, 0 Refill(s) spironolactone 25 25 mg = 1 No Longer [facility] mg oral tablet tab, PO, Active 2014 Medical Daily, # 60 Center tab, 0 Refill(s) Potassium 20 mEq = 1 No Longer [place] Chloride 20 MEQ tab, PO, Active 2014 Medical Extended Release Daily, 0 Center Tablet Refill(s) omeprazole 40 mg 40 mg = 1 [place] oral delayed cap, PO, 2015 Medical release capsule Daily, # 30 Cent er cap, 0 Refill(s) Metolazone 5 MG 5 mg = 1 tab, No Longer [facility] Oral Tablet [...] [place] MG/ACTUAT Metered INHALATION, Active 2014 [place] Dose Inhaler Q6H, as Center [Ventolin] needed for wheezing, # 17 gm, 0 Refill(s) levothyroxine 100 100 microgram Active [facility] mcg (0.1 mg) oral = 1 tab, PO, 2014 M edical tablet QAM, # 30 Center tab, 0 Refill(s) doxazosin 4 mg 4 mg = 1 tab, Active [facility] oral tablet PO, Daily, # 2015 Medical 30 tab, 0 Center Refill(s) valsartan 320 mg 320 mg = 1 No Longer [facility] oral tablet tab, PO, Active 2014 Medical Daily, # 30 Center tab, 0 Refill(s) Triiodothyronine Notes: (Same Inactive [facility] [place] [facility] as: Cytomel) [address] [place] [address] Reglan Notes: (Same Inactive [facility] as: Reglan) [address] [place] [address] Magnesium Sulfate 2 gm, 50 mL, Inactive [...] Saline Flush 0.9% Notes: (Same No Longer [facility] as: BD Active 2014 [facility] Posiflush) Center Versed Notes: (Same Inactive [facility] as: Versed) [address] [place] [address] Pravastatin 40 mg = 1 Inactive [facility] Sodium 40 MG Oral tab, PO, 2015 Medic al Tablet Bedtime, # 30 Center [Pravachol] tab, 0 Refill(s) aspirin 0 Refill(s) Inactive [address] Fenofibrate 160 160 mg = 1 Inactive [place] Oral Tablet tab, PO, 2015 Medical Daily, # 30 Center tab, 0 Refill(s) Atenolol 0 Refill(s) Inactive [address] valsartan 320 mg 320 mg = 1 Inactive [facility] oral tablet tab, PO, 2014 Medical Daily, # 30 Center tab, 0 Refill(s) Potassium 0 Refill(s) Inactive [facility] Chloride 20 MEQ 2015 [facility] Extended Release Center Tablet Metolazone 5 MG 5 mg = 1 tab, Inactive [place] Oral Tablet PO, Daily, # 2015 Medical 30 tab, 0 Center Refill(s) Furosemide 40 MG 40 mg = 1 Inactive [place] Oral Tablet tab, PO, 2014 Medical [Lasix] Daily, # 30 Center tab, 0 Refill(s) liothyronine 5 5 microgram = Inactive [facility] mcg oral tablet 1 tab, PO, 2014 Medic al Daily, # 30 Center tab, 0 Refill(s) Omeprazole 0 Refill(s) Inactive [address] spironolactone 25 0 Refill(s) Inactive [facility] [place] [facility] mg oral tablet [address] [place] [address] Zofran Notes: (Same Inactive [facility] as: Zofran) [address] [place] [address] Tylenol Notes: Do not Inactive [facility] exceed 4 2015 Medical gm/day. Center (Same as: Tylenol) Sodium Chloride 1,000 mL, No Longer [place] 0.154 MEQ/ML Rate: 75 Active 2014 Medical Injectable ml/hr, Infuse Center Solution over: 13.3 hr, Route: IV, Total Volume: 1,000, Start date: 11/23/14 23:06:00, Duration: 30 day, Stop date: 12/23/14 23:05:00 Saline Flush 0.9% Notes: (Same No Longer [facility] as: BD Active 2014 Medical Posiflush) Center Acetaminophen Notes: Do not No Longer [facility] exceed 4 Active 2014 Medical gm/day. [...] Not Given Falcao Alexandre as 23-valent vaccine [facility] Results Order Name Results Value Reference Date Interpretation Comments Katarina rce Range CHEM PANEL Magnesium Lvl 2.1 1.8 - 2.4 11/26 [place] [facility] CHEM PANEL Phosphorus 2.8 2.5 - 4.5 11/26 [facility] CHEM PANEL eGFR 40 11/26 <sup>1</sup>Re [...] values reflect the clinical guidelines<br/ >of the [place] [employer]. CHEM PANEL BUN 18 7 - 22 11/26 [facility] CHEM PANEL Creatinine 1.3 0.5 - 1.4 11/26 [facility] CHEM PANEL Sodium Lvl 136 135 - 145 11/26 [facility] CHEM PANEL Chloride Lvl 102 95 - 109 11/26 [place] [facility] CHEM PANEL Potassium Lvl 3.5 3.5 - 5.1 11/26 [facility] CHEM PANEL Calcium Lvl 9.0 8.5 - 10.5 02 [facility] CHEM PANEL CO2 25 24 - 32 02 [facility] CHEM PANEL AGAP 12.5 10.0 - 02/ 20.0 [facility] HEMATOLOGY RDW 13.1 11.5 - 02/ 14.5 /2014 [facility] HEMATOLOGY MCH 32.4 27.0 - 02 31.0 [facility] HEMATOLOGY MCV 93.5 80.0 - 02 98.0 /2014 [facility] HEMATOLOGY MCHC 34.6 32.0 - 02 36.0 [facility] HEMATOLOGY Hct 33.6 36.0 - 02 48.0 /2014 [facility] HEMATOLOGY Hgb 11.6 12.0 - 02 16.0 /2014 [facility] HEMATOLOGY RBC 3.60 4.20 - 02 5.40 /2014 [facility] HEMATOLOGY WBC 4.6 3.7 - 10.4 02 [facility] HEMATOLOGY MPV 8.3 7.4 - 10.4 02/ [facility] HEMATOLOGY Platelet 149 133 - 450 02 [facility] HEMATOLOGY Segs 62.3 45.0 - 02 75.0 [facility] HEMATOLOGY Lymphocytes # 1.2 1.0 - 5.5 02 [facility] HEMATOLOGY Monocytes # 0.4 0.0 - 0.8 02 [facility] HEMATOLOGY Eosinophils 3.0 0.0 - 4.0 02 [facility] HEMATOLOGY Lymphocytes 26.2 20.0 - 02/ 40.0 [facility] HEMATOLOGY Segs-Bands # 2.9 1.5 - 8.1 11/26 [facility] HEMATOLOGY Basophils 0.5 0.0 - 1.0 02 [facility] HEMATOLOGY Monocytes 8.0 2.0 - 12.0 02/ [facility] HEMATOLOGY Eosinophils # 0.1 0.0 - 0.5 02 [facility] CHEM PANEL Phosphorus 3.1 2.5 - 4.5 0203 [facility] CHEM PANEL eGFR 34 11/25 <sup>2</sup>Re [place] Comment: Medical The eGFR is Center calculated [...] PANEL CO2 25 24 - 32 11/25 [facility] CHEM PANEL AGAP 12.8 10.0 - 11/25 [facility] 20. [facility] CHEM PANEL Calcium Lvl 8.7 8.5 - 10.5 11/25 [facility] CHEM PANEL Chloride Lvl 104 95 - 109 11/25 [facility] CHEM PANEL BUN 23 7 - 22 11/25 [facility] CHEM PANEL Sodium Lvl 138 135 - 145 11/25 [facility] CHEM PANEL Glucose Lvl 82 70 - 99 11/25 <sup>5</sup>In terpretive Medical Data: Adult Center reference range values reflect the clinical guidelines<br/ >of the [place] [employer]. CHEM PANEL Creatinine 1.5 0.5 - 1.4 11/25 [facility] CHEM PANEL Potassium Lvl 3.8 3.5 - 5.1 11/25 [facility] CHEM PANEL Magnesium Lvl 2.7 1.8 - 2.4 11/25 [facility] HEMATOLOGY Segs 63.1 45.0 - 11/25 [facility] 75.0 [facility] HEMATOLOGY Lymphocytes 27.1 20.0 - 02 [place] 40.0 /2014 [facility] HEMATOLOGY Monocytes 7.2 2.0 - 12.0 11/25 [facility] HEMATOLOGY Eosinophils # 0.1 0.0 - 0.5 11/25 [facility] HEMATOLOGY Eosinophils 2.2 0.0 - 4.0 / [facility] HEMATOLOGY Basophils 0.4 0.0 - 1.0 11/25 [facility] HEMATOLOGY Segs-Bands # 3.1 1.5 - 8.1 11/25 [facility] HEMATOLOGY Monocytes # 0.3 0.0 - 0.8 11/25 [facility] HEMATOLOGY Lymphocytes # 1.3 1.0 - 5.5 11/25 [facility] HEMATOLOGY MPV 8.5 7.4 - 10.4 11/25 [facility] HEMATOLOGY MCH 31.6 27.0 - 11/25 31.0 [facility] HEMATOLOGY MCV 93.4 80.0 - 11/25 98.0 /2014 [facility] HEMATOLOGY Hct 33.2 36.0 - 11/25 [place] 48.0 /2014 [facility] HEMATOLOGY Platelet 151 133 - 450 11/25 [facility] HEMATOLOGY RDW 13.1 11.5 - 11/25 14.5 /2014 [facility] HEMATOLOGY MCHC 33.8 32.0 - 11/25 36.0 /2014 [facility] HEMATOLOGY Hgb 11.2 12.0 - 02 16.0 [facility] HEMATOLOGY RBC 3.56 4.20 - 02 [place] 5.40 /2014 [facility] HEMATOLOGY WBC 4.9 3.7 - 10.4 11/25 [facility] HEMATOLOGY INR 1.14 0.85 - 02 [...] Seconds HEMATOLOGY PT 14.7 12.0 - 11/25 [facility] 14.7 [facility] THYROID TSH 3.190 0.360 - 11/25 [place] PANEL 3.740 /2014 [facility] URINE AND UA <=1.0 0.1 - 1.0 11/[address] [facility] Urobilinogen mg/dL /2014 [facility] URINE AND UA Renal Epi 7 <=0 /LPF 11/[address] [facility] /2014 [facility] URINE AND UA Sq Epi Moderate Few /LPF 11/24 [facility] STOOL /LPF /2014 [facility] URINE AND UA WBC 2 0 - 5 11/[address] [facility] [address] [place] [address] URINE AND UA Nitrite Negative Negative 11/[address] [facility] (11/24/14 2:06 AM) /2014 [facility] URINE AND UA Leuk Est Negative Negative 11/[address] [facility] (11/24/14 2:06 AM) /2014 [facility] URINE AND UA Blood Negative Negative 11/[address] [facility] (11/24/14 2:06 AM) /2014 [facility] URINE AND UA Protein Negative Negative 11/[address] [facility] mg/dL mg/dL /2014 [facility] URINE AND UA pH 6.5 5.0 - 8.0 11/[address] [facility] [address] [place] [address] URINE AND UA Glucose Negative Negative 11/[address] [facility] mg/dL mg/dL [facility] URINE AND UA Bili Negative Negative 11/[address] [facility] *NA* /2014 [facility] (11/24/14 2:06 AM) [facility] URINE AND UA Ketones Negative Negative 11/[address] [facility] mg/dL mg/dL /2014 [facility] URINE AND UA Spec Grav 1.009 <=1.030 11/[address] [facility] /[address] [place] [address] URINE AND UA Turbidity Clear Clear 11/[address] [facility] (11/24/14 2:06 AM) /2014 [facility] URINE AND UA Color Yellow Yellow 11/[address] [facility] *NA* /2014 [facility] (11/24/14 2:06 AM) [facility] CHEM PANEL A/G Ratio 1.2 0.7 - 1.6 11/24 [facility] [address] [place] [address] CHEM PANEL Globulin 3.2 2.0 - 4.0 11/24 [facility] CHEM PANEL B/C Ratio 22 6 - 25 11/24 [facility] CHEM PANEL AGAP 9.8 10.0 - 02 [facility] 20.0 /2014 [facility] CHEM PANEL eGFR 29 02 <sup>3</sup>Re [facility] sult Comment: Medical The eGFR is [...] values reflect the clinical guidelines<br/ >of the [place] [employer]. CHEM PANEL Calcium Lvl 8.7 8.5 - 10.5 11/24 [facility] CHEM PANEL ALT 29 0 - 65 11/24 2014 [facility] CHEM PANEL AST 17 0 - 37 11/24 [facility]2014 [facility] CHEM PANEL Albumin Lvl 3.7 3.5 - 5.0 11/24 [facility] CHEM PANEL Total Protein 6.9 6.4 - 8.4 11/24 [facility] CHEM PANEL CO2 28 24 - 32 11/24 [facility]2014 [facility] CHEM PANEL Chloride Lvl 103 95 - 109 11/24 [facility] CHEM PANEL Potassium Lvl 3.8 3.5 - 5.1 11/24 [facility] CHEM PANEL Sodium Lvl 137 135 - 145 11/24 [facility]2014 [facility] CHEM PANEL Creatinine 1.7 0.5 - 1.4 02 [facility] Lvl [facility] CHEM PANEL BUN 37 7 - 22 11/24 [facility] CHEM PANEL Alk Phos 37 39 - 136 11/24 [facility] CHEM PANEL Bili Total 0.4 0.2 - 1.3 11/24 [facility] [address] [place] [address] HEMATOLOGY Monocytes # 0.4 0.0 - 0.8 11/24 [facility] s [facility] HEMATOLOGY Lymphocytes # 1.1 1.0 - 5.5 11/24 [facility] HEMATOLOGY Eosinophils # 0.1 0.0 - 0.5 11/24 [facility] HEMATOLOGY Segs 70.9 45.0 - 02 [facility] 75.0 [facility] HEMATOLOGY Monocytes 6.7 2.0 - 12.0 11/24 [facility] HEMATOLOGY Lymphocytes 19.7 20.0 - 11/24 40.0 [facility] HEMATOLOGY Eosinophils 2.3 0.0 - 4.0 11/24 [facility] HEMATOLOGY Segs-Bands # 4.0 1.5 - 8.1 11/24 [facility] HEMATOLOGY Basophils 0.4 0.0 - 1.0 11/24 [facility] HEMATOLOGY PTT 28.2 22.9 - 02 <sup>10</sup>I [facility] as 35.8 nterpretive Medical Data: Heparin Center Therapeutic Range: 57 - 92 [place] HEMATOLOGY PT 13.9 12.0 - 02 14.7 [facility] HEMATOLOGY INR 1.07 0.85 - 11/24 <sup>8</sup>In [facility] as 1.17 terpretive Medical Data: Center RECOMMENDED RANGES FOR PROTIME INR:
2.0-3.0 for most medical and surgical thromboembolic states.
2.5-3.5 for artificial heart valves and recurrent embolism.

INR SHOULD BE USED ONLY FOR PATIENTS ON STABLE ANTICOAGULANT THERAPY. HEMATOLOGY MPV 8.8 7.4 - 10.4 02 [facility] HEMATOLOGY WBC 5.7 3.7 - 10.4 11/[address] HEMATOLOGY MCV 94.9 80.0 - 02/02 [facility] 98.0 /2014 [facility] HEMATOLOGY RBC 3.73 4.20 - 11/24 [facility] 5.40 /2014 [facility] HEMATOLOGY RDW 13.3 11.5 - 11/24 [facility] 14.5 /2014 [facility] HEMATOLOGY Hgb 12.1 12.0 - 11/24 [facility] 16.0 /2014 [facility] HEMATOLOGY Hct 35.3 36.0 - 11/24 [facility] 48.0 /2014 [facility] HEMATOLOGY Platelet 158 133 - 450 02 [facility] HEMATOLOGY MCHC 34.2 32.0 - 02 [facility] 36.0 /2014 [facility] HEMATOLOGY MCH 32.5 27.0 - 11/24 [facility] 31.0 /2014 [facility] LIPIDS CHD Risk 2.81 3.90 - 11/24 [facility] 5.80 /2014 [facility] LIPIDS VLDL 26 11/24 [facility] LIPIDS LDL 59 <=99 mg/dL 11/24 [facility] (Calculated) [facility] LIPIDS Trig 128 <=149 11/24 [facility] mg/dL [facility] LIPIDS HDL 47 >=61 mg/dL 11/24 [facility] LIPIDS Chol 132 <=199 11/24 [facility] mg/dL [facility] SPECIAL Hgb A1C 5.6 <=5.6 % 11/24 [facility] CHEMISTRY [facility] Pathology Reports No Data Provided for This Section Diagnostic Reports Report Value Date Source Neck wo contrast MRA EXAM: MRI BRAIN 11/24/2014 [facility] dical EXAM: MRA BRAIN Center EXAM: MRA [...] caliber. No aneurysm is identified. Right type RAILROAD PURCHASING AGENT is present, a normal variant. There is [...] wo contrast MRA EXAM: MRI BRAIN 11/24/2014 [facility] edical EXAM: MRA BRAIN Center EXAM: MRA [...] caliber. No aneurysm is identified. Right type RAILROAD PURCHASING AGENT is present, a normal variant. There is [...] wo contrast MRI EXAM: MRI BRAIN 11/24/2014 [facility] edical EXAM: MRA BRAIN Center EXAM: MRA [...] caliber. No aneurysm is identified. Right type RAILROAD PURCHASING AGENT is present, a normal variant. There is [...] Date Comments Source Respitory Rate 16 11/26/2014 [facility] Systolic (mm Hg) 172 11/26/2014 [facility] Diastolic (mm Hg) 79 11/26/2014 [facility] Heart Rate 57 11/26/2014 [facility] Temperature Oral (F) 97.5 F 11/26/2014 [facility] Temperature Oral (F) 97.5 F 11/26/2014 [facility] Heart Rate 69 11/26/2014 [facility] Diastolic (mm Hg) 79 11/26/2014 [facility] Respitory Rate 18 11/26/2014 [facility] Systolic (mm Hg) 166 11/26/2014 [facility] Respitory Rate 16 11/26/2014 [facility] Systolic (mm Hg) 157 11/26/2014 [facility] dical Center Diastolic (mm Hg) 66 11/26/2014 [facility] Heart Rate 65 11/24/2014 [facility] Weight 114.318 11/24/2014 [facility] BMI Calculated 43.26 11/24/2014 [facility] Height 162.56 cm 11/24/2014 [facility] Encounters Location Location Encounter Encounter Reason Attending ADM [place] Stat us Source Details Type Number For Provider Date Date Visit [facility] [id number] Bennett Salmon 11/24 11/26 [facility] /2014 [facility] PT/INR 3.0 [id number] 12/19 12/19 [facility] [id number]- /2014 [facility] [id number] y Consult [place] PT/INR 3.0 [id number] 12/19 12/19 [facility] 6-8jn9-18z3- /2014 [facility] [id number] y [facility] [place] PT/INR 3.0 [id number] 12/19 12/19 [facility] 1-118o-l7b4- /2014 [facility] [id number] y [facility] [place] PT/INR 3.0 [id number] 12/19 12/19 [facility] d-[id number]-q852- /2014 [facility] [id number] y Consult [place] Unknown [id number] 12/19 12/19 [facility] [id number]-we59- /2014 [facility] [id number] y Consult [place] Unknown [id number] 12/19 12/19 [facility] c-[id number]-3067- /2014 [facility] [id number] y Consult [place] Unknown [id number] 12/19 12/19 [facility] n-0088-86au- /2014 [facility] [id number] y Consult [place] Unknown [id number] 12/19 12/19 [facility] 5-108a-n14e- /2014 [facility] [id number] y [facility] [place] PT/INR 3.0 [id number] 12/19 12/19 [facility] q-2ern-2149- /2014 [facility] [id number] y [facility] [place] PT/INR 3.0 [id number] 12/19 12/19 [facility] 2-3699-8j91- /2014 [facility] [id number] y Consult [place] Unknown [id number] 12/19 12/19 [facility] 6-9790-0i5i- /2014 [facility] [id number] y Consult [place] Unknown [id number] 12/19 12/19 [facility] 9-5wg6-z3jj- /2014 [facility] [id number] y Consult [place] Unknown [id number] 03/23 03/23 [facility] 9-157g-r1px- /2014 [facility] [id number] y Consult [place] Unknown [id number] 03/23 03/23 [facility] k-[id number]- /2014 [facility] [id number] y Consult [place] Unknown [id number] 03/23 03/23 [facility] 8-5106-h8t8- /2014 [facility] [id number] y Consult [place] Unknown [id number] 03/23 03/23 [facility] 5-7027-4fg4- /2014 [facility] [id number] y Consult [place] Unknown [id number] 03/23 03/23 [facility] z-137o-kp38- /2014 [facility] [id number] y Consult [place] Unknown [id number] 03/23 03/23 [facility] 1-0ch8-4856- /2014 [facility] [id number] y Consult [place] Unknown [id number] 08/12 08/12 [facility] n-5x11-5n8r- /2014 [facility] [id number] y [facility] [place] Unknown [id number] 08/12 08/12 [facility] 1-3640-z69e- /2014 [facility] [id number] y Consult [place] Unknown [id number] 08/12 08/12 [facility] 2-8nv5-ql83- /2014 [facility] [id number] y Consult [place] Unknown [id number] 08/12 08/12 [facility] 3-790w-7t56- /2014 [facility] [id number] y Consult [place] Unknown [id number] 08/12 08/12 [facility] 3-4613-4g36- /2014 [facility] [id number] y Consult [place] Unknown [id number] 08/12 08/12 [facility] 8-1r30-ms7j- /2014 [facility] [id number] y [facility] [place] Unknown [id number] 01/28 01/28 [facility] c-5883-89su- /2015 [facility] [id number] [facility] [place] Unknown [id number] 01/28 01/28 [facility] 2-609m-h612- /2015 [facility] [id number] y Consult [place] Unknown [id number] 01/28 01/28 [facility] 6-290x-le51- /2015 [facility] [id number] y Consult [place] Unknown [id number] 01/28 01/28 [facility] 8-1d5f-p49z- /2015 [facility] [id number] y Consult [place] Unknown [id number] 01/28 01/28 [facility] 3-0c73-l9m0- /2015 [facility] [id number] y Consult [place] Unknown [id number] 01/28 01/28 [facility] 2-3226-gge2- /2015 [facility] [id number] y [facility] [place] Unknown [id number] 03/11 03/11 [facility] u-2655-6fsc- /2015 [facility] [id number] y [facility] [place] Unknown [id number] 03/11 03/11 [facility] m-9412-846w- /2015 [facility] [id number] y Consult [place] Unknown [id number] 03/11 03/11 [facility] 7-7761-u5jt- /2015 [facility] [id number] y Consult [place] Unknown [id number] 03/11 03/11 [facility] w-44gi-1527- /2015 [facility] [id number] y Consult [place] Unknown [id number] 03/11 03/11 [facility] o-3716-2hk6- /2015 [facility] [id number] y Consult [place] Unknown [id number] 04/15 04/15 [facility] 5-72qb-63o5- /2015 [facility] [id number] y Consult [place] Unknown [id number] 04/15 04/15 [facility] x-9ob9-kqf6- /2015 [facility] [id number] y Consult [place] Unknown [id number] 04/15 04/15 [facility] 0-70o9-cvr5- /2015 [facility] [id number] y Consult [place] Unknown [id number] 04/15 04/15 [facility]-9360-3681- /2015 [facility] [id number] y Consult [place] Unknown [id number] 04/15 04/15 [facility] b-6jwk-ci19- /2015 [facility] [id number] y Consult [place] Unknown [id number] 04/15 04/15 [facility] n-004o-m134- /2015 [facility] [id number] y Consult [place] Unknown [id number] 04/15 04/15 [facility] q-9623-36aq- /2015 [facility] [id number] y Consult [place] Unknown [id number] 04/15 04/15 [facility] 7-9212-93v4- /2015 [facility] [id number] y Consult [place] Other [id number] 09/09 09/09 [facility] Card[facility] 1-31pg-m620- /2015 [facility] [id number] y Consult [place] Other [id number] 09/09 09/09 [facility] Cardiology 6-4ldw-l889- /2015 [facility] [id number] y Consult [place] Unknown [id number] 12/20 12/20 [facility] 1-3qk7-g0fn- /2016 [facility] [id number] y Consult Procedures Procedure Code Date Perfomer Comments Source Knee replacement [id number] [facility] Assessment and Plan Assessment and Plan Date Source Extracted from:Title: Stroke Follow Up 11/26/2014 [facility] Author: Leida Alfaro Date: 11/26/14 Arranged for patient to follow up with [facility] on January 06, 2015 at 10:30am with DAMIÁN Cardona/Dr. Diallo. Patient is aware and agreeable to appointment. Will remain available as needed. Leida Alfaro LMSW [facility]#[id number] Transitional Music Publicist Addendum by Leida Alfaro on 11/26/2014 13:11 Patient will also follow up with her Car diologist, Dr. David Salmon [phone], to monitor her PT INR on Friday, November 28, 2014 at 11:15am. Extracted from:Title: Stroke Author: Bal Pierce DO Date: 11/23/14 STROKE TEAM HISTORY AND PHYSICAL Attending of Record: Dr. Begum Date of Admission: 11/24/14 Requesting Physician/Service: Transfer from OSH ([facility]) CC: expressive aphasia HISTORY OF PRESENT ILLNESS: Patient is a 74 year old right handed fe male with pmhx of hypertension, coronary artery disease, GERD, hyperthyroidism and mitral valve prolapse p/w expressive aphasia from OSH s/p tPA. Patient presente lorena to [facility] with acute onset of word finding difficulty around 7pm. Pt arrived at [facility] 1944 CTH was done at 1999. NIHSS [...] she quit 30 years ago, had a 15-wpoj-svrs history. MEDICATIONS: KCL Omeprazole Valsartan Fenofibrate Pravachol [...] OSH s/p tPA. Patient presente d to [facility] with acute onset of word finding difficulty [...] HbA1c. Treat fevers and blood sugars aggressively. 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 NPO prior to bedside swallow assessment; and escalation of care as determined by nurse DVT prophylaxis with SCDs. 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 Toe CarrilloJasonmorales Reeder MD [employer] [facility] Neurology Pager: [phone] Addendum by Teo Reeder MD on 11/25/2014 19:06 The patient does not have AFIB Teo (Jason) MD Varinder [employer] Developer [employer] Neurology Pager: [phone] Plan of Care No Data Provided for This Section Social History Social History Date Source Social History ElementQualifiersDate Reported 09/27/2016 [facility] Consult Smoking . Status: former smoker [...] Sep 27, 2016 Social History TypeResponse 11/24/2014 [facility] Smoking Status Never smoker, Ready to change: No, Anna rns about tobacco use in household: No, Exposure to Tobacco Smoke None, Cigarette Smoking Last 365 Days No, Reg Smoking Cessation Counseling No Family History No Data Provided for This Section Advance Directives No Data Provided for This Section Functional Status No Data Provided for This Section
--- OUTSIDE RECORDS SUMMARY | 2020-05-30 13:41 | XMS REPORT | Continuity of Care Document ---
:1940 Author Organization [facility] t Address [address] [place] [address] Care Team Providers Name Role Phone HANDY Attending Clinician Unavailable Michelle Begum Attending Clinician Michelle Begum Admitting Clinician Problems Condition Condition Condition Status Onset Resolution Last Treating Co mments Source Name Details Category Date Date Treatment Clinician Date ISCHEMIC Diagnosis Active 2015-02-19 M emoria STROKE 2- 08:33:00 l ISCHEMIC 00:00: Epifanio jimenez STROKE 00 Active 11/23/2014 [facility] LFLT Diagnosis Active 2015-02-19 Mem oria TRANSFER#5 2- 08:34:00 l 34 LFLT 00:00: Elia TRANSFER#5 00 34 Active 5 [facility] History of History of Problem Resolve Univers [...] Unive rs infarction infarction it y of [place] [facility] Essential Essential Problem Active Uni vers hypertensi hypertensi it y of on on [place] [facility] Sleep Sleep Problem Active Univers apnea apnea [facility] [place] [facility] Gastroesop Problem Resolve 2014-11-28 Memoria hageal d 15:24:41 l reflux Elia disease Gastroesop (disorder) hageal reflux disease (disorder) Resolved Problem 11/28/2014 [facility] Hyperchole Problem Resolve 2014-11-28 Memoria sterolemia d 15:24:41 l (disorder) Epifanio n Hyperchole sterolemia (disorder) Resolved Problem 11/28/2014 [facility] Hyperlipid Problem Resolve 2014-11-28 Memoria emia d 15:24:41 l (disorder) Epifanio n Hyperlipid emia (disorder) Resolved Problem 11/28/2014 [facility] Hypertensi Problem Resolve 2014-11-28 Memoria ve d 15:24:41 l disorder, Casey systemic Hypertensi arterial ve (disorder) disorder, systemic arterial (disorder) Resolved Problem 11/28/2014 [facility] Hypothyroi Problem Resolve 2014-11-28 Memoria dism d 15:24:41 l (disorder) Epifanio n Hypothyroi dism (disorder) Resolved Problem 11/28/2014 [facility] Atrial Problem Active 2017-06-17 Memor ia fibrillati 02:45:15 l on Atrial Casey fibrillati on Active Problem 7 [facility] Personal Problem Active 2017-06-17 Mem oria history of 02:45:15 l transient Personal Her irvin ischemic history of attack transient [TIA], and ischemic cerebral attack infarction [TIA], and without cerebral residual infarction deficits without residual deficits Active Problem 06/17/2017 [facility] Palpitatio Problem Active 2017-06-17 M emoria ns 02:45:15 l Casey Palpitatio ns Active Problem 7 [facility] Transient Problem Active 2017-06-17 Me moria cerebral 02:45:15 l ischemic Elia attack, Transient unspecifie cerebral d ischemic attack, unspecifie d Active Problem 06/17/2017 [facility] Bradycardi Problem Active 2017-06-17 M emoria a, 02:45:15 l unspecifie Epifanio n d Bradycardi a, unspecifie d Active Problem 06/17/2017 [facility] Personal Problem Active 2017-06-17 Mem oria history of 02:45:15 l transient Personal Her irvin ischemic history of attack transient (TIA), and ischemic cerebral attack infarction (TIA), and without cerebral residual infarction deficits without residual deficits Active Problem 06/17/2017 [facility] History of Problem Active 2017-06-17 M emoria falling 02:45:15 l History Casey of falling Active Problem 06/17/2017 [facility] Abnormal Problem Active 2017-06-17 Mem oria electrocar 02:45:15 l diogram Abnormal Sunni nn [ECG] electrocar [EKG] diogram [ECG] [EKG] Active Problem 06/17/2017 [facility] Morbid Problem Active 2017-06-17 Memor ia (severe) 02:45:15 l obesity Morbid Casey due to (severe) excess obesity calories due to excess calories Active Problem 06/17/2017 [facility] Arthropath Problem Active 2017-06-17 M emoria y, 02:45:15 l unspecifie Epifanio n d Arthropath y, unspecifie d Active Problem 06/17/2017 [facility] Major Problem Active 2017-06-17 Memor ia depressive 02:45:15 l disorder, Major Epifanio n single depressive episode, disorder, unspecifie single d episode, unspecifie d Active Problem 06/17/2017 [facility] Chest Problem Active 2017-06-17 Memor ia pain, 02:45:15 l unspecifie Chest Sunni nn d pain, unspecifie d Active Problem 06/17/2017 [facility] Shortness Problem Active 2017-06-17 Me moria of breath 02:45:15 l Elia Shortness of breath Active Problem 06/17/2017 [facility] Constipati Problem Active 2017-06-17 M emoria on, 02:45:15 l unspecifie Epifanio n d Constipati on, unspecifie d Active Problem 06/17/2017 [facility] Hypothyroi Problem Active 2017-06-17 M emoria dism, 02:45:15 l unspecifie Epifanio n d Hypothyroi dism, unspecifie d Active Problem 06/17/2017 [facility] Hyperlipid Problem Active 2017-06-17 M emoria emia, 02:45:15 l unspecifie Epifanio n d Hyperlipid emia, unspecifie d Active Problem 06/17/2017 [facility] Chronic Problem Active 2017-06-17 Alek bethany kidney 02:45:15 l disease, Chronic Sunni nn unspecifie kidney d disease, unspecifie d Active Problem 06/17/2017 [facility] Insomnia, Problem Active 2017-06-17 Me moria unspecifie 02:45:15 l d Casey Insomnia, unspecifie d Active Problem 06/17/2017 [facility] Nonrheumat Problem Active 2017-06-17 M emoria ic mitral 02:45:15 l (valve) Elia insufficie Nonrheumat ncy ic mitral (valve) insufficie ncy Active Problem 06/17/2017 [facility] Paroxysmal Problem Active 2017-06-17 M emoria atrial 02:45:15 l fibrillati Epifanio n on Paroxysmal atrial fibrillati on Active Problem 7 [facility] 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:45:15 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 Active Problem 06/17/2017 [facility] Essential Problem Active 2017-06-17 Me moria (primary) 02:45:15 l hypertensi Epifanio n on Essential (primary) hypertensi on Active Problem 7 [facility] Chronic Problem Active 2017-06-17 Alek bethany kidney 02:45:15 l disease, Chronic Sunni nn Stage III kidney (moderate) disease, Stage III (moderate) Active Problem 06/17/2017 [facility] Congestive Problem Active 2017-06-17 M emoria heart 02:45:15 l failure, Casey unspecifie Congestive d heart failure, unspecifie d Active Problem 06/17/2017 [facility] Hypertensi Diagnosis Active 2017-06-17 Memoria ve heart 02:45:15 l and Elia chronic Hypertensi kidney ve heart disease and with heart chronic failure kidney and stage disease 1 through with heart stage 4 failure chronic and stage kidney 1 through disease, stage 4 or chronic unspecifie kidney d chronic disease, kidney or disease unspecifie d chronic kidney disease Active Diagnosis 06/17/2017 [facility] Hypertensi Problem Active 2017-06-17 M emoria on 02:45:15 l essential Casey benign Hypertensi on essential benign Active Problem 06/17/2017 [facility] 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:45:15 l stenosis Elia of carotid Occlusion artery and without stenosis mention of of carotid cerebral artery infarction without mention of cerebral infarction Active Problem 06/17/2017 [facility] Insomnia, Problem Active 2017-06-17 Me moria unspecifie 02:45:15 l d Casey Insomnia, unspecifie d Active Problem 06/17/2017 [facility] Mitral Problem Active 2017-06-17 Memor ia valve 02:45:15 l disorders Mitral Sunni nn valve disorders Active Problem 06/17/2017 [facility] Other and Problem Active 2017-06-17 Me moria unspecifie 02:45:15 l d Other Elia hyperlipid and emia unspecifie d hyperlipid emia Active Problem 06/17/2017 [facility] Unspecifie Problem Active 2017-06-17 M emoria d 02:45:15 l hypothyroi Epifanio n dism Unspecifie d hypothyroi dism Active Problem 06/17/2017 [facility] Obesity, Problem Active 2017-06-17 Mem oria unspecifie 02:45:15 l d Obesity, Epifanio n unspecifie d Active Problem 06/17/2017 [facility] Other Problem Active 2017-06-17 Memor ia malaise 02:45:15 l and Other Elia fatigue malaise and fatigue Active Problem 06/17/2017 [facility] Shortness Problem Active 2017-06-17 Me moria of breath 02:45:15 l Casey Shortness of breath Active Problem 06/17/2017 [facility] Chest Problem Active 2017-06-17 Memor ia pain, 02:45:15 l unspecifie Chest Sunni nn d pain, unspecifie d Active Problem 06/17/2017 [facility] Chronic Problem Active 2017-06-17 Alek bethany diastolic 02:45:15 l (congestiv Chronic Her irvin e) heart diastolic failure (congestiv e) heart failure Active Problem 06/17/2017 [facility] Unspecifie Problem Active 2017-06-17 M emoria d 02:45:15 l constipati Epifanio n on Unspecifie d constipati on Active Problem 7 [facility] Impaired Problem Active 2017-06-17 Mem oria fasting 02:45:15 l blood Impaired Epifanio n sugar fasting blood sugar Active Problem 06/17/2017 [facility] Overactive Problem Active 2017-06-17 M emoria bladder 02:45:15 l Casey Overactive bladder Active Problem 06/17/2017 [facility] Anxiety Problem Active 2017-06-17 Alek bethany disorder, 02:45:15 l unspecifie Anxiety Her irvin d disorder, unspecifie d Active Problem 06/17/2017 [facility] Incontinen Problem Active 2017-06-17 M emoria ce without 02:45:15 l sensory Elia awareness Incontinen ce without sensory awareness Active Problem 06/17/2017 [facility] Encounter Problem Active 2017-06-17 Me moria for 02:45:15 l screening Elia for Encounter diabetes for mellitus screening for diabetes mellitus Active Problem 06/17/2017 [facility] Retention Problem Active 2017-06-17 Me moria of urine, 02:45:15 l unspecifie Epifanio n d Retention of urine, unspecifie d Active Problem 06/17/2017 [facility] Hypertensi Problem Active 2017-06-17 M emoria ve heart 02:45:15 l and Elia chronic Hypertensi kidney ve heart disease, and benign, chronic with heart kidney failure disease, and with benign, chronic with heart kidney failure disease and with stage I chronic through kidney stage IV, disease or stage I unspecifie through d stage IV, or unspecifie d Active Problem 06/17/2017 [facility] Depressive Problem Active 2017-06-17 M emoria disorder, 02:45:15 l not Elia elsewhere Depressive classified disorder, not elsewhere classified Active Problem 06/17/2017 [facility] Urinary Problem Active 2017-06-17 Alek bethany tract 02:45:15 l infection, Urinary Her irvin site not tract specified infection, site not specified Active Problem 06/17/2017 [facility] Unspecifie Problem Active 2017-06-17 M emoria d 02:45:15 l arthropath Epifanio n y, site Unspecifie unspecifie d d arthropath y, site unspecifie d Active Problem 06/17/2017 [facility] Frequency Problem Active 2017-06-17 Me moria of 02:45:15 l micturitio Epifanio n n Frequency of micturitio n Active Problem 06/17/2017 [facility] Morbid Problem Active 2017-06-17 Memor ia obesity 02:45:15 l Morbid Elia obesity Active Problem 06/17/2017 [facility] Female Problem Active 2017-06-17 Memor ia genuine 02:45:15 l stress Female Casey incontinen genuine ce stress incontinen ce Active Problem 7 [facility] Nonspecifi Problem Active 2017-06-17 M emoria c abnormal 02:45:15 l electrocar Epifanio n diogram Nonspecifi (ECG) c abnormal (EKG) electrocar diogram (ECG) (EKG) Active Problem 06/17/2017 [facility] Palpitatio Problem Active 2017-06-17 M emoria ns 02:45:15 l Elia Palpitatio ns Active Problem 7 [facility] Other Problem Active 2017-06-17 Memor ia specified 02:45:15 l cardiac Other Casey dysrhythmi specified as cardiac dysrhythmi as Active Problem 7 [facility] Upper Problem Active 2017-06-17 Memor ia respirator 02:45:15 l y tract Upper Casey hypersensi respirator tivity y tract reaction, hypersensi site tivity unspecifie reaction, d site unspecifie d Active Problem 06/17/2017 [facility] Unspecifie Problem Active 2017-06-17 M emoria d 02:45:15 l transient Elia cerebral Unspecifie ischemia d transient cerebral ischemia Active Problem 06/17/2017 [facility] Personal Problem Active 2017-06-17 Mem oria history of 02:45:15 l fall Personal Epifanio n history of fall Active Problem 06/17/2017 [facility] Acute Problem Active 2017-06-17 Memor ia upper 02:45:15 l respirator Acute Sunni nn y upper infections respirator of y unspecifie infections d site of unspecifie d site Active Problem 06/17/2017 [facility] CVA Diagnosis Active 2015-02-19 Mem oria 08:33:00 l CVA Elia Active [facility] Allergies, Adverse Reactions, Alerts This patient has no known allergies or adverse reactions. Family History Family Member Diagnosis Comments Start Date Stop Date Source Mother Family history of [facility] pancreatic cancer Physici ans Father Family history of [facility] [place] cardiac disorder Physicia ns Social History Social Habit Start Date Stop Date Quantity Comments Source Smoking 2016-09-27 00:00:00 2016-09-27 Elliot Rodrigez 00:00:00 Smoking Status Start Date Stop Date Source Former smoker [facility] frida Physicians Social History [facility] Medications Ordered Filled Start Stop Current Ordering [...] 0-17 DIRECTED. ity of MCG/ACT MCG/ACT 00:00: [place] Inhalation Inhalation 00 Phy sici Aerosol Aerosol ans Levothyroxi Levothyroxi 2017-10 Yes 1 QD TAKE 1 Univers ne Sodium ne Sodium 0-17 TABLET ity of 100 MCG 100 MCG 00:00: DAILY. [place] Oral Tablet Oral Tablet 00 P hysici [...] 1 tablet M emoria 8-17 l 00:00: Casey 00 Edarbyclor Edarbyclor Yes MUNACHI 1 QD TAKE 1 Univers 40-25 MG 40-25 MG 4-20 OKPALA TABLET BY ity of Oral Tablet Oral Tablet 00:00: N.P. MOUTH ONCE [place] 00 DAILY Physici ans Edarbyclor Yes Melissa Ali 1 tablet Memoria 3-28 l 00:00: Casey Edarbyclor Yes Melissa Ali 1 tablet Memoria 3-13 l 00:00: Elia Tikosyn No Melissa Ali TAKE ONE M emoria 3-01 CAPSULE BY l 03:45: MOUTH Elia 56 TWICE A DAY Dofetilide Yes Melissa Ali 1 capsule Memoria 2-28 l 00:00: Elia Doxazosin 2015-10 No Melissa Ali TAKE ONE Memoria Mesylate 1-19 TABLET BY l 03:48: MOUTH Elia 47 DAILY Cipro Yes Bennett Ali 1 tablet Me moria 6-24 l 00:00: Casey 00 Pravastatin Pravastatin 2014-0 Yes MUNACHI 1 [...] Capsule Capsule 00 Physici ans Liothyronin Liothyronin 0 Yes MUNACHI 1 QD TAKE 1 Univers e Sodium 5 e Sodium 5 3-17 OKPALA TABLET ity of MCG Oral MCG Oral 00:00: N.P. DAILY. Alexandre as Tablet Tablet 00 Physici ans Doxazosin Doxazosin 0 Yes MUNACHI 1 QD TAKE 1 Univers Mesylate 4 Mesylate 4 3-17 OKPALA TABLET ity of MG Oral MG Oral 00:00: N.P. DAILY. [place] Tablet Tablet 00 Physici ans Warfarin No Notes: Memoria 2-04 Nurse to l 18:03: ensure Elia 00 documentat ion of patient education per [facility] policy. Avoid large intake of vitamin-K containing foods diet. (Same As: Coumadin) valsartan Yes 40 mg = 1 Mem oria 40 mg oral 2-04 tab, PO, l tablet 17:52: Q12H, # 60 Sunni nn 00 tab, 3 Refill(s) atorvastati Yes 40 mg = 1 M emoria n 40 mg 2-04 tab, PO, l oral tablet 17:52: Bedtime, # Casey 00 30 tab, 3 Refill(s) clopidogrel Yes 75 mg = 1 M emoria 75 mg oral 2-04 tab, PO, l tablet 17:52: Daily, # Casey 00 30 tab, 0 Refill(s) warfarin 5 Yes 5 mg, PO, Me moria mg oral 2-04 Daily, # 2 l tablet 17:52: tab, 0 Casey 00 Refill(s) Atenolol 25 Yes 12.5 mg = M emoria MG Oral 2-04 0.5 tab, l Tablet 17:52: PO, Daily, Sunni nn 00 0 Refill(s) valsartan No Notes: Memori a 2-04 Same as l 15:00: Diovan Casey 00 Protonix No Notes: Memoria 2-03 Tablet l 22:30: should not Elia 00 be chewed or crushed. (Same as: Protonix) Atenolol No Notes: Memoria 2-03 (Same l 15:00: As:Tenormi Elia 00 n) valsartan No 320 mg, Memor ia 2-03 Route: PO, l 15:00: Drug form: Casey 00 TAB, Daily, Dosing Weight 114.318, kg, [...] l 04:00: heparin Plavix No Notes: Memoria 2- (Same As: l 04:00: Plavix) Tylenol No [...] tab, PO, l MEQ 20:47: Daily, 0 Elia Extended 00 Refill(s) Release Tablet omeprazole 2015-0 Yes 40 mg = 1 Me moria 40 mg oral 2-02 cap, PO, l delayed 20:47: Daily, # Epifanio n release 00 30 cap, 0 capsule Refill(s) Metolazone No 5 mg = 1 Mem oria 5 MG Oral 2-02 tab, PO, l Tablet 20:47: Daily, # Elia 00 30 tab, 0 Refill(s) liothyronin Yes 10 Memori a e 5 mcg 2-02 microgram l oral tablet 20:47: = 2 tab, He rmann 00 PO, QAM, # 30 tab, 0 Refill(s) Fenofibrate No 160 mg = 1 Memoria 160 MG Oral 2-02 tab, PO, l Tablet 20:47: Daily, # Casey 00 30 tab, 0 Refill(s) Zolpidem Yes [...] tab, PO, l tablet 20:47: Daily, # Elia 00 30 tab, 0 Refill(s) valsartan No 320 mg = 1 Me moria 320 mg oral 2-02 tab, PO, l tablet 20:47: Daily, # Elia 00 30 tab, 0 Refill(s) Triiodothyr 2015-0 No Notes: Alek bethany onine 2- (Same as: l 20:09: Cytomel) Reglan No Notes: Memoria 2- (Same as: l 17:44: Reglan) Magnesium No 2 gm, 50 Alek bethany Sulfate 2-02 mL, Route: l 17:27: IVPB, Drug form: INJ, ONCE, Dosing Weight 114.318, kg, Total dose = 2 gm, Start date: 11/24/14 11:27:00, Duration: 1 doses or times, Stop date: 11/24/14 11:27:00 pneumococca No Notes: Alek bethany l capsular - (Same as: l polysacchar 15:00: Pneumovax H ermann sirena type 1 00 23) vaccine / Refrigerat pneumococca e l capsular polysacchar sirena type 10A vaccine / pneumococca l capsular polysacchar sirena type 11A vaccine / pneumococca l capsular polysacchar sirena type 12F vaccine / pneumococca l capsular polysacchar Saline No Notes: Memoria Flush 0.9% 11-24 (Same as: l 15:00: BD Posiflush) Versed No Notes: Memoria 2- (Same as: l 14:31: Versed) Pravastatin No 40 mg = 1 M emoria Sodium 40 2-02 tab, PO, l MG Oral 13:59: Bedtime, # Herm alexandra Tablet 00 30 tab, 0 [Pravachol] Refill(s) aspirin No 0 Memoria 2-02 Refill(s) l 13:59: Casey 00 Fenofibrate No 160 mg = 1 Memoria 160 MG Oral 2-02 tab, PO, l Tablet 13:59: Daily, # Casey 00 30 tab, 0 Refill(s) Atenolol 0 No 0 Memoria 2-02 Refill(s) l 13:59: Elia 00 valsartan No 320 mg = 1 Me moria 320 mg oral 2-02 tab, PO, l tablet 13:59: Daily, # Elia 00 30 tab, 0 Refill(s) Potassium 0 No 0 Memoria Chloride 20 2-02 Refill(s) l MEQ 13:59: Casey Extended 00 Release Tablet Metolazone No 5 mg = 1 Mem oria 5 MG Oral 2-02 tab, PO, l Tablet 13:59: Daily, # Elia 00 30 tab, 0 Refill(s) Furosemide No 40 mg = 1 Me moria 40 MG Oral 2-02 tab, PO, l Tablet 13:59: Daily, # Elia [Lasix] 00 30 tab, 0 Refill(s) liothyronin [...] Memoria 2-02 (Same as: l 13:08: Zofran) Elia Tylenol No Notes: Do Memor ia 2-02 not exceed l 06:48: 4 gm/day. Elia 00 (Same as: Tylenol) Sodium No 1,000 mL, Memori a Chloride 11-24 Rate: 75 l 0.154 05:06: ml/hr, Casey MEQ/ML 00 Infuse Injectable over: 13.3 Solution hr, Route: IV, Total Volume: 1,000, Start date: 11/23/14 23:06:00, Duration: 30 day, Stop date: 12/23/14 23:05:00 Saline No Notes: Memoria Flush 0.9% 2-02 (Same as: l 04:58: BD Elia 00 Posiflush) Acetaminoph No Notes: Do M emoria en 2-02 not exceed l 04:58: 4 gm/day. Casey 00 (Same as: Tylenol) Dofetilide Dofetilide Yes MUNACHI 1 capsule Univers 500 MCG 500 MCG OKPALA daily ity of Oral Oral N.P. [place] Capsule Capsule Physici ans Vitamin D-3 Vitamin D-3 Yes 1 tablet Univers CAPS CAPS daily [facility] of [place] Physici ans Vascepa 1 Vascepa 1 Yes MUNACHI 1 capsule Univers GM Oral GM Oral OKPALA daily ity of Capsule Capsule N.P. [place] Physici ans Vital Signs Vital Name Observation Time Observation Value Comments Source BP Systolic 2019-07-23 152 mm[Hg] Location: [facility] 11:51:00 Position: [place] [facility] Sitting BP Diastolic 2019-07-23 76 mm[Hg] Location: [facility] 11:51:00 Position: [place] [facility] s Sitting Height 2019-07-23 62 [in_us] [facility] 11:51:00 [place] Phys[place] s Weight 2019-07-23 248.5 [lb_av] [facility] 11:51:00 [place] Phys[facility] s Body Mass Index 2019-07-23 45.45 kg/m2 [facility] Calculated 11:51:00 [place] Phys[facility] s Heart Rate 2019-07-23 66 /min Location: [facility] [place] [facility] 11:51:00 Brachial [place] [facility] s Artery; Respitory Rate 2014-11-26 [facility] 17:54:00 Systolic (mm Hg) 2014-11-26 [facility] rmann 17:54:00 Diastolic (mm Hg) 2014-11-26 [facility] ermann 17:54:00 Heart Rate 2014-11-26 [facility] Epifanio [...] He rmann 12:00:00 Diastolic (mm Hg) 2014-11-26 [facility] H ermann 12:00:00 Heart Rate 2014-11-24 [facility] Epifanio n 15:45:00 Weight 2014-11-24 [facility] Epifanio n 06:47:00 BMI Calculated 2014-11-24 [facility] alexandra 06:47:00 Height 2014-11-24 162.56 cm Heidy jimenez 06:47:00 Procedures Procedure Date / Time Performing Clinician Source Performed History of Hysterectomy [facility] Physicians History of Appendectomy [facility] Physicians History of Bladder Surgery Unive Formerly [facility] Physicians History of Neuroplasty [facility] Decompression Median Nerve Physi cians At Carpal Tunnel History of Esophagogastric Unive Formerly [facility] Fundoplasty [facility] Fundoplication History of Knee Surgery [facility] Right Physicians Knee replacement Heidy jimenez Plan of Care Planned Activity Planned Date Details Comments Source Future Appointment 2020-07-17 DAMIÁN BAILEY [facility] 11:30:00 Yulia MURRELL Encounters Start End Encounter Admission Attending Care Care Encounter Source Date/Time Date/Time Type Type Clinicians Facility Department ID 2019-07-23 2019-07-23 AppointBLUE [facility] - [id number] [facility] 11:30:00 11:30:00 t; LEO MURRELL NP [place] it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 Physici ans 2017-06-16 2017-06-16 Outpatient Cardiolog Cardiology [...] Consultants al Works Consultan 2016-12-20 2016-12-20 Outpatient [facility] [id number] eClinic 09:57:00 09:57:00 Cardiolog Cardiology a lWorks y Consultants Consultan 2016-09-09 2016-09-09 Outpatient [facility] [id number] eClinic 15:06:00 15:06:00 Cardiolog Cardiology a lWorks y Consultants Consultan 2016-04-15 2016-04-15 Outpatient [facility] [id number] eClinic 14:19:00 14:19:00 Cardiolog Cardiology a lWorks y Consultants Consultan 2016-04-15 2016-04-15 Outpatient [facility] [id number] eClinic 14:11:00 14:11:00 Cardiolog Cardiology a lWorks y Consultants Consultan 2016-03-11 2016-03-11 Outpatient [facility] [id number] eClinic 13:22:00 13:22:00 Cardiolog Cardiology a lWorks y Consultants Consultan 2016-01-29 2016-01-29 Outpatient [facility] [id number] eClinic 14:05:00 14:05:00 Cardiolog Cardiology a lWorks y Consultants Consultan 2014-11-23 2014-11-26 Outpatient DELPHINE Begum [facility] [id number] 22:23:00 16:46:00 Serina 66 Michelle Results Test Description Test Time Test Comments [...] [facility] 10:23:00 HEMATOLOGY 2014-11-26 13.1 [facility] Sunni nn 10:23:00 HEMATOLOGY 2014-11-26 10:23:00 Test Item Value Reference Range Interpretation Comme nts MCH (test code = MCH) 32.4 pg 27.0-31.0 [facility] [id number] 10:23:0093.5[facility] HermannHEMATOLOGY 2014-11-26 10:23:0034.6[facility] [id number] 10:23:0033.6[facility] [id number] 10:23:0011.6[facility] [id number] 10:23:003.60[facility] [id number] 10:23:004.6[facility] Casey [id number] 10:23:008.3[facility] [id number] 10:23:35826 [facility] TsvvikmWNAPUUEOGL9397-23-44 10:23:0062.3[facility]annHEMATOLOGY 2014-11-26 10:23:001.2[facility] AzeyjddIXMPWXSHKN0146-74-26 10:23:000.4[facility] CneveewJTEAFPCNFC1632-67-04 10:23:003.0[facility] ZflnlicGKYQXDUYAS5863-52-56 10:23:0026.2[facility] YnsizfjXQWVGGWXXC6847-28-95 10:23:002.9[facility] KWNYZKGDIS5717-52-79 10:23:000.5[facility] EkicgfjCVLHXGXGZZ3742-77-98 10:23:008.0 [facility] VprjkqsJBDEFCLGKE1358-87-71 10:23:000.1[facility] HermannCHEM PANEL 2014-11-25 07:04:003.1[facility]annCHEM QGXAH4296-11-37 07:04:0034[facility]annCHEM QYPKG8492-93-27 07:04:0025[facility]annCHEM FGCSS0216-88-55 07:04:0012.8[facility]annCHEM CLVZN5631-09-14 07:04:008.7[facility]annCHEM CZQAT9045-04-15 07:04:77973Yqsnfqjs HermannCHEM TNSNM7897-94-46 07:04:0023 [facility]annCHE[facility] CLPYM1601-99-12 07:04:03459Totzmgsl HermannCHEM PANEL 2014-11-25 07:04:0082[facility]annCHEM WAQXG6146-38-24 07:04:001.5[facility]annCHEM LFNUB4373-52-49 07:04:003.8[facility]annCHEM YEIGR5220-15-47 07:04:002.7[facility] BwihaogUBKDEYDIAJ3945-39-99 07:04:0063.1[facility] NBPDDTPYIL0489-14-78 07:04:0027.1[facility] SylzheaKGFLAHBQQD1341-36-49 07:04:00 7.2[facility] HzdwxpiVJQHQQNAKM0718-75-66 07:04:000.1[facility]annHEMATOLOGY 2014-11-25 07:04:002.2[facility] CwktjftIIHHKIKRQY0188-46-69 07:04:000.4[facility] HuypjiqUKOWCEROAL6011-26-56 07:04:003.1[facility] DfcvmudFRFUIEENQO6629-27-27 07:04:000.3[facility] DjkdniiDJWKWMFCHJ9167-73-32 07:04:001.3[facility] PGFLFLTBKO8482-12-12 07:04:008.5[facility] WvpoqkaAHTRTFASIX7625-97-58 07:04:00 Test Item Value Reference Range Interpretation Comments MCH (test code = MCH) 31.6 pg 27.0-31.0 [facility] AlypcvzMAWLEYMIWD6390-53-17 07:04:0093.4[facility]annHEMATOLOGY 2014-11-25 07:04:0033.2[facility] DqddyqiHFAXFEHGVN5249-41-34 07:04:33879Rnexrbkr PwetazzPAYOHYBCBS5340-25-13 07:04:0013.1[facility] QzjwciiXGGXXNOFTW8921-63-82 07:04:0033.8[facility] JsnxqzuYRTKTMXYCR6929-80-29 07:04:0011.2[facility] NVGSVDVTUT6005-19-24 07:04:003.56[facility] DfbqkrhCVPEZVTQNP8561-55-19 07:04:00 4.9[facility] NcddnutJAUNZOEKTZ5564-79-65 07:04:001.14[facility]annHEMATOLOGY 2014-11-25 07:04:00 Test Item Value Reference Range Interpretation Comments PTT (test code = PTT) 28.5 s 22.9-35.8 [facility] YonzdmzLCWTEJWEYP3123-02-46 07:04:00 Test Item Value Reference Range Interpretation Comments PT (test code = PT) 14.7 s 12.0-14.7 [facility] HermannTHYROID JISWZ9906-98-04 07:04:003.190[facility]annURINE AND SFJPS8588-38-76 08:06:007[facility]UR[facility] AND TDYCF9551-70-37 08:06:002 [facility] IDLOR8621-70-55 08:06:00Negative (11/24/14 2:06 AM) [facility] GNSOX9119-76-68 08:06:00Negative (11/24/14 2:06 AM) [facility] XOSMS0620-50-19 08:06:00Negative (11/24/14 2:06 AM) [facility] KZKAB1241-07-92 08:06:006.5[facility] SNDKM1803-08-32 08:06:00Negative *NA*(11/24/14 2:06 AM)[facility] CFOFT3517-09-70 08:06:001.009[facility] AND QLJVQ1370-67-31 08:06:00 Clear (11/24/14 2:06 AM)[facility] NBIDO0312-45-32 08:06:00Yellow *NA*(11/24/14 2:06 AM)[facility]annCHEM CWSFS0885-72-66 07:51:001.2[facility]annCHEM RRDYB7869-49-72 07:51:003.2[facility]annCHEM QBCYF3470-39-68 07:51:0022[facility]annCHEM IBJNT5970-04-00 07:51:009.8[facility]annCHEM LQRDV9701-07-03 07:51:0029[facility]annCHEM NIKJK2569-55-44 07:51:38350 [facility]annCHEM HYGDQ5367-59-03 07:51:008.7[facility]annCHEM PANEL 2014-11-24 07:51:0029[facility]annCHEM OWXBX9416-00-78 07:51:0017[facility]annCHEM QXHKM5166-73-63 07:51:003.7[facility]annCHEM CBADM0775-94-28 07:51:006.9[facility]annCHEM ZRGQU2682-29-37 07:51:0028[facility]annCHEM FKELS0988-89-83 07:51:90919Pdiadnco HermannCHEM VLEAZ3349-21-58 07:51:003.8 [facility]annCHEM ISKHO5692-16-94 07:51:66456Wadhtgrj HermannCHEM PANEL 2014-11-24 07:51:001.7[facility]annCHEM XTKNO4780-65-87 07:51:0037[facility]annCHEM RCRKW9994-52-97 07:51:0037[facility]annCHEM ABCQP8643-74-08 07:51:000.4[facility] MjpmlkeHABCHVSLFN8422-15-31 07:51:000.4[facility] DBDRGBMTPK4684-47-69 07:51:001.1[facility] SffkoozTLVYIABHKZ5235-21-37 07:51:000.1 [facility] YvoqupbUTLQFPFWWW6276-45-81 07:51:0070.9[facility]annHEMATOLOGY 2014-11-24 07:51:006.7[facility] BfotaiqVWEFNEBMZW1572-94-49 07:51:0019.7[facility] VkyjpfvFSKYWPGSUD0813-00-82 07:51:002.3[facility] MovdhtaLBKGAPVWEF1602-71-56 07:51:004.0[facility] SugquhzVSYLVIQMSD9432-48-25 07:51:000.4[facility] VXFZOHVMCI8666-25-61 07:51:00 Test Item Value Reference Range Interpretation Comments PTT (test code = PTT) 28.2 s 22.9-35.8 [facility] MoxdzdpRDBJAPVOJB6232-11-52 07:51:00 Test Item Value Reference Range Interpretation Comments PT (test code = PT) 13.9 s 12.0-14.7 [facility] GwtoudeFJRRXKFIJP5467-28-16 07:51:001.07[facility]annHEMATOLOGY 2014-11-24 07:51:008.8[facility] DrnzvnoNQQICIXXXJ8908-57-25 07:51:005.7[facility] BvqwvqzEPAZOZGSPT3962-11-71 07:51:0094.9[facility] YqeohjpTKRRBSKMHY1486-98-33 07:51:003.73[facility] AzclqkrJCXEISWUKU7157-30-41 07:51:0013.3[facility] ETYGYQNTMI9987-37-62 07:51:0012.1[facility] HaisougKVVUBUYGHE9421-39-31 07:51:00 35.3[facility] RsiuzuzPFYVCORHYE8984-17-66 07:51:55668Ipuganhr HermannHEMATOLOGY 2014-11-24 07:51:0034.2[facility] KrvwkhoTLZLZAHMRL9602-95-51 07:51:00 Test Item Value Reference Range Interpretation Comments MCH (test code = MCH) 32.5 pg 27.0-31.0 [facility] GnqrclwCRTNFR4399-33-73 07:51:002.81[facility] UjcakboOTLTAH9139-77-69 07:51:0026[facility] EqbxvafKCWGIG1183-96-35 07:51:0059[facility] HermannLIPIDS 2014-11-24 07:51:48427Qgedfaoq JlljsttFHUROQ0044-20-57 07:51:0047[facility] XzjpehyKOJDPD9726-57-81 07:51:64358Zqoiqbde HermannSPECIAL GZFGZUBPM5699-93-30 07:51:005.6[facility]
[2020-05-30 15:33] LABS: Urine Bacteria 20-50 /HPF (<20); Urine Culture Reflex Order REFLEXED; Urine RBC 20-50 /HPF (NONE SEEN)
[2020-05-30 17:11] LABS: Absolute Lymphocytes (CBC) 1.2 K/uL (0.7-4.9); Basophils % 0.5 % (0-1.3); Lymphocytes % 14.8 % (15.3-44.8); MPV 8.1 fL (7.6-11.3); RBC Red Blood Cell Count 4.27 M/uL (3.86-4.86)
[2020-05-30] MEDS ORDERED: CEFTRIAXONE/SWI 1gm 1 GM/10 ML SYR ONE (17:22)
[2020-05-30 17:25] LABS: Potassium 3.1 mmol/L (3.5-5.1)
--- NOTE | 2020-05-30 18:04 | RAD REPORT ---
EXAM DESCRIPTION: CT - Abdomen Pelvis W Contrast - 05/30/2020 5:51 pm CLINICAL HISTORY: ABD PAIN COMPARISON: <Comparisons> TECHNIQUE: Biphasic, helical CT imaging of the abdomen and pelvis was performed following 100 ml non -ionic IV contrast. No oral contrast. All CT scans are performed using dose optimization technique as appropriate and may include automated exposure control or mA/KV adjustment according to patient size. FINDINGS: No suspicious findings in the lung bases. Diffuse fatty infiltration of the liver is present. No focal liver lesion. Spleen and pancreas show n o suspicious findings. Gallbladder and biliary tree are also without suspicious finding. Symmetric renal function is seen with no hydronephrosis or suspicious renal mass. No pyelonephritis o r acute parenchymal process. Cortical thinning is seen in the posterolateral lower pole right kidney. No perinephric stranding. No adrenal abnormalities. Urinary bladder is contracted. This accentuates wall thickness. There does appear to be some congesti on or edema of the wall and adjacent fat. A solitary focus of air is seen in the nondependent portion of the bladder possibly from catheterization. Uterus is absent. Pelvic floor laxity present. Multipl e phleboliths are seen. No dilated bowel loops or bowel wall thickening. Minimal diverticulosis in the sigmoid colon. No dive rticulitis or other active bowel process. No free air, free fluid or inflammatory stranding. No mass or bulky lymphadenopathy. Small fat only inguinal hernias are present. Disc and bone degenerative changes are present. 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 There i s degenerative gas in the L5-S1 disc space which shows prominent bulging. Dense arterial tree calcifications present. IMPRESSION: Cystitis of the urinary bladder is suspected without bladder mass. No pyelonephritis or acute renal parenchymal process. Fatty infiltration of the liver. No acute GI finding. Additional nonacute findings detailed in the wilfrido dy of the report.
--- NOTE | 2020-05-30 18:15 | ER ---
Nurse's Notes [facility] Name: Kristal You Age: 79 yrs Sex: Female : 1940 Arrival Date: 05/30/2020 Time: 13:35 Bed 17 Private MD: Khadijah Gurrola C Diagnosis: Urinary tract infection, site not specified Presentation: 05/30 13:46 Chief complaint: Patient states: "I have a bladder infection that started about 2 am". aa5 Pt reports urinary incontinence and lower abd pain. 13:46 Coronavirus screen: Client denies travel out of the [place] in the last 14 days. At this aa5 time, the client does not indicate any symptoms associated with coronavirus-19. Ebola Screen: Patient negative for fever greater than or equal to 101.5 degrees Fahrenheit, and additional compatible Ebola Virus Disease symptoms. Initial Sepsis Screen: Does the patient meet any 2 criteria? No. Patient's initial sepsis screen is negative. Does the patient have a suspected source of infection? Yes:. Risk Assessment: Do you want to hurt yourself or someone else? Patient reports no desire to harm self or others. Onset of symptoms was May 30, 2020. 13:46 Acuity: LUCINA 3 aa5 13:46 Method Of Arrival: Wheelchair aa5 Historical: - Allergies: 13:48 namutol; aa5 - PMHx: 13:48 Asthma; Atrial Fib; CVA; Hypertension; Hypothyroidism; UTI; aa5 - PSHx: 13:48 right knee replacement; Appendectomy; Cholecystectomy; Hysterectomy; Bladder aa5 suspension; rectocele/cystcele repair; juan m fundiplication; left shoulder surgery; Carpal Tunnel Repair; - Immunization history:: Adult Immunizations unknown. - Family history:: not pertinent. - Social history:: Smoking status: unknown. - Hospitalizations: : No recent hospitalization is reported. Screenin:20 Abuse screen: Denies threats or abuse. Nutritional screening: No deficits noted. Tuberculosis screening: No symptoms or risk factors identified. Fall Risk None identified. Assessment: 15:18 General: Appears in no apparent distress. Behavior is calm, cooperative, appropriate for age. Pain: Complains of pain in abdomen, left femoral area, left inguinal area and left iliac crest. Neuro: Level of Consciousness is awake, alert, Oriented to person, place, time, situation, Appropriate for age. Cardiovascular: Capillary refill < 3 seconds Patient's skin is warm and dry. Pulses are palpable in right radial artery and left radial artery. Respiratory: Airway is patent Respiratory effort is even, unlabored, Respiratory pattern is regular, symmetrical. : Urine is clear, Reports pain since 2am with urination. Derm: Skin is intact, is healthy with good turgor, Skin is dry. Vital Signs: 13:46 BP 141 / 82; Pulse 64; Resp 16 S; Temp 99.4(O); Pulse Ox 98% on R/A; aa5 13:50 BP 141 / 82; Pulse 64; Resp 18; Temp 99.4(O); Pulse Ox 98% on R/A; ks7 14:00 BP 124 / 49; Pulse 60; Resp 18; Pulse Ox 98% on R/A; ks7 15:00 BP 135 / 52; Pulse 61; Resp 18; Pulse Ox 98% on R/A; ks7 16:00 BP 146 / 67; Pulse 65; Resp 18; Pulse Ox 97% on R/A; ks7 17:58 BP 159 / 73; Pulse 71; Resp 18; Temp 98.3(O); Pulse Ox 100% on R/A; Pain 0/10; ks7 18:57 BP 152 / 66; Pulse 75; Resp 18; Temp 98.3(O); Pulse Ox 100% on R/A; Pain 0/10; ks7 ED Course: 13:35 Patient arrived in ED. as 13:35 Khadijah Gurrola MD is Private Physician. as 13:46 Arm band placed on. aa5 13:47 Roger Samuels MD is Attending Physician. rn 13:58 Triage completed. aa5 14:53 Urine Culture Sent. ks7 14:53 Urine Microscopic Only Sent. ks7 15:12 Mariella Carver, RN is Primary Nurse. 15:20 Patient has correct armband on for positive identification. Bed in low position. Call light in reach. Side rails up X2. Pulse ox on. NIBP on. 17:57 Patient moved back from MD. ks7 18:58 No provider procedures requiring assistance completed. IV discontinued, intact, ks7 bleeding controlled, No redness/swelling at site. Pressure dressing applied. Administered Medications: Discontinued: Rocephin 1 grams IV at calculated rate once; Given slow IV push per pharmacy instructions 17:21 Drug: Rocephin 1 grams Route: IV; Rate: calculated rate; Site: left antecubital; 19:14 Follow up: Response: No adverse reaction Outcome: 18:14 Discharge ordered by . rn 18:58 Discharged to home via wheelchair. ks7 18:58 Condition: good 18:58 Discharge instructions given to patient, Instructed on discharge instructions, medication usage, Demonstrated understanding of instructions, medications, Prescriptions given X 1. 19:15 Patient left the ED. Signatures: Analy Washington Roman, MD MD rn Calderon, Sara, RN RN aa5 Mariella Carver RN RN Karma Alford RN RN ks7
--- NOTE | 2020-05-30 18:15 | EDPHYS ---
Physician Documentation [facility] Name: Kristal You Age: 79 yrs Sex: Female : 1940 Arrival Date: 05/30/2020 Time: 13:35 Bed 17 Private MD: Khadijah Gurrola C ED Physician Roger Samuels HPI: 05/30 13:54 This 79 yrs old Female presents to ER via Unassigned with complaints of rn Urinary Problem. 13:54 The patient presents with urinary symptoms, dysuria, frequency, urgency. Onset: The rn symptoms/episode began/occurred this morning. Modifying factors: The symptoms are alleviated by nothing, the symptoms are aggravated by nothing. Severity of symptoms: At their worst the symptoms were mild, in the emergency department the symptoms are unchanged. The patient has experienced similar episodes in the past. The patient has not recently seen a physician. Reports thinks has another bladder infection, began this morning, reports urgency and dysuria, no fever, no vomiting/diarrhea, + intermittent lower abd pain, no COVID exposure.. Historical: - Allergies: 13:48 namutol; aa5 - PMHx: 13:48 Asthma; Atrial Fib; CVA; Hypertension; Hypothyroidism; UTI; aa5 - PSHx: 13:48 right knee replacement; Appendectomy; Cholecystectomy; Hysterectomy; Bladder aa5 suspension; rectocele/cystcele repair; juan m fundiplication; left shoulder surgery; Carpal Tunnel Repair; - Immunization history:: Adult Immunizations unknown. - Family history:: not pertinent. - Social history:: Smoking status: unknown. - Hospitalizations: : No recent hospitalization is reported. ROS: 13:54 Constitutional: Negative for fever, chills, and weight loss, Eyes: Negative for injury, rn pain, redness, and discharge, Neck: Negative for injury, pain, and swelling, Cardiovascular: Negative for chest pain, palpitations, and edema, Respiratory: Negative for shortness of breath, cough, wheezing, and pleuritic chest pain, Abdomen/GI: + lower abd pain Back: Negative for injury and pain, MS/Extremity: Negative for injury and deformity, Skin: Negative for injury, rash, and discoloration, Neuro: Negative for headache, weakness, numbness, tingling, and seizure. Exam: 13:54 Constitutional: This is a well developed, well nourished patient who is awake, alert, rn and in no acute distress. Head/Face: Normocephalic, atraumatic. Cardiovascular: Regular rate and rhythm. No pulse deficits. Respiratory: No increased work of breathing, no retractions or nasal flaring. Abdomen/GI: soft, no focal abd tenderness Skin: Warm, dry MS/ Extremity: Pulses equal, no cyanosis. Neurovascular intact. Full, normal range of motion. Equal circumference. Neuro: Awake and alert, GCS 15 Vital Signs: 13:46 BP 141 / 82; Pulse 64; Resp 16 S; Temp 99.4(O); Pulse Ox 98% on R/A; aa5 13:50 BP 141 / 82; Pulse 64; Resp 18; Temp 99.4(O); Pulse Ox 98% on R/A; ks7 14:00 BP 124 / 49; Pulse 60; Resp 18; Pulse Ox 98% on R/A; ks7 15:00 BP 135 / 52; Pulse 61; Resp 18; Pulse Ox 98% on R/A; ks7 16:00 BP 146 / 67; Pulse 65; Resp 18; Pulse Ox 97% on R/A; ks7 17:58 BP 159 / 73; Pulse 71; Resp 18; Temp 98.3(O); Pulse Ox 100% on R/A; Pain 0/10; ks7 18:57 BP 152 / 66; Pulse 75; Resp 18; Temp 98.3(O); Pulse Ox 100% on R/A; Pain 0/10; ks7 MDM: 13:47 Patient medically screened. rn 18:12 Differential diagnosis: kidney stone, urinary tract infection, diverticulitis. Data rn reviewed: vital signs, nurses notes, lab test result(s), radiologic studies, CT scan, and as a result, I will discharge patient. Counseling: I had a detailed discussion with the patient and/or guardian regarding: the historical points, exam findings, and any diagnostic results supporting the discharge/admit diagnosis, lab results, radiology results, the need for outpatient follow up, to return to the emergency department if symptoms worsen or persist or if there are any questions or concerns that arise at home. Special discussion: Based on the patient's Hx, exam, and Dx evaluation, there is no indication for emergent surgery or inpatient Tx. It is understood by the patient/guardian that if the Sx's persist or worsen they need to return immediately for re-evaluation. I discussed with the patient/guardian in detail that at this point there is no indication for admission to the hospital. It is understood, however, that if the symptoms persist or worsen the patient needs to return immediately for re-evaluation. ED course: + UTI, no acute findings other than cystitis on CT abdomen, will dc home with abx. . 05/30 13:53 Order name: Urine Culture rn 05/30 13:53 Order name: Urine Microscopic Only rn 05/30 15:07 Order name: Urine Dipstick--Ancillary (enter results) 05/30 15:34 Order name: Urine Microscopic Only; Complete Time: 16:02 EDMS 05/30 16:03 Order name: Basic Metabolic Panel rn 05/30 16:03 Order name: CBC with Diff rn 05/30 13:53 Order name: Urine Dipstick-Ancillary (obtain specimen); Complete Time: 14:53 rn 05/30 16:03 Order name: IV Saline Lock; Complete Time: 16:53 rn 05/30 16:03 Order name: Labs collected and sent; Complete Time: 16:53 rn 05/30 16:03 Order name: CT Abd/Pelvis - IV Contrast Only rn 05/30 17:13 Order name: CBC with Automated Diff; Complete Time: 17:48 EDMS 05/30 17:25 Order name: Basic Metabolic Panel; Complete Time: 17:48 EDMS 05/30 18:05 Order name: CT; Complete Time: 18:11 EDMS Administered Medications: Discontinued: Rocephin 1 grams IV at calculated rate once; Given slow IV push per pharmacy instructions 17:21 Drug: Rocephin 1 grams Route: IV; Rate: calculated rate; Site: left antecubital; 19:14 Follow up: Response: No adverse reaction Disposition: 05/30/20 18:14 Discharged to Home. Impression: Urinary tract infection, site not specified. - Condition is Stable. - Discharge Instructions: Urinary Tract Infection, Adult. - Prescriptions for cefpodoxime 100 mg Oral Tablet - take 2 tablet by ORAL route every 12 hours for 10 days take with food; 40 tablet. - Medication Reconciliation Form, Thank You Letter, Antibiotic Education, Prescription Opioid Use form. - Follow up: Private Physician; When: As needed; Reason: Recheck today's complaints, Re-evaluation by your physician. - Problem is new. - Symptoms have improved. Signatures: Dispatcher [employer] EDRoger Boyer MD MD rn Calderon, Audri RN RN aa5 Mariella Carver RN RN Corrections: (The following items were deleted from the chart) 19:15 18:14 05/30/2020 18:14 Discharged to Home. Impression: Urinary tract infection, site ah not specified. Condition is Stable. Forms are Medication Reconciliation Form, Thank You Letter, Antibiotic Education, Prescription Opioid Use. Follow up: Private Physician; When: As needed; Reason: Recheck today's complaints, Re-evaluation by your physician. Problem is new. Symptoms have improved. rn
[2020-05-30 19:26] VITALS: TEMP 98.3; O2SAT 100
[2020-05-30 19:27] VITALS: BP 152/66
[2020-05-30 22:14] LABS: Urine Blood 2+ (NEG); Urine Glucose NEGATIVE (NEG); Urine Protein 2+ (NEG); Urine pH 6.5 (5.0-7.0)
== END 2020-05-30 19:15 | disposition home or self-care (01) ==
LOC: ER 13:33
DX: N39.0 Urinary tract infection, site not specified (principal); I10 Essential (primary) hypertension; Z88.8 Allergy status to other drugs, medicaments and biological substances
CPT/HCPCS: 87088; 85025; 87086; 80048; 36415; 74177; 96374; 99284; Q9967; J0696; 81003; 81015

== ENCOUNTER 2020-06-29 11:14 | Inpatient (IN) | payer OTHER, MEDICARE ==
--- OUTSIDE RECORDS SUMMARY | 2020-06-29 11:18 | XMS REPORT | Continuity of Care Document ---
:1940 Author Organization [employer] [facility] [employer] Care Team Providers Name Role Phone [employer] [facility] Unavailable Un available Problems Problem Status Onset Classification Date Comments Sourc e Date Reported ISCHEMIC STROKE Active [address] LFLT TRANSFER[id number] Atrial fibrillation Active Problem 06/17/2017 [place] [facility] Consult Personal history of Active Problem 06/17/2017 [place] transient ischemic C ardiology attack [TIA], and Co nsult cerebral infarction without residual deficits Palpitations Active Problem 06/17/2017 [place] [facility] Consult Transient cerebral Active Problem 06/17/2017 [place] ischemic attack, Car diology unspecified Consult Bradycardia, Active Problem 06/17/2017 [place] unspecified Cardiolo gy Consult Personal history of Active Problem 06/17/2017 [place] transient ischemic C ardiology attack (TIA), and Co nsult cerebral infarction without residual deficits History of falling Active Problem 06/17/2017 [place] [facility] Consult Abnormal Active Problem 06/17/2017 [place] electrocardiogram Ca rdiology [ECG] [EKG] Consult Morbid (severe) Active Problem 06/17/2017 [place] obesity due to excess Cardiology calories Consult Arthropathy, Active Problem 06/17/2017 [place] unspecified Cardiolo gy Consult Major depressive Active Problem 06/17/2017 [place] disorder, single Car diology episode, unspecified Consult Chest pain, Active Problem 06/17/2017 [place] unspecified Cardiolo gy Consult Shortness of breath Active Problem 06/17/2017 [place] [facility] Consult Constipation, Active Problem 06/17/2017 [place] unspecified Cardiolo gy Consult Hypothyroidism, Active Problem 06/17/2017 [place] unspecified Cardiolo gy Consult Hyperlipidemia, Active Problem 06/17/2017 [place] unspecified Cardiolo gy Consult Chronic kidney Active Problem 06/17/2017 [place] disease, unspecified Cardiology Consult Insomnia, unspecified Active Problem 06/17/2017 [place] [facility] Consult Nonrheumatic mitral Active Problem 06/17/2017 [place] (valve) insufficiency Cardiology Consult Paroxysmal atrial Active Problem 06/17/2017 [place] fibrillation Cardiol ogy Consult 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 Consult Essential (primary) Active Problem 06/17/2017 [place] hypertension Cardiol ogy Consult Chronic kidney Active Problem 06/17/2017 [facility] ton disease, Stage III C ardiology (moderate) Consult Congestive 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 [place] failure, unspecified Cardiology Consult Hypertensive heart and Active Diagnosis 06/17/2017 [place] chronic kidney disease Cardiology with heart failure and Consult stage 1 through stage 4 chronic kidney disease, or unspecified chronic kidney disease Hypertension essential Active Problem 06/17/2017 [place] benign Cardiology Consult Occlusion and stenosis Active Problem 06/17/2017 [place] of carotid artery Ca rdiology without mention of C onsult cerebral infarction Insomnia, unspecified Active Problem 06/17/2017 [place] [facility] Consult Mitral valve disorders Active Problem 06/17/2017 [place] [facility] Consult Other and unspecified Active Problem 06/17/2017 [place] hyperlipidemia Cardi ology Consult Unspecified Active Problem 06/17/2017 [place] hypothyroidism Cardi ology Consult Obesity, unspecified Active Problem 06/17/2017 [place] [facility] Consult Other malaise and Active Problem 06/17/2017 [place] fatigue Cardiology Consult Shortness of breath Active Problem 06/17/2017 [place] [facility] Consult Chest pain, Active Problem 06/17/2017 [place] unspecified Cardiolo gy Consult Chronic diastolic Active Problem 06/17/2017 [place] (congestive) heart C ardiology failure Consult Unspecified Active Problem 06/17/2017 [place] constipation Cardiol ogy Consult Impaired fasting blood Active Problem 06/17/2017 [place] sugar Cardiology Consult Overactive bladder Active Problem 06/17/2017 [place] [facility] Consult Anxiety disorder, Active Problem 06/17/2017 [place] unspecified Cardiolo gy Consult Incontinence without Active Problem 06/17/2017 [place] sensory awareness Ca rdiology Consult Encounter for Active Problem 06/17/2017 [place] screening for diabetes Cardiology mellitus Consult Retention of urine, Active Problem 06/17/2017 [place] unspecified Cardiolo gy Consult Hypertensive heart and Active Problem 06/17/2017 [place] chronic kidney Cardi ology disease, benign, with Consult heart failure and with chronic kidney disease stage I through stage IV, or unspecified Depressive disorder, Active Problem 06/17/2017 [place] not elsewhere Cardio logy classified Consult Urinary tract Active Problem 06/17/2017 [place] infection, site not Cardiology specified Consult Unspecified Active Problem 06/17/2017 [place] arthropathy, site Ca rdiology unspecified Consult Frequency of Active Problem 06/17/2017 [place] micturition Cardiolo gy Consult Morbid obesity Active Problem 06/17/2017 [facility] ton Cardiology Consult Female genuine stress Active Problem 06/17/2017 [place] incontinence Cardiol ogy Consult Nonspecific abnormal Active Problem 06/17/2017 [place] electrocardiogram Ca rdiology (ECG) (EKG) Consult Palpitations Active Problem 06/17/2017 [place] Cardiology Consult Other specified Active Problem 06/17/2017 [place] cardiac dysrhythmias Cardiology Consult Upper respiratory Active Problem 06/17/2017 [place] tract hypersensitivity Cardiology reaction, site Consu lt unspecified Unspecified transient Active Problem 06/17/2017 [place] cerebral ischemia Ca rdiology Consult Personal history of Active Problem 06/17/2017 [place] fall Cardiology Consult Acute upper Active Problem 06/17/2017 [place] respiratory infections Cardiology of unspecified site Consult Gastroesophageal Resolved Problem 11/28/2014 [facility] reflux disease Medic al (disorder) Center Hypercholesterolemia Resolved Problem 11/28/2014 [facility] (disorder) [facility] Hyperlipidemia Resolved Problem 11/28/2014 [facility] (disorder) [facility] Hypertensive disorder, Resolved Problem 11/28/2014 [facility] systemic arterial Me dical (disorder) Center Hypothyroidism Resolved Problem 11/28/2014 [facility] (disorder) [facility] CVA Active [facility] Medications Medication Details Route Status Patient Ordering Order Source Instructions Provider Date Eliquis 1 tablet Orally Active 5 MG Orally [facility] [place] twice a day 2016 Cardiology Consult Edarbyclor 1 tablet Orally Active 40-25 MG [facility] [place] Orally Once a 2017 Cardiology day Consult Edarbyclor 1 tablet Orally Active 40-25 MG [facility] [place] Orally Once a 2017 Cardiology day Consult Dofetilide 1 capsule Orally Active 500 MCG [facility] [place] Orally Twice 2017 Cardiology a day Consult Cipro 1 tablet Orally Active 500 MG Orally [facility] [place] Twice a day 2016 Cardiology Consult Warfarin Notes: Nurse Inactive 11/26/ [facility] to ensure 2015 Medical documentation Center of [...] valsartan Notes: Same Inactive as [place] 2014 [facility] Protonix Notes: Tablet No Longer [place] should not be Active 2014 [facility] chewed or Center crushed. (Same as: Protonix) Atenolol Notes: (Same No Longer [place] As:Tenormin) Active 2014 [facility] valsartan 320 mg, No Longer [place] [...] No Longer [place] porcine Active 2014 [facility] heparin Pool Plavix Notes: (Same No Longer [place] As: Plavix) Active 2014 [facility] Tylenol Notes: Do not No Longer [place] exceed 4 Active 2014 Medical gm/day. Center (Same as: Tylenol) atorvastatin Notes: (Same No Longer [place] as: Lipitor) Active 2014 [facility] Bupropion Notes: (Do No Longer [place] not crush) Active 2014 Medical (Same As: Pool Wellbutrin SR) valsartan 40 mg, Route: Inactive [place] PO, BID, 2015 Medical Dosing Weight Center 114.318, kg, Start date: 11/24/14 17:00:00, Duration: 30 day, Stop date: 12/24/14 9:00:00 Triiodothyronine Notes: (Same No Longer [place] as: Cytomel) Active 2014 [facility] Atenolol 100 MG 50 mg = 0.5 No Longer [facility] Oral Tablet tab, PO, BID, Active 2014 Medica l # 30 tab, 0 Center Refill(s) pravastatin 40 mg 40 mg = 1 No Longer [facility] oral tablet tab, PO, Active 2014 Medical Bedtime, # 30 Center tab, 0 Refill(s) Furosemide 40 MG 40 mg = 1 No Longer [facility] Oral Tablet tab, PO, Active 2014 Medical [Lasix] Daily, # 30 Center tab, 0 Refill(s) spironolactone 25 25 mg = 1 No Longer [facility] mg oral tablet tab, PO, Active 2014 Medical Daily, # 60 Center tab, 0 Refill(s) Potassium 20 mEq = 1 No Longer [place] Chloride 20 MEQ tab, PO, Active 2014 Medical Extended Release Daily, 0 Center Tablet Refill(s) omeprazole 40 mg 40 mg = 1 [place] oral delayed cap, PO, 2015 Medical release capsule Daily, # 30 Cent er cap, 0 Refill(s) Metolazone 5 MG 5 mg = 1 tab, No Longer [facility] Oral Tablet PO, Daily, # Active 2014 [...] [place] MG/ACTUAT Metered INHALATION, Active 2014 [place] dical Dose Inhaler Q6H, as Center [Ventolin] needed for wheezing, # 17 gm, 0 Refill(s) levothyroxine 100 100 microgram Active [facility] mcg (0.1 mg) oral = 1 tab, PO, 2014 M edical tablet QAM, # 30 Center tab, 0 Refill(s) doxazosin 4 mg 4 mg = 1 tab, Active [facility] oral tablet PO, Daily, # 2015 Medical 30 tab, 0 Center Refill(s) valsartan 320 mg 320 mg = 1 No Longer [facility] oral tablet tab, PO, Active 2014 Medical Daily, # 30 Center tab, 0 Refill(s) Triiodothyronine Notes: (Same Inactive [facility] [place] [facility] as: Cytomel) [address] [place] [address] Reglan Notes: (Same Inactive [facility] as: Reglan) [address] [place] [address] Magnesium Sulfate 2 gm, 50 mL, Inactive [facility] Route: IVPB, 2014 Medical Drug form: Center [...] Saline Flush 0.9% Notes: (Same No Longer [facility] as: BD Active 2014 [facility] Posiflush) Center Versed Notes: (Same Inactive [facility] as: Versed) [address] [place] [address] Pravastatin 40 mg = 1 Inactive [facility] Sodium 40 MG Oral tab, PO, 2015 Medic al Tablet Bedtime, # 30 Center [Pravachol] tab, 0 Refill(s) aspirin 0 Refill(s) Inactive [address] Fenofibrate 160 160 mg = 1 Inactive [place] Oral Tablet tab, PO, 2015 Medical Daily, # 30 Center tab, 0 Refill(s) Atenolol 0 Refill(s) Inactive [address] valsartan 320 mg 320 mg = 1 Inactive [facility] oral tablet tab, PO, 2014 Medical Daily, # 30 Center tab, 0 Refill(s) Potassium 0 Refill(s) Inactive [facility] Chloride 20 MEQ 2015 [facility] Extended Release Center Tablet Metolazone 5 MG 5 mg = 1 tab, Inactive [place] Oral Tablet PO, Daily, # 2015 Medical 30 tab, 0 Center Refill(s) Furosemide 40 MG 40 mg = 1 Inactive [place] Oral Tablet tab, PO, 2014 Medical [Lasix] Daily, # 30 Center tab, 0 Refill(s) liothyronine 5 5 microgram = Inactive [facility] mcg oral tablet 1 tab, PO, 2014 Medic al Daily, # 30 Center tab, 0 Refill(s) Omeprazole 0 Refill(s) Inactive [address] spironolactone 25 0 Refill(s) Inactive [facility] [place] [facility] mg oral tablet [address] [place] [address] Zofran Notes: (Same Inactive [facility] as: Zofran) [address] [place] [address] Tylenol Notes: Do not Inactive [facility] exceed 4 2015 Medical gm/day. Center (Same as: Tylenol) Sodium Chloride 1,000 mL, No Longer [place] 0.154 MEQ/ML Rate: 75 Active 2014 Medical Injectable ml/hr, Infuse Center Solution over: 13.3 hr, Route: IV, Total Volume: 1,000, Start date: 11/23/14 23:06:00, Duration: 30 day, Stop date: 12/23/14 23:05:00 Saline Flush 0.9% Notes: (Same No Longer [facility] as: BD Active 2014 Medical Posiflush) Center Acetaminophen Notes: Do not No Longer [facility] exceed 4 Active 2014 Medical gm/day. Center [...] Alexandre as 23-valent vaccine [facility] Results Order Name Results Value Reference Date Interpretation Comments Katarina rce Range CHEM PANEL Magnesium Lvl 2.1 1.8 - 2.4 11/26 [place] [facility] CHEM PANEL Phosphorus 2.8 2.5 - 4.5 11/26 [facility] CHEM PANEL eGFR 40 11/26 <sup>1</sup>Re [...] values reflect the clinical guidelines<br/ >of the [place] [employer]. CHEM PANEL BUN 18 7 - 22 11/26 [facility] CHEM PANEL Creatinine 1.3 0.5 - 1.4 11/26 [facility] CHEM PANEL Sodium Lvl 136 135 - 145 11/26 [facility] CHEM PANEL Chloride Lvl 102 95 - 109 11/26 [place] [facility] CHEM PANEL Potassium Lvl 3.5 3.5 - 5.1 11/26 [facility] CHEM PANEL Calcium Lvl 9.0 8.5 - 10.5 02 [facility] CHEM PANEL CO2 25 24 - 32 02 [facility] CHEM PANEL AGAP 12.5 10.0 - 02/ 20.0 [facility] HEMATOLOGY RDW 13.1 11.5 - 02/ 14.5 /2014 [facility] HEMATOLOGY MCH 32.4 27.0 - 02 31.0 [facility] HEMATOLOGY MCV 93.5 80.0 - 02 98.0 /2014 [facility] HEMATOLOGY MCHC 34.6 32.0 - 02 36.0 [facility] HEMATOLOGY Hct 33.6 36.0 - 02 48.0 /2014 [facility] HEMATOLOGY Hgb 11.6 12.0 - 02 16.0 /2014 [facility] HEMATOLOGY RBC 3.60 4.20 - 02 5.40 /2014 [facility] HEMATOLOGY WBC 4.6 3.7 - 10.4 02 [facility] HEMATOLOGY MPV 8.3 7.4 - 10.4 02/ [facility] HEMATOLOGY Platelet 149 133 - 450 02 [facility] HEMATOLOGY Segs 62.3 45.0 - 02 75.0 [facility] HEMATOLOGY Lymphocytes # 1.2 1.0 - 5.5 02 [facility] HEMATOLOGY Monocytes # 0.4 0.0 - 0.8 02 [facility] HEMATOLOGY Eosinophils 3.0 0.0 - 4.0 02 [facility] HEMATOLOGY Lymphocytes 26.2 20.0 - 02/ 40.0 [facility] HEMATOLOGY Segs-Bands # 2.9 1.5 - 8.1 11/26 [facility] HEMATOLOGY Basophils 0.5 0.0 - 1.0 02 [facility] HEMATOLOGY Monocytes 8.0 2.0 - 12.0 02/ [facility] HEMATOLOGY Eosinophils # 0.1 0.0 - 0.5 02 [facility] CHEM PANEL Phosphorus 3.1 2.5 - 4.5 0203 [facility] CHEM PANEL eGFR 34 11/25 <sup>2</sup>Re [...] PANEL CO2 25 24 - 32 11/25 [facility] CHEM PANEL AGAP 12.8 10.0 - 11/25 [facility] 20. [facility] CHEM PANEL Calcium Lvl 8.7 8.5 - 10.5 11/25 [facility] CHEM PANEL Chloride Lvl 104 95 - 109 11/25 [facility] CHEM PANEL BUN 23 7 - 22 11/25 [facility] CHEM PANEL Sodium Lvl 138 135 - 145 11/25 [facility] CHEM PANEL Glucose Lvl 82 70 - 99 11/25 <sup>5</sup>In terpretive Medical Data: Adult Center reference range values reflect the clinical guidelines<br/ >of the [place] [employer]. CHEM PANEL Creatinine 1.5 0.5 - 1.4 11/25 [facility] CHEM PANEL Potassium Lvl 3.8 3.5 - 5.1 11/25 [facility] CHEM PANEL Magnesium Lvl 2.7 1.8 - 2.4 11/25 [facility] HEMATOLOGY Segs 63.1 45.0 - 11/25 [facility] 75.0 [facility] HEMATOLOGY Lymphocytes 27.1 20.0 - 02 [place] 40.0 /2014 [facility] HEMATOLOGY Monocytes 7.2 2.0 - 12.0 11/25 [facility] HEMATOLOGY Eosinophils # 0.1 0.0 - 0.5 11/25 [facility] HEMATOLOGY Eosinophils 2.2 0.0 - 4.0 / [facility] HEMATOLOGY Basophils 0.4 0.0 - 1.0 11/25 [facility] HEMATOLOGY Segs-Bands # 3.1 1.5 - 8.1 11/25 [facility] HEMATOLOGY Monocytes # 0.3 0.0 - 0.8 11/25 [facility] HEMATOLOGY Lymphocytes # 1.3 1.0 - 5.5 11/25 [facility] HEMATOLOGY MPV 8.5 7.4 - 10.4 11/25 [facility] HEMATOLOGY MCH 31.6 27.0 - 11/25 31.0 [facility] HEMATOLOGY MCV 93.4 80.0 - 11/25 98.0 /2014 [facility] HEMATOLOGY Hct 33.2 36.0 - 11/25 [place] 48.0 /2014 [facility] HEMATOLOGY Platelet 151 133 - 450 11/25 [facility] HEMATOLOGY RDW 13.1 11.5 - 11/25 14.5 /2014 [facility] HEMATOLOGY MCHC 33.8 32.0 - 11/25 36.0 /2014 [facility] HEMATOLOGY Hgb 11.2 12.0 - 02 16.0 [facility] HEMATOLOGY RBC 3.56 4.20 - 02 [place] 5.40 /2014 [facility] HEMATOLOGY WBC 4.9 3.7 - 10.4 11/25 [facility] HEMATOLOGY INR 1.14 0.85 - 02 [...] Seconds HEMATOLOGY PT 14.7 12.0 - 11/25 [facility] 14.7 [facility] THYROID TSH 3.190 0.360 - 11/25 [place] PANEL 3.740 /2014 [facility] URINE AND UA <=1.0 0.1 - 1.0 11/24 [facility] Urobilinogen mg/dL /2014 [facility] URINE AND UA Renal Epi 7 <=0 /LPF 11/24 [facility] /2014 [facility] URINE AND UA Sq Epi Moderate Few /LPF 11/24 [facility] STOOL /LPF /2014 [facility] URINE AND UA WBC 2 0 - 5 11/24 [facility] [address] [place] [address] URINE AND UA Nitrite Negative Negative 11/24 [facility] (11/24/14 2:06 AM) /2014 [facility] URINE AND UA Leuk Est Negative Negative 11/24 [facility] (11/24/14 2:06 AM) /2014 [facility] URINE AND UA Blood Negative Negative 11/24 [facility] (11/24/14 2:06 AM) /2014 [facility] URINE AND UA Protein Negative Negative 11/24 [facility] mg/dL mg/dL /2014 [facility] URINE AND UA pH 6.5 5.0 - 8.0 11/24 [facility] [address] [place] [address] URINE AND UA Glucose Negative Negative 11/24 [facility] mg/dL mg/dL [facility] URINE AND UA Bili Negative Negative 11/24 [facility] *NA* /2014 [facility] (11/24/14 2:06 AM) Pool URINE AND UA Ketones Negative Negative 11/24 [facility] mg/dL mg/dL /2014 [facility] URINE AND UA Spec Grav 1.009 <=1.030 11/24 [facility] /[address] [place] [address] URINE AND UA Turbidity Clear Clear 11/24 [facility] (11/24/14 2:06 AM) /2014 [facility] URINE AND UA Color Yellow Yellow 11/24 [facility] *NA* /2014 [facility] (11/24/14 2:06 AM) Pool CHEM PANEL A/G Ratio 1.2 0.7 - 1.6 11/24 [facility] [address] [place] [address] CHEM PANEL Globulin 3.2 2.0 - 4.0 11/24 [facility] CHEM PANEL B/C Ratio 22 6 - 25 11/24 [facility] CHEM PANEL AGAP 9.8 10.0 - 02 [facility] 20.0 /2014 [facility] CHEM PANEL eGFR 29 02 <sup>3</sup>Re [facility] sult Comment: Medical The eGFR is [...] values reflect the clinical guidelines<br/ >of the [place] [employer]. CHEM PANEL Calcium Lvl 8.7 8.5 - 10.5 11/24 [facility] CHEM PANEL ALT 29 0 - 65 11/24 2014 [facility] CHEM PANEL AST 17 0 - 37 11/24 [facility] CHEM PANEL Albumin Lvl 3.7 3.5 - 5.0 11/24 [facility] CHEM PANEL Total Protein 6.9 6.4 - 8.4 11/24 [facility] CHEM PANEL CO2 28 24 - 32 11/24 [facility] CHEM PANEL Chloride Lvl 103 95 - 109 11/[address] [facility] CHEM PANEL Potassium Lvl 3.8 3.5 - 5.1 11/24 [facility] CHEM PANEL Sodium Lvl 137 135 - 145 11/24 [facility]2014 [facility] CHEM PANEL Creatinine 1.7 0.5 - 1.4 02 [facility] Lvl [facility] CHEM PANEL BUN 37 7 - 22 11/24 [facility] CHEM PANEL Alk Phos 37 39 - 136 11/24 [facility] CHEM PANEL Bili Total 0.4 0.2 - 1.3 11/24 [facility] [address] [place] [address] HEMATOLOGY Monocytes # 0.4 0.0 - 0.8 11/[address] [facility] s [facility] HEMATOLOGY Lymphocytes # 1.1 1.0 - 5.5 11/24 [facility] xa [facility] HEMATOLOGY Eosinophils # 0.1 0.0 - 0.5 11/24 [facility] HEMATOLOGY Segs 70.9 45.0 - 02 [facility] 75.0 [facility] HEMATOLOGY Monocytes 6.7 2.0 - 12.0 11/24 [facility] HEMATOLOGY Lymphocytes 19.7 20.0 - 11/24 40.0 [facility] HEMATOLOGY Eosinophils 2.3 0.0 - 4.0 11/[address] [facility] HEMATOLOGY Segs-Bands # 4.0 1.5 - 8.1 11/24 [facility] HEMATOLOGY Basophils 0.4 0.0 - 1.0 11/24 [facility] HEMATOLOGY PTT 28.2 22.9 - 02 <sup>10</sup>I [facility] as 35.8 nterpretive Medical Data: Heparin Center Therapeutic Range: 57 - 92 Second[place] HEMATOLOGY PT 13.9 12.0 - 02 14.7 [facility] HEMATOLOGY INR 1.07 0.85 - 11/24 <sup>8</sup>In [facility] as 1.17 terpretive Medical Data: Center RECOMMENDED RANGES FOR PROTIME INR:
2.0-3.0 for most medical and surgical thromboembolic states.
2.5-3.5 for artificial heart valves and recurrent embolism.

INR SHOULD BE USED ONLY FOR PATIENTS ON STABLE ANTICOAGULANT THERAPY. HEMATOLOGY MPV 8.8 7.4 - 10.4 02 [facility] HEMATOLOGY WBC 5.7 3.7 - 10.4 11/[address] HEMATOLOGY MCV 94.9 80.0 - 02/02 [facility] 98.0 /2014 [facility] HEMATOLOGY RBC 3.73 4.20 - 11/24 [facility] 5.40 /2014 [facility] HEMATOLOGY RDW 13.3 11.5 - 11/24 [facility] 14.5 /2014 [facility] HEMATOLOGY Hgb 12.1 12.0 - 11/24 [facility] 16.0 /2014 [facility] HEMATOLOGY Hct 35.3 36.0 - 11/24 [facility] 48.0 /2014 [facility] HEMATOLOGY Platelet 158 133 - 450 02 [facility] HEMATOLOGY MCHC 34.2 32.0 - 02 [facility] 36.0 /2014 [facility] HEMATOLOGY MCH 32.5 27.0 - 11/24 [facility] 31.0 /2014 [facility] LIPIDS CHD Risk 2.81 3.90 - 11/24 [facility] 5.80 /2014 [facility] LIPIDS VLDL 26 11/24 [facility] LIPIDS LDL 59 <=99 mg/dL 11/24 [facility] (Calculated) [facility] LIPIDS Trig 128 <=149 11/24 [facility] mg/dL [facility] LIPIDS HDL 47 >=61 mg/dL 11/24 [facility] LIPIDS Chol 132 <=199 11/24 [facility] mg/dL [facility] SPECIAL Hgb A1C 5.6 <=5.6 % 11/24 [facility] CHEMISTRY [facility] Pathology Reports No Data Provided for This Section Diagnostic Reports Report Value Date Source Neck wo contrast MRA EXAM: MRI BRAIN 11/24/2014 [facility] dical EXAM: MRA BRAIN Center EXAM: [...] caliber. No aneurysm is identified. Right type COMMERCIAL LOAN REVIEWER is present, a normal variant. There is [...] wo contrast MRA EXAM: MRI BRAIN 11/24/2014 [facility] edical EXAM: MRA BRAIN Center EXAM: MRA [...] caliber. No aneurysm is identified. Right type COMMERCIAL LOAN REVIEWER is present, a normal variant. There is [...] wo contrast MRI EXAM: MRI BRAIN 11/24/2014 [facility] edical EXAM: MRA BRAIN Center EXAM: MRA [...] caliber. No aneurysm is identified. Right type COMMERCIAL LOAN REVIEWER is present, a normal variant. There is [...] [facility] Systolic (mm Hg) 172 11/26/2014 [facility] Diastolic (mm Hg) 79 11/26/2014 [facility] Heart Rate 57 11/26/2014 [facility] Temperature Oral (F) 97.5 F 11/26/2014 [facility] Temperature Oral (F) 97.5 F 11/26/2014 [facility] Heart Rate 69 11/26/2014 [facility] Diastolic (mm Hg) 79 11/26/2014 [facility] Respitory Rate 18 11/26/2014 [facility] Systolic (mm Hg) 166 11/26/2014 [facility] Respitory Rate 16 11/26/2014 [facility] Systolic (mm Hg) 157 11/26/2014 [facility] Diastolic (mm Hg) 66 11/26/2014 [facility] Heart Rate 65 11/24/2014 [facility] Weight 114.318 11/24/2014 [facility] BMI Calculated 43.26 11/24/2014 [facility] Height 162.56 cm 11/24/2014 [facility] Encounters Location Location Encounter Encounter Reason Attending ADM ND Stat us Source Details Type Number For Provider Date Date Visit [facility] [id number] Bennett Salmon 11/24 11/26 [facility] /2014 [facility] PT/INR 3.0 [id number] 12/19 12/19 [facility] [id number]- /2014 [facility] [id number] y [facility] [place] PT/INR 3.0 [id number] 12/19 12/19 [facility] 9-2lk5-16x4- /2014 [facility] [id number] [facility] [place] PT/INR 3.0 [id number] 12/19 12/19 [facility] [id number]-h8y7- /2014 [facility] [id number] [facility] [place] PT/INR 3.0 [id number] 12/19 12/19 [facility] l-[id number]-[id number]- /2014 [facility] [id number] [facility] [place] Unknown [id number] 12/19 12/19 [facility] y-504c-wa79- /2014 [facility] [id number] y [facility] [place] Unknown [id number] 12/19 12/19 [facility] r-[id number]- /2014 [facility] [id number] [facility] [place] Unknown [id number] 12/19 12/19 [facility] c-3084-98lg- /2014 [facility] [id number] y [facility] [place] Unknown [id number] 12/19 12/19 [facility] 6-465h-r80n- /2014 [facility] [id number] [facility] [place] PT/INR 3.0 [id number] 12/19 12/19 [facility] [id number]- /2014 [facility] [id number] [facility] [place] PT/INR 3.0 [id number] 12/19 12/19 [facility] 6-1856-8w04- /2014 [facility] [id number] [facility] [place] Unknown [id number] 12/19 12/19 [facility] 6-2403-4r5e- /2014 [facility] [id number] [facility] [place] Unknown [id number] 12/19 12/19 [facility] 4-8dn9-r5oe- /2014 [facility] [id number] [facility] [place] Unknown [id number] 03/23 03/23 [facility] [id number]-k5it- /2014 [facility] [id number] [facility] [place] Unknown [id number] 03/23 03/23 [facility] t-[id number]-81s7- /2014 [facility] [id number] [facility] [place] Unknown [id number] 03/23 03/23 [facility] 8-2169-f5o4- /2014 [facility] [id number] [facility] [place] Unknown [id number] 03/23 03/23 [facility] 0-4969-8pn2- /2014 [facility] [id number] [facility] [place] Unknown [id number] 03/23 03/23 [facility] u-101s-sw23- /2014 [facility] [id number] [facility] [place] Unknown [id number] 03/23 03/23 [facility] 0-8ao4-6671- /2014 [facility] [id number] [facility] [place] Unknown [id number] 08/12 08/12 [facility] t-5s86-3p1o- /2014 [facility] [id number] [facility] [place] Unknown [id number] 08/12 08/12 [facility] 1-5080-t88o- /2014 [facility] [id number] [facility] [place] Unknown [id number] 08/12 08/12 [facility] 6-6qs4-mf74- /2014 [facility] [id number] [facility] [place] Unknown [id number] 08/12 08/12 [facility] 1-247e-0h67- /2014 [facility] [id number] [facility] [place] Unknown [id number] 08/12 08/12 [facility] 8-0946-1s06- /2014 [facility] [id number] [facility] [place] Unknown [id number] 08/12 08/12 [facility] 5-0d91-vv3b- /2014 [facility] [id number] [facility] [place] Unknown [id number] 01/28 01/28 [facility] k-7121-83cl- /2015 [facility] [id number] [facility] [place] Unknown [id number] 01/28 01/28 [facility] 0-497r-s388- /2015 [facility] [id number] [facility] [place] Unknown [id number] 01/28 01/28 [facility] 3-762n-pq55- /2015 [facility] [id number] [facility] [place] Unknown [id number] 01/28 01/28 [facility] 6-1z7t-f53j- /2015 [facility] [id number] [facility] [place] Unknown [id number] 01/28 01/28 [facility] 7-3h89-b0f9- /2015 [facility] [id number] y [facility] [place] Unknown [id number] 01/28 01/28 [facility] 3-1830-ngd2- /2015 [facility] [id number] [facility] [place] Unknown [id number] 03/11 03/11 [facility] o-4621-2llu- /2015 [facility] [id number] [facility] [place] Unknown [id number] 03/11 03/11 [facility] y-0807-104d- /2015 [facility] [id number] [facility] [place] Unknown [id number] 03/11 03/11 [facility] 7-3596-l3ko- /2015 [facility] [id number] [facility] [place] Unknown [id number] 03/11 03/11 [facility] i-27dg-4319- /2015 [facility] [id number] y [facility] [place] Unknown [id number] 03/11 03/11 [facility] c-2411-9vm8- /2015 [facility] [id number] y [facility] [place] Unknown [id number] 04/15 04/15 [facility] 2-38xy-18b5- /2015 [facility] [id number] y [facility] [place] Unknown [id number] 04/15 04/15 [facility] y-6mb7-kmq1- /2015 [facility] [id number] [facility] [place] Unknown [id number] 04/15 04/15 [facility] 3-22k5-ogm7- /2015 [facility] [id number] y [facility] [place] Unknown [id number] 04/15 04/15 [facility] 0-6007-8939- /2015 [facility] [id number] y Consult [place] Unknown [id number] 04/15 04/15 [facility] m-2kzj-fq05- /2015 [facility] [id number] y [facility] [place] Unknown [id number] 04/15 04/15 [facility] n-352s-w482- /2015 [facility] [id number] [facility] [place] Unknown [id number] 04/15 04/15 [facility] i-1081-71yr- /2015 [facility] [id number] y [facility] [place] Unknown [id number] 04/15 04/15 [facility] 9-8467-83e6- /2015 [facility] [id number] [facility] [place] Other [id number] 09/09 09/09 [facility] 5-93gq-r420- /2015 [facility] [id number] y Consult [place] Other [id number] 09/09 09/09 [facility] 2-1hxn-j521- /2015 [facility] [id number] y Consult [place] Unknown [id number] 12/20 12/20 [facility] [id number]-u3ww- /2016 [facility] [id number] y Consult Procedures Procedure Code Date Perfomer Comments Source Knee replacement [id number] [facility] Assessment and Plan Assessment and Plan Date Source Extracted from:Title: Stroke Follow Up 11/26/2014 [facility] Author: Leida Alfaro Date: 11/26/14 Arranged for patient to follow up with [facility] on January 06, 2015 at 10:30am with DAMIÁN Cardona/Dr. Diallo. Patient is aware and agreeable to appointment. Will remain available as needed. Leida Alfaro LMSW [facility]#[id number] Transitional [employer] Addendum by Leida Alfaro on 11/26/2014 13:11 Patient will also follow up with her Car diologist, Dr. David Salmon [phone], to monitor her PT INR on Friday, November 28, 2014 at 11:15am. Extracted from:Title: Stroke Author: Bal Pierce DO Date: 11/23/14 STROKE TEAM HISTORY AND PHYSICAL Attending of Record: Dr. Begum Date of Admission: 11/24/14 Requesting Physician/Service: Transfer from OSH ([facility]) CC: expressive aphasia HISTORY OF PRESENT ILLNESS: Patient is a 74 year old right handed fe male with pmhx of hypertension, coronary artery disease, GERD, hyperthyroidism and mitral valve prolapse p/w expressive aphasia from OSH s/p tPA. Patient presente lorena to [facility] with acute onset of word finding difficulty around 7pm. Pt arrived at [facility] 1945 CTH was [...] she quit 30 years ago, had a 52-ktue-etnd history. MEDICATIONS: KCL Omeprazole Valsartan Fenofibrate Pravachol [...] OSH s/p tPA. Patient presente d to [facility] with acute onset [...] HbA1c. Treat fevers and blood sugars aggressively. 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 NPO prior to bedside swallow assessment; and escalation of care as determined by nurse DVT prophylaxis with SCDs. 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 Toe CarrilloJasonmorales Reeder MD [address] [place] [employer] [facility] Neu[facility] Pager: [phone] Addendum by Teo Reeder MD on 11/25/2014 19:06 The patient does not have AFIB Teo (Jason) MD [address] [employer] Pager: [phone] Plan of Care No Data Provided for This Section Social History Social History Date Source Social History ElementQualifiersDate Reported 09/27/2016 [facility] Consult Smoking . Status: former smoker [...] Sep 27, 2016 Social History TypeResponse 11/24/2014 [facility] Smoking Status Never smoker, Ready to change: No, Anna rns about tobacco use in household: No, Exposure to Tobacco Smoke None, Cigarette Smoking Last 365 Days No, Reg Smoking Cessation Counseling No Family History No Data Provided for This Section Advance Directives No Data Provided for This Section Functional Status No Data Provided for This Section
--- OUTSIDE RECORDS SUMMARY | 2020-06-29 11:20 | XMS REPORT | Continuity of Care Document ---
:1940 Author Organization [facility] t Address [address] [place] [address] Care Team Providers Name Role Phone HANDY Attending Clinician Unavailable Michelle Begum Attending Clinician Michelle Begum Admitting Clinician Problems Condition Condition Condition Status Onset Resolution Last Treating Co mments Source Name Details Category Date Date Treatment Clinician Date ISCHEMIC Diagnosis Active 2015-02-19 M emoria STROKE 2- 08:33:00 l ISCHEMIC 00:00: Epifanio jimenez STROKE 00 Active 11/23/2014 [facility] LFLT Diagnosis Active 2015-02-19 Mem oria TRANSFER#5 2- 08:34:00 l 34 LFLT 00:00: Elia TRANSFER#5 00 34 Active 5 [facility] History of History of Problem Resolve Univers [...] Unive rs infarction infarction [place] of [place] [facility] Essential Essential Problem Active Uni vers hypertensi hypertensi it y of on on [place] [facility] Sleep Sleep Problem Active Univers apnea apnea [facility] [facility] [place] [facility] Gastroesop Problem Resolve 2014-11-28 Memoria hageal d 15:24:41 l reflux Elia disease Gastroesop (disorder) hageal reflux disease (disorder) Resolved Problem 11/28/2014 [facility] Hyperchole Problem Resolve 2014-11-28 Memoria sterolemia d 15:24:41 l (disorder) Epifanio n Hyperchole sterolemia (disorder) Resolved Problem 11/28/2014 [facility] Hyperlipid Problem Resolve 2014-11-28 Memoria emia d 15:24:41 l (disorder) Epifanio n Hyperlipid emia (disorder) Resolved Problem 11/28/2014 [facility] Hypertensi Problem Resolve 2014-11-28 Memoria ve d 15:24:41 l disorder, Elia systemic Hypertensi arterial ve (disorder) disorder, systemic arterial (disorder) Resolved Problem 11/28/2014 [facility] Hypothyroi Problem Resolve 2014-11-28 Memoria dism d 15:24:41 l (disorder) Epifanio n Hypothyroi dism (disorder) Resolved Problem 11/28/2014 [facility] Atrial Problem Active 2017-06-17 Memor ia fibrillati 02:45:15 l on Atrial Elia fibrillati on Active Problem 7 [facility] Personal Problem Active 2017-06-17 Mem oria history of 02:45:15 l transient Personal Her irvin ischemic history of attack transient [TIA], and ischemic cerebral attack infarction [TIA], and without cerebral residual infarction deficits without residual deficits Active Problem 06/17/2017 [facility] Palpitatio Problem Active 2017-06-17 M emoria ns 02:45:15 l Elia Palpitatio ns Active Problem 7 [facility] Transient Problem Active 2017-06-17 Me moria cerebral 02:45:15 l ischemic Sigel attack, Transient unspecifie cerebral d ischemic attack, unspecifie d Active Problem 06/17/2017 [facility] Bradycardi Problem Active 2017-06-17 M emoria a, 02:45:15 l unspecifie Epifanio n d Bradycardi a, unspecifie d Active Problem 06/17/2017 [facility] Personal Problem Active 2017-06-17 Mem oria history of 02:45:15 l transient Personal Her irvin ischemic history of attack transient (TIA), and ischemic cerebral attack infarction (TIA), and without cerebral residual infarction deficits without residual deficits Active Problem 06/17/2017 [facility] History of Problem Active 2017-06-17 M emoria falling 02:45:15 l History Elia of falling Active Problem 06/17/2017 [facility] Abnormal Problem Active 2017-06-17 Mem oria electrocar 02:45:15 l diogram Abnormal Sunni nn [ECG] electrocar [EKG] diogram [ECG] [EKG] Active Problem 06/17/2017 [facility] Morbid Problem Active 2017-06-17 Memor ia (severe) 02:45:15 l obesity Morbid Elia due to (severe) excess obesity calories due to excess calories Active Problem 06/17/2017 [facility] Arthropath Problem Active 2017-06-17 M emoria y, 02:45:15 l unspecifie Epifanio n d Arthropath y, unspecifie d Active Problem 06/17/2017 [facility] Major Problem Active 2017-06-17 Memor ia depressive 02:45:15 l disorder, Major Epifanio n single depressive episode, disorder, unspecifie single d episode, unspecifie d Active Problem 06/17/2017 [facility] Chest Problem Active 2017-06-17 Memor ia pain, 02:45:15 l unspecifie Chest Sunni nn d pain, unspecifie d Active Problem 06/17/2017 [facility] Shortness Problem Active 2017-06-17 Me moria of breath 02:45:15 l Elia Shortness of breath Active Problem 06/17/2017 [facility] Constipati Problem Active 2017-06-17 M emoria on, 02:45:15 l unspecifie Epifanio n d Constipati on, unspecifie d Active Problem 06/17/2017 [facility] Hypothyroi Problem Active 2017-06-17 M emoria dism, 02:45:15 l unspecifie Epifanio n d Hypothyroi dism, unspecifie d Active Problem 06/17/2017 [facility] Hyperlipid Problem Active 2017-06-17 M emoria emia, 02:45:15 l unspecifie Epifanio n d Hyperlipid emia, unspecifie d Active Problem 06/17/2017 [facility] Chronic Problem Active 2017-06-17 Alek bethany kidney 02:45:15 l disease, Chronic Sunni nn unspecifie kidney d disease, unspecifie d Active Problem 06/17/2017 [facility] Insomnia, Problem Active 2017-06-17 Me moria unspecifie 02:45:15 l d Elia Insomnia, unspecifie d Active Problem 06/17/2017 [facility] Nonrheumat Problem Active 2017-06-17 M emoria ic mitral 02:45:15 l (valve) Elia insufficie Nonrheumat ncy ic mitral (valve) insufficie ncy Active Problem 06/17/2017 [facility] Paroxysmal Problem Active 2017-06-17 M emoria atrial 02:45:15 l fibrillati Epifanio n on Paroxysmal atrial fibrillati on Active Problem 7 [facility] 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:45:15 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 Active Problem 06/17/2017 [facility] Essential Problem Active 2017-06-17 Me moria (primary) 02:45:15 l hypertensi Epifanio n on Essential (primary) hypertensi on Active Problem 7 [facility] Chronic Problem Active 2017-06-17 Alek bethany kidney 02:45:15 l disease, Chronic Sunni nn Stage III kidney (moderate) disease, Stage III (moderate) Active Problem 06/17/2017 [facility] Congestive Problem Active 2017-06-17 M emoria heart 02:45:15 l failure, Elia unspecifie Congestive d heart failure, unspecifie d Active Problem 06/17/2017 [facility] Hypertensi Diagnosis Active 2017-06-17 Memoria ve heart 02:45:15 l and Elia chronic Hypertensi kidney ve heart disease and with heart chronic failure kidney and stage disease 1 through with heart stage 4 failure chronic and stage kidney 1 through disease, stage 4 or chronic unspecifie kidney d chronic disease, kidney or disease unspecifie d chronic kidney disease Active Diagnosis 06/17/2017 [facility] Hypertensi Problem Active 2017-06-17 M emoria on 02:45:15 l essential Elia benign Hypertensi on essential benign Active Problem 06/17/2017 [facility] 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:45:15 l stenosis Sigel of carotid Occlusion artery and without stenosis mention of of carotid cerebral artery infarction without mention of cerebral infarction Active Problem 06/17/2017 [facility] Insomnia, Problem Active 2017-06-17 Me moria unspecifie 02:45:15 l d Elia Insomnia, unspecifie d Active Problem 06/17/2017 [facility] Mitral Problem Active 2017-06-17 Memor ia valve 02:45:15 l disorders Mitral Sunni nn valve disorders Active Problem 06/17/2017 [facility] Other and Problem Active 2017-06-17 Me moria unspecifie 02:45:15 l d Other Elia hyperlipid and emia unspecifie d hyperlipid emia Active Problem 06/17/2017 [facility] Unspecifie Problem Active 2017-06-17 M emoria d 02:45:15 l hypothyroi Epifanio n dism Unspecifie d hypothyroi dism Active Problem 06/17/2017 [facility] Obesity, Problem Active 2017-06-17 Mem oria unspecifie 02:45:15 l d Obesity, Epifanio n unspecifie d Active Problem 06/17/2017 [facility] Other Problem Active 2017-06-17 Memor ia malaise 02:45:15 l and Other Sigel fatigue malaise and fatigue Active Problem 06/17/2017 [facility] Shortness Problem Active 2017-06-17 Me moria of breath 02:45:15 l Elia Shortness of breath Active Problem 06/17/2017 [facility] Chest Problem Active 2017-06-17 Memor ia pain, 02:45:15 l unspecifie Chest Sunni nn d pain, unspecifie d Active Problem 06/17/2017 [facility] Chronic Problem Active 2017-06-17 Alek bethany diastolic 02:45:15 l (congestiv Chronic Her irvin e) heart diastolic failure (congestiv e) heart failure Active Problem 06/17/2017 [facility] Unspecifie Problem Active 2017-06-17 M emoria d 02:45:15 l constipati Epifanio n on Unspecifie d constipati on Active Problem 7 [facility] Impaired Problem Active 2017-06-17 Mem oria fasting 02:45:15 l blood Impaired Epifanio n sugar fasting blood sugar Active Problem 06/17/2017 [facility] Overactive Problem Active 2017-06-17 M emoria bladder 02:45:15 l Elia Overactive bladder Active Problem 06/17/2017 [facility] Anxiety Problem Active 2017-06-17 Alek bethany disorder, 02:45:15 l unspecifie Anxiety Her irvin d disorder, unspecifie d Active Problem 06/17/2017 [facility] Incontinen Problem Active 2017-06-17 M emoria ce without 02:45:15 l sensory Elia awareness Incontinen ce without sensory awareness Active Problem 06/17/2017 [facility] Encounter Problem Active 2017-06-17 Me moria for 02:45:15 l screening Sigel for Encounter diabetes for mellitus screening for diabetes mellitus Active Problem 06/17/2017 [facility] Retention Problem Active 2017-06-17 Me moria of urine, 02:45:15 l unspecifie Epifanio n d Retention of urine, unspecifie d Active Problem 06/17/2017 [facility] Hypertensi Problem Active 2017-06-17 M emoria ve heart 02:45:15 l and Sigel chronic Hypertensi kidney ve heart disease, and benign, chronic with heart kidney failure disease, and with benign, chronic with heart kidney failure disease and with stage I chronic through kidney stage IV, disease or stage I unspecifie through d stage IV, or unspecifie d Active Problem 06/17/2017 [facility] Depressive Problem Active 2017-06-17 M emoria disorder, 02:45:15 l not Elia elsewhere Depressive classified disorder, not elsewhere classified Active Problem 06/17/2017 [facility] Urinary Problem Active 2017-06-17 Alek bethany tract 02:45:15 l infection, Urinary Her irvin site not tract specified infection, site not specified Active Problem 06/17/2017 [facility] Unspecifie Problem Active 2017-06-17 M emoria d 02:45:15 l arthropath Epifanio n y, site Unspecifie unspecifie d d arthropath y, site unspecifie d Active Problem 06/17/2017 [facility] Frequency Problem Active 2017-06-17 Me moria of 02:45:15 l micturitio Epifanio n n Frequency of micturitio n Active Problem 06/17/2017 [facility] Morbid Problem Active 2017-06-17 Memor ia obesity 02:45:15 l Morbid Elia obesity Active Problem 06/17/2017 [facility] Female Problem Active 2017-06-17 Memor ia genuine 02:45:15 l stress Female Elia incontinen genuine ce stress incontinen ce Active Problem 7 [facility] Nonspecifi Problem Active 2017-06-17 M emoria c abnormal 02:45:15 l electrocar Epifanio n diogram Nonspecifi (ECG) c abnormal (EKG) electrocar diogram (ECG) (EKG) Active Problem 06/17/2017 [facility] Palpitatio Problem Active 2017-06-17 M emoria ns 02:45:15 l Sigel Palpitatio ns Active Problem 7 [facility] Other Problem Active 2017-06-17 Memor ia specified 02:45:15 l cardiac Other Sigel dysrhythmi specified as cardiac dysrhythmi as Active Problem 7 [facility] Upper Problem Active 2017-06-17 Memor ia respirator 02:45:15 l y tract Upper Sigel hypersensi respirator tivity y tract reaction, hypersensi site tivity unspecifie reaction, d site unspecifie d Active Problem 06/17/2017 [facility] Unspecifie Problem Active 2017-06-17 M emoria d 02:45:15 l transient Elia cerebral Unspecifie ischemia d transient cerebral ischemia Active Problem 06/17/2017 [facility] Personal Problem Active 2017-06-17 Mem oria history of 02:45:15 l fall Personal Epifanio n history of fall Active Problem 06/17/2017 [facility] Acute Problem Active 2017-06-17 Memor ia upper 02:45:15 l respirator Acute Sunni nn y upper infections respirator of y unspecifie infections d site of unspecifie d site Active Problem 06/17/2017 [facility] CVA Diagnosis Active 2015-02-19 Mem oria 08:33:00 l CVA Elia Active [facility] Allergies, Adverse Reactions, Alerts This patient has no known allergies or adverse reactions. Family History Family Member Diagnosis Comments Start Date Stop Date Source Mother Family history of [facility] pancreatic cancer Physici ans Father Family history of [facility] [place] cardiac disorder Physicia ns Social History Social Habit Start Date Stop Date Quantity Comments Source Smoking 2016-09-27 00:00:00 2016-09-27 Elliot Rodrigez 00:00:00 Smoking Status Start Date Stop Date Source Former smoker [facility] frida Physicians Social History [facility] Medications Ordered Filled Start Stop Current Ordering [...] 0-17 DIRECTED. ity of MCG/ACT MCG/ACT 00:00: [place] Inhalation Inhalation 00 Phy sici Aerosol Aerosol ans Levothyroxi Levothyroxi 2017-10 Yes 1 QD TAKE 1 Univers ne Sodium ne Sodium 0-17 TABLET ity of 100 MCG 100 MCG 00:00: DAILY. [place] Oral Tablet Oral Tablet 00 P hysici [...] 1 tablet M emoria 8-17 l 00:00: Sigel 00 Edarbyclor Edarbyclor Yes MUNACHI 1 QD TAKE 1 Univers 40-25 MG 40-25 MG 4-20 OKPALA TABLET BY ity of Oral Tablet Oral Tablet 00:00: N.P. MOUTH ONCE [place] 00 DAILY Physici ans Edarbyclor Yes Melissa Ali 1 tablet Memoria 3-28 l 00:00: Sigel Edarbyclor Yes Melissa Ali 1 tablet Memoria 3-13 l 00:00: Sigel Tikosyn No Melissa Ali TAKE ONE M emoria 3-01 CAPSULE BY l 03:45: MOUTH Elia 56 TWICE A DAY Dofetilide Yes Melissa Ali 1 capsule Memoria 2-28 l 00:00: Sigel Doxazosin 2015-10 No Melissa Ali TAKE ONE Memoria Mesylate 1-19 TABLET BY l 03:48: MOUTH Sigel 47 DAILY Cipro Yes Bennett Ali 1 [...] Memoria 2-04 Nurse to l 18:03: ensure Sigel 00 documentat ion of patient education per [facility] policy. Avoid large intake of vitamin-K containing [...] tab, PO, l tablet 17:52: Daily, # Elia 00 30 tab, 0 Refill(s) warfarin 5 Yes 5 mg, PO, Me moria mg oral 2-04 Daily, # 2 l tablet 17:52: tab, 0 Elia 00 Refill(s) Atenolol 25 Yes 12.5 mg = M emoria MG Oral 2-04 0.5 tab, l Tablet 17:52: PO, Daily, Sunni nn 00 0 Refill(s) valsartan No Notes: Memori a 2-04 Same as l 15:00: Diovan Sigel 00 Protonix No Notes: Memoria 2-03 Tablet l 22:30: should not Sigel 00 be chewed or crushed. (Same as: Protonix) Atenolol No Notes: Memoria 2-03 (Same l 15:00: As:Tenormi Elia 00 n) valsartan No 320 mg, Memor ia 2-03 Route: PO, l 15:00: Drug form: Sigel 00 TAB, Daily, Dosing Weight 114.318, kg, Start date: 11/25/14 9:00:00, Duration: 30 day, Stop date: 12/24/14 9:00:00 Thyroxine No Notes: Memori a 2-03 Take 1 l 12:30: hour Sigel 00 before or 2 hours after meal; [...] tab, PO, l Tablet 20:47: Daily, # Sigel 00 30 tab, 0 Refill(s) liothyronin Yes 10 Memori a e 5 mcg 2-02 microgram l oral tablet 20:47: = 2 tab, He rmann 00 PO, QAM, # 30 tab, 0 Refill(s) Fenofibrate No 160 mg = 1 Memoria 160 MG Oral 2-02 tab, PO, l Tablet 20:47: Daily, # Elia 00 30 tab, 0 Refill(s) Zolpidem Yes [...] tab, PO, l tablet 20:47: Daily, # Sigel 00 30 tab, 0 Refill(s) valsartan No [...] Memoria 2-02 Refill(s) l 13:59: Elia 00 Fenofibrate No 160 mg = 1 Memoria 160 MG Oral 2-02 tab, PO, l Tablet 13:59: Daily, # Sigel 00 30 tab, 0 Refill(s) Atenolol 0 No 0 Memoria 2-02 Refill(s) l 13:59: Sigel 00 valsartan No 320 mg = 1 Me moria 320 mg oral 2-02 tab, PO, l tablet 13:59: Daily, # Elia 00 30 tab, 0 Refill(s) Potassium 0 No 0 Memoria Chloride 20 2-02 Refill(s) l MEQ 13:59: Sigel Extended 00 Release Tablet Metolazone No 5 [...] No 0 Memoria 2-02 Refill(s) l 13:59: Sigel 00 spironolact No 0 Memori a one 25 mg 2-02 Refill(s) l oral tablet 13:59: Epifanio n 00 Zofran No Notes: Memoria 2-02 (Same as: l 13:08: Zofran) Elia Tylenol No Notes: Do Memor ia 2-02 not exceed l 06:48: 4 gm/day. Sigel 00 (Same as: Tylenol) Sodium No 1,000 mL, Memori a Chloride 11-24 Rate: 75 l 0.154 05:06: ml/hr, Elia MEQ/ML 00 Infuse Injectable over: 13.3 Solution hr, Route: IV, Total Volume: 1,000, Start date: 11/23/14 23:06:00, Duration: 30 day, Stop date: 12/23/14 23:05:00 Saline No Notes: Memoria Flush 0.9% 2-02 (Same as: l 04:58: BD Sigel 00 Posiflush) Acetaminoph No Notes: Do M emoria en 2-02 not exceed l 04:58: 4 gm/day. Elia 00 (Same as: Tylenol) Dofetilide Dofetilide Yes [...] Source BP Systolic 2019-07-23 152 mm[Hg] Location: [facility] 11:51:00 Position: [place] Physician s Sitting BP Diastolic 2019-07-23 76 mm[Hg] Location: [facility] 11:51:00 Position: [place] Physician s Sitting Height 2019-07-23 62 [in_us] [facility] 11:51:00 [place] Physician s Weight 2019-07-23 248.5 [lb_av] [facility] 11:51:00 [place] Physician s Body Mass Index 2019-07-23 45.45 kg/m2 University o f Calculated 11:51:00 [place] [facility]ician s Heart Rate 2019-07-23 66 /min Location: [facility] 11:51:00 Brachial [place] [facility]ician s Artery; Respitory Rate 2014-11-26 [facility] 17:54:00 Systolic (mm Hg) 2014-11-26 [facility] rmann 17:54:00 Diastolic (mm Hg) 2014-11-26 [facility] ermann 17:54:00 Heart Rate 2014-11-26 [facility] Epifanio [...] He rmann 12:00:00 Diastolic (mm Hg) 2014-11-26 [facility] ermann 12:00:00 Heart Rate 2014-11-24 [facility] Epifanio n 15:45:00 Weight 2014-11-24 [facility] Epifanio n 06:47:00 BMI Calculated 2014-11-24 [facility] a[facility] 06:47:00 Height 2014-11-24 162.56 cm Heidy jiemnez 06:47:00 Procedures Procedure Date / Time Performing Clinician Source Performed History of Hysterectomy [facility] Physicians History of Appendectomy [facility] Physicians History of Bladder Surgery Unive [facility] Physicians History of Neuroplasty [facility] Decompression Median [facility] [place] History of Esophagogastric Unive [facility] Fundoplasty [facility] Fundoplication History of Knee Surgery [facility] Right Physicians Knee replacement Heidy jimenez Plan of Care Planned Activity Planned Date Details Comments Source Future Appointment 2020-07-17 DAMIÁN BAILEY [facility] 11:30:00 Yulia MURRELL Encounters Start End Encounter Admission Attending Care Care Encounter Source Date/Time Date/Time Type Type Clinicians Facility Department ID 2019-07-23 2019-07-23 AppointBLUE [facility] Neurology - [id number] Univers 11:30:00 11:30:00 t; LEO MURRELL NP [place] ity [facility] PAIN MANAGEMENT NURSE PRACTITIONER Center Physici ans 2018-08-08 2018-08-08 Appointmen BLUE MURRELL UTP [id number] Univers 11:30:00 11:30:00 t; LEO MURRELL NP ity [place], [place] PAIN MANAGEMENT NURSE PRACTITIONER Physici ans 2017-08-08 2017-08-08 Appointmen BLUE MURRELL UTP [id number] Univers 11:30:00 11:30:00 t; LEO MURRELL NP ity of [place], [place] PAIN MANAGEMENT NURSE PRACTITIONER Physici ans 2017-06-16 2017-06-16 Outpatient Cardiolog Cardiology [...] Consultants al Works Consultan 2016-12-20 2016-12-20 Outpatient [facility] [id number] eClinic 09:57:00 09:57:00 Cardiolog Cardiology a lWorks y Consultants Consultan 2016-09-09 2016-09-09 Outpatient [facility] [id number] eClinic 15:06:00 15:06:00 Cardiolog Cardiology a lWorks y Consultants Consultan 2016-04-15 2016-04-15 Outpatient [facility] [id number] eClinic 14:19:00 14:19:00 Cardiolog Cardiology a lWorks y Consultants Consultan 2016-04-15 2016-04-15 Outpatient [facility] [id number] eClinic 14:11:00 14:11:00 Cardiolog Cardiology a lWorks y Consultants Consultan 2016-03-11 2016-03-11 Outpatient [facility] [id number] eClinic 13:22:00 13:22:00 Cardiolog Cardiology a lWorks y Consultants Consultan 2016-01-29 2016-01-29 Outpatient [facility] [id number] eClinic 14:05:00 14:05:00 Cardiolog Cardiology a lWorks y Consultants Consultan 2014-11-23 2014-11-26 Outpatient DELPHINE Begum [facility] [id number] 22:23:00 16:46:00 Serina 66 Michelle Results Test [...] code = MCH) 32.4 pg 27.0-31.0 [facility] LtjcdgvMOOLNCLXKU3471-40-33 10:23:0093.5[facility] 2014-11-26 10:23:0034.6[facility] NlmlbzzXTZFLZBALU7616-87-16 10:23:0033.6[facility] FdyiofgGSUGVIWJBP5067-55-06 10:23:0011.6[facility] RknifsqTXAUJHOQIN5127-57-05 10:23:003.60[facility] QjgvgpxMMDHQMFXOF6317-18-76 10:23:004.6[facility] Elia CIOZDWZMAL6547-73-23 10:23:008.3[facility] RntdcwjVTUNIOZFJU5600-66-08 10:23:20896 [facility] DpzdtmmDDBBCPBOZR6410-38-16 10:23:0062.3[facility]ann[facility]MATOLOGY 2014-11-26 10:23:001.2[facility] WvmimuhLTRELCQFBK5048-61-25 10:23:000.4[facility] VsjhrelOZPCLSJDCB4231-72-79 10:23:003.0[facility] McxyuvhWOJLYVMCIS5546-02-76 10:23:0026.2[facility] AcfebseROCXZWUWTY6749-87-26 10:23:002.9[facility] Elia JSEOBGQTQB6758-95-66 10:23:000.5[facility] TlqgtvwPZLEYVDQGN7451-92-65 10:23:008.0 [facility] FmerlnhSBEORPFUUC0233-75-05 10:23:000.1[facility] HermannCHEM PANEL 2014-11-25 07:04:003.1[facility] HermannCHEM IGMAY0558-09-79 07:04:0034[facility] HermannCHEM SGPCD3831-41-73 07:04:0025[facility] HermannCHEM NVXXI7935-86-78 07:04:0012.8[facility] HermannCHEM ECAUW3428-15-21 07:04:008.7[facility] HermannCHEM FOFTC5911-09-46 07:04:45117Pvsdcldu HermannCHEM JKFZR1232-01-30 07:04:0023 [facility]annCHEM JTGQS3281-20-66 07:04:85879Ejryfzcx HermannCHEM PANEL 2014-11-25 07:04:0082[facility] HermannCHEM KDBJW7198-04-91 07:04:001.5[facility] HermannCHEM KHXZZ5763-24-75 07:04:003.8[facility] HermannCHEM VFDSW1288-44-38 07:04:002.7[facility] MxgmngxJCVKUUTLRV0369-64-79 07:04:0063.1[facility] Elia ZRQEQYHACF2063-55-25 07:04:0027.1[facility] UqzqprkCPDWXVIWZX6205-38-94 07:04:00 7.2[facility] QauxpgvSYOCLHFVPM4866-69-70 07:04:000.1[facility] HermannHEMATOLOGY 2014-11-25 07:04:002.2[facility] YqluiwlOYOEQWZLLY0015-93-46 07:04:000.4[facility] NtencicUWBBEBYKTN3855-40-98 07:04:003.1[facility] MkvsvivLYNZYNOIVE2798-70-57 07:04:000.3[facility] PzvitdlVPXNPNATWX2544-76-23 07:04:001.3[facility] Elia HBHUTQFAUI2396-63-12 07:04:008.5[facility] CizrpaeWKXROLHFCL4323-78-14 07:04:00 Test Item Value Reference Range Interpretation Comments MCH (test code = MCH) 31.6 pg 27.0-31.0 [facility] GxwatlsDHDBBZLSTV4579-32-19 07:04:0093.4[facility] HermannHEMATOLOGY 2014-11-25 07:04:0033.2[facility] MsbesbvFNOLKLESRD5535-11-97 07:04:26511Xkfjriil ZarnxwcSWFXQZXVYI0509-68-73 07:04:0013.1[facility] QwnvwbcRKMMODLMMQ9733-66-93 07:04:0033.8[facility] AbsfuisTFQEGYGSYX1841-72-03 07:04:0011.2[facility] Sigel IHPFRCNEVX1292-11-85 07:04:003.56[facility] GsrgccdTOQMFTJHDF8584-29-51 07:04:00 4.9[facility] ItlxbdrTGKNHKNYRP3679-34-39 07:04:001.14[facility]annHEMATOLOGY 2014-11-25 07:04:00 Test Item Value Reference Range Interpretation Comments PTT (test code = PTT) 28.5 s 22.9-35.8 [facility] VdkvaesDOMTSRVPAV7458-81-06 07:04:00 Test Item Value Reference Range Interpretation Comments PT (test code = PT) 14.7 s 12.0-14.7 [facility] HermannTHYROID KCNUG3097-15-93 07:04:003.190[facility] HermannURINE AND UUNFC6066-30-40 08:06:007[facility]annURINE AND CXKAS2347-88-57 08:06:002 [facility]ann[facility] AND YIWXE7748-94-38 08:06:00Negative (11/24/14 2:06 AM) [facility]ann[facility] AND WMICP5282-20-96 08:06:00Negative (11/24/14 2:06 AM) [facility] ZUSUX3382-16-06 08:06:00Negative (11/24/14 2:06 AM) [facility] [facility] [id number] 08:06:006.5[facility] HTRGE3884-15-03 08:06:00Negative *NA*(11/24/14 2:06 AM)[facility] [id number] 08:06:001.009[facility] [id number] 08:06:00 Clear (11/24/14 2:06 AM)[facility] [id number] 08:06:00Yellow *NA*(11/24/14 2:06 AM)[facility]annCHEM [id number] 07:51:001.2[facility]annCHEM HKSND4622-66-61 07:51:003.2[facility]annCHEM QHPYV5912-82-81 07:51:0022[facility]annCHEM PQZEY8067-84-02 07:51:009.8[facility]annCHEM HEFQX5392-17-98 07:51:0029[facility]annCHEM FRRBD3260-17-91 07:51:01748 [facility]CHE[facility] PIVRA6359-70-96 07:51:008.7[facility]annCHEM PANEL 2014-11-24 07:51:0029[facility]annCHEM [id number] 07:51:0017[facility]annCHEM WRVCE6532-75-88 07:51:003.7[facility]annCHEM NHMRV7664-74-96 07:51:006.9[facility]annCHEM YSVON7448-29-92 07:51:0028[facility]annCHEM AQLAN6393-13-61 07:51:11083Zitnaemq HermannCHEM BFGBR7682-07-63 07:51:003.8 [facility]annCHEM ZTINY1922-05-28 07:51:70146Gszzgdha HermannCHEM PANEL 2014-11-24 07:51:001.7[facility]annCHEM RYCXB2452-09-71 07:51:0037[facility]annCHEM CNLKP8169-13-77 07:51:0037[facility]annCHEM FFRKY8924-23-86 07:51:000.4[facility] XtecaxyTGKYLTZEAZ6056-96-86 07:51:000.4[facility] DXLXBZXNQG6239-62-75 07:51:001.1[facility] AmdrqyaRPEFHGJMMG1247-60-34 07:51:000.1 [facility] SrprmonSEBDVTZBQA1968-15-61 07:51:0070.9[facility] HermannHEMATOLOGY 2014-11-24 07:51:006.7[facility] HdjfbaiQKTSDWTRTG1857-48-53 07:51:0019.7[facility] PnfrrdcFJGOEBBARQ9665-28-24 07:51:002.3[facility] FrjcgjtQIQRMEDDQI6539-30-02 07:51:004.0[facility] SwjticdSNLVIAPXYE8204-95-88 07:51:000.4[facility] EYZPWGRKMS2412-21-66 07:51:00 Test Item Value Reference Range Interpretation Comments PTT (test code = PTT) 28.2 s 22.9-35.8 [facility] LmadmtfQMMKGRDFPC5216-22-91 07:51:00 Test Item Value Reference Range Interpretation Comments PT (test code = PT) 13.9 s 12.0-14.7 [facility] YmbxrceMDUSWPMJSF5759-32-09 07:51:001.07[facility] HermannHEMATOLOGY 2014-11-24 07:51:008.8[facility] WbtlnprRPIWBJJGTO6006-61-23 07:51:005.7[facility] AwxrlfmOTOGVEECYT3121-30-42 07:51:0094.9[facility] ZiepltyYKXGCNYTCG1284-90-01 07:51:003.73[facility] YhwhtarIMHCUDZIUC6369-54-08 07:51:0013.3[facility] LACFWPMTUO6109-32-85 07:51:0012.1[facility] EcenpopXHDGFJBYFL2830-54-41 07:51:00 35.3[facility] DzoysbaHPSZNBXROC6113-59-36 07:51:32666Kmbhznag HermannHEMATOLOGY 2014-11-24 07:51:0034.2[facility] PzgyjkcDZQOITIIRP6357-11-07 07:51:00 Test Item Value Reference Range Interpretation Comments MCH (test code = MCH) 32.5 pg 27.0-31.0 [facility] GnqwayaBEVMIE0743-21-19 07:51:002.81[facility] UrnnagoNGYAXL6685-64-62 07:51:0026[facility] PqiaqelOHUXSO7142-98-73 07:51:0059[facility] HermannLIPIDS 2014-11-24 07:51:59293Pjpdmiwc MbtwmktLPYIJW4349-61-65 07:51:0047[facility] ZjlezybXMIDBT6644-56-43 07:51:84438Epotkzex HermannSPECIAL FBKWMXBYH3365-36-32 07:51:005.6[facility]
[2020-06-29] MEDS ORDERED: NA CHLORIDE 0.9% 1,000 ML ONE ×2 (11:46→13:23)
[2020-06-29 11:59] LABS: Absolute Lymphocytes (CBC) 0.9 K/uL (0.7-4.9); Basophils % 0.4 % (0-1.3); Hematocrit 37.8 % (36.0-45.0); Lymphocytes % 12.4 % (15.3-44.8); MPV 7.5 fL (7.6-11.3)
--- NOTE | 2020-06-29 12:08 | RAD REPORT ---
EXAM DESCRIPTION: CT - Abdomen Pelvis W Contrast - 06/29/2020 11:58 am CLINICAL HISTORY: flank pain ?pyelo;Abd pain, history of appendectomy, cholecystectomy, hysterectomy , bladder lift and rectocele/cyctocele. COMPARISON: Abdomen Pelvis W Contrast dated 05/30/2020 TECHNIQUE: Biphasic, helical CT imaging of the abdomen and pelvis was performed following 100 ml non -ionic IV contrast. No oral contrast. All CT scans are performed using dose optimization technique as appropriate and may include automated exposure control or mA/KV adjustment according to patient size. FINDINGS: No suspicious findings in the lung bases. The liver, spleen, and pancreas show no suspicious findings. Liver attenuation is borderline fatty in filtrated. Gallbladder is absent. No biliary tree dilatation. Renal function is symmetric. No hydronephrosis. No obstructing or nonobstructing calculi seen. Hetero geneous, diminished enhancement is seen throughout much of the left kidney and to a small extent in t he lower pole of the right kidney. The right renal finding is probably a complex cyst similar to comp arison. The left kidney findings are most likely pyelonephritis. No solid mass lesion. Perinephric st randing is minimal No bladder abnormalities. No adrenal abnormalities. No dilated bowel loops or bowel wall thickening. No free air, free fluid or inflammatory stranding. No hernia, mass or bulky lymphadenopathy. No acute bone findings. 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 IMPRESSION: Left Kidney pyelonephritis findings. No hydronephrosis or obstructing calculus.
[2020-06-29 12:15] LABS: Albumin 3.4 g/dL (3.4-5.0); Bilirubin Direct 0.3 mg/dL (0-0.2); Bilirubin Total 0.7 mg/dL (0.2-1.0); Potassium 3.3 mmol/L (3.5-5.1); Protein, Total 7.9 g/dL (6.4-8.2)
[2020-06-29 12:38] LABS: Urine Blood 3+ (NEG); Urine Glucose NEGATIVE (NEG); Urine Protein 3+ (NEG); Urine Specific Gravity 1.015 (1.005-1.030)
[2020-06-29 13:08] LABS: Urine Bacteria <20 /HPF (<20); Urine Culture Reflex Order REFLEXED; Urine RBC TNTC /HPF (NONE SEEN)
[2020-06-29] MEDS ORDERED: CEFTRIAXONE/SWI 1gm 1 GM/10 ML SYR ONE (13:23)
--- NOTE | 2020-06-29 13:47 | ER ---
[facility]urse's Notes [facility] Name: Kristal You Age: 80 yrs Sex: Female : 1940 Arrival Date: 06/29/2020 Time: 11:18 Bed 4 Private MD: Diagnosis: Cystitis, unspecified with hematuria-with Pyelonephritis Presentation: 06/29 11:19 Chief complaint: EMS states: hx of kidney stones, reported that she has a kidney stone iw on left side that they can't remove, has had left low back pain for 2 weeks., now it's worse, also has dark colored urine. Coronavirus screen: At this time, the client does not indicate any symptoms associated with coronavirus-19. Ebola Screen: Patient negative for fever greater than or equal to 101.5 degrees Fahrenheit, and additional compatible Ebola Virus Disease symptoms Patient denies exposure to infectious person. Patient denies travel to an Ebola-affected area in the 21 days before illness onset. No symptoms or risks identified at this time. Initial Sepsis Screen: Does the patient meet any 2 criteria? No. Patient's initial sepsis screen is negative. Does the patient have a suspected source of infection? No. Patient's initial sepsis screen is negative. Risk Assessment: Do you want to hurt yourself or someone else? Patient reports no desire to harm self or others. Onset of symptoms was June 15, 2020. 11:19 Method Of Arrival: EMS: [facility] 11:19 Acuity: LUCINA 3 iw Historical: - Allergies: 11:22 namutol; iw - Home Meds: 11:22 aspirin 81 mg Oral chew 1 tab once daily [Active]; atenolol 50 mg Oral tab once daily iw [Active]; baclofen 10 mg Oral tab 1 tab at bedtime [Active]; clonidine HCl 0.1 mg Oral tab as needed [Active]; dofetilide 500mcg Oral 2 times per day [Active]; doxazosin 4 mg Oral tab 1 tab 1/2 tab in the am and 1 tab in the afternoon [Active]; Edarbyclor 40-25 mg Oral tab 1 tab once daily [Active]; Eliquis 5 mg Oral tab 1 tab 2 times per day [Active]; gabapentin 100 mg Oral cap 1 caps 3 times per day [Active]; hydralazine 50 mg Oral tab three times daily [Active]; levothyroxine 112 mcg tab once daily [Active]; liothyronine 5 mcg Oral tab once daily [Active]; pravastatin 40 mg Oral tab once daily [Active]; tramadol 50 mg Oral tab 1 tab twice a day [Active]; Vascepa 1 gram Oral cap 2 times per day [Active]; Vitamin D3 Oral 2 tab daily [Active]; - PMHx: 11:22 Asthma; Atrial Fib; CVA; Hypertension; Hypothyroidism; UTI; iw - PSHx: 11:22 right knee replacement; Appendectomy; Cholecystectomy; Hysterectomy; Bladder iw suspension; rectocele/cystcele repair; juan m fundiplication; left shoulder surgery; Carpal Tunnel Repair; - Immunization history:: Adult Immunizations up to date. - Social history:: Patient uses Patient/guardian denies using alcohol, street drugs, The patient lives with family, Smoking status: unknown. - Family history:: not pertinent. Screenin:30 Abuse screen: Denies threats or abuse. Denies injuries from another. Nutritional jr10 screening: No deficits noted. Tuberculosis screening: No symptoms or risk factors identified. Fall Risk IV access (20 points). Assessment: 11:30 General: Appears uncomfortable, Behavior is appropriate for age. Pain: Complains of jr10 pain in left flank. Neuro: Level of Consciousness is awake, alert, obeys commands, Oriented to person, place, time, situation, Appropriate for age Speech is normal. Cardiovascular: No deficits noted. Denies chest pain, Capillary refill < 3 seconds Patient's skin is warm and dry. Pulses are all present. Edema is absent. Rhythm is regular. Respiratory: No deficits noted. Airway is patent Respiratory effort is even, unlabored, Respiratory pattern is regular, symmetrical, Breath sounds are clear bilaterally. Denies cough, shortness of breath. GI: Abdomen is non-distended, obese, Reports decreased appetite Patient currently denies diarrhea, nausea, vomiting. : Reports incontinence, "for a while" urgency, hematuria that was noticed this morning; pt has known kidney stone. EENT: No deficits noted. No signs and/or symptoms were reported regarding the EENT system. Derm: No deficits noted. No signs and/or symptoms reported regarding the dermatologic system. Musculoskeletal: Reports weakness in generalized. 11:31 Reassessment: pt family contact information: Lissette (daughter): [phone]. jr10 13:30 Reassessment: Patient and/or family updated on plan of care and expected duration. Pain jr10 level reassessed. Patient is alert/active/playful, equal unlabored respirations, skin warm/dry/pink. 14:33 Reassessment: Patient and/or family updated on plan of care and expected duration. Pain jr10 level reassessed. Patient is alert, oriented x 3, equal unlabored respirations, skin warm/dry/pink. Vital Signs: 12:57 BP 153 / 100; Resp 18; Pulse Ox 100% on R/A; jr10 13:54 BP 144 / 59; Pulse 69; Resp 17; Pulse Ox 100% on R/A; jr10 14:32 BP 127 / 61; Pulse 69; Resp 18; Temp 98.5(O); Pulse Ox 100% on R/A; jr10 15:41 BP 143 / 52; Pulse 74; Resp 18; Pulse Ox 98% on R/A; jr10 ED Course: 11:18 Patient arrived in ED. iw 11:19 Gary Gonzalez MD is Attending Physician. ma2 11:20 Triage completed. iw 11:26 Winsome Mc, KARIE is Primary Nurse. jr10 11:30 Patient has correct armband on for positive identification. Bed in low position. Call jr10 light in reach. Side rails up X2. Pulse ox on. NIBP on. 11:35 Inserted saline lock: 20 gauge in left forearm, using aseptic technique. IV is patent, jr10 is intact, with fluids infusing freely, with good blood return, Flushed. 11:58 CT Abd/Pelvis - IV Contrast Only In Process Unspecified. EDMS 13:46 Judd Gurrola MD is Hospitalizing Provider. ma2 13:58 No provider procedures requiring assistance completed. jr10 15:33 Patient admitted, IV remains in place. intact, No redness/swelling at site. jr10 Administered Medications: 11:47 Drug: NS 0.9% 1000 ml Route: IV; Rate: 1000 ml; Site: left forearm; jr10 12:41 Follow up: Response: No adverse reaction; IV Status: Completed infusion jr10 13:30 Drug: NS 0.9% 1000 ml Route: IV; Rate: 1 bolus; Site: left forearm; jr10 14:33 Follow up: Response: No adverse reaction; IV Status: Completed infusion jr10 13:30 Drug: Rocephin 1 grams Route: IV; Rate: calculated rate; Site: left forearm; jr10 14:34 Follow up: Response: No adverse reaction; IV Status: Completed infusion jr10 Outcome: 13:46 Decision to Hospitalize by Provider. ma2 15:32 Admitted to Med/surg accompanied by tech, via wheelchair, room 216, with chart, Report jr10 called to KARIE Murphy 15:32 Condition: improved 15:32 Instructed on the need for admit, Demonstrated understanding of instructions. 15:41 Patient left the ED. jr10 Signatures: Dispatcher [employer] Sherice Mendez, Gary Braden RN, MD MD me2 Winsome Mc RN RN jr10
--- NOTE | 2020-06-29 13:47 | EDPHYS ---
Physician Documentation [facility] Name: Kristal You Age: 80 yrs Sex: Female : 1940 Arrival Date: 06/29/2020 Time: 11:18 Bed 4 Private MD: ED Physician Gary Gonzalez HPI: 06/29 11:46 This 80 yrs old Female presents to ER via EMS with complaints of Back Pain, ma2 Possible Kidney Stone. 11:46 This 80 yrs old Female presents to ER via EMS with complaints of Back Pain, ma2 dark orange urine . 11:46 The patient presents with pain that is chronic, with no known mechanism of injury, left ma2 flank pain . Onset: The symptoms/episode began/occurred gradually, 2 day(s) ago. Associated signs and symptoms: Pertinent negatives: chest pain, fever, incontinence, numbness, weakness. Severity of symptoms: At their worst the symptoms were very mild, in the emergency department the symptoms are unchanged. The patient has not experienced similar symptoms in the past. Historical: - Allergies: 11:22 namutol; iw - Home Meds: 11:22 aspirin 81 mg Oral chew 1 tab once daily [Active]; atenolol 50 mg Oral tab once daily iw [Active]; baclofen 10 mg Oral tab 1 tab at bedtime [Active]; clonidine HCl 0.1 mg Oral tab as needed [Active]; dofetilide 500mcg Oral 2 times per day [Active]; doxazosin 4 mg Oral tab 1 tab 1/2 tab in the am and 1 tab in the afternoon [Active]; Edarbyclor 40-25 mg Oral tab 1 tab once daily [Active]; Eliquis 5 mg Oral tab 1 tab 2 times per day [Active]; gabapentin 100 mg Oral cap 1 caps 3 times per day [Active]; hydralazine 50 mg Oral tab three times daily [Active]; levothyroxine 112 mcg tab once daily [Active]; liothyronine 5 mcg Oral tab once daily [Active]; pravastatin 40 mg Oral tab once daily [Active]; tramadol 50 mg Oral tab 1 tab twice a day [Active]; Vascepa 1 gram Oral cap 2 times per day [Active]; Vitamin D3 Oral 2 tab daily [Active]; - PMHx: 11:22 Asthma; Atrial Fib; CVA; Hypertension; Hypothyroidism; UTI; iw - PSHx: 11:22 right knee replacement; Appendectomy; Cholecystectomy; Hysterectomy; Bladder iw suspension; rectocele/cystcele repair; juan m fundiplication; left shoulder surgery; Carpal Tunnel Repair; - Immunization history:: Adult Immunizations up to date. - Social history:: Patient uses Patient/guardian denies using alcohol, street drugs, The patient lives with family, Smoking status: unknown. - Family history:: not pertinent. ROS: 11:46 Constitutional: Negative for fever, chills, and weight loss. ma2 11:46 All other systems are negative. Exam: 11:46 Constitutional: This is a well developed, well nourished patient who is awake, alert, ma2 and in no acute distress. Head/Face: Normocephalic, atraumatic. Eyes: Pupils equal round and reactive to light, extra-ocular motions intact. Lids and lashes normal. Conjunctiva and sclera are non-icteric and not injected. Cornea within normal limits. Periorbital areas with no swelling, redness, or edema. ENT: Nares patent. No nasal discharge, no septal abnormalities noted. Tympanic membranes are normal and external auditory canals are clear. Oropharynx with no redness, swelling, or masses, exudates, or evidence of obstruction, uvula midline. Mucous membranes moist. Neck: Trachea midline, no thyromegaly or masses palpated, and no cervical lymphadenopathy. Supple, full range of motion without nuchal rigidity, or vertebral point tenderness. No Meningismus. Chest/axilla: Normal chest wall appearance and motion. Nontender with no deformity. No lesions are appreciated. Cardiovascular: Regular rate and rhythm with a normal S1 and S2. No gallops, murmurs, or rubs. Normal PMI, no JVD. No pulse deficits. Respiratory: Lungs have equal breath sounds bilaterally, clear to auscultation and percussion. No rales, rhonchi or wheezes noted. No increased work of breathing, no retractions or nasal flaring. Abdomen/GI: Soft, non-tender, with normal bowel sounds. No distension or tympany. No guarding or rebound. No evidence of tenderness throughout. Back: No spinal tenderness. No costovertebral tenderness. Full range of motion. Skin: Warm, dry with normal turgor. Normal color with no rashes, no lesions, and no evidence of cellulitis. MS/ Extremity: Pulses equal, no cyanosis. Neurovascular intact. Full, normal range of motion. Neuro: Awake and alert, GCS 15, oriented to person, place, time, and situation. Cranial nerves II-XII grossly intact. Motor strength 5/5 in all extremities. Sensory grossly intact. Cerebellar exam normal. Normal gait. Vital Signs: 12:57 BP 153 / 100; Resp 18; Pulse Ox 100% on R/A; jr10 13:54 BP 144 / 59; Pulse 69; Resp 17; Pulse Ox 100% on R/A; jr10 14:32 BP 127 / 61; Pulse 69; Resp 18; Temp 98.5(O); Pulse Ox 100% on R/A; jr10 15:41 BP 143 / 52; Pulse 74; Resp 18; Pulse Ox 98% on R/A; jr10 MDM: 11:20 Patient medically screened. ma2 11:46 Differential diagnosis: Osteoarthritis Pyelonephritis sprain. Data reviewed: [facility] signs, nurses notes. Counseling: I had a detailed discussion with the patient and/or guardian regarding: the historical points, exam findings, and any diagnostic results supporting the discharge/admit diagnosis, the presence of at least one elevated blood pressure reading (>120/80) during this emergency department visit, the need for outpatient follow up. Medical screen evaluation completed. [facility] emergency medical condition absent. Response to treatment: the patient's symptoms have markedly improved after treatment. 06/29 11:30 Order name: Basic Metabolic Panel; Complete Time: 12:31 ne2 06/29 11:30 Order name: CBC with Diff; Complete Time: 12:31 ma2 06/29 11:30 Order name: Hepatic Function; Complete Time: 12:31 ma2 06/29 11:30 Order name: Lipase; Complete Time: 12:31 ma2 06/29 11:30 Order name: Urine Microscopic Only; Complete Time: 13:17 ma2 06/29 12:14 Order name: CREATININE WHOLE BLOOD; Complete Time: 12:31 EDMS 06/29 11:30 Order name: CT Abd/Pelvis - IV Contrast Only; Complete Time: 12:31 ma2 06/29 12:36 Order name: Urine Dipstick--Ancillary (enter results); Complete Time: 13:17 eb 06/29 13:09 Order name: Urine Culture EDMS 06/29 13:52 Order name: Basic Metabolic Panel EDMS 06/29 13:52 Order name: Basic Metabolic Panel EDMS 06/29 13:52 Order name: CBC with Automated Diff EDMS 06/29 13:52 Order name: CBC with Automated Diff EDMS 06/29 11:30 Order name: IV Saline Lock; Complete Time: 11:47 ne2 06/29 11:30 Order name: NPO; Complete Time: 11:47 ne2 06/29 11:30 Order name: Urine Dipstick-Ancillary (obtain specimen); Complete Time: 12:41 ne2 06/29 13:52 Order name: CONS Pharmacy Consult EDIN 06/29 13:52 Order name: NPO EDIN Administered Medications: 11:47 Drug: NS 0.9% 1000 ml Route: IV; Rate: 1000 ml; Site: left forearm; jr10 12:41 Follow up: Response: No adverse reaction; IV Status: Completed infusion jr10 13:30 Drug: NS 0.9% 1000 ml Route: IV; Rate: 1 bolus; Site: left forearm; jr10 14:33 Follow up: Response: No adverse reaction; IV Status: Completed infusion jr10 13:30 Drug: Rocephin 1 grams Route: IV; Rate: calculated rate; Site: left forearm; jr10 14:34 Follow up: Response: No adverse reaction; IV Status: Completed infusion jr10 Disposition: 06/29/20 13:46 Hospitalization ordered by Judd Gurrola for Inpatient Admission. Preliminary diagnosis is Cystitis, unspecified with hematuria - with Pyelonephritis. - Bed requested for Telemetry/MedSurg (Inpatient). - Status is Inpatient Admission. jr10 - Condition is Stable. - Problem is new. - Symptoms are unchanged. Signatures: Dispatcher [employer] EDIN Sherice Tracy, Gary Braden RN, MD MD ma2 Melanie Joy Jessica, RN RN jr10 Corrections: (The following items were deleted from the chart) 14:14 13:46 Hospitalization Ordered by Judd Gurrola MD for Inpatient Admission. Preliminary diagnosis is Cystitis, unspecified with hematuria - with Pyelonephritis. Bed requested for Telemetry/MedSurg (Inpatient). Status is Inpatient Admission. Condition is Stable. Problem is new. Symptoms are unchanged. ma2 15:41 14:14 06/29/2020 13:46 Hospitalization Ordered by Judd Gurrola MD for Inpatient jr10 Admission. Preliminary diagnosis is Cystitis, unspecified with hematuria - with Pyelonephritis. Bed requested for Telemetry/MedSurg (Inpatient). Status is Inpatient Admission. Condition is Stable. Problem is new. Symptoms are unchanged. eb
[2020-06-29] MEDS ORDERED: ONDANSETRON 4 MG/2 ML VIAL IV PRN (13:48)
[2020-06-29] MEDS ORDERED: NA CHLORIDE 0.9% 1,000 ML IV SCH (14:00)
[2020-06-29 16:01] VITALS: BMI 45.3
[2020-06-29] MEDS: NA CHLORIDE 0.9% 1,000 ML IV SCH (18:10)
--- NOTE | 2020-06-29 19:40 | HP ---
Date of Admission: 06/29/2020 YOLY/MODL Voice ID: [id number] MTDD
[2020-06-29] MEDS ORDERED: DOFETILIDE 500 MCG PO SCH (21:00)
[2020-06-29] MEDS: DOXAZOSIN 4 MG TAB PO SCH (21:51)
[2020-06-29] MEDS: ASPIRIN EC 81 MG TAB PO SCH (21:52)
[2020-06-29] MEDS: atenoloL 50 MG TAB PO SCH (21:52)
[2020-06-29] MEDS: GABAPENTIN 100 MG CAP PO SCH (21:52)
[2020-06-29] MEDS: APIXABAN 5 MG TABLET PO SCH (21:52)
[2020-06-29] MEDS: ATORVASTATIN 10 MG TAB PO SCH (21:52)
[2020-06-29] MEDS: CEFTRIAXONE/SWI 1gm 1 GM/10 ML SYR IVP SCH (21:58)
[2020-06-30 04:13] LABS: Absolute Lymphocytes (CBC) 0.7 K/uL (0.7-4.9); Basophils % 0.4 % (0-1.3); Hematocrit 31.5 % (36.0-45.0); Lymphocytes % 12.4 % (15.3-44.8); MPV 7.8 fL (7.6-11.3); RBC Red Blood Cell Count 3.58 M/uL (3.86-4.86)
[2020-06-30 04:27] LABS: Potassium 3.3 mmol/L (3.5-5.1)
[2020-06-30] MEDS: NA CHLORIDE 0.9% 1,000 ML IV SCH ×2 (05:49→08:00)
[2020-06-30] MEDS: PANTOPRAZOLE 40MG TABLET PO SCH (05:50)
[2020-06-30] MEDS ORDERED: POTASSIUM CL SA 10 MEQ TAB PO ONE ×2 (07:26→16:00)
[2020-06-30] MEDS: VITAMIN D 5,000 UNIT CAP PO SCH (08:34)
[2020-06-30] MEDS: DOXAZOSIN 2 MG TAB PO SCH (08:34)
[2020-06-30] MEDS: AMLODIPINE 5 MG TAB PO SCH (08:35)
[2020-06-30] MEDS: LEVOTHYROXINE SOD 0.112 MG TAB PO SCH (08:35)
[2020-06-30] MEDS: GABAPENTIN 100 MG CAP PO SCH ×3 (08:35→20:24)
[2020-06-30] MEDS: APIXABAN 5 MG TABLET PO SCH ×2 (08:35→20:24)
[2020-06-30] MEDS: CEFTRIAXONE/SWI 1gm 1 GM/10 ML SYR IVP SCH ×2 (08:36→20:24)
[2020-06-30] MEDS: DOFETILIDE 500 MCG PO SCH ×2 (09:31→20:25)
[2020-06-30] MEDS: LIOTHYRONINE SOD 5 MCG TAB PO SCH (09:31)
[2020-06-30] MEDS: cloNIDine HCL 0.1 MG TAB PO PRN (12:03)
[2020-06-30] MEDS ORDERED: DOXAZOSIN 2 MG TAB ONE (20:19)
[2020-06-30] MEDS: ASPIRIN EC 81 MG TAB PO SCH (20:24)
[2020-06-30] MEDS: ATORVASTATIN 10 MG TAB PO SCH (20:24)
[2020-06-30] MEDS: atenoloL 50 MG TAB PO SCH (20:24)
[2020-06-30] MEDS: DOXAZOSIN 4 MG TAB PO SCH (20:34)
[2020-06-30] MEDS: ACETAMINOPHEN 500 MG TAB PO PRN (21:30)
[2020-07-01] MEDS: NA CHLORIDE 0.9% 1,000 ML IV SCH (05:39)
[2020-07-01 05:40] LABS: Basophils % 0.6 % (0-1.3); Hematocrit 32.4 % (36.0-45.0); Lymphocytes % 19.3 % (15.3-44.8); MPV 7.5 fL (7.6-11.3); RBC Red Blood Cell Count 3.65 M/uL (3.86-4.86)
[2020-07-01] MEDS: LEVOTHYROXINE SOD 0.112 MG TAB PO SCH (05:40)
[2020-07-01] MEDS: PANTOPRAZOLE 40MG TABLET PO SCH (05:40)
[2020-07-01 05:45] LABS: Potassium 3.5 mmol/L (3.5-5.1)
--- NOTE | 2020-07-01 05:54 | HP ---
Date of Admission: 06/30/2020 Chief Complaint: Back pain and flank pain. History Of Present Illness: This is an 80-year-old pleasant female patient, who presented to emergency room with few days history of left posterior flank pain and left anterior flank pain. She also noted some strong odor to her urine in last few days. Denies any fever or chills. No hematuria. No nausea. No vomiting. No fall. No injury. After she came into emergency room, she was evaluated and admitted to hospital with pyelonephritis and hyponatremia. This morning when I saw her, she is feeling somewhat better compared to yesterday. Allergies: LETY INHIBITOR. Medications: List reviewed. Review of Systems: Genitourinary: As mentioned above. Musculoskeletal: As mentioned above. All other systems reviewed and negative. Social History: Prior history of smoking, not at present time. Use of alcohol negative. Family History: Significant for father had heart disease, mother had pancreatic cancer, sister had pancreatic cancer. Past Surgical History: Cholecystectomy, appendectomy, rectocele repair, hysterectomy, bladder suspension, shoulder surgery, carpal tunnel surgery, knee surgery. Past Medical History: Significant for stroke, allergic rhinitis, hypothyroidism, impaired fasting glucose, hypertension, hyperlipidemia, paroxysmal atrial fibrillation, hyponatremia, asthma. Physical Examination: Vital Signs: Temperature 98.1, pulse 80, respiratory rate 16, blood pressure 144/65, oxygen saturation 98%. Height 5 feet 2 inches, weight 248 pounds. General: Awake, alert, oriented, not in distress. HEENT: Head atraumatic, normocephalic. Conjunctivae nonerythematous. Sclerae white. Mouth, no thrush or edema noted. Ears/Nose, no mass, lesion, discharge noted. Neck: Supple. No JVD, lymph nodes, bruit, thyromegaly noted. Lungs: Bilateral good equal air entry. Clear to auscultation. No rhonchi. No rales. Heart: Normal heart sounds, no murmur or gallop. Abdomen: Mild tenderness in the left anterior and posterior flank region. Otherwise, abdominal exam shows soft abdomen. Bowel sounds normoactive. No guarding or rigidity. No distention. No hepatosplenomegaly. No bruit. Extremities: No leg edema. No calf tenderness. Skin: No rash, ulcer, cellulitis. Lymphatics: No lymph node enlargement in neck, supraclavicular, infraclavicular region. Neuro: No focal neurological deficit. Chest: Unremarkable. External Genitalia: Deferred. Rectal: Deferred. Laboratory Data: White count 7.6, hemoglobin 13.2, platelets 197. Sodium 126, potassium 3.3, chloride 91, bicarb 27, BUN 12, creatinine 0.87, glucose 110. Liver function tests unremarkable. Lipase 229. Urinalysis showed 3+ blood, trace leukocyte esterase, WBC 5 to 10, bacteria less than 20. CAT scan of abdomen and pelvis shows left kidney pyelonephritis findings. Impression: 1. Acute pyelonephritis, left kidney. 2. Hyponatremia. 3. Hypertension. 4. Hyperlipidemia. 5. Paroxysmal atrial fibrillation. 6. Asthma. 7. Allergic rhinitis. 8. Hypothyroidism. 9. Impaired fasting glucose. Plan: We will go ahead and admit the patient to hospital for further evaluation and management of this problem. The patient is appropriate for inpatient and is expected to spend 2 midnights in hospital. Her hemoglobin this morning is 10.8, yesterday it was 13.2. There was no evidence of any bleeding. We will monitor that with another blood work tomorrow. Her sodium level upon admission yesterday was 126 with potassium 3.3 and this morning sodium level is 130 with potassium 3.3. We will replace potassium per electrolyte replacement protocol. Continue IV normal saline, but instead of 75 cc/hour, we will reduce rate down to 50 cc/hour. We will continue her other usual home medications. I will not give her antihypertensive medication, which is chlorthalidone as that could contribute to this hyponatremia problem. Follow up on her culture results and depending on her culture results, we will decide about final choice of antibiotics. Possible discharge to go home as early as tomorrow depending on the culture results and her blood work results. Plan of treatment discussed with her. YOLY/JAMIL Voice ID: [id number] LOBO
[2020-07-01] MEDS ORDERED: POTASSIUM 25 MEQ EFFERV TAB PO ONE (08:00)
[2020-07-01] MEDS: LIOTHYRONINE SOD 5 MCG TAB PO SCH (09:15)
[2020-07-01] MEDS: DOXAZOSIN 2 MG TAB PO SCH (09:16)
[2020-07-01] MEDS: GABAPENTIN 100 MG CAP PO SCH ×3 (09:17→20:20)
[2020-07-01] MEDS: APIXABAN 5 MG TABLET PO SCH ×2 (09:17→20:19)
[2020-07-01] MEDS: AMLODIPINE 5 MG TAB PO SCH (09:17)
[2020-07-01] MEDS: VITAMIN D 5,000 UNIT CAP PO SCH (09:18)
[2020-07-01] MEDS: DOFETILIDE 500 MCG PO SCH ×2 (09:19→20:22)
[2020-07-01] MEDS: PIPER/TAZO/NS 3.375gm 3.375 GM/100 ML BAG IVPB SCH ×2 (11:26→17:24)
[2020-07-01] MEDS: cloNIDine HCL 0.1 MG TAB PO PRN (13:31)
[2020-07-01] MEDS: ACETAMINOPHEN 500 MG TAB PO PRN (17:07)
[2020-07-01] MEDS: ATORVASTATIN 10 MG TAB PO SCH (20:19)
[2020-07-01] MEDS: ASPIRIN EC 81 MG TAB PO SCH (20:19)
[2020-07-01] MEDS: DOXAZOSIN 4 MG TAB PO SCH (20:20)
[2020-07-01] MEDS: atenoloL 50 MG TAB PO SCH (20:20)
--- NOTE | 2020-07-02 | PN ---
Date of Progress Note: 07/01/2020 Subjective: The patient was seen this morning for followup. She was lying in bed, not in any distre ss. Overall, she feels better. Her flank pain and anterior abdominal pain are almost resolved. No nausea, no vomiting. No new complaints or problems reported by her. The patient was overall reporti ng that she is feeling much better. Objective: Vital Signs: Reviewed. Remains afebrile. HEENT: Unremarkable. Lungs: Clear to auscultation. Heart: Sounds normal. Abdomen: Soft. Bowel sounds normal. No guarding, rigidity, tenderness, or distention. Extremities: No leg edema. Laboratory Data: The patient's urine culture report came back today and it is Proteus and it is resi stant to a lot of different antibiotics but it is sensitive to Cipro and Levaquin, meropenem, Zosyn, etc. White count 5.2, hemoglobin 11.3, platelets 188. Sodium 133, potassium 3.5, chloride 99, bicar b 27, BUN 12, creatinine 0.91, glucose 102. Impression: 1.Acute pyelonephritis. 2.Hyponatremia. 3.Atrial fibrillation. 4.Anemia. 5.Chronic anticoagulation therapy. 6.Hypertension. Plan: We will go ahead and discontinue the patient's IV fluid. Sodium level is almost near normal. Continue other current medications. We will change antibiotic from ceftriaxone. We will change it to Zosyn. I will discuss with the patient tomorrow regarding need for PICC line and to go home with IV Zosyn. This Proteus is sensitive to Cipro and Levaquin, but because of her antiarrhythmic medicat ion that she takes which is dofetilide, there is a significant drug interaction between antibiotic li ke Cipro and this antiarrhythmic drug, so we will avoid using any such medication because of her risk of cardiac arrhythmia. I will see her tomorrow and I will talk to her about need for PICC line plac ement and to go home with home IV antibiotic therapy. I did talk to the patient this morning as her daughter had informed me yesterday that the patient uses this toilet that has a device that sprays wa ter to assist her with cleaning after bowel movement and she does not use any toilet tissues or wipes . There is a concern about possibility of urinary tract infection as she may not be able to take car e of her personal hygiene adequately and I did talk to the patient about it and she told me that she has already told her grandson to change her toilet and she will no longer be using such toilet and sh e will go back to toilet tissue paper or wipes, but at the same time, she told me this morning that f rom now on she does not want me to communicate with her daughter unless she gives me permission or if she is present in the room. Otherwise, the patient does not want me to communicate with her [place] r anymore. So, I informed the patient that we will respect her decision. YOLY/JAMIL Voice ID: [id number] Report ID: [id number]
[2020-07-02] MEDS: PIPER/TAZO/NS 3.375gm 3.375 GM/100 ML BAG IVPB SCH ×3 (00:50→18:16)
[2020-07-02 05:09] LABS: Potassium 3.4 mmol/L (3.5-5.1)
[2020-07-02] MEDS: PANTOPRAZOLE 40MG TABLET PO SCH (05:32)
[2020-07-02] MEDS: LEVOTHYROXINE SOD 0.112 MG TAB PO SCH (05:32)
[2020-07-02] MEDS ORDERED: POTASSIUM 25 MEQ EFFERV TAB PO ONE (08:00)
[2020-07-02] MEDS: VITAMIN D 5,000 UNIT CAP PO SCH (09:33)
[2020-07-02] MEDS: LIOTHYRONINE SOD 5 MCG TAB PO SCH (09:34)
[2020-07-02] MEDS: GABAPENTIN 100 MG CAP PO SCH ×3 (09:34→20:53)
[2020-07-02] MEDS: DOXAZOSIN 2 MG TAB PO SCH (09:34)
[2020-07-02] MEDS: AMLODIPINE 5 MG TAB PO SCH (09:34)
[2020-07-02] MEDS: DOFETILIDE 500 MCG PO SCH ×2 (09:35→20:56)
[2020-07-02] MEDS: APIXABAN 5 MG TABLET PO SCH ×2 (09:36→20:53)
[2020-07-02] MEDS: ATORVASTATIN 10 MG TAB PO SCH (20:52)
[2020-07-02] MEDS: atenoloL 50 MG TAB PO SCH (20:53)
[2020-07-02] MEDS: ASPIRIN EC 81 MG TAB PO SCH (20:53)
[2020-07-02] MEDS: DOXAZOSIN 4 MG TAB PO SCH (21:00)
[2020-07-02] MEDS: ENSURE HIGH PROTEIN 237 ML CAN PO SCH (21:00)
[2020-07-02] MEDS ORDERED: DOXAZOSIN 2 MG TAB ONE (21:01)
--- NOTE | 2020-07-02 22:37 | PN ---
Date of Progress Note: 07/02/2020 Subjective: The patient was seen this morning for followup. No new complaints or problems reported by her except she says yesterday she did not feel good at all. This morning, she feels better. This morning when she urinated, she noted that she had gross hematuria and this started yesterday, she re ports. Objective: Vital Signs: Reviewed. HEENT: Unremarkable. Lungs: Clear. Heart: Sounds normal. Abdomen: Soft. Bowel sounds normal. No guarding, rigidity, tenderness, or distention. Extremities: No leg edema. Laboratory Data: Sodium 133, potassium 3.4, chloride 99, bicarb 27, BUN 11, creatinine 0.81, glucose 98. Impression: 1.Acute pyelonephritis. 2.Hyponatremia. 3.Hypokalemia. 4.Hypertension. 5.Atrial fibrillation. Plan: Continue current medication. We will continue antibiotic, which is Zosyn. I did discuss with the patient regarding urine culture results and plan to give IV antibiotics. PICC line was ordered. The patient had a PICC line before, so she is familiar with that. We will also request consultatio n from Social Service to help make arrangements for home IV antibiotic and home physical therapy. Zee bsequently, addiction social worker informed me that the patient may not be able to take care of this antibiotics at home and she may need to go to [facility], soc ial worker will assist with that. YOLY/MODL Voice ID: [id number] Report ID: [id number]
[2020-07-02] MEDS ORDERED: POTASSIUM CL SA 10 MEQ TAB PO ONE (22:44)
[2020-07-03] MEDS: PIPER/TAZO/NS 3.375gm 3.375 GM/100 ML BAG IVPB SCH ×2 (00:18→08:57)
[2020-07-03 05:52] LABS: Potassium 3.9 mmol/L (3.5-5.1)
[2020-07-03] MEDS: HYDROMORPHONE HCL 1 MG/ML INJ IV PRN (06:51)
[2020-07-03] MEDS: PANTOPRAZOLE 40MG TABLET PO SCH (06:52)
[2020-07-03] MEDS: LEVOTHYROXINE SOD 0.112 MG TAB PO SCH (06:52)
[2020-07-03] MEDS: AMLODIPINE 5 MG TAB PO SCH (08:53)
[2020-07-03] MEDS: GABAPENTIN 100 MG CAP PO SCH ×3 (08:56→21:24)
[2020-07-03] MEDS: DOXAZOSIN 2 MG TAB PO SCH (08:56)
[2020-07-03] MEDS: LIOTHYRONINE SOD 5 MCG TAB PO SCH (08:56)
[2020-07-03] MEDS: APIXABAN 5 MG TABLET PO SCH ×2 (08:56→21:24)
[2020-07-03] MEDS: ENSURE HIGH PROTEIN 237 ML CAN PO SCH ×2 (08:57→21:00)
[2020-07-03] MEDS: DOFETILIDE 500 MCG PO SCH ×2 (08:57→21:22)
[2020-07-03] MEDS: VITAMIN D 5,000 UNIT CAP PO SCH (08:57)
[2020-07-03] MEDS ORDERED: Meropenem 1000 MG/VIAL IV SCH (10:00)
[2020-07-03] MEDS: Meropenem 1,000 MG in NA CHLORIDE 0.9% 100 ML IV SCH ×2 (10:07→21:30)
[2020-07-03] MEDS: LOSARTAN POTASSIUM 50 MG TABLET PO SCH ×2 (10:07→21:24)
--- NOTE | 2020-07-03 10:29 | PN ---
Date of Progress Note: 07/03/2020 Subjective: The patient was seen this morning for followup. She is not feeling well as she reported this morning complaining of some left lower posterior flank pain and still continues to have gross h ematuria. Feels little bloated in her abdomen. No abdominal pain, nausea, vomiting. Appetite is fa ir. Objective: Vital Signs: Reviewed. HEENT: Unremarkable. Lungs: Clear to auscultation. Heart: Sounds normal. Abdomen: Soft. Bowel sounds normal. No guarding, rigidity, tenderness, distention. Extremities: No leg edema. Laboratory Data: Sodium 132, potassium 3.9, chloride 100, bicarb 27, BUN 10, creatinine 0.84, glucos e 93. Impression: 1.Acute pyelonephritis. 2.Gross hematuria. 3.Chronic atrial fibrillation. 4.Hypertension. 5.Hyponatremia. Plan: The patient's hyponatremia has improved. Sodium level is 132, almost back to normal and it is stable now. We will start her on losartan 50 mg p.o. 2 times a day, starting this morning because h er blood pressure is elevated, systolic blood pressure around 180 this morning. The patient is curre ntly on Zosyn, we will discontinue that and start her on IV meropenem. We will get renal and bladder ultrasound today, considering she continues to have this gross hematuria. We will also get urinalys is and urine culture done on her. The patient still does not have a PICC line and obviously with didi oing gross hematuria right now we change in plan of treatment today. She will not be getting discharged today for sure and I did talk to her about that. YOLY/MODL Voice ID: [id number] Report ID: [id number]
[2020-07-03 11:17] LABS: Urine Appearance CLOUDY; Urine Blood 3+ (NEG); Urine Color RED; Urine Glucose NEGATIVE (NEG); Urine Protein 2+ (NEG); Urine Urobilinogen 0.2 mg/dL (0.2-1.0); Urine pH 6.5 (5.0-7.0)
[2020-07-03 11:23] LABS: Urine Bilirubin NEGATIVE (NEG)
[2020-07-03 11:59] LABS: Urine Bacteria 20-50 /HPF (<20); Urine Culture Reflex Order NOT NEEDED; Urine RBC LOADED /HPF (NONE SEEN)
[2020-07-03] MEDS ORDERED: POTASSIUM CL SA 10 MEQ TAB PO ONE (13:00)
[2020-07-03] MEDS: ACETAMINOPHEN 500 MG TAB PO PRN (15:49)
[2020-07-03] MEDS: cloNIDine HCL 0.1 MG TAB PO PRN (15:49)
--- NOTE | 2020-07-03 16:47 | RAD REPORT ---
EXAM DESCRIPTION: US - Renal Ultrasound-Complete - 07/03/2020 4:36 pm CLINICAL HISTORY: . Hematuria. COMPARISON: June 29, 2020 cat scan FINDINGS: The right kidney measures 10 cm with a normal echotexture. Patient's previously described complex cyst was not clearly visualized this exam. The left kidney measures 11 cm with a normal echotexture. No abscess visualized Hydronephrosis is not seen. No gross abnormality of bladder IMPRESSION: No significant abnormalities displayed
--- NOTE | 2020-07-03 16:48 | RAD REPORT ---
EXAM DESCRIPTION: US - Urinary Bladder - 07/03/2020 4:36 pm CLINICAL HISTORY: Hematuria FINDINGS: Prevoid bladder volume equals 385 cc No postvoid residual No bladder mass is visualized IMPRESSION: Prevoid bladder volume equals 385 cc No postvoid residual
[2020-07-03] MEDS ORDERED: DOXAZOSIN 2 MG TAB ONE (20:59)
[2020-07-03] MEDS: DOXAZOSIN 4 MG TAB PO SCH (21:21)
[2020-07-03] MEDS: ATORVASTATIN 10 MG TAB PO SCH (21:23)
[2020-07-03] MEDS: ASPIRIN EC 81 MG TAB PO SCH (21:24)
[2020-07-03] MEDS: atenoloL 50 MG TAB PO SCH (21:24)
[2020-07-04] MEDS: PANTOPRAZOLE 40MG TABLET PO SCH (05:38)
[2020-07-04] MEDS: LEVOTHYROXINE SOD 0.112 MG TAB PO SCH (05:38)
[2020-07-04 06:14] LABS: Potassium 3.9 mmol/L (3.5-5.1)
[2020-07-04] MEDS: DOXAZOSIN 2 MG TAB PO SCH (08:24)
[2020-07-04] MEDS: AMLODIPINE 5 MG TAB PO SCH (08:25)
[2020-07-04] MEDS: GABAPENTIN 100 MG CAP PO SCH ×3 (08:25→20:47)
[2020-07-04] MEDS: LOSARTAN POTASSIUM 50 MG TABLET PO SCH ×2 (08:25→20:47)
[2020-07-04] MEDS: APIXABAN 5 MG TABLET PO SCH ×2 (08:25→20:48)
[2020-07-04] MEDS: LIOTHYRONINE SOD 5 MCG TAB PO SCH (08:25)
[2020-07-04] MEDS: VITAMIN D 5,000 UNIT CAP PO SCH (08:25)
[2020-07-04] MEDS: DOFETILIDE 500 MCG PO SCH ×2 (08:26→20:49)
[2020-07-04] MEDS: ENSURE HIGH PROTEIN 237 ML CAN PO SCH ×2 (08:27→20:52)
[2020-07-04] MEDS: Meropenem 1,000 MG in NA CHLORIDE 0.9% 100 ML IV SCH ×2 (08:27→20:46)
[2020-07-04] MEDS ORDERED: POTASSIUM CL SA 10 MEQ TAB PO ONE (09:00)
[2020-07-04] MEDS: cloNIDine HCL 0.1 MG TAB PO PRN (12:00)
[2020-07-04] MEDS: ACETAMINOPHEN 500 MG TAB PO PRN (12:01)
--- NOTE | 2020-07-04 12:06 | PN ---
Date of Progress Note: 07/04/2020 Subjective: The patient was seen this morning for followup. She denies any flank pain or abdominal pain. No nausea, no vomiting. Her appetite is not quite as good and that started since she started having this urinary tract infection problem. Hematuria is still present but she says it is a little better today compared to yesterday. Objective: Vital Signs: Reviewed. HEENT: Unremarkable. Lungs: Clear to auscultation. Heart: Sounds normal. Abdomen: Soft. Bowel sounds normal. No guarding, rigidity, tenderness, or distention. Extremities: No leg edema. Laboratory Data: Sodium 135, potassium 3.9, chloride 102, bicarb 27, BUN 10, creatinine 0.80, glucos e 88. Impression: 1.Acute pyelonephritis. 2.Gross hematuria. 3.Atrial fibrillation, chronic. 4.Hypertension. Plan: We will continue current medication. The patient's PICC line is still not in place. Hopefull y we might get it done tonight. Social Service to make arrangements for outpatient antibiotic therap y and the patient was telling me that she may have to come on outpatient basis to hospital for antibi otic instead of doing it at home. We will see what rn social services can help make arrangements for. Ea rliest possible discharge will be on Monday considering we are still waiting on PICC line and rn social services needs some time to make arrangements for antibiotics. I will repeat blood work tomorrow. Tobi al and bladder ultrasound was unremarkable and results discussed with the patient. The patient's blo od pressure was elevated. She is getting a stress start about this whole situation with antibiotics and cost of the treatment and everything and I did talk to her about this and advised her not to worry about certain things as it is affecting her blood pressure. We did add losa rtan yesterday. YOLY/MODL Voice ID: [id number] Report ID: [id number]
[2020-07-04] MEDS: ASPIRIN EC 81 MG TAB PO SCH (20:47)
[2020-07-04] MEDS: ATORVASTATIN 10 MG TAB PO SCH (20:47)
--- NOTE | 2020-07-04 20:47 | RAD REPORT ---
EXAM DESCRIPTION: RAD - Chest Single View - 07/04/2020 8:40 pm CLINICAL HISTORY: PICC line placement COMPARISON: February 2020 FINDINGS: Portable chest was obtained following placement of a left upper extremity PICC line. The c atheter tip is in the SVC atrial junction.
[2020-07-04] MEDS: DOXAZOSIN 4 MG TAB PO SCH (20:48)
[2020-07-04] MEDS: atenoloL 50 MG TAB PO SCH (20:48)
[2020-07-05] MEDS: PANTOPRAZOLE 40MG TABLET PO SCH (05:47)
[2020-07-05] MEDS: LEVOTHYROXINE SOD 0.112 MG TAB PO SCH (05:48)
[2020-07-05 06:37] LABS: Potassium 3.9 mmol/L (3.5-5.1)
[2020-07-05 06:38] LABS: Basophils % 0.5 % (0-1.3); Hematocrit 31.8 % (36.0-45.0); Lymphocytes % 22.4 % (15.3-44.8); MPV 7.6 fL (7.6-11.3); RBC Red Blood Cell Count 3.56 M/uL (3.86-4.86)
[2020-07-05] MEDS: AMLODIPINE 5 MG TAB PO SCH (08:12)
[2020-07-05] MEDS: LIOTHYRONINE SOD 5 MCG TAB PO SCH (08:13)
[2020-07-05] MEDS: DOXAZOSIN 2 MG TAB PO SCH (08:13)
[2020-07-05] MEDS: GABAPENTIN 100 MG CAP PO SCH ×3 (08:13→20:22)
[2020-07-05] MEDS: Meropenem 1,000 MG in NA CHLORIDE 0.9% 100 ML IV SCH ×2 (08:14→20:13)
[2020-07-05] MEDS: VITAMIN D 5,000 UNIT CAP PO SCH (08:14)
[2020-07-05] MEDS: APIXABAN 5 MG TABLET PO SCH ×2 (08:14→20:20)
[2020-07-05] MEDS: LOSARTAN POTASSIUM 50 MG TABLET PO SCH ×2 (08:14→20:20)
[2020-07-05] MEDS: DOFETILIDE 500 MCG PO SCH ×2 (08:15→20:19)
[2020-07-05] MEDS: ENSURE HIGH PROTEIN 237 ML CAN PO SCH ×2 (08:15→20:16)
[2020-07-05] MEDS ORDERED: POTASSIUM CL SA 10 MEQ TAB PO ONE (09:00)
[2020-07-05] MEDS ORDERED: cloNIDine HCL 0.1 MG TAB PO PRN (10:34)
[2020-07-05] MEDS: cloNIDine HCL 0.1 MG TAB PO SCH ×2 (12:22→20:20)
[2020-07-05] MEDS: ASPIRIN EC 81 MG TAB PO SCH (20:20)
[2020-07-05] MEDS: ATORVASTATIN 10 MG TAB PO SCH (20:20)
[2020-07-05] MEDS: DOXAZOSIN 4 MG TAB PO SCH (20:21)
[2020-07-05] MEDS: atenoloL 50 MG TAB PO SCH (20:21)
[2020-07-06 04:49] LABS: Potassium 3.9 mmol/L (3.5-5.1)
[2020-07-06] MEDS: LEVOTHYROXINE SOD 0.112 MG TAB PO SCH (05:39)
[2020-07-06] MEDS: PANTOPRAZOLE 40MG TABLET PO SCH (05:39)
[2020-07-06] MEDS: HYDROMORPHONE HCL 1 MG/ML INJ IV PRN (06:22)
[2020-07-06] MEDS: ENSURE HIGH PROTEIN 237 ML CAN PO SCH ×2 (09:00→20:35)
[2020-07-06] MEDS: DOFETILIDE 500 MCG PO SCH ×2 (09:00→20:45)
[2020-07-06] MEDS ORDERED: POTASSIUM CL SA 10 MEQ TAB PO ONE (09:00)
[2020-07-06] MEDS: Meropenem 1,000 MG in NA CHLORIDE 0.9% 100 ML IV SCH ×2 (09:54→20:35)
[2020-07-06] MEDS: LIOTHYRONINE SOD 5 MCG TAB PO SCH (09:58)
[2020-07-06] MEDS: cloNIDine HCL 0.1 MG TAB PO SCH ×2 (09:59→20:32)
[2020-07-06] MEDS: LOSARTAN POTASSIUM 50 MG TABLET PO SCH ×2 (10:00→20:32)
[2020-07-06] MEDS: AMLODIPINE 5 MG TAB PO SCH (10:00)
[2020-07-06] MEDS: DOXAZOSIN 2 MG TAB PO SCH (10:00)
[2020-07-06] MEDS: GABAPENTIN 100 MG CAP PO SCH ×3 (10:00→20:34)
[2020-07-06] MEDS: APIXABAN 5 MG TABLET PO SCH ×2 (10:01→20:32)
[2020-07-06] MEDS: VITAMIN D 5,000 UNIT CAP PO SCH (10:01)
--- NOTE | 2020-07-06 10:03 | PN ---
Date of Progress Note: 07/06/2020 Subjective: The patient was seen this morning for followup. The patient says that she is not feelin g as good in the last 24 hours as she is having abdominal pain and she associated that with her const ipation problem. At home, she gets constipated from time to time and takes stool softener. When we start talking about taking MiraLAX or milk of magnesia, the patient refuses to take it as she says th at her body does not tolerate those medications very well because she ends up having really bad cramp ing and cannot control her bowel movement after she takes it so she rather takes stool softener. She also reports her hematuria problem has improved in the last 24 hours. No fever or chills. No nause a, no vomiting. Objective: Vital Signs: Reviewed. HEENT: Unremarkable. Lungs: Clear to auscultation. Heart: Sounds normal. Abdomen: Soft. Bowel sounds normal. No guarding, rigidity, or distention. Presence of some mild t enderness, lower abdomen and left side of abdomen. No rebound tenderness. Bowel sounds normoactive. Extremities: Trace leg edema. Laboratory Data: Sodium 133, potassium 3.9, chloride 100, bicarb 27, BUN 10, creatinine 0.83, glucos e 91. Impression: 1.Acute pyelonephritis. 2.Hypertension. 3.Chronic atrial fibrillation. 4.Hyponatremia. 5.Constipation. 6.Gross hematuria. Plan: We are waiting on nephrology consultation. Meanwhile, we will continue current antibiotic, me ropenem. Stool softener, Senokot-S, was ordered 2 tablets daily to be started this morning. We will continue current antihypertensive medication. Hyponatremia problem is stable and blood pressure is under better control with current medications. We will continue that. Hopefully, we can plan to discharge her to go home in next day or so. YOLY/MODL Voice ID: [id number] Report ID: [id number]
[2020-07-06] MEDS: DOCUSATE NA/SENNA CONC 1 TAB PO SCH (13:45)
--- NOTE | 2020-07-06 16:20 | CON ---
Date of Consultation: 07/05/2020 Chief Complaint: Hematuria, back pain and flank pain. History Of Present Illness: The patient is admitted to the hospital on June 30 for back pain and flank pain. The patient has history of left posterior flank pain and left anterior flank pain. She has some dysuria over the last several days prior to this admission. She denies fever or chills. No hematuria. The patient was found to have pyelonephritis and we started on antibiotics. She was found to have hyponatremia and IV fluids were started to treat volume depletion. Review of Systems: The patient could not provide review of systems. She is lethargic. Social History: Prior history of smoking. She quit smoking. Denies alcohol. Family History: Significant for heart disease. Mother had pancreatic cancer. Sister had pancreatic cancer. Past Medical History: CVA, allergic rhinitis, hypothyroidism, impaired fasting glucose, hypertension, hyperlipidemia, paroxysmal atrial fibrillation, hyponatremia, and asthma. Past Surgical History: Cholecystectomy, appendectomy, hysterectomy, bladder suspension, shoulder surgery, carpal abdomen syndrome, and knee surgery. Physical Examination: General: The patient is awake, alert, not in acute distress. Eyes: Anicteric sclerae. EOMI. Ears, Nose, Mouth and Throat: Oral mucosa moist. No pallor. Neck: Supple. No bruits. Lungs: Diminished breath sounds. Few crackles. Heart: S1, S2. Abdomen: Soft, benign. Extremities: Minimal edema. Laboratory Data: Hemoglobin 11.1, WBC 4.5, platelet count is 223,000. Sodium is 134, potassium 3.9, chloride 101, CO2 26, BUN 11, creatinine 0.81, glucose 86. A pH 6.5, specific gravity 1.010, ketones 1+, blood 3+, rbc loaded, wbc from 5 to 10. Urine protein 3+. Impression And Plan: The patient was admitted to the hospital and was found to have hematuria. The patient will have workup for possible vasculitis. Renal function has been at the same range, although there is proteinuria present and hematuria may be related to urinary tract infection with acute pyelonephritis. Chronic kidney disease. The patient developed hematuria. The patient may need cystoscopy. In view of hematuria, plan is to check vasculitis panel and proteinuria panel. Continue IV fluids. Re-evaluate renal function and doppler of the kidneys. HTN benign nephroscl EB/MODL Voice ID: [id number] Report ID: [id number] MTDD
--- NOTE | 2020-07-06 18:58 | PN ---
Date of Progress Note: 07/05/2020 Subjective: The patient reports feeling better today compared to yesterday. Says her appetite has i mproved. Denies any flank pain or abdominal pain. Still continues to have gross hematuria, but it i s somewhat better as reported by the patient compared to yesterday. No nausea. No vomiting. Objective: Vital Signs: Reviewed. Blood pressure remains elevated. HEENT: Unremarkable. Lungs: Clear to auscultation. No rhonchi or rales. Heart: Sounds normal. Abdomen: Soft. Bowel sounds normal. No guarding, rigidity, tenderness, or distention. Extremities: No leg edema. Laboratory Data: White count 4.5, hemoglobin 11.1, platelets 223. Sodium 134, potassium 3.9, chlori de 101, bicarb , BUN 11, creatinine 0.81, glucose 81. Impression: 1.Acute pyelonephritis. 2.Gross hematuria. 3.Hyponatremia. 4.Hypertension. 5.Atrial fibrillation. 6.Chronic anticoagulation therapy. Plan: We will continue current medication, which is antibiotic meropenem. The patient continues to have this gross hematuria and it is improving as she reports, but at this point there is no other con cern except the patient is being on anticoagulation therapy that would be a consideration for this on going hematuria. I will request consultation from territory development manager. Renal ultrasound was unremarkable. For blood pressure controls, we will continue current antihypertensive medication. She is on clonid ine p.r.n., which I have changed to every 6 hours p.r.n., but also have added clonidine 0.1 mg 2 time s a day per schedule doses. I will see her tomorrow for followup. She does have a PICC line in her left arm. Tomorrow we should have Social Service start to assist us with arrangements for outpatient antibiotic therapy. YOLY/MODL Voice ID: [id number] Report ID: [id number]
[2020-07-06] MEDS ORDERED: DOXAZOSIN 2 MG TAB ONE (20:25)
[2020-07-06] MEDS: ATORVASTATIN 10 MG TAB PO SCH (20:32)
[2020-07-06] MEDS: atenoloL 50 MG TAB PO SCH (20:33)
[2020-07-06] MEDS: ASPIRIN EC 81 MG TAB PO SCH (20:34)
[2020-07-06] MEDS: DOXAZOSIN 4 MG TAB PO SCH (20:34)
[2020-07-06] MEDS: ACETAMINOPHEN 500 MG TAB PO PRN (21:43)
--- NOTE | 2020-07-07 04:44 | PN ---
Date of Progress Note: 07/06/2020 Chief Complaint: Hematuria. Subjective: The patient is admitted to the hospital because of back pain and flank pain. She was fo und to have hematuria. The patient was admitted on June 30 to the hospital and was started on antibiotics. She was complaining of left posterior flank pain and left anterior flank pain. She had some dysuria. She was found to have hyponatremia, was started on IV fluids to treat volume depletio n. Review of Systems: Cannot provide review of systems. She is lethargic. Physical Examination: Lungs: Diminished breath sounds at bases. Heart: S1, S2. Abdomen: Soft, benign. Extremities: Minimal edema. Laboratory Data: Sodium 134, potassium 3.9, chloride 101, CO2 26, BUN 11, creatinine 0.81, glucose 8 6. Urine showed protein 3+, RBC loaded, WBC from 5-10, specific gravity 1.010, ketones 1+, blood 3+. Urine culture showed Proteus vulgaris, sensitive to tobramycin, levofloxacin, Cipro, and meropenem. Impression And Plan: 1.Hematuria, urinary tract infection. Continue antibiotics. 2.Hypertension. Continue blood pressure medication and adjust treatment according to systolic blood pressure. 3.The patient was complaining of flank pain. Workup was ordered to rule out obstructive uropathy. Avoid nephrotoxic medications. Continue current treatment and adjust antibiotics to renal function a nd urine culture. Renal function has been at the same range, although there is proteinuria present a nd hematuria in view of urinalysis with proteinuria changes. The patient is undergoing workup to rule out nephritis. Re-evaluate renal function and Doppler of the kidneys with renal ultra sound. RUSLAN/JAMIL Voice ID: [id number] Report ID: [id number]
[2020-07-07] MEDS: LEVOTHYROXINE SOD 0.112 MG TAB PO SCH (05:17)
[2020-07-07] MEDS: PANTOPRAZOLE 40MG TABLET PO SCH (05:17)
[2020-07-07] MEDS: ENSURE HIGH PROTEIN 237 ML CAN PO SCH ×2 (09:00→20:32)
[2020-07-07] MEDS: DOFETILIDE 500 MCG PO SCH ×2 (09:00→20:28)
[2020-07-07] MEDS: cloNIDine HCL 0.1 MG TAB PO SCH ×2 (09:08→20:30)
[2020-07-07] MEDS: Meropenem 1,000 MG in NA CHLORIDE 0.9% 100 ML IV SCH ×2 (09:08→20:32)
[2020-07-07] MEDS: GABAPENTIN 100 MG CAP PO SCH ×3 (09:09→20:31)
[2020-07-07] MEDS: LIOTHYRONINE SOD 5 MCG TAB PO SCH (09:09)
[2020-07-07] MEDS: LOSARTAN POTASSIUM 50 MG TABLET PO SCH ×2 (09:10→20:29)
[2020-07-07] MEDS: VITAMIN D 5,000 UNIT CAP PO SCH (09:10)
[2020-07-07] MEDS: DOCUSATE NA/SENNA CONC 1 TAB PO SCH (09:10)
[2020-07-07] MEDS: DOXAZOSIN 2 MG TAB PO SCH (09:11)
[2020-07-07] MEDS: AMLODIPINE 5 MG TAB PO SCH (09:11)
[2020-07-07] MEDS: APIXABAN 5 MG TABLET PO SCH (09:12)
--- NOTE | 2020-07-07 11:06 | PN ---
Date of Progress Note: 07/07/2020 Subjective: The patient was seen this morning for followup. No new complaints or problems reported by the patient. She was lying in bed, not in distress. Overall, she feels better today compared to yesterday. Abdominal pain has improved. She did have bowel movement yesterday. She still continues to have gross hematuria and I did see her urine specimen this morning and it has remained unchanged in last 2 to 3 days. Objective: Vital Signs: Reviewed. HEENT: Unremarkable. Lungs: Clear to auscultation. Heart: Sounds normal. Abdomen: Soft. Bowel sounds normal. No guarding, rigidity, tenderness, or distention. Extremities: No leg edema. Laboratory Data: Sodium 136, potassium 4, chloride 103, bicarb 26, BUN 11, creatinine 0.80, glucose 99. Impression: 1.Gross hematuria. 2.Acute pyelonephritis. 3.Chronic anticoagulation therapy. 4.Hypertension. 5.Atrial fibrillation, chronic. 6.Chronic constipation. Plan: We will continue current stool softener. We will go ahead and continue to follow with nephrol ogist. I did request consultation from c++ professor, Dr. Dunn considering the patient is on Eliqu is and presence of this gross hematuria, which I believe is likely due to combination of the patient being on Eliquis in presence of pyelonephritis. I did talk to Dr. Dunn and he agrees that is prob ably the likely reason and he has suggested to discontinue Eliquis for few days and once her hematuri a problem resolves to consider to restart Eliquis, but at a lower dose of 2.5 mg 2 times a day. Shotgun Shell Loading Machine Operator is working her up for oth er causes of hematuria. YOLY/MODL Voice ID: [id number] Report ID: [id number]
[2020-07-07] MEDS ORDERED: DOXAZOSIN 2 MG TAB ONE (20:12)
[2020-07-07] MEDS: atenoloL 50 MG TAB PO SCH (20:29)
[2020-07-07] MEDS: ASPIRIN EC 81 MG TAB PO SCH (20:29)
[2020-07-07] MEDS: ATORVASTATIN 10 MG TAB PO SCH (20:30)
[2020-07-07] MEDS: DOXAZOSIN 4 MG TAB PO SCH (20:31)
--- NOTE | 2020-07-07 21:42 | PN ---
Date of Progress Note: 07/07/2020 Subjective: The patient was admitted with UTI, pyelonephritis, and hematuria. The patient has persistent hematuria. The patient denied any chest pain. According to the patient, the patient still had hematuria. Physical Examination: Vital Signs: When I saw the patient, blood pressure 171/72, pulse of 63, afebrile. Chest: Clear to auscultation. Heart: S1, S2. Systolic murmur. Abdomen: Soft, nontender. Extremities: Trace edema. Neurologic: Alert. Nonfocal. Laboratory Data: WBC 4.5, H and H 11.1/31.8, platelets 223. Sodium 136, potassium 4, bicarb 26, BUN 11, creatinine 0.8, calcium 8.7. Urinalysis; RBC loaded, WBC of 10. Serology is still pending. Current Medications: The patient on its include; 1. Aspirin. 2. Meropenem 1000 b.i.d. 3. Amlodipine 5 mg. 4. Atenolol 50 mg at bedtime. 5. Clonidine 0.1 b.i.d. 6. Cardura 2 mg daily. 7. Losartan 50 b.i.d. 8. Gabapentin. 9. Ensure. 10. Pantoprazole. 11. Levothyroxine. 12. Docusate. Assessment And Plan: 1. Hematuria, on complex cyst and pyelonephritis, mostly secondary to urinary tract infection and complex cyst, superimposed with anticoagulation of the Eliquis. Agree with holding the Eliquis if okay with Cardiology. Discussed with Dr. Gurrola regarding that. We will continue current antibiotic and we will follow up. Given that persistent on hematuria and +2 proteinuria, sent for the serology. 2. Complex cyst with hematuria. CT did not show any changes on the finding. We need to monitor. We will continue current antibiotics to clear up the infection. 3. Pyelonephritis as above. 4. Hypokalemia, status post supplement. 5. Cardiac arrhythmia as by Cardiology. time spent to coordinate the care , discussing with other team meember the care , face to face with the patient and discussed the plan with patient , placing order 35 min AURELIA/JAMIL Voice ID: [id number] Report ID: [id number]
[2020-07-07 22:16] LABS: Urine Protein/Creatinine Ratio 5.1 ratio (<0.15)
--- NOTE | 2020-07-08 02:28 | CON ---
Date of Consultation: 07/07/2020 Reason For Admission: The patient had been admitted by Dr. Gurrola for pyelonephritis on 06/29/2020. Reason For Consultation: Hematuria with history of Eliquis intake for chronic atrial fibrillation. History Of Present Illness: Ms. You is an 80-year-old woman, who is known to me from previous of fice visits and admission. She was admitted on 06/29/2020 with acute pyelonephritis and has been natanael ing IV antibiotics and her Eliquis for chronic atrial fibrillation. She also has a history of hypert ension, hypothyroidism, CVA and asthma, and multiple surgeries including knee replacement, appendecto my, cholecystectomy, hysterectomy, bladder suspension, rectocele repair, fundoplication, left shoulde r surgery as well as carpal tunnel repair. She has not had any cardiac symptoms, but has had signifi cant hematuria. Allergies: NEMBUTAL. Medications: At home include aspirin, atenolol, baclofen, clonidine. She takes Tikosyn 500 mg b.i.d ., doxazosin. She is on Edarbyclor. She is on gabapentin, hydralazine. She is on Synthroid. She a lso takes pravastatin and Vascepa. Review of Systems: Negative. Social History: Negative. Family History: Noncontributory. Physical Examination: Vital Signs: Today, she was in sinus rhythm. Blood pressure is 171/72, her pulse was 63. HEENT: Negative. Neck: Supple. No bruit. Chest: Clear. Cardiac: Irregular rhythm and rate. No murmurs, gallops, or rubs. Abdomen: Benign. Extremities: No clubbing, cyanosis, or edema. Impression And Plan: 1.The patient with paroxysmal atrial fibrillation. She is in sinus rhythm. She is on Tikosyn. She is on aspirin and she is on Eliquis at home, and I think we can definitely stop her Eliquis right no w. Certainly, a baby aspirin could be continued since she is in sinus rhythm. I think we are safe t o do this until her hematuria resolves. We can always resume her Eliquis later, probably at a lower dose of 2.5 mg b.i.d. Continue her antiarrhythmic otherwise. 2.Her other problems, which include dyslipidemia, asthma, history of cerebrovascular accident, hyper tension, and hypothyroidism, are all stable and she is on appropriate therapy in that regard. The case was discussed with Dr. Gurrola. I certainly do not suggest any further cardiac workup on her a t this point. CIRILO/JAMIL Voice ID: [id number] Report ID: [id number]
[2020-07-08 04:58] LABS: Absolute Lymphocytes (CBC) 1.2 K/uL (0.7-4.9); Basophils % 1.2 % (0-1.3); Hematocrit 31.2 % (36.0-45.0); Lymphocytes % 26.2 % (15.3-44.8); MPV 7.9 fL (7.6-11.3); RBC Red Blood Cell Count 3.51 M/uL (3.86-4.86)
[2020-07-08 05:41] LABS: Ferritin 80.8 ng/mL (8-388); Folic Acid, (Folate) 16.2 ng/mL (3.1-17.5); Magnesium 2.1 mg/dL (1.8-2.4); Phosphorus 3.2 mg/dL (2.5-4.9)
[2020-07-08] MEDS: PANTOPRAZOLE 40MG TABLET PO SCH (05:45)
[2020-07-08] MEDS: LEVOTHYROXINE SOD 0.112 MG TAB PO SCH (05:45)
[2020-07-08 06:49] LABS: Rheumatoid Factor NEG (NEG)
[2020-07-08] MEDS: ENSURE HIGH PROTEIN 237 ML CAN PO SCH (09:00)
[2020-07-08] MEDS: DOFETILIDE 500 MCG PO SCH (09:00)
[2020-07-08] MEDS: DOCUSATE NA/SENNA CONC 1 TAB PO SCH (09:00)
[2020-07-08] MEDS: Meropenem 1,000 MG in NA CHLORIDE 0.9% 100 ML IV SCH (09:09)
[2020-07-08] MEDS: AMLODIPINE 5 MG TAB PO SCH (09:09)
[2020-07-08] MEDS: cloNIDine HCL 0.1 MG TAB PO SCH (09:09)
[2020-07-08] MEDS: LOSARTAN POTASSIUM 50 MG TABLET PO SCH (09:10)
[2020-07-08] MEDS: LIOTHYRONINE SOD 5 MCG TAB PO SCH (09:10)
[2020-07-08] MEDS: VITAMIN D 5,000 UNIT CAP PO SCH (09:10)
[2020-07-08] MEDS: GABAPENTIN 100 MG CAP PO SCH (09:10)
[2020-07-08] MEDS: DOXAZOSIN 2 MG TAB PO SCH (09:10)
[2020-07-08 09:47] VITALS: O2SAT 95
[2020-07-08] MEDS: ACETAMINOPHEN 500 MG TAB PO PRN (12:17)
--- NOTE | 2020-07-08 12:22 | PN ---
Date of Progress Note: 07/08/2020 Subjective: The patient was admitted with hematuria, UTI, found to have complex cyst, persistent hematuria. The patient used to be on Eliquis for cardiac arrhythmias. Objective: Vital Signs: When I saw the patient, blood pressure 146/66, pulse of 59. Chest: Clear to auscultation. Heart: S1, S2. Regular. Abdomen: Soft, nontender, morbidly obese. Extremities: Trace edema. Neurologic: Alert. No focality. Laboratory Data: WBC 4.8, H and H 10.7/31.2, platelets of 143. Sodium 136, potassium 4, bicarb 27, BUN 12, creatinine 0.7, GFR of 71. Iron saturation of 12. Protein of 80. Serum protein electrophoresis is still pending. Urinalysis; PC ratio . Serology is still pending. Assessment And Plan: 1. 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 We will follow up the serology as outpatient for the nephrotic range proteinuria. The patient is already on losartan and we will follow up. 2. Doubt to be nephritis, possible the patient can be focal segmental glomerulosclerosis secondary to obesity/thin basement membrane. We will follow up workup. 3. Complex cyst with hematuria. I agree with holding the Eliquis for the time being. We will follow up with Cardiology and Urology as outpatient. 4. Hypertension, controlled, optimal. I am going to increase her amlodipine for better blood pressure control. 5. Nephrotic-range proteinuria as above. 6. Urinary tract infection secondary to Proteus. Continue meropenem. Agree with discharge planning, to follow up in the office in 2-3 weeks. time spent to coordinate the care , discussing with other team meember the care , face to face with the patient and discussed the plan with patient , placing order 35 min AURELIA/JAMIL Voice ID: [id number] Report ID: [id number] LOBO
[2020-07-08 13:15] VITALS: BP 164/70; TEMP 98.1
--- NOTE | 2020-07-09 03:14 | DS ---
Date of Discharge: 07/08/2020 Subjective: The patient was seen this morning for followup. No new complaints or problems reported by the patient. She denies any chest pain, shortness of breath, nausea, or vomiting. Objective: Vital Signs: Reviewed. HEENT: Unremarkable. Lungs: Clear to auscultation. Heart: Sounds normal. Abdomen: Soft. Bowel sounds normal. No guarding, rigidity, tenderness, or distention. Extremities: No leg edema. Laboratory Data: This morning white count 4.8, hemoglobin 10.7, platelets 143. Upon admission, whit e count 7.6, hemoglobin 13.2, platelets 197, that was on 06/29/2020. Day after admission, white coun t 5.8, hemoglobin 10.8, platelets 191. Last chemistry today; sodium 136, potassium 4, chloride 103, bicarb 27, BUN 12, creatinine 0.78, glucose 82. Liver function tests unremarkable. Vitamin B12 leve l 320, folic acid level . Hospital Course: This is an 80-year-old pleasant female patient, admitted to the hospital with compl aints of flank pain, back pain, and gross hematuria. Please see dictated H and P for more informatio n. After the patient was evaluated in the emergency room, she was admitted to the hospital with acut e pyelonephritis involving left kidney. Her home medications were continued including her anticoagul ation therapy which is Eliquis that she takes for atrial fibrillation. Initially, she was started on IV antibiotic Zosyn and her gross hematuria did not improve. She had a urine culture done, and acco rding to culture and sensitivity result, it was appropriate antibiotic, but considering her symptoms and her gross hematuria did not improve, we change it to meropenem on 07/03/2020. PICC line was plac ed and Social Service was consulted to help make arrangements for the patient to receive outpatient a ntibiotic therapy. The patient had left flank pain and back pain when she first came in. Overall, t he back pain has improved during this hospitalization. She did have episode of abdominal pain on the left side as well as lower abdominal area. This was related to constipation problem, and once the c onstipation problem got resolved, abdominal pain got resolved. She did have some brief time during t his hospitalization where her appetite was poor, but once meropenem was started, slowly her appetite improved. Her gross hematuria has not improved during this hospitalization. CAT scan of the abdomen has not shown any abnormality besides the changes of pyelonephritis. We did obtain renal ultrasound and bladder ultrasound which was negative for any acute changes. Nephrology consultation was obtain ed from Dr. Falcon for this hematuria problem and he has done some medical workup for that, but it is his belief, my belief, and Dr. Dunn, health policy nurse's belief that her gross hematuria is due to p robably combination of use of anticoagulation therapy along with pyelonephritis. The patient is in s inus rhythm and Dr. Dunn recommended to discontinue her Eliquis at this point until her hematuria resolves and then we can consider to restart at lower dose of 2.5 mg twice a day. The patient's last dose of Eliquis was in the morning of 07/07/2020 and then this particular medication was discontinue d. She was made aware of this treatment plan and she understands and agrees with that. She is on an tiarrhythmic medication, called Tikosyn, and because of that, there is interaction between this antia rrhythmic medication and antibiotic like Cipro, so this kind of antibiotic we did not prescribe it be cause of possible interaction with this antiarrhythmic medication. Social Service was consulted, and after all the arrangements completed for outpatient antibiotic therapy today the patient was dischar sid to go home in stable condition. She did have hyponatremia problem when she came in and she was o n Edarbyclor, that particular medication was discontinued upon admission, and she was started on losa rtan 50 mg 2 times a day. Her hyponatremia problem has resolved and sodium level has remained normal . The patient was made aware of that if the hematuria continues then she will need to go ahead and v isit with urologist in [place] for cystoscopy . Discharge Medications And Instructions: 1.Continue all prior home medications except stop edarbyclor and stop Eliquis and start losartan 50 mg p.o. 2 times a day. 2.Meropenem 1000 mg IV every 12 hours for 1 week and the patient will come to Day Surgery in the [facility], [place] for morning dose and evening time she will come to the emergency room. Over the weekend, she wi ll come to the emergency room for her antibiotic therapy. Once antibiotic therapy gets completed, PI CC line to be discontinued and all these instructions were given to charge nurse today. Upon admissi on, her sodium level was 126 with potassium 3.3. Final Diagnoses: 1.Acute pyelonephritis, left kidney. 2.Hyponatremia. 3.Hypokalemia. 4.Hypertension. 5.Gross hematuria. 6.Paroxysmal atrial fibrillation. 7.Chronic anticoagulation therapy. 8.Hyperlipidemia. 9.Asthma. 10.Allergic rhinitis. 11.Hypothyroidism. 12.Impaired fasting glucose. 13.Anemia, due to acute blood loss. YOLY/MODL Voice ID: [id number] Report ID: [id number]
[2020-07-09] MEDS ORDERED: AMLODIPINE 10 MG TAB PO SCH (09:00)
== END 2020-07-08 12:30 | disposition home health service (06) | DRG 690 ==
LOC: ER 11:14 → ERHOLD 13:48 → 2ND 15:25
PROVIDERS: ADMIT Internal Medicine; ATTEND Internal Medicine
PROC: 02HV33Z Insertion of Infusion Device into Superior Vena Cava, Percutaneous Approach (ICD-10-PCS; principal; 2020-07-04)
DX: N10 Acute pyelonephritis (principal); E87.1 Hypo-osmolality and hyponatremia; Z16.20 Resistance to unspecified antibiotic; Z68.42 Body mass index [BMI] 45.0-49.9, adult; D62 Acute posthemorrhagic anemia; E78.5 Hyperlipidemia, unspecified; I48.0 Paroxysmal atrial fibrillation; E03.9 Hypothyroidism, unspecified; R73.01 Impaired fasting glucose; E66.9 Obesity, unspecified; J45.909 Unspecified asthma, uncomplicated; B96.4 Proteus (mirabilis) (morganii) as the cause of diseases classified elsewhere; E87.6 Hypokalemia; R31.0 Gross hematuria; K59.00 Constipation, unspecified; N18.9 Chronic kidney disease, unspecified; I12.9 Hypertensive chronic kidney disease with stage 1 through stage 4 chronic kidney disease, or unspecified chronic kidney disease; N28.89 Other specified disorders of kidney and ureter; I49.9 Cardiac arrhythmia, unspecified; Z96.659 Presence of unspecified artificial knee joint; Z79.01 Long term (current) use of anticoagulants; Z90.710 Acquired absence of both cervix and uterus; Z87.891 Personal history of nicotine dependence; Z86.73 Personal history of transient ischemic attack (TIA), and cerebral infarction without residual deficits; Z90.49 Acquired absence of other specified parts of digestive tract; Z20.828 Contact with and (suspected) exposure to other viral communicable diseases
CPT/HCPCS: 36415; 36569; 71045; 74177; 76770; 76857; 80048; 80069; 80076; 81001; 81003; 81015; 82565; 82570; 82607; 82728; 82746; 82947; 83520; 83540; 83690; 83735; 84132; 84156; 84165; 84466; 84550; 85025; 85044; 86021; 86038; 86160; 86225; 86317; 86430; 86704; 86706; 87077; 87086; 87088; 87186; 87340; 87522; 96361; 96365; 99285; J0696; J1170; J2185; J2543; J7030; Q9967; U0002

== ENCOUNTER 2021-03-23 08:55 | Day surgery (SDC) | payer OTHER, MEDICARE ==
--- NOTE | 2021-03-19 11:28 | RAD REPORT ---
EXAM DESCRIPTION: RAD - Chest Pa And Lat (2 Views) - 03/19/2021 11:11 am CLINICAL HISTORY: left heart cath Chest pain. COMPARISON: Chest Single View dated 07/04/2020; Chest Single View dated 03/09/2020; Chest Single View dated 12/27/2019; Chest Pa And Lat (2 Views) dated 09/24/2019 FINDINGS: Mild pulmonary edema. The heart is moderately enlarged in size. No displaced fractures. IMPRESSION: Mild CHF.
[2021-03-23] MEDS ORDERED: NA CHLORIDE 0.9% 500 ML ONE (09:19)
[2021-03-23] MEDS ORDERED: HEPA 1000U/500MLS 1,000 UNIT/500 ML BAG IV ONE (10:08)
[2021-03-23] MEDS ORDERED: MIDAZOLAM HCL 2 MG/2 ML INJ ONE (10:19)
[2021-03-23] MEDS ORDERED: NA CHLORIDE 0.9% 0 ML ONE (10:20)
[2021-03-23] MEDS ORDERED: FENTANYL CITR 100 MCG/2 ML ONE (10:20)
[2021-03-23] MEDS ORDERED: ATROPINE SULF 1 MG/10 ML SYR IV ONE (10:20)
[2021-03-23 11:24] VITALS: TEMP 96
[2021-03-23 12:22] VITALS: BP 147/58; O2SAT 96
--- NOTE | 2021-03-23 12:25 | OP ---
Date of Procedure: 03/23/2021 Surgeon: Evan Dunn MD Supervisor Welding Equipment Repairer: Mr. Fowler. The patient has StarClose to close the right groin. We will plan to discharge in 2 hours and I will make arrangement for followup later. She will be in the hospital for 2 hours bedrest. Procedure: The patient underwent left heart catheterization, selective coronary arteriogram, left ve ntriculogram. Indication: Unstable angina. Procedure In Detail: Ms. You is an 80-year-old woman with consistent shortness of breath, dyspne a on exertion, paroxysmal atrial fibrillation, on Tikosyn and Eliquis, obesity, hypertension, diabete s, dyslipidemia, brought to the cath lab radiology technician today for unstable angina, prepped and draped in routine bennie rile fashion, given Versed and fentanyl for sedation. A 6-Maltese sheath introduced in the right comm on femoral artery successfully using the Seldinger technique and 10 mL of Xylocaine. Angiography the re was normal. StarClose was used to close the procedure. Six-Maltese catheters, left and right were used to do the diagnostic catheterization. She had a normal left main. She had about a 70% ostial LAD, 60% proximal circ, mid OM and distal circ. She was left dominant. RCA was small and normal. T he JR4 catheter was used to cannulate the LV. LV-gram showed normal ejection fraction, no wall motio n abnormalities. End-diastolic pressure was 20 mmHg. There were no complications. Blood Loss: 5 mL. Anesthesia: Total conscious sedation was 45 minutes. Postoperative Diagnosis: [id number] coronary artery disease. Plan: To review the film with CV Surgery in [place], for now medical therapy, possible CABG. CIRILO/JAMIL Voice ID: [id number] Report ID: [id number]
== END 2021-03-23 13:05 | disposition home or self-care (01) ==
LOC: CCL 08:55
DX: I25.110 Atherosclerotic heart disease of native coronary artery with unstable angina pectoris (principal); I48.0 Paroxysmal atrial fibrillation; I11.0 Hypertensive heart disease with heart failure; I50.31 Acute diastolic (congestive) heart failure; I65.23 Occlusion and stenosis of bilateral carotid arteries; E78.2 Mixed hyperlipidemia; E03.9 Hypothyroidism, unspecified; F34.1 Dysthymic disorder; H25.9 Unspecified age-related cataract; Z88.8 Allergy status to other drugs, medicaments and biological substances; Z86.73 Personal history of transient ischemic attack (TIA), and cerebral infarction without residual deficits; Z20.822 Contact with and (suspected) exposure to COVID-19
CPT/HCPCS: 71046; 93458; U0003; C1893; J2250; J3010; J7040; J1644; J0583

== ENCOUNTER 2021-03-31 23:56 | Inpatient (IN) | payer OTHER, MEDICARE ==
--- OUTSIDE RECORDS SUMMARY | 2021-04-01 00:02 | XMS REPORT | Continuity of Care Document ---
:1940 Author Organization [facility] t Address [address] [place] [place] [address] Care Team Providers Name Role Phone Rudolph WINN Primary Care Physician Rudolph WINN Attending Clinician Prudencio Dale MD Attending Clinician MD RUDOLPH Attending Clinician Unavailable HANDY Attending Clinician Unavailable HANDY Attending Clinician Unavailable Michelle Begum Attending Clinician RUDOLPH Admitting Clinician Unavailable MD RUDOLPH Admitting Clinician Unavailable Michelle Begum Admitting Clinician Payers Payer Name Policy Type Policy Effective Date Expiration Date Sour ce Number MEDICAREMEDICARE PART [id number] 2004 Nam [place] Khadijah AND 00:00:00 [facility] [id number] 2003[place] [id number] 2005 [place] [id number] 00:00:00 Met coffman 2005-Aretha rcial Problems Condition Condition Condition Status Onset Resolution Last Treating Co mments Source Name Details Category Date Date Treatment Clinician Date Persistent Persistent Disease Active H bruce atrial atrial 3-18 [facility] fibrillati fibrillati 00:00: st on on 00 ISCHEMIC Diagnosis Active 2015-02-19 M emoria STROKE 2 08:33:00 l ISCHEMIC 00:00: Epifanio n STROKE 00 Active 11/23/2014 [facility] LFLT Diagnosis Active 2015-02-19 Mem oria TRANSFER#5 11-23 08:34:00 l 34 LFLT 00:00: [place] TRANSFER#5 00 34 Active 5 [facility] Encounter Encounter Problem Active Uni vers for for [place] of administ[place] administ[place] of tion of Physici COVID-19 COVID-19 ans vaccine vaccine Retention Problem Active 2017-06-17 [place] moria of urine, 02:45:15 l unspecifie Epifanio n d Retention of urine, unspecifie d Active Problem 06/17/2017 [facility] Hypertensi Problem Active 2017-06-17 emoria ve heart 02:45:15 l and [place] chronic Hypertensi kidney ve heart disease, and benign, chronic with heart kidney failure disease, and with benign, chronic with heart kidney failure disease and with stage I chronic through kidney stage IV, disease or stage I unspecifie through d stage IV, or unspecifie d Active Problem 06/17/2017 [facility] Depressive Problem Active 2017-06-17 emoria disorder, 02:45:15 l not [place] elsewhere Depressive classified disorder, not elsewhere classified Active Problem 06/17/2017 [facility] Urinary Problem Active 2017-06-17 Alek bethany tract 02:45:15 l infection, Urinary Her irvin site not tract specified infection, site not specified Active Problem 06/17/2017 [facility] Unspecifie Problem Active 2017-06-17 emoria d 02:45:15 l arthropath Epifanio n y, site Unspecifie unspecifie d d arthropath y, site unspecifie d Active Problem 06/17/2017 [facility] Frequency Problem Active 2017-06-17 Me moria of 02:45:15 l micturitio Epifanio n n Frequency of micturitio n Active Problem 06/17/2017 [facility] Morbid Problem Active 2017-06-17 Memor ia obesity 02:45:15 l Morbid [place] obesity Active Problem 06/17/2017 [facility] Female Problem Active 2017-06-17 Memor ia genuine 02:45:15 l stress Female Elia incontinen genuine ce stress incontinen ce Active Problem 7 [facility] Nonspecifi Problem Active 2017-06-17 emoria c abnormal 02:45:15 l electrocar Epifanio n diogram Nonspecifi (ECG) c abnormal (EKG) electrocar diogram (ECG) (EKG) Active Problem 06/17/2017 [facility] Palpitatio Problem Active 2017-06-17 M emoria ns 02:45:15 l Elia Palpitatio ns Active Problem 7 [facility] Other Problem Active 2017-06-17 Memor ia specified 02:45:15 l cardiac Other [place] dysrhythmi specified as cardiac dysrhythmi as Active Problem 7 [facility] Upper Problem Active 2017-06-17 Memor ia respirator 02:45:15 l y tract Upper [place] hypersensi respirator tivity y tract reaction, hypersensi site tivity unspecifie reaction, d site unspecifie d Active Problem 06/17/2017 [facility] Unspecifie Problem Active 2017-06-17 M emoria d 02:45:15 l transient [place] cerebral Unspecifie ischemia d transient cerebral ischemia Active Problem 06/17/2017 [facility] Personal Problem Active 2017-06-17 Mem oria history of 02:45:15 l fall Personal Epifanio n history of fall Active Problem 06/17/2017 [facility] Acute Problem Active 2017-06-17 Memor ia upper 02:45:15 l respirator Acute Sunni nn y upper infections respirator of y unspecifie infections d site of unspecifie d site Active Problem 06/17/2017 [facility] CVA Diagnosis Active 2015-02-19 Mem oria 08:33:00 l CVA Elia Active [facility] Gastroesop Problem Resolve 2014-11-28 Memoria hageal d 15:24:41 l reflux Elia disease Gastroesop (disorder) hageal reflux disease (disorder) Resolved Problem 11/28/2014 [facility] Hyperchole Problem Resolve 2014-11-28 Memoria sterolemia d 15:24:41 l (disorder) Epifanio n Hyperchole sterolemia (disorder) Resolved Problem 11/28/2014 [facility] Hyperlipid Problem Resolve 2014-11-28 Memoria emia d 15:24:41 l (disorder) Epifanio n Hyperlipid emia (disorder) Resolved Problem 11/28/2014 [facility] Hypertensi Problem Resolve 2014-11-28 Memoria ve d 15:24:41 l disorder, [place] systemic Hypertensi arterial ve (disorder) disorder, systemic arterial (disorder) Resolved Problem 11/28/2014 [facility] Hypothyroi Problem Resolve 2014-11-28 Memoria dism d 15:24:41 l (disorder) Epifanio n Hypothyroi dism (disorder) Resolved Problem 11/28/2014 [facility] Atrial Problem Active 2017-06-17 Memor ia fibrillati 02:45:15 l on Atrial [place] fibrillati on Active Problem 7 [facility] Personal Problem Active 2017-06-17 Mem oria history of 02:45:15 l transient Personal Her irvin ischemic history of attack transient [TIA], and ischemic cerebral attack infarction [TIA], and without cerebral residual infarction deficits without residual deficits Active Problem 06/17/2017 [facility] Palpitatio Problem Active 2017-06-17 M emoria ns 02:45:15 l Elia Palpitatio ns Active Problem 7 [facility] Transient Problem Active 2017-06-17 Me moria cerebral 02:45:15 l ischemic [place] attack, Transient unspecifie cerebral d ischemic attack, unspecifie d Active Problem 06/17/2017 [facility] Bradycardi Problem Active 2017-06-17 M emoria a, 02:45:15 l unspecifie Epifanio n d Bradycardi a, unspecifie d Active Problem 06/17/2017 [facility] Personal Problem Active 2017-06-17 Mem oria history of 02:45:15 l transient Personal Her irvin ischemic history of attack transient (TIA), and ischemic cerebral attack infarction (TIA), and without cerebral residual infarction deficits without residual deficits Active Problem 06/17/2017 [facility] History of Problem Active 2017-06-17 M emoria falling 02:45:15 l History [place] of falling Active Problem 06/17/2017 [facility] Abnormal Problem Active 2017-06-17 Mem oria electrocar 02:45:15 l diogram Abnormal Sunni nn [ECG] electrocar [EKG] diogram [ECG] [EKG] Active Problem 06/17/2017 [facility] Arthropath Problem Active 2017-06-17 M emoria y, 02:45:15 l unspecifie Epifanio n d Arthropath y, unspecifie d Active Problem 06/17/2017 [facility] Major Problem Active 2017-06-17 Memor ia depressive 02:45:15 l disorder, Major Epifanio n single depressive episode, disorder, unspecifie single d episode, unspecifie d Active Problem 06/17/2017 [facility] Chest Problem Active 2017-06-17 Memor ia pain, 02:45:15 l unspecifie Chest Sunni nn d pain, unspecifie d Active Problem 06/17/2017 [facility] Shortness Problem Active 2017-06-17 Me moria of breath 02:45:15 l [place] Shortness of breath Active Problem 06/17/2017 [facility] Constipati Problem Active 2017-06-17 M emoria on, 02:45:15 l unspecifie Epifanio n d Constipati on, unspecifie d Active Problem 06/17/2017 [facility] Hypothyroi Problem Active 2017-06-17 M emoria dism, 02:45:15 l unspecifie Epifanio n d Hypothyroi dism, unspecifie d Active Problem 06/17/2017 [facility] Hyperlipid Problem Active 2017-06-17 emoria emia, 02:45:15 l unspecifie Epifanio n d Hyperlipid emia, unspecifie d Active Problem 06/17/2017 [facility] Chronic Problem Active 2017-06-17 Alek bethany kidney 02:45:15 l disease, Chronic Sunni nn unspecifie kidney d disease, unspecifie d Active Problem 06/17/2017 [facility] Insomnia, Problem Active 2017-06-17 Me moria unspecifie 02:45:15 l d Elia Insomnia, unspecifie d Active Problem 06/17/2017 [facility] Nonrheumat Problem Active 2017-06-17 M emoria ic mitral 02:45:15 l (valve) Elia insufficie Nonrheumat ncy ic mitral (valve) insufficie ncy Active Problem 06/17/2017 [facility] Paroxysmal Problem Active 2017-06-17 M emoria atrial 02:45:15 l fibrillati Epifanio n on Paroxysmal atrial fibrillati on Active Problem 7 [facility] 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:45:15 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 Active Problem 06/17/2017 [facility] Chronic Problem Active 2017-06-17 Alek bethany kidney 02:45:15 l disease, Chronic Sunni nn Stage III kidney (moderate) disease, Stage III (moderate) Active Problem 06/17/2017 [facility] Congestive Problem Active 2017-06-17 M emoria heart 02:45:15 l failure, Elia unspecifie Congestive d heart failure, unspecifie d Active Problem 06/17/2017 [facility] Hypertensi Problem Active 2017-06-17 M emoria on 02:45:15 l essential [place] benign Hypertensi on essential benign Active Problem 06/17/2017 [facility] 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:45:15 l stenosis [place] of carotid Occlusion artery and without stenosis mention of of carotid cerebral artery infarction without mention of cerebral infarction Active Problem 06/17/2017 [facility] Insomnia, Problem Active 2017-06-17 Me moria unspecifie 02:45:15 l d Elia Insomnia, unspecifie d Active Problem 06/17/2017 [facility] Mitral Problem Active 2017-06-17 Memor ia valve 02:45:15 l disorders Mitral Sunni nn valve disorders Active Problem 06/17/2017 [facility] Other and Problem Active 2017-06-17 Me moria unspecifie 02:45:15 l d Other Elia hyperlipid and emia unspecifie d hyperlipid emia Active Problem 06/17/2017 [facility] Unspecifie Problem Active 2017-06-17 M emoria d 02:45:15 l hypothyroi Epifanio n dism Unspecifie d hypothyroi dism Active Problem 06/17/2017 [facility] Obesity, Problem Active 2017-06-17 Mem oria unspecifie 02:45:15 l d Obesity, Epifanio n unspecifie d Active Problem 06/17/2017 [facility] Other Problem Active 2017-06-17 Memor ia malaise 02:45:15 l and Other [place] fatigue malaise and fatigue Active Problem 06/17/2017 [facility] Shortness Problem Active 2017-06-17 Me moria of breath 02:45:15 l [place] Shortness of breath Active Problem 06/17/2017 [facility] Chest Problem Active 2017-06-17 Memor ia pain, 02:45:15 l unspecifie Chest Sunni nn d pain, unspecifie d Active Problem 06/17/2017 [facility] Chronic Problem Active 2017-06-17 Alek bethany diastolic 02:45:15 l (congestiv Chronic Her irvin e) heart diastolic failure (congestiv e) heart failure Active Problem 06/17/2017 [facility] Unspecifie Problem Active 2017-06-17 M emoria d 02:45:15 l constipati Epifanio n on Unspecifie d constipati on Active Problem 7 [facility] Hypertensi Diagnosis Active 2017-06-17 Memoria ve heart 02:45:15 l and [place] chronic Hypertensi kidney ve heart disease and with heart chronic failure kidney and stage disease 1 through with heart stage 4 failure chronic and stage kidney 1 through disease, stage 4 or chronic unspecifie kidney d chronic disease, kidney or disease unspecifie d chronic kidney disease Active Diagnosis 06/17/2017 [facility] Impaired Problem Active 2017-06-17 Mem oria fasting 02:45:15 l blood Impaired Epifanio n sugar fasting blood sugar Active Problem 06/17/2017 [facility] Overactive Problem Active 2017-06-17 emoria bladder 02:45:15 l [place] Overactive bladder Active Problem 06/17/2017 [facility] Incontinen Problem Active 2017-06-17 M emoria ce without 02:45:15 l sensory [place] awareness Incontinen ce without sensory awareness Active Problem 06/17/2017 [facility] Encounter Problem Active 2017-06-17 Me moria for 02:45:15 l screening [place] for Encounter diabetes for mellitus screening for diabetes mellitus Active Problem 06/17/2017 [facility] History of History of Problem Resolve Univers mitral mitral d ity of valve valve [place] prolapse prolapse Physic i ans History of History of Problem Resolve Univers hypothyroi hypothyroi d it y of dism dism [place] Physici ans History of History of Problem Resolve Univers 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 on Physici ans Renal Renal Problem Active Univers disease [...] [place] Physici ans Allergies, Adverse Reactions, Alerts Allergy Allergy Status Severity Reaction(s) Onset Inactive Treating Comm ents Source Name Type Date Date Clinician Hydralaz Propensi Active Swelling [place] in[place] ty to 3-18 [facility] adverse 00:00: st reaction 00 s to drug Pentobar Propensi Active Other (See Pt can Ho chris bital ty to Comments) 18 not [facility] Sodium adverse 00:00: remember st reaction 00 it s to happens drug about 60 yrs ago Maycol Propensi Active Anaphylaxis, Ho chris Inhibito ty to Shortness Of -18 Me thodi rs adverse Breath 00:00: st reaction 00 s to drug Other Propensi Active Itching Patient [place] ty to 3-15 states [facility] adverse 00:00: she is st reaction 00 allergic s to a blood pressure medicatio n that caused itching but she does not know the name. Nembutal Allergy Active Univers to drug ity of (finding [place] ) Physici ans Family History Family Member Diagnosis Comments Start Date Stop Date Source Mother Family history of Univers ity of [place] pancreatic cancer Physici ans Father Family history of [facility] [place] cardiac disorder Physicia ns Social History Social Habit Start Date Stop Date Quantity Comments Source Tobacco use and 2021-01-08 2021-01-08 Never used Kyler Palacios ethodist exposure 00:00:00 00:00:00 Smoking 2016-09-27 2016-09-27 Heidy Moeller nn 00:00:00 00:00:00 Sex [birth year] [facility] ethodist 00:00:00 00:00:00 Smoking Status Start Date Stop Date Source Former smoker 2021-01-08 00:00:00 2021-01-08 00:00:00 Kyler Lilly Social History Heidy Rodrigez Medications Ordered Filled Start Stop Current Ordering Indication Dosage Frequency Signature Comments Components Source Medication Medication Date Date Medication? Clinician (SIG) Name Name levothyroxi Yes 112ug QD Take 112 [place] ne 3-21 mcg by Methodi (SYNTHROID) 14:14: mouth st 112 mcg 45 daily. tablet doxazosin Yes Take by [place] (CARDURA) 4 3-21 mouth. Method i MG tablet 14:14: Taking 1/2 st 45 tablet in the morning and 1 tablet in the evening losartan 0 Yes 50mg Q.5D Take 50 mg Chanda ston (COZAAR) 50 3-21 by mouth 2 Me thodi MG tablet 14:14: (two) st 45 times a day. diltiazem 0 Yes 120mg QD Take 120 Chanda ston CD 3-21 mg by Methodi (CardIZEM 14:14: mouth st CD) 120 MG 45 daily. 24 hr capsule apixaban 0 Yes 5mg Q.5D Take 5 mg [place] (ELIQUIS) 5 3-21 by mouth 2 Me thodi mg tablet 14:14: (two) st 45 times a day. furosemide 0 Yes 20mg Q.5D Take 20 mg [place] (LASIX) 20 3-21 by mouth 2 Met hodi mg tablet 14:14: (two) st 45 times a day. atenoloL 0 Yes 25mg QD Take 25 mg Chanda ston (TENORMIN) 3-21 by mouth Metho di 50 MG 14:14: daily. st tablet 45 gabapentin 0 Yes 200mg Q.[id number] Take 200 [place] (NEURONTIN) 3-21 [id number] mg by M ethodi 100 mg 14:14: 3D mouth 3 st capsule 45 (three) times a day. icosapent 0 Yes 1g Q.5D Take 1 g [place] ethyL 3-21 by mouth 2 Methodi (Vascepa) 1 14:14: (two) st gram 45 times a capsule day with meals. liothyronin 0 Yes 10ug QD Take 10 Chanda ston e (CYTOMEL) 3-21 mcg by Method i 5 MCG 14:14: mouth st tablet 45 daily. aspirin 2020-0 Yes 81mg QD Take 81 mg [place] (ECOTRIN) 3-21 by mouth Method i 81 MG 14:14: daily. st enteric 45 coated tablet clonIDINE 2020- No .1mg Take 0.1 [place]anda ston (CATAPRES) 01-10 03-21 mg by Methodi 0.1 MG 09:58: 00:[address] tablet 38 :00 needed for high blood pressure (take if sbp is 160 or greater). omeprazole 2020- No 20mg QD Take 20 mg Chá[place] (PriLOSEC) 01-1021 by mouth Meth opal 20 MG 09:58: 00:[address] capsule 38 :00 clonIDINE Yes .1mg Q.5D Take 1 [place] (CATAPRES) 01-10 tablet Methodi 0.1 MG 00:00: (0.[address] tablet 00 total) by mouth 2 (two) times a day. omeprazole Yes 20mg Q.5D Take 1 [place] (PriLOSEC) 01-10 capsule Method i 20 MG 00:00: ([address] capsule 00 total) by mouth 2 (two) times a day. dofetilide 2020- Yes 250ug Q.5D Take 1 [place]anda st[place] (TIKOSYN) 01-10-19 capsule Method i 250 MCG 00:00: 23:59 ([address] capsule 00 :00 total) by mouth every 12 (twelve) hours for 90 days. alum-mag 2020- No 30mL Q.[id number] Take 30 mL [place]vez hydroxide-s 01-10 04-20 [id number] by mouth 3 Methodi imeth 00:00: 23:59 3D (three) st (MAALOX 00 :00 times a PLUS) day for 30 200-200-20 days. mg/5 mL suspension amLODIPine amLODIPine 2019-0 Yes MUNACHI 1 QD TAKE 1 Univers Besylate 5 Besylate 5 9-25 OKPALA TABLET ity of MG Oral MG Oral 00:00: COGNOS LEAD DAILY. [place] Tablet Tablet 00 Physici ans Gabapentin Gabapentin 2019- Yes Take 1 Univers 100 MG Oral 100 MG Oral 9-23 tablet AM ity of Capsule Capsule 00:00: , 200 in Alexandre as 00 the Physici afternoon, ans 200 in the evening clonazePAM clonazePAM 2019-0 Yes 1 QD TAKE 1 Univers 1 MG Oral 1 MG Oral 9-23 TABLET ity of Tablet Tablet 00:00: Daily PRN [place] 00 BP over Physici 160 ans Atenolol 50 Atenolol 50 2017-10 Yes .5 QD TAKE 0.5 Univers MG Oral MG Oral 0-17 TABLET ity of Tablet Tablet 00:00: DAILY [place] 00 Physici ans Methocarbam Methocarbam 2017-10 Yes 1 Q0.5D TAKE 1 Univers ol 500 MG ol 500 MG 0-17 TABLET ity of Oral Tablet Oral Tablet 00:00: TWICE [place] 00 DAILY Physici ans Symbicort Symbicort 2017-10 Yes USE U nivers 160-4.5 160-4.5 0-17 DIRECTED. ity of MCG/ACT MCG/ACT 00:00: [place] Inhalation Inhalation 00 Phy sici Aerosol Aerosol ans Omeprazole Omeprazole 2017-10 Yes QD TAKE [...] of MG Oral MG Oral 00:00: DAILY. [place] Tablet Tablet 00 Physici ans Levothyroxi Levothyroxi 2017-10 Yes 1 QD TAKE 1 Univers ne Sodium ne Sodium 0-17 TABLET ity of 112 MCG 112 MCG 00:00: DAILY. [place] Oral Tablet Oral Tablet 00 P hysici ans Eliquis Yes Melissa Salmon 1 tablet M emoria 8-17 l 00:00: [place] Edarbyclor Edarbyclor Yes MUNACHI 1 QD TAKE 1 Univers 40-25 MG 40-25 MG 4-20 OKPALA TABLET BY ity of Oral Tablet Oral Tablet 00:00: COG[place] LEAD MOUTH ONCE [place] 00 DAILY Physici ans Edarbyclor Yes Melissa Ali 1 tablet Memoria 3-28 l 00:00: Elia 00 Edarbyclor Yes Melissa Ali 1 tablet Memoria 3-13 l 00:00: [place] Tikosyn No Melissa Salmon TAKE ONE M emoria 3-01 CAPSULE BY l 03:45: MOUTH [place] 56 TWICE A DAY Dofetilide 2016-0 Yes Melissa Salmon 1 capsule Memoria 2-28 l 00:00: [place] 00 Doxazosin 2015-10 No Melissa Salmon TAKE ONE Memoria Mesylate 1-19 TABLET BY l 03:48: MOUTH [place] 47 DAILY Cipro 2015-0 Yes Bennett Salmon 1 tablet Me moria 6-24 l 00:00: Elia 00 Pravastatin Pravastatin 2014-0 Yes MUNACHI 1 QD TAKE 1 Univers Sodium 40 Sodium 40 7-31 OKPALA TABLET i ty of MG Oral MG Oral 00:00: COG[place] LEAD DAILY. [place] Tablet Tablet 00 Physici ans Viteyes Viteyes Yes MUNACHI 1 QD TAKE 1 Un teresa Complete Complete 3-17 OKPALA CAPSULE it y of Oral Oral 00:00: COG[place] LEAD DAILY. [place] Capsule Capsule 00 Physici ans Liothyronin Liothyronin Yes MUNACHI 1 QD TAKE 1 Univers e Sodium 5 e Sodium 5 3-17 OKPALA TABLET ity of MCG Oral MCG Oral 00:00: [place] LEAD DAILY. Alexandre as Tablet Tablet 00 Physici ans Doxazosin Doxazosin Yes MUNACHI 1 Q0.5D TAKE 1 Univers Mesylate 4 Mesylate 4 3-17 OKPALA TABLET ity of MG Oral MG Oral 00:00: [place] LEAD TWICE [place] Tablet Tablet 00 DAILY Physici ans Warfarin No Notes: Char 2-04 Nurse to l 18:03: ensure [place] 00 documentat ion of patient education per anticoagul ation policy. Avoid large intake of vitamin-K containing foods diet. (Same As: Coumadin) valsartan Yes 40 mg = 1 Mem oria 40 mg oral 2-04 tab, PO, l tablet 17:52: Q12H, # 60 Sunni nn 00 tab, 3 Refill(s) atorvastati Yes 40 mg = 1 M emoria n 40 mg 2-04 tab, PO, l oral tablet 17:52: Bedtime, # [place] 00 30 tab, 3 Refill(s) clopidogrel Yes 75 mg = 1 M emoria 75 mg oral 2-04 tab, PO, l tablet 17:52: Daily, # Elia 00 30 tab, 0 Refill(s) warfarin 5 Yes 5 mg, PO, Me moria mg oral 2-04 Daily, # 2 l tablet 17:52: tab, 0 Refill(s) Atenolol 25 Yes 12.5 mg = M emoria MG Oral 2-04 0.5 tab, l Tablet 17:52: PO, Daily, Sunni 00 0 Refill(s) valsartan No Notes: Memori a 2- Same as l 15:00: Diovan Protonix No Notes: Memoria 2-03 Tablet l 22:30: should not be chewed or crushed. (Same as: Protonix) Atenolol No Notes: Memoria 2- (Same l 15:00: As:Tenormi n) valsartan No 320 mg, Memor ia 11-25 Route: PO, l 15:00: Drug form: TAB, Daily, Dosing Weight 114.318, kg, Start date: 11/25/14 9:00:00, Duration: 30 day, Stop date: 12/24/14 9:00:00 Thyroxine No Notes: Memori a 2- Take 1 l 12:30: hour before or 2 hours after meal; Enteral feeds may interefere with the absorption of this medication . (Same as:Levothr oid, Synthroid) heparin, No Notes: Memoria porcine 2-03 porcine l 04:00: heparin Plavix No Notes: Memoria 2-03 (Same As: l 04:00: Plavix) Tylenol No Notes: Do Memor ia 2- not exceed l 03:16: 4 gm/day. (Same as: Tylenol) atorvastati No Notes: Alek bethany n 2-03 (Same as: l 03:00: Lipitor) Bupropion No Notes: (Do Me moria 2 not crush) l 23:00: (Same As: Wellbutrin SR) valsartan No 40 mg, Memori a 2 Route: PO, l 23:00: BID, Dosing Weight 114.318, kg, Start date: 11/24/14 17:00:00, Duration: 30 day, Stop date: 12/24/14 9:00:00 Triiodothyr No Notes: Alek bethany onine 11-24 (Same as: l 21:35: Cytomel) Atenolol No 50 mg = Memori a 100 MG Oral 02 0.5 tab, l Tablet 20:47: PO, BID, [...] PO, l oral tablet 20:47: Daily, # He [place] 00 60 tab, 0 Refill(s) Potassium No 20 mEq = 1 Me moria Chloride 20 2-02 tab, PO, l MEQ 20:47: Daily, 0 [place] Extended 00 Refill(s) Release Tablet omeprazole Yes 40 mg = 1 Me moria 40 mg oral 2-02 cap, PO, l delayed 20:47: Daily, # Epifanio n release 00 30 cap, 0 capsule Refill(s) Metolazone No 5 mg = 1 Mem oria 5 MG Oral 2-02 tab, PO, l Tablet 20:47: Daily, # [place] 00 30 tab, 0 Refill(s) liothyronin Yes 10 Memori a e 5 mcg 2-02 microgram l oral tablet 20:47: = 2 tab, He [place] 00 PO, QAM, # 30 tab, 0 Refill(s) Fenofibrate No 160 mg = 1 Memoria 160 MG Oral 2-02 tab, PO, l Tablet 20:47: Daily, # Leia 00 30 tab, 0 Refill(s) Zolpidem Yes [...] Albuterol No 2 puff, Memor ia 0.09 -02 INHALATION l MG/ACTUAT 20:47: , Q6H, as Her irvin Metered 00 needed for Dose wheezing, Inhaler # 17 gm, 0 [Ventolin] Refill(s) levothyroxi Yes 100 Memori a ne 100 mcg -02 microgram l (0.1 mg) 20:47: = 1 tab, Sunni nn oral tablet 00 PO, QAM, # 30 tab, 0 Refill(s) doxazosin 4 Yes 4 mg = 1 Me moria mg oral 2-02 tab, PO, l tablet 20:47: Daily, # [place] 00 30 tab, 0 Refill(s) valsartan No 320 mg = 1 Me moria 320 mg oral 2-02 tab, PO, l tablet 20:47: Daily, # Elia 00 30 tab, 0 Refill(s) Triiodothyr No Notes: Alek bethany onine 11-24 (Same as: l 20:09: Cytomel) Reglan No Notes: Memoria 11-24 (Same as: l 17:44: Reglan) Magnesium No [...] polysacchar Saline No Notes: Memoria Flush 0.9% 2- (Same as: l 15:00: BD [place] 00 Posiflush) Versed No Notes: Memoria 2-02 (Same as: l 14:31: Versed) [place] 00 Pravastatin No 40 mg = 1 M emoria Sodium 40 2-02 tab, PO, l MG Oral 13:59: Bedtime, # Herm alexandra Tablet 00 30 tab, 0 [Pravachol] Refill(s) aspirin No 0 Memoria 2-02 Refill(s) l 13:59: [place] 00 Fenofibrate No 160 mg = 1 Memoria 160 MG Oral 2-02 tab, PO, l Tablet 13:59: Daily, # Elia 00 30 tab, 0 Refill(s) Atenolol No 0 Memoria 2-02 Refill(s) l 13:59: [place] 00 valsartan No 320 mg = 1 Me moria 320 mg oral 2-02 tab, PO, l tablet 13:59: Daily, # Elia 00 30 tab, 0 Refill(s) Potassium No 0 Memoria Chloride 20 2-02 Refill(s) l MEQ 13:59: [place] Extended 00 Release Tablet Metolazone No 5 mg = 1 Mem oria 5 MG Oral 2-02 tab, PO, l Tablet 13:59: Daily, # [place] 00 30 tab, 0 Refill(s) Furosemide No [...] No 0 Memori a one 25 mg 11-24 Refill(s) l oral tablet 13:59: Epifanio n 00 Zofran No Notes: Memoria - (Same as: l 13:08: Zofran) Tylenol No Notes: Do Memor ia 11-24 not exceed l 06:48: 4 gm/day. (Same as: Tylenol) Sodium No 1,000 mL, Memori a Chloride 11-24 Rate: 75 l 0.154 05:06: ml/hr, MEQ/ML 00 Infuse Injectable over: 13.3 Solution hr, Route: IV, Total Volume: 1,000, Start date: 11/23/14 23:06:00, Duration: 30 day, Stop date: 12/23/14 23:05:00 Saline No Notes: Memoria Flush 0.9% 11-24 (Same as: l 04:58: BD Posiflush) Acetaminoph No Notes: Do M emoria en 11-24 not exceed l 04:58: 4 gm/day. (Same as: Tylenol) Dofetilide Dofetilide Yes MUNACHI 1 capsule Univers 500 MCG 500 MCG OKPALA daily ity of Oral Oral COGNOS LEAD [place] Capsule Capsule Physici ans Vitamin D-3 Vitamin D-3 Yes 1 tablet Univers CAPS CAPS daily ity of [place] [facility] Vascepa 1 Vascepa 1 Yes MUNACHI 1 capsule Univers GM Oral GM Oral OKPALA daily ity of Capsule Capsule COGNOS LEAD [place] [facility] Immunizations Ordered Immunization Filled Immunization Date Status Commen ts Source Name Name 1DayMakeover 2020-11-28 Completed Universit y of COVID-19 Vacc 30 14:02:00 [place] [facility] MCG/0.3ML Intramuscular Suspension Vital Signs Vital Name Observation Time Observation Value Comments Source Systolic blood 2021-01-10 164 mm[Hg] [facility] pressure 11:30:33 [facility] Diastolic blood 2021-01-10 69 mm[Hg] [place] pressure 11:30:33 [facility] Heart rate 2021-01-10 53 /min [facility] 11:30:33 [facility] Body temperature 2021-01-10 36.06 [place] [facility] 11:30:33 [facility] Respiratory rate 2021-01-10 17 /min [facility] 11:30:33 [facility] Oxygen saturation 2021-01-10 93 /min [place] in Arterial blood 11:30:33 [facility] by Pulse oximetry Body weight 2021-01-10 107.049 kg [facility] 05:40:00 [facility] BMI 2021-01-10 42.48 kg/m2 [place] 05:40:00 [facility] Body height 2021-01-07 158.8 cm [facility] 06:32:00 [facility] Systolic blood 2020-07-17 146 mm[Hg] Location: [facility]; [facility] 11:51:00 Position: [place] [facility] Standing Diastolic blood 2020-07-17 67 mm[Hg] Location: [facility]; [facility] 11:51:00 Position: [place] [facility] Standing Heart Rate 2020-07-17 65 /min [facility] 11:51:00 [place] [facility] BP Systolic 2019-07-23 152 mm[Hg] [facility] 11:51:[facility] Position: [place] [facility] Sitting BP Diastolic 2019-07-23 76 mm[Hg] [facility] 11:51:[facility] Position: [place] [facility] Sitting Height 2019-07-23 62 [in_us] [facility] 11:51:00 [place] [facility] Weight 2019-07-23 248.5 [lb_av] [facility] 11:51:00 [place] [facility] Body Mass Index 2019-07-23 45.45 kg/m2 University o f Calculated 11:51:00 [place] [facility] Heart Rate 2019-07-23 66 /min Location: [facility] 11:51:00 Brachial [place] [facility] Artery; Respitory Rate 2014-11-26 [facility] alexandra 17:54:00 Systolic (mm Hg) 2014-11-26 [facility] rmann 17:54:00 Diastolic (mm Hg) 2014-11-26 [facility] ermann 17:54:00 Heart Rate 2014-11-26 Heidy Kimblean n 17:54:00 Temperature Oral 2014-11-26 97.5 F [facility] rmann (F) 17:54:00 Temperature Oral 2014-11-26 97.5 F [facility] rmann (F) 14:10:00 Heart Rate 2014-11-26 [facility] Epifanio n 14:10:00 Diastolic (mm Hg) 2014-11-26 [facility] 14:10:00 Respitory Rate 2014-11-26 [facility] alexandra 14:10:00 Systolic (mm Hg) 2014-11-26 [facility] rmann 14:10:00 Respitory Rate 2014-11-26 [facility] alexandra 12:09:00 Systolic (mm Hg) 2014-11-26 [facility] rmann 12:00:00 Diastolic (mm Hg) 2014-11-26 [facility] ermann 12:00:00 Heart Rate 2014-11-24 [facility] Epifanio n 15:45:00 Weight 2014-11-24 [facility] Epifanio n 06:47:00 BMI Calculated 2014-11-24 [facility] alexandra 06:47:00 Height 2014-11-24 [facility] 06:[facility] Procedures Procedure Date / Time Performing Clinician Source Performed COMPREHENSIVE METABOLIC 2021-01-10 05:30:00 Paz Galdamez [facility] PANEL MAGNESIUM LEVEL 2021-01-10 05:30:00 Paz Galdamez [facility] ESTIMATED GFR 2021-01-10 05:30:00 Paz Galdamez [facility] odist ECG 12-LEAD 2021-01-10 04:31:06 Paz Galdamez Meth odist ECG 12-LEAD 2021-01-09 23:36:03 Paz Galdamez Meth odist ECG 12-LEAD 2021-01-09 12:30:47 Paz Galdamez Meth odist HC COMPLETE BLD COUNT 2021-01-09 05:00:00 Almas Bridges [facility] W/AUTO DIFF ECG 12-LEAD 2021-01-09 04:01:06 Paz Galdamez odist BASIC METABOLIC PANEL 2021-01-09 04:00:00 Paz Galdamez [facility] MAGNESIUM LEVEL 2021-01-09 04:00:00 Paz Galdamez Meth odist ESTIMATED GFR 2021-01-09 04:00:00 Paz Galdamez Meth odist ECG 12-LEAD 2021-01-08 22:46:02 Paz Galdamez Meth odist ECG 12-LEAD 2021-01-08 10:19:48 Paz Galdamez Meth odist HC COMPLETE BLD COUNT 2021-01-08 04:51:00 Paz Galdamez [facility] W/AUTO DIFF BASIC METABOLIC PANEL 2021-01-08 04:51:00 Paz Galdamez B NATRIURETIC PEPTIDE 2021-01-08 04:51:00 Paz Galdamez [facility] MAGNESIUM LEVEL 2021-01-08 04:51:00 Paz Galdamez odist ESTIMATED GFR 2021-01-08 04:51:00 Paz Galdamez odist ECG 12-LEAD 2021-01-07 22:51:37 Karma Willard Me thodist Meagan BASIC METABOLIC PANEL 2021-01-07 15:21:00 Paz Galdamez [facility] MAGNESIUM LEVEL 2021-01-07 15:21:00 Paz Galdamez odist ESTIMATED GFR 2021-01-07 15:21:00 Paz Galdamez odist EP COMPLETE EP STUDY W 2021-01-07 11:53:24 Paz Galdamez on [facility] ABLATION PULMONARY VEIN ACTIVATED CLOTTING TIME 2021-01-07 11:51:00 Paz Galdamez [facility] ECG 12-LEAD 2021-01-07 11:46:46 Paz Galdamez odist ACTIVATED CLOTTING TIME 2021-01-07 11:23:00 Paz Galdamez [facility] ACTIVATED CLOTTING TIME 2021-01-07 10:40:00 Paz Galdamez [facility] ACTIVATED CLOTTING TIME 2021-01-07 09:41:00 Paz Galdamez [facility] ACTIVATED CLOTTING TIME 2021-01-07 09:13:00 Paz Galdamez [facility] ARTERIAL LINE 2021-01-07 08:20:30 Joe Torres odist Josafat NM AN ELECTIVE 2021-01-07 08:08:00 Joe Torres odist ENDOTRACHEAL AIRWAY Josafat ABO AND RH CONFIRMATION 2021-01-07 07:44:00 Paz Galdamez [facility] TYPE AND SCREEN 2021-01-07 07:05:00 Paz Galdamez odist ECG PRE/POST OP 2021-01-07 05:21:57 Paz Galdamez odist COMPREHENSIVE METABOLIC 2021-01-01 12:55:00 Paz Galdamez PANEL HC COMPLETE BLD COUNT 2021-01-01 12:55:00 Paz Galdamez W/AUTO DIFF MAGNESIUM LEVEL 2021-01-01 12:55:00 Paz Galdamez PROTHROMBIN TIME WITH INR 2021-01-01 12:55:00 Paz Galdamez ESTIMATED GFR 2021-01-01 12:55:00 Paz Galdamez COVID-19 QUALITATIVE PCR 2021-01-01 12:27:00 Paz Galdamez [facility] Physicians History of Bladder Surgery [facility] Physicians History of Neuroplasty [facility] Decompression Median Nerve Physi cians At Carpal Tunnel History of Esophagogastric [facility] Fundoplasty [facility] Fundoplication History of Knee Surgery [facility] Right Physicians Knee replacement [facility] Epifanio Plan of Care Planned Activity Planned Date Details Comments Source Future Scheduled 2021-05-23 INFLUENZA VACCINE Jamshid jimenez [facility] Test 00:00:00 [code = INFLUENZA VACCINE] Future Scheduled 2020-12-19 COVID-19 VACCINE (2 - Ho chris [facility] Test 00:00:00 Pfizer 2-dose series) [code = COVID-19 VACCINE (2 - Pfizer 2-dose series)] Future Scheduled 1989 SHINGLES VACCINES (#1) H oubarbara [facility] Test 00:00:00 [code = SHINGLES VACCINES (#1)] Future Scheduled 1946 65+ PNEUMOCOCCAL Chávez [facility] Test 00:00:00 VACCINE (1 of 4 - PCV13) [code = 65+ PNEUMOCOCCAL VACCINE (1 of 4 - PCV13)] Encounters Start End Encounter Admission Attending Care Care Encounter Source Date/Time Date/Time Type Type Clinicians Facility Department ID 2021-01-07 2021-01-10 Inpatient PAZ GALDAMEZ [facility] [id number] [place] 00:00:00 00:00:[address] 2021-01-01 2021-01-01 Outpatient PAZ GALDAMEZ [facility] [id number] [place] 00:00:00 00:00:[address] 2020-07-17 2020-07-17 Appointmen HANDY BLUE Neurology - [id number] Univers 11:30:00 11:30:00 t; LEO MURRELL, [place] it y of [facility] Physici ans 2019-07-23 2019-07-23 Appointmen [facility] BLUE Neurology - [id number] Univers 11:30:00 11:30:00 t; LEO MURRELL, [place] it y of [facility] ans 2018-08-08 2018-08-08 Appointmen HANDY BLUE [facility] [id number] Univers 11:30:00 11:30:00 t; LEO MURRELL, it y of [facility] Physici ans 2017-08-08 2017-08-08 Appointmen BLUE MURRELL UTP [id number] Univers 11:30:00 11:30:00 t; LEXBALJEETKhadijah NERYGI, ART STUDIO TEACHER ity of [place], [place] ART STUDIO TEACHER Physici ans 2017-06-16 2017-06-16 Outpatient Cardiolog Cardiology [id number] Memoria 12:43:00 12:43:00 y Consultants angel jimenez 2017-06-08 2017-06-08 Outpatient Cardiolog Cardiology [id number] Memoria 15:30:00 15:30:00 y Consultants angel jimenez 2017-02-03 2017-02-03 Outpatient Cardiolog Cardiology [id number] Mem[facility] 11:44:00 11:44:00 y Consultants angel jimenez 2017-01-17 2017-01-17 Outpatient Cardiolog Cardiology [id number] Memoria 09:18:00 09:18:00 y Consultants angel jimenez 2016-12-20 2016-12-20 Outpatient [facility] [id number] Memoria 09:57:00 09:57:00 Cardiolog Cardiology l y Consultants Lamin Live 2016-09-09 2016-09-09 Outpatient [facility] [id number] Memoria 15:06:00 15:06:00 Cardiolog Cardiology l y Consultants Lamin Live 2016-04-15 2016-04-15 Outpatient [facility] [id number] Memoria 14:19:00 14:19:00 Cardiolog Cardiology l y Consultants Lamin Cooknorma 2016-04-15 2016-04-15 Outpatient [facility] [id number] Memoria 14:11:00 14:11:00 Cardiolog Cardiology l y Consultants Lamin morris Consultnorma 2016-03-11 2016-03-11 Outpatient [facility] [id number] Memoria 13:22:00 13:22:00 Cardiolog Cardiology l y Consultants Lamin morris Consultan 2016-01-29 2016-01-29 Outpatient [facility] [id number] Memoria 14:05:00 14:05:00 Cardiolog Cardiology l y Consultants Lamin morris Consultnorma 2014-11-23 2014-11-26 Outpatient Begum, [facility] [id number] 22:23:00 16:46:00 Serina 67 Michelle Results Test Description Test Time Test Comments Results Result Comments Source Activated clotting time 2021-01-11 08:55:38 Test Item Value Reference Range Interpretation Comme nts Activated clotting time (test 128 See_Comment Meter ID: [id number] ID: code = [id number]) Brian Diaz [Automated message] The system Bozuk[employer] generated this result transmit elly reference range: 96 - 152 sec. T he reference range was not used to int erpret this result as normal/abnormal . Kyler Blankenship 12 [id number] 10:56:42 Test Item Value Reference Range Interpretation Comments Ventricular rate (test 61 code = 253) Atrial rate (test code = 61 255) NM interval (test code = 260 266) QRSD interval (test code 88 = 260) QT interval (test code = 472 264) QTC interval (test code 475 = 265) P axis 1 (test code = 71 267) QRS axis 1 (test code = 39 268) T wave axis (test code = 45 270) EKG impression (test Sinus rhythm with 1st code = 273) degree AV block-Otherwise normal ECG-- Kyler Blankenship Pre/Post [id number] 21:40:27 Test Item Value Reference Range Interpretation Comments Ventricular rate (test 59 code = 253) Atrial rate (test code 288 = 255) QRSD interval (test 86 code = 260) QT interval (test code 444 = 264) QTC interval (test 439 code = 265) QRS axis 1 (test code 46 = 268) T wave axis (test code 22 = 270) EKG impression (test Atrial fibrillation code = 273) with variable AV block-Abnormal ECG-No previous ECGs available-Electronicall y Signed By Brent Latham MD ([id number]) on 01/08/2021 9:40:23 PM [facility] [id number] 14:54:15 ELECTROPHYSIOLOGY SERVICE OPERATIVE REPORT PREPROCEDURE DIAGNOSES:1. Persistent atrial fibrillation2. COPD3. Asthma4. HTN5. HLD6. Obesity7. History of CVA8. History of cardioversion POSTPROCEDURE DIAGNOSIS:1. Status post successful catheter ablation of atrial fibrillation via pulmonary vein isolation.2. Posterior wall isolation3. Status post successful catheter ablation of atrial tachycardia4. Status post successful catheter ablation of peritricuspidean atrial flutter5. Successful direct synchronized cardioversion TITLE OF PROCEDURES:1. Complete electrophysiologic study.2. Catheter ablation of atrial fibrillation via pulmonary vein isolation.3. Stimulation after drug infusion.4. 3D electro-anatomic mapping.5. Transseptal puncture.6. Intracardiac echocardiography.7. Invasive arterial blood pressure monitoring, LA pressure 28.8. Coronary Sinus pacing and mapping9. Posterior wall isolation with roof line and inferior line10. Ablation of complex . Ablation of atrial urszlkhhcml74. Ablation of CTI line13. Direct synchronized cardioversion ATTENDING SURGEON: Dr Paz Galdamez ASSISTANTS: Dr Georgi Mayes ANESTHESIA: General endotracheal per attending anesthesiologist INDICATIONS:The patient is a 80 y.o. female with history of persistent atrial fibrillation, cardioversion, HTN, HLD, Obesity and COPD referred for electrophysiologic study and catheter ablation of atrial fibrillation. DOCUMENTATION OF INFORMED CONSENT:Prior to the procedure, I had spoken extensively with the patient regarding the risks, benefits, and alternatives to catheter ablation of atrial fibrillation. The risks discussed included, but were not limited to the risks of , bleeding, perforation, infection, tamponade, atrial-esophageal fistula, heart failure, pulmonary vein stenosis, and recurrent arrhythmias. They asked appropriate questions and these were fully answered and they wished to proceed. DETAILS:After written informed consent was obtained from the patient in the fasting, nonsedated state, the patient was brought to the cardiac catheterization laboratory and was anesthetized as above. Vascular access was now obtained using modified Seldinger technique and guided by ultrasonography as follows: Right femoral vein:1. Right femoral vein: Long 7-Bhutanese sheath, Long 9-Bhutanese sheath, Short 9- Bhutanese sheath We now advanced catheters under ultrasound and 3D mapping guidance as follows:1. An intracardiac echocardiography catheter was placed in the right atrium. This catheter was used to guide the transseptal puncture and to guide catheter manipulation in the left atrium as well as for visual monitoringfor development of any pericardial effusion.2. A duodecapolar Livewire mapping catheter was placed in the coronary sinus with the middle electrodes by the coronary sinus ostium. This catheter was usedfor left atrial pacing and recording and as a stable anatomic and timing reference for 3D and 2D mapping.3. After the first transseptal puncture was performed as described below, we positioned a multielectrode mapping catheter in the left atrium. This catheter was used for left atrial mapping. We positioned a 3.5 mm open irrigated ablation catheter to the left atrium. This catheter was used for left atrial pacing, recording, ablation and mapping. The patient was given a heparin bolus, and of note for the remainder of the procedure additional boluses and an infusion of heparin were given as neededto maintain an ACT greater than 350 seconds. The first transseptal puncture was performed as follows;The short 9-Bhutanese femoral vein sheath was exchanged over a long wire for an Agilis sheath, which was placed at the fossa ovalis. Using the ablation catheter, the sheath was positioned and secured at the fossa ovalis. The ablation catheter was removed and exchanged for a Karel needle within the dilator. Under ultrasonographic guidance, successful puncture was confirmed ultrasonographically as wellas via a left atrial pressure recording. The Agilis sheath was carefully flushed and connected to heparinized saline infusion via a bubble filter. The Pentaray mapping catheter was placed in the left atrium and a 3D geometry of the left atrium was created. This resulted in an accurate 3D geometry of the left atrium, the pulmonary veins and the appendage, which was used to guide catheter manipulation as well as for the projection of 3D mapping results. The baseline voltage map of the left atrium was created after CVN, while in NSR. Mainly normal voltage was seen throughout. Additional activation and other maps were created as needed and indicated throughout the remainder of the procedure. Next, ablation was performed as follows: We delivered 50 Bond for short duration limited to 5 seconds on the posterior wall, with careful impedance monitoring. Continuous esophageal temperature monitoring was with an esophageal temperature probe (Circa S-cath). We used 40 bond in the anterior wall and roof for short duration targeting ablation index of 500. Posteriorly, we used HPSD 50W for 6- 8sec lesions. A roof line and inferior line anchoring the right and left isolated pulmonary veins were created. Additional line superiorly and horizontally were created to isolate the posterior wall. After completion of the pulmonary vein isolation and posterior wall procedure, additional arrhythmias were targeted as indicated below. We then induced an atrial tachycardia inferior to the inferior line/RIPV junction that was successfully ablated. We then ablated the CTI line as described below. We then completed the electrophysiologic study with findings below. The procedure was now successfully terminated.We confirmed the presence of a small pericardial effusion with the intracardiac echocardiography catheter. The sheaths were removed from the left atrium. The heparin infusion was stopped and the heparin was reversed with protamine. We confirmed an intact right phrenic nerve via high output pacing from the right pulmonary veins proximal to any ablation sites. All catheters and sheaths were removedand excellent hemostasis was obtained using a figure of 8 suture and manual compression. The estimated blood loss was 10 mL. FINDINGS:1. The patient was in atrial fibrillation when entering the lab2. The patient was successfully cardioverted to sinus rhythm with 300J synchronized.3. AH 112 ms , HV 53 ms4. Right atrial pressure 55nhVq2. Left atrial pressure 28 mmHg6. The left pulmonary veins were isolated on first pass. 7. The right pulmonary veins were large and did not isolate on the first pass andrequired a rios line along with ablation of complex potentials on the posterior rios. The veins were isolated.8. The esophagus was central in the posterior wall but very deep/far from the posteriorwall. 9. The posterior wall was very active requiring extensive ablation in all quadrants/likely thick tissue. Multiple reconnections were found with isuprel that were successfully ablated. 10. The patient was given 40mg of IV lasix during the procedure 11. A tachycardia was induced with TCL of 380ms.Both the left and right atrium were mapped and a focal area inferior to the floor line/Right inferior pulmonary vein connection was found and ablated successfully. 12. The CTI was ablated with proof ofbidirectional block. Differential pacing from medial to lateral - 169 ms / 152 ms13. The patient wasgiven another dose of lasix IV post procedure. 14. The small pericardial effusion seen prior to beginning the case was stable PLAN:The patient will receive routine proton pump inhibitor and Carafate the rapy. The patient will be kept on 4 hours of bed rest, will be continued on anticoagulation and admitted for overnight observation. Restart home dose of Tikosyn.[facility] MethodistAr[facility]ial [id number] 08:20:30FoJoe hong CRNA 01/07/2021 8:21 AMArterial line Patient Location: ORStart Time: 12/21 8:03 AMEnd Time: 01/07/2021 8:06 AM Performed by: JADEN/Fermin/JADEN/AA: Joe Torres CRNAAuthorized by: Urban Dale MD Pre-procedure: patient identified, IV checked, site and side verified, risks and benefits discussed, procedure verified, surgical consent complete, patient position confirmed, monitors and equipment checked, pre-op evaluation complete and timeout performed prior to procedure MSBT: antiseptic used, all elements of maximal sterile barrier technique followed, hand hygiene performed, cap/gown used by other personnel and solutions labeled Indications: Indications: hemodynamic monitoring Anesthesia: Anesthesia: GeneralProcedure Details: Arterial Line placement: Placed post induction Line placement site: RadialLine placement side: Right Arterial line gauge: 20 GNumber of attempts: 1 Ultrasound guidance used: Yes Post-procedure: Post-procedure: Sterile dressing applied Post procedure circulation, sensation, movement: Unchanged Patient tolerance: Patient tolerated the procedure well with no immediate complicationsSapello [id number] 08:08:00Joe Torres CRNA 01/07/2021 8:15 AMAirway Date/Time: 01/07/2021 8:08 AM 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 Performed by: anesthesiologistAnesthesiologist: Urban Dale MDAuthorized by: Urban Dale MD Urgency: ElectiveDifficult Airway: Yes Preoxygenated with 100% O2: Yes C-spine Precautions Maintained Throughout: Yes Mask Ventilation: Easy maskFinal Airway Type: Endotracheal airwayFinal Endotracheal Airway: ETTCuffed: Yes Technique Used: Video laryngoscopyDevices/Methods Used in Placement: Intubating styletInsertion Site: OralBlade Type: MacintoshETT Size (mm): 7.0Cuff at minimum occlusion pressure: Yes Measured from: TeethETT to Teeth (cm): 21Placement Verified by: CO2 detection and direct visualization Laryngoscopic view: Grade I - full view of glottisRapid Sequence Induction (RSI): No Modified RSI: No Number of Attempts at Approach: 2 First attempt with [place] 2--only epiglottis seen. Second attempt with Mac 3 videoscope, full view of glottis only with posterior pressure applied to larynx by Mr. Torres.Kyler MethodistCOVID-19 qualitative [id number] 18:46:45 Test Item Value Reference Range Interpretation Comments Interpretation (test Negative results do code = 8433464) not preclude 2019-nCoV infection and should not be used as the sole basis for treatment or other patient management decisions. Negative results must be combined with clinical observations, patient history, and epidemiological information. COVID-19 qualitative Not-Detected Not-Detected PCR result (test code = 21520-5) COVID-19 qualitative See link below for C ase Number: PCR (test code = PDF Lab Report [id number]) Kyler GatesVlnynhjheVCYQ-BcO-0 (COVID-19) RNA [Presence] in Respiratory specimen by NEHEMIAS with probe [id number] 18:46:21 Test Item Value Reference Range Interpretation Comments SARS-CoV-2 (COVID-19) RNA Not detected Not-Detected [Presence] in Respiratory specimen by NEHEMIAS with probe detection (test code = 38875-8) CHEM [id number] 10:23:002.1[facility]annCHEM [id number] 10:23:002.8 [facility]annCHEM [id number] 10:23:0040[facility] HermannCHEM PANEL 2014-11-26 10:23:0080[facility] HermannCHEM [id number] 10:23:0018[facility] HermannCHEM [id number] 10:23:001.3[facility] HermannCHEM [id number] 10:23:97289Xofvdpkc HermannCHEM [id number] 10:23:90564Aroyesdi HermannCHEM [id number] 10:23:003.5[facility] HermannCHEM [id number] 10:23:009.0 [facility]annCHEM [id number] 10:23:0025[facility] HermannCHEM PANEL 2014-11-26 10:23:0012.5[facility] [id number] 10:23:0013.1[facility] [id number] 10:23:00 Test Item Value Reference Range Interpretation Comments MCH (test code = MCH) 32.4 pg 27.0-31.0 Memorial [id number] 10:23:0093.5[facility] 2014-11-26 10:23:0034.6[facility] IprzykpGAUDLVZDKQ1957-48-41 10:23:0033.6[facility] OgwzmgoBQIDESFWTN8648-76-07 10:23:0011.6[facility] TikrmzoVFAIPJGAMN9902-70-29 10:23:003.60[facility] UqilmifYVFXPMTCAP9791-85-41 10:23:004.6[facility] MBMAIOICYV5631-53-72 10:23:008.3[facility] PttlpxmETIBOEKIWV5650-23-81 10:23:33658 [facility] HqoyotjLITXCVMJHD2432-18-49 10:23:0062.3[facility]annHEMATOLOGY 2014-11-26 10:23:001.2[facility] LvfgcpaZOCFWMRTED6078-89-62 10:23:000.4[facility] ClkutttDBNPCGFWJM0093-88-69 10:23:003.0[facility] SeajjuoQEKUPLBIAA7222-14-12 10:23:0026.2[facility] VuaovjfVWBVMZQQLJ0541-20-97 10:23:002.9[facility] ETCQYBXZMI2792-86-13 10:23:000.5[facility] QhpuvxjWYVIBCRAFT6955-24-57 10:23:008.0 [facility] CjiyicaFTLEDWDTKM2292-36-77 10:23:000.1[facility]annCHEM PANEL 2014-11-25 07:04:003.1[facility]annCHEM KEEBY0187-51-98 07:04:0034[facility]annCHEM ICZGM4657-92-62 07:04:0025[facility]annCHEM AXIUY5048-06-67 07:04:0012.8[facility]annCHEM LPWZP8493-37-13 07:04:008.7[facility]annCHEM FLUWR5193-73-78 07:04:15971Lgiqnwuu HermannCHEM QNEWZ2999-76-20 07:04:0023 [facility]annCHE[facility] HRULS2316-97-16 07:04:35836Hcpitjly HermannCHEM PANEL 2014-11-25 07:04:0082[facility]annCHEM QCCKU4856-54-88 07:04:001.5[facility]annCHEM DNQBX5243-40-73 07:04:003.8[facility]annCHEM XDVJI2021-39-77 07:04:002.7[facility] HygvnnlMVDRMMFAIB9381-87-19 07:04:0063.1[facility] XHHBMTMQXF9230-79-40 07:04:0027.1[facility] DuilwhkTNNGKRKAHI9048-89-66 07:04:00 7.2[facility] ZhwuwuoZPOSJKJCMY6701-45-69 07:04:000.1[facility]annHEMATOLOGY 2014-11-25 07:04:002.2[facility] LwvrqmqZOKDJYLJCC6803-68-88 07:04:000.4[facility] HvhnthnGBOWEFPYPQ1827-61-03 07:04:003.1[facility] KygbtksDEFFUQGHMS2378-88-13 07:04:000.3[facility] AvzplxcGCHKDTVEIH7113-93-30 07:04:001.3[facility] DQEXIUXSYB3493-49-11 07:04:008.5[facility] NhedxjoLJDHBTZDSG3805-99-64 07:04:00 Test Item Value Reference Range Interpretation Comments MCH (test code = MCH) 31.6 pg 27.0-31.0 [facility] QfddebqUZCMMFDYFJ7436-26-77 07:04:0093.4[facility]annHEMATOLOGY 2014-11-25 07:04:0033.2[facility] KzisyvpSWKIBAMUHM9935-04-44 07:04:99590Hhkxjxig WzschmoGLJVRCCDYI4998-30-62 07:04:0013.1[facility] AjjwgkpLPWIDLEEJW2702-99-25 07:04:0033.8[facility] KgystmqVQQPLIMCKG4326-87-55 07:04:0011.2[facility] YVWOGOFGHD8763-67-62 07:04:003.56[facility] RmgihwrPABSUGUCAK7608-09-67 07:04:00 4.9[facility] TluvjtnWESPIGWTHW2056-76-05 07:04:001.14[facility]annHEMATOLOGY 2014-11-25 07:04:00 Test Item Value Reference Range Interpretation Comments PTT (test code = PTT) 28.5 s 22.9-35.8 [facility] OpbcmdnMXUNEHHXGQ7204-12-18 07:04:00 Test Item Value Reference Range Interpretation Comments PT (test code = PT) 14.7 s 12.0-14.7 [facility] HermannTHYROID AMUKD5835-32-00 07:04:003.190[facility]annURINE AND PBQPU1527-80-61 08:06:007[facility] AND DGVUK4822-72-04 08:06:002 [facility] UJCGC7426-20-68 08:06:00Negative (11/24/14 2:06 AM) [facility] DJTTJ4241-45-97 08:06:00Negative (11/24/14 2:06 AM) [facility] BHGEM0463-39-65 08:06:00Negative (11/24/14 2:06 AM) [facility] FYKBH6354-48-24 08:06:006.5[facility] NTQWM5043-01-49 08:06:00Negative *NA*(11/24/14 2:06 AM)[facility] FWCLT2108-79-78 08:06:001.009[facility] SXVDN4911-46-79 08:06:00 Clear (11/24/14 2:06 AM)[facility] KDJTD1071-26-56 08:06:00Yellow *NA*(11/24/14 2:06 AM)[facility]annCHEM GKFUR4853-29-74 07:51:001.2[facility]annCHEM NIVRD9572-78-05 07:51:003.2[facility]annCHEM RQMMM5277-58-96 07:51:0022[facility]annCHEM VPCFQ0077-17-98 07:51:009.8[facility]annCHEM MFWDK0611-16-37 07:51:0029[facility]annCHEM KRFYF1281-07-79 07:51:90607 [facility]annCHE[facility] IWZZZ3206-98-94 07:51:008.7[facility]annCHEM PANEL 2014-11-24 07:51:0029[facility]annCHEM AOIEV9843-19-11 07:51:0017[facility]annCHEM UATJY1666-43-95 07:51:003.7[facility]annCHEM DYLZW2965-44-32 07:51:006.9[facility]annCHEM BLHGC4782-44-66 07:51:0028[facility]annCHEM OGKSZ7480-56-44 07:51:25241Fvacqdud HermannCHEM GKFEV2746-18-24 07:51:003.8 [facility]annCHEM KNYRN7045-03-26 07:51:16001Taxuahos HermannCHEM PANEL 2014-11-24 07:51:001.7[facility] HermannCHEM OROGJ0193-45-07 07:51:0037[facility]annCHEM RZCVS9234-04-82 07:51:0037[facility]annCHEM IBDCN4282-78-03 07:51:000.4[facility] ZpirneaNUGTDXLFYF7438-34-59 07:51:000.4[facility] QKJSMQVGAT1625-96-95 07:51:001.1[facility] DjneproGWBGFVRIRK2666-38-60 07:51:000.1 [facility] EhxxnywVSTAJTWRFK2812-00-29 07:51:0070.9[facility]annHEMATOLOGY 2014-11-24 07:51:006.7[facility] MdfjgmnQSNCNYSFUH2117-55-97 07:51:0019.7[facility] ApvwdriTTYDYXDIJY2292-07-05 07:51:002.3[facility] EhejgacEATROQTXDZ0120-84-99 07:51:004.0[facility] ZpqjjfzLLJWDYBUKB3551-12-71 07:51:000.4[facility] FGVETQFBSU7699-95-10 07:51:00 Test Item Value Reference Range Interpretation Comments PTT (test code = PTT) 28.2 s 22.9-35.8 [facility] YiqfdxrFJIJJMWMSV5318-03-27 07:51:00 Test Item Value Reference Range Interpretation Comments PT (test code = PT) 13.9 s 12.0-14.7 [facility] PxvfvhoMTMLXRVSIK2079-64-50 07:51:001.07[facility]annHEMATOLOGY 2014-11-24 07:51:008.8[facility] FknxkxjZYLFEHMIKC7109-60-13 07:51:005.7[facility] VfteffdIAIOZVSSXO0426-55-48 07:51:0094.9[facility] IafmwkuVUUJRWBOBC8534-83-81 07:51:003.73[facility] CcnmmbcYOOOLCUPJB0704-25-54 07:51:0013.3[facility] QMMBXMASHW5699-73-21 07:51:0012.1[facility] HqoxvvhEADJZWZRGB8452-40-45 07:51:00 35.3[facility] QusxljdYOMPHETYLP1936-39-65 07:51:52020Xxxpselh HermannHEMATOLOGY 2014-11-24 07:51:0034.2[facility] ZdgvwflMGMDESRNJI0432-85-40 07:51:00 Test Item Value Reference Range Interpretation Comments MCH (test code = MCH) 32.5 pg 27.0-31.0 [facility] HboolwgKZMQZG5758-84-00 07:51:002.81[facility] UtgjeqkNEKXHK7151-47-34 07:51:0026[facility] QwkyijpDVVAXZ1540-05-59 07:51:0059[facility] HermannLIPIDS 2014-11-24 07:51:88669Joknkxzz QkhnbysARACSH3603-43-16 07:51:0047[facility] KjnbsiaHXSFPG2181-42-96 07:51:79931Hmfvamyg HermannSPECIAL JWRCZGDVW9862-47-95 07:51:005.6[facility]
[2021-04-01 01:30] LABS: Urine Blood 1+ (Negative); Urine Glucose Negative (Negative); Urine Protein Trace (Negative)
--- NOTE | 2021-04-01 02:17 | ER ---
Nurse's Notes [facility] Name: Kristal You Age: 80 yrs Sex: Female : 1940 Arrival Date: 04/01/2021 Time: 00:02 Bed 19 Private MD: Diagnosis: Abdominal tenderness;Dysuria;Urinary tract infection, site not specified;Obesity, unspecified;Hematuria Presentation: 04/01 00:16 Chief complaint: Patient states: painful urination x3 days. Coronavirus screen: Client ak2 denies travel out of the [place] in the last 14 days. Ebola Screen: Patient negative for fever greater than or equal to 101.5 degrees Fahrenheit, and additional compatible Ebola Virus Disease symptoms Patient denies exposure to infectious person. Patient denies travel to an Ebola-affected area in the 21 days before illness onset. No symptoms or risks identified at this time. Initial Sepsis Screen: Does the patient meet any 2 criteria? No. Patient's initial sepsis screen is negative. Does the patient have a suspected source of infection? No. Patient's initial sepsis screen is negative. Risk Assessment: Do you want to hurt yourself or someone else? Patient reports no desire to harm self or others. Onset of symptoms was March 29, 2021. 00:16 Method Of Arrival: Ambulatory ak2 00:16 Acuity: LUCINA 3 ak2 Historical: - Allergies: 00:18 namutol; ak2 - Immunization history:: Adult Immunizations up to date. - Social history:: Smoking status: unknown. - Family history:: not pertinent. Screenin:00 Abuse screen: Denies threats or abuse. Nutritional screening: No deficits noted. lc1 Tuberculosis screening: No symptoms or risk factors identified. Fall Risk None identified. Assessment: 01:00 General: Appears distressed, uncomfortable, Behavior is calm, cooperative. Pain: lc1 Complains of pain in bladder Pain currently is 10 out of 10 on a pain scale. Quality of pain is described as burning. Neuro: No deficits noted. Cardiovascular: No deficits noted. Respiratory: No deficits noted. GI: No deficits noted. : Reports burning with urination, pain. EENT: No signs and/or symptoms were reported regarding the EENT system. Derm: No signs and/or symptoms reported regarding the dermatologic system. Musculoskeletal: No signs and/or symptoms reported regarding the musculoskeletal system. 02:00 Reassessment: No changes from previously documented assessment. Patient and/or family lc1 updated on plan of care and expected duration. Pain level reassessed. Patient is alert, oriented x 3, equal unlabored respirations, skin warm/dry/pink. Patient states feeling better. 03:00 Reassessment: No changes from previously documented assessment. Patient and/or family lc1 updated on plan of care and expected duration. Pain level reassessed. Patient is alert, oriented x 3, equal unlabored respirations, skin warm/dry/pink. Patient states feeling better. pain medication offered, pt states she doesn't want to take any pain meds at this time . Vital Signs: 00:16 BP 153 / 69; Pulse 86; Resp 20; Temp 98.3; Pulse Ox 98% ; Weight 108.41 kg; Height 5 ak2 ft. 2 in. (157.48 cm); 01:00 BP 162 / 55; Pulse 89; Resp 20; Pulse Ox 97% on R/A; lc1 02:00 BP 179 / 57; Pulse 78; Resp 18; Pulse Ox 100% on R/A; lc1 03:00 BP 158 / 62; Pulse 68; Resp 18; Pulse Ox 99% on R/A; 1 00:16 Body Mass Index 43.71 (108.41 kg, 157.48 cm) ak2 ED Course: 00:02 Patient arrived in ED. am4 00:18 Triage completed. ak2 01:00 Appears restless. Awaiting lab results. 1 01:00 Bed in low position. Call light in reach. Side rails up X 1. Pulse ox on. NIBP on. 1 01:00 Door closed. Noise minimized. Warm blanket given. Pillow given. 1 01:00 No provider procedures requiring assistance completed. lc1 01:08 Artur Benson MD is Attending Physician. fly 01:33 Marlene Desai is Primary Nurse. lc1 02:14 Judd Gurrola MD is Hospitalizing Provider. fly 02:23 XRAY Chest (1 view) In Process Unspecified. EDMS 02:40 CT Stone Protocol In Process Unspecified. EDMS 03:00 Awaiting radiology results. 1 03:00 Lights dimmed. 1 03:00 Inserted saline lock: 20 gauge in right forearm, using aseptic technique. Blood lc1 collected. 03:01 Basic Metabolic Panel Sent. lc1 03:01 CBC with Diff Sent. lc1 03:01 LFT's Sent. lc1 03:01 NT PRO-BNP Sent. lc1 03:01 PT-INR Sent. lc1 03:01 Troponin (emerg Dept Use Only) Sent. lc1 03:34 Arm band placed on left wrist. lc1 03:35 Patient admitted, IV remains in place. lc1 03:37 COVID-19 : Document "Date of Symptom Onset" if Symptomatic. Sent. lc1 03:37 Magnesium Sent. lc1 07:49 Report given to Deonna TIWARIdry cure worker. kg Administered Medications: 03:20 Drug: Pepcid (famotidine) 20 mg Route: IVP; Site: right forearm; lc1 03:30 Follow up: Response: No adverse reaction lc1 03:22 Drug: Meropenem 1 grams Route: IV; Rate: per protocol; Site: right forearm; lc1 03:35 Follow up: IV Status: Completed infusion 1 Outcome: 02:16 Decision to Hospitalize by Provider. [facility] 03:00 Condition: good 1 03:00 Instructed on the need for admit. 03:35 Admitted to ER Hold. Please see [facility] for further documentation. lc1 07:59 Patient left the ED. kg Signatures: Dispatcher [employer] EDMS Artur Benson MD MD cha Calhoun, Lisa lc1 Yeni Washington am4 Lyndsey Condon RN RN kg Qamar Marcelo ak2 Corrections: (The following items were deleted from the chart) 00:19 00:16 Pulse 86bpm; Resp 20bpm; Pulse Ox 98%; Temp 98.3F; 108.41 kg; Height 5 ft. 2 in.; ak2 BMI: 43.7; ak2
--- NOTE | 2021-04-01 02:17 | EDPHYS ---
Physician Documentation [facility] Name: Kristal You Age: 80 yrs Sex: Female : 1940 Arrival Date: 04/01/2021 Time: 00:02 Bed 19 Private MD: ED Physician Artur Benson HPI: 04/01 02:09 This 80 yrs old Female presents to ER via Ambulatory with complaints of fly Vaginal Pain. 02:09 The patient presents with urinary symptoms, dysuria, frequency, hematuria, urgency, fly vaginal bleeding that is. Onset: The symptoms/episode began/occurred 3 day(s) ago. Modifying factors: The symptoms are alleviated by nothing, remaining still, the symptoms are aggravated by movement, pressure, walking, urinating. Associated signs and symptoms: Pertinent positives: hematuria, urinary frequency. Severity of symptoms: At their worst the symptoms were mild, moderate, in the emergency department the symptoms are unchanged. The patient is not sexually active. The patient has experienced similar episodes in the past, multiple times. Historical: - Allergies: 00:18 namutol; ak2 - Immunization history:: Adult Immunizations up to date. - Social history:: Smoking status: unknown. - Family history:: not pertinent. ROS: 02:09 Constitutional: Negative for fever, chills, and weight loss, Eyes: Negative for injury, fly pain, redness, and discharge, ENT: Negative for injury, pain, and discharge, Neck: Negative for injury, pain, and swelling, Cardiovascular: Negative for chest pain, palpitations, and edema, Respiratory: Negative for shortness of breath, cough, wheezing, and pleuritic chest pain, Back: Negative for injury and pain, MS/Extremity: Negative for injury and deformity, Skin: Negative for injury, rash, and discoloration, Neuro: Negative for headache, weakness, numbness, tingling, and seizure, Psych: Negative for depression, anxiety, suicide ideation, homicidal ideation, and hallucinations, Allergy/Immunology: Negative for hives, rash, and allergies, Endocrine: Negative for neck swelling, polydipsia, polyuria, polyphagia, and marked weight changes, Hematologic/Lymphatic: Negative for swollen nodes, abnormal bleeding, and unusual bruising. 02:09 Abdomen/GI: Positive for abdominal pain, abdominal cramps. 02:09 : Positive for urinary symptoms, flank pain, hematuria, burning with urination, difficulty urinating. Exam: 02:09 Constitutional: This is a well developed, well nourished patient who is awake, alert, fly and in no acute distress. Head/Face: Normocephalic, atraumatic. Eyes: Pupils equal round and reactive to light, extra-ocular motions intact. Lids and lashes normal. Conjunctiva and sclera are non-icteric and not injected. Cornea within normal limits. Periorbital areas with no swelling, redness, or edema. ENT: Nares patent. No nasal discharge, no septal abnormalities noted. Tympanic membranes are normal and external auditory canals are clear. Oropharynx with no redness, swelling, or masses, exudates, or evidence of obstruction, uvula midline. Mucous membranes moist. Neck: Trachea midline, no thyromegaly or masses palpated, and no cervical lymphadenopathy. Supple, full range of motion without nuchal rigidity, or vertebral point tenderness. No Meningismus. Chest/axilla: Normal chest wall appearance and motion. Nontender with no deformity. No lesions are appreciated. Respiratory: Lungs have equal breath sounds bilaterally, clear to auscultation and percussion. No rales, rhonchi or wheezes noted. No increased work of breathing, no retractions or nasal flaring. Abdomen/GI: Soft, non-tender, with normal bowel sounds. No distension or tympany. No guarding or rebound. No evidence of tenderness throughout. Back: No spinal tenderness. No costovertebral tenderness. Full range of motion. Skin: Warm, dry with normal turgor. Normal color with no rashes, no lesions, and no evidence of cellulitis. 02:09 Cardiovascular: Rate: normal, Rhythm: regular, Pulses: Pulses are 4+ in bilateral radial, brachial, femoral, popliteal, posterior tibial and and dorsalis pedis arteries.. Heart sounds: normal, Edema: is not appreciated, JVD: is not appreciated. 03:38 ECG was reviewed by the Attending Physician. [facility] Vital Signs: 00:16 BP 153 / 69; Pulse 86; Resp 20; Temp 98.3; Pulse Ox 98% ; Weight 108.41 kg; Height 5 ak2 ft. 2 in. (157.48 cm); 01:00 BP 162 / 55; Pulse 89; Resp 20; Pulse Ox 97% on R/A; lc1 02:00 BP 179 / 57; Pulse 78; Resp 18; Pulse Ox 100% on R/A; lc1 03:00 BP 158 / 62; Pulse 68; Resp 18; Pulse Ox 99% on R/A; lc1 00:16 Body Mass Index 43.71 (108.41 kg, 157.48 cm) ak2 MDM: 01:08 Patient medically screened. [facility] 02:13 Differential diagnosis: kidney stone, Neoplasm nonspecific abdominal pain, ovarian fly cyst, uterine fibroids, urinary tract infection. Data reviewed: vital signs, nurses notes, lab test result(s), EKG, radiologic studies, CT scan, plain films. 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 Test interpretation: by ED physician or midlevel provider: ECG, plain radiologic studies. Counseling: I had a detailed discussion with the patient and/or guardian regarding: the historical points, exam findings, and any diagnostic results supporting the discharge/admit diagnosis, lab results. 04/01 01:09 Order name: Urine Culture [facility] 04/01 01:29 Order name: Urine Dipstick-Ancillary; Complete Time: 02:08 EDVT 04/01 02:06 Order name: Basic Metabolic Panel [facility] 04/01 02:06 Order name: CBC with Diff [facility] 04/01 02:06 Order name: LFT's [facility] 04/01 02:06 Order name: Magnesium [facility] 04/01 02:06 Order name: NT PRO-BNP; Complete Time: 03:[address] [facility] 04/01 02:06 Order name: PT-INR; Complete Time: 03:[address] [facility] 04/01 02:06 Order name: Troponin (emerg Dept Use Only); Complete Time: 03:[address] [facility] 04/01 02:06 Order name: Lipase; Complete Time: 03:[address] [facility] 04/01 02:06 Order name: COVID-19 : Document "Date of Symptom Onset" if Symptomatic. [facility] 04/01 02:06 Order name: Basic Metabolic Panel; Complete Time: 03:37 EDVT 04/01 02:06 Order name: CBC with Automated Diff; Complete Time: 03:37 EDVT 04/01 02:06 Order name: Liver (Hepatic) Function; Complete Time: 03:37 EDVT 04/01 01:09 Order name: Urine Dipstick-Ancillary (obtain specimen); Complete Time: 01:[address] [facility] 04/01 02:06 Order name: XRAY Chest (1 view) [facility] 04/01 02:06 Order name: EKG; Complete Time: 02:[address] [facility] 04/01 02:06 Order name: Cardiac monitoring; Complete Time: 03:[address] [facility] 04/01 02:06 Order name: EKG - Nurse/Tech; Complete Time: 03:[address] [facility] 04/01 02:06 Order name: IV Saline Lock; Complete Time: 03:[address] [facility] 04/01 02:06 Order name: Labs collected and sent; Complete Time: 03:[address] [facility] 04/01 02:06 Order name: O2 Per Protocol; Complete Time: 03:[address] [facility] 04/01 02:06 Order name: O2 Sat Monitoring; Complete Time: 03:[address] [facility] 04/01 02:06 Order name: Magnesium; Complete Time: 03:37 EDMS 04/01 02:08 Order name: CT Stone Protocol [facility] 04/01 05:32 Order name: SARS-COV-2 RT PCR; Complete Time: 07:47 EDMS EC:38 Rate is 66 beats/min. Rhythm is regular. QRS [place] is Normal. DE interval is prolonged fly at 252 msec. QRS interval is normal. QT interval is normal. No Q waves. T waves are Normal. No ST changes noted. Clinical impression: 1st degree heart block and No evidence of ischemia. Interpreted by me. Reviewed by me. Administered Medications: 03:20 Drug: Pepcid (famotidine) 20 mg Route: IVP; Site: right forearm; [facility] 03:30 Follow up: Response: No adverse reaction [facility] 03:22 Drug: Meropenem 1 grams Route: IV; Rate: per protocol; Site: right forearm; 1 03:35 Follow up: IV Status: Completed infusion lc1 Disposition: 04/01/21 02:16 Hospitalization ordered by Judd Gurrola for Observation. Preliminary diagnosis are Abdominal tenderness, Dysuria, Urinary tract infection, site not specified, Obesity, unspecified, Hematuria. - Bed requested for Telemetry/MedSurg (observation). - Status is Observation. kg - Condition is Fair. - Problem is new. - Symptoms have improved. Signatures: Dispatcher [employer] EDMS Artur Benson MD MD cha Calhoun, Lisa lc1 Shweta Nunez RN RN tl1 Lyndsey Condon, RN RN kg Qamar Marcelo ak2 Corrections: (The following items were deleted from the chart) 05:46 02:16 Hospitalization Ordered by Judd Gurroal MD for Observation. Preliminary diagnosis tl1 is Abdominal tenderness; Dysuria; Urinary tract infection, site not specified; Obesity, unspecified; Hematuria. Bed requested for Telemetry/MedSurg (observation). Status is Observation. Condition is Fair. Problem is new. Symptoms have improved. fly 07:59 05:46 04/01/2021 02:16 Hospitalization Ordered by Judd Gurrola MD for Observation. kg Preliminary diagnosis is Abdominal tenderness; Dysuria; Urinary tract infection, site not specified; Obesity, unspecified; Hematuria. Bed requested for Telemetry/MedSurg (observation). Status is Observation. Condition is Fair. Problem is new. Symptoms have improved. tl1
[2021-04-01 03:19] LABS: Protime INR 1.25
[2021-04-01 03:21] LABS: Absolute Lymphocytes (CBC) 1.5 K/uL (0.7-4.9); Basophils % 0.5 % (0-1.3); Hematocrit 34.7 % (36.0-45.0); Lymphocytes % 23.7 % (15.3-44.8); MPV 7.8 fL (7.6-11.3); RBC Red Blood Cell Count 4.14 M/uL (3.86-4.86)
[2021-04-01] MEDS ORDERED: FAMOTIDINE 20 MG/2 ML VIAL IV ONE (03:25)
[2021-04-01] MEDS ORDERED: Meropenem 1 GM/100 ML BAG ONE (03:25)
[2021-04-01 03:30] LABS: ALT/SGPT 30 U/L (12-78); AST/SGOT 19 U/L (15-37); Albumin 3.3 g/dL (3.4-5.0); Alkaline Phosphatase 85 U/L (45-117); BUN Blood Urea Nitrogen 11 mg/dL (7-18); Bicarbonate 24 mmol/L (21-32); Bilirubin Direct 0.1 mg/dL (0-0.2); Bilirubin Total 0.3 mg/dL (0.2-1.0); Glucose Level 106 mg/dL (74-106); Lipase 258 U/L (73-393); Magnesium 2.3 mg/dL (1.8-2.4); NT PRO-BNP 457 pg/mL (<450); Protein, Total 7.5 g/dL (6.4-8.2); Sodium Level 134 mmol/L (136-145); Troponin (Emerg Dept Use Only) < 0.02 ng/mL (0.0-0.045)
[2021-04-01] MEDS ORDERED: ONDANSETRON 4 MG/2 ML VIAL IV PRN (04:02)
[2021-04-01] MEDS ORDERED: ACETAMINOPHEN 500 MG TAB PO PRN (04:02)
[2021-04-01] MEDS ORDERED: NA CHLORIDE 0.9% 1,000 ML IV SCH (04:02)
[2021-04-01] MEDS ORDERED: MORPHINE 4 MG/ML SYR IV PRN (04:02)
[2021-04-01] MEDS ORDERED: NA CHLORIDE 0.9% 1,000 ML ONE (04:35)
[2021-04-01 05:43] VITALS: BMI 43.7
[2021-04-01] MEDS ORDERED: Meropenem 1000 MG/VIAL IV SCH (09:00)
[2021-04-01] MEDS ORDERED: FAMOTIDINE 20 MG/2 ML VIAL IV SCH (09:00)
--- NOTE | 2021-04-01 09:51 | RAD REPORT ---
EXAM DESCRIPTION: RAD - Chest Single View - 04/01/2021 2:23 am CLINICAL HISTORY: COUGH Chest pain. COMPARISON: Chest Pa And Lat (2 Views) dated 03/19/2021; Chest Single View dated 07/04/2020; Chest Sin gle View dated 03/09/2020; Chest Single View dated 12/27/2019 FINDINGS: Portable technique limits examination quality. Mild bilateral interstitial lung opacities may represent mild interstitial pulmonary edema or interst itial pneumonitis. The heart is mildly enlarged in size. No displaced fractures.
[2021-04-01] MEDS ORDERED: Symbicort 160-4.5 Mcg Inhaler IH SCH (10:00)
[2021-04-01] MEDS: AMLODIPINE 5 MG TAB PO SCH (12:07)
[2021-04-01] MEDS: DOXAZOSIN 2 MG TAB PO SCH (12:08)
[2021-04-01] MEDS: ACETAMINOPHEN 325 MG TABLET PO PRN ×2 (12:10→18:58)
[2021-04-01] MEDS: POTASSIUM CL SA 10 MEQ TAB PO SCH ×2 (13:10→20:29)
[2021-04-01] MEDS: GABAPENTIN 100 MG CAP PO SCH ×2 (13:11→20:29)
[2021-04-01] MEDS: Meropenem 1 GM/100 ML BAG IV SCH (15:37)
--- NOTE | 2021-04-01 16:10 | RAD REPORT ---
EXAM DESCRIPTION: CT Chest, Abdomen, and Pelvis COMPARISON: None. CLINICAL HISTORY: [facility] MAIN Abdominal distention;Pain TECHNIQUE: CT images through the chest, abdome n, and pelvis with IV contrast. Multiplanar reformats. Automated exposure control was utilized on t his examination as a dose lowering technique. CT CHEST FINDINGS: Heart and mediastinum: Heart size is normal. No lymphadenopathy. Thyroid gland: Visualized portions are normal. Lungs: Clear. Airways: No filling defects. No bronchiectasis. Pleura: No pneumothorax. No significant pleural effusion. Musculoskeletal and soft tissues: Within normal limits for age. CHEST IMPRESSION: No acute chest process. CT ABDOMEN & PELVIS FINDINGS: *Evaluation of solid organs is limited due to lack of IV contrast. Liver: Enlarged measuring 21.5 cm midclavicular line with steatosis. Gallbladder and biliary: Cholecystectomy. Unremarkable biliary tree. Pancreas: Normal. Spleen: Normal. Kidneys and adrenal glands: Normal adrenal glands. Normal kidneys Stomach and Small Bowel: The stomach and small bowel are normal. Urinary bladder: Normal. Uterus and Adnexa: Hysterectomy. Colon and Appendix: The colon is unremarkable. No evidence of appendicitis. Peritoneal cavity: No ascites or free air. Retroperitoneum and lymph nodes: Normal. Vascular: Normal. Musculoskeletal and soft tissues: Soft tissues are unremarkable. No aggressive bone lesions. No com pression fracture. ABDOMEN AND PELVIS IMPRESSION: Hepatomegaly with steatosis. Electronically signed by: Ruddy Dhaliwal MD 04/01/2021 3:21 AM CDT Due to temporary technical issues with the PACS/Fluency reporting system, reports are being signed by the in house radiologists without review as a courtesy to insure prompt reporting. The interpreting radiologist is fully responsible for the content of the report.
[2021-04-01] MEDS: FUROSEMIDE 40 MG TABLET PO SCH (16:14)
[2021-04-01] MEDS: cloNIDine HCL 0.1 MG TAB PO SCH (20:29)
[2021-04-01] MEDS: ASPIRIN EC 81 MG TAB PO SCH (20:29)
[2021-04-01] MEDS: icosapent ethyL 1 GM CAP PO SCH (20:29)
[2021-04-01] MEDS: LOSARTAN POTASSIUM 50 MG TABLET PO SCH (20:29)
[2021-04-01] MEDS: APIXABAN 5 MG TABLET PO SCH (20:29)
[2021-04-01] MEDS: PANTOPRAZOLE 40MG TABLET PO SCH (20:29)
[2021-04-01] MEDS: TIKOSYN 250 MCG PO SCH (20:30)
[2021-04-01] MEDS ORDERED: HOME MED 1 EA UNK (Omeprazole [Omeprazole] 20 MG Capsule.Dr) PO SCH (21:00)
[2021-04-01] MEDS: HYDRALAZINE HCL 25 MG TABLET PO SCH (21:50)
--- NOTE | 2021-04-02 01:41 | HP ---
Date of Admission: 04/01/2021 Chief Complaint: Pain in bladder. History Of Present Illness: An 80-year-old female patient who came into emergency room with complain ts of suprapubic pain. The patient is also complaining of some dysuria. Denies any hematuria. No f ever. No chills. No nausea or vomiting. She came into office yesterday with this and urinalysis an d urine culture result was sent, result pending. Meanwhile, she ends up in the emergency room last n ight and admitted to the hospital. I saw her in the emergency room this morning. Allergies: LETY INHIBITOR. Medications: List reviewed. Review of Systems: Genitourinary: As mentioned above. All other systems reviewed and negative. Social History: Prior history of smoking, not at present time. Use of alcohol negative. Family History: Significant for father had heart disease, mother had pancreatic cancer, sister had p ancreatic cancer. Past Surgical History: Cholecystectomy, appendectomy, rectocele repair, hysterectomy, bladder suspen venessa, shoulder surgery, carpal tunnel surgery, and knee surgery. Past Medical History: Significant for hypertension, stroke, allergic rhinitis, hypothyroidism, impai red fasting glucose, hyperlipidemia, paroxysmal atrial fibrillation, hyponatremia, asthma. Physical Examination: Vital Signs: When she first came into emergency room, blood pressure 153/69, pulse 86, respiratory r ate 20, temperature 98.3, oxygen saturation 98%. Weight 108.41 kg, height 5 feet 2 inches. General: Awake, alert, oriented, not in distress. HEENT: Head atraumatic, normocephalic. Conjunctivae nonerythematous. Sclerae white. Mouth, no thr ush or edema noted. Ears/Nose, no mass, lesion, discharge noted. Neck: Supple. No JVD, lymph nodes, bruit, thyromegaly noted. Lungs: Bilateral good equal air entry. Clear to auscultation. No rhonchi. No rales. Heart: Normal heart sounds. No murmur or gallop. Abdomen: Soft. Bowel sounds normal. No guarding, rigidity, tenderness, mass, hepatosplenomegaly, d istention, or bruit noted. Extremities: No leg edema. No calf tenderness. Skin: No rash, ulcer, cellulitis. Lymphatics: No lymph node enlargement in neck, supraclavicular, infraclavicular region. Neuro: No focal neurological deficit. Chest: Unremarkable. External Genitalia: Deferred. Rectal: Deferred. Laboratory Data: White count 6.3, hemoglobin 12, platelets 140. Sodium 134, potassium 4, chloride 1 02, bicarb 24, BUN 11, creatinine 0.80, glucose 106. Liver function tests unremarkable. Troponin le ss than 0.02. Lipase 250. Urinalysis showed 1+ blood, nitrite positive, leukocyte esterase 3+, trac e protein. COVID-19 test negative. Impression: 1.Urinary tract infection. 2.Paroxysmal atrial fibrillation. 3.Chronic anticoagulation. 4.Hyponatremia. 5.Hypertension. 6.Hyperlipidemia. 7.Impaired fasting glucose. 8.Hypothyroidism. Plan: Admit the patient to hospital for further evaluation and management of this problem. The wang ent is appropriate for inpatient and is expected to spend 2 midnights in hospital. Home medications will be continued per order. We will go ahead and continue her IV meropenem, which was started in em ergency room. We will follow up on urine culture results and then decide about culture specific appr opriate antibiotic therapy. The patient tells me that she ever require certain antibiotic with clifton garnica concerns about interaction with her antiarrhythmic medication, Tikosyn, then we may discontinue her Tikosyn as reported by her filament maker, Dr. Perez, when she saw him recently this week. We will see her tomorrow for followup. YOLY/MODL Voice ID: [id number]
[2021-04-02] MEDS: Meropenem 1 GM/100 ML BAG IV SCH ×2 (04:14→15:28)
[2021-04-02] MEDS: LEVOTHYROXINE SOD 0.112 MG TAB PO SCH (05:31)
[2021-04-02] MEDS: LIOTHYRONINE SOD 5 MCG TAB PO SCH (05:31)
[2021-04-02 06:07] LABS: Absolute Lymphocytes (CBC) 1.1 K/uL (0.7-4.9); Basophils % 0.8 % (0-1.3); Hematocrit 32.3 % (36.0-45.0); MPV 7.5 fL (7.6-11.3); RBC Red Blood Cell Count 3.77 M/uL (3.86-4.86)
[2021-04-02 06:28] LABS: Albumin 2.8 g/dL (3.4-5.0); Bilirubin Direct 0.1 mg/dL (0-0.2); Bilirubin Total 0.4 mg/dL (0.2-1.0); Potassium 4.1 mmol/L (3.5-5.1); Protein, Total 6.7 g/dL (6.4-8.2)
[2021-04-02] MEDS: GABAPENTIN 100 MG CAP PO SCH ×3 (08:57→21:04)
[2021-04-02] MEDS: POTASSIUM CL SA 10 MEQ TAB PO SCH ×3 (08:57→21:05)
[2021-04-02] MEDS: HYDRALAZINE HCL 25 MG TABLET PO SCH ×2 (08:58→21:04)
[2021-04-02] MEDS: FUROSEMIDE 40 MG TABLET PO SCH ×2 (08:58→16:06)
[2021-04-02] MEDS: DOXAZOSIN 2 MG TAB PO SCH (08:58)
[2021-04-02] MEDS: APIXABAN 5 MG TABLET PO SCH ×2 (08:59→21:04)
[2021-04-02] MEDS: PANTOPRAZOLE 40MG TABLET PO SCH ×2 (08:59→21:04)
[2021-04-02] MEDS: LOSARTAN POTASSIUM 50 MG TABLET PO SCH ×2 (08:59→21:04)
[2021-04-02] MEDS: AMLODIPINE 5 MG TAB PO SCH (08:59)
[2021-04-02] MEDS: icosapent ethyL 1 GM CAP PO SCH ×2 (09:00→21:03)
[2021-04-02] MEDS: cloNIDine HCL 0.1 MG TAB PO SCH ×2 (09:00→21:03)
[2021-04-02] MEDS: VITAMIN D 5,000 UNIT CAP PO SCH (09:00)
[2021-04-02] MEDS: TIKOSYN 250 MCG PO SCH ×2 (09:00→21:09)
[2021-04-02] MEDS: DILTIAZEM HCL 120 MG SR CAP PO SCH (09:01)
--- NOTE | 2021-04-02 10:49 | PN ---
Date of Progress Note: 04/02/2021 Subjective: The patient was seen this morning for followup. No new complaints or problems reported by her. She was sitting at the bedside. Denied any complaints. Her lower abdominal pain from supra pubic region and dysuria has resolved with use of IV antibiotics. Denies any chest pain, shortness o f breath, nausea, vomiting. No diarrhea. Objective: Vital Signs: Reviewed. HEENT: Unremarkable. Lungs: Clear to auscultation. Heart: Sounds normal. Abdomen: Soft. Bowel sounds normal. No guarding, rigidity, tenderness, or distention. Extremities: No leg edema. Laboratory Data: Urine culture is growing gram-negative rods. Definite identification and sensitivi ty results pending. White count today is 5.1, hemoglobin 10.8, platelets 154. Sodium 140, potassium 4.1, chloride 109, bicarb 26, BUN 10, creatinine 0.74, glucose 93. Liver function tests unremarkabl e. Lipase 167. Impression: 1.Urinary tract infection. 2.Chronic anticoagulation therapy. 3.Hypertension. Plan: The patient is on Eliquis 5 mg 2 times a day. We will continue that and she was complaining o f SCD being uncomfortable on her leg and we will discontinue that since she is already on oral antico agulation therapy. We will continue current meropenem. Await on the urine culture results. Once fi nal report is available then we will decide appropriate antibiotic choice that she can be discharged to go home with. Continue other current home medications. I will see her tomorrow for followup. Ambulation wa s encouraged in the room. YOLY/MODL Voice ID: [id number] Report ID: [id number]
[2021-04-02] MEDS: ASPIRIN EC 81 MG TAB PO SCH (21:05)
[2021-04-03] MEDS: Meropenem 1 GM/100 ML BAG IV SCH ×2 (04:00→16:04)
[2021-04-03] MEDS: LIOTHYRONINE SOD 5 MCG TAB PO SCH (05:48)
[2021-04-03] MEDS: LEVOTHYROXINE SOD 0.112 MG TAB PO SCH (05:48)
[2021-04-03] MEDS: TIKOSYN 250 MCG PO SCH ×2 (09:50→21:00)
[2021-04-03] MEDS: icosapent ethyL 1 GM CAP PO SCH ×2 (09:52→21:25)
[2021-04-03] MEDS: APIXABAN 5 MG TABLET PO SCH ×2 (09:53→21:26)
[2021-04-03] MEDS: DILTIAZEM HCL 120 MG SR CAP PO SCH (09:53)
[2021-04-03] MEDS: AMLODIPINE 5 MG TAB PO SCH (09:53)
[2021-04-03] MEDS: cloNIDine HCL 0.1 MG TAB PO SCH ×2 (09:53→21:27)
[2021-04-03] MEDS: HYDRALAZINE HCL 25 MG TABLET PO SCH ×2 (09:54→21:27)
[2021-04-03] MEDS: FUROSEMIDE 40 MG TABLET PO SCH ×2 (09:54→16:05)
[2021-04-03] MEDS: GABAPENTIN 100 MG CAP PO SCH ×3 (09:54→21:27)
[2021-04-03] MEDS: DOXAZOSIN 2 MG TAB PO SCH (09:54)
[2021-04-03] MEDS: LOSARTAN POTASSIUM 50 MG TABLET PO SCH ×2 (09:54→21:00)
[2021-04-03] MEDS: VITAMIN D 5,000 UNIT CAP PO SCH (09:54)
[2021-04-03] MEDS: PANTOPRAZOLE 40MG TABLET PO SCH ×2 (09:54→21:26)
[2021-04-03] MEDS: POTASSIUM CL SA 10 MEQ TAB PO SCH ×3 (09:55→21:26)
[2021-04-03] MEDS: ASPIRIN EC 81 MG TAB PO SCH (21:26)
[2021-04-04] MEDS: Meropenem 1 GM/100 ML BAG IV SCH (03:56)
[2021-04-04] MEDS: LIOTHYRONINE SOD 5 MCG TAB PO SCH (05:31)
[2021-04-04] MEDS: LEVOTHYROXINE SOD 0.112 MG TAB PO SCH (05:31)
[2021-04-04] MEDS: POTASSIUM CL SA 10 MEQ TAB PO SCH ×2 (08:54→14:09)
[2021-04-04] MEDS: icosapent ethyL 1 GM CAP PO SCH (08:54)
[2021-04-04] MEDS: cloNIDine HCL 0.1 MG TAB PO SCH (08:54)
[2021-04-04] MEDS: DOXAZOSIN 2 MG TAB PO SCH (08:55)
[2021-04-04] MEDS: GABAPENTIN 100 MG CAP PO SCH ×2 (08:55→14:09)
[2021-04-04] MEDS: AMLODIPINE 5 MG TAB PO SCH (08:55)
[2021-04-04] MEDS: LOSARTAN POTASSIUM 50 MG TABLET PO SCH (08:56)
[2021-04-04] MEDS: HYDRALAZINE HCL 25 MG TABLET PO SCH (08:56)
[2021-04-04] MEDS: FUROSEMIDE 40 MG TABLET PO SCH ×2 (08:56→17:33)
[2021-04-04] MEDS: VITAMIN D 5,000 UNIT CAP PO SCH (08:56)
[2021-04-04] MEDS: DILTIAZEM HCL 120 MG SR CAP PO SCH (08:56)
[2021-04-04] MEDS: PANTOPRAZOLE 40MG TABLET PO SCH (08:56)
[2021-04-04] MEDS: APIXABAN 5 MG TABLET PO SCH (08:56)
[2021-04-04] MEDS: TIKOSYN 250 MCG PO SCH (08:57)
[2021-04-04 10:10] VITALS: O2SAT 95
[2021-04-04] MEDS ORDERED: Meropenem 1 GM/100 ML BAG IV SCH ×2 (16:00→18:00)
--- NOTE | 2021-04-04 17:01 | PN ---
Date of Progress Note: 04/03/2021 Subjective: The patient was seen for followup in the morning. She denies any complaints. No suprap ubic pain. No back pain. No dysuria. Denies any chest pain or shortness of breath. Objective: Vital Signs: Reviewed. HEENT: Unremarkable. Lungs: Clear to auscultation. Heart: Sounds normal. Abdomen: Soft. Bowel sounds normal. No guarding, rigidity, tenderness, or distention. Extremities: No leg edema. Impression: 1.Urinary tract infection, organism Escherichia coli, extended-spectrum beta-lactamase. 2.Hypertension. 3.Chronic anticoagulation therapy. Plan: We will continue current medication. Continue current antibiotic, which is meropenem. The pa tient was made aware of this resistant bacteria and need for IV antibiotics. PICC line was ordered. The patient told me that she will not be able to do IV antibiotics at home because of the cost and s he will have to come to hospital on outpatient basis 2 times a day for this IV antibiotics and I have asked nursing staff to communicate with the Social Service to make arrangements for this. YOLY/JAMIL Voice ID: [id number] Report ID: [id number]
[2021-04-04 18:09] VITALS: BP 128/54; TEMP 98.7
--- NOTE | 2021-04-04 20:46 | DS ---
Date of Discharge: 04/04/2021 Disposition: Discharged to go home. Physical Examination: HEENT: Unremarkable. Lungs: Clear to auscultation. Heart: Sounds normal. Abdomen: Soft. Bowel sounds normal. No guarding, rigidity, tenderness, or distention. Extremities: No leg edema. Laboratory Data: Upon admission, sodium 134, potassium 4, chloride 102, bicarb 24, BUN 11, creatinin e 0.8, glucose 106, liver function tests unremarkable, lipase 258. On 04/02/2021, sodium 140, potass ium 4.1, chloride 109, bicarb 26, BUN 10, creatinine 0.74, glucose 93, liver function tests unremarka ble, lipase 167. Upon admission, white count 6.3, hemoglobin 12, platelets 144. On 04/02/2021, whit e count 5.1, hemoglobin 10.8, platelets 154. Urinalysis was positive for nitrite, leukocyte esterase 3+. COVID-19 test negative. Urine culture grew E coli and it was ESBL. Hospital Course: Ms. You is a pleasant 80-year-old female patient, who was admitted to the [facility] after she came to emergency room with lower abdominal pain and dysuria. Please see devonte Clark for more information. After the patient was admitted to the hospital, she was started on IV huma penem and she has received this since the time of admission. Her urine culture grew gram-negative ro ds. Final report came back yesterday growing E coli and it is ESBL, sensitive to meropenem, so the p atient has been on appropriate antibiotics from the beginning. I did talk to the patient regarding P ICC line placement and then IV antibiotic therapy as outpatient. She informed me that due to cost, s he will not be able to do IV antibiotic therapy at home and she prefers to come to hospital 2 times a day for outpatient IV antibiotic therapy. PICC line was placed last night and Social Service has gi estefany us okay for discharge as arrangements has been completed by Social Service for the patient to com e to hospital for outpatient antibiotics 2 times a day for next 10 days. Final Diagnoses: 1.Urinary tract infection. 2.Paroxysmal atrial fibrillation. 3.Chronic anticoagulation therapy. 4.Hyponatremia. 5.Hypertension. 6.Hyperlipidemia. 7.Impaired fasting glucose. 8.Hypothyroidism. Discharge Medications And Instructions: 1.Continue all prior home medications. 2.The patient to come to hospital for next 10 days for outpatient IV antibiotic therapy using merope nem 1000 mg every 12 hours. 3.Follow up at my office on , which is April 08, 2021, around 11 a.m. YOLY/JAMIL Voice ID: [id number] Report ID: [id number]
--- NOTE | 2021-04-05 14:11 | RAD REPORT ---
EXAM DESCRIPTION: Chest Radiography COMPARISON: None. CLINICAL HISTORY: Picc line placement FINDINGS: A single AP view of the chest demonstrates a normal cardiomediastinal silhouette. A left P ICC line tip projects over the lower SVC. No pneumothorax or pleural effusion. No consolidation or pulmonary edema. Osseous structures are intact. IMPRESSION: The left PICC line tip projects over the lower SVC. Electronically signed by: Ruddy Dhaliwal MD 04/03/2021 11:51 PM CDT Due to temporary technical issues with the PACS/Fluency reporting system, reports are being signed by the in house radiologists without review as a courtesy to insure prompt reporting. The interpreting radiologist is fully responsible for the content of the report.
== END 2021-04-04 18:39 | disposition home or self-care (01) | DRG 690 ==
LOC: ER 23:56 → ERHOLD 04-01 02:22 → 2ND 04-01 06:16
PROVIDERS: ADMIT Internal Medicine; ATTEND Internal Medicine
PROC: 02HV33Z Insertion of Infusion Device into Superior Vena Cava, Percutaneous Approach (ICD-10-PCS; principal; 2021-04-03)
DX: N39.0 Urinary tract infection, site not specified (principal); Z16.12 Extended spectrum beta lactamase (ESBL) resistance; E87.1 Hypo-osmolality and hyponatremia; B96.20 Unspecified Escherichia coli [E. coli] as the cause of diseases classified elsewhere; I48.0 Paroxysmal atrial fibrillation; Z79.01 Long term (current) use of anticoagulants; I10 Essential (primary) hypertension; E78.5 Hyperlipidemia, unspecified; E03.9 Hypothyroidism, unspecified; Z20.822 Contact with and (suspected) exposure to COVID-19
CPT/HCPCS: 36415; 36569; 71045; 74176; 76377; 80048; 80076; 81003; 83690; 83735; 83880; 84484; 85025; 85610; 87077; 87086; 87088; 87186; 93005; 96374; 96375; 99285; J2185; J7030; U0003

== ENCOUNTER 2021-04-23 08:15 | Day surgery (SDC) | payer OTHER, MEDICARE ==
[2021-04-23 14:20] VITALS: TEMP 97.2
[2021-04-23 14:21] VITALS: BMI 43.0
[2021-04-23 14:24] VITALS: BP 160/62; O2SAT 98
== END 2021-04-23 09:35 | disposition home or self-care (01) ==
LOC: DS 08:15
PROVIDERS: ATTEND Internal Medicine
PROC: 05PY33Z Removal of Infusion Device from Upper Vein, Percutaneous Approach (ICD-10-PCS; principal; 2021-04-23)
DX: N39.0 Urinary tract infection, site not specified (principal); Z16.12 Extended spectrum beta lactamase (ESBL) resistance

== ENCOUNTER 2021-05-31 11:45 | Day surgery (SDC) | payer OTHER, MEDICARE ==
--- NOTE | 2021-05-28 13:46 | RAD REPORT ---
EXAM DESCRIPTION: RAD - Chest Pa And Lat (2 Views) - 05/28/2021 1:30 pm CLINICAL HISTORY: pre op Chest pain. COMPARISON: <Comparisons> FINDINGS: The lungs are clear. The heart is mildly enlarged in size. No displaced fractures.
[2021-05-28 15:17] LABS: Absolute Lymphocytes (CBC) 1.8 K/uL (0.7-4.9); Basophils % 0.4 % (0-1.3); Hematocrit 39.5 % (36.0-45.0); Lymphocytes % 29.8 % (15.3-44.8); MPV 8.1 fL (7.6-11.3); RBC Red Blood Cell Count 4.38 M/uL (3.86-4.86)
[2021-05-28 15:22] LABS: Potassium 3.8 mmol/L (3.5-5.1); Protime INR 1.3
[2021-05-31] MEDS ORDERED: HEPA 1000U/500MLS 2,000 UNIT/1,000 ML BAG IV ONE (11:58)
[2021-05-31] MEDS ORDERED: NA CHLORIDE 0.9% 500 ML ONE (12:49)
[2021-05-31] MEDS ORDERED: ATROPINE SULF 1 MG/10 ML SYR IV ONE (13:41)
[2021-05-31] MEDS ORDERED: VERAPAMIL HCL 10 MG/4 ML VIAL IV ONE (13:41)
[2021-05-31] MEDS ORDERED: HEPARIN 5000 UNIT/ML 1 ML VIAL ONE (13:41)
[2021-05-31] MEDS ORDERED: MIDAZOLAM HCL 2 MG/2 ML INJ ONE (13:41)
[2021-05-31] MEDS ORDERED: HEPARIN 10,000 UNIT/10 ML VIAL IV ONE (13:41)
[2021-05-31] MEDS ORDERED: FENTANYL CITR 100 MCG/2 ML ONE (13:41)
[2021-05-31] MEDS ORDERED: REGADENOSON 0.4 MG/5 ML SYR IV ONE (14:03)
[2021-05-31 14:19] VITALS: TEMP 97.1
--- NOTE | 2021-05-31 15:27 | OP ---
Date of Procedure: 05/31/2021 Surgeon: BASIA FARFAN Procedures Performed: 1.FFR of the ostial proximal LAD, moderate disease, value of 0.87 which is not significant. 2.IFR of moderate mid OM1 disease with value of 0.95 which is not significant. 3.IFR of the distal left circumflex focal moderate stenosis, value of 0.97 which is not significant. Access: Right radial artery 6-Northern Irish closed with TR band. Complications: None. Indication: No coronary artery disease with chest pain. Anesthesia: Total sedation time was 40 minutes. Description Of Procedure: After risks, benefits, and alternatives were explained, the patient agreed to the procedure and signed informed consent. The patient was brought to the cardiac catheterizatio n laboratory, prepped and draped in usual sterile fashion. Then, we accessed right radial artery usi ng pediatric micropuncture kit and placed a 6-Northern Irish Slender sheath. Then, I took a 6-Northern Irish EBU 3.5 guide into the aortic root, engaged the left main. Then, I took the Comet wire into the aortic root . Pressures were equalized. Systemic heparin was given to assure ACT level above 250 throughout the procedure and then I took the Comet wire through the left circumflex into the distal portion passing the area of stenosis. IFR was done and it was 0.97, which is insignificant. We then pulled back to the aortic root. There was no drift. Then advanced the wire again to the OM1 passing the area of s tenosis GFR. IFR was done and it was 0.95, which was insignificant. Then, pulled back the wire into the aortic root. There was no drift. Then, I equalized again and then went back through the LAD, p ast the area of stenosis and we gave Lexiscan and did FFR of the proximal LAD and it was insignifican t value of 0.87 indicating that all lesions are moderate in severity and none of them required interv ention. Then pulled the wires and then took final angiogram. There was no complication. Took the g uide out and the sheath was removed and placed TR band with good hemostasis. Findings: 1.Left main; large, normal. 2.LAD; ostial to proximal 60% stenosis with negative FFR of 0.87, makes the lesion insignificant. 3.Left circumflex normal for the most part, except the distal portion has a focal area that is calci fied 60% stenosis. IFR was negative at 0.95. Then, the proximal OM1 branch has an area of stenosis 60% and negative IFR value of 0.97. Conclusion: Moderate coronary artery disease of LAD, OM1, and left circumflex. All were not signifi cant by FFR and IFR. Recommendations: 1.Medical management. 2.Stress test evaluation once a year to evaluate the progress of the above lesions. /MODL Voice ID: [id number] Report ID: [id number]
[2021-05-31 16:42] VITALS: O2SAT 97
[2021-05-31 18:26] VITALS: BP 150/46
== END 2021-05-31 18:28 | disposition home or self-care (01) ==
LOC: CCL 11:45
PROVIDERS: ATTEND Internal Medicine
DX: I25.10 Atherosclerotic heart disease of native coronary artery without angina pectoris (principal); I11.0 Hypertensive heart disease with heart failure; I50.31 Acute diastolic (congestive) heart failure; I48.0 Paroxysmal atrial fibrillation; I65.23 Occlusion and stenosis of bilateral carotid arteries; E78.2 Mixed hyperlipidemia; J44.1 Chronic obstructive pulmonary disease with (acute) exacerbation; F34.1 Dysthymic disorder; E03.9 Hypothyroidism, unspecified; H25.9 Unspecified age-related cataract; E66.01 Morbid (severe) obesity due to excess calories; Z68.41 Body mass index [BMI] 40.0-44.9, adult; Z86.73 Personal history of transient ischemic attack (TIA), and cerebral infarction without residual deficits; Z88.8 Allergy status to other drugs, medicaments and biological substances; Z20.822 Contact with and (suspected) exposure to COVID-19
CPT/HCPCS: 85025; 80048; 36415; 85610; 85347; 85730; 71046; 93454; 93571; 93572 ×2; U0003; C1893; J1644 ×2; J2250; J3010; J2785; J7040

== ENCOUNTER 2021-09-07 09:12 | Inpatient (IN) | payer OTHER, MEDICARE ==
--- OUTSIDE RECORDS SUMMARY | 2021-09-07 09:16 | XMS REPORT | Continuity of Care Document ---
:1940 Author Organization [facility] t Address [address] [place] [address] Care Team Providers Name Role Phone FAHED Attending Clinician Unavailable MD RUDOLPH Attending Clinician Unavailable HANDY Attending Clinician Unavailable HANDY Attending Clinician Unavailable RUDOLPH Admitting Clinician Unavailable MD RUDOLPH Admitting Clinician Unavailable Problems Condition Condition Condition Status Onset Resolution Last Treating Co mments Source Name Details Category Date Date Treatment Clinician Date Encounter Encounter Problem Active Uni vers for for [place] administ[place] administra [place] of [place] of Physici COVID-19 COVID-19 ans vaccine vaccine History of History of Problem Resolve Univers mitral mitral d ity of valve valve [place] prolapse prolapse Physic i ans History of [...] ents Source Name Type Date Date Clinician Nembutal Allergy Active Univers to drug ity of (finding [place] ) Physici ans Family History Family Member Diagnosis Comments Start Date Stop Date Source Mother Family history of [facility] ity of [place] pancreatic cancer Physici ans Father Family history of [facility] ity of [place] cardiac disorder Physicia ns Social History Smoking Status Start Date Stop Date Source Ex-smoker (finding) [place] o f [place] Physicians Medications Ordered Filled Start Stop Current Ordering Indication Dosage Frequency Signature Comments Components Source Medication Medication Date Date Medication? Clinician (SIG) Name Name amLODIPine amLODIPine 2019- Yes MUNACHI 1 QD TAKE 1 Univers Besylate 5 Besylate 5 9-25 [place] TABLET ity of MG Oral MG Oral 00:00: [employer] DAILY. [place] Tablet Tablet 00 Physici ans Gabapentin Gabapentin Yes Take 1 Univers 100 MG Oral 100 MG Oral 9-23 tablet AM ity of Capsule Capsule 00:00: , 200 in Alexandre as 00 the Physici afternoon, ans 200 in the evening clonazePAM clonazePAM Yes 1 QD TAKE 1 Univers 1 [...] CAPSULE ity of Capsule Capsule 00:00: DAILY [place] Delayed Delayed 00 EVERY Physici Release Release [...] DAILY. [place] Tablet Tablet 00 Physici ans Levothyroxi Levothyroxi 2017- Yes 1 QD TAKE 1 Univers ne Sodium ne Sodium 0-17 TABLET ity of 112 MCG 112 MCG 00:00: DAILY. [place] Oral Tablet Oral Tablet 00 P hysici ans Edarbyclor Edarbyclor 2016- Yes MUNACHI 1 QD TAKE 1 Univers 40-25 MG 40-25 MG 4-20 [place] TABLET BY ity of Oral Tablet Oral Tablet 00:00: [employer]PL[employer] MOUTH ONCE [place] 00 DAILY Physici ans Pravastatin Pravastatin Yes MUNACHI 1 QD TAKE 1 Univers Sodium 40 Sodium 40 7-31 [place] TABLET i ty of MG Oral MG Oral 00:00: AIRPLANE [employer] DAILY. [place] Tablet Tablet 00 Physici ans Viteyes Viteyes Yes MUNACHI 1 QD TAKE 1 Un teresa Complete Complete 3-17 [place] CAPSULE it y of Oral Oral 00:00: AIRPL[employer] DAILY. [place] Capsule Capsule 00 Physici ans Liothyronin Liothyronin Yes MUNACHI 1 QD TAKE 1 Univers e Sodium 5 e Sodium 5 3-17 [place] TABLET ity of MCG Oral MCG Oral 00:00: AIRPLANE [employer] DAILY. [place] as Tablet Tablet 00 Physici ans Doxazosin Doxazosin Yes MUNACHI 1 Q0.5D TAKE 1 Univers Mesylate 4 Mesylate 4 3-17 [place] TABLET ity of MG Oral MG Oral 00:00: AIRPL[employer] TWICE [place] Tablet Tablet 00 DAILY Physici ans Dofetilide Dofetilide Yes MUNACHI 1 capsule Univers 500 MCG 500 MCG [place] daily ity of Oral Oral [employer] [place] Capsule Capsule Physici ans Vitamin D-3 Vitamin D-3 Yes 1 tablet Univers CAPS CAPS daily ity of [place] Physici ans Vascepa 1 Vascepa 1 Yes MUNACHI 1 capsule Univers GM Oral GM Oral [place] daily ity of Capsule Capsule [employer] [place] Physici ans Immunizations Ordered Immunization Filled Immunization Date Status Commen ts Source Name Name [facility] 2020-11-28 Completed Universit y of COVID-19 Vacc 30 14:02:00 [place] Ph ysicians MCG/0.3ML Intramuscular Suspension Vital Signs Vital Name Observation Time Observation Value Comments Source Systolic blood 2020-07-17 146 mm[Hg] Location: [facility]; [place] of pressure 11:51:00 Position: [place] Physician s Standing Diastolic blood 2020-07-17 67 mm[Hg] Location: LLE; [place] of pressure 11:51:00 Position: [place] Physician s Standing Heart Rate 2020-07-17 65 /min [facility] 11:51:00 [place] Physician s BP Systolic 2019-07-23 152 mm[Hg] Location: LUE; [facility] 11:51:00 Position: [place] Physician s Sitting BP Diastolic 2019-07-23 76 mm[Hg] Location: [place]; [facility] 11:51:00 Position: [place] Physician s Sitting Height 2019-07-23 62 [in_us] University 11:51:00 [place] Physician s Weight 2019-07-23 248.5 [lb_av] [facility] 11:51:00 [place] Physician s Body Mass Index 2019-07-23 45.45 kg/m2 University o f Calculated 11:51:00 [place] Physician s Heart Rate 2019-07-23 66 /min Location: L [facility] 11:51:00 Brachial [place] Physician s Artery; Procedures Procedure Date / Time Performing Clinician Source Performed History of Hysterectomy [facility] Physicians History of Appendectomy [facility] Physicians History of Bladder Surgery Unive [facility] Physicians History of Neuroplasty [facility] Decompression Median Nerve Physi cians At [place] History of Esophagogastric Unive [facility] Fundoplasty [place] [facility] Fundoplication History of Knee Surgery [facility] Right Physicians Encounters Start End Encounter Admission Attending Care Care Encounter Source Date/Time Date/Time Type Type Clinicians Facility Department ID 2021-01-07 2021-01-10 Inpatient PAZ GALDAMEZ [facility] [id number] [place] 00:00:00 00:00:[address] 2021-01-01 2021-01-01 Outpatient PAZ GALDAMEZ [facility] [id number] [place] 00:00:00 00:00:[address] 2020-07-17 2020-07-17 [facility] - [id number] [facility] 11:30:00 11:30:00 t; LEO MURRELL [place] y of LEO, [facility] Physici ans 2019-07-23 2019-07-23 [facility] - [id number] Univers 11:30:00 11:30:00 [place] y of [facility] [employer] [facility] Physici ans 2018-08-08 2018-08-08 Appointmen [facility] [id number] Univers 11:30:00 11:30:00 t; LEO MURRELL, it y of [facility] Physici ans 2017-08-08 2017-08-08 Appointmen BLUE MURRELL [id number] Univers 11:30:00 11:30:00 t; LEO MURRELL, LEGAL DIRECTOR ity of [place], [place] LEGAL DIRECTOR Physici ans Results Test Description Test Time Test Comments Results Result Comments Source SARS-CoV-2 (COVID-19) RNA [Presence] in Respiratory sp ecimen by 2021-01-01 18:46:21 NEHEMIAS with probe detection Test Item Value Reference Range Interpretation Comme nts SARS-CoV-2 (COVID-19) RNA [Presence] in Respiratory Not detected No t-Detected specimen by NEHEMIAS with probe detection (test code = 65820-7)
[2021-09-07 09:48] LABS: Urine Blood Negative (Negative); Urine Glucose Negative (Negative); Urine Protein Negative (Negative)
[2021-09-07 10:07] LABS: Absolute Lymphocytes (CBC) 1.3 K/uL (0.7-4.9); Basophils % 0.6 % (0-1.3); Hematocrit 39.6 % (36.0-45.0); Lymphocytes % 27.7 % (15.3-44.8); MPV 7.9 fL (7.6-11.3); RBC Red Blood Cell Count 4.48 M/uL (3.86-4.86)
[2021-09-07 10:16] LABS: Protime INR 1.38
[2021-09-07 10:22] LABS: Urine Bacteria <20 /HPF (<20); Urine RBC NONE SEEN /HPF (NONE SEEN)
[2021-09-07 10:24] LABS: Potassium 3.4 mmol/L (3.5-5.1)
--- NOTE | 2021-09-07 11:21 | RAD REPORT ---
EXAM DESCRIPTION: CT - Head Brain Wo Cont - 09/07/2021 11:01 am CLINICAL HISTORY: Slurred speech COMPARISON: 2014 TECHNIQUE: Computed axial tomography of the head was obtained. IV contrast was not requested. All CT scans are performed using dose optimization technique as appropriate and may include automated exposure control or mA/KV adjustment according to patient size. FINDINGS: An intracranial bleed is not seen . The ventricles are normal in caliber. No extra-axial fluid collection is noted. 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 Fluid within the sinuses/ mastoids is not seen. IMPRESSION: No acute intracranial abnormality is seen. If patient's symptoms persist MRI of the bra in would be recommended.
--- NOTE | 2021-09-07 11:26 | RAD REPORT ---
EXAM DESCRIPTION: CTHead angio09/07/2021 11:01 am CLINICAL HISTORY: Slurred speech COMPARISON: None TECHNIQUE: CT angiogram of the head was obtained. 3D MIPS reconstruction performed. All CT scans are performed using dose optimization technique as appropriate and may include automated exposure control or mA/KV adjustment according to patient size. FINDINGS: Occlusion of the distal left internal carotid artery. The left anterior cerebral and left middle cerebral arteries are unremarkable. Mild to moderate calcified plaque within the right carotid artery. Right anterior cerebral, right middle cerebral and right and left posterior cerebral arteries are unr emarkable. origin right posterior cerebral artery. 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 Supply to the l eft anterior and middle cerebral arteries presumably by the anterior communicating artery
--- NOTE | 2021-09-07 11:41 | ER ---
Nurse's Notes [facility] Name: Kristal You Age: 81 yrs Sex: Female : 1940 Arrival Date: 09/07/2021 Time: 09:23 Bed 16 Private MD: Diagnosis: Slurred speech;Transient cerebral ischemic attack, unspecified Presentation: 09/07 09:24 Chief complaint: EMS states: "She had a hard time speaking last night, but refused transportation because once EMS got there she was feeling better. Home Health nurse checked on her today and called her PCP who then told her to come to ED for evaluation. Pt's only complaint at this time is low back pain that radiates towards R hip. Pt reports that this pain has been ongoing for months. Also feels like she may need to be checked for a UTI.". Coronavirus screen: Client denies travel out of the [place] in the last 14 days. Ebola Screen: Patient denies exposure to infectious person. Patient denies travel to an Ebola-affected area in the 21 days before illness onset. Initial Sepsis Screen: Does the patient meet any 2 criteria? No. Patient's initial sepsis screen is negative. Does the patient have a suspected source of infection? No. Patient's initial sepsis screen is negative. Risk Assessment: Do you want to hurt yourself or someone else? Patient reports no desire to harm self or others. Onset of symptoms is unknown. 09:24 Method Of Arrival: EMS: [facility] 09:24 Acuity: LUCINA 3 ss Historical: - Allergies: 09:30 LETY INHIBITORS; ss 09:30 HYDRALAZINE; ss - PMHx: 09:30 Asthma; Atrial Fib; CVA; Hypertension; Hypothyroidism; UTI; ss - Immunization history:: Client reports receiving the 2nd dose of the Covid vaccine. - Social history:: Smoking status: Patient denies any tobacco usage or history of. - Family history:: not pertinent. - Hospitalizations: : No recent hospitalization is reported. Screenin:00 Abuse screen: Denies threats or abuse. Denies injuries from another. Nutritional ss screening: No deficits noted. Tuberculosis screening: Never had TB. Fall Risk None identified. Assessment: 10:00 General: Appears in no apparent distress. comfortable, Behavior is calm, cooperative, ss Denies fever, feeling ill, fatigue, chills. Pain: Complains of pain in lumbar area Pain radiates to r hip Pain currently is 2 out of 10 on a pain scale. at worst was 8 out of 10 on a pain scale. Neuro: Level of Consciousness is awake, alert, obeys commands, Oriented to person, place, time, situation, Director Check are equal bilaterally Moves all extremities. Full function Gait is steady, Speech is normal, Facial symmetry appears normal, Pupils are PERRLA. Cardiovascular: Pulses are palpable in right radial artery, right posterior tibial artery, left radial artery and left posterior tibial artery. Respiratory: Airway is patent Respiratory effort is even, unlabored, Respiratory pattern is regular, symmetrical, Breath sounds are clear bilaterally. Denies cough, shortness of breath. GI: Patient currently denies diarrhea, nausea, vomiting. : Denies burning with urination, incontinence, urinary frequency. EENT: Nares are clear. Derm: Skin is intact, is healthy with good turgor, Skin is pink, warm \\T\\ dry. normal. 10:23 Reassessment: Spoke with Dr. Al's office to obtain COVID test results from yesterday. [employer] states that they do not yet have results and should have them by later today/ tomorrow. Vital Signs: 09:24 BP 190 / 90; Pulse 97; Resp 17; Temp 97.5(TE); Pulse Ox 98% on R/A; Weight 110.68 kg; ss Pain 2/10; 11:11 BP 152 / 101; Pulse 79; Resp 17; Pulse Ox 96% on R/A; jt3 12:00 BP 152 / 101; Pulse 76; Resp 18; Pulse Ox 98% ; jt3 13:29 BP 182 / 67; Pulse 80; Resp 17; Pulse Ox 98% ; jt3 ED Course: 09:23 Patient arrived in ED. 09:24 Roger Samuels MD is Attending Physician. rn 09:30 Triage completed. 09:30 Chente Majano RN is Primary Nurse. jt3 09:30 Arm band placed on right wrist. ss 09:49 Urine Culture Sent. 5 09:49 Urine Microscopic Only Sent. mh5 09:50 Inserted saline lock: 22 gauge in right forearm, using aseptic technique. Blood ss collected. Patient maintains SpO2 saturation greater than 95% on room air. 10:00 Patient has correct armband on for positive identification. Bed in low position. Call light in reach. Side rails up X2. panel monitor on. Pulse ox on. NIBP on. 10:08 Warm blanket given. [facility] 10:08 Initial lab(s) drawn, by ED staff, sent to lab. Urine collected: clean catch specimen, [facility] clear, EKG done. 10:09 Lactate Sent. 5 10:09 Lactate Sent. 5 10:09 Procalcitonin Sent. 5 10:09 Blood Culture Adult (2) Sent. 5 10:09 Ptt, Activated Sent. 5 10:09 PT-INR Sent. 5 10:09 Basic Metabolic Panel Sent. 5 10:09 CBC with Diff Sent. 5 11:01 CT Head Brain wo Cont In Process Unspecified. EDMS 11:01 CT Head Angio In Process Unspecified. EDFL 11:29 SARS-COV-2 RT PCR Sent. 5 11:29 COVID-19 SARS RT PCR (Document "Date of Onset" if Symptomatic) Sent. 5 11:29 COVID swab sent to lab. [facility] 11:40 Khadijah Gurrola MD is Hospitalizing Provider. rn Administered Medications: 11:52 Drug: Aspirin Chewable Tablet 324 mg Route: PO; jt3 Outcome: 11:41 Decision to Hospitalize by Provider. rn 15:04 Patient left the ED. ss 15:08 Admitted to Tele accompanied by tech. jt3 15:08 Condition: stable 15:08 Instructed on the need for admit, Report given KARIE Arshad regarding admission report. Signatures: Dispatcher [employer] Roger Grant MD MD rn Smirch, Shelby, RN RN ss Martinez, Maria [facility] Chente Majano RN RN jt3 Corrections: (The following items were deleted from the chart) 09:31 09:30 Allergies: namutol; ss
--- NOTE | 2021-09-07 11:41 | EDPHYS ---
Physician Documentation [facility] Name: Kristal You Age: 81 yrs Sex: Female : 1940 Arrival Date: 09/07/2021 Time: 09:23 Bed 16 Private MD: ED Physician Roger Samuels HPI: 09/07 09:29 This 81 yrs old Female presents to ER via Unassigned with complaints of Back rn Pain, S/S of Possible Stroke. 09:29 The patient presents with pain that is chronic, with no known mechanism of injury. The rn symptoms are located in the low back. Onset: The symptoms/episode began/occurred at an unknown time. The pain radiates to the right leg. Associated signs and symptoms: Pertinent negatives: abdominal pain, fever, incontinence, weakness. Modifying factors: The patient symptoms are alleviated by nothing, the patient symptoms are aggravated by any movement. Severity of symptoms: At their worst the symptoms were mild, in the emergency department the symptoms are unchanged. The patient has experienced similar episodes in the past, chronically. The patient has not recently seen a physician. Patient states here for 2 reasons. has chronic back pain that radiates down to right leg and has been bothering her lately. Cannot tell me when it started getting worse. Denies any fall or direct injury. Also was directed to come here by home health after an episode last night that lasted a few minutes where she had difficulty getting words out. States lasted 5 to 10 minutes and went away on its own. was concerned was having a mini stroke as her used to have similar problems. Currently no difficulty speaking and at baseline neurologically. Denies any head injury. Denies any chest pain or shortness of breath or syncope.. Historical: - Allergies: 09:30 LETY INHIBITORS; ss 09:30 HYDRALAZINE; ss - PMHx: 09:30 Asthma; Atrial Fib; CVA; Hypertension; Hypothyroidism; UTI; ss - Immunization history:: Client reports receiving the 2nd dose of the Covid vaccine. - Social history:: Smoking status: Patient denies any tobacco usage or history of. - Family history:: not pertinent. - Hospitalizations: : No recent hospitalization is reported. ROS: 09:29 Constitutional: Negative for fever, chills, and weight loss, Eyes: Negative for injury, rn pain, redness, and discharge, Neck: Negative for injury, pain, and swelling, Cardiovascular: Negative for chest pain, palpitations, and edema, Respiratory: Negative for shortness of breath, cough, wheezing, and pleuritic chest pain, Abdomen/GI: Negative for abdominal pain, nausea, vomiting, diarrhea, and constipation, Back: Negative for injury : Negative for injury, bleeding, discharge, and swelling, MS/Extremity: Negative for injury and deformity, Skin: Negative for injury, rash, and discoloration, Neuro: Negative for headache, weakness, numbness, tingling, and seizure. Exam: 09:29 Constitutional: This is a well developed, well nourished patient who is awake, alert, rn and in no acute distress. Head/Face: Normocephalic, atraumatic. Eyes: Periorbital areas with no swelling, redness, or edema. Cardiovascular: Regular rate and rhythm. No pulse deficits. Respiratory: No increased work of breathing, no retractions or nasal flaring. Abdomen/GI: Soft, non-tender Back: No spinal tenderness. No costovertebral tenderness. Full range of motion. Skin: Warm, dry MS/ Extremity: Pulses equal, no cyanosis. Neurovascular intact. Full, normal range of motion. Equal circumference. Neuro: Awake and alert, GCS 15, oriented to person, place, time, and situation. Cranial nerves II-XII grossly intact. Motor strength 5/5 in all extremities. Sensory grossly intact. Cerebellar exam normal. 10:51 ECG was reviewed by the Attending Physician. rn Vital Signs: 09:24 BP 190 / 90; Pulse 97; Resp 17; Temp 97.5(TE); Pulse Ox 98% on R/A; Weight 110.68 kg; ss Pain 2/10; 11:11 BP 152 / 101; Pulse 79; Resp 17; Pulse Ox 96% on R/A; jt3 12:00 BP 152 / 101; Pulse 76; Resp 18; Pulse Ox 98% ; jt3 13:29 BP 182 / 67; Pulse 80; Resp 17; Pulse Ox 98% ; jt3 MDM: 09:24 Patient medically screened. rn 11:39 Differential diagnosis: TIA, metabolic derangement, UTI, dehydration. Data reviewed: rn vital signs, nurses notes, lab test result(s), EKG, radiologic studies, CT scan, and as a result, I will admit patient. Counseling: I had a detailed discussion with the patient and/or guardian regarding: the historical points, exam findings, and any diagnostic results supporting the discharge/admit diagnosis, lab results, radiology results, the need for further work-up and treatment in the hospital. Response to treatment: the patient's symptoms have markedly improved after treatment, and as a result, I will admit patient. Admission orders: after a detailed discussion of the patient's condition and case, the admit orders are written by me. ED course: Consulted with Dr. Gurrola, will admit with neuro consult and requests cardiology consultation as well. . 09/07 09:25 Order name: CBC with Diff; Complete Time: 10:54 09/07 09:25 Order name: Basic Metabolic Panel; Complete Time: 10:54 09/07 09:25 Order name: Urine Culture 09/07 09:25 Order name: Urine Microscopic Only; Complete Time: 10:54 09/07 09:26 Order name: PT-INR; Complete Time: 10:54 09/07 09:26 Order name: Ptt, Activated; Complete Time: 10:54 09/07 09:25 Order name: CT Head Brain wo Cont; Complete Time: 11:35 09/07 09:26 Order name: Blood Culture Adult (2) 09/07 09:26 Order name: Procalcitonin; Complete Time: 11:35 09/07 09:48 Order name: Urine Dipstick-Ancillary; Complete Time: 09:57 EDMD 09/07 09:54 Order name: Lactate bd 09/07 09:55 Order name: Lactate; Complete Time: 10:54 [facility] 09/07 10:26 Order name: COVID-19 SARS RT PCR (Document "Date of Onset" if Symptomatic) ss 09/07 10:27 Order name: SARS-COV-2 RT PCR EDMD 09/07 09:25 Order name: IV Start; Complete Time: 10:00 rn 09/07 09:25 Order name: Urine Dipstick-Ancillary (obtain specimen); Complete Time: 09:49 rn 09/07 09:25 Order name: CT Head Angio; Complete Time: 11:35 rn 09/07 09:26 Order name: EKG; Complete Time: 09:26 rn 09/07 09:26 Order name: EKG - Nurse/Tech; Complete Time: 10:09 rn 09/07 09:26 Order name: Cardiac monitoring; Complete Time: rn 09/07 09: Order name: O2 Sat Monitoring; Complete Time: : rn EC:51 Rate is 84 beats/min. Rhythm is regular. QRS [place] is Normal. SD interval is prolonged rn at 224 msec. QRS interval is normal. QT interval is normal. No Q waves. T waves are Normal. No ST changes noted. Clinical impression: NSR w/ Non-specific ST/T Changes and 1st degree heart block. Interpreted by me. Reviewed by me. Administered Medications: 11:52 Drug: Aspirin Chewable Tablet 324 mg Route: PO; jt3 Disposition Summary: 09/07/21 11:41 Hospitalization Ordered Hospitalization Status: Observation rn Provider: Khadijah Gurrola rn Location: Telemetry/MedSurg (observation) rn Condition: Stable rn Problem: new rn Symptoms: have improved rn Bed/Room Type: Standard rn Room Assignment: 228(09/07/21 13:15) bd Diagnosis - Slurred speech rn - Transient cerebral ischemic attack, unspecified rn Forms: - Medication Reconciliation Form rn - SBAR form rn Signatures: Dispatcher [employer] EDEricka Tony bd Roger Samuels MD MD rn Smirch, Shelby, RN RN Chente Majano RN RN jt3 Corrections: (The following items were deleted from the chart) 09:31 09:30 Allergies: namutol; ss ss 13:15 11:41 rn bd
[2021-09-07] MEDS ORDERED: ASPIRIN 81 MG CHEWABLE TABLET ONE (11:45)
[2021-09-07] MEDS ORDERED: ONDANSETRON 4 MG/2 ML VIAL IV PRN (16:58)
--- NOTE | 2021-09-07 19:59 | RAD REPORT ---
EXAM DESCRIPTION: MRI - Brain W/Wo Cont - 09/07/2021 7:17 pm CLINICAL HISTORY: TIA; dificulty with speech COMPARISON: MRA Head Wo Cont dated 09/07/2021; Head angio dated 09/07/2021 TECHNIQUE: Sagittal T1-weighted images were obtained along with PD/heavily T2-weighted and T2-FLAIR images. Axial DWI and ADC mapping sequences were also obtained along with coronal heavily T2-weighted images were obtained. Images were obtained with contrast. FINDINGS: No intracranial hemorrhage, mass or acute infarction. Remote left parietal lobe infarct. C hronic small vessel ischemic changes. No mass effect or midline shift. No hydrocephalus . Mastoid air cells and paranasal sinuses are clear. IMPRESSION: Remote left parietal lobe infarct. No acute intracranial abnormality.
--- NOTE | 2021-09-07 20:20 | RAD REPORT ---
EXAM DESCRIPTION: MRI - MRA Head Wo Cont - 09/07/2021 7:17 pm CLINICAL HISTORY: TIA, difficulty with speech COMPARISON: MRA Neck W/Wo Cont dated 09/07/2021; Brain W/Wo Cont dated 09/07/2021 FINDINGS: 3D noncontrast [id number]-ro-purxhn MR angiography of the [place] was performed. The left ICA is occluded along its intracranial course. The left MCA reconstitutes likely due to carmen ateral flow from the [place]. The right ICA is widely patent. The vertebral and basilar rebecca ry are patent as is the posterior cerebral arteries. type right NUCLEAR TECHNICIAN. The visualized dural venous sinuses appear patent. 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
--- NOTE | 2021-09-07 20:26 | RAD REPORT ---
EXAM DESCRIPTION: MRI - MRA Neck W/Wo Cont - 09/07/2021 7:17 pm CLINICAL HISTORY: TIA; dificulty with speech COMPARISON: No comparisonsNo comparisons FINDINGS: Contrast enhance 2D sniz-io-rparar MR angiography of the neck vessels was performed. Long segment occlusion of the left common carotid artery extending just beyond its origin to the dist al common carotid artery. There is a short-segment of reconstituted distal common carotid artery. The left internal carotid artery is occluded from its origin. It does not reconstitute. There is collate ral flow to the left external carotid artery. There are stenoses of the proximal aspect of both verte bral arteries. 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 The right perez tid system is widely patent. Question stenoses at the origins of both vertebral artery but they are otherwise widely patent.
[2021-09-07] MEDS: DOFETILIDE 500 MCG PO SCH (22:00)
[2021-09-07] MEDS ORDERED: ALBUTEROL INHALER 60 PUFF/8 GM IH SCH (22:00)
[2021-09-07] MEDS ORDERED: HOME MED 1 EA UNK (Budesonide/Formoterol Fumarate [Symbicort 160-4.5 Mcg Inhaler] 10.2 GM IH SCH (22:00)
[2021-09-07] MEDS: DOXAZOSIN 4 MG TAB PO SCH (22:00)
[2021-09-07] MEDS ORDERED: DOXAZOSIN 2 MG TAB ONE ×2 (22:04)
[2021-09-07] MEDS: ACETAMINOPHEN 500 MG TAB PO PRN (22:21)
[2021-09-07] MEDS: GABAPENTIN 100 MG CAP PO SCH (22:21)
[2021-09-07] MEDS: HYDRALAZINE HCL 25 MG TABLET PO SCH (22:22)
[2021-09-07] MEDS: APIXABAN 5 MG TABLET PO SCH (22:23)
[2021-09-07] MEDS: cloNIDine HCL 0.1 MG TAB PO SCH (22:23)
[2021-09-08 04:25] LABS: Absolute Lymphocytes (CBC) 1.3 K/uL (0.7-4.9); Basophils % 0.5 % (0-1.3); Hematocrit 34.6 % (36.0-45.0); Lymphocytes % 24.8 % (15.3-44.8); RBC Red Blood Cell Count 3.93 M/uL (3.86-4.86)
[2021-09-08 04:36] LABS: Albumin 2.9 g/dL (3.4-5.0); Bilirubin Total 0.3 mg/dL (0.2-1.0); Magnesium 2.2 mg/dL (1.8-2.4); Potassium 3.2 mmol/L (3.5-5.1); Protein, Total 6.6 g/dL (6.4-8.2)
--- NOTE | 2021-09-08 07:32 | HP ---
Date of Admission: 09/07/2021 Chief Complaint: Not able to speak. History Of Present Illness: This is an -srrz-zia pleasant female patient, who had a brief episode lasting for few minutes where she was not able to talk at all. She knew what to say, but wor ds would not come out of her mouth and this episode lasted for few minutes last night. She was advis ed to come to emergency room and she came in today instead of last night and after she was evaluated, she was admitted to the hospital with this TIA problem. She denies any headache. No tingling, numb ness of hands or legs. No weakness of extremities. She has not had any recurrent episode. Medications: List reviewed. Review of Systems: SECURITY PROGRAM MANAGER: As mentioned above. All other systems reviewed and negative. Allergies: TO LETY INHIBITOR. Social History: Prior history of smoking, not at present time. Use of alcohol, negative. Family History: Father had heart disease. Mother had pancreatic cancer. Sister had pancreatic canc er. Past Surgical History: Cholecystectomy, appendectomy, rectocele repair, hysterectomy, bladder suspen venessa, shoulder surgery, carpal tunnel surgery, and knee surgery. Past Medical History: Significant for hypertension, stroke, allergic rhinitis, hypothyroidism, impai red fasting glucose, hyperlipidemia, paroxysmal atrial fibrillation, hyponatremia, asthma. Physical Examination: Vital Signs: Temperature 97.5, pulse 97, respiratory rate 17, blood pressure 190/90, height 5 feet 7 inches, weight 244 pounds. General: Awake, alert, oriented, not in distress. HEENT: Head atraumatic, normocephalic. Conjunctivae nonerythematous. Sclerae white. Mouth, no thr ush or edema noted. Ears/Nose, no mass, lesion, discharge noted. Neck: Supple. No JVD, lymph nodes, bruit, thyromegaly noted. Lungs: Bilateral good equal air entry. Clear to auscultation. No rhonchi. No rales. Heart: Normal heart sounds, no murmur or gallop. Abdomen: Soft, bowel sounds normal. No guarding, rigidity, tenderness, mass, hepatosplenomegaly, dis tention, or bruit noted. Extremities: No leg edema. No calf tenderness. Skin: No rash, ulcer, cellulitis. Lymphatics: No lymph node enlargement in neck, supraclavicular, infraclavicular region. Neuro: No focal neurological deficit. Chest: Unremarkable. External Genitalia: Deferred. Rectal: Deferred. Laboratory Data: White count 4.6, hemoglobin 13.1, platelets 157. Sodium 144, potassium 3.4, chlori de 109, bicarb 26, BUN 8, creatinine 0.86, glucose 121. Lactic acid 1.6. Procalcitonin less than 0. 05. Urinalysis; 1+ leukocyte esterase and 5-10 WBC. COVID-19 test negative. Her CAT scan of the he ad was negative for any acute intracranial changes. Her MRI of brain showed remote left i nfarct. 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 Impression: 1.Transient ischemic attack. 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 3.Hypokalemia. 4.Hypertension. 5.Hyperlipidemia. 6.Paroxysmal atrial fibrillation. 7.Asthma. 8.Hypothyroidism. 9.Impaired fasting glucose. 10.Allergic rhinitis. Plan: Admit the patient to hospital for further evaluation and management of this problem. The wang ent is appropriate for observation. She is neurologically intact and stable at this point. There is no evidence of any neuro deficits. We will consult neurologist, Dr. Minaya and mouse breeder, Dr. Dunn. Home medications will be continued per order. I will see her tomorrow for followup. Detai ls and plan of treatment discussed with the patient. Her chronic anticoagulation therapy, Eliquis wi ll be continued and she takes Tikosyn for her atrial fibrillation and those medications will be kirby nued. Her urinalysis has shown some leukocyte esterase and small amount of WBC. She does have prior history of urinary tract infection and in fact in the past at some point she has required IV antibio tics for resistant bacteria, so we will follow up on the urine culture, but meanwhile start her on ce ftriaxone. YOLY/MODL Voice ID: [id number]
[2021-09-08] MEDS ORDERED: DOXAZOSIN 2 MG TAB ONE (07:56)
[2021-09-08] MEDS: DOFETILIDE 500 MCG PO SCH ×2 (08:30→20:45)
[2021-09-08] MEDS: APIXABAN 5 MG TABLET PO SCH ×2 (08:30→20:41)
[2021-09-08] MEDS: DOXAZOSIN 4 MG TAB PO SCH ×2 (08:30→20:39)
[2021-09-08] MEDS: HYDRALAZINE HCL 25 MG TABLET PO SCH ×3 (08:30→20:40)
[2021-09-08] MEDS: ASPIRIN EC 81 MG TAB PO SCH (08:30)
[2021-09-08] MEDS: PANTOPRAZOLE 40MG TABLET PO SCH ×2 (08:30→17:00)
[2021-09-08] MEDS: cloNIDine HCL 0.1 MG TAB PO SCH ×2 (08:30→20:40)
[2021-09-08] MEDS: ISOSORBIDE MONO SR 30 MG TAB PO SCH (08:30)
[2021-09-08] MEDS: CEFTRIAXONE 1,000 MG in NA CHLORIDE 0.9% 50 ML IVPB SCH ×2 (08:30→20:42)
[2021-09-08] MEDS: GABAPENTIN 100 MG CAP PO SCH ×3 (08:30→20:40)
[2021-09-08] MEDS: POTASSIUM CL SA 10 MEQ TAB PO SCH ×3 (08:30→20:40)
[2021-09-08] MEDS: FUROSEMIDE 40 MG TABLET PO SCH ×2 (08:30→20:41)
[2021-09-08] MEDS: LOSARTAN POTASSIUM 50 MG TABLET PO SCH ×2 (08:30→20:40)
[2021-09-08] MEDS: DILTIAZEM HCL 120 MG SR CAP PO SCH (08:30)
[2021-09-08] MEDS: LEVOTHYROXINE SOD 0.1 MG TAB PO SCH (08:30)
[2021-09-08] MEDS: LIOTHYRONINE SOD 5 MCG TAB PO SCH (08:30)
[2021-09-08] MEDS ORDERED: CEFTRIAXONE 1000 MG/VIAL ONE ×2 (08:48→20:20)
[2021-09-08] MEDS ORDERED: NA CHLORIDE 0.9% 50 ML ONE ×2 (08:48→20:25)
[2021-09-08] MEDS ORDERED: ASPIRIN 325 MG TAB PO SCH (09:00)
[2021-09-08] MEDS: ACETAMINOPHEN 500 MG TAB PO PRN (14:37)
--- NOTE | 2021-09-08 17:02 | EKG ---
Test Date: 2021-09-07 Test Time: 10:00:30 Furniture Decals Inspector: RICKEY MEASUREMENT RESULTS: Intervals: Rate: 84 IN: 224 QRSD: 86 QT: 404 QTc: 477 [place]: P: 84 IN: 224 QRS: 48 T: 49 INTERPRETIVE STATEMENTS: Sinus rhythm with 1st degree AV block Possible Anterior infarct, age undetermined Abnormal ECG Compared to ECG 04/01/2021 03:25:10 Myocardial infarct finding now present Electronically Signed On 09-08-21 16:57:21 LICENSED AUDIOLOGIST by Evan Dunn
[2021-09-08 18:02] VITALS: BMI 44.6
[2021-09-08] MEDS ORDERED: PNEUMOCOCCAL VACCINE 0.5 ML IMVAC ONE (18:30)
--- NOTE | 2021-09-08 21:21 | CON ---
Reason For Consultation: Consultation called because of apparent transient ischemic attack. History Of Present Illness: Mrs. You is an 81-year-old right-handed patient with prior stroke affecting her left brain producing right-sided weakness. This is chronic; however, the direc t reason for admission today was apparently a few minutes of difficulty getting her words and thought s together and she told me perhaps a bit more right-sided weakness of the left leg and arm. At [facility], she was worked up with a head CT scan and brain MRI, which showed no acute ischemic o r hemorrhagic change; however, her neck MRA and CT angiogram showed a long segment occlusion of the l eft common and internal carotid artery. The right carotid artery was widely patent and she also had collateral circulation coming from the [place] to supply the rest of the left anterior, midd le, and posterior cerebral territories. In terms of her other workup, complete blood count with diff erential was normal. Coagulation panel unremarkable. Chemistries remarkable for mildly elevated glu cose. Chloride slightly elevated and a slightly low potassium. Liver function studies unremarkable. Procalcitonin unremarkable. Urinalysis shows 1+ esterase, 5-10 white blood cells. COVID-19 test w as negative. Since hospitalization, she has been back to her baseline and remained that way and annmarie ed any additional TIA-like episodes or stroke-like episodes. Past Medical History: Hypertension, stroke, hypothyroidism, dyslipidemia, paroxysmal atrial fibrilla tion. Family History: Heart disease in father. Pancreatic cancer in mother and sister. Allergies: LETY INHIBITORS, HYDRALAZINE, AND PENTOBARBITAL. Social History: No alcohol, tobacco, or IV drug use. Review of Systems: Aside from mentioned above, she denies any fevers or chills, nausea, vomiting, myalgias, arthralgias, headache, weight change, or rash. Physical Examination: Vital Signs: Blood pressure 156/70, pulse 69, respiratory rate 16, temperature 97.6, oxygen saturati on 95% room air. Weight 244 pounds, height 5 feet 2 inches, BMI 44.6. General: Mrs. You was sitting at the side of the bed, getting ready to eat her lunch. She is in no acute distress. HEENT: She is normocephalic and atraumatic. Sclerae anicteric. Oropharynx pink and moist. Neck: Supple. Chest: Clear. Heart: Regular. Musculoskeletal: She does complain of some right lower back pain radiating down the right lower extr emity. Neurologic: Otherwise, in terms of her neurological examination, she has good expression and compreh ension. No obvious focal cranial nerve deficits. Motor examination, in the right upper extremity, s ubtle weakness, 5- compared to the left 5/5 and same thing of her lower extremity. Sensory exam, sli ghtly decreased to light touch in the right compared to the left upper and lower extremities. Coordi nation intact in upper and lower extremities. Gait, she has good stance and stride. Assessment: Mrs. You is an 81-year-old patient with no evidence of an acute stroke; however, she has long segment occlusion of the left common and internal carotid arteries, but there are collatera l circulations from the [place] that feed the rest of her brain. Does have an old stroke in the left parietal region. She has morbid obesity for risk factors. Hypertension and atrial fibrill ation are additional stroke risk factors. She is treated for her atrial fibrillation with Eliquis 5 mg twice daily. She is on aspirin 81 mg daily. She has heart rate control on antihypertensive medic ations and Synthroid for hypothyroidism. Those should be continued. She may benefit from outpatient physical therapy to improve her balance, gait, and coordination. Otherwise, she may be discharged h [facility] at this point with instructions for good hydration and follow up in Dr. Minaya's office 1 month later. ENEIDA/JAMIL Voice ID: [id number] Report ID: [id number]
[2021-09-09] MEDS: LEVOTHYROXINE SOD 0.1 MG TAB PO SCH (05:33)
[2021-09-09 06:44] LABS: Magnesium 2.2 mg/dL (1.8-2.4); Potassium 3.6 mmol/L (3.5-5.1)
[2021-09-09] MEDS ORDERED: POTASSIUM 25 MEQ EFFERV TAB PO ONE (09:00)
[2021-09-09] MEDS ORDERED: LIDOCAINE 4% PATCH TOP SCH (09:00)
[2021-09-09] MEDS ORDERED: ATORVASTATIN 80 MG TAB PO SCH (09:00)
[2021-09-09] MEDS: DOFETILIDE 500 MCG PO SCH (09:00)
[2021-09-09] MEDS: POTASSIUM CL SA 10 MEQ TAB PO SCH ×2 (09:42→13:47)
[2021-09-09] MEDS: LIOTHYRONINE SOD 5 MCG TAB PO SCH (09:42)
[2021-09-09] MEDS: cloNIDine HCL 0.1 MG TAB PO SCH (09:42)
[2021-09-09] MEDS: DILTIAZEM HCL 120 MG SR CAP PO SCH (09:42)
[2021-09-09] MEDS: GABAPENTIN 100 MG CAP PO SCH ×2 (09:42→13:47)
[2021-09-09] MEDS: ASPIRIN EC 81 MG TAB PO SCH (09:43)
[2021-09-09] MEDS: DOXAZOSIN 4 MG TAB PO SCH (09:43)
[2021-09-09] MEDS: APIXABAN 5 MG TABLET PO SCH (09:43)
[2021-09-09] MEDS: ISOSORBIDE MONO SR 30 MG TAB PO SCH (09:43)
[2021-09-09] MEDS: HYDRALAZINE HCL 25 MG TABLET PO SCH ×2 (09:43→13:47)
[2021-09-09] MEDS: LOSARTAN POTASSIUM 50 MG TABLET PO SCH (09:43)
[2021-09-09] MEDS: PANTOPRAZOLE 40MG TABLET PO SCH (09:44)
[2021-09-09] MEDS: FUROSEMIDE 40 MG TABLET PO SCH (09:45)
[2021-09-09] MEDS ORDERED: CEFTRIAXONE 1000 MG/VIAL ONE (09:48)
[2021-09-09] MEDS ORDERED: NA CHLORIDE 0.9% 50 ML ONE (09:48)
[2021-09-09] MEDS: CEFTRIAXONE 1,000 MG in NA CHLORIDE 0.9% 50 ML IVPB SCH (09:51)
[2021-09-09 11:53] VITALS: O2SAT 98
[2021-09-09 13:49] VITALS: BP 152/70; TEMP 97.4
--- NOTE | 2021-09-11 05:29 | DS ---
Date of Discharge: 09/09/2021 Disposition: Discharged to go [place]. Physical Examination: HEENT: Examination unremarkable. Lungs: Clear to auscultation. Heart: Sounds normal. Abdomen: Soft. Bowel sounds normal. No guarding, rigidity, tenderness, or distention. Extremities: No leg . Labs: Today sodium 142, potassium 3.6, chloride 107, bicarb 29, BUN 10, creatinine 0.85, glucose 109 . Liver function tests done yesterday was unremarkable. CBC from yesterday; white count 5.3, hemogl obin 11.6, platelets 135. Hospital Course: 81-year-old very pleasant female patient, came into emergency room with complaints of episode of inability to speak. Please see dictated H and P for more information. The patient had this episode at home where for short time she was not able to speak any words and subsequently she r ecovered on her own. After her admission to the hospital, she did not have any recurrence of this ne urological symptoms or any other new symptoms. Her CAT scan of the brain was negative for any acute intracranial changes. 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 Urinalysis had shown 1+ leukocyte esterase 5 to 10 wbc's. She was started on empiric antibiotic, ceftriaxone. Urine culture has not grown any bacteria so far up until the day of dischar . She participated well with the physical therapy. Cardiology consultation and neurology consulta tion were obtained. The patient did not have any neurological deficit and she was discharged to [facility] with following discharge medication instructions. The patient was complaining of some sciatic pain with her lower back radiating down to her leg and cydney normally takes gabapentin 200 mg a day for that, so we decided to go up on the dose of her gabapent in. She takes aspirin 81 mg daily and Eliquis 5 mg 2 times a day and she was advised to continue thi s anti-platelet and anticoagulation therapy. Final Diagnosis: 1.Transient ischemic attack. 2.Anemia. 3.Thrombocytopenia. 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 5.Hypokalemia. 6.Hypertension. 7.Hyperlipidemia. 8.Paroxysmal atrial fibrillation. 9.Asthma. 10.Hypothyroidism. 11.Impaired fasting glucose. 12.Allergic rhinitis. Discharge Medications And Instructions: 1.Continue all prior home medications except change gabapentin 100 mg. The patient is to take 3 cap sules by mouth 3 times a day until she runs out of current supply, then change it to 300 mg and take 1 capsule by mouth 3 times a day. 2.Folic acid 1 mg take 1 tablet by mouth daily. 3.Atorvastatin 40 mg change the dose to 2 tablets by mouth daily until you run out, then change it t o 80 mg and take 1 tablet by mouth daily and prescription for atorvastatin, folic acid, and gabapenti n was sent to her pharmacy. 4.Follow up at my office next week on Monday or Monday and call office for appointment. YOLY/JAMIL Voice ID: [id number] Report ID: [id number]
== END 2021-09-09 15:53 | disposition home or self-care (01) | DRG 69 ==
LOC: ER 09:12 → ERHOLD 12:39 → 2ND 14:34 → OBSVTOIN 09-08 15:31
PROVIDERS: ADMIT Internal Medicine; ATTEND Internal Medicine
DX: G45.9 Transient cerebral ischemic attack, unspecified (principal); I65.22 Occlusion and stenosis of left carotid artery; E87.6 Hypokalemia; I10 Essential (primary) hypertension; E78.5 Hyperlipidemia, unspecified; I48.0 Paroxysmal atrial fibrillation; J45.909 Unspecified asthma, uncomplicated; E03.9 Hypothyroidism, unspecified; J30.9 Allergic rhinitis, unspecified; R73.01 Impaired fasting glucose; D64.9 Anemia, unspecified; D69.6 Thrombocytopenia, unspecified; Z86.73 Personal history of transient ischemic attack (TIA), and cerebral infarction without residual deficits; Z20.822 Contact with and (suspected) exposure to COVID-19
CPT/HCPCS: 36415; 70450; 70496; 70544; 70549; 70553; 80048; 80053; 80061; 81003; 81015; 83605; 83735; 84145; 85025; 85610; 85730; 87040; 87086; 87088; 93005; 99285; A9577; G0378; U0003

== ENCOUNTER 2022-05-27 14:28 | Emergency (ER) | payer OTHER, MEDICARE ==
--- OUTSIDE RECORDS SUMMARY | 2022-05-27 14:31 | XMS REPORT | Continuity of Care Document ---
:1940 Author Organization [facility] t Address [facility] [place] [address] Care Team Providers Name Role Phone PAZ GALDAMEZ Attending Clinician Unavailable MD PAZ GALDAMEZ Attending Clinician Unavailable LEO MURRELL APRN Attending Clinician Unavailable LEO MURRELL, DAMIÁN Attending Clinician Unavailable PAZ GALDAMEZ Admitting Clinician Unavailable MD PAZ GALDAMEZ Admitting Clinician Unavailable Problems Condition Condition Condition Status Onset Resolution Last Treating Co mments Source Name Details Category Date Date Treatment Clinician Date Encounter Encounter Problem Active [facility] for for [facility]ici administra administra an s tion of tion of COVID-19 COVID-19 vaccine vaccine History of History of Problem Resolve [facility] mitral mitral d Physici valve valve ans prolapse prolapse History of History of Problem Resolve UT hypothyroi hypothyroi d Ph ysici dism dism ans History of History of Problem Resolve [facility] 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 Renal Renal Problem Active [facility] disease disease Physici ans Anxiety Anxiety Problem Active [facility] disorder, disorder, Phys ici unspecifie unspecifie an s d type d type Moderate Moderate Problem Active UT obstructiv obstructiv Ph ysici e sleep e sleep ans apnea apnea Muscle Muscle Problem Active [facility] cramp cramp Physici ans Atrial Atrial Problem Active [facility] fibrillati fibrillati Ph ysici on on ans Morbid Morbid Problem Active UT obesity obesity Physici ans Depression Depression Problem Active U T screen screen Physici ans Cerebral Cerebral Problem Active UT infarction infarction Ph ysici ans Essential Essential Problem Active UT hypertensi hypertensi Ph ysici on on ans Sleep Sleep Problem Active [facility] apnea apnea Physici ans Allergies, Adverse Reactions, Alerts Allergy Allergy Status Severity Reaction(s) Onset Inactive Treating Comm ents Source Name Type Date Date Clinician Nembutal Allergy Active [facility] to drug Physici (finding ans ) Family History Family Member Diagnosis Comments Start Date Stop Date Source Mother Family history of [facility] Phys [facility] pancreatic cancer Father Family history of cardiac [facility] disorder Social History Smoking Status Start Date Stop Date Source Ex-smoker (finding) [facility] s Medications Ordered Filled Start Stop Current Ordering Indication Dosage Frequency Signature Comments Components Source Medication Medication Date Date Medication? Clinician (SIG) Name Name amLODIPine amLODIPine Yes MUNACHI 1 QD TAKE 1 UT Besylate 5 Besylate 5 9-25 OKPALA TABLET Physici MG Oral MG Oral 00:00: CROCODILE FARMER DAILY. ans Tablet Tablet 00 Gabapentin Gabapentin Yes Take 1 UT 100 MG Oral 100 MG Oral 9-23 tablet AM Physici Capsule Capsule 00:00: , 200 in ans 00 the afternoon, 200 in the evening clonazePAM clonazePAM Yes 1 QD TAKE 1 UT 1 MG Oral 1 MG Oral 9-23 TABLET Phy sici Tablet Tablet 00:00: Daily PRN ans 00 BP over 160 Atenolol 50 Atenolol 50 2017-10 Yes .5 QD TAKE 0.5 UT MG Oral MG Oral 0-17 TABLET Physici Tablet Tablet 00:00: DAILY ans 00 Methocarbam Methocarbam 2017-10 Yes 1 Q0.5D TAKE 1 UT ol 500 MG ol 500 MG 0-17 TABLET Phy sici Oral Tablet Oral Tablet 00:00: TWICE ans 00 DAILY Symbicort Symbicort 2017-10 Yes USE U T 160-4.5 160-4.5 0-17 DIRECTED. Phys ici MCG/ACT MCG/ACT 00:00: ans Inhalation Inhalation 00 Aerosol Aerosol Omeprazole Omeprazole 2017-10 Yes QD TAKE 1 UT 20 MG Oral 20 MG Oral 0-17 CAPSULE Physici Capsule Capsule 00:00: DAILY ans Delayed Delayed 00 EVERY Release Release MORNING BEFORE BREAKFAST. Aspirin 81 Aspirin 81 2017-10 Yes 1 QD TAKE 1 UT MG Oral MG Oral 0-17 TABLET Physici Tablet Tablet 00:00: DAILY. ans Delayed Delayed 00 Release Release Montelukast Montelukast 2017-10 Yes 1 QD TAKE 1 UT Sodium 10 Sodium 10 0-17 TABLET Phy sici MG Oral MG Oral 00:00: DAILY. ans Tablet Tablet 00 Levothyroxi Levothyroxi 2017-10 Yes 1 QD TAKE 1 UT ne Sodium ne Sodium 0-17 TABLET Phy sici 112 MCG 112 MCG 00:00: DAILY. ans Oral Tablet Oral Tablet 00 Edarbyclor Edarbyclor 2017-0 Yes MUNACHI 1 QD TAKE 1 UT 40-25 MG 40-25 MG 4-20 OKPALA TABLET BY Physici Oral Tablet Oral Tablet 00:00: CROCODILE FARMER MOUTH ONCE ans 00 DAILY Pravastatin Pravastatin Yes LEO 1 QD TAKE 1 UT Sodium 40 Sodium 40 7-31 OKPALA TABLET P hysici MG Oral MG Oral 00:00: CROCODILE FARMER DAILY. ans Tablet Tablet 00 Viteyes Viteyes Yes LEO 1 QD TAKE 1 UT Complete Complete 3-17 OKPALA CAPSULE Ph ysici Oral Oral 00:00: CROCODILE FARMER DAILY. ans Capsule Capsule 00 Liothyronin Liothyronin Yes LEO 1 QD TAKE 1 UT e Sodium 5 e Sodium 5 3-17 OKPALA TABLET Physici MCG Oral MCG Oral 00:00: CROCODILE FARMER DAILY. ans Tablet Tablet 00 Doxazosin Doxazosin Yes LEO 1 Q0.5D TAKE 1 UT Mesylate 4 Mesylate 4 3-17 OKPALA TABLET Physici MG Oral MG Oral 00:00: CROCODILE FARMER TWICE ans Tablet Tablet 00 DAILY Dofetilide Dofetilide Yes LEO 1 capsule UT 500 MCG 500 MCG OKPALA daily Physic i Oral Oral CROCODILE FARMER ans Capsule Capsule Vitamin D-3 Vitamin D-3 Yes 1 tablet UT CAPS CAPS daily Physici ans Vascepa 1 Vascepa 1 Yes LEO 1 capsule UT GM Oral GM Oral OKPALA daily Physic i Capsule Capsule CROCODILE FARMER ans Immunizations Ordered Immunization Filled Immunization Date Status Commen ts Source Name Name Prezacor 2020-11-28 Completed [facility]ans COVID-19 Vacc 30 14:02:00 MCG/0.3ML Intramuscular Suspension Vital Signs Vital Name Observation Time Observation Value Comments Source Systolic blood 2020-07-17 11:51:00 146 mm[Hg] Location: LLE; [facility] P [facility]ysicians pressure Position: Standing Diastolic blood 2020-07-17 11:51:00 67 mm[Hg] Location: LLE; [facility] pressure Position: Standing Heart Rate 2020-07-17 11:51:00 65 /min [facility] BP Systolic 2019-07-23 11:51:00 152 mm[Hg] Location: LUE; [facility] Position: Sitting BP Diastolic 2019-07-23 11:51:00 76 mm[Hg] Location: LUE; [facility] Position: Sitting Height 2019-07-23 11:51:00 62 [in_us] [facility] Weight 2019-07-23 11:51:00 248.5 [lb_av] [facility] Body Mass Index 2019-07-23 11:51:00 45.45 kg/m2 [facility] Calculated Heart Rate 2019-07-23 11:51:00 66 /min Location: L [facility] Brachial Artery; Procedures Procedure Date / Time Performed Performing Clinician [facility] e History of Hysterectomy [facility] History of Appendectomy [facility] History of Bladder Surgery [facility] History of Neuroplasty [facility] Decompression Median Nerve At Carpal Tunnel History of Esophagogastric [facility] Fundoplasty Carlos Fundoplication History of Knee Surgery [facility] Right Encounters Start End Encounter Admission Attending Care Care Encounter Source Date/Time Date/Time Type Type Clinicians Facility Department ID 2021-01-07 2021-01-10 Inpatient PAZ GALDAMEZ [facility] [id number] [place] 00:00:00 00:00:[address] 2021-01-01 2021-01-01 Outpatient PAZ GALDAMEZ [facility] [id number] [place] 00:00:00 00:00:[address] 2020-07-17 2020-07-17 [facility] - [id number] [place] 11:30:00 11:30:00 t; LEO MURRELL, Jean Ph ysici MUNACHI, CROCODILE FARMER Medical ans [facility] Center 2019-07-23 2019-07-23 [facility] - [id number] [place] 11:30:00 11:30:00 t; LEO MURRELL, Jean Ph ysici MUNACHI, CROCODILE FARMER Medical ans [facility] Center 2018-08-08 2018-08-08 [facility] [id number] [place] 11:30:00 11:30:00 t; LEO MRURELL, Ph ysici MUNACHI, CROCODILE FARMER ans CR[employer]ODILE FARMER 2017-08-08 2017-08-08 [facility] [id number] [place] 11:30:00 11:30:00 t; LEO MURRELL, DAMIÁN Physici LEO, daniel VEGETABLE TRIMMER Results Test Description Test Time Test Comments Results Result Comments Source SARS-CoV-2 (COVID-19) RNA [Presence] in Respiratory sp ecimen by 2021-01-01 18:46:21 NEHEMIAS with probe detection Test Item Value Reference Range Interpretation Comme nts SARS-CoV-2 (COVID-19) RNA [Presence] in Respiratory Not detected No t-Detected specimen by NEHEMIAS with probe detection (test code = 19958-8)
[2022-05-27 15:46] LABS: Absolute Lymphocytes (CBC) 0.9 K/uL (0.7-4.9); Hematocrit 34.4 % (36.0-45.0); Lymphocytes % 14.2 % (15.3-44.8); MCV 90.5 fL (80-100)
--- NOTE | 2022-05-27 15:55 | RAD REPORT ---
EXAM DESCRIPTION: [facility] Single View05/27/2022 3:13 pm CLINICAL HISTORY: Chest pain COMPARISON: 2020 FINDINGS: The lungs appear clear of acute infiltrate. The heart is normal size IMPRESSION: No acute abnormalities displayed
[2022-05-27] MEDS ORDERED: PHENAZOPYRIDINE 100MG TAB PO ONE (16:01)
[2022-05-27] MEDS ORDERED: SMZ./TMP. 800/160 MG TABLET ONE (16:01)
[2022-05-27] MEDS ORDERED: HYDROCODONE/APAP 7.5/325 MG TAB ONE (16:01)
[2022-05-27 16:04] LABS: Potassium 4.2 mmol/L (3.5-5.1); Troponin High Sensitivity 13.3 pg/mL (<58.9)
[2022-05-27 16:33] LABS: Urine Blood Negative (Negative); Urine Glucose Negative (Negative); Urine Protein 2+ (Negative); Urine Specific Gravity >=1.030 (1.005-1.030); Urine pH 5.5 (5.0-7.0)
--- NOTE | 2022-05-27 16:51 | EDPHYS ---
Physician Documentation [facility] Name: Kristal You Age: 81 yrs Sex: Female : 1940 Arrival Date: 05/27/2022 Time: 14:29 Bed 24 Private MD: Judd Gurrola; Evan Dunn S ED Physician Lalito Madsen HPI: 05/27 17:49 This 81 yrs old Female presents to ER via Wheelchair with complaints of Chest Tightness kdr - on exertion. 17:49 Patient states that she is having pain with urination that started on Monday. She kdr believes she has a recurrent bladder infection. She has been having chest pain as well that is been ongoing for about 3 to 4 weeks. It occurs primarily or only with exertion. She is scheduled to see Dr. Babb on Monday for further evaluation. Patient does not feel that issue needs to be addressed at this time as she will follow-up with Dr. Babb. Onset: The symptoms/episode began/occurred gradually, 2 day(s) ago. Severity of symptoms: At their worst the symptoms were mild moderate just prior to arrival, in the emergency department the symptoms are unchanged. The patient has experienced similar episodes in the past, a few times. The patient has not recently seen a physician. Historical: - Allergies: 14:37 LETY INHIBITORS; iw 14:37 HYDRALAZINE; iw - PMHx: 14:37 Asthma; Hypertension; Hypothyroidism; Atrial Fib; CVA; UTI; iw - Immunization history:: Adult Immunizations up to date. - Social history:: Smoking status: Patient denies any tobacco usage or history of. ROS: 17:49 Constitutional: Negative for fever, chills, and weight loss, Eyes: Negative for injury, kdr pain, redness, and discharge, ENT: Negative for injury, pain, and discharge, Neck: Negative for injury, pain, and swelling, Respiratory: Negative for shortness of breath, cough, wheezing, and pleuritic chest pain, Abdomen/GI: Negative for abdominal pain, nausea, vomiting, diarrhea, and constipation, Back: Negative for injury and pain, : Negative for injury, bleeding, discharge, and swelling, MS/Extremity: Negative for injury and deformity, Skin: Negative for injury, rash, and discoloration. 17:49 Cardiovascular: Positive for chest pain, with movement, Negative for edema, orthopnea, palpitations, paroxysmal nocturnal dyspnea. 17:49 : Positive for urinary symptoms, flank pain, urinary frequency, burning with urination, difficulty urinating, Negative for vaginal bleeding, vaginal discharge, vaginal itching, menstrual abnormality. Exam: 15:40 ECG was reviewed by the Attending Physician. kdr 17:49 Constitutional: This is a well developed, well nourished patient who is awake, alert, kdr and in no acute distress. Head/Face: Normocephalic, atraumatic. Eyes: Pupils equal round and reactive to light, extra-ocular motions intact. Lids and lashes normal. Conjunctiva and sclera are non-icteric and not injected. Cornea within normal limits. Periorbital areas with no swelling, redness, or edema. Neck: Trachea midline, no thyromegaly or masses palpated, and no cervical lymphadenopathy. Supple, full range of motion without nuchal rigidity, or vertebral point tenderness. No Meningismus. Chest/axilla: Normal chest wall appearance and motion. Nontender with no deformity. No lesions are appreciated. Cardiovascular: Regular rate and rhythm with a normal S1 and S2. No gallops, murmurs, or rubs. Normal PMI, no JVD. No pulse deficits. Respiratory: Lungs have equal breath sounds bilaterally, clear to auscultation and percussion. No rales, rhonchi or wheezes noted. No increased work of breathing, no retractions or nasal flaring. Abdomen/GI: Soft, non-tender, with normal bowel sounds. No distension or tympany. No guarding or rebound. No evidence of tenderness throughout. Back: No spinal tenderness. No costovertebral tenderness. Full range of motion. Skin: Warm, dry with normal turgor. Normal color with no rashes, no lesions, and no evidence of cellulitis. MS/ Extremity: Pulses equal, no cyanosis. Neurovascular intact. Full, normal range of motion. Neuro: Awake and alert, GCS 15, oriented to person, place, time, and situation. Cranial nerves II-XII grossly intact. Motor strength 5/5 in all extremities. Sensory grossly intact. Cerebellar exam normal. Normal gait. Psych: Awake, alert, with orientation to person, place and time. Behavior, mood, and affect are within normal limits. Vital Signs: 14:35 BP 140 / 53; Pulse 88; Resp 16; Temp 97.6; Pulse Ox 98% on R/A; Weight 112.04 kg; iw Height 5 ft. 2 in. (157.48 cm); 16:15 BP 143 / 68; Pulse 75; Resp 15; Pulse Ox 98% ; hb 14:35 Body Mass Index 45.18 (112.04 kg, 157.48 cm) iw MDM: 16:51 Patient medically screened. kdr 17:49 Data reviewed: vital signs, nurses notes, lab test result(s), radiologic studies. kdr Counseling: I had a detailed discussion with the patient and/or guardian regarding: the historical points, exam findings, and any diagnostic results supporting the discharge/admit diagnosis, lab results, radiology results, the need for outpatient follow up. 05/27 14:41 Order name: Basic Metabolic Panel; Complete Time: 16:48 kdr 05/27 14:41 Order name: CBC with Diff; Complete Time: 16:48 kdr 05/27 14:41 Order name: Troponin HS; Complete Time: 16:48 kdr 05/27 16:33 Order name: Urine Dipstick-Ancillary; Complete Time: 16:48 EDMS 05/27 16:34 Order name: Urine Microscopic Only hb 05/27 17:04 Order name: Urine Culture EDMS 05/27 14:41 Order name: XRAY Chest (1 view); Complete Time: 16:48 kdr 05/27 14:41 Order name: EKG; Complete Time: 14:41 kdr 05/27 14:41 Order name: Cardiac monitoring; Complete Time: 15:35 kdr 05/27 14:41 Order name: EKG - Nurse/Tech; Complete Time: 15:48 kdr 05/27 14:41 Order name: IV Saline Lock; Complete Time: 15:48 kdr 05/27 14:41 Order name: Labs collected and sent; Complete Time: 15:48 kdr 05/27 14:41 Order name: O2 Per Protocol; Complete Time: 15:35 kdr 05/27 14:41 Order name: O2 Sat Monitoring; Complete Time: 15:35 kdr 05/27 14:46 Order name: Urine Dipstick-Ancillary (obtain specimen); Complete Time: 15:35 iw 05/27 14:46 Order name: Cath; Complete Time: 15:35 iw EC:40 Rate is 73 beats/min. Rhythm is regular, Sinus Rhythm with 1st degree heart block. QRS kdr [place] is Normal. AR interval is normal. QRS interval is normal. QT interval is normal. Clinical impression: NSR w/ Non-specific ST/T Changes. Administered Medications: 15:56 Drug: Pyridium (phenazopyridine) 200 mg Route: PO; hb 17:30 Follow up: Response: No adverse reaction hb 15:56 Drug: Bactrim (trimethoprim-sulfamethoxazole) (160 mg-800 mg (DS) 1 tablet Route: PO; hb 17:30 Follow up: Response: No adverse reaction hb 15:56 Drug: [place] (HYDROcodone-acetaminophen) (7.5 mg-325 mg) 1 tabs Route: PO; hb 17:30 Follow up: Response: No adverse reaction hb 17:02 Drug: Rocephin - (cefTRIAXone) 1 grams Route: IVPB; Infused Over: 30 mins; Site: right hb antecubital; 17:25 Follow up: Response: No adverse reaction; IV Status: Infusion continued; IV Intake: 50mlhb Disposition Summary: 05/27/22 16:51 Discharge Ordered Location: Home kdr Problem: new kdr Symptoms: have improved kdr Condition: Stable kdr Diagnosis - UTI/ Urinary tract infection, site not specified kdr Followup: kdr - With: Judd Gurrola MD - When: 2 - 3 days - Reason: If symptoms return, Further diagnostic work-up, Recheck today's complaints, Continuance of care, Re-evaluation by your physician Discharge Instructions: - Discharge Summary Sheet kdr - Urinary Tract Infection, Adult, [id number] kdr Forms: - Medication Reconciliation Form kdr - Thank You Letter kdr - Antibiotic Education kdr Prescriptions: - Pyridium 200 mg Oral Tablet - take 1 tablet by ORAL route every 8 hours for 3 days; 9 tablet; Refills: 0, kdr Product Selection Permitted - Bactrim DS 800-160 mg Oral Tablet - take 1 tablet by ORAL route every 12 hours for 10 days; 20 tablet; Refills: 0, kdr Product Selection Permitted Signatures: Dispatcher [employer] Lalito Currie MD MD kdr Sherice Tracy RN RN Bailey Page RN RN
--- NOTE | 2022-05-27 16:51 | ER ---
Nurse's Notes [facility] Name: Kristal You Age: 81 yrs Sex: Female : 1940 Arrival Date: 05/27/2022 Time: 14:29 Bed 24 Private MD: Judd Gurrola; Evan Dunn S Diagnosis: UTI/ Urinary tract infection, site not specified Presentation: 05/27 14:35 Acuity: LUCINA 3 iw 14:35 Chief complaint: Patient states: bladder infection , pain with urination started on iw Monday, and also I have been having some chest tightness that's been going on for a while, is due to see Mona on Monday. Coronavirus screen: Client presents with at least one sign or symptom that may indicate coronavirus-19. Ebola Screen: Patient negative for fever greater than or equal to 101.5 degrees Fahrenheit, and additional compatible Ebola Virus Disease symptoms Patient denies exposure to infectious person. Patient denies travel to an Ebola-affected area in the 21 days before illness onset. No symptoms or risks identified at this time. Initial Sepsis Screen: Does the patient meet any 2 criteria? No. Patient's initial sepsis screen is negative. Does the patient have a suspected source of infection? No. Patient's initial sepsis screen is negative. Risk Assessment: Do you want to hurt yourself or someone else? Patient reports no desire to harm self or others. Onset of symptoms was May 25, 2022. 14:35 Method Of Arrival: Wheelchair iw Historical: - Allergies: 14:37 LETY INHIBITORS; iw 14:37 HYDRALAZINE; iw - PMHx: 14:37 Asthma; Hypertension; Hypothyroidism; Atrial Fib; CVA; UTI; iw - Immunization history:: Adult Immunizations up to date. - Social history:: Smoking status: Patient denies any tobacco usage or history of. Screenin:25 Abuse screen: Denies threats or abuse. Denies injuries from another. Nutritional hb screening: No deficits noted. Tuberculosis screening: No symptoms or risk factors identified. Fall Risk None identified. Assessment: 15:36 General: Appears in no apparent distress. Behavior is calm, cooperative. Pain: Pain hb currently is 3 out of 10 on a pain scale. Neuro: Level of Consciousness is awake, alert, obeys commands, Oriented to person, place, time, situation. Cardiovascular: Reports chest pain, shortness of breath, Patient's skin is warm and dry. Respiratory: Respiratory effort is even, unlabored, Respiratory pattern is regular, symmetrical. GI: No signs and/or symptoms were reported involving the gastrointestinal system. : No signs and/or symptoms were reported regarding the genitourinary system. EENT: No signs and/or symptoms were reported regarding the EENT system. Derm: Skin is pink, warm \T\ dry. Musculoskeletal: No signs and/or symptoms reported regarding the musculoskeletal system. 16:25 Reassessment: Patient appears in no apparent distress at this time. Patient and/or hb family updated on plan of care and expected duration. Pain level reassessed. Patient is alert, oriented x 3, equal unlabored respirations, skin warm/dry/pink. Vital Signs: 14:35 BP 140 / 53; Pulse 88; Resp 16; Temp 97.6; Pulse Ox 98% on R/A; Weight 112.04 kg; iw Height 5 ft. 2 in. (157.48 cm); 16:15 BP 143 / 68; Pulse 75; Resp 15; Pulse Ox 98% ; hb 14:35 Body Mass Index 45.18 (112.04 kg, 157.48 cm) iw ED Course: 14:29 Patient arrived in ED. as 14:30 Judd Gurrola MD is Private Physician. as 14:30 Evan Dunn MD is Private Physician. as 14:32 Lalito Madsen MD is Attending Physician. kdr 14:35 Triage completed. iw 14:37 Arm band placed on. iw 14:52 Bailey Page, KARIE is Primary Nurse. hb 15:14 XRAY Chest (1 view) In Process Unspecified. EDMS 15:16 Patient maintains SpO2 saturation greater than 95% on room air. hb 15:35 Inserted saline lock: 20 gauge in right antecubital area, using aseptic technique. hb Blood collected. 16:25 Patient has correct armband on for positive identification. Client placed on continuous hb cardiac and pulse oximetry monitoring. NIBP monitoring applied. 16:50 Judd Gurrola MD is Referral Physician. kdr 17:46 No provider procedures requiring assistance completed. IV discontinued, intact, ap3 bleeding controlled, No redness/swelling at site. Administered Medications: 15:56 Drug: Pyridium (phenazopyridine) 200 mg Route: PO; hb 17:30 Follow up: Response: No adverse reaction hb 15:56 Drug: Bactrim (trimethoprim-sulfamethoxazole) (160 mg-800 mg (DS) 1 tablet Route: PO; hb 17:30 Follow up: Response: No adverse reaction hb 15:56 Drug: Bourbon (HYDROcodone-acetaminophen) (7.5 mg-325 mg) 1 tabs Route: PO; hb 17:30 Follow up: Response: No adverse reaction hb 17:02 Drug: Rocephin - (cefTRIAXone) 1 grams Route: IVPB; Infused Over: 30 mins; Site: right hb antecubital; 17:25 Follow up: Response: No adverse reaction; IV Status: Infusion continued; IV Intake: 50mlhb Medication: 15:36 VIS not applicable for this client. hb Intake: 17:25 IV: 50ml; Total: 50ml. hb Outcome: 16:51 Discharge ordered by . kdr 17:46 Discharged to home via wheelchair. ap3 17:46 Condition: stable 17:46 Discharge instructions given to patient, Instructed on discharge instructions, follow up and referral plans. medication usage, Demonstrated understanding of instructions, follow-up care, medications, Prescriptions given X 2. 17:47 Patient left the ED. ap3 Signatures: Dispatcher [employer] EDMS Lalito Madsen MD MD kdr Martinez, Amelia as Williams, Irene, RN RN Bialey Page RN RN Kelsey Hendrix RN RN ap3
[2022-05-27 17:00] LABS: Urine Bacteria 20-50 /HPF (<20); Urine Mucus 2+ /HPF (None Seen)
[2022-05-27] MEDS ORDERED: CEFTRIAXONE 1000 MG/VIAL ONE (17:09)
[2022-05-27] MEDS ORDERED: NA CHLORIDE 0.9% 50 ML ONE (17:09)
[2022-05-27 18:35] VITALS: TEMP 97.6; O2SAT 98
[2022-05-27 18:45] VITALS: BP 143/68
--- NOTE | 2022-05-28 09:13 | EKG ---
Test Date: 2022-05-27 Test Time: 15:37:04 Field Sales Manager: HB MEASUREMENT RESULTS: Intervals: Rate: 73 MO: 224 QRSD: 84 QT: 400 QTc: 440 [place]: P: 73 MO: 224 QRS: 48 T: 19 INTERPRETIVE STATEMENTS: Sinus rhythm with 1st degree AV block Possible Anterior infarct, age undetermined Abnormal ECG Compared to ECG 09/07/2021 10:00:30 No significant changes Electronically Signed On 05-28-22 09:12:52 CDT by Evan Dunn
== END 2022-05-27 17:47 | disposition home or self-care (01) ==
LOC: ER 14:28
DX: N39.0 Urinary tract infection, site not specified (principal); R07.89 Other chest pain; I10 Essential (primary) hypertension; Z88.8 Allergy status to other drugs, medicaments and biological substances
CPT/HCPCS: 36415; 71045; 80048; 81003; 81015; 84484; 85025; 87077; 87086; 87088; 87186; 93005; 96365; 99284

== ENCOUNTER 2022-05-30 16:48 | Inpatient (IN) | payer OTHER, MEDICARE ==
--- OUTSIDE RECORDS SUMMARY | 2022-05-30 16:50 | XMS REPORT | Continuity of Care Document ---
:1940 Author Organization [facility] t Address 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 ans Tablet Tablet 00 Gabapentin Gabapentin [...] Oral Tablet Oral Tablet 00 Edarbyclor Edarbyclor Yes MUNACHI 1 QD TAKE 1 UT 40-25 MG 40-25 MG 4-20 OKPALA TABLET BY Physici Oral Tablet Oral Tablet 00:00: WORKERS COMPENSATION ANALYST MOUTH ONCE ans 00 DAILY Pravastatin Pravastatin Yes NERYACHI 1 QD TAKE 1 UT Sodium 40 Sodium 40 7-31 OKPALA TABLET P hysici MG Oral MG Oral 00:00: WORKERS COMPENSATION ANALYST DAILY. ans Tablet Tablet 00 Viteyes Viteyes Yes NERYACHI 1 QD TAKE 1 UT Complete Complete 3-17 OKPALA CAPSULE Ph ysici Oral Oral 00:00: WORKERS COMPENSATION ANALYST DAILY. ans Capsule Capsule 00 Liothyronin Liothyronin Yes MUNACHI 1 QD TAKE 1 UT e Sodium 5 e Sodium 5 3-17 OKPALA TABLET Physici MCG Oral MCG Oral 00:00: WORKERS COMPENSATION ANALYST DAILY. ans Tablet Tablet 00 Doxazosin Doxazosin Yes LEO 1 Q0.5D TAKE 1 UT Mesylate 4 Mesylate 4 3-17 OKPALA TABLET Physici MG Oral MG Oral 00:00: WORKERS COMPENSATION ANALYST TWICE ans Tablet Tablet 00 DAILY Dofetilide Dofetilide Yes MUNACHI 1 capsule UT 500 MCG 500 MCG OKPALA daily Physic i Oral Oral WORKERS COMPENSATION ANALYST ans Capsule Capsule Vitamin D-3 Vitamin D-3 Yes 1 tablet UT CAPS CAPS daily Physici ans Vascepa 1 Vascepa 1 Yes MUNACHI 1 capsule UT GM Oral GM Oral OKPALA daily Physic i Capsule Capsule WORKERS COMPENSATION ANALYST ans Immunizations Ordered Immunization Filled Immunization Date Status Commen ts Source Name Name [employer] 2020-11-28 Completed [facility] COVID-19 Vacc [...] BP Systolic 2019-07-23 11:51:00 152 mm[Hg] Location: E; [facility] Position: Sitting BP Diastolic 2019-07-23 11:51:00 76 mm[Hg] Location: E; [facility] Position: Sitting Height 2019-07-23 11:51:00 62 [in_us] [facility] Weight 2019-07-23 11:51:00 248.5 [lb_av] [facility] Body Mass Index 2019-07-23 11:51:00 45.45 kg/m2 [facility] Calculated Heart Rate 2019-07-23 11:51:00 66 /min Location: L [facility] Brachial Artery; Procedures Procedure Date / Time Performed Performing Clinician [facility] e History of Hysterectomy [facility] [...] Department ID 2021-01-07 2021-01-10 Inpatient PAZ GALDAMEZ [facility] [id number] [place] 00:00:00 00:00:[address] 2021-01-01 2021-01-01 Outpatient PAZ GALDAMEZ [facility] [id number] [place] 00:00:00 00:00:[address] 2020-07-17 2020-07-17 Appointmen [facility] - [id number] [place] 11:30:00 11:30:00 [place] [facility], WORKERS COMPENSATION ANALYST Medical ans WORKERS COMPENSATION ANALYST Center 2019-07-23 2019-07-23 Appointmen [facility] - [id number] [place] 11:30:00 11:30:00 t[place] [facility] MUNACHI, WORKERS COMPENSATION ANALYST Medical ans WORKERS COMPENSATION ANALYST Center 2018-08-08 2018-08-08 Appointmen BLUE MURRELL [facility] [id number] [place] 11:30:00 11:30:00 t; LEO MURRELL ysici [facility], WORKERS COMPENSATION ANALYST ans WORKERS COMPENSATION ANALYST 2017-08-08 2017-08-08 AppointBLUE Salas [facility] [id number] [place] 11:30:00 11:30:00 t; LEO MURRELL, DAMIÁN Physici LEO, ans [employer] TECHNICIAN Results Test Description Test Time Test Comments Results Result Comments Source SARS-CoV-2 (COVID-19) RNA [Presence] in Respiratory sp ecimen by 2021-01-01 18:46:21 NEHEMIAS with probe detection Test Item Value Reference Range Interpretation Comme nts SARS-CoV-2 (COVID-19) RNA [Presence] in Respiratory Not detected No t-Detected specimen by NEHEMIAS with probe detection (test code = 49398-3)
[2022-05-30 17:41] LABS: Absolute Lymphocytes (CBC) 0.4 K/uL (0.7-4.9); Hematocrit 32.9 % (36.0-45.0); Lymphocytes % 6.1 % (15.3-44.8); MCV 92.2 fL (80-100); MPV 7.3 fL (7.6-11.3); RBC Red Blood Cell Count 3.56 M/uL (3.86-4.86)
[2022-05-30 17:57] LABS: Albumin 3.6 g/dL (3.4-5.0); Bilirubin Direct 0.2 mg/dL (0-0.2); Bilirubin Total 0.5 mg/dL (0.2-1.0); Magnesium 1.9 mg/dL (1.8-2.4); Potassium 4.8 mmol/L (3.5-5.1); Troponin High Sensitivity 10.9 pg/mL (<58.9)
[2022-05-30 17:58] LABS: Protime INR 1.58
--- NOTE | 2022-05-30 19:13 | RAD REPORT ---
EXAM DESCRIPTION: RAD - Chest Single View - 05/30/2022 7:04 pm CLINICAL HISTORY: CHEST PAIN COMPARISON: Chest Single View dated 05/27/2022; Chest Pa And Lat (2 Views) dated 05/28/2021; Chest Singl e View dated 04/03/2021; Chest Single View dated 04/01/2021 FINDINGS: Lines: None. Lungs: Increased prominence of the pulmonary vasculature. Pleural: No significant pleural effusions or pneumothorax. Cardiac: Cardiomegaly Bones: No acute fractures. Other: IMPRESSION: Increased pulmonary vascular congestion
[2022-05-30] MEDS ORDERED: ALBUTEROL 2.5 MG/3 ML NEB SOL ONE (19:57)
[2022-05-30] MEDS ORDERED: METHYLPREDNISOLONE 125 MG INJ ONE (19:57)
[2022-05-30] MEDS ORDERED: FUROSEMIDE 40 MG/4 ML VIAL ONE (19:57)
--- NOTE | 2022-05-30 21:09 | EDPHYS ---
Physician Documentation [facility] Name: Kristal You Age: 81 yrs Sex: Female : 1940 Arrival Date: 05/30/2022 Time: 16:49 Bed 25 Private MD: Khadijah Gurrola C ED Physician Roger Samuels HPI: 05/30 17:02 This 81 yrs old Female presents to ER via Wheelchair with complaints of Chest Pain. pm1 17:02 The patient or guardian reports chest pain that is located primarily in the left breast pm1 area. Onset: 1 month ago but worse today. Swelling to lower legs and face since Monday. The pain does not radiate. Associated signs and symptoms: Pertinent positives: shortness of breath, with wheezing and generalized weakness, Pertinent negatives: abdominal pain, cough, headache, nausea, vomiting. The chest pain is described as sharp. Duration: The patient or guardian reports a single episode, that is still ongoing. Modifying factors: The symptoms are alleviated by nothing. the symptoms are aggravated by nothing. Severity of pain: in the emergency department the pain is actually worse. The patient has not recently seen a physician, the patient's primary care provider is Dr. Gurrola. Patient has appointment with Dr Babb tomorrow for routine cardiac visit. Reports plan for that visit is to discuss stress testing. Historical: - Allergies: 16:56 LETY INHIBITORS; kr3 16:56 HYDRALAZINE; kr3 - PMHx: 16:56 Atrial Fib; Asthma; Hypertension; Hypothyroidism; CVA; UTI; kr3 - PSHx: 16:56 ablation; kr3 - Immunization history:: Client reports receiving the 2nd dose of the Covid vaccine. - Social history:: Smoking status: Patient/guardian denies using tobacco, the patient reports quitting approximately 40 years ago. ROS: 17:02 Constitutional: Negative for fever, chills, and weight loss. pm1 17:02 Abdomen/GI: Negative for abdominal pain, nausea, vomiting, diarrhea, and constipation, Back: Negative for injury and pain, MS/Extremity: Negative for injury and deformity, Skin: Negative for injury, rash, and discoloration, Neuro: Negative for headache, weakness, numbness, tingling, and seizure. 17:02 Cardiovascular: Positive for chest pain, edema, Negative for palpitations. 17:02 Respiratory: Positive for shortness of breath, wheezing. 17:02 : Positive for small amounts, Negative for burning with urination. 17:02 All other systems are negative. Exam: 17:02 Constitutional: This is a well developed, well nourished patient who is awake, alert, pm1 and in no acute distress. Head/Face: Normocephalic, atraumatic. 17:02 Back: No spinal tenderness. No costovertebral tenderness. Full range of motion. Skin: Warm, dry with normal turgor. Normal color with no rashes, no lesions, and no evidence of cellulitis. MS/ Extremity: Pulses equal, no cyanosis. Neurovascular intact. Full, normal range of motion. 17:02 Eyes: Exam is negative for acute changes, Periorbital structures: appear normal, Pupils: no acute changes, Extraocular movements: no acute changes, Conjunctiva: no acute changes, no injection. 17:02 ENT: Exam is negative for acute changes, Mouth: no acute changes, Lips: normal, moist, Oral mucosa: normal, pink and intact, moist. 17:02 Cardiovascular: Exam negative for acute changes, Rate: normal, Rhythm: irregular, Pulses: no pulse deficits are appreciated, Edema: 2+ edema to level of bilateral lower extremity. 17:02 Respiratory: the patient does not display signs of respiratory distress, Respirations: no acute changes, Breath sounds: decreased breath sounds, that are mild, are located in both bases. 17:02 Abdomen/GI: Inspection: obese Palpation: abdomen is soft and non-tender, in all quadrants. 17:02 Neuro: Exam negative for acute changes, Orientation: is normal, Mentation: is normal, Motor: is normal, moves all fours. Vital Signs: 16:53 BP 178 / 43; Pulse 76; Resp 20; Temp 97.2; Pulse Ox 97% on R/A; kr3 19:12 BP 171 / 54; Pulse 76; Resp 18; Pulse Ox 96% on R/A; kd3 20:48 Pulse 74; Resp 18 S; Pulse Ox 96% on R/A; as6 MDM: 17:04 Patient medically screened. pm1 21:00 Physician consultation: Khadijah Gurrola MD was called at 21:05, was contacted at 21:05, pm1 regarding admission, patient's condition, and will see patient would like consultation with Dr. Dr. Dunn, Eliquis 2.5 mg, Continue lasix 40 mg BID, Rocephin instead of Bactrim for UTI. 21:03 Data reviewed: vital signs. Data interpreted: Pulse oximetry: on room air is 96 %. pm1 Interpretation: normal. 05/30 17:02 Order name: Basic Metabolic Panel; Complete Time: 18:03 pm1 05/30 17:02 Order name: CBC with Diff; Complete Time: 17:43 pm1 05/30 17:02 Order name: LFT's; Complete Time: 18:03 pm1 05/30 17:02 Order name: Magnesium; Complete Time: 18:03 pm1 05/30 17:02 Order name: NT PRO-BNP; Complete Time: 18:03 pm1 05/30 17:02 Order name: PT-INR; Complete Time: 18:03 pm1 05/30 17:02 Order name: Troponin HS; Complete Time: 18:03 pm1 05/30 17:04 Order name: COVID-19 SARS RT PCR (Document "Date of Onset" if Symptomatic); Complete pm1 Time: 18:28 05/30 17:04 Order name: Flu; Complete Time: 17:56 pm1 05/30 22:42 Order name: Urine Dipstick-Ancillary; Complete Time: 23:04 EDMS 05/31 03:16 Order name: CBC with Automated Diff EDMS 05/31 03:22 Order name: Basic Metabolic Panel; Complete Time: 03:29 EDMS 05/31 03:22 Order name: NT PRO-BNP; Complete Time: 03:29 EDMS 05/31 04:39 Order name: Manual Differential EDMS 05/30 17:02 Order name: XRAY Chest (1 view); Complete Time: 19:20 pm1 05/30 17:02 Order name: EKG; Complete Time: 17:03 pm1 05/30 17:02 Order name: Cardiac monitoring; Complete Time: 19:12 pm1 05/30 17:02 Order name: EKG - Nurse/Tech; Complete Time: 17:09 pm1 05/30 17:02 Order name: IV Saline Lock; Complete Time: 17:27 pm1 05/30 17:02 Order name: Labs collected and sent; Complete Time: 17:27 pm1 05/30 17:02 Order name: O2 Per Protocol; Complete Time: 19:12 pm1 05/30 21:45 Order name: CONS Physician Consult EDOK 05/30 17:02 Order name: O2 Sat Monitoring; Complete Time: 19:12 pm1 05/30 21:09 Order name: Urine Dipstick-Ancillary (obtain specimen); Complete Time: 22:41 pm1 EC:17 Rate is 79 beats/min. Rhythm is regular, Sinus Rhythm. QRS [place] is Normal. ME interval pm1 is normal. No Q waves. T waves are Normal. No ST changes noted. Clinical impression: No evidence of ischemia and Sinus rhythm with marked sinus arrthymia. Administered Medications: 20:06 Drug: SOLU-Medrol (methylPrednisoLONE) 125 mg Route: IVP; Site: right antecubital; 3 05/31 08:20 Follow up: Response: No adverse reaction 1 05/30 20:07 Drug: Albuterol 2.5 mg Route: Inhalation; kd3 20:07 Drug: Lasix (furosemide) 40 mg Route: IVP; Site: right antecubital; 3 05/31 08:20 Follow up: Response: No adverse reaction 1 05/30 22:08 Drug: Rocephin (cefTRIAXone) 1 grams Route: IV; Rate: calculated rate; Site: right [facility] antecubital; 22:08 Follow up: IV Status: Completed infusion kd3 22:08 Drug: Dofetilide 250 mcg Route: PO; kd3 05/31 08:19 Follow up: Response: No adverse reaction 1 05/30 22:08 Drug: Aspirin 81 mg Route: PO; kd3 05/31 08:19 Follow up: Response: No adverse reaction 1 05/30 22:08 Drug: HydrALAZINE 75 mg Route: PO; kd3 05/31 08:19 Follow up: Response: No adverse reaction 1 05/30 22:09 Drug: Eliquis (apixaban) 2.5 mg Route: PO; kd3 05/31 08:20 Follow up: Response: No adverse reaction 1 Disposition: 21:48 Co-signature as Attending Physician, Roger Samuels MD. rn Disposition Summary: 05/30/22 21:08 Hospitalization Ordered Hospitalization Status: Inpatient Admission pm1 Provider: Khadijah Gurrola pmCalderon Condition: Stable pm1 Problem: new pm1 Symptoms: have improved pm1 Bed/Room Type: Standard pm1 Location: Telemetry/MedSurg (Inpatient)(05/31/22 07:47) Room Assignment: [facility](05/31/22 07:47) Diagnosis - Congestive heart failure exacerbation pm1 Forms: - Medication Reconciliation Form pm1 - SBAR form pm1 Signatures: Dispatcher [employer] EDRoger Boyer MD MD rn Smirch, Shelby, RN RN Kesha Sparks RN RN Alin Chavira NP SEISMOLOGY TECHNICAL OFFICER pm1 Mami Anaya RN RN kd3 Sharri Vidal RN RN anum3 Mary Jo Velazquez RN ll1 Corrections: (The following items were deleted from the chart) 05/30 23:55 21:08 Telemetry/MedSurg (Inpatient) pm1 23:55 21:08 pm1 cg 05/31 07:47 05/30 23:55 [facility] ER HOLD [facility] 05/31 07:47 05/30 23:55 ERHOLD- [facility]
--- NOTE | 2022-05-30 21:09 | ER ---
Nurse's Notes [facility] Name: Kristal You Age: 81 yrs Sex: Female : 1940 Arrival Date: 05/30/2022 Time: 16:49 Bed 25 Private MD: Khadijah Gurrola C Diagnosis: Congestive heart failure exacerbation Presentation: 05/30 16:53 Chief complaint: Patient states: CP for 1 month, worse today. States her kidneys kr3 stopped working and she has been building up with fluid since Monday. + weakness, chronic SOB. Wheezing noted when helping out of her vehicle. Coronavirus screen: Vaccine status: Patient reports receiving the 2nd dose of the covid vaccine. Client denies travel out of the [place] in the last 14 days. congestion, difficulty breathing, fatigue, Client presents with at least one sign or symptom that may indicate coronavirus-19. Standard/surgical mask placed on the client. Ebola Screen: Patient denies travel to an Ebola-affected area in the 21 days before illness onset. Initial Sepsis Screen: Does the patient meet any 2 criteria? No. Patient's initial sepsis screen is negative. Does the patient have a suspected source of infection? No. Patient's initial sepsis screen is negative. Risk Assessment: Do you want to hurt yourself or someone else? Patient reports no desire to harm self or others. Onset of symptoms was April 29, 2022. 16:53 Method Of Arrival: Wheelchair kr3 16:53 Acuity: LUCINA 3 kr3 Triage Assessment: 16:57 General: Appears uncomfortable, Behavior is cooperative, appropriate for age. Pain: kr3 Complains of pain in chest Quality of pain is described as aching. Neuro: No deficits noted. Cardiovascular: Reports chest pain, fatigue, shortness of breath. Respiratory: Reports shortness of breath cough that is. Historical: - Allergies: 16:56 LETY INHIBITORS; kr3 16:56 HYDRALAZINE; kr3 - PMHx: 16:56 Atrial Fib; Asthma; Hypertension; Hypothyroidism; CVA; UTI; kr3 - PSHx: 16:56 ablation; kr3 - Immunization history:: Client reports receiving the 2nd dose of the Covid vaccine. - Social history:: Smoking status: Patient/guardian denies using tobacco, the patient reports quitting approximately 40 years ago. Screenin:12 Abuse screen: Denies threats or abuse. Denies injuries from another. Nutritional kd3 screening: No deficits noted. Tuberculosis screening: No symptoms or risk factors identified. Fall Risk None identified. IV access (20 points). Assessment: 19:13 Pain: Pain does not radiate. Pain began gradually. kd3 Vital Signs: 16:53 BP 178 / 43; Pulse 76; Resp 20; Temp 97.2; Pulse Ox 97% on R/A; kr3 19:12 BP 171 / 54; Pulse 76; Resp 18; Pulse Ox 96% on R/A; kd3 20:48 Pulse 74; Resp 18 S; Pulse Ox 96% on R/A; as6 ED Course: 16:49 Patient arrived in ED. am2 16:49 Khadijah Gurrola MD is Private Physician. am2 16:50 Alin Meza NP is PHCP. pm1 16:50 Roger Samuels MD is Attending Physician. pm1 16:56 Triage completed. kr3 16:58 Arm band placed on. kr3 17:02 EKG completed in triage. Results shown to MD. kr3 17:04 Notified Charge Nurse of CP for 1 month, most likely going to be admitted per P. kr3 DAMIÁN Meza. 17:27 Flu Sent. kr3 17:27 COVID-19 SARS RT PCR (Document "Date of Onset" if Symptomatic) Sent. kr3 17:30 Missed attempt(s): 22 gauge Bleeding controlled, band aid applied, catheter tip intact. kr3 17:32 Inserted saline lock: 22 gauge in right antecubital area, using aseptic technique. kr3 Blood collected. 19:06 XRAY Chest (1 view) In Process Unspecified. EDMS 19:11 Mami Anaya, RN is Primary Nurse. kd3 19:13 Patient has correct armband on for positive identification. Client placed on continuous kd3 cardiac and pulse oximetry monitoring. NIBP monitoring applied. 19:13 Patient maintains SpO2 saturation greater than 95% on room air. kd3 21:07 Khadijah Gurrola MD is Hospitalizing Provider. pm1 Administered Medications: 20:06 Drug: SOLU-Medrol (methylPrednisoLONE) 125 mg Route: IVP; Site: right antecubital; kd3 05/31 08:20 Follow up: Response: No adverse reaction ll1 05/30 20:07 Drug: Albuterol 2.5 mg Route: Inhalation; kd3 20:07 Drug: Lasix (furosemide) 40 mg Route: IVP; Site: right antecubital; kd3 08 08:20 Follow up: Response: No adverse reaction ll1 05/30 22:08 Drug: Rocephin (cefTRIAXone) 1 grams Route: IV; Rate: calculated rate; Site: right kd3 antecubital; 22:08 Follow up: IV Status: Completed infusion kd3 22:08 Drug: Dofetilide 250 mcg Route: PO; kd3 05/31 08:19 Follow up: Response: No adverse reaction ll1 05/30 22:08 Drug: Aspirin 81 mg Route: PO; kd3 08 08:19 Follow up: Response: No adverse reaction ll1 05/30 22:08 Drug: HydrALAZINE 75 mg Route: PO; kd3 08 08:19 Follow up: Response: No adverse reaction 1 05/30 22:09 Drug: Eliquis (apixaban) 2.5 mg Route: PO; kd3 05/31 08:20 Follow up: Response: No adverse reaction 1 Medication: 05/30 19:13 VIS not applicable for this client. kd3 Outcome: 21:08 Decision to Hospitalize by Provider. pm1 08 08:20 Patient left the ED. 1 Signatures: Dispatcher [employer] EDMS Alin Meza NP MECHANICAL MAINTENANCE TECHNICIAN pm1 Kelsey Apple am2 Mary Jo Velazquez RN RN ll1 Rohith Suresh RN RN as6 Mami Anaya RN RN kd3 Sharri Vidal RN RN kr3 Corrections: (The following items were deleted from the chart) 05/30 18:00 18:00 Inserted saline lock: 22 gauge in right antecubital area, using aseptic kr3 technique. Blood collected. kr3
[2022-05-30] MEDS ORDERED: APIXABAN 5 MG TABLET ONE (21:48)
[2022-05-30] MEDS ORDERED: CEFTRIAXONE 1000 MG/VIAL ONE (21:48)
[2022-05-30] MEDS ORDERED: HYDRALAZINE HCL 25 MG TABLET ONE (21:48)
[2022-05-30] MEDS ORDERED: ASPIRIN 81 MG CHEWABLE TABLET ONE (21:48)
[2022-05-30 22:41] LABS: Urine Blood Negative (Negative); Urine Glucose Negative (Negative); Urine Protein Negative (Negative); Urine pH 5.5 (5.0-7.0)
[2022-05-31] MEDS ORDERED: ALBUTEROL 2.5 MG/3 ML NEB SOL NEB PRN ×2 (01:04→14:00)
[2022-05-31] MEDS ORDERED: IPRATROPIUM BROM 0.5MG/2.5ML NEB PRN ×2 (01:04→14:00)
[2022-05-31 02:19] VITALS: BMI 49.1
[2022-05-31 03:10] LABS: Absolute Lymphocytes (CBC) 0.3 K/uL (0.7-4.9); Hematocrit 30.1 % (36.0-45.0); Lymphocytes % 5.4 % (15.3-44.8); MCV 90.3 fL (80-100); MPV 7.6 fL (7.6-11.3); RBC Red Blood Cell Count 3.34 M/uL (3.86-4.86)
[2022-05-31 03:22] LABS: Potassium 5.2 mmol/L (3.5-5.1)
[2022-05-31 04:39] LABS: Blood Morphology Comment NOT SEEN (NOT SEEN); Platelet Estimate ADEQ
[2022-05-31] MEDS ORDERED: HOME MED 1 EA UNK (Fluticasone/Umeclidin/Vilanter [Trelegy Ellipta 200-62.5-25] Blst.W.Dev IH PRN (07:33)
[2022-05-31] MEDS ORDERED: DILTIAZEM HCL 60 MG TAB PO SCH (09:00)
[2022-05-31] MEDS ORDERED: HOME MED 1 EA UNK (Omeprazole [Omeprazole] 20 MG Capsule.Dr) PO SCH (09:00)
[2022-05-31] MEDS: Dofetilide 250 MCG Capsule PO SCH ×2 (09:00→20:51)
[2022-05-31] MEDS: APIXABAN 2.5 MG TABLET PO SCH ×2 (09:52→20:50)
[2022-05-31] MEDS: LOSARTAN POTASSIUM 50 MG TABLET PO SCH ×2 (09:52→20:50)
[2022-05-31] MEDS: PANTOPRAZOLE 40MG TABLET PO SCH (09:52)
[2022-05-31] MEDS: FOLIC ACID 1 MG TABLET PO SCH (09:52)
[2022-05-31] MEDS: ISOSORBIDE MONO SR 30 MG TAB PO SCH (09:52)
[2022-05-31] MEDS: LIOTHYRONINE SOD 5 MCG TAB PO SCH (09:52)
[2022-05-31] MEDS: cloNIDine HCL 0.1 MG TAB PO SCH ×2 (09:52→20:49)
[2022-05-31] MEDS: HYDRALAZINE HCL 25 MG TABLET PO SCH ×3 (09:52→20:50)
[2022-05-31] MEDS: CEFTRIAXONE 1,000 MG in NA CHLORIDE 0.9% 50 ML IVPB SCH ×2 (09:53→20:50)
[2022-05-31] MEDS: FUROSEMIDE 40 MG/4 ML VIAL IV SCH ×2 (09:53→16:49)
[2022-05-31] MEDS: GABAPENTIN 300 MG CAP PO SCH ×3 (09:53→20:50)
[2022-05-31] MEDS: LEVOTHYROXINE SOD 0.1 MG TAB PO SCH (09:58)
[2022-05-31] MEDS: DILTIAZEM HCL 120 MG SR CAP PO SCH (10:11)
[2022-05-31] MEDS: icosapent ethyL 1 GM CAP PO SCH ×2 (10:11→20:50)
--- NOTE | 2022-05-31 10:39 | EKG ---
Test Date: 2022-05-30 Test Time: 17:02:57 Swing Ride Operator: TASHA MEASUREMENT RESULTS: Intervals: Rate: 78 MD: 202 QRSD: 80 QT: 396 QTc: 451 [place]: P: 64 MD: 202 QRS: 50 T: 60 INTERPRETIVE STATEMENTS: Sinus rhythm with marked sinus arrhythmia Otherwise normal ECG Compared to ECG 05/27/2022 15:37:04 First degree AV block no longer present Myocardial infarct finding no longer present Electronically Signed On 05-31-22 10:36:12 CDT by Evan Dunn
--- NOTE | 2022-05-31 13:15 | CON ---
Date of Consultation: 05/31/2022 Reason For Consultation: Chest pain and shortness of breath. History Of Present Illness: Ms. You is an 81-year-old woman. She is very well known to me and Devika Gurrola from previous office visit and admission. Has had a history of hypertension. She has had a history of atrial fibrillation, status post ablation. Has a history of CVA, TIA, asthma, hypertensio n, hypothyroidism, severe carotid stenosis, obesity, and UTI. Comes in with chest pain and shortness of breath has been going on for about a month with some PND, orthopnea and pedal edema. Denied any nausea, vomiting, diaphoresis, palpitations, or syncope. Denied any fever or chills. Past Medical History: As stated above. Allergies: SHE IS ALLERGIC TO LETY INHIBITORS. Review of Systems: Negative. Social History: Negative. Family History: Noncontributory. Medications: At home include Eliquis, doxazosin, Imdur, Lasix, Synthroid, Cardura, hydralazine, losa rtan, clonidine, Neurontin, and inhalers. She is also on diltiazem. Physical Examination: General: Ms. You was in no acute distress. Vital Signs: Stable. She was afebrile. HEENT: Negative. Neck: Supple with no bruit. Chest: Reveals crackles both bases. Cardiac: Revealed a regular rhythm and rate with S4 gallops. Abdomen: Obese. Extremities: Revealed 2+ edema to the knees. Neurological: She was nonfocal. Skin: Dry and intact. Diagnostic Data: Chest x-ray shows CHF. EKG shows sinus rhythm. Blood work revealed a creatinine o f 1.77. BNP is 1092. Her sodium was 126. Impression And Plan: Acute on chronic diastolic congestive heart failure with hyponatremia, elevated BNP, elevated creatinine. I think her sodium is probably dilutional. Echocardiogram the last one w e had in 2019 that showed normal ejection fraction with some diastolic dysfunction. I think we need to diurese her gently. We need to continue her diltiazem, maybe increase her dose of diltiazem becau se of her angina which is expected knowing she has 50% to 60% coronary artery disease, circumflex LAD and RCA a year ago. I certainly have no plan to do another catheterization on her with her low GFR at this point. She will continue on Imdur. Her other problems including atrial fibrillation with tr ansient ischemic attacks and cerebrovascular accident, she is on Eliquis and we need to continue that . Her blood pressure is fairly well controlled. Her asthma is well controlled. Her hypothyroidism is well controlled. She has severe carotid stenosis 100% that is being treated medically and we will keep an eye on that in the office. Again, mainly diuresis, watch her potassium and creatinine. Con community board member increasing diltiazem and/or increasing the Imdur. I will continue to follow her along with Dr. Gurrola. Case was discussed with him. CIRILO/JAMIL Voice ID: [id number] Report ID: [id number]
[2022-05-31] MEDS ORDERED: ATORVASTATIN 80 MG TAB PO SCH (21:00)
[2022-06-01 04:43] LABS: Potassium 4.6 mmol/L (3.5-5.1); Thyroid Stimulating Hormone 0.482 uIU/mL (0.360-3.740)
[2022-06-01 04:50] VITALS: O2SAT 96
[2022-06-01] MEDS: LEVOTHYROXINE SOD 0.1 MG TAB PO SCH (06:47)
--- NOTE | 2022-06-01 07:49 | HP ---
Date of Admission: 05/31/2022 Chief Complaint: Chest pain and shortness of breath. History Of Present Illness: This is an 81-year-old very pleasant female patient with history of coronary artery disease, hypertension, atrial fibrillation, and multiple other chronic comorbidities, came into emergency room with chest pain with exertion which include just normal day-to-day activity. Pain is relieved at rest. She is also having shortness of breath with activity. With this complaint, she came into emergency room and after she was evaluated, she was admitted to the hospital. When I saw her this morning, she was lying in bed, not in any distress. Denies any fever, chills, nausea, vomiting. Medications: List reviewed. Review of Systems: Cardiovascular: As mentioned above. Respiratory: As mentioned above. All other systems reviewed and negative. Allergies: TO LETY INHIBITORS. Social History: Prior history of smoking, not at present time. Family History: Father had heart disease. Mother had pancreatic cancer. Sister had pancreatic cancer. Past Surgical History: Cholecystectomy, appendectomy, rectocele repair, hysterectomy, bladder suspension surgery, shoulder surgery, carpal tunnel surgery, and knee surgery. Past Medical History: Significant for hypertension, stroke, allergic rhinitis, hypothyroidism, impaired fasting glucose, hyperlipidemia, paroxysmal atrial fibrillation, hyponatremia, and asthma. Physical Examination: Vital Signs: Temperature 97, pulse 70, respiratory rate 18, blood pressure 145/59, oxygen saturation 97% on room air. Height 5 feet 4 inches, weight 286 pounds. General: Awake, alert, oriented, not in distress. HEENT: Head atraumatic, normocephalic. Conjunctivae nonerythematous. Sclerae white. Mouth, no thrush or edema noted. Ears/Nose, no mass, lesion, discharge noted. Neck: Supple. No JVD, lymph nodes, bruit, thyromegaly noted. Lungs: Bilateral good equal air entry. Presence of rales noted in lower lung peoples. Not using any accessory muscles of respiration. Heart: Normal heart sounds, no murmur or gallop. Abdomen: Soft, bowel sounds normal. No guarding, rigidity, tenderness, mass, hepatosplenomegaly, distention, or bruit noted. Extremities: Bilateral grade 1 pedal edema. Skin: No rash, ulcer, cellulitis. Lymphatics: No lymph node enlargement in neck, supraclavicular, infraclavicular region. Neuro: No focal neurological deficit. Chest: Unremarkable. External Genitalia: Deferred. Rectal: Deferred. Laboratory Data: Yesterday when she came into ER, white count 7.2, hemoglobin 11.1, platelets 151. This morning, white count 5.4, hemoglobin 10.6, platelets 140. Yesterday: Sodium 125, potassium 4.8, chloride 98, bicarb 20, BUN 28, creatinine 1.84, glucose 112. Liver Function Tests: AST 86, ALT 143, alkaline phosphatase 69, total bilirubin 0.5. ProBNP 719. Troponin 10.9. This morning, ProBNP 1092. BUN 29, creatinine 1.77, sodium 126, potassium 5.2. Urine analysis positive for nitrite, otherwise, negative. Chest x-ray shows changes of congestive heart failure. Urine culture done 2 or 3 days ago from last ER visit reviewed. Impression: 1. Angina. 2. Coronary artery disease. 3. Congestive heart failure, chronic, diastolic, with acute exacerbation. 4. Urinary tract infection. 5. Anemia, chronic, unspecified. 6. Chronic kidney disease, stage 4. 7. Hypertension. 8. Paroxysmal atrial fibrillation. 9. Hyperlipidemia. 10. Hypothyroidism. 11. Impaired fasting glucose. 12. Chronic anticoagulation therapy. 13. Hyponatremia. Plan: We will go ahead and admit her to the hospital for further evaluation and management of this problem. The patient is appropriate for inpatient and is expected to spend 2 midnights in hospital. We will continue home medications per order. Continue anticoagulation therapy, Eliquis, but reduce dose from 5 mg 2 times a day to 2.5 mg 2 times a day, considering her age and creatinine now. Consult registered nurse step down. Give IV Lasix per order. Monitor intake, output, and electrolytes, and renal function. We will discontinue spironolactone. We will not give any oral Bactrim that she was taking for urinary tract infection, as we are not sure whether that is contributing or causing her renal dysfunction at this point and we will give IV ceftriaxone at this time. Details and plan of treatment discussed with Dr. Dunn, registered nurse step down, who was consulted to see her. I will see her tomorrow for followup. YOLY/MODL Voice ID: [id number] LOBO
[2022-06-01] MEDS ORDERED: NA CHLORIDE 0.9% 0 ML ONE (08:36)
[2022-06-01] MEDS: CEFTRIAXONE 1,000 MG in NA CHLORIDE 0.9% 50 ML IVPB SCH (09:00)
[2022-06-01] MEDS: LOSARTAN POTASSIUM 50 MG TABLET PO SCH (09:16)
[2022-06-01] MEDS: GABAPENTIN 300 MG CAP PO SCH (09:16)
[2022-06-01] MEDS: ISOSORBIDE MONO SR 30 MG TAB PO SCH (09:16)
[2022-06-01] MEDS: FOLIC ACID 1 MG TABLET PO SCH (09:16)
[2022-06-01] MEDS: HYDRALAZINE HCL 25 MG TABLET PO SCH (09:16)
[2022-06-01] MEDS: PANTOPRAZOLE 40MG TABLET PO SCH (09:16)
[2022-06-01] MEDS: DILTIAZEM HCL 120 MG SR CAP PO SCH (09:17)
[2022-06-01] MEDS: LIOTHYRONINE SOD 5 MCG TAB PO SCH (09:17)
[2022-06-01] MEDS: cloNIDine HCL 0.1 MG TAB PO SCH (09:17)
[2022-06-01] MEDS: APIXABAN 2.5 MG TABLET PO SCH (09:17)
[2022-06-01] MEDS: FUROSEMIDE 40 MG/4 ML VIAL IV SCH (09:18)
[2022-06-01 09:20] VITALS: TEMP 97.4
[2022-06-01 09:24] VITALS: BP 158/55
[2022-06-01] MEDS: Dofetilide 250 MCG Capsule PO SCH (09:38)
[2022-06-01] MEDS: icosapent ethyL 1 GM CAP PO SCH (09:38)
--- NOTE | 2022-06-01 16:46 | PN ---
Date of Progress Note: 06/01/2022 The case was discussed with Dr. Gurrola. Ms. You had came in with [id number] diastolic conges tive heart failure. Has a history of CAD; atrial fibrillation, status post ablation; has a history o f severe cerebrovascular disease with 100% occlusion of her right carotid; had a history of hypertens ion. Came in with hyponatremia; creatinine 1.75, which has improved. Her sodium has improved to 130 . Creatinine has improved. She has improved symptomatically. She is now on Eliquis, Lipitor, dilti azem, Lasix, Neurontin, hydralazine, losartan, Imdur, thyroid, clonidine as well as antibiotics. I a m comfortable with her going home. We should probably consider increasing her Cardizem as an outpati ent and maybe increasing her Lasix dose and have her follow up in the very near future when she shoul d have her BMP repeated. CIRILO/JAMIL Voice ID: [id number] Report ID: [id number]
--- NOTE | 2022-06-02 08:06 | DS ---
Date of Discharge: 06/01/2022 Disposition: Discharged to go home. Physical Examination: HEENT: Unremarkable. Lungs: Clear to auscultation. Heart: Sounds normal. Abdomen: Soft. Bowel sounds normal. No guarding, rigidity, tenderness, or distention. Extremities: No leg edema. Laboratory Data: Upon admission; sodium 125, potassium 4.8, chloride 98, bicarb 20, BUN 28, creatini ne 1.84, glucose 112. Liver function tests unremarkable. Triglyceride level done today was 38 and T SH 0.48. Today; chemistry shows sodium 130, potassium 4.6, chloride 101, bicarb 23, BUN 35, creatini ne 1.75, glucose 132, and yesterday sodium was 126, potassium was 5.8, BUN was 29, creatinine 1.77. ProBNP was 1092 yesterday. Upon admission; white count 7.2, hemoglobin 11.1, platelets 151. Yesterd ay; white count 5.4, hemoglobin 10.6, platelets 143. Discharge Medications And Instructions: 1.Continue prior home medication except stop Eliquis 5 mg and start Eliquis 2.5 mg 2 times a day. 2.Stop spironolactone. 3.Stop Imdur which is isosorbide mononitrate 30 mg dose and start 60 mg daily dose. 4.Follow up at my office next week on 06/07/2022. Call office for appointment next follow up with Devika Dunn in 2 weeks. Hospital Course: This is a 81-year-old pleasant female patient, admitted to the hospital with compla ints of chest pain with activity and shortness of breath. Please see dictated H and P for more infor mation. The patient recently had a visit to emergency room and at that time she was started on Bactr im DS for urinary tract infection problem and she came in with other complaints and was admitted to [facility] with exertional angina and congestive heart failure problem. The patient also had hypona tremia, this was due to congestive heart failure problem. She was given IV Lasix and her troponin wa s normal. Cardiology consultation was requested from Dr. Dunn and he has not suggested any furthe r invasive testing at this point except some medication management and recommended either to go up on the dose of diltiazem or isosorbide mononitrate. Considering her elevated potassium, I have discont inued her spironolactone. Also considering her creatinine and her age, the patient qualifies for a l ower dose of Eliquis so I have instructed her about that as well. Overall, her condition has improve d and she was discharged to go home in stable condition with above-mentioned medications and instruct ions. Final Diagnoses: 1.Angina. 2.Coronary artery disease. 3.Congestive heart failure, chronic, diastolic, with acute exacerbation. 4.Hyponatremia. 5.Hyperkalemia. 6.Anemia due to chronic kidney disease. 7.Thrombocytopenia. 8.Chronic kidney disease, stage 4. 9.Hypertension. 10.Paroxysmal atrial fibrillation. 11.Urinary tract infection. YOLY/MODL Voice ID: [id number] Report ID: [id number]
== END 2022-06-01 10:32 | disposition home or self-care (01) | DRG 291 ==
LOC: ER 16:48 → ERHOLD 21:40 → 2ND 05-31 08:11
PROVIDERS: ADMIT Internal Medicine; ATTEND Internal Medicine
DX: I13.0 Hypertensive heart and chronic kidney disease with heart failure and stage 1 through stage 4 chronic kidney disease, or unspecified chronic kidney disease (principal); I50.33 Acute on chronic diastolic (congestive) heart failure; N18.4 Chronic kidney disease, stage 4 (severe); E87.1 Hypo-osmolality and hyponatremia; N39.0 Urinary tract infection, site not specified; I25.119 Atherosclerotic heart disease of native coronary artery with unspecified angina pectoris; E87.5 Hyperkalemia; D63.1 Anemia in chronic kidney disease; D69.6 Thrombocytopenia, unspecified; I48.0 Paroxysmal atrial fibrillation; E03.9 Hypothyroidism, unspecified; Z79.01 Long term (current) use of anticoagulants; Z86.73 Personal history of transient ischemic attack (TIA), and cerebral infarction without residual deficits; Z20.822 Contact with and (suspected) exposure to COVID-19
CPT/HCPCS: 36415; 71045; 80048; 80061; 80076; 81003; 83735; 83880; 84443; 84484; 85025; 85610; 87804; 93005; 96374; 96375; 99285; J1940; J2930; U0003

== ENCOUNTER 2022-07-14 17:48 | Inpatient (IN) | payer OTHER, MEDICARE ==
--- OUTSIDE RECORDS SUMMARY | 2022-07-14 17:53 | XMS REPORT | Continuity of Care Document ---
:1940 Author Organization [facility] t Address [address] [place] [address] Care Team Providers Name Role Phone Paz Perez MD Primary Care Physician PAZ PEREZ Attending Clinician Unavailable MD PAZ PEREZ Attending Clinician Unavailable LEO MURRELL, [facility] NURSE Attending Clinician Unavailable LEO MURRELL, CLOTH DESIZING RANGE OPERATOR CHIEF Attending Clinician Unavailable Serina Begum Attending Clinician PAZ PEREZ Admitting Clinician Unavailable MD PAZ PEREZ Admitting Clinician Unavailable Serina Begum Admitting Clinician Problems Condition Condition Condition Status Onset Resolution Last Treating Co mments Source Name Details Category Date Date Treatment Clinician Date Persistent Persistent Disease Active M ethodi atrial atrial 3-18 st fibrillati fibrillati 00:00: Ho spita on on 00 l ISCHEMIC ISCHEMIC Diagnosis Active 2015-02-19 Memoria STROKE STROKE 2- 08:33:00 l Active 00:00: Elia 11/23/2014 [facility] LFLT LFLT Diagnosis Active 2015-02-19 Mem oria TRANSFER#5 TRANSFER#5 - 08:34:00 l 34 34 Active 00:00: [place] 11/23/2014 [facility] Encounter Encounter Problem Active [place] for for Physici administra administra an s tion of tion of COVID-19 COVID-19 vaccine vaccine Retention Retention Problem Active 2017-06-17 Memoria of urine, of urine, 02:45:15 l unspecifie unspecifie Renzo carrillo Active Problem 06/17/2017 [facility] Hypertensi Hypertens Problem Active 2017-06-17 Memoria ve heart adrienne heart 02:45:15 l and and [place] chronic chronic kidney kidney disease, disease, benign, benign, with heart with heart failure failure and with and with chronic chronic kidney kidney disease disease stage I stage I through through stage IV, stage IV, or or unspecifie unspecifie d d Active Problem 06/17/2017 [facility] 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, e 02:45:15 l not disorder, Elia elsewhere not classified elsewhere classified Active Problem 06/17/2017 [facility] Urinary Urinary Problem Active 2017-06-17 Me moria tract tract 02:45:15 l infection, infection, He rmann site not site not specified specified Active Problem 06/17/2017 [facility] Unspecifie Unspecifi Problem Active 2017-06-17 Memoria d ed 02:45:15 l arthropath arthropath He rmann y, site y, site unspecifie unspecifie d d Active Problem 06/17/2017 [facility] Frequency Problem Active 2017-06-17 Me moria of Frequency 02:45:15 l micturitio of Epifanio n n micturitio n Active Problem 06/17/2017 [facility] Morbid Morbid Problem Active 2017-06-17 Alek bethany obesity obesity 02:45:15 l Active Elia Problem 06/17/2017 [facility] Female Female Problem Active 2017-06-17 Alek bethany genuine genuine 02:45:15 l stress stress [place] incontinen incontinen ce ce Active Problem 06/17/2017 [facility] Nonspecifi Nonspecif Problem Active 2017-06-17 Memoria c abnormal ic 02:45:15 l electrocar abnormal Herm alexandra diogram electrocar (ECG) diogram (EKG) (ECG) (EKG) Active Problem 06/17/2017 [facility] Palpitatio Palpitati Problem Active 2017-06-17 Memoria ns ons Active 02:45:15 l Problem [place] 06/17/2017 [facility] Other Other Problem Active 2017-06-17 Memor ia specified specified 02:45:15 l cardiac cardiac Elia dysrhythmi dysrhythmi as as Active Problem 06/17/2017 [facility] Upper Upper Problem Active 2017-06-17 Memor ia respirator respirator 02:45:15 l y tract y tract [place] hypersensi hypersensi tivity tivity reaction, reaction, site site unspecifie unspecifie d d Active Problem 06/17/2017 [facility] Unspecifie Unspecifi Problem Active 2017-06-17 Memoria d ed 02:45:15 l transient transient Herm alexandra cerebral cerebral ischemia ischemia Active Problem 06/17/2017 [facility] Personal Personal Problem Active 2017-06-17 Memoria history of history of 02:45:15 l fall fall Elia Active Problem 06/17/2017 [facility] Acute Acute Problem Active 2017-06-17 Memor ia upper upper 02:45:15 l respirator respirator He rmann y y infections infections of of unspecifie unspecifie d site d site Active Problem 06/17/2017 [facility] CVA CVA Diagnosis Active 2015-02-19 Mem oria Active 08:33:00 l [facility] Gastroesop Gastroeso Problem Resolve 2014-11-28 Memoria hageal phageal d 15:24:41 l reflux reflux Elia disease disease (disorder) (disorder) Resolved Problem 11/28/2014 [facility] Hyperchole Problem Resolve 2014-11-28 Memoria sterolemia Hyperchole d 15:24:41 l (disorder) sterolemia He rmann (disorder) Resolved Problem 11/28/2014 [facility] Hyperlipid Hyperlipi Problem Resolve 2014-11-28 Memoria emia demia d 15:24:41 l (disorder) (disorder) He rmann Resolved Problem 11/28/2014 [facility] Hypertensi Hypertens Problem Resolve 2014-11-28 Memoria ve adrienne d 15:24:41 l disorder, disorder, Herm alexandra systemic systemic arterial arterial (disorder) (disorder) Resolved Problem 11/28/2014 [facility] Hypothyroi Hypothyro Problem Resolve 2014-11-28 Memoria dism idism d 15:24:41 l (disorder) (disorder) He rmann Resolved Problem 11/28/2014 [facility] Atrial Atrial Problem Active 2017-06-17 Alek bethany fibrillati fibrillati 02:45:15 l on on Active Elia Problem 06/17/2017 [facility] Personal Personal Problem Active 2017-06-17 Memoria history of history of 02:45:15 l transient transient Herm alexandra ischemic ischemic attack attack [TIA], and [TIA], and cerebral cerebral infarction infarction without without residual residual deficits deficits Active Problem 06/17/2017 [facility] Palpitatio Palpitati Problem Active 2017-06-17 Memoria ns ons Active 02:45:15 l Problem Elia 06/17/2017 [facility] Transient Transient Problem Active 2017-06-17 Memoria cerebral cerebral 02:45:15 l ischemic ischemic Epifanio n attack, attack, unspecifie unspecifie d d Active Problem 06/17/2017 [facility] Bradycardi Bradycard Problem Active 2017-06-17 Memoria a, ia, 02:45:15 l unspecifie unspecifie He rmann d d Active Problem 06/17/2017 [facility] Personal Personal Problem Active 2017-06-17 Memoria history of history of 02:45:15 l transient transient Herm alexandra ischemic ischemic attack attack (TIA), and (TIA), and cerebral cerebral infarction infarction without without residual residual deficits deficits Active Problem 06/17/2017 [facility] History of History Problem Active 2017-06-17 Memoria falling of falling 02:45:15 l Active Elia Problem 06/17/2017 [facility] Abnormal Abnormal Problem Active 2017-06-17 Memoria electrocar electrocar 02:45:15 l diogram diogram [place] [ECG] [ECG] [EKG] [EKG] Active Problem 06/17/2017 [facility] Arthropath Arthropat Problem Active 2017-06-17 Memoria y, hy, 02:45:15 l unspecifie unspecifie He rmann d d Active Problem 06/17/2017 [facility] Major Major Problem Active 2017-06-17 Memor ia depressive depressive 02:45:15 l disorder, disorder, Herm alexandra single single episode, episode, unspecifie unspecifie d d Active Problem 06/17/2017 [facility] Chest Chest Problem Active 2017-06-17 Memor ia pain, pain, 02:45:15 l unspecifie unspecifie He rmann d d Active Problem 06/17/2017 [facility] Shortness Shortness Problem Active 2017-06-17 Memoria of breath of breath 02:45:15 l Active Elia Problem 06/17/2017 [facility] Constipati Constipat Problem Active 2017-06-17 Memoria on, ion, 02:45:15 l unspecifie unspecifie He rmann d d Active Problem 06/17/2017 [facility] Hypothyroi Hypothyro Problem Active 2017-06-17 Memoria dism, idism, 02:45:15 l unspecifie unspecifie He rmann d d Active Problem 06/17/2017 [facility] Hyperlipid Hyperlipi Problem Active 2017-06-17 Memoria emia, demia, 02:45:15 l unspecifie unspecifie He rmann d d Active Problem 06/17/2017 [facility] Chronic Chronic Problem Active 2017-06-17 Me moria kidney kidney 02:45:15 l disease, disease, Epifanio n unspecifie unspecifie d d Active Problem 06/17/2017 [facility] Insomnia, Insomnia, Problem Active 2017-06-17 Memoria unspecifie unspecifie 02:45:15 l d d Active [place] Problem 06/17/2017 [facility] Nonrheumat Nonrheuma Problem Active 2017-06-17 Memoria ic mitral tic mitral 02:45:15 l (valve) (valve) Elia insufficie insufficie ncy ncy Active Problem 06/17/2017 [facility] Paroxysmal Problem Active 2017-06-17 M emoria atrial Paroxysmal 02:45:15 l fibrillati atrial Epifanio n on fibrillati on Active Problem 06/17/2017 [facility] Occlusion Occlusion Problem Active 2017-06-17 Memoria and and 02:45:15 l 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 Active Problem 06/17/2017 [facility] Chronic Chronic Problem Active 2017-06-17 Me moria kidney kidney 02:45:15 l disease, disease, Epifanio n Stage III Stage III (moderate) (moderate) Active Problem 06/17/2017 [facility] Congestive Congestiv Problem Active 2017-06-17 Memoria heart e heart 02:45:15 l failure, failure, Epifanio n unspecifie unspecifie d d Active Problem 06/17/2017 [facility] Hypertensi Hypertens Problem Active 2017-06-17 Memoria on ion 02:45:15 l essential essential Herm alexandra benign benign Active Problem 06/17/2017 [facility] Occlusion Occlusion Problem Active 2017-06-17 Memoria and and 02:45:15 l stenosis stenosis Epifanio n of carotid of carotid artery artery without without mention of mention of cerebral cerebral infarction infarction Active Problem 06/17/2017 [facility] Insomnia, Insomnia, Problem Active 2017-06-17 Memoria unspecifie unspecifie 02:45:15 l d d Active [place] Problem 06/17/2017 [facility] 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 02:45:15 l disorders disorders Herm alexandra Active Problem 06/17/2017 [facility] Other and Other and Problem Active 2017-06-17 Memoria unspecifie unspecifie 02:45:15 l d d [place] hyperlipid hyperlipid emia emia Active Problem 06/17/2017 [facility] Unspecifie Problem Active 2017-06-17 M emoria d Unspecifie 02:45:15 l hypothyroi d Epifanio n dism hypothyroi dism Active Problem 06/17/2017 [facility] Obesity, Obesity, Problem Active 2017-06-17 Memoria unspecifie unspecifie 02:45:15 l d d Active [place] Problem 06/17/2017 [facility] Other Other Problem Active 2017-06-17 Memor ia malaise malaise 02:45:15 l and and [place] fatigue fatigue Active Problem 06/17/2017 [facility] Shortness Shortness Problem Active 2017-06-17 Memoria of breath of breath 02:45:15 l Active [place] Problem 06/17/2017 [facility] Chest Chest Problem Active 2017-06-17 Memor ia pain, pain, 02:45:15 l unspecifie unspecifie He rmann d d Active Problem 06/17/2017 [facility] Chronic Chronic Problem Active 2017-06-17 Me moria diastolic diastolic 02:45:15 l (congestiv (congestiv He rmann e) heart e) heart failure failure Active Problem 06/17/2017 [facility] Unspecifie Unspecifi Problem Active 2017-06-17 Memoria d ed 02:45:15 l constipati constipati He rmann on on Active Problem 06/17/2017 [facility] Hypertensi Diagnosis Active 2017-06-17 Memoria ve heart Hypertensi 02:45:15 l and ve heart [place] chronic and kidney chronic disease kidney with heart disease failure with heart and stage failure 1 through and stage stage 4 1 through chronic stage 4 kidney chronic disease, kidney or disease, unspecifie or d chronic unspecifie kidney d chronic disease kidney disease Active Diagnosis 06/17/2017 [facility] Impaired Impaired Problem Active 2017-06-17 Memoria fasting fasting 02:45:15 l blood blood Elia sugar sugar Active Problem 06/17/2017 [facility] Overactive Overactiv Problem Active 2017-06-17 Memoria bladder e bladder 02:45:15 l Active [place] Problem 06/17/2017 [facility] Incontinen Problem Active 2017-06-17 M emoria ce without Incontinen 02:45:15 l sensory ce without Sunni nn awareness sensory awareness Active Problem 06/17/2017 [facility] Encounter Encounter Problem Active 2017-06-17 Memoria for for 02:45:15 l screening screening Herm alexandra for for diabetes diabetes mellitus mellitus Active Problem 06/17/2017 [facility] History of History of Problem Resolve [place] [...] ents Source Name Type Date Date Clinician Maycol Propensi Active Shortness Of Me thodi Inhibito ty to Breath 3-18 st rs adverse 00:00: [facility]osp[facility] reaction 00 l s to drug Hydralaz Propensi Active Swelling Meth opal ine ty to 3-18 st adverse 00:00: [facility]osp[facility] reaction 00 l s to drug Pentobar Propensi Active Other (See Pt can Me thodi bital ty to Comments) 3-[address] Sodium adverse 00:00: remember [facility]ospita reaction 00 it l s to happens drug about 60 yrs ago Other Propensi Active Itching Patient Method i ty to 3-[address] adverse 00:00: she is Hospita reaction 00 allergic l s to a blood pressure medicatio n that caused itching but she does not know the name. Nembutal Allergy Active [facility] to drug [facility] (finding ans ) Family History Family Member Diagnosis Comments Start Date Stop Date Source Mother Family history of [facility] pancreatic cancer Father Family history of cardiac [facility] disorder Social History Social Habit Start Date Stop Date Quantity Comments Source History of Current smoker [facility] tobacco use [facility] Tobacco use and 2021-01-07 2021-01-07 Smokeless tobacco [facility] exposure 00:00:00 00:00:00 [facility]user Hospital Smoking 2016-09-27 2016-09-27 [facility] nn 00:00:00 00:00:00 Sex [birth year] [facility] 00:00:00 00:00:00 [facility] Smoking Status Start Date Stop Date Source Ex-smoker 2021-01-07 00:00:00 2021-01-07 00:00:00 [facility] Social History [facility] Medications Ordered Filled Start Stop Current Ordering Indication Dosage Frequency Signature Comments Components Source Medication Medication Date Date Medication? Clinician (SIG) Name Name levothyroxi Yes 112ug QD Take 112 M ethodi ne 3-[address] (SYNTHROID) 14:14: mouth Hospi ta 112 mcg 45 daily. l tablet doxazosin Yes Take by Metho di (CARDURA) 4 3-[address] MG tablet 14:14: Taking 1/2 Ho spita 45 tablet in l the morning and 1 tablet in the evening losartan Yes 50mg Q.5D Take 50 mg Met hodi (COZAAR) 50 3-[address] MG tablet 14:14: (two) Hospita 45 times a l day. diltiazem Yes 120mg QD Take 120 Met hodi CD 3-[address] (CardIZEM 14:14: mouth Hospita CD) 120 MG 45 daily. l 24 hr capsule apixaban Yes 5mg Q.5D Take 5 mg Meth opal (ELIQUIS) 5 3-[address] mg tablet 14:14: (two) Hospita 45 times a l day. furosemide 2020-0 Yes 20mg Q.5D Take 20 mg M ethodi (LASIX) 20 3-[address] mg tablet 14:14: (two) Hospita 45 times a l day. atenoloL 2020-0 Yes 25mg QD Take 25 mg Met hodi (TENORMIN) 3-[address] 50 MG 14:14: daily. Hospita tablet 45 l gabapentin 2020-0 Yes 200mg Q.[id number] Take 200 Methodi (NEURONTIN) 3-21 [id number] mg by s t 100 mg 14:14: 3D mouth 3 Hospita capsule 45 (three) l times a day. icosapent 2020-0 Yes 1g Q.5D Take 1 g Meth opal ethyL 3-[address] (Vascepa) 1 14:14: (two) Hospi ta gram 45 times a l capsule day with meals. liothyronin 2020-0 Yes 10ug QD Take 10 Met hodi e (CYTOMEL) 3-[address] 5 MCG 14:14: mouth Hospita tablet 45 daily. l aspirin 2020-0 Yes 81mg QD Take 81 mg Meth opal (ECOTRIN) 3-[address] 81 MG 14:14: daily. Hospita enteric 45 l coated tablet clonIDINE 2020-0 Yes .1mg Q.5D Take 1 Method i (CATAPRES) 3-[address] 0.1 MG 00:00: (0.1 mg Hospita tablet 00 total) by l mouth 2 (two) times a day. omeprazole 2020-0 Yes 20mg Q.5D Take 1 Metho di (PriLOSEC) 3-[address] 20 MG 00:00: (20 mg Hospita capsule 00 total) by l mouth 2 (two) times a day. amLODIPine amLODIPine 2019-0 Yes MUNACHI 1 QD TAKE 1 [facility] Besylate 5 Besylate 5 9-25 OKPALA TABLET Physici MG Oral MG Oral 00:00: [facility] NURSE DAILY. ans Tablet Tablet 00 Gabapentin Gabapentin 2019-0 Yes Take 1 UT 100 MG Oral 100 MG Oral 9-23 tablet AM Physici Capsule Capsule 00:00: , 200 in ans 00 the afternoon, 200 in the evening clonazePAM clonazePAM 2020-0 Yes 1 QD TAKE 1 UT 1 [...] DAILY. ans Oral Tablet Oral Tablet 00 Eliquis Yes Melissa Ali 1 tablet M emoria 8-17 l 00:00: [place] Edarbyclor Edarbyclor Yes MUNACHI 1 QD TAKE 1 UT 40-25 MG 40-25 MG 4-20 OKPALA TABLET BY Physici Oral Tablet Oral Tablet 00:00: [facility] NURSE MOUTH ONCE ans 00 DAILY Edarbyclor Yes Melissa Ali 1 tablet Memoria 3-28 l 00:00: Elia 00 Edarbyclor Yes Melissa Ali 1 tablet Memoria 3-13 l 00:00: Elia 00 Tikosyn No Melissa Ali TAKE ONE M emoria 3-01 CAPSULE BY l 03:45: MOUTH Elia 56 TWICE A DAY Dofetilide Yes Melissa Salmon 1 capsule Memoria 2-28 l 00:00: [place] 00 Doxazosin 2015-10 No Melissa Salmon TAKE ONE Memoria Mesylate 1-19 TABLET BY l 03:48: MOUTH Elia 47 DAILY Cipro Yes Bennett Salmon 1 tablet Me moria 6-24 l 00:00: [place] 00 Pravastatin Pravastatin Yes MUNACHI 1 QD TAKE 1 UT Sodium 40 Sodium 40 7-31 OKPALA TABLET P hysici MG Oral MG Oral 00:00: [facility] NURSE DAILY. ans Tablet Tablet 00 Viteyes Viteyes Yes MUNACHI 1 QD TAKE 1 UT Complete Complete 3-17 OKPALA CAPSULE Ph ysici Oral Oral 00:00: [facility] NURSE DAILY. ans Capsule Capsule 00 Liothyronin Liothyronin Yes MUNACHI 1 QD TAKE 1 UT e Sodium 5 e Sodium 5 3-17 OKPALA TABLET Physici MCG Oral MCG Oral 00:00: [facility] NURSE DAILY. ans Tablet Tablet 00 Doxazosin Doxazosin Yes LEO 1 Q0.5D TAKE 1 [facility] Mesylate 4 Mesylate 4 3-17 OKPALA TABLET [facility] MG Oral MG Oral 00:00: [facility] NURSE TWICE ans Tablet Tablet 00 DAILY Warfarin No Notes: Char 2-04 Nurse to l 18:03: ensure [place] 00 documentat ion of patient education [facility]. Avoid large intake of vitamin-K containing foods diet. (Same As: Coumadin) valsartan Yes 40 mg = 1 Mem oria 40 mg oral 2-04 tab, PO, l tablet 17:52: Q12H, # 60 Sunni nn 00 tab, 3 Refill(s) atorvastati Yes 40 mg = 1 M emoria n 40 mg 2-04 tab, PO, l oral tablet 17:52: Bedtime, # [place] 00 30 tab, 3 Refill(s) clopidogrel Yes 75 mg = 1 M emoria 75 mg oral 2-04 tab, PO, l tablet 17:52: Daily, # Elia 00 30 tab, 0 Refill(s) warfarin 5 Yes 5 mg, PO, Me moria mg oral 2-04 Daily, # 2 l tablet 17:52: tab, 0 Elia 00 Refill(s) Atenolol Yes 12.5 mg = M emoria MG Oral 2-04 0.5 tab, l Tablet 17:52: PO, Daily, Sunni 0 Refill(s) valsartan No Notes: Memori a 2-04 Same as l 15:00: Diovan Protonix No Notes: Memoria 2-03 Tablet l 22:30: should not be chewed or crushed. (Same as: Protonix) Atenolol No Notes: Memoria 2-03 (Same l 15:00: As:Tenormi n) valsartan No 320 mg, Memor ia 2 Route: PO, l 15:00: Drug form: Elia 00 TAB, Daily, Dosing Weight 114.318, kg, Start date: 11/25/14 9:00:00, Duration: 30 day, Stop date: 12/24/14 9:00:00 Thyroxine No Notes: Memori a 2-03 Take 1 l 12:30: hour before or 2 hours after meal; Enteral feeds may interefere with the absorption of this medication . (Same as:Levothr oid, Synthroid) heparin, No Notes: Memoria porcine -03 porcine l 04:00: heparin Plavix No Notes: Memoria 2-03 (Same As: l 04:00: Plavix) Tylenol No Notes: Do Memor ia 2- not exceed l 03:16: 4 gm/day. (Same as: Tylenol) atorvastati No Notes: Alek bethany n 2-03 (Same as: l 03:00: Lipitor) Bupropion No Notes: (Do Me moria 2 not crush) l 23:00: (Same As: Elia 00 Wellbutrin SR) valsartan No 40 mg, Memori a 2-02 Route: PO, l 23:00: BID, Elia 00 Dosing Weight 114.318, kg, Start date: 11/24/14 17:00:00, Duration: 30 day, Stop date: 12/24/14 9:00:00 Triiodothyr No Notes: Alek bethany onine 11-24 (Same as: l 21:35: Cytomel) [place] 00 Atenolol No 50 mg = Memori a [...] Elia Extended 00 Refill(s) Release Tablet omeprazole Yes 40 mg = 1 Me moria 40 mg oral 2-02 cap, PO, l delayed 20:47: Daily, # Epifanio n release 00 30 cap, 0 capsule Refill(s) Metolazone No 5 mg = 1 Mem oria 5 MG Oral 2-02 tab, PO, l Tablet 20:47: Daily, # [place] 00 30 tab, 0 Refill(s) liothyronin Yes 10 Memori a e 5 mcg 2-02 microgram l oral tablet 20:47: = 2 tab, He rmann 00 PO, QAM, # 30 tab, 0 Refill(s) Fenofibrate No 160 mg = 1 Memoria 160 MG Oral 2-02 tab, PO, l Tablet 20:47: Daily, # [place] 00 30 tab, 0 Refill(s) Zolpidem Yes [...] tab, PO, l tablet 20:47: Daily, # [place] 00 30 tab, 0 Refill(s) valsartan No [...] polysacchar Saline No Notes: Memoria Flush 0.9% -02 (Same as: l 15:00: BD Elia 00 Posiflush) Versed No Notes: Memoria 2-02 (Same as: l 14:31: Versed) Elia 00 Pravastatin No 40 mg = 1 M emoria Sodium 40 2-02 tab, PO, l MG Oral 13:59: Bedtime, # Herm alexandra Tablet 00 30 tab, 0 [Pravachol] Refill(s) aspirin No 0 Memoria 2-02 Refill(s) l 13:59: [place] 00 Fenofibrate No 160 mg = 1 Memoria 160 MG Oral 2-02 tab, PO, l Tablet 13:59: Daily, # [place] 00 30 tab, 0 Refill(s) Atenolol No 0 Memoria 2-02 Refill(s) l 13:59: Elia 00 valsartan No 320 mg = 1 Me moria 320 mg oral 2-02 tab, PO, l tablet 13:59: Daily, # [place] 00 30 tab, 0 Refill(s) Potassium No 0 Memoria Chloride 20 2-02 Refill(s) l MEQ 13:59: Elia Extended 00 Release Tablet Metolazone No 5 mg = 1 Mem oria 5 MG Oral 2-02 tab, PO, l Tablet 13:59: Daily, # [place] 00 30 tab, 0 Refill(s) Furosemide No [...] Memoria 2-02 (Same as: l 13:08: Zofran) [place] 00 Tylenol No Notes: Do Memor ia 11-24 [...] Tylenol) Dofetilide Dofetilide Yes MUNACHI 1 capsule [place] 500 MCG 500 MCG OKPALA daily Physic i Oral Oral [facility] ans Capsule Capsule Vitamin D-3 Vitamin D-3 Yes 1 tablet UT CAPS CAPS daily Physici ans Vascepa 1 Vascepa 1 Yes MUNACHI 1 capsule UT GM Oral GM Oral OKPALA daily Physic i Capsule Capsule [facility] N[facility]SE ans Immunizations Ordered Immunization Filled Immunization Date Status Commen ts Source Name Name [employer] 2020-11-28 Completed [facility] COVID-19 Vacc 30 14:02:00 MCG/0.3ML Intramuscular Suspension Vital Signs Vital Name Observation Time Observation Value Comments Source Systolic blood 2020-07-17 146 mm[Hg] Location: [facility]; [facility] pressure 11:51:00 Position: Standing Diastolic blood 2020-07-17 67 mm[Hg] Location: [facility]; [facility] pressure 11:51:00 Position: Standing Heart Rate 2020-07-17 65 /min [facility] 11:51:00 BP Systolic 2019-07-23 152 mm[Hg] Location: [facility]; [facility] 11:51:00 Position: Sitting BP Diastolic 2019-07-23 76 mm[Hg] Location: [facility]; [facility] 11:51:00 Position: Sitting Height 2019-07-23 62 [in_us] [facility] 11:51:00 Weight 2019-07-23 248.5 [lb_av] [facility] 11:51:00 Body Mass Index 2019-07-23 45.45 kg/m2 [facility] Calculated 11:51:00 Heart Rate 2019-07-23 66 /min Location: L [facility] 11:51:00 Brachial Artery; Respitory Rate 2014-11-26 [facility] 17:54:00 Systolic (mm Hg) 2014-11-26 [facility] He rmann 17:54:00 Diastolic (mm Hg) 2014-11-26 [facility] ermann 17:54:00 Heart Rate 2014-11-26 [facility] Epifanio [...] alexandra 06:47:00 Height 2014-11-24 162.56 cm Heidy Kimblean n 06:47:00 Procedures Procedure Date / Time Performing Clinician Source Performed History of Hysterectomy [facility] of [facility] of Bladder [facility] History of Neuroplasty [facility] Decompression Median Nerve At Carpal Tunnel History of Esophagogastric [facility] Fundoplasty [place] Fundoplication History of Knee Surgery [facility] Right Knee replacement Heidy Epifanio n Plan of Care Planned Activity Planned Date Details Comments Source Future Scheduled 2022-06-24 HEPATITIS B VACCINES [facility] Test 21:22:46 (1 of 3 - 3-dose series) [code = HEPATITIS B VACCINES (1 of 3 - 3-dose series)] Future Scheduled 2022-06-24 65+ [facility] 21:22:46 VACCINE (1 - PCV) [code = 65+ PNEUMOCOCCAL VACCINE (1 - PCV)] Future Scheduled 2022-06-24 SHINGLES VACCINES (1 Met [facility] Test 21:22:46 of 2) [code = SHINGLES VACCINES (1 of 2)] Future Scheduled 2022-06-24 COVID-19 VACCINE (2 - [facility] Test 21:22:46 Pfizer series) [code = COVID-19 VACCINE (2 - Pfizer series)] Future Scheduled 2022-06-24 INFLUENZA VACCINE [facility] Test 21:22:46 [code = INFLUENZA VACCINE] Encounters Start End Encounter Admission Attending Care Care Encounter Source Date/Time Date/Time Type Type Clinicians Facility Department ID 2021-01-07 2021-01-10 Inpatient [facility] [id number] [place] 00:00:00 00:00:[address] 2021-01-01 2021-01-01 Outpatient [facility] [id number] [place] 00:00:00 00:00:[address] 2020-07-17 2020-07-17 AppointBLUE [facility] - [id number] [place] 11:30:[place] 11:30:00 t; LEO MURRELL, Jean Ph ysici LEO, BURN CENTER NURSE Medical ans [facility]URN CENTER NURSE Center 2019-07-23 2019-07-23 BLUE [facility] - [id number] [place] 11:30:[place] 11:30:00 t; [place] [facility] [place], BURN CENTER NURSE Medical ans BURN CENTER NURSE Center 2018-08-08 2018-08-[address] [facility] [id number] [place] 11:30:00 11:30:00 t; LEO MURRELL, Ph ysici LEO, BURN CENTER NURSE ans BURN CENTER NURSE 2017-08-08 2017-08-[address] 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 2017-06-16 2017-06-16 Outpatient Cardiolog Cardiology [id number] [place] 12:43:00 12:43:00 y Consultants angel jimenez 2017-06-08 2017-06-08 Outpatient Cardiolog Cardiology [id number] [place] 15:30:00 15:30:00 y Consultants angel jimenez 2017-02-03 2017-02-03 Outpatient Cardiolog Cardiology [id number] [place] 11:44:00 11:44:00 y Consultants angel jimenez 2017-01-17 2017-01-17 Outpatient Cardiolog Cardiology [id number] [place] 09:18:00 09:18:00 y Consultants angel jimenez 2016-12-20 2016-12-20 Unknown nullFlavo [place] py05pv09 -6 [place] 15:57:00 15:57:00 r Cardiology 101-4fd3-a l Consultants 1ce-69e4b8 H ermann 0b31af 2016-12-20 2016-12-20 Outpatient [facility] [id number] [place] 09:57:00 09:57:00 Cardiolog Cardiology l y Consultants Lamin Live 2016-09-09 2016-09-09 Other nullFlavo [place] [id number] -2 [place] 21:06:00 21:06:00 r Cardiology c73-6zkz-n l Consultants [id number]-bb81b8 H ermann 6dt180 2016-09-09 2016-09-09 Other nullFlavo [place] [id number] -2 [place] 21:06:00 21:06:00 r Cardiology 266-47ac-a l Consultants 856-5bfbbf H ermann [id number] 2016-09-09 2016-09-09 Outpatient [facility] [id number] [place] 15:06:00 15:06:00 Cardiolog Cardiology l y Consultants Lamin Live 2016-04-15 2016-04-15 Unknown nullFlavo [place] [id number] -1 [place] 20:19:00 20:19:00 r Cardiology ea2-4165-9 l Consultants 9z4-df5m56 H ermann 937ca3 2016-04-15 2016-04-15 Unknown nullFlavo [place] [id number] -8 [place] 20:19:00 20:19:00 r Cardiology d8g-1225-5 l Consultants 6ce-fc0df4 H ermann 3m178m 2016-04-15 2016-04-15 Unknown nullFlavo [place] [id number] -4 [facility] 20:11:00 20:11:00 r Cardiology w1r-050b-c l Consultants 574-e41b2a H ermann 0394d2 2016-04-15 2016-04-15 Unknown nullFlavo [place] [id number] -d [facility] 20:11:00 20:11:00 r Cardiology 3ea-4ecc-a l Consultants f76-cqu267 H ermann 6b30d9 2016-04-15 2016-04-15 Unknown nullFlavo [place] [id number] -e [place] 19:19:00 19:19:00 r Cardiology 319-44a5-b l Consultants db5-5d792t H ermalexandra 4b8d61 2016-04-15 2016-04-15 Unknown nullFlavo [place] [id number] -f [place] 19:19:00 19:19:00 r Cardiology 000-4884-8 l Consultants [id number] H ermann b66bd3 2016-04-15 2016-04-15 Unknown nullFlavo [place] glh8s97o -d [facility] 19:11:00 19:11:00 r Cardiology 465-41ef-9 l Consultants 6e9-3q662k ermann 684cbd 2016-04-15 2016-04-15 Unknown nullFlavo [place] [id number] -e [facility] 19:11:00 19:11:00 r Cardiology h0c-0za0-q l Consultants fb4-4a3c19 H ermalexandra xui371 2016-04-15 2016-04-15 Outpatient [facility] [id number] [place] 14:19:00 14:19:00 Cardiolog Cardiology l y Consultants Lamin morris Consultnorma 2016-04-15 2016-04-15 Outpatient [facility] [id number] [place] 14:11:00 14:11:00 Cardiolog Cardiology l y Consultants Lamin morris Consultan 2016-03-11 2016-03-11 Unknown nullFlavo [place] [id number] -e [facility] 19:22:00 19:22:00 r Cardiology 4ba-4806-9 l Consultants db1-221021 H ermann e818ec 2016-03-11 2016-03-11 Unknown nullFlavo Chávez [id number] -f [place] 19:22:00 19:22:00 r Cardiology n0o-71mm-0 l Consultants [id number] H ermann 99812s 2016-03-11 2016-03-11 Unknown nullFlavo Chávez [id number] -f [place] 18:22:00 18:22:00 r Cardiology bfd-4198-9 l Consultants 60a-6add17 H ermann f6b1d0 2016-03-11 2016-03-11 Unknown nullFlavo [place] [id number] -8 [facility] 18:22:00 18:22:00 r Cardiology 38e-4869-9 l Consultants eaa-28a715 H ermann b77d96 2016-03-11 2016-03-11 Unknown nullFlavo Chávez 34nnct6e -5 [place] 18:22:00 18:22:00 r Cardiology 459-4782-a l Consultants 1da-ecabf6 ermann 9a49de 2016-03-11 2016-03-11 Outpatient [facility] [id number] [place] 13:22:00 13:22:00 Cardiolog Cardiology l y Consultants Lamin Live 2016-01-29 2016-01-29 Unknown nullFlavo Chávez [id number] -7 [place] 20:05:00 20:05:00 r Cardiology j47-0932-p l Consultants bb3-ad08ef brinaa 55245t 2016-01-29 2016-01-29 Unknown nullFlavo [place] [id number] -c [facility] 20:05:00 20:05:00 r Cardiology i81-7v48-j l Consultants 3j7-4ay197 H ermann 2964cd 2016-01-29 2016-01-29 Unknown nullFlavo Chávez b92qs06q -5 [place] 19:05:00 19:05:00 r Cardiology bc1-404e-b l Consultants [id number] H ermann 749f4e 2016-01-29 2016-01-29 Unknown nullFlavo Chávez wmc5046o -0 [place] 19:05:00 19:05:00 r Cardiology cec-4529-8 l Consultants [id number]-c60048 H ermalexandra 840d65 2016-01-29 2016-01-29 Unknown nullFlavo [place] [id number] -[id number] [facility] 19:05:00 19:05:00 r Cardiology g97-6f7y-b l Consultants 18c-1d80e6 H ermann 4v7002 2016-01-29 2016-01-29 Unknown nullFlavo [place] 1353afad -2 [facility] 19:05:00 19:05:00 r Cardiology 193-459d-a l Consultants e02-64k6fq H briana 52afe9 2016-01-29 2016-01-29 Outpatient [facility] [id number] [place] 14:05:00 14:05:00 Cardiolog Cardiology l y Consultants Lamin urrutia 2015-08-12 2015-08-12 Unknown nullFlavo [place] [id number] -9 [facility] 22:30:00 22:30:00 r Cardiology 1c6-4m95-d l Consultants g9t-v55753 H ermalexandra aea06f 2015-08-12 2015-08-12 Unknown nullFlavo [place] [id number] -2 [facility] 22:30:00 22:30:00 r Cardiology 574-4822-8 l Consultants a10-i8s9dl H ermalexandra 9b28e5 2015-08-12 2015-08-12 Unknown nullFlavo [place] [id number] -1 [facility] 21:30:00 21:30:00 r Cardiology eb4-4667-b l Consultants 94d-edaa6e H ermalexandra aeca55 2015-08-12 2015-08-12 Unknown nullFlavo [place] 5p7o6s10 -d [facility] 21:30:00 21:30:00 r Cardiology l1o-1s14-6 l Consultants m4b-b3791k H ermann 0c0af9 2015-08-12 2015-08-12 Unknown nullFlavo [place] [id number] -8 [facility] 21:30:00 21:30:00 r Cardiology h64-054b-9 l Consultants h27-t991d8 H ermann lm606i 2015-08-12 2015-08-12 Unknown nullFlavo [place] [id number] -2 [facility] 21:30:00 21:30:00 r Cardiology fa0-4be5-a l Consultants y11-vfuoc0 H ermann 4b3cb8 2015-03-23 2015-03-23 Unknown nullFlavo [place] [id number] -3 [facility] 15:14:00 15:14:00 r Cardiology de5-4cd2-8 l Consultants 120-85eb7f H ermann 3a58f7 2015-03-23 2015-03-23 Unknown nullFlavo [place] b3965ihj -4 [facility] 15:14:00 15:14:00 r Cardiology f7h-231p-j l Consultants x06-422rpm H ermann 97g837 2015-03-23 2015-03-23 Unknown nullFlavo [place] 5r0yw23b -2 [facility] 14:14:00 14:14:00 r Cardiology 1fa-4ddb-8 l Consultants 1f8-6x5707 H ermann 07l304 2015-03-23 2015-03-23 Unknown nullFlavo [place] [id number] -b [facility] 14:14:00 14:14:00 r Cardiology 2q7-951i-f l Consultants 4fb-039c46 H ermann 903a76 2015-03-23 2015-03-23 Unknown nullFlavo K[place] v29q269t -1 [facility] 14:14:00 14:14:00 r Cardiology 921-4048-9 l Consultants bc0-30423s H ermann 294e18 2015-03-23 2015-03-23 Unknown nullFlavo [place] j1k3bmtd -2 [facility] 14:14:00 14:14:00 r Cardiology 8g0-4922-z l Consultants 7p6-d20062 H ermann cm1253 2014-12-19 2014-12-19 Unknown nullFlavo yKler m10t5vw0 -1 [place] 22:13:00 22:13:00 r Cardiology h24-3sv4-k l Consultants 6ac-a45f2b H ermann 48f05b 2014-12-19 2014-12-19 Unknown nullFlavo K[place] eu5u3r05 -d [facility] 22:13:00 22:13:00 r Cardiology 151-4702-8 l Consultants q3k-5300ea H ermann 2dx249 2014-12-19 2014-12-19 PT/INR 3.0 nullFlavo Chávez 70b0c 239-5 [place] 21:19:00 21:19:00 r Cardiology 0v2-9333-5 l Consultants c32-u9hpo4 H ermalexandra 14dab3 2014-12-19 2014-12-19 PT/INR 3.0 nullFlavo Chávez a635e fad-9 [facility] 21:19:00 21:19:00 r Cardiology m0o-4jto-3 l Consultants 060-8b5dc3 H ermann 066619 6730-02-27 2014-12-19 Unknown nullFlavo Chávez [id number] -e [facility] 21:13:00 21:13:00 r Cardiology 91a-4981-8 l Consultants 4ad-62074a ermalexandra 5446ae 2014-12-19 2014-12-19 Unknown nullFlavo Chávez [id number] -2 [facility] 21:13:00 21:13:00 r Cardiology 17f-4b2e-9 l Consultants 622-25d8a7 H ermann 78633x 2014-12-19 2014-12-19 Unknown nullFlavo Chávez [id number] -d [facility] 21:13:00 21:13:00 r Cardiology 63b-460e-b l Consultants b49-1up801 H ermalexandra 46387j 2014-12-19 2014-12-19 Unknown nullFlavo Chávez [id number] -d [facility] 21:13:00 21:13:00 r Cardiology 487-404a-a l Consultants 74b-bf18f4 H ermann 324076 9865-02-27 2014-12-19 PT/INR 3.0 nullFlavo Chávez a38af df8-2 [facility] 20:19:00 20:19:00 r Cardiology 515-4bf4-8 l Consultants 7f0-lh3056 H ermann b0bc8a 2014-12-19 2014-12-19 PT/INR 3.0 nullFlavo Chávez f64b6 1fb-d [place] 20:19:00 20:19:00 r Cardiology 63f-4a38-9 l Consultants 3q8-xm0435 H ermann 50a6a7 2014-12-19 2014-12-19 PT/INR 3.0 nullFlavo Kyler ff7ae d92-d [facility] 20:19:00 20:19:00 r Cardiology 97d-4c76-b l Consultants 560-53eb22 briana a71ce0 2014-12-19 2014-12-19 PT/INR 3.0 Estrellitao Kyler dd7c4 4ea-9 [facility] 20:19:00 20:19:00 r Cardiology 5i9-050u-z l Consultants 9j5-mkge4g briana 0aac10 2014-11-24 2014-11-26 Inpatient [facility] [id number] [place] 04:23:00 22:46:00 r Elia 66 l [facility] 2014-11-23 2014-11-26 Outpatient Begum, [id number]. [id number]. [id number] 22:23:00 16:46:00 Serina [id number] Michelle [id number] 01 Results Test Description Test Time Test Comments Results Result Comments Source SARS-CoV-2 (COVID-19) RNA [Presence] in Respiratory sp ecimen by 2021-01-01 18:46:21 NEHEMIAS with probe detection Test Item Value Reference Range Interpretation Comme nts SARS-CoV-2 (COVID-19) RNA [Presence] in Respiratory Not detected No t-Detected specimen by NEHEMIAS with probe detection (test code = 66772-6) CHEM [id number] 10:23:00 Test Item Value Reference Range Interpretation Comments Magnesium Lvl (test code = Magnesium 2.1 1.8-2.4 Lvl) [facility] [id number] 10:23:00 Test Item Value Reference Range Interpretation Comments Phosphorus (test code = Phosphorus) 2.8 2.5-4.5 [facility] TSPLO1208-90-30 10:23:00 Test Item Value Reference Range Interpretation Comments eGFR (test code = eGFR) [id number] 10:23:00 Test Item Value Reference Range Interpretation Comments Glucose Lvl (test code = Glucose Lvl) 80 70-99 [facility] LSHKA9268-34-00 10:23:00 Test Item Value Reference Range Interpretation Comments BUN (test code = BUN) 18 7-22 [facility]2015-02-04 10:23:00 Test Item Value Reference Range Interpretation Comments Creatinine Lvl (test code = Creatinine 1.3 0.5-1.4 Lvl) [facility]2015-02-04 10:23:00 Test Item Value Reference Range Interpretation Comments Sodium Lvl (test code = Sodium Lvl) 136 135-145 [facility]2015-02-04 10:23:00 Test Item Value Reference Range Interpretation Comments Chloride Lvl (test code = Chloride Lvl) 102 95-109 [facility]2015-02-04 10:23:00 Test Item Value Reference Range Interpretation Comments Potassium Lvl (test code = Potassium 3.5 3.5-5.1 Lvl) [facility]2015-02-04 10:23:00 Test Item Value Reference Range Interpretation Comments Calcium Lvl (test code = Calcium Lvl) 9.0 8.5-10.5 [facility]2015-02-04 10:23:00 Test Item Value Reference Range Interpretation Comments CO2 (test code = CO2) 25 24-32 [facility]2015-02-04 10:23:00 Test Item Value Reference Range Interpretation Comments AGAP (test code = AGAP) 12.5 10.0-20.0 [facility]HkyfilhPHCQKQTSMR7744-40-60 10:23:00 Test Item Value Reference Range Interpretation Comments RDW (test code = RDW) 13.1 11.5-14.5 [facility] ResourcesDmwlfbnMPSPMZHCHN2701-49-88 10:23:00 Test Item Value Reference Range Interpretation Comments MCH (test code = MCH) 32.4 pg 27.0-31.0 [facility]PvnxmzzIUGBXACARL8408-07-08 10:23:00 Test Item Value Reference Range Interpretation Comments MCV (test code = MCV) 93.5 80.0-98.0 [facility] ResourcesMkfhhlaLROQONINLZ1046-85-41 10:23:00 Test Item Value Reference Range Interpretation Comments MCHC (test code = MCHC) 34.6 32.0-36.0 [facility] ResourcesWjvovmpINCIDVOCCC0504-01-10 10:23:00 Test Item Value Reference Range Interpretation Comments Hct (test code = Hct) 33.6 36.0-48.0 [facility] ResourcesEctcneqSJXEZUWIBF8921-84-23 10:23:00 Test Item Value Reference Range Interpretation Comments Hgb (test code = Hgb) 11.6 12.0-16.0 [facility] ResourcesIhhqubfDFRTTRBTAQ9336-64-11 10:23:00 Test Item Value Reference Range Interpretation Comments RBC (test code = RBC) 3.60 4.20-5.40 [facility] ResourcesOrksbtkPXDLUUGSNC5868-69-52 10:23:00 Test Item Value Reference Range Interpretation Comments WBC (test code = WBC) 4.6 3.7-10.4 [facility] ResourcesWaoxcejJINOYJZHOB4148-49-08 10:23:00 Test Item Value Reference Range Interpretation Comments MPV (test code = MPV) 8.3 7.4-10.4 [facility] ResourcesXpshvjhQOZXNHCVRR9478-01-28 10:23:00 Test Item Value Reference Range Interpretation Comments Platelet (test code = Platelet) 149 133-450 [facility] ResourcesUdmqrkcSKFHVSQBGI9706-45-98 10:23:00 Test Item Value Reference Range Interpretation Comments Segs (test code = Segs) 62.3 45.0-75.0 [facility] ResourcesTamcsnjCESDXNULNC8822-08-38 10:23:00 Test Item Value Reference Range Interpretation Comments Lymphocytes # (test code = Lymphocytes 1.2 1.0-5.5 #) [facility] ResourcesFdfwnxhSJFOTEAOLS4454-59-66 10:23:00 Test Item Value Reference Range Interpretation Comments Monocytes # (test code 0.4 See_Comment [Aut omated message] The = Monocytes #) system which generated this result tra nsmitted reference range : <=0.8. The reference r criss was not used to int erpret this result as normal/abnormal . [facility] ResourcesLgrtsrtSUYWFQAKRS2575-17-81 10:23:00 Test Item Value Reference Range Interpretation Comments Eosinophils (test code = 3.0 See_Comment [A utomated message] The Eosinophils) system which ge nerated this result tra nsmitted reference range : <=4.0. The reference r criss was not used to int erpret this result as normal/abnormal . [facility] ResourcesMksxphrVWVUUHICTW0748-29-70 10:23:00 Test Item Value Reference Range Interpretation Comments Lymphocytes (test code = Lymphocytes) 26.2 20.0-40.0 [facility] ResourcesLtuuubtDKIIIIRRNG2168-26-68 10:23:00 Test Item Value Reference Range Interpretation Comments Segs-Bands # (test code = Segs-Bands #) 2.9 1.5-8.1 [facility] ResourcesRafigecRSDBXHWXZW8514-81-90 10:23:00 Test Item Value Reference Range Interpretation Comments Basophils (test code = 0.5 See_Comment [Aut omated message] The Basophils) system which ge nerated this result tra nsmitted reference range : <=1.0. The reference r criss was not used to int erpret this result as normal/abnormal . [facility] ResourcesErhzlheOGSUVXKYME7831-22-17 10:23:00 Test Item Value Reference Range Interpretation Comments Monocytes (test code = Monocytes) 8.0 2.0-12.0 [facility] ResourcesGvalzcyEADRUEPPDQ1915-03-55 10:23:00 Test Item Value Reference Range Interpretation Comments Eosinophils # (test code 0.1 See_Comment [A utomated message] The = Eosinophils #) system whic h generated this result tra nsmitted reference range : <=0.5. The reference r criss was not used to int erpret this result as normal/abnormal . [facility] [id number] 07:04:00 Test Item Value Reference Range Interpretation Comments Phosphorus (test code = Phosphorus) 3.1 2.5-4.5 [facility] [id number] 07:04:00 Test Item Value Reference Range Interpretation Comments eGFR (test code = eGFR) 34 [facility]2015-02-03 07:04:00 Test Item Value Reference Range Interpretation Comments CO2 (test code = CO2) 25 24-32 [facility] CampusChronon SystemsPSYCHIATRIC HOSPITALCVVRX4137-49-95 07:04:00 Test Item Value Reference Range Interpretation Comments AGAP (test code = AGAP) 12.8 10.0-20.0 [facility] IVBQK2048-27-12 07:04:00 Test Item Value Reference Range Interpretation Comments Calcium Lvl (test code = Calcium Lvl) 8.7 8.5-10.5 [facility]2015-02-03 07:04:00 Test Item Value Reference Range Interpretation Comments Chloride Lvl (test code = Chloride Lvl) 104 95-109 [facility]2015-02-03 07:04:00 Test Item Value Reference Range Interpretation Comments BUN (test code = BUN) 23 7-22 [facility] HospitalSSRDH7578-01-08 07:04:00 Test Item Value Reference Range Interpretation Comments Sodium Lvl (test code = Sodium Lvl) 138 135-145 [facility]2015-02-03 07:04:00 Test Item Value Reference Range Interpretation Comments Glucose Lvl (test code = Glucose Lvl) 82 70-99 [place]3715-02-03 07:04:00 Test Item Value Reference Range Interpretation Comments Creatinine Lvl (test code = Creatinine 1.5 0.5-1.4 Lvl) [facility]2015-02-03 07:04:00 Test Item Value Reference Range Interpretation Comments Potassium Lvl (test code = Potassium 3.8 3.5-5.1 Lvl) [facility]2015-02-03 07:04:00 Test Item Value Reference Range Interpretation Comments Magnesium Lvl (test code = Magnesium 2.7 1.8-2.4 Lvl) [facility] ResourcesBkfrvhmDUTIGSKDXG5078-88-03 07:04:00 Test Item Value Reference Range Interpretation Comments Segs (test code = Segs) 63.1 45.0-75.0 [facility] ResourcesXgjaxzaCOWEAOZUUU7647-78-06 07:04:00 Test Item Value Reference Range Interpretation Comments Lymphocytes (test code = Lymphocytes) 27.1 20.0-40.0 [facility] ResourcesRlehmyuRFZGSPXNME1029-19-06 07:04:00 Test Item Value Reference Range Interpretation Comments Monocytes (test code = Monocytes) 7.2 2.0-12.0 [facility] ResourcesNgyfetuZGFVNNQNJZ2979-68-21 07:04:00 Test Item Value Reference Range Interpretation Comments Eosinophils # (test code 0.1 See_Comment [A utomated message] The = Eosinophils #) system whic h generated this result tra nsmitted reference range : <=0.5. The reference r criss was not used to int erpret this result as normal/abnormal . [facility] ResourcesOxflzcsEXSHQYZEPR9798-12-89 07:04:00 Test Item Value Reference Range Interpretation Comments Eosinophils (test code = 2.2 See_Comment [A utomated message] The Eosinophils) system which ge nerated this result tra nsmitted reference range : <=4.0. The reference r criss was not used to int erpret this result as normal/abnormal . [facility] ResourcesOucedmjTZHFBCKICB5788-46-30 07:04:00 Test Item Value Reference Range Interpretation Comments Basophils (test code = 0.4 See_Comment [Aut omated message] The Basophils) system which ge nerated this result tra nsmitted reference range : <=1.0. The reference r criss was not used to int erpret this result as normal/abnormal . [facility] ResourcesDroghrfIOHUVCFNHE8589-58-60 07:04:00 Test Item Value Reference Range Interpretation Comments Segs-Bands # (test code = Segs-Bands #) 3.1 1.5-8.1 [facility]JsonumeQPNZQMYQNX1167-63-73 07:04:00 Test Item Value Reference Range Interpretation Comments Monocytes # (test code 0.3 See_Comment [Aut omated message] The = Monocytes #) system which generated this result tra nsmitted reference range : <=0.8. The reference r criss was not used to int erpret this result as normal/abnormal . [facility] ResourcesCtlzbhuYPOZTTGAVP6173-42-23 07:04:00 Test Item Value Reference Range Interpretation Comments Lymphocytes # (test code = Lymphocytes 1.3 1.0-5.5 #) [facility] ResourcesUsthlkwHOYVMVIUIL0753-44-98 07:04:00 Test Item Value Reference Range Interpretation Comments MPV (test code = MPV) 8.5 7.4-10.4 [facility] ResourcesHmuiqbfOITKALOGGC9212-84-91 07:04:00 Test Item Value Reference Range Interpretation Comments MCH (test code = MCH) 31.6 pg 27.0-31.0 [facility] ResourcesNfdzgdaMGGISGMGQY7941-16-75 07:04:00 Test Item Value Reference Range Interpretation Comments MCV (test code = MCV) 93.4 80.0-98.0 [facility] ResourcesSvolyzqDDIOHKNIMW2115-07-70 07:04:00 Test Item Value Reference Range Interpretation Comments Hct (test code = Hct) 33.2 36.0-48.0 [facility] ResourcesFkqqtxqFFZJAPAZUX0643-97-33 07:04:00 Test Item Value Reference Range Interpretation Comments Platelet (test code = Platelet) 151 133-450 [facility] ResourcesUfkwsskDOFTZJJXTJ0400-02-49 07:04:00 Test Item Value Reference Range Interpretation Comments RDW (test code = RDW) 13.1 11.5-14.5 [facility] ResourcesBfecledAWJCEBGHFS7924-89-30 07:04:00 Test Item Value Reference Range Interpretation Comments MCHC (test code = MCHC) 33.8 32.0-36.0 [facility] ResourcesFqzquvtSEZJFCWPMB8182-92-54 07:04:00 Test Item Value Reference Range Interpretation Comments Hgb (test code = Hgb) 11.2 12.0-16.0 [facility]QsgzedlTZPACAFMDE4483-14-27 07:04:00 Test Item Value Reference Range Interpretation Comments RBC (test code = RBC) 3.56 4.20-5.40 [facility] ResourcesDclbabgYFVVZRKIHR7373-65-03 07:04:00 Test Item Value Reference Range Interpretation Comments WBC (test code = WBC) 4.9 3.7-10.4 [facility] ResourcesFywwxysYXBEVYWBGX8020-27-29 07:04:00 Test Item Value Reference Range Interpretation Comments INR (test code = INR) 1.14 0.85-1.17 [facility] ResourcesXdxhrggQUYGLIQLPV7732-13-58 07:04:00 Test Item Value Reference Range Interpretation Comments PTT (test code = PTT) 28.5 s 22.9-35.8 [facility] R[id number] 07:04:00 Test Item Value Reference Range Interpretation Comments PT (test code = PT) 14.7 s 12.0-14.7 [id number] 07:04:00 Test Item Value Reference Range Interpretation Comments TSH (test code = TSH) 3.190 0.360-3.740 [facility] AND [id number] 08:06:00 Test Item Value Reference Range Interpretation Comments UA Urobilinogen (test code = UA <=1.0 mg/dL 0.1-1.0 Urobilinogen) [facility] AND [id number] 08:06:00 Test Item Value Reference Range Interpretation Comments UA Renal Epi (test code = UA Renal Epi) 7 [facility] AND [id number] 08:06:00 Test Item Value Reference Range Interpretation Comments UA Sq Epi (test code = UA Sq Moderate /LPF Epi) [facility] AND [id number] 08:06:00 Test Item Value Reference Range Interpretation Comments UA WBC (test code = 2 See_Comment [Automa elly message] The UA WBC) system which ge nerated this result transmit elly reference range : <=5. The reference range was not used to interpr et this result as maren l/abnormal. [facility] AND [id number] 08:06:00 Test Item Value Reference Range Interpretation Comments UA Nitrite (test code Negative (11/24/14 2:06 = UA Nitrite) AM) [facility] AND [id number] 08:06:00 Test Item Value Reference Range Interpretation Comments UA Leuk Est (test Negative (11/24/14 2:06 code = UA Leuk Est) AM) [facility] AND [id number] 08:06:00 Test Item Value Reference Range Interpretation Comments UA Blood (test code = Negative (11/24/14 2:06 UA Blood) AM) [facility] AND [id number] 08:06:00 Test Item Value Reference Range Interpretation Comments UA Protein (test code = UA Negative mg/dL Protein) [facility] AND [id number] 08:06:00 Test Item Value Reference Range Interpretation Comments UA pH (test code = UA pH) 6.5 5.0-8.0 [facility] AND [id number] 08:06:00 Test Item Value Reference Range Interpretation Comments UA Glucose (test code = UA Negative mg/dL Glucose) [facility] AND [id number] 08:06:00 Test Item Value Reference Range Interpretation Comments UA Bili (test code = Negative *NA*(11/24/14 UA Bili) 2:06 AM) [facility] AND [id number] 08:06:00 Test Item Value Reference Range Interpretation Comments UA Ketones (test code = UA Negative mg/dL Ketones) [facility] AND [id number] 08:06:00 Test Item Value Reference Range Interpretation Comments UA Spec Grav (test code = UA Spec Grav) 1.009 [facility] AND [id number] 08:06:00 Test Item Value Reference Range Interpretation Comments UA Turbidity (test code = Clear (11/24/14 2:06 UA Turbidity) AM) [facility] AND [id number] 08:06:00 Test Item Value Reference Range Interpretation Comments UA Color (test code = Yellow *NA*(11/24/14 2:06 UA Color) AM) [facility] [id number] 07:51:00 Test Item Value Reference Range Interpretation Comments A/G Ratio (test code = A/G Ratio) 1.2 0.7-1.6 [facility]2015-02-02 07:51:00 Test Item Value Reference Range Interpretation Comments Globulin (test code = Globulin) 3.2 2.0-4.0 [facility]2015-02-02 07:51:00 Test Item Value Reference Range Interpretation Comments B/C Ratio (test code = B/C Ratio) 22 6-25 [facility]2015-02-02 07:51:00 Test Item Value Reference Range Interpretation Comments AGAP (test code = AGAP) 9.8 10.0-20.0 [facility]2015-02-02 07:51:00 Test Item Value Reference Range Interpretation Comments eGFR (test code = eGFR) 29 [facility]2015-02-02 07:51:00 Test Item Value Reference Range Interpretation Comments Glucose Lvl (test code = Glucose Lvl) 125 70-99 [facility]2015-02-02 07:51:00 Test Item Value Reference Range Interpretation Comments Calcium Lvl (test code = Calcium Lvl) 8.7 8.5-10.5 [facility]2015-02-02 07:51:00 Test Item Value Reference Range Interpretation Comments ALT (test code = ALT) 29 See_Comment [Auto mated message] The system which ge nerated this result transmit elly reference range : <=65. The reference range was not used to interpr et this result as maren l/abnormal. [facility]2015-02-02 07:51:00 Test Item Value Reference Range Interpretation Comments AST (test code = AST) 17 See_Comment [Auto mated message] The system which ge nerated this result transmit elly reference range : <=37. The reference range was not used to interpr et this result as maren l/abnormal. [facility]2015-02-02 07:51:00 Test Item Value Reference Range Interpretation Comments Albumin Lvl (test code = Albumin Lvl) 3.7 3.5-5.0 [facility]2015-02-02 07:51:00 Test Item Value Reference Range Interpretation Comments Total Protein (test code = Total 6.9 6.4-8.4 Protein) [facility]2015-02-02 07:51:00 Test Item Value Reference Range Interpretation Comments CO2 (test code = CO2) 28 24-32 [facility]2015-02-02 07:51:00 Test Item Value Reference Range Interpretation Comments Chloride Lvl (test code = Chloride Lvl) 103 95-109 [facility]2015-02-02 07:51:00 Test Item Value Reference Range Interpretation Comments Potassium Lvl (test code = Potassium 3.8 3.5-5.1 Lvl) [facility]2015-02-02 07:51:00 Test Item Value Reference Range Interpretation Comments Sodium Lvl (test code = Sodium Lvl) 137 135-145 [facility]2015-02-02 07:51:00 Test Item Value Reference Range Interpretation Comments Creatinine Lvl (test code = Creatinine 1.7 0.5-1.4 Lvl) [facility]2015-02-02 07:51:00 Test Item Value Reference Range Interpretation Comments BUN (test code = BUN) 37 7-22 [facility]2015-02-02 07:51:00 Test Item Value Reference Range Interpretation Comments Alk Phos (test code = Alk Phos) 37 39-136 [facility]2015-02-02 07:51:00 Test Item Value Reference Range Interpretation Comments Bili Total (test code = Bili Total) 0.4 0.2-1.3 [facility] R[id number] 07:51:00 Test Item Value Reference Range Interpretation Comments Monocytes # (test code 0.4 See_Comment [Aut omated message] The = Monocytes #) system which generated this result tra nsmitted reference range : <=0.8. The reference r criss was not used to int erpret this result as normal/abnormal . [facility] [id number] 07:51:00 Test Item Value Reference Range Interpretation Comments Lymphocytes # (test code = Lymphocytes 1.1 1.0-5.5 #) [facility] [id number] 07:51:00 Test Item Value Reference Range Interpretation Comments Eosinophils # (test code 0.1 See_Comment [A utomated message] The = Eosinophils #) system whic h generated this result tra nsmitted reference range : <=0.5. The reference r criss was not used to int erpret this result as normal/abnormal . [facility] R[id number] 07:51:00 Test Item Value Reference Range Interpretation Comments Segs (test code = Segs) 70.9 45.0-75.0 [facility] [id number] 07:51:00 Test Item Value Reference Range Interpretation Comments Monocytes (test code = Monocytes) 6.7 2.0-12.0 [facility] [id number] 07:51:00 Test Item Value Reference Range Interpretation Comments Lymphocytes (test code = Lymphocytes) 19.7 20.0-40.0 [facility] [id number] 07:51:00 Test Item Value Reference Range Interpretation Comments Eosinophils (test code = 2.3 See_Comment [A utomated message] The Eosinophils) system which ge nerated this result tra nsmitted reference range : <=4.0. The reference r criss was not used to int erpret this result as normal/abnormal . [facility] Re[id number] 07:51:00 Test Item Value Reference Range Interpretation Comments Segs-Bands # (test code = Segs-Bands #) 4.0 1.5-8.1 [facility] R[id number] 07:51:00 Test Item Value Reference Range Interpretation Comments Basophils (test code = 0.4 See_Comment [Aut omated message] The Basophils) system which ge nerated this result tra nsmitted reference range : <=1.0. The reference r criss was not used to int erpret this result as normal/abnormal . [facility] Re[id number] 07:51:00 Test Item Value Reference Range Interpretation Comments PTT (test code = PTT) 28.2 s 22.9-35.8 [facility] R[id number] 07:51:00 Test Item Value Reference Range Interpretation Comments PT (test code = PT) 13.9 s 12.0-14.7 [facility] Re[id number] 07:51:00 Test Item Value Reference Range Interpretation Comments INR (test code = INR) 1.07 0.85-1.17 [facility] Re[id number] 07:51:00 Test Item Value Reference Range Interpretation Comments MPV (test code = MPV) 8.8 7.4-10.4 [id number] 07:51:00 Test Item Value Reference Range Interpretation Comments WBC (test code = WBC) 5.7 3.7-10.4 [facility] R[id number] 07:51:00 Test Item Value Reference Range Interpretation Comments MCV (test code = MCV) 94.9 80.0-98.0 [facility] Re[id number] 07:51:00 Test Item Value Reference Range Interpretation Comments RBC (test code = RBC) 3.73 4.20-5.40 [facility] Reso[id number] 07:51:00 Test Item Value Reference Range Interpretation Comments RDW (test code = RDW) 13.3 11.5-14.5 [facility] [id number] 07:51:00 Test Item Value Reference Range Interpretation Comments Hgb (test code = Hgb) 12.1 12.0-16.0 [facility] Reso[id number] 07:51:00 Test Item Value Reference Range Interpretation Comments Hct (test code = Hct) 35.3 36.0-48.0 [facility] Re[id number] 07:51:00 Test Item Value Reference Range Interpretation Comments Platelet (test code = Platelet) 158 133-450 [facility] Resourc[id number] 07:51:00 Test Item Value Reference Range Interpretation Comments MCHC (test code = MCHC) 34.2 32.0-36.0 [facility] Re[id number] 07:51:00 Test Item Value Reference Range Interpretation Comments MCH (test code = MCH) 32.5 pg 27.0-31.0 [id number] 07:51:00 Test Item Value Reference Range Interpretation Comments CHD Risk (test code = CHD Risk) 2.81 3.90-5.80 [id number] 07:51:00 Test Item Value Reference Range Interpretation Comments VLDL (test code = VLDL) 26 [facility] HospitalBjxikgkPLYBET2509-59-16 07:51:00 Test Item Value Reference Range Interpretation Comments LDL (Calculated) (test code = LDL 59 (Calculated)) [facility]RgfrtjbVTJGCH0079-54-03 07:51:00 Test Item Value Reference Range Interpretation Comments Trig (test code = Trig) 128 [id number] 07:51:00 Test Item Value Reference Range Interpretation Comments HDL (test code = HDL) 47 [facility] HospitalNuljzahPBDAGY2053-88-96 07:51:00 Test Item Value Reference Range Interpretation Comments Chol (test code = Chol) 132 [facility] [id number] 07:51:00 Test Item Value Reference Range Interpretation Comments Hgb A1C (test code = Hgb A1C) 5.6 [facility]
[2022-07-14 19:39] LABS: SARS-CoV-2 Antigen Rapid Res Negative (Negative)
--- NOTE | 2022-07-14 21:50 | ER ---
Nurse's Notes [facility] Name: Kristal You Age: 82 yrs Sex: Female : 1940 Arrival Date: 07/14/2022 Time: 17:54 Bed 10 Private MD: Diagnosis: Chest pain, unspecified Presentation: 07/14 19:07 Chief complaint: Patient states: I started having chest pain for months. I went to Dr. amy Gurrola today and he said I needed to be admitted to the hospital. Coronavirus screen: Client presents with at least one sign or symptom that may indicate coronavirus-19. Standard/surgical mask placed on the client. Ebola Screen: No symptoms or risks identified at this time. Initial Sepsis Screen: Does the patient meet any 2 criteria? No. Patient's initial sepsis screen is negative. Does the patient have a suspected source of infection? No. Patient's initial sepsis screen is negative. Risk Assessment: Do you want to hurt yourself or someone else? Patient reports no desire to harm self or others. Onset of symptoms is unknown. 19:07 Method Of Arrival: Wheelchair [facility] 19:07 Acuity: LUCINA 3 bm7 Triage Assessment: 19:09 General: Appears in no apparent distress. uncomfortable, Behavior is calm, cooperative, bm7 appropriate for age. Pain: Denies pain. EENT: Reports nasal congestion nasal discharge. Neuro: No deficits noted. Cardiovascular: Reports shortness of breath, Chest pain is described as vague. Respiratory: Reports shortness of breath at rest on exertion Airway is patent Respiratory effort is even, unlabored, Respiratory pattern is regular, symmetrical, Breath sounds are clear bilaterally. Denies cough. GI: No deficits noted. No signs and/or symptoms were reported involving the gastrointestinal system. : No deficits noted. No signs and/or symptoms were reported regarding the genitourinary system. Derm: No deficits noted. No signs and/or symptoms reported regarding the dermatologic system. Musculoskeletal: No deficits noted. No signs and/or symptoms reported regarding the musculoskeletal system. Historical: - Allergies: 19:09 LETY INHIBITORS; bm7 19:09 HYDRALAZINE; bm7 - Home Meds: 19:09 aspirin 81 mg Oral chew 1 tab once daily [Active]; atenolol 50 mg Oral tab once daily bm7 [Active]; baclofen 10 mg Oral tab 1 tab at bedtime [Active]; clonidine HCl 0.1 mg Oral tab as needed [Active]; dofetilide 500mcg Oral 2 times per day [Active]; doxazosin 4 mg Oral tab 1 tab 1/2 tab in the am and 1 tab in the afternoon [Active]; pravastatin 40 mg Oral tab once daily [Active]; Vascepa 1 gram Oral cap 2 times per day [Active]; levothyroxine 112 mcg tab once daily [Active]; liothyronine 5 mcg Oral tab once daily [Active]; hydralazine 50 mg Oral tab three times daily [Active]; tramadol 50 mg Oral tab 1 tab twice a day [Active]; gabapentin 100 mg Oral cap 1 caps 3 times per day [Active]; Vitamin D3 Oral 2 tab daily [Active]; Eliquis 5 mg Oral tab 1 tab 2 times per day [Active]; Edarbyclor 40-25 mg Oral tab 1 tab once daily [Active]; - PMHx: 19:09 Asthma; Atrial Fib; CVA; Hypertension; Hypothyroidism; UTI; bm7 - PSHx: 19:09 ablation; hyst; Cholecystectomy; bm7 - Immunization history:: Adult Immunizations up to date, Client reports receiving the 2nd dose of the Covid vaccine, Client reports receiving the 1st dose of the Covid vaccine. - Social history:: Smoking status: Patient denies any tobacco usage or history of. Assessment: 21:50 General: attempted to call report. no answer on 2nd floor. lg3 22:05 General: attempted to call report. no answer on 2nd floor. . lg3 22:21 General: attempted to call report. no answer on 2nd floor . lg3 Vital Signs: 19:07 BP 154 / 53; Pulse 88; Resp 18; Temp 97.2(TE); Pulse Ox 97% on R/A; Weight 115.21 kg bm7 (R); Height 5 ft. 2 in. (157.48 cm); Pain 0/10; 19:07 Body Mass Index 46.46 (115.21 kg, 157.48 cm) bm7 ED Course: 17:54 Patient arrived in ED. dt4 19:09 Triage completed. bm7 19:09 Arm band placed on right wrist. EKG completed in triage. Results shown to MD. bm7 20:24 Rosey Anne, RN is Primary Nurse. lg3 21:49 Judd Gurrola MD is Hospitalizing Provider. tw5 Administered Medications: No medications were administered Outcome: 21:50 Decision to Hospitalize by Provider. tw5 23:08 Patient left the ED. mw2 Signatures: Irma Scruggs mw2 Rosey Anne, RN RN lg3 Virgie Barclay, KARIE RN bm7 Wendy Franco tw5 [facility]
[2022-07-14 22:58] LABS: Absolute Lymphocytes (CBC) 1.6 K/uL (0.7-4.9); Hematocrit 34.3 % (36.0-45.0); Lymphocytes % 23.7 % (15.3-44.8); MCV 92.5 fL (80-100); MPV 7.3 fL (7.6-11.3)
[2022-07-14 23:17] LABS: Albumin 3.5 g/dL (3.4-5.0); Bilirubin Total 0.4 mg/dL (0.2-1.0); Magnesium 2.1 mg/dL (1.8-2.4); Potassium 3.7 mmol/L (3.5-5.1); Protein, Total 7.1 g/dL (6.4-8.2)
[2022-07-14] MEDS: cloNIDine HCL 0.1 MG TAB PO SCH (23:42)
[2022-07-14] MEDS: LOSARTAN POTASSIUM 50 MG TABLET PO SCH (23:43)
[2022-07-14] MEDS: HYDRALAZINE HCL 25 MG TABLET PO SCH (23:43)
[2022-07-14] MEDS: DOXAZOSIN 2 MG TAB PO SCH (23:45)
[2022-07-15] MEDS: ALBUTEROL 2.5 MG/3 ML NEB SOL NEB SCH ×4 (00:15→19:55)
[2022-07-15 01:09] VITALS: BMI 45.1
[2022-07-15] MEDS: LEVOTHYROXINE SOD 0.1 MG TAB PO SCH (05:56)
[2022-07-15] MEDS: LIOTHYRONINE SOD 5 MCG TAB PO SCH (05:56)
[2022-07-15] MEDS: HEPARIN/D5W 25,000 UNIT/500 ML BAG IV SCH ×2 (06:05→11:15)
[2022-07-15 06:35] LABS: Absolute Lymphocytes (CBC) 1.6 K/uL (0.7-4.9); Hematocrit 31.7 % (36.0-45.0); Lymphocytes % 27.2 % (15.3-44.8); MCV 92.6 fL (80-100); MPV 7.1 fL (7.6-11.3); RBC Red Blood Cell Count 3.43 M/uL (3.86-4.86)
[2022-07-15 06:38] LABS: Protime INR 1.26
[2022-07-15] MEDS ORDERED: ISOSORBIDE MONO SR 60 MG TAB PO SCH (09:00)
[2022-07-15] MEDS ORDERED: FUROSEMIDE 40 MG TABLET PO SCH (09:00)
[2022-07-15] MEDS ORDERED: APIXABAN 2.5 MG TABLET PO SCH (09:00)
[2022-07-15] MEDS: LOSARTAN POTASSIUM 50 MG TABLET PO SCH ×2 (09:52→20:42)
[2022-07-15] MEDS: cloNIDine HCL 0.1 MG TAB PO SCH ×2 (09:52→20:41)
[2022-07-15] MEDS: HYDRALAZINE HCL 25 MG TABLET PO SCH ×2 (09:53→20:42)
[2022-07-15] MEDS: DILTIAZEM HCL 120 MG SR CAP PO SCH (09:53)
[2022-07-15] MEDS: GABAPENTIN 300 MG CAP PO SCH ×3 (09:53→20:42)
[2022-07-15] MEDS: DOXAZOSIN 2 MG TAB PO SCH ×2 (09:53→20:43)
[2022-07-15] MEDS: ASPIRIN EC 81 MG TAB PO SCH (09:54)
--- NOTE | 2022-07-15 11:00 | RAD REPORT ---
EXAM DESCRIPTION: RAD - Chest Single View - 07/14/2022 10:38 pm CLINICAL HISTORY: The patient is 82 years old and is Female; [place] TECHNIQUE: Frontal view of the chest. COMPARISON: 04/03/2021 chest radiograph FINDINGS: LUNGS: Bilateral interstitial opacities which may be artifactual due to technique, but c ould reflect pulmonary edema or interstitial pneumonia. No focal consolidation. PLEURAL SPACE: No appreciated pleural effusion. No pneumothorax. HEART: Prominence of the cardiomediastinal silhouette,, though this may be exaggerated secondary to portable technique, lordotic positioning, and patient body habitus. MEDIASTINUM: See above. Calcified atherosclerosis of the aortic arch. BONES/JOINTS: Degenerative changes of the bilateral shoulders. IMPRESSION: Cardiomegaly, though possibly exaggerated due to technique, with pulmonary edema versus interstitial pneumonia. Correlation with patient's symptoms and lab values recommended. Electronically signed by: Gabe Mahajan MD 07/14/2022 10:54 PM CDT Due to temporary technical issues with the PACS/Fluency reporting system, reports are being signed by the in house radiologists without review as a courtesy to insure prompt reporting. The interpreting radiologist is fully responsible for the content of the report.
[2022-07-15] MEDS: ISOSORBIDE MONO SR 60 MG TAB PO SCH (11:51)
[2022-07-15] MEDS: DOFETILIDE 250 MCG PO SCH ×2 (11:55→20:55)
[2022-07-15] MEDS: FAMOTIDINE 20 MG TAB PO SCH (20:41)
[2022-07-15] MEDS: ATORVASTATIN 80 MG TAB PO SCH (20:42)
--- NOTE | 2022-07-15 21:03 | PN ---
Date of Progress Note: 07/15/2022 Subjective: This patient was seen this morning for followup. She was lying in bed, not in distress. Denies any new complaints. No chest pain reported overnight. Objective: Vital Signs: Reviewed. HEENT: Unremarkable. Lungs: Clear to auscultation. Heart: Sounds normal. Abdomen: Soft. Bowel sounds normal. No guarding, rigidity, tenderness, or distention. Extremities : No leg edema. Laboratory Data: White count 5.6, hemoglobin 11, platelets 140. Troponin 570, which is lower today compared to last night. Her triglycerides 82, total cholesterol 123, LDL 52, HDL 55. Impression: 1.Pab-WJ-uinyepyra myocardial infarction. 2.Coronary artery disease. 3.Anemia, unspecified. 4.Thrombocytopenia. 5.Hypertension. 6.Hyperlipidemia. Plan: We will go ahead and continue current medications. Continue heparin drip per protocol. We wi ll follow up with business rules analyst. Echo with Doppler will be done today and continue medications per or katey. Tikosyn is not available in the hospital and the patient to continue Tikosyn using her home sup ply. YOLY/MODL Voice ID: [id number] Report ID: [id number]
--- NOTE | 2022-07-15 21:57 | HP ---
Date of Admission: 07/14/2022 Chief Complaint: Chest pain and shortness of breath. History Of Present Illness: This is an 82-year-old pleasant female patient, came into our office wit h her daughter today with complaints of chest pain and shortness of breath. The patient reports that she always has shortness of breath with activity, but in last few days it has gotten lot worse and g ets short of breath just after walking for few seconds in the room. This was noted while she was at the office today. She is also complaining of left-sided chest pain in the left upper anterior chest for last few days. Denies any fever. No cough. No nasal or sinus congestion. No expectoration. S he had called office earlier today complaining of, as if she was having chest congestion and she did COVID test at home, which was negative and she was advised to come see me, but after I evaluated, I w as concerned more about cardiac problems and she was admitted to the hospital with concerns about uns table angina. Arrangements were made for her to be admitted directly to the hospital after evaluatio n in the office today. Allergies: NO KNOWN ALLERGIES. Medications: Atorvastatin 80 mg daily, albuterol inhaler 2 puffs every 4 hours as needed for shortne ss of breath, Eliquis 2.5 mg 2 times a day, aspirin 81 mg daily, vitamin D3 5000 units daily, clonidi ne 0.2 mg 2 times a day for systolic blood pressure more than 160, diltiazem 120 mg daily, Tikosyn 25 0 mcg 2 times a day, doxazosin 4 mg takes half a tablet in the morning and 1 tablet in the evening, f amotidine 20 mg and she takes 1 tablet daily at bedtime, Trelegy inhaler 1 puff daily, fluticasone na pantera spray 1 spray in each nostril 2 times a day, folic acid 1 mg daily, furosemide 40 mg daily, gabap entin 300 mg 3 times a day, hydralazine 50 mg 3 times a day, Vascepa 2 capsules 2 times a day, isosor bide mononitrate 60 mg daily, levocetirizine 5 mg daily, levothyroxine 100 mcg daily, liothyronine 5 mcg takes 2 tablets daily, losartan 50 mg 2 times a day, omeprazole 20 mg 2 times a day. Review of Systems: Cardiovascular: As mentioned above. Respiratory: As mentioned above. All other systems reviewed and negative. Past Medical History: Significant for TIA on September 07, 2021. Prior to that in the past she had s troke, allergic rhinitis, hypothyroidism, impaired fasting glucose, moderate persistent asthma, hyper tension, hyperlipidemia, coronary artery disease, chronic diastolic heart failure, paroxysmal atrial fibrillation, gastroesophageal reflux disease, osteoarthritis, hyponatremia. The patient had a cardi ac cath done 05/31/2021 and it showed 60% stenosis of the proximal LAD and obtuse marginal OM1 and di stal circumflex. Past Surgical History: Significant for cholecystectomy, appendectomy, rectocele repair, hysterectomy , bladder suspension, shoulder surgery, carpal tunnel surgery, and knee surgery. Family History: Father had heart disease. Mother had pancreatic cancer and sister also had pancreat ic cancer. Social History: Negative for alcohol use. Prior history of smoking, not at present time. Physical Examination: Vital Signs: At office when she came in today, blood pressure 134/65, pulse 77, temperature 98.3, re spiratory rate 18. Weight 254 pounds, height 62.5 inches, BMI 45.7. Oxygen saturation at office was ranging anywhere from 94% after walking for a few seconds in the exam room and at rest, it was 97%. General: Awake, alert, oriented, not in distress. HEENT: Head atraumatic, normocephalic. Conjunctivae nonerythematous. Sclerae white. Mouth, no thr ush or edema noted. Ears/Nose, no mass, lesion, discharge noted. Neck: Supple. No JVD, lymph nodes, bruit, thyromegaly noted. Lungs: Bilateral good equal air entry. Clear to auscultation. No rhonchi. No rales. Heart: Normal heart sounds, no murmur or gallop. Abdomen: Soft, bowel sounds normal. No guarding, rigidity, tenderness, mass, hepatosplenomegaly, dis tention, or bruit noted. Extremities: No leg edema. No calf tenderness. Skin: No rash, ulcer, cellulitis. Lymphatics: No lymph node enlargement in neck, supraclavicular, infraclavicular region. Neuro: No focal neurological deficit. Chest: Unremarkable. External Genitalia: Deferred. Rectal: Deferred. Laboratory Data: White count 6.7, hemoglobin 11.6, platelets 161. COVID-19 test negative. Sodium 1 39, potassium 3.7, chloride 108, bicarb 25, BUN 18, creatinine 1.06, glucose 109. Liver function mirela ts unremarkable. ProBNP 1003 and troponin 739. Impression: 1.Non-ST elevation myocardial infarction. 2.Moderate persistent asthma. 3.Coronary artery disease. 4.Hypertension. 5.Hyperlipidemia. 6.Paroxysmal atrial fibrillation. 7.Hypothyroidism. 8.Impaired fasting glucose. 9.Gastroesophageal reflux disease. 10.Osteoarthritis, multiple sites. 11.Morbid obesity. Plan: Admit patient to hospital for further evaluation and management of this problem. The patient is appropriate for inpatient and is expected to spend 2 midnights in hospital. We will go ahead and consult Cardiology. The patient takes Eliquis and we will start her on heparin drip per protocol ins tead of Eliquis. We will get echo with Doppler and follow up with tempering kiln tender for further evaluatio n and management of this non-STEMI along with coronary artery disease problem now. For her asthma, w e will continue nebulizer treatment. Asthma problem is stable at this time. Hypertension will be ma naged with continuation of her home medications per order. We will continue to monitor blood pressur e, if necessary make further adjustment. For hyperlipidemia, continue her statin therapy. For hypot hyroidism, we will continue her levothyroxine and liothyronine. For gastroesophageal reflux disease, we will continue her home medications per order. Her chronic diastolic heart failure is stable and we will continue her furosemide per order. Details and plan of treatment discussed with her and her daughter. I will see her tomorrow morning for followup. YOLY/MODL Voice ID: [id number]
--- NOTE | 2022-07-16 00:40 | CON ---
Date of Consultation: 07/15/2022 Reason For Consultation: Chest pain with elevated troponin. History Of Present Illness: This is an 82-year-old female who is morbidly obese with a history of at rial fibrillation status post ablation in the past, hypertension, dyslipidemia, and congestive heart failure. She presented with chest pain, pressure like with significant shortness of breath on minima l exertion along with significant lower extremity edema and orthopnea. No nausea, vomiting, diarrhea , or diaphoresis. Past Medical History: As outlined above in the HPI. Medications: Refer to reconciliation sheet for detailed list. Allergies: LETY INHIBITOR AND PHENOBARBITAL. Family History: No premature coronary artery disease or cancer. Social History: She does not drink or use any drugs. Review of Systems: All systems reviewed and were negative except as mentioned in HPI. Physical Examination: Vital signs: Reviewed. Head And Neck: Pupils are equal and reactive to light. Intact eye movements. Positive JVD. No cer vical lymphadenopathy. Neck supple. Thyroid not enlarged. Lungs: Crackles in both lung peoples. No accessory muscle use or muscle retraction. Heart: Irregular. No extra sounds. Abdomen: Soft, nontender. Bowel sounds positive. No organomegaly. No masses or hernia. No rigidi ty or rebound. Extremities: No clubbing or cyanosis. Intact pulses. Skin: No rash or nodules. Neurologic: Alert, awake, and oriented x3. No acute focal deficits appreciated. Lymph Nodes: No cervical or axillary lymphadenopathy. Investigations: Troponins 739, down to 570. Creatinine 1.06. NT-proBNP is 1003. Assessment And Recommendation: 1.Byley-zo-yqjyxdo congestive heart failure exacerbation. Start Lasix 40 mg IV q.12 hours. Monitor BUN, creatinine, and electrolytes. 2.Elevated troponin with chest pain, suggestive of non-ST elevation myocardial infarction. Please s tart the patient on Lovenox 1 mg/kg subcu q.12 hours and keep her on it throughout the week and baby aspirin 81 mg daily and we will plan for coronary angiogram on her. I did a coronary angiogram on he r a year ago on May 31 and she had 60% ostial left anterior descending, however, FFR was negative and also circumflex had 60% stenosis. So this troponin leak could be due to worsening of her rausch ry artery disease versus demand ischemia; however, coronary angiogram is warranted. 3.Atrial fibrillation status post ablation. Continue home medications. Thank you for the consult. /JAMIL Voice ID: [id number] Report ID: [id number]
[2022-07-16] MEDS: ALBUTEROL 2.5 MG/3 ML NEB SOL NEB SCH ×4 (01:50→20:00)
[2022-07-16] MEDS: LIOTHYRONINE SOD 5 MCG TAB PO SCH (05:12)
[2022-07-16] MEDS: LEVOTHYROXINE SOD 0.1 MG TAB PO SCH (05:17)
[2022-07-16] MEDS: HEPARIN/D5W 25,000 UNIT/500 ML BAG IV SCH (05:19)
[2022-07-16] MEDS ORDERED: FUROSEMIDE 40 MG/4 ML VIAL IV SCH (09:00)
[2022-07-16] MEDS: cloNIDine HCL 0.1 MG TAB PO SCH ×2 (09:49→22:14)
[2022-07-16] MEDS: HYDRALAZINE HCL 25 MG TABLET PO SCH ×2 (09:49→22:15)
[2022-07-16] MEDS: ASPIRIN EC 81 MG TAB PO SCH (09:49)
[2022-07-16] MEDS: GABAPENTIN 300 MG CAP PO SCH ×3 (09:49→22:15)
[2022-07-16] MEDS: ISOSORBIDE MONO SR 60 MG TAB PO SCH (09:50)
[2022-07-16] MEDS: DILTIAZEM HCL 120 MG SR CAP PO SCH (09:50)
[2022-07-16] MEDS: DOFETILIDE 250 MCG PO SCH ×2 (09:50→22:16)
[2022-07-16] MEDS: DOXAZOSIN 2 MG TAB PO SCH ×2 (09:50→22:16)
[2022-07-16] MEDS: LOSARTAN POTASSIUM 50 MG TABLET PO SCH ×2 (09:50→22:16)
--- NOTE | 2022-07-16 10:39 | PN ---
Date of Progress Note: 07/16/2022 Subjective: The patient was seen this morning for followup. No new complaints or problems reported by her. She still gets short of breath when she walks around, but no more chest pain. Objective: Vital Signs: Reviewed. HEENT: Unremarkable. Lungs: Clear to auscultation. Heart: Sounds normal. Abdomen: Soft. Bowel sounds normal. No guarding, rigidity, tenderness, or distention. Extremities: No leg edema. Impression: 1.Non-ST elevation myocardial infarction. 2.Hypertension. 3.Hyperlipidemia. Plan: We will go ahead and continue heparin drip per protocol. Continue to follow with display fabrication supervisor who is planning to do cardiac cath on her. Echocardiogram was done yesterday, result pending. We w ill repeat blood work tomorrow morning and I will see her tomorrow for followup. YOLY/MODL Voice ID: [id number] Report ID: [id number]
[2022-07-16 17:25] LABS: Potassium 4.1 mmol/L (3.5-5.1)
--- NOTE | 2022-07-16 20:40 | PN ---
Date of Progress Note: 07/16/2022 Subjective: Patient is seen by bedside. She is breathing significantly better. No significant orth opnea. Chest pain has improved. Review of Systems: No chest pain. Has shortness of breath on minimal exertion with lower extremity edema. No nausea, v omiting, or diarrhea. No abdominal pain. No dysuria, oliguria, polyuria, or urinary urgency. No sk in rash. All other systems reviewed and are negative. Physical Examination: Vital Signs: Reviewed. Head and Neck: Pupils are equal and reactive to light. Intact eye movements. No JVD. No cervical lymphadenopathy. Neck is supple. Thyroid is not enlarged. Lungs: Decreased breathing sounds bilaterally. No accessory muscle use or muscle retraction. Heart: Regular rate and rhythm. No extra sounds. Abdomen: Soft, nontender. Bowel sounds positive. No organomegaly. No masses or hernia. No rigidi ty or rebound. Extremities: Edema that has improved. No clubbing or cyanosis. Intact pulses. Skin: No rash. No nodules. Neurologic: Alert, awake, oriented x3. No acute focal deficits appreciated. Lymph Nodes: No cervical or axillary adenopathy. Investigations: Her troponin is down to 570 from 739. BUN 18, creatinine 1.06, and hemoglobin is 11 . Assessment And Recommendation: 1.Qthyq-wk-uwcjcpa congestive heart failure exacerbation. Still on Lasix 40 mg IV q.12 hours. Leandro g significantly better clinically. However, we will check basic metabolic panel now to evaluate elec trolytes, BUN and creatinine and to monitor while on IV Lasix very closely. 2.Non-ST elevation myocardial infarction. This patient is known to me and she had a coronary angiog flor more than a year ago that showed some moderate stenosis of the left anterior descending and right coronary artery, likely one of them is a culprit. We will plan for coronary angiogram on her early next week. 3.Atrial fibrillation status post ablation, doing well. Continue current medications. SR/MODL Voice ID: [id number] Report ID: [id number]
[2022-07-16] MEDS: ATORVASTATIN 80 MG TAB PO SCH (22:14)
[2022-07-16] MEDS: FAMOTIDINE 20 MG TAB PO SCH (22:15)
[2022-07-17] MEDS: ALBUTEROL 2.5 MG/3 ML NEB SOL NEB SCH ×4 (01:51→20:15)
[2022-07-17 04:45] LABS: Absolute Lymphocytes (CBC) 1.2 K/uL (0.7-4.9); Hematocrit 32.1 % (36.0-45.0); Lymphocytes % 21.7 % (15.3-44.8); MCV 93.5 fL (80-100); RBC Red Blood Cell Count 3.43 M/uL (3.86-4.86)
[2022-07-17 04:56] LABS: Magnesium 2.1 mg/dL (1.8-2.4); Potassium 3.8 mmol/L (3.5-5.1)
[2022-07-17] MEDS: LIOTHYRONINE SOD 5 MCG TAB PO SCH (05:24)
[2022-07-17] MEDS: LEVOTHYROXINE SOD 0.1 MG TAB PO SCH (05:24)
[2022-07-17] MEDS: ISOSORBIDE MONO SR 60 MG TAB PO SCH (08:32)
[2022-07-17] MEDS: HYDRALAZINE HCL 25 MG TABLET PO SCH ×2 (08:33→21:18)
[2022-07-17] MEDS: DOXAZOSIN 2 MG TAB PO SCH ×2 (08:33→21:20)
[2022-07-17] MEDS: LOSARTAN POTASSIUM 50 MG TABLET PO SCH ×2 (08:33→21:21)
[2022-07-17] MEDS: GABAPENTIN 300 MG CAP PO SCH ×3 (08:33→21:21)
[2022-07-17] MEDS: cloNIDine HCL 0.1 MG TAB PO SCH ×2 (08:33→21:18)
[2022-07-17] MEDS: DILTIAZEM HCL 120 MG SR CAP PO SCH (08:34)
[2022-07-17] MEDS: DOFETILIDE 250 MCG PO SCH ×2 (08:34→21:21)
[2022-07-17] MEDS: ASPIRIN EC 81 MG TAB PO SCH (08:34)
[2022-07-17] MEDS: FUROSEMIDE 40 MG/4 ML VIAL IV SCH (08:35)
[2022-07-17] MEDS: HEPARIN/D5W 25,000 UNIT/500 ML BAG IV SCH (08:42)
[2022-07-17] MEDS ORDERED: METOPROLOL TARTRATE 5 MG/5 ML INJ IV ONE (12:07)
--- NOTE | 2022-07-17 14:16 | PN ---
Date of Progress Note: 07/17/2022 Subjective: The patient was seen this morning for followup. No new complaints or problems reported by the patient. Lying in bed, not in distress. Vital signs reviewed. Her shortness of breath with activity has improved. Physical Examination: HEENT: Unremarkable. Lungs: Clear to auscultation. Heart: Sounds normal. Abdomen: Soft. Bowel sounds normal. No guarding, rigidity, tenderness, or distention. Extremities: No leg edema. Laboratory Data: White count 5.7, hemoglobin 10.9, platelets 140. Sodium 139, potassium 3.8, chlori de 105, bicarb 28, BUN 12, creatinine 1.01, glucose 124, magnesium 2.1. Impression: 1.Non-ST segment elevation myocardial infarction. 2.Chronic diastolic heart failure with acute exacerbation. 3.Hypertension. 4.Thrombocytopenia. Plan: We will go ahead and continue heparin drip per protocol. Her echocardiogram which was done [facility] this hospitalization has shown normal ejection fraction with diastolic dysfunction. We will con tinue to follow with multicut line operator. Her blood pressure is under good control at this point. I did co mmunicate with multicut line operator yesterday. He is planning to do cardiac cath probably tomorrow. Details and plan of treatment discussed with the patient and she understands and agrees to proceed with card iac cath. She is getting IV Lasix for acute exacerbation of chronic diastolic CHF and has reported today that her shortness of breath with activi ty has improved. YOLY/MODL Voice ID: [id number] Report ID: [id number]
--- NOTE | 2022-07-17 20:40 | PN ---
Date of Progress Note: 07/17/2022 Subjective: Seen by bedside. Continues to improve. Review of Systems: No active chest pain. She has shortness of breath on exertion. No nausea, vomiting, or diarrhea. A ll other systems reviewed are negative. Objective: Vital Signs: Temperature is 97.6, pulse 73, breathing at 16, blood pressure 137/63, and saturating 95%. General: Pleasant elderly female, no apparent distress. Head and Neck: Pupils are equal and reactive to light. Intact eye movements. Neck: No JVD. No cervical lymphadenopathy. Neck is supple. Thyroid is not enlarged. Lungs: Decreased breathing sounds bilaterally. No rhonchi, wheezing, or crackles. Heart: Irregular. No extra sounds. Abdomen: Soft and nontender. Bowel sounds positive. No organomegaly. No masses or hernia. No rig idity or rebound. Extremities: No clubbing or cyanosis. Intact pulses. No edema. Skin: No rash. No nodules. Neurologic: Alert, awake, and oriented x3. No acute focal deficits appreciated. Investigations: BUN is 12, creatinine 1.01, and hemoglobin is 10.9. Assessment And Recommendation: 1.Non ST-elevation myocardial infarction with known moderate coronary artery disease. Keep n.p.o. p ast midnight, we will plan for coronary angiogram tomorrow. Continue meanwhile on aspirin and IV hep kimani. 2.Acute on chronic congestive heart failure exacerbation. No recent ejection fraction. Continue IV Lasix daily. Monitor BUN, creatinine, and electrolytes. The patient is improving very well on that. 3.Hypertension. Blood pressure is controlled. SR/MODL Voice ID: [id number] Report ID: [id number]
[2022-07-17] MEDS: FAMOTIDINE 20 MG TAB PO SCH (21:20)
[2022-07-17] MEDS: ATORVASTATIN 80 MG TAB PO SCH (21:21)
[2022-07-18] MEDS: ALBUTEROL 2.5 MG/3 ML NEB SOL NEB SCH ×3 (02:05→14:00)
[2022-07-18 04:28] LABS: MPV 7.7 fL (7.6-11.3)
[2022-07-18 04:38] LABS: Potassium 3.6 mmol/L (3.5-5.1)
[2022-07-18] MEDS: ASPIRIN EC 81 MG TAB PO SCH (06:27)
[2022-07-18] MEDS: LIOTHYRONINE SOD 5 MCG TAB PO SCH (06:30)
[2022-07-18] MEDS: LEVOTHYROXINE SOD 0.1 MG TAB PO SCH (06:30)
--- NOTE | 2022-07-18 07:02 | ECHO ---
HEIGHT: 5 ft 2 in WEIGHT: 247 lb 0 oz DATE OF STUDY: 07/15/[address]: Judd Gurrola MD 2-DIMENSIONAL: YES M.MODE: YES DOPPLER: YES COLOR FLOW: YES TDS: YES PORTABLE: YES DEFINITY: BUBBLE STUDY: DIAGNOSIS: UNSTABLE ANGINA CARDIAC HISTORY: CATHERIZATION: NO SURGERY: NO PROSTHETIC VALVE: NO PACEMAKER: NO MEASUREMENTS (cm) DIASTOLIC (NORMALS) SYSTOLIC (NORMALS) IVSd 1.4 (0.6-1.2) LA Diam 4.2 (1.9-4.0) LVEF 55-60% LVIDd 4.9 (3.5-5.7) LVIDs 3.6 (2.0-3.5) %FS 28% LVPWd 1.4 (0.6-1.2) Ao Diam 2.8 (2.0-3.7) 2 DIMENSIONAL ASSESSMENT: RIGHT ATRIUM: NORMAL LEFT ATRIUM: ENLARGED RIGHT VENTRICLE: NORMAL LEFT VENTRICLE: NORMAL TRICUSPID VALVE: NORMAL MITRAL VALVE: MITRAL ANNULAR CALCIFICATION PULMONIC VALVE: NORMAL AORTIC VALVE: NORMAL PERICARDIAL EFFUSION: NONE AORTIC ROOT: NORMAL LEFT VENTRICULAR WALL MOTION: NORMAL DOPPLER/COLOR FLOW: SEE BELOW COMMENTS: NORMAL LEFT VENTRICULAR EJECTION FRACTION 55-60%. NORMAL WALL MOTION. MILD MITRAL REGURGITATION/ MILD TRICUSPID REGURGITATION. GRADE II DIASTOLIC DYSFUNCTION. RIGHT VENTRICULAR SYSTOLIC PRESSURE 43 mmHg PLUS RIGHT ATRIAL PRESSURE (ELEVATED). TECHNOLOGIST: JOSE ARRIETA
[2022-07-18] MEDS ORDERED: NA CHLORIDE 0.9% 0 ML ONE (07:44)
[2022-07-18] MEDS ORDERED: FENTANYL CITR 100 MCG/2 ML ONE (08:15)
[2022-07-18] MEDS ORDERED: MIDAZOLAM HCL 2 MG/2 ML INJ ONE (08:15)
[2022-07-18] MEDS ORDERED: ATROPINE SULF 1 MG/10 ML SYR IV ONE (08:16)
[2022-07-18] MEDS ORDERED: NA CHLORIDE 0.9% 50 ML IV ONE (08:16)
[2022-07-18] MEDS ORDERED: NITROGLYCERIN/D5W 0 MG/0 ML BTL IV ONE (08:16)
[2022-07-18] MEDS ORDERED: HEPA 1000U/500MLS 1,000 UNIT/500 ML BAG IV ONE (08:17)
[2022-07-18] MEDS ORDERED: LIDOCAINE 1% MPF 5 ML VIAL ONE (08:18)
[2022-07-18] MEDS ORDERED: NA CHLORIDE 0.9% 500 ML ONE ×2 (08:28→08:31)
[2022-07-18] MEDS: FUROSEMIDE 40 MG/4 ML VIAL IV SCH (09:00)
[2022-07-18] MEDS: DOFETILIDE 250 MCG PO SCH (09:00)
[2022-07-18] MEDS: DILTIAZEM HCL 120 MG SR CAP PO SCH (09:00)
[2022-07-18] MEDS: LOSARTAN POTASSIUM 50 MG TABLET PO SCH (09:00)
[2022-07-18] MEDS: DOXAZOSIN 2 MG TAB PO SCH (09:00)
[2022-07-18] MEDS: ISOSORBIDE MONO SR 60 MG TAB PO SCH (09:00)
[2022-07-18] MEDS: GABAPENTIN 300 MG CAP PO SCH (09:00)
[2022-07-18] MEDS ORDERED: PRASUGREL (EFFIENT) 10 MG TAB ONE (09:34)
[2022-07-18 10:50] VITALS: O2SAT 96
[2022-07-18] MEDS: HYDRALAZINE HCL 25 MG TABLET PO SCH (12:12)
[2022-07-18] MEDS: cloNIDine HCL 0.1 MG TAB PO SCH (12:12)
--- NOTE | 2022-07-18 12:22 | OP ---
Date of Procedure: 07/18/2022 Surgeon: Evan Dunn MD [employer]pper Tank Storage: Ms. Radha Godoy. Admitted to Dr. Gurrola on 07/14/2022 with unstable angina, brought to the label tacker today on 07/18/2021, prepped and draped in routine sterile fashion, given Versed and fentanyl for sedation. Indications For The Procedure: Unstable angina and history of coronary artery disease. Patient unde rwent left heart catheterization, selective coronary arteriogram, common femoral artery angiogram, an gioplasty and stent of the circumflex. Angioplasty and stent of the obtuse marginal. Angiomax thera py and Effient therapy. Procedure In Detail: In the label tacker, patient was prepped in the routine sterile fashion, given Vers ed and fentanyl for sedation. 6-Albanian sheath introduced in the right common femoral artery successf ully using the Seldinger technique and 10 cc of Xylocaine. Angiography in the common femoral artery was normal. Angio-Seal was used to close the case. Stephanie catheter, left and right, was used to do the diagnostic catheterization. The RCA was small and nondominant. The left main was normal. Prox imal LAD had an ostial 40% stenosis. Proximal circumflex had a 70% stenosis, which is a new stenosis ; the OM had an 80% to 99% proximal OM, appeared to be like may be a dissection, possibly spontaneous . Nevertheless, we decided to intervene. Patient received Angiomax bolus and drip. 60 mg of Effien t was given. XB 3.5 guide with side-hole was used to cannulate the left main. A [place] wire was use d to initially cross the OM. The OM was pre-dilated with a 2.5 x 12 Emerge, and then a 2.5 x 12 Syne rgy stent was deployed with excellent results with 0% residual. At the proximal circumflex, we used a 3.0 x 12 Synergy stent with some residual stenosis. This was postdilated to 0% using a 3.0 x 15 No ncompliant Emerge balloon. Both OM and circumflex has a 0% residual at the end of the case with exce llent results. No complication. Angiomax was given. Effient was given. Blood Loss: 5 cc. Postoperative Diagnoses: Status post angioplasty and stent of the obtuse marginal proximal, status p ost angioplasty and stent of the circumflex proximal. Patient remained in the hospital up to 4 to 6 hours after the procedure, 2 hours of bedrest. She katelynn l go home today. We will see her in the office in 2 weeks. Total conscious sedation was 60 minutes CIRILO/JAMIL Voice ID: [id number] Report ID: [id number]
--- NOTE | 2022-07-18 14:17 | EKG ---
Test Date: 2022-07-14 Test Time: 19:12:10 Derrick Barge Operator: BERTRAND MEASUREMENT RESULTS: Intervals: Rate: 85 CA: 228 QRSD: 72 QT: 386 QTc: 459 [place]: P: 65 CA: 228 QRS: 49 T: 81 INTERPRETIVE STATEMENTS: Sinus rhythm with 1st degree AV block with occasional premature ventricular complexes Cannot rule out Anterior infarct, age undetermined Abnormal ECG Compared to ECG 05/30/2022 17:03:59 Ventricular premature complex(es) now present First degree AV block now present Myocardial infarct finding now present Sinus arrhythmia no longer present Electronically Signed On 07-18-22 14:14:29 CDT by Miguel Colbert
[2022-07-18 16:53] VITALS: BP 170/74; TEMP 97.2
--- NOTE | 2022-07-19 03:57 | DS ---
Date of Discharge: 07/18/2022 Disposition: Discharged to go home. Physical Examination: HEENT: Unremarkable. Lungs: Clear to auscultation. Heart: Sounds normal. Abdomen: Soft. Bowel sounds normal. No guarding, rigidity, tenderness, or distention. Extremities: No leg edema. Discharge Medications And Instructions: 1.Continue all prior home medications. 2.Stop aspirin 81 mg daily. 3.Start clopidogrel 75 mg daily and start it as of tomorrow. 4.Restart Eliquis as of tomorrow. 5.Follow up at my office next week and Dr. Dunn in 2 weeks. Laboratory Data: Upon admission: White count 6.7, hemoglobin 11.6, platelets 161. Last CBC from : White count 5.7, hemoglobin 10.9, platelets 140, platelet count this morning was 142. Last chemistry today: Sodium 140, potassium 3.6, chloride 108, bicarb 29, BUN 21, creatinine 1.09, gluco se 135, triglyceride was 82, total cholesterol 123, LDL 52, HDL 55, this was on 07/15/2022. Her last troponin was 570 and first troponin was 739. Final Diagnoses: 1.Non-ST elevation myocardial infarction. 2.Coronary artery disease. 3.Moderate persistent asthma. 4.Hypertension. 5.Hyperlipidemia. 6.Paroxysmal atrial fibrillation. 7.Hypothyroidism. 8.Chronic anticoagulation therapy. 9.Impaired fasting glucose. 10.Gastroesophageal reflux disease. 11.Osteoarthritis, multiple sites. 12.Morbid obesity. Hospital Course: This is an 82-year-old very pleasant female patient, who came into office with comp laints of chest pain and shortness of breath. Please see dictated H and P for more information. Aft er patient was evaluated in our office, she was admitted to the hospital. Further evaluation reveale d the patient had non-STEMI. She was started on heparin drip. On outpatient basis, she takes Eliqui s. Other usual home medications were continued. Cardiology consultation was obtained from Dr. Rob jimenez and he recommended cardiac cath and this morning, Dr. Dunn did cardiac cath and he actually did end up putting a stent. After the procedure, he contacted me and informed me that he wants the patie nt to stay on Eliquis and clopidogrel combination for 6 months. After that, the patient can stop serina pidogrel and restart her aspirin at that time. From Cardiology point of view, she can go home this e vening. Medically, she was stable for discharge and she was sent home with above-mentioned medicatio n instruction. Dr. Dunn has given a prescription for clopidogrel to patient's daughter. YOLY/MODL Voice ID: [id number] Report ID: [id number]
[2022-07-19] MEDS ORDERED: CLOPIDOGREL 75 MG TABLET PO SCH (09:00)
== END 2022-07-18 19:14 | disposition home or self-care (01) | DRG 246 ==
LOC: ER 17:48 → 2ND 22:16 → 4TH 22:45
PROVIDERS: ADMIT Internal Medicine; ATTEND Internal Medicine
PROC: 027035Z Dilation of Coronary Artery, One Artery with Two Drug-eluting Intraluminal Devices, Percutaneous Approach (ICD-10-PCS; principal; 2022-07-18)
PROC: 4A023N7 Measurement of Cardiac Sampling and Pressure, Left Heart, Percutaneous Approach (ICD-10-PCS; 2022-07-18)
PROC: B2111ZZ Fluoroscopy of Multiple Coronary Arteries using Low Osmolar Contrast (ICD-10-PCS; 2022-07-18)
DX: I11.0 Hypertensive heart disease with heart failure (principal); I21.4 Non-ST elevation (NSTEMI) myocardial infarction; I50.33 Acute on chronic diastolic (congestive) heart failure; Z68.42 Body mass index [BMI] 45.0-49.9, adult; E66.01 Morbid (severe) obesity due to excess calories; I25.110 Atherosclerotic heart disease of native coronary artery with unstable angina pectoris; K21.9 Gastro-esophageal reflux disease without esophagitis; E03.9 Hypothyroidism, unspecified; I48.0 Paroxysmal atrial fibrillation; M19.09 Primary osteoarthritis, other specified site; J45.40 Moderate persistent asthma, uncomplicated; D69.6 Thrombocytopenia, unspecified; E78.5 Hyperlipidemia, unspecified; R73.01 Impaired fasting glucose; Z88.8 Allergy status to other drugs, medicaments and biological substances; Z86.73 Personal history of transient ischemic attack (TIA), and cerebral infarction without residual deficits; Z90.49 Acquired absence of other specified parts of digestive tract; Z79.01 Long term (current) use of anticoagulants; Z79.02 Long term (current) use of antithrombotics/antiplatelets; Z79.82 Long term (current) use of aspirin; Z79.890 Hormone replacement therapy; Z90.710 Acquired absence of both cervix and uterus; Z79.899 Other long term (current) drug therapy; Z20.822 Contact with and (suspected) exposure to COVID-19
CPT/HCPCS: 36415; 71045; 80048; 80053; 80061; 83735; 83880; 84484; 85025; 85049; 85347; 85610; 85730; 87811; 93005; 93306; 93454; 94640; 99281; C1725; C1760; C1893; C9600; G0269; J0583; J1644; J1940; J2001; J2250; J3010; J7040; Q9967

== ENCOUNTER 2022-12-01 20:09 | Inpatient (IN) | payer OTHER, MEDICARE ==
--- OUTSIDE RECORDS SUMMARY | 2022-12-01 20:17 | XMS REPORT | Continuity of Care Document ---
:1940 Author Organization [facility] t Address [address] [place] [address] Care Team Providers Name Role Phone Paz Galdamez MD Primary Care Physician Judd Gurrola Attending Clinician Unavailable PAZ GALDAMEZ Attending Clinician Unavailable MD PAZ GALDAMEZ Attending Clinician Unavailable LEO MURRELL APRN Attending Clinician Unavailable LEO MURRELL, DAMIÁN Attending Clinician Unavailable Serina Begum Attending Clinician PAZ GALDAMEZ Admitting Clinician Unavailable MD PAZ GALDAMEZ Admitting Clinician Unavailable Serina Begum Admitting Clinician Problems Condition Condition Condition Status Onset Resolution Last Treating Co mments Source Name Details Category Date Date Treatment Clinician Date Persistent Persistent Disease Active M ethodi atrial atrial 3-18 st fibrillati fibrillati 00:00: Ho spita on on 00 l ISCHEMIC ISCHEMIC Diagnosis Active 2015-02-19 Memoria STROKE STROKE 2 08:33:00 l Active 00:00: Elia 11/23/2014 00 [facility] LFLT LFLT Diagnosis Active 2015-02-19 Mem oria TRANSFER#5 TRANSFER#5 11-23 08:34:00 l 34 34 Active 00:00: Elia 11/23/2014 00 [facility] History of History of Problem Resolve UT [...] Problem Active [facility] apnea apnea Physici ans Encounter Encounter Problem Active [place] for for Physici administra administra an s tion of tion of COVID-19 COVID-19 vaccine vaccine [id number] Left renal Problem Co mmon mass [facility] [id number] Vaginal Problem Common yeast Spirit infection [facility] [id number] Thrush, Problem Common oral [facility] [id number] Primary Problem 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 itis of [facility] left knee [facility] [id number] [place], [place] [id number] joint, Spirit knee, left - [facility] [id number] [place] Problem Com mon stinal Spirit fistula - [facility] [id number] H/O: CVA Problem Comm on (cerebrova Spirit scular - [facility] accident) [facility] [id number] Recurrent Problem Com mon UTI Spirit [facility] [id number] Functional Problem Co mmon urinary Spirit incontinen - [facility] Hypertensi Hypertens Problem Active 2017-06-17 Thadoria ve heart adrienne heart 02:45:15 Matty chronic chronic kidney kidney disease, disease, benign, benign, with heart with heart failure failure and with and with chronic chronic kidney kidney disease disease stage I stage I through through stage IV, stage IV, or or unspecifie unspecifie d d Active Problem 06/17/2017 [facility] 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, e 02:45:15 l not disorder, [place] elsewhere not classified elsewhere classified Active Problem 06/17/2017 [facility] Urinary Urinary Problem Active 2017-06-17 Me moria tract tract 02:45:15 l infection, infection, He rmann site not site not specified specified Active Problem 06/17/2017 [facility] Unspecifie Unspecifi Problem Active 2017-06-17 Memoria d ed 02:45:15 l arthropath arthropath He rmann y, site y, site unspecifie unspecifie d d Active Problem 06/17/2017 [facility] Frequency Problem Active 2017-06-17 Me moria of Frequency 02:45:15 l micturitio of Epifanio n n micturitio n Active Problem 06/17/2017 [facility] Morbid Morbid Problem Active 2017-06-17 Alek bethany obesity obesity 02:45:15 l Active [place] Problem 06/17/2017 [facility] Female Female Problem Active 2017-06-17 Alek bethany genuine genuine 02:45:15 l stress stress [place] incontinen incontinen ce ce Active Problem 06/17/2017 [facility] Nonspecifi Nonspecif Problem Active 2017-06-17 Memoria c abnormal ic 02:45:15 l electrocar abnormal Herm alexandra diogram electrocar (ECG) diogram (EKG) (ECG) (EKG) Active Problem 06/17/2017 [facility] Palpitatio Palpitati Problem Active 2017-06-17 Memoria ns ons Active 02:45:15 l Problem [place] 06/17/2017 [facility] Other Other Problem Active 2017-06-17 Alek bethany specified specified 02:45:15 l cardiac cardiac [place] dysrhythmi dysrhythmi as as Active Problem 06/17/2017 [facility] Upper Upper Problem Active 2017-06-17 Alek bethany respirator respirator 02:45:15 l y tract y tract Elia hypersensi hypersensi tivity tivity reaction, reaction, site site unspecifie unspecifie d d Active Problem 06/17/2017 [facility] Unspecifie Problem Active 2017-06-17 M emoria d Unspecifie 02:45:15 l transient d [place] cerebral transient ischemia cerebral ischemia Active Problem 06/17/2017 [facility] Personal Personal Problem Active 2017-06-17 Memoria history of history of 02:45:15 l fall fall [place] Active Problem 06/17/2017 [facility] Acute Acute Problem Active 2017-06-17 Memor ia upper upper 02:45:15 l respirator respirator He rmann y y infections infections of of unspecifie unspecifie d site d site Active Problem 06/17/2017 [facility] CVA CVA Diagnosis Active 2015-02-19 Mem oria Active 08:33:00 l [facility] Gastroesop Gastroeso Problem Resolve 2014-11-28 Memoria hageal phageal d 15:24:41 l reflux reflux Elia disease disease (disorder) (disorder) Resolved Problem 11/28/2014 [facility] Hyperchole Problem Resolve 2014-11-28 Memoria sterolemia Hyperchole d 15:24:41 l (disorder) sterolemia He rmann (disorder) Resolved Problem 11/28/2014 [facility] Hyperlipid Hyperlipi Problem Resolve 2014-11-28 Memoria emia demia d 15:24:41 l (disorder) (disorder) He rmann Resolved Problem 11/28/2014 [facility] Hypertensi Hypertens Problem Resolve 2014-11-28 Memoria ve adrienne d 15:24:41 l disorder, disorder, Herm alexandra systemic systemic arterial arterial (disorder) (disorder) Resolved Problem 11/28/2014 [facility] Hypothyroi Hypothyro Problem Resolve 2014-11-28 Memoria dism idism d 15:24:41 l (disorder) (disorder) He rmann Resolved Problem 11/28/2014 [facility] Atrial Atrial Problem Active 2017-06-17 Alek bethany fibrillati fibrillati 02:45:15 l on on Active [place] Problem 06/17/2017 [facility] Personal Personal Problem Active 2017-06-17 Memoria history of history of 02:45:15 l transient transient Herm alexandra ischemic ischemic attack attack [TIA], and [TIA], and cerebral cerebral infarction infarction without without residual residual deficits deficits Active Problem 06/17/2017 [facility] Palpitatio Palpitati Problem Active 2017-06-17 Memoria ns ons Active 02:45:15 l Problem Elia 06/17/2017 [facility] Transient Transient Problem Active 2017-06-17 Memoria cerebral cerebral 02:45:15 l ischemic ischemic Epifanio n attack, attack, unspecifie unspecifie d d Active Problem 06/17/2017 [facility] Bradycardi Bradycard Problem Active 2017-06-17 Memoria a, ia, 02:45:15 l unspecifie unspecifie He rmann d d Active Problem 06/17/2017 [facility] Personal Personal Problem Active 2017-06-17 Memoria history of history of 02:45:15 l transient transient Herm alexandra ischemic ischemic attack attack (TIA), and (TIA), and cerebral cerebral infarction infarction without without residual residual deficits deficits Active Problem 06/17/2017 [facility] History of History Problem Active 2017-06-17 Memoria falling of falling 02:45:15 l Active Elia Problem 06/17/2017 [facility] Abnormal Abnormal Problem Active 2017-06-17 Memoria electrocar electrocar 02:45:15 l diogram diogram Elia [ECG] [ECG] [EKG] [EKG] Active Problem 06/17/2017 [facility] Arthropath Problem Active 2017-06-17 M emoria y, Arthropath 02:45:15 l unspecifie y, Epifanio n d unspecifie d Active Problem 06/17/2017 [facility] Major Major Problem Active 2017-06-17 Memor ia depressive depressive 02:45:15 l disorder, disorder, Herm alexandra single single episode, episode, unspecifie unspecifie d d Active Problem 06/17/2017 [facility] Chest Chest Problem Active 2017-06-17 Memor ia pain, pain, 02:45:15 l unspecifie unspecifie He rmann d d Active Problem 06/17/2017 [facility] Shortness Shortness Problem Active 2017-06-17 Memoria of breath of breath 02:45:15 l Active Elia Problem 06/17/2017 [facility] Constipati Constipat Problem Active 2017-06-17 Memoria on, ion, 02:45:15 l unspecifie unspecifie He rmann d d Active Problem 06/17/2017 [facility] Hypothyroi Problem Active 2017-06-17 M emoria dism, Hypothyroi 02:45:15 l unspecifie dism, Epifanio n d unspecifie d Active Problem 06/17/2017 [facility] Hyperlipid Hyperlipi Problem Active 2017-06-17 Memoria emia, demia, 02:45:15 l unspecifie unspecifie He rmann d d Active Problem 06/17/2017 [facility] Chronic Chronic Problem Active 2017-06-17 Me moria kidney kidney 02:45:15 l disease, disease, Epifanio n unspecifie unspecifie d d Active Problem 06/17/2017 [facility] Insomnia, Insomnia, Problem Active 2017-06-17 Memoria unspecifie unspecifie 02:45:15 l d d Active [place] Problem 06/17/2017 [facility] Nonrheumat Nonrheuma Problem Active 2017-06-17 Memoria ic mitral tic mitral 02:45:15 l (valve) (valve) [place] insufficie insufficie ncy ncy Active Problem 06/17/2017 [facility] Paroxysmal Paroxysma Problem Active 2017-06-17 Memoria atrial l atrial 02:45:15 l fibrillati fibrillati He rmann on on Active Problem 06/17/2017 [facility] Occlusion Problem Active 2017-06-17 Me moria and Occlusion 02:45:15 l stenosis and [place] 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 Active Problem 06/17/2017 [facility] Chronic Chronic Problem Active 2017-06-17 M emoria kidney kidney 02:45:15 l disease, disease, Epifanio n Stage III Stage III (moderate) (moderate) Active Problem 06/17/2017 [facility] Congestive Congestiv Problem Active 2017-06-17 Memoria heart e heart 02:45:15 l failure, failure, Epifanio n unspecifie unspecifie d d Active Problem 06/17/2017 [facility] Hypertensi Hypertens Problem Active 2017-06-17 Memoria on ion 02:45:15 l essential essential Herm alexandra benign benign Active Problem 06/17/2017 [facility] Occlusion Occlusion Problem Active 2017-06-17 Memoria and and 02:45:15 l stenosis stenosis Epifanio n of carotid of carotid artery artery without without mention of mention of cerebral cerebral infarction infarction Active Problem 06/17/2017 [facility] Insomnia, Insomnia, Problem Active 2017-06-17 Memoria unspecifie unspecifie 02:45:15 l d d Active [place] Problem 06/17/2017 [facility] 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 02:45:15 l disorders disorders Herm alexandra Active Problem 06/17/2017 [facility] Other and Other and Problem Active 2017-06-17 Memoria unspecifie unspecifie 02:45:15 l d d Elia hyperlipid hyperlipid emia emia Active Problem 06/17/2017 [facility] Unspecifie Unspecifi Problem Active 2017-06-17 Memoria d ed 02:45:15 l hypothyroi hypothyroi He rmann dism dism Active Problem 06/17/2017 [facility] Obesity, Obesity, Problem Active 2017-06-17 Memoria unspecifie unspecifie 02:45:15 l d d Active [place] Problem 06/17/2017 [facility] Other Other Problem Active 2017-06-17 Memor ia malaise malaise 02:45:15 l and and [place] fatigue fatigue Active Problem 06/17/2017 [facility] Shortness Shortness Problem Active 2017-06-17 Memoria of breath of breath 02:45:15 l Active Elia Problem 06/17/2017 [facility] Chest Chest Problem Active 2017-06-17 Alek bethany pain, pain, 02:45:15 l unspecifie unspecifie He rmann d d Active Problem 06/17/2017 [facility] Chronic Chronic Problem Active 2017-06-17 Me moria diastolic diastolic 02:45:15 l (congestiv (congestiv He rmann e) heart e) heart failure failure Active Problem 06/17/2017 [facility] Unspecifie Unspecifi Problem Active 2017-06-17 Memoria d ed 02:45:15 l constipati constipati He rmann on on Active Problem 06/17/2017 [facility] Hypertensi Hypertens Diagnosis Active 2017-06-17 Memoria ve heart adrienne heart 02:45:15 l and and [place] chronic chronic kidney kidney disease disease with heart with heart failure failure and stage and stage 1 through 1 through stage 4 stage 4 chronic chronic kidney kidney disease, disease, or or unspecifie unspecifie d chronic d chronic kidney kidney disease disease Active Diagnosis 06/17/2017 [facility] Impaired Impaired Problem Active 2017-06-17 Memoria fasting fasting 02:45:15 l blood blood [place] sugar sugar Active Problem 06/17/2017 [facility] Overactive Overactiv Problem Active 2017-06-17 Memoria bladder e bladder 02:45:15 l Active [place] Problem 06/17/2017 [facility] Incontinen Problem Active 2017-06-17 M emoria ce without Incontinen 02:45:15 l sensory ce without Sunni nn awareness sensory awareness Active Problem 06/17/2017 [facility] Encounter Problem Active 2017-06-17 Me moria for Encounter 02:45:15 l screening for Elia for screening diabetes for mellitus diabetes mellitus Active Problem 06/17/2017 [facility] Retention Retention Problem Active 2017-06-17 Memoria of urine, of urine, 02:45:15 l unspecifie unspecifie He rmann d d Active Problem 06/17/2017 [facility] Allergies, Adverse Reactions, Alerts Allergy Allergy Status [...] but she does not know the name. angioten angioten Active Unknown Commo n sin-conv sin-conv [facility] erting erting - [facility] enzyme enzyme [facility] inhibito inhibito [facility] Nembutal Allergy Active [facility] to drug [facility] (finding ans ) Family History Family Member Diagnosis Comments Start Date Stop Date Source Mother Family history of [facility] pancreatic cancer Father Family history of cardiac [facility] disorder Social History Social Habit Start Date Stop Date Quantity Comments Source History of Common Spirit - Tobacco Use [facility] Tobacco use and 2021-01-07 2021-01-07 Smokeless tobacco [facility] exposure 00:00:00 00:00:00 non-user Hospital Smoking 2016-09-27 2016-09-27 [facility] 00:00:00 00:00:00 Sex [birth year] [employer] 00:00:00 00:00:00 Hospital Smoking Status Start Date Stop Date Source Former Smoker 2022-10-27 00:00:00 2022-10-27 00:00:00 Common S pirit - [facility] Social History [facility] Medications Ordered Filled Start Stop Current Ordering Indication Dosage Frequency Signature Comments Components Source Medication Medication Date Date Medication? Clinician (SIG) Name Name Lidocaine Lidocaine No 10mg Com mon 10-27 [facility] 00:00: - [facility] 00 [facility] Kenalog Kenalog No 40mg Common (Triamcinol (Triamcinol 10-27 S pirit one) one) 00:00: - [facility] 00 [facility] Nitrofurant Nitrofurant 2021-10- No 1{capsu QD Nitrofuran oin Monohyd oin Monohyd 11-23 le_with toin Macro 100 Macro 100 00:00: 00:00 _food} Monohyd MG MG 00 :00 Macro 100 MG Nitrofurant Nitrofurant 2021-10- No 1{capsu QD Nitrofuran oin Monohyd oin Monohyd 11-23 le_with toin Macro 100 Macro 100 00:00: 00:00 _food} Monohyd MG MG 00 :00 Macro 100 MG Fluconazole Fluconazole 2021-10- No 1{table QD Fluconazol 150 MG 150 MG 11-23 t} e 150 MG 00:00: 00:00 00 :00 Cephalexin Cephalexin 2021-10- No 1{capsu QD Cephalexin 500 MG 500 MG 11-12 le} 500 MG 00:00: 00:00 00 :00 Nitrofurant Nitrofurant 2021-10- No 1{capsu BID Nitrofuran oin Monohyd oin Monohyd 08-22 le_with toin Macro 100 Macro 100 00:00: 00:00 _food} Monohyd MG MG 00 :00 Macro 100 MG Nitrofurant Nitrofurant 2021-10- No 1{capsu BID Nitrofuran oin Monohyd oin Monohyd 0-08-22 le_with toin Macro 100 Macro 100 00:00: 00:00 _food} Monohyd MG MG 00 :00 Macro 100 MG Nitrofurant Nitrofurant 2021-10- No QD Nitrofuran oin Monohyd oin Monohyd 0-10-29 toin Macro 100 Macro 100 00:00: 00:00 Monohyd MG MG 00 :00 Macro 100 MG Nitrofurant Nitrofurant 2021-10- No QD Nitrofuran oin Monohyd oin Monohyd 010-29 toin Macro 100 Macro 100 00:00: 00:00 Monohyd MG MG 00 :00 Macro 100 MG Nitrofurant Nitrofurant 2021-10- No QD Nitrofuran oin Monohyd oin Monohyd 010-29 toin Macro 100 Macro 100 00:00: 00:00 Monohyd MG MG 00 :00 Macro 100 MG levothyroxi 2020-0 Yes 112ug QD Take 112 M ethodi ne 3-[address] (SYNTHROID) 14:14: mouth Hospi ta 112 mcg 45 daily. l tablet doxazosin Yes Take by Metho di (CARDURA) 4 3-[address] MG tablet 14:14: Taking 1/2 Ho spita 45 tablet in l the morning and 1 tablet in the evening losartan 0 Yes 50mg Q.5D Take 50 mg Met hodi (COZAAR) 50 3-[address] MG tablet 14:14: (two) Hospita 45 times a l day. diltiazem 0 Yes 120mg QD Take 120 Met hodi CD 3-[address] (CardIZEM 14:14: mouth Hospita CD) 120 MG 45 daily. l 24 hr capsule apixaban 2020-0 Yes 5mg Q.5D Take 5 mg Meth [...] tablet 45 l gabapentin 2020-0 Yes 200mg [id number] Take 200 Methodi (NEURONTIN) 3-21 [id number] mg by s t 100 mg 14:14: 3D mouth 3 Hospita capsule 45 (three) l times a day. icosapent 2020-0 Yes 1g Q.5D Take 1 g Meth opal ethyL 3-[address] (Vascepa) 1 14:14: (two) Hospi ta gram 45 times a l capsule day with meals. liothyronin 0 Yes 10ug QD Take 10 Met hodi e (CYTOMEL) 3-[address] 5 MCG 14:14: mouth Hospita tablet 45 daily. l levothyroxi 2020-0 Yes 112ug QD Take 112 M ethodi ne 3-[address] (SYNTHROID) 14:14: mouth Hospi ta 112 mcg 45 daily. l tablet aspirin 0 Yes 81mg QD Take 81 mg Meth opal (ECOTRIN) 3-[address] 81 MG 14:14: daily. Hospita enteric 45 l coated tablet doxazosin 0 Yes Take by Metho di (CARDURA) 4 3-[address] MG tablet 14:14: Taking 1/2 Ho spita 45 tablet in l the morning and 1 tablet in the evening losartan 2020-0 Yes 50mg Q.5D Take 50 mg Met hodi (COZAAR) 50 3-[address] MG tablet 14:14: (two) Hospita 45 times a l day. diltiazem 0 Yes 120mg QD Take 120 Met hodi CD 3-[address] (CardIZEM 14:14: mouth Hospita CD) 120 MG 45 daily. l 24 hr capsule apixaban 2020-0 Yes 5mg Q.5D Take 5 mg Meth opal (ELIQUIS) 5 3-[address] mg tablet 14:14: (two) Hospita 45 times a l day. furosemide 2020-0 Yes 20mg Q.5D Take 20 mg M ethodi (LASIX) 20 3-[address] mg tablet 14:14: (two) Hospita 45 times a l day. atenoloL 2021-0 Yes 25mg QD Take 25 mg Met hodi (TENORMIN) 3-[address] 50 MG 14:14: daily. Hospita tablet 45 l gabapentin 2020-0 Yes 200mg Q.[id number] Take 200 Methodi (NEURONTIN) 3-21 [id number] mg by s t 100 mg 14:14: [...] l mouth 2 (two) times a day. clonIDINE 2020-0 Yes .1mg Q.5D Take 1 [...] TABLET Physici MG Oral MG Oral 00:00: WELFARE ADVISER DAILY. ans Tablet Tablet 00 Gabapentin Gabapentin Yes Take 1 UT 100 MG Oral 100 MG Oral 9-23 tablet AM Physici Capsule Capsule 00:00: , 200 in ans 00 the afternoon, 200 in the evening clonazePAM clonazePAM 2019- Yes 1 QD TAKE 1 UT 1 [...] 1 tablet M emoria 8-17 l 00:00: [place] 00 Eliquis 2017- Yes Melissa Ali 1 tablet M emoria 8-17 l 00:00: [place] Edarbyclor Edarbyclor 2017- Yes MUNACHI 1 QD TAKE 1 UT 40-25 MG 40-25 MG 4-20 OKPALA TABLET BY Physici Oral Tablet Oral Tablet 00:00: WELFARE ADVISER MOUTH ONCE ans 00 DAILY Edarbyclor 2017-0 Yes Melissa Ali 1 tablet Memoria 3-28 l 00:00: Elia Edarbyclor 2017-0 Yes Melissa Ali 1 tablet Memoria 3-28 l 00:00: [place] 00 Edarbyclor Yes Melissa Ali 1 tablet Memoria 3-13 l 00:00: [place] 00 Edarbyclor Yes Melissa Ali 1 tablet Memoria 3-13 l 00:00: Elia 00 Tikosyn No Melissa Ali TAKE ONE M emoria 3-01 CAPSULE BY l 03:45: MOUTH [place] 56 TWICE A DAY Tikosyn No Melissa Ali TAKE ONE M emoria 3-01 CAPSULE BY l 03:45: MOUTH Elia 56 TWICE A DAY Dofetilide Yes Melissa Ali 1 capsule Memoria 2-28 l 00:00: [place] 00 Dofetilide Yes Melissa Ali 1 capsule Memoria 2-28 l 00:00: Elia 00 Doxazosin 2015-10 No Melissa Ali TAKE ONE Memoria Mesylate 1-19 TABLET BY l 03:48: MOUTH [place] 47 DAILY Doxazosin 2015-10 No Melissa Ali TAKE ONE Memoria Mesylate 1-19 TABLET BY l 03:48: MOUTH [place] 47 DAILY Cipro Yes Vaseem Ali 1 tablet Me moria 6-24 l 00:00: Elia 00 Cipro Yes Vaseem Ali 1 tablet Me moria 6-24 l 00:00: Elia 00 Pravastatin Pravastatin Yes MUNACHI 1 QD TAKE 1 UT Sodium 40 Sodium 40 7-31 OKPALA TABLET P hysici MG Oral MG Oral 00:00: WELFARE ADVISER DAILY. ans Tablet Tablet 00 Doxazosin Doxazosin Yes MUNACHI 1 Q0.5D TAKE 1 UT Mesylate 4 Mesylate 4 3-17 OKPALA TABLET Physici MG Oral MG Oral 00:00: WELFARE ADVISER TWICE ans Tablet Tablet 00 DAILY Viteyes Viteyes Yes MUNACHI 1 QD TAKE 1 UT Complete Complete 3-17 OKPALA CAPSULE Ph ysici Oral Oral 00:00: WELFARE ADVISER DAILY. ans Capsule Capsule 00 Liothyronin Liothyronin Yes MUNACHI 1 QD TAKE 1 UT e Sodium 5 e Sodium 5 3-17 OKPALA TABLET Physici MCG Oral MCG Oral 00:00: WELFARE ADVISER DAILY. ans Tablet Tablet 00 Warfarin No Notes: Char 2-04 Nurse to l 18:03: ensure [place] 00 documentat ion of patient education per anticoagul ation policy. Avoid large intake of vitamin-K containing foods diet. (Same As: Coumadin) Warfarin No Notes: Char 2-04 Nurse to l 18:03: ensure [place] 00 documentat ion of patient education per anticoagul ation policy. Avoid large intake of vitamin-K containing foods diet. (Same As: Coumadin) valsartan 2014- Yes 40 mg = 1 Mem oria [...] # 2 l tablet 17:52: tab, 0 [place] 00 Refill(s) Atenolol 25 Yes 12.5 mg = M emoria MG Oral 2-04 0.5 tab, l Tablet 17:52: PO, Daily, Sunni nn 00 0 Refill(s) valsartan Yes 40 mg = 1 Mem oria 40 mg oral 2-04 tab, PO, l tablet 17:52: Q12H, # 60 Sunni nn 00 tab, 3 Refill(s) atorvastati Yes 40 mg = 1 M emoria n 40 mg 2-04 tab, PO, l oral tablet 17:52: Bedtime, # Elia 00 30 tab, 3 Refill(s) clopidogrel 2014-0 Yes 75 mg = 1 M emoria 75 mg oral 2-04 tab, PO, l tablet 17:52: Daily, # Elia 00 30 tab, 0 Refill(s) warfarin 5 2014-0 Yes 5 mg, PO, Me moria mg oral 2-04 Daily, # 2 l tablet 17:52: tab, 0 Elia 00 Refill(s) Atenolol 25 Yes 12.5 mg = M emoria MG Oral 2-04 0.5 tab, l Tablet 17:52: PO, Daily, Sunni nn 00 0 Refill(s) valsartan No Notes: Memori a 2-04 Same as l 15:00: Diovan Elia 00 valsartan No Notes: Memori a 2-04 Same as l 15:00: Diovan [place] 00 Protonix No Notes: Memoria 2-03 Tablet l 22:30: should not [place] 00 be chewed or crushed. (Same as: Protonix) Protonix No Notes: Memoria 2-03 Tablet l 22:30: should not Elia 00 be chewed or crushed. (Same as: Protonix) Atenolol No Notes: Memoria 2-03 (Same l 15:00: As:Tenormi Elia 00 n) valsartan No 320 mg, Memor ia 2-03 Route: PO, l 15:00: Drug form: [place] 00 TAB, Daily, Dosing Weight 114.318, kg, Start date: 11/25/14 9:00:00, Duration: 30 day, Stop date: 12/24/14 9:00:00 Atenolol No Notes: Memoria 2-03 (Same l 15:00: As:Tenormi Elia 00 n) valsartan No 320 mg, Memor ia 2-03 Route: PO, l 15:00: Drug form: [place] 00 TAB, Daily, Dosing Weight 114.318, kg, Start date: 11/25/14 9:00:00, Duration: 30 day, Stop date: 12/24/14 9:00:00 Thyroxine No Notes: Memori a 2-03 Take 1 l 12:30: hour [place] 00 before or 2 hours after meal; Enteral feeds may interefere with the absorption of this medication . (Same as:Levothr oid, Synthroid) Thyroxine No Notes: Memori a 2-03 Take 1 l 12:30: hour Elia 00 before or 2 hours after meal; Enteral feeds may interefere with the absorption of this medication . (Same as:Levothr oid, Synthroid) heparin, No Notes: Memoria porcine 2-03 porcine l 04:00: heparin Plavix No Notes: Memoria 2-03 (Same As: l 04:00: Plavix) heparin, No Notes: Memoria porcine 2-03 porcine l 04:00: heparin Plavix No Notes: Memoria 2-03 (Same As: l 04:00: Plavix) Tylenol No Notes: Do Memor ia 2- not exceed l 03:16: 4 gm/day. (Same as: Tylenol) Tylenol No Notes: Do Memor ia 2-03 not exceed l 03:16: 4 gm/day. (Same as: Tylenol) atorvastati No Notes: Alek bethany n 2-03 (Same as: l 03:00: Lipitor) atorvastati No Notes: Alek bethany n 2-03 (Same as: l 03:00: Lipitor) Bupropion No Notes: (Do Me moria 2 not crush) l 23:00: (Same As: Wellbutrin SR) valsartan No 40 mg, Memori a 2 Route: PO, l 23:00: BID, Dosing Weight 114.318, kg, Start date: 11/24/14 17:00:00, Duration: 30 day, Stop date: 12/24/14 9:00:00 Bupropion No Notes: (Do Me moria 2 not crush) l 23:00: (Same As: Wellbutrin SR) valsartan No 40 mg, Memori a 2 Route: PO, l 23:00: BID, Dosing Weight 114.318, kg, Start date: 11/24/14 17:00:00, Duration: 30 day, Stop date: 12/24/14 9:00:00 Triiodothyr No Notes: Alek bethany onine 202 (Same as: l 21:35: Cytomel) Triiodothyr No Notes: Alek bethany onine 11-24 [...] tab, PO, l MEQ 20:47: Daily, 0 [place] Extended 00 Refill(s) Release Tablet omeprazole Yes 40 mg = 1 Me moria 40 mg oral 2-02 cap, PO, l delayed 20:47: Daily, # Epifanio n release 00 30 cap, 0 capsule Refill(s) Metolazone No 5 mg = 1 Mem oria 5 MG Oral 2-02 tab, PO, l Tablet 20:47: Daily, # [place] 00 30 tab, 0 Refill(s) liothyronin Yes [...] 00 30 tab, 0 Refill(s) Atenolol No 50 mg = Memori a 100 MG Oral 2-02 0.5 tab, l Tablet 20:47: PO, BID, # Sunni nn 00 30 tab, 0 Refill(s) pravastatin No 40 mg = 1 M emoria 40 mg oral 2-02 tab, PO, l tablet 20:47: Bedtime, # Sunni nn 00 30 tab, 0 Refill(s) Furosemide No 40 mg = 1 Me moria 40 MG Oral 2-02 tab, PO, l Tablet 20:47: Daily, # [place] [Lasix] 00 30 tab, 0 Refill(s) spironolact No 25 mg = 1 M emoria one 25 mg 2-02 tab, PO, l oral tablet 20:47: Daily, # He rmann 00 60 tab, 0 Refill(s) Potassium No 20 mEq = 1 Me moria Chloride 20 2-02 tab, PO, l MEQ 20:47: Daily, 0 [place] Extended 00 Refill(s) Release Tablet omeprazole Yes [...] tab, PO, l Tablet 20:47: Daily, # [place] 00 30 tab, 0 Refill(s) Zolpidem Yes [...] Refill(s) Triiodothyr No Notes: Alek bethany onine 2-02 (Same as: l 20:09: Cytomel) Triiodothyr No Notes: Alek bethany onine 2-02 (Same as: l 20:09: Cytomel) Reglan No Notes: Memoria 2-02 (Same as: l 17:44: Reglan) Reglan No Notes: Memoria 2-02 (Same as: l 17:44: Reglan) Magnesium No 2 gm, 50 Alek bethany Sulfate 2-02 mL, Route: l 17:27: IVPB, Drug form: INJ, ONCE, Dosing Weight 114.318, kg, Total dose = 2 gm, Start date: 11/24/14 11:27:00, Duration: 1 doses or times, Stop date: 11/24/14 11:27:00 Magnesium No 2 gm, 50 Alek bethany Sulfate 2-02 mL, Route: l 17:27: IVPB, Drug form: INJ, ONCE, Dosing Weight 114.318, kg, Total dose = 2 gm, Start date: 11/24/14 11:27:00, Duration: 1 doses or times, Stop date: 11/24/14 11:27:00 pneumococca No Notes: Alek bethany l capsular 2-02 (Same as: l polysacchar 15:00: Pneumovax H ermann sirena type 1 ) vaccine / Refrigerat pneumococca e l capsular polysacchar sirena type 10A vaccine / pneumococca l capsular polysacchar sirena type 11A vaccine / pneumococca l capsular polysacchar sirena type 12F vaccine / pneumococca l capsular polysacchar Saline No Notes: Memoria Flush 0.9% 2-02 (Same as: l 15:00: BD Posiflush) pneumococca No Notes: Alek bethany l capsular 2-02 (Same as: l polysacchar 15:00: Pneumovax H ermann sirena type 1 23) vaccine / Refrigerat pneumococca e l capsular polysacchar sirena type 10A vaccine / pneumococca l capsular polysacchar sirena type 11A vaccine / pneumococca l capsular polysacchar sirena type 12F vaccine / pneumococca l capsular polysacchar Saline No Notes: Memoria Flush 0.9% 11-24 (Same as: l 15:00: BD Elia Posiflush) Versed No Notes: Memoria 2- (Same as: l 14:31: Versed) [place] 00 Versed No Notes: Memoria 2- (Same as: l 14:31: Versed) Pravastatin No 40 mg = 1 M emoria Sodium 40 2-02 tab, PO, l MG Oral 13:59: Bedtime, # Herm alexandra Tablet 00 30 tab, 0 [Pravachol] Refill(s) aspirin No 0 Memoria 2-02 Refill(s) l 13:59: [place] 00 Fenofibrate No 160 mg = 1 Memoria 160 MG Oral 2-02 tab, PO, l Tablet 13:59: Daily, # [place] 00 30 tab, 0 Refill(s) Atenolol No 0 Memoria 2-02 Refill(s) l 13:59: [place] 00 valsartan No 320 mg = 1 Me moria 320 mg oral 2-02 tab, PO, l tablet 13:59: Daily, # [place] 00 30 tab, 0 Refill(s) Potassium No 0 Memoria Chloride 20 202 Refill(s) l MEQ 13:59: [place] Extended 00 Release Tablet Metolazone No 5 mg = 1 Mem oria 5 MG Oral 2-02 tab, PO, l Tablet 13:59: Daily, # [place] 00 30 tab, 0 Refill(s) Furosemide No 40 mg = 1 Me moria 40 MG Oral 2-02 tab, PO, l Tablet 13:59: Daily, # [place] [Lasix] 00 30 tab, 0 Refill(s) liothyronin No 5 Memori a e 5 mcg 2-02 microgram l oral tablet 13:59: = 1 tab, He rmann 00 PO, Daily, # 30 tab, 0 Refill(s) Omeprazole No 0 Memoria 2-02 Refill(s) l 13:59: Elia 00 spironolact No 0 Memori a one 25 mg 2-02 Refill(s) l oral tablet 13:59: Epifanio n 00 Pravastatin No 40 mg = 1 M emoria Sodium 40 2-02 tab, PO, l MG Oral 13:59: Bedtime, # Herm alexandra Tablet 00 30 tab, 0 [Pravachol] Refill(s) aspirin No 0 Memoria 2-02 Refill(s) l 13:59: Elia 00 Fenofibrate No 160 mg = 1 Memoria 160 MG Oral 2-02 tab, PO, l Tablet 13:59: Daily, # [place] 00 30 tab, 0 Refill(s) Atenolol No 0 Memoria 2-02 Refill(s) l 13:59: Elia 00 valsartan No 320 mg = 1 Me moria 320 mg oral 2-02 tab, PO, l tablet 13:59: Daily, # [place] 00 30 tab, 0 Refill(s) Potassium No 0 Memoria Chloride 20 2-02 Refill(s) l MEQ 13:59: [place] Extended 00 Release Tablet Metolazone No 5 mg = 1 Mem oria 5 MG Oral 2-02 tab, PO, l Tablet 13:59: Daily, # [place] 00 30 tab, 0 Refill(s) Furosemide No 40 mg = 1 Me moria 40 MG Oral 2-02 tab, PO, l Tablet 13:59: Daily, # [place] [Lasix] 00 30 tab, 0 Refill(s) liothyronin [...] 2-02 (Same as: l 13:08: Zofran) Elia 00 Zofran No Notes: Memoria 2-02 (Same as: l 13:08: Zofran) Tylenol No Notes: Do Memor ia 2-02 not exceed l 06:48: 4 gm/day. (Same as: Tylenol) Tylenol No Notes: Do Memor ia 2-02 not exceed l 06:48: 4 gm/day. (Same as: Tylenol) Sodium No 1,000 mL, Memori a Chloride 2- Rate: 75 l 0.154 05:06: ml/hr, Elia MEQ/ML 00 Infuse Injectable over: 13.3 Solution hr, Route: IV, Total Volume: 1,000, Start date: 11/23/14 23:06:00, Duration: 30 day, Stop date: 12/23/14 23:05:00 Sodium No 1,000 mL, Memori a Chloride 2- Rate: 75 l 0.154 05:06: ml/hr, [place] MEQ/ML 00 Infuse Injectable over: 13.3 Solution hr, Route: IV, Total Volume: 1,000, Start date: 11/23/14 23:06:00, Duration: 30 day, Stop date: 12/23/14 23:05:00 Saline No Notes: Memoria Flush 0.9% 2-02 (Same as: l 04:58: BD Elia 00 Posiflush) Acetaminoph No Notes: Do M emoria en 11-24 not exceed l 04:58: 4 gm/day. (Same as: Tylenol) Saline No Notes: Memoria Flush 0.9% 2-02 (Same as: l 04:58: BD Elia 00 Posiflush) Acetaminoph No Notes: Do M emoria en 11-24 not exceed l 04:58: 4 gm/day. (Same as: Tylenol) Dofetilide Dofetilide Yes MUNACHI 1 capsule UT 500 MCG 500 MCG OKPALA daily Physic i Oral Oral W[employer] ADVISER ans Capsule Capsule Vitamin D-3 Vitamin D-3 Yes 1 tablet UT CAPS CAPS daily Physici ans Vascepa 1 Vascepa 1 Yes MUNACHI 1 capsule UT GM Oral GM Oral OKPALA daily Physic i Capsule Capsule WELFARE ADVISER ans Dofetilide Dofetilide No 1{capsu BID Dofetilide 250 MCG 250 MCG le} 250 MCG Vitamin D3 Vitamin D3 No 1{capsu QD Vitamin D3 50 MCG 50 MCG le} 50 MCG (1999) (1999 UT) (1999) Aspirin 81 Aspirin 81 No 1{table QD Aspirin 81 81 MG 81 MG t} 81 MG Atorvastati Atorvastati No 1{table QD Atorvastat n Calcium n Calcium t} in Calcium 80 MG 80 MG 80 MG VitEyes VitEyes No VitEyes Classic Classic Classic Advanced Advanced Advanced Albuterol Albuterol No 1{puff_ 6xD Albuterol Sulfate HFA Sulfate HFA as_need Sulfate 108 (90 108 (90 ed} HFA 108 Base) Base) (90 Base) MCG/ACT MCG/ACT MCG/ACT cloNIDine cloNIDine No 1{table QD cloNIDine HCl 0.2 MG HCl 0.2 MG t} HCl 0.2 MG Losartan Losartan No 1{table BID Losartan Potassium Potassium t} Potassium 50 MG 50 MG 50 MG hydrALAZINE hydrALAZINE No 1{table TID hydrALAZIN HCl 50 MG HCl 50 MG t_with_ E HCl 50 food} MG Isosorbide Isosorbide No 1{table QD Isosorbide Mononitrate Mononitrate t_in_th Mononitrat ER 60 MG ER 60 MG e_morni e ER 60 MG ng} Omeprazole Omeprazole No QD Omeprazole 20 MG 20 MG 20 MG Doxazosin Doxazosin No 1{table QD Doxazosin Mesylate 4 Mesylate 4 t} Mesylate 4 MG MG MG Furosemide Furosemide No 1{table QD Furosemide 40 MG 40 MG t} 40 MG Probiotic Probiotic No Probiotic dilTIAZem dilTIAZem No dilTIAZem HCl 120 MG HCl 120 MG HCl 120 MG Trelegy Trelegy No 1{puff} QD Trelegy Ellipta Ellipta Ellipta 200-62.5-25 200-62.5-25 200-62.5-2 MCG/INH MCG/INH 5 MCG/INH Folic Acid Folic Acid No 1{table QD Folic Acid 1 MG 1 MG t} 1 MG Nasal Nasal No 1{spray QD Nasal Allergy 24 Allergy 24 _in_eac Allergy 24 Hour 55 Hour 55 h_nostr Hour 55 MCG/ACT MCG/ACT il} MCG/ACT Eliquis 2.5 Eliquis 2.5 No 1{table BID Eliquis MG MG t} 2.5 MG Gabapentin Gabapentin No 1{capsu QD Gabapentin 300 MG 300 MG le} 300 MG Levothyroxi Levothyroxi No QD Levothyrox ne Sodium ne Sodium ine Sodium 100 MCG 100 MCG 100 MCG Liothyronin Liothyronin No 1{table QD Liothyroni e Sodium 5 e Sodium 5 t_on_an ne Sodium MCG MCG _empty_ 5 MCG stomach } Vascepa 1 Vascepa 1 No 2{capsu BID Vascepa 1 GM GM les_wit GM h_meals } Dofetilide Dofetilide No 1{capsu BID Dofetilide 250 MCG 250 MCG le} 250 MCG cloNIDine cloNIDine No 1{table QD cloNIDine HCl 0.2 MG HCl 0.2 MG t} HCl 0.2 MG Atorvastati Atorvastati No 1{table QD Atorvastat n Calcium n Calcium t} in Calcium 80 MG 80 MG 80 MG Isosorbide Isosorbide No 1{table QD Isosorbide Mononitrate Mononitrate t_in_th Mononitrat ER 60 MG ER 60 MG e_morni e ER 60 MG ng} Levothyroxi Levothyroxi No QD Levothyrox ne Sodium ne Sodium ine Sodium 100 MCG 100 MCG 100 MCG hydrALAZINE hydrALAZINE No 1{table TID hydrALAZIN HCl 50 MG HCl 50 MG t_with_ E HCl 50 food} MG Omeprazole Omeprazole No QD Omeprazole 20 MG 20 MG 20 MG Furosemide Furosemide No 1{table QD Furosemide 40 MG 40 MG t} 40 MG Albuterol Albuterol No 1{puff_ 6xD Albuterol Sulfate HFA Sulfate HFA as_need Sulfate 108 (90 108 (90 ed} HFA 108 Base) Base) (90 Base) MCG/ACT MCG/ACT MCG/ACT Aspirin 81 Aspirin 81 No 1{table QD Aspirin 81 81 MG 81 MG t} 81 MG Furosemide Furosemide No 1{table QD Furosemide 40 MG 40 MG t} 40 MG Vitamin D3 Vitamin D3 No 1{capsu QD Vitamin D3 50 MCG 50 MCG le} 50 MCG (1999 UT) (1999 UT) (1999 [facility]) Gabapentin Gabapentin No 1{capsu QD Gabapentin 300 MG 300 MG le} 300 MG Probiotic Probiotic No Probiotic Vascepa 1 Vascepa 1 No 2{capsu BID Vascepa 1 GM GM les_wit GM h_meals } Eliquis 2.5 Eliquis 2.5 No 1{table BID Eliquis MG MG t} 2.5 MG Folic Acid Folic Acid No 1{table QD Folic Acid 1 MG 1 MG t} 1 MG Levothyroxi Levothyroxi No QD Levothyrox ne Sodium ne Sodium ine Sodium 100 MCG 100 MCG 100 MCG Liothyronin Liothyronin No 1{table QD Liothyroni e Sodium 5 e Sodium 5 t_on_an ne Sodium MCG MCG _empty_ 5 MCG stomach } Losartan Losartan No 1{table BID Losartan Potassium Potassium t} Potassium 50 MG 50 MG 50 MG Dofetilide Dofetilide No 1{capsu BID Dofetilide 250 MCG 250 MCG le} 250 MCG Doxazosin Doxazosin No 1{table QD Doxazosin Mesylate 4 Mesylate 4 t} Mesylate 4 MG MG MG Nasal Nasal No 1{spray QD Nasal Allergy 24 Allergy 24 _in_eac Allergy 24 Hour 55 Hour 55 h_nostr Hour 55 MCG/ACT MCG/ACT il} MCG/ACT VitEyes VitEyes No VitEyes Classic Classic Classic Advanced Advanced Advanced Trelegy Trelegy No 1{puff} QD Trelegy Ellipta Ellipta Ellipta 200-62.5-25 200-62.5-25 200-62.5-2 MCG/INH MCG/INH 5 MCG/INH dilTIAZem dilTIAZem No dilTIAZem HCl 120 MG HCl 120 MG HCl 120 MG dilTIAZem dilTIAZem No dilTIAZem HCl 120 MG HCl 120 MG HCl 120 MG Albuterol Albuterol No 1{puff_ 6xD Albuterol Sulfate HFA Sulfate HFA as_need Sulfate 108 (90 108 (90 ed} HFA 108 Base) Base) (90 Base) MCG/ACT MCG/ACT MCG/ACT Trelegy Trelegy No 1{puff} QD Trelegy Ellipta Ellipta Ellipta 200-62.5-25 200-62.5-25 200-62.5-2 MCG/INH MCG/INH 5 MCG/INH Omeprazole Omeprazole No QD Omeprazole 20 MG 20 MG 20 MG dilTIAZem dilTIAZem No dilTIAZem HCl 120 MG HCl 120 MG HCl 120 MG Nasal Nasal No 1{spray QD Nasal Allergy 24 Allergy 24 _in_eac Allergy 24 Hour 55 Hour 55 h_nostr Hour 55 MCG/ACT MCG/ACT il} MCG/ACT Losartan Losartan No 1{table BID Losartan Potassium Potassium t} Potassium 50 MG 50 MG 50 MG Liothyronin Liothyronin No 1{table QD Liothyroni e Sodium 5 e Sodium 5 t_on_an ne Sodium MCG MCG _empty_ 5 MCG stomach } Liothyronin Liothyronin No 1{table QD Liothyroni e Sodium 5 e Sodium 5 t_on_an ne Sodium MCG MCG _empty_ 5 MCG stomach } Albuterol Albuterol No 1{puff_ 6xD Albuterol Sulfate HFA Sulfate HFA as_need Sulfate 108 (90 108 (90 ed} HFA 108 Base) Base) (90 Base) MCG/ACT MCG/ACT MCG/ACT Eliquis 2.5 Eliquis 2.5 No 1{table BID Eliquis MG MG t} 2.5 MG Vascepa 1 Vascepa 1 No 2{capsu BID Vascepa 1 GM GM les_wit GM h_meals } Vitamin D3 Vitamin D3 No 1{capsu QD Vitamin D3 50 MCG 50 MCG le} 50 MCG (1999 UT) (1999 UT) (1999) Atorvastati Atorvastati No 1{table QD Atorvastat n Calcium n Calcium t} in Calcium 80 MG 80 MG 80 MG Gabapentin Gabapentin No 1{capsu QD Gabapentin 300 MG 300 MG le} 300 MG Levothyroxi Levothyroxi No QD Levothyrox ne Sodium ne Sodium ine Sodium 100 MCG 100 MCG 100 MCG Doxazosin Doxazosin No 1{table QD Doxazosin Mesylate 4 Mesylate 4 t} Mesylate 4 MG MG MG Probiotic Probiotic No Probiotic Doxazosin Doxazosin No 1{table QD Doxazosin Mesylate 4 Mesylate 4 t} Mesylate 4 MG MG MG cloNIDine cloNIDine No 1{table QD cloNIDine HCl 0.2 MG HCl 0.2 MG t} HCl 0.2 MG Furosemide Furosemide No 1{table QD Furosemide 40 MG 40 MG t} 40 MG hydrALAZINE hydrALAZINE No 1{table TID hydrALAZIN HCl 50 MG HCl 50 MG t_with_ E HCl 50 food} MG Aspirin 81 Aspirin 81 No 1{table QD Aspirin 81 81 MG 81 MG t} 81 MG VitEyes VitEyes No VitEyes Classic Classic Classic Advanced Advanced Advanced Isosorbide Isosorbide No 1{table QD Isosorbide Mononitrate Mononitrate t_in_th Mononitrat ER 60 MG ER 60 MG e_morni e ER 60 MG ng} Folic Acid Folic Acid No 1{table QD Folic Acid 1 MG 1 MG t} 1 MG Losartan Losartan No 1{table BID Losartan Potassium Potassium t} Potassium 50 MG 50 MG 50 MG hydrALAZINE hydrALAZINE No 1{table TID hydrALAZIN HCl 50 MG HCl 50 MG t_with_ E HCl 50 food} MG Levothyroxi Levothyroxi No QD Levothyrox ne Sodium ne Sodium ine Sodium 100 MCG 100 MCG 100 MCG Liothyronin Liothyronin No 1{table QD Liothyroni e Sodium 5 e Sodium 5 t_on_an ne Sodium MCG MCG _empty_ 5 MCG stomach } Atorvastati Atorvastati No 1{table QD Atorvastat n Calcium n Calcium t} in Calcium 80 MG 80 MG 80 MG Vascepa 1 Vascepa 1 No 2{capsu BID Vascepa 1 GM GM les_wit GM h_meals } Eliquis 2.5 Eliquis 2.5 No 1{table BID Eliquis MG MG t} 2.5 MG Vascepa 1 Vascepa 1 No 2{capsu BID Vascepa 1 GM GM les_wit GM h_meals } VitEyes VitEyes No [facility] Classic Classic Classic Advanced Advanced Advanced Montelukast Montelukast No Montelukas Sodium Sodium t Sodium Gabapentin Gabapentin No 1{capsu QD Gabapentin 300 MG 300 MG le} 300 MG Isosorbide Isosorbide No 1{table QD Isosorbide Mononitrate Mononitrate t_in_th Mononitrat ER 60 MG ER 60 MG e_morni e ER 60 MG ng} Nasal Nasal No 1{spray QD Nasal Allergy 24 Allergy 24 _in_eac Allergy 24 Hour 55 Hour 55 h_nostr Hour 55 MCG/ACT MCG/ACT il} MCG/ACT hydrALAZINE hydrALAZINE No 1{table TID hydrALAZIN HCl 50 MG HCl 50 MG t_with_ E HCl 50 food} MG cloNIDine cloNIDine No 1{table QD cloNIDine HCl 0.2 MG HCl 0.2 MG t} HCl 0.2 MG Probiotic Probiotic No Probiotic Trelegy Trelegy No 1{puff} QD Trelegy Ellipta Ellipta Ellipta 200-62.5-25 200-62.5-25 200-62.5-2 MCG/INH MCG/INH 5 MCG/INH Losartan Losartan No 1{table BID Losartan Potassium Potassium t} Potassium 50 MG 50 MG 50 MG dilTIAZem dilTIAZem No dilTIAZem HCl 120 MG HCl 120 MG HCl 120 MG Clopidogrel Clopidogrel No Clopidogre Bisulfate Bisulfate l Bisulfate Omeprazole Omeprazole No QD Omeprazole 20 MG 20 MG 20 MG Doxazosin Doxazosin No 1{table QD Doxazosin Mesylate 4 Mesylate 4 t} Mesylate 4 MG MG MG Folic Acid Folic Acid No 1{table QD Folic Acid 1 MG 1 MG t} 1 MG Vitamin D3 Vitamin D3 No 1{capsu QD Vitamin D3 50 MCG 50 MCG le} 50 MCG (1999 UT) (1999 UT) (1999 UT) Albuterol Albuterol No 1{puff_ 6xD Albuterol Sulfate HFA Sulfate HFA as_need Sulfate 108 (90 108 (90 ed} HFA 108 Base) Base) (90 Base) MCG/ACT MCG/ACT MCG/ACT Furosemide Furosemide No 1{table QD Furosemide 40 MG 40 MG t} 40 MG Trelegy Trelegy No 1{puff} QD Trelegy Ellipta Ellipta Ellipta 200-62.5-25 200-62.5-25 200-62.5-2 MCG/INH MCG/INH 5 MCG/INH Dofetilide Dofetilide No 1{capsu BID Dofetilide 250 MCG 250 MCG le} 250 MCG Aspirin 81 Aspirin 81 No 1{table QD Aspirin 81 81 MG 81 MG t} 81 MG Gabapentin Gabapentin No 1{capsu QD Gabapentin 300 MG 300 MG le} 300 MG VitEyes VitEyes No VitEyes Classic Classic Classic Advanced Advanced Advanced Aspirin 81 Aspirin 81 No 1{table QD Aspirin 81 81 MG 81 MG t} 81 MG Omeprazole Omeprazole No QD Omeprazole 20 MG 20 MG 20 MG cloNIDine cloNIDine No 1{table QD cloNIDine HCl 0.2 MG HCl 0.2 MG t} HCl 0.2 MG Vitamin D3 Vitamin D3 No 1{capsu QD Vitamin D3 50 MCG 50 MCG le} 50 MCG (1999 UT) (1999 UT) (1999) Atorvastati Atorvastati No 1{table QD Atorvastat n Calcium n Calcium t} in Calcium 80 MG 80 MG 80 MG Isosorbide Isosorbide No 1{table QD Isosorbide Mononitrate Mononitrate t_in_th Mononitrat ER 60 MG ER 60 MG e_morni e ER 60 MG ng} Folic Acid Folic Acid No 1{table QD Folic Acid 1 MG 1 MG t} 1 MG Probiotic Probiotic No Probiotic Eliquis 2.5 Eliquis 2.5 No 1{table BID Eliquis MG MG t} 2.5 MG Nasal Nasal No 1{spray QD Nasal Allergy 24 Allergy 24 _in_eac Allergy 24 Hour 55 Hour 55 h_nostr Hour 55 MCG/ACT MCG/ACT il} MCG/ACT Furosemide Furosemide No 1{table QD Furosemide 40 MG 40 MG t} 40 MG dilTIAZem dilTIAZem No dilTIAZem HCl 120 MG HCl 120 MG HCl 120 MG Levothyroxi Levothyroxi No QD Levothyrox ne Sodium ne Sodium ine Sodium 100 MCG 100 MCG 100 MCG Folic Acid Folic Acid No 1{table QD Folic Acid 1 MG 1 MG t} 1 MG Albuterol Albuterol No 1{puff_ 6xD Albuterol Sulfate HFA Sulfate HFA as_need Sulfate 108 (90 108 (90 ed} HFA 108 Base) Base) (90 Base) MCG/ACT MCG/ACT MCG/ACT Liothyronin Liothyronin No 1{table QD Liothyroni e Sodium 5 e Sodium 5 t_on_an ne Sodium MCG MCG _empty_ 5 MCG stomach } Doxazosin Doxazosin No 1{table QD Doxazosin Mesylate 4 Mesylate 4 t} Mesylate 4 MG MG MG Losartan Losartan No 1{table BID Losartan Potassium Potassium t} Potassium 50 MG 50 MG 50 MG hydrALAZINE hydrALAZINE No 1{table TID hydrALAZIN HCl 50 MG HCl 50 MG t_with_ E HCl 50 food} MG Vascepa 1 Vascepa 1 No 2{capsu BID Vascepa 1 GM GM les_wit GM h_meals } Trelegy Trelegy No 1{puff} QD Trelegy Ellipta Ellipta Ellipta 200-62.5-25 200-62.5-25 200-62.5-2 MCG/INH MCG/INH 5 MCG/INH Dofetilide Dofetilide No 1{capsu BID Dofetilide 250 MCG 250 MCG le} 250 MCG Gabapentin Gabapentin No 1{capsu QD Gabapentin 300 MG 300 MG le} 300 MG VitEyes VitEyes No VitEyes Classic Classic Classic Advanced Advanced Advanced Aspirin 81 Aspirin 81 No 1{table QD Aspirin 81 81 MG 81 MG t} 81 MG Omeprazole Omeprazole No QD Omeprazole 20 MG 20 MG 20 MG cloNIDine cloNIDine No 1{table QD cloNIDine HCl 0.2 MG HCl 0.2 MG t} HCl 0.2 MG Vitamin D3 Vitamin D3 No 1{capsu QD Vitamin D3 50 MCG 50 MCG le} 50 MCG (1999) (1999) (1999) Atorvastati Atorvastati No 1{table QD Atorvastat n Calcium n Calcium t} in Calcium 80 MG 80 MG 80 MG Isosorbide Isosorbide No 1{table QD Isosorbide Mononitrate Mononitrate t_in_th Mononitrat ER 60 MG ER 60 MG e_morni e ER 60 MG ng} Probiotic Probiotic No Probiotic Eliquis 2.5 Eliquis 2.5 No 1{table BID Eliquis MG MG t} 2.5 MG Nasal Nasal No 1{spray QD Nasal Allergy 24 Allergy 24 _in_eac Allergy 24 Hour 55 Hour 55 h_nostr Hour 55 MCG/ACT MCG/ACT il} MCG/ACT Vitamin D3 Vitamin D3 No 1{capsu QD Vitamin D3 50 MCG 50 MCG le} 50 MCG (1999) (1999) (1999) Aspirin 81 Aspirin 81 No 1{table QD Aspirin 81 81 MG 81 MG t} 81 MG Atorvastati Atorvastati No 1{table QD Atorvastat n Calcium n Calcium t} in Calcium 80 MG 80 MG 80 MG VitEyes VitEyes No [facility] Classic Classic Classic Advanced Advanced Advanced Albuterol Albuterol No 1{puff_ 6xD Albuterol Sulfate HFA Sulfate HFA as_need Sulfate 108 (90 108 (90 ed} HFA 108 Base) Base) (90 Base) MCG/ACT MCG/ACT MCG/ACT cloNIDine cloNIDine No 1{table QD cloNIDine HCl 0.2 MG HCl 0.2 MG t} HCl 0.2 MG Losartan Losartan No 1{table BID Losartan Potassium Potassium t} Potassium 50 MG 50 MG 50 MG hydrALAZINE hydrALAZINE No 1{table TID hydrALAZIN HCl 50 MG HCl 50 MG t_with_ E HCl 50 food} MG Isosorbide Isosorbide No 1{table QD Isosorbide Mononitrate Mononitrate t_in_th Mononitrat ER 60 MG ER 60 MG e_morni e ER 60 MG ng} Omeprazole Omeprazole No QD Omeprazole 20 MG 20 MG 20 MG Doxazosin Doxazosin No 1{table QD Doxazosin Mesylate 4 Mesylate 4 t} Mesylate 4 MG MG MG Furosemide Furosemide No 1{table QD Furosemide 40 MG 40 MG t} 40 MG Probiotic Probiotic No Probiotic dilTIAZem dilTIAZem No dilTIAZem HCl 120 MG HCl 120 MG HCl 120 MG Trelegy Trelegy No 1{puff} QD Trelegy Ellipta Ellipta Ellipta 200-62.5-25 200-62.5-25 200-62.5-2 MCG/INH MCG/INH 5 MCG/INH Folic Acid Folic Acid No 1{table QD Folic Acid 1 MG 1 MG t} 1 MG Nasal Nasal No 1{spray QD Nasal Allergy 24 Allergy 24 _in_eac Allergy 24 Hour 55 Hour 55 h_nostr Hour 55 MCG/ACT MCG/ACT il} MCG/ACT Eliquis 2.5 Eliquis 2.5 No 1{table BID Eliquis MG MG t} 2.5 MG Gabapentin Gabapentin No 1{capsu QD Gabapentin 300 MG 300 MG le} 300 MG Levothyroxi Levothyroxi No QD Levothyrox ne Sodium ne Sodium ine Sodium 100 MCG 100 MCG 100 MCG Liothyronin Liothyronin No 1{table QD Liothyroni e Sodium 5 e Sodium 5 t_on_an ne Sodium MCG MCG _empty_ 5 MCG stomach } Vascepa 1 Vascepa 1 No 2{capsu BID Vascepa 1 GM GM les_wit GM h_meals } Immunizations Ordered Immunization Filled Immunization Date Status Commen ts Source Name Name [employer] 2020-11-28 Completed [facility] COVID-19 Vacc 30 14:02:00 MCG/0.3ML Intramuscular Suspension Vital Signs Vital Name Observation Time Observation Value Comments Source height 2022-10-27 62 [in_i] [facility] - 10:00:00 [facility] weight 2022-10-27 250 [lb_av] [facility] - 10:00:00 [facility] temperature 2022-10-27 97.2 [degF] [facility] - 10:00:00 [facility] bmi 2022-10-27 45.72 kg/m2 [facility] - 10:00:00 [facility] blood pressure 2022-10-27 146 mm[Hg] [facility] - systolic 10:00:00 [facility] blood pressure 2022-10-27 60 mm[Hg] [facility] - diastolic 10:00:00 [facility] height 2022-09-22 62 [in_i] [facility] - 13:45:00 [facility] weight 2022-09-22 249 [lb_av] [facility] - 13:45:00 [facility] temperature 2022-09-22 97.6 [degF] [facility] - 13:45:00 [facility] bmi 2022-09-22 45.54 kg/m2 [facility] - 13:45:00 [facility] oximetry 2022-09-22 98 % [facility] - 13:45:00 [facility] respiratory rate 2022-09-22 18 /min [facility] - 13:45:00 [facility] blood pressure 2022-09-22 146 mm[Hg] [facility] - systolic 13:45:00 [facility] blood pressure 2022-09-22 68 mm[Hg] [facility] - diastolic 13:45:00 [facility] height 2022-09-12 62 [in_i] [facility] - 14:15:00 [facility] weight 2022-09-12 249.8 [lb_av] [facility] - 14:15:00 [facility] temperature 2022-09-12 97.2 [degF] [facility] - 14:15:00 [facility] bmi 2022-09-12 45.68 kg/m2 [facility] - 14:15:00 [facility] oximetry 2022-09-12 97.2 % [facility] - 14:15:00 [facility] respiratory rate 2022-09-12 18 /min [facility] - 14:15:00 [facility] blood pressure 2022-09-12 161 mm[Hg] [facility] - systolic 14:15:00 [facility] blood pressure 2022-09-12 73 mm[Hg] [facility] - diastolic 14:15:00 [facility] height 2022-07-27 62 [in_i] [facility] - 15:30:00 [facility] weight 2022-07-27 246 [lb_av] [facility] - 15:30:00 [facility] temperature 2022-07-27 97.6 [degF] [facility] - 15:30:00 [facility] bmi 2022-07-27 44.99 kg/m2 [facility] - 15:30:00 [facility] oximetry 2022-07-27 93 % [facility] - 15:30:00 [facility] respiratory rate 2022-07-27 16 /min [facility] Spir it - 15:30:00 [facility] blood pressure 2022-07-27 160 mm[Hg] [facility] - systolic 15:30:00 [facility] blood pressure 2022-07-27 80 mm[Hg] [facility] - diastolic 15:30:00 [facility] Systolic blood 2020-07-17 146 mm[Hg] Location: E; [facility] pressure 11:51:00 Position: Standing Diastolic blood 2020-07-17 67 mm[Hg] Location: LLE; [facility] pressure 11:51:00 Position: Standing Heart Rate 2020-07-17 65 /min [facility] 11:51:00 BP Systolic 2019-07-23 152 mm[Hg] Location: LUE; [facility] 11:51:00 Position: Sitting BP Diastolic 2019-07-23 76 mm[Hg] Location: LUE; [facility] 11:51:00 Position: Sitting Height 2019-07-23 62 [in_us] [facility] 11:51:00 Weight 2019-07-23 248.5 [lb_av] [place] [...] 2014-11-26 97.5 [facility] 14:10:00 Heart Rate 2014-11-26 [facility] 14:10:00 Diastolic (mm Hg) 2014-11-26 [facility] 14:10:00 Respitory Rate 2014-11-26 [facility] 14:10:00 Systolic (mm Hg) 2014-11-26 [facility] 14:10:00 Respitory Rate 2014-11-26 [facility] 12:09:00 Systolic (mm Hg) 2014-11-26 [facility] 12:00:00 Diastolic (mm Hg) 2014-11-26 [facility] 12:00:00 Heart Rate 2014-11-24 He[facility] Kimblean n 15:45:00 Weight 2014-11-24 [facility]idy Kimblean n 06:47:00 BMI Calculated 2014-11-24 [facility] [...] Planned Date Details Comments Source Future Scheduled 2022-10-09 65+ PNEUMOCOCCAL Methodi [facility] Test 19:43:19 VACCINE (1 - PCV) [code = 65+ PNEUMOCOCCAL VACCINE (1 - PCV)] Future Scheduled 2022-10-09 SHINGLES VACCINES (1 [facility] Test 19:43:19 of 2) [code = SHINGLES VACCINES (1 of 2)] Future Scheduled 2022-10-09 COVID-19 VACCINE (2 - [facility] Test 19:43:19 Pfizer series) [code = COVID-19 VACCINE (2 - Pfizer series)] Future Scheduled 2022-10-09 INFLUENZA VACCINE [facility] Test 19:43:19 [code = INFLUENZA VACCINE] Future Scheduled 2022-06-24 HEPATITIS B VACCINES [facility] Test 21:22:46 (1 of 3 - 3-dose series) [code = HEPATITIS B VACCINES (1 of 3 - 3-dose series)] Future Scheduled 2022-06-24 65+ PNEUMOCOCCAL [facility] Test 21:22:46 VACCINE (1 - PCV) [code = 65+ PNEUMOCOCCAL VACCINE (1 - PCV)] Future Scheduled 2022-06-24 SHINGLES VACCINES (1 [facility] Test 21:22:46 of 2) [code = SHINGLES VACCINES (1 of 2)] Future Scheduled 2022-06-24 COVID-19 VACCINE (2 - [facility] Test 21:22:46 Pfizer series) [code = COVID-19 VACCINE (2 - Pfizer series)] Future Scheduled 2022-06-24 INFLUENZA VACCINE [facility] Test 21:22:46 [code = INFLUENZA VACCINE] Encounters Start End Encounter Admission Attending Care Care Encounter Source Date/Time Date/Time Type Type Clinicians Facility Department ID 2022-10-28 Outpatient [place], [facility] [id number] Common 09:04:03 Judd [id number] [facility] 2022-10-27 Outpatient [place], [facility] [id number] Common 10:44:02 Judd [id number] [facility] 2022-10-25 Outpatient [place], [facility] [id number] Common 14:54:04 Judd [id number] [facility] 2022-10-10 Outpatient [place]rola, [facility] [id number] Common 16:39:02 Judd [facility] 2022-08-01 Outpatient [place]rola, [facility] [id number] Common 08:32:02 Judd [id number] [facility] 2022-07-27 Outpatient [place], STLMLC ST[facility] [id number] Common 15:24:03 Judd [id number] [facility] - [facility] 2022-10-27 2022-10-27 OFFICE STLMLC ST[facility]MLC [id number] Co mmon 00:00:00 00:00:00 VISIT NEW Spir it PT LEVEL 3 - [facility] 2022-09-22 2022-09-22 OFFICE STLMLC STL[facility]C [id number] Co mmon 00:00:00 00:00:00 VISIT EST Spir it PT LEVEL 3 - [facility] 2022-09-12 2022-09-12 OFFICE STLMLC STLMLC [id number] Co mmon 00:00:00 00:00:00 VISIT [facility] ESTAB PT - [facility] LEVEL 4 [facility] 2022-08-17 2022-08-17 (TEL) STLMLC STLMLC [id number] Co mmon 00:00:00 00:00:00 Spirit [facility] 2022-08-11 2022-08-11 OFFICE STLMLC STLMLC [id number] Co mmon 00:00:00 00:00:00 VISIT Spirit ESTAB PT - [facility] LEVEL 1 [facility] 2022-07-31 2022-07-31 (TEL) STLMLC STLMLC [id number] Co mmon 00:00:00 00:00:00 Spirit - [facility] 2022-07-27 2022-07-27 OFFICE STLMLC STLMLC [id number] Co mmon 00:00:00 00:00:00 VISIT NEW Spir it PT LEVEL 4 - [facility] 2021-01-07 2021-01-10 [address]AMEZ [facility] [id number] [place] 00:00:00 00:00:[address] 2021-01-01 2021-01-01 Outpatient PAZ GALDAMEZ [facility] [id number] [place] 00:00:00 00:00:[address] 2020-07-17 2020-07-17 [facility] - [id number] [place] 11:30:00 11:30:00 t; 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 2017-06-16 2017-06-16 Outpatient Cardiolog Cardiology [id number] [facility] 12:43:00 12:43:00 y Consultants angel jimenez 2017-06-08 2017-06-08 Outpatient Cardiolog Cardiology [id number] [facility] 15:30:00 15:30:00 y Consultants angel jimenez 2017-02-03 2017-02-03 Outpatient Cardiolog Cardiology [id number] [facility] 11:44:00 11:44:00 y Consultants angel jimenez 2017-01-17 2017-01-17 Outpatient Cardiolog Cardiology [id number] [facility] 09:18:00 09:18:00 y Consultants angel jimenez 2016-12-20 2016-12-20 Unknown nullFlavo [place] [id number] -6 Memoria 15:57:00 15:57:00 r Cardiology 101-4fd3-a l Consultants 1ce-69e4b8 H ermann 0b31af 2016-12-20 2016-12-20 Unknown nullFlavo [place] [id number] -6 Memoria 15:57:00 15:57:00 r Cardiology 101-4fd3-a l Consultants 1ce-69e4b8 H ermann 0b31af 2016-12-20 2016-12-20 Outpatient [facility] [id number] Memoria 09:57:00 09:57:00 Cardiolog Cardiology l y Consultants Lamin Live 2016-09-09 2016-09-09 Other nullFlavo [place] [id number] -2 Memoria 21:06:00 21:06:00 r Cardiology w83-8ofa-w l Consultants 713-bb81b8 H ermann 5jk685 2016-09-09 2016-09-09 Other nullFlavo [place] [id number] -2 Memoria 21:06:00 21:06:00 r Cardiology 266-47ac-a l Consultants 856-5bfbbf H ermann c2748v 2016-09-09 2016-09-09 Other nullFlavo [place] t932v8h8 -2 [facility] 21:06:00 21:06:00 r Cardiology p65-6kwz-l l Consultants 713-bb81b8 H ermann 1rf404 2016-09-09 2016-09-09 Other nullFlavo [place] [id number] -2 Mem[facility] 21:06:00 21:06:00 r Cardiology 266-47ac-a l Consultants 856-5bfbbf ermann q2716a 2016-09-09 2016-09-09 [facility] [id number] Mem[facility] 15:06:00 15:06:00 Cardiolog Cardiology l y Consultants Lamin Live 2016-04-15 2016-04-15 Unknown nullFlavo [place] [id number] -1 [facility] 20:19:00 20:19:00 r Cardiology ea2-4165-9 l Consultants 8f6-ug0b35 H ermann 937ca3 2016-04-15 2016-04-15 Unknown nullFlavo [place] 2k3nh8i7 -8 Memoria 20:19:00 20:19:00 r Cardiology d5e-7935-9 l Consultants 6ce-fc0df4 H ermann 6a942j 2016-04-15 2016-04-15 Unknown nullFlavo [place] 1fgy8558 -1 [facility] 20:19:00 20:19:00 r Cardiology ea2-4165-9 l Consultants 1s2-tj3d64 H ermann 937ca3 2016-04-15 2016-04-15 Unknown nullFlavo [place] 3i3kd0t2 -8 [facility] 20:19:00 20:19:00 r Cardiology q7t-4611-5 l Consultants 6ce-fc0df4 H ermann 5f401e 2016-04-15 2016-04-15 Unknown nullFlavo [place] q1c9890z -4 [facility] 20:11:00 20:11:00 r Cardiology m9l-643p-z l Consultants 574-e41b2a H ermann 0394d2 2016-04-15 2016-04-15 Unknown nullFlavo Chávez 708710bz -d [facility] 20:11:00 20:11:00 r Cardiology 3ea-4ecc-a l Consultants e03-naf926 ermann 6b30d9 2016-04-15 2016-04-15 Unknown nullFlavo Chávez [id number] -4 [facility]oria 20:11:00 20:11:00 r Cardiology c0u-539h-u l Consultants 574-e41b2a ermann 0394d2 2016-04-15 2016-04-15 Unknown nullFlavo Chávez [id number] -d [facility] 20:11:00 20:11:00 r Cardiology 3ea-4ecc-a l Consultants s49-ckq574 ermann 6b30d9 2016-04-15 2016-04-15 Unknown nullFlavo Chávez [id number] -e [facility] 19:19:00 19:19:00 r Cardiology 319-44a5-b l Consultants db5-1p210x ermann 4b8d61 2016-04-15 2016-04-15 Unknown nullFlavo [place] 64hc7u80 -f [facility] 19:19:00 19:19:00 r Cardiology 000-4884-8 l Consultants 308-887013 ermann b66bd3 2016-04-15 2016-04-15 Unknown nullFlavo Chávez [id number] -e [facility] 19:19:00 19:19:00 r Cardiology 319-44a5-b l Consultants db5-6f014e ermann 4b8d61 2016-04-15 2016-04-15 Unknown nullFlavo Chávez 59gc1g42 -f [facility] 19:19:00 19:19:00 r Cardiology 000-4884-8 l Consultants 308-863284 ermann b66bd3 2016-04-15 2016-04-15 Unknown nullFlavo Chávez wtl1p97r -d [facility] 19:11:00 19:11:00 r Cardiology 465-41ef-9 l Consultants 4j3-9y560w ermann 684cbd 2016-04-15 2016-04-15 Unknown nullFlavo [place] 54zm7dm0 -e [facility] 19:11:00 19:11:00 r Cardiology y2p-2ud5-a l Consultants fb4-4a3c19 Michelle warren vtm658 2016-04-15 2016-04-15 Unknown nullFlavo Kyler suh8t52w -d [facility] 19:11:00 19:11:00 r Cardiology 465-41ef-9 l Consultants 3e0-2c717k Michelle warren 684cbd 2016-04-15 2016-04-15 Unknown nullFlavo Chávez 78nw8qk4 -e [facility] 19:11:00 19:11:00 r Cardiology v8g-8yp6-j l Consultants fb4-4a3c19 Michelle warren yfp371 2016-04-15 2016-04-15 Outpatient [facility] [id number] Mem[facility] 14:19:00 14:19:00 [facility] 2016-04-15 Outpatient [facility] [id number] [facility] 14:11:00 14:11:00 [facility] 2016-03-11 2016-03-11 Unknown nullFlavo Chávez j8c89zbx -e [facility] 19:22:00 19:22:00 r Cardiology 4ba-4806-9 l Consultants db1-232026 briana e818ec 2016-03-11 2016-03-11 Unknown nullFlavo Chávez 1x3q4958 -f [facility] 19:22:00 19:22:00 r Cardiology n5w-17iq-4 l Consultants 725-463b46 briana 49787m 2016-03-11 2016-03-11 Unknown nullFlavo Chávez c4y29jcu -e [facility] 19:22:00 19:22:00 r Cardiology 4ba-4806-9 l Consultants db1-855188 briana e818ec 2016-03-11 2016-03-11 Unknown nullFlavo Chávez 4k9y4978 -f [facility] 19:22:00 19:22:00 r Cardiology c0c-47yu-3 l Consultants 725-463b46 briana 83975m 2016-03-11 2016-03-11 Unknown nullFlavo Chávez g30qm313 -f [facility] 18:22:00 18:22:00 r Cardiology bfd-4198-9 l Consultants 60a-6add17 ermann f6b1d0 2016-03-11 2016-03-11 Unknown nullFlavo [place] 67m806t0 -8 [facility] 18:22:00 18:22:00 r Cardiology 38e-4869-9 l Consultants eaa-02c592 ermann b77d96 2016-03-11 2016-03-11 Unknown nullFlavo [place] 18xsdm5s -5 [facility] 18:22:00 18:22:00 r Cardiology 459-4782-a l Consultants 1da-ecabf6 ermann 9a49de 2016-03-11 2016-03-11 Unknown nullFlavo [place] z15wz909 -f [facility] 18:22:00 18:22:00 r Cardiology bfd-4198-9 l Consultants 60a-6add17 ermalexandra f6b1d0 2016-03-11 2016-03-11 Unknown nullFlavo [place] 72v033i2 -8 Memoria 18:22:00 18:22:00 r Cardiology 38e-4869-9 l Consultants eaa-76s174 ermann b77d96 2016-03-11 2016-03-11 Unknown nullFlavo [place] 37mxpw8q -5 [facility] 18:22:00 18:22:00 r Cardiology 459-4782-a l Consultants 1da-ecabf6 ermann 9a49de 2016-03-11 2016-03-11 Outpatient [facility] [id number] Memoria 13:22:00 13:22:00 Cardiolog Cardiology l y Consultants Lamin Live 2016-01-29 2016-01-29 Unknown nullFlavo [place] 0654t9y9 -7 Memoria 20:05:00 20:05:00 r Cardiology b18-0418-y l Consultants bb3-ad08ef briana 21081w 2016-01-29 2016-01-29 Unknown nullFlavo [place] tp2219g1 -c [facility] 20:05:00 20:05:00 r Cardiology m31-3z05-i l Consultants 4k9-7bp165 briana 2964cd 2016-01-29 2016-01-29 Unknown nullFlavo [place] 3061d5n7 -7 [facility]oria 20:05:00 20:05:00 r Cardiology m34-9391-t l Consultants bb3-ad08ef ermann 49625k 2016-01-29 2016-01-29 Unknown nullFlavo Kyler [id number] -c [facility] 20:05:00 20:05:00 r Cardiology y05-1b56-e l Consultants 8b5-3ka888 H ermann 2964cd 2016-01-29 2016-01-29 Unknown nullFlavo Kyler r96fe06d -5 [facility] 19:05:00 19:05:00 r Cardiology bc1-404e-b l Consultants 333-858d68 H ermann 749f4e 2016-01-29 2016-01-29 Unknown nullFlavo Kyler bgi4512g -0 [facility] 19:05:00 19:05:00 r Cardiology cec-4529-8 l Consultants 5fa-a10555 H ermann 840d65 2016-01-29 2016-01-29 Unknown nullFlavo Chávez [id number] -b [facility] 19:05:00 19:05:00 r Cardiology n18-2s4m-a l Consultants 18c-1d80e6 H ermann 1g6158 2016-01-29 2016-01-29 Unknown nullFlavo Chávez 1353afad -2 [facility]oria 19:05:00 19:05:00 r Cardiology 193-459d-a l Consultants y45-64l0mw H ermann 52afe9 2016-01-29 2016-01-29 Unknown nullFlavo Kyler s75lo58a -5 [facility] 19:05:00 19:05:00 r Cardiology bc1-404e-b l Consultants 333-858d68 H ermann 749f4e 2016-01-29 2016-01-29 Unknown nullFlavo Chávez sto2861a -0 [facility]oria 19:05:00 19:05:00 r Cardiology cec-4529-8 l Consultants 5fa-z87317 H ermann 840d65 2016-01-29 2016-01-29 Unknown nullFlavo Chávez [id number] -b [facility] 19:05:00 19:05:00 r Cardiology l37-7s6y-w l Consultants 18c-1d80e6 H briana 8e6557 2016-01-29 2016-01-29 Unknown nullFlavo [place] 1353afad -2 [facility] 19:05:00 19:05:00 r Cardiology 193-459d-a l Consultants s89-13g7lh H briana 52afe9 2016-01-29 2016-01-29 Outpatient [facility] [id number] Memoria 14:05:00 14:05:00 Cardiolog Cardiology l y Consultants Lamin Live 2015-08-12 2015-08-12 Unknown nullFlavo [place] vz4y36b3 -9 [facility] 22:30:00 22:30:00 r Cardiology 4i2-0v08-x l Consultants f9h-o93112 H briana aea06f 2015-08-12 2015-08-12 Unknown nullFlavo [place] [id number] -2 [facility] 22:30:00 22:30:00 r Cardiology 574-4822-8 l Consultants g20-w2u8yt H briana 9b28e5 2015-08-12 2015-08-12 Unknown nullFlavo [place] zc9y64e9 -9 [facility] 22:30:00 22:30:00 r Cardiology 6x7-6e26-e l Consultants z3w-o62635 H briana aea06f 2015-08-12 2015-08-12 Unknown nullFlavo [place] [id number] -2 [facility] 22:30:00 22:30:00 r Cardiology 574-4822-8 l Consultants u60-g2k9xx H briana 9b28e5 2015-08-12 2015-08-12 Unknown nullFlavo [place] xm9m8288 -1 [facility] 21:30:00 21:30:00 r Cardiology eb4-4667-b l Consultants 94d-edaa6e H briana aeca55 2015-08-12 2015-08-12 Unknown nullFlavo [place] 0x0p6s00 -d [facility] 21:30:00 21:30:00 r Cardiology s1t-4e08-6 l Consultants u3e-t5656v H briana 0c0af9 2015-08-12 2015-08-12 Unknown nullFlavo [place] [id number] -8 [facility] 21:30:00 21:30:00 r Cardiology w24-416l-7 l Consultants b78-s130r0 H ermann mm399j 2015-08-12 2015-08-12 Unknown nullFlavo Kyler w099pv1z -2 [facility] 21:30:00 21:30:00 r Cardiology fa0-4be5-a l Consultants w59-gsrbo1 H ermann 4b3cb8 2015-08-12 2015-08-12 Unknown nullFlavo Kyler rk0l5621 -1 [facility] 21:30:00 21:30:00 r Cardiology eb4-4667-b l Consultants 94d-edaa6e H ermann aeca55 2015-08-12 2015-08-12 Unknown nullFlavo Kyler 8q9m5f37 -d [facility] 21:30:00 21:30:00 r Cardiology d4t-6r09-9 l Consultants t4z-s0382j H ermann 0c0af9 2015-08-12 2015-08-12 Unknown nullFlavo Chávez [id number] -8 [facility] 21:30:00 21:30:00 r Cardiology m97-890e-3 l Consultants o70-h955w5 H ermann mn945q 2015-08-12 2015-08-12 Unknown nullFlavo Kyler r184ev1r -2 [facility] 21:30:00 21:30:00 r Cardiology fa0-4be5-a l Consultants y87- H ermann 4b3cb8 2015-03-23 2015-03-23 Unknown nullFlavo Kyler [id number] -3 [facility]oria 15:14:00 15:14:00 r Cardiology de5-4cd2-8 l Consultants 120-85eb7f H ermann 3a58f7 2015-03-23 2015-03-23 Unknown nullFlavo Kyler v8926ohz -4 [facility]oria 15:14:00 15:14:00 r Cardiology q5f-000z-e l Consultants o74-048tyy H ermann 20j799 2015-03-23 2015-03-23 Unknown nullFlavo Kyler 6rm06108 -3 [facility] 15:14:00 15:14:00 r Cardiology de5-4cd2-8 l Consultants 120-85eb7f H ermann 3a58f7 2015-03-23 2015-03-23 Unknown nullFlavo Kyler a0017ccy -4 [facility] 15:14:00 15:14:00 r Cardiology t9j-149j-c l Consultants l40-124tld H ermalexandra 50p047 2015-03-23 2015-03-23 Unknown nullFlavo Kyler 1s8ax17f -2 [facility]oria 14:14:00 14:14:00 r Cardiology 1fa-4ddb-8 l Consultants 3g6-6f3253 H ermann 46r709 2015-03-23 2015-03-23 Unknown nullFlavo Kyler 6cx7vp23 -b [facility] 14:14:00 14:14:00 r Cardiology 1i5-937r-j l Consultants 4fb-039c46 H ermann 903a76 2015-03-23 2015-03-23 Unknown nullFlavo Kyler t07b639e -1 [facility] 14:14:00 14:14:00 r Cardiology 921-4048-9 l Consultants bc0-68436f ermann 294e18 2015-03-23 2015-03-23 Unknown nullFlavo Kyler e5h7xdsf -2 [facility] 14:14:00 14:14:00 r Cardiology 9r1-6796-b l Consultants 0d7-v83997 H briana oi3931 2015-03-23 2015-03-23 Unknown nullFlavo Kyler 0e3mp00x -2 [facility] 14:14:00 14:14:00 r Cardiology 1fa-4ddb-8 l Consultants 8w2-1o1606 H ermann 35y047 2015-03-23 2015-03-23 Unknown nullFlavo Kyler 5bz3rf95 -b [facility] 14:14:00 14:14:00 r Cardiology 8m9-092t-s l Consultants 4fb-039c46 H ermann 903a76 2015-03-23 2015-03-23 Unknown nullFlavo Kyler t77p905s -1 [facility] 14:14:00 14:14:00 r Cardiology 921-4048-9 l Consultants bc0-52788o H ermann 294e18 2015-03-23 2015-03-23 Unknown nullFlavo Kyler f3h4ncvy -2 [facility] 14:14:00 14:14:00 r Cardiology 0e1-5846-m l Consultants 1c0-n86549 H ermann ob6732 2014-12-19 2014-12-19 Unknown nullFlavo Kyler k33n2sf9 -1 [facility] 22:13:00 22:13:00 r Cardiology q39-3nm5-l l Consultants 6ac-a45f2b ermann 48f05b 2014-12-19 2014-12-19 Unknown nullFlavo Kyler pg1p4f51 -d [facility] 22:13:00 22:13:00 r Cardiology 151-4702-8 l Consultants c5i-7692et ermann 8oy185 2014-12-19 2014-12-19 Unknown nullFlavo Kyler e62z9rf9 -1 [facility] 22:13:00 22:13:00 r Cardiology j42-6ux6-v l Consultants 6ac-a45f2b ermann 48f05b 2014-12-19 2014-12-19 Unknown nullFlavo Chávez dq4b7t17 -d [facility] 22:13:00 22:13:00 r Cardiology 151-4702-8 l Consultants v9d-2748jj ermann 8ij405 2014-12-19 2014-12-19 PT/INR 3.0 nullFlavo [place] 70b0c 239-5 Memoria 21:19:00 21:19:00 r Cardiology 8e3-7168-3 l Consultants v81-h0dns9 ermalexandra 14dab3 2014-12-19 2014-12-19 PT/INR 3.0 nullFlavo [place] a635e fad-9 Memoria 21:19:00 21:19:00 r Cardiology z1q-8zmi-2 l Consultants 060-8b5dc3 ermalexandra 391827 5619-02-27 2014-12-19 PT/INR 3.0 nullFlavo [place] 70b0c 239-5 [facility]oria 21:19:00 21:19:00 r Cardiology 6u4-7335-0 l Consultants k70-d4dll2 ermann 14dab3 2014-12-19 2014-12-19 PT/INR 3.0 nullFlavo [place] a635e fad-9 [facility] 21:19:00 21:19:00 r Cardiology z2n-6qen-3 l Consultants 060-8b5dc3 H ermann 920995 1337-02-27 2014-12-19 Unknown nullFlavo Kyler r19726xd -2 [facility] 21:13:00 21:13:00 r Cardiology 17f-4b2e-9 l Consultants 622-25d8a7 ermann 61906e 2014-12-19 2014-12-19 Unknown nullFlavo Kyler 668h8z56 -d [facility] 21:13:00 21:13:00 r Cardiology 63b-460e-b l Consultants s86-5cn377 ermann 04852d 2014-12-19 2014-12-19 Unknown nullFlavo Kyler 621532q4 -d [facility] 21:13:00 21:13:00 r Cardiology 487-404a-a l Consultants 74b-bf18f4 ermann 724469 6730-02-27 2014-12-19 Unknown nullFlavo Kyler k5o998nq -e [facility] 21:13:00 21:13:00 r Cardiology 91a-4981-8 l Consultants 4ad-01833y ermann 5446ae 2014-12-19 2014-12-19 Unknown nullFlavo Kyler r9s409gg -e [facility] 21:13:00 21:13:00 r Cardiology 91a-4981-8 l Consultants 4ad-59922j ermann 5446ae 2014-12-19 2014-12-19 Unknown nullFlavo Kyler a00042vd -2 [facility] 21:13:00 21:13:00 r Cardiology 17f-4b2e-9 l Consultants 622-25d8a7 ermann 18326w 2014-12-19 2014-12-19 Unknown nullFlavo Kyler 154k2u26 -d [facility] 21:13:00 21:13:00 r Cardiology 63b-460e-b l Consultants f71-7ac940 ermann 71792m 2014-12-19 2014-12-19 Unknown nullFlavo Chávez 474113y1 -d [facility] 21:13:00 21:13:00 r Cardiology 487-404a-a l Consultants 74b-bf18f4 ermann 621665 1605-02-27 2014-12-19 PT/INR 3.0 nullFlavo Chávez a38af df8-2 [facility] 20:19:00 20:19:00 r Cardiology 515-4bf4-8 l Consultants 3x2-ll0972 H ermann b0bc8a 2014-12-19 2014-12-19 PT/INR 3.0 nullFlavo [place] f64b6 1fb-d [facility] 20:19:00 20:19:00 r Cardiology 63f-4a38-9 l Consultants 1d1-zu0141 H ermann 50a6a7 2014-12-19 2014-12-19 PT/INR 3.0 nullFlavo [place] ff7ae d92-d [facility] 20:19:00 20:19:00 r Cardiology 97d-4c76-b l Consultants 560-53eb22 H ermann a71ce0 2014-12-19 2014-12-19 PT/INR 3.0 nullFlavo [place] dd7c4 4ea-9 [facility] 20:19:00 20:19:00 r Cardiology 6g6-319r-i l Consultants 9p9-nvpm5b H ermann 0aac10 2014-12-19 2014-12-19 PT/INR 3.0 nullFlavo [place] a38af df8-2 [facility] 20:19:00 20:19:00 r Cardiology 515-4bf4-8 l Consultants 2i9-uk4034 H ermann b0bc8a 2014-12-19 2014-12-19 PT/INR 3.0 nullFlavo [place] f64b6 1fb-d [facility] 20:19:00 20:19:00 r Cardiology 63f-4a38-9 l Consultants 0w0-qk4264 ermann 50a6a7 2014-12-19 2014-12-19 PT/INR 3.0 nullFlavo Walton ff7ae d92-d [facility] 20:19:00 20:19:00 r Cardiology [id number]-4c76-b l Consultants [id number] H ermann [id number] 2014-12-19 2014-12-19 PT/INR 3.0 nullFlavo Walton dd7c4 4ea-9 [facility] 20:19:00 20:19:00 r Cardiology [id number]-[id number] l Consultants [id number] H ermann [id number] 2014-11-24 2014-11-26 Inpatient nullFlavo [facility] [id number] Mem[facility] 04:23:00 22:46:00 [facility] [place] [place] 2014-11-24 2014-11-26 Inpatient Vicenta [facility] [id number] Memoria 04:23:00 22:46:[address] 2014-11-23 2014-11-26 Outpatient Kel, [id number] 22:23:00 16:46:00 Serina [id number] Michelle [id number] 01 Results Test Description Test Time Test Comments Results Result Comments Source SARS-CoV-2 (COVID-19) RNA [Presence] in Respiratory sp ecimen by 2021-01-01 18:46:21 NEHEMIAS with probe detection Test Item Value Reference Range Interpretation Comme nts SARS-CoV-2 (COVID-19) RNA [Presence] in Respiratory Not detected No t-Detected specimen by NEHEMIAS with probe detection (test code = 94768-9) [facility]2015-02-04 10:23:00 Test Item Value Reference Range Interpretation Comments Magnesium Lvl (test code = Magnesium 2.1 1.8-2.4 Lvl) [id number] 10:23:00 Test Item Value Reference Range Interpretation Comments Phosphorus (test code = Phosphorus) 2.8 2.5-4.5 [facility] [id number] 10:23:00 Test Item Value Reference Range Interpretation Comments eGFR (test code = eGFR) 40 [facility] [id number] 10:23:00 Test Item Value Reference Range Interpretation Comments Glucose Lvl (test code = Glucose Lvl) 80 70-99 [facility] [id number] 10:23:00 Test Item Value Reference Range Interpretation Comments BUN (test code = BUN) 18 7-22 [facility]2015-02-04 10:23:00 Test Item Value Reference Range Interpretation Comments Creatinine Lvl (test code = Creatinine 1.3 0.5-1.4 Lvl) [facility] [id number] 10:23:00 Test Item Value Reference Range Interpretation Comments Sodium Lvl (test code = Sodium Lvl) 136 135-145 [facility] [id number] 10:23:00 Test Item Value Reference Range Interpretation Comments Chloride Lvl (test code = Chloride Lvl) 102 95-109 [facility]2015-02-04 10:23:00 Test Item Value Reference Range Interpretation Comments Potassium Lvl (test code = Potassium 3.5 3.5-5.1 Lvl) [facility]2015-02-04 10:23:00 Test Item Value Reference Range Interpretation Comments Calcium Lvl (test code = Calcium Lvl) 9.0 8.5-10.5 [facility]2015-02-04 10:23:00 Test Item Value Reference Range Interpretation Comments CO2 (test code = CO2) 25 24-32 [facility]2015-02-04 10:23:00 Test Item Value Reference Range Interpretation Comments AGAP (test code = AGAP) 12.5 10[facility]20.0 [id number] 10:23:00 Test Item Value Reference Range Interpretation Comments RDW (test code = RDW) 13.1 11.5-14.5 [facility]UOPNCKOS7289-33-34 10:23:00 Test Item Value Reference Range Interpretation Comments MCH (test code = MCH) 32.4 pg 27.0-31.0 [facility]px[facility]amDEIBOTYCLO4843-99-52 10:23:00 Test Item Value Reference Range Interpretation Comments MCV (test code = MCV) 93.5 80.0-98.0 [facility] HospitalHpuhxikYCLJPMSSFL6038-48-91 10:23:00 Test Item Value Reference Range Interpretation Comments MCHC (test code = MCHC) 34.6 32.0-36.0 [facility] HospitalMjtvtysMNMXYHTLZP5359-52-45 10:23:00 Test Item Value Reference Range Interpretation Comments Hct (test code = Hct) 33.6 36.0-48.0 [facility] HospitalSralrauRKMXPUOZKY5013-73-12 10:23:00 Test Item Value Reference Range Interpretation Comments Hgb (test code = Hgb) 11.6 12.0-16.0 [facility] HospitalDseiyrpVXIVGZGPGE6489-74-44 10:23:00 Test Item Value Reference Range Interpretation Comments RBC (test code = RBC) 3.60 4.20-5.40 [facility] HospitalYxlzdatUOOSYVOJPS9244-88-14 10:23:00 Test Item Value Reference Range Interpretation Comments WBC (test code = WBC) 4.6 3.7-10.4 [facility] HospitalBuzbecrZXFTDRVSNJ1998-17-61 10:23:00 Test Item Value Reference Range Interpretation Comments MPV (test code = MPV) 8.3 7.4-10.4 [facility] HospitalVqpfvxfIKOYFGHYFB4187-37-74 10:23:00 Test Item Value Reference Range Interpretation Comments Platelet (test code = Platelet) 149 133-450 [facility] HospitalNuufgrnRQKONEPJKZ2859-58-55 10:23:00 Test Item Value Reference Range Interpretation Comments Segs (test code = Segs) 62.3 45.0-75.0 [facility] HospitalKnhfgimSIXSHXVSFN3057-19-52 10:23:00 Test Item Value Reference Range Interpretation Comments Lymphocytes # (test code = Lymphocytes 1.2 1.0-5.5 #) [facility] HospitalLrcvauuUTIXKIXXDP7864-56-35 10:23:00 Test Item Value Reference Range Interpretation Comments Monocytes # (test code 0.4 See_Comment [Aut omated message] The = Monocytes #) system which generated this result tra nsmitted reference range : <=0.8. The reference r criss was not used to int erpret this result as normal/abnormal . [facility] HospitalUurehxmXXDMWCQPBM7830-43-13 10:23:00 Test Item Value Reference Range Interpretation Comments Eosinophils (test code = 3.0 See_Comment [A utomated message] The Eosinophils) system which ge nerated this result tra nsmitted reference range : <=4.0. The reference r criss was not used to int erpret this result as normal/abnormal . [facility] HospitalLjruwflHUNQXNPZIC9487-43-69 10:23:00 Test Item Value Reference Range Interpretation Comments Lymphocytes (test code = Lymphocytes) 26.2 20.0-40.0 [facility] HospitalOqlbnzdOHAPAKPFYQ4857-32-81 10:23:00 Test Item Value Reference Range Interpretation Comments Segs-Bands # (test code = Segs-Bands #) 2.9 1.5-8.1 [facility] HospitalDugpmuvODECJLEPIS8811-60-62 10:23:00 Test Item Value Reference Range Interpretation Comments Basophils (test code = 0.5 See_Comment [Aut omated message] The Basophils) system which ge nerated this result tra nsmitted reference range : <=1.0. The reference r criss was not used to int erpret this result as normal/abnormal . [facility] HospitalMkmkgqhLOHUZYPPZH6998-64-22 10:23:00 Test Item Value Reference Range Interpretation Comments Monocytes (test code = Monocytes) 8.0 2.0-12.0 [facility] HospitalGuokcjhNMLIPTDBSK6008-53-67 10:23:00 Test Item Value Reference Range Interpretation Comments Eosinophils # (test code 0.1 See_Comment [A utomated message] The = Eosinophils #) system whic h generated this result tra nsmitted reference range : <=0.5. The reference r criss was not used to int erpret this result as normal/abnormal . [facility]2015-02-04 10:23:00 Test Item Value Reference Range Interpretation Comments Magnesium Lvl (test code = Magnesium 2.1 1.8-2.4 Lvl) [facility]2015-02-04 10:23:00 Test Item Value Reference Range Interpretation Comments Phosphorus (test code = Phosphorus) 2.8 2.5-4.5 [facility]2015-02-04 10:23:00 Test Item Value Reference Range Interpretation Comments eGFR (test code = eGFR) 40 [facility]2015-02-04 10:23:00 Test Item Value Reference Range Interpretation Comments Glucose Lvl (test code = Glucose Lvl) 80 70-99 [facility]2015-02-04 10:23:00 Test Item Value Reference Range Interpretation Comments BUN (test code = BUN) 18 7-22 [facility]2015-02-04 10:23:00 Test Item Value Reference Range Interpretation Comments Creatinine Lvl (test code = Creatinine 1.3 0.5-1.4 Lvl) [facility]2015-02-04 10:23:00 Test Item Value Reference Range Interpretation Comments Sodium Lvl (test code = Sodium Lvl) 136 135-145 [facility]2015-02-04 10:23:00 Test Item Value Reference Range Interpretation Comments Chloride Lvl (test code = Chloride Lvl) 102 95-109 [facility]2015-02-04 10:23:00 Test Item Value Reference Range Interpretation Comments Potassium Lvl (test code = Potassium 3.5 3.5-5.1 Lvl) [facility]2015-02-04 10:23:00 Test Item Value Reference Range Interpretation Comments Calcium Lvl (test code = Calcium Lvl) 9.0 8.5-10.5 [facility]2015-02-04 10:23:00 Test Item Value Reference Range Interpretation Comments CO2 (test code = CO2) 25 24-32 [facility]2015-02-04 10:23:00 Test Item Value Reference Range Interpretation Comments AGAP (test code = AGAP) 12.5 10.0-20.0 [facility] HospitalVwsrfnrGMNWDPZGNP4876-37-80 10:23:00 Test Item Value Reference Range Interpretation Comments RDW (test code = RDW) 13.1 11.5-14.5 [facility] HospitalUrdehbqBCYRVWHUWU5631-57-05 10:23:00 Test Item Value Reference Range Interpretation Comments MCH (test code = MCH) 32.4 pg 27.0-31.0 [facility] HospitalCsblkxuRRBBWBRUFC0247-08-10 10:23:00 Test Item Value Reference Range Interpretation Comments MCV (test code = MCV) 93.5 80.0-98.0 [facility] HospitalAvhcwgjWTBGFNPJUP8681-79-45 10:23:00 Test Item Value Reference Range Interpretation Comments MCHC (test code = MCHC) 34.6 32.0-36.0 [facility] HospitalRuobeekDNDITAIEPU1938-40-60 10:23:00 Test Item Value Reference Range Interpretation Comments Hct (test code = Hct) 33.6 36.0-48.0 [facility] HospitalHvshakeRDLPDESCKX7243-03-60 10:23:00 Test Item Value Reference Range Interpretation Comments Hgb (test code = Hgb) 11.6 12.0-16.0 [facility] HospitalFngxasqAJTUZILAIB3985-76-98 10:23:00 Test Item Value Reference Range Interpretation Comments RBC (test code = RBC) 3.60 4.20-5.40 [facility] HospitalUhetpiyMAUBTKGLJF8067-84-93 10:23:00 Test Item Value Reference Range Interpretation Comments WBC (test code = WBC) 4.6 3.7-10.4 [facility] HospitalAonvfohSZNOHBFFVQ6323-28-06 10:23:00 Test Item Value Reference Range Interpretation Comments MPV (test code = MPV) 8.3 7.4-10.4 [facility] HospitalYbtuaelZVABWPRNLX3482-84-14 10:23:00 Test Item Value Reference Range Interpretation Comments Platelet (test code = Platelet) 149 133-450 [facility] HospitalEmgweqkDTCMDJIPRQ7632-66-38 10:23:00 Test Item Value Reference Range Interpretation Comments Segs (test code = Segs) 62.3 45.0-75.0 [facility] HospitalLizoikdJAVDERFRJC7641-83-83 10:23:00 Test Item Value Reference Range Interpretation Comments Lymphocytes # (test code = Lymphocytes 1.2 1.0-5.5 #) [facility] HospitalGbaufabGAWBMYYLFW8994-05-27 10:23:00 Test Item Value Reference Range Interpretation Comments Monocytes # (test code 0.4 See_Comment [Aut omated message] The = Monocytes #) system which generated this result tra nsmitted reference range : <=0.8. The reference r criss was not used to int erpret this result as normal/abnormal . [facility] HospitalHuwiwnnFYBHASKSBB5857-97-08 10:23:00 Test Item Value Reference Range Interpretation Comments Eosinophils (test code = 3.0 See_Comment [A utomated message] The Eosinophils) system which ge nerated this result tra nsmitted reference range : <=4.0. The reference r criss was not used to int erpret this result as normal/abnormal . [facility] HospitalZcnuvqpVQFGZWPZSV2789-91-79 10:23:00 Test Item Value Reference Range Interpretation Comments Lymphocytes (test code = Lymphocytes) 26.2 20.0-40.0 [facility] HospitalMleteccBFWFIACAGC0800-19-91 10:23:00 Test Item Value Reference Range Interpretation Comments Segs-Bands # (test code = Segs-Bands #) 2.9 1.5-8.1 [facility] HospitalLufhguiNPOCYERNJW1944-53-94 10:23:00 Test Item Value Reference Range Interpretation Comments Basophils (test code = 0.5 See_Comment [Aut omated message] The Basophils) system which ge nerated this result tra nsmitted reference range : <=1.0. The reference r criss was not used to int erpret this result as normal/abnormal . [facility] HospitalUkgbkylXZUFJMNJMA1927-33-87 10:23:00 Test Item Value Reference Range Interpretation Comments Monocytes (test code = Monocytes) 8.0 2.0-12.0 [facility] HospitalXvrjpjhSQXLKGABBW6741-42-51 10:23:00 Test Item Value Reference Range Interpretation Comments Eosinophils # (test code 0.1 See_Comment [A utomated message] The = Eosinophils #) system whic h generated this result tra nsmitted reference range : <=0.5. The reference r criss was not used to int erpret this result as normal/abnormal . [facility]2015-02-03 07:04:00 Test Item Value Reference Range Interpretation Comments Phosphorus (test code = Phosphorus) 3.1 2.5-4.5 [facility]2015-02-03 07:04:00 Test Item Value Reference Range Interpretation Comments eGFR (test code = eGFR) 34 [facility]2015-02-03 07:04:00 Test Item Value Reference Range Interpretation Comments CO2 (test code = CO2) 25 24-32 [facility]2015-02-03 07:04:00 Test Item Value Reference Range Interpretation Comments AGAP (test code = AGAP) 12.8 10.0-20.0 [facility]2015-02-03 07:04:00 Test Item Value Reference Range Interpretation Comments Calcium Lvl (test code = Calcium Lvl) 8.7 8.5-10.5 [facility]2015-02-03 07:04:00 Test Item Value Reference Range Interpretation Comments Chloride Lvl (test code = Chloride Lvl) 104 95-109 [facility]2015-02-03 07:04:00 Test Item Value Reference Range Interpretation Comments BUN (test code = BUN) 23 7-22 [facility]2015-02-03 07:04:00 Test Item Value Reference Range Interpretation Comments Sodium Lvl (test code = Sodium Lvl) 138 135-145 [facility]2015-02-03 07:04:00 Test Item Value Reference Range Interpretation Comments Glucose Lvl (test code = Glucose Lvl) 82 70-99 [facility]2015-02-03 07:04:00 Test Item Value Reference Range Interpretation Comments Creatinine Lvl (test code = Creatinine 1.5 0.5-1.4 Lvl) [facility]2015-02-03 07:04:00 Test Item Value Reference Range Interpretation Comments Potassium Lvl (test code = Potassium 3.8 3.5-5.1 Lvl) [facility]2015-02-03 07:04:00 Test Item Value Reference Range Interpretation Comments Magnesium Lvl (test code = Magnesium 2.7 1.8-2.4 Lvl) [facility] HospitalQerkzfrJMTCDLMSIQ2739-98-25 07:04:00 Test Item Value Reference Range Interpretation Comments Segs (test code = Segs) 63.1 45.0-75.0 [facility] HospitalQrzlyovFNEBWWKTMB6352-87-28 07:04:00 Test Item Value Reference Range Interpretation Comments Lymphocytes (test code = Lymphocytes) 27.1 20.0-40.0 [facility] HospitalRxlcfocAYKYMSEFQL2333-61-18 07:04:00 Test Item Value Reference Range Interpretation Comments Monocytes (test code = Monocytes) 7.2 2.0-12.0 [facility] HospitalGizitccOHBIZUKTVP9740-21-71 07:04:00 Test Item Value Reference Range Interpretation Comments Eosinophils # (test code 0.1 See_Comment [A utomated message] The = Eosinophils #) system whic h generated this result tra nsmitted reference range : <=0.5. The reference r criss was not used to int erpret this result as normal/abnormal . [facility] HospitalIbxodstIZBCGGEJLU2621-36-66 07:04:00 Test Item Value Reference Range Interpretation Comments Eosinophils (test code = 2.2 See_Comment [A utomated message] The Eosinophils) system which ge nerated this result tra nsmitted reference range : <=4.0. The reference r criss was not used to int erpret this result as normal/abnormal . [facility] HospitalEnyejxdKXPRZFZPRM3683-81-82 07:04:00 Test Item Value Reference Range Interpretation Comments Basophils (test code = 0.4 See_Comment [Aut omated message] The Basophils) system which ge nerated this result tra nsmitted reference range : <=1.0. The reference r criss was not used to int erpret this result as normal/abnormal . [facility] HospitalImdoyjyDZMJOSIVJH9682-71-76 07:04:00 Test Item Value Reference Range Interpretation Comments Segs-Bands # (test code = Segs-Bands #) 3.1 1.5-8.1 [facility] HospitalIndfmeeMJOVMHMVHH1770-82-83 07:04:00 Test Item Value Reference Range Interpretation Comments Monocytes # (test code 0.3 See_Comment [Aut omated message] The = Monocytes #) system which generated this result tra nsmitted reference range : <=0.8. The reference r criss was not used to int erpret this result as normal/abnormal . [facility] HospitalPpfavwcSKZKPKPCYR5156-26-49 07:04:00 Test Item Value Reference Range Interpretation Comments Lymphocytes # (test code = Lymphocytes 1.3 1.0-5.5 #) [facility] HospitalDnzobzzBNYCIEZJXK3258-14-79 07:04:00 Test Item Value Reference Range Interpretation Comments MPV (test code = MPV) 8.5 7.4-10.4 [facility] HospitalIiqljytBCIUJTMWEZ9090-58-58 07:04:00 Test Item Value Reference Range Interpretation Comments MCH (test code = MCH) 31.6 pg 27.0-31.0 [facility] HospitalZfklunlTXRTXTKLOU6872-17-67 07:04:00 Test Item Value Reference Range Interpretation Comments MCV (test code = MCV) 93.4 80.0-98.0 [place] 398915-02-03 07:04:00 Test Item Value Reference Range Interpretation Comments Hct (test code = Hct) 33.2 36.0-48.0 [facility] HospitalRbntxqvNUAFFQJBSZ3894-13-84 07:04:00 Test Item Value Reference Range Interpretation Comments Platelet (test code = Platelet) 151 133-450 [facility] HospitalWwgfvxuCHEXTNWXYE7899-06-43 07:04:00 Test Item Value Reference Range Interpretation Comments RDW (test code = RDW) 13.1 11.5-14.5 [facility] HospitalUghrrvmIETMUCFYVG5579-11-11 07:04:00 Test Item Value Reference Range Interpretation Comments MCHC (test code = MCHC) 33.8 32.0-36.0 [facility] HospitalCqjmuliFTNVLKOLHX1053-65-08 07:04:00 Test Item Value Reference Range Interpretation Comments Hgb (test code = Hgb) 11.2 12.0-16.0 [facility] HospitalKtihxrmDYGMSAGGQP6772-12-62 07:04:00 Test Item Value Reference Range Interpretation Comments RBC (test code = RBC) 3.56 4.20-5.40 [facility] HospitalDewxofkUUGEWHDKIK1861-15-99 07:04:00 Test Item Value Reference Range Interpretation Comments WBC (test code = WBC) 4.9 3.7-10.4 [facility] HospitalMdqyjmcDSVSBIQFSI9643-59-12 07:04:00 Test Item Value Reference Range Interpretation Comments INR (test code = INR) 1.14 0.85-1.17 [facility] HospitalXvrrljwXXJRDAHOXS6204-89-59 07:04:00 Test Item Value Reference Range Interpretation Comments PTT (test code = PTT) 28.5 s 22.9-35.8 [facility] HospitalFogpraiGZBWEAMMQK1083-91-02 07:04:00 Test Item Value Reference Range Interpretation Comments PT (test code = PT) 14.7 s 12.0-14.7 [facility] E[facility]QQI1908[facility]96-65 07:04:00 Test Item Value Reference Range Interpretation Comments TSH (test code = TSH) 3.190 0.360-3.740 [facility]2015-02-03 07:04:00 Test Item Value Reference Range Interpretation Comments Phosphorus (test code = Phosphorus) 3.1 2.5-4.5 [facility]2015-02-03 07:04:00 Test Item Value Reference Range Interpretation Comments eGFR (test code = eGFR) 34 [facility]2015-02-03 07:04:00 Test Item Value Reference Range Interpretation Comments CO2 (test code = CO2) 25 24-32 [facility]2015-02-03 07:04:00 Test Item Value Reference Range Interpretation Comments AGAP (test code = AGAP) 12.8 10.0-20.0 [facility]2015-02-03 07:04:00 Test Item Value Reference Range Interpretation Comments Calcium Lvl (test code = Calcium Lvl) 8.7 8.5-10.5 [facility]2015-02-03 07:04:00 Test Item Value Reference Range Interpretation Comments Chloride Lvl (test code = Chloride Lvl) 104 95-109 [facility]2015-02-03 07:04:00 Test Item Value Reference Range Interpretation Comments BUN (test code = BUN) 23 7-22 [facility]2015-02-03 07:04:00 Test Item Value Reference Range Interpretation Comments Sodium Lvl (test code = Sodium Lvl) 138 135-145 [facility]2015-02-03 07:04:00 Test Item Value Reference Range Interpretation Comments Glucose Lvl (test code = Glucose Lvl) 82 70-99 [facility]2015-02-03 07:04:00 Test Item Value Reference Range Interpretation Comments Creatinine Lvl (test code = Creatinine 1.5 0.5-1.4 Lvl) [facility]2015-02-03 07:04:00 Test Item Value Reference Range Interpretation Comments Potassium Lvl (test code = Potassium 3.8 3.5-5.1 Lvl) [facility]2015-02-03 07:04:00 Test Item Value Reference Range Interpretation Comments Magnesium Lvl (test code = Magnesium 2.7 1.8-2.4 Lvl) [facility] HospitalEufibauAICELVPMFC6126-31-66 07:04:00 Test Item Value Reference Range Interpretation Comments Segs (test code = Segs) 63.1 45.0-75.0 [facility] HospitalBfrveyqUSHDDSWVDU7483-25-32 07:04:00 Test Item Value Reference Range Interpretation Comments Lymphocytes (test code = Lymphocytes) 27.1 20.0-40.0 [facility] HospitalXoazmefJIAXMECOCB4209-10-62 07:04:00 Test Item Value Reference Range Interpretation Comments Monocytes (test code = Monocytes) 7.2 2.0-12.0 [facility] HospitalKwxfknzZFXSOIDJWI6581-68-01 07:04:00 Test Item Value Reference Range Interpretation Comments Eosinophils # (test code 0.1 See_Comment [A utomated message] The = Eosinophils #) system whic h generated this result tra nsmitted reference range : <=0.5. The reference r criss was not used to int erpret this result as normal/abnormal . [facility] HospitalJrgxiypRMSCZZQRNI9656-68-55 07:04:00 Test Item Value Reference Range Interpretation Comments Eosinophils (test code = 2.2 See_Comment [A utomated message] The Eosinophils) system which ge nerated this result tra nsmitted reference range : <=4.0. The reference r criss was not used to int erpret this result as normal/abnormal . [facility] HospitalQlukgwzBORIJSTPNY7053-52-60 07:04:00 Test Item Value Reference Range Interpretation Comments Basophils (test code = 0.4 See_Comment [Aut omated message] The Basophils) system which ge nerated this result tra nsmitted reference range : <=1.0. The reference r criss was not used to int erpret this result as normal/abnormal . [place] 398915-02-03 07:04:00 Test Item Value Reference Range Interpretation Comments Segs-Bands # (test code = Segs-Bands #) 3.1 1.5-8.1 [facility] HospitalKnreakiENPCMSTCCC9798-59-72 07:04:00 Test Item Value Reference Range Interpretation Comments Monocytes # (test code 0.3 See_Comment [Aut omated message] The = Monocytes #) system which generated this result tra nsmitted reference range : <=0.8. The reference r criss was not used to int erpret this result as normal/abnormal . [facility] HospitalKcyyxnjSNGYFWKNHW0847-74-61 07:04:00 Test Item Value Reference Range Interpretation Comments Lymphocytes # (test code = Lymphocytes 1.3 1.0-5.5 #) [facility] HospitalFukyxnqJNGEFSXLXE4866-44-53 07:04:00 Test Item Value Reference Range Interpretation Comments MPV (test code = MPV) 8.5 7.4-10.4 [facility] HospitalLnqxnuzJEUVHDPPZT5323-31-07 07:04:00 Test Item Value Reference Range Interpretation Comments MCH (test code = MCH) 31.6 pg 27.0-31.0 [facility] HospitalBueazrcMYHCQHVCIJ7386-98-76 07:04:00 Test Item Value Reference Range Interpretation Comments MCV (test code = MCV) 93.4 80.0-98.0 [facility] HospitalYbiafoxIULVJIURLS5043-22-87 07:04:00 Test Item Value Reference Range Interpretation Comments Hct (test code = Hct) 33.2 36.0-48.0 [facility] HospitalGcuhpnrUSHMIRWLMU7348-89-46 07:04:00 Test Item Value Reference Range Interpretation Comments Platelet (test code = Platelet) 151 133-450 [facility] HospitalKjahheyRZYYAUELWD9588-40-32 07:04:00 Test Item Value Reference Range Interpretation Comments RDW (test code = RDW) 13.1 11.5-14.5 [facility] HospitalMdjffmtCEHKCHNBAQ4402-03-57 07:04:00 Test Item Value Reference Range Interpretation Comments MCHC (test code = MCHC) 33.8 32.0-36.0 [facility] HospitalOdnhoavNSQQSKLBQL8727-76-22 07:04:00 Test Item Value Reference Range Interpretation Comments Hgb (test code = Hgb) 11.2 12.0-16.0 [facility] HospitalSaeeudcSGDFBHFFIF5984-36-52 07:04:00 Test Item Value Reference Range Interpretation Comments RBC (test code = RBC) 3.56 4.20-5.40 [facility] HospitalJxqpkzcPHMDRGSTLP9304-62-20 07:04:00 Test Item Value Reference Range Interpretation Comments WBC (test code = WBC) 4.9 3.7-10.4 [facility] HospitalImwonniFEVCMCLKJV6171-82-63 07:04:00 Test Item Value Reference Range Interpretation Comments INR (test code = INR) 1.14 0.85-1.17 [facility] HospitalBlwjjoyMYBVTYHIPC1821-21-64 07:04:00 Test Item Value Reference Range Interpretation Comments PTT (test code = PTT) 28.5 s 22.9-35.8 [facility] HospitalIutkqtbEGUIFOPBAB0794-01-15 07:04:00 Test Item Value Reference Range Interpretation Comments PT (test code = PT) 14.7 s 12.0-14.7 [facility]THY[facility] INMVP4797-61-66 07:04:00 Test Item Value Reference Range Interpretation Comments TSH (test code = TSH) 3.190 0.360-3.740 [facility] AND [id number] 08:06:00 Test Item Value Reference Range Interpretation Comments UA Urobilinogen (test code = UA <=1.0 mg/dL 0.1-1.0 Urobilinogen) [facility] AND [id number] 08:06:00 Test Item Value Reference Range Interpretation Comments UA Renal Epi (test code = UA Renal Epi) 7 [facility] AND [id number] 08:06:00 Test Item Value Reference Range Interpretation Comments UA Sq Epi (test code = UA Sq Moderate /LPF Epi) [facility] AND [id number] 08:06:00 Test Item Value Reference Range Interpretation Comments UA WBC (test code = 2 See_Comment [Automa elly message] The UA WBC) system which ge nerated this result transmit elly reference range : <=5. The reference range was not used to interpr et this result as maren l/abnormal. [facility] AND [id number] 08:06:00 Test Item Value Reference Range Interpretation Comments UA Nitrite (test code Negative (11/24/14 2:06 = UA Nitrite) AM) [facility] AND [id number] 08:06:00 Test Item Value Reference Range Interpretation Comments UA Leuk Est (test Negative (11/24/14 2:06 code = UA Leuk Est) AM) [facility] AND [id number] 08:06:00 Test Item Value Reference Range Interpretation Comments UA Blood (test code = Negative (11/24/14 2:06 UA Blood) AM) [facility] AND [id number] 08:06:00 Test Item Value Reference Range Interpretation Comments UA Protein (test code = UA Negative mg/dL Protein) [facility] AND [id number] 08:06:00 Test Item Value Reference Range Interpretation Comments UA pH (test code = UA pH) 6.5 5.0-8.0 [facility] AND [id number] 08:06:00 Test Item Value Reference Range Interpretation Comments UA Glucose (test code = UA Negative mg/dL Glucose) [facility] AND [id number] 08:06:00 Test Item Value Reference Range Interpretation Comments UA Bili (test code = Negative *NA*(11/24/14 UA Bili) 2:06 AM) [facility] AND [id number] 08:06:00 Test Item Value Reference Range Interpretation Comments UA Ketones (test code = UA Negative mg/dL Ketones) [facility] AND [id number] 08:06:00 Test Item Value Reference Range Interpretation Comments UA Spec Grav (test code = UA Spec Grav) 1.009 [facility] AND [id number] 08:06:00 Test Item Value Reference Range Interpretation Comments UA Turbidity (test code = Clear (11/24/14 2:06 UA Turbidity) AM) [facility] AND [id number] 08:06:00 Test Item Value Reference Range Interpretation Comments UA Color (test code = Yellow *NA*(11/24/14 2:06 UA Color) AM) [facility] AND [id number] 08:06:00 Test Item Value Reference Range Interpretation Comments UA Urobilinogen (test code = UA <=1.0 mg/dL 0.1-1.0 Urobilinogen) [facility] AND [id number] 08:06:00 Test Item Value Reference Range Interpretation Comments UA Renal Epi (test code = UA Renal Epi) 7 [facility] AND [id number] 08:06:00 Test Item Value Reference Range Interpretation Comments UA Sq Epi (test code = UA Sq Moderate /LPF Epi) [facility] AND [id number] 08:06:00 Test Item Value Reference Range Interpretation Comments UA WBC (test code = 2 See_Comment [Automa elly message] The UA WBC) system which ge nerated this result transmit elly reference range : <=5. The reference range was not used to interpr et this result as maren l/abnormal. [facility] AND [id number] 08:06:00 Test Item Value Reference Range Interpretation Comments UA Nitrite (test code Negative (11/24/14 2:06 = UA Nitrite) AM) [facility] AND [id number] 08:06:00 Test Item Value Reference Range Interpretation Comments UA Leuk Est (test Negative (11/24/14 2:06 code = UA Leuk Est) AM) [facility] AND [id number] 08:06:00 Test Item Value Reference Range Interpretation Comments UA Blood (test code = Negative (11/24/14 2:06 UA Blood) AM) [facility] AND [id number] 08:06:00 Test Item Value Reference Range Interpretation Comments UA Protein (test code = UA Negative mg/dL Protein) [facility] AND [id number] 08:06:00 Test Item Value Reference Range Interpretation Comments UA pH (test code = UA pH) 6.5 5.0-8.0 [facility] AND [id number] 08:06:00 Test Item Value Reference Range Interpretation Comments UA Glucose (test code = UA Negative mg/dL Glucose) [facility] AND [id number] 08:06:00 Test Item Value Reference Range Interpretation Comments UA Bili (test code = Negative *NA*(11/24/14 UA Bili) 2:06 AM) [facility] AND [id number] 08:06:00 Test Item Value Reference Range Interpretation Comments UA Ketones (test code = UA Negative mg/dL Ketones) [facility] AND [id number] 08:06:00 Test Item Value Reference Range Interpretation Comments UA Spec Grav (test code = UA Spec Grav) 1.009 [facility] AND [id number] 08:06:00 Test Item Value Reference Range Interpretation Comments UA Turbidity (test code = Clear (11/24/14 2:06 UA Turbidity) AM) [facility] AND [id number] 08:06:00 Test Item Value Reference Range Interpretation Comments UA Color (test code = Yellow *NA*(11/24/14 2:06 UA Color) AM) [facility]2015-02-02 07:51:00 Test Item Value Reference Range Interpretation Comments A/G Ratio (test code = A/G Ratio) 1.2 0.7-1.6 [facility]2015-02-02 07:51:00 Test Item Value Reference Range Interpretation Comments Globulin (test code = Globulin) 3.2 2.0-4.0 [facility]2015-02-02 07:51:00 Test Item Value Reference Range Interpretation Comments B/C Ratio (test code = B/C Ratio) 22 6-25 [facility]2015-02-02 07:51:00 Test Item Value Reference Range Interpretation Comments AGAP (test code = AGAP) 9.8 10.0-20.0 [facility]2015-02-02 07:51:00 Test Item Value Reference Range Interpretation Comments eGFR (test code = eGFR) 29 [facility]2015-02-02 07:51:00 Test Item Value Reference Range Interpretation Comments Glucose Lvl (test code = Glucose Lvl) 125 70-99 [facility]2015-02-02 07:51:00 Test Item Value Reference Range Interpretation Comments Calcium Lvl (test code = Calcium Lvl) 8.7 8.5-10.5 [facility]2015-02-02 07:51:00 Test Item Value Reference Range Interpretation Comments ALT (test code = ALT) 29 See_Comment [Auto mated message] The system which ge nerated this result transmit elly reference range : <=65. The reference range was not used to interpr et this result as maren l/abnormal. [facility]2015-02-02 07:51:00 Test Item Value Reference Range Interpretation Comments AST (test code = AST) 17 See_Comment [Auto mated message] The system which ge nerated this result transmit elly reference range : <=37. The reference range was not used to interpr et this result as maren l/abnormal. [facility]2015-02-02 07:51:00 Test Item Value Reference Range Interpretation Comments Albumin Lvl (test code = Albumin Lvl) 3.7 3.5-5.0 [facility]2015-02-02 07:51:00 Test Item Value Reference Range Interpretation Comments Total Protein (test code = Total 6.9 6.4-8.4 Protein) [facility]2015-02-02 07:51:00 Test Item Value Reference Range Interpretation Comments CO2 (test code = CO2) 28 24-32 [facility]2015-02-02 07:51:00 Test Item Value Reference Range Interpretation Comments Chloride Lvl (test code = Chloride Lvl) 103 95-109 [facility]2015-02-02 07:51:00 Test Item Value Reference Range Interpretation Comments Potassium Lvl (test code = Potassium 3.8 3.5-5.1 Lvl) [facility]2015-02-02 07:51:00 Test Item Value Reference Range Interpretation Comments Sodium Lvl (test code = Sodium Lvl) 137 135-145 [facility]2015-02-02 07:51:00 Test Item Value Reference Range Interpretation Comments Creatinine Lvl (test code = Creatinine 1.7 0.5-1.4 Lvl) [facility]2015-02-02 07:51:00 Test Item Value Reference Range Interpretation Comments BUN (test code = BUN) 37 7-22 [facility]2015-02-02 07:51:00 Test Item Value Reference Range Interpretation Comments Alk Phos (test code = Alk Phos) 37 39-136 [facility]2015-02-02 07:51:00 Test Item Value Reference Range Interpretation Comments Bili Total (test code = Bili Total) 0.4 0.2-1.3 [facility]vy[facility]qirNEAZQVRWOU4246-26-17 07:51:00 Test Item Value Reference Range Interpretation Comments Monocytes # (test code 0.4 See_Comment [Aut omated message] The = Monocytes #) system which generated this result tra nsmitted reference range : <=0.8. The reference r criss was not used to int erpret this result as normal/abnormal . [facility] HospitalLbhmwwiCEKZWYQQGX4881-34-24 07:51:00 Test Item Value Reference Range Interpretation Comments Lymphocytes # (test code = Lymphocytes 1.1 1.0-5.5 #) [facility] HospitalVhujezrPJJDQSSWMN4224-73-18 07:51:00 Test Item Value Reference Range Interpretation Comments Eosinophils # (test code 0.1 See_Comment [A utomated message] The = Eosinophils #) system whic h generated this result tra nsmitted reference range : <=0.5. The reference r criss was not used to int erpret this result as normal/abnormal . [facility] HospitalVxsilvnPZHMAFZSOD0847-19-86 07:51:00 Test Item Value Reference Range Interpretation Comments Segs (test code = Segs) 70.9 45.0-75.0 [facility] HospitalDupmtzfGSDFJCQFDN5748-37-56 07:51:00 Test Item Value Reference Range Interpretation Comments Monocytes (test code = Monocytes) 6.7 2.0-12.0 [facility] HospitalWfpwqrgTVSGSFJWXW2810-35-78 07:51:00 Test Item Value Reference Range Interpretation Comments Lymphocytes (test code = Lymphocytes) 19.7 20.0-40.0 [facility] HospitalTwelbzyVGOKHDISVG7781-22-95 07:51:00 Test Item Value Reference Range Interpretation Comments Eosinophils (test code = 2.3 See_Comment [A utomated message] The Eosinophils) system which ge nerated this result tra nsmitted reference range : <=4.0. The reference r criss was not used to int erpret this result as normal/abnormal . [facility] HospitalDrwhoqaYUEOXRGBHM6508-93-59 07:51:00 Test Item Value Reference Range Interpretation Comments Segs-Bands # (test code = Segs-Bands #) 4.0 1.5-8.1 [facility] HospitalRryaaduRUJRBKYYHP7422-76-22 07:51:00 Test Item Value Reference Range Interpretation Comments Basophils (test code = 0.4 See_Comment [Aut omated message] The Basophils) system which ge nerated this result tra nsmitted reference range : <=1.0. The reference r criss was not used to int erpret this result as normal/abnormal . [facility] HospitalFnpfjddSORWVQNMYR2911-25-12 07:51:00 Test Item Value Reference Range Interpretation Comments PTT (test code = PTT) 28.2 s 22.9-35.8 [facility] HospitalVnoonvgWZMMQLRFUJ2939-21-09 07:51:00 Test Item Value Reference Range Interpretation Comments PT (test code = PT) 13.9 s 12.0-14.7 [facility] HospitalNktsvsiNVAZKJWKCR9812-23-27 07:51:00 Test Item Value Reference Range Interpretation Comments INR (test code = INR) 1.07 0.85-1.17 [facility] HospitalBznamylSDYWRUANAQ8001-69-54 07:51:00 Test Item Value Reference Range Interpretation Comments MPV (test code = MPV) 8.8 7.4-10.4 [facility] HospitalXpvnapiAYMNTNKMPR2017-62-97 07:51:00 Test Item Value Reference Range Interpretation Comments WBC (test code = WBC) 5.7 3.7-10.4 [facility] HospitalFzektzdSKUSOIWWOB0114-53-76 07:51:00 Test Item Value Reference Range Interpretation Comments MCV (test code = MCV) 94.9 80.0-98.0 [facility] HospitalAnatpxhHJUAZWSWQS7580-15-57 07:51:00 Test Item Value Reference Range Interpretation Comments RBC (test code = RBC) 3.73 4.20-5.40 [facility] HospitalRbhcxxjZCDSCGQDTZ7429-28-17 07:51:00 Test Item Value Reference Range Interpretation Comments RDW (test code = RDW) 13.3 11.5-14.5 [facility] HospitalUdupyqeLIZKMMDVUR9824-70-47 07:51:00 Test Item Value Reference Range Interpretation Comments Hgb (test code = Hgb) 12.1 12.0-16.0 [facility] HospitalUcedfosALPGVGLAQL1552-52-83 07:51:00 Test Item Value Reference Range Interpretation Comments Hct (test code = Hct) 35.3 36.0-48.0 [facility] HospitalMlopameEWPMZCNIBL2303-87-77 07:51:00 Test Item Value Reference Range Interpretation Comments Platelet (test code = Platelet) 158 133-450 [facility] HospitalKowvhecIJALUTCYKK6637-34-17 07:51:00 Test Item Value Reference Range Interpretation Comments MCHC (test code = MCHC) 34.2 32.0-36.0 [facility] HospitalXrijefsIJKKQTGZHK6251-12-73 07:51:00 Test Item Value Reference Range Interpretation Comments MCH (test code = MCH) 32.5 pg 27.0-31.0 [facility]Ss[facility]arpDMEBMA7513-21-49 07:51:00 Test Item Value Reference Range Interpretation Comments CHD Risk (test code = CHD Risk) 2.81 3.90-5.80 [facility] HospitalGfgmzriEHQDBV0268-38-05 07:51:00 Test Item Value Reference Range Interpretation Comments VLDL (test code = VLDL) 26 [facility] HospitalZsypygwWESRZJ5889-62-87 07:51:00 Test Item Value Reference Range Interpretation Comments LDL (Calculated) (test code = LDL 59 (Calculated)) [facility] HospitalCeywdamVXDAWO2089-17-45 07:51:00 Test Item Value Reference Range Interpretation Comments Trig (test code = Trig) 128 [facility] HospitalUmnwecoJOSKVS1563-99-14 07:51:00 Test Item Value Reference Range Interpretation Comments HDL (test code = HDL) 47 [facility] HospitalNlyqcarQUZDNT4835-87-43 07:51:00 Test Item Value Reference Range Interpretation Comments Chol (test code = Chol) 132 [facility] CUNPGYWSN2350-81-29 07:51:00 Test Item Value Reference Range Interpretation Comments Hgb A1C (test code = Hgb A1C) 5.[address] [id number] 07:51:00 Test Item Value Reference Range Interpretation Comments A/G Ratio (test code = A/G Ratio) 1.2 0.7-1.[address] [id number] 07:51:00 Test Item Value Reference Range Interpretation Comments Globulin (test code = Globulin) 3.2 2.0-4.[address] [id number] 07:51:00 Test Item Value Reference Range Interpretation Comments B/C Ratio (test code = B/C Ratio) 22 6-25 [facility] [id number] 07:51:00 Test Item Value Reference Range Interpretation Comments AGAP (test code = AGAP) 9.8 10.0-20.[address] [id number] 07:51:00 Test Item Value Reference Range Interpretation Comments eGFR (test code = eGFR) [address] [id number] 07:51:00 Test Item Value Reference Range Interpretation Comments Glucose Lvl (test code = Glucose Lvl) 125 70-[address] [id number] 07:51:00 Test Item Value Reference Range Interpretation Comments Calcium Lvl (test code = Calcium Lvl) 8.7 8.5-10.5 [facility] [place] [id number] 07:51:00 Test Item Value Reference Range Interpretation Comments ALT (test code = ALT) 29 See_Comment [Auto mated message] The system which ge nerated this result transmit elly reference range : <=65. The reference range was not used to interpr et this result as maren l/abnormal. [facility]2015-02-02 07:51:00 Test Item Value Reference Range Interpretation Comments AST (test code = AST) 17 See_Comment [Auto mated message] The system which ge nerated this result transmit elly reference range : <=37. The reference range was not used to interpr et this result as maren l/abnormal. [facility]2015-02-02 07:51:00 Test Item Value Reference Range Interpretation Comments Albumin Lvl (test code = Albumin Lvl) 3.7 3.5-5.0 [facility]2015-02-02 07:51:00 Test Item Value Reference Range Interpretation Comments Total Protein (test code = Total 6.9 6.4-8.4 Protein) [facility]2015-02-02 07:51:00 Test Item Value Reference Range Interpretation Comments CO2 (test code = CO2) 28 24-32 [facility]2015-02-02 07:51:00 Test Item Value Reference Range Interpretation Comments Chloride Lvl (test code = Chloride Lvl) 103 95-109 [facility]2015-02-02 07:51:00 Test Item Value Reference Range Interpretation Comments Potassium Lvl (test code = Potassium 3.8 3.5-5.1 Lvl) [facility]2015-02-02 07:51:00 Test Item Value Reference Range Interpretation Comments Sodium Lvl (test code = Sodium Lvl) 137 135-145 [facility]2015-02-02 07:51:00 Test Item Value Reference Range Interpretation Comments Creatinine Lvl (test code = Creatinine 1.7 0.5-1.4 Lvl) [facility]2015-02-02 07:51:00 Test Item Value Reference Range Interpretation Comments BUN (test code = BUN) 37 7-22 [facility]2015-02-02 07:51:00 Test Item Value Reference Range Interpretation Comments Alk Phos (test code = Alk Phos) 37 39-136 [place] [id number] 07:51:00 Test Item Value Reference Range Interpretation Comments Bili Total (test code = Bili Total) 0.4 0.2-1.3 [facility] HospitalRtjihlkVSTXZVEZHN1273-99-49 07:51:00 Test Item Value Reference Range Interpretation Comments Monocytes # (test code 0.4 See_Comment [Aut omated message] The = Monocytes #) system which generated this result tra nsmitted reference range : <=0.8. The reference r criss was not used to int erpret this result as normal/abnormal . [facility] HospitalIqiaqvnTSFYQFEWNF6004-41-24 07:51:00 Test Item Value Reference Range Interpretation Comments Lymphocytes # (test code = Lymphocytes 1.1 1.0-5.5 #) [facility] HospitalBtdnzhrXVJHPKAZHI9853-21-99 07:51:00 Test Item Value Reference Range Interpretation Comments Eosinophils # (test code 0.1 See_Comment [A utomated message] The = Eosinophils #) system whic h generated this result tra nsmitted reference range : <=0.5. The reference r criss was not used to int erpret this result as normal/abnormal . [facility] HospitalKkbkisvJGVYOQRMQF8206-02-60 07:51:00 Test Item Value Reference Range Interpretation Comments Segs (test code = Segs) 70.9 45.0-75.0 [facility] HospitalBezaksdGJNNXPVFRL1589-02-32 07:51:00 Test Item Value Reference Range Interpretation Comments Monocytes (test code = Monocytes) 6.7 2.0-12.0 [facility] HospitalTyehfwjDDUKKYVDPM2026-36-74 07:51:00 Test Item Value Reference Range Interpretation Comments Lymphocytes (test code = Lymphocytes) 19.7 20.0-40.0 [facility] HospitalAmucjqjIVYWKZNIJN7111-68-60 07:51:00 Test Item Value Reference Range Interpretation Comments Eosinophils (test code = 2.3 See_Comment [A utomated message] The Eosinophils) system which ge nerated this result tra nsmitted reference range : <=4.0. The reference r criss was not used to int erpret this result as normal/abnormal . [facility] HospitalYsktgadKVLUJEEAYM1659-31-02 07:51:00 Test Item Value Reference Range Interpretation Comments Segs-Bands # (test code = Segs-Bands #) 4.0 1.5-8.1 [place] [address]-02-02 07:51:00 Test Item Value Reference Range Interpretation Comments Basophils (test code = 0.4 See_Comment [Aut omated message] The Basophils) system which ge nerated this result tra nsmitted reference range : <=1.0. The reference r criss was not used to int erpret this result as normal/abnormal . [facility] HospitalNtmaznjLOQFNJVGPI2941-90-11 07:51:00 Test Item Value Reference Range Interpretation Comments PTT (test code = PTT) 28.2 s 22.9-35.8 [facility] HospitalKvxmadqRBNLRUTXMX5779-37-38 07:51:00 Test Item Value Reference Range Interpretation Comments PT (test code = PT) 13.9 s 12.0-14.7 [facility] HospitalSnmnjkhCSOSFXDEFG4762-84-09 07:51:00 Test Item Value Reference Range Interpretation Comments INR (test code = INR) 1.07 0.85-1.17 [facility] HospitalOcndimeXYTEWICSZQ8585-74-55 07:51:00 Test Item Value Reference Range Interpretation Comments MPV (test code = MPV) 8.8 7.4-10.4 [place] 398915-02-02 07:51:00 Test Item Value Reference Range Interpretation Comments WBC (test code = WBC) 5.7 3.7-10.4 [facility] HospitalNefrqerETBGNFSREB7409-91-99 07:51:00 Test Item Value Reference Range Interpretation Comments MCV (test code = MCV) 94.9 80.0-98.0 [facility] HospitalNpyocosHFMQKQGVNB6863-41-69 07:51:00 Test Item Value Reference Range Interpretation Comments RBC (test code = RBC) 3.73 4.20-5.40 [facility] HospitalEazdyjwUJPQQHGBXA8211-97-78 07:51:00 Test Item Value Reference Range Interpretation Comments RDW (test code = RDW) 13.3 11.5-14.5 [facility] HospitalRexxnyeKCXNYHKZHF7754-85-59 07:51:00 Test Item Value Reference Range Interpretation Comments Hgb (test code = Hgb) 12.1 12.0-16.0 [place] [address]-02-02 07:51:00 Test Item Value Reference Range Interpretation Comments Hct (test code = Hct) 35.3 36.0-48.0 [facility] HospitalJpfkjctHWMVIKZGFT7427-90-43 07:51:00 Test Item Value Reference Range Interpretation Comments Platelet (test code = Platelet) 158 133-450 [facility] HospitalTnehxszWAEALBKRRE8514-42-89 07:51:00 Test Item Value Reference Range Interpretation Comments MCHC (test code = MCHC) 34.2 32.0-36.0 [facility]GB[facility]57 07:51:00 Test Item Value Reference Range Interpretation Comments MCH (test code = MCH) 32.5 pg 27.0-31.0 [facility] HospitalTwuukamNSOAVG5920-62-50 07:51:00 Test Item Value Reference Range Interpretation Comments CHD Risk (test code = CHD Risk) 2.81 3.90-5.80 [facility] HospitalEcqlfyePDAGPO9364-21-50 07:51:00 Test Item Value Reference Range Interpretation Comments VLDL (test code = VLDL) 26 [facility] HospitalJmchfgpLWQZGX9211-17-76 07:51:00 Test Item Value Reference Range Interpretation Comments LDL (Calculated) (test code = LDL 59 (Calculated)) [facility] HospitalOykjlxiTLZRKT0076-36-61 07:51:00 Test Item Value Reference Range Interpretation Comments Trig (test code = Trig) 128 [facility] HospitalTnbppmxIPHAKL7189-35-90 07:51:00 Test Item Value Reference Range Interpretation Comments HDL (test code = HDL) 47 [facility] HospitalDvyulasKTEBSM2653-51-77 07:51:00 Test Item Value Reference Range Interpretation Comments Chol (test code = Chol) 132 [facility] CDGDZUEBV7020-88-60 07:51:00 Test Item Value Reference Range Interpretation Comments Hgb A1C (test code = Hgb A1C) 5.6 [facility]
--- NOTE | 2022-12-01 20:45 | RAD REPORT ---
EXAM DESCRIPTION: RAD - Chest Single View - 12/01/2022 8:34 pm CLINICAL HISTORY: Dyspnea Chest pain. COMPARISON: Chest Single View dated 07/14/2022; Chest Single View dated 05/30/2022; Chest Single View d ated 05/27/2022; Chest Pa And Lat (2 Views) dated 05/28/2021 FINDINGS: Portable technique limits examination quality. Mild interstitial pulmonary edema suspected. The heart is moderately enlarged in size. No displaced f ractures. IMPRESSION: Mild CHF.
[2022-12-01 21:01] LABS: Absolute Lymphocytes (CBC) 0.8 K/uL (0.7-4.9); Hematocrit 34.3 % (36.0-45.0); Lymphocytes % 27.6 % (15.3-44.8); MCV 85.2 fL (80-100); RBC Red Blood Cell Count 4.02 M/uL (3.86-4.86)
[2022-12-01 21:16] LABS: Protime INR 1.5
[2022-12-01 21:27] LABS: Bilirubin Total 0.7 mg/dL (0.2-1.0); Protein, Total 6.8 g/dL (6.4-8.2)
[2022-12-01 21:52] LABS: SARS-COV-2 RT PCR POSITIVE (NEGATIVE)
--- NOTE | 2022-12-01 22:37 | ER ---
Nurse's Notes [facility] Name: Kristal You Age: 82 yrs Sex: Female : 1940 Arrival Date: 12/01/2022 Time: 20:11 Bed 13 Private MD: Diagnosis: Pneumonia due to SARS-associated coronavirus;Dyspnea, unspecified Presentation: 12/01 20:11 Chief complaint: EMS states: "Pt has been sick with a headache, cough, and fever for 1 mb9 week. Pt took at home COVID test and it was positive. Pt states she feels SOB. Coronavirus screen: Vaccine status: Patient reports receiving the 2nd dose of the covid vaccine. Ebola Screen: No symptoms or risks identified at this time. Initial Sepsis Screen: Does the patient meet any 2 criteria? No. Patient's initial sepsis screen is negative. Does the patient have a suspected source of infection? No. Patient's initial sepsis screen is negative. Risk Assessment: Do you want to hurt yourself or someone else? Patient reports no desire to harm self or others. Onset of symptoms was November 24, 2022. 20:11 Acuity: LUCINA 3 mb9 20:11 Method Of Arrival: EMS: [facility] mb9 Historical: - Allergies: 20:13 LETY INHIBITORS; mb9 - Home Meds: 20:13 aspirin 81 mg Oral chew 1 tab once daily [Active]; Vascepa 1 gram Oral cap 2 times per mb9 day [Active]; atenolol 50 mg Oral tab once daily [Active]; baclofen 10 mg Oral tab 1 tab at bedtime [Active]; clonidine HCl 0.1 mg Oral tab as needed [Active]; pravastatin 40 mg Oral tab once daily [Active]; gabapentin 100 mg Oral cap 1 caps 3 times per day [Active]; levothyroxine 112 mcg tab once daily [Active]; Eliquis 5 mg Oral tab 1 tab 2 times per day [Active]; doxazosin 4 mg Oral tab 1 tab 1/2 tab in the am and 1 tab in the afternoon [Active]; dofetilide 500mcg Oral 2 times per day [Active]; Edarbyclor 40-25 mg Oral tab 1 tab once daily [Active]; tramadol 50 mg Oral tab 1 tab twice a day [Active]; liothyronine 5 mcg Oral tab once daily [Active]; 12/02 00:15 carvedilol 12.5 mg oral tab 1 tab 2 times per day [Active]; lg3 - PMHx: 12/01 20:13 Asthma; UTI; Hypertension; Hypothyroidism; CVA; Atrial Fib; Chronic obstructive lung mb9 disease; Congestive heart failure; Myocardial infarction; - PSHx: 20:13 ablation; Cholecystectomy; mb9 - Immunization history:: Adult Immunizations up to date. - Social history:: Smoking status: Patient/guardian denies using tobacco. - Family history:: not pertinent. - Hospitalizations: : No recent hospitalization is reported. Screenin:20 [facility] ED Fall Risk Assessment (Adult) History of falling in the last 3 months, lg3 including since admission No falls in past 3 months (0 pts). Abuse screen: Denies threats or abuse. Denies injuries from another. Nutritional screening: No deficits noted. Tuberculosis screening: No symptoms or risk factors identified. Assessment: 20:20 General: Appears in no apparent distress. comfortable, Behavior is calm, cooperative. lg3 Pain: Denies pain. Neuro: No deficits noted. [place] Ag[place]-Sed[place] Scale (RASS): 0 - Alert and Calm Level of Consciousness is awake, alert, obeys commands, Oriented to person, place. Cardiovascular: No deficits noted. Denies chest pain, Capillary refill < 3 seconds Clubbing of nail beds is absent JVD is absent Patient's skin is warm and dry. Respiratory: Reports shortness of breath cough that is Airway is patent Trachea midline Respiratory effort is even, unlabored, Respiratory pattern is regular, symmetrical. GI: No deficits noted. No signs and/or symptoms were reported involving the gastrointestinal system. Abdomen is round non-distended, obese. : No deficits noted. No signs and/or symptoms were reported regarding the genitourinary system. EENT: No deficits noted. No signs and/or symptoms were reported regarding the EENT system. Derm: No deficits noted. No signs and/or symptoms reported regarding the dermatologic system. Skin is intact, is healthy with good turgor, Skin is dry, Skin is normal. Musculoskeletal: Circulation, motion, and sensation intact. Range of motion: intact in all extremities, Reports generalized weakness for 1 week. 21:20 General: daughter Lissette Patricia home [phone] [facility] [phone]. lg3 21:55 Reassessment: Patient appears in no apparent distress at this time. No changes from lg3 previously documented assessment. Patient and/or family updated on plan of care and expected duration. Pain level reassessed. Patient is alert, oriented x 3, equal unlabored respirations, skin warm/dry/pink. 22:59 Reassessment: Patient appears in no apparent distress at this time. No changes from lg3 previously documented assessment. Patient and/or family updated on plan of care and expected duration. Pain level reassessed. Patient is alert, oriented x 3, equal unlabored respirations, skin warm/dry/pink. pt quietly resting at this time. Vital Signs: 20:11 BP 156 / 66; Pulse 60; Resp 18; Temp 98.3(O); Pulse Ox 96% on R/A; Weight 117.93 kg; mb9 Height 5 ft. 2 in. (157.48 cm); 20:20 BP 155 / 58; Pulse 56; Resp 20; Pulse Ox 96% on R/A; lg3 21:55 BP 134 / 42; Pulse 53; Resp 22; Pulse Ox 96% on R/A; lg3 22:59 BP 138 / 52; Pulse 55; Resp 20; Pulse Ox 96% on R/A; lg3 20:11 Body Mass Index 47.55 (117.93 kg, 157.48 cm) mb9 ED Course: 20:11 Patient arrived in ED. mb9 20:12 Roger Samuels MD is Attending Physician. rn 20:13 Triage completed. mb9 20:13 Arm band placed on. mb9 20:15 Bed in low position. Call light in reach. Side rails up X 1. Client placed on mb9 continuous cardiac and pulse oximetry monitoring. NIBP monitoring applied. ekg monitor tech on. 20:20 Door closed. Noise minimized. Warm blanket given. Pillow given. lg3 20:37 Chest Single View XRAY In Process Unspecified. EDMS 20:50 Inserted saline lock: 20 gauge 22 gauge in right in left forearm, using aseptic ds4 technique. wrist, using aseptic technique. Blood collected. 20:51 COVID-19/FLU A+B Sent. lg3 21:54 Rosey Anne, RN is Primary Nurse. lg3 22:36 Khadijah Gurrola MD is Hospitalizing Provider. rn 12/02 00:40 No provider procedures requiring assistance completed. Patient admitted, IV remains in lg3 place. intact, No redness/swelling at site. Administered Medications: No medications were administered Medication: 00:41 VIS not applicable for this client. lg3 Outcome: 12/01 22:36 Decision to Hospitalize by Provider. rn 12/02 00:40 Admitted to Med/surg accompanied by tech, via stretcher, room 409, Report called to 3 Benji Condition: stable Instructed on the need for admit, Demonstrated understanding of instructions. 00:41 Patient left the ED. lg3 Signatures: Dispatcher [employer] EDMS Roger Samuels MD MD rn Swanson, Donovan ds4 Rosey Anne RN RN 3 Carolyn Jules RN RN mb9 Corrections: (The following items were deleted from the chart) 12/01 20:15 20:13 Allergies: HYDRALAZINE; elli9 mb9 20:15 20:13 Home Meds: hydralazine 50 mg Oral tab three times daily; mb9 mb9 12/02 00:24 00:15 PSHx: hyst; lg3 lg3
--- NOTE | 2022-12-01 22:37 | EDPHYS ---
Physician Documentation [facility] Name: Kristal You Age: 82 yrs Sex: Female : 1940 Arrival Date: 12/01/2022 Time: 20:11 Bed 13 Private MD: ED Physician Roger Samuels HPI: 12/01 22:13 This 82 yrs old Female presents to ER via EMS with complaints of General Weakness, sob, rn COVID+. 22:13 The patient has shortness of breath at rest, with light activity. Onset: The rn symptoms/episode began/occurred yesterday. Duration: The symptoms are continuous. The patient's shortness of breath is aggravated by exertion, light activity, talking, is alleviated by nothing. Associated signs and symptoms: Pertinent positives: productive cough, Pertinent negatives: fever, hemoptysis. Severity of symptoms: At their worst the symptoms were moderate in the emergency department the symptoms are unchanged. The patient has not experienced similar symptoms in the past. The patient has not recently seen a physician. Pt reports COVID+, sick for 1 week with generalized weakness, fatigue, not eating, + sob with productive cough. NO fever. . Historical: - Allergies: 20:13 LETY INHIBITORS; mb9 - Home Meds: 20:13 aspirin 81 mg Oral chew 1 tab once daily [Active]; Vascepa 1 gram Oral cap 2 times per mb9 day [Active]; atenolol 50 mg Oral tab once daily [Active]; baclofen 10 mg Oral tab 1 tab at bedtime [Active]; clonidine HCl 0.1 mg Oral tab as needed [Active]; pravastatin 40 mg Oral tab once daily [Active]; gabapentin 100 mg Oral cap 1 caps 3 times per day [Active]; levothyroxine 112 mcg tab once daily [Active]; Eliquis 5 mg Oral tab 1 tab 2 times per day [Active]; doxazosin 4 mg Oral tab 1 tab 1/2 tab in the am and 1 tab in the afternoon [Active]; dofetilide 500mcg Oral 2 times per day [Active]; Edarbyclor 40-25 mg Oral tab 1 tab once daily [Active]; tramadol 50 mg Oral tab 1 tab twice a day [Active]; liothyronine 5 mcg Oral tab once daily [Active]; 12/02 00:15 carvedilol 12.5 mg oral tab 1 tab 2 times per day [Active]; lg3 - PMHx: 12/01 20:13 Asthma; UTI; Hypertension; Hypothyroidism; CVA; Atrial Fib; Chronic obstructive lung mb9 disease; Congestive heart failure; Myocardial infarction; - PSHx: 20:13 ablation; Cholecystectomy; mb9 - Immunization history:: Adult Immunizations up to date. - Social history:: Smoking status: Patient/guardian denies using tobacco. - Family history:: not pertinent. - Hospitalizations: : No recent hospitalization is reported. ROS: 22:15 Constitutional: Negative for fever, chills Eyes: Negative for injury, pain, redness, rn and discharge, Neck: Negative for injury, pain, and swelling, Cardiovascular: Negative for chest pain, palpitations, and edema, Respiratory: + cough and sob Abdomen/GI: Negative for abdominal pain, nausea, vomiting, diarrhea, and constipation, MS/Extremity: Negative for injury and deformity, Skin: Negative for injury, rash, and discoloration, Neuro: Negative for headache, numbness, tingling, and seizure. Exam: 20:26 ECG was reviewed by the Attending Physician. rn 22:15 Constitutional: + moderate tachypnea Head/Face: Normocephalic, atraumatic. 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 No pulse deficits. Respiratory: + moderate tachypnea Abdomen/GI: Soft, non-tender Skin: Warm, dry MS/ Extremity: Pulses equal, no cyanosis. Neuro: Awake and alert, GCS 15 Vital Signs: 20:11 BP 156 / 66; Pulse 60; Resp 18; Temp 98.3(O); Pulse Ox 96% on R/A; Weight 117.93 kg; mb9 Height 5 ft. 2 in. (157.48 cm); 20:20 BP 155 / 58; Pulse 56; Resp 20; Pulse Ox 96% on R/A; lg3 21:55 BP 134 / 42; Pulse 53; Resp 22; Pulse Ox 96% on R/A; lg3 22:59 BP 138 / 52; Pulse 55; Resp 20; Pulse Ox 96% on R/A; lg3 20:11 Body Mass Index 47.55 (117.93 kg, 157.48 cm) 9 MDM: 20:12 Patient medically screened. rn 22:34 Differential diagnosis: Bronchitis CHF exacerbation, Chronic Obstructive Pulmonary rn Disease Myocardial Infarction pneumonia, Pneumothorax pulmonary edema, reactive airway disease, Sepsis. Data reviewed: vital signs, nurses notes, lab test result(s), radiologic studies, plain films, and as a result, I will admit patient. Consideration of Admission/Observation Escalation of care including admission/observation considered. Management of patient was discussed with the following: Primary Care Provider: Management discussed with PCP Dr. Gurrola, will admit for dyspnea, COVID, CHF.. Counseling: I had a detailed discussion with the patient and/or guardian regarding: the historical points, exam findings, and any diagnostic results supporting the discharge/admit diagnosis, lab results, radiology results, the need for further work-up and treatment in the hospital. Response to treatment: There is no appreciated change of the patient's symptoms at this time, and as a result, I will admit patient. 12/01 20:17 Order name: Blood Culture Adult (2) rn 12/01 20:17 Order name: CBC with Diff; Complete Time: 22:11 12/01 20:17 Order name: CMP; Complete Time: 22:11 rn 12/01 20:17 Order name: Lactate w/ 2H reflex if indic.; Complete Time: 22:11 12/01 20:17 Order name: Protime (+inr); Complete Time: 22:11 rn 12/01 20:17 Order name: Ptt, Activated; Complete Time: 22:11 rn 12/01 20:17 Order name: Chest Single View XRAY; Complete Time: 20:54 rn 12/01 20:17 Order name: EKG; Complete Time: 20:18 rn 12/01 20:17 Order name: Accucheck; Complete Time: 20:55 rn 12/01 20:17 Order name: Cardiac monitoring; Complete Time: 20:49 rn 12/01 20:17 Order name: EKG - Nurse/Tech; Complete Time: 20:49 rn 12/01 20:17 Order name: COVID-19/FLU A+B; Complete Time: 22:11 rn 12/01 21:07 Order name: Glucose, Ancillary Testing; Complete Time: 22:11 EDMS 12/01 22:13 Order name: BNP rn 12/01 20:17 Order name: IV Saline Lock - Large Bore; Complete Time: 20:49 rn 12/01 20:17 Order name: Labs collected and sent; Complete Time: 20:49 rn 12/01 20:17 Order name: O2 Per Protocol; Complete Time: 20:49 rn 12/01 20:17 Order name: O2 Sat Monitoring; Complete Time: 20:49 rn 12/01 20:17 Order name: Vital Signs; Complete Time: 20:49 rn EC:26 Rate is 57 beats/min. Rhythm is regular. QRS [place] is Normal. SC interval is prolonged. rn QRS interval is normal. QT interval is normal. No Q waves. T waves are Normal. No ST changes noted. Clinical impression: Sinus bradycardia. Interpreted by me. Reviewed by me. Administered Medications: No medications were administered Disposition Summary: 12/01/22 22:36 Hospitalization Ordered Hospitalization Status: Inpatient Admission rn Provider: Khadijah Gurrola rn Location: Telemetry/MedSurg (Inpatient) rn Condition: Stable rn Problem: new rn Symptoms: are unchanged rn Bed/Room Type: Standard rn Room Assignment: 409(12/01/22 23:32) Diagnosis - Pneumonia due to SARS-associated coronavirus rn - Dyspnea, unspecified rn Forms: - Medication Reconciliation Form rn - SBAR form rn Signatures: Dispatcher [employer] EDMS Janel English RN RN Roger Krishnamurthy MD MD rn Gibson, Lacie, RN RN [email or web address] Carolyn Jules RN RN mb9 Corrections: (The following items were deleted from the chart) 20:15 20:13 Allergies: HYDRALAZINE; elli9 mb9 20:15 20:13 Home Meds: hydralazine 50 mg Oral tab three times daily; mb9 mb9 23:32 22:36 rn 12/02 00:24 00:15 PSHx: hyst; lg3 lg3
[2022-12-02] MEDS ORDERED: IPRATROPIUM BROM 0.5MG/2.5ML NEB PRN ×2 (00:31→12:00)
[2022-12-02] MEDS ORDERED: ONDANSETRON 4 MG/2 ML VIAL IV PRN (00:31)
[2022-12-02] MEDS ORDERED: ALBUTEROL 2.5 MG/3 ML NEB SOL NEB PRN ×2 (00:31→12:00)
[2022-12-02 01:28] VITALS: BMI 45.3
[2022-12-02] MEDS: ALBUTEROL 2.5 MG/3 ML NEB SOL NEB SCH ×4 (01:55→20:15)
[2022-12-02 04:19] LABS: Hematocrit 30.4 % (36.0-45.0); Lymphocytes % 35.5 % (15.3-44.8); MCV 84.1 fL (80-100); MPV 7.7 fL (7.6-11.3); RBC Red Blood Cell Count 3.61 M/uL (3.86-4.86)
[2022-12-02 04:38] LABS: Potassium 2.8 mmol/L (3.5-5.1)
[2022-12-02] MEDS: METOPROLOL TAR 25 MG TAB PO SCH ×2 (05:18→17:04)
[2022-12-02] MEDS: LOSARTAN POTASSIUM 50 MG TABLET PO SCH ×2 (05:18→21:41)
[2022-12-02] MEDS: ACETAMINOPHEN 500 MG TAB PO PRN ×2 (05:23→21:40)
[2022-12-02] MEDS ORDERED: NA CHLORIDE 0.9% 500 ML ONE (05:38)
[2022-12-02] MEDS: KCL 20 MEQ/100 mL IVPB 20 MEQ/100 ML BAG IV SCH (05:40)
[2022-12-02] MEDS ORDERED: HOME MED 1 EA UNK (Omeprazole [Omeprazole] 20 MG Capsule.Dr) PO SCH (09:00)
[2022-12-02] MEDS: FUROSEMIDE 40 MG/4 ML VIAL IV SCH (09:35)
[2022-12-02] MEDS: DILTIAZEM HCL 120 MG SR CAP PO SCH (09:35)
[2022-12-02] MEDS: DOXAZOSIN 2 MG TAB PO SCH ×2 (09:35→21:41)
[2022-12-02] MEDS: MONTELUKAST 10 MG TAB PO SCH (09:36)
[2022-12-02] MEDS: GABAPENTIN 300 MG CAP PO SCH ×3 (09:36→21:41)
[2022-12-02] MEDS: HYDRALAZINE HCL 25 MG TABLET PO SCH ×3 (09:36→21:41)
[2022-12-02] MEDS: CLOPIDOGREL 75 MG TABLET PO SCH (09:36)
[2022-12-02] MEDS: FOLIC ACID 1 MG TABLET PO SCH (09:36)
[2022-12-02] MEDS: cloNIDine HCL 0.1 MG TAB PO SCH ×2 (09:36→21:40)
[2022-12-02] MEDS: PANTOPRAZOLE 40MG TABLET PO SCH (09:37)
[2022-12-02] MEDS: APIXABAN 2.5 MG TABLET PO SCH ×2 (09:37→21:41)
[2022-12-02] MEDS: AMOX/K CLAV 875 MG TAB PO SCH ×2 (09:37→21:37)
[2022-12-02] MEDS: LEVOTHYROXINE SOD 0.1 MG TAB PO SCH (09:38)
[2022-12-02] MEDS ORDERED: POTASSIUM CL SA 10 MEQ TAB PO ONE ×3 (09:39→21:48)
[2022-12-02] MEDS: LIOTHYRONINE SOD 5 MCG TAB PO SCH ×2 (10:53→21:40)
[2022-12-02] MEDS: ISOSORBIDE MONO SR 60 MG TAB PO SCH (10:53)
--- NOTE | 2022-12-02 19:05 | HP ---
Date of Admission: 12/02/2022 Chief Complaint: Shortness of breath and COVID infection. History Of Present Illness: Ms. You is a very pleasant 82-year-old female patient with multiple comorbidities, has been sick for almost a week with cough, chest congestion and in last few days having some shortness of breath. She is coughing up some yellowish-colored mucus also in last few days. Patient reports that yesterday her daughter did home COVID test, which came back positive and I did advise her to come to emergency room, so she did come last night to emergency room. After she was evaluated, she was admitted to the hospital. Allergies: NO KNOWN ALLERGIES. Medications: Medications list reviewed. Review of Systems: Respiratory: As mentioned above. All other systems reviewed and negative. Past Medical History: Significant for TIA on September 07, 2021. Prior to that, she had stroke in the past, allergic rhinitis, hypothyroidism, hypertension, impaired fasting glucose, moderate persistent asthma, hypertension, hyperlipidemia, coronary artery disease, chronic diastolic heart failure, paroxysmal atrial fibrillation, gastroesophageal reflux disease, osteoarthritis, hyponatremia. Cardiac cath done on 05/31/2021 shows 60% stenosis of proximal LAD and OM1 and distal circumflex. Past Surgical History: Significant for cholecystectomy, appendectomy, rectocele repair, hysterectomy, bladder suspension, shoulder surgery, carpal tunnel surgery, and knee surgery. Family History: Father had heart disease. Mother had pancreatic cancer. Sister also had pancreatic cancer. Social History: Negative for alcohol use. Prior history of smoking, but not at present time. Physical Examination: Vital Signs: This morning, temperature 97.4, pulse 66, respiratory rate 16, blood pressure 175/72, oxygen saturation 96% on room air. Height 5 feet 2 inches, weight 248 pounds. General: Awake, alert, oriented, not in distress. HEENT: Head atraumatic, normocephalic. Conjunctivae nonerythematous. Sclerae white. Mouth, no thrush or edema noted. Ears/Nose, no mass, lesion, discharge noted. Neck: Supple. No JVD, lymph nodes, bruit, thyromegaly noted. Lungs: Presence of some rales noted in lower lung peoples. Not using any accessory muscles of respiration. Heart: Normal heart sounds, no murmur or gallop. Abdomen: Soft, bowel sounds normal. No guarding, rigidity, tenderness, mass, hepatosplenomegaly, distention, or bruit noted. Extremities: No leg edema. No calf tenderness. Skin: No rash, ulcer, cellulitis. Lymphatics: No lymph node enlargement in neck, supraclavicular, infraclavicular region. Neuro: No focal neurological deficit. Chest: Unremarkable. External Genitalia: Deferred. Rectal: Deferred. Laboratory Data: Yesterday, white count 2.9, hemoglobin 11.3, platelets 139. This morning, white count 2.8, hemoglobin 10.1, platelets 130. Yesterday, sodium 134, potassium 3, chloride 104, bicarb 24, BUN 14, creatinine 0.97, glucose 112. Liver function tests unremarkable. Lactic acid 1.4. ProBNP this morning is 350. Sodium 137, potassium 2.8, chloride 104, bicarb 26, BUN 13, creatinine 0.87, glucose 109. Influenza A and B test negative. COVID-19 test positive. Impression: 1. COVID-19 infection. 2. Acute bronchitis. 3. Congestive heart failure, chronic, diastolic, with acute exacerbation. 4. Hypokalemia. 5. Pancytopenia. 6. Hypertension. 7. Hyperlipidemia. 8. Coronary artery disease. 9. Hypothyroidism. 10. Gastroesophageal reflux disease. 11. Moderate persistent asthma. 12. Paroxysmal atrial fibrillation. 13. Chronic anticoagulation therapy. Plan: Admit patient to hospital for further evaluation and management of this problem. Patient is appropriate for inpatient and is expected to spend 2 midnights in hospital. For COVID-19 infection, she really does not require any further intervention at this point. She is maintaining adequate oxygenation and there is no COVID-19 related pneumonia that we could see at this time. She does have some bronchitis type of problem. She is coughing up some yellowish-colored mucus and we will start her on oral antibiotic Augmentin for that. For congestive heart failure, we will go ahead and start her on IV Lasix 40 mg daily and for hypokalemia, we will replace her electrolyte per protocol and monitor blood work. For pancytopenia, no need for further intervention except monitoring and we will repeat blood work tomorrow. For her hypertension, we will continue her antihypertensive medications per order. If necessary, make further adjustment on the medication. For hypothyroidism, continue her thyroid replacement therapy. For her atrial fibrillation, she is on chronic anticoagulation therapy with Eliquis. We will continue that and for coronary artery disease, she takes anti-platelet therapy, clopidogrel, and we will continue that as well. Details and plan of treatment discussed with her. I will see her tomorrow for followup. YOLY/JAMIL Voice ID: [id number] [email or web address]
[2022-12-02] MEDS ORDERED: ATORVASTATIN 80 MG TAB PO SCH (21:00)
[2022-12-03] MEDS: ALBUTEROL 2.5 MG/3 ML NEB SOL NEB SCH ×2 (01:55→07:34)
[2022-12-03] MEDS: KCL 20 MEQ/100 mL IVPB 20 MEQ/100 ML BAG IV SCH (05:59)
[2022-12-03] MEDS: METOPROLOL TAR 25 MG TAB PO SCH (06:36)
[2022-12-03] MEDS: LEVOTHYROXINE SOD 0.1 MG TAB PO SCH (06:37)
[2022-12-03 07:58] LABS: Potassium 3.8 mmol/L (3.5-5.1)
[2022-12-03] MEDS: FUROSEMIDE 40 MG/4 ML VIAL IV SCH (09:02)
[2022-12-03] MEDS: PANTOPRAZOLE 40MG TABLET PO SCH (09:03)
[2022-12-03] MEDS: DILTIAZEM HCL 120 MG SR CAP PO SCH (09:03)
[2022-12-03] MEDS: AMOX/K CLAV 875 MG TAB PO SCH (09:03)
[2022-12-03] MEDS: APIXABAN 2.5 MG TABLET PO SCH (09:03)
[2022-12-03] MEDS: GABAPENTIN 300 MG CAP PO SCH (09:03)
[2022-12-03] MEDS: FOLIC ACID 1 MG TABLET PO SCH (09:03)
[2022-12-03] MEDS: LIOTHYRONINE SOD 5 MCG TAB PO SCH (09:04)
[2022-12-03] MEDS: ISOSORBIDE MONO SR 60 MG TAB PO SCH (09:04)
[2022-12-03] MEDS: LOSARTAN POTASSIUM 50 MG TABLET PO SCH (09:04)
[2022-12-03] MEDS: MONTELUKAST 10 MG TAB PO SCH (09:04)
[2022-12-03] MEDS: cloNIDine HCL 0.1 MG TAB PO SCH (09:04)
[2022-12-03] MEDS: HYDRALAZINE HCL 25 MG TABLET PO SCH (09:04)
[2022-12-03] MEDS: CLOPIDOGREL 75 MG TABLET PO SCH (09:04)
[2022-12-03] MEDS: DOXAZOSIN 2 MG TAB PO SCH (09:04)
--- NOTE | 2022-12-03 09:34 | RAD REPORT ---
EXAM DESCRIPTION: RAD - Chest Single View - 12/03/2022 9:25 am CLINICAL HISTORY: COVID, CHF COMPARISON: 12/01/2022 FINDINGS: Lines: None. Lungs: Diffuse prominence of the pulmonary interstitium. Pleural: No significant pleural effusions or pneumothorax. Cardiac: Cardiomegaly. Mediastinum: Within normal limits. Bones: No acute fractures. Other: None IMPRESSION: Mild pulmonary edema similar to 12/01/2022.
[2022-12-03 10:52] VITALS: O2SAT 96
[2022-12-03 12:23] VITALS: BP 150/65; TEMP 97.8
--- NOTE | 2022-12-03 13:58 | DS ---
Date of Discharge: 12/03/2022 Disposition: Discharged to go home. Physical Examination: HEENT: Unremarkable. Lungs: Clear to auscultation. No wheezing. No rales. Not in respiratory distress. Heart: Sounds normal. Abdomen: Soft. Bowel sounds normal. No guarding, rigidity, tenderness, distention. Extremities: No leg edema. Discharge Medications And Instructions: 1.Continue all prior home medications. 2.Start Augmentin 875 mg take 1 tablet by mouth 2 times a day with food for 1 week and prescription will be sent to [facility] from office. 3.Follow up at office a week after next and patient to call office for appointment. Hospital Course: This is an 82-year-old very pleasant female patient admitted to the hospital after she came into emergency room with complaints of shortness of breath and COVID-19 infection. Please s ee dictated H and P for more information. Patient had cough, congestion, coughing up some colored mu cus for almost a week or so and she was having some shortness of breath with this, so she was asked t o come to the emergency room. After she was evaluated in the ER, she was admitted to the hospital. Her chest x-ray did not show any COVID-19 related pneumonia. Influenza A and B test was negative but COVID-19 test was positive. Chest x-ray did not show any infiltrate, but showed some increased inte rstitial marking consistent with congestive heart failure. Patient was given IV Lasix. Her room oxy gen saturation has remained normal without using any supplemental oxygen, and this morning when I saw her she was feeling much better and she reported that she feels like she is strong and ready to go [facility]. Medically, she is stable for discharge. Repeat chest x-ray done today is unchanged from admiss ion chest x-ray and clinically her lung examination is clear, so no concern and no need for ongoing h ospitalization. Final Diagnoses: 1.COVID-19 infection. 2.Acute bronchitis. 3.Congestive heart failure, chronic, diastolic, with acute exacerbation. 4.Hypokalemia. 5.Pancytopenia. 6.Hypertension. 7.Hyperlipidemia. 8.Coronary artery disease. 9.Hypothyroidism. 10.Gastroesophageal reflux disease. 11.Moderate persistent asthma. 12.Paroxysmal atrial fibrillation. 13.Chronic anticoagulation therapy. Laboratory Data: Upon admission, white count 2.9, hemoglobin 11.3, platelets 139, and yesterday whit e count 2.8, hemoglobin 10.1, platelets 130. Upon admission, sodium 134, potassium 3, chloride 104, bicarb 24, BUN 14, creatinine 0.97, glucose 112. Liver function tests unremarkable. Lactic acid 1.4 . ProBNP yesterday was 350 with sodium 137, potassium 2.8, chloride 104, bicarb 26, BUN 13, creatini ne 0.87, glucose 109. Potassium was corrected and last potassium level was normal. YOLY/MODL Voice ID: [id number] Report ID: [id number]
--- NOTE | 2022-12-06 17:30 | EKG ---
Test Date: 2022-12-01 Test Time: 20:16:58 Yarn Hauler: DEDRA MEASUREMENT RESULTS: Intervals: Rate: 57 ID: [id number] QRSD: 84 QT: 432 QTc: 420 [place]: P: 62 ID: [id number] QRS: 24 T: 86 INTERPRETIVE STATEMENTS: Sinus bradycardia with 1st degree AV block Nonspecific T wave abnormality Abnormal ECG Compared to ECG 07/14/2022 19:12:10 T-wave abnormality now present Sinus rhythm no longer present Ventricular premature complex(es) no longer present Myocardial infarct finding no longer present Electronically Signed On 12-06-22 17:18:45 [employer]ING SUPERVISOR by Miguel Colbert
== END 2022-12-03 13:03 | disposition home or self-care (01) | DRG 177 ==
LOC: ER 20:09 → 4TH 23:27
PROVIDERS: ADMIT Internal Medicine; ATTEND Internal Medicine
DX: U07.1 COVID-19 (principal); I50.33 Acute on chronic diastolic (congestive) heart failure; J44.0 Chronic obstructive pulmonary disease with (acute) lower respiratory infection; D61.818 Other pancytopenia; I11.0 Hypertensive heart disease with heart failure; J20.9 Acute bronchitis, unspecified; E03.9 Hypothyroidism, unspecified; E78.5 Hyperlipidemia, unspecified; I48.0 Paroxysmal atrial fibrillation; E87.6 Hypokalemia; J45.40 Moderate persistent asthma, uncomplicated; K21.9 Gastro-esophageal reflux disease without esophagitis; I25.10 Atherosclerotic heart disease of native coronary artery without angina pectoris; I25.2 Old myocardial infarction; Z79.82 Long term (current) use of aspirin; Z79.01 Long term (current) use of anticoagulants; Z86.73 Personal history of transient ischemic attack (TIA), and cerebral infarction without residual deficits; Z90.49 Acquired absence of other specified parts of digestive tract; Z79.890 Hormone replacement therapy; Z79.899 Other long term (current) drug therapy; Z90.710 Acquired absence of both cervix and uterus
CPT/HCPCS: 0240U; 36415; 71045; 80048; 80053; 82947; 83605; 83880; 84132; 85025; 85610; 85730; 87040; 93005; 94640; 94760; 99285; J1940; J3480; J7040; J7613

== ENCOUNTER 2023-02-03 21:54 | Inpatient (IN) | payer OTHER, MEDICARE ==
--- OUTSIDE RECORDS SUMMARY | 2023-02-03 22:09 | XMS REPORT | Continuity of Care Document ---
:1940 Author Organization [facility] t Address [address] [place] [address] Care Team Providers Name Role Phone Paz [...] STROKE STROKE 2 08:33:00 l Active 00:00: [place] 11/23/2014 00 [facility] LFLT LFLT Diagnosis Active 2015-02-19 Mem oria TRANSFER#5 TRANSFER#5 11-23 08:34:00 l 34 34 Active 00:00: Elia 11/23/2014 00 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 [facility] left knee [facility] [id number] [place], [place] [id number] joint, Spirit knee, left [facility] [id number] [place] Problem Com mon stinal Spirit fistula [facility] [id number] H/O: CVA Problem Comm on (cerebrova [facility] scular [facility] accident) [facility] History of History of Problem Resolve UT 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 Recurrent Problem Com mon UTI [facility] [id number] Functional Problem Co mmon urinary Spirit incontinen [facility] ce [facility] Renal Renal Problem Active UT disease disease [...] of tion of COVID-19 COVID-19 vaccine vaccine Hypertensi Hypertens Problem Active 2017-06-17 Char ve heart adrienne heart 02:45:15 Matty chronic chronic kidney kidney disease, disease, benign, benign, with heart with heart failure failure and with and with chronic chronic kidney kidney disease disease stage I stage I through through stage IV, stage IV, or or unspecifie unspecifie d d Active Problem 06/17/2017 [facility] 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, e 02:45:15 l not disorder, [place] elsewhere not classified elsewhere classified Active Problem 06/17/2017 [facility] Urinary Urinary Problem Active 2017-06-17 Me moria tract tract 02:45:15 l infection, infection, He rmann site not site not specified specified Active Problem 06/17/2017 [facility] Unspecifie Unspecifi Problem Active 2017-06-17 Memoria d ed 02:45:15 l arthropath arthropath He rmann y, site y, site unspecifie unspecifie d d Active Problem 06/17/2017 [facility] Frequency Problem Active 2017-06-17 Me moria of Frequency 02:45:15 l micturitio of Epifanio n n micturitio n Active Problem 06/17/2017 [facility] Morbid Morbid Problem Active 2017-06-17 Alek bethany obesity obesity 02:45:15 l Active Elia Problem 06/17/2017 [facility] Female Female Problem Active 2017-06-17 Alek bethany genuine genuine 02:45:15 l stress stress Elia incontinen incontinen ce ce Active Problem 06/17/2017 [facility] Nonspecifi Nonspecif Problem Active 2017-06-17 Memoria c abnormal ic 02:45:15 l electrocar abnormal Herm alexandra diogram electrocar (ECG) diogram (EKG) (ECG) (EKG) Active Problem 06/17/2017 [facility] Palpitatio Palpitati Problem Active 2017-06-17 Memoria ns ons Active 02:45:15 l Problem Elia 06/17/2017 [facility] Other Other Problem Active 2017-06-17 Alek bethany specified specified 02:45:15 l cardiac cardiac Elia dysrhythmi dysrhythmi as as Active Problem 06/17/2017 [facility] Upper Upper Problem Active 2017-06-17 Alek bethany respirator respirator 02:45:15 l y tract y tract [place] hypersensi hypersensi tivity tivity reaction, reaction, site site unspecifie unspecifie d d Active Problem 06/17/2017 [facility] Unspecifie Problem Active 2017-06-17 M emoria d Unspecifie 02:45:15 l transient d [place] cerebral transient ischemia cerebral ischemia Active Problem 06/17/2017 [facility] Personal Personal Problem Active 2017-06-17 Memoria history of history of 02:45:15 l fall fall Elia Active Problem 06/17/2017 [facility] Acute Acute Problem Active 2017-06-17 Memor ia upper upper 02:45:15 l respirator respirator He rmann y y infections infections of of unspecifie unspecifie d site d site Active Problem 06/17/2017 [facility] CVA CVA Diagnosis Active 2015-02-19 Mem oria Active 08:33:00 l [facility] Gastroesop Gastroeso Problem Resolve 2014-11-28 Memoria hageal phageal d 15:24:41 l reflux reflux Elia disease disease (disorder) (disorder) Resolved Problem 11/28/2014 [facility] Hyperchole Problem Resolve 2014-11-28 Memoria sterolemia Hyperchole d 15:24:41 l (disorder) sterolemia He rmann (disorder) Resolved Problem 11/28/2014 [facility] Hyperlipid Hyperlipi Problem Resolve 2014-11-28 Memoria emia demia d 15:24:41 l (disorder) (disorder) He rmann Resolved Problem 11/28/2014 [facility] Hypertensi Hypertens Problem Resolve 2014-11-28 Memoria ve adrienne d 15:24:41 l disorder, disorder, Herm alexandra systemic systemic arterial arterial (disorder) (disorder) Resolved Problem 11/28/2014 [facility] Hypothyroi Hypothyro Problem Resolve 2014-11-28 Memoria dism idism d 15:24:41 l (disorder) (disorder) He rmann Resolved Problem 11/28/2014 [facility] Atrial Atrial Problem Active 2017-06-17 Alek bethany fibrillati fibrillati 02:45:15 l on on Active Elia Problem 06/17/2017 [facility] Personal Personal Problem Active 2017-06-17 Memoria history of history of 02:45:15 l transient transient Herm alexandra ischemic ischemic attack attack [TIA], and [TIA], and cerebral cerebral infarction infarction without without residual residual deficits deficits Active Problem 06/17/2017 [facility] Palpitatio Palpitati Problem Active 2017-06-17 Memoria ns ons Active 02:45:15 l Problem [place] 06/17/2017 [facility] Transient Transient Problem Active 2017-06-17 Memoria cerebral cerebral 02:45:15 l ischemic ischemic Epifanio n attack, attack, unspecifie unspecifie d d Active Problem 06/17/2017 [facility] Bradycardi Bradycard Problem Active 2017-06-17 Memoria a, ia, 02:45:15 l unspecifie unspecifie He rmann d d Active Problem 06/17/2017 [facility] Personal Personal Problem Active 2017-06-17 Memoria history of history of 02:45:15 l transient transient Herm alexandra ischemic ischemic attack attack (TIA), and (TIA), and cerebral cerebral infarction infarction without without residual residual deficits deficits Active Problem 06/17/2017 [facility] History of History Problem Active 2017-06-17 Memoria falling of falling 02:45:15 l Active Elia Problem 06/17/2017 [facility] Abnormal Abnormal Problem Active 2017-06-17 Memoria electrocar electrocar 02:45:15 l diogram diogram [place] [ECG] [ECG] [EKG] [EKG] Active Problem 06/17/2017 [facility] Arthropath Problem Active 2017-06-17 M emoria y, Arthropath 02:45:15 l unspecifie y, Epifanio n d unspecifie d Active Problem 06/17/2017 [facility] Major Major Problem Active 2017-06-17 Memor ia depressive depressive 02:45:15 l disorder, disorder, Herm alexandra single single episode, episode, unspecifie unspecifie d d Active Problem 06/17/2017 [facility] Chest Chest Problem Active 2017-06-17 Memor ia pain, pain, 02:45:15 l unspecifie unspecifie He rmann d d Active Problem 06/17/2017 [facility] Shortness Shortness Problem Active 2017-06-17 Memoria of breath of breath 02:45:15 l Active [place] Problem 06/17/2017 [facility] Constipati Constipat Problem Active 2017-06-17 Memoria on, ion, 02:45:15 l unspecifie unspecifie He rmann d d Active Problem 06/17/2017 [facility] Hypothyroi Problem Active 2017-06-17 M emoria dism, Hypothyroi 02:45:15 l unspecifie dism, Epifanio n d unspecifie d Active Problem 06/17/2017 [facility] Hyperlipid Hyperlipi Problem Active 2017-06-17 Memoria emia, demia, 02:45:15 l unspecifie unspecifie He rmann d d Active Problem 06/17/2017 [facility] Chronic Chronic Problem Active 2017-06-17 Me moria kidney kidney 02:45:15 l disease, disease, Epifanio n unspecifie unspecifie d d Active Problem 06/17/2017 [facility] Insomnia, Insomnia, Problem Active 2017-06-17 Memoria unspecifie unspecifie 02:45:15 l d d Active [place] Problem 06/17/2017 [facility] Nonrheumat Nonrheuma Problem Active 2017-06-17 Memoria ic mitral tic mitral 02:45:15 l (valve) (valve) [place] insufficie insufficie ncy ncy Active Problem 06/17/2017 [facility] Paroxysmal Problem Active 2017-06-17 M emoria atrial Paroxysmal 02:45:15 l fibrillati atrial Epifanio n on fibrillati on Active Problem 06/17/2017 [facility] Occlusion Problem Active 2017-06-17 Me moria and Occlusion 02:45:15 l stenosis and Elai 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 Active Problem 06/17/2017 [facility] Chronic Chronic Problem Active 2017-06-17 M emoria kidney kidney 02:45:15 l disease, disease, Epifanio n Stage III Stage III (moderate) (moderate) Active Problem 06/17/2017 [facility] Congestive Congestiv Problem Active 2017-06-17 Memoria heart e heart 02:45:15 l failure, failure, Epifanio n unspecifie unspecifie d d Active Problem 06/17/2017 [facility] Hypertensi Hypertens Problem Active 2017-06-17 Memoria on ion 02:45:15 l essential essential Herm alexandra benign benign Active Problem 06/17/2017 [facility] Occlusion Occlusion Problem Active 2017-06-17 Memoria and and 02:45:15 l stenosis stenosis Epifanio n of carotid of carotid artery artery without without mention of mention of cerebral cerebral infarction infarction Active Problem 06/17/2017 [facility] Insomnia, Insomnia, Problem Active 2017-06-17 Memoria unspecifie unspecifie 02:45:15 l d d Active Elia Problem 06/17/2017 [facility] 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 02:45:15 l disorders disorders Herm alexandra Active Problem 06/17/2017 [facility] Other and Other and Problem Active 2017-06-17 Memoria unspecifie unspecifie 02:45:15 l d d [place] hyperlipid hyperlipid emia emia Active Problem 06/17/2017 [facility] Unspecifie Unspecifi Problem Active 2017-06-17 Memoria d ed 02:45:15 l hypothyroi hypothyroi He rmann dism dism Active Problem 06/17/2017 [facility] Obesity, Obesity, Problem Active 2017-06-17 Memoria unspecifie unspecifie 02:45:15 l d d Active [place] Problem 06/17/2017 [facility] Other Other Problem Active 2017-06-17 Memor ia malaise malaise 02:45:15 l and and [place] fatigue fatigue Active Problem 06/17/2017 [facility] Shortness Shortness Problem Active 2017-06-17 Memoria of breath of breath 02:45:15 l Active [place] Problem 06/17/2017 [facility] Chest Chest Problem Active 2017-06-17 Alek bethany pain, pain, 02:45:15 l unspecifie unspecifie He rmann d d Active Problem 06/17/2017 [facility] Chronic Chronic Problem Active 2017-06-17 Me moria diastolic diastolic 02:45:15 l (congestiv (congestiv He rmann e) heart e) heart failure failure Active Problem 06/17/2017 [facility] Unspecifie Unspecifi Problem Active 2017-06-17 Memoria d ed 02:45:15 l constipati constipati He rmann on on Active Problem 06/17/2017 [facility] Hypertensi Hypertens Diagnosis Active 2017-06-17 Memoria ve heart adrienne heart 02:45:15 l and and [place] chronic chronic kidney kidney disease disease with heart with heart failure failure and stage and stage 1 through 1 through stage 4 stage 4 chronic chronic kidney kidney disease, disease, or or unspecifie unspecifie d chronic d chronic kidney kidney disease disease Active Diagnosis 06/17/2017 [facility] Impaired Impaired Problem Active 2017-06-17 Memoria fasting fasting 02:45:15 l blood blood [place] sugar sugar Active Problem 06/17/2017 [facility] Overactive Overactiv Problem Active 2017-06-17 Memoria bladder e bladder 02:45:15 l Active [place] Problem 06/17/2017 [facility] Incontinen Problem Active 2017-06-17 M emoria ce without Incontinen 02:45:15 l sensory ce without Sunni nn awareness sensory awareness Active Problem 06/17/2017 [facility] Encounter Encounter Problem Active 2017-06-17 Memoria for for 02:45:15 l screening screening Herm alexandra for for diabetes diabetes mellitus mellitus Active Problem 06/17/2017 [facility] Retention Retention Problem Active 2017-06-17 Memoria of urine, of urine, 02:45:15 l unspecifie unspecifie He rmann d d Active Problem 06/17/2017 [facility] Allergies, Adverse Reactions, Alerts Allergy [...] - [facility] enzyme enzyme St inhibito inhibito [facility] Nembutal Allergy Active [facility] to drug [facility] (finding ans ) Family History Family Member Diagnosis Comments Start Date Stop Date Source Mother Family history of [facility] pancreatic cancer Father Family history of cardiac [facility] disorder Social History Social Habit Start Date Stop Date Quantity Comments Source History of Common Spirit - Tobacco Use [facility] Tobacco use and 2021-01-07 2021-01-07 Smokeless tobacco [facility] 00:00:00 00:00:00 non-user Hospital Smoking 2016-09-27 2016-09-27 [facility] 00:00:00 00:00:00 Sex [birth year] [facility] 00:00:00 00:00:00 Hospital Smoking Status Start Date Stop Date Source Former Smoker 2022-10-27 00:00:00 2022-10-27 00:00:00 Common S pirit - [facility] Social History [facility] Medications Ordered Filled Start Stop Current Ordering Indication Dosage Frequency Signature Comments Components Source Medication Medication Date Date Medication? Clinician (SIG) Name Name Lidocaine Lidocaine No 10mg Com mon 10-27 [facility] 00:00: - [facility] 00 [facility] Kenalog Kenalog No 40mg Common (Triamcinol (Triamcinol 10-27 S pirit one) one) 00:00: - [facility] 00 [facility] Nitrofurant Nitrofurant 2021-10- No 1{capsu QD Nitrofuran [...] 1{capsu BID Nitrofuran oin Monohyd oin Monohyd 008-22 le_with toin Macro 100 Macro 100 00:00: [...] Hospita 45 times a l day. diltiazem 2020-0 Yes 120mg QD Take 120 Met hodi [...] tablet 45 l gabapentin 2020-0 Yes 200mg Q.[id number] Take 200 Methodi (NEURONTIN) 3-21 [id number] mg by s t 100 mg 14:14: [...] daily. Hospita enteric 45 l coated tablet levothyroxi 2020-0 Yes 112ug QD Take 112 M ethodi ne 3-[address] (SYNTHROID) 14:14: mouth Hospi ta 112 mcg 45 daily. l tablet doxazosin 2020-0 Yes Take by Metho di (CARDURA) 4 3-[address] MG tablet 14:14: Taking 1/2 Ho spita 45 tablet in l the morning and 1 tablet in the evening losartan 2020-0 Yes 50mg Q.5D Take 50 mg Met hodi (COZAAR) 50 3-[address] MG tablet 14:14: (two) Hospita 45 times a l day. diltiazem 2020-0 Yes 120mg QD Take 120 Met hodi [...] tablet 45 l gabapentin 2020-0 Yes 200mg Q.[id number] Take 200 [facility] (NEURONTIN) 3-21 [id number] mg by s t 100 mg 14:14: [...] daily. Hospita enteric 45 l coated tablet levothyroxi 0 Yes 112ug QD Take 112 M ethodi ne 3-[address] (SYNTHROID) 14:14: mouth Hospi ta 112 mcg 45 daily. l tablet doxazosin 0 Yes Take by Metho di (CARDURA) 4 3-[address] MG tablet 14:14: Taking 1/2 Ho spita 45 tablet in l the morning and 1 tablet in the evening losartan 0 Yes 50mg Q.5D Take 50 mg Met hodi (COZAAR) 50 3-[address] MG tablet 14:14: (two) Hospita 45 times a l day. diltiazem 2020-0 Yes 120mg QD Take 120 Met hodi [...] tablet 45 l gabapentin 2020-0 Yes 200mg Q.[id number] Take 200 [facility] (NEURONTIN) 3-21 [id number] mg by s t 100 mg 14:14: [...] mouth 2 (two) times a day. clonIDINE 202-0 Yes .1mg Q.5D Take 1 Method i (CATAPRES) 3-[address] 0.1 MG 00:00: (0.1 mg Hospita tablet 00 total) by l mouth 2 (two) times a day. omeprazole Yes 20mg Q.5D Take 1 Metho di (PriLOSEC) 3-[address] 20 MG 00:00: (20 mg Hospita capsule 00 total) by l mouth 2 (two) times a day. amLODIPine amLODIPine Yes MUNACHI 1 QD TAKE 1 UT Besylate 5 Besylate 5 9-25 OKPALA TABLET Physici MG Oral MG Oral 00:00: DOG TRAINER DAILY. ans Tablet Tablet 00 Gabapentin Gabapentin [...] tablet M emoria 8-17 l 00:00: Elia 00 Eliquis 2017 Yes Melissa Ali 1 tablet M emoria 8-17 l 00:00: Eliquis Yes Melissa Ali 1 tablet M emoria 8-17 l 00:00: Edarbyclor Edarbyclor 2017 Yes MUNACHI 1 QD TAKE 1 UT 40-25 MG 40-25 MG 4-20 OKPALA TABLET BY Phys[facility] Oral Tablet Oral Tablet 00:00: DOG TRAINER MOUTH ONCE ans 00 DAILY Edarbyclor 2017 Yes Melissa Ali 1 tablet Memoria 3-28 l 00:00: Edarbyclor 2017 Yes Melissa Ali 1 tablet Memoria 3-28 l 00:00: Edarbyclor 2017 Yes Melissa Ali 1 tablet Memoria 3-28 l 00:00: Edarbyclor 2017 Yes Melissa Ali 1 tablet Memoria 3-13 l 00:00: Edarbyclor 2017 Yes Melissa Ali 1 tablet Memoria 3-13 l 00:00: [place] 00 Edarbyclor 2017 Yes Melissa Ali 1 tablet Memoria 3-13 l 00:00: [place] 00 Tikosyn 2017 No Melissa Ali TAKE ONE M emoria 3-01 CAPSULE BY l 03:45: MOUTH Elia 56 TWICE A DAY Tikosyn 2017 No Melissa Ali TAKE ONE M emoria 3-01 CAPSULE BY l 03:45: MOUTH [place] 56 TWICE A DAY Tikosyn 2017 No Melissa Ali TAKE ONE M emoria 3-01 CAPSULE BY l 03:45: MOUTH [place] 56 TWICE A DAY Dofetilide 2017 Yes Melissa Ali 1 capsule Memoria 2-28 l 00:00: [place] 00 Dofetilide Yes Melissa Ali 1 capsule Memoria 2-28 l 00:00: Dofetilide Yes Melissa Ali 1 capsule Memoria 2-28 l 00:00: Elia 00 Doxazosin 2015-10 No Melissa Ali TAKE ONE Memoria Mesylate 1-19 TABLET BY l 03:48: MOUTH [place] 47 DAILY Doxazosin 2015-10 No Melissa Ali TAKE ONE Memoria Mesylate 1-19 TABLET BY l 03:48: MOUTH Elia 47 DAILY Doxazosin 2015-10 No Melissa Salmon TAKE ONE Memoria Mesylate 1-19 TABLET BY l 03:48: MOUTH Elia 47 DAILY Cipro Yes Vaseem Ali 1 tablet Me moria 6-24 l 00:00: Elia 00 Cipro 0 Yes Vaseem Ali 1 tablet Me moria 6-24 l 00:00: [place] 00 Cipro Yes Vaseem Ali 1 tablet Me moria 6-24 l 00:00: [place] 00 Pravastatin Pravastatin Yes MUNACHI 1 QD TAKE 1 UT Sodium 40 Sodium 40 7-31 OKPALA TABLET P hysici MG Oral MG Oral 00:00: DOG TRAINER DAILY. ans Tablet Tablet 00 Viteyes Viteyes Yes MUNACHI 1 QD TAKE 1 UT Complete Complete 3-17 OKPALA CAPSULE Ph ysici Oral Oral 00:00: DOG TRAINER DAILY. ans Capsule Capsule 00 Liothyronin Liothyronin Yes MUNACHI 1 QD TAKE 1 UT e Sodium 5 e Sodium 5 3-17 OKPALA TABLET Physici MCG Oral MCG Oral 00:00: DOG TRAINER DAILY. ans Tablet Tablet 00 Doxazosin Doxazosin Yes MUNACHI 1 Q0.5D TAKE 1 UT Mesylate 4 Mesylate 4 3-17 OKPALA TABLET Physici MG Oral MG Oral 00:00: DOG TRAINER TWICE ans Tablet Tablet 00 DAILY Warfarin No Notes: Char 2-04 Nurse to l 18:03: ensure Elia 00 documentat ion of patient education per anticoagul ation policy. Avoid large intake of vitamin-K containing foods diet. (Same As: Coumadin) Warfarin No Notes: Char 2-04 Nurse to l 18:03: ensure Elia 00 documentat ion of patient education per anticoagul ation policy. Avoid large intake of vitamin-K containing foods diet. (Same As: Coumadin) Warfarin No Notes: Char 2-04 Nurse to l 18:03: ensure [place] 00 documentat ion of patient education per [...] tab, PO, l tablet 17:52: Daily, # [place] 00 30 tab, 0 Refill(s) warfarin 5 Yes 5 mg, PO, Me moria mg oral 2-04 Daily, # 2 l tablet 17:52: tab, 0 [place] 00 Refill(s) Atenolol 25 Yes 12.5 mg [...] tab, PO, l tablet 17:52: Daily, # [place] 00 30 tab, 0 Refill(s) warfarin 5 [...] tab, PO, l tablet 17:52: Daily, # [place] 00 30 tab, 0 Refill(s) warfarin 5 [...] a 2-04 Same as l 15:00: Diovan [place] 00 valsartan No Notes: Memori a 2-04 Same as l 15:00: Diovan Elia 00 Protonix No Notes: Memoria 2-03 Tablet l 22:30: should not Elia 00 be chewed or crushed. (Same as: Protonix) Protonix No Notes: Memoria 2-03 Tablet l 22:30: should not Elia 00 be chewed or crushed. (Same as: Protonix) Protonix No Notes: Memoria 2-03 Tablet l 22:30: should not [place] 00 be chewed or crushed. (Same as: Protonix) Atenolol No Notes: Memoria 2-03 (Same l 15:00: As:Tenormi [place] 00 n) valsartan No 320 mg, Memor ia 2-03 Route: PO, l 15:00: Drug form: Elia 00 TAB, Daily, Dosing Weight 114.318, kg, Start date: 11/25/14 9:00:00, Duration: 30 day, Stop date: 12/24/14 9:00:00 Atenolol No Notes: Memoria 2-03 (Same l 15:00: As:Tenormi [place] 00 n) valsartan No 320 mg, Memor ia 2- Route: PO, l 15:00: Drug form: Elia 00 TAB, Daily, Dosing Weight 114.318, kg, Start date: 11/25/14 9:00:00, Duration: 30 day, Stop date: 12/24/14 9:00:00 Atenolol No Notes: Memoria 2-03 (Same l 15:00: As:Tenormi Elia 00 n) valsartan No 320 mg, Memor ia 2- Route: PO, l 15:00: Drug form: Elia 00 TAB, Daily, Dosing Weight 114.318, kg, Start date: 11/25/14 9:00:00, Duration: 30 day, Stop date: 12/24/14 9:00:00 Thyroxine No Notes: Memori a 2-03 Take 1 l 12:30: hour [place] 00 before or 2 hours after meal; [...] a 2-03 Take 1 l 12:30: hour [place] 00 before or 2 hours after meal; Enteral feeds may interefere with the absorption of this medication . (Same as:Levothr oid, Synthroid) heparin, No Notes: Memoria porcine 2-03 porcine l 04:00: heparin Elia 00 Plavix No Notes: Memoria 2-03 (Same As: l 04:00: Plavix) Elia 00 heparin, No Notes: Memoria porcine 2-03 porcine l 04:00: heparin Elia 00 Plavix No Notes: Memoria 2-03 (Same As: l 04:00: Plavix) [place] 00 heparin, No Notes: Memoria porcine 2-03 porcine l 04:00: heparin Elia 00 Plavix No Notes: Memoria 2-03 (Same As: l 04:00: Plavix) Tylenol No Notes: Do Memor ia 2-03 [...] Lipitor) Bupropion No Notes: (Do Me moria 2-02 not crush) l 23:00: (Same As: Wellbutrin SR) valsartan No 40 mg, Memori a 2-02 Route: PO, l 23:00: BID, Dosing Weight 114.318, kg, Start date: 11/24/14 17:00:00, Duration: 30 day, Stop date: 12/24/14 9:00:00 Bupropion 0 No Notes: (Do Me moria 2-02 not crush) l 23:00: (Same As: Wellbutrin SR) valsartan 0 No 40 mg, Memori a 2-02 Route: PO, l 23:00: BID, Dosing Weight 114.318, kg, Start date: 11/24/14 17:00:00, Duration: 30 day, Stop date: 12/24/14 9:00:00 Bupropion 2014-0 No Notes: (Do Me moria 2-02 not crush) l 23:00: (Same As: Wellbutrin SR) valsartan 0 No 40 mg, Memori a 2-02 Route: PO, l 23:00: BID, Dosing Weight 114.318, kg, Start date: 11/24/14 17:00:00, Duration: 30 day, Stop date: 12/24/14 9:00:00 Triiodothyr No Notes: Alek bethany onine 11-24 (Same as: l 21:35: Cytomel) Triiodothyr No Notes: Alek bethany onine 11-24 (Same as: l 21:35: Cytomel) Triiodothyr No [...] tab, PO, l MEQ 20:47: Daily, 0 [place] Extended 00 Refill(s) Release Tablet omeprazole Yes [...] Yes 100 Memori a ne 100 mcg 202 microgram l (0.1 mg) 20:47: = 1 tab, Sunni nn oral tablet 00 PO, QAM, # 30 tab, 0 Refill(s) doxazosin 4 Yes 4 mg = 1 Me moria mg oral 2-02 tab, PO, l tablet 20:47: Daily, # [place] 00 30 tab, 0 Refill(s) valsartan No [...] tab, PO, l Tablet 20:47: Daily, # [place] 00 30 tab, 0 Refill(s) liothyronin Yes 10 Memori a e 5 mcg 2-02 microgram l oral tablet 20:47: = 2 tab, He rmann 00 PO, QAM, # 30 tab, 0 Refill(s) Fenofibrate No 160 mg = 1 Memoria 160 MG Oral 2-02 tab, PO, l Tablet 20:47: Daily, # [place] 00 30 tab, 0 Refill(s) Zolpidem Yes [...] tab, PO, l tablet 20:47: Daily, # [place] 00 30 tab, 0 Refill(s) Atenolol No [...] tab, PO, l Tablet 20:47: Daily, # [place] [Lasix] 00 30 tab, 0 Refill(s) spironolact No 25 mg = 1 M emoria one 25 mg 2-02 tab, PO, l oral tablet 20:47: Daily, # He rmann 00 60 tab, 0 Refill(s) Potassium No 20 mEq = 1 Me moria Chloride 20 2-02 tab, PO, l MEQ 20:47: Daily, 0 [place] Extended 00 Refill(s) Release Tablet omeprazole Yes 40 mg = 1 Me moria 40 mg oral 2-02 cap, PO, l delayed 20:47: Daily, # Epifanio n release 00 30 cap, 0 capsule Refill(s) Metolazone No 5 mg = 1 Mem oria 5 MG Oral 2-02 tab, PO, l Tablet 20:47: Daily, # [place] 00 30 tab, 0 Refill(s) liothyronin Yes 10 Memori a e 5 mcg 2-02 microgram l oral tablet 20:47: = 2 tab, He rmann 00 PO, QAM, # 30 tab, 0 Refill(s) Fenofibrate No 160 mg = 1 Memoria 160 MG Oral 2-02 tab, PO, l Tablet 20:47: Daily, # [place] 00 30 tab, 0 Refill(s) Zolpidem Yes [...] Albuterol No 2 puff, Memor ia 0.09 02 INHALATION l MG/ACTUAT 20:47: , Q6H, as Her irvin Metered 00 needed for Dose wheezing, Inhaler # 17 gm, 0 [Ventolin] Refill(s) levothyroxi Yes 100 Memori a ne 100 mcg 02 microgram l (0.1 mg) 20:47: = 1 [...] tab, PO, l tablet 20:47: Daily, # [place] 00 30 tab, 0 Refill(s) Triiodothyr No Notes: Alek bethany onine 11-24 (Same as: l 20:09: Cytomel) Triiodothyr No Notes: Alek bethany onine 11-24 (Same as: l 20:09: Cytomel) Triiodothyr No Notes: Alek bethany onine 11-24 (Same as: l 20:09: Cytomel) Reglan No Notes: Memoria 2- (Same as: l 17:44: Reglan) Reglan No Notes: Memoria 2- (Same as: l 17:44: Reglan) Reglan No Notes: Memoria 2-02 (Same as: l 17:44: Reglan) [place] 00 Magnesium 2015-0 No 2 gm, 50 Alek bethany Sulfate 2-02 mL, Route: l 17:27: IVPB, Drug Elia form: INJ, ONCE, Dosing Weight 114.318, kg, Total dose = 2 gm, Start date: 11/24/14 11:27:00, Duration: 1 doses or times, Stop date: 11/24/14 11:27:00 Magnesium 2015-0 No 2 gm, 50 Alek bethany Sulfate 2-02 mL, Route: l 17:27: IVPB, Drug [place] 00 form: INJ, ONCE, Dosing Weight 114.318, kg, Total dose = 2 gm, Start date: 11/24/14 11:27:00, Duration: 1 doses or times, Stop date: 11/24/14 11:27:00 Magnesium 2015-0 No 2 gm, 50 Alek bethany Sulfate 2-02 mL, Route: l 17:27: IVPB, Drug [place] 00 form: INJ, ONCE, Dosing Weight 114.318, kg, [...] 0.9% 2-02 (Same as: l 15:00: BD [place] 00 Posiflush) pneumococca No Notes: Alek bethany l [...] 0.9% 2-02 (Same as: l 15:00: BD Elia 00 Posiflush) pneumococca No Notes: Alek bethany l [...] 0.9% 2-02 (Same as: l 15:00: BD [place] 00 Posiflush) Versed No Notes: Memoria 2-02 (Same as: l 14:31: Versed) [place] Versed No Notes: Memoria 2-02 (Same as: l 14:31: Versed) [place] Versed No Notes: Memoria 2-02 (Same as: l 14:31: Versed) [place] 00 Pravastatin No 40 mg = 1 M emoria Sodium 40 -02 tab, PO, l MG Oral 13:59: Bedtime, # Herm alexandra Tablet 00 30 tab, 0 [Pravachol] Refill(s) aspirin No 0 Memoria 2-02 Refill(s) l 13:59: [place] 00 Fenofibrate No 160 mg = 1 Memoria 160 MG Oral 2-02 tab, PO, l Tablet 13:59: Daily, # [place] 00 30 tab, 0 Refill(s) Atenolol No 0 Memoria 2-02 Refill(s) l 13:59: [place] 00 valsartan No 320 mg = 1 Me moria 320 mg oral 2-02 tab, PO, l tablet 13:59: Daily, # Elia 00 30 tab, 0 Refill(s) Potassium No 0 Memoria Chloride 20 2-02 Refill(s) l MEQ 13:59: [place] Extended 00 Release Tablet Metolazone No 5 mg = 1 Mem oria 5 MG Oral 2-02 tab, PO, l Tablet 13:59: Daily, # [place] 00 30 tab, 0 Refill(s) Furosemide No 40 mg = 1 Me moria 40 MG Oral 2-02 tab, PO, l Tablet 13:59: Daily, # [place] [Lasix] 00 30 tab, 0 Refill(s) liothyronin No 5 Memori a e 5 mcg 2-02 microgram l oral tablet 13:59: = 1 tab, He rmann 00 PO, Daily, # 30 tab, 0 Refill(s) Omeprazole No 0 Memoria 2-02 Refill(s) l 13:59: [place] 00 spironolact No 0 Memori a one [...] tab, PO, l Tablet 13:59: Daily, # [place] 00 30 tab, 0 Refill(s) Atenolol No 0 Memoria 2-02 Refill(s) l 13:59: Elia 00 valsartan No 320 mg = 1 Me moria 320 mg oral 2-02 tab, PO, l tablet 13:59: Daily, # [place] 00 30 tab, 0 Refill(s) Potassium No 0 Memoria Chloride 20 2-02 Refill(s) l MEQ 13:59: [place] Extended 00 Release Tablet Metolazone No 5 mg = 1 Mem oria 5 MG Oral 2-02 tab, PO, l Tablet 13:59: Daily, # [place] 00 30 tab, 0 Refill(s) Furosemide No 40 mg = 1 Me moria 40 MG Oral 2-02 tab, PO, l Tablet 13:59: Daily, # [place] [Lasix] 00 30 tab, 0 Refill(s) liothyronin No 5 Memori a e 5 mcg 2-02 microgram l oral tablet 13:59: = 1 tab, He rmann 00 PO, Daily, # 30 tab, 0 Refill(s) Omeprazole No 0 Memoria 2-02 Refill(s) l 13:59: [place] 00 spironolact No 0 Memori a one [...] tab, PO, l Tablet 13:59: Daily, # [place] 00 30 tab, 0 Refill(s) Atenolol No 0 Memoria 2-02 Refill(s) l 13:59: [place] 00 valsartan No 320 mg = 1 Me moria 320 mg oral 2-02 tab, PO, l tablet 13:59: Daily, # [place] 00 30 tab, 0 Refill(s) Potassium No 0 Memoria Chloride 20 2-02 Refill(s) l MEQ 13:59: Elia Extended 00 Release Tablet Metolazone No 5 mg = 1 Mem oria 5 MG Oral 2-02 tab, PO, l Tablet 13:59: Daily, # [place] 00 30 tab, 0 Refill(s) Furosemide No [...] Memoria 2-02 (Same as: l 13:08: Zofran) [place] Zofran No Notes: Memoria 2-02 (Same as: l 13:08: Zofran) Elia Zofran No Notes: Memoria 2-02 (Same as: l 13:08: Zofran) [place] Tylenol No Notes: Do Memor ia 2-02 not exceed l 06:48: 4 gm/day. Elia 00 (Same as: Tylenol) Tylenol No Notes: Do Memor ia 2-02 not exceed l 06:48: 4 gm/day. Elia (Same as: Tylenol) Tylenol No Notes: Do Memor ia 2-02 not exceed l 06:48: 4 gm/day. Elia (Same as: Tylenol) Sodium 2014-0 No 1,000 mL, Memori a Chloride 2-02 Rate: 75 l 0.154 05:06: ml/hr, Elia MEQ/ML 00 Infuse Injectable over: 13.3 Solution hr, Route: IV, Total Volume: 1,000, Start date: 11/23/14 23:06:00, Duration: 30 day, Stop date: 12/23/14 23:05:00 Sodium 2015-0 No 1,000 mL, Memori a Chloride 2-02 Rate: 75 l 0.154 05:06: ml/hr, [place] MEQ/ML 00 Infuse Injectable over: 13.3 Solution hr, Route: IV, Total Volume: 1,000, Start date: 11/23/14 23:06:00, Duration: 30 day, Stop date: 12/23/14 23:05:00 Sodium 2015-0 No 1,000 mL, Memori a Chloride 2-02 Rate: 75 l 0.154 05:06: ml/hr, [place] MEQ/ML 00 Infuse Injectable over: 13.3 Solution hr, Route: IV, Total Volume: 1,000, Start date: 11/23/14 23:06:00, Duration: 30 day, Stop date: 12/23/14 23:05:00 Saline 0 No Notes: Memoria Flush 0.9% 2-02 (Same as: l 04:58: BD Elia 00 Posiflush) Acetaminoph No Notes: Do M emoria en 11-24 not exceed l 04:58: 4 gm/day. [place] 00 (Same as: Tylenol) Saline No Notes: Memoria Flush 0.9% 2- (Same as: l 04:58: BD Elia 00 Posiflush) Acetaminoph No Notes: Do M emoria en 11-24 not exceed l 04:58: 4 gm/day. Elia 00 (Same as: Tylenol) Saline No Notes: Memoria Flush 0.9% 2- (Same as: l 04:58: BD Elia 00 Posiflush) Acetaminoph No Notes: Do M emoria en 11-24 not exceed l 04:58: 4 gm/day. Elia (Same as: Tylenol) Dofetilide Dofetilide No 1{capsu BID Dofetilide 250 MCG 250 MCG le} 250 MCG Vitamin D3 Vitamin D3 No 1{capsu QD Vitamin D3 50 MCG 50 MCG le} 50 MCG (1999 [facility]) (1999 [facility]) (1999 [facility]) Aspirin 81 Aspirin 81 No 1{table QD [...] le} 50 MCG (1999) (1999 [facility]) (1999) Gabapentin Gabapentin No 1{capsu QD Gabapentin 300 [...] MCG (1999 [facility]) (1999 [facility]) (1999 [facility]) Atorvastati Atorvastati No 1{table QD Atorvastat n [...] les_wit GM h_meals } VitEyes VitEyes No VitEyes Classic Classic Classic Advanced Advanced Advanced Montelukast [...] MCG MCG _empty_ 5 MCG stomach } Dofetilide Dofetilide Yes MUNACHI 1 capsule UT 500 MCG 500 MCG OKPALA daily Physic i Oral Oral DOG TRAINER ans Capsule Capsule Doxazosin Doxazosin No 1{table QD Doxazosin Mesylate [...] Omeprazole 20 MG 20 MG 20 MG Vitamin D-3 Vitamin D-3 Yes 1 tablet [place] CAPS CAPS daily Physici ans cloNIDine cloNIDine No 1{table QD cloNIDine HCl [...] 50 MCG (1999 [facility]) (1999 [facility]) (1999) Aspirin 81 Aspirin 81 No 1{table QD Aspirin 81 81 MG 81 MG t} 81 MG Atorvastati Atorvastati No 1{table QD Atorvastat n Calcium n Calcium t} in Calcium 80 MG 80 MG 80 MG Vascepa 1 Vascepa 1 Yes MUNACHI 1 capsule UT GM Oral GM Oral OKPALA daily Physic i Capsule Capsule DOG TRAINER ans VitEyes VitEyes No VitEyes Classic Classic Classic [...] Date Status Commen ts Source Name Name [facility] 2020-11-28 Completed [facility] COVID-19 Vacc 30 14:02:00 MCG/0.3ML Intramuscular Suspension Vital Signs Vital Name Observation Time Observation Value Comments Source height 2022-10-27 62 [in_i] [facility] 10[facility]:00 [facility] weight 2022-10-27 250 [lb_av] [facility] - 10:00:00 [facility] temperature 2022-10-27 97.2 [degF] [facility] - 10:00:00 [facility] bmi 2022-10-27 45.72 kg/m2 [facility] - 10:00:00 [facility] blood pressure 2022-10-27 146 mm[Hg] [facility] - systolic 10:00:00 [facility] blood pressure 2022-10-27 60 mm[Hg] [facility] - diastolic 10:00:00 [facility] height 2022-09-22 62 [in_i] [facility] - 13:45:00 [facility] weight 2022-09-22 249 [lb_av] [facility] - 13:45:00 [facility] temperature 2022-09-22 97.6 [degF] [facility] - 13:45:00 [facility] bmi 2022-09-22 45.54 kg/m2 [facility] - 13:45:00 [facility] oximetry 2022-09-22 98 % [facility] - 13:45:00 [facility] respiratory rate 2022-09-22 18 /min [facility] - 13:45:00 [facility] blood pressure 2022-09-22 146 mm[Hg] [facility] - systolic 13:45:00 [facility] blood pressure 2022-09-22 68 mm[Hg] [facility] - diastolic 13:45:00 [facility] height 2022-09-12 62 [in_i] [facility] - 14:15:00 [facility] weight 2022-09-12 249.8 [lb_av] [facility] - 14:15:00 [facility] temperature 2022-09-12 97.2 [degF] [facility] - 14:15:00 [facility] bmi 2022-09-12 45.68 kg/m2 [facility] - 14:15:00 [facility] oximetry 2022-09-12 97.2 % [facility] - 14:15:00 [facility] respiratory rate 2022-09-12 18 /min [facility] - 14:15:00 [facility] blood pressure 2022-09-12 161 mm[Hg] [facility] - systolic 14:15:00 [facility] blood pressure 2022-09-12 73 mm[Hg] [facility] - diastolic 14:15:00 [facility] height 2022-07-27 62 [in_i] [facility] - 15:30:00 [facility] weight 2022-07-27 246 [lb_av] [facility] - 15:30:00 [facility] temperature 2022-07-27 97.6 [degF] [facility] - 15:30:00 [facility] bmi 2022-07-27 44.99 kg/m2 [facility] - 15:30:00 [facility] oximetry 2022-07-27 93 % [facility] - 15:30:00 [facility] respiratory rate 2022-07-27 16 /min [facility] - 15:30:00 [facility] blood pressure 2022-07-27 160 mm[Hg] [facility] - systolic 15:30:00 [facility] blood pressure 2022-07-27 80 mm[Hg] [facility] - diastolic 15:30:00 [facility] Systolic blood 2020-07-17 146 mm[Hg] [facility] pressure 11:51:00 Position: Standing Diastolic blood 2020-07-17 67 mm[Hg] [facility] pressure 11:51:00 Position: Standing Heart Rate 2020-07-17 65 /min [facility] 11:51:00 BP Systolic 2019-07-23 152 mm[Hg] [facility] 11:51:00 Position: Sitting BP Diastolic 2019-07-23 76 mm[Hg] [facility] 11:51:00 Position: Sitting Height 2019-07-23 62 [in_us] [facility] 11:51:00 Weight 2019-07-23 248.5 [lb_av] [facility] 11:51:00 Body Mass Index 2019-07-23 45.45 kg/m2 [facility] Calculated 11:51:00 Heart Rate 2019-07-23 66 /min Location: [facility] 11:51:00 Brachial Artery; Respitory Rate 2014-11-26 [facility]andra 17:54:00 Systolic (mm Hg) 2014-11-26 [facility] rmann 17:54:00 Diastolic (mm Hg) 2014-11-26 [facility] H ermann 17:54:00 Heart Rate 2014-11-26 [facility] 17:54:00 Temperature Oral 2014-11-26 97.5 F [facility] He rmann (F) 17:54:00 Temperature Oral 2014-11-26 97.5 F [facility] rmann (F) 14:10:00 Heart Rate 2014-11-26 [facility] 14:10:00 Diastolic (mm Hg) 2014-11-26 [facility] H ermann 14:10:00 Respitory Rate 2014-11-26 [facility] alexandra 14:10:00 Systolic (mm Hg) 2014-11-26 [facility] He rmann 14:10:00 Respitory Rate 2014-11-26 Heidy Kimble alexandra 12:09:00 Systolic (mm Hg) 2014-11-26 [facility] He rmann 12:00:00 Diastolic (mm Hg) 2014-11-26 [facility] H ermann 12:00:00 Heart Rate 2014-11-24 Heidy Godfrey n 15:45:00 Weight 2014-11-24 Heidy Godfrey n 06:47:00 BMI Calculated 2014-11-24 Heidy morris 06:47:00 Height 2014-11-24 162.56 cm Hediy jimenez 06:47:00 Procedures Procedure Date / Time Performing Clinician Source Performed [facility]ste[facility] Decompression Median Nerve At Carpal Tunnel History of Esophagogastric [facility] Fundoplasty Carlos Fundoplication History of Knee Surgery [facility] Right Knee replacement Heidy jimenez Plan of Care Planned Activity Planned Date Details Comments Source Future Scheduled 2023-02-03 65+ [facility]:02 VACCINE (1 - PCV) [code = 65+ PNEUMOCOCCAL VACCINE (1 - PCV)] Future Scheduled 2023-02-03 SHINGLES VACCINES (1 Met [facility] Test 21:57:02 of 2) [code = SHINGLES VACCINES (1 of 2)] Future Scheduled 2023-02-03 COVID-19 VACCINE [facility] Test 21:57:02 Pfizer series) [code = COVID-19 VACCINE (2 - Pfizer series)] Future Scheduled 2023-02-03 INFLUENZA VACCINE [facility] Test 21:57:02 [code = INFLUENZA VACCINE] Future Scheduled 2022-10-09 65+ [facility] 19:43:19 VACCINE (1 - PCV) [code = 65+ PNEUMOCOCCAL VACCINE (1 - PCV)] Future Scheduled 2022-10-09 SHINGLES VACCINES (1 Met [facility] Test 19:43:19 of 2) [code = SHINGLES VACCINES (1 of 2)] Future Scheduled 2022-10-09 COVID-19 VACCINE (2 - [facility] Test 19:43:19 Pfizer series) [code = COVID-19 VACCINE (2 - Pfizer series)] Future Scheduled 2022-10-09 INFLUENZA VACCINE [facility] Test 19:43:19 [code = INFLUENZA VACCINE] Future Scheduled 2022-06-24 HEPATITIS B VACCINES Met [facility] Test 21:22:46 (1 of 3 - 3-dose series) [code = HEPATITIS B VACCINES (1 of 3 - 3-dose series)] Future Scheduled 2022-06-24 65+ [facility]OCOCCAL [facility] Test 21:22:46 VACCINE (1 - PCV) [code = 65+ PNEUMOCOCCAL VACCINE (1 - PCV)] Future Scheduled 2022-06-24 SHINGLES VACCINES (1 Met [facility] Test 21:22:46 of 2) [code = SHINGLES VACCINES (1 of 2)] Future Scheduled 2022-06-24 COVID-19 VACCINE (2 - [facility] Test 21:22:46 Pfizer series) [code = COVID-19 VACCINE (2 - Pfizer series)] Future Scheduled 2022-06-24 INFLUENZA VACCINE Method [facility] Test 21:22:46 [code = INFLUENZA VACCINE] Encounters Start End Encounter Admission Attending Care Care Encounter Source Date/Time Date/Time Type Type Clinicians Facility Department ID 2022-10-28 Outpatient [place], [facility] [id number] Common 09:04:03 Judd [id number] 2022-10-27 [facility] [id number] Common 10:44:02 Judd [id number] [facility] 2022-10-25 [facility] [id number] Common 14:54:04 Judd [id number] [facility] 2022-10-10 [facility] [place], [facility] [id number] Common 16:39:02 Judd [facility] 2022-08-01 Outpatient [place], [facility] [id number] Common 08:32:02 Judd [facility] 2022-07-27 Outpatient [place], [facility] [id number] Common 15:24:03 Judd [facility] 2022-10-27 2022-10-27 OFFICE [facility] [id number] Co mmon 00:00:00 00:00:00 VISIT [facility] PT LEVEL 3 [facility] 2022-09-22 2022-09-22 OFFICE [facility] [id number] Co mmon 00:00:00 00:00:00 VISIT [facility] PT LEVEL 3 - [facility] 2022-09-12 2022-09-12 OFFICE STLMLC STLMLC [id number] Co mmon 00:00:00 00:00:00 VISIT [facility] EST[facility] PT - [facility] LEVEL 4 [facility] 2022-08-17 2022-08-17 (TEL) STLMLC STL[facility]C [id number] Co mmon 00:00:00 00:00:00 [facility] - [facility] 2022-08-11 2022-08-11 OFFICE STLMLC STLMLC [id number] Co mmon 00:00:00 00:00:00 VISIT [facility] ESTAB PT - [facility] LEVEL 1 [facility] 2022-07-31 2022-07-31 (TEL) STLMLC STLMLC [id number] Co mmon 00:00:00 00:00:00 [facility] - [facility] 2022-07-27 2022-07-27 OFFICE STLMLC STLML[facility] [id number] Co mmon 00:00:00 00:00:00 VISIT [facility] PT LEVEL 4 - [facility] 2021-01-07 2021-01-10 Inpatient PAZ GALDAMEZ [facility] [id number] [place] 00:00:00 00:00:[address] 2021-01-01 2021-01-01 Outpatient RUDOLPH PAZ [facility] [id number] [place] 00:00:00 00:00:[address] 2020-07-17 2020-07-17 [facility] [id number] [place] 11:30:00 11:30:00 t[facility] [place] [facility] 2019-07-23 [facility] - [id number] [place] 11:30:00 11:30:00 t; [facility] [place] [facility] 2018-08-08 2018-08-08 BLUE [facility] UTP [id number] [place] 11:30:00 11:30:00 t; LEO MURRELL, Ph ysici LEO, DOG TRAINER ans DOG TRAINER 2017-08-08 2017-08-08 Appointpaula BURNETTBALJEETKhadijahBLUE UTP [id number] [place] 11:30:00 11:30:00 t; LEO MURRELL, HADOOP APPLICATION DEVELOPER Physici NERYGI, ans HADOOP APPLICATION DEVELOPER 2017-06-16 2017-06-16 Outpatient [facility] [id number] Memoria 12:43:00 12:43:00 y Consultants angel jimenez 2017-06-08 2017-06-08 Outpatient [facility] [id number] [facility] 15:30:00 15:30:00 y Consultants angel jimenez 2017-02-03 2017-02-03 Outpatient [facility] [id number] [facility] 11:44:00 11:44:00 y Consultants angel jimenez 2017-01-17 2017-01-17 Outpatient [facility] [id number] Mem[facility] 09:18:00 09:18:00 [facility] Consultants angel jimenez 2016-12-20 2016-12-20 Unknown nullFlavo [place] [id number] Memoria 15:57:00 15:57:00 r Cardiology [id number] l Consultants [id number] H ermann [id number] 2016-12-20 2016-12-20 Unknown nullFlavo [place] [id number] Memoria 15:57:00 15:57:00 r Cardiology [id number] l Consultants [id number] H ermann [id number] 2016-12-20 2016-12-20 Outpatient [facility] [id number] Memoria 09:57:00 09:57:00 Cardiolog Cardiology l y Consultants Lamin Live 2016-09-09 2016-09-09 Other nullFlavo [place] [id number] -[id number] Mem[facility] 21:06:00 21:06:00 r Cardiology [id number] l Consultants [id number] H ermann [id number] 2016-09-09 2016-09-09 Other nullFlavo [place] [id number] -[id number] Memoria 21:06:00 21:06:00 r Cardiology [id number] l Consultants [id number] H ermann [id number] 2016-09-09 2016-09-09 Other nullFlavo [place] [id number] -[id number] Memoria 21:06:00 21:06:00 r Cardiology [id number] l Consultants [id number] H ermann [id number] 2016-09-09 2016-09-09 Other nullFlavo [place] [id number] -[id number] Memoria 21:06:00 21:06:00 r Cardiology [id number] l Consultants [id number] H ermann [id number] 2016-09-09 2016-09-09 Outpatient [facility] [id number] Memoria 15:06:00 15:06:00 Cardiolog Cardiology l y Consultants Lamin urrutia 2016-04-15 2016-04-15 Unknown nullFlavo [place] [id number] -1 Memoria 20:19:00 20:19:00 r Cardiology [id number] l Consultants [id number] H ermann [id number] 2016-04-15 2016-04-15 Unknown nullFlavo [place] [id number] -[id number] [facility] 20:19:00 20:19:00 r Cardiology [id number] l Consultants [id number] H ermann [id number] 2016-04-15 2016-04-15 Unknown nullFlavo [place] [id number] -[id number] Memoria 20:19:00 20:19:00 r Cardiology [id number] l Consultants [id number] H ermann [id number] 2016-04-15 2016-04-15 Unknown nullFlavo [place] [id number] -1 [facility] 20:19:00 20:19:00 r Cardiology [id number] l Consultants [id number] H ermann [id number] 2016-04-15 2016-04-15 Unknown nullFlavo [place] [id number] -[id number] [facility] 20:11:00 20:11:00 r Cardiology [id number] l Consultants [id number] H ermann [id number] 2016-04-15 2016-04-15 Unknown nullFlavo [place] [id number] -d [facility] 20:11:00 20:11:00 r Cardiology [id number] l Consultants [id number] H ermann [id number] 2016-04-15 2016-04-15 Unknown nullFlavo Kyler [id number] -d [facility] 20:11:00 20:11:00 r Cardiology [id number] l Consultants [id number] H ermann [id number] 2016-04-15 2016-04-15 Unknown nullFlavo Kyler [id number] -[id number] [facility] 20:11:00 20:11:00 r Cardiology [id number] l Consultants [id number] H ermalexandra [id number] 2016-04-15 2016-04-15 Unknown nullFlavo Kyler [id number] -e [facility] 19:19:00 19:19:00 r Cardiology [id number] l Consultants [id number] ermann [id number] 2016-04-15 2016-04-15 Unknown nullFlavo Kyler [id number] -f [facility] 19:19:00 19:19:00 r Cardiology [id number] l Consultants [id number] H ermann [id number] 2016-04-15 2016-04-15 Unknown nullFlavo Kyler [id number] -e [facility] 19:19:00 19:19:00 r Cardiology [id number] l Consultants [id number] ermalexandra [id number] 2016-04-15 2016-04-15 Unknown nullFlavo Kyler [id number] -f [facility] 19:19:00 19:19:00 r Cardiology [id number] l Consultants [id number] ermann [id number] 2016-04-15 2016-04-15 Unknown nullFlavo Kyler [id number] -d [facility] 19:11:00 19:11:00 r Cardiology [id number] l Consultants [id number] H ermalexandra [id number] 2016-04-15 2016-04-15 Unknown nullFlavo Kyler [id number] -e [facility] 19:11:00 19:11:00 r Cardiology [id number] l Consultants [id number] H briana [id number] 2016-04-15 2016-04-15 Unknown nullFlavo Kyler [id number] -d [facility] 19:11:00 19:11:00 r Cardiology [id number] l Consultants [id number] H briana [id number] 2016-04-15 2016-04-15 Unknown nullFlavo Chávez [id number] -e [facility] 19:11:00 19:11:00 r Cardiology [id number] l Consultants [id number] H briana [id number] 2016-04-15 2016-04-15 Outpatient [facility] [id number] Memoria 14:19:00 14:19:00 Cardiolog Cardiology l y Consultants Lamin Live 2016-04-15 2016-04-15 Outpatient [facility] [id number] Memoria 14:11:00 14:11:00 Cardiolog Cardiology l y Consultants Lamin Live 2016-03-11 2016-03-11 Unknown nullFlavo Chávez [id number] -e [facility] 19:22:00 19:22:00 r Cardiology [id number] l Consultants [id number] ermalexandra [id number] 2016-03-11 2016-03-11 Unknown nullFlavo Chávez [id number] -f [facility] 19:22:00 19:22:00 r Cardiology [id number] l Consultants [phone] ermalexandra [id number] 2016-03-11 2016-03-11 Unknown nullFlavo Chávez [id number] -f [facility] 19:22:00 19:22:00 r Cardiology [id number] l Consultants [id number] ermann [id number] 2016-03-11 2016-03-11 Unknown nullFlavo Chávez [id number] -e [facility] 19:22:00 19:22:00 r Cardiology 4ba-[id number] l Consultants [id number] ermalexandra [id number] 2016-03-11 2016-03-11 Unknown nullFlavo Chávez [id number] -f [facility] 18:22:00 18:22:00 r Cardiology bfd-4198-9 l Consultants [id number] H briana [id number] 2016-03-11 2016-03-11 Unknown nullFlavo Hampton [id number] -8 [facility] 18:22:00 18:22:00 r Cardiology 38e-4869-9 l Consultants [id number] ermann [id number] 2016-03-11 2016-03-11 Unknown nullFlavo Chávez [id number] -5 [facility] 18:22:00 18:22:00 r Cardiology [id number]-a l Consultants 1da-ecabf6 H ermann 9a49de 2016-03-11 2016-03-11 Unknown nullFlavo Chávez [id number] -f [facility] 18:22:00 18:22:00 r Cardiology bfd-4198-9 l Consultants [id number] H ermann [id number] 2016-03-11 2016-03-11 Unknown nullFlavo Hampton [id number] -8 [facility] 18:22:00 18:22:00 r Cardiology 38e-4869-9 l Consultants [id number] H ermann [id number] 2016-03-11 2016-03-11 Unknown nullFlavo Hampton [id number] -5 [facility] 18:22:00 18:22:00 r Cardiology 459-4782-a l Consultants 1da-ecabf6 H ermann [id number] 2016-03-11 2016-03-11 Outpatient [facility] [id number] [facility] 13:22:00 13:22:00 Cardiolog Cardiology l y Consultants Lamin Live 2016-01-29 2016-01-29 Unknown nullFlavo Chávez [id number] -7 [facility] 20:05:00 20:05:00 r Cardiology [id number] l Consultants [id number] ermann [id number] 2016-01-29 2016-01-29 Unknown nullFlavo Chávez [id number] -c [facility] 20:05:00 20:05:00 r Cardiology [id number] l [facility] [id number] H ermann [id number] 2016-01-29 2016-01-29 Unknown nullFlavo Chávez [id number] -c [facility] 20:05:00 20:05:00 r Cardiology [id number]-[id number] l Consultants [id number] H ermann [id number] 2016-01-29 2016-01-29 Unknown nullFlavo Chávez [id number] -7 [facility] 20:05:00 20:05:00 r Cardiology m81-2673-g l Consultants bb3-ad08ef ermann 35275o 2016-01-29 2016-01-29 Unknown nullFlavo Kyler [id number] -5 [facility] 19:05:00 19:05:00 r Cardiology bc1-404e-b l Consultants [id number] ermann 749f4e 2016-01-29 2016-01-29 Unknown nullFlavo Kyler [id number] -0 [facility] 19:05:00 19:05:00 r Cardiology cec-4529-8 l Consultants [id number]-[id number] ermann 840d65 2016-01-29 2016-01-29 Unknown nullFlavo Chávez [id number] -b [facility] 19:05:00 19:05:00 r Cardiology l70-6h6y-u l Consultants 18c-1d80e6 ermann 6y4055 2016-01-29 2016-01-29 Unknown nullFlavo Chávez 1353afad -2 [facility] 19:05:00 19:05:00 r Cardiology 193-459d-a l Consultants e12-83s2by ermann 52afe9 2016-01-29 2016-01-29 Unknown nullFlavo Kyler [id number] -5 [facility] 19:05:00 19:05:00 r Cardiology bc1-404e-b l Consultants [id number] ermann 749f4e 2016-01-29 2016-01-29 Unknown nullFlavo Chávez [id number] -b [facility] 19:05:00 19:05:00 r Cardiology x36-3u3w-y l Consultants 18c-1d80e6 ermann 1l7727 2016-01-29 2016-01-29 Unknown nullFlavo Chávez [id number] -0 [facility] 19:05:00 19:05:00 r Cardiology cec-4529-8 l Consultants [id number]-k68380 ermann 840d65 2016-01-29 2016-01-29 Unknown nullFlavo Chávez 1353afad -2 [facility] 19:05:00 19:05:00 r Cardiology 193-459d-a l Consultants d90-09n5px ermann 52afe9 2016-01-29 2016-01-29 Outpatient [facility] [id number] [facility] 14:05:00 14:05:00 Cardiolog Cardiology l y Consultants Lamin urrutia 2015-08-12 2015-08-12 Unknown nullFlavo Hampton [id number] -9 [facility] 22:30:00 22:30:00 r Cardiology 0a0-9z25-v l Consultants [id number]-[id number] H ermann aea06f 2015-08-12 2015-08-12 Unknown nullFlavo Hampton [id number] -2 [facility] 22:30:00 22:30:00 r Cardiology 574-4822-8 l Consultants z61-r3s0nn H ermann 9b28e5 2015-08-12 2015-08-12 Unknown nullFlavo Hampton [id number] -2 [facility] 22:30:00 22:30:00 r Cardiology 574-4822-8 l Consultants f30-g6q9wo H ermann 9b28e5 2015-08-12 2015-08-12 Unknown nullFlavo Hampton [id number] -9 [facility] 22:30:00 22:30:00 r Cardiology 6u7-8r66-v l Consultants [id number]-n71219 H ermann aea06f 2015-08-12 2015-08-12 Unknown nullFlavo Hampton [id number] -1 [facility] 21:30:00 21:30:00 r Cardiology eb4-4667-b l Consultants 94d-edaa6e H briana aeca55 2015-08-12 2015-08-12 Unknown nullFlavo Hampton [id number] -d [facility] 21:30:00 21:30:00 r Cardiology q3e-2y32-1 l Consultants j1n-d2423n H ermann 0c0af9 2015-08-12 2015-08-12 Unknown nullFlavo Hampton [id number] -8 [facility] 21:30:00 21:30:00 r Cardiology z03-075p-9 l Consultants e18-q878o3 H ermann nx611s 2015-08-12 2015-08-12 Unknown nullFlavo Hampton [id number] -2 [facility] 21:30:00 21:30:00 r Cardiology fa0-4be5-a l Consultants m19-apewy5 ermann 4b3cb8 2015-08-12 2015-08-12 Unknown nullFlavo Chávez [id number] -1 [facility] 21:30:00 21:30:00 r Cardiology eb4-4667-b l Consultants 94d-edaa6e ermann aeca55 2015-08-12 2015-08-12 Unknown nullFlavo Chávez [id number] -8 [facility] 21:30:00 21:30:00 r Cardiology s45-336b-1 l Consultants m91-d413b0 ermann tz140g 2015-08-12 2015-08-12 Unknown nullFlavo Chávez [id number] -d [facility] 21:30:00 21:30:00 r Cardiology r0x-2y76-7 l Consultants k6w-f1294h ermann 0c0af9 2015-08-12 2015-08-12 Unknown nullFlavo Chávez [id number] -2 [facility] 21:30:00 21:30:00 r Cardiology fa0-4be5-a l Consultants d23-sxwko7 ermann 4b3cb8 2015-03-23 2015-03-23 Unknown nullFlavo Chávez [id number] -3 [facility] 15:14:00 15:14:00 r Cardiology de5-4cd2-8 l Consultants 120-85eb7f H ermann 3a58f7 2015-03-23 2015-03-23 Unknown nullFlavo Chávez [id number] -4 [facility] 15:14:00 15:14:00 r Cardiology p7k-309x-u l Consultants x69-288eiz ermann 86k180 2015-03-23 2015-03-23 Unknown nullFlavo Chávez [id number] -4 [facility] 15:14:00 15:14:00 r Cardiology i2m-988d-e l Consultants m40-898iuz H ermann 36j164 2015-03-23 2015-03-23 Unknown nullFlavo Chávez [id number] -3 [facility] 15:14:00 15:14:00 r Cardiology de5-4cd2-8 l Consultants 120-85eb7f H ermann 3a58f7 2015-03-23 2015-03-23 Unknown nullFlavo Kyler [id number] -2 [facility] 14:14:00 14:14:00 r Cardiology 1fa-4ddb-8 l Consultants 4l4-0i4859 H ermann 73x307 2015-03-23 2015-03-23 Unknown nullFlavo Kyler 5sg1qo93 -b [facility] 14:14:00 14:14:00 r Cardiology 2e3-773c-r l Consultants 4fb-039c46 H ermann 903a76 2015-03-23 2015-03-23 Unknown nullFlavo Kyler d03v078k -1 [facility] 14:14:00 14:14:00 r Cardiology 921-4048-9 l Consultants bc0-87423a H ermann 294e18 2015-03-23 2015-03-23 Unknown nullFlavo Kyler r5l1cgkv -2 [facility] 14:14:00 14:14:00 r Cardiology 7i0-7640-l l Consultants 0n9-t96955 H ermann ey9811 2015-03-23 2015-03-23 Unknown nullFlavo Kyler 5c2wr95g -2 [facility] 14:14:00 14:14:00 r Cardiology 1fa-4ddb-8 l Consultants 5i5-9h1576 H ermann 13c220 2015-03-23 2015-03-23 Unknown nullFlavo Kyler [id number] -1 [facility] 14:14:00 14:14:00 r Cardiology 921-4048-9 l Consultants bc0-21500w ermann 294e18 2015-03-23 2015-03-23 Unknown nullFlavo Kyler [id number] -b [facility] 14:14:00 14:14:00 r Cardiology 8v0-123i-o l Consultants 4fb-039c46 H ermann 903a76 2015-03-23 2015-03-23 Unknown nullFlavo Kyler [id number] -2 [facility] 14:14:00 14:14:00 r Cardiology 1o0-4006-m l Consultants 4z2-t02621 H ermann ge6294 2014-12-19 2014-12-19 Unknown nullFlavo Kyler [id number] -1 [facility] 22:13:00 22:13:00 r Cardiology h72-9kx2-b l Consultants 6ac-a45f2b H ermann 48f05b 2014-12-19 2014-12-19 Unknown nullFlavo Chávez [id number] -d [facility] 22:13:00 22:13:00 r Cardiology 151-4702-8 l Consultants q9j-5702bp ermann 7tn574 2014-12-19 2014-12-19 Unknown nullFlavo Kyler [id number] -d [facility] 22:13:00 22:13:00 r Cardiology 151-4702-8 l Consultants [id number]-0019bh [facility] 8[facility] 2014-12-19 2014-12-19 Unknown nullFlavo Kyler i09c1wb1 -1 [facility] 22:13:00 22:13:00 r Cardiology l18-2bx4-d l Consultants 6ac-a45f2b briana 48f05b 2014-12-19 2014-12-19 PT/INR 3.0 nullFlavo Chávez 70b0c 239-5 [facility] 21:19:00 21:19:00 r Cardiology 2v5-1357-6 l Consultants c66-x9dht7 [facility] 14dab3 2014-12-19 2014-12-19 PT/INR 3.0 nullFlavo Chávez a635e fad-9 [facility] 21:19:00 21:19:00 r Cardiology g4z-4aea-7 l Consultants 060-8b5dc3 [facility] [id number] 3938-02-27 2014-12-19 PT/INR 3.0 nullFlavo Chávez a635e fad-9 [facility] 21:19:00 21:19:00 r Cardiology o3f-9ucw-4 l Consultants 060-8b5dc3 [facility] [id number] 9760-02-27 2014-12-19 PT/INR 3.0 nullFlavo Hampton 70b0c 239-5 [facility] 21:19:00 21:19:00 r Cardiology 1o8-9092-1 l Consultants j07-i0iqh7 ermalexandra 14dab3 2014-12-19 2014-12-19 Unknown nullFlavo Chávez [id number] -2 [facility] 21:13:00 21:13:00 r Cardiology 17f-4b2e-9 l Consultants 622-25d8a7 [facility] 38256b 2014-12-19 2014-12-19 Unknown nullFlavo Kyler [id number] -d [facility] 21:13:00 21:13:00 r Cardiology 63b-460e-b l Consultants p18-0xi494 H ermann 38054d 2014-12-19 2014-12-19 Unknown nullFlavo Kyler [id number] -d [facility] 21:13:00 21:13:00 r Cardiology 487-404a-a l Consultants 74b-bf18f4 H ermann 340566 3306-02-27 2014-12-19 Unknown nullFlavo Kyler [id number] -e [facility] 21:13:00 21:13:00 r Cardiology 91a-4981-8 l Consultants 4ad-03476l H ermann 5446ae 2014-12-19 2014-12-19 Unknown nullFlavo Kyler [id number] -e [facility] 21:13:00 21:13:00 r Cardiology 91a-4981-8 l Consultants 4ad-49571l H ermann 5446ae 2014-12-19 2014-12-19 Unknown nullFlavo Kyler [id number] -2 [facility] 21:13:00 21:13:00 r Cardiology 17f-4b2e-9 l Consultants 622-25d8a7 H ermann 87544l 2014-12-19 2014-12-19 Unknown nullFlavo Kyler [id number] -d [facility] 21:13:00 21:13:00 r Cardiology 487-404a-a l Consultants 74b-bf18f4 H ermann 415189 9433-02-27 2014-12-19 Unknown nullFlavo Kyler [id number] -d [facility] 21:13:00 21:13:00 r Cardiology 63b-460e-b l Consultants m87-5ae491 ermann 39308t 2014-12-19 2014-12-19 PT/INR 3.0 nullFlavo Kyler a38af df8-2 [facility] 20:19:00 20:19:00 r Cardiology 515-4bf4-8 l Consultants 7n9-sf4801 H ermann b0bc8a 2014-12-19 2014-12-19 PT/INR 3.0 nullFlavo Kyler f64b6 1fb-d [facility] 20:19:00 20:19:00 r Cardiology 63f-4a38-9 l Consultants 8f4-fn8075 ermann 50a6a7 2014-12-19 2014-12-19 PT/INR 3.0 nullFlavo Chávez ff7ae d92-d [facility] 20:19:00 20:19:00 r Cardiology 97d-4c76-b l Consultants [id number] briana a71ce0 2014-12-19 2014-12-19 PT/INR 3.0 nullFlavo Chávez dd7c4 4ea-9 [facility] 20:19:00 20:19:00 r Cardiology 0p3-862a-f l Consultants 2u8-mcjb0x briana 0aac10 2014-12-19 2014-12-19 PT/INR 3.0 nullFlavo Chávez a38af df8-2 [facility] 20:19:00 20:19:00 r Cardiology 515-4bf4-8 l Consultants 8n4-vp0778 briana b0bc8a 2014-12-19 2014-12-19 PT/INR 3.0 nullFlavo Hampton ff7ae d92-d [facility] 20:19:00 20:19:00 r Cardiology 97d-4c76-b l Consultants 560-53eb22 briana a71ce0 2014-12-19 2014-12-19 PT/INR 3.0 nullFlavo Chávez f64b6 1fb-d [facility] 20:19:00 20:19:00 r Cardiology 63f-4a38-9 l Consultants 7p8-vu0660 ermann 50a6a7 2014-12-19 2014-12-19 PT/INR 3.0 nullFlavo Chávez dd7c4 4ea-9 [facility] 20:19:00 20:19:00 r Cardiology 5d8-281q-e l Consultants 3s0-zqbf8n briana 0aac10 2014-11-24 2014-11-26 Inpatient [facility]Flavo [facility] [id number] [facility] 04:23:00 22:46:00 r Elia [address] [place] [address] 2014-11-24 2014-11-26 Inpatient [facility]Flavo [facility] [id number] [facility] 04:23:00 22:46:00 r Elia [address] [place] [address] 2014-11-23 2014-11-26 Outpatient Kel, [id number] 22:23:00 16:46:00 Serina [id number] Michelle [id number] 01 Results Test Description Test Time Test Comments Results Result Comments Source SARS-CoV-2 (COVID-19) RNA [Presence] in Respiratory sp ecimen by 2021-01-01 18:46:21 NEHEMIAS with probe detection Test Item Value Reference Range Interpretation Comme nts SARS-CoV-2 (COVID-19) RNA [Presence] in Respiratory Not detected No t-Detected specimen by NEHEMIAS with probe detection (test code = 33957-2) [facility]2015-02-04 10:23:00 Test Item Value Reference Range Interpretation Comments Magnesium Lvl (test code = Magnesium 2.1 1.8-2.4 Lvl) [facility]2015-02-04 10:23:00 Test Item Value Reference Range Interpretation Comments Phosphorus (test code = Phosphorus) 2.8 2.5-4.5 [facility]2015-02-04 10:23:00 Test Item Value Reference Range Interpretation Comments eGFR (test code = eGFR) 40 [facility]2015-02-04 10:23:00 Test Item Value Reference Range Interpretation Comments Glucose Lvl (test code = Glucose Lvl) 80 70-99 [facility]2015-02-04 10:23:00 Test Item Value Reference Range Interpretation Comments BUN (test code = BUN) 18 7-22 [facility]2015-02-04 10:23:00 Test Item Value Reference Range Interpretation Comments Creatinine Lvl (test code = Creatinine 1.3 0.5-1.4 Lvl) [facility]2015-02-04 10:23:00 Test Item Value Reference Range Interpretation Comments Sodium Lvl (test code = Sodium Lvl) 136 135-145 [facility]2015-02-04 10:23:00 Test Item Value Reference Range Interpretation Comments Chloride Lvl (test code = Chloride Lvl) 102 95-109 [facility]2015-02-04 10:23:00 Test Item Value Reference Range Interpretation Comments Potassium Lvl (test code = Potassium 3.5 3.5-5.1 Lvl) [facility]2015-02-04 10:23:00 Test Item Value Reference Range Interpretation Comments Calcium Lvl (test code = Calcium Lvl) 9.0 8.5-10.5 [facility]2015-02-04 10:23:00 Test Item Value Reference Range Interpretation Comments CO2 (test code = CO2) 25 24-32 [facility]2015-02-04 10:23:00 Test Item Value Reference Range Interpretation Comments AGAP (test code = AGAP) 12.5 10.0-20.0 [facility]ImiqtajVTNNWVJOSJ0131-20-95 10:23:00 Test Item Value Reference Range Interpretation Comments RDW (test code = RDW) 13.1 11.5-14.5 [facility]villeSyrbpuqKABBGDQAGN5120-47-18 10:23:00 Test Item Value Reference Range Interpretation Comments MCH (test code = MCH) 32.4 pg 27.0-31.0 [facility] GreenvilleSwjxuqeWEBSBNDYFR8063-88-45 10:23:00 Test Item Value Reference Range Interpretation Comments MCV (test code = MCV) 93.5 80.0-98.0 [facility]villeEuxtdgzIBYGVFBEQZ7690-30-18 10:23:00 Test Item Value Reference Range Interpretation Comments MCHC (test code = MCHC) 34.6 32.0-36.0 [facility] GreenvilleVrxwaznHZFBTKOWTT8945-10-40 10:23:00 Test Item Value Reference Range Interpretation Comments Hct (test code = Hct) 33.6 36.0-48.0 [facility] GreenvilleVbrgmpxVBCSDYDELH6812-26-83 10:23:00 Test Item Value Reference Range Interpretation Comments Hgb (test code = Hgb) 11.6 12.0-16.0 [facility]villeVqmzslsZYXTIHEIYG9377-60-76 10:23:00 Test Item Value Reference Range Interpretation Comments RBC (test code = RBC) 3.60 4.20-5.40 [facility] GreenvilleQqlxvnjXZYPLDFWKE4751-06-71 10:23:00 Test Item Value Reference Range Interpretation Comments WBC (test code = WBC) 4.6 3.7-10.4 [facility] GreenvilleZbaoeksEECRXHZMTP4916-83-93 10:23:00 Test Item Value Reference Range Interpretation Comments MPV (test code = MPV) 8.3 7.4-10.4 [facility] GreenvilleKsathqbZDDYRGUSRW8946-96-99 10:23:00 Test Item Value Reference Range Interpretation Comments Platelet (test code = Platelet) 149 133-450 [facility] GreenvilleSxbcuzmLLXHYKJOVE5962-99-29 10:23:00 Test Item Value Reference Range Interpretation Comments Segs (test code = Segs) 62.3 45.0-75.0 [facility] GreenvilleJtrhivjPNPHQULMQL9511-81-68 10:23:00 Test Item Value Reference Range Interpretation Comments Lymphocytes # (test code = Lymphocytes 1.2 1.0-5.5 #) [facility] GreenvilleKwcqelgIGVJBCHEAD9850-92-26 10:23:00 Test Item Value Reference Range Interpretation Comments Monocytes # (test code 0.4 See_Comment [Aut omated message] The = Monocytes #) system which generated this result tra nsmitted reference range : <=0.8. The reference r criss was not used to int erpret this result as normal/abnormal . [facility] GreenvilleWkpcffkYKTXTDRLIY0704-55-69 10:23:00 Test Item Value Reference Range Interpretation Comments Eosinophils (test code = 3.0 See_Comment [A utomated message] The Eosinophils) system which ge nerated this result tra nsmitted reference range : <=4.0. The reference r criss was not used to int erpret this result as normal/abnormal . [facility] GreenvilleSymghubRLHSBGMWZW3768-57-88 10:23:00 Test Item Value Reference Range Interpretation Comments Lymphocytes (test code = Lymphocytes) 26.2 20.0-40.0 [facility] GreenvilleZfkmstrURCSRVAEMK1382-07-98 10:23:00 Test Item Value Reference Range Interpretation Comments Segs-Bands # (test code = Segs-Bands #) 2.9 1.5-8.1 [facility] GreenvilleWhsanppVRXMLVXTGH5576-20-09 10:23:00 Test Item Value Reference Range Interpretation Comments Basophils (test code = 0.5 See_Comment [Aut omated message] The Basophils) system which ge nerated this result tra nsmitted reference range : <=1.0. The reference r criss was not used to int erpret this result as normal/abnormal . [facility] GreenvilleZdycjvwLZEHKXJWFG7864-12-12 10:23:00 Test Item Value Reference Range Interpretation Comments Monocytes (test code = Monocytes) 8.0 2.0-12.0 [facility] GreenvilleNsemggtWBNBUCIDRX5021-35-32 10:23:00 Test Item Value Reference Range Interpretation Comments Eosinophils # (test code 0.1 See_Comment [A utomated message] The = Eosinophils #) system [employer] h generated this result tra nsmitted reference range : <=0.5. The reference r criss was not used to int erpret this result as normal/abnormal . [facility]2015-02-04 10:23:00 Test Item Value Reference Range Interpretation Comments Magnesium Lvl (test code = Magnesium 2.1 1.8-2.4 Lvl) [facility]2015-02-04 10:23:00 Test Item Value Reference Range Interpretation Comments Phosphorus (test code = Phosphorus) 2.8 2.5-4.5 [facility]2015-02-04 10:23:00 Test Item Value Reference Range Interpretation Comments eGFR (test code = eGFR) 40 [facility]2015-02-04 10:23:00 Test Item Value Reference Range Interpretation Comments Glucose Lvl (test code = Glucose Lvl) 80 70-99 [facility]2015-02-04 10:23:00 Test Item Value Reference Range Interpretation Comments BUN (test code = BUN) 18 7-22 [facility]2015-02-04 10:23:00 Test Item Value Reference Range Interpretation Comments Creatinine Lvl (test code = Creatinine 1.3 0.5-1.4 Lvl) [facility]2015-02-04 10:23:00 Test Item Value Reference Range Interpretation Comments Sodium Lvl (test code = Sodium Lvl) 136 135-145 [facility]2015-02-04 10:23:00 Test Item Value Reference Range Interpretation Comments Chloride Lvl (test code = Chloride Lvl) 102 95-109 [facility]2015-02-04 10:23:00 Test Item Value Reference Range Interpretation Comments Potassium Lvl (test code = Potassium 3.5 3.5-5.1 Lvl) [facility]2015-02-04 10:23:00 Test Item Value Reference Range Interpretation Comments Calcium Lvl (test code = Calcium Lvl) 9.0 8.5-10.5 [facility]2015-02-04 10:23:00 Test Item Value Reference Range Interpretation Comments CO2 (test code = CO2) 25 24-32 [facility]2015-02-04 10:23:00 Test Item Value Reference Range Interpretation Comments AGAP (test code = AGAP) 12.5 10.0-20.0 [facility]villeGqbrmtiMRMKHVGKWM3713-09-95 10:23:00 Test Item Value Reference Range Interpretation Comments RDW (test code = RDW) 13.1 11.5-14.5 [facility] GreenvilleBosclpkJHWHDGTPVG4633-61-17 10:23:00 Test Item Value Reference Range Interpretation Comments MCH (test code = MCH) 32.4 pg 27.0-31.0 [facility] GreenvilleAcniuqbGXEFZGMFIE7958-17-38 10:23:00 Test Item Value Reference Range Interpretation Comments MCV (test code = MCV) 93.5 80.0-98.0 [facility] GreenvilleNgbxlciIOOTLFGKSX0384-02-17 10:23:00 Test Item Value Reference Range Interpretation Comments MCHC (test code = MCHC) 34.6 32.0-36.0 [facility] GreenvilleEtoctbcCAZYJKEJUU9533-03-04 10:23:00 Test Item Value Reference Range Interpretation Comments Hct (test code = Hct) 33.6 36.0-48.0 [facility] GreenvilleTddfkwgROURNYIFES3934-92-24 10:23:00 Test Item Value Reference Range Interpretation Comments Hgb (test code = Hgb) 11.6 12.0-16.0 [facility] GreenvilleXektfsnAIVRDSMKIF1908-30-65 10:23:00 Test Item Value Reference Range Interpretation Comments RBC (test code = RBC) 3.60 4.20-5.40 [facility] GreenvilleFrfdrgiJKAXIFPJFA8864-46-79 10:23:00 Test Item Value Reference Range Interpretation Comments WBC (test code = WBC) 4.6 3.7-10.4 [facility] GreenvilleRkahgzkGDOUBUEYIO4213-22-01 10:23:00 Test Item Value Reference Range Interpretation Comments MPV (test code = MPV) 8.3 7.4-10.4 [facility] GreenvillePxwlmatXKCSPATCXA9976-39-44 10:23:00 Test Item Value Reference Range Interpretation Comments Platelet (test code = Platelet) 149 133-450 [facility] GreenvilleFbuhwltINDLDOKCZX1458-17-81 10:23:00 Test Item Value Reference Range Interpretation Comments Segs (test code = Segs) 62.3 45.0-75.0 [facility] GreenvilleNunhbhySECZTKUAYZ8818-75-78 10:23:00 Test Item Value Reference Range Interpretation Comments Lymphocytes # (test code = Lymphocytes 1.2 1.0-5.5 #) [facility] GreenvilleKcpddvxLTFZWKDRTK7303-43-48 10:23:00 Test Item Value Reference Range Interpretation Comments Monocytes # (test code 0.4 See_Comment [Aut omated message] The = Monocytes #) system which generated this result tra nsmitted reference range : <=0.8. The reference r criss was not used to int erpret this result as normal/abnormal . [facility] GreenvilleWhwciarGPQPDJTWUB5920-67-74 10:23:00 Test Item Value Reference Range Interpretation Comments Eosinophils (test code = 3.0 See_Comment [A utomated message] The Eosinophils) system which ge nerated this result tra nsmitted reference range : <=4.0. The reference r criss was not used to int erpret this result as normal/abnormal . [facility] GreenvilleXzembtvCBEAPLPBYB3280-68-51 10:23:00 Test Item Value Reference Range Interpretation Comments Lymphocytes (test code = Lymphocytes) 26.2 20.0-40.0 [facility] GreenvilleOdnoybjEGTPBUXDWM2292-58-43 10:23:00 Test Item Value Reference Range Interpretation Comments Segs-Bands # (test code = Segs-Bands #) 2.9 1.5-8.1 [facility] GreenvilleHdaugnuAYKCTNKJHH8924-52-77 10:23:00 Test Item Value Reference Range Interpretation Comments Basophils (test code = 0.5 See_Comment [Aut omated message] The Basophils) system which ge nerated this result tra nsmitted reference range : <=1.0. The reference r criss was not used to int erpret this result as normal/abnormal . [facility] GreenvilleAkoqssdDUJPWAHFOA4240-75-85 10:23:00 Test Item Value Reference Range Interpretation Comments Monocytes (test code = Monocytes) 8.0 2.0-12.0 [facility] GreenvilleQrmmbyoDFZPODVSJH8200-42-58 10:23:00 Test Item Value Reference Range Interpretation Comments Eosinophils # (test code 0.1 See_Comment [A utomated message] The = Eosinophils #) system whic h generated this result tra nsmitted reference range : <=0.5. The reference r criss was not used to int erpret this result as normal/abnormal . [facility]2015-02-04 10:23:00 Test Item Value Reference Range Interpretation Comments Magnesium Lvl (test code = Magnesium 2.1 1.8-2.4 Lvl) [facility]2015-02-04 10:23:00 Test Item Value Reference Range Interpretation Comments Phosphorus (test code = Phosphorus) 2.8 2.5-4.5 [facility]2015-02-04 10:23:00 Test Item Value Reference Range Interpretation Comments eGFR (test code = eGFR) 40 [facility]2015-02-04 10:23:00 Test Item Value Reference Range Interpretation Comments Glucose Lvl (test code = Glucose Lvl) 80 70-99 [facility]2015-02-04 10:23:00 Test Item Value Reference Range Interpretation Comments BUN (test code = BUN) 18 7-22 [facility]2015-02-04 10:23:00 Test Item Value Reference Range Interpretation Comments Creatinine Lvl (test code = Creatinine 1.3 0.5-1.4 Lvl) [facility]2015-02-04 10:23:00 Test Item Value Reference Range Interpretation Comments Sodium Lvl (test code = Sodium Lvl) 136 135-145 [facility]2015-02-04 10:23:00 Test Item Value Reference Range Interpretation Comments Chloride Lvl (test code = Chloride Lvl) 102 95-109 [facility]2015-02-04 10:23:00 Test Item Value Reference Range Interpretation Comments Potassium Lvl (test code = Potassium 3.5 3.5-5.1 Lvl) [facility]2015-02-04 10:23:00 Test Item Value Reference Range Interpretation Comments Calcium Lvl (test code = Calcium Lvl) 9.0 8.5-10.5 [facility]2015-02-04 10:23:00 Test Item Value Reference Range Interpretation Comments CO2 (test code = CO2) 25 24-32 [facility]2015-02-04 10:23:00 Test Item Value Reference Range Interpretation Comments AGAP (test code = AGAP) 12.5 10.0-20.0 [facility]villeQsnzzyvJAWWQUYARM2311-60-18 10:23:00 Test Item Value Reference Range Interpretation Comments RDW (test code = RDW) 13.1 11.5-14.5 [facility]villeOzeftfcLZELLXKQPW7072-21-80 10:23:00 Test Item Value Reference Range Interpretation Comments MCH (test code = MCH) 32.4 pg 27.0-31.0 [facility] GreenvilleBriluonYQZOLFLGYZ6684-09-71 10:23:00 Test Item Value Reference Range Interpretation Comments MCV (test code = MCV) 93.5 80.0-98.0 [facility] GreenvilleXvygzguSGXQRBLIDE8641-64-41 10:23:00 Test Item Value Reference Range Interpretation Comments MCHC (test code = MCHC) 34.6 32.0-36.0 [facility] GreenvilleDsgktcpFSFUVYGIGJ5714-99-65 10:23:00 Test Item Value Reference Range Interpretation Comments Hct (test code = Hct) 33.6 36.0-48.0 [facility] GreenvilleJyzgfdkWYGCBACDSB5137-41-99 10:23:00 Test Item Value Reference Range Interpretation Comments Hgb (test code = Hgb) 11.6 12.0-16.0 [facility] GreenvilleRhewcihXPBCIXBQIO2339-34-64 10:23:00 Test Item Value Reference Range Interpretation Comments RBC (test code = RBC) 3.60 4.20-5.40 [facility] GreenvilleXlecfgfWYQBPCRYVH7698-83-35 10:23:00 Test Item Value Reference Range Interpretation Comments WBC (test code = WBC) 4.6 3.7-10.4 [facility] GreenvilleUbwyjgvYNIUGFOYZX1568-21-09 10:23:00 Test Item Value Reference Range Interpretation Comments MPV (test code = MPV) 8.3 7.4-10.4 [facility]villeBlemgemXMXFIWMMCX1178-76-54 10:23:00 Test Item Value Reference Range Interpretation Comments Platelet (test code = Platelet) 149 133-450 [facility] GreenvilleDwvmtydESTIKSYWCE1542-10-19 10:23:00 Test Item Value Reference Range Interpretation Comments Segs (test code = Segs) 62.3 45.0-75.0 [facility] GreenvilleFzobzmdDJEWOOEQWO1119-35-56 10:23:00 Test Item Value Reference Range Interpretation Comments Lymphocytes # (test code = Lymphocytes 1.2 1.0-5.5 #) [facility] GreenvilleObgrlpxBKDUHQGHVJ4550-54-52 10:23:00 Test Item Value Reference Range Interpretation Comments Monocytes # (test code 0.4 See_Comment [Aut omated message] The = Monocytes #) system which generated this result tra nsmitted reference range : <=0.8. The reference r criss was not used to int erpret this result as normal/abnormal . [facility] GreenvilleXjsylcaZSPGXYUWNI9507-30-49 10:23:00 Test Item Value Reference Range Interpretation Comments Eosinophils (test code = 3.0 See_Comment [A utomated message] The Eosinophils) system which ge nerated this result tra nsmitted reference range : <=4.0. The reference r criss was not used to int erpret this result as normal/abnormal . [facility] GreenvilleQqnskhrFFMWICFERT1243-09-91 10:23:00 Test Item Value Reference Range Interpretation Comments Lymphocytes (test code = Lymphocytes) 26.2 20.0-40.0 [facility] GreenvilleUwdlavgAAVUKLTFQP5416-02-14 10:23:00 Test Item Value Reference Range Interpretation Comments Segs-Bands # (test code = Segs-Bands #) 2.9 1.5-8.1 [facility] GreenvilleAdcllcsOLPNQZCYOL4375-06-23 10:23:00 Test Item Value Reference Range Interpretation Comments Basophils (test code = 0.5 See_Comment [Aut omated message] The Basophils) system which ge nerated this result tra nsmitted reference range : <=1.0. The reference r criss was not used to int erpret this result as normal/abnormal . [facility] GreenvilleBzbxuxpCBTNTRCQYB0529-58-47 10:23:00 Test Item Value Reference Range Interpretation Comments Monocytes (test code = Monocytes) 8.0 2.0-12.0 [facility] GreenvilleTnizlvlAHOJDSBDZR7851-40-67 10:23:00 Test Item Value Reference Range Interpretation Comments Eosinophils # (test code 0.1 See_Comment [A utomated message] The = Eosinophils #) system whic h generated this result tra nsmitted reference range : <=0.5. The reference r criss was not used to int erpret this result as normal/abnormal . [facility] EHCGE0483-10-63 07:04:00 Test Item Value Reference Range Interpretation Comments Phosphorus (test code = Phosphorus) 3.1 2.5-4.5 [facility] [id number] 07:04:00 Test Item Value Reference Range Interpretation Comments eGFR (test code = eGFR) 34 [facility] YSLVS4970-45-97 07:04:00 Test Item Value Reference Range Interpretation Comments CO2 (test code = CO2) 25 24-32 [facility]2015-02-03 07:04:00 Test Item Value Reference Range Interpretation Comments AGAP (test code = AGAP) 12.8 10.0-20.0 [facility]2015-02-03 07:04:00 Test Item Value Reference Range Interpretation Comments Calcium Lvl (test code = Calcium Lvl) 8.7 8.5-10.5 [facility]2015-02-03 07:04:00 Test Item Value Reference Range Interpretation Comments Chloride Lvl (test code = Chloride Lvl) 104 95-109 [facility]2015-02-03 07:04:00 Test Item Value Reference Range Interpretation Comments BUN (test code = BUN) 23 7-22 [facility]2015-02-03 07:04:00 Test Item Value Reference Range Interpretation Comments Sodium Lvl (test code = Sodium Lvl) 138 135-145 [facility]2015-02-03 07:04:00 Test Item Value Reference Range Interpretation Comments Glucose Lvl (test code = Glucose Lvl) 82 70-99 [facility]2015-02-03 07:04:00 Test Item Value Reference Range Interpretation Comments Creatinine Lvl (test code = Creatinine 1.5 0.5-1.4 Lvl) [facility]2015-02-03 07:04:00 Test Item Value Reference Range Interpretation Comments Potassium Lvl (test code = Potassium 3.8 3.5-5.1 Lvl) [facility]2015-02-03 07:04:00 Test Item Value Reference Range Interpretation Comments Magnesium Lvl (test code = Magnesium 2.7 1.8-2.4 Lvl) [facility]villeQxobjirTOGGWBTMWQ3105-68-39 07:04:00 Test Item Value Reference Range Interpretation Comments Segs (test code = Segs) 63.1 45.0-75.0 [facility] GreenvilleZosbiboLRBGNZIEXL1833-95-39 07:04:00 Test Item Value Reference Range Interpretation Comments Lymphocytes (test code = Lymphocytes) 27.1 20.0-40.0 [place] 140015-02-03 07:04:00 Test Item Value Reference Range Interpretation Comments Monocytes (test code = Monocytes) 7.2 2.0-12.0 [facility] GreenvilleYijdvxfTQRHXIIFRO9651-88-11 07:04:00 Test Item Value Reference Range Interpretation Comments Eosinophils # (test code 0.1 See_Comment [A utomated message] The = Eosinophils #) system whic h generated this result tra nsmitted reference range : <=0.5. The reference r criss was not used to int erpret this result as normal/abnormal . [facility] GreenvillePgwomrxALUYAJEXLV8436-58-73 07:04:00 Test Item Value Reference Range Interpretation Comments Eosinophils (test code = 2.2 See_Comment [A utomated message] The Eosinophils) system which ge nerated this result tra nsmitted reference range : <=4.0. The reference r criss was not used to int erpret this result as normal/abnormal . [facility] GreenvilleQmhxoxnQZRWBQXLAS5415-69-47 07:04:00 Test Item Value Reference Range Interpretation Comments Basophils (test code = 0.4 See_Comment [Aut omated message] The Basophils) system which ge nerated this result tra nsmitted reference range : <=1.0. The reference r criss was not used to int erpret this result as normal/abnormal . [facility] GreenvilleFppiamjLVMISRQXRH1478-70-82 07:04:00 Test Item Value Reference Range Interpretation Comments Segs-Bands # (test code = Segs-Bands #) 3.1 1.5-8.1 [facility] GreenvilleDgrioddSZBGBNLDPS2860-99-87 07:04:00 Test Item Value Reference Range Interpretation Comments Monocytes # (test code 0.3 See_Comment [Aut omated message] The = Monocytes #) system which generated this result tra nsmitted reference range : <=0.8. The reference r criss was not used to int erpret this result as normal/abnormal . [facility] GreenvilleBufqhxjCGWOLAKEIM6485-82-97 07:04:00 Test Item Value Reference Range Interpretation Comments Lymphocytes # (test code = Lymphocytes 1.3 1.0-5.5 #) [facility] GreenvilleBmiticyUFDDCUWBJX3564-60-57 07:04:00 Test Item Value Reference Range Interpretation Comments MPV (test code = MPV) 8.5 7.4-10.4 [facility] GreenvilleJdchiugRUMVLHYFDN4231-64-47 07:04:00 Test Item Value Reference Range Interpretation Comments MCH (test code = MCH) 31.6 pg 27.0-31.0 [facility] GreenvilleJuqmlgiGLLLUZGZDV1767-63-15 07:04:00 Test Item Value Reference Range Interpretation Comments MCV (test code = MCV) 93.4 80.0-98.0 [facility]villePdbnyirGTBIDMBEPV2414-70-59 07:04:00 Test Item Value Reference Range Interpretation Comments Hct (test code = Hct) 33.2 36.0-48.0 [facility] GreenvilleZfuskosNAONJVZRNV5754-10-94 07:04:00 Test Item Value Reference Range Interpretation Comments Platelet (test code = Platelet) 151 133-450 [facility] GreenvilleSeazsolJONYCMMKFQ8940-32-12 07:04:00 Test Item Value Reference Range Interpretation Comments RDW (test code = RDW) 13.1 11.5-14.5 [facility] GreenvilleKpaoptzAWGKHEYJZZ3841-69-37 07:04:00 Test Item Value Reference Range Interpretation Comments MCHC (test code = MCHC) 33.8 32.0-36.0 [facility] GreenvilleUqroqobYZZGONWNUX9065-13-75 07:04:00 Test Item Value Reference Range Interpretation Comments Hgb (test code = Hgb) 11.2 12.0-16.0 [facility] GreenvilleIwptdyoPASCDERFHG5153-85-46 07:04:00 Test Item Value Reference Range Interpretation Comments RBC (test code = RBC) 3.56 4.20-5.40 [facility] GreenvilleFgmwvpjUJNZMOPPUO7133-50-65 07:04:00 Test Item Value Reference Range Interpretation Comments WBC (test code = WBC) 4.9 3.7-10.4 [facility] GreenvilleCdukyhaSMOCYRNHSP6360-77-01 07:04:00 Test Item Value Reference Range Interpretation Comments INR (test code = INR) 1.14 0.85-1.17 [facility] GreenvilleSnsgcdhVIPWSSWNUP4416-84-16 07:04:00 Test Item Value Reference Range Interpretation Comments PTT (test code = PTT) 28.5 s 22.9-35.8 [facility] GreenvilleIifrcrjPIULRCKBVK1926-33-14 07:04:00 Test Item Value Reference Range Interpretation Comments PT (test code = PT) 14.7 s 12.0-14.7 [facility] AustinTHYRO[facility] [id number] 07:04:00 Test Item Value Reference Range Interpretation Comments TSH (test code = TSH) 3.190 0.360-3.740 [facility] AustinCHEM WZTWY0535-26-33 07:04:00 Test Item Value Reference Range Interpretation Comments Phosphorus (test code = Phosphorus) 3.1 2.5-4.5 [facility]2015-02-03 07:04:00 Test Item Value Reference Range Interpretation Comments eGFR (test code = eGFR) 34 [facility]2015-02-03 07:04:00 Test Item Value Reference Range Interpretation Comments CO2 (test code = CO2) 25 24-32 [facility]2015-02-03 07:04:00 Test Item Value Reference Range Interpretation Comments AGAP (test code = AGAP) 12.8 10.0-20.0 [facility]2015-02-03 07:04:00 Test Item Value Reference Range Interpretation Comments Calcium Lvl (test code = Calcium Lvl) 8.7 8.5-10.5 [facility]2015-02-03 07:04:00 Test Item Value Reference Range Interpretation Comments Chloride Lvl (test code = Chloride Lvl) 104 95-109 [facility]2015-02-03 07:04:00 Test Item Value Reference Range Interpretation Comments BUN (test code = BUN) 23 7-22 [facility]2015-02-03 07:04:00 Test Item Value Reference Range Interpretation Comments Sodium Lvl (test code = Sodium Lvl) 138 135-145 [facility]2015-02-03 07:04:00 Test Item Value Reference Range Interpretation Comments Glucose Lvl (test code = Glucose Lvl) 82 70-99 [facility]2015-02-03 07:04:00 Test Item Value Reference Range Interpretation Comments Creatinine Lvl (test code = Creatinine 1.5 0.5-1.4 Lvl) [facility]2015-02-03 07:04:00 Test Item Value Reference Range Interpretation Comments Potassium Lvl (test code = Potassium 3.8 3.5-5.1 Lvl) [facility]2015-02-03 07:04:00 Test Item Value Reference Range Interpretation Comments Magnesium Lvl (test code = Magnesium 2.7 1.8-2.4 Lvl) [facility] GreenvilleFsxwleyZNBQSEAIMK1689-44-54 07:04:00 Test Item Value Reference Range Interpretation Comments Segs (test code = Segs) 63.1 45.0-75.0 [facility] GreenvilleTkilyazKXEBWOAJEK9610-14-83 07:04:00 Test Item Value Reference Range Interpretation Comments Lymphocytes (test code = Lymphocytes) 27.1 20.0-40.0 [facility] GreenvilleOkgtwgnFMAYQWSDWJ5518-13-98 07:04:00 Test Item Value Reference Range Interpretation Comments Monocytes (test code = Monocytes) 7.2 2.0-12.0 [facility] GreenvillePqhovslABIUFVXEFL1188-83-26 07:04:00 Test Item Value Reference Range Interpretation Comments Eosinophils # (test code 0.1 See_Comment [A utomated message] The = Eosinophils #) system whic h generated this result tra nsmitted reference range : <=0.5. The reference r criss was not used to int erpret this result as normal/abnormal . [facility] GreenvilleQjvrtvcWJXCHGCSVA1484-33-78 07:04:00 Test Item Value Reference Range Interpretation Comments Eosinophils (test code = 2.2 See_Comment [A utomated message] The Eosinophils) system which ge nerated this result tra nsmitted reference range : <=4.0. The reference r criss was not used to int erpret this result as normal/abnormal . [facility] GreenvilleEihjwzrGIFJEQWWSS0551-66-33 07:04:00 Test Item Value Reference Range Interpretation Comments Basophils (test code = 0.4 See_Comment [Aut omated message] The Basophils) system which ge nerated this result tra nsmitted reference range : <=1.0. The reference r criss was not used to int erpret this result as normal/abnormal . [facility] GreenvilleZfumldkJQGWVQBBJJ1158-05-38 07:04:00 Test Item Value Reference Range Interpretation Comments Segs-Bands # (test code = Segs-Bands #) 3.1 1.5-8.1 [facility]villeXmdewsuHMILFPQVPY3643-39-63 07:04:00 Test Item Value Reference Range Interpretation Comments Monocytes # (test code 0.3 See_Comment [Aut omated message] The = Monocytes #) system which generated this result tra nsmitted reference range : <=0.8. The reference r criss was not used to int erpret this result as normal/abnormal . [facility] GreenvilleCyytsnmACLYDZUQKB9635-45-02 07:04:00 Test Item Value Reference Range Interpretation Comments Lymphocytes # (test code = Lymphocytes 1.3 1.0-5.5 #) [facility] GreenvillePbzwwsrBSQIGYWAVI4054-47-54 07:04:00 Test Item Value Reference Range Interpretation Comments MPV (test code = MPV) 8.5 7.4-10.4 [facility] GreenvilleMtwabquXMSODWWACQ4285-08-54 07:04:00 Test Item Value Reference Range Interpretation Comments MCH (test code = MCH) 31.6 pg 27.0-31.0 [facility] GreenvilleKhclvmyZLUDWPNNZW6488-11-00 07:04:00 Test Item Value Reference Range Interpretation Comments MCV (test code = MCV) 93.4 80.0-98.0 [facility] GreenvilleBdfpkziLRLDBGKVGL0951-59-45 07:04:00 Test Item Value Reference Range Interpretation Comments Hct (test code = Hct) 33.2 36.0-48.0 [facility] GreenvilleXzbqjvgBXGTNAWKQZ6887-46-82 07:04:00 Test Item Value Reference Range Interpretation Comments Platelet (test code = Platelet) 151 133-450 [facility] GreenvilleCwmiqwsXWEWFDKIQS3729-12-23 07:04:00 Test Item Value Reference Range Interpretation Comments RDW (test code = RDW) 13.1 11.5-14.5 [facility] GreenvilleZyksxwmFHNLLHCBWI5051-77-49 07:04:00 Test Item Value Reference Range Interpretation Comments MCHC (test code = MCHC) 33.8 32.0-36.0 [facility] GreenvilleTnahzbiCVMIGUIKZC5329-06-80 07:04:00 Test Item Value Reference Range Interpretation Comments Hgb (test code = Hgb) 11.2 12.0-16.0 [facility] GreenvilleFryyadgWUMONCWCMZ5294-45-43 07:04:00 Test Item Value Reference Range Interpretation Comments RBC (test code = RBC) 3.56 4.20-5.40 [facility] GreenvilleJmyjmhlEVHSGDJJKA7529-56-86 07:04:00 Test Item Value Reference Range Interpretation Comments WBC (test code = WBC) 4.9 3.7-10.4 [facility] GreenvilleVwjoegoYCLFKYUYFP3235-29-31 07:04:00 Test Item Value Reference Range Interpretation Comments INR (test code = INR) 1.14 0.85-1.17 [facility] GreenvilleFksevcbBMSWGSBVZH9161-91-61 07:04:00 Test Item Value Reference Range Interpretation Comments PTT (test code = PTT) 28.5 s 22.9-35.8 [facility] GreenvilleMryyqzsNXDJQORTXB4596-04-15 07:04:00 Test Item Value Reference Range Interpretation Comments PT (test code = PT) 14.7 s 12.0-14.7 [facility] AustinTHYRO[facility] VSLPM1291-77-14 07:04:00 Test Item Value Reference Range Interpretation Comments TSH (test code = TSH) 3.190 0.360-3.740 [facility]2015-02-03 07:04:00 Test Item Value Reference Range Interpretation Comments Phosphorus (test code = Phosphorus) 3.1 2.5-4.5 [facility]2015-02-03 07:04:00 Test Item Value Reference Range Interpretation Comments eGFR (test code = eGFR) 34 [facility]2015-02-03 07:04:00 Test Item Value Reference Range Interpretation Comments CO2 (test code = CO2) 25 24-32 [facility]2015-02-03 07:04:00 Test Item Value Reference Range Interpretation Comments AGAP (test code = AGAP) 12.8 10.0-20.0 [facility]2015-02-03 07:04:00 Test Item Value Reference Range Interpretation Comments Calcium Lvl (test code = Calcium Lvl) 8.7 8.5-10.5 [facility]2015-02-03 07:04:00 Test Item Value Reference Range Interpretation Comments Chloride Lvl (test code = Chloride Lvl) 104 95-109 [facility]2015-02-03 07:04:00 Test Item Value Reference Range Interpretation Comments BUN (test code = BUN) 23 7-22 [facility]2015-02-03 07:04:00 Test Item Value Reference Range Interpretation Comments Sodium Lvl (test code = Sodium Lvl) 138 135-145 [facility]2015-02-03 07:04:00 Test Item Value Reference Range Interpretation Comments Glucose Lvl (test code = Glucose Lvl) 82 70-99 [facility]2015-02-03 07:04:00 Test Item Value Reference Range Interpretation Comments Creatinine Lvl (test code = Creatinine 1.5 0.5-1.4 Lvl) [facility]2015-02-03 07:04:00 Test Item Value Reference Range Interpretation Comments Potassium Lvl (test code = Potassium 3.8 3.5-5.1 Lvl) [facility]2015-02-03 07:04:00 Test Item Value Reference Range Interpretation Comments Magnesium Lvl (test code = Magnesium 2.7 1.8-2.4 Lvl) [facility] GreenvilleLgdpemxHIXNGVFXEN2008-27-70 07:04:00 Test Item Value Reference Range Interpretation Comments Segs (test code = Segs) 63.1 45.0-75.0 [facility] GreenvilleQavygqpZRGENLERVM8243-77-25 07:04:00 Test Item Value Reference Range Interpretation Comments Lymphocytes (test code = Lymphocytes) 27.1 20.0-40.0 [facility] GreenvilleGonzqqyGOEEURWJGU6106-91-23 07:04:00 Test Item Value Reference Range Interpretation Comments Monocytes (test code = Monocytes) 7.2 2.0-12.0 [facility] GreenvilleSkjjfwrZSSOUBPUSL6419-43-15 07:04:00 Test Item Value Reference Range Interpretation Comments Eosinophils # (test code 0.1 See_Comment [A utomated message] The = Eosinophils #) system whic h generated this result tra nsmitted reference range : <=0.5. The reference r criss was not used to int erpret this result as normal/abnormal . [facility]villePkgqdkrGAETWSGSYL7299-06-62 07:04:00 Test Item Value Reference Range Interpretation Comments Eosinophils (test code = 2.2 See_Comment [A utomated message] The Eosinophils) system which ge nerated this result tra nsmitted reference range : <=4.0. The reference r criss was not used to int erpret this result as normal/abnormal . [facility] GreenvilleUnmqngwUGHJFHRBJC8771-28-43 07:04:00 Test Item Value Reference Range Interpretation Comments Basophils (test code = 0.4 See_Comment [Aut omated message] The Basophils) system which ge nerated this result tra nsmitted reference range : <=1.0. The reference r criss was not used to int erpret this result as normal/abnormal . [facility] GreenvilleTsqvnwwCGCGLXYLXZ3850-32-20 07:04:00 Test Item Value Reference Range Interpretation Comments Segs-Bands # (test code = Segs-Bands #) 3.1 1.5-8.1 [facility] GreenvilleDrmxbvwIMYRPARPPY5436-89-20 07:04:00 Test Item Value Reference Range Interpretation Comments Monocytes # (test code 0.3 See_Comment [Aut omated message] The = Monocytes #) system which generated this result tra nsmitted reference range : <=0.8. The reference r criss was not used to int erpret this result as normal/abnormal . [facility] GreenvilleMxyuwjdAAHHZBWOQK0686-17-94 07:04:00 Test Item Value Reference Range Interpretation Comments Lymphocytes # (test code = Lymphocytes 1.3 1.0-5.5 #) [facility] GreenvilleLmdoldqMMXDSIEBSW1033-40-72 07:04:00 Test Item Value Reference Range Interpretation Comments MPV (test code = MPV) 8.5 7.4-10.4 [facility] GreenvilleUpscsftBHGLLJDFIR6379-60-87 07:04:00 Test Item Value Reference Range Interpretation Comments MCH (test code = MCH) 31.6 pg 27.0-31.0 [facility] GreenvilleVbxnlabGQIMDHWHFF8311-36-92 07:04:00 Test Item Value Reference Range Interpretation Comments MCV (test code = MCV) 93.4 80.0-98.0 [place] 140015-02-03 07:04:00 Test Item Value Reference Range Interpretation Comments Hct (test code = Hct) 33.2 36.0-48.0 [facility] GreenvilleVeegispBJYZGLZMRN7851-95-07 07:04:00 Test Item Value Reference Range Interpretation Comments Platelet (test code = Platelet) 151 133-450 [facility]villeCirhompXFQXCLLEOO8602-20-86 07:04:00 Test Item Value Reference Range Interpretation Comments RDW (test code = RDW) 13.1 11.5-14.5 [facility] GreenvilleXibwmtiGJDDPLWBXF7769-50-78 07:04:00 Test Item Value Reference Range Interpretation Comments MCHC (test code = MCHC) 33.8 32.0-36.0 [facility] GreenvilleQdfrjmpHNSIKAYCVJ9080-64-84 07:04:00 Test Item Value Reference Range Interpretation Comments Hgb (test code = Hgb) 11.2 12.0-16.0 [facility] GreenvilleJarjxogBEEDSHUBVF7881-72-09 07:04:00 Test Item Value Reference Range Interpretation Comments RBC (test code = RBC) 3.56 4.20-5.40 [facility] GreenvillePmryoqlTLBNIFZKZJ5549-45-84 07:04:00 Test Item Value Reference Range Interpretation Comments WBC (test code = WBC) 4.9 3.7-10.4 [facility] GreenvilleSiaizhnCOWOFWWAIV2860-22-49 07:04:00 Test Item Value Reference Range Interpretation Comments INR (test code = INR) 1.14 0.85-1.17 [facility]YrjglhnFLTIDRRSTB8666-65-46 07:04:00 Test Item Value Reference Range Interpretation Comments PTT (test code = PTT) 28.5 s 22.9-35.8 [facility] AustinErmwxqmUOUGHBIAEK9864-90-97 07:04:00 Test Item Value Reference Range Interpretation Comments PT (test code = PT) 14.7 s 12.0-14.7 [facility] AustinTHYROID [id number] 07:04:00 Test Item Value Reference Range Interpretation Comments TSH (test code = TSH) 3.190 0.360-3.740 [facility] AND [id number] 08:06:00 Test Item Value Reference Range Interpretation Comments UA Urobilinogen (test code = UA <=1.0 mg/dL 0.1-1.0 Urobilinogen) [facility] AND [id number] 08:06:00 Test Item Value Reference Range Interpretation Comments UA Renal Epi (test code = UA Renal Epi) 7 [facility] AND [id number] 08:06:00 Test Item Value Reference Range Interpretation Comments UA Sq Epi (test code = UA Sq Moderate /LPF Epi) [facility] AND [id number] 08:06:00 Test Item Value Reference Range Interpretation Comments UA WBC (test code = 2 See_Comment [Automa elly message] The UA WBC) system which ge nerated this result transmit elly reference range : <=5. The reference range was not used to interpr et this result as maren l/abnormal. [facility] AND [id number] 08:06:00 Test Item Value Reference Range Interpretation Comments UA Nitrite (test code Negative (11/24/14 2:06 = UA Nitrite) AM) [facility] AND [id number] 08:06:00 Test Item Value Reference Range Interpretation Comments UA Leuk Est (test Negative (11/24/14 2:06 code = UA Leuk Est) AM) [facility] AND [id number] 08:06:00 Test Item Value Reference Range Interpretation Comments UA Blood (test code = Negative (11/24/14 2:06 UA Blood) AM) [facility] AND [id number] 08:06:00 Test Item Value Reference Range Interpretation Comments UA Protein (test code = UA Negative mg/dL Protein) [facility] AND [id number] 08:06:00 Test Item Value Reference Range Interpretation Comments UA pH (test code = UA pH) 6.5 5.0-8.0 [facility] AND [id number] 08:06:00 Test Item Value Reference Range Interpretation Comments UA Glucose (test code = UA Negative mg/dL Glucose) [facility] AND [id number] 08:06:00 Test Item Value Reference Range Interpretation Comments UA Bili (test code = Negative *NA*(11/24/14 UA Bili) 2:06 AM) [facility] AND [id number] 08:06:00 Test Item Value Reference Range Interpretation Comments UA Ketones (test code = UA Negative mg/dL Ketones) [facility] AND [id number] 08:06:00 Test Item Value Reference Range Interpretation Comments UA Spec Grav (test code = UA Spec Grav) 1.009 [facility] AND [id number] 08:06:00 Test Item Value Reference Range Interpretation Comments UA Turbidity (test code = Clear (11/24/14 2:06 UA Turbidity) AM) [facility] AND [id number] 08:06:00 Test Item Value Reference Range Interpretation Comments UA Color (test code = Yellow *NA*(11/24/14 2:06 UA Color) AM) [facility] AND [id number] 08:06:00 Test Item Value Reference Range Interpretation Comments UA Urobilinogen (test code = UA <=1.0 mg/dL 0.1-1.0 Urobilinogen) [facility] AND [id number] 08:06:00 Test Item Value Reference Range Interpretation Comments UA Renal Epi (test code = UA Renal Epi) 7 [facility] AND [id number] 08:06:00 Test Item Value Reference Range Interpretation Comments UA Sq Epi (test code = UA Sq Moderate /LPF Epi) [facility] AND [id number] 08:06:00 Test Item Value Reference Range Interpretation Comments UA WBC (test code = 2 See_Comment [Automa elly message] The UA WBC) system which ge nerated this result transmit elly reference range : <=5. The reference range was not used to interpr et this result as maren l/abnormal. [facility] AND [id number] 08:06:00 Test Item Value Reference Range Interpretation Comments UA Nitrite (test code Negative (11/24/14 2:06 = UA Nitrite) AM) [facility] AND [id number] 08:06:00 Test Item Value Reference Range Interpretation Comments UA Leuk Est (test Negative (11/24/14 2:06 code = UA Leuk Est) AM) [facility] AND [id number] 08:06:00 Test Item Value Reference Range Interpretation Comments UA Blood (test code = Negative (11/24/14 2:06 UA Blood) AM) [facility] AND [id number] 08:06:00 Test Item Value Reference Range Interpretation Comments UA Protein (test code = UA Negative mg/dL Protein) [facility] AND [id number] 08:06:00 Test Item Value Reference Range Interpretation Comments UA pH (test code = UA pH) 6.5 5.0-8.0 [facility] AND [id number] 08:06:00 Test Item Value Reference Range Interpretation Comments UA Glucose (test code = UA Negative mg/dL Glucose) [facility] AND [id number] 08:06:00 Test Item Value Reference Range Interpretation Comments UA Bili (test code = Negative *NA*(11/24/14 UA Bili) 2:06 AM) [facility] AND [id number] 08:06:00 Test Item Value Reference Range Interpretation Comments UA Ketones (test code = UA Negative mg/dL Ketones) [facility] AND [id number] 08:06:00 Test Item Value Reference Range Interpretation Comments UA Spec Grav (test code = UA Spec Grav) 1.009 [facility] AND [id number] 08:06:00 Test Item Value Reference Range Interpretation Comments UA Turbidity (test code = Clear (11/24/14 2:06 UA Turbidity) AM) [facility] AND [id number] 08:06:00 Test Item Value Reference Range Interpretation Comments UA Color (test code = Yellow *NA*(11/24/14 2:06 UA Color) AM) [facility] AND [id number] 08:06:00 Test Item Value Reference Range Interpretation Comments UA Urobilinogen (test code = UA <=1.0 mg/dL 0.1-1.0 Urobilinogen) [facility] AND [id number] 08:06:00 Test Item Value Reference Range Interpretation Comments UA Renal Epi (test code = UA Renal Epi) 7 [facility] AND [id number] 08:06:00 Test Item Value Reference Range Interpretation Comments UA Sq Epi (test code = UA Sq Moderate /LPF Epi) [facility] AND [id number] 08:06:00 Test Item Value Reference Range Interpretation Comments UA WBC (test code = 2 See_Comment [Automa elly message] The UA WBC) system which ge nerated this result transmit elly reference range : <=5. The reference range was not used to interpr et this result as maren l/abnormal. [facility] AND [id number] 08:06:00 Test Item Value Reference Range Interpretation Comments UA Nitrite (test code Negative (11/24/14 2:06 = UA Nitrite) AM) [facility] AND [id number] 08:06:00 Test Item Value Reference Range Interpretation Comments UA Leuk Est (test Negative (11/24/14 2:06 code = UA Leuk Est) AM) [facility] AND [id number] 08:06:00 Test Item Value Reference Range Interpretation Comments UA Blood (test code = Negative (11/24/14 2:06 UA Blood) AM) [facility] AND [id number] 08:06:00 Test Item Value Reference Range Interpretation Comments UA Protein (test code = UA Negative mg/dL Protein) [facility] AND [id number] 08:06:00 Test Item Value Reference Range Interpretation Comments UA pH (test code = UA pH) 6.5 5.0-8.0 [facility] AND [id number] 08:06:00 Test Item Value Reference Range Interpretation Comments UA Glucose (test code = UA Negative mg/dL Glucose) [facility] AND [id number] 08:06:00 Test Item Value Reference Range Interpretation Comments UA Bili (test code = Negative *NA*(11/24/14 UA Bili) 2:06 AM) [facility] AND [id number] 08:06:00 Test Item Value Reference Range Interpretation Comments UA Ketones (test code = UA Negative mg/dL Ketones) [facility] AND [id number] 08:06:00 Test Item Value Reference Range Interpretation Comments UA Spec Grav (test code = UA Spec Grav) 1.009 [facility] AND [id number] 08:06:00 Test Item Value Reference Range Interpretation Comments UA Turbidity (test code = Clear (11/24/14 2:06 UA Turbidity) AM) [facility] AND [id number] 08:06:00 Test Item Value Reference Range Interpretation Comments UA Color (test code = Yellow *NA*(11/24/14 2:06 UA Color) AM) [facility]2015-02-02 07:51:00 Test Item Value Reference Range Interpretation Comments A/G Ratio (test code = A/G Ratio) 1.2 0.7-1.6 [facility]2015-02-02 07:51:00 Test Item Value Reference Range Interpretation Comments Globulin (test code = Globulin) 3.2 2.0-4.0 [facility]2015-02-02 07:51:00 Test Item Value Reference Range Interpretation Comments B/C Ratio (test code = B/C Ratio) 22 6-25 [facility]2015-02-02 07:51:00 Test Item Value Reference Range Interpretation Comments AGAP (test code = AGAP) 9.8 10.0-20.0 [facility]2015-02-02 07:51:00 Test Item Value Reference Range Interpretation Comments eGFR (test code = eGFR) 29 [facility]2015-02-02 07:51:00 Test Item Value Reference Range Interpretation Comments Glucose Lvl (test code = Glucose Lvl) 125 70-99 [facility]2015-02-02 07:51:00 Test Item Value Reference Range Interpretation Comments Calcium Lvl (test code = Calcium Lvl) 8.7 8.5-10.5 [facility]2015-02-02 07:51:00 Test Item Value Reference Range Interpretation Comments ALT (test code = ALT) 29 See_Comment [Auto mated message] The system which ge nerated this result transmit elly reference range : <=65. The reference range was not used to interpr et this result as maren l/abnormal. [facility]2015-02-02 07:51:00 Test Item Value Reference Range Interpretation Comments AST (test code = AST) 17 See_Comment [Auto mated message] The system which ge nerated this result transmit elly reference range : <=37. The reference range was not used to interpr et this result as maren l/abnormal. [facility]2015-02-02 07:51:00 Test Item Value Reference Range Interpretation Comments Albumin Lvl (test code = Albumin Lvl) 3.7 3.5-5.0 [facility]2015-02-02 07:51:00 Test Item Value Reference Range Interpretation Comments Total Protein (test code = Total 6.9 6.4-8.4 Protein) [facility]2015-02-02 07:51:00 Test Item Value Reference Range Interpretation Comments CO2 (test code = CO2) 28 24-32 [facility]2015-02-02 07:51:00 Test Item Value Reference Range Interpretation Comments Chloride Lvl (test code = Chloride Lvl) 103 95-109 [facility]2015-02-02 07:51:00 Test Item Value Reference Range Interpretation Comments Potassium Lvl (test code = Potassium 3.8 3.5-5.1 Lvl) [facility]2015-02-02 07:51:00 Test Item Value Reference Range Interpretation Comments Sodium Lvl (test code = Sodium Lvl) 137 135-145 [facility]2015-02-02 07:51:00 Test Item Value Reference Range Interpretation Comments Creatinine Lvl (test code = Creatinine 1.7 0.5-1.4 Lvl) [facility]2015-02-02 07:51:00 Test Item Value Reference Range Interpretation Comments BUN (test code = BUN) 37 7-22 [facility]2015-02-02 07:51:00 Test Item Value Reference Range Interpretation Comments Alk Phos (test code = Alk Phos) 37 39-136 [facility]2015-02-02 07:51:00 Test Item Value Reference Range Interpretation Comments Bili Total (test code = Bili Total) 0.4 0.2-1.3 [facility]villeMmvkjklUNKEJECMEK4244-15-06 07:51:00 Test Item Value Reference Range Interpretation Comments Monocytes # (test code 0.4 See_Comment [Aut omated message] The = Monocytes #) system which generated this result tra nsmitted reference range : <=0.8. The reference r criss was not used to int erpret this result as normal/abnormal . [facility]villeUnjtahqXWONCVYXCD2959-44-64 07:51:00 Test Item Value Reference Range Interpretation Comments Lymphocytes # (test code = Lymphocytes 1.1 1.0-5.5 #) [facility] GreenvilleAockkrvOPUZKNBKFK7793-34-43 07:51:00 Test Item Value Reference Range Interpretation Comments Eosinophils # (test code 0.1 See_Comment [A utomated message] The = Eosinophils #) system whic h generated this result tra nsmitted reference range : <=0.5. The reference r criss was not used to int erpret this result as normal/abnormal . [facility] GreenvilleZwjmczwMBDPMHEXTD5039-33-66 07:51:00 Test Item Value Reference Range Interpretation Comments Segs (test code = Segs) 70.9 45.0-75.0 [facility] GreenvilleWuemhclLDWLGXMSOV0707-68-95 07:51:00 Test Item Value Reference Range Interpretation Comments Monocytes (test code = Monocytes) 6.7 2.0-12.0 [facility] GreenvilleNrhgwfjWDLZZMOPNW1700-12-28 07:51:00 Test Item Value Reference Range Interpretation Comments Lymphocytes (test code = Lymphocytes) 19.7 20.0-40.0 [facility] GreenvilleOpqtmyyNAPKMUQITR2297-48-64 07:51:00 Test Item Value Reference Range Interpretation Comments Eosinophils (test code = 2.3 See_Comment [A utomated message] The Eosinophils) system which ge nerated this result tra nsmitted reference range : <=4.0. The reference r criss was not used to int erpret this result as normal/abnormal . [facility] GreenvilleChtiwmeKSOKQMVDLS1284-02-95 07:51:00 Test Item Value Reference Range Interpretation Comments Segs-Bands # (test code = Segs-Bands #) 4.0 1.5-8.1 [facility]villeCsvkxotSPLNTCXOGJ9007-33-09 07:51:00 Test Item Value Reference Range Interpretation Comments Basophils (test code = 0.4 See_Comment [Aut omated message] The Basophils) system which ge nerated this result tra nsmitted reference range : <=1.0. The reference r criss was not used to int erpret this result as normal/abnormal . [facility] GreenvilleXayzzohNXSZZRLEZD8564-13-61 07:51:00 Test Item Value Reference Range Interpretation Comments PTT (test code = PTT) 28.2 s 22.9-35.8 [facility] GreenvillePpjaacbQJQLQYUJTB3310-40-49 07:51:00 Test Item Value Reference Range Interpretation Comments PT (test code = PT) 13.9 s 12.0-14.7 [facility] GreenvilleVjckqjzKEJWUZXLYB6128-64-54 07:51:00 Test Item Value Reference Range Interpretation Comments INR (test code = INR) 1.07 0.85-1.17 [facility] GreenvilleMkcpqjkADYKJGBKAO6738-52-00 07:51:00 Test Item Value Reference Range Interpretation Comments MPV (test code = MPV) 8.8 7.4-10.4 [facility] GreenvilleHzgmptwCBWUWZCGWA3288-43-73 07:51:00 Test Item Value Reference Range Interpretation Comments WBC (test code = WBC) 5.7 3.7-10.4 [facility] GreenvilleYwegdpcWFFXMQEEPK6148-28-49 07:51:00 Test Item Value Reference Range Interpretation Comments MCV (test code = MCV) 94.9 80.0-98.0 [facility] GreenvilleCzhgbknBUZYQMGWXS5235-75-36 07:51:00 Test Item Value Reference Range Interpretation Comments RBC (test code = RBC) 3.73 4.20-5.40 [facility] GreenvilleRjexookRTOWMBFFNM9001-76-22 07:51:00 Test Item Value Reference Range Interpretation Comments RDW (test code = RDW) 13.3 11.5-14.5 [facility] GreenvilleOjlnlixUKBRDPDWDE8499-41-81 07:51:00 Test Item Value Reference Range Interpretation Comments Hgb (test code = Hgb) 12.1 12.0-16.0 [facility] GreenvilleIkeadhqDBGPRZIAFL3726-76-17 07:51:00 Test Item Value Reference Range Interpretation Comments Hct (test code = Hct) 35.3 36.0-48.0 [facility] GreenvilleTgujdipQALOKNYZOO6706-01-30 07:51:00 Test Item Value Reference Range Interpretation Comments Platelet (test code = Platelet) 158 133-450 [facility] GreenvilleRklglmwZDSVTHECVD4698-12-18 07:51:00 Test Item Value Reference Range Interpretation Comments MCHC (test code = MCHC) 34.2 32.0-36.0 [facility] AustinMpadeiiVGNNFCCOKT4760-40-95 07:51:00 Test Item Value Reference Range Interpretation Comments MCH (test code = MCH) 32.5 pg 27.0-31.0 [facility]ScdxspwBSTEND3782-89-09 07:51:00 Test Item Value Reference Range Interpretation Comments CHD Risk (test code = CHD Risk) 2.81 3.90-5.80 [facility] SystemUnaoqozFHPQEV9082-34-57 07:51:00 Test Item Value Reference Range Interpretation Comments VLDL (test code = VLDL) 26 [facility] SystemNwfptklPSZAFV6622-25-93 07:51:00 Test Item Value Reference Range Interpretation Comments LDL (Calculated) (test code = LDL 59 (Calculated)) [facility] SystemYkunlehUXNQDL5837-91-33 07:51:00 Test Item Value Reference Range Interpretation Comments Trig (test code = Trig) 128 [facility] SystemHmfyxboVUAQHN9002-79-54 07:51:00 Test Item Value Reference Range Interpretation Comments HDL (test code = HDL) 47 [facility] SystemTqgwytpMEDGBB3575-96-40 07:51:00 Test Item Value Reference Range Interpretation Comments Chol (test code = Chol) [facility] CJWPFCPID8998-83-60 07:51:00 Test Item Value Reference Range Interpretation Comments Hgb A1C (test code = Hgb A1C) 5.6 [facility] SystemannCHEM JONUZ8909-98-21 07:51:00 Test Item Value Reference Range Interpretation Comments A/G Ratio (test code = A/G Ratio) 1.2 0.7-1.6 [facility] SystemannCHEM UWBMM0453-68-06 07:51:00 Test Item Value Reference Range Interpretation Comments Globulin (test code = Globulin) 3.2 2.0-4.0 [facility] SystemannCHEM [id number] 07:51:00 Test Item Value Reference Range Interpretation Comments B/C Ratio (test code = B/C Ratio) 22 6-25 [facility] SystemannCHEM WLQJT6072-27-36 07:51:00 Test Item Value Reference Range Interpretation Comments AGAP (test code = AGAP) 9.8 10.0-20.0 [facility] creadsannCHEM [id number] 07:51:00 Test Item Value Reference Range Interpretation Comments eGFR (test code = eGFR) 29 [facility]2015-02-02 07:51:00 Test Item Value Reference Range Interpretation Comments Glucose Lvl (test code = Glucose Lvl) 125 70-99 [facility]2015-02-02 07:51:00 Test Item Value Reference Range Interpretation Comments Calcium Lvl (test code = Calcium Lvl) 8.7 8.5-10.5 [facility]2015-02-02 07:51:00 Test Item Value Reference Range Interpretation Comments ALT (test code = ALT) 29 See_Comment [Auto mated message] The system which ge nerated this result transmit elly reference range : <=65. The reference range was not used to interpr et this result as maren l/abnormal. [facility]2015-02-02 07:51:00 Test Item Value Reference Range Interpretation Comments AST (test code = AST) 17 See_Comment [Auto mated message] The system which ge nerated this result transmit elly reference range : <=37. The reference range was not used to interpr et this result as maren l/abnormal. [facility]2015-02-02 07:51:00 Test Item Value Reference Range Interpretation Comments Albumin Lvl (test code = Albumin Lvl) 3.7 3.5-5.0 [facility]2015-02-02 07:51:00 Test Item Value Reference Range Interpretation Comments Total Protein (test code = Total 6.9 6.4-8.4 Protein) [facility]2015-02-02 07:51:00 Test Item Value Reference Range Interpretation Comments CO2 (test code = CO2) 28 24-32 [facility]2015-02-02 07:51:00 Test Item Value Reference Range Interpretation Comments Chloride Lvl (test code = Chloride Lvl) 103 95-109 [facility]2015-02-02 07:51:00 Test Item Value Reference Range Interpretation Comments Potassium Lvl (test code = Potassium 3.8 3.5-5.1 Lvl) [place] 163165-02-02 07:51:00 Test Item Value Reference Range Interpretation Comments Sodium Lvl (test code = Sodium Lvl) 137 135-145 [facility]2015-02-02 07:51:00 Test Item Value Reference Range Interpretation Comments Creatinine Lvl (test code = Creatinine 1.7 0.5-1.4 Lvl) [facility]2015-02-02 07:51:00 Test Item Value Reference Range Interpretation Comments BUN (test code = BUN) 37 7-22 [facility]2015-02-02 07:51:00 Test Item Value Reference Range Interpretation Comments Alk Phos (test code = Alk Phos) 37 39-136 [facility]2015-02-02 07:51:00 Test Item Value Reference Range Interpretation Comments Bili Total (test code = Bili Total) 0.4 0.2-1.3 [facility]villeXancmhrOTVXWOLQWR5750-93-58 07:51:00 Test Item Value Reference Range Interpretation Comments Monocytes # (test code 0.4 See_Comment [Aut omated message] The = Monocytes #) system which generated this result tra nsmitted reference range : <=0.8. The reference r criss was not used to int erpret this result as normal/abnormal . [facility] GreenvilleJupomppLJXVRVVRLN3278-58-58 07:51:00 Test Item Value Reference Range Interpretation Comments Lymphocytes # (test code = Lymphocytes 1.1 1.0-5.5 #) [facility] GreenvilleUgyffmeDMZZSIMSEM3940-86-15 07:51:00 Test Item Value Reference Range Interpretation Comments Eosinophils # (test code 0.1 See_Comment [A utomated message] The = Eosinophils #) system whic h generated this result tra nsmitted reference range : <=0.5. The reference r criss was not used to int erpret this result as normal/abnormal . [facility]villeErxhzheBIIZRQFFTH9300-40-31 07:51:00 Test Item Value Reference Range Interpretation Comments Segs (test code = Segs) 70.9 45.0-75.0 [facility] GreenvilleBlychvaLUMNIKTFFE3054-84-49 07:51:00 Test Item Value Reference Range Interpretation Comments Monocytes (test code = Monocytes) 6.7 2.0-12.0 [facility] GreenvilleVkwaomgSMSNEBQZTK9735-79-48 07:51:00 Test Item Value Reference Range Interpretation Comments Lymphocytes (test code = Lymphocytes) 19.7 20.0-40.0 [facility] GreenvilleSwnrywpGJMDQBCTTA0251-46-65 07:51:00 Test Item Value Reference Range Interpretation Comments Eosinophils (test code = 2.3 See_Comment [A utomated message] The Eosinophils) system which ge nerated this result tra nsmitted reference range : <=4.0. The reference r criss was not used to int erpret this result as normal/abnormal . [facility] GreenvilleGeacwxhWVBLLUKIES1856-48-85 07:51:00 Test Item Value Reference Range Interpretation Comments Segs-Bands # (test code = Segs-Bands #) 4.0 1.5-8.1 [facility] GreenvilleYzitrnmBZCTLLGKRB7870-26-10 07:51:00 Test Item Value Reference Range Interpretation Comments Basophils (test code = 0.4 See_Comment [Aut omated message] The Basophils) system which ge nerated this result tra nsmitted reference range : <=1.0. The reference r criss was not used to int erpret this result as normal/abnormal . [facility] GreenvilleJnhfdicPWENZZPASW1031-82-75 07:51:00 Test Item Value Reference Range Interpretation Comments PTT (test code = PTT) 28.2 s 22.9-35.8 [facility] GreenvilleFjihnbrSLKSUICOUH0684-81-51 07:51:00 Test Item Value Reference Range Interpretation Comments PT (test code = PT) 13.9 s 12.0-14.7 [facility] GreenvilleLflmbglWDKQCCNKCN2959-31-60 07:51:00 Test Item Value Reference Range Interpretation Comments INR (test code = INR) 1.07 0.85-1.17 [facility] GreenvilleDasokqqBKZDGSRJWR6762-92-87 07:51:00 Test Item Value Reference Range Interpretation Comments MPV (test code = MPV) 8.8 7.4-10.4 [facility] GreenvilleJhmemllPYEIBOGCCT9765-40-37 07:51:00 Test Item Value Reference Range Interpretation Comments WBC (test code = WBC) 5.7 3.7-10.4 [facility] GreenvilleSbzanukNGCOMJBHYI5521-02-13 07:51:00 Test Item Value Reference Range Interpretation Comments MCV (test code = MCV) 94.9 80.0-98.0 [facility] GreenvillePmfmruwAYPFZVPJYN5373-71-71 07:51:00 Test Item Value Reference Range Interpretation Comments RBC (test code = RBC) 3.73 4.20-5.40 [facility]villeSqqqqhkPBVCPOIUSW2637-37-08 07:51:00 Test Item Value Reference Range Interpretation Comments RDW (test code = RDW) 13.3 11.5-14.5 [facility] AustinAimzaqaPDXXZNLWMT0528-66-99 07:51:00 Test Item Value Reference Range Interpretation Comments Hgb (test code = Hgb) 12.1 12.0-16.0 [facility] AustinCnfjggkEPTZYZFJEO7634-92-89 07:51:00 Test Item Value Reference Range Interpretation Comments Hct (test code = Hct) 35.3 36.0-48.0 [facility]IriygqdLBWYMBLJKD7277-35-42 07:51:00 Test Item Value Reference Range Interpretation Comments Platelet (test code = Platelet) 158 133-450 [facility] SystemAmsdzjcZBRWHVPTDS2644-39-71 07:51:00 Test Item Value Reference Range Interpretation Comments MCHC (test code = MCHC) 34.2 32.0-36.0 [facility]FwxmuqeVJRKXCNFVM2001-62-73 07:51:00 Test Item Value Reference Range Interpretation Comments MCH (test code = MCH) 32.5 pg 27.0-31.0 [facility] AustinYfvkbtaIJHVYY7363-36-51 07:51:00 Test Item Value Reference Range Interpretation Comments CHD Risk (test code = CHD Risk) 2.81 3.90-5.80 [facility] SystemByswvyyESKSCS3820-02-66 07:51:00 Test Item Value Reference Range Interpretation Comments VLDL (test code = VLDL) 26 [facility] AustinNbahpkeJYWBCG5635-59-06 07:51:00 Test Item Value Reference Range Interpretation Comments LDL (Calculated) (test code = LDL 59 (Calculated)) [facility] AustinHpnlatjTMBRVQ1882-00-45 07:51:00 Test Item Value Reference Range Interpretation Comments Trig (test code = Trig) 128 [facility] SystemCybjlzyTMAGMD7842-66-67 07:51:00 Test Item Value Reference Range Interpretation Comments HDL (test code = HDL) 47 [facility] SystemLogpdkjWVUODZ1717-99-60 07:51:00 Test Item Value Reference Range Interpretation Comments Chol (test code = Chol) [facility] SUUVKRASD4120-29-06 07:51:00 Test Item Value Reference Range Interpretation Comments Hgb A1C (test code = Hgb A1C) 5.6 [facility] AustinCHEM IKENO4752-87-23 07:51:00 Test Item Value Reference Range Interpretation Comments A/G Ratio (test code = A/G Ratio) 1.2 0.7-1.6 [facility]2015-02-02 07:51:00 Test Item Value Reference Range Interpretation Comments Globulin (test code = Globulin) 3.2 2.0-4.0 [facility]2015-02-02 07:51:00 Test Item Value Reference Range Interpretation Comments B/C Ratio (test code = B/C Ratio) 22 6-25 [facility]2015-02-02 07:51:00 Test Item Value Reference Range Interpretation Comments AGAP (test code = AGAP) 9.8 10.0-20.0 [facility]2015-02-02 07:51:00 Test Item Value Reference Range Interpretation Comments eGFR (test code = eGFR) 29 [facility]2015-02-02 07:51:00 Test Item Value Reference Range Interpretation Comments Glucose Lvl (test code = Glucose Lvl) 125 70-99 [facility]2015-02-02 07:51:00 Test Item Value Reference Range Interpretation Comments Calcium Lvl (test code = Calcium Lvl) 8.7 8.5-10.5 [facility]2015-02-02 07:51:00 Test Item Value Reference Range Interpretation Comments ALT (test code = ALT) 29 See_Comment [Auto mated message] The system which ge nerated this result transmit elly reference range : <=65. The reference range was not used to interpr et this result as maren l/abnormal. [facility]2015-02-02 07:51:00 Test Item Value Reference Range Interpretation Comments AST (test code = AST) 17 See_Comment [Auto mated message] The system which ge nerated this result transmit elly reference range : <=37. The reference range was not used to interpr et this result as maren l/abnormal. [facility]2015-02-02 07:51:00 Test Item Value Reference Range Interpretation Comments Albumin Lvl (test code = Albumin Lvl) 3.7 3.5-5.0 [facility]2015-02-02 07:51:00 Test Item Value Reference Range Interpretation Comments Total Protein (test code = Total 6.9 6.4-8.4 Protein) [facility]2015-02-02 07:51:00 Test Item Value Reference Range Interpretation Comments CO2 (test code = CO2) 28 24-32 [place] 163165-02-02 07:51:00 Test Item Value Reference Range Interpretation Comments Chloride Lvl (test code = Chloride Lvl) 103 95-109 [facility]2015-02-02 07:51:00 Test Item Value Reference Range Interpretation Comments Potassium Lvl (test code = Potassium 3.8 3.5-5.1 Lvl) [facility]2015-02-02 07:51:00 Test Item Value Reference Range Interpretation Comments Sodium Lvl (test code = Sodium Lvl) 137 135-145 [facility]2015-02-02 07:51:00 Test Item Value Reference Range Interpretation Comments Creatinine Lvl (test code = Creatinine 1.7 0.5-1.4 Lvl) [facility]2015-02-02 07:51:00 Test Item Value Reference Range Interpretation Comments BUN (test code = BUN) 37 7-22 [facility]2015-02-02 07:51:00 Test Item Value Reference Range Interpretation Comments Alk Phos (test code = Alk Phos) 37 39-136 [facility]2015-02-02 07:51:00 Test Item Value Reference Range Interpretation Comments Bili Total (test code = Bili Total) 0.4 0.2-1.3 [facility]villeQrjraefZOTQEABUQC1523-78-79 07:51:00 Test Item Value Reference Range Interpretation Comments Monocytes # (test code 0.4 See_Comment [Aut omated message] The = Monocytes #) system which generated this result tra nsmitted reference range : <=0.8. The reference r criss was not used to int erpret this result as normal/abnormal . [facility] GreenvilleEekiptsLXBHBGSHJD3181-42-46 07:51:00 Test Item Value Reference Range Interpretation Comments Lymphocytes # (test code = Lymphocytes 1.1 1.0-5.5 #) [facility]villeXmubgabLGCUJEOXUI9318-35-30 07:51:00 Test Item Value Reference Range Interpretation Comments Eosinophils # (test code 0.1 See_Comment [A utomated message] The = Eosinophils #) system whic h generated this result tra nsmitted reference range : <=0.5. The reference r criss was not used to int erpret this result as normal/abnormal . [facility] GreenvilleUnuoeeaHBALJMVYDS6984-57-31 07:51:00 Test Item Value Reference Range Interpretation Comments Segs (test code = Segs) 70.9 45.0-75.0 [facility] GreenvilleNzbjmtrUJLFEDJADP6160-51-64 07:51:00 Test Item Value Reference Range Interpretation Comments Monocytes (test code = Monocytes) 6.7 2.0-12.0 [facility] GreenvilleFqlolemOAGRGKRKDE3404-44-23 07:51:00 Test Item Value Reference Range Interpretation Comments Lymphocytes (test code = Lymphocytes) 19.7 20.0-40.0 [facility] GreenvilleSylkztwRKNICYDAPH0359-08-17 07:51:00 Test Item Value Reference Range Interpretation Comments Eosinophils (test code = 2.3 See_Comment [A utomated message] The Eosinophils) system which ge nerated this result tra nsmitted reference range : <=4.0. The reference r criss was not used to int erpret this result as normal/abnormal . [facility] GreenvilleIcxvoaeGBDLJYTNKS6755-63-26 07:51:00 Test Item Value Reference Range Interpretation Comments Segs-Bands # (test code = Segs-Bands #) 4.0 1.5-8.1 [facility] GreenvilleOpuohqxKIMRKSVQDH4453-30-20 07:51:00 Test Item Value Reference Range Interpretation Comments Basophils (test code = 0.4 See_Comment [Aut omated message] The Basophils) system which ge nerated this result tra nsmitted reference range : <=1.0. The reference r criss was not used to int erpret this result as normal/abnormal . [facility] GreenvilleOngdkjmRSWYODGATK6137-19-55 07:51:00 Test Item Value Reference Range Interpretation Comments PTT (test code = PTT) 28.2 s 22.9-35.8 [facility] GreenvilleWvfoehvKJVAFXHGFY4461-03-68 07:51:00 Test Item Value Reference Range Interpretation Comments PT (test code = PT) 13.9 s 12.0-14.7 [facility] GreenvilleMhoyhpsGYRZFJYKYC8551-76-01 07:51:00 Test Item Value Reference Range Interpretation Comments INR (test code = INR) 1.07 0.85-1.17 [facility] GreenvilleQuefkeeKJXHVWKBBG1116-57-48 07:51:00 Test Item Value Reference Range Interpretation Comments MPV (test code = MPV) 8.8 7.4-10.4 [facility] GreenvilleYkibinkFLSBLYUBOK2613-82-32 07:51:00 Test Item Value Reference Range Interpretation Comments WBC (test code = WBC) 5.7 3.7-10.4 [facility] GreenvilleJjpmnsqAQPANNXTKC7485-78-08 07:51:00 Test Item Value Reference Range Interpretation Comments MCV (test code = MCV) 94.9 80.0-98.0 [facility] GreenvilleVspxhrrNDBHYNZMGZ6946-60-55 07:51:00 Test Item Value Reference Range Interpretation Comments RBC (test code = RBC) 3.73 4.20-5.40 [facility] GreenvilleQsmwnhbRJDSKCPLXM1028-15-61 07:51:00 Test Item Value Reference Range Interpretation Comments RDW (test code = RDW) 13.3 11.5-14.5 [facility] GreenvilleFvxdderZNAQPCRQBO3445-89-36 07:51:00 Test Item Value Reference Range Interpretation Comments Hgb (test code = Hgb) 12.1 12.0-16.0 [place] 140015-02-02 07:51:00 Test Item Value Reference Range Interpretation Comments Hct (test code = Hct) 35.3 36.0-48.0 [facility] GreenvilleXykzqpdGZLVVCQMZB5957-96-57 07:51:00 Test Item Value Reference Range Interpretation Comments Platelet (test code = Platelet) 158 133-450 [facility] GreenvilleZldwgbpQZUECDWGRU4797-13-33 07:51:00 Test Item Value Reference Range Interpretation Comments MCHC (test code = MCHC) 34.2 32.0-36.0 [facility] GreenvilleHdjqrcwAQQKYQHGAH2951-00-87 07:51:00 Test Item Value Reference Range Interpretation Comments MCH (test code = MCH) 32.5 pg 27.0-31.0 [facility] GreenvilleFchkjbvWOTKUJ7578-57-17 07:51:00 Test Item Value Reference Range Interpretation Comments CHD Risk (test code = CHD Risk) 2.81 3.90-5.80 [facility] GreenvilleFrhldhpLGNTEK4035-07-02 07:51:00 Test Item Value Reference Range Interpretation Comments VLDL (test code = VLDL) 26 [facility] GreenvilleYwbreaxLXZMJB0272-37-39 07:51:00 Test Item Value Reference Range Interpretation Comments LDL (Calculated) (test code = LDL 59 (Calculated)) [facility] GreenvilleJhcmzrrNQMZOV5275-31-48 07:51:00 Test Item Value Reference Range Interpretation Comments Trig (test code = Trig) 128 [facility] GreenvilleEugarfmKISJCN0806-55-08 07:51:00 Test Item Value Reference Range Interpretation Comments HDL (test code = HDL) 47 [facility] AustinYgbpjjjNDZDGE5920-91-80 07:51:00 Test Item Value Reference Range Interpretation Comments Chol (test code = Chol) 132 [facility] CSOJFSCRS9549-48-36 07:51:00 Test Item Value Reference Range Interpretation Comments Hgb A1C (test code = Hgb A1C) 5.6 [facility]
[2023-02-03] MEDS ORDERED: ASPIRIN 81 MG CHEWABLE TABLET ONE (22:18)
[2023-02-03] MEDS ORDERED: NITROGLYCERIN 0.4 MG/TAB SL ONE (22:19)
[2023-02-03 22:39] LABS: Absolute Lymphocytes (CBC) 1.2 K/uL (0.7-4.9); Hematocrit 31.5 % (36.0-45.0); Lymphocytes % 21.9 % (15.3-44.8); MCV 87.8 fL (80-100); MPV 7.4 fL (7.6-11.3); RBC Red Blood Cell Count 3.59 M/uL (3.86-4.86)
[2023-02-03 23:03] LABS: Albumin 3.2 g/dL (3.4-5.0); Bilirubin Direct 0.1 mg/dL (0-0.2); Bilirubin Total 0.3 mg/dL (0.2-1.0); Potassium 3.7 mEq/L (3.5-5.1); Protein, Total 6.8 g/dL (6.4-8.2); Troponin High Sensitivity 15.2 pg/mL (<58.9)
--- NOTE | 2023-02-03 23:13 | EDPHYS ---
Physician Documentation [facility] Name: Kristal You Age: 82 yrs Sex: Female : 1940 Arrival Date: 02/03/2023 Time: 21:54 Bed 18 Private MD: ED Physician Rudi Wray HPI: 02/03 23:20 This 82 yrs old Female presents to ER via EMS with complaints of Chest Pain > 30 y/o, rt High Blood Pressure. 23:20 Patient presents to the ED with a chest pain occurring about 1 hour prior to arrival. rt It is constant. It is substernal, nonradiating. She reports shortness of breath but denies other acute complaints at this time. Symptoms are moderate severity, no other aggravating or elevating factors.. Historical: - Allergies: 22:56 LETY INHIBITORS; pf1 02/04 05:02 Nembutal Sodium; pf1 - PMHx: 02/03 22:56 Asthma; Atrial Fib; Chronic obstructive lung disease; Congestive heart failure; CVA; pf1 Hypertension; Hypothyroidism; Myocardial infarction; UTI; neuropathy; Hypercholesterolemia; - PSHx: 22:56 ablation; Cholecystectomy; cardiac stent; pf1 - Immunization history:: Adult Immunizations up to date, Client reports receiving the 2nd dose of the Covid vaccine, 4 doses Last tetanus immunization: > 10 years ago Flu vaccine is up to date. - Social history:: Smoking status: Patient/guardian denies using tobacco, the patient reports quitting approximately 40 years ago, Patient/guardian denies using alcohol, street drugs. - Family history:: not pertinent. ROS: 23:20 Constitutional: Negative for fever, chills, and weight loss, Eyes: Negative for injury, rt pain, redness, and discharge, Abdomen/GI: Negative for abdominal pain, nausea, vomiting, diarrhea, and constipation, MS/Extremity: Negative for injury and deformity, Skin: Negative for injury, rash, and discoloration, Neuro: Negative for headache, weakness, numbness, tingling, and seizure, Psych: Negative for depression, anxiety, suicide ideation, homicidal ideation, and hallucinations. 23:20 Cardiovascular: Positive for chest pain, Negative for edema. 23:20 Respiratory: Positive for shortness of breath, Negative for wheezing. Exam: 23:20 Constitutional: This is a well developed, well nourished patient who is awake, alert, rt and in no acute distress. Head/Face: Normocephalic, atraumatic. Chest/axilla: Normal chest wall appearance and motion. Nontender with no deformity. No lesions are appreciated. Cardiovascular: Regular rate and rhythm with a normal S1 and S2. No gallops, murmurs, or rubs. Normal PMI, no JVD. No pulse deficits. Respiratory: Lungs have equal breath sounds bilaterally, clear to auscultation and percussion. No rales, rhonchi or wheezes noted. No increased work of breathing, no retractions or nasal flaring. Abdomen/GI: Soft, non-tender, with normal bowel sounds. No distension or tympany. No guarding or rebound. No evidence of tenderness throughout. Skin: Warm, dry with normal turgor. Normal color with no rashes, no lesions, and no evidence of cellulitis. MS/ Extremity: Pulses equal, no cyanosis. Neurovascular intact. Full, normal range of motion. Neuro: Awake and alert, GCS 15, oriented to person, place, time, and situation. Cranial nerves II-XII grossly intact. Motor strength 5/5 in all extremities. Sensory grossly intact. Cerebellar exam normal. Normal gait. Psych: Awake, alert, with orientation to person, place and time. Behavior, mood, and affect are within normal limits. 23:20 ECG was reviewed by the Attending Physician. Vital Signs: 21:55 BP 180 / 73; Pulse 84; Resp 17; Temp 97.6; Pulse Ox 100% on R/A; Weight 110.22 kg; pf1 Height 5 ft. 2 in. ; Pain 7/10; 22:45 BP 149 / 66; Pulse 77; Resp 16; Pulse Ox 99% on R/A; Pain 0/10; pf1 23:25 BP 146 / 61; Pulse 77; Resp 17; Pulse Ox 99% on R/A; Pain 0/10; pf1 21:55 Body Mass Index 44.44 (110.22 kg, 157.48 cm) pf1 21:55 Pain Scale: Adult pf1 22:45 Pain Scale: Adult pf1 23:25 Pain Scale: Adult pf1 MDM: 21:58 Patient medically screened. rt 23:22 Differential diagnosis: acute myocardial infarction, acute pericarditis, coronary rt artery disease chest wall pain, congestive heart failure pneumonia, pneumothorax, pulmonary embolus. HEART Score: History: Highly Suspicious (2), ECG: Non specific repolarization disturbance / LBTB / PM (1), Age: > or = 65 years (2), Risk Factors: > or = 3 Risk factors for atherosclerotic disease (2), Troponin: < or = 1 x Normal Limit (0), Total Score = 7. The patient was given aspirin in the Emergency Department. Data reviewed: vital signs, nurses notes, lab test result(s), EKG, radiologic studies. Consideration of Admission/Observation Patient was admitted/placed on observation. Management of patient was discussed with the following: Primary Care Provider: Agrees to admit. I considered the following discharge prescriptions or medication management in the emergency department Medications were administered in the Emergency Department. See MAR. Test considered but Not performed: CT: Low suspicion for PE, CT angiogram not indicated. Response to treatment: the patient's symptoms have resolved after treatment. 02/03 21:58 Order name: Basic Metabolic Panel; Complete Time: 23:04 rt 02/03 21:58 Order name: CBC with Diff; Complete Time: 22:55 rt 02/03 21:58 Order name: LFT's; Complete Time: 23:04 rt 02/03 21:58 Order name: NT PRO-BNP; Complete Time: 23:04 rt 02/03 21:58 Order name: Troponin HS; Complete Time: 23:04 rt 02/04 02:26 Order name: Protime (+INR); Complete Time: 02:52 EDMS 02/04 02:26 Order name: PTT, Activated Partial Thromb; Complete Time: 02:52 EDMS 02/04 02:50 Order name: Troponin High Sensitivity; Complete Time: 02:52 EDMS 02/04 05:10 Order name: CBC with Automated Diff; Complete Time: 05:12 EDMS 02/04 05:11 Order name: Urinalysis w/ reflexes; Complete Time: 05:12 EDMS 02/04 05:23 Order name: Comprehensive Metabolic Panel; Complete Time: 06:00 EDMS 02/04 05:23 Order name: Troponin High Sensitivity; Complete Time: 06:00 EDMS 02/04 10:13 Order name: Troponin High Sensitivity EDMS 02/03 21:58 Order name: XRAY Chest (1 view) rt 02/03 21:58 Order name: EKG; Complete Time: 21:59 rt 02/04 08:22 Order name: Diet Heart Healthy; Complete Time: 08:23 ld1 02/03 21:58 Order name: Cardiac monitoring; Complete Time: 22:02 rt 02/03 21:58 Order name: EKG - Nurse/Tech; Complete Time: 22:02 rt 02/03 21:58 Order name: IV Saline Lock; Complete Time: 22:02 rt 02/03 21:58 Order name: Labs collected and sent; Complete Time: 23:00 rt 02/03 21:58 Order name: O2 Per Protocol; Complete Time: 22:03 rt 02/03 21:58 Order name: O2 Sat Monitoring; Complete Time: 22:03 rt EC:20 Rate is 89 beats/min. Rhythm is regular, Normal Sinus Rhythm with No ectopy. QRS [place] rt is Normal. TX interval is normal. QRS interval is normal. QT interval is normal. No Q waves. Clinical impression: NSR w/ Non-specific ST/T Changes. Administered Medications: 22:15 Drug: Aspirin PO Chewable Tablet 324 mg Route: PO; pf1 23:00 Follow up: Response: No adverse reaction; Marked relief of symptoms pf1 22:17 Drug: Nitroglycerin Sublingual 0.4 mg Route: Sublingual; pf1 22:23 Drug: Nitroglycerin Sublingual 0.4 mg Route: Sublingual; pf1 22:27 Drug: Nitroglycerin Sublingual 0.4 mg Route: Sublingual; pf1 22:50 Follow up: Response: No adverse reaction; Marked relief of symptoms; Pain is decreased pf1 Disposition Summary: 02/03/23 23:12 Hospitalization Ordered Hospitalization Status: Observation rt Provider: Judd Gurrola rt Condition: Stable rt Problem: new rt Symptoms: are resolved rt Bed/Room Type: Standard rt Location: Telemetry/MedSurg (Inpatient)(02/04/23 11:27) eb Room Assignment: 403(02/04/23 11:55) eb Diagnosis - Chest pain, unspecified rt Forms: - Medication Reconciliation Form rt - SBAR form rt Signatures: Dispatcher [employer] Kesha More RN RN Melanie Joy Ryan, MD MD rt Elizabet villeda RN RN pf1 Corrections: (The following items were deleted from the chart) 23:25 23:12 Telemetry/MedSurg (observation) rt cg 23: 23:12 rt cg 02/04 05:03 02/03 22:56 Allergies: nimbutol; pf1 pf1 02/04 11:27 02/03 23:25 [facility] ER HOLD cg eb 02/04 11:27 02/03 23:25 ERHOLD- cg eb 02/04 11:55 11:27 430 eb eb
--- NOTE | 2023-02-03 23:13 | ER ---
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 Patient stated has not been feeling good all week and has been stressed out and also having indigestion. 21:55 Coronavirus screen: Vaccine status: Patient reports receiving the 2nd dose of the covid pf1 vaccine. 4 doses of pfizer Client denies travel out of the [place] in the last 14 days. At this time, the client does not indicate any symptoms associated with coronavirus-19. Ebola Screen: Patient negative for fever greater than or equal to 101.5 degrees Fahrenheit, and additional compatible Ebola Virus Disease symptoms. Initial Sepsis Screen: Does the patient meet any 2 criteria? No. Patient's initial sepsis screen is negative. Does the patient have a suspected source of infection? No. Patient's initial sepsis screen is negative. Risk Assessment: Do you want to hurt yourself or someone else? Patient reports no desire to harm self or others. Onset of symptoms was February 03, 2023. 21:55 Method Of Arrival: EMS: [facility] pf1 21:55 Acuity: LUCINA 2 pf1 Triage Assessment: 21:55 General: Appears in no apparent distress. comfortable, obese, well groomed, well pf1 developed, Behavior is calm, cooperative, appropriate for age, quiet. 21:55 Pain: Complains of pain in chest Pain currently is 7 out of 10 on a pain scale. Pain pf1 began 1 hour ago. EENT: No deficits noted. Neuro: No deficits noted. Level of Consciousness is awake, alert, obeys commands, Oriented to person, place, time, situation. Cardiovascular: Chest pain began 1 hour prior to arrival. Respiratory: Airway is patent Trachea midline Respiratory effort is even, unlabored, Respiratory pattern is regular, symmetrical, Breath sounds are clear bilaterally. GI: No deficits noted. No signs and/or symptoms were reported involving the gastrointestinal system. : No deficits noted. No signs and/or symptoms were reported regarding the genitourinary system. Derm: No deficits noted. No signs and/or symptoms reported regarding the dermatologic system. Musculoskeletal: Swelling present in bilateral feet and leg with +3 pitting edema with rash to anterior right leg and pain to right leg Reports. Historical: - Allergies: 22:56 LETY INHIBITORS; pf1 02/04 05:02 Nembutal Sodium; pf1 - PMHx: 02/03 22:56 Asthma; Atrial Fib; Chronic obstructive lung disease; Congestive heart failure; CVA; pf1 Hypertension; Hypothyroidism; Myocardial infarction; UTI; neuropathy; Hypercholesterolemia; - PSHx: 22:56 ablation; Cholecystectomy; cardiac stent; pf1 - Immunization history:: Adult Immunizations up to date, Client reports receiving the 2nd dose of the Covid vaccine, 4 doses Last tetanus immunization: > 10 years ago Flu vaccine is up to date. - Social history:: Smoking status: Patient/guardian denies using tobacco, the patient reports quitting approximately 40 years ago, Patient/guardian denies using alcohol, street drugs. - Family history:: not pertinent. Screenin:55 [facility] ED Fall Risk Assessment (Adult) History of falling in the last 3 months, pf1 including since admission No falls in past 3 months (0 pts) Confusion or Disorientation No (0 pts) Intoxicated or Sedated No (0 pts) Impaired Gait No (0 pts) Mobility Assist Device Used No (0 pt) Altered Elimination No (0 pt) Score/Fall Risk Level 0 - 2 = Low Risk Oriented to surroundings, Maintained a safe environment, Educated pt \T\ family on fall prevention, incl call for assistance when getting out of bed, Assessed \T\ reinforced patient's understanding of fall precautions, Provided non-skid footwear, Hourly rounding (assess needs \T\ fall precautionary measures) done, Used ambulatory aids as needed (educated on \T\ assisted with), Used gait belt as appropriate. 21:55 Abuse screen: Denies threats or abuse. Nutritional screening: No deficits noted. pf1 Tuberculosis screening: No symptoms or risk factors identified. Assessment: 22:00 Pain: Pain does not radiate. pf1 23:00 Reassessment: Patient appears in no apparent distress at this time. Patient and/or pf1 family updated on plan of care and expected duration. Pain level reassessed. Patient is alert, oriented x 3, equal unlabored respirations, skin warm/dry/pink. Patient states feeling better. Patient states symptoms have improved. 02/04 00:00 Reassessment: Patient appears in no apparent distress at this time. Patient and/or pf1 family updated on plan of care and expected duration. Pain level reassessed. Patient is alert, oriented x 3, equal unlabored respirations, skin warm/dry/pink. Patient states feeling better. Patient states symptoms have improved. Vital Signs: 02/03 21:55 BP 180 / 73; Pulse 84; Resp 17; Temp 97.6; Pulse Ox 100% on R/A; Weight 110.22 kg; pf1 Height 5 ft. 2 in. ; Pain 7/10; 22:45 BP 149 / 66; Pulse 77; Resp 16; Pulse Ox 99% on R/A; Pain 0/10; pf1 23:25 BP 146 / 61; Pulse 77; Resp 17; Pulse Ox 99% on R/A; Pain 0/10; pf1 21:55 Body Mass Index 44.44 (110.22 kg, 157.48 cm) pf1 21:55 Pain Scale: Adult pf1 22:45 Pain Scale: Adult pf1 23:25 Pain Scale: Adult pf1 ED Course: 21:55 No provider procedures requiring assistance completed. Maintain EMS IV. Dressing pf1 intact. Good blood return noted. Site clean \T\ dry. Gauge \T\ site: 22gauge. 21:55 Patient has correct armband on for positive identification. Bed in low position. Call pf1 light in reach. Side rails up X2. 21:55 Client placed on continuous cardiac and pulse oximetry monitoring. NIBP monitoring pf1 applied. avionics technician on. 21:57 Patient arrived in ED. rv1 21:58 Rudi Wray MD is Attending Physician. rt 22:00 Arm band placed on. pf1 22:02 Elizabet villeda RN is Primary Nurse. pf1 22:25 Inserted saline lock: 22 gauge in left upper arm, using aseptic technique. Blood pf1 collected. 22:25 Patient maintains SpO2 saturation greater than 95% on room air. pf1 22:48 XRAY Chest (1 view) In Process Unspecified. EDMS 22:56 Triage completed. pf1 23:00 IV discontinued, intact, bleeding controlled, No redness/swelling at site. Pressure pf1 dressing applied, 22 gauge removed from left wrist per patient request. 23:12 Judd Gurrola MD is Hospitalizing Provider. rt 23:25 Patient admitted, IV remains in place. pf1 Administered Medications: 22:15 Drug: Aspirin PO Chewable Tablet 324 mg Route: PO; pf1 23:00 Follow up: Response: No adverse reaction; Marked relief of symptoms pf1 22:17 Drug: Nitroglycerin Sublingual 0.4 mg Route: Sublingual; pf1 22:23 Drug: Nitroglycerin Sublingual 0.4 mg Route: Sublingual; pf1 22:27 Drug: Nitroglycerin Sublingual 0.4 mg Route: Sublingual; pf1 22:50 Follow up: Response: No adverse reaction; Marked relief of symptoms; Pain is decreased pf1 Medication: 02/04 00:14 VIS not applicable for this client. pf1 Outcome: 02/03 23:12 Decision to Hospitalize by Provider. rt 23:25 Admitted to ER Hold. Please see [facility] for further documentation. pf1 23:25 Condition: stable pf1 23:25 Instructed on the need for admit, Demonstrated understanding of instructions. 02/04 12:03 Patient left the ED. 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 Patient stated has not been feeling good all week and has been stressed out with indigestion. pf1
[2023-02-04 02:26] LABS: Protime INR 1.13
[2023-02-04] MEDS ORDERED: CLOPIDOGREL 75 MG TABLET PO ONE (03:07)
[2023-02-04 05:02] LABS: Absolute Lymphocytes (CBC) 1.3 K/uL (0.7-4.9); Hematocrit 29.7 % (36.0-45.0); Lymphocytes % 26.3 % (15.3-44.8); MCV 87.4 fL (80-100); MPV 7.5 fL (7.6-11.3)
[2023-02-04 05:09] LABS: Specific Gravity 1.017 (1.005-1.030); Urine Bacteria 20-50 /HPF (<20); Urine Bilirubin NEGATIVE (Negative); Urine Blood Negative (Negative); Urine Clarity Turbid (Clear); Urine Color Light-Yellow (Yellow); Urine Glucose NEGATIVE (Negative); Urine Mucus Slight /HPF (None Seen); Urine Protein TRACE (Negative); Urine RBC <5 /HPF (None Seen); Urine Urobilinogen Normal (Normal); Urine WBC Clump Rare /HPF (None Seen); Urine pH 5.5 (5.0-7.0)
[2023-02-04 05:19] LABS: Bilirubin Total 0.3 mg/dL (0.2-1.0); Potassium 3.9 mEq/L (3.5-5.1); Protein, Total 6.4 g/dL (6.4-8.2)
[2023-02-04] MEDS ORDERED: APIXABAN 2.5 MG TABLET PO SCH ×2 (10:22→21:00)
[2023-02-04] MEDS ORDERED: APIXABAN 5 MG TABLET ONE (10:31)
[2023-02-04] MEDS: Budesonide/Glycopyr/Formoterol [Breztri Aerosphere Inhaler] 10.7 GM Hfa IH SCH ×2 (12:00→21:00)
[2023-02-04] MEDS ORDERED: ALBUTEROL INHALER 60 PUFF/8 GM IH PRN (12:45)
[2023-02-04] MEDS: ISOSORBIDE MONO SR 60 MG TAB PO SCH (13:08)
[2023-02-04] MEDS: cloNIDine HCL 0.1 MG TAB PO SCH ×2 (13:08→21:00)
[2023-02-04] MEDS: METOPROLOL TAR 25 MG TAB PO SCH ×2 (13:08→21:00)
[2023-02-04] MEDS: GABAPENTIN 300 MG CAP PO SCH ×2 (13:08→21:24)
[2023-02-04] MEDS: LOSARTAN POTASSIUM 50 MG TABLET PO SCH ×2 (13:09→21:00)
[2023-02-04] MEDS: HYDRALAZINE HCL 25 MG TABLET PO SCH ×2 (13:09→21:00)
[2023-02-04] MEDS: DILTIAZEM HCL 120 MG SR CAP PO SCH (13:10)
[2023-02-04] MEDS: ACETAMINOPHEN 500 MG TAB PO PRN (13:16)
[2023-02-04] MEDS ORDERED: HYDRALAZINE HCL 25 MG TABLET PO SCH (14:00)
[2023-02-04] MEDS: ONDANSETRON 4 MG/2 ML VIAL IV PRN (14:46)
--- NOTE | 2023-02-04 20:07 | RAD REPORT ---
EXAM DESCRIPTION: RAD - Chest Single View - 02/03/2023 10:46 pm CLINICAL HISTORY: 82 years Female, CHEST PAIN TECHNIQUE: 1 view (Single frontal view of the chest) COMPARISON: 07/14/2022 FINDINGS: Patient's body habitus results in projectional magnification artifact. LINES AND TUBES: None. CARDIOVASCULAR STRUCTURES: Borderline hepatomegaly. Mild pulmonary venous congestion. LUNGS: No confluent areas of acute consolidation. PLEURA: No layering pleural effusions. No pneumothorax. BONES: No acute osseous abnormality of the thorax. IMPRESSION: 1. Mild pulmonary venous congestion. Electronically signed by: Schuyler Swan MD 02/03/2023 11:36 PM CDT Due to temporary technical issues with the PACS/Fluency reporting system, reports are being signed by the in house radiologists without review as a courtesy to insure prompt reporting. The interpreting radiologist is fully responsible for the content of the report.
[2023-02-04] MEDS ORDERED: METOPROLOL TAR 25 MG TAB PO SCH (21:00)
[2023-02-04] MEDS ORDERED: APIXABAN 5 MG TABLET PO SCH (21:00)
[2023-02-04] MEDS ORDERED: LOSARTAN POTASSIUM 50 MG TABLET PO SCH (21:00)
[2023-02-04] MEDS ORDERED: cloNIDine HCL 0.1 MG TAB PO SCH (21:00)
[2023-02-04] MEDS: FUROSEMIDE 40 MG TABLET PO SCH (21:23)
[2023-02-04] MEDS: ATORVASTATIN 80 MG TAB PO SCH (21:23)
[2023-02-04] MEDS: POTASSIUM CL SA 10 MEQ TAB PO SCH (21:23)
[2023-02-04] MEDS: APIXABAN 2.5 MG TABLET PO SCH (21:24)
[2023-02-05] MEDS: LEVOTHYROXINE SOD 0.1 MG TAB PO SCH (06:43)
[2023-02-05] MEDS: PANTOPRAZOLE 40MG TABLET PO SCH (06:43)
[2023-02-05] MEDS: ISOSORBIDE MONO SR 60 MG TAB PO SCH (08:24)
[2023-02-05] MEDS: DOXAZOSIN 4 MG TAB PO SCH (08:24)
[2023-02-05] MEDS: LIOTHYRONINE SOD 5 MCG TAB PO SCH (08:24)
[2023-02-05] MEDS: MONTELUKAST 10 MG TAB PO SCH (08:24)
[2023-02-05] MEDS: APIXABAN 2.5 MG TABLET PO SCH (08:25)
[2023-02-05] MEDS: METOPROLOL TAR 25 MG TAB PO SCH ×2 (08:25→20:53)
[2023-02-05] MEDS: DILTIAZEM HCL 120 MG SR CAP PO SCH (08:25)
[2023-02-05] MEDS: HYDRALAZINE HCL 25 MG TABLET PO SCH ×3 (08:25→20:53)
[2023-02-05] MEDS: CLOPIDOGREL 75 MG TABLET PO SCH (08:25)
[2023-02-05] MEDS: GABAPENTIN 300 MG CAP PO SCH ×3 (08:25→20:52)
[2023-02-05] MEDS: cloNIDine HCL 0.1 MG TAB PO SCH ×2 (08:25→20:53)
[2023-02-05] MEDS: FOLIC ACID 1 MG TABLET PO SCH (08:25)
[2023-02-05] MEDS: NITROFURAN MACRO 100 MG CAP PO SCH (08:26)
[2023-02-05] MEDS: FUROSEMIDE 40 MG TABLET PO SCH ×2 (08:26→20:53)
[2023-02-05] MEDS: POTASSIUM CL SA 10 MEQ TAB PO SCH ×2 (08:26→20:52)
[2023-02-05] MEDS: LOSARTAN POTASSIUM 50 MG TABLET PO SCH ×2 (08:26→20:53)
[2023-02-05] MEDS ORDERED: DILTIAZEM HCL 120 MG SR CAP PO SCH (09:00)
[2023-02-05] MEDS: Budesonide/Glycopyr/Formoterol [Breztri Aerosphere Inhaler] 10.7 GM Hfa IH SCH ×2 (09:00→21:00)
--- NOTE | 2023-02-05 11:51 | PN ---
Date of Progress Note: 02/05/2023 Subjective: The patient was seen this morning for followup. No new complaints or problems reported by the patient. Lying in bed, not in any distress. Denies any chest pain, and reports that after I saw her yesterday, she has not had any recurrence of chest pain and her indigestion problem has resol maxwell also. Denies any shortness of breath. No nausea, vomiting. Objective: Vital Signs: Reviewed. HEENT: Unremarkable. Lungs: Clear to auscultation. Heart: Sounds normal. Abdomen: Soft. Bowel sounds normal. No guarding, rigidity, tenderness, distention. Extremities: Trace leg edema. Impression: 1.Chest pain. 2.Coronary artery disease. 3.Hypertension. 4.Hyperlipidemia. 5.Paroxysmal atrial fibrillation. 6.Chronic anticoagulation therapy. Plan: We will go ahead and continue current antihypertensive medication. Continue current anti-plat elet therapy and anticoagulation medication. The patient reports that Dr. Colbert did visit her yeste rday. We are waiting for his recommendation and continue to follow up with him. I will see her selina leary for followup. YOLY/MODL Voice ID: [id number] Report ID: [id number]
--- NOTE | 2023-02-05 12:12 | HP ---
Date of Admission: 02/05/2023 Chief Complaint: Chest pain and indigestion. History Of Present Illness: This is an 82-year-old female patient, came into emergency room with complaints of left-sided chest pain and some indigestion type of symptoms associated with this chest pain. The patient says she usually does not have any heartburn or indigestion problem. She came into emergency room with this. Denies any nausea or shortness of breath. No fever. No cough, congestion. After she came into emergency room, she was given sublingual nitroglycerin tablet and her chest pain problem has resolved and indigestion problem is better as she reports. I saw her in the emergency room for this admission. Allergies: NO KNOWN ALLERGIES. Medications: Medications list reviewed. Review of Systems: Cardiovascular: As mentioned above. All other systems reviewed and negative. Past Medical History: Significant for TIA on September 07, 2021. Prior to that,she had stroke in the past, CAD allergic rhinitis, hypothyroidism, hypertension, impaired fasting glucose, moderate persistent asthma, hypertension, hyperlipidemia, coronary artery disease, chronic diastolic heart failure, paroxysmal atrial fibrillation, gastroesophageal reflux disease, osteoarthritis,hyponatremia. Cardiac cath done on 05/31/2021 shows 60% stenosis of proximal LAD and OM1 and distal circumflex. Past Surgical History: Significant for cholecystectomy, appendectomy, rectocelerepair, hysterectomy, bladder suspension, shoulder surgery, carpal tunnel surgery, and knee surgery. Family History: Father had heart disease. Mother had pancreatic cancer. Sister also had pancreatic cancer. Social History: Negative for alcohol use. Prior history of smoking, but not at present time Physical Examination: Vital Signs: Temperature 97.9, pulse 78, respiratory rate 18, blood pressure 168/56, oxygen saturation 99% on room air. Height 5 feet 2 inches, weight 200. General: Awake, alert, oriented, not in distress. HEENT: Head atraumatic, normocephalic. Conjunctivae nonerythematous. Sclerae white. Mouth, no thrush or edema noted. Ears/Nose, no mass, lesion, discharge noted. Neck: Supple. No JVD, lymph nodes, bruit, thyromegaly noted. Lungs: Bilateral good equal air entry. Clear to auscultation. No rhonchi. No rales. Heart: Normal heart sounds, no murmur or gallop. Abdomen: Soft, bowel sounds normal. No guarding, rigidity, tenderness, mass, hepatosplenomegaly, distention, or bruit noted. Extremities: Trace bilateral leg edema. Skin: No rash, ulcer, cellulitis. Lymphatics: No lymph node enlargement in neck, supraclavicular, infraclavicular region. Neuro: No focal neurological deficit. Chest: Unremarkable. External Genitalia: Deferred. Rectal: Deferred. Laboratory Data: Yesterday; white count 5.6, hemoglobin 10.4, platelets 160. Today; white count 5, hemoglobin 9.8, platelets 151. Yesterday; sodium 140, potassium 3.7, chloride 109, bicarb 28, BUN 19, creatinine 1.11, glucose 148. Liver function tests unremarkable. Initial troponin 15.2, second troponin 61.1, and third troponin 89 and fourth troponin 112 this morning. Chemistry from this morning; sodium 139, potassium 3.9, chloride 110, bicarb 29, BUN 19, creatinine 0.91, glucose 108. Liver function tests normal. Urinalysis more than 50 WBC, less than 5 RBC, leukocyte 500, nitrite negative, trace protein. EKG, no acute ST-T changes. Impression: 1. Chest pain. 2. Coronary artery disease. 3. Anemia, chronic, unspecified. 4. Hypertension. 5. Chronic diastolic heart failure. 6. Hyperlipidemia. 7. Hypothyroidism. 8. Gastroesophageal reflux disease. 9. Moderate persistent asthma. 10. Paroxysmal atrial fibrillation. 11. Chronic anticoagulation therapy. Plan: We will admit the patient to hospital for further evaluation and management of this problem. The patient is appropriate for inpatient and is expected to spend 2 midnights in hospital. We have obtained serial cardiac enzymes. They are slightly higher than normal, likely not due to acute myocardial infarction. The patient has underlying coronary artery disease in June of last year. She had coronary angioplasty with stent placement by our film cleaner. Cardiology consultation has been requested. The patient is on anti-platelet and anticoagulation therapy at home, which will be continued and we will follow up with film cleaner for the recommendation and further plan of treatment. For hypertension, we will continue antihypertensive medication per order. For her paroxysmal atrial fibrillation, we will continue her antiarrhythmic medication. For her chronic diastolic heart failure, we will continue her diuretic therapy per order. Anemia will not require any further intervention. Details and plan of treatment discussed with the patient and I will see her tomorrow for followup. YOLY/JAMIL Voice ID: [id number] MTDD
[2023-02-05] MEDS: ATORVASTATIN 80 MG TAB PO SCH (20:51)
[2023-02-05] MEDS: ENOXAPARIN 100 MG/ML SYR SQ SCH (20:51)
[2023-02-06] MEDS: PANTOPRAZOLE 40MG TABLET PO SCH (05:37)
[2023-02-06] MEDS: LEVOTHYROXINE SOD 0.1 MG TAB PO SCH (05:37)
[2023-02-06] MEDS: cloNIDine HCL 0.1 MG TAB PO SCH ×2 (08:29→21:02)
[2023-02-06] MEDS: DILTIAZEM HCL 120 MG SR CAP PO SCH (08:29)
[2023-02-06] MEDS: CLOPIDOGREL 75 MG TABLET PO SCH (08:30)
[2023-02-06] MEDS: DOXAZOSIN 4 MG TAB PO SCH (08:30)
[2023-02-06] MEDS: HYDRALAZINE HCL 25 MG TABLET PO SCH ×3 (08:30→21:01)
[2023-02-06] MEDS: FUROSEMIDE 40 MG TABLET PO SCH ×2 (08:30→21:01)
[2023-02-06] MEDS: POTASSIUM CL SA 10 MEQ TAB PO SCH ×2 (08:30→21:03)
[2023-02-06] MEDS: MONTELUKAST 10 MG TAB PO SCH (08:30)
[2023-02-06] MEDS: LIOTHYRONINE SOD 5 MCG TAB PO SCH (08:31)
[2023-02-06] MEDS: ENOXAPARIN 100 MG/ML SYR SQ SCH ×2 (08:31→21:04)
[2023-02-06] MEDS: METOPROLOL TAR 25 MG TAB PO SCH ×2 (08:31→21:00)
[2023-02-06] MEDS: FOLIC ACID 1 MG TABLET PO SCH (08:31)
[2023-02-06] MEDS: GABAPENTIN 300 MG CAP PO SCH ×3 (08:31→21:01)
[2023-02-06] MEDS: LOSARTAN POTASSIUM 50 MG TABLET PO SCH ×2 (08:31→21:03)
[2023-02-06] MEDS: NITROFURAN MACRO 100 MG CAP PO SCH (08:31)
[2023-02-06] MEDS: ISOSORBIDE MONO SR 60 MG TAB PO SCH (08:31)
[2023-02-06] MEDS: Budesonide/Glycopyr/Formoterol [Breztri Aerosphere Inhaler] 10.7 GM Hfa IH SCH ×2 (08:32→21:00)
--- NOTE | 2023-02-06 12:43 | EKG ---
Test Date: 2023-02-03 Test Time: 21:55:33 Ship Propeller Finisher: LAY MEASUREMENT RESULTS: Intervals: Rate: 89 [place]: 230 QRSD: 82 QT: 370 QTc: 450 [place]: P: 70 [place]: 230 QRS: 20 T: 67 INTERPRETIVE STATEMENTS: Sinus rhythm with 1st degree AV block Otherwise normal ECG Compared to ECG 12/01/2022 20:16:58 Sinus bradycardia no longer present T-wave abnormality no longer present Electronically Signed On 02-06-23 12:39:20 CDT by Miguel Colbert
[2023-02-06] MEDS: ACETAMINOPHEN 500 MG TAB PO PRN (13:35)
--- NOTE | 2023-02-06 19:40 | CON ---
Date of Consultation: 02/06/2023 History Of Present Illness: Ms. You is 82, came in with chest pain, slightly elevated troponin. Has a history of CAD. She is status post stent in June of last year. Has had a history of par oxysmal atrial fibrillation, on Eliquis, which has been held. She has had an ablation before. She h as had a history of CHF diastolic. She has had COPD, CVA, hypertension, dyslipidemia, came in with s ubsternal chest pressure over the left side that feels like a pressure and a stab that has been kirby nuous since admission. EKG showed no acute changes. Case was discussed with Dr. Gurrola and Dr. Colbert . There is a plan for heart catheterization this week. Past Medical History: As stated above. 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 Medications: Include Eliquis, which has been held. Plavix, Lipitor, diltiazem, Lovenox, Lasix, Imdu r, hydralazine, losartan, metoprolol, and clonidine p.r.n. Past medical history, stated above. Allergies, stated above. Review of Systems: Negative. Social History: Negative. Family History: Negative. Physical Examination: General: She is in mild distress. Vital Signs: Stable, afebrile. HEENT: Negative. Neck: Supple with no bruit. Chest: Clear. Cardiac: Revealed a regular rhythm and rate. No murmurs, gallops, or rubs. Abdomen: Benign. Extremities: Revealed no clubbing, cyanosis, or edema. Diagnostic Data: As stated earlier. Impression And Plan: Aux-[id number] myocardial infarction in a patient with history of coronary ar eliseo disease. She also has a history of atrial fibrillation, status post ablation. She is on Eliqui s, which has been held. Has a history of chronic diastolic congestive heart failure, chronic obstruc tive pulmonary disease, cerebrovascular accident, coronary artery disease, hypertension, dyslipidemia . Plan for heart catheterization this week. CIRILO/MODL Voice ID: [id number] Report ID: [id number]
[2023-02-06] MEDS: ATORVASTATIN 80 MG TAB PO SCH (21:03)
--- NOTE | 2023-02-06 23:28 | PN ---
Date of Progress Note: 02/06/2023 Subjective: Patient was seen this morning for followup. No new complaints or problems reported by t he patient. She was lying in bed. No chest pain, no palpitation, no shortness of breath. Objective: Vital Signs: Reviewed. HEENT: Unremarkable. Lungs: Clear to auscultation. Heart: Sounds normal. Abdomen: Soft. Bowel sounds normal. No guarding, rigidity, tenderness, distention. Extremities: Trace leg edema. Impression: 1.Chest pain. 2.Coronary artery disease. 3.Hypertension. 4.Hyperlipidemia. Plan: We will go ahead and continue Lovenox. Continue current statin therapy. Continue current ant ihypertensive medications. Dr. Colbert is planning to do cardiac cath tomorrow and as per his recomme ndation, his Lovenox will be discontinued after dose this evening and he will do cardiac cath tomorro w morning. Patient is aware of plan of treatment and she understands and agrees with the procedure t omorrow. YOLY/MODL Voice ID: [id number] Report ID: [id number]
[2023-02-07] MEDS: PANTOPRAZOLE 40MG TABLET PO SCH (06:23)
[2023-02-07] MEDS: LEVOTHYROXINE SOD 0.1 MG TAB PO SCH (06:23)
[2023-02-07] MEDS: SMZ./TMP. 800/160 MG TABLET PO SCH ×2 (08:20→23:49)
[2023-02-07] MEDS: NITROFURAN MACRO 100 MG CAP PO SCH (08:21)
[2023-02-07] MEDS: ISOSORBIDE MONO SR 60 MG TAB PO SCH (08:22)
[2023-02-07] MEDS: HYDRALAZINE HCL 25 MG TABLET PO SCH ×3 (08:22→21:00)
[2023-02-07] MEDS: DILTIAZEM HCL 120 MG SR CAP PO SCH (08:22)
[2023-02-07] MEDS: FOLIC ACID 1 MG TABLET PO SCH (08:22)
[2023-02-07] MEDS: DOXAZOSIN 4 MG TAB PO SCH (08:22)
[2023-02-07] MEDS: FUROSEMIDE 40 MG TABLET PO SCH ×2 (08:23→23:37)
[2023-02-07] MEDS: LOSARTAN POTASSIUM 50 MG TABLET PO SCH ×2 (08:23→21:00)
[2023-02-07] MEDS: cloNIDine HCL 0.1 MG TAB PO SCH ×2 (08:23→21:00)
[2023-02-07] MEDS: MONTELUKAST 10 MG TAB PO SCH (08:23)
[2023-02-07] MEDS: CLOPIDOGREL 75 MG TABLET PO SCH (08:23)
[2023-02-07] MEDS: METOPROLOL TAR 25 MG TAB PO SCH ×2 (08:23→21:00)
[2023-02-07] MEDS: GABAPENTIN 300 MG CAP PO SCH ×3 (08:23→23:36)
[2023-02-07] MEDS: Budesonide/Glycopyr/Formoterol [Breztri Aerosphere Inhaler] 10.7 GM Hfa IH SCH ×2 (08:24→21:00)
[2023-02-07] MEDS: POTASSIUM CL SA 10 MEQ TAB PO SCH ×2 (08:24→23:37)
[2023-02-07] MEDS ORDERED: ENOXAPARIN 100 MG/ML SYR SQ SCH ×2 (09:00→23:00)
[2023-02-07] MEDS: CLOTRIMAZOLE 10 MG TROCHE PO SCH ×4 (09:25→23:41)
[2023-02-07] MEDS: LIOTHYRONINE SOD 5 MCG TAB PO SCH (09:26)
[2023-02-07] MEDS ORDERED: BISACODYL 10 MG RECTAL SUPP PR ONE (14:26)
[2023-02-07] MEDS ORDERED: NA CHLORIDE 0.9% 500 ML ONE ×4 (15:16→18:23)
[2023-02-07] MEDS ORDERED: NA CHLORIDE 0.9% 500 ML IV ONE ×4 (15:17→18:00)
[2023-02-07] MEDS: ONDANSETRON 4 MG/2 ML VIAL IV PRN (16:27)
[2023-02-07 16:47] LABS: Absolute Lymphocytes (CBC) 1.8 K/uL (0.7-4.9); Hematocrit 30.8 % (36.0-45.0); Lymphocytes % 23.6 % (15.3-44.8); MCV 88.5 fL (80-100); RBC Red Blood Cell Count 3.48 M/uL (3.86-4.86)
[2023-02-07 16:48] LABS: Albumin 3.1 g/dL (3.4-5.0); Bilirubin Total 0.6 mg/dL (0.2-1.0); Potassium 3.6 mEq/L (3.5-5.1); Protein, Total 6.6 g/dL (6.4-8.2)
--- NOTE | 2023-02-07 16:57 | PN ---
Date of Progress Note: 02/07/2023 Mrs. You had came in with non-STEMI, history of CAD status post intervention in June 2022, h ypertension, diabetes, dyslipidemia, obesity, AFib, status post ablation. Eliquis has been held for 48 hours. No telemetry changes. Continues to have intermittent chest pain. Plan for a left heart c atheterization tomorrow by Dr. Colbert. The patient understands the risk and the benefits of the proc edure and she agrees to proceed. CIRILO/JAMIL Voice ID: [id number] Report ID: [id number]
[2023-02-07] MEDS ORDERED: NOREPINEPHRINE BITARTRATE/D5W 4 MG/250 ML BAG IV ONE (17:36)
[2023-02-07] MEDS ORDERED: NOREPINEPHRINE BITARTRATE/D5W 4 MG/250 ML BAG IV SCH (17:45)
[2023-02-07 18:31] VITALS: BMI 44.8
[2023-02-07] MEDS ORDERED: LIDOCAINE 1% 20 ML MDV ONE (19:11)
[2023-02-07] MEDS: NOREPINEPHRINE 8 MG in D5W 250 ML IV SCH ×2 (19:25→22:00)
[2023-02-07] MEDS ORDERED: NOREPINEPHRINE 4 MG in D5W 250 ML IV SCH (20:00)
[2023-02-07] MEDS ORDERED: 0.9 % SODIUM CHLORIDE 40 ML ONE (20:11)
--- NOTE | 2023-02-07 21:51 | RAD REPORT ---
EXAM DESCRIPTION: CT - Abdomen Pelvis Wo Contrast - 02/07/2023 9:45 pm CLINICAL HISTORY: Abdominal pain. abdominal pain COMPARISON: Abdomen Pelvis W/Wo Contrast dated 08/17/2022 TECHNIQUE: CT imaging of the abdomen and pelvis was performed without contrast. Solid organ, bowel a nd vascular assessment is limited due to lack of IV and oral contrast. All CT scans are performed using dose optimization technique as appropriate and may include automated exposure control or mA/KV adjustment according to patient size. FINDINGS: The lower lung peoples are clear.Small hiatal hernia. The liver, spleen, pancreas, adrenal glands are within normal limits for a limited non-contrast exami nation.Punctate bilateral nephrolithiasis without hydronephrosis. No bowel obstruction, free air, free fluid or abscess. The appendix is normal. Moderate L5-S1 spondylosis. IMPRESSION: No acute intra-abdominal or pelvic findings. A limited non-contrast examination was performed as detailed.
[2023-02-07] MEDS: ATORVASTATIN 80 MG TAB PO SCH (23:49)
--- NOTE | 2023-02-08 00:48 | PN ---
Date of Progress Note: 02/07/2023 Subjective: The patient was seen this morning for followup and at that time, she was complaining of some thrush in her mouth. No other complaints reported. No chest pain. No shortness of breath. Objective: Vital Signs: Reviewed. HEENT: Unremarkable. Lungs: Clear to auscultation. Heart: Sounds normal. Abdomen: Soft. Bowel sounds normal. No guarding, rigidity, tenderness, or distention. Extremities: No leg edema. Hospital Course: After I saw the patient, we continued her on Lovenox injection as the patient infor med me that Dr. Colbert will not be doing cardiac cath procedure today and he will do that tomorrow. So we will continue Lovenox per order today morning and evening time and discontinue after evening do se for cardiac cath to be done tomorrow. Mycelex Pablito was ordered for her oral thrush, which was n oted on oral exam this morning when I saw her. During the course of day today, this afternoon nurse called and informed me the patient was having some constipation problem and Dulcolax rectal supposito ry was ordered and then soon after that within short time, nurse contacted me and informed me that th e patient was diaphoretic. Her systolic blood pressure was less than 120 with the machine, but later on manual blood pressure was low around 80 systolic. IV fluid 500 cc bolus was ordered and after th at her blood pressure was still low. Her lowest systolic blood pressure was between 70 to 80, and it was requested for the patient to be transferred to ICU right away and total of 1 L of IV fluid bolus was given on the floor before she was moved to ICU. After she arrived to ICU, she received another L of IV fluid bolus total, so she received total 2 L of IV fluid. I went back to ICU this evening an d saw her and Levophed was ordered, which was started after 1.5 L of IV fluid bolus and an additional 500 cc bolus was ordered. CAT scan of the abdomen and pelvis was ordered to be done as soon as she is medically stable as I am concerned about possibility of retroperitoneal hemorrhage due to Lovenox. I have asked nursing staff to discontinue Lovenox and SCD was ordered for DVT prophylaxis. EKG did not show any acute changes and repeat blood work was done. Hemoglobin is 10.3. Creatinine has gone up slightly due to acute kidney injury from this low blood pressure today. We will monitor blood wo rk with another set of blood work tomorrow morning and organic chemist was notified by nursing staff. O bviously, she will not have cardiac cath procedure tomorrow. When I went back to see her this leonidas hollingsworth, she was lying in bed, not in any distress and complaining of some lower abdominal discomfort. Her lungs were clear. Heart sounds normal. Abdomen was soft. Bowel sounds normal. No guarding or rig idity. Abdomen appeared to be slightly distended with normal bowel sounds. The patient did have low er abdominal tenderness. Extremity exam with no leg edema. I did call the patient's daughter and co mmunicated with her this evening and all the details were discussed with her as well. I will call stuart kerr tomorrow morning again to give her some updates. Last blood pressure just prior to dictation in ICU was systolic blood pressure of 142. So she has responded very well to IV fluid bolus as well as vasopressor medication. We will go ahead and get the CAT scan done now since she is hemodynamical ly stable. YOLY/MODL Voice ID: [id number] Report ID: [id number]
--- NOTE | 2023-02-08 02:33 | OP ---
Date of Procedure: 02/07/2023 Surgeon: Donnie Kennedy MD Reason For Request: Patient needs urgent IV access. Brief History: Patient is an 82-year-old female, who presented with chest pain, was given Lovenox ea rlier in the abdomen. Complained of acute onset of abdominal pain, was needing to go get a CAT scan. She is scheduled for possible cath in the morning. However, she has no peripheral access, multiple PICC line nurses attempted without success, therefore I was consulted. Informed consent was obtaine d for central line placement. Patient understands the risks, benefits, and alternatives, and agrees to procedure. Description Of Procedure: On evaluation of the patient, patient has a very short neck pain and very low difficult access to either the IJ or the subclavian. As this was an emergency, I opted to procee d to the right femoral vein region. Ultrasound guidance was utilized. Right vein was identified. P atient was prepped and draped in the usual sterile fashion. Lidocaine 1% was infiltrated locally. A n 18-gauge needle was used to access the right femoral vein. Guidewire passed and then Seldinger marie hnique used. Vein dilated and triple-lumen catheter placed and secured with 3-0 silk. Catheter was flushed with heparin and packed with heparin with good blood flow. Sterile dressing was applied. Yayo aparicio tolerated the procedure in stable condition. /MODL Voice ID: [id number] Report ID: [id number]
[2023-02-08] MEDS: PANTOPRAZOLE 40MG TABLET PO SCH (06:15)
[2023-02-08] MEDS: LEVOTHYROXINE SOD 0.1 MG TAB PO SCH (06:15)
[2023-02-08 06:54] LABS: Absolute Lymphocytes (CBC) 0.5 K/uL (0.7-4.9); Hematocrit 31.4 % (36.0-45.0); Lymphocytes % 5.1 % (15.3-44.8); MCV 87.7 fL (80-100); MPV 8.1 fL (7.6-11.3); RBC Red Blood Cell Count 3.57 M/uL (3.86-4.86)
[2023-02-08 07:02] LABS: Magnesium 2.2 mg/dL (1.6-2.4); Potassium 4.5 mEq/L (3.5-5.1)
[2023-02-08 07:07] LABS: Troponin High Sensitivity 2937.2 pg/mL (<58.9)
[2023-02-08] MEDS: METRONIDAZOLE 500mg IVPB 500 MG/100 ML BAG IV SCH ×2 (07:09→17:51)
[2023-02-08] MEDS ORDERED: SODIUM CHLORIDE 0.9% 10ML INJ IV PRN (07:11)
[2023-02-08] MEDS: Budesonide/Glycopyr/Formoterol [Breztri Aerosphere Inhaler] 10.7 GM Hfa IH SCH ×2 (07:19→20:26)
[2023-02-08] MEDS: POTASSIUM CL SA 10 MEQ TAB PO SCH ×2 (07:53→21:33)
[2023-02-08] MEDS: CEFTRIAXONE 1,000 MG in NA CHLORIDE 0.9% 50 ML IVPB SCH ×2 (07:53→21:34)
[2023-02-08] MEDS: PANTOPRAZOLE 40 MG INJ IVP SCH (07:53)
[2023-02-08] MEDS: MONTELUKAST 10 MG TAB PO SCH (07:54)
[2023-02-08] MEDS: LIOTHYRONINE SOD 5 MCG TAB PO SCH (07:54)
[2023-02-08] MEDS: GABAPENTIN 300 MG CAP PO SCH ×3 (07:54→21:33)
[2023-02-08] MEDS: FOLIC ACID 1 MG TABLET PO SCH (07:54)
[2023-02-08] MEDS: CLOTRIMAZOLE 10 MG TROCHE PO SCH ×4 (07:55→21:34)
[2023-02-08] MEDS: HYDRALAZINE HCL 25 MG TABLET PO SCH ×3 (08:48→20:26)
[2023-02-08] MEDS: LOSARTAN POTASSIUM 50 MG TABLET PO SCH ×2 (08:49→20:27)
[2023-02-08] MEDS: DILTIAZEM HCL 120 MG SR CAP PO SCH (08:49)
[2023-02-08] MEDS: METOPROLOL TAR 25 MG TAB PO SCH ×2 (08:49→20:27)
[2023-02-08] MEDS: DOXAZOSIN 4 MG TAB PO SCH (08:49)
[2023-02-08] MEDS: ISOSORBIDE MONO SR 60 MG TAB PO SCH (08:49)
[2023-02-08] MEDS: cloNIDine HCL 0.1 MG TAB PO SCH ×2 (08:49→20:27)
--- NOTE | 2023-02-08 09:46 | PN ---
Ms. You has a very extensive past medical history. Dr. Gurrola and I have been following her since she came into the hospital with a non-STEMI yesterday; however, in the afternoon, she became hypotens adrienne, was hydrated, transferred to the ICU, was found to have GI bleed. Lovenox has been held. I am holding Plavix as well cancelling the catheterization today. Hopefully, she will be stable enough to have a catheterization sometime early next week. No cardiac complaints reported. Remains in sinus rhythm. The case was discussed with Dr. Gurrola. CIRILO/JAMIL Voice ID: [id number] Report ID: [id number]
[2023-02-08] MEDS: NITROFURAN MACRO 100 MG CAP PO SCH (11:36)
[2023-02-08] MEDS: FUROSEMIDE 40 MG TABLET PO SCH ×2 (11:36→21:32)
[2023-02-08] MEDS: NOREPINEPHRINE 8 MG in D5W 250 ML IV SCH (14:38)
[2023-02-08] MEDS ORDERED: WATER FOR INJ,STERILE 20 ML ONE (20:16)
[2023-02-08] MEDS: ATORVASTATIN 80 MG TAB PO SCH (21:33)
[2023-02-08] MEDS: ACETAMINOPHEN 500 MG TAB PO PRN (21:33)
--- NOTE | 2023-02-09 00:37 | PN ---
Date of Progress Note: 02/08/2023 Subjective: The patient was seen this morning for followup. No new complaints or problems reported by her this morning, except continues to have abdominal pain. She had 2 or 3 bowel movements overnig ht and there was maroon colored blood in it. No nausea. No vomiting. Overnight blood pressure has remained stable. This morning when I saw her she was not in any respiratory distress. Objective: Vital Signs: Reviewed. HEENT: Unremarkable. Lungs: Clear to auscultation. Heart: Sounds normal. Abdomen: Soft. Bowel sounds normal. No guarding, rigidity, or distention. Presence of tenderness noted in all the 4 quadrants. Extremities: No leg edema. Laboratory Data: White count 10.5, hemoglobin 10.4, and platelets 144. Sodium 136, potassium 4.5. Her troponin level today was 2937. Impression: 1.Coronary artery disease. 2.Abdominal pain. 3.Gastrointestinal bleeding. 4.Probable ischemic colitis. 5.Hypertension. 6.Hyperlipidemia. Plan: The patient received a dose of Lovenox last night after CAT scan of the abdomen and pelvis, wh ich was done last night showed no evidence of retroperitoneal hemorrhage. Wash Box Operator was notified about the elevated troponin and machine packaging technician is planning to do cardiac cath on Monday. Meanwhile, patient is having now GI bleeding problem likely due to ischemic colitis as per my discussion with Dr. Romero, laser machine operator who was consulted and he has evaluated the patient. At this time, h e is not recommending any endoscopy workup. We will continue Protonix per order. Lovenox was discon tinued and I have asked machine packaging technician to see if we can hold Plavix in view of this GI bleeding problem or not. Dr. Romero has informed me that we can resume antiplatelet and anticoagulation therapy 24 to 48 hours after the bleeding stops. During the course of day today, she has required very low-dos e vasopressor medication to support her blood pressure. Starting tomorrow, Hospitalist Team will natanael e over this patient's care and I have discussed details with the Hospitalist Team. YOLY/MODL Voice ID: [id number] Report ID: [id number]
[2023-02-09] MEDS: METRONIDAZOLE 500mg IVPB 500 MG/100 ML BAG IV SCH ×3 (01:13→17:25)
[2023-02-09] MEDS: NOREPINEPHRINE 8 MG in D5W 250 ML IV SCH (03:58)
[2023-02-09] MEDS: LEVOTHYROXINE SOD 0.1 MG TAB PO SCH (05:47)
[2023-02-09 06:28] LABS: Hematocrit 31.9 % (36.0-45.0); Lymphocytes % 11.4 % (15.3-44.8); MCV 88.5 fL (80-100); MPV 8.4 fL (7.6-11.3)
[2023-02-09 06:47] LABS: Potassium 3.8 mEq/L (3.5-5.1)
[2023-02-09] MEDS: LIOTHYRONINE SOD 5 MCG TAB PO SCH (07:42)
[2023-02-09] MEDS: ISOSORBIDE MONO SR 60 MG TAB PO SCH (07:42)
[2023-02-09] MEDS: GABAPENTIN 300 MG CAP PO SCH ×3 (07:43→20:46)
[2023-02-09] MEDS: MONTELUKAST 10 MG TAB PO SCH (07:43)
[2023-02-09] MEDS: POTASSIUM CL SA 10 MEQ TAB PO SCH ×2 (07:43→20:45)
[2023-02-09] MEDS: FUROSEMIDE 40 MG TABLET PO SCH ×2 (07:43→20:45)
[2023-02-09] MEDS: FOLIC ACID 1 MG TABLET PO SCH (07:44)
[2023-02-09] MEDS: CEFTRIAXONE 1,000 MG in NA CHLORIDE 0.9% 50 ML IVPB SCH ×2 (07:44→20:47)
[2023-02-09] MEDS: CLOTRIMAZOLE 10 MG TROCHE PO SCH ×4 (07:45→20:46)
[2023-02-09] MEDS: PANTOPRAZOLE 40 MG INJ IVP SCH (07:45)
[2023-02-09] MEDS: NITROFURAN MACRO 100 MG CAP PO SCH (07:46)
[2023-02-09] MEDS: METOPROLOL TAR 25 MG TAB PO SCH ×3 (07:47→20:47)
[2023-02-09] MEDS: LOSARTAN POTASSIUM 50 MG TABLET PO SCH ×2 (07:47→20:47)
[2023-02-09] MEDS: cloNIDine HCL 0.1 MG TAB PO SCH ×2 (07:48→20:47)
[2023-02-09] MEDS: HYDRALAZINE HCL 25 MG TABLET PO SCH ×3 (07:48→20:46)
[2023-02-09] MEDS: DILTIAZEM HCL 120 MG SR CAP PO SCH (07:48)
[2023-02-09] MEDS: DOXAZOSIN 4 MG TAB PO SCH (07:48)
[2023-02-09] MEDS: Budesonide/Glycopyr/Formoterol [Breztri Aerosphere Inhaler] 10.7 GM Hfa IH SCH (09:00)
--- NOTE | 2023-02-09 11:55 | PN ---
Date of Progress Note: 02/09/2023 Ms. You had came in with a non-STEMI. Anticoagulation was held with the plan to do a heart moshe terization on her, but she developed GI bleed. She is hemodynamically stable now, but remains on Lev ophed. She is still on antibiotics. She is in ICU still. Hemoglobin is 10.4. Last creatinine is 1 .48. Last troponin is 2937. We had held Plavix, aspirin, and Lovenox. We added metoprolol and losa rtan. We will continue Levophed. Hold the diltiazem, hold the hydralazine. Continue antibiotics. We will see how her kidney function, hemoglobin overall status does over the weekend, maybe do a hear t catheterization sometime next week. We will plan to try to wean off the Levophed as soon as will Pride/JAMIL Voice ID: [id number] Report ID: [id number]
--- NOTE | 2023-02-09 12:19 | EKG ---
Test Date: 2023-02-07 Test Time: 15:30:33 Restaurant Manager: SUKHWINDER MEASUREMENT RESULTS: Intervals: Rate: 72 CA: 190 QRSD: 82 QT: 426 QTc: 466 [place]: P: 72 CA: 190 QRS: 50 T: 55 INTERPRETIVE STATEMENTS: Sinus rhythm with marked sinus arrhythmia Low voltage QRS Nonspecific ST abnormality Abnormal ECG Compared to ECG 02/03/2023 21:55:33 Low QRS voltage now present ST (T wave) deviation now present First degree AV block no longer present Electronically Signed On 02-09-23 12:18:54 CDT by Evan Dunn
--- NOTE | 2023-02-09 16:44 | P.PN ---
Subjective Date of Service: 02/09/23 Patient still have some abdominal pain and distention. Patient does not have blood in her stool. Gently weaning off of Levophed. Gentle hydration. Review of Systems 10-point ROS is otherwise unremarkable Physical Examination - Vital Signs Temperature: 98.1 F Blood Pressure: 122/50 Pulse: 104 Respirations: 17 Pulse Ox (%): 98 - Physical Exam General: Alert, In no apparent distress, Oriented x3 Respiratory: Clear to auscultation bilaterally, Normal air movement Cardiovascular: Regular rate/rhythm, Normal S1 S2, No murmurs Gastrointestinal: Normal bowel sounds, Soft and benign, Non-distended, No tenderness Musculoskeletal: No clubbing, No swelling, No tenderness Neurological: Sensation intact, Cranial nerves 3-12 intact - Studies Medications List Reviewed: Yes Assessment & Plan - Problems (Diagnosis) (1) GI bleed Current Visit: Yes Status: Acute (2) ACS (acute coronary syndrome) Current Visit: Yes Status: Acute (3) Ischemic colitis Current Visit: Yes Status: Acute (4) MARCO ANTONIO (acute kidney injury) Current Visit: Yes Status: Acute (5) Atrial fibrillation Current Visit: No Status: Acute (6) Generalized weakness Onset Date: 06/20/17 Current Visit: No Status: Acute (7) Hyponatremia Onset Date: 06/20/17 Current Visit: No Status: Acute (8) UTI due to Klebsiella species Current Visit: Yes Status: Acute - Plan Plan: 1. Continue monitoring H&H 2. IV hydration 3. IV antibiotics 4. Continue with cardiac meds and cardiac cath on Monday 5. Strict blood pressure and blood sugar control 6. Monitor hemodynamics 7. Monitor renal function 8. PPI 9. GI DVT prophylaxis Discharge Plan: Home Plan to discharge in: Greater than 2 days - Advance Directives Does patient have a Living Will: Yes Does patient have a Durable POA for Healthcare: Yes - Code Status/Comfort Care Code Status Assessed: Yes Code Status: Full Code Critical Care: No Time Spent Managing PTS Care (In Minutes): 35
[2023-02-09] MEDS ORDERED: NOREPINEPHRINE BITARTRATE/D5W 4 MG/250 ML BAG IV SCH (18:15)
[2023-02-09] MEDS: GLYCOPYR IH SCH ×2 (20:46→21:00)
[2023-02-09] MEDS: ATORVASTATIN 80 MG TAB PO SCH (20:46)
[2023-02-09] MEDS: FORMOTEROL IH SCH ×2 (20:46→21:00)
[2023-02-09] MEDS: BUDESONIDE IH SCH ×2 (20:46→21:00)
[2023-02-09] MEDS: MAGNES/ALUMIN/SIMET 30ML UCUP PO PRN (20:48)
[2023-02-10] MEDS: METRONIDAZOLE 500mg IVPB 500 MG/100 ML BAG IV SCH ×3 (01:10→17:12)
[2023-02-10 05:09] LABS: Absolute Lymphocytes (CBC) 1.2 K/uL (0.7-4.9); Lymphocytes % 18.7 % (15.3-44.8); MCV 89.1 fL (80-100); MPV 7.8 fL (7.6-11.3); RBC Red Blood Cell Count 3.37 M/uL (3.86-4.86)
[2023-02-10 05:58] LABS: Albumin 2.8 g/dL (3.4-5.0); Bilirubin Total 0.4 mg/dL (0.2-1.0); Magnesium 2.3 mg/dL (1.6-2.4); Protein, Total 6.3 g/dL (6.4-8.2); Thyroid Stimulating Hormone 1.14 uIU/mL (0.358-3.740)
[2023-02-10] MEDS: LEVOTHYROXINE SOD 0.1 MG TAB PO SCH (06:12)
--- NOTE | 2023-02-10 07:47 | RAD REPORT ---
EXAM DESCRIPTION: [place] Single View02/10/2023 5:55 am CLINICAL HISTORY: Chest pain COMPARISON: February 03, 2023 FINDINGS: The lungs appear clear of acute infiltrate. The heart is mildly to moderately enlarged IMPRESSION: No acute abnormalities displayed
[2023-02-10] MEDS: HYDRALAZINE HCL 25 MG TABLET PO SCH ×3 (08:59→20:54)
[2023-02-10] MEDS: DILTIAZEM HCL 120 MG SR CAP PO SCH (08:59)
[2023-02-10] MEDS: GLYCOPYR IH SCH (08:59)
[2023-02-10] MEDS: FORMOTEROL IH SCH (08:59)
[2023-02-10] MEDS: BUDESONIDE IH SCH (08:59)
[2023-02-10] MEDS: POTASSIUM CL SA 10 MEQ TAB PO SCH ×2 (09:00→20:52)
[2023-02-10] MEDS: DOXAZOSIN 4 MG TAB PO SCH (09:00)
[2023-02-10] MEDS: FUROSEMIDE 40 MG TABLET PO SCH ×2 (09:00→20:52)
[2023-02-10] MEDS: MONTELUKAST 10 MG TAB PO SCH (09:00)
[2023-02-10] MEDS: cloNIDine HCL 0.1 MG TAB PO SCH ×2 (09:00→20:52)
[2023-02-10] MEDS: LOSARTAN POTASSIUM 50 MG TABLET PO SCH ×2 (09:00→20:54)
[2023-02-10] MEDS: GABAPENTIN 300 MG CAP PO SCH ×3 (09:00→20:52)
[2023-02-10] MEDS: NITROFURAN MACRO 100 MG CAP PO SCH (09:01)
[2023-02-10] MEDS: FOLIC ACID 1 MG TABLET PO SCH (09:01)
[2023-02-10] MEDS: ISOSORBIDE MONO SR 60 MG TAB PO SCH (09:01)
[2023-02-10] MEDS: CLOTRIMAZOLE 10 MG TROCHE PO SCH ×4 (09:01→20:55)
[2023-02-10] MEDS: CEFTRIAXONE 1,000 MG in NA CHLORIDE 0.9% 50 ML IVPB SCH ×2 (09:02→20:51)
[2023-02-10] MEDS: PANTOPRAZOLE 40 MG INJ IVP SCH (09:02)
[2023-02-10] MEDS: LIOTHYRONINE SOD 5 MCG TAB PO SCH (09:02)
--- NOTE | 2023-02-10 10:04 | P.PN ---
Subjective Date of Service: 02/10/23 Chief Complaint: Non-STEMI constipation Subjective: Improving (Improving doing better abdominal distention is decreased she has hemorrhoids with some bleeding no complaints denies any shortness of breath or chest pain) Review of Systems 10-point ROS is otherwise unremarkable Physical Examination - Vital Signs Temperature: 97.8 F Blood Pressure: 165/55 Pulse: 100 Respirations: 19 Pulse Ox (%): 99 - Physical Exam General: Alert, In no apparent distress, Oriented x3 Neck: Supple Respiratory: Clear to auscultation bilaterally Cardiovascular: No edema Gastrointestinal: Normal bowel sounds, Soft and benign, Non-distended - Studies Medications List Reviewed: Yes Assessment And Plan - Current Problems (Diagnosis) (1) Non-STEMI (non-ST elevated myocardial infarction) Current Visit: Yes Status: Acute Plan: Patient is 82 years of age admitted with non-STEMI significantly elevated troponins nonspecific changes on EKG history of coronary artery disease also has some bleeding from her hemorrhoids. With constipation been a mild decrease in her hemoglobin renal function is also improving White count is normal vital signs satisfactory oxygenation satisfactory (2) GI bleed Current Visit: Yes Status: Acute Plan: Patient admitted with GI bleeding possibility of ischemic colitis CT scan is negative she does have hemorrhoids patient was weaned off the vasopressors hemodynamically stable transfer to the floor Qualifiers: GI bleed type/associated pathology: unspecified gastrointestinal hemorrhage type Qualified Code(s): K92.2 - Gastrointestinal hemorrhage, unspecified
[2023-02-10] MEDS: METOPROLOL TAR 25 MG TAB PO SCH ×2 (10:14→20:52)
[2023-02-10] MEDS: POTASS/SODIUM PHOSPHATE 1 PKT POWD.PACK PO SCH ×3 (12:08→14:00)
[2023-02-10] MEDS: MAGNES/ALUMIN/SIMET 30ML UCUP PO PRN ×2 (12:08→20:51)
[2023-02-10] MEDS: ACETAMINOPHEN 500 MG TAB PO PRN (12:17)
[2023-02-10] MEDS: ATORVASTATIN 80 MG TAB PO SCH (20:54)
[2023-02-11] MEDS: METRONIDAZOLE 500mg IVPB 500 MG/100 ML BAG IV SCH (01:03)
[2023-02-11] MEDS: LEVOTHYROXINE SOD 0.1 MG TAB PO SCH (05:48)
--- NOTE | 2023-02-11 08:52 | P.PN ---
Subjective Date of Service: 02/11/23 Chief Complaint: Non-STEMI constipation Subjective: Improving (Doing much better still having occasional cramps from the constipation no chest pain) Review of Systems 10-point ROS is otherwise unremarkable Physical Examination - Vital Signs Temperature: 97 F Blood Pressure: 121/41 Pulse: 64 Respirations: 16 Pulse Ox (%): 97 - Physical Exam General: Alert, In no apparent distress, Oriented x3 HEENT: Atraumatic Neck: Supple Respiratory: Normal air movement Cardiovascular: No edema, Regular rate/rhythm Gastrointestinal: Normal bowel sounds, Soft and benign, Non-distended - Studies Medications List Reviewed: Yes Assessment And Plan - Current Problems (Diagnosis) (1) Non-STEMI (non-ST elevated myocardial infarction) Current Visit: Yes Status: Acute Plan: Patient is doing much better eyes any chest pain shortness of breath is also improved opponents have declined (2) GI bleed Current Visit: Yes Status: Acute Plan: No further GI bleeding hemodynamically stable renal function improved hemoglobin stable constipation is has also improved Qualifiers: GI bleed type/associated pathology: unspecified gastrointestinal hemorrhage type Qualified Code(s): K92.2 - Gastrointestinal hemorrhage, unspecified
[2023-02-11] MEDS ORDERED: CIPROFLOXACIN HCL 250 MG TAB PO SCH (09:00)
[2023-02-11] MEDS: DOXAZOSIN 4 MG TAB PO SCH ×2 (09:00)
[2023-02-11] MEDS ORDERED: DOXAZOSIN 2 MG TAB ONE (09:08)
[2023-02-11] MEDS: metroNIDAZOLE 500 MG TABLET PO SCH ×2 (09:24→16:35)
[2023-02-11] MEDS: NITROFURAN MACRO 100 MG CAP PO SCH (09:24)
[2023-02-11] MEDS: POTASSIUM CL SA 10 MEQ TAB PO SCH ×2 (09:24→20:40)
[2023-02-11] MEDS: GABAPENTIN 300 MG CAP PO SCH ×3 (09:25→20:40)
[2023-02-11] MEDS: cloNIDine HCL 0.1 MG TAB PO SCH ×2 (09:25→20:29)
[2023-02-11] MEDS: FUROSEMIDE 40 MG TABLET PO SCH ×2 (09:25→20:41)
[2023-02-11] MEDS: CIPROFLOXACIN HCL 250 MG TAB PO SCH ×2 (09:25→20:41)
[2023-02-11] MEDS: HYDRALAZINE HCL 25 MG TABLET PO SCH ×3 (09:26→20:29)
[2023-02-11] MEDS: ISOSORBIDE MONO SR 60 MG TAB PO SCH (09:26)
[2023-02-11] MEDS: MONTELUKAST 10 MG TAB PO SCH (09:26)
[2023-02-11] MEDS: LIOTHYRONINE SOD 5 MCG TAB PO SCH (09:26)
[2023-02-11] MEDS: METOPROLOL TAR 25 MG TAB PO SCH ×2 (09:27→20:41)
[2023-02-11] MEDS: DILTIAZEM HCL 120 MG SR CAP PO SCH (09:27)
[2023-02-11] MEDS: CLOTRIMAZOLE 10 MG TROCHE PO SCH ×4 (09:27→20:41)
[2023-02-11] MEDS: FOLIC ACID 1 MG TABLET PO SCH (09:30)
[2023-02-11] MEDS: LOSARTAN POTASSIUM 50 MG TABLET PO SCH ×2 (09:30→20:29)
[2023-02-11] MEDS: PANTOPRAZOLE 40 MG INJ IVP SCH (09:30)
--- NOTE | 2023-02-11 18:00 | PN ---
Date of Progress Note: 02/10/2023 Ms. You remained in the ICU, but she is doing much better. Her O2 saturation on CPAP and BiPAP i s 98%. She is off the Levophed. Remains hydrated. She still is on antibiotics. She is followed by Dr. Galvan and Dr. Meyer right now. She has not had any further bleeding. She is not anemic like s he was before. Still no cardiac symptoms. Troponins have gone up dramatically. She is still off Pl avix, off Lovenox, off aspirin. We will continue present regimen. Transfer her to telemetry. We wi ll continue to follow. CIRILO/JAMIL Voice ID: [id number] Report ID: [id number]
--- NOTE | 2023-02-11 18:10 | PN ---
Date of Progress Note: 02/11/2023 Ms. You now is on the floor. She is in room 232. Will be followed for non-STEMI, GI bleeding. She is off pressors. She is off blood thinners. Hemodynamically stable. No cardiac complaints. Tr oponin has risen significantly. Hemoglobin is still stable. Creatinine is stable. I will discuss t he case further with Dr. Galvan, Dr. Gurrola, and Dr. Colbert regarding the possibility of heart cathete rization early next week. NB/MODL Voice ID: [id number] Report ID: [id number]
[2023-02-11] MEDS: ATORVASTATIN 80 MG TAB PO SCH (20:41)
[2023-02-12] MEDS: metroNIDAZOLE 500 MG TABLET PO SCH ×3 (00:14→16:16)
[2023-02-12] MEDS: LEVOTHYROXINE SOD 0.1 MG TAB PO SCH (06:07)
[2023-02-12] MEDS: PANTOPRAZOLE 40 MG INJ IVP SCH (08:11)
[2023-02-12] MEDS: MONTELUKAST 10 MG TAB PO SCH (08:12)
[2023-02-12] MEDS: LIOTHYRONINE SOD 5 MCG TAB PO SCH (08:12)
[2023-02-12] MEDS: ISOSORBIDE MONO SR 60 MG TAB PO SCH (08:12)
[2023-02-12] MEDS: FOLIC ACID 1 MG TABLET PO SCH (08:12)
[2023-02-12] MEDS: CLOTRIMAZOLE 10 MG TROCHE PO SCH ×4 (08:12→21:00)
[2023-02-12] MEDS: CIPROFLOXACIN HCL 250 MG TAB PO SCH ×2 (08:12→20:58)
[2023-02-12] MEDS: HYDRALAZINE HCL 25 MG TABLET PO SCH ×3 (08:12→20:57)
[2023-02-12] MEDS: DILTIAZEM HCL 120 MG SR CAP PO SCH (08:13)
[2023-02-12] MEDS: FUROSEMIDE 40 MG TABLET PO SCH ×2 (08:13→20:59)
[2023-02-12] MEDS: GABAPENTIN 300 MG CAP PO SCH ×3 (08:13→20:58)
[2023-02-12] MEDS: METOPROLOL TAR 25 MG TAB PO SCH ×2 (08:13→20:59)
[2023-02-12] MEDS ORDERED: DOXAZOSIN 2 MG TAB ONE (08:13)
[2023-02-12] MEDS: POTASSIUM CL SA 10 MEQ TAB PO SCH ×2 (08:13→20:59)
[2023-02-12] MEDS: cloNIDine HCL 0.1 MG TAB PO SCH ×2 (08:13→20:57)
[2023-02-12] MEDS: LOSARTAN POTASSIUM 50 MG TABLET PO SCH ×2 (08:13→20:58)
[2023-02-12] MEDS: DOXAZOSIN 4 MG TAB PO SCH (08:14)
[2023-02-12] MEDS: NITROFURAN MACRO 100 MG CAP PO SCH (08:17)
[2023-02-12] MEDS ORDERED: DOXAZOSIN 4 MG TAB PO SCH (09:00)
--- NOTE | 2023-02-12 11:18 | P.PN ---
Subjective Date of Service: 02/12/23 Chief Complaint: Non-STEMI constipation urinary frequency Subjective: Improving (Patient is improving denies any shortness of breath or chest pain planing of yeast infection) Review of Systems 10-point ROS is otherwise unremarkable Physical Examination - Vital Signs Temperature: 97.8 F Blood Pressure: 214/105 Pulse: 79 Respirations: 21 Pulse Ox (%): 98 - Physical Exam General: Alert, In no apparent distress, Oriented x3 Respiratory: Clear to auscultation bilaterally Cardiovascular: No edema, Regular rate/rhythm, Normal S1 S2 - Studies Medications List Reviewed: Yes Assessment And Plan - Current Problems (Diagnosis) (1) Non-STEMI (non-ST elevated myocardial infarction) Current Visit: Yes Status: Acute Plan: Patient admitted with a non-STEMI we will discuss with cardiology regarding cardiac cath tomorrow (2) GI bleed Current Visit: Yes Status: Acute Plan: No further bleeding hemoglobin is slightly low at 9.9 Qualifiers: GI bleed type/associated pathology: unspecified gastrointestinal hemorrhage type Qualified Code(s): K92.2 - Gastrointestinal hemorrhage, unspecified (3) Urinary frequency Current Visit: Yes Status: Acute - Plan Patient complains of urinary frequency states that is a yeast infection have added Diflucan urinalysis with reflex culture we will also prescribe Diflucan
[2023-02-12] MEDS: FLUCONAZOLE 100 MG TAB PO SCH (11:28)
[2023-02-12] MEDS: ATORVASTATIN 80 MG TAB PO SCH (21:06)
[2023-02-13] MEDS: metroNIDAZOLE 500 MG TABLET PO SCH ×2 (00:55→08:48)
[2023-02-13] MEDS: LEVOTHYROXINE SOD 0.1 MG TAB PO SCH (05:32)
[2023-02-13 06:54] LABS: Absolute Lymphocytes (CBC) 1.1 K/uL (0.7-4.9); Lymphocytes % 18.2 % (15.3-44.8); MCV 88.9 fL (80-100); MPV 7.7 fL (7.6-11.3); RBC Red Blood Cell Count 3.38 M/uL (3.86-4.86)
[2023-02-13 07:07] LABS: Magnesium 2.2 mg/dL (1.6-2.4); Potassium 3.7 mEq/L (3.5-5.1)
[2023-02-13] MEDS ORDERED: DOXAZOSIN 2 MG TAB ONE (07:48)
[2023-02-13 08:27] VITALS: TEMP 97
[2023-02-13] MEDS: PANTOPRAZOLE 40 MG INJ IVP SCH (08:43)
[2023-02-13] MEDS: NITROFURAN MACRO 100 MG CAP PO SCH (08:43)
[2023-02-13] MEDS: CLOTRIMAZOLE 10 MG TROCHE PO SCH (08:43)
[2023-02-13] MEDS: FOLIC ACID 1 MG TABLET PO SCH (08:44)
[2023-02-13] MEDS: FLUCONAZOLE 100 MG TAB PO SCH (08:44)
[2023-02-13] MEDS: POTASSIUM CL SA 10 MEQ TAB PO SCH (08:44)
[2023-02-13] MEDS: GABAPENTIN 300 MG CAP PO SCH (08:44)
[2023-02-13] MEDS: FUROSEMIDE 40 MG TABLET PO SCH (08:44)
[2023-02-13] MEDS: LIOTHYRONINE SOD 5 MCG TAB PO SCH (08:44)
[2023-02-13] MEDS: MONTELUKAST 10 MG TAB PO SCH (08:45)
[2023-02-13] MEDS: LOSARTAN POTASSIUM 50 MG TABLET PO SCH (08:45)
[2023-02-13] MEDS: DILTIAZEM HCL 120 MG SR CAP PO SCH (08:47)
[2023-02-13] MEDS: METOPROLOL TAR 25 MG TAB PO SCH (08:47)
[2023-02-13] MEDS: ISOSORBIDE MONO SR 60 MG TAB PO SCH (08:48)
[2023-02-13] MEDS: cloNIDine HCL 0.1 MG TAB PO SCH (08:48)
[2023-02-13] MEDS: HYDRALAZINE HCL 25 MG TABLET PO SCH (08:49)
[2023-02-13] MEDS: DOXAZOSIN 4 MG TAB PO SCH (08:52)
[2023-02-13] MEDS ORDERED: SMZ./TMP. 800/160 MG TABLET PO SCH (09:00)
[2023-02-13 12:15] VITALS: BP 138/64
[2023-02-13 12:20] VITALS: O2SAT 94
--- NOTE | 2023-02-13 20:04 | PN ---
Date of Progress Note: 02/12/2023 Ms. You finally has recovered from her low blood pressure, GI bleed, and hypotension. She has be en off Levophed. Continue to be on antibiotics. No more GI bleed. Last hemoglobin 9.9, asymptomati c. Last O2 saturation I requested is okay. Last troponin was 755. Blood pressure 214/105. Her ant ihypertensive medicines were restarted. Ms. You feels great and actually really wants to go home . The case was discussed with Dr. Gurrola and Dr. Colbert on 02/13/2023. I think the best approach for now considering her recent GI bleed and hypotension and the fact that she is not taking any blood thi nners is that we will probably have her do a Lexiscan rather than a coronary intervention and see angelito muro that shows before making further decision. We could probably safely resume her Plavix. CIRILO/JAMIL Voice ID: [id number] Report ID: [id number]
--- NOTE | 2023-02-14 07:01 | DS ---
Date of Discharge: 02/13/2023 Disposition: Discharged to go home. Physical Examination: HEENT: Unremarkable. Lungs: Clear to auscultation. Heart: Sounds normal. Abdomen: Soft. Bowel sounds normal. No guarding, rigidity, tenderness, distention. Extremities: No leg edema. Laboratory Data: Today; white count 6, hemoglobin 9.9, platelets 158. Sodium 136, potassium 3.7, ch loride 106, bicarb 28, BUN 19, creatinine 0.96, glucose 112. Urine culture grew Klebsiella. Discharge Medications And Instructions: 1.Continue all prior home medication except stop Eliquis and the patient to restart her clopidogrel 75 mg daily. 2.Take Bactrim DS 1 tablet by mouth 2 times a day and prescription was sent to her pharmacy from my office today. 3.Follow up at my office next week. 4.Follow with Dr. Dunn this week and Dr. Dunn's office will contact her and schedule outpatien t Lexiscan stress test and then they will make decision regarding cardiac cath. Hospital Course: This is an 82-year-old female patient, who came into emergency room with complaints of chest pain. Please see dictated H and P for more information. After the patient was evaluated i n the emergency room, she was admitted to the hospital. Her cardiac enzymes were slightly elevated a nd Cardiology consultation was requested from Dr. Colbert, and the patient was taking Eliquis at home and her Eliquis was discontinued and was started on Lovenox with the intention to do cardiac cath las t week. Day before, she was planning to get cardiac cath, her condition changed and all of a sudden she became extremely hypotensive with her systolic blood pressure dropping into range of 70 to 80. T he patient required altogether 2000 cc of IV fluid bolus and also required vasopressor medication and transferred to ICU. Her condition stabilized with all this intervention in ICU, but subsequently we also did CT scan of the abdomen to rule out any possibility of retroperitoneal hemorrhage because izzy lamas was getting Lovenox. There was no significant drop in her hemoglobin at that time and CAT scan of the abdomen and pelvis without contrast was negative for any acute changes, no evidence of retroperit giles hemorrhage. After that, she started to have some lower abdominal pain and she was tender in he r abdomen and she started to have bright red blood to maroon colored blood in her stool. GI consulta tion was requested from Dr. Romero, who thought she probably had ischemic colitis because of drop i n her blood pressure and he did not suggest any endoscopic procedure to be done at this time. The gene aparicio had her last colonoscopy about 3 to [address] Al[address] Romero has suggested outp atient workup if necessary and to restart her anti-platelet and anticoagulation medications in 24 to 48 hours after GI bleeding stops. At least 2 to 3 days ago, her bleeding problem has stopped and she has not had any evidence of bleeding. Her hemoglobin has remained stable now. I did communicate wi gum puller, Dr. Dunn and he informed me that he has communicated with Dr. Colbert, and they palomino ve decided to do Lexiscan stress test as outpatient and then consider cardiac cath if necessary, so f rom Cardiology point of view, medically she is stable for discharge. Final Diagnoses: 1.Non-ST segment elevation myocardial infarction. 2.Ischemic colitis. 3.Acute blood loss anemia. 4.Coronary artery disease. 5.Hypertension. 6.Hyperlipidemia. 7.Chronic anti-platelet therapy. 8.Chronic anticoagulation therapy. YOYL/MODL Voice ID: [id number] Report ID: [id number]
== END 2023-02-13 13:40 | disposition home or self-care (01) | DRG 281 ==
LOC: ER 21:54 → ERHOLD 23:14 → 4TH 02-04 11:56 → OBSVTOIN 02-05 08:07 → 3RD-ICU 02-07 17:13 → 2ND 02-11 05:57
PROVIDERS: ADMIT Hospitalist; ATTEND Internal Medicine
PROC: 06HY33Z Insertion of Infusion Device into Lower Vein, Percutaneous Approach (ICD-10-PCS; principal; 2023-02-07)
DX: I21.4 Non-ST elevation (NSTEMI) myocardial infarction (principal); B37.0 Candidal stomatitis; R57.9 Shock, unspecified; I50.32 Chronic diastolic (congestive) heart failure; Z68.41 Body mass index [BMI] 40.0-44.9, adult; K55.9 Vascular disorder of intestine, unspecified; N17.9 Acute kidney failure, unspecified; E87.1 Hypo-osmolality and hyponatremia; N39.0 Urinary tract infection, site not specified; D62 Acute posthemorrhagic anemia; J44.9 Chronic obstructive pulmonary disease, unspecified; I11.0 Hypertensive heart disease with heart failure; E03.9 Hypothyroidism, unspecified; E78.00 Pure hypercholesterolemia, unspecified; K21.9 Gastro-esophageal reflux disease without esophagitis; I48.0 Paroxysmal atrial fibrillation; D64.9 Anemia, unspecified; J45.40 Moderate persistent asthma, uncomplicated; K59.00 Constipation, unspecified; E66.9 Obesity, unspecified; I25.10 Atherosclerotic heart disease of native coronary artery without angina pectoris; I25.2 Old myocardial infarction; B96.1 Klebsiella pneumoniae [K. pneumoniae] as the cause of diseases classified elsewhere; R73.01 Impaired fasting glucose; Z88.8 Allergy status to other drugs, medicaments and biological substances; Z95.5 Presence of coronary angioplasty implant and graft; Z79.01 Long term (current) use of anticoagulants; Z86.73 Personal history of transient ischemic attack (TIA), and cerebral infarction without residual deficits; Z90.49 Acquired absence of other specified parts of digestive tract; Z87.891 Personal history of nicotine dependence; Z90.710 Acquired absence of both cervix and uterus
CPT/HCPCS: 36415; 71045; 74176; 80048; 80053; 80076; 81001; 82533; 82607; 82947; 83540; 83605; 83735; 83880; 84100; 84145; 84439; 84443; 84484; 85025; 85610; 85730; 87077; 87086; 87088; 87186; 93005; 99285; C9113; G0378; J0696; J1644; J1650; J2001; J2405; J2930; J7040; J7060

== ENCOUNTER 2023-03-08 06:30 | Day surgery (SDC) | payer OTHER, MEDICARE ==
[2023-03-07 08:56] LABS: Absolute Lymphocytes (CBC) 1.1 K/uL (0.7-4.9); Hematocrit 34.6 % (36.0-45.0); Lymphocytes % 21.6 % (15.3-44.8); MCV 89.4 fL (80-100); MPV 7.4 fL (7.6-11.3); RBC Red Blood Cell Count 3.87 M/uL (3.86-4.86)
[2023-03-07 10:04] LABS: Potassium 4.3 mEq/L (3.5-5.1)
--- NOTE | 2023-03-07 13:48 | EKG ---
Test Date: 2023-03-07 Test Time: 08:35:59 Fruit Farmworker: KILEY MEASUREMENT RESULTS: Intervals: Rate: 79 MN: 220 QRSD: 84 QT: 360 QTc: 412 [place]: P: 67 MN: 220 QRS: 21 T: 91 INTERPRETIVE STATEMENTS: Sinus rhythm with 1st degree AV block Low voltage QRS Abnormal QRS-T angle, consider primary T wave abnormality Abnormal ECG Compared to ECG 02/07/2023 15:30:33 First degree AV block now present T-wave abnormality now present Sinus arrhythmia no longer present ST (T wave) deviation no longer present Electronically Signed On 03-07-23 13:48:03 CDT by Miguel Colbert
[2023-03-08] MEDS ORDERED: LIDOCAINE 1% 20 ML MDV ONE (06:51)
[2023-03-08] MEDS ORDERED: HEPA 1000U/500MLS 2,000 UNIT/1,000 ML BAG IV ONE (06:51)
[2023-03-08] MEDS ORDERED: NA CHLORIDE 0.9% 500 ML ONE (06:59)
[2023-03-08 07:10] VITALS: TEMP 97.6
[2023-03-08] MEDS ORDERED: ASPIRIN 325 MG TAB ONE (07:34)
[2023-03-08] MEDS ORDERED: CLOPIDOGREL 75 MG TABLET ONE (07:34)
[2023-03-08] MEDS ORDERED: VERAPAMIL HCL 10 MG/4 ML VIAL IV ONE (07:34)
[2023-03-08] MEDS ORDERED: FENTANYL CITR 100 MCG/2 ML ONE (07:34)
[2023-03-08] MEDS ORDERED: HEPARIN 5000 UNIT/ML 1 ML VIAL ONE (07:34)
[2023-03-08] MEDS ORDERED: MIDAZOLAM HCL 2 MG/2 ML INJ ONE (07:34)
[2023-03-08] MEDS ORDERED: HEPARIN 10,000 UNIT/10 ML VIAL IV ONE (07:35)
[2023-03-08] MEDS ORDERED: ATROPINE SULF 1 MG/10 ML SYR IV ONE (07:35)
[2023-03-08] MEDS ORDERED: NITROGLYCERIN 100 MCG/ML SYR (for cath lab use only) IV ONE (07:35)
[2023-03-08] MEDS ORDERED: TICAGRELOR 90 MG TABLET PO ONE (07:35)
[2023-03-08] MEDS ORDERED: REGADENOSON 0.4 MG/5 ML SYR IV ONE ×2 (08:08→08:27)
[2023-03-08 11:38] VITALS: BP 139/52; O2SAT 99
--- NOTE | 2023-03-08 16:10 | OP ---
Date of Procedure: 03/08/2023 Surgeon: BASIA FARFAN Procedures Performed: 1.Selective coronary angiogram. 2.Left heart catheterization. 3.FFR of proximal LAD which was significant 0.79. 4.PCI of proximal LAD. I used 4.0 x 12 mm Synergy drug-eluting stent. Indication: Recent non-STEMI. Access: Right femoral artery 6-Montserratian closed with 6-[place]err[place]ian Angio-Seal. Anesthesia: Total sedation time was 50 minutes. Used fentanyl and Versed. Description Of Procedure: After risks, benefits, alternatives were explained, the patient signed inf ormed consent and then the patient was brought into the cardiac catheterization laboratory, prepped a nd draped in the usual sterile fashion. Then, I accessed the right femoral artery using micropunctur e kit, fluoroscopy, and ultrasound guidance and placed a 6-[place]err[place]ian Maiden sheath and took 6-[place] J L4 catheter over the wire into the aortic root and engaged left main, took standard views and then ex changed for 6-[place] JR4 catheter, engaged the RCA, took standard views and then the catheter was pus hed over the wire into the LV, measured the LVEDP, and pullback did not record any gradient. Then, w e gave systemic heparin to assure ACT level above 250 throughout the whole procedure and I took a 6-F rench XB3.5 guide into the aortic root over a J-wire, engaged left main. We took an FFR wire into th e aortic root. Pressures were equalized and then wire was inserted into the LAD passing the area of stenosis and then did FFR using Lexiscan. It was significant 0.79 and then I pre-dilated the lesion using a 4.0 balloon and then placed a 4.0 x 12 mm Synergy drug-eluting stent across the area of steno sis of the proximal LAD with excellent results. Final angiograms satisfactory. Wire was removed, ca theter was removed and sheath was removed. A 6-[place] Angio-Seal was used for closure with good hemo stasis. Findings: 1.Left main; large, normal. 2.LAD; proximal 80% diffuse with FFR, status post successful PCI as above. In the LAD, there were l uminal irregularities. Diagonal branches have luminal irregularities. 3.Left circumflex; it is large, dominant with large OM branch that has a patent stent and then the c irc in the mid to distal, there is 40% stenosis. 4.RCA; small, nondominant and normal. 5.LVEDP slightly elevated to 19 mmHg. Conclusion: 1.Severe proximal LAD stenosis, status post successful PCI as above guided by FFR. 2.Mild coronary artery disease also. 3.Elevated LVEDP. Recommendation: 1.Continue aspirin, statin, and Plavix. 2.Introduce diuretics. SR/MODL Voice ID: [id number] Report ID: [id number]
== END 2023-03-08 11:50 | disposition home or self-care (01) ==
LOC: CCL 06:30
PROVIDERS: ATTEND Internal Medicine
DX: I25.110 Atherosclerotic heart disease of native coronary artery with unstable angina pectoris (principal); I48.0 Paroxysmal atrial fibrillation; I11.0 Hypertensive heart disease with heart failure; I50.32 Chronic diastolic (congestive) heart failure; I25.2 Old myocardial infarction; I65.23 Occlusion and stenosis of bilateral carotid arteries; E78.5 Hyperlipidemia, unspecified; Z95.5 Presence of coronary angioplasty implant and graft; Z79.02 Long term (current) use of antithrombotics/antiplatelets; Z79.899 Other long term (current) drug therapy; Z88.8 Allergy status to other drugs, medicaments and biological substances
CPT/HCPCS: 93005; 85025; 80048; 36415; 85610; 85347 ×2; 85730; 93458; 76937; 93571; C1893; C1760; Q9967; G0269; C1725; C9600; J1644; J2785 ×2; J2001; J2250; J3010; J7040; C1769; J0461

== ENCOUNTER 2023-03-31 17:36 | Emergency (ER) | payer OTHER, MEDICARE ==
--- NOTE | 2023-03-31 19:10 | RAD REPORT ---
EXAM DESCRIPTION: RAD - Ankle Right 3 View - 03/31/2023 6:26 pm CLINICAL HISTORY: Right ankle pain FINDINGS: No fracture or dislocation is seen involving the ankle Mildly displaced fracture base of the fifth metatarsal
--- NOTE | 2023-03-31 19:11 | RAD REPORT ---
EXAM DESCRIPTION: RAD - Foot Right 3 View - 03/31/2023 6:26 pm CLINICAL HISTORY: Right foot pain status post injury FINDINGS: Mildly displaced fracture base of the fifth metatarsal No dislocation Large plantar calcaneal spur
--- NOTE | 2023-03-31 19:28 | ER ---
Nurse's Notes [facility] Name: Kristal You Age: 82 yrs Sex: Female : 1940 Arrival Date: 03/31/2023 Time: 17:36 Bed 10 Private MD: Judd Gurrola Diagnosis: Nondisplaced fracture of fifth metatarsal bone, right foot;Pain in right foot Presentation: 03/31 17:53 Chief complaint: Patient states: Twisted right ankle/foot this morning. Coronavirus ld1 screen: At this time, the client does not indicate any symptoms associated with coronavirus-19. Ebola Screen: No symptoms or risks identified at this time. Initial Sepsis Screen: Does the patient meet any 2 criteria? No. Patient's initial sepsis screen is negative. Does the patient have a suspected source of infection? No. Patient's initial sepsis screen is negative. Risk Assessment: Do you want to hurt yourself or someone else? Patient reports no desire to harm self or others. Onset of symptoms was March 31, 2023. 17:53 Method Of Arrival: Wheelchair ld1 17:53 Acuity: LUCINA 4 ld1 Triage Assessment: 17:54 General: Appears in no apparent distress. comfortable, Behavior is calm, cooperative, ld1 appropriate for age. Pain: Complains of pain in right foot Pain does not radiate. Pain currently is 3 out of 10 on a pain scale. Quality of pain is described as throbbing. EENT: No signs and/or symptoms were reported regarding the EENT system. Neuro: Level of Consciousness is awake, alert, obeys commands, Oriented to person, place, time, situation. Cardiovascular: Capillary refill < 3 seconds Patient's skin is warm and dry. Respiratory: Airway is patent Respiratory effort is even, unlabored. GI: Abdomen is round non-distended. : No signs and/or symptoms were reported regarding the genitourinary system. Derm: No signs and/or symptoms reported regarding the dermatologic system. Musculoskeletal: No signs and/or symptoms reported regarding the musculoskeletal system. Historical: - Allergies: 17:54 LETY INHIBITORS; ld1 17:54 Nembutal Sodium; ld1 - PMHx: 17:54 Atrial Fib; Hypercholesterolemia; Congestive heart failure; neuropathy; UTI; ld1 Hypothyroidism; Hypertension; CVA; Asthma; Myocardial infarction; Chronic obstructive lung disease; - PSHx: 17:54 ablation; Cholecystectomy; cardiac stent; ld1 - Immunization history:: Adult Immunizations up to date, Client reports receiving the 2nd dose of the Covid vaccine. - Social history:: Smoking status: Patient denies any tobacco usage or history of. Patient/guardian denies using alcohol. Screenin:25 [facility] ED Fall Risk Assessment (Adult) History of falling in the last 3 months, pf1 including since admission No falls in past 3 months (0 pts) Confusion or Disorientation No (0 pts) Intoxicated or Sedated No (0 pts) Impaired Gait Yes (1 pt) Mobility Assist Device Used No (0 pt) Altered Elimination Yes (1 pt) Score/Fall Risk Level 3 or more points = High Risk Oriented to surroundings, Maintained a safe environment, Educated pt \T\ family on fall prevention, incl call for assistance when getting out of bed, Assessed \T\ reinforced patient's understanding of fall precautions, Provided non-skid footwear, Hourly rounding (assess needs \T\ fall precautionary measures) done, Used ambulatory aids as needed (educated on \T\ assisted with), Used gait belt as appropriate Implemented a Fall Risk Plan of Care, Apply high fall risk patient identification: yellow non skid footwear/ fall signage, Remained w/in arm's length of patient and in sight while toileting, Offered frequent toileting (1:1 observation), Remained with patient while ambulating, Utilized family, sitter, or virtual hand engraver as indicated. Abuse screen: Denies threats or abuse. Nutritional screening: No deficits noted. Tuberculosis screening: No symptoms or risk factors identified. Assessment: 20:00 General: Appears in no apparent distress. comfortable, well groomed, well developed, pf1 Behavior is calm, cooperative, appropriate for age, quiet. 20:00 Pain: Complains of pain in right foot Pain currently is 4 out of 10 on a pain scale. pf1 Neuro: No deficits noted. Level of Consciousness is awake, alert, obeys commands, Oriented to person, place, time, situation. Cardiovascular: No deficits noted. Capillary refill < 3 seconds Patient's skin is warm and dry. Respiratory: No deficits noted. Airway is patent Respiratory effort is even, unlabored, Respiratory pattern is regular, symmetrical. GI: No deficits noted. No signs and/or symptoms were reported involving the gastrointestinal system. : No deficits noted. No signs and/or symptoms were reported regarding the genitourinary system. EENT: No deficits noted. No signs and/or symptoms were reported regarding the EENT system. Derm: No deficits noted. No signs and/or symptoms reported regarding the dermatologic system. Musculoskeletal: Circulation, motion, and sensation intact. Capillary refill < 3 seconds, Reports pain in right foot. Vital Signs: 17:53 BP 119 / 62; Pulse 65; Resp 18; Temp 97.9(O); Pulse Ox 97% on R/A; Weight 107.5 kg; ld1 Height 5 ft. 2 in. ; Pain 3/10; 20:15 BP 119 / 77; Pulse 62; Resp 18; Pulse Ox 97% on R/A; Pain 4/10; pf1 17:53 Body Mass Index 43.35 (107.50 kg, 157.48 cm) ld1 17:53 Pain Scale: Adult ld1 20:15 Pain Scale: Adult pf1 ED Course: 17:38 Patient arrived in ED. am2 17:38 Judd Gurrola MD is Private Physician. am2 17:43 Storm Whyte DO is Attending Physician. ms3 17:54 Triage completed. ld1 17:54 Arm band placed on right wrist. ld1 18:28 Ankle Right 3 View XRAY In Process Unspecified. EDMS 18:28 Foot Right 3 View In Process Unspecified. EDMS 19:27 Blaine Herr DPM is Referral Physician. ms3 19:30 Patient has correct armband on for positive identification. Bed in low position. Call pf1 light in reach. 19:45 No provider procedures requiring assistance completed. Patient did not have IV access pf1 during this emergency room visit. ortho walking boot. Administered Medications: No medications were administered Medication: 20:27 VIS not applicable for this client. pf1 Outcome: 19:27 Discharge ordered by . ms3 20:27 Discharged to home via wheelchair. pf1 20:27 Condition: improved 20:27 Discharge instructions given to patient, Instructed on discharge instructions, follow up and referral plans. Demonstrated understanding of instructions, follow-up care. 20:27 Patient left the ED. pf1 Signatures: Dispatcher [employer] EDMS Kelsey Apple amStorm Espinoza DO DO ms3 Jayda Whyte, RN RN ld1 Elizabet Hays RN RN pf1 Corrections: (The following items were deleted from the chart) 20:26 20:25 [facility] ED Fall Risk Assessment (Adult) History of falling in the last 3 months, pf1 including since admission pf1
--- NOTE | 2023-03-31 19:28 | EDPHYS ---
Physician Documentation [facility] Name: Kristal You Age: 82 yrs Sex: Female : 1940 Arrival Date: 03/31/2023 Time: 17:36 Bed 10 Private MD: Judd Gurrola ED Physician Storm Whyte HPI: 03/31 17:54 This 82 yrs old Female presents to ER via Wheelchair with complaints of Foot Pain. ms3 17:54 82-year-old female with past medical history of atrial fibrillation, CVA, hypertension, ms3 coronary artery disease presents for right foot pain status post twisting her ankle at 11:30 AM. Patient states her foot fell asleep and as she was walking she twisted her ankle. Patient states pain is worse with walking. Patient rates her pain a 10/10. Patient denies alleviating factors. Historical: - Allergies: 17:54 LETY INHIBITORS; ld1 17:54 Nembutal Sodium; ld1 - PMHx: 17:54 Atrial Fib; Hypercholesterolemia; Congestive heart failure; neuropathy; UTI; ld1 Hypothyroidism; Hypertension; CVA; Asthma; Myocardial infarction; Chronic obstructive lung disease; - PSHx: 17:54 ablation; Cholecystectomy; cardiac stent; ld1 - Immunization history:: Adult Immunizations up to date, Client reports receiving the 2nd dose of the Covid vaccine. - Social history:: Smoking status: Patient denies any tobacco usage or history of. Patient/guardian denies using alcohol. ROS: 17:58 MS/extremity: Positive for pain, of the right foot. ms3 17:58 Constitutional: Negative for fever, and chills. Neck: Negative for injury, pain, and swelling, Cardiovascular: Negative for chest pain, and palpitations. Respiratory: Negative for shortness of breath, cough, wheezing, and pleuritic chest pain, Abdomen/GI: Negative for abdominal pain, nausea, vomiting, diarrhea, and constipation, Skin: Negative for injury, rash, and discoloration. 17:58 All other systems are negative. Exam: 17:58 Constitutional: This is a well developed, well nourished patient who is awake, alert, ms3 and in no acute distress. Head/Face: Normocephalic, atraumatic. Neck: Trachea midline, no cervical lymphadenopathy. Supple, full range of motion without nuchal rigidity, or vertebral point tenderness. No Meningismus. Chest/axilla: Normal chest wall appearance and motion. Nontender with no deformity. Cardiovascular: Regular rate and rhythm with a normal S1 and S2. No gallops, murmurs, or rubs. Normal PMI, no JVD. No pulse deficits. Respiratory: Lungs have equal breath sounds bilaterally, clear to auscultation and percussion. No rales, rhonchi or wheezes noted. No increased work of breathing, no retractions or nasal flaring. Abdomen/GI: Soft, non-tender, with normal bowel sounds. No distension or tympany. No guarding or rebound. No evidence of tenderness throughout. Skin: Warm, dry with normal turgor. Normal color with no rashes, no lesions, and no evidence of cellulitis. 17:58 Musculoskeletal/extremity: Extremities: noted in the right foot: pain, tenderness, There is no evidence of contusion, decreased ROM, deformity, ecchymosis, erythema. Vital Signs: 17:53 BP 119 / 62; Pulse 65; Resp 18; Temp 97.9(O); Pulse Ox 97% on R/A; Weight 107.5 kg; ld1 Height 5 ft. 2 in. ; Pain 3/10; 20:15 BP 119 / 77; Pulse 62; Resp 18; Pulse Ox 97% on R/A; Pain 4/10; pf1 17:53 Body Mass Index 43.35 (107.50 kg, 157.48 cm) ld1 17:53 Pain Scale: Adult ld1 20:15 Pain Scale: Adult pf1 MDM: 17:57 Patient medically screened. ms3 21:10 Differential diagnosis: fracture, sprain. Data reviewed: vital signs, nurses notes, ms3 radiologic studies, plain films, and as a result, I will discharge patient. Counseling: I had a detailed discussion with the patient and/or guardian regarding: the historical points, exam findings, and any diagnostic results supporting the discharge/admit diagnosis, radiology results, the need for outpatient follow up, to return to the emergency department if symptoms worsen or persist or if there are any questions or concerns that arise at home. ED course: Discussed x-ray findings with patient. Patient to follow-up with podiatry as discussed. All questions were answered. Return precautions discussed include worsening symptoms, or any other concerns. Patient placed in fracture boot. Patient states she has a walker at home to keep weight off of foot.. 03/31 17:53 Order name: Ankle Right 3 View XRAY; Complete Time: 19:16 ms3 03/31 18:28 Order name: Foot Right 3 View; Complete Time: 19:16 EDMS 03/31 19:29 Order name: Misc. Order: Fracture boot right foot; Complete Time: 20:01 ms3 Administered Medications: No medications were administered Disposition Summary: 03/31/23 19:27 Discharge Ordered Location: Home ms3 Condition: Stable ms3 Diagnosis - Nondisplaced fracture of fifth metatarsal bone, right foot ms3 - Pain in right foot ms3 Followup: ms3 - With: Blaine Herr DPM - When: 2 - 3 days - Reason: Recheck today's complaints Discharge Instructions: - Discharge Summary Sheet ms3 - Metatarsal Fracture ms3 Forms: - Medication Reconciliation Form ms3 - Thank You Letter ms3 - Antibiotic Education ms3 - Prescription Opioid Use ms3 Signatures: Dispatcher [employer] EDMS Storm Whyte DO DO ms3 Jayda Whyte RN RN ld1 Corrections: (The following items were deleted from the chart) 18:28 17:53 Foot Left 3 View+RAD.RAD.BRZ ordered. EDMS EDMS
[2023-03-31 20:32] VITALS: TEMP 97.9; O2SAT 97
[2023-03-31 20:34] VITALS: BP 119/77
== END 2023-03-31 20:27 | disposition home or self-care (01) ==
LOC: ER 17:36
DX: S92.354A Nondisplaced fracture of fifth metatarsal bone, right foot, initial encounter for closed fracture (principal)
CPT/HCPCS: 99283

== ENCOUNTER 2024-02-08 20:40 | Emergency (ER) | payer OTHER, MEDICARE ==
[2024-02-08] MEDS ORDERED: METOCLOPRAMIDE 10 MG/2mL INJ ONE (21:53)
[2024-02-08] MEDS ORDERED: LABETALOL 20 MG/4ML SYRINGE IV ONE (21:54)
[2024-02-08] MEDS ORDERED: MAGNESIUM SULFATE 1 gm IVPB 1 GM/100 ML BAG IV ONE (21:54)
[2024-02-08] MEDS ORDERED: GLUCAGON 1 MG/VIAL ONE (21:54)
--- NOTE | 2024-02-08 22:05 | RAD REPORT ---
EXAM DESCRIPTION: CT - Thorax Wo Con - 02/08/2024 9:38 pm CLINICAL HISTORY: sob. Food stuck in distal esophagus COMPARISON: none TECHNIQUE: Computed axial tomography of the chest was obtained. Contrast was not requested. All CT scans are performed using dose optimization technique as appropriate and may include automated exposure control or mA/KV adjustment according to patient size. FINDINGS: The evaluation of mediastinum, adrian and vessels is limited secondary to lack of IV contras t administration. Mild nodularity and mild tree in bud opacities left lung. Right lung is clear. No mediastinal or hilar lymphadenopathy is seen. A pleural effusion is not present. Watchman device left atrial appendage Moderate to large pericardial effusion. Small to moderate hiatal hernia. There is a mottled appearance within the hiatal hernia having the ap pearance of ingested food. IMPRESSION: There appears to be ingested food within a small to moderate hiatal hernia. This may ind icate that structure is present as the hernia courses through diaphragmatic hiatus. The esophagus is not dilated. Mild nodularity in tree-in-bud opacities left lung may indicate an atypical infection or aspiration Moderate to large pericardial effusion
[2024-02-08 22:30] LABS: Absolute Eosinophils 0.1 K/uL (0-0.5); Absolute Lymphocytes (CBC) 1.3 K/uL (0.7-4.9); Absolute Monocytes 0.6 K/uL (0.1-1.3); Absolute Neutrophil 5.3 K/uL (1.8-8.0); Basophils % 0.3 % (0-1.3); Hematocrit 33.8 % (36.0-45.0); Hemoglobin 11.1 g/dL (12.0-15.0); Lymphocytes % 17.2 % (15.3-44.8); MCH 28.1 pg (27.0-35.0); MCHC 32.9 g/dL (32.0-36.0); MCV 85.4 fL (80-100); Monocytes % 7.6 % (3.3-12.3); Neutrophils % 72.9 % (41.7-73.7); Nucleated Red Blood Cells % 0.1 % (0-0); Platelets 193 thou/uL (152-406); RBC Red Blood Cell Count 3.96 M/uL (3.86-4.86); Red Cell Distribution Width 16.2 % (12.1-15.2)
[2024-02-08 22:45] LABS: PT Prothrombin Time 12.6 SECONDS (9.5-12.5); PTT, Activated Partial Thromb 32.2 SECONDS (24.3-36.9); Protime INR 1.15
[2024-02-08 22:47] LABS: Albumin 3.1 g/dL (3.4-5.0); Albumin/Globulin Ratio 0.8 (1.1-1.8); Anion Gap 8.4 mEq/L (5.0-15.0); Bilirubin Total 0.6 mg/dL (0.2-1.0); Globulin 3.9 g/dL (2.3-3.5); Potassium 3.4 mEq/L (3.5-5.1)
--- NOTE | 2024-02-08 23:09 | EDPHYS ---
Physician Documentation [facility] Name: Kristal You Age: 83 yrs Sex: Female : 1940 Arrival Date: 02/08/2024 Time: 20:40 Bed 13 Private MD: ED Physician Celso Amin HPI: 02/07 21:14 This 83 yrs old Female presents to ER via Unassigned with complaints of food bolus. sb4 21:14 The patient or guardian reports the patient has a suspected foreign body, of the sb4 throat. The reported likely foreign body is hard boiled eggs. Onset: The symptoms/episode began/occurred today. Current symptoms: foreign body sensation, nausea, vomiting. Treatment Prior to Arrival: the patient induced vomiting, drinking carbonated beverages. The patient has not experienced similar symptoms in the past. The patient has not recently seen a physician. Historical: - Allergies: 20:50 LETY INHIBITORS; jb4 20:50 Nembutal Sodium; jb4 - PMHx: 20:50 Asthma; Chronic obstructive lung disease; Congestive heart failure; CVA; jb4 Hypercholesterolemia; Hypertension; Hypothyroidism; Myocardial infarction; neuropathy; UTI; Atrial Fib; - PSHx: 20:50 ablation; cardiac stent; Cholecystectomy; jb4 - Immunization history:: Adult Immunizations. - Infectious Disease History:: Denies. - Social history:: Smoking status: Patient denies any tobacco usage or history of. ROS: 21:14 Constitutional: Negative for fever, chills, and weight loss, sb4 21:14 ENT: Positive for foreign body sensation, 21:14 Abdomen/GI: Positive for nausea and vomiting, 21:14 All other systems are negative, Exam: 21:14 Constitutional: This is a well developed, well nourished patient who is awake, alert, sb4 and in no acute distress. Head/Face: Normocephalic, atraumatic. Eyes: Extra-ocular motions intact. Periorbital areas with no swelling, redness, or edema. ENT: Mucous membranes moist. Cardiovascular: Regular rate and rhythm with a normal S1 and S2. Respiratory: Lungs have equal breath sounds bilaterally, clear to auscultation and percussion. No rales, rhonchi or wheezes noted. No increased work of breathing, no retractions or nasal flaring. Abdomen/GI: Soft, non-tender, no distension. Skin: Warm, dry with normal turgor. Normal color with no rashes, no lesions, and no evidence of cellulitis. MS/ Extremity: Pulses equal, no cyanosis. Neurovascular intact. Full, normal range of motion. Neuro: Awake and alert, GCS 15, oriented to person, place, time, and situation. Motor strength 5/5 in all extremities. Sensory grossly intact. Vital Signs: 20:50 BP 189 / 124; Pulse 72; Resp 20; Temp 98.3(O); Pulse Ox 95% on R/A; Weight 100.7 kg jb4 (R); Height 5 ft. 2 in. ; 21:00 BP 189 / 124; Pulse 125; Resp 20; Pulse Ox 96% on R/A; me1 22:00 BP 154 / 129; Pulse 114; Resp 20; Pulse Ox 95% on R/A; me1 23:00 BP 173 / 87; Pulse 109; Resp 18; Pulse Ox 96% on R/A; me1 23:00 BP 165 / 83; Pulse 110; Resp 18; Pulse Ox 95% on R/A; me1 02/08 01:03 BP 156 / 80; Pulse 102; Resp 18; Pulse Ox 96% ; Pain 0/10; ha1 02/07 20:50 Body Mass Index 40.60 (100.70 kg, 157.48 cm) 4 02/08 01:03 Pain Scale: Adult ha1 MDM: 02/07 20:49 Patient medically screened. sb4 23:07 Data reviewed: vital signs, nurses notes, lab test result(s), radiologic studies, I sb4 have discussed the patient's presentation/case with the attending Emergency Department Physician;. Counseling: I had a detailed discussion with the patient and/or guardian regarding the historical points, exam findings, and any diagnostic results supporting the discharge/admit diagnosis, the need to transfer to another facility, [facility] does not immediately have the required specialist. 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 patient requests transfer to [facility]. sb4 02/07 21:04 Order name: CBC with Diff; Complete Time: 22:37 sb4 02/07 21:04 Order name: CMP; Complete Time: 22:53 sb4 02/07 21:04 Order name: Lipase; Complete Time: 22:53 sb4 02/07 21:04 Order name: PT-INR; Complete Time: 22:53 sb4 02/07 21:04 Order name: Ptt, Activated; Complete Time: 22:53 sb4 02/07 21:04 Order name: CT Chest Wo Con; Complete Time: 22:07 sb4 02/07 21:04 Order name: IV Saline Lock; Complete Time: 22:22 sb4 02/07 21:04 Order name: Labs collected and sent; Complete Time: 22:22 sb4 Administered Medications: 22:22 Drug: Glucagon IVP 1 mg IVP once Route: IVP; Site: left [facility]; [facility] 02/08 00:06 Follow up: Response: No adverse reaction [facility] 02/07 22:22 Drug: Magnesium Sulfate IVPB 1 grams IVPB once over 1 hrs Route: IVPB; Infused Over: 1 me1 hrs; Site: [facility]; 02/08 00:06 Follow up: IV Status: Completed infusion [facility] 02/07 22:22 Drug: metoCLOPramide IVP 10 mg IVP once; over 1 to 2 minutes Route: IVP; Site: [address]; 02/08 00:06 Follow up: Response: No adverse reaction [facility] 02/07 22:22 Drug: Labetalol IV 10 mg IV at calculated rate once Route: IV; Rate: calculated rate; [facility] Site: [facility]; 02/08 00:06 Follow up: Response: No adverse reaction; Blood pressure is lowered; IV Status: me1 Completed infusion 01:21 Follow up: Response: No adverse reaction; IV Status: Completed infusion 1 02/07 23:57 Drug: Piperacillin-Tazobactam IVPB 3.375 grams IVPB once over 60 mins; (mix in NS 100 me1 mL) Route: IVPB; Infused Over: 60 mins; Site[facility]; 02/08 01:21 Follow up: Response: No adverse reaction; IV Status: Completed infusion; IV Intake: ha1 100ml Disposition Summary: 02/08/24 23:09 Transfer Ordered Notes: Transfer Location: [facility] sb4 Condition: Fair sb4 Problem: new sb4 Symptoms: are unchanged sb4 Reason: Specialty(02/08/24 23:25) sb4 Accepting Physician: Dr. Rashmi Rizvi(02/09/24 01:54) ha1 Diagnosis - Food in esophagus sb4 - aspiration pneumonia sb4 Forms: - Medication Reconciliation Form sb4 - SBAR form sb4 Addendum: 02/10/2024 06:08 I was immediately available for consultation during this patient's visit. I did not e c2 personally see the patient or discuss the patient with the CARTER. . Signatures: Dispatcher [employer] Jaron Khan RN RN jb4 Maria E Mujica RN RN ha1 Tiffani Esposito PAVineetC PAVineetC sb4 Yvonne Gomez RN RN me1 Celso Amin MD MD ec2 Corrections: (The following items were deleted from the chart) 02/07 23:25 23:09 GI sb4 sb4 23:25 23:09 Higher level of care sb4 sb4 02/08 01:11 02/07 23:25 GI sb4 sb4 02/08 01:54 01:11 Dr. Rashmi Rizvi sb4 ha1
--- NOTE | 2024-02-08 23:09 | ER ---
Nurse's Notes [facility] Name: Kristal You Age: 83 yrs Sex: Female : 1940 Arrival Date: 02/08/2024 Time: 20:40 Bed 13 Private MD: Diagnosis: Food in esophagus;aspiration pneumonia Presentation: 02/07 20:50 Method Of Arrival: Wheelchair jb4 20:50 Chief complaint: Patient states: I ate 2 eggs around 1 pm and now have had trouble jb4 swallowing. It feels like something is stuck in my throat. Coronavirus screen: At this time, the client does not indicate any symptoms associated with coronavirus-19. Ebola Screen: No symptoms or risks identified at this time. Initial Sepsis Screen: Does the patient meet any 2 criteria? No. Patient's initial sepsis screen is negative. Does the patient have a suspected source of infection? No. Patient's initial sepsis screen is negative. Risk Assessment: Do you want to hurt yourself or someone else? Patient reports no desire to harm self or others. Onset of symptoms was February 08, 2024. Transition of care: patient was not received from another setting of care. 20:50 Acuity: LUCINA 3 jb4 Triage Assessment: 20:50 General: Appears in no apparent distress. uncomfortable, Behavior is calm, cooperative. jb4 Pain: Denies pain. Cardiovascular: Patient's skin is warm and dry. Respiratory: Airway is patent Respiratory effort is even, unlabored, Respiratory pattern is regular, symmetrical. 02/08 00:22 Respiratory:. Respiratory: Onset: The symptoms/episode began/occurred today, the me1 patient has mild shortness of breath. Historical: - Allergies: 02/07 20:50 LETY INHIBITORS; jb4 20:50 Nembutal Sodium; jb4 - PMHx: 20:50 Asthma; Chronic obstructive lung disease; Congestive heart failure; CVA; jb4 Hypercholesterolemia; Hypertension; Hypothyroidism; Myocardial infarction; neuropathy; UTI; Atrial Fib; - PSHx: 20:50 ablation; cardiac stent; Cholecystectomy; jb4 - Immunization history:: Adult Immunizations. - Infectious Disease History:: Denies. - Social history:: Smoking status: Patient denies any tobacco usage or history of. Screenin:15 [facility] ED Fall Risk Assessment (Adult) History of falling in the last 3 months, [facility] including since admission No falls in past 3 months (0 pts) Confusion or Disorientation No (0 pts) Intoxicated or Sedated No (0 pts) Impaired Gait No (0 pts) Mobility Assist Device Used No (0 pt) Altered Elimination No (0 pt) Score/Fall Risk Level 0 - 2 = Low Risk Maintained a safe environment, Provided non-skid footwear, Hourly rounding (assess needs \T\ fall precautionary measures) done. Abuse screen: Denies threats or abuse. Nutritional screening: No deficits noted. Tuberculosis screening: No symptoms or risk factors identified. Assessment: 21:15 General: Appears uncomfortable, obese, well developed, well nourished, Behavior is vt1 cooperative, appropriate for age, anxious, Reports I ate 2 eggs around 1 pm and now have had trouble swallowing. It feels like something is stuck in my throat. Pain: Denies pain. Neuro: Level of Consciousness is awake, alert, obeys commands, Oriented to person, place, time, situation, Appropriate for age. Cardiovascular: Capillary refill < 3 seconds Patient's skin is warm and dry. Respiratory: Airway is patent Respiratory effort is even, unlabored, Respiratory pattern is regular, symmetrical, Breath sounds are clear bilaterally. GI: Reports intolerance of fluids, intolerance of food, since 1 pm. I ate 2 eggs around 1 pm and now have had trouble swallowing. It feels like something is stuck in my throat.Food and fluids come back up since. : No signs and/or symptoms were reported regarding the genitourinary system. EENT: Reports difficulty swallowing since I ate 2 eggs around 1 pm and now have had trouble swallowing. It feels like something is stuck in my throat. Derm: Skin is intact, Skin is pink, warm \T\ dry. Musculoskeletal: No signs and/or symptoms reported regarding the musculoskeletal system. 02/08 00:20 General: daughter Lissette Patricia [phone] cell; [phone] home asked for the [facility] nurse to call with transfer info. . 01:04 Reassessment: Patient and/or family updated on plan of care and expected duration. Pain ha1 level reassessed. Patient is alert, oriented x 3, equal unlabored respirations, skin warm/dry/pink. Introduced self to pt, continues with fb sensation to esophagus and intermittent nausea, pending transfer to [facility], verbalizes understanding, call hester within reach. Patient states symptoms have not improved. 01:51 Cardiovascular: Rhythm is sinus rhythm. ha1 Vital Signs: 02/07 20:50 BP 189 / 124; Pulse 72; Resp 20; Temp 98.3(O); Pulse Ox 95% on R/A; Weight 100.7 kg jb4 (R); Height 5 ft. 2 in. ; 21:00 BP 189 / 124; Pulse 125; Resp 20; Pulse Ox 96% on R/A; me1 22:00 BP 154 / 129; Pulse 114; Resp 20; Pulse Ox 95% on R/A; me1 23:00 BP 173 / 87; Pulse 109; Resp 18; Pulse Ox 96% on R/A; me1 23:00 BP 165 / 83; Pulse 110; Resp 18; Pulse Ox 95% on R/A; me1 02/08 01:03 BP 156 / 80; Pulse 102; Resp 18; Pulse Ox 96% ; Pain 0/10; ha1 02/07 20:50 Body Mass Index 40.60 (100.70 kg, 157.48 cm) jb4 02/08 01:03 Pain Scale: Adult ha1 ED Course: 02/07 20:43 Patient arrived in ED. ra3 20:45 Tiffani Esposito PA-C is PHCP. sb4 20:45 Celso Amin MD is Attending Physician. sb4 20:50 Arm band placed on right wrist. jb4 21:15 Yvonne Gomez, RN is Primary Nurse. me1 21:24 Triage completed. jb4 21:40 CT Chest Wo Con In Process Unspecified. EDMS 22:21 Initial lab(s) drawn, by vt, sent to lab. Inserted saline lock: 24 gauge in left upper me1 arm, using aseptic technique. 22:22 Ptt, Activated Sent. me1 22:22 PT-INR Sent. me1 22:22 CBC with Diff Sent. me1 22:22 CMP Sent. me1 22:22 Lipase Sent. me1 22:30 Client placed on continuous cardiac and pulse oximetry monitoring. NIBP monitoring [facility] applied. Pulse ox on. NIBP on. 23:00 contacted [facility] for initiate transfer. [facility] 02/08 00:04 [facility] is [facility]. trying [facility]. km 00:20 Patient has correct armband on for positive identification. Bed in low position. Call [facility] light in reach. Side rails up X2. Provided Education on: POC. Verbalized understanding. . 00:20 No provider procedures requiring assistance completed. me1 00:39 pt accepted to [facility] 5th floor. number for nurse to nurse report, . [facility] Accepting Dr. Dayana Bhatia gave approval \T\ 0039. Admin approval given by Geovanni Avalos RN-TC. faxed pt facesheet and mot to [phone]. [facility] to transfer pt. 01:34 Report given to Parveen Castaneda RN with [facility] 5th floor. ha1 01:53 Patient transferred, IV remains in place. ha1 Administered Medications: 02/07 22:22 Drug: Glucagon IVP 1 mg IVP once Route: IVP; Site: left [facility]; [facility] 02/08 00:06 Follow up: Response: No adverse reaction [facility] 02/07 22:22 Drug: Magnesium Sulfate IVPB 1 grams IVPB once over 1 hrs Route: IVPB; Infused Over: 1 me1 hrs; Site: left [facility]; 02/08 00:06 Follow up: IV Status: Completed infusion [facility] 02/07 22:22 Drug: metoCLOPramide IVP 10 mg IVP once; over 1 to 2 minutes Route: IVP; Site: [address]; 02/08 00:06 Follow up: Response: No adverse reaction [facility] 02/07 22:22 Drug: Labetalol IV 10 mg IV at calculated rate once Route: IV; Rate: calculated rate; [facility] Site: left [facility]; 02/08 00:06 Follow up: Response: No adverse reaction; Blood pressure is lowered; IV Status: me1 Completed infusion 01:21 Follow up: Response: No adverse reaction; IV Status: Completed infusion [facility] 02/07 23:57 Drug: Piperacillin-Tazobactam IVPB 3.375 grams IVPB once over 60 mins; (mix in NS 100 me1 mL) Route: IVPB; Infused Over: 60 mins; Site: left upper arm; 02/08 01:21 Follow up: Response: No adverse reaction; IV Status: Completed infusion; IV Intake: ha1 100ml Medication: 02/07 21:15 VIS not applicable for this client. me1 Intake: 02/08 01:21 IV: 100ml; Total: 100ml. ha1 Outcome: 02/07 23:09 ER care complete, transfer ordered by . sb4 02/08 01:51 Transferred by ground EMS Transfer form completed. X-rays sent w/ patient. Note: ha1 [facility] 5th floor Condition: stable Instructed on the need for transfer, 01:53 Instructed on the need for transfer, Demonstrated understanding of instructions, ha1 01:54 Patient left the ED. ha1 Signatures: Dispatcher [employer] EDMS Jaron David RN RN jb4 Maria E Mujica RN RN ha1 Tiffani Esposito, PA-C PAVineetC luli4 Yvonne Gomez RN RN me1 Shannen Shea kmSimran Stewart ra3 Corrections: (The following items were deleted from the chart) 00:16 02/07 20:50 Chief complaint: Patient states: I ate 2 eggs around 1 pm and now have had me1 trouble swallowing. It feels like something is stuck in my throat. jb4
[2024-02-08] MEDS ORDERED: NA CHLORIDE 0.9% 100 ML ONE (23:54)
[2024-02-08] MEDS ORDERED: PIPERACIL/TAZO 3.375 GM VIAL IV ONE (23:54)
[2024-02-09 11:08] VITALS: BP 156/80; TEMP 98.3; O2SAT 96
== END 2024-02-09 01:54 | disposition short-term general hospital (02) ==
LOC: ER 20:40
DX: J69.0 Pneumonitis due to inhalation of food and vomit (principal); I10 Essential (primary) hypertension; I50.9 Heart failure, unspecified; Z95.818 Presence of other cardiac implants and grafts; Z88.8 Allergy status to other drugs, medicaments and biological substances
CPT/HCPCS: 96365; 96367; 96368; 85025; 36415; 85610; 85730; 83690; 80053; 71250; 96375; 99285; 96366; J1610; J3475; J2765; J2543

== ENCOUNTER 2024-06-25 15:11 | Emergency (ER) | payer OTHER, MEDICARE ==
[2024-06-25 16:01] LABS: Absolute Eosinophils 0.2 K/uL (0-0.5); Absolute Lymphocytes (CBC) 1.4 K/uL (0.7-4.9); Absolute Monocytes 0.5 K/uL (0.1-1.3); Absolute Neutrophil 5.7 K/uL (1.8-8.0); Basophils % 0.6 % (0-1.3); Eosinophils % 2.5 % (0-4.4); Hemoglobin 12.3 g/dL (12.0-15.0); Lymphocytes % 18.4 % (15.3-44.8); MCH 29.4 pg (27.0-35.0); MCHC 32.3 g/dL (32.0-36.0); MCV 90.9 fL (80-100); MPV 7.8 fL (7.6-11.3); Monocytes % 5.8 % (3.3-12.3); Neutrophils % 72.7 % (41.7-73.7); Platelets 229 thou/uL (152-406); RBC Red Blood Cell Count 4.18 M/uL (3.86-4.86)
--- NOTE | 2024-06-25 16:12 | RAD REPORT ---
EXAM DESCRIPTION: RAD - Chest Single View - 06/25/2024 3:59 pm CLINICAL HISTORY: pericardial effusion Chest pain. COMPARISON: Chest Single View dated 02/10/2023; Chest Single View dated 02/03/2023; Chest Single View dated 12/03/2022; Chest Single View dated 12/01/2022; Thorax Wo Con dated 02/08/2024 FINDINGS: Portable technique limits examination quality. The lungs are grossly clear. The heart is mildly prominent in size. No displaced fractures. IMPRESSION: No acute intrathoracic process suspected.
[2024-06-25 16:21] LABS: Albumin 3.7 g/dL (3.4-5.0); Albumin/Globulin Ratio 0.8 (1.1-1.8); Anion Gap 8.1 mEq/L (5.0-15.0); Bilirubin Direct 0.2 mg/dL (0-0.2); Bilirubin Indirect, Calculated 0.2 mg/dL (0.2-0.8); Bilirubin Total 0.4 mg/dL (0.2-1.0); Globulin 4.4 g/dL (2.3-3.5); Magnesium 2.1 mg/dL (1.6-2.4); Potassium 4.1 mEq/L (3.5-5.1); Protein, Total 8.1 g/dL (6.4-8.2)
[2024-06-25 16:23] LABS: PTT, Activated Partial Thromb 32.1 SECONDS (24.3-36.9); Protime INR 0.98
--- NOTE | 2024-06-25 16:34 | EDPHYS ---
Physician Documentation [facility] Name: Kristal You Age: 84 yrs Sex: Female : 1940 Arrival Date: 06/25/2024 Time: 15:11 Bed 2 Private MD: ED Physician Rudi Wray HPI: 06/25 16:09 This 84 yrs old Female presents to ER via Ambulatory with complaints of Doesn't Feel rt Right. 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 rt Dr. Colbert called ahead, request patient be transferred to [facility] for pericardiocentesis. She reports fatigue, exercise intolerance but denies overt chest pain, shortness of breath. Denies other acute complaints at this time, symptoms are moderate in severity, no other aggravating or elevating factors.. Historical: - Allergies: 15:18 LETY INHIBITORS; db 15:18 Nembutal Sodium; db - PMHx: 15:18 CVA; Hypercholesterolemia; Hypertension; Chronic obstructive lung disease; Congestive db heart failure; Congestive heart failure; Hypothyroidism; Hypothyroidism; Myocardial infarction; Atrial Fib; neuropathy; UTI; Asthma; - PSHx: 15:18 Cholecystectomy; cardiac stent; ablation; db - Immunization history:: Adult Immunizations unknown. - Infectious Disease History:: Denies. - Social history:: Smoking status: Patient denies any tobacco usage or history of. - Family history:: not pertinent. ROS: 16:09 Cardiovascular: Negative for chest pain, palpitations, and edema, Respiratory: Negative rt for shortness of breath, cough, wheezing, and pleuritic chest pain, Abdomen/GI: Negative for abdominal pain, nausea, vomiting, diarrhea, and constipation, MS/Extremity: Negative for injury and deformity, Skin: Negative for injury, rash, and discoloration, Neuro: Negative for headache, weakness, numbness, tingling, and seizure, 16:09 Constitutional: Positive for fatigue, malaise, 16:09 Neuro: Exam: 16:09 Constitutional: This is a well developed, well nourished patient who is awake, alert, rt and in no acute distress. Head/Face: Normocephalic, atraumatic. Chest/axilla: Normal chest wall appearance and motion. Nontender with no deformity. No lesions are appreciated. Respiratory: Lungs have equal breath sounds bilaterally, clear to auscultation and percussion. No rales, rhonchi or wheezes noted. No increased work of breathing, no retractions or nasal flaring. Abdomen/GI: Soft, non-tender, with normal bowel sounds. No distension or tympany. No guarding or rebound. No evidence of tenderness throughout. Skin: Warm, dry with normal turgor. Normal color with no rashes, no lesions, and no evidence of cellulitis. MS/ Extremity: Pulses equal, no cyanosis. Neurovascular intact. Full, normal range of motion. Neuro: Awake and alert, GCS 15, oriented to person, place, time, and situation. Cranial nerves II-XII grossly intact. Motor strength 5/5 in all extremities. Sensory grossly intact. Cerebellar exam normal. Normal gait. 16:09 Cardiovascular: Muffled heart sound, 16:09 ECG was reviewed by the Attending Physician. Vital Signs: 15:17 BP 172 / 63; Pulse 64; Resp 18; Temp 98.4(O); Pulse Ox 97% ; Weight 99.79 kg; Height 5 db ft. 2 in. ; 16:40 BP 157 / 79; Pulse 69; Resp 18; Pulse Ox 96% on R/A; mb9 18:03 BP 162 / 75; Pulse 78; Resp 18; Pulse Ox 100% on R/A; mb9 15:17 Body Mass Index 40.24 (99.79 kg, 157.48 cm) db MDM: 15:23 Patient medically screened. rt 17:31 Differential Diagnosis Pericardial effusion. Data reviewed: vital signs, nurses notes, rt lab test result(s), EKG, radiologic studies. Management of patient was discussed with the following: Jewel Bearing Grinder: Discussed with Dr. Colbert, request the patient be transferred to [facility] for pericardiocentesis. Care significantly affected by the following chronic conditions: Congestive Heart Failure. Counseling: I had a detailed discussion with the patient and/or guardian regarding the historical points, exam findings, and any diagnostic results supporting the discharge/admit diagnosis, lab results, radiology results, the need to transfer to another facility. 17:36 Response to treatment: There is no appreciated change of the patient's symptoms at this rt time. 06/25 15:31 Order name: Basic Metabolic Panel; Complete Time: 16:24 rt 06/25 15:31 Order name: CBC with Diff; Complete Time: 16:18 rt 06/25 15:31 Order name: LFT's; Complete Time: 16:24 rt 06/25 15:31 Order name: Magnesium; Complete Time: 16:24 rt 06/25 15:31 Order name: NT PRO-BNP; Complete Time: 16:24 rt 06/25 15:31 Order name: PT-INR; Complete Time: 16:24 rt 06/25 15:31 Order name: Troponin HS; Complete Time: 16:24 rt 06/25 15:31 Order name: Ptt, Activated; Complete Time: 16:24 rt 06/25 15:31 Order name: XRAY Chest (1 view); Complete Time: 16:18 rt 06/25 15:31 Order name: Cardiac monitoring; Complete Time: 15:55 rt 06/25 15:31 Order name: EKG - Nurse/Tech; Complete Time: 15:55 rt 06/25 15:31 Order name: IV Saline Lock; Complete Time: 15:55 rt 06/25 15:31 Order name: Labs collected and sent; Complete Time: 15:55 rt 06/25 15:31 Order name: O2 Per Protocol; Complete Time: 15:55 rt 06/25 15:31 Order name: O2 Sat Monitoring; Complete Time: 15:56 rt EC:09 Rate is 59 beats/min. Rhythm is regular, Sinus bradycardia with No ectopy, Low voltage rt QRS. QRS [place] is Normal. [place] interval is normal. QRS interval is normal. QT interval is normal. No Q waves. No ST changes noted. Interpreted by me. Administered Medications: No medications were administered Disposition Summary: 06/25/24 16:33 Transfer Ordered Notes: Transfer Location: [facility] rt Reason: Higher level of care rt Condition: Stable rt Problem: new rt Symptoms: are unchanged rt Accepting Physician: (06/25/24 18:38) bp Diagnosis - Pericardial effusion rt Forms: - Medication Reconciliation Form rt - SBAR form rt Signatures: Dispatcher [employer] EDMS Bipin Vega, RN RN Glo Diaz RN RN db [place], Ryan, MD MD rt Corrections: (The following items were deleted from the chart) 15:31 15:31 BASIC METABOLIC PANEL+C.LAB.BRZ ordered. EDMS EDMS 15:31 15:31 CBC+H.LAB.BRZ ordered. EDMS EDMS 15: 15:31 HEPATIC FUNCTION+C.LAB.BRZ ordered. EDMS EDMS 15: 15:31 MAGNESIUM+C.LAB.BRZ ordered. EDMS EDMS 15: 15:31 PROBNP+C.LAB.BRZ ordered. EDMS EDMS 15: 15:31 PROTIME (+INR)+COAG.LAB.BRZ ordered. EDMS EDMS 15: 15:31 Troponin High Sensitivity+C.LAB.BRZ ordered. EDMS EDMS 15: 15:31 PTT, ACTIVATED+COAG.LAB.BRZ ordered. EDMS EDMS 15: 15:31 Chest Single View+RAD.RAD.BRZ ordered. EDMS EDMS 18:38 16:33 rt bp
--- NOTE | 2024-06-25 16:34 | ER ---
Nurse's Notes [facility] Name: Kristal You Age: 84 yrs Sex: Female : 1940 Arrival Date: 06/25/2024 Time: 15:11 Bed 2 Private MD: Diagnosis: Pericardial effusion Presentation: 06/25 15:17 Chief complaint: Patient states: SENT TO ER BY DR. COELHO DUE TO "FLUID AROUND HEART". db PT REPORTS HAVING AN ECHO LAST WEEK. Coronavirus screen: Client denies travel out of the [place] in the last 14 days. At this time, the client does not indicate any symptoms associated with coronavirus-19. Ebola Screen: Patient negative for fever greater than or equal to 101.5 degrees Fahrenheit, and additional compatible Ebola Virus Disease symptoms Patient denies exposure to infectious person. Patient denies travel to an Ebola-affected area in the 21 days before illness onset. No symptoms or risks identified at this time. Initial Sepsis Screen: Does the patient meet any 2 criteria? No. Patient's initial sepsis screen is negative. Does the patient have a suspected source of infection? No. Patient's initial sepsis screen is negative. Risk Assessment: Do you want to hurt yourself or someone else? Patient reports no desire to harm self or others. Onset of symptoms was June 25, 2024. 15:17 Method Of Arrival: Ambulatory db 15:17 Acuity: LUCINA 2 db Triage Assessment: 15:18 General: Appears in no apparent distress. comfortable, Behavior is calm, cooperative. db Pain: Denies pain. Cardiovascular:. Cardiovascular: Reports lightheadedness, FLUID AROUND HEART. Historical: - Allergies: 15:18 LETY INHIBITORS; db 15:18 Nembutal Sodium; db - PMHx: 15:18 CVA; Hypercholesterolemia; Hypertension; Chronic obstructive lung disease; Congestive db heart failure; Congestive heart failure; Hypothyroidism; Hypothyroidism; Myocardial infarction; Atrial Fib; neuropathy; UTI; Asthma; - PSHx: 15:18 Cholecystectomy; cardiac stent; ablation; db - Immunization history:: Adult Immunizations unknown. - Infectious Disease History:: Denies. - Social history:: Smoking status: Patient denies any tobacco usage or history of. - Family history:: not pertinent. Screenin:54 [facility] ED Fall Risk Assessment (Adult) History of falling in the last 3 months, mb9 including since admission No falls in past 3 months (0 pts) Confusion or Disorientation No (0 pts) Intoxicated or Sedated No (0 pts) Impaired Gait Yes (1 pt) Mobility Assist Device Used Yes (1 pt) Altered Elimination No (0 pt) Score/Fall Risk Level 3 or more points = High Risk Oriented to surroundings, Maintained a safe environment, Educated pt \\T\\ family on fall prevention, incl call for assistance when getting out of bed. Abuse screen: Denies threats or abuse. Nutritional screening: No deficits noted. Tuberculosis screening: No symptoms or risk factors identified. Assessment: 15:54 General: Appears in no apparent distress. Behavior is calm, cooperative. Pain: Denies mb9 pain. Neuro: [place] Agitation-Sedation Scale (RASS): 0 - Alert and Calm Level of Consciousness is awake, alert, obeys commands, Oriented to person, place, time, situation, Appropriate for age. Cardiovascular: Heart tones S1 S2 present Patient's skin is warm and dry. Respiratory: Reports shortness of breath at rest Airway is patent Respiratory effort is even, unlabored, Respiratory pattern is regular, symmetrical. GI: Abdomen is round non-distended, Bowel sounds present X 4 quads. Abd is soft and non tender X 4 quads. : No signs and/or symptoms were reported regarding the genitourinary system. EENT: No deficits noted. No signs and/or symptoms were reported regarding the EENT system. Derm: Skin is fragile, is thin, Skin is dry, Skin is pale, Skin temperature is cool. Musculoskeletal: Range of motion: intact in all extremities. 18:03 Reassessment: No changes from previously documented assessment. Patient and/or family mb9 updated on plan of care and expected duration. Pain level reassessed. Patient is alert, oriented x 3, equal unlabored respirations, skin warm/dry/pink. Vital Signs: 15:17 BP 172 / 63; Pulse 64; Resp 18; Temp 98.4(O); Pulse Ox 97% ; Weight 99.79 kg; Height 5 db ft. 2 in. ; 16:40 BP 157 / 79; Pulse 69; Resp 18; Pulse Ox 96% on R/A; mb9 18:03 BP 162 / 75; Pulse 78; Resp 18; Pulse Ox 100% on R/A; mb9 15:17 Body Mass Index 40.24 (99.79 kg, 157.48 cm) db ED Course: 15:13 Patient arrived in ED. mg5 15:14 Rudi Wray MD is Attending Physician. rt 15:18 Triage completed. db 15:18 Arm band placed on Patient placed in waiting room. db 15:36 Carolyn Evans, RN is Primary Nurse. mb9 15:38 Placed in gown. Bed in low position. Call light in reach. Side rails up X 1. Provided tali Education on: press call light if needing anything. Client placed on continuous cardiac and pulse oximetry monitoring. NIBP monitoring applied. clinical research monitor on. 15:54 Door closed. Noise minimized. Warm blanket given. Pillow given. mb9 15:54 Initial lab(s) drawn, by me, sent to lab. EKG done, by ED staff, reviewed by Rudi Wray MD. Inserted saline lock: 20 gauge in left antecubital area, using aseptic technique. Blood collected. Flushed with 10 mL NS. 15:54 No provider procedures requiring assistance completed. mb9 16:00 XRAY Chest (1 view) In Process Unspecified. EDMS 16:00 Assisted to bathroom. mb9 16:48 transfer initiated with [facility] Malu Escobar, states she will call Dr. Colbert and call us iw back. 17:51 Patient transferred, IV remains in place. mb9 17:55 Oscar with [facility] given ETA of 30 minutes. bc6 Administered Medications: No medications were administered Medication: 15:54 VIS not applicable for this client. mb9 Outcome: 16:33 ER care complete, transfer ordered by . rt 17:51 Transferred by ground EMS Transfer form completed. X-rays sent w/ patient. mb9 17:51 Condition: stable 17:51 Instructed on the need for transfer, 18:38 Patient left the ED. bp Signatures: Dispatcher [employer] EDMS Sherice Tracy RN RN iw Peltier, Brian, RN RN bp Glo Hilliard, KARIE TIWARI db Carolyn Evans, RN RN Rudi Romero MD MD rt Lucy Mccain bc6 Senait Suarez mg5
[2024-06-25 18:49] VITALS: TEMP 98.4
[2024-06-25 19:01] VITALS: BP 162/75; O2SAT 100
--- NOTE | 2024-06-26 12:09 | EKG ---
Test Date: 2024-06-25 Test Time: 15:44:02 [employer]: MB MEASUREMENT RESULTS: Intervals: Rate: 59 HI: 202 QRSD: 72 QT: 370 QTc: 366 [place]: P: 67 HI: 202 QRS: 41 T: 57 INTERPRETIVE STATEMENTS: Sinus bradycardia with sinus arrhythmia Low voltage QRS Cannot rule out Anterior infarct, age undetermined Abnormal ECG Compared to ECG 03/07/2023 08:35:59 Myocardial infarct finding now present Sinus rhythm no longer present First degree AV block no longer present T-wave abnormality no longer present Electronically Signed On 06-26-24 12:06:33 CDT by Emigdio Goodman
== END 2024-06-25 18:38 | disposition short-term general hospital (02) ==
LOC: ER 15:11
DX: I31.39 Other pericardial effusion (noninflammatory) (principal); Z95.818 Presence of other cardiac implants and grafts
CPT/HCPCS: 36415; 71045; 80048; 80076; 83735; 83880; 84484; 85025; 85610; 85730; 93005; 99285

== ENCOUNTER 2025-06-01 10:57 | Emergency (ER) | payer OTHER, MEDICARE ==
--- NOTE | 2025-06-01 11:36 | RAD REPORT ---
EXAMINATION: Shoulder Right 2+ Views VIEWS: Two views CLINICAL INDICATION: Female, 84 years old. PAIN RIGHT COMPARISON: None IMPRESSION: Comminuted and displaced right proximal humerus fracture. The humeral head remains located. The fract ure involves the surgical neck which is displaced anteriorly with foreshortening. The fracture is likely multipart. Likely prior distal clavicular resection
--- NOTE | 2025-06-01 11:38 | RAD REPORT ---
EXAM: Chest Single View HISTORY: 84 years Female PAIN COMPARISON: 11/07/2024. FINDINGS: LUNGS/PLEURA: Diffuse prominence of the pulmonary interstitium. CARDIAC/MEDIASTINUM: Moderate cardiomegaly. UPPER ABDOMEN: No significant abnormality. BONES: Acute right proximal humerus fracture. LINES/TUBES/OTHER: N/A IMPRESSION: Pulmonary edema present.
[2025-06-01] MEDS ORDERED: FENTANYL CITR 100 MCG/2 ML ONE (11:41)
[2025-06-01] MEDS ORDERED: ONDANSETRON 4 MG/2 ML VIAL ONE (12:01)
[2025-06-01] MEDS ORDERED: MORPHINE 4 MG/ML SYR ONE (12:02)
--- NOTE | 2025-06-01 12:29 | RAD REPORT ---
EXAMINATION: Head C Spine Mpr Wo Con CLINICAL INDICATION: Female, 84 years old. PAIN TECHNIQUE: Axial CT images from the skull base to the vertex without intravenous contrast. Axial CT i mages through the cervical spine were obtained without intravenous contrast. Sagittal and coronal reformatted images were created from the data set. Coronal and sagittal reformatted images were creat ed from the data set. One or more of the following dose reduction techniques were used: Automated exposure control, adjustment of the mA and/or kV according to patient size, and/or iterative reconstr uction. Unless otherwise specified, incidental findings do not require dedicated imaging follow-up. [id number]. COMPARISON: 09/07/2021 FINDINGS: Head: INTRACRANIAL: No acute intracranial hemorrhage. Remote left MCA territory infarct. No hydrocephalus. No mass effect or midline shift. No significant white matter disease. VASCULATURE: No visualized abnormalities in the arteries or dural venous sinuses. SCALP/SKULL: No calvarial fracture identified. No acute soft tissue abnormality. SINUSES: The visualized paranasal sinuses are mostly clear. No significant mastoid fluid. Cervical spine: ALIGNMENT: The cervical spine has normal alignment without scoliosis or spondylolisthesis. BONE: Vertebral body heights are maintained. No aggressive osseous lesions. DEGENERATIVE: Multilevel cervical spondylosis with evidence of bilateral neural foraminal narrowing. No high grade central spinal stenosis. SOFT TISSUE: No significant abnormalities in the soft tissue of the neck. The visualized lung apices are clear. IMPRESSION: No acute intracranial abnormality. No acute fracture or traumatic malalignment of the cervical spine.
--- NOTE | 2025-06-01 13:19 | ER ---
Nurse's Notes [facility] Name: Kristal You Age: 84 yrs Sex: Female : 1940 Arrival Date: 06/01/2025 Time: 10:57 Bed 5 Private MD: Diagnosis: Fracture of upper end of humerus;Fall on same level, unspecified;Unspecified injury of head, initial encounter Presentation: 06/01 11:03 Chief complaint: EMS states: toned out for fall. Reports she was feeling weak this me1 morning and was going to get her walker when she lost her balance and fell. C/o pain to right upper arm. Bruise and swelling noted to right forehead. Reports pain to right arm is 8/10. 20g LFA established, administered: NS 200ml, zofran 4 mg, fentanyl 75mcg. Coronavirus screen: Vaccine status: Patient reports receiving the 2nd dose of the covid vaccine. Ebola Screen: No symptoms or risks identified at this time. Initial Sepsis Screen: Does the patient meet any 2 criteria? No. Patient's initial sepsis screen is negative. Does the patient have a suspected source of infection? No. Patient's initial sepsis screen is negative. Risk Assessment: Do you want to hurt yourself or someone else? Patient reports no desire to harm self or others. Onset of symptoms was June 01, 2025. 11:03 Method Of Arrival: EMS: [facility] [place] 11:03 Acuity: LUCINA 3 me1 Triage Assessment: 11:06 General: Appears uncomfortable, obese, well groomed, well developed, Behavior is me1 cooperative, appropriate for age, anxious. Pain: Complains of pain in head and right arm Pain does not radiate. Pain currently is 8 out of 10 on a pain scale. Quality of pain is described as sharp, shooting, Pain began suddenly, Is continuous. EENT: No signs and/or symptoms were reported regarding the EENT system. Neuro: Level of Consciousness is awake, alert, obeys commands, Oriented to person, place, time, situation, Appropriate for age Reports did hit her head. No LOC. Takes eliquis. Cardiovascular: Patient's skin is warm and dry. Respiratory: Airway is patent Respiratory effort is even, unlabored, Respiratory pattern is regular, symmetrical. GI: No signs and/or symptoms were reported involving the gastrointestinal system. : No signs and/or symptoms were reported regarding the genitourinary system. Derm: Skin is fragile, is thin, Skin is normal, Bruising that is dark purple, on forehead. Musculoskeletal: Reports pain in right arm. Injury Description: s/p ground level fall. Historical: - Allergies: 11:06 LETY INHIBITORS; me1 11:06 Nembutal Sodium; me1 - PMHx: 11:06 Asthma; Atrial Fib; Chronic obstructive lung disease; Congestive heart failure; CVA; me1 Hypercholesterolemia; Hypertension; Hypothyroidism; Myocardial infarction; neuropathy; UTI; 11:06 Right carotid blockage (Unknown); me1 - PSHx: 11:06 ablation; cardiac stent; Cholecystectomy; me1 - Immunization history:: Adult Immunizations up to date. - Infectious Disease History:: Denies. - Social history:: Smoking status: Patient/guardian denies using tobacco, but has a distant history of tobacco abuse. Screenin:09 [facility] ED Fall Risk Assessment (Adult) History of falling in the last 3 months, me1 including since admission Yes- single mechanical fall (1 pt) Confusion or Disorientation No (0 pts) Intoxicated or Sedated No (0 pts) Impaired Gait Yes (1 pt) Mobility Assist Device Used Yes (1 pt) Altered Elimination No (0 pt) Score/Fall Risk Level 0 - 2 = Low Risk Maintained a safe environment, Provided non-skid footwear, Hourly rounding (assess needs \T\ fall precautionary measures) done. Abuse screen: Denies threats or abuse. Nutritional screening: No deficits noted. Tuberculosis screening: No symptoms or risk factors identified. Assessment: 11:09 General: See triage assessment. me1 13:50 General: Discharge delayed for family to go get a vehicle the patient can get into.. me1 Vital Signs: 11:03 BP 124 / 86; Pulse 68; Resp 13; Temp 98.3; Pulse Ox 95% ; Weight 101.15 kg; Height 5 me1 ft. 2 in. ; Pain 8/10; 11:29 BP 153 / 69; Pulse 67; Resp 17; Pulse Ox 96% on R/A; me1 12:05 BP 161 / 84; Pulse 68; Resp 17; Pulse Ox 97% ; me1 13:00 BP 174 / 94; Pulse 95; Resp 16; Pulse Ox 99% on R/A; cf3 13:23 BP 159 / 78; Pulse 93; Resp 16; Pulse Ox 93% ; me1 13:50 BP 159 / 92; Pulse 89; Resp 18; Pulse Ox 96% ; me1 11:03 Body Mass Index 40.79 (101.15 kg, 157.48 cm) me1 11:03 Pain Scale: Adult de1 ED Course: 11:02 Patient arrived in ED. me1 11:02 Ena Tracy MD is Attending Physician. sw6 11:06 Triage completed. me1 11:06 Arm band placed on Patient placed in an exam room. me1 11:09 Patient has correct armband on for positive identification. Bed in low position. Call me1 light in reach. Side rails up X2. Provided Education on: POC. Verbalized understanding. . Client placed on continuous cardiac and pulse oximetry monitoring. NIBP monitoring applied. principal examiner on. Pulse ox on. NIBP on. 11:09 No provider procedures requiring assistance completed. Maintain EMS IV. Dressing me1 intact. Good blood return noted. Site clean \T\ dry. Gauge \T\ site: 20g LFA. Flushed with 10 mL NS. 11:21 Shoulder Right 2+ Views In Process Unspecified. EDMS 11:23 CXR XRAY In Process Unspecified. EDMS 12:20 CT Head C Spine In Process Unspecified. EDMS 13:15 Rishi Vital, RN is Primary Nurse. cf3 13:17 Tray Diallo MD is Referral Physician. 6 14:20 IV discontinued, intact, bleeding controlled, No redness/swelling at site. Pressure me1 dressing applied. Administered Medications: 11:46 Drug: fentaNYL (PF) IVP 50 mcg IVP once Route: IVP; Site: left forearm; me1 12:06 Follow up: Response: No adverse reaction; Pain is unchanged, physician notified me1 12:06 Drug: morphine IVP or IV 4 mg IVP once over 4 mins Route: IVP; Infused Over: 4 mins; de1 Site: left forearm; 13:24 Follow up: Response: No adverse reaction; Pain is decreased me1 12:06 Drug: Ondansetron IVP 4 mg IVP once; over 2 minutes Route: IVP; Site: left forearm; me1 13:24 Follow up: Response: No adverse reaction; Nausea is decreased me1 13:27 CANCELLED (Duplicate Order): tetanus-diphtheria toxoidadult 0.5 ml IM once; Provide cf3 Vaccine Information Statement (VIS). 13:32 Drug: Hydrocodone-Acetaminophen PO (7.5 mg-325 mg) 1 tabs PO once Route: PO; cf3 14:21 Follow up: Response: No adverse reaction; Pain is decreased me1 13:32 Drug: Boostrix Tdap IM 0.5 ml IM once; as a single dose Route: IM; Site: left deltoid; cf3 14:21 Follow up: Response: (VIS) Vaccine information sheet provided today. Questions and/or me1 concerns addressed. VIS edition date: May 28, 2021.; No adverse reaction Medication: 11:09 VIS not applicable for this client. me1 Outcome: 13:18 Discharge ordered by . aydee 14:20 Discharged to home via wheelchair, with family, me1 14:20 Condition: stable 14:20 Discharge instructions given to patient, family, Instructed on discharge instructions, follow up and referral plans. medication usage, Demonstrated understanding of instructions, follow-up care, medications, Prescriptions given X 1, 14:20 Patient left the ED. me1 Signatures: Dispatcher [employer] EDMS Yvonne Gomez RN RN me1 Ena Tracy MD MD 6 Rishi Vital, KARIE RN cf3 Corrections: (The following items were deleted from the chart) 11:06 11:06 PMHx: Right carotid blockage (UTI); me1 me1
--- NOTE | 2025-06-01 13:19 | EDPHYS ---
Physician Documentation [facility] Name: Kristal You Age: 84 yrs Sex: Female : 1940 Arrival Date: 06/01/2025 Time: 10:57 Bed 5 Private MD: ED Physician Ena Tracy HPI: 06/01 11:04 This 84 yrs old Female presents to ER via Unassigned with complaints of Fall sw6 Injury. 11:04 Details of fall: The patient fell from an upright position, while standing. Onset: The sw6 symptoms/episode began/occurred just prior to arrival. Associated injuries: The patient sustained painful injury. Severity of symptoms: At their worst the symptoms were severe, in the emergency department the symptoms are unchanged. The patient has not experienced similar symptoms in the past. The patient presents from home with EMS for evaluation after mechanical trip and fall that occurred just prior to arrival. She reports she was using her walker and felt the walker go to its side causing her to fall to her side as well. She landed on her right side. She is unsure if she hit her head. She denies any loss of conscious. She does take Eliquis for history of atrial fibrillation. She does not think she passed out. She was unable to get herself back up due to pain and therefore used her life alert bracelet to call for help. She was given 75 mcg of fentanyl as well as 4 mg of Zofran by EMS prior to arrival as well as had her right arm placed in a sling. She is complaining of pain to her right humerus and shoulder. No headache or neck pain. No chest pain. No shortness of breath. No cough or congestion. Here for evaluation.. Historical: - Allergies: 11:06 LETY INHIBITORS; me1 11:06 Nembutal Sodium; me1 - PMHx: 11:06 Asthma; Atrial Fib; Chronic obstructive lung disease; Congestive heart failure; CVA; me1 Hypercholesterolemia; Hypertension; Hypothyroidism; Myocardial infarction; neuropathy; UTI; 11:06 Right carotid blockage (Unknown); me1 - PSHx: 11:06 ablation; cardiac stent; Cholecystectomy; me1 - Immunization history:: Adult Immunizations up to date. - Infectious Disease History:: Denies. - Social history:: Smoking status: Patient/guardian denies using tobacco, but has a distant history of tobacco abuse. ROS: 11:04 Constitutional: Negative for fever, chills, and weight loss, Cardiovascular: Negative sw6 for chest pain, palpitations, and edema, Respiratory: Negative for shortness of breath, cough, wheezing, and pleuritic chest pain, Abdomen/GI: Negative for abdominal pain, nausea, vomiting, diarrhea, and constipation, 11:04 MS/extremity: Positive for pain, 11:04 All other systems are negative, Exam: 11:04 Constitutional: This is a well developed, well nourished patient who is awake, alert, sw6 and in no acute distress. Chest/axilla: Normal chest wall appearance and motion. Nontender with no deformity. No lesions are appreciated. Respiratory: Lungs have equal breath sounds bilaterally, clear to auscultation and percussion. No rales, rhonchi or wheezes noted. No increased work of breathing, no retractions or nasal flaring. 11:04 Neck: Trachea midline, no thyromegaly or masses palpated, and no cervical lymphadenopathy. Supple, full range of motion without nuchal rigidity, or vertebral point tenderness. No Meningismus. 11:04 Abdomen/GI: Soft, non-tender, with normal bowel sounds. No distension or tympany. No guarding or rebound. No evidence of tenderness throughout. Skin: Warm, dry with normal turgor. Normal color with no rashes, no lesions, and no evidence of cellulitis. 11:04 Constitutional: The patient appears obese, 11:04 Cardiovascular: Rate: normal, Rhythm: irregularly irregular, 11:04 Musculoskeletal/extremity: No vertebral body tenderness to her cervical spine. She has pain to her right upper humerus but no obvious deformity is noted. Decreased range of motion of her right shoulder due to pain. +2 radial pulses bilaterally. +2 dorsalis pedis pulses bilaterally. Her pelvis is stable and nontender.. 13:18 Skin: Abrasions to the right upper forehead. sw6 Vital Signs: 11:03 BP 124 / 86; Pulse 68; Resp 13; Temp 98.3; Pulse Ox 95% ; Weight 101.15 kg; Height 5 me1 ft. 2 in. ; Pain 8/10; 11:29 BP 153 / 69; Pulse 67; Resp 17; Pulse Ox 96% on R/A; me1 12:05 BP 161 / 84; Pulse 68; Resp 17; Pulse Ox 97% ; me1 13:00 BP 174 / 94; Pulse 95; Resp 16; Pulse Ox 99% on R/A; cf3 13:23 BP 159 / 78; Pulse 93; Resp 16; Pulse Ox 93% ; me1 13:50 BP 159 / 92; Pulse 89; Resp 18; Pulse Ox 96% ; me1 11:03 Body Mass Index 40.79 (101.15 kg, 157.48 cm) me1 11:03 Pain Scale: Adult me1 MDM: 11:03 Medical Screening Exam initiated 11:04 Differential diagnosis: abrasion, closed head injury, contusion, fracture, sprain, 6 strain. Data reviewed: vital signs, nurses notes, EMS record. 13:15 Data reviewed: radiologic studies, CT scan, plain films. ED course: The patient is [facility] doing well hernia. The CT of her head and cervical spine showed no acute traumatic injuries. The x-ray of her chest does show some pulmonary edema however the patient denies any shortness of breath or cough and has good oxygen saturations without requiring supplemental oxygen. The x-ray of her right shoulder does show a humeral neck fracture. She was given a shoulder sling to wear here in the ER for comfort. She will need to follow-up with orthopedics as an outpatient. She remained stable here in the ER and is okay for discharge home with PCP follow-up in 1 week.. 06/01 11:03 Order name: CT Head C Spine; Complete Time: 13:08 [facility] 06/01 13:09 Interpretation: No acute disease. [facility] 06/01 11:03 Order name: CXR XRAY; Complete Time: 13:08 [facility] 06/01 13:09 Interpretation: No acute disease except: Pulmonary edema. [facility] 06/01 11:21 Order name: Shoulder Right 2+ Views; Complete Time: 11:38 EDMS 06/01 11:31 Interpretation: Abnormal: Humerus fracture. Administered Medications: 11:46 Drug: fentaNYL (PF) IVP 50 mcg IVP once Route: IVP; Site: left forearm; me1 12:06 Follow up: Response: No adverse reaction; Pain is unchanged, physician notified me1 12:06 Drug: morphine IVP or IV 4 mg IVP once over 4 mins Route: IVP; Infused Over: 4 mins; me1 Site: left forearm; 13:24 Follow up: Response: No adverse reaction; Pain is decreased me1 12:06 Drug: Ondansetron IVP 4 mg IVP once; over 2 minutes Route: IVP; Site: left forearm; me1 13:24 Follow up: Response: No adverse reaction; Nausea is decreased me1 13:27 CANCELLED (Duplicate Order): tetanus-diphtheria toxoidadult 0.5 ml IM once; Provide cf3 Vaccine Information Statement (VIS). 13:32 Drug: Hydrocodone-Acetaminophen PO (7.5 mg-325 mg) 1 tabs PO once Route: PO; cf3 14:21 Follow up: Response: No adverse reaction; Pain is decreased me1 13:32 Drug: Boostrix Tdap IM 0.5 ml IM once; as a single dose Route: IM; Site: left deltoid; cf3 14:21 Follow up: Response: (VIS) Vaccine information sheet provided today. Questions and/or me1 concerns addressed. VIS edition date: May 28, 2021.; No adverse reaction Disposition Summary: 06/01/25 13:18 Discharge Ordered Notes: Location: Home sw6 Problem: new sw6 Symptoms: have improved sw6 Condition: Stable sw6 Diagnosis - Fracture of upper end of humerus sw6 - Fall on same level, unspecified sw6 - Unspecified injury of head, initial encounter sw6 Followup: sw6 - With: Tray Diallo MD - When: 2 - 3 days - Reason: Recheck today's complaints Discharge Instructions: - Discharge Summary Sheet sw6 - Head Injury, Adult sw6 - Humerus Fracture Treated With Immobilization, [id number] sw6 Forms: - Medication Reconciliation Form sw6 - Antibiotic Education sw6 - Prescription Opioid Use sw6 - Patient Portal Instructions sw6 - Leadership Thank You Letter sw6 Prescriptions: - Hydrocodone-Acetaminophen 7.5-325 mg Oral Tablet - take 1 tablet ORAL route every 6 hours As needed; 12 tablet; Refills: 0, sw6 Product Selection Permitted Signatures: Dispatcher [employer] EDYvonne Frey RN RN me1 Ena Tracy MD MD sw6 Rishi Vital RN RN cf3 Corrections: (The following items were deleted from the chart) 11:04 11:04 Chest Single View+RAD.RAD.BRZ ordered. EDMS EDMS 11:06 11:06 PMHx: Right carotid blockage (UTI); me1 me1 11:21 11:04 Humerus Right+RAD.RAD.BRZ ordered. EDMS EDMS 13:27 13:19 Tetanus-Diphtheria Toxoid IM Adult 0.5 ml IM once; Provide Vaccine Information cf3 Statement (VIS). ordered. sw6
[2025-06-01] MEDS ORDERED: HYDROCODONE/APAP 7.5/325 MG TAB ONE (13:24)
[2025-06-01] MEDS ORDERED: TDAP (DIPHTH,PERTUSS(ACELL),TET VAC) 0.5 ML VIAL IMVAC ONE (13:25)
[2025-06-01 14:25] VITALS: TEMP 98.3
[2025-06-01 14:31] VITALS: BP 159/92; O2SAT 96
== END 2025-06-01 14:20 | disposition home or self-care (01) ==
LOC: SUPCPDRO 10:57 → ER 10:57
DX: S42.201A Unspecified fracture of upper end of right humerus, initial encounter for closed fracture (principal); S09.90XA Unspecified injury of head, initial encounter; W18.30XA Fall on same level, unspecified, initial encounter; Z23 Encounter for immunization; Z95.818 Presence of other cardiac implants and grafts
CPT/HCPCS: 70450; 72125; 71045; 73030; 90715; 96375; 96372; 96374; 99285; J3010; J2405

== ENCOUNTER 2025-06-25 13:29 | Inpatient (IN) | payer OTHER, MEDICARE ==
[2025-06-26] MEDS ORDERED: MAGNESIUM HYDROXIDE 8% 30 ML PO PRN (10:54)
[2025-06-26 11:02] VITALS: BMI 43.3
[2025-06-26] MEDS: HYDROCODONE/APAP 10/325 TAB PO PRN (11:21)
[2025-06-26] MEDS: GABAPENTIN 300 MG CAP PO SCH (14:59)
[2025-06-26] MEDS: ATORVASTATIN 80 MG TAB PO SCH (19:57)
[2025-06-26] MEDS: METOPROLOL TAR 25 MG TAB PO SCH (19:57)
[2025-06-26] MEDS: DOCUSATE NA/SENNA CONC 1 TAB PO SCH (19:58)
[2025-06-26] MEDS ORDERED: Mupirocin NASAL 2 APPL/1 GM TUBE NAS SCH (20:00)
[2025-06-26] MEDS ORDERED: GABAPENTIN 300 MG CAP PO SCH (20:00)
--- NOTE | 2025-06-27 04:12 | HP ---
Date of Admission: 06/26/2025 Time: 1:00 p.m. Chief Complaint: "I am weak and I need to get stronger." History Of Present Illness: Ms. You is an 85-year-old patient with multiple medical problems inc luding coronary artery disease, hypothyroidism, hypertension, moderate persistent asthma, dyslipidemi a, diastolic heart failure, paroxysmal atrial fibrillation, GE reflux, osteoarthritis, who was seen i n the Emergency Department of [facility] on 06/20/2025 with complaints of shortness of breath. Two days prior to that, she had surgical repair of a right humerus fracture done in [place]. She w as with multipart fracture and she was nonweightbearing with the right upper extremity, which is to r emain in a sling following surgery. Her evaluation in the hospital revealed acute renal injury and hypoglycemia, colitis, diverticulitis, anasarca, hyponatremia, hypertension with generalized weakness. She was evaluated by the Nephrology Service, following with Dr. Gurrola with Cardiology Service. She was treated with IV fluids and electrolyte correction and intravenous antibiotics. She was monit ored on telemetry. Her hospital course was complicated by decreased mobility, decreased physical fun ctioning, needing the renal condition to be addressed and improved, which it was and addressing her h emoglobin and hematocrit which was low and elevated blood sugars. Prior to her worsening respiratory function and her right arm fracture, which she had after falling a nd had surgery, she was independent with all activities of daily living, ambulating with a Rollator. She was able to cook, drive, take care of all of her own activities of daily living independently. Currently, she requires maximal assistance for bed mobility, [id number] and only is able ambulate 3 steps with contact guard assistance. Her right arm is in a sling, held across her chest, nonweightb earing and she is right-handed. She has difficulty with expression and comprehension and word-findin g difficulties, which indicate that she could benefit from speech therapy. Of course, she should hav e physical and occupational therapy and she is now a great candidate and admitted to the inpatient re habilitation unit for such therapy to reduce the risk of rehospitalization and help her to reintegrat e back to her prior level of functioning. Past Medical History: As noted above. Past Surgical History: Cholecystectomy, appendectomy, rectocele repair, hysterectomy, bladder suspen venessa, shoulder surgery, carpal tunnel surgery, and knee surgery. Allergies: LETY INHIBITORS, PENTOBARBITAL. Medications: Tylenol Extra Strength 500 mg every 4 hours, Maalox 30 mg every 6 hours, albuterol nebu lizer 2.5 mg every 6 hours, Lipitor 80 mg at bedtime, vitamin D 2000 units daily, Plavix 75 mg daily, Lovenox 30 mg subcutaneously daily, folic acid 1 mg daily, gabapentin 300 mg 3 times daily, Dixon 7. 5/325 every 6 hours as needed, Levaquin 250 mg daily, Synthroid 0.1 mg daily, lidocaine patch applied to the right shoulder daily, Cytomel 10 mcg daily, milk of magnesia 30 mL daily as needed, Lopressor 25 mg twice daily, Flagyl 500 mg 3 times daily, Singulair 10 mg daily, Protonix 40 mg daily, Senokot 2 tablets at bedtime, and Ambien 5 mg at bedtime. Laboratory Studies: Her white blood cell count 7.3, hemoglobin 8.2, hematocrit 33.9, and platelets 1 71. Potassium 4.2, glucose 54, BUN 18, creatinine 0.91, calcium 8.5, and magnesium 2.4. Sodium 138. X-ray/imaging: Chest thorax CT angiogram on 06/20 shows no evidence of acute pulmonary embolus. No focal consolidation. Bilaterally dependent reticular opacities, likely atelectasis. Chest x-ray on 06/21, mild CHF versus volume overload pattern. CT of the abdomen and pelvis on 06/22, no acute abno rmalities. Chest CT repeated 06/24, improved lung volume. No consolidation or airspace disease. No definite edema. Family History: Noncontributory. Social History: No alcohol, tobacco, or drug use. The patient was fully independent and living in a single family home. Prior Level Of Functioning: At current level, she is for eating supervision, upper body dressing, se tup assistance bathing, maximal assistance. Upper body dressing, moderate assistance and lower body dressing as well. Donning and doffing footwear, moderate assistance. Toileting, moderate assistance . Maximal assistance for transfers from bed, chair, wheelchair, and toilet transfer. Ambulation, 3 feet with contact guard assistance. Physical Examination: Vital Signs: Blood pressure 118/64, pulse up to 100, respiratory rate 18, temperature 96.0, oxygen s aturation 98%. Weight is 236 pounds, height 5 feet 2 and BMI is 43. General: She is sitting in a chair with the right arm in a sling and cross the chest. She was able to squeeze in her fingers, make a fist and open her fingers and again the right arm is nonweightbeari ng in a sling. She does not have any significant edema in the right hand. She is otherwise normocep halic, atraumatic. She does report some pain in the sacral area. She did fall on that area when she fell and has some mild pain there. There was prior imaging done showing no fractures there. Otherw ise, she is atraumatic. Sclerae anicteric. Oropharynx moist and no significant edema in her extremi ties. In terms of her examination for neurological focal deficits, no obvious cranial deficits and again re stricted movement on the right arm, but diffuse weakness in the upper and lower extremities around 4/ 5. Rehab And Medical Assessment And Plan: Ms. You is an 85-year-old patient admitted to the [facility] rehabilitation unit with impairment category 20, miscellaneous. Impairment group code is 16, ulises stanley. The etiologic diagnosis acute kidney injury. She has comorbidities of decreased mobility, dec reased physical functioning, hypothyroidism, coronary artery disease, hypertension, renal insufficien cy of course. She is GE reflux, paroxysmal atrial fibrillation, osteoarthritis. Plan will be to con tinue with physical, occupational, and speech therapy since she has some cognitive issues. She will have comorbid conditions addressed and managed by Dr. Gurrola. Medications have been noted and comorbid condition also noted. She will have fall precautions at all times. She will have a nonweightbearin g status of the right upper extremity. Surgeons in [place] will be contacted to determine if there a re any other precautions to be taken to the right arm and how it will be managed and that she is doin g therapy. Comorbidities That Are Impacting Rehabilitation: As noted, she has had renal injury. She is at risk for additional renal injury, so hydration will be imported. Risk of also pneumonia is present, asp iration. Incentive spirometry was encouraged. DVT risk, she has Lovenox for pain is present and she will have decreasing the narcotic. She actually came in on of Dixon. She will be given some while her gabapentin will be increased to 3 times daily from twice daily, at 300 mg. Rehab Specific Plan: Ms. You will have physical, occupational, and speech therapy 3.5 hours, 5 o f 7 days to improve her ability to transfer from a bed to a chair, to wheelchair, to a walker, to mob ilize to around the unit to go on and off the toilet, in and out of shower, to dress upper and lower body, donning and doffing footwear. Also, she will be working with occupational therapy, improve her activities of daily living, to return towards her prior level. Speech will help with cognitive func tioning, safety awareness and decision making, communication as well. Ms. You has a good understanding of the process of admission to the inpatient rehabilitation unit and how she will benefit from physical, occupational, and speech therapy. She will have 24 hours a day, 7 days a week skilled rehabilitation nursing, daily physician evaluation and management, and [facility] evaluation and management for discharge planning, home equipment, and to continue therap y after discharge. Dr. Gurrola will be following her while in the hospital. Barriers To Discharge: Given the patient's nonweightbearing of right dominant hand, she will like to learn how to use the left arm for activities such as weightbearing, mobilizing, lifting and doing fi ne activity, and she will also have to work on her balance coordination and gait without the use of t he right arm to cover balance and she will be therefore at a high risk of falling, so she may have to have an extended stay to be able to return towards her baseline. Length Of Stay: About 12 days. Disposition: Expected to be home with family's help and continue therapy via Home Health. Prognosis: Good. Code Status: Full code. Rehab Specific Goals: 1. Become independent as much as possible on whole body, donning and doffing footwear. 2. Independently mobilize a wheelchair 250 feet max and independently ambulate 250 feet with a nancy g walker. 3. Independently go up and down 10 steps with a left-sided hand rail. 4. Independently perform cognitive functioning and safety awareness issues. The above goals were reviewed with Ms. You and she is in agreement. By signing this document, I acknowledge I personally performed a full physical examination on Ms. Jad nson no later than 24 hours after her admission to the inpatient rehabilitation unit and determine sh e is able to tolerate the above course of treatment at an intensive level for a reasonable period of time. A detailed individualized plan of care for her will be completed by hospital day 4 based on th e preadmission screen, history and physical, and therapy evaluations. ABRAHAM Voice ID: [id number]
[2025-06-27] MEDS: HYDROCODONE/APAP 7.5/325 MG TAB PO PRN (04:38)
[2025-06-27 05:12] LABS: Absolute Lymphocytes (CBC) 0.8 K/uL (0.7-4.9); Hematocrit 27.6 % (36.0-45.0); Hemoglobin 9.1 g/dL (12.0-15.0); MCH 29.9 pg (27.0-35.0); MCHC 33.2 g/dL (32.0-36.0); MCV 90.0 fL (80-100); MPV 7.5 fL (7.6-11.3); Nucleated RBC Absolute Count 0.0 (0-0); Nucleated Red Blood Cells % 0.0 % (0-0); RBC Red Blood Cell Count 3.06 M/uL (3.86-4.86); White Blood Count 4.30 thou/uL (4.3-10.9)
[2025-06-27 05:28] LABS: Albumin 2.3 g/dL (3.4-5.0); Anion Gap 7.8 mEq/L (5.0-15.0); BUN Blood Urea Nitrogen 12.0 mg/dL (7-18); Glucose Level 111.0 mg/dL (74-106); Magnesium 2.3 mg/dL (1.6-2.4); Potassium 3.8 mEq/L (3.5-5.1); Prealbumin 12.5 mg/dL (20-40)
[2025-06-27] MEDS: LIOTHYRONINE SOD 5 MCG TAB PO SCH (07:54)
[2025-06-27] MEDS: LEVOTHYROXINE SOD 0.1 MG TAB PO SCH (07:55)
[2025-06-27] MEDS: PANTOPRAZOLE 40MG TABLET PO SCH (07:55)
[2025-06-27] MEDS: MONTELUKAST 10 MG TAB PO SCH (07:57)
[2025-06-27] MEDS: VITAMIN D 1000 UNIT TAB PO SCH (07:57)
[2025-06-27] MEDS: levoFLOXacin 250 MG TAB PO SCH (07:57)
[2025-06-27] MEDS: FOLIC ACID 1 MG TABLET PO SCH (07:57)
[2025-06-27] MEDS: CLOPIDOGREL 75 MG TABLET PO SCH (07:57)
[2025-06-27] MEDS: LIDOCAINE 4% PATCH TOP SCH (07:58)
[2025-06-27] MEDS: ENOXAPARIN 30 MG/0.3 ML SQ SCH (07:58)
[2025-06-27] MEDS ORDERED: levoFLOXacin 500 MG TAB PO SCH (08:00)
[2025-06-27] MEDS ORDERED: LIOTHYRONINE SOD 5 MCG TAB PO SCH (08:00)
[2025-06-27] MEDS ORDERED: levoFLOXacin 250 MG TAB PO SCH ×2 (08:00)
[2025-06-27] MEDS: ONDANSETRON 4 MG (ODT) TAB PO PRN (10:17)
--- NOTE | 2025-06-27 11:56 | PN ---
Date of Progress Note: 06/27/2025 Subjective: The patient was seen this morning for followup. She was on the rehab. Denies any new c omplaints. No chest pain, shortness of breath. No abdominal pain or vomiting, but has had some naus ea this morning, which she did have with in the past. Objective: Vital Signs: Reviewed. HEENT: Unremarkable. Lungs: Clear to auscultation. Heart: Sounds normal. Abdomen: Soft. Bowel sounds normal. No guarding, rigidity, tenderness, distention. Extremities: No leg edema. Laboratory Data: WBC 4.3, hemoglobin 9.1, platelets 202. Sodium 141, potassium 3.8, chloride 111, b icarb 26, BUN 12, creatinine 0.80, glucose 111, albumin 2.3. Impression: 1. Acute diverticulitis. 2. Anemia. 3. Hypertension. 4. Chronic diastolic heart failure. 5. Malnutrition, moderate. Plan: We will continue current medical management. Continue current antibiotic and nausea medicatio n was ordered. We will use it as needed. Physical therapy to be continued under guidance of Dr. Carpenter. YOLY/MODL Voice ID: [id number] Report ID: [id number]
--- NOTE | 2025-06-27 13:22 | P.RH.PN ---
Estimated Length of Stay: 14 Expected Discharge Date: 07/09/25 Discharge Disposition Plan: Home Family Support: Yes [facility] Goal: Mobility, Transfers, Self Care Vital Signs: Last Vital Signs Temp 98.0 F 06/27/25 07:50 Pulse 115 H 06/27/25 07:56 Resp 16 06/27/25 07:50 BP 134/69 06/27/25 07:56 Pulse Ox 96 06/27/25 07:50 Laboratory: Laboratory Last Values WBC 4.30 thou/uL (4.3-10.9) 06/27/25 04:51 RBC 3.06 M/uL (3.86-4.86) L 06/27/25 04:51 Hgb 9.1 g/dL (12.0-15.0) L 06/27/25 04:51 Hct 27.6 % (36.0-45.0) L 06/27/25 04:51 MCV 90.0 fL (80-100) 06/27/25 04:51 MCH 29.9 pg (27.0-35.0) 06/27/25 04:51 MCHC 33.2 g/dL (32.0-36.0) 06/27/25 04:51 RDW 15.2 % (12.1-15.2) 06/27/25 04:51 Plt Count 202 thou/uL (152-406) 06/27/25 04:51 MPV 7.5 fL (7.6-11.3) L 06/27/25 04:51 Neutrophils % 63.4 % (41.7-73.7) 06/27/25 04:51 Lymphocytes % 18.9 % (15.3-44.8) 06/27/25 04:51 Monocytes % 13.2 % (3.3-12.3) H 06/27/25 04:51 Eosinophils % 3.7 % (0-4.4) 06/27/25 04:51 Basophils % 0.8 % (0-1.3) 06/27/25 04:51 Absolute Neutrophils 2.7 K/uL (1.8-8.0) 06/27/25 04:51 Absolute Lymphocytes 0.8 K/uL (0.7-4.9) 06/27/25 04:51 Absolute Monocytes 0.6 K/uL (0.1-1.3) 06/27/25 04:51 Absolute Eosinophils 0.2 K/uL (0-0.5) 06/27/25 04:51 Absolute Basophils 0.0 K/uL (0-0.5) 06/27/25 04:51 Sodium 141 mEq/L (136-145) 06/27/25 04:51 Potassium 3.8 mEq/L (3.5-5.1) 06/27/25 04:51 Chloride 111 mEq/L (98-107) H 06/27/25 04:51 Carbon Dioxide 26 mEq/L (21-32) 06/27/25 04:51 Anion Gap 7.8 mEq/L (5.0-15.0) 06/27/25 04:51 BUN 12 mg/dL (7-18) 06/27/25 04:51 Creatinine 0.80 mg/dL (0.55-1.02) 06/27/25 04:51 Est GFR (CKD-EPI) 72 ml/min (=/>90) L 06/27/25 04:51 Glucose 111 mg/dL (74-106) H 06/27/25 04:51 Calcium 8.7 mg/dL (8.5-10.1) 06/27/25 04:51 Magnesium 2.3 mg/dL (1.6-2.4) 06/27/25 04:51 Albumin 2.3 g/dL (3.4-5.0) L 06/27/25 04:51 Prealbumin 12.5 mg/dL (20-40) L 06/27/25 04:51 Weight: 225 lb 9.6 oz Physician Update: Labs reviewed and are stable. SLUMS 8, BIMS 14. Word finding difficulties since her stroke. Max with bed mobility, min maria m to sit to stand. Mod assist pivot transfers. In parallel bar 7' min assist, RW 6' mod assist. Dependent shower, lower body dressing, foot wear. Good transfers with grab bars, supervision. Summary: Patient's care plan and detention goals have been reviewed and revised as necessary. Please see the Rehabilitation Signature page for all necessary signatures.
[2025-06-27] MEDS: ENSURE MAX PROTEIN 330 ML LIQUID PO SCH (19:41)
[2025-06-27] MEDS ORDERED: ENSURE ENLIVE 237 ML CAN PO SCH (20:00)
[2025-06-27] MEDS: TRAMADOL HCL 50 MG TAB PO SCH (20:51)
[2025-06-28] MEDS: ZOLPIDEM TARTRATE 5 MG TABLET PO PRN (00:41)
[2025-06-28 08:06] LABS: Sqamous Epithelial <5 /HPF (None Seen); Urine Culture Reflex Order NOT NEEDED; Urine Microscopic Reflex YN ORDER UMIC; Urine Yeast (Budding) Trace /HPF (None Seen)
--- NOTE | 2025-06-28 11:38 | PN ---
Date of Progress Note: 06/28/2025 Subjective: The patient was seen this morning for followup. She was lying in bed, not in distress, was complaining of lot of pain in the right wrist area due to arthritis. Had a warm pack there, rachna jean was providing some relief. Objective: Vital Signs: Reviewed. HEENT: Unremarkable. Lungs: Clear to auscultation. Heart: Sounds normal. Abdomen: Soft. Bowel sounds normal. No guarding, rigidity, tenderness, distention. Extremities: No leg edema. Impression: 1. Acute diverticulitis. 2. Hypertension. 3. Osteoarthritis, multiple sites. 4. Hyperlipidemia. Plan: We will go ahead and continue current blood pressure medications. Continue current pain medic ation per order. The patient is willing to try lidocaine patch over the right wrist area. She actua lly has 1 patch over right shoulder area, which she tells me she really does not need to use it over the shoulder site. I did tell the nursing staff not to put the lidocaine patch on shoulder anymore a nd to start putting 1 patch on the right dorsum wrist on a daily basis. We will see her tomorrow for followup. Continue physical therapy under guidance of Dr. Minaya. Continue current antihypertens adrienne medication. YOLY/MODL Voice ID: [id number] Report ID: [id number]
--- NOTE | 2025-06-29 10:58 | PN ---
Date of Progress Note: 06/29/2025 Subjective: The patient was seen this morning for followup. No new complaints or problems reported by patient. Lying in bed, not in any distress. Her right hand pain is better with use of lidocaine patch. Objective: Vital Signs: Reviewed. Temperature 97.6, pulse 87, respiratory rate 17, blood pressure 152/78, oxygen saturation 96%. HEENT: Unremarkable. Lungs: Clear to auscultation. Heart: Sounds normal. Abdomen: Soft. Bowel sounds normal. No guarding, rigidity, tenderness, distention. Extremities: No leg edema. Impression: 1. Acute diverticulitis. 2. Hypertension. 3. Hyperlipidemia. 4. Osteoarthritis, multiple sites. 5. Chronic diastolic heart failure. Plan: We will go ahead and continue current medication. Continue current lidocaine patch, antihyper tensive medication, current antibiotics, and I will see her tomorrow for followup. YOLY/JAMIL Voice ID: [id number] Report ID: [id number]
[2025-06-30] MEDS: DOCUSATE NA/SENNA CONC 1 TAB PO SCH (19:34)
--- NOTE | 2025-06-30 21:24 | RAD REPORT ---
EXAM: XR Abdomen 1 View (KUB) HISTORY: [facility] MAIN to rule out bowel obstruction COMPARISON: None FINDINGS: Single view of the abdomen shows a nonspecific, nonobstructive bowel gas pattern. No suspi cious calcifications are seen. The bones are unremarkable. IMPRESSION: Nonobstructive bowel gas pattern.
--- NOTE | 2025-06-30 21:39 | PN ---
Date of Progress Note: 06/30/2025 Subjective: The patient was seen this morning for followup. She was lying in bed, not in any distre ss. No new complaints or problems reported. Objective: Vital Signs: Reviewed. HEENT: Unremarkable. Lungs: Clear to auscultation. Heart: Sounds normal. Abdomen: Soft. Bowel sounds normal. No guarding, rigidity, tenderness, distention. Extremities: No leg edema. Impression: 1. Acute diverticulitis. 2. Chronic diastolic heart failure. 3. Hypertension. 4. Hyperlipidemia. Plan: Continue current medications. Continue current pain medication per order. Physical therapy t o be continued under guidance of Dr. Minaya and I will see her tomorrow for followup. YOLY/MODL Voice ID: [id number] Report ID: [id number]
--- NOTE | 2025-07-01 01:09 | PN ---
Date of Progress Note: 06/30/2025 Time: 1:10 p.m. Subjective: Ms. You is resting comfortably, has no new complaints or difficulties. Therapy is m billing along. She did report some mild shortness of breath and fatigue that is improving. She is non weightbearing with the right upper extremity where she has fracture. The hand is in a sling across t he chest. Objective: No fevers, chills, nausea, vomiting. Again, mild pain in the right upper extremity and s he is able to make a fist and extend the fingers, but the right arm is nonweightbearing. Physical Examination: Vital Signs: Blood pressure 138/81, pulse 89, respiratory rate 18, temperature 97.1, oxygen saturati on 94%. Weight 225 pounds, height 5 feet 2 inches, BMI 41.3 cm. General: Ms. You is resting in a chair between therapy sessions. HEENT: She is normocephalic, atraumatic. Extremities: Right arm is in a sling across her chest. Otherwise, she has of course class 2 obesity , but no new exam findings. Did have some pain behind the right knee today, but that is with mobiliz ation. Laboratory Studies: No new laboratory studies. X-rays/imaging: No new x-rays or imaging. Progress Made With Physical, Occupational, And Speech Therapy: With physical therapy today, she comp leted multiple iil-wa-fdree transfers with minimum assistance and gprrv-qz-rebys transfers also with minimum assistance. She did ambulate with the parallel bars 73 times with contact guard assistance. Mobilized wheelchair 150 feet twice with standby to contact guard assistance. Contact guard with 70 feet and 100 feet on a wheelchair on multiple surfaces. She did have shortness of breath, used milo -walker 15 feet twice with contact guard assistance. With occupational therapy, maximum assistance f or toilet hygiene after bowel movement. She did refuse the attempt to perform perianal care. She is able to only use the left upper extremity because of the nonweightbearing status of the right ____ fracture. With speech, she was independent in recalling 3 of 3 unrelated items after 10 minutes delay. She needed minimum assistance for problem solving and had 90% accuracy. Convergent naming s kills were done with 100% accuracy and she did word finding skills with 50% accuracy and moderate ass istance. Assessment And Plan: Ms. You is an 85-year-old patient in rehabilitation unit with acutely kidne y injury. She is followed by Dr. Gurrola, her primary care physician. She still has gciw-yf-qicbmhul d ecreased mobility, decreased physical functioning. Right arm is in a sling with fracture and has ris k of deep vein thrombus and stroke. She is on the Levaquin for UTI and managed by Dr. Gurrola. She has Cytomel for thyroid dysfunction, Lopresor for blood pressure management, Flagyl covering her infecti on, Singulair for her allergies, Zofran for nausea, Protonix for GE reflux. She has Ensure Max for p rotein deficiency, zolpidem for insomnia, and tramadol scheduled for pain along with Tylenol and Norc o 7.5/325. She has nebulizer treatment on board as well. Her plan will be to continue with physical , occupational, and speech therapy 3-1/2 hours, 5 of 7 days. Her list of comorbid conditions and med ications have been noted. They are being managed by Dr. Gurrola. She does have more days to work until next week to improve and return home, hopefully with the help of family and continue therapy via [facility]. ENEIDA/JAMIL Voice ID: [id number] Report ID: [id number]
[2025-07-01 05:21] LABS: ALT/SGPT 22.0 U/L (13-56); AST/SGOT 17.0 U/L (15-37); Albumin 2.4 g/dL (3.4-5.0); Albumin/Globulin Ratio 0.8 (1.1-1.8); Alkaline Phosphatase 58.0 U/L (45-117); Bilirubin Indirect, Calculated 0.3 mg/dL (0.2-0.8); Globulin 3.0 g/dL (2.3-3.5)
--- NOTE | 2025-07-01 20:50 | PN ---
Date of Progress Note: 07/01/2025 Subjective: The patient was seen this morning for followup. She was lying in bed. Not in any distr ess. No new complaints or problems reported. Objective: Vital Signs: Reviewed. HEENT: Unremarkable. Lungs: Clear to auscultation. Heart: Sounds normal. Abdomen: Soft. Bowel sounds normal. No guarding, rigidity, tenderness, distention. Extremities: No leg edema. Impression: 1. Acute diverticulitis. 2. Hypertension. 3. Hyperlipidemia. 4. Osteoarthritis, multiple sites. Plan: We will go ahead and discontinue the Levaquin and metronidazole as the patient has taken adequ ate number of days of therapy. Continue physical therapy under guidance of Dr. Minaya. Continue l idocaine patch and other current medications. I will see her tomorrow for followup. YOLY/MODL Voice ID: [id number] Report ID: [id number]
--- NOTE | 2025-07-02 00:35 | PN ---
Date of Progress Note: 07/01/2025 Time Of Service: 1:10 p.m. Subjective: Ms. You is sitting in chair beside bed. She is feeling better in terms of pain, les s pain in the right arm where she had fracture and left shoulder from arthritis and mobilizing her wh eelchair. She has no new complaints. Review of Systems: No fevers, chills, nausea, vomiting. No myalgias, arthralgias, or rash. Mild pain in the right uppe r extremity as noted, which is held across the chest. She is on nonweightbearing status. Physical Examination: Vital Signs: Blood pressure 136/68, pulse 88, respiratory rate 20, temperature 97, oxygen saturation 95%. General: Ms. You again is sitting in chair beside bed. Of course, the patient with BMI of 41. HEENT: She is normocephalic, atraumatic. Sclerae anicteric. Oropharynx moist. Extremities: She does have the right arm across chest. Some weakness of the right lower extremity t hat is chronic and she is working to improve strength of course with therapy. Laboratory Studies: No new laboratory studies except today she did have liver function studies, whic h did show normal AST, ALT, alkaline phosphatase, normal total bilirubin, direct bilirubin. She did have a prealbumin of 2.4 and total serum protein of 5.4. X-ray/imaging: No new x-rays or imaging done. Medications: Her medications have been reviewed and are managed by Dr. Gurrola. They remain unchanged. Progress Made With Physical, Occupational, And Speech Therapy: With physical therapy today, she comp leted multiple yhw-pa-viqcj transfers with contact guard standby assistance. Svukf-oy-actma transfer s also done with contact guard standby assistance. She did ambulate 50 feet twice and 20 feet twice with contact guard assistance requiring short breaks for shortness of breath. Wheelchair mobilize wa s 50 feet 6 times, frequent rest breaks. Blood pressure remained in care range in 140s over 60s to 7 0. Pulse in the 80s to 90s. With occupational therapy, toilet transfer, she was able to stand up wi th supervision, use a walker to ambulate from the bedroom to the toilet with supervision, don and dof f footwear independently and garments of lower body independent without an assistive device. With sp sujata, recalled 4 of 4 unrelated items after 5-minute delay independently. Word finding skills were a t 70% accuracy with moderate to minimum assistance. Also, she did divergent naming tasks with 80% ac curacy and minimum assistance. Problem-solving skills with 90% accuracy and minimum assistance requi red. Assessment And Plan: Ms. You is an 85-year-old patient in rehabilitation unit with acute kidney injury; right elbow fracture, held in a sling. She is making good progress overall with speech. Dec reased mobility, decreased physical functioning in terms of comorbids. Also, pain, constipation. Jeff lamas has hypothyroidism, stroke risk, shortness of breath, dyslipidemia. Plan: She will have physical, occupational, and speech therapy continued 3.5 hours, 5 of 7 days. Jeff lamas will continue with her comorbid medications managed by Dr. Gurrola, her primary care physician. ENEIDA/JAMIL Voice ID: [id number] Report ID: [id number]
[2025-07-02] MEDS: MAGNES/ALUMIN/SIMET 30ML UCUP PO PRN (10:50)
[2025-07-02] MEDS: ENSURE CLEAR 200 ML CAN PO SCH (20:00)
--- NOTE | 2025-07-02 22:10 | PN ---
Date of Progress Note: 07/02/2025 Subjective: The patient was seen this morning for followup. She was feeling lot better. This morni ng, her stomach was feeling a lot better ever since we stopped her antibiotics. No nausea, no vomiti ng. Had a bowel movement yesterday. Objective: Vital Signs: Reviewed. HEENT: Unremarkable. Lungs: Clear to auscultation. Heart: Sounds normal. Abdomen: Soft. Bowel sounds normal. No guarding, rigidity, tenderness, distention. Extremities: No leg edema. Impression: 1. Hypertension. 2. Hyperlipidemia. 3. Coronary artery disease. 4. Osteoarthritis, multiple sites. Plan: Continue current medication. Continue physical therapy under guidance of Dr. Minaya and I w ill see her tomorrow for followup. YOLY/MODL Voice ID: [id number] Report ID: [id number]
--- NOTE | 2025-07-03 00:55 | PN ---
Date of Progress Note: 07/02/2025 Time Of Service: 1:10. Subjective: Ms. You is doing well. She said the pain in the right upper extremity is much damir r. The left shoulder pain is also better, and her right arm is across the chest in a sling. She is squeezing a squeeze ball rough. Objective: No fevers, chills, nausea, vomiting, and pain persisting in the right arm. Physical Examination: Vital Signs: Blood pressure 147/68, pulse 82, respiratory rate 18, temperature 98, oxygen saturation 96%. General: Ms. You is doing well, resting in bed between therapy sessions. HEENT: She appears normocephalic, atraumatic. Sclerae anicteric. Oropharynx pink and moist. Extremities: No significant edema. Cyanosis is trace in the lower extremities. Laboratory Studies: No new laboratory studies today. X-ray/imaging: No new x-rays and imaging. Medications: Her medications have been reviewed and are unchanged. They are managed by estevan Pena primary care physician. Progress Made With Physical, Occupational, And Speech: Today, with physical therapy, she was able to perform transfers from wheelchair to shower and bench, with minimum assistance. Verbal cues require d. Setup assistance required for some ADLs. She did work with 2-pound hand weights to improve her u pper body strength in the left hand. Right upper extremity nonweightbearing. With her speech, able to recall independently 4 of 4 unrelated items after a 7-minute delay. She required minimum assistan ce with convergent naming tasks and did so with 80% accuracy. She did word-finding activity with 80% accuracy and minimum assistance. Assessment And Plan: Ms. You is an 85-year-old patient with acute renal injury, is improving wel l. She has fracture of the right upper extremity, proximal humerus, doing very well. She still has decreased mobility, decreased physical functioning, and some cognitive impairment, but she is making overall progress. Comorbid conditions are managed by Dr. Gurrola, including her pain, hypertension, ris k of deep vein thrombosis and stroke, dyslipidemia, shortness of breath, and she did have gas and blo ating, which was also addressed with simethicone. Her plan is to continue with physical, occupationa l, and speech therapy, 3.5 hours, 5 of 7 days until her discharge next week. LB/MODL Voice ID: [id number] Report ID: [id number]
[2025-07-03 06:09] LABS: Absolute Lymphocytes (CBC) 0.8 K/uL (0.7-4.9); Hematocrit 26.3 % (36.0-45.0); Hemoglobin 8.9 g/dL (12.0-15.0); MCH 30.4 pg (27.0-35.0); MCHC 33.7 g/dL (32.0-36.0); MCV 89.9 fL (80-100); MPV 7.4 fL (7.6-11.3); Nucleated RBC Absolute Count 0.0 (0-0); Nucleated Red Blood Cells % 0.1 % (0-0); RBC Red Blood Cell Count 2.93 M/uL (3.86-4.86); White Blood Count 5.20 thou/uL (4.3-10.9)
[2025-07-03 06:33] LABS: Albumin 2.5 g/dL (3.4-5.0); Anion Gap 5.7 mEq/L (5.0-15.0); BUN Blood Urea Nitrogen 10.0 mg/dL (7-18); Glucose Level 96.0 mg/dL (74-106); Magnesium 2.3 mg/dL (1.6-2.4); Potassium 3.7 mEq/L (3.5-5.1); Prealbumin 12.4 mg/dL (20-40)
--- NOTE | 2025-07-04 00:50 | PN ---
Date of Progress Note: 07/03/2025 Time: 1:10 p.m. Subjective: Ms. You is resting in bed again, better today than yesterday right arm, held across the chest where there is the fracture. She is feeling better about that. In lower extremities, pain is also somewhat better, still had some cramping noted, but is feeling better overall. Objective: No fevers, chills, myalgias, arthralgias. No rash. No psychiatric complaints. No other issues. Physical Examination: Vital Signs: Blood pressure 137/65, pulse 95, respiratory rate 18, temperature 97.8, oxygen saturati on 93%. General: Ms. You again is resting in bed in between therapy sessions. HEENT: She is normocephalic, atraumatic. Sclerae anicteric. Extremities: Right arm in a sling across the chest and she is nonweightbearing on the arm and she palomino s arthritic changes with some pain and palpation in the left shoulder. She did have applied pain pat ches in that region. Laboratory Studies: White blood cell count 5.2, hemoglobin 8.9, platelets 258. Sodium 137, potassiu m 3.7, chloride 106, BUN 10, creatinine 0.8, calcium 8.6, magnesium 2.3, albumin 2.5, prealbumin 12.4 . X-ray/imaging: No new x-rays or imaging. Medications: Her medications have been reviewed and are unchanged. Progress Made With Physical, Occupational, And Speech Therapy: With physical therapy today, she comp leted wheelchair mobilization 300 feet with modified independence. Multiple ant-cj-cxgct transfers a nd cmbpd-kh-aroap transfers done with standby assistance. With occupational therapy, independent wit h zzk-yz-qffxa transfer and she did require minimum to toilet transfers, supervision for toilet hygie ne, minimum for lower body dressing. With her speech, able to recall 5 of 5 unrelated items after 5 minutes independently. She did convergent and divergent naming task with 100% accuracy and minimum a ssistance. Problem solving done with 80% accuracy and minimum assistance. Assessment And Plan: Ms. You is an 85-year-old patient in rehabilitation unit with acute kidney failure, decreased mobility, decreased physical functioning. She is doing very well. Still has some cognitive impairment. She has comorbid conditions which have been noted previously and are managed by Dr. Gurrola including dyslipidemia, neuropathic pain, hypothyroidism, hypertension, and constipation, pain, right humeral fracture with nonweightbearing status. In terms of her plan, continue with phys ical, occupational, and speech therapy 3.5 hours, 5 of 7 days. Continue with comorbid condition medi cations, those have been managed by Dr. Gurrola throughout hospitalization. ENEIDA/JAMIL Voice ID: [id number] Report ID: [id number]
--- NOTE | 2025-07-04 13:29 | P.RH.PN ---
Estimated Length of Stay: 15 Expected Discharge Date: 07/08/25 Discharge Disposition Plan: Home Family Support: Yes [facility]dc Goal: Mobility, Transfers, Self Care Vital Signs: Last Vital Signs Temp 97.5 F 07/04/25 08:00 Pulse 85 07/04/25 08:00 Resp 18 07/04/25 08:00 BP 152/69 H 07/04/25 08:00 Pulse Ox 96 07/04/25 08:00 Laboratory: Laboratory Last Values WBC 5.20 thou/uL (4.3-10.9) 07/03/25 05:50 RBC 2.93 M/uL (3.86-4.86) L 07/03/25 05:50 Hgb 8.9 g/dL (12.0-15.0) L 07/03/25 05:50 Hct 26.3 % (36.0-45.0) L 07/03/25 05:50 MCV 89.9 fL (80-100) 07/03/25 05:50 MCH 30.4 pg (27.0-35.0) 07/03/25 05:50 MCHC 33.7 g/dL (32.0-36.0) 07/03/25 05:50 RDW 16.0 % (12.1-15.2) H 07/03/25 05:50 Plt Count 258 thou/uL (152-406) 07/03/25 05:50 MPV 7.4 fL (7.6-11.3) L 07/03/25 05:50 Neutrophils % 72.0 % (41.7-73.7) 07/03/25 05:50 Lymphocytes % 16.1 % (15.3-44.8) 07/03/25 05:50 Monocytes % 9.1 % (3.3-12.3) 07/03/25 05:50 Eosinophils % 2.2 % (0-4.4) 07/03/25 05:50 Basophils % 0.6 % (0-1.3) 07/03/25 05:50 Absolute Neutrophils 3.7 K/uL (1.8-8.0) 07/03/25 05:50 Absolute Lymphocytes 0.8 K/uL (0.7-4.9) 07/03/25 05:50 Absolute Monocytes 0.5 K/uL (0.1-1.3) 07/03/25 05:50 Absolute Eosinophils 0.1 K/uL (0-0.5) 07/03/25 05:50 Absolute Basophils 0.0 K/uL (0-0.5) 07/03/25 05:50 Sodium 137 mEq/L (136-145) 07/03/25 05:50 Potassium 3.7 mEq/L (3.5-5.1) 07/03/25 05:50 Chloride 106 mEq/L (98-107) 07/03/25 05:50 Carbon Dioxide 29 mEq/L (21-32) 07/03/25 05:50 Anion Gap 5.7 mEq/L (5.0-15.0) 07/03/25 05:50 BUN 10 mg/dL (7-18) 07/03/25 05:50 Creatinine 0.80 mg/dL (0.55-1.02) 07/03/25 05:50 Est GFR (CKD-EPI) 72 ml/min (=/>90) L 07/03/25 05:50 Glucose 96 mg/dL (74-106) 07/03/25 05:50 Calcium 8.6 mg/dL (8.5-10.1) 07/03/25 05:50 Magnesium 2.3 mg/dL (1.6-2.4) 07/03/25 05:50 Total Bilirubin 0.5 mg/dL (0.2-1.0) 07/01/25 04:46 Direct Bilirubin 0.2 mg/dL (0-0.2) 07/01/25 04:46 Indirect Bilirubin 0.3 mg/dL (0.2-0.8) 07/01/25 04:46 AST 17 U/L (15-37) 07/01/25 04:46 ALT 22 U/L (13-56) 07/01/25 04:46 Alkaline Phosphatase 58 U/L (45-117) 07/01/25 04:46 Serum Total Protein 5.4 g/dL (6.4-8.2) L 07/01/25 04:46 Albumin 2.5 g/dL (3.4-5.0) L 07/03/25 05:50 Globulin 3.0 g/dL (2.3-3.5) 07/01/25 04:46 Albumin/Globulin Ratio 0.8 (1.1-1.8) L 07/01/25 04:46 Prealbumin 12.4 mg/dL (20-40) L 07/03/25 05:50 Urine Color Yellow (Yellow) 06/28/25 06:42 Urine Clarity Turbid (Clear) H 06/28/25 06:42 Urine pH 5.0 (5.0-7.0) 06/28/25 06:42 Ur Specific [place] 1.019 (1.005-1.030) 06/28/25 06:42 Glucose (UA)(Auto) Negative (Negative) 06/28/25 06:42 Urine Ketones Negative (Negative) 06/28/25 06:42 Urine Blood Negative (Negative) 06/28/25 06:42 Urine Nitrite Negative (Negative) 06/28/25 06:42 Urine Bilirubin Negative (Negative) 06/28/25 06:42 Urine Urobilinogen Normal (Normal) 06/28/25 06:42 Ur Leukocyte Esterase 250 Carolyn/uL (Negative) H 06/28/25 06:42 Urine RBC <5 /HPF (None Seen) 06/28/25 06:42 Urine WBC 5-10 /HPF (<5) 06/28/25 06:42 Ur Squamous Epith Cells <5 /HPF (None Seen) 06/28/25 06:42 U Non-Squamous Epi Cells <5 /HPF (None Seen) 06/28/25 06:42 Urine Bacteria <20 /HPF (<20) 06/28/25 06:42 Urine Mucus Slight /HPF (None Seen) 06/28/25 06:42 Urine Yeast (Budding) Trace /HPF (None Seen) H 06/28/25 06:42 Urine Culture Reflexed Not needed 06/28/25 06:42 Urine Total Protein Negative (Negative) 06/28/25 06:42 Weight: 225 lb 9.6 oz Wound Present: No Closed Surgical Incision Present: Yes Negative Pressure Wound Therapy Present: No Physician Update: Labs reviewed and are stable. Still has mild bilateral lower extremity edema. She still has sutures in the right arm. BIMS 14, still has word finding difficulties. She needs cueing. Recall 5 pistures. Supervision bed mobility, SBA for transfers. RW 30' with SOB. Only 1 step mod assist. WC 150' x 2 with supervision. With OT, poor motivation for toileting and lower body dressing. Mod assist due to poor motivation. Summary: Patient's care plan and intermodal customer service goals have been reviewed and revised as necessary. Please see the Rehabilitation Signature page for all necessary signatures.
[2025-07-04] MEDS: ALBUTEROL 2.5 MG/3 ML NEB SOL NEB PRN (13:30)
[2025-07-04] MEDS: FUROSEMIDE 20 MG TABLET PO ONE (14:05)
--- NOTE | 2025-07-04 14:56 | RAD REPORT ---
EXAMINATION: ONE VIEW CHEST XR CLINICAL INDICATION: chest pain TECHNIQUE: Frontal chest projection is submitted. Examination is limited by patient positioning and t echnique. COMPARISON: 06/24/2025 FINDINGS: Mild interstitial pulmonary edema suspected. The heart is moderately enlarged in size. No displaced f ractures identified. Right shoulder total arthroplasty. IMPRESSION: Mild CHF versus volume overload.
[2025-07-05] MEDS: FUROSEMIDE 20 MG TABLET PO SCH (07:37)
--- NOTE | 2025-07-05 10:46 | PN ---
Date of Progress Note: 07/04/2025 Subjective: The patient was seen this morning for followup. No new complaints or problems reported by patient. She was sitting in wheelchair. Denied any new complaints. Objective: Vital Signs: Reviewed. HEENT: Unremarkable. Lungs: Clear to auscultation. No wheezing. No rales. Cardiac: Heart sounds normal. Abdomen: Soft. Bowel sounds normal. No guarding, rigidity, tenderness, distention. Extremities: No leg edema. Impression: 1. Hypertension. 2. Hyperlipidemia. 3. Chronic diastolic heart failure. Plan: We will go ahead and continue current medication. Continue physical therapy under guidance of Dr. Minaya. We will see her tomorrow for followup. YOLY/MODL Voice ID: [id number] Report ID: [id number]
--- NOTE | 2025-07-05 10:52 | PN ---
Date of Progress Note: 07/05/2025 Subjective: Patient was seen this morning for followup. She was sitting in wheelchair and reported that she is having some shortness of breath with activity that started yesterday. Denies any chest p ain. No nausea, no vomiting. She is also having some bilateral leg swelling. Objective: Vital Signs: Reviewed. HEENT: Unremarkable. Lungs: Bilateral good equal air entry with presence of bilateral basal rales. Not using any accesso ry muscles of respiration. HEART: Sounds normal. Abdomen: Soft. Bowel sounds normal. No guarding, rigidity, tenderness, distention. Extremities: Bilateral leg edema. Grade 1 pedal edema extending to involve lower 2/3rd of both legs . Impression: 1. Congestive heart failure, chronic, diastolic with acute exacerbation. 2. Hypertension. 3. Hyperlipidemia. Plan: We will go ahead and manage her congestive heart failure problem with diuretic therapy per ord er and we will see how she responds to that. Continue current antihypertensive medication. Physical therapy to be provided under guidance of Dr. Minaya. YOLY/MODL Voice ID: [id number] Report ID: [id number]
[2025-07-06] MEDS: FUROSEMIDE 40 MG TABLET PO SCH (08:18)
[2025-07-06] MEDS: POTASSIUM CL SA 10 MEQ TAB PO SCH (08:18)
--- NOTE | 2025-07-06 08:41 | PN ---
Date of Progress Note: 07/06/2025 Subjective: The patient was seen this morning for followup. She was lying in bed, not in distress. Her shortness of breath is not any better than yesterday, but not any worse either. Objective: Vital Signs: Reviewed. HEENT: Unremarkable. Lungs: Clear to auscultation except minimal basal rales. Not in any respiratory distress. Heart: Sounds normal. Abdomen: Soft. Bowel sounds normal. No guarding, rigidity, tenderness, distention. Extremities: Bilateral leg edema unchanged from yesterday. Impression: 1. Chronic diastolic heart failure, with acute exacerbation. 2. Hypertension. 3. Hyperlipidemia. Plan: We will go ahead and increase the dose of Lasix and change it to 40 mg p.o. daily starting thi s morning and we will add potassium 20 mEq p.o. daily. Continue current antihypertensive medication and I will see her tomorrow for followup. YOLY/MODL Voice ID: [id number] Report ID: [id number]
[2025-07-06] MEDS: ACETAMINOPHEN 500 MG TAB PO PRN (17:43)
[2025-07-07] MEDS: FUROSEMIDE 40 MG TABLET PO SCH (07:28)
[2025-07-07] MEDS: POTASSIUM CL SA 10 MEQ TAB PO SCH (08:41)
[2025-07-07] MEDS: LOSARTAN POTASSIUM 50 MG TABLET PO SCH (08:42)
--- NOTE | 2025-07-07 23:03 | PN ---
Date of Progress Note: 07/07/2025 Time: 1:10 p.m. Subjective: Ms. You is resting in bed. She did have some more shortness of breath. Her chest x -ray, which was done yesterday did show mild increased CHF pattern. Her Lasix was increased from 10 mg a day to 40 mg a day. She is also on potassium replacement and managed by Dr. Gurrola. She also has the zip up RUBA hose in place and still is doing exercises, mobilizing, and is very enthusiastic and motivated to improve her ability to ambulate. She is also using incentive spirometry. Review of Systems: No fevers, chills. No significant myalgias, arthralgias. There is shortness of breath and mild swel ling in the lower extremities, otherwise no significant pain in the right arm where she does have a f racture. Right arm is in a sling across the chest. Physical Examination: Vital Signs: Blood pressure 144/96, pulse 76, respiratory rate 20, temperature 97.5, oxygen saturati on 96%. General: Ms. You is sitting in the chair beside her bed. HEENT: She appears normocephalic, atraumatic. Sclerae anicteric. Oropharynx moist. Extremities: She does have mild edema in the lower extremities and the right arm is across the chest , has good hemostasis at the surgical site at humerus. Laboratory Studies: No new laboratory studies. X-ray/imaging: No new x-rays or imaging. Current Medications: She is on Lasix 40 mg daily, increased from 10 mg daily and has potassium on wilfrido dylan. She has tramadol for pain, Senokot for constipation, Protonix for GE reflux, Zofran for nausea, Singulair for allergy, Lopressor for heart rate control along with Cozaar for blood pressure managem ent, Cytomel for hypothyroidism along with Synthroid. She has gabapentin 300 mg 3 times daily for ne uropathic pain, Lasix again on board, folic acid 1 mg daily for stroke risk reduction, Lovenox 30 mg subcutaneously daily for DVT risk reduction. She has Plavix 75 mg daily, Lipitor 80 mg at bedtime fo r dyslipidemia. Albuterol nebulizer on board, [place] on board as well as regular Tylenol. Progress Made With Physical, Occupational, And Speech Therapy: Today, she was at maximum assistance level for upper body dressing, lower body dressing, toileting, and showering. Independent with toile t and shower transfer. With speech, she did recall details of a picture with 60% accuracy. Word fin ding skills used for concrete categories with 75% accuracy. She did have significant deficits with s ustained attention. Assessment And Plan: Ms. You is an 85-year-old patient with diffuse kidney injury, right arm fra cture. She has mild increase in the . She had a CT checked. She is now on the Lasix and is managing also with zip up RUBA hose in place. She still has decreased mobility, decreased physical function, and multiple comorbid conditions, which have been mentioned. In addition, those medicatio ns are managed by Dr. Gurrola, her primary care physician. The plan will be to continue with physical. occupational, and speech therapy 3.5 hours 5 of 7 hours. Continue with list of medications to addres s her issues. Those have been noted including increased diuretics, potassium replacement on board. Hypothyroidism addressed, dyslipidemia addressed, shortness of breath addressed, pain is addressed. LB/MODL Voice ID: [id number] Report ID: [id number]
[2025-07-08 05:56] LABS: Absolute Lymphocytes (CBC) 0.8 K/uL (0.7-4.9); Hematocrit 26.7 % (36.0-45.0); Hemoglobin 9.0 g/dL (12.0-15.0); MCH 29.8 pg (27.0-35.0); MCHC 33.8 g/dL (32.0-36.0); MCV 88.3 fL (80-100); MPV 7.0 fL (7.6-11.3); Nucleated RBC Absolute Count 0.0 (0-0); Nucleated Red Blood Cells % 0.1 % (0-0); RBC Red Blood Cell Count 3.02 M/uL (3.86-4.86); White Blood Count 3.50 thou/uL (4.3-10.9)
[2025-07-08 06:29] LABS: Albumin 2.6 g/dL (3.4-5.0); Anion Gap 7.8 mEq/L (5.0-15.0); BUN Blood Urea Nitrogen 8.0 mg/dL (7-18); Glucose Level 93.0 mg/dL (74-106); Magnesium 2.1 mg/dL (1.6-2.4); Potassium 3.8 mEq/L (3.5-5.1); Prealbumin 12.0 mg/dL (20-40)
--- NOTE | 2025-07-08 07:44 | RAD REPORT ---
Procedure: Chest Single View HISTORY: Cough COMPARISON: July 04, 2025 FINDINGS: Lungs are clear. No significant pleural effusion noted. The heart is mildly enlarged. IMPRESSION: No acute abnormality is displayed.
--- NOTE | 2025-07-08 20:57 | PN ---
Date of Progress Note: 07/08/2025 Subjective: The patient was seen this morning for followup. No new complaints or problems reported by patient. Overall, she is feeling much better. Her swelling from legs and shortness of breath has improved. Objective: Vital Signs: Reviewed. HEENT: Unremarkable. Lungs: Clear to auscultation. No wheezing. No rales. Heart: Sounds normal. Abdomen: Soft. Bowel sounds normal. No guarding, rigidity, tenderness, distention. Extremities: Bilateral leg edema present, but better than before. Laboratory Data: WBC 3.5, hemoglobin 9, platelets 307. Sodium 138, potassium 3.8, chloride 106, bic arb 28, BUN 8, creatinine 0.81, glucose 93. Magnesium 2.1. Impression: 1. Chronic diastolic heart failure. 2. Hypertension. 3. Hyperlipidemia. Plan: We will continue current medication. Continue current diuretic therapy. Potassium replaceme nt. Continue physical therapy under guidance of Dr. Minaya and I will see her tomorrow for followu shelia FREDERICK/MODL Voice ID: [id number] Report ID: [id number]
--- NOTE | 2025-07-09 03:03 | PN ---
Date of Progress Note: 07/08/2025 Time: 1:10 P.m. Subjective: Ms. You is resting in her room. She is still doing better every day and less shortn ess of breath. She has the zipped up RUBA hose on and she of course did have Lasix and rep eat chest x-ray looks clear of any fluid other than minimal fluid noted on the prior chest x-ray. Objective: No fevers, chills, nausea, vomiting shortness of breath is noted and mild to m oderate edema in the lower extremities. Physical Examination: Vital Signs: Blood pressure 144/80, pulse 130, respiratory rate 18, temperature 98.5, oxygen saturat ion 98%. General: Ms. You again is sitting in a chair. She is doing well. She has no shortness of breat h. She has again the edema noted in the lower extremities. Laboratory Studies: White blood cell count 3.5, hemoglobin 9.0, platelets 307. Sodium 138, potassiu m 3.8, chloride 106, carbon dioxide 28, her BUN is 8, creatinine 0.81, calcium 8.2, magnesium 2.1, al bumin 2.6, prealbumin 12.0. X-ray imaging and chest x-ray done today shows interval improvement in p leural effusion. There is no acute abnormality identified. Progress Made With Physical, Occupational, And Speech Therapy: With physical therapy today, she did ambulate 50 feet 3 times with independence. She did have some shortness of breath and she also did 1 50 feet with shortness of breath. Did become tired. She did 9 steps and 12 steps in terms of stairs and did so independently. Bed mobility done independently. With occupational therapy, she did comp lete several sets of [id number]-wt-yhlkw, working on her lower extremity strength and with wrists and hand a nd upper extremity exercises as well with supervision. With speech, her SLUMS score was 27/30 and he r BIMS score 15/15. She is doing very well with cognitive functional. Assessment: Ms. You is an 85-year-old patient in the rehabilitation unit with acute kidney injur y. She does have a fracture of the right humerus and she had been in sling and nonweightbearing ther e. She is doing very well with that. She has much improvement in decreased mobility and decreased p hysical functioning. She has comorbid conditions of dyslipidemia, stroke risk, neuropathic pain, con stipation, insomnia, GE reflux, hypertension, shortness of breath, and dyslipidemia. Plan: She will have physical, occupational, and speech therapy. Continue with her discharge. She w ill continue with comorbid condition medications. They are managed by Dr. Gurrola and the pain is doing well. Her CHF symptoms have improved. Edema in the lower extremities continue to improve and she w ill be discharged and continue therapy via Home Health. ENEIDA/JAMIL Voice ID: [id number] Report ID: [id number]
[2025-07-09 06:31] VITALS: BP 137/68; TEMP 97.5
--- NOTE | 2025-07-10 05:28 | DS ---
Date of Discharge: 07/09/2025 Disposition: Discharged to go home. Physical Examination: HEENT: Unremarkable. Lungs: Clear to auscultation. Heart: Sounds normal. Abdomen: Soft. Bowel sounds normal. No guarding, rigidity, tenderness, distention. Extremities: Bilateral trace edema, which is much better than how she was few days ago on the rehab. Discharge Medications And Instructions: Continue all prior home medications. Follow up with Dr Gurrola week after next. Follow up with your retail sales specialist as per your appointment. Laboratory Data: On 06/27/2025, CBC showed WBC 4.3, hemoglobin 9.1, platelets 202 and last CBC from yesterday WBC 3.5, hemoglobin 9, platelets 307. For chemistry on 06/27/2025, sodium 141, potassium 3.8, chloride 111, bicarb 26, BUN 12, creatinine 0.80, glucose 111 and last chemistry from yesterday, sodium 138, potassium 3.8, chloride 106, bicarb 28, BUN 8, creatinine 0.81, glucose 93, albumin 2.6. Hospital Course: This is an 85-year-old pleasant female patient, who was initially admitted to medical floor on 06/21/2025 with pain and shortness of breath. After her condition was stabilized, the patient was brought to inpatient rehab, where Dr. Minaya was consulted for therapy and I continue to follow her and manage her for medical problems. While on the rehab, initially the patient was getting antibiotic which was Levaquin and metronidazole for diverticulitis, which was diagnosed during her medical floor admission and we continued this oral antibiotic and after appropriate duration, antibiotics were discontinued. The patient had exacerbation of her chronic diastolic heart failure with shortness of breath and increased leg swelling. This was managed with diuretic therapy and she responded very well. Her sutures from the right shoulder area were removed as per instruction from her retail sales specialist. The patient will follow up with her retail sales specialist next week. Overall, her condition has improved well enough for her to go home today and I will continue to follow up on outpatient basis. Final Diagnoses: 1. Hyponatremia. 2. Chronic diastolic heart failure, with acute exacerbation. 3. Coronary artery disease. 4. Anemia, chronic, unspecified. 5. Hypertension. 6. Hyperlipidemia. 7. Hypothyroidism. 8. Gastroesophageal reflux disease. 9. Moderate persistent asthma. 10. Paroxysmal atrial fibrillation. 11. Status post left atrial occlusion device (Watchman's device). 12. Acute diverticulitis. YOLY/MODL Voice ID: [id number] Report ID: [id number]
== END 2025-07-09 11:00 | disposition home health service (06) | DRG 947 ==
LOC: 5TH 06-26 10:35
PROVIDERS: ADMIT Internal Medicine; ATTEND Internal Medicine
DX: R53.81 Other malaise (principal); I50.33 Acute on chronic diastolic (congestive) heart failure; N17.9 Acute kidney failure, unspecified; K57.92 Diverticulitis of intestine, part unspecified, without perforation or abscess without bleeding; E44.0 Moderate protein-calorie malnutrition; Z68.41 Body mass index [BMI] 40.0-44.9, adult; N39.0 Urinary tract infection, site not specified; E87.1 Hypo-osmolality and hyponatremia; S42.201D Unspecified fracture of upper end of right humerus, subsequent encounter for fracture with routine healing; R53.1 Weakness; R53.83 Other fatigue; G31.84 Mild cognitive impairment of uncertain or unknown etiology; M25.531 Pain in right wrist; I11.0 Hypertensive heart disease with heart failure; M15.9 Polyosteoarthritis, unspecified; I25.10 Atherosclerotic heart disease of native coronary artery without angina pectoris; I48.0 Paroxysmal atrial fibrillation; J45.40 Moderate persistent asthma, uncomplicated; D64.9 Anemia, unspecified; R11.0 Nausea; K59.00 Constipation, unspecified; J30.2 Other seasonal allergic rhinitis; G47.00 Insomnia, unspecified; R14.3 Flatulence; R14.0 Abdominal distension (gaseous); G62.9 Polyneuropathy, unspecified; E03.9 Hypothyroidism, unspecified; E78.5 Hyperlipidemia, unspecified; K21.9 Gastro-esophageal reflux disease without esophagitis; Z86.73 Personal history of transient ischemic attack (TIA), and cerebral infarction without residual deficits; Z98.890 Other specified postprocedural states
CPT/HCPCS: 36415; 71045; 74018; 80048; 80076; 81001; 82040; 83735; 84134; 85025; 92523; 94010; 97010; 97110; 97116; 97129; 97163; 97165; 97530; 97542; J1650; J2003; J7613; Q0162